=== PATIENT | female | born 1945 | race African-American/Black ===

== ENCOUNTER → 2022-03-19 23:16 | Outpatient (CLI) | payer MEDICARE, BC, SELFPAY | PROVIDERS: PCP Internal Medicine Adolescent Medicine; Visit Provider Internal Medicine Adolescent Medicine | DX: U07.1 COVID-19 (principal) | CPT/HCPCS: C9803; U0003; U0005 ==

== ENCOUNTER 2023-11-22 11:27 | Outpatient (CLI) | payer MEDICARE, BC, SELFPAY ==
--- NOTE | 2023-11-22 11:28 | US_ITS ---
FINAL REPORT CLINICAL HISTORY: EDEMA,CLAUDICATION,REST PAIN,HTN,HLD FINDINGS: ANKLE-BRACHIAL PRESSURE INDICES Pressure indices are as follows: RIGHT LOWER EXTREMITY: Ankle-brachial pressure index: 1.06 Comments: Normal LEFT LOWER EXTREMITY: Ankle-brachial pressure index: 1.07 Comments: Normal IMPRESSION: No evidence of significant obstructive peripheral vascular disease of the lower extremities Reviewed, Interpreted and Dictated by Jacquie Clemente MD Transcribed by Keiry Mckay Authenticated and . [facility]
== END 2023-11-22 23:59 ==
PROVIDERS: PCP Emergency Medicine; Visit Provider Nurse Practitioner
DX: R09.89 Other specified symptoms and signs involving the circulatory and respiratory systems (principal); R20.8 Other disturbances of skin sensation; R60.0 Localized edema; M79.672 Pain in left foot; M79.671 Pain in right foot
CPT/HCPCS: 93923

== ENCOUNTER 2023-12-09 11:20 | Outpatient (RCR) | payer MEDICARE, BC, SELFPAY ==
--- NOTE | 2023-12-09 13:07 | HMH.PTOPWND ---
Rehab Outpt Wound Evaluation Rehab OP Wound Evaluation Start: 12/09/23 12:57 Freq: Status: Active Protocol: Document 12/09/23 12:59 JUAN CARLOS (Rec: 12/09/23 13:07 PHOCAROLANN [id number]) E-signed By Mayito Serrato, PT Subjective/History History History This is the initial PT eval for Sari Solorzano, 78 yowf who presents with c/o B LE edema x ~ 1-2 mos with insidious onset of symptoms. She reports increased pain in B LE also, worse at nigh, and usually severe. She also reports increased numbness and tingling in B hands and feet. She reports hx of Non-Hodgkin 's Lymphoma requiring both chemo and XRT for treatment. She also has hx of HTN. Subjective Subjective Currently pain in B LE is 8/10 , at worst 10/10. 2+ pitting edema noted throughout B LE from mid-calf distally. No erythema noted at this time. She also reports recent hospitalization due to her edema. New diagnosis of cancer in past 12 No months? Lymphedema Eval Classification of Lymphedema Secondary Lymphedema Yes Stemmer's sign Stemmer's Sign yes Stage of Lymphedema Lymphedema stages Stage II (Pitting edema, increased fibrosis w/ decreased pitting) Skin Changes Dry Skin Yes Taut, Shiny Skin Yes Skin Folds Yes Discoloration of Skin Yes Other Changes Yes Pain Scale Pain Scale (0-10) 10 Radiation Therapy Has received radiation therapy yes Chemo Therapy Has received chemo therapy yes Affected Extremities Areas Affected by Lymphedema/Edema Right Lower Extremity,Left Lower Extremity Manual Lymphatic Drainage Treatment Area MLD Treatment Area Right Lower Extremity,Left Lower Extremity Wound Problems/Impairments Impairments Problems/Impairmments Palpation Tenderness,Impaired Range of Motion,Impaired Strength,Impaired Endurance, Impaired Transfers,Impaired Gait Pattern,Impaired Walking, Impaired Standing,Impaired Household Care,Increased Edema ,Lymphedema Present,Subjective C/O Pain,Impaired Self Care/ Self Management Prognosis Rehab Potential Good Clinical Impression Consistent with Diagnosis Yes Short Term Goals Number of Weeks 2 Decreased Palpation Tenderness Yes: 1/4 B lower legs Decrease Edema Yes: 1+ pitting edema B LE Decrease Subjective C/O Pain Yes: 6/10 B LE Patient to Understand Lymphedema Yes Treatment and Exercises Decrease Girth Measurments by (cm) Yes: B LE total by 5 cm ea. Network Project Manager Goals Number of Weeks 4 Decreased Palpation Tenderness Yes: 0/4 B LE Decrease Edema Yes: no pitting edema B LE Decrease Lymphedema Yes Decrease Subjective C/O Pain Yes: 12/07 B LE Patient to be Ind w/ HEP Yes Patient to Adhere Lymphedema Precautions Yes Decrease Girth Measurments by (cm) Yes: B LE total by 20 cm ea Outpatient Therapy Plan of Care Treatment Plan May Include Therapeutic Exercise Including Home Yes Exercise Program Manual Therapy Techniques Yes Neuromuscular Re-education Yes Therapeutic Activities to Return to Yes Previous Functional/Work Level Orthotics/Bracing/Splinting Yes Vasopneumatic Compression Pump Yes Manual Lymphatic Drainage Yes Eval/Re-Eval Yes Frequency Times per week 2 Duration Number of Weeks 4 Addendums This patient is a candidate for social No or vocational rehab? Patient/Guardian verbally acknowledges Yes understanding of treatment program and consents to further treatment? Patient/Guardian verbally acknowledges Yes understanding of diagnosis, prognosis and goals for treatment? Eval Complexity PT Charges 44488 - High Complexity PHYSICIAN CERTIFICATION: I certify the specified therapy services for Sari Solorzano are required, authorized, and reviewed every 30 days.
== END 2023-12-09 11:25 | disposition home or self-care (01) ==
LOC: PT 11:20
PROVIDERS: Visit Provider Nurse Practitioner
DX: R60.0 Localized edema (principal)
CPT/HCPCS: 97163

== ENCOUNTER 2024-01-31 15:00 | Outpatient (RCR) | payer MEDICARE, BC, SELFPAY | END 2024-01-31 15:05 | disposition home or self-care (01) | LOC: PT 15:00 | PROVIDERS: Visit Provider Emergency Medicine | DX: I89.0 Lymphedema, not elsewhere classified (principal) | CPT/HCPCS: 97140; 97163 ==

== ENCOUNTER 2024-08-04 19:15 | Outpatient (CLI) | payer MEDICARE, BC, SELFPAY ==
[2024-08-04 19:52] LABS: Microscopic, Urine URINE MICROSCOPIC (MICROSCOPIC)
[2024-08-04 19:54] LABS: Appearance,Urine CLEAR (Clear); Bilirubin,Urine Negative (Negative); Blood, Urine Negative (Negative); Color,Urine YELLOW (Yellow); Glucose,Urine (UA) Negative (Negative); Ketones,Urine Negative (Negative); Leukocyte Esterase,Urine 1+ (Negative); Nitrate,Urine POSITIVE (Negative); PH,Urine 5.5 (5.0-8.5); Protein,Urine Negative (Negative); Specific Gravity, Urine 1.025 (1.005-1.030); Urobilinogen,Urine 0.2 EU/dl (0.2)
[2024-08-04 20:08] LABS: Bacteria,Urine 4+ /lpf; Squamous Epithelial Cell,Urine 20-50 #/hpf (0-5); WBC,Urine TNTC #/hpf (0-3)
== END 2024-08-04 23:59 | disposition home or self-care (01) ==
LOC: LAB.DROPOF 19:16
PROVIDERS: PCP Family Medicine; Visit Provider Family Medicine
DX: R53.1 Weakness (principal); R30.0 Dysuria
CPT/HCPCS: 81001; 87086; 87088; 87186

== ENCOUNTER 2024-08-17 11:04 | Outpatient (POV) | payer MEDICARE, BC, SELFPAY ==
--- NOTE | 2024-08-17 11:23 | A.OFFVIS_ITS ---
HPI Data of Consult Patient: new to practice Consult date: 08/17/24 Requesting Physician: Bing Triplett APRN Primary Care Provider: Alvaro Mack MD Consult Narrative Reason for consult: Bilateral feet pain, history neck pain History of present illness: Ms. Solorzano is a 78 year old female who presents today as a new patient. She is a referral from Lianna Donnelly's office. Today she rates her pain a 9 out of 10. Patient states that most of her pain is all related to her feet and unrelated to any specific trauma or injury. She describes it as a heavy, throbbing, numbness.Patient states this has been going on for years. She states the pain is constant and does significantly interfere with her walking or activities of daily living such as cooking and cleaning. She denies any history of diabetes. Patient does states she has chronic lymphedema and has been dealing with a wound on her right lower leg since January. Patient states that this has improved that initially it was where you could even see the bone. Patient states she had been seeing Dr. Rico's office prior to being sent to [facility]. Patient states that they had discussed about sending her to a lymphedema clinic here however she never heard anything further on this. Patient does state that she used to go to [facility] and did get neck injections for her neck related issues. She states these were epidurals and they did significantly help. Patient has tried and failed conservative therapy including oral medication, heat and ice, topicals, at home stretching exercise for longer than 12 weeks. Patient is a resident at [facility]. Patient is currently managed with Percocet 5 mg 3 times a day, pregabalin 100 mg 3 times a day and Tylenol as needed. Patient has been prescribed in the past pregabalin, clonazepam and tramadol from outside providers. Her Dev has been reviewed. CC: Bing Triplett APRN [facility] Disclaimer: The information contained in this section may have been updated after the patient was seen, as this information can be updated by other users. Medical History (Updated 08/17/24 @ 12:00 by Bing Triplett APRN) Chronic kidney disease, stage 3 unspecified COPD (chronic obstructive pulmonary disease) History of fall Edema of both lower extremities Age-related physical debility Anxiety Bipolar 1 disorder Body mass index [BMI] 34.0-34.9, adult Chronic venous hypertension (idiopathic) with ulcer of right lower extremity Depression Hypertensive chronic kidney disease Non-Hodgkin lymphoma Macrocytic anemia H/O lymphoma HTN (hypertension), benign Surgical History H/O cataract extraction History of vaginal delivery H/O bilateral breast reduction surgery Family History (Updated 08/17/24 @ 11:33 by Ayanna Ortiz RN) Other Unknown family medical history Social History Smoking Status: Never smoker alcohol intake: never substance use type: denies use current occupational status: retired Travel in the last 8 weeks: None marital status: number of children: 2 Review of Systems Review of Systems Review of systems:: pertinent systems reviewed and negative unless documented below Review of systems (narrative): Review of Systems: General: No recent weight changes, no fever, no sleep disturbances Respiratory: No cough, no shortness of air, no recurring pulmonary infections Cardiovascular/peripheral vascular: No chest pain, no palpitations, no edema, no shortness of breath Gastrointestinal: No new onset incontinence, normal bowel movements reported Genitourinary: No new onset incontinence Musculoskeletal: Bilateral feet pain Psychiatric: [Normal mood/affect] Neurological: [Denies weakness in extremities], [denies balance issues] Meds Home Medications and Allergies Home Medications ?Medication ?Instructions ?Recorded ?Confirmed ?Type ipratropium 20 mcg-albuterol 100 1 puff inhalation Q6H 01/05/23 07/06/24 History mcg/actuation mist for inhalation (Combivent Respimat) divalproex 250 mg tablet,delayed 250 mg PO DAILY 06/23/24 07/06/24 History release fluticasone propionate 50 1 spray intranasal DAILY #16 grams 06/23/24 07/06/24 Rx mcg/actuation nasal spray,suspension furosemide 20 mg tablet 20 mg PO DAILY #30 tabs 06/23/24 07/06/24 Rx loratadine 10 mg tablet 10 mg PO DAILY #90 tabs 06/23/24 07/06/24 Rx melatonin 5 mg tablet 5 mg PO HS PRN sleep #90 tabs 06/23/24 07/06/24 Rx metoprolol tartrate 25 mg tablet 12.5 mg (1/2 x 25 mg) PO BID #30 06/23/24 07/06/24 Rx tabs omeprazole 20 mg capsule,delayed 20 mg PO DAILY #90 caps 06/23/24 07/06/24 Rx release potassium chloride 10 mEq 10 meq PO DAILY #30 tabs 06/23/24 07/06/24 Rx tablet,extended release quetiapine 25 mg tablet 25 mg PO DAILY #90 tabs 06/23/24 07/06/24 Rx ascorbic acid (vitamin C) 500 mg 500 mg PO BID 06/29/24 07/06/24 History capsule pregabalin 100 mg capsule 100 mg PO TID #90 caps 07/17/24 Rx clonazepam 0.5 mg tablet 0.5 mg PO BID #60 tabs 08/08/24 Rx oxycodone-acetaminophen 7.5 mg-325 1 tab PO TID #90 tabs 08/15/24 Rx mg tablet New Prescriptions to Start Prescriptions: Allergies Allergy/AdvReac Type Severity Reaction Status Date / Time codeine Allergy Verified 07/06/24 14:53 naproxen (From Anaprox) Allergy Verified 07/06/24 14:53 latex AdvReac Mild Verified 07/06/24 14:53 Objective Narrative: Physical Exam: General: Alert and oriented x3, no acute distress, pleasant and cooperative Lungs: Respirations even and unlabored, symmetrical chest expansion Eyes: PERRL Musculoskeletal: Flexion and extension of bilateral ankles somewhat guarded secondary to pain, decreased sensation to light touch and decreased reflexes bilaterally, moderate swelling noted to the right leg down to her foot Neurological: Speech clear, no gross sensory deficit Assessment and Plan *Assessment and plan (1) Peripheral neuropathy: Status: Acute Category: Medical Code(s): G62.9 - Polyneuropathy, unspecified (2) Decreased sensation of lower extremity: Status: Acute Category: Medical Code(s): R20.8 - Other disturbances of skin sensation (3) Lymphedema of both lower extremities: Status: Acute Category: Medical Code(s): I89.0 - Lymphedema, not elsewhere classified Plan Patient is experiencing significant pain in her bilateral feet with limited range of motion of her ankles and decreased sensation to light touch with decreased reflexes bilaterally. Patient does have significant swelling to the right lower extremity down to her foot where she does have a active wound. I did discuss with the patient due to the wound being so close to where her injection would be that I would hold off on any injections for the right extremity. Patient acknowledges understanding agrees with plan of care. I did discuss with the patient that I do believe she would benefit from posterior tibial nerve blocks. Risk and benefits were discussed with the patient and she would like to proceed forward with this plan of care. Patient has tried and failed conservative therapy including oral medications, heat and ice, topicals, at home stretching and exercise for longer than 12 weeks. I will order the patient a compounded cream and schedule her for a left posterior tibial nerve block. Patient has been instructed to contact the clinic with any concerns before the next appointment. Dr. Fung has reviewed this note and agrees with this plan of care. This note was dictated using voice recognition software and make contain errors or omissions. All injections are used with Lidocaine, Bupivacaine and Depo Medrol. Occasionally urine drug screen is needed to verify patient's compliance with our office pain contract. This is ordered based off specific treatments related to chronic pain with the potential to abuse certain medications.
[2024-08-17 11:33] VITALS: BP 96/50; PULSE 77; RESP 18; O2SAT 98; BMI 32.8
== END 2024-08-17 23:59 | disposition home or self-care (01) ==
PROVIDERS: PCP Family Medicine; Visit Provider Nurse Practitioner Family
DX: G62.9 Polyneuropathy, unspecified (principal); R20.8 Other disturbances of skin sensation; I89.0 Lymphedema, not elsewhere classified; Z73.89 Other problems related to life management difficulty
CPT/HCPCS: 99202; G0463

== ENCOUNTER 2024-09-12 10:45 | Day surgery (SDC) | payer MEDICARE, BC, SELFPAY ==
[2024-09-12 11:07] VITALS: BP 109/64; PULSE 95; RESP 18; TEMP 36.6; O2SAT 97; BMI 53.5
[2024-09-12 11:27] VITALS: BP 110/70; PULSE 94; RESP 18; O2SAT 93
[2024-09-12] MEDS: BUPIVACAINE 0.25% 10ML INJ 25 MG IJ (11:31)
[2024-09-12] MEDS: methylPREDNISolone ACETATE 80MG/ML VIAL 80 MG (11:31)
[2024-09-12] MEDS: LIDOCAINE 1% 5ML PF VIAL 5 ML (11:32)
--- NOTE | 2024-09-12 11:39 | P.PCN_ITS ---
Procedure Date: 09/12/24 Time: 11:00 Anesthesiologist:: Jasson Patton CRNA Complications:: None Pre-procedure Diagnosis:: Chronic left foot pain. Insulin-dependent diabetic. Diabetic neuropathy. Post-procedure Diagnosis:: Same. Indications for Procedure:: Patient is a very pleasant 78-year-old female who comes our clinic today for a left posterior tibial nerve block. Patient describes left foot pain as constant, dull, aching. She rates the pain 7/10. Patient presents in a wheelchair today. She resides in a group home. She status post amputation of toes bilateral feet. Procedure Details:: Details of procedure explained to the patient. The patient taken procedure room placed in the sitting position. The area over the left lateral malleolus was cleansed using chlorhexidine as a cleansing solution. Using a 25-gauge inch and half needle the left posterior tibial nerve was accessed with ease posterior to the left malleus. After negative aspiration, 8 cc of a solution containing 4 cc of 1% lidocaine 4 cc of 0.25% Marcaine and 40 mg of Depo-Medrol was injected. Patient tolerated procedure without difficulty. No complications. Plan and Disposition:: Patient was discharged without incident.
== END 2024-09-12 11:27 | disposition home or self-care (01) ==
PROVIDERS: PCP Family Medicine; Visit Provider Nurse Anesthetist, Certified Registered
DX: M79.672 Pain in left foot (principal); G89.29 Other chronic pain; E11.40 Type 2 diabetes mellitus with diabetic neuropathy, unspecified; Z79.4 Long term (current) use of insulin
CPT/HCPCS: 64450; J1010

== ENCOUNTER 2024-09-25 09:15 | Outpatient (POV) | payer MEDICARE, BC, SELFPAY ==
--- NOTE | 2024-09-25 10:17 | A.OFFVIS_ITS ---
[facility] Disclaimer: The information contained in this section may have been updated after the patient was seen, as this information can be updated by other users. Medical History (Updated 09/06/24 @ 17:30 by Alvaro Mack MD) Chronic kidney disease, stage 3 unspecified COPD (chronic obstructive pulmonary disease) History of fall Edema of both lower extremities Age-related physical debility Anxiety Bipolar 1 disorder Body mass index [BMI] 34.0-34.9, adult Chronic venous hypertension (idiopathic) with ulcer of right lower extremity Depression Hypertensive chronic kidney disease Non-Hodgkin lymphoma Macrocytic anemia H/O lymphoma HTN (hypertension), benign Surgical History H/O cataract extraction History of vaginal delivery H/O bilateral breast reduction surgery Family History Other Unknown family medical history Social History Smoking Status: Never smoker alcohol intake: never substance use type: denies use current occupational status: retired Travel in the last 8 weeks: None marital status: number of children: 2 PM Subjective & Objective Subjective Subjective:: Patient is a pleasant 78-year-old for male who presents today for follow-up of left posterior tibial nerve block on 09/12/2024. Today she rates her pain a 4 out of 10. Patient states that she has had at least 80% improvement along that left side and that the pain is definitely not as constant and not as severe. She does state that she does have a lot of issues still along the right side and states the wound on that leg is still improving however has not officially healed just yet. Patient is a resident of [facility] and does have wound management coming in daily. Patient states she never did get the compounded cream that we had ordered her. Patient is currently managed with Percocet 5 mg 3 times a day, pregabalin 100 mg 3 times a day and Tylenol as needed. Patient does state that they did have a cream at the facility that she has tried and it does help. Patient still denies any diabetes history. She states she has recently had updated labs. Her Dev has been reviewed and is appropriate. Review of Systems: General: No recent weight changes, no fever, no sleep disturbances Respiratory: No cough, no shortness of air, no recurring pulmonary infections Cardiovascular/peripheral vascular: No chest pain, no palpitations, no edema, no shortness of breath Gastrointestinal: No new onset incontinence, normal bowel movements reported Genitourinary: No new onset incontinence Musculoskeletal: Bilateral feet pain Psychiatric: [Normal mood/affect] Neurological: [Denies weakness in extremities], [denies balance issues] Pain at rest (0-10 scale): 4 Objective Objective:: Physical Exam: General: Alert and oriented x3, no acute distress, pleasant and cooperative Lungs: Respirations even and unlabored, symmetrical chest expansion Eyes: PERRL Musculoskeletal: Altered sensation to light touch to bilateral feet Neurological: Speech clear, no gross sensory deficit Has patient had previous pain injection?: Yes Percent improvement in pain since last injection: 80% Conservative treatment options previously tried: Home exercise plan Length of treatment: Longer than 12 weeks Meds Home Medications and Allergies Home Medications ?Medication ?Instructions ?Recorded ?Confirmed ?Type ipratropium 20 mcg-albuterol 100 1 puff inhalation Q6H 01/05/23 09/06/24 History mcg/actuation mist for inhalation (Combivent Respimat) divalproex 250 mg tablet,delayed 250 mg PO DAILY 06/23/24 09/06/24 History release fluticasone propionate 50 1 spray intranasal DAILY #16 grams 06/23/24 09/06/24 Rx mcg/actuation nasal spray,suspension furosemide 20 mg tablet 20 mg PO DAILY #30 tabs 06/23/24 09/06/24 Rx loratadine 10 mg tablet 10 mg PO DAILY #90 tabs 06/23/24 09/06/24 Rx melatonin 5 mg tablet 5 mg PO HS PRN sleep #90 tabs 06/23/24 09/06/24 Rx metoprolol tartrate 25 mg tablet 12.5 mg (1/2 x 25 mg) PO BID #30 06/23/24 09/06/24 Rx tabs omeprazole 20 mg capsule,delayed 20 mg PO DAILY #90 caps 06/23/24 09/06/24 Rx release potassium chloride 10 mEq 10 meq PO DAILY #30 tabs 06/23/24 09/06/24 Rx tablet,extended release quetiapine 25 mg tablet 25 mg PO DAILY #90 tabs 06/23/24 09/06/24 Rx ascorbic acid (vitamin C) 500 mg 500 mg PO BID 06/29/24 09/06/24 History capsule pregabalin 100 mg capsule 100 mg PO TID #90 caps 07/17/24 09/06/24 Rx clonazepam 0.5 mg tablet 0.5 mg PO BID #60 tabs 09/05/24 09/06/24 Rx oxycodone-acetaminophen 7.5 mg-325 1 tab PO TID #90 tabs 09/19/24 Rx mg tablet New Prescriptions to Start Prescriptions: Allergies Allergy/AdvReac Type Severity Reaction Status Date / Time codeine Allergy Verified 09/06/24 17:25 naproxen (From Anaprox) Allergy Verified 09/06/24 17:25 latex AdvReac Mild Verified 09/06/24 17:25 Assessment and Plan *Assessment and plan (1) Peripheral neuropathy: Status: Acute Category: Medical Code(s): G62.9 - Polyneuropathy, unspecified Plan I did discuss with the patient that I will get a copy of her last labs there at [facility] just to see what her A1c has been. Patient does not have any diabetes medication in her record. Patient was counseled that we can always do the posterior tibial nerve block on the right side once the wound has healed. I will follow-up with her in 6 weeks. I will also reach out to the compound pharmacy and removal and see if they can send this medication. Patient agrees with this plan of care. Patient has been instructed to contact the clinic with any concerns before the next appointment. Dr. Fung has reviewed this note and agrees with this plan of care. This note was dictated using voice recognition software and make contain errors or omissions. All injections are used with Lidocaine, Bupivacaine and Depo Medrol. Occasionally urine drug screen is needed to verify patient's compliance with our office pain contract. This is ordered based off specific treatments related to chronic pain with the potential to abuse certain medications.
[2024-09-25 11:57] VITALS: BP 123/85; PULSE 81; RESP 16; O2SAT 96; BMI 32.8
== END 2024-09-25 23:59 | disposition home or self-care (01) ==
LOC: SC.PAIN 09:16
PROVIDERS: PCP Family Medicine; Visit Provider Nurse Practitioner Family
DX: G62.9 Polyneuropathy, unspecified (principal)
CPT/HCPCS: 99212; G0463

== ENCOUNTER 2024-10-02 19:58 | Observation (INO) | payer MEDICARE, BC, SELFPAY ==
[2024-10-02] VITALS (7 sets, daily range): BP systolic 102–120; BP diastolic 60–69; PULSE 78–97; RESP 10–22; TEMP 36.6–37.5; O2SAT 97–100; BMI 33.7
--- NOTE | 2024-10-02 20:03 | XR_ITS ---
PROCEDURE INFORMATION: Exam: XR Chest Exam date and time: 10/02/2024 9:06 PM Age: 78 years old Clinical indication: Dyspnea TECHNIQUE: Imaging protocol: Radiologic exam of the chest. Views: 1 view. COMPARISON: No relevant prior studies available. FINDINGS: Tubes, catheters and devices: Left subclavian approach central venous catheter tip projected at atrial caval junction. Lungs: Unremarkable. No consolidation. Pleural spaces: Unremarkable. No pleural effusion. No pneumothorax. Heart/Mediastinum: Unremarkable. No cardiomegaly. Bones/joints: Unremarkable. IMPRESSION: No acute findings.
--- NOTE | 2024-10-02 20:03 | CT_ITS ---
PROCEDURE INFORMATION: Exam: CT Head Without Contrast Exam date and time: 10/02/2024 9:14 PM Age: 78 years old Clinical indication: Altered mental status/memory loss; Additional info: AMS TECHNIQUE: Imaging protocol: Computed tomography of the head without contrast. Radiation optimization: All CT scans at this facility use at least one of these dose optimization techniques: automated exposure control; mA and/or kV adjustment per patient size (includes targeted exams where dose is matched to clinical indication); or iterative reconstruction. COMPARISON: No relevant prior studies available. FINDINGS: Brain: No hemorrhage. Underlying periventricular white matter changes and parenchymal cortical volume loss. No mass effect. Cerebral ventricles: No ventriculomegaly. Paranasal sinuses: Visualized sinuses are unremarkable. No fluid levels. Mastoid air cells: Visualized mastoid air cells are well aerated. Bones: Unremarkable. No acute fracture. Soft tissues: Unremarkable. IMPRESSION: No acute intracranial abnormality.
--- NOTE | 2024-10-02 20:09 | HMH.EDGENADL ---
Discharge Plan Disposition Patient Disposition: Admitted Prescriptions Prescriptions: No Action Combivent Respimat 20-100 mcg/actuation mist 1 puff inhalation Q6H ascorbic acid (vitamin C) 500 mg capsule 500 mg PO BID divalproex 250 mg tablet,delayed release (DR/EC) 250 mg PO DAILY Patient Comments: TAKE 1 TABLET BY MOUTH TWICE DAILY fluticasone propionate 50 mcg/actuation spray,suspension 1 spray intranasal DAILY Qty: 16 0RF furosemide 20 mg tablet 20 mg PO DAILY Qty: 30 0RF potassium chloride 10 mEq tablet extended release 10 meq PO DAILY Qty: 30 0RF loratadine 10 mg tablet 10 mg PO DAILY Qty: 90 0RF metoprolol tartrate 25 mg tablet 12.5 mg PO BID Qty: 30 0RF melatonin 5 mg tablet 5 mg PO HS PRN (Reason: sleep) Qty: 90 0RF omeprazole 20 mg capsule,delayed release(DR/EC) 20 mg PO DAILY Qty: 90 0RF quetiapine 25 mg tablet 25 mg PO DAILY Qty: 90 0RF pregabalin 100 mg capsule 100 mg PO TID Qty: 90 2RF clonazepam 0.5 mg tablet 0.5 mg PO BID Qty: 60 2RF oxycodone-acetaminophen 7.5-325 mg tablet 1 tab PO TID Qty: 90 0RF Clinical Impressions Clinical Impression: Acute encephalopathy, Acute UTI Instructions Patient Instructions: DI for Altered Mental Status Print Language Print Language: Moroccan Discharge ED Provider: Christin Farley General Adult HPI General Chief complaint: Altered Mental Status Stated complaint: Altered Mental Status Time Seen by Provider: 10/02/24 19:58 History of Present Illness HPI narrative: Patient is a 78-year-old female brought in by EMS for acute encephalopathy sent in from her [facility], [facility]. Patient is significantly altered and history is unable to be obtained from her. According to the [facility] the patient is normally alert oriented answering questions appropriately. Related Data Home Medications ?Medication ?Instructions ?Recorded ?Confirmed ipratropium 20 mcg-albuterol 100 1 puff inhalation Q6H 01/05/23 09/25/24 mcg/actuation mist for inhalation (Combivent Respimat) divalproex 250 mg tablet,delayed 250 mg PO DAILY 06/23/24 09/25/24 release ascorbic acid (vitamin C) 500 mg 500 mg PO BID 06/29/24 09/25/24 capsule Previous Rx's ?Medication ?Instructions ?Recorded fluticasone propionate 50 1 spray intranasal DAILY #16 grams 06/23/24 mcg/actuation nasal spray,suspension furosemide 20 mg tablet 20 mg PO DAILY #30 tabs 06/23/24 loratadine 10 mg tablet 10 mg PO DAILY #90 tabs 06/23/24 melatonin 5 mg tablet 5 mg PO HS PRN sleep #90 tabs 06/23/24 metoprolol tartrate 25 mg tablet 12.5 mg (1/2 x 25 mg) PO BID #30 06/23/24 tabs omeprazole 20 mg capsule,delayed 20 mg PO DAILY #90 caps 06/23/24 release potassium chloride 10 mEq 10 meq PO DAILY #30 tabs 06/23/24 tablet,extended release quetiapine 25 mg tablet 25 mg PO DAILY #90 tabs 06/23/24 pregabalin 100 mg capsule 100 mg PO TID #90 caps 07/17/24 clonazepam 0.5 mg tablet 0.5 mg PO BID #60 tabs 09/05/24 oxycodone-acetaminophen 7.5 mg-325 1 tab PO TID #90 tabs 09/19/24 mg tablet Allergies Allergy/AdvReac Type Severity Reaction Status Date / Time codeine Allergy Verified 09/06/24 17:25 naproxen (From Anaprox) Allergy Verified 09/06/24 17:25 latex AdvReac Mild Verified 09/06/24 17:25 PFSH PFS Disclaimer: The information contained in this section may have been updated after the patient was seen, as this information can be updated by other users. Medical History (Updated 10/02/24 @ 21:47 by Christin Farley MD) Chronic kidney disease, stage 3 unspecified COPD (chronic obstructive pulmonary disease) History of fall Edema of both lower extremities Age-related physical debility Anxiety Bipolar 1 disorder Body mass index [BMI] 34.0-34.9, adult Chronic venous hypertension (idiopathic) with ulcer of right lower extremity Depression Hypertensive chronic kidney disease Non-Hodgkin lymphoma Macrocytic anemia H/O lymphoma HTN (hypertension), benign Surgical History H/O cataract extraction History of vaginal delivery H/O bilateral breast reduction surgery Family History Other Unknown family medical history Social History Smoking Status: Never smoker alcohol intake: never substance use type: denies use current occupational status: other Travel in the last 8 weeks: None marital status: number of children: 2 Have you lived/traveled outside US in past 30 days?: No Contact w/someone who lives/traveled outside US past 30 days?: No Exposure to someone with infectious disease in past 14 days?: No Do you have a fever (greater than 100.4 F or 38 C)?: No Have you tested positive for COVID-19: No Exposed to someone with COVID-19 in past 14 days?: No Do you have a sore throat?: No Do you have a cough?: No Do you have any weakness?: No Do you have any diarrhea?: No Are you experiencing any unusual bleeding?: No Do you have any muscle aches/pain?: No Do you have any abdominal pain?: No Are you experiencing loss of taste or smell?: No Other Medical History Have you received the Flu Vaccine for this season: Yes Have you received the Pneumonia Vaccine: Yes ROS Obtained: Yes All systems reviewed & no additional complaints except as documented Physical Exam General General appearance: alert and in no apparent distress Respiratory Respiratory exam: Present normal lung sounds bilaterally; Absent respiratory distress Cardiovascular Cardiovascular exam: Present regular rate and normal rhythm Abdominal Exam Abdominal exam: Present soft; Absent distention Neurological Exam Neurological exam: Present alert, CN II-XII intact and other (Patient has nonfocal she is speaking fluently but is confused GCS of 14 otherwise nonfocal); Absent oriented X3 or motor sensory deficit Medical Decision Making Medical Records Screening: Per USPSTF and CDC recommendations, given the prevalence of disease in our region, it is our hospital?s policy to screen for HIV and viral Hepatitis for all patients aged 18 and over and those with ongoing risk factors. Dev Inquiry Pt receiving controlled substance: No Vital Signs: 10/02/24 19:58 10/02/24 20:00 10/02/24 20:51 Temperature 99.5 F Temperature Source Oral Pulse Rate 92 H Pulse Rate [Right] 97 H Respiratory Rate 22 16 Blood Pressure 108/60 L 102/62 L Blood Pressure [Right Arm] 102/63 L Blood Pressure Mean [Right Arm] 76 02 Sat by Pulse Oximetry 97 98 Oxygen Delivery Method Room Air 10/02/24 21:00 Temperature Temperature Source Pulse Rate 85 Pulse Rate [Right] Respiratory Rate 13 Blood Pressure 116/65 Blood Pressure [Right Arm] Blood Pressure Mean [Right Arm] 02 Sat by Pulse Oximetry 99 Oxygen Delivery Method Lab Data Lab results reviewed: Yes I reviewed the patient's lab results. Lab Results 10/02/24 20:07: WBC 8.1, RBC 3.64 L, Hgb 11.6 L, Hct 35.7 L, MCV 98.1, MCH 31.9 H, MCHC 32.5, RDW 12.5, Plt Count 281, MPV 10.0, Neut % (Auto) 46.7, Lymph % (Auto) 34.8, [place] % (Auto) 11.7 H, Eos % (Auto) 5.8, Baso % (Auto) 0.5, Neut # (Auto) 3.8, Lymph # (Auto) 2.8, [place] # (Auto) 1.0, Eos # (Auto) 0.5 H, Baso # (Auto) 0.0, Sodium 139, Potassium 4.4, Chloride 103, Carbon Dioxide 26, Anion Gap 14.4, BUN 56 H, Creatinine 1.80 H, Estimated Creat Clear 42, Estimated GFR 27 L, Est GFR ( Amer) 33 L, Glucose 99, Calcium 8.9, Total Bilirubin 0.6, AST 28, ALT 14, Alkaline Phosphatase 109, Troponin I < 0.01, Total Protein 5.6 L, Albumin 3.7, Globulin 1.9, Albumin/Globulin Ratio 1.9 H 10/02/24 20:21: SARS-CoV-2 (PCR) Not detected, Influenza A Untype (PCR) Not detected, Influenza Type B (PCR) Not detected 10/02/24 20:32: Urine Color Dark yellow, Urine Appearance Cloudy, Urine pH 6.0, Ur Specific [place] 1.025, Urine Protein 2+ A, Urine Glucose (UA) Negative, Urine Ketones Trace, Urine Blood 2+ A, Urine Nitrate Positive A, Urine Bilirubin Negative, Urine Urobilinogen 1.0, Ur Leukocyte Esterase 3+ A 10/02/24 20:33: VBG pH 7.35, VBG pCO2 41.9, VBG pO2 107.0 H, VBG HCO3 22.4 L, VBG Total CO2 23.6, VBG O2 Saturation 97.6 H, VBG Base Excess -3.3 L, VBG Lactic Acid 1.3 10/02/24 20:07 10/02/24 20:07 Orders (Tests/Meds): ED MEDICATIONS Generic Name Dose Route Start Last Admin Trade Name Freq PRN Reason Stop Dose Admin Ceftriaxone Sodium 1 gm/ 50 mls @ 100 mls/hr 10/02/24 21:45 Sodium Chloride IV 10/02/24 22:14 ONCE ONE Discontinued Medications Generic Name Dose Route Start Last Admin Trade Name Freq PRN Reason Stop Dose Admin Lactated Ringer's 1,000 mls @ 999 mls/hr 10/02/24 20:15 10/02/24 20:43 Lactated Ringer's 1000 Ml Bag IV 10/02/24 21:15 999 mls/hr .Q1H1M FREDIS Administration ORDERS Category Date Time Status CT head/brain wo con Stat Cat Scan 10/02/24 20:03 Taken CXR --portable [XR chest portable] Stat Exams 10/02/24 20:03 Taken CBC w/Auto Diff [Complete Blood Count Auto Diff] Stat Lab 10/02/24 20:07 Completed CMP [Comprehensive Metabolic Panel] Stat Lab 10/02/24 20:07 Completed HIV Combo Stat Lab 10/02/24 20:07 Received Hepatitis C Ab Qual. W/ RFX Stat Lab 10/02/24 20:07 Received Lactate Venous Stat Lab 10/02/24 20:33 Ordered Rapid PCR Covid and Flu A/B Stat Lab 10/02/24 20:21 Completed Trop I [Troponin I] Stat Lab 10/02/24 20:07 Completed Troponin I Q3H Lab 10/02/24 23:15 Ordered Troponin I Q3H Lab 10/03/24 02:15 Ordered UA [Urinalysis and Microscopic] Stat Lab 10/02/24 20:32 Results Blood Culture Stat Micro 10/02/24 20:07 Received Urine Culture Stat Micro 10/02/24 20:32 Received Venous Blood Gas Stat RT 10/02/24 20:33 Completed Medical Decision Narrative: Acutely altered 78-year-old female with nonsensical conversations at the moment this does not appear to be an aphasia rather likely acute encephalopathy suspect most likely from a urinary tract infection or other infectious etiology as her noninvasive temperature was near 100. Will get a straight cath urinalysis chest x-ray COVID flu analysis CT scan of the head basic metabolic workup and reassess. CT scans and chest x-ray performed I personally interpreted shows no intracranial abnormality or no cardiopulmonary emergency. Patient's labs demonstrate a significant urinary tract infection. No other significant abnormality she does have a creatinine of 1.8 but no baseline creatinine to compare to. Rocephin was administered in the emergency department patient was admitted to hospital medicine for further evaluation management. Critical Care Critical Care Time Critical Care Time: Yes Attestation: On 10/02/24, the high probability of a clinically significant, sudden or life threatening deterioration of the following system(s) required my full and direct attention, intervention and personal management. The time I documented below is in addition to time spent performing reported procedures but includes the following listed in this critical care notation. Total Time Total Critical Care Time: 35
[2024-10-02 20:28] LABS: Coronavirus 19, PCR Not Detected (NotDetected); Influenza A, PCR Not Detected (NotDetected); Influenza B, PCR Not Detected (NotDetected)
[2024-10-02 20:33] LABS: Lactate Venous 1.3 mmol/L (0.4-2.0); VBG Base Excess -3.3 mmol/L (-2.4-2.3); VBG HCO3 22.4 mmol/L (23-30); VBG Oxygen Saturation 97.6 % (50-70); VBG PCO2 41.9 mmol/L (35-51); VBG PH 7.35 mmol/L (7.31-7.41); VBG Total CO2 23.6 mmol/L (23-27)
[2024-10-02 20:42] LABS: Microscopic, Urine URINE MICROSCOPIC (MICROSCOPIC)
[2024-10-02 20:42] LABS: Albumin Level 3.7 g/dl (3.5-5.0); Chloride 103 mmol/L (98-107); Potassium 4.4 mmoL/L (3.5-5.1); Sodium 139 mmol/L (136-145)
[2024-10-02] MEDS: LACTATED RINGERS 1000ML 1,000 ML 999 ML IV (20:43)
[2024-10-02 20:45] LABS: Alanine Aminotransferase 14 U/L (12-78); Albumin/Globulin Ratio 1.9 (1.1-1.8); Alkaline Phosphatase 109 U/L (38-126); Anion Gap 14.4 mEq/L (5-15); Aspartate Amino Transferase 28 U/L (14-36); Basophils % 0.5 % (0.1-2.0); Bilirubin,Total 0.6 mg/dl (0.2-1.3); Blood Urea Nitrogen 56 mg/dl (7-17); Calcium 8.9 mg/dl (8.4-10.2); Carbon Dioxide 26 mmol/L (22.0-30.0); Creatinine Clearance Estimated 42 mL/min (50-200); Eosinophils # 0.5 K/mm3 (0.0-0.4); Eosinophils % 5.8 % (0.1-12.0); Estimated Glomerular Filt Rate 27 ml/min (>60); GFR (African American) 33 ML/MIN (>60); Globulin 1.9 g/dL (1.3-3.2); Glucose 99 mg/dl (74-100); Hematocrit 35.7 % (37.0-47.0); Hemoglobin 11.6 g/dL (12.2-16.2); Lymphocytes # 2.8 K/mm3 (0.7-4.5); Lymphocytes % 34.8 % (10-50); Mean Corpuscular HGB Conc 32.5 g/dL (31.8-35.4); Mean Corpuscular Hemoglobin 31.9 pg (27.0-31.2); Mean Corpuscular Volume 98.1 fl (81-99); Monocytes % 11.7 % (1.7-9.3); Neutrophils # 3.8 K/mm3 (1.8-7.8); Neutrophils % 46.7 % (37.0-80.0); Platelet Count 281 K/mm3 (142-424); Red Blood Count 3.64 M/mm3 (4.20-5.40); Red Cell Distribution Width 12.5 % (11.5-17.5); Total Protein,Serum 5.6 g/dl (6.3-8.2); White Blood Count 8.1 K/mm3 (4.8-10.8)
[2024-10-02 20:46] LABS: Appearance,Urine CLOUDY (Clear); Bilirubin,Urine Negative (Negative); Blood, Urine 2+ (Negative); Color,Urine DARK YELLOW (Yellow); Glucose,Urine (UA) Negative (Negative); Ketones,Urine TRACE (Negative); Leukocyte Esterase,Urine 3+ (Negative); Nitrate,Urine POSITIVE (Negative); Protein,Urine 2+ (Negative); Specific Gravity, Urine 1.025 (1.005-1.030)
[2024-10-02 21:09] LABS: Troponin I < 0.01 ng/ml (0.00-0.034)
--- NOTE | 2024-10-02 21:47 | PC.NURSE ---
Patient was given a warm blanket.
[2024-10-02 22:24] LABS: HIV Combo NEGATIVE (Negative)
--- NOTE | 2024-10-02 22:24 | PC.NURSE ---
patient received a bed bath on admission. meplex placed on cocyx
[2024-10-02 22:31] LABS: Hepatitis C Ab Qual. W/ RFX NEGATIVE (Negative)
[2024-10-02 22:42] LABS: Bacteria,Urine 3+ /lpf; Squamous Epithelial Cell,Urine Occasional #/hpf (0-5); WBC,Urine 50-100 #/hpf (0-3)
--- NOTE | 2024-10-02 22:52 | PC.NURSE ---
spoke with DUNCAN Gama at [facility] to inform her of admission
[2024-10-02] MEDS: CEFTRIAXONE SODIUM 1 GM in 0.9 % SODIUM CHLORIDE 50 ML IV (23:15)
--- NOTE | 2024-10-02 23:42 | PC.NURSE ---
Attempted to call family for code status confirmation, no answer at this time.
[2024-10-03 00:17] LABS: Troponin I < 0.01 ng/ml (0.00-0.034)
[2024-10-03 03:30] VITALS: BP 109/65; PULSE 81; RESP 18; TEMP 36.3; O2SAT 98; BMI 33.2
--- NOTE | 2024-10-03 03:40 | P.HP_ITS ---
History of Present Illness *Admission Date: 10/02/24 *Reason for visit:: AMS *History of present illness: The patient is a 78-year-old female from [facility], brought in by EMS for acute encephalopathy. Review shows medical history of COPD, morbid obesity, chronic venous hypertension, depressive, hypertensive chronic kidney disease, NHL, chronic edema of bilateral lower extremities. According to retirement staff, she is normally alert and oriented but became significantly confused, speaking nonsensically over the past day. She is unable to provide her own history. Upon arrival, she was afebrile but had a non-invasive temperature near 100?F. Blood pressure and heart rate were stable, and she maintained adequate oxygenation on room air. Examination revealed no focal neurological deficits but showed disorientation and an inability to follow commands. Initial workup was notable for an elevated BUN (56) and creatinine (1.8) without a known baseline, raising concern for acute kidney injury. Urinalysis demonstrated findings consistent with a urinary tract infection (positive nitrites, leukocyte esterase, and 2+ blood). A CT scan of the head and chest X- ray showed no acute intracranial abnormalities or cardiopulmonary pathology. She was started on IV ceftriaxone in the emergency department for suspected urosepsis. Additional findings include a stage II pressure ulcer on her buttock and a chronic venous stasis ulcer on her right lower extremity. Given her altered mental status, infection, and possible renal dysfunction, she was admitted for further management. [facility] Disclaimer: The information contained in this section may have been updated after the patient was seen, as this information can be updated by other users. Medical History Chronic kidney disease, stage 3 unspecified COPD (chronic obstructive pulmonary disease) History of fall Edema of both lower extremities Age-related physical debility Anxiety Bipolar 1 disorder Body mass index [BMI] 34.0-34.9, adult Chronic venous hypertension (idiopathic) with ulcer of right lower extremity Depression Hypertensive chronic kidney disease Non-Hodgkin lymphoma Macrocytic anemia H/O lymphoma HTN (hypertension), benign Surgical History H/O cataract extraction History of vaginal delivery H/O bilateral breast reduction surgery Family History Other Unknown family medical history Social History Smoking Status: Never smoker alcohol intake: never substance use type: denies use current occupational status: other Travel in the last 8 weeks: None marital status: number of children: 2 Have you lived/traveled outside US in past 30 days?: No Contact w/someone who lives/traveled outside US past 30 days?: No Exposure to someone with infectious disease in past 14 days?: No Do you have a fever (greater than 100.4 F or 38 C)?: No Have you tested positive for COVID-19: No Exposed to someone with COVID-19 in past 14 days?: No Do you have a sore throat?: No Do you have a cough?: No Do you have any weakness?: No Do you have any diarrhea?: No Are you experiencing any unusual bleeding?: No Do you have any muscle aches/pain?: No Do you have any abdominal pain?: No Are you experiencing loss of taste or smell?: No Other Medical History Have you received the Flu Vaccine for this season: Yes Have you received the Pneumonia Vaccine: Yes Review of Systems Review of Systems Review of systems (narrative): 13 point review of systems negative outside HPI Meds Home Medications and Allergies Home Medications ?Medication ?Instructions ?Recorded ?Confirmed ?Type divalproex 250 mg tablet,delayed 250 mg PO DAILY 06/23/24 10/02/24 History release fluticasone propionate 50 1 spray intranasal DAILY #16 grams 06/23/24 10/02/24 Rx mcg/actuation nasal spray,suspension loratadine 10 mg tablet 10 mg PO DAILY #90 tabs 06/23/24 10/02/24 Rx metoprolol tartrate 25 mg tablet 12.5 mg (1/2 x 25 mg) PO BID #30 06/23/24 10/02/24 Rx tabs omeprazole 20 mg capsule,delayed 20 mg PO DAILY #90 caps 06/23/24 10/02/24 Rx release potassium chloride 10 mEq 10 meq PO DAILY #30 tabs 06/23/24 10/02/24 Rx tablet,extended release ascorbic acid (vitamin C) 500 mg 500 mg PO BID 06/29/24 10/02/24 History capsule pregabalin 100 mg capsule 100 mg PO TID #90 caps 07/17/24 10/02/24 Rx clonazepam 0.5 mg tablet 0.5 mg PO BID #60 tabs 09/05/24 10/02/24 Rx oxycodone-acetaminophen 7.5 mg-325 1 tab PO TID #90 tabs 09/19/24 10/02/24 Rx mg tablet loperamide 2 mg capsule 2 mg PO Q3HP PRN Diarrhea 10/02/24 10/03/24 History ondansetron 4 mg disintegrating 4 mg PO Q6HP PRN Nausea And 10/02/24 10/03/24 History tablet Vomiting acetaminophen 325 mg tablet 650 mg PO QIDP PRN pain and fever 10/03/24 10/03/24 History (Tylenol) acetaminophen 500 mg tablet 500 mg PO TID 10/03/24 10/03/24 History furosemide 40 mg tablet 40 mg PO DAILY 10/03/24 10/03/24 History melatonin 5 mg tablet 5 mg PO HS 10/03/24 10/02/24 History quetiapine 25 mg tablet 12.5 mg PO HS 10/03/24 10/03/24 History New Prescriptions to Start Prescriptions: Allergies Allergy/AdvReac Type Severity Reaction Status Date / Time codeine Allergy Verified 09/06/24 17:25 naproxen (From Anaprox) Allergy Verified 09/06/24 17:25 latex AdvReac Mild Verified 09/06/24 17:25 Exam Data for Last 24 hours Vital signs and Labs for Last 24 Hours: Temp Pulse Resp BP Pulse Ox O2 Del Method O2 Flow Rate 97.3 F L 81 18 109/65 L 98 Nasal Cannula 2 10/03/24 03:30 10/03/24 03:30 10/03/24 03:30 10/03/24 03:30 10/03/24 03:30 10/03/24 03:30 10/03/24 03:30 Laboratory Results - last 24 hr 10/02/24 20:07: WBC 8.1, RBC 3.64 L, Hgb 11.6 L, Hct 35.7 L, MCV 98.1, MCH 31.9 H, MCHC 32.5, RDW 12.5, Plt Count 281, MPV 10.0, Neut % (Auto) 46.7, Lymph % (Auto) 34.8, [place] % (Auto) 11.7 H, Eos % (Auto) 5.8, Baso % (Auto) 0.5, Neut # (Auto) 3.8, Lymph # (Auto) 2.8, [place] # (Auto) 1.0, Eos # (Auto) 0.5 H, Baso # (Auto) 0.0, Sodium 139, Potassium 4.4, Chloride 103, Carbon Dioxide 26, Anion Gap 14.4, BUN 56 H, Creatinine 1.80 H, Estimated Creat Clear 42, Estimated GFR 27 L, Est GFR ( Amer) 33 L, Glucose 99, Calcium 8.9, Total Bilirubin 0.6, AST 28, ALT 14, Alkaline Phosphatase 109, Troponin I < 0.01, Total Protein 5.6 L, Albumin 3.7, Globulin 1.9, Albumin/Globulin Ratio 1.9 H, HCV Ab NARAYAN w/Rflx PCR Qn Negative, HIV Ag/Ab Combo Qual Negative 10/02/24 20:21: SARS-CoV-2 (PCR) Not detected, Influenza A Untype (PCR) Not detected, Influenza Type B (PCR) Not detected 10/02/24 20:32: Urine Color Dark yellow, Urine Appearance Cloudy, Urine pH 6.0, Ur Specific [place] 1.025, Urine Protein 2+ A, Urine Glucose (UA) Negative, Urine Ketones Trace, Urine Blood 2+ A, Urine Nitrate Positive A, Urine Bilirubin Negative, Urine Urobilinogen 1.0, Ur Leukocyte Esterase 3+ A, Urine RBC 10-20, Urine WBC 50-100, Ur Squamous Epith Cells Occasional, Urine Bacteria 3+ 10/02/24 20:33: VBG pH 7.35, VBG pCO2 41.9, VBG pO2 107.0 H, VBG HCO3 22.4 L, VBG Total CO2 23.6, VBG O2 Saturation 97.6 H, VBG Base Excess -3.3 L, VBG Lactic Acid 1.3 10/02/24 23:40: Troponin I < 0.01 I & O for Last 24 hours: Intake & Output 09/30/24 10/01/24 10/02/24 10/03/24 23:59 23:59 23:59 23:59 Intake Total 230 / 230 Output Total 0 / 0 Balance 230 / 230 Weight 100.698 kg 99.337 kg Constitutional Constitutional: no acute distress *Routine HEENT Exam Head: Present normocephalic Eye: Present EOMI and PERRL ENT: Present mucous membranes moist *Routine Neck Exam Neck: Present supple; Absent lymphadenopathy *Routine Respiratory Exam Respiratory: Present CTA bilaterally *Routine Cardiovascular Exam Cardiovascular: Present RRR *Routine Abdominal Exam Abdominal: Present soft and normoactive bowel sounds; Absent tenderness *Routine Rectal Exam Rectal:: deferred *Routine Genitalia Exam Genitalia:: deferred *Routine Extremities Exam Extremities: Absent cyanosis, clubbing or edema *Routine Skin Exam Skin: Present warm; Absent rash *Routine Neurological Exam Neurological: Present alert and oriented X3 Assessment and Plan *Assessment and plan (1) Acute UTI: Status: Acute Category: Medical Code(s): N39.0 - Urinary tract infection, site not specified (2) Acute encephalopathy: Status: Acute Category: Medical Code(s): G93.40 - Encephalopathy, unspecified (3) Dysuria: Status: Acute Category: Medical Code(s): R30.0 - Dysuria (4) Age-related physical debility: Status: Acute Category: Medical Code(s): R54 - Age-related physical debility (5) Stage II pressure ulcer of buttock: Status: Acute Category: Medical Code(s): L89.302 - Pressure ulcer of unspecified buttock, stage 2 (6) Chronic venous hypertension (idiopathic) with ulcer of right lower extr emity: Status: Acute Category: Medical Code(s): I87.311 - Chronic venous hypertension (idiopathic) with ulcer of right lower extremity; L97.919 - Non-pressure chronic ulcer of unspecified part of right lower leg with unspecified severity Plan MEDICAL DECISION MAKING SUMMARY: This 78-year-old female presents with an acute change in mental status, likely due to an infectious process, most consistently pointing to a urinary tract infection given her abnormal urinalysis and low-grade fever. She also has acute kidney injury of unclear chronicity, which may be worsened by dehydration or infection. Imaging ruled out intracranial pathology. She was started on IV antibiotics and requires continued inpatient monitoring, repeat renal function tests, and supportive care. Her stage II pressure ulcer and venous stasis ulcer will also require wound care management. Acute Encephalopathy * Likely infectious in origin (UTI). * Continue monitoring mental status, reassess orientation and vitals regularly. Urinary Tract Infection * Continue IV ceftriaxone, adjust based on urine culture results. * Ensure adequate hydration with IV fluids and monitor urine output. Acute Kidney Injury (Creatinine 1.8, BUN 56, Unknown Baseline) * History of CKD 3 * Suspect baseline kidney function * Optimize fluid balance, avoiding nephrotoxic medications. * Repeat renal function tests daily. Stage II Pressure Ulcer (Buttock) * Wound care consult, apply barrier protection and reposition regularly. * Monitor for signs of infection or worsening tissue breakdown. Chronic Venous Stasis Ulcer (Right Lower Extremity) * Continue wound care with compression therapy if tolerated. * Monitor for secondary infection or worsening tissue integrity. Admission for Inpatient Care * Monitor vitals, mental status, and renal function. * Follow-up wound healing progress daily. * Consider Infectious Disease consultation if patient does not improve or cultures indicate resistant organisms. * Coordinate with retirement staff for obtaining records. Rounded on patient after nurse practitioner. Personally examined and interviewed patient. Agree with exam findings and care plan as documented.
--- NOTE | 2024-10-03 05:04 | PC.NURSE ---
Alert to self, patient sometimes more oriented than other times. No complaints from patient since arriving. Patient came up on 2L NC, O2 sat >95%. Incontinent using brief. Stage 2 to coccyx. Right lower extremity dressing CDI. Bed alarm on. Call light in reach.
--- NOTE | 2024-10-03 06:51 | PC.NURSE ---
Placed patient on room air, 98%.
[2024-10-03 07:35] LABS: Basophils % 0.4 % (0.1-2.0); Eosinophils # 0.6 K/mm3 (0.0-0.4); Hematocrit 35.8 % (37.0-47.0); Hemoglobin 11.6 g/dL (12.2-16.2); Lymphocytes # 2.7 K/mm3 (0.7-4.5); Lymphocytes % 38.2 % (10-50); Mean Corpuscular HGB Conc 32.4 g/dL (31.8-35.4); Mean Corpuscular Hemoglobin 32.7 pg (27.0-31.2); Mean Corpuscular Volume 100.8 fl (81-99); Mean Platelet Volume 9.8 fl (7.4-10.4); Monocytes # 0.8 K/mm3 (0.1-1.0); Monocytes % 11.5 % (1.7-9.3); Neutrophils # 2.9 K/mm3 (1.8-7.8); Neutrophils % 40.5 % (37.0-80.0); Platelet Count 306 K/mm3 (142-424); Red Blood Count 3.55 M/mm3 (4.20-5.40); Red Cell Distribution Width 12.4 % (11.5-17.5); White Blood Count 7.2 K/mm3 (4.8-10.8)
[2024-10-03 07:52] LABS: Chloride 103 mmol/L (98-107); Sodium 140 mmol/L (136-145)
[2024-10-03 07:53] LABS: Potassium 4.5 mmoL/L (3.5-5.1)
[2024-10-03 07:56] LABS: Anion Gap 13.5 mEq/L (5-15); Blood Urea Nitrogen 55 mg/dl (7-17); Calcium 8.8 mg/dl (8.4-10.2); Carbon Dioxide 28 mmol/L (22.0-30.0); Creatinine Clearance Estimated 54 mL/min (50-200); Estimated Glomerular Filt Rate 37 ml/min (>60); GFR (African American) 44 ML/MIN (>60); Glucose 94 mg/dl (74-100); Magnesium 2.1 mg/dl (1.6-2.3)
[2024-10-03 08:00] VITALS: BP 105/71; PULSE 98; RESP 20; TEMP 36.3; O2SAT 97
--- NOTE | 2024-10-03 08:23 | P.CONPHA_ITS ---
Pharmacy Intervention Comments: HOME MEDICATION LIST VERIFIED USING LIST FROM [facility]
--- NOTE | 2024-10-03 08:23 | HMH.PHAINT1 ---
Pharmacy Intervention Comments: HOME MEDICATION LIST VERIFIED USING LIST FROM [facility]
--- NOTE | 2024-10-03 08:39 | HMH.PTEV ---
Physical Therapy Evaluation Rehab PT IP Evaluation Start: 10/03/24 07:08 Freq: ONCE Status: Active Protocol: Document 10/03/24 08:31 MELLISA (Rec: 10/03/24 08:38 MELLISA [id number]) Subjective/History History History Per H&P: The patient is a 78- year-old female from [facility], brought in by EMS for acute encephalopathy. Review shows medical history of COPD, morbid obesity, chronic venous hypertension, depressive, hypertensive chronic kidney disease, NHL, chronic edema of bilateral lower extremities. According to [facility] staff, she is normally alert and oriented but became significantly confused, speaking nonsensically over the past day. She is unable to provide her own history. Upon arrival, she was afebrile but had a non-invasive temperature near 100?F. Blood pressure and heart rate were stable, and she maintained adequate oxygenation on room air. Examination revealed no focal neurological deficits but showed disorientation and an inability to follow commands. Subjective Subjective Pt reports she has been at [facility] since about April. Pt reports she is normally able to ambulate in the nursing with Min A using RW. Uses a w/c for longer distance (room>dining room). New diagnosis of cancer in past 12 No months? Rehab PT IP Eval Objective Appearance Patient Behavior Appropriate,Cooperative Patient Orientation Person Difficulty following instructions mild Speech Pattern Mumbled,Poor Articulation Ambulation Patient Able to Ambulate No Balance Ability to Arise Unable Sitting Balance Leans or slides in chair Transfers Bed Transfer Ability Maximum x 1 (75% assist) Rehab PT IP prob,goals,plan Problems Date of Evaluation: 10/03/24 PT IP Problems Bed Mobility,Transfers,Gait, Balance,Self care,Safety Rehab Potential Rehab Potential Good Plan PT Intervention Plan Bed Mobility,Transfers,Gait, Balance,Self care,Safety, Therapeutic Exercise Other Intervention Plan 1-2 times PT Plan Frequency Daily Duration LOS Discharge Goals Bed Transfer Ability Moderate x 1 (50% assist) Sit to Stand Chair Transfer Ability Moderate x 2 (50% assist) Discharge Plan PT Discharge Plan Pt presents below her reported PLOF. Pt would benefit from skilled inpatient PT upon returning to [facility]. Pt would benefit from PT while at [facility] to address deficits and prevent further functional decline. Eval Complexity Eval Charge Codes 70725 - Moderate Complexity PHYSICIAN CERTIFICATION: I certify the specified therapy services for Sari Solorzano are required, authorized, and reviewed every 30 days.
[2024-10-03] MEDS: ENOXAPARIN 40MG/0.4ML SYRINGE 40 MG SUBCUT (08:57)
--- NOTE | 2024-10-03 09:57 | HMH.OTEV ---
OT Inpatient Evaluation Rehab OT IP Evaluation Start: 10/03/24 07:08 Freq: ONCE Status: Active Protocol: Document 10/03/24 09:45 [facility] (Rec: 10/03/24 09:57 [facility] [id number]) Rehab OT IP Assessment Subjective History Pt oriented x 2 on arrival. Pt agreeable to engage in therapy evaluation. Pt admitted on 10/02/24 due to AMS. History and physical: Per H&P: The patient is a 78- year-old female from [facility], brought in by EMS for acute encephalopathy. Review shows medical history of COPD, morbid obesity, chronic venous hypertension, depressive, hypertensive chronic kidney disease, NHL, chronic edema of bilateral lower extremities. According to care home staff, she is normally alert and oriented but became significantly confused, speaking nonsensically over the past day. She is unable to provide her own history. Upon arrival, she was afebrile but had a non-invasive temperature near 100?F. Blood pressure and heart rate were stable, and she maintained adequate oxygenation on room air. Examination revealed no focal neurological deficits but showed disorientation and an inability to follow commands. Subjective Pt reports she has been at [facility] since about April. Pt reports she is normally able to transfer in the care home with Min A using RW. Uses a w/ c for longer distance (room> dining room). Pt has also been requiring assistance with ADLS such as lower body dressing and bathing. Pt dependent upon staff for completion of all IADLs. Objective Patient Orientation Person,Birthday Right Upper Extremity Gross ROM Min Limitation <25% Left Upper Extremity Gross ROM Min Limitation <25% Shoulder ROM Limitations Muscle Weakness Elbow ROM Limitations Muscle Weakness Wrist Limitations of Range of Motion Muscle Weakness Bed Mobility bed mobility-scooting,bed mobility - supine/sit,bed mobility - rolling Assist Level Maximum x 1 (75% assist) Rehab OT IP prob,goals,plan Problems Date of Evaluation: 10/03/24 OT IP Problems Bed Mobility,Transfers,Balance ,Self care,Safety Rehab Potential Rehab Potential Good Equipment Needs Assistive Devices Rolling / Wheeled Walker Plan OT intervention Plan Bed Mobility,Transfers,Balance ,Self care,Safety,Therapeutic Exercise OT Plan Frequency Daily Duration LOS Discharge Goals Bed Mobility Ability Assistance x1 Sit to Stand Chair Transfer Ability Moderate x 1 (50% assist) Chair Transfer Ability Moderate x 1 (50% assist) Chair Transfer Technique Sit to/from Ambulatory Chair Transfer Assistive Devices Rolling Walker Lower Body Dressing Ability Moderate Assistance Upper Body Dressing Ability Minimal Assistance Bathing Ability Moderate Assistance Performing Toilet Hygiene Ability Moderate Assistance Overall Commode/Toilet Transfer Ability Moderate Assistance Commode/Toilet Transfer Technique Sit to/from Ambulatory Discharge Plan OT Discharge Plan Pt presents below her reported PLOF. Pt would benefit from skilled inpatient OT upon returning to care home. Pt would benefit from OT while at [facility] to address deficits and prevent further functional decline. Eval Complexity Eval Charge Codes 32304 - Moderate Complexity PHYSICIAN CERTIFICATION: I certify the specified therapy services for Sari Solorzano are required, authorized, and reviewed every 30 days.
--- NOTE | 2024-10-03 10:16 | DIET.NUTRFU ---
RDverified diet at senior living-regular consistency with thin liquids. She is also noted to have a stage II pressure ulcer to buttock, takes prostat at [place] to promote haling will continue during stay. Labs reviewed
[2024-10-03] MEDS: OXYCODONE 7.5MG W/APAP 325MG TABLET 1 EACH PO ×2 (12:12→20:32)
[2024-10-03] MEDS: DIVALPROEX 250MG (Delayed-Release) TABLET 250 MG PO (12:12)
[2024-10-03] MEDS: PREGABALIN 100MG CAPSULE 100 MG PO ×2 (12:12→20:32)
--- NOTE | 2024-10-03 12:58 | SW/DCPLANNER ---
Addendum entered by Tabitha Hardwick 10/04/24 09:08: I have updated Diana hanna/ Nilton Santos that patient return today. Original Note: Patient is from [facility]. PT/OT suggests rehab when discharged. Updates sent to Nilton. DUNCAN Mcknight
[2024-10-03 13:39] VITALS: BMI 33.2
--- NOTE | 2024-10-03 14:01 | HMH.PTWOUND ---
Rehab Inpt Wound Evaluation Rehab IP Wound Evaluation Start: 10/03/24 08:43 Freq: ONCE Status: Active Protocol: Document 10/03/24 13:52 JUAN CARLOS (Rec: 10/03/24 14:00 PHOCAROLANN [id number]) Rehab PT Wound Assessment Subjective Subjective Per H&P: The patient is a 78- year-old female from [facility], brought in by EMS for acute encephalopathy. Review shows medical history of COPD, morbid obesity, chronic venous hypertension, depressive, hypertensive chronic kidney disease, NHL, chronic edema of bilateral lower extremities. According to senior living staff, she is normally alert and oriented but became significantly confused, speaking nonsensically over the past day. She is unable to provide her own history. Upon arrival, she was afebrile but had a non-invasive temperature near 100?F. Blood pressure and heart rate were stable, and she maintained adequate oxygenation on room air. Examination revealed no focal neurological deficits but showed disorientation and an inability to follow commands. Pt presents with pressure injury to the coccyx and R lateral lopez wound upon admission. Wound Right Lateral Lopez Wound Type Stasis Ulcer Is This a Chronic Wound Yes Wound Length (cm) 2.0 Wound Width (cm) 2.0 Wound Depth (cm) 0.1 Wound Bed Appearance Beefy Red Wound Margins Description not fully visualized Primary Dressing Absorbant Pad Wound Secondary Dressing Type Gauze Roll/Wrap,Elastic Bandage Dressing Change Patient Tolerance Tolerated Well Sacrum Wound Type Pressure Ulcer Is This a Chronic Wound Yes Wound Staging Stage II Query Text:Stage I - Unbroken, red skin, no blanching. Stage II - Skin broken, superficial skin loss involving epidermis alone or also dermis. Partial loss of skin layers. Stage III - Pressure area involves epidermis, dermis and subcutaneous tissue, full thickness skin loss. Stage IV - Pressure area involves epidermis, subcutaneous tissue, bone and other supportive tissue. Full thickness skin loss with extensive destruction of underlying tissue and structures. Wound Length (cm) 2.0 Wound Width (cm) 1.0 Wound Depth (cm) 0.1 Wound Bed Appearance [place] Wound Margins Description Well Defined Wound Drainage Description Serous Drainage Amount Small Primary Dressing Composite Dressing Change Patient Tolerance Tolerated Well Plan/Recommendation Comment R lower leg wound has dressing in place from SNF with unknown topical dressing in place and was therefore not well visualized at this time. Dressing is clean, dry and intact and will remain in place for 1-2 more days. If pt remains in hospital past this time, will re-address this wound. Current dressing is appropriate and there is no current need to subject pt to painful cleansing or care of the wound until necessary. [facility] staff dressing sacral wound appropriately at this time. Eval Complexity Eval Charge Codes 90435 - High Complexity PHYSICIAN CERTIFICATION: I certify the specified therapy services for Sari Solorzano are required, authorized, and reviewed every 30 days.
[2024-10-03 16:00] VITALS: BP 118/59; PULSE 82; RESP 20; TEMP 36.6; O2SAT 100
--- NOTE | 2024-10-03 18:41 | EXP.ACUTE.PN ---
Subjective *Date: 10/03/24 *Time: 21:56 Interval history: Patient opens eyes to voice and tactile stimulation. Weak voice on response but said she felt okay this morning. Denied any focal pain. Told me her name but was only oriented to self. Afebrile. No nausea or vomiting. Stable on room air Medical Exam Vital signs and Labs for Last 24 Hours: Vital Signs Temp Pulse Pulse Resp BP BP Pulse Ox 10/03/24 17:00 10/03/24 16:00 97.8 F 82 20 118/59 L 100 10/03/24 15:00 10/03/24 13:00 10/03/24 11:00 10/03/24 09:00 10/03/24 08:57 10/03/24 08:00 97.4 F L 98 H 20 105/71 L 97 10/03/24 06:42 10/03/24 05:00 10/03/24 03:30 97.3 F L 81 18 109/65 L 98 10/03/24 03:00 10/03/24 00:52 10/02/24 23:00 10/02/24 22:20 97.9 F 80 18 116/63 97 10/02/24 21:55 99.5 F 78 10 L 120/69 10/02/24 21:54 10/02/24 21:30 82 10 L 120/69 100 10/02/24 21:00 85 13 116/65 99 10/02/24 20:51 16 102/62 L 10/02/24 20:00 92 H 108/60 L 98 10/02/24 19:58 99.5 F 97 H 22 102/63 L 97 O2 Del Method O2 Flow Rate 10/03/24 17:00 Room Air 10/03/24 16:00 Room Air 10/03/24 15:00 Room Air 10/03/24 13:00 Room Air 10/03/24 11:00 Room Air 10/03/24 09:00 Room Air 10/03/24 08:57 Room Air 10/03/24 08:00 Room Air 10/03/24 06:42 Room Air 10/03/24 05:00 Nasal Cannula 2 10/03/24 03:30 Nasal Cannula 2 10/03/24 03:00 Nasal Cannula 2 10/03/24 00:52 Nasal Cannula 2 10/02/24 23:00 Nasal Cannula 2 10/02/24 22:20 Nasal Cannula 2 10/02/24 21:55 Room Air 10/02/24 21:54 Nasal Cannula 2 10/02/24 21:30 Nasal Cannula 2 10/02/24 21:00 10/02/24 20:51 10/02/24 20:00 10/02/24 19:58 Room Air Intake and Output 10/03/24 10/03/24 10/03/24 07:59 15:59 23:59 Intake Total 230 / 830 600 / 830 Output Total 0 / 0 0 / 0 Balance 230 / 830 600 / 830 Intake: Intake, Oral Amount 180 / 780 600 / 780 Intake, Total IV Amount 50 / 50 Ceftriaxone 1 gm 1 gm In 0.9 % 50 / 50 Sodium Chloride 50 ml @ 100 mls /hr IV Q24H [facility] Rx#:[id number] Output: Output, Urine Amount 0 / 0 0 / 0 Other: Number of Unmeasured Voids 1 1 Number of Bowel Movements 1 1 Weight 99.337 kg 99.33 kg Patient Weight 10/03/24 23:59 Weight 99.33 kg Laboratory Results - last 24 hr 10/02/24 20:07: WBC 8.1, RBC 3.64 L, Hgb 11.6 L, Hct 35.7 L, MCV 98.1, MCH 31.9 H, MCHC 32.5, RDW 12.5, Plt Count 281, MPV 10.0, Neut % (Auto) 46.7, Lymph % (Auto) 34.8, [place] % (Auto) 11.7 H, Eos % (Auto) 5.8, Baso % (Auto) 0.5, Neut # (Auto) 3.8, Lymph # (Auto) 2.8, [place] # (Auto) 1.0, Eos # (Auto) 0.5 H, Baso # (Auto) 0.0, Sodium 139, Potassium 4.4, Chloride 103, Carbon Dioxide 26, Anion Gap 14.4, BUN 56 H, Creatinine 1.80 H, Estimated Creat Clear 42, Estimated GFR 27 L, Est GFR ( Amer) 33 L, Glucose 99, Calcium 8.9, Total Bilirubin 0.6, AST 28, ALT 14, Alkaline Phosphatase 109, Troponin I < 0.01, Total Protein 5.6 L, Albumin 3.7, Globulin 1.9, Albumin/Globulin Ratio 1.9 H, HCV Ab NARAYAN w/Rflx PCR Qn Negative, HIV Ag/Ab Combo Qual Negative 10/02/24 20:21: SARS-CoV-2 (PCR) Not detected, Influenza A Untype (PCR) Not detected, Influenza Type B (PCR) Not detected 10/02/24 20:32: Urine Color Dark yellow, Urine Appearance Cloudy, Urine pH 6.0, Ur Specific [place] 1.025, Urine Protein 2+ A, Urine Glucose (UA) Negative, Urine Ketones Trace, Urine Blood 2+ A, Urine Nitrate Positive A, Urine Bilirubin Negative, Urine Urobilinogen 1.0, Ur Leukocyte Esterase 3+ A, Urine RBC 10-20, Urine WBC 50-100, Ur Squamous Epith Cells Occasional, Urine Bacteria 3+ 10/02/24 20:33: VBG pH 7.35, VBG pCO2 41.9, VBG pO2 107.0 H, VBG HCO3 22.4 L, VBG Total CO2 23.6, VBG O2 Saturation 97.6 H, VBG Base Excess -3.3 L, VBG Lactic Acid 1.3 10/02/24 23:40: Troponin I < 0.01 10/03/24 07:18: WBC 7.2, RBC 3.55 L, Hgb 11.6 L, Hct 35.8 L, MCV 100.8 H, MCH 32.7 H, MCHC 32.4, RDW 12.4, Plt Count 306, MPV 9.8, Neut % (Auto) 40.5, Lymph % (Auto) 38.2, [place] % (Auto) 11.5 H, Eos % (Auto) 9.0, Baso % (Auto) 0.4, Neut # (Auto) 2.9, Lymph # (Auto) 2.7, [place] # (Auto) 0.8, Eos # (Auto) 0.6 H, Baso # (Auto) 0.0, Sodium 140, Potassium 4.5, Chloride 103, Carbon Dioxide 28, Anion Gap 13.5, BUN 55 H, Creatinine 1.40 H D, Estimated Creat Clear 54, Estimated GFR 37 L, Est GFR ( Amer) 44 L D, Glucose 94, Calcium 8.8, Magnesium 2.1 I & O for Labs for Last 24 Hours: Intake & Output 09/30/24 10/01/24 10/02/24 10/03/24 23:59 23:59 23:59 23:59 Intake Total 830 / 830 Output Total 0 / 0 Balance 830 / 830 Weight 100.698 kg 99.33 kg Constitutional: Present no acute distress, obese, chronically ill appearing and somnolent Head: Present atraumatic and normocephalic ENT: Present normal exam Respiratory: Present normal respiratory effort; Absent rhonchi, wheezes or crackles Cardiac: Present Reg Rate and Rhythm GI: Present soft and normal bowel sounds; Absent distention or tenderness Extremities: Present normal inspection, full ROM and edema Comment:: Right leg in bandage Skin: Present intact; Absent erythema Neuro: Present Grossly Intact, alert and moves all extremities Comment:: Oriented to self. Responds to voice. Assessment and Plan *Assessment and plan (1) Acute UTI: Status: Acute Category: Medical Code(s): N39.0 - Urinary tract infection, site not specified (2) Acute encephalopathy: Status: Acute Category: Medical Code(s): G93.40 - Encephalopathy, unspecified (3) Dysuria: Status: Acute Category: Medical Code(s): R30.0 - Dysuria (4) Age-related physical debility: Status: Acute Category: Medical Code(s): R54 - Age-related physical debility (5) Stage II pressure ulcer of buttock: Status: Acute Category: Medical Code(s): L89.302 - Pressure ulcer of unspecified buttock, stage 2 (6) Chronic venous hypertension (idiopathic) with ulcer of right lower extremity: Status: Acute Category: Medical Code(s): I87.311 - Chronic venous hypertension (idiopathic) with ulcer of right lower extremity; L97.919 - Non-pressure chronic ulcer of unspecified part of right lower leg with unspecified severity Plan This 78-year-old female presents with an acute change in mental status, likely due to an infectious process, most consistently pointing to a urinary tract infection given her abnormal urinalysis and low-grade fever. She also has acute kidney injury of unclear chronicity, which may be worsened by dehydration or infection. Imaging ruled out intracranial pathology. She was started on IV antibiotics and requires continued inpatient monitoring, repeat renal function tests, and supportive care. Her stage II pressure ulcer and venous stasis ulcer will also require wound care management. Acute Encephalopathy Urinary tract infection - White count 7.2 this morning. Hemoglobin 11.6. Repeat CBC, CMP, magnesium ordered for the morning. Urinalysis grossly abnormal with positive nitrate, 3+ leuk esterase, 3+ bacteria and 50-100 white cells -Previous urine culture in July with Proteus. Repeat urine culture pending. -Previous culture sensitive to cephalosporins. Resistant to janelle quinolones; continue empiric therapy with ceftriaxone 1 g IV daily. Acute Kidney Injury (Creatinine 1.8, BUN 56, Unknown Baseline) -BUN 55, creatinine 1.4 this morning, improved from admission. Repeat labs ordered for the morning with CMP and magnesium. Magnesium 2.1 today. Potassium 4.5 Stage II Pressure Ulcer (Buttock) Chronic venous stasis ulcer right lower extremity -Wound care evaluated today, nursing performing dressing changes. Depression: Continue medications with Lyrica 100 mg 3 today, melatonin 5 Maribeth nightly divalproex 250 mg daily, and Klonopin 0.5 mg twice daily as needed. Monitor for oversedation given polypharmacy. Hypertension: Blood pressure well-controlled at this time. Continue metoprolol tartrate 12.5mg twice a day Chronic pain: Oxycodone 7-1/2 mg 3 times a day per home regimen, resume as needed for severe pain given her chronic wounds. Full code Cardiac diet
[2024-10-03 20:00] VITALS: BP 121/69; PULSE 91; RESP 17; TEMP 36.6; O2SAT 99
[2024-10-03] MEDS: PRO-STAT AWC 30ML LIQUID PACKET 30 ML PO (20:29)
[2024-10-03] MEDS: CEFTRIAXONE 1 GM 1 GM in 0.9 % SODIUM CHLORIDE 50 ML IV (20:29)
[2024-10-03] MEDS: METOPROLOL TARTRATE 25MG TABLET 12.5 MG PO (20:29)
[2024-10-03] MEDS: MELATONIN 5MG TABLET 5 MG PO (20:30)
[2024-10-03] MEDS: QUETIAPINE 25MG TABLET 12.5 MG PO (20:30)
[2024-10-03] MEDS: PANTOPRAZOLE 40MG TABLET 40 MG PO (20:30)
[2024-10-04] VITALS: BP 107/62; PULSE 77; RESP 16; TEMP 36.3; O2SAT 98
--- NOTE | 2024-10-04 02:58 | PC.NURSE ---
PT IS RESTING IN BED. ALERT AND ORIENTED X3. PT WILL HAVE PERIODS OF CONFUSION. TURNED AND REPOSITIONED IN BED. STAGE 2 NOTED TO COCCYX. DRESSING NOTED TO RLE. LUNG SOUNDS CLEAR. ABDOMEN SOFT/NON TENDER WITH ACTIVE BOWEL SOUNDS. WILL CONTINUE TO MONITOR.
[2024-10-04 04:00] VITALS: BP 125/58; PULSE 77; RESP 16; TEMP 36.9; O2SAT 98; BMI 33.2
[2024-10-04 06:50] LABS: Basophils % 0.5 % (0.1-2.0); Eosinophils # 0.5 K/mm3 (0.0-0.4); Eosinophils % 9.5 % (0.1-12.0); Hemoglobin 10.6 g/dL (12.2-16.2); Lymphocytes # 2.6 K/mm3 (0.7-4.5); Lymphocytes % 47.2 % (10-50); Mean Corpuscular HGB Conc 32.1 g/dL (31.8-35.4); Mean Corpuscular Hemoglobin 32.3 pg (27.0-31.2); Mean Corpuscular Volume 100.6 fl (81-99); Mean Platelet Volume 9.9 fl (7.4-10.4); Monocytes # 0.7 K/mm3 (0.1-1.0); Monocytes % 13.3 % (1.7-9.3); Neutrophils # 1.6 K/mm3 (1.8-7.8); Neutrophils % 29.1 % (37.0-80.0); Platelet Count 221 K/mm3 (142-424); Red Blood Count 3.28 M/mm3 (4.20-5.40); Red Cell Distribution Width 12.4 % (11.5-17.5); White Blood Count 5.6 K/mm3 (4.8-10.8)
[2024-10-04 06:56] LABS: Chloride 105 mmol/L (98-107); Sodium 137 mmol/L (136-145)
[2024-10-04 06:57] LABS: Potassium 4.4 mmoL/L (3.5-5.1)
[2024-10-04 06:59] LABS: Blood Urea Nitrogen 47 mg/dl (7-17); Creatinine Clearance Estimated 75 mL/min (50-200); Estimated Glomerular Filt Rate 61 ml/min (>60); GFR (African American) 74 ML/MIN (>60)
[2024-10-04 07:00] LABS: Anion Gap 11.4 mEq/L (5-15); Calcium 8.4 mg/dl (8.4-10.2); Carbon Dioxide 25 mmol/L (22.0-30.0); Glucose 81 mg/dl (74-100)
[2024-10-04 08:00] VITALS: BP 95/54; PULSE 92; RESP 18; TEMP 36.3; O2SAT 99
--- NOTE | 2024-10-04 08:09 | EXP.DC.SUM ---
General Admission date:: 10/02/24 Discharge date: 10/04/24 HPI HPI HPI: The patient is a 78-year-old female from [facility], brought in by EMS for acute encephalopathy. Review shows medical history of COPD, morbid obesity, chronic venous hypertension, depressive, hypertensive chronic kidney disease, NHL, chronic edema of bilateral lower extremities. According to prison staff, she is normally alert and oriented but became significantly confused, speaking nonsensically over the past day. She is unable to provide her own history. Upon arrival, she was afebrile but had a non-invasive temperature near 100?F. Blood pressure and heart rate were stable, and she maintained adequate oxygenation on room air. Examination revealed no focal neurological deficits but showed disorientation and an inability to follow commands. Initial workup was notable for an elevated BUN (56) and creatinine (1.8) without a known baseline, raising concern for acute kidney injury. Urinalysis demonstrated findings consistent with a urinary tract infection (positive nitrites, leukocyte esterase, and 2+ blood). A CT scan of the head and chest X-ray showed no acute intracranial abnormalities or cardiopulmonary pathology. She was started on IV ceftriaxone in the emergency department for suspected urosepsis. Additional findings include a stage II pressure ulcer on her buttock and a chronic venous stasis ulcer on her right lower extremity. Given her altered mental status, infection, and possible renal dysfunction, she was admitted for further management. Hospital Course Hospital Course Hospital Course: This 78-year-old female presents with an acute change in mental status, likely due to an infectious process, most consistently pointing to a urinary tract infection given her abnormal urinalysis and low-grade fever. She also has acute kidney injury of unclear chronicity, which may be worsened by dehydration or infection. Imaging ruled out intracranial pathology. She was started on IV antibiotics and requires continued inpatient monitoring, repeat renal function tests, and supportive care. Her stage II pressure ulcer and venous stasis ulcers were evaluated by wound care. Continue dressing changes. Urine culture still pending however treatment based on previous culture from July with sensitivities. Transition to oral antibiotics. Mentation improved to baseline. Stable to return back to prison for further management. Problems addressed as follows: Acute Encephalopathy, resolved Urinary tract infection -White count normalized during admission, 5.6 on day of discharge. Hemoglobin stable at 10.6. Urine initially grossly abnormal, was initiated on ceftriaxone. Urinalysis grossly abnormal with positive nitrate, 3+ leuk esterase, 3+ bacteria and 50-100 white cells. Transitioned from ceftriaxone to cefdinir to complete 7-day course given previous culture from July positive for Proteus with FATUMA sensitivity. Still awaiting urine culture and sensitivity from this visit. Will follow after discharge. Given improvement in mentation, back to baseline, stable to discharge to nursing facility for further management as an outpatient. Acute Kidney Injury (Creatinine 1.8, BUN 56, Unknown Baseline) -Kidney function and electrolytes showed improvement. BUN improved to 47, creatinine 0.9. Continue aggressive oral hydration. Would benefit from repeat CBC, CMP, magnesium in 1 week. Stage II Pressure Ulcer (Buttock) Chronic venous stasis ulcer right lower extremity -Wound care evaluated, continue with daily dressing changes. Depression: Continue medications with Lyrica 100 mg 3 today, melatonin 5 Maribeth nightly divalproex 250 mg daily, and Klonopin 0.5 mg twice daily as needed. Monitor for oversedation given polypharmacy. Hypertension: Blood pressure well-controlled at this time. Continue metoprolol tartrate 12.5mg twice a day Chronic pain: Oxycodone 7-1/2 mg 3 times a day per home regimen, resume as needed for severe pain given her chronic wounds. Total time spent on discharge 32 minutes in counseling, documentation, chart review, and direct care with patient. Exam Data for Last 24 hours Vital signs and Labs for Last 24 Hours: Temp Pulse Resp BP Pulse Ox O2 Del Method O2 Flow Rate 98.5 F 77 16 125/58 L 98 Room Air 2 10/04/24 04:00 10/04/24 04:00 10/04/24 04:00 10/04/24 04:00 10/04/24 04:00 10/04/24 06:52 10/03/24 05:00 Laboratory Results - last 24 hr 10/04/24 06:12: WBC 5.6, RBC 3.28 L, Hgb 10.6 L, Hct 33.0 L, MCV 100.6 H, MCH 32.3 H, MCHC 32.1, RDW 12.4, Plt Count 221 D, MPV 9.9, Neut % (Auto) 29.1 L, Lymph % (Auto) 47.2, [place] % (Auto) 13.3 H, Eos % (Auto) 9.5, Baso % (Auto) 0.5, Neut # (Auto) 1.6 L, Lymph # (Auto) 2.6, [place] # (Auto) 0.7, Eos # (Auto) 0.5 H, Baso # (Auto) 0.0, Sodium 137, Potassium 4.4, Chloride 105, Carbon Dioxide 25, Anion Gap 11.4, BUN 47 H, Creatinine 0.90 D, Estimated Creat Clear 75, Estimated GFR 61, Est GFR ( Amer) 74 D, Glucose 81, Calcium 8.4 I & O for Last 24 hours: Intake & Output 10/01/24 10/02/24 10/03/24 10/04/24 23:59 23:59 23:59 23:59 Intake Total 1070 / 1070 290 / 290 Output Total 250 / 250 Balance 820 / 820 290 / 290 Weight 100.698 kg 99.33 kg 99.337 kg Microbiology Reports for the Last 24 Hours: Microbiology 10/02/24 20:07 Blood Blood Culture - Preliminary NO GROWTH AFTER 24 HOURS 10/02/24 20:07 Blood Blood Culture - Preliminary NO GROWTH AFTER 24 HOURS Constitutional Constitutional: no acute distress, obese, chronically ill appearing and cooperative *Routine HEENT Exam Head: Present normocephalic Eye: Present EOMI and PERRL ENT: Present mucous membranes moist *Routine Neck Exam Neck: Present supple; Absent lymphadenopathy *Routine Respiratory Exam Respiratory: Present CTA bilaterally; Absent respiratory distress, rhonchi, wheezes or crackles *Routine Cardiovascular Exam Cardiovascular: Present RRR *Routine Abdominal Exam Abdominal: Present soft and normoactive bowel sounds; Absent tenderness *Routine Rectal Exam Patient deferred: visual exam *Routine Exam Patient deferred: external exam *Routine Extremities Exam Extremities: Absent cyanosis, clubbing or edema Comments: Edema bilateral lower extremities. Stasis ulcer on right leg Routine Back/Spine/Pelvis Exam Comments: Coccygeal decubitus wound *Routine Skin Exam Skin: Present intact and warm; Absent cyanosis, erythema or rash *Routine Neurological Exam Neurological: Present alert and moving all extremities; Absent altered mental status Comments: Baseline mentation Routine Psychiatric Exam Psychiatric: Present normal affect Results Data Completed and Pending Labs on day of discharge: Labs from last 24 hours 10/04/24 06:12 WBC 5.6 RBC 3.28 L Hgb 10.6 L Hct 33.0 L MCV 100.6 H MCH 32.3 H MCHC 32.1 RDW 12.4 Plt Count 221 D MPV 9.9 Neut % (Auto) 29.1 L Lymph % (Auto) 47.2 [place] % (Auto) 13.3 H Eos % (Auto) 9.5 Baso % (Auto) 0.5 Neut # (Auto) 1.6 L Lymph # (Auto) 2.6 [place] # (Auto) 0.7 Eos # (Auto) 0.5 H Baso # (Auto) 0.0 Sodium 137 Potassium 4.4 Chloride 105 Carbon Dioxide 25 Anion Gap 11.4 BUN 47 H Creatinine 0.90 D Estimated Creat Clear 75 Estimated GFR 61 Est GFR ( Amer) 74 D Glucose 81 Calcium 8.4 Preliminary micro results at discharge 10/02/24 20:07 Blood Culture - Preliminary Blood NO GROWTH AFTER 24 HOURS 10/02/24 20:07 Blood Culture - Preliminary Blood NO GROWTH AFTER 24 HOURS DS: Diagnosis Discharge Diagnosis (1) Acute UTI: Status: Acute Code(s): N39.0 - Urinary tract infection, site not specified (2) Acute encephalopathy: Status: Acute Code(s): G93.40 - Encephalopathy, unspecified (3) Dysuria: Status: Acute Code(s): R30.0 - Dysuria (4) Age-related physical debility: Status: Acute Code(s): R54 - Age-related physical debility (5) Stage II pressure ulcer of buttock: Status: Acute Code(s): L89.302 - Pressure ulcer of unspecified buttock, stage 2 (6) Chronic venous hypertension (idiopathic) with ulcer of right lower extremity: Status: Acute Code(s): I87.311 - Chronic venous hypertension (idiopathic) with ulcer of right lower extremity; L97.919 - Non-pressure chronic ulcer of unspecified part of right lower leg with unspecified severity Meds Home Medications and Allergies Home Medications ?Medication ?Instructions ?Recorded ?Confirmed ?Type divalproex 250 mg tablet,delayed 250 mg PO DAILY 06/23/24 10/02/24 History release fluticasone propionate 50 1 spray intranasal DAILY #16 grams 06/23/24 10/02/24 Rx mcg/actuation nasal spray,suspension loratadine 10 mg tablet 10 mg PO DAILY #90 tabs 06/23/24 10/02/24 Rx metoprolol tartrate 25 mg tablet 12.5 mg (1/2 x 25 mg) PO BID #30 06/23/24 10/02/24 Rx tabs omeprazole 20 mg capsule,delayed 20 mg PO DAILY #90 caps 06/23/24 10/02/24 Rx release potassium chloride 10 mEq 10 meq PO DAILY #30 tabs 06/23/24 10/02/24 Rx tablet,extended release ascorbic acid (vitamin C) 500 mg 500 mg PO BID 06/29/24 10/02/24 History capsule pregabalin 100 mg capsule 100 mg PO TID #90 caps 07/17/24 10/02/24 Rx clonazepam 0.5 mg tablet 0.5 mg PO BID #60 tabs 09/05/24 10/02/24 Rx oxycodone-acetaminophen 7.5 mg-325 1 tab PO TID #90 tabs 09/19/24 10/02/24 Rx mg tablet loperamide 2 mg capsule 2 mg PO Q3HP PRN Diarrhea 10/02/24 10/03/24 History ondansetron 4 mg disintegrating 4 mg PO Q6HP PRN Nausea And 10/02/24 10/03/24 History tablet Vomiting acetaminophen 325 mg tablet 650 mg PO QIDP PRN pain and fever 10/03/24 10/03/24 History (Tylenol) acetaminophen 500 mg tablet 500 mg PO TID 10/03/24 10/03/24 History furosemide 40 mg tablet 40 mg PO DAILY 10/03/24 10/03/24 History melatonin 5 mg tablet 5 mg PO HS 10/03/24 10/02/24 History quetiapine 25 mg tablet 12.5 mg PO HS 10/03/24 10/03/24 History cefdinir 300 mg capsule 300 mg PO BID 5 days #10 caps 10/04/24 Rx New Prescriptions to Start Prescriptions: Rui Andrea Allergies Allergy/AdvReac Type Severity Reaction Status Date / Time codeine Allergy Verified 09/06/24 17:25 naproxen (From Anaprox) Allergy Verified 09/06/24 17:25 latex AdvReac Mild Verified 09/06/24 17:25 Discharge Plan Disposition Patient Disposition: [facility] Condition: Fair Discharge Order Discharge Orders: Discharge Order (Routine); Ordered 10/04/24 Ordered By: Rui Finley Follow up Plan Prescriptions/Medication Reconciliation: New cefdinir 300 mg capsule 300 mg PO BID 5 Days Qty: 10 0RF Continued ascorbic acid (vitamin C) 500 mg capsule 500 mg PO BID divalproex 250 mg tablet,delayed release (DR/EC) 250 mg PO DAILY Patient Comments: TAKE 1 TABLET BY MOUTH TWICE DAILY fluticasone propionate 50 mcg/actuation spray,suspension 1 spray intranasal DAILY Qty: 16 0RF potassium chloride 10 mEq tablet extended release 10 meq PO DAILY Qty: 30 0RF loratadine 10 mg tablet 10 mg PO DAILY Qty: 90 0RF metoprolol tartrate 25 mg tablet 12.5 mg PO BID Qty: 30 0RF omeprazole 20 mg capsule,delayed release(DR/EC) 20 mg PO DAILY Qty: 90 0RF pregabalin 100 mg capsule 100 mg PO TID Qty: 90 2RF clonazepam 0.5 mg tablet 0.5 mg PO BID Qty: 60 2RF oxycodone-acetaminophen 7.5-325 mg tablet 1 tab PO TID Qty: 90 0RF loperamide 2 mg capsule 2 mg PO Q3HP PRN (Reason: Diarrhea) ondansetron 4 mg Tablet,Disintegrating 4 mg PO Q6HP PRN (Reason: Nausea And Vomiting) furosemide 40 mg tablet 40 mg PO DAILY acetaminophen [Tylenol] 325 mg Tablet 650 mg PO QIDP PRN (Reason: pain and fever) acetaminophen 500 mg Tablet 500 mg PO TID quetiapine 25 mg tablet 12.5 mg PO HS melatonin 5 mg tablet 5 mg PO HS Problem Reconciliation Problems Reviewed?: Yes Patient Discharge Instructions ACTIVITY: Continue current activity DIET: continue same diet Patient Instructions: How to Prevent Pressure Ulcers, DI for Urinary Tract Infection (UTI), DI for Altered Mental Status Print Language: Vincentian Providers Primary Care Provider: Provider,Referral Admit Provider: Rui Finley Attending Provider: Rui Finley
[2024-10-04] MEDS: PRO-STAT AWC 30ML LIQUID PACKET 30 ML PO (08:38)
[2024-10-04] MEDS: FUROSEMIDE 40 MG TABLET PO (08:38)
[2024-10-04] MEDS: OXYCODONE 7.5MG W/APAP 325MG TABLET 1 EACH PO ×2 (08:38→12:53)
[2024-10-04] MEDS: ENOXAPARIN 40MG/0.4ML SYRINGE 40 MG SUBCUT (08:38)
[2024-10-04] MEDS: DIVALPROEX 250MG (Delayed-Release) TABLET 250 MG PO (08:38)
[2024-10-04] MEDS: PREGABALIN 100MG CAPSULE 100 MG PO ×2 (08:39→12:53)
[2024-10-04] MEDS: METOPROLOL TARTRATE 25MG TABLET 12.5 MG PO (08:39)
[2024-10-04] MEDS: ONDANSETRON 4MG/2ML VIAL 4 MG IV (12:54)
== END 2024-10-04 15:28 ==
LOC: ER 21:47 → 2ND 21:51
PROVIDERS: Nurse Practitioner Family; Admitting Provider Internal Medicine Adolescent Medicine; Emergency Provider Student in an Organized Health Care Education/Training Program; Visit Provider Internal Medicine Adolescent Medicine
DX: G93.40 Encephalopathy, unspecified (principal); N39.0 Urinary tract infection, site not specified; N17.9 Acute kidney failure, unspecified; R54 Age-related physical debility; L89.302 Pressure ulcer of unspecified buttock, stage 2; I87.311 Chronic venous hypertension (idiopathic) with ulcer of right lower extremity; L97.919 Non-pressure chronic ulcer of unspecified part of right lower leg with unspecified severity; B96.20 Unspecified Escherichia coli [E. coli] as the cause of diseases classified elsewhere; F32.A Depression, unspecified; B96.4 Proteus (mirabilis) (morganii) as the cause of diseases classified elsewhere; Z16.11 Resistance to penicillins; Z16.29 Resistance to other single specified antibiotic; Z16.23 Resistance to quinolones and fluoroquinolones; Z79.899 Other long term (current) drug therapy; Z85.72 Personal history of non-Hodgkin lymphomas
CPT/HCPCS: 36415; 70450; 71045; 80048; 80053; 81001; 82803; 83735; 84484; 85025; 86803; 87040; 87086; 87186; 87389; 87636; 97110; 97162; 97166; 97530; 99291; G0378; J0696; J1650; J2405; J7120

== ENCOUNTER 2024-11-01 15:08 | Observation (INO) | payer MEDICARE, BC, SELFPAY ==
[2024-11-01] VITALS (11 sets, daily range): BP systolic 106–156; BP diastolic 63–85; PULSE 80–107; RESP 16–34; TEMP 36.4–37; O2SAT 96–100; BMI 32.5; BMI 32.7
--- NOTE | 2024-11-01 15:33 | CT_ITS ---
FINAL REPORT TECHNIQUE: Noncontrast exam This study was performed with techniques to keep radiation doses as low as reasonably achievable, (ALARA). Individualized dose reduction techniques using automated exposure control or adjustment of mA and/or kV according to the patient''s size were employed. CLINICAL HISTORY: AMS, poor historian, urinary symptoms COMPARISON: None FINDINGS: Abdomen: Peripheral bands at the lung bases are compatible with scarring. Liver, spleen, pancreas and adrenal glands have a normal CT appearance in their limited unenhanced state. The gallbladder is distended without evidence of stone disease. The kidneys show no renal stone disease or hydronephrosis. No obvious renal mass is present. No ureteral stones are present. No evidence of bowel obstruction. Pelvis: There are no changes of appendicitis. The patient is status post hysterectomy. Moderate fecal impaction is noted of the rectosigmoid colon. There is mild bladder wall thickening, although the bladder is poorly distended. No fluid collection or adenopathy is seen. IMPRESSION: No evidence of upper urinary tract stone disease or obstruction. Nonspecific gallbladder distention. Nonspecific bladder wall thickening. Reviewed, Interpreted and Dictated by Panfilo Jean MD Transcribed by Tiera Walton Authenticated and . [facility]
--- NOTE | 2024-11-01 15:33 | XR_ITS ---
FINAL REPORT CLINICAL HISTORY: AMS COMPARISON: 10/02/2024 FINDINGS: There are chronic appearing changes in the bilateral upper lobes. There is no acute infiltrate. There is no evidence of effusion or pneumothorax. Mediastinum is unremarkable. A left-sided chest port is present. Heart size is normal. IMPRESSION: Chronic changes without acute findings. Reviewed, Interpreted and Dictated by Panfilo Jean MD Transcribed by Tiera Walton Authenticated and [facility]
--- NOTE | 2024-11-01 15:33 | CT_ITS ---
FINAL REPORT TECHNIQUE: Noncontrast exam. Coronal and sagittal images were obtained and reviewed. This study was performed with techniques to keep radiation doses as low as reasonably achievable, (ALARA). Individualized dose reduction techniques using automated exposure control or adjustment of mA and/or kV according to the patient's size were employed. CLINICAL HISTORY: AMS, poor historian COMPARISON: 10/02/2024 FINDINGS: Mild generalized atrophy and chronic ischemic white matter changes are noted. No cortical edema is present. There is no mass or hemorrhage. Ventricles are normal. Bone windows show no skull fracture or obvious obstructive lesion. IMPRESSION: 1. No acute intracranial abnormality or obvious mass. 2. Atrophy and chronic ischemic white matter changes as above. Reviewed, Interpreted and Dictated by Panfilo Jean MD Transcribed by Tiera Walton Authenticated and [facility]
--- NOTE | 2024-11-01 15:36 | PC.NURSE ---
RESPIRATORY NOTIFIED OF [facility]
[2024-11-01 15:43] LABS: VBG Base Excess -5.1 mmol/L (-2.4-2.3); VBG HCO3 20.7 mmol/L (23-30); VBG Oxygen Saturation 97.8 % (50-70); VBG PCO2 39.6 mmol/L (35-51); VBG PH 7.34 mmol/L (7.31-7.41); VBG PO2 105.1 mmol/L (28-40); VBG Total CO2 21.9 mmol/L (23-27)
[2024-11-01 15:44] LABS: Basophils % 0.5 % (0.1-2.0); Eosinophils # 0.2 K/mm3 (0.0-0.4); Eosinophils % 2.7 % (0.1-12.0); Hematocrit 34.5 % (37.0-47.0); Hemoglobin 11.1 g/dL (12.2-16.2); Lymphocytes # 3.7 K/mm3 (0.7-4.5); Lymphocytes % 46.9 % (10-50); Mean Corpuscular HGB Conc 32.2 g/dL (31.8-35.4); Mean Corpuscular Hemoglobin 32.6 pg (27.0-31.2); Mean Corpuscular Volume 101.2 fl (81-99); Mean Platelet Volume 9.6 fl (7.4-10.4); Monocytes # 1.2 K/mm3 (0.1-1.0); Monocytes % 14.7 % (1.7-9.3); Neutrophils # 2.7 K/mm3 (1.8-7.8); Neutrophils % 34.9 % (37.0-80.0); Platelet Count 344 K/mm3 (142-424); Red Blood Count 3.41 M/mm3 (4.20-5.40); Red Cell Distribution Width 13.5 % (11.5-17.5); White Blood Count 7.8 K/mm3 (4.8-10.8)
--- NOTE | 2024-11-01 15:46 | ECG_ITS ---
APPROVED REPORT Exam: Resting ECG HR:97 bpm ECG Measurements Heart Rate 97 AXES MA 192 P 56 QRSd 124 QRS -55 QT 359 T 73 QTc 413 Conclusion SINUS RHYTHM LEFT ANTERIOR FASCICULAR BLOCK [QRS AXIS <= -45, QR IN I, RS IN II] POSSIBLE ANTERIOR MYOCARDIAL INFARCTION , PROBABLY OLD [30 ms Q WAVE IN V3/V4, OR R < 0.2 mV IN V4] ABNORMAL ECG UNCONFIRMED REPORT Electronically signed by : DEBORA CUENCA, 11/02/2024 06:51:01
[2024-11-01 15:59] LABS: Albumin Level 3.8 g/dl (3.5-5.0); Chloride 107 mmol/L (98-107); Potassium 4.7 mmoL/L (3.5-5.1); Sodium 140 mmol/L (136-145)
[2024-11-01 16:00] LABS: Coronavirus 19, PCR Not Detected (NotDetected); Influenza A, PCR Not Detected (NotDetected); Influenza B, PCR Not Detected (NotDetected)
[2024-11-01 16:02] LABS: Alanine Aminotransferase 12 U/L (12-78); Albumin/Globulin Ratio 2.1 (1.1-1.8); Alkaline Phosphatase 102 U/L (38-126); Anion Gap 13.7 mEq/L (5-15); Aspartate Amino Transferase 29 U/L (14-36); Bilirubin,Total 0.7 mg/dl (0.2-1.3); Blood Urea Nitrogen 54 mg/dl (7-17); Carbon Dioxide 24 mmol/L (22.0-30.0); Creatinine Clearance Estimated 30 mL/min (50-200); Estimated Glomerular Filt Rate 20 ml/min (>60); GFR (African American) 24 ML/MIN (>60); Globulin 1.8 g/dL (1.3-3.2); Glucose 101 mg/dl (74-100); Total Protein,Serum 5.6 g/dl (6.3-8.2)
[2024-11-01 16:04] LABS: Microscopic, Urine URINE MICROSCOPIC (MICROSCOPIC)
--- NOTE | 2024-11-01 16:13 | PC.NURSE ---
PT ARRIVED BACK TO ROOM FROM CT
[2024-11-01 16:25] LABS: Troponin I < 0.01 ng/ml (0.00-0.034)
[2024-11-01 16:37] LABS: Lactic Acid 0.6 mmol/L (0.7-2.1)
[2024-11-01 16:49] LABS: NT Pro Brain Natriuretic Pep. 1200 pg/mL (0-450)
[2024-11-01] MEDS: LACTATED RINGERS 1000ML 1,000 ML 999 ML IV (17:12)
--- NOTE | 2024-11-01 17:22 | HMH.EDGENADL ---
Discharge Plan Disposition Patient Disposition: Admitted Clinical Impressions Clinical Impression: REBECCA (acute kidney injury), AMS (altered mental status), Recurrent UTI Discharge ED Provider: Bing Kerns General Adult HPI General Chief complaint: Weakness Stated complaint: LETHARGIC/ALTERED MENTAL Time Seen by Provider: 11/01/24 15:14 Mode of Arrival: EMS Source of Information: Patient, EMS and Medical Record Description of Symptoms (Recalled from ER Triage Doc. by RN): c/o lethargic 30 mins after taking her prescribed pain medicine, pt denies any symptoms at this time, pt reports that she takes 2 pain pills, mar shows one tab. Per halfway nurse pt was like this last time they were sepsis. History of Present Illness HPI narrative: This patient is a 79-year-old female with a history of COPD, non-Hodgkin's lymphoma, hypertension, bipolar disorder, CKD 3, bipolar disorder, anxiety presenting to the emergency department for evaluation with concern for altered mental status. According to nursing facility, she is more tired and altered than usual. This was noted 30 minutes after being given her pain medication. On my assessment of the patient, she states that she is been having some urinary issues. She does not further elaborate. Overall otherwise she denies any concerns or complaints. She is alert and oriented to person, time, but not place or why she is here. She denies any pain currently at this time. Related Data Home Medications ?Medication ?Instructions ?Recorded ?Confirmed divalproex 250 mg tablet,delayed 250 mg PO DAILY 06/23/24 11/01/24 release ascorbic acid (vitamin C) 500 mg 500 mg PO BID 06/29/24 11/01/24 capsule loperamide 2 mg capsule 2 mg PO Q3HP PRN Diarrhea 10/02/24 11/01/24 ondansetron 4 mg disintegrating 4 mg PO Q6HP PRN Nausea And 10/02/24 11/01/24 tablet Vomiting acetaminophen 325 mg tablet 650 mg PO QIDP PRN pain and fever 10/03/24 11/01/24 (Tylenol) furosemide 40 mg tablet 40 mg PO DAILY 10/03/24 11/01/24 melatonin 5 mg tablet 5 mg PO HS 10/03/24 11/01/24 quetiapine 25 mg tablet 12.5 mg PO HS 10/03/24 11/01/24 Previous Rx's ?Medication ?Instructions ?Recorded fluticasone propionate 50 1 spray intranasal DAILY #16 grams 06/23/24 mcg/actuation nasal spray,suspension loratadine 10 mg tablet 10 mg PO DAILY #90 tabs 06/23/24 metoprolol tartrate 25 mg tablet 12.5 mg (1/2 x 25 mg) PO BID #30 06/23/24 tabs omeprazole 20 mg capsule,delayed 20 mg PO DAILY #90 caps 06/23/24 release potassium chloride 10 mEq 10 meq PO DAILY #30 tabs 06/23/24 tablet,extended release clonazepam 0.5 mg tablet 0.5 mg PO BID #60 tabs 09/05/24 pregabalin 100 mg capsule 100 mg PO TID #90 caps 10/10/24 oxycodone-acetaminophen 7.5 mg-325 1 tab PO TID #90 tabs 10/24/24 mg tablet Allergies Allergy/AdvReac Type Severity Reaction Status Date / Time codeine Allergy Verified 10/10/24 14:06 naproxen (From Anaprox) Allergy Verified 10/10/24 14:06 latex AdvReac Mild Verified 10/10/24 14:06 PFSH [facility] Disclaimer: The information contained in this section may have been updated after the patient was seen, as this information can be updated by other users. Medical History Altered mental status Decreased sensation of lower extremity Decreased pedal pulses Dysuria Acute UTI Chronic kidney disease, stage 3 unspecified COPD (chronic obstructive pulmonary disease) History of fall Edema of both lower extremities Age-related physical debility Anxiety Bipolar 1 disorder Body mass index [BMI] 34.0-34.9, adult Chronic venous hypertension (idiopathic) with ulcer of right lower extremity Depression Hypertensive chronic kidney disease Non-Hodgkin lymphoma Macrocytic anemia H/O lymphoma HTN (hypertension), benign Surgical History H/O cataract extraction History of vaginal delivery H/O bilateral breast reduction surgery Family History Other Unknown family medical history Social History Smoking Status: Unknown if ever smoked alcohol intake: never substance use type: denies use current occupational status: other Travel in the last 8 weeks: None marital status: number of children: 2 Other Medical History Have you received the Flu Vaccine for this season: No Have you received the Pneumonia Vaccine: Yes ROS Obtained: Yes All systems reviewed & no additional complaints except as documented Physical Exam General General appearance: alert, in no apparent distress and obese Head Head exam: atraumatic and normocephalic Eye Eye exam: Present normal appearance, PERRL and EOMI ENT ENT exam: Present normal exam, normal oropharynx, mucous membranes moist and normal external ear exam Neck Neck exam: Present normal inspection, full ROM and trachea midline; Absent tenderness Chest Chest inspection: Present normal inspection and symmetric chest wall rise; Absent tenderness Respiratory Respiratory exam: Present normal lung sounds bilaterally; Absent respiratory distress, wheezes, stridor or accessory muscle use Cardiovascular Cardiovascular exam: Present regular rate and normal rhythm Abdominal Exam Abdominal exam: Present soft; Absent distention, tenderness or guarding Extremities Exam Extremities exam: Present normal inspection, full ROM and normal capillary refill; Absent tenderness or edema Back Exam Back exam: Present normal inspection and full ROM; Absent tenderness Neurological Exam Neurological exam: Present alert, oriented X3, CN II-XII intact and normal gait; Absent motor sensory deficit Psychiatric Psychiatric exam: Present normal affect and normal mood Skin Skin exam: Present warm and dry Medical Decision Making Medical Records Medical records reviewed: Yes I reviewed the patient's medical records. Screening: Per USPSTF and CDC recommendations, given the prevalence of disease in our region, it is our hospital?s policy to screen for HIV and viral Hepatitis for all patients aged 18 and over and those with ongoing risk factors. Dev Inquiry Pt receiving controlled substance: No Vital Signs: 11/01/24 14:39 11/01/24 15:09 11/01/24 15:31 Temperature 98.6 F Temperature Source Oral Pulse Rate 107 H 102 H Pulse Rate [Left Radial] 103 H Respiratory Rate 16 Blood Pressure 106/63 L 156/85 H Blood Pressure [Right Arm] 106/63 L Blood Pressure Mean [Right Arm] 77 Blood Pressure Source [Right Arm] Blood Pressure Position [Right Arm] 02 Sat by Pulse Oximetry 97 96 97 Oxygen Delivery Method Nasal Cannula Nasal Cannula Nasal Cannula Oxygen Flow Rate (LPM) 3 11/01/24 16:30 11/01/24 17:00 11/01/24 17:30 Temperature Temperature Source Pulse Rate 90 91 H 86 Pulse Rate [Left Radial] Respiratory Rate 34 H 31 H 22 Blood Pressure 142/74 H 126/72 125/74 Blood Pressure [Right Arm] Blood Pressure Mean [Right Arm] Blood Pressure Source [Right Arm] Blood Pressure Position [Right Arm] 02 Sat by Pulse Oximetry 100 99 100 Oxygen Delivery Method Nasal Cannula Oxygen Flow Rate (LPM) 11/01/24 18:00 11/01/24 18:24 11/01/24 18:30 Temperature Temperature Source Pulse Rate 81 83 Pulse Rate [Left Radial] Respiratory Rate 24 34 H Blood Pressure 127/72 127/74 Blood Pressure [Right Arm] Blood Pressure Mean [Right Arm] Blood Pressure Source [Right Arm] Blood Pressure Position [Right Arm] 02 Sat by Pulse Oximetry 100 99 Oxygen Delivery Method Nasal Cannula Nasal Cannula Nasal Cannula Oxygen Flow Rate (LPM) 3 11/01/24 18:47 11/01/24 18:48 11/01/24 19:19 Temperature 97.9 F 97.9 F Temperature Source Oral Pulse Rate 80 Pulse Rate [Left Radial] 80 Respiratory Rate 18 18 Blood Pressure 138/80 Blood Pressure [Right Arm] 138/80 Blood Pressure Mean [Right Arm] 99 Blood Pressure Source [Right Arm] Automatic Cuff Blood Pressure Position [Right Arm] Supine 02 Sat by Pulse Oximetry 100 Oxygen Delivery Method Nasal Cannula Nasal Cannula Nasal Cannula Oxygen Flow Rate (LPM) 3 3 3 Lab Data Lab results reviewed: Yes I reviewed the patient's lab results. Lab Results 11/01/24 15:22: WBC 7.8, RBC 3.41 L, Hgb 11.1 L, Hct 34.5 L, MCV 101.2 H, MCH 32.6 H, MCHC 32.2, RDW 13.5, Plt Count 344, MPV 9.6, Neut % (Auto) 34.9 L, Lymph % (Auto) 46.9, Holmes % (Auto) 14.7 H, Eos % (Auto) 2.7, Baso % (Auto) 0.5, Neut # (Auto) 2.7, Lymph # (Auto) 3.7, Holmes # (Auto) 1.2 H, Eos # (Auto) 0.2, Baso # (Auto) 0.0, Sodium 140, Potassium 4.7, Chloride 107, Carbon Dioxide 24, Anion Gap 13.7, BUN 54 H, Creatinine 2.40 H, Estimated Creat Clear 30, Estimated GFR 20 L, Est GFR ( Amer) 24 L, Glucose 101 H, Lactate 0.6 L, Calcium 9.0, Total Bilirubin 0.7, AST 29, ALT 12, Alkaline Phosphatase 102, Troponin I < 0.01, NT-Pro-B Natriuret Pep 1200 H, Total Protein 5.6 L, Albumin 3.8, Globulin 1.8, Albumin/Globulin Ratio 2.1 H, Urine Color Yellow, Urine Appearance Cloudy, Urine pH 5.5, Ur Specific Severance 1.025, Urine Protein 2+ A, Urine Glucose (UA) Negative, Urine Ketones 1+, Urine Blood 2+ A, Urine Nitrate Negative, Urine Bilirubin Negative, Urine Urobilinogen 1.0, Ur Leukocyte Esterase 2+ A, Urine RBC 5-10, Urine WBC Tntc, Ur Squamous Epith Cells 3-5, Urine Bacteria 4+, HCV Ab NARAYAN w/Rflx PCR Qn Negative, HIV Ag/Ab Combo Qual Negative 11/01/24 15:36: VBG pH 7.34, VBG pCO2 39.6, VBG pO2 105.1 H, VBG HCO3 20.7 L, VBG Total CO2 21.9 L, VBG O2 Saturation 97.8 H, VBG Base Excess -5.1 L, VBG Lactic Acid 1.0 11/01/24 15:55: SARS-CoV-2 (PCR) Not detected, Influenza A Untype (PCR) Not detected, Influenza Type B (PCR) Not detected 11/01/24 15:22 11/01/24 15:22 Orders (Tests/Meds): ED MEDICATIONS Generic Name Dose Route Start Last Admin Trade Name Freq PRN Reason Stop Dose Admin Acetaminophen 650 mg 11/01/24 20:57 Acetaminophen 325mg Tab PO 12/01/24 20:56 Q4HP PRN Fever or Mild Pain (1-3) Heparin Sodium (Porcine) 5,000 unit 11/01/24 21:00 11/01/24 21:51 Heparin Sodium 5,000 Unit/Ml Vial SUBCUT 12/01/24 20:59 5,000 unit BID FREDIS Administration Lactated Ringer's 1,000 mls @ 100 mls/hr 11/01/24 18:15 11/01/24 19:34 Lactated Ringer's 1000 Ml Bag IV 11/02/24 04:14 100 mls/hr .Q10H FREDIS Administration Ceftriaxone Sodium 1 gm/ 50 mls @ 100 mls/hr 11/02/24 18:00 Sodium Chloride IV 11/12/24 17:59 Q24H FREDIS Ondansetron HCl 4 mg 11/01/24 20:57 Ondansetron 4mg/2ml Vial IV 12/01/24 20:56 Q8HP PRN Nausea Discontinued Medications Generic Name Dose Route Start Last Admin Trade Name Freq PRN Reason Stop Dose Admin Lactated Ringer's 1,000 mls @ 999 mls/hr 11/01/24 16:57 11/01/24 17:12 Lactated Ringer's 1000 Ml Bag IV 11/01/24 17:57 999 mls/hr .Q1H1M ONE Administration Ceftriaxone Sodium 1 gm/ 50 mls @ 100 mls/hr 11/01/24 18:08 11/01/24 20:41 Sodium Chloride IV 11/01/24 18:37 100 mls/hr ONCE ONE Administration ORDERS Category Date Time Status CT abdomen pelvis wo con Stat Cat Scan 11/01/24 15:[address] head/brain wo con Stat Cat Scan 11/01/24 15:33 Completed CXR --portable [XR chest portable] Stat Exams 11/01/24 15:33 Completed BNP [NT Pro Brain Natriuretic Pep.] Stat Lab 11/01/24 15:22 Completed Complete Blood Count Auto Diff AMLAB Lab 11/02/24 06:00 Ordered Complete Blood Count Auto Diff Stat Lab 11/01/24 15:22 Completed Comprehensive Metabolic Panel AMLAB Lab 11/02/24 06:00 Ordered Comprehensive Metabolic Panel Stat Lab 11/01/24 15:22 Completed HIV Combo Stat Lab 11/01/24 15:22 Completed Hepatitis C Ab Qual. W/ RFX Stat Lab 11/01/24 15:22 Completed Lactic Acid Stat Lab 11/01/24 15:22 Completed Magnesium AMLAB Lab 11/02/24 06:00 Ordered Rapid PCR Covid and Flu A/B Stat Lab 11/01/24 15:55 Completed Trop I [Troponin I] Stat Lab 11/01/24 15:22 Completed Troponin I Q3H Lab 11/01/24 18:35 Completed Troponin I Q3H Lab 11/01/24 22:05 Completed UA [Urinalysis and Microscopic] Stat Lab 11/01/24 15:22 Completed Blood Culture Stat Micro 11/01/24 15:55 Received Urine Culture Stat Micro 11/01/24 15:22 Received VBG [Venous Blood Gas] Stat RT 11/01/24 15:36 Completed ECG Data Tracing #1: I reviewed this ECG and interpreted as documented below: Normal sinus rhythm with a ventricular rate of 97 bpm. Left anterior fascicular block. No acute ST changes concerning for ischemia. ECG initial impression date: 11/01/24 ECG initial impression time: 16:30 Medical Decision Narrative: In summary, this patient is a 79-year-old female presenting to the Emergency Department for evaluation of reported altered mental status at nursing facility and she complains of urinary symptoms. Differential diagnoses considered include but are not limited to urinary tract infection, pyelonephritis, ureterolithiasis, metabolic derangement, REBECCA. Ruling out the most morbid conditions drove assessment. It should be noted patient's history includes COPD, CKD 3, hypertension, bipolar disorder which may or may not be at goal therapy. She also has chronic sacral wound as well as venous stasis ulcers in her lower extremities. This complicates all aspects of care by increasing patient's risk for morbidity. I reviewed patient's past medical records and noted admission 10/02/2024 for acute UTI. She has prior culture showing Proteus On exam, the patient is lying in bed in no acute distress. Vitals are reassuring on cardiac telemetry, cardiopulmonary exam is benign, abdominal exam is benign. Workup included broad lab evaluation to evaluate for infectious, metabolic, cardiac etiologies of altered mental status. EKG was obtained is reassuring. Given urinary symptoms, obtain CT abdomen and pelvis without IV contrast. For altered mental status workup, also obtained CT head without contrast and chest x-ray. I independently interpreted CT head, chest x-ray, CT abdomen prior to the radiologist read and noted intracranial hemorrhage or space-occupying brain lesion, no large pneumonia, no hydronephrosis. She does have bladder wall thickening. Please see their read for final interpretation. Labs were obtained that demonstrated reassuring CBC with no significant leukocytosis. She has stable chronic anemia. She does have an REBECCA with a creatinine of 2.4 her most recent assessment 0.9 10/04/2024. Troponin negative. BNP is 1200 without prior for comparison. Urine is concerning for infection. On reassessment, patient is resting comfortably. She is given Rocephin and a bolus of IV fluids for UTI and REBECCA. I do not feel that she is septic, send a sepsis bolus given. I had an interactive discussion with the hospitalist who admitted the patient in stable condition. Critical Care Critical Care Time Critical Care Time: No
[2024-11-01 17:37] LABS: HIV Combo NEGATIVE (Negative)
[2024-11-01 17:44] LABS: Hepatitis C Ab Qual. W/ RFX NEGATIVE (Negative)
[2024-11-01 18:04] LABS: Bilirubin,Urine Negative (Negative); Blood, Urine 2+ (Negative); Color,Urine YELLOW (Yellow); Glucose,Urine (UA) Negative (Negative); Ketones,Urine 1+ (Negative); Leukocyte Esterase,Urine 2+ (Negative); Nitrate,Urine Negative (Negative); PH,Urine 5.5 (5.0-8.5); Protein,Urine 2+ (Negative); Specific Gravity, Urine 1.025 (1.005-1.030)
--- NOTE | 2024-11-01 18:09 | PC.NURSE ---
HOUSE IS AWARE OF ADMISSION FOR REBECCA & UTI.
[2024-11-01 18:18] LABS: Appearance,Urine Cloudy (Clear)
--- NOTE | 2024-11-01 18:27 | PC.NURSE ---
report called to silva on second floor
--- NOTE | 2024-11-01 18:47 | PC.NURSE ---
arrived by stretcher from ED
--- NOTE | 2024-11-01 19:16 | PC.NURSE ---
pt arrived to the floor via stretcher at 1850. on 3L NC. purewick in place. abx given per mar. no complaints at this time. call light within reach.
[2024-11-01] MEDS: LACTATED RINGERS 1000ML 1,000 ML 100 ML IV (19:34)
--- NOTE | 2024-11-01 20:00 | P.HP_ITS ---
<Statement entered by Rui Finley MD - 11/02/24 13:10> Rounded on patient after nurse practitioner. Personally examined and interviewed patient. Agree with exam findings and care plan as documented. History of Present Illness *Admission Date: 11/01/24 *Reason for visit:: AMS *History of present illness: The patient is a 79-year-old female with a history of COPD, non-Hodgkin?s lymphoma, hypertension, bipolar disorder, CKD stage 3, anxiety, chronic sacral wound, and venous stasis ulcers, who presented to the emergency department from her nursing facility for evaluation of altered mental status. Per facility staff, she appeared more tired and altered than usual, noted 30 minutes after receiving Percocet (oxycodone/acetaminophen, dose unspecified) for pain. On my exam, she was alert and oriented to person and time but not place or purpose, reporting urine issues without elaboration, and denying pain, fever, chills, or other symptoms. Vitals were stable on telemetry (HR 80s, BP 130/70s , SpO2 94% on room air), with benign cardiopulmonary and abdominal exams. Labs showed Cr 2.40 (eGFR 20, up from 0.9 on 10/04/2024), BUN 54, Hgb 11.1 (stable anemia), BNP 1200 (no prior), troponin <0.01, and UA with 2+ protein, blood, leukocytes, and bacteria (UTI likely). VBG (15:36) revealed pH 7.34, pCO2 39.6, pO2 105.1, HCO3 20.7, base excess -5.1 (mild metabolic acidosis). CT head was negative for ICH or lesion. Chest X-ray showed chronic bilateral upper lobe changes, no acute infiltrate, effusion, or pneumothorax, with a left-sided chest port and normal heart size. CT abdomen/pelvis (no contrast) showed no hydronephrosis, with bladder wall thickening (informal read). Negative COVID/flu PCRs. Differential includes UTI with REBECCA (likely), opioid effect from Percocet (post-dose AMS), encephalopathy (metabolic/lymphoma), or bipolar decompensation (less likely). Chart review notes a 10/02/2024 admission for UTI (Proteus), suggesting recurrence risk. ED workup ruled out acute cardiac/neuro causes, but altered status, REBECCA, and UTI prompted admission. After discussion with Emergency medicine, she was admitted in stable condition for further management. [facility] Disclaimer: The information contained in this section may have been updated after the patient was seen, as this information can be updated by other users. Medical History Altered mental status Decreased sensation of lower extremity Decreased pedal pulses Dysuria Acute UTI Chronic kidney disease, stage 3 unspecified COPD (chronic obstructive pulmonary disease) History of fall Edema of both lower extremities Age-related physical debility Anxiety Bipolar 1 disorder Body mass index [BMI] 34.0-34.9, adult Chronic venous hypertension (idiopathic) with ulcer of right lower extremity Depression Hypertensive chronic kidney disease Non-Hodgkin lymphoma Macrocytic anemia H/O lymphoma HTN (hypertension), benign Surgical History H/O cataract extraction History of vaginal delivery H/O bilateral breast reduction surgery Family History Other Unknown family medical history Social History Smoking Status: Unknown if ever smoked alcohol intake: never substance use type: denies use current occupational status: other Travel in the last 8 weeks: None marital status: number of children: 2 Other Medical History Have you received the Flu Vaccine for this season: No Have you received the Pneumonia Vaccine: No Review of Systems Review of Systems Review of systems (narrative): 13 point review of systems negative except as listed in HPI Meds Home Medications and Allergies Home Medications ?Medication ?Instructions ?Recorded ?Confirmed ?Type divalproex 250 mg tablet,delayed 250 mg PO DAILY 06/23/24 11/01/24 History release fluticasone propionate 50 1 spray intranasal DAILY #16 grams 06/23/24 11/01/24 Rx mcg/actuation nasal spray,suspension loratadine 10 mg tablet 10 mg PO DAILY #90 tabs 06/23/24 11/01/24 Rx metoprolol tartrate 25 mg tablet 12.5 mg (1/2 x 25 mg) PO BID #30 06/23/24 11/01/24 Rx tabs omeprazole 20 mg capsule,delayed 20 mg PO DAILY #90 caps 06/23/24 11/01/24 Rx release potassium chloride 10 mEq 10 meq PO DAILY #30 tabs 06/23/24 11/01/24 Rx tablet,extended release ascorbic acid (vitamin C) 500 mg 500 mg PO BID 06/29/24 11/01/24 History capsule clonazepam 0.5 mg tablet 0.5 mg PO BID #60 tabs 09/05/24 11/01/24 Rx loperamide 2 mg capsule 2 mg PO Q3HP PRN Diarrhea 10/02/24 11/01/24 History ondansetron 4 mg disintegrating 4 mg PO Q6HP PRN Nausea And 10/02/24 11/01/24 History tablet Vomiting acetaminophen 325 mg tablet 325 mg PO QIDP PRN pain and fever 10/03/24 11/02/24 History (Tylenol) furosemide 40 mg tablet 40 mg PO DAILY 10/03/24 11/01/24 History melatonin 5 mg tablet 5 mg PO HS 10/03/24 11/01/24 History quetiapine 25 mg tablet 12.5 mg PO HS 10/03/24 11/01/24 History acetaminophen 500 mg tablet 500 mg PO TID 11/02/24 11/02/24 History oxycodone-acetaminophen 5 mg-325 1 tab PO TID 11/02/24 11/02/24 History mg tablet pregabalin 100 mg capsule 100 mg PO BID 11/02/24 11/02/24 History sennosides 8.6 mg tablet (senna) 17.2 mg PO HS 11/02/24 11/02/24 History New Prescriptions to Start Prescriptions: Allergies Allergy/AdvReac Type Severity Reaction Status Date / Time codeine Allergy Verified 10/10/24 14:06 naproxen (From Anaprox) Allergy Verified 10/10/24 14:06 latex AdvReac Mild Verified 10/10/24 14:06 Exam Data for Last 24 hours Vital signs and Labs for Last 24 Hours: Temp Pulse Resp BP Pulse Ox O2 Del Method O2 Flow Rate 97.9 F 80 18 138/80 100 Nasal Cannula 3 11/01/24 19:19 11/01/24 19:19 11/01/24 19:19 11/01/24 19:19 11/01/24 18:47 11/01/24 19:19 11/01/24 19:19 Laboratory Results - last 24 hr 11/01/24 15:22: WBC 7.8, RBC 3.41 L, Hgb 11.1 L, Hct 34.5 L, MCV 101.2 H, MCH 32.6 H, MCHC 32.2, RDW 13.5, Plt Count 344, MPV 9.6, Neut % (Auto) 34.9 L, Lymph % (Auto) 46.9, [place] % (Auto) 14.7 H, Eos % (Auto) 2.7, Baso % (Auto) 0.5, Neut # (Auto) 2.7, Lymph # (Auto) 3.7, [place] # (Auto) 1.2 H, Eos # (Auto) 0.2, Baso # (Auto) 0.0, Sodium 140, Potassium 4.7, Chloride 107, Carbon Dioxide 24, Anion Gap 13.7, BUN 54 H, Creatinine 2.40 H, Estimated Creat Clear 30, Estimated GFR 20 L, Est GFR ( Amer) 24 L, Glucose 101 H, Lactate 0.6 L, Calcium 9.0, Total Bilirubin 0.7, AST 29, ALT 12, Alkaline Phosphatase 102, Troponin I < 0.01, NT-Pro-B Natriuret Pep 1200 H, Total Protein 5.6 L, Albumin 3.8, Globulin 1.8, Albumin/Globulin Ratio 2.1 H, Urine Color Yellow, Urine Appearance Cloudy, Urine pH 5.5, Ur Specific [place] 1.025, Urine Protein 2+ A, Urine Glucose (UA) Negative, Urine Ketones 1+, Urine Blood 2+ A, Urine Nitrate Negative, Urine Bilirubin Negative, Urine Urobilinogen 1.0, Ur Leukocyte Esterase 2+ A, Urine RBC 5-10, Urine WBC Tntc, Ur Squamous Epith Cells 3-5, Urine Bacteria 4+, HCV Ab NARAYAN w/Rflx PCR Qn Negative, HIV Ag/Ab Combo Qual Negative 11/01/24 15:36: VBG pH 7.34, VBG pCO2 39.6, VBG pO2 105.1 H, VBG HCO3 20.7 L, VBG Total CO2 21.9 L, VBG O2 Saturation 97.8 H, VBG Base Excess -5.1 L, VBG Lactic Acid 1.0 11/01/24 15:55: SARS-CoV-2 (PCR) Not detected, Influenza A Untype (PCR) Not detected, Influenza Type B (PCR) Not detected I & O for Last 24 hours: Intake & Output 10/29/24 10/30/24 10/31/24 11/01/24 23:59 23:59 23:59 23:59 Weight 98.004 kg Constitutional Constitutional: no acute distress *Routine HEENT Exam Head: Present normocephalic Eye: Present EOMI and PERRL ENT: Present mucous membranes moist *Routine Neck Exam Neck: Present supple; Absent lymphadenopathy *Routine Respiratory Exam Respiratory: Present CTA bilaterally *Routine Cardiovascular Exam Cardiovascular: Present RRR *Routine Abdominal Exam Abdominal: Present soft and normoactive bowel sounds; Absent tenderness *Routine Rectal Exam Rectal:: deferred *Routine Genitalia Exam Genitalia:: deferred *Routine Extremities Exam Extremities: Absent cyanosis, clubbing or edema *Routine Skin Exam Skin: Present warm; Absent rash *Routine Neurological Exam Neurological: Present alert and oriented X3 Assessment and Plan *Assessment and plan (1) Recurrent UTI: Status: Acute Category: Medical Code(s): N39.0 - Urinary tract infection, site not specified (2) AMS (altered mental status): Status: Acute Category: Medical Code(s): R41.82 - Altered mental status, unspecified (3) REBECCA (acute kidney injury): Status: Acute Category: Medical Code(s): N17.9 - Acute kidney failure, unspecified (4) Altered mental status: Status: Acute Category: Medical Code(s): R41.82 - Altered mental status, unspecified Plan * Altered mental status (likely UTI and opioid effect) * Pertinent Info: AMS post-Percocet (oxycodone/acetaminophen, dose unspecified), oriented to person/time but not place/purpose. UA with 2+ leukocytes, blood, bacteria (UTI likely); Cr 2.40 (eGFR 20, REBECCA from 0.9 on 10/04/2024). BNP 1200 (mild volume vs. chronic). Negative head CT rules out ICH/mass; VBG pH 7.34, normal CO2/O2. No fever, pain. Home quetiapine/divalproex stable. * Hold Percocet; switch to acetaminophen 650 mg PO q6h PRN pain (CKD safer). * Monitor mental status * Further imaging in 24h to r/o encephalopathy (lymphoma, metabolic). * Telemetry for arrhythmia (BNP 1200, HTN history). * Urinary tract infection (UTI) with REEBCCA * Pertinent Info: Vague urinary issues, UA 2+ leukocytes, blood, bacteria 4+, WBC too numerous to count; prior Proteus UTI (10/02/2024). Cr 2.40 (baseline 0.9), eGFR 20, BUN 54. No fever, flank pain; CT abdomen no hydronephrosis, bladder thickening noted. * Continue IV ceftriaxone for complicated UTI; await urine culture (expect Proteus, MDR risk based on previous culture, may need escalation). * Blood cultures x2 if fever spikes (r/o bacteremia); * IV NS 100 mL/h x 24h to support REBECCA; monitor urine output (hernandez if needed, goal >0.5 mL/kg/h). * Trend Cr/BUN q24 * Duration: 7-10 days antibiotics (adjust per culture). * Chronic kidney disease (CKD 3, worsened to REBECCA) * Pertinent Info: Cr 2.40, eGFR 20 (from 0.9, 10/04/2024); BUN 54. UTI and dehydration likely; furosemide 40 mg PO home. * Hold furosemide until REBECCA resolves (volume needed now); adjust meds for eGFR 20 (e.g., ceftriaxone safe). * Strict I/Os, daily weights; renal US if no Cr improvement in 48h (r/o obstruction). * Monitor K 4.7 (Percocet metabolism risk); replete if <3.5. * Mild anemia (chronic) * Pertinent Info: Hgb 11.1, Hct 34.5, MCV 101.2 (macrocytic), stable per history. Lymphoma-related vs. B12/folate; no bleed signs. * Monitor Hgb q24h; transfuse if <7 or symptomatic (stable now). * COPD (stable) * Pertinent Info: Chest X-ray with chronic upper lobe changes, no acute infiltrate. No dyspnea, wheezes; VBG pO2 105.1 on RA. * Continue home O2 if used (not listed); albuterol MDI 2 puffs q4h PRN. * Monitor SpO2 q4h; O2 PRN if <92% (stable RA now). * Non-Hodgkin?s lymphoma (chronic) * Pertinent Info: Left chest port present; no fever, nodes on CXR/CT. BNP 1200, AMS could tie to paraneoplastic. * Oncology consult if AMS persists or lymphoma relapse suspected (e.g., nodes, systemic signs). * Monitor for infection (port risk); trend CBC q24h. * Sacral wound/venous stasis ulcers * Pertinent Info: Chronic, no fever/purulence noted. UA suggests UTI, not wound source. Chronic venous stasis ulcer right lower extremity * Wound care q shift; assess for cellulitis * Cultures if infected; continue ceftriaxone coverage. * Supportive care * DVT prophylaxis: Heparin 5000 units SC BID (eGFR-adjusted). * Diet: Regular, advance as tolerated; no fluids beyond REBECCA support. * Resume home meds (divalproex, quetiapine, etc.) unless AMS worsens. * Social work to coordinate with facility for med/discharge plan. Disposition: The patient will be admitted to the medical floor under the hospitalist service for AMS (UTI and Percocet effect likely), UTI with REBECCA, and CKD 3 monitoring. She requires antibiotics (ceftriaxone), opioid adjustment, and renal support, with an anticipated stay of 3-7 days, pending AMS resolution and Cr improvement. ICU transfer if AMS progresses (e.g., unresponsive), sepsis develops (e.g., fever, lactate >4), or REBECCA worsens (e.g., Cr >4).
[2024-11-01 20:18] LABS: WBC,Urine TNTC #/hpf (0-3)
[2024-11-01 20:20] LABS: Bacteria,Urine 4+ /lpf
[2024-11-01] MEDS: CEFTRIAXONE SODIUM 1 GM in 0.9 % SODIUM CHLORIDE 50 ML IV (20:41)
[2024-11-01 21:12] LABS: Troponin I < 0.01 ng/ml (0.00-0.034)
[2024-11-01] MEDS: HEPARIN SODIUM 5,000 UNIT/ML VIAL 5000 UNIT SUBCUT (21:51)
[2024-11-02] VITALS: BP 119/66; PULSE 78; RESP 16; TEMP 36.5; O2SAT 96
[2024-11-02 00:53] LABS: Troponin I < 0.01 ng/ml (0.00-0.034)
[2024-11-02 04:00] VITALS: BP 131/95; PULSE 92; RESP 16; TEMP 36.6; O2SAT 94; BMI 33.4
[2024-11-02] MEDS: ACETAMINOPHEN 325MG TAB 650 MG PO (04:17)
--- NOTE | 2024-11-02 04:53 | PC.NURSE ---
patient has rested well this shift. patient is alert and oriented with periods of confusion. patient complained of pain in ankles and was medicated with tylenol per mar with favorable outcome. patient O2 weaned from 3L to RA. call button is in reach
[2024-11-02 08:00] VITALS: BP 112/55; PULSE 73; RESP 17; TEMP 36.6; O2SAT 95
--- NOTE | 2024-11-02 08:58 | HMH.PHAINT1 ---
Pharmacy Intervention Comments: HOME MEDICATION LIST VERIFIED USING LIST [facility]
[2024-11-02 09:23] LABS: Basophils % 0.3 % (0.1-2.0); Eosinophils # 0.3 K/mm3 (0.0-0.4); Eosinophils % 5.2 % (0.1-12.0); Hematocrit 35.6 % (37.0-47.0); Hemoglobin 11.5 g/dL (12.2-16.2); Lymphocytes # 2.2 K/mm3 (0.7-4.5); Lymphocytes % 37.7 % (10-50); Mean Corpuscular HGB Conc 32.3 g/dL (31.8-35.4); Mean Corpuscular Hemoglobin 32.8 pg (27.0-31.2); Mean Corpuscular Volume 101.4 fl (81-99); Mean Platelet Volume 9.4 fl (7.4-10.4); Monocytes # 0.8 K/mm3 (0.1-1.0); Monocytes % 13.4 % (1.7-9.3); Neutrophils # 2.4 K/mm3 (1.8-7.8); Neutrophils % 42.5 % (37.0-80.0); Platelet Count 291 K/mm3 (142-424); Red Blood Count 3.51 M/mm3 (4.20-5.40); Red Cell Distribution Width 13.2 % (11.5-17.5); White Blood Count 5.8 K/mm3 (4.8-10.8)
[2024-11-02] MEDS: FLUTICASONE PROP 50MCG NASAL SPRAY 16GM 1 SPRAY NS (09:26)
[2024-11-02] MEDS: DIVALPROEX 250MG (Delayed-Release) TABLET 250 MG PO (09:27)
[2024-11-02] MEDS: METOPROLOL TARTRATE 25MG TABLET 12.5 MG PO (09:27)
[2024-11-02] MEDS: HEPARIN SODIUM 5,000 UNIT/ML VIAL 5000 UNIT SUBCUT (09:27)
[2024-11-02] MEDS: ASCORBIC ACID 500MG TAB 500 MG PO (09:27)
[2024-11-02] MEDS: LORATADINE 10MG TABLET 10 MG PO (09:27)
[2024-11-02] MEDS: PREGABALIN 100MG CAPSULE 100 MG PO (09:28)
--- NOTE | 2024-11-02 09:34 | SW/DCPLANNER ---
Addendum entered by Tabitha Hardwick 11/02/24 12:49: I have updated Diana hanna/ Nilton Santos that patient will return today [facility] level of care. Original Note: This patient currently resides at [facility] level of care. I will continue to update Diana hanna/ Nilton Santos until patient is medically stable for discharge. Discharge date is unknown at this time.
[2024-11-02 10:57] LABS: Alanine Aminotransferase 12 U/L (12-78); Albumin Level 3.5 g/dl (3.5-5.0); Albumin/Globulin Ratio 2.3 (1.1-1.8); Alkaline Phosphatase 94 U/L (38-126); Anion Gap 12.3 mEq/L (5-15); Aspartate Amino Transferase 23 U/L (14-36); Bilirubin,Total 0.6 mg/dl (0.2-1.3); Blood Urea Nitrogen 42 mg/dl (7-17); Calcium 9.3 mg/dl (8.4-10.2); Carbon Dioxide 26 mmol/L (22.0-30.0); Chloride 106 mmol/L (98-107); Creatinine Clearance Estimated 57 mL/min (50-200); Estimated Glomerular Filt Rate 40 ml/min (>60); GFR (African American) 48 ML/MIN (>60); Globulin 1.5 g/dL (1.3-3.2); Glucose 90 mg/dl (74-100); Magnesium 1.7 mg/dl (1.6-2.3); Potassium 4.3 mmoL/L (3.5-5.1); Sodium 140 mmol/L (136-145)
--- NOTE | 2024-11-02 11:30 | HMH.PTEV ---
Physical Therapy Evaluation Rehab PT IP Evaluation Start: 11/01/24 20:57 Freq: ONCE Status: Active Protocol: Document 11/02/24 11:25 JUAN CARLOS (Rec: 11/02/24 11:30 PHOCAROLANN [id number]) Subjective/History History History 79-year-old female with a history of COPD, non-Hodgkin?s lymphoma, hypertension, bipolar disorder, CKD stage 3, anxiety, chronic sacral wound , and venous stasis ulcers, who presented to the emergency department from her nursing facility for evaluation of altered mental status. Per facility staff, she appeared more tired and altered than usual, noted 30 minutes after receiving Percocet (oxycodone/ acetaminophen, dose unspecified) for pain. She is a SNF resident at baseline and requires assistance with all mobility at baseline. Subjective Subjective Pt c/o pain in the R lower leg at site of a previous wound which has been healed for some time. She reluctantly agrees to mobility assessment this am . [facility] How much help from another person do you currently need... Turning from your back to your side A lot while in a flat bed without using bedrails? Moving from lying on back to sitting on Total the side of a flat bed without using bedrails? Moving to and from a bed to a chair ( Total including a wheelchair)? Standing up from a chair using your arms Total ? (e.g., wheelchair, bedside chair) Walking in hospital room? Total Climbing 3-5 steps with a railing? Total Mobility Score 7 Mobility Level [facility] Mobility Calculator Mobility 2 Bed activities/ dependent transfer Rehab PT IP Eval Objective Appearance Patient Behavior Appropriate Patient Orientation Person,Place,Time Difficulty following instructions none Speech Pattern Clear Ambulation Patient Able to Ambulate No Balance Ability to Arise Able, uses arms to help Sitting Balance Steady, safe Dynamic Sitting Balance Ability Fair Transfers Bed Transfer Ability Maximum x 1 (75% assist) Chair Transfer Ability Total/Dependent (100%) Rehab PT IP prob,goals,plan Problems Date of Evaluation: 11/02/24 Rehab Potential Rehab Potential Innapropriate for Skilled Therapy Discharge Plan PT Discharge Plan Pt requires dependent assistance for any transfer from bed to chair at this time , recommend using lift for transfers. She is most appropriate to return to SNF once medically stable for d/c. Currently not appropriate for skilled inpatient acute therapy services. Eval Complexity Eval Charge Codes 32765 - High Complexity PHYSICIAN CERTIFICATION: I certify the specified therapy services for Sari Solorzano are required, authorized, and reviewed every 30 days.
--- NOTE | 2024-11-02 11:55 | EXP.DC.SUM ---
General Admission date:: 11/01/24 Discharge date: 11/02/24 HPI HPI HPI: The patient is a 79-year-old female with a history of COPD, non-Hodgkin?s lymphoma, hypertension, bipolar disorder, CKD stage 3, anxiety, chronic sacral wound, and venous stasis ulcers, who presented to the emergency department from her nursing facility for evaluation of altered mental status. Per facility staff, she appeared more tired and altered than usual, noted 30 minutes after receiving Percocet (oxycodone/acetaminophen, dose unspecified) for pain. On my exam, she was alert and oriented to person and time but not place or purpose, reporting urine issues without elaboration, and denying pain, fever, chills, or other symptoms. Vitals were stable on telemetry (HR 80s, BP 130/70s , SpO2 94% on room air), with benign cardiopulmonary and abdominal exams. Labs showed Cr 2.40 (eGFR 20, up from 0.9 on 10/04/2024), BUN 54, Hgb 11.1 (stable anemia), BNP 1200 (no prior), troponin <0.01, and UA with 2+ protein, blood, leukocytes, and bacteria (UTI likely). VBG (15:36) revealed pH 7.34, pCO2 39.6, pO2 105.1, HCO3 20.7, base excess -5.1 (mild metabolic acidosis). CT head was negative for ICH or lesion. Chest X-ray showed chronic bilateral upper lobe changes, no acute infiltrate, effusion, or pneumothorax, with a left-sided chest port and normal heart size. CT abdomen/pelvis (no contrast) showed no hydronephrosis, with bladder wall thickening (informal read). Negative COVID/flu PCRs. Differential includes UTI with REBECCA (likely), opioid effect from Percocet (post-dose AMS), encephalopathy (metabolic/lymphoma), or bipolar decompensation (less likely). Chart review notes a 10/02/2024 admission for UTI ([facility]), suggesting recurrence risk. ED workup ruled out acute cardiac/neuro causes, but altered status, REBECCA, and UTI prompted admission. After discussion with Emergency medicine, she was admitted in stable condition for further management. Hospital Course Hospital Course Hospital Course: This 79-year-old female presents with an acute change in mental status, likely due to an infectious process, most consistently pointing to a urinary tract infection given her abnormal urinalysis and low-grade fever. She also has acute kidney injury of unclear chronicity, which may be worsened by dehydration or infection. Imaging ruled out intracranial pathology. She was started on IV antibiotics and requires continued inpatient monitoring, repeat renal function tests, and supportive care. Her stage II pressure ulcer and venous stasis ulcer is stable. Urine culture growing gram-negative rods. Given previous sensitivity, will transition to cefdinir to complete 7 days total of therapy. Mentation back to baseline. Problems addressed as follows: Acute Encephalopathy, resolved Urinary tract infection -White count normalized during admission, 5.8 on day of discharge. Hemoglobin stable at 11.5. Urine initially grossly abnormal, was initiated on ceftriaxone. Urinalysis grossly abnormal with positive nitrate, leuk esterase, bacteria. Urine culture growing gram-negative rods. Based on previous sensitivities will transition to cefdinir to complete 7 days total of therapy. Will continue to follow culture after discharge. Mentation improved. Concern that there is a component of polypharmacy as well causing change in mentation given her chronic pain. Recommend considering decreasing her Klonopin to as needed only and decreasing her oxycodone as well as these likely have a component on her mentation. Acute Kidney Injury: creatinine 2.4 on presentation, improved to 1.2 by morning of discharge. Responded well to IV fluids. Tolerating p.o. intake. Would benefit from repeat CBC, CMP, magnesium in 1 week. Stage II Pressure Ulcer (Buttock) Chronic venous stasis ulcer right lower extremity -Stable, no drainage or purulent. Recommend daily dressing changes. Depression: Continue medications with Lyrica 100 mg 3 today, melatonin 5 Maribeth nightly divalproex 250 mg daily, and Klonopin 0.5 mg twice daily as needed. Monitor for oversedation given polypharmacy. COPD: Stable. Chest x-ray with no acute findings. Continue DuoNebs as needed every 4 hours. Stable on room air Hypertension: Blood pressure well-controlled at this time. Continue metoprolol tartrate 12.5mg twice a day Chronic pain: Oxycodone 7-1/2 mg 3 times a day per home regimen, resume as needed for severe pain given her chronic wounds. Total time spent on discharge 32 minutes in counseling, documentation, chart review, and direct care with patient. Exam Data for Last 24 hours Vital signs and Labs for Last 24 Hours: Temp Pulse Resp BP Pulse Ox O2 Del Method O2 Flow Rate 97.9 F 73 17 112/55 L 95 Room Air 3 11/02/24 08:00 11/02/24 08:00 11/02/24 08:00 11/02/24 08:00 11/02/24 08:00 11/02/24 11:00 11/02/24 03:00 Laboratory Results - last 24 hr 11/01/24 15:22: WBC 7.8, RBC 3.41 L, Hgb 11.1 L, Hct 34.5 L, MCV 101.2 H, MCH 32.6 H, MCHC 32.2, RDW 13.5, Plt Count 344, MPV 9.6, Neut % (Auto) 34.9 L, Lymph % (Auto) 46.9, Martin % (Auto) 14.7 H, Eos % (Auto) 2.7, Baso % (Auto) 0.5, Neut # (Auto) 2.7, Lymph # (Auto) 3.7, Martin # (Auto) 1.2 H, Eos # (Auto) 0.2, Baso # (Auto) 0.0, Sodium 140, Potassium 4.7, Chloride 107, Carbon Dioxide 24, Anion Gap 13.7, BUN 54 H, Creatinine 2.40 H, Estimated Creat Clear 30, Estimated GFR 20 L, Est GFR ( Amer) 24 L, Glucose 101 H, Lactate 0.6 L, Calcium 9.0, Total Bilirubin 0.7, AST 29, ALT 12, Alkaline Phosphatase 102, Troponin I < 0.01, NT-Pro-B Natriuret Pep 1200 H, Total Protein 5.6 L, Albumin 3.8, Globulin 1.8, Albumin/Globulin Ratio 2.1 H, Urine Color Yellow, Urine Appearance Cloudy, Urine pH 5.5, Ur Specific [place] 1.025, Urine Protein 2+ A, Urine Glucose (UA) Negative, Urine Ketones 1+, Urine Blood 2+ A, Urine Nitrate Negative, Urine Bilirubin Negative, Urine Urobilinogen 1.0, Ur Leukocyte Esterase 2+ A, Urine RBC 5-10, Urine WBC Tntc, Ur Squamous Epith Cells 3-5, Urine Bacteria 4+, HCV Ab NARAYAN w/Rflx PCR Qn Negative, HIV Ag/Ab Combo Qual Negative 11/01/24 15:36: VBG pH 7.34, VBG pCO2 39.6, VBG pO2 105.1 H, VBG HCO3 20.7 L, VBG Total CO2 21.9 L, VBG O2 Saturation 97.8 H, VBG Base Excess -5.1 L, VBG Lactic Acid 1.0 11/01/24 15:55: SARS-CoV-2 (PCR) Not detected, Influenza A Untype (PCR) Not detected, Influenza Type B (PCR) Not detected 11/01/24 18:35: Troponin I < 0.01 11/01/24 22:05: Troponin I < 0.01 11/02/24 09:15: WBC 5.8 D, RBC 3.51 L, Hgb 11.5 L, Hct 35.6 L, MCV 101.4 H, MCH 32.8 H, MCHC 32.3, RDW 13.2, Plt Count 291, MPV 9.4, Neut % (Auto) 42.5, Lymph % (Auto) 37.7, Martin % (Auto) 13.4 H, Eos % (Auto) 5.2, Baso % (Auto) 0.3, Neut # (Auto) 2.4, Lymph # (Auto) 2.2, Martin # (Auto) 0.8, Eos # (Auto) 0.3, Baso # (Auto) 0.0, Sodium 140, Potassium 4.3, Chloride 106, Carbon Dioxide 26, Anion Gap 12.3, BUN 42 H, Creatinine 1.30 H D, Estimated Creat Clear 57, Estimated GFR 40 L, Est GFR ( Amer) 48 L D, Glucose 90, Calcium 9.3, Magnesium 1.7, Total Bilirubin 0.6, AST 23, ALT 12, Alkaline Phosphatase 94, Total Protein 5.0 L, Albumin 3.5, Globulin 1.5, Albumin/Globulin Ratio 2.3 H I & O for Last 24 hours: Intake & Output 10/30/24 10/31/24 11/01/24 11/02/24 23:59 23:59 23:59 23:59 Intake Total 470 / 470 Output Total 750 / 750 Balance -280 / -280 Weight 98.004 kg 100.062 kg Microbiology Reports for the Last 24 Hours: Microbiology 11/01/24 15:22 Urine,Clean Catch Urine Culture - Preliminary Gram Negative Rods Constitutional Constitutional: no acute distress, obese, chronically ill appearing and cooperative *Routine HEENT Exam Head: Present normocephalic Eye: Present EOMI and PERRL ENT: Present mucous membranes moist *Routine Neck Exam Neck: Present supple; Absent lymphadenopathy *Routine Respiratory Exam Respiratory: Present CTA bilaterally; Absent respiratory distress, rhonchi, wheezes or crackles *Routine Cardiovascular Exam Cardiovascular: Present RRR *Routine Abdominal Exam Abdominal: Present soft and normoactive bowel sounds; Absent tenderness *Routine Rectal Exam Patient deferred: visual exam *Routine Exam Patient deferred: external exam *Routine Extremities Exam Extremities: Absent cyanosis, clubbing or edema Comments: Edema bilateral lower extremities. Stasis ulcer on right leg Routine Back/Spine/Pelvis Exam Comments: Coccygeal decubitus wound *Routine Skin Exam Skin: Present intact and warm; Absent cyanosis, erythema or rash *Routine Neurological Exam Neurological: Present alert and moving all extremities; Absent altered mental status Comments: Baseline mentation Routine Psychiatric Exam Psychiatric: Present normal affect Results Data Completed and Pending Labs on day of discharge: Labs from last 24 hours 11/02/24 11/01/24 11/01/24 09:15 22:05 18:35 WBC 5.8 D RBC 3.51 L Hgb 11.5 L Hct 35.6 L MCV 101.4 H MCH 32.8 H MCHC 32.3 RDW 13.2 Plt Count 291 MPV 9.4 Neut % (Auto) 42.5 Lymph % (Auto) 37.7 Martin % (Auto) 13.4 H Eos % (Auto) 5.2 Baso % (Auto) 0.3 Neut # (Auto) 2.4 Lymph # (Auto) 2.2 Martin # (Auto) 0.8 Eos # (Auto) 0.3 Baso # (Auto) 0.0 VBG pH VBG pCO2 VBG pO2 VBG HCO3 VBG Total CO2 VBG O2 Saturation VBG Base Excess VBG Lactic Acid Sodium 140 Potassium 4.3 Chloride 106 Carbon Dioxide 26 Anion Gap 12.3 BUN 42 H Creatinine 1.30 H D Estimated Creat Clear 57 Estimated GFR 40 L Est GFR ( Amer) 48 L D Glucose 90 Lactate Calcium 9.3 Magnesium 1.7 Total Bilirubin 0.6 AST 23 ALT 12 Alkaline Phosphatase 94 Troponin I < 0.01 < 0.01 NT-Pro-B Natriuret Pep Total Protein 5.0 L Albumin 3.5 Globulin 1.5 Albumin/Globulin Ratio 2.3 H Urine Color Urine Appearance Urine pH Ur Specific [place] Urine Protein Urine Glucose (UA) Urine Ketones Urine Blood Urine Nitrate Urine Bilirubin Urine Urobilinogen Ur Leukocyte Esterase Urine RBC Urine WBC Ur Squamous Epith Cells Urine Bacteria SARS-CoV-2 (PCR) HCV Ab NARAYAN w/Rflx PCR Qn HIV Ag/Ab Combo Qual Influenza A Untype (PCR) Influenza Type B (PCR) 11/01/24 11/01/24 11/01/24 15:55 15:36 15:22 WBC 7.8 RBC 3.41 L Hgb 11.1 L Hct 34.5 L MCV 101.2 H MCH 32.6 H MCHC 32.2 RDW 13.5 Plt Count 344 MPV 9.6 Neut % (Auto) 34.9 L Lymph % (Auto) 46.9 Martin % (Auto) 14.7 H Eos % (Auto) 2.7 Baso % (Auto) 0.5 Neut # (Auto) 2.7 Lymph # (Auto) 3.7 Martin # (Auto) 1.2 H Eos # (Auto) 0.2 Baso # (Auto) 0.0 VBG pH 7.34 VBG pCO2 39.6 VBG pO2 105.1 H VBG HCO3 20.7 L VBG Total CO2 21.9 L VBG O2 Saturation 97.8 H VBG Base Excess -5.1 L VBG Lactic Acid 1.0 Sodium 140 Potassium 4.7 Chloride 107 Carbon Dioxide 24 Anion Gap 13.7 BUN 54 H Creatinine 2.40 H Estimated Creat Clear 30 Estimated GFR 20 L Est GFR ( Amer) 24 L Glucose 101 H Lactate 0.6 L Calcium 9.0 Magnesium Total Bilirubin 0.7 AST 29 ALT 12 Alkaline Phosphatase 102 Troponin I < 0.01 NT-Pro-B Natriuret Pep 1200 H Total Protein 5.6 L Albumin 3.8 Globulin 1.8 Albumin/Globulin Ratio 2.1 H Urine Color Yellow Urine Appearance Cloudy Urine pH 5.5 Ur Specific [place] 1.025 Urine Protein 2+ A Urine Glucose (UA) Negative Urine Ketones 1+ Urine Blood 2+ A Urine Nitrate Negative Urine Bilirubin Negative Urine Urobilinogen 1.0 Ur Leukocyte Esterase 2+ A Urine RBC 5-10 Urine WBC Tntc Ur Squamous Epith Cells 3-5 Urine Bacteria 4+ SARS-CoV-2 (PCR) Not detected HCV Ab NARAYAN w/Rflx PCR Qn Negative HIV Ag/Ab Combo Qual Negative Influenza A Untype (PCR) Not detected Influenza Type B (PCR) Not detected Preliminary micro results at discharge 11/01/24 15:22 Urine Culture - Preliminary Urine,Clean Catch Gram Negative Rods DS: Diagnosis Discharge Diagnosis (1) Recurrent UTI: Status: Acute Code(s): N39.0 - Urinary tract infection, site not specified (2) AMS (altered mental status): Status: Acute Code(s): R41.82 - Altered mental status, unspecified (3) REBECCA (acute kidney injury): Status: Acute Code(s): N17.9 - Acute kidney failure, unspecified (4) Stage II pressure ulcer of buttock: Status: Acute Code(s): L89.302 - Pressure ulcer of unspecified buttock, stage 2 (5) Peripheral neuropathy: Status: Acute Code(s): G62.9 - Polyneuropathy, unspecified (6) COPD (chronic obstructive pulmonary disease): Status: Acute Code(s): J44.9 - Chronic obstructive pulmonary disease, unspecified (7) Chronic pain: Status: Acute Code(s): G89.29 - Other chronic pain (8) Age-related physical debility: Status: Acute Code(s): R54 - Age-related physical debility (9) Bipolar 1 disorder: Status: Acute Code(s): F31.9 - Bipolar disorder, unspecified (10) Non-Hodgkin lymphoma: Status: Inactive Code(s): C85.90 - Non-Hodgkin lymphoma, unspecified, unspecified site Meds Home Medications and Allergies Home Medications ?Medication ?Instructions ?Recorded ?Confirmed ?Type divalproex 250 mg tablet,delayed 250 mg PO DAILY 06/23/24 11/01/24 History release fluticasone propionate 50 1 spray intranasal DAILY #16 grams 06/23/24 11/01/24 Rx mcg/actuation nasal spray,suspension loratadine 10 mg tablet 10 mg PO DAILY #90 tabs 06/23/24 11/01/24 Rx metoprolol tartrate 25 mg tablet 12.5 mg (1/2 x 25 mg) PO BID #30 06/23/24 11/01/24 Rx tabs omeprazole 20 mg capsule,delayed 20 mg PO DAILY #90 caps 06/23/24 11/01/24 Rx release potassium chloride 10 mEq 10 meq PO DAILY #30 tabs 06/23/24 11/01/24 Rx tablet,extended release ascorbic acid (vitamin C) 500 mg 500 mg PO BID 06/29/24 11/01/24 History capsule clonazepam 0.5 mg tablet 0.5 mg PO BID #60 tabs 09/05/24 11/01/24 Rx loperamide 2 mg capsule 2 mg PO Q3HP PRN Diarrhea 10/02/24 11/01/24 History ondansetron 4 mg disintegrating 4 mg PO Q6HP PRN Nausea And 10/02/24 11/01/24 History tablet Vomiting acetaminophen 325 mg tablet 325 mg PO QIDP PRN pain and fever 10/03/24 11/02/24 History (Tylenol) furosemide 40 mg tablet 40 mg PO DAILY 10/03/24 11/01/24 History melatonin 5 mg tablet 5 mg PO HS 10/03/24 11/01/24 History quetiapine 25 mg tablet 12.5 mg PO HS 10/03/24 11/01/24 History acetaminophen 500 mg tablet 500 mg PO TID 11/02/24 11/02/24 History cefdinir 300 mg capsule 300 mg PO BID 7 days #14 caps 11/02/24 Rx oxycodone-acetaminophen 5 mg-325 1 tab PO TID 11/02/24 11/02/24 History mg tablet pregabalin 100 mg capsule 100 mg PO BID 11/02/24 11/02/24 History sennosides 8.6 mg tablet (senna) 17.2 mg PO HS 11/02/24 11/02/24 History New Prescriptions to Start Prescriptions: Rui Andrea Allergies Allergy/AdvReac Type Severity Reaction Status Date / Time codeine Allergy Verified 10/10/24 14:06 naproxen (From Anaprox) Allergy Verified 10/10/24 14:06 latex AdvReac Mild Verified 10/10/24 14:06 Discharge Plan Disposition Patient Disposition: [facility] Care Fac Condition: Fair Discharge Order Discharge Orders: Discharge Order (Routine); Ordered 11/02/24 Ordered By: Rui Finley Follow up Plan Follow up with: Alvaro Mack MD [Primary Care Provider] - Enter time for follow up (At Shelter) Prescriptions/Medication Reconciliation: New cefdinir 300 mg capsule 300 mg PO BID 7 Days Qty: 14 0RF Continued ascorbic acid (vitamin C) 500 mg capsule 500 mg PO BID divalproex 250 mg tablet,delayed release (DR/EC) 250 mg PO DAILY Patient Comments: TAKE 1 TABLET BY MOUTH TWICE DAILY fluticasone propionate 50 mcg/actuation spray,suspension 1 spray intranasal DAILY Qty: 16 0RF potassium chloride 10 mEq tablet extended release 10 meq PO DAILY Qty: 30 0RF loratadine 10 mg tablet 10 mg PO DAILY Qty: 90 0RF metoprolol tartrate 25 mg tablet 12.5 mg PO BID Qty: 30 0RF omeprazole 20 mg capsule,delayed release(DR/EC) 20 mg PO DAILY Qty: 90 0RF clonazepam 0.5 mg tablet 0.5 mg PO BID Qty: 60 2RF loperamide 2 mg capsule 2 mg PO Q3HP PRN (Reason: Diarrhea) ondansetron 4 mg Tablet,Disintegrating 4 mg PO Q6HP PRN (Reason: Nausea And Vomiting) furosemide 40 mg tablet 40 mg PO DAILY acetaminophen [Tylenol] 325 mg Tablet 325 mg PO QIDP PRN (Reason: pain and fever) quetiapine 25 mg tablet 12.5 mg PO HS melatonin 5 mg tablet 5 mg PO HS sennosides [senna] 8.6 mg tablet 17.2 mg PO HS acetaminophen 500 mg Tablet 500 mg PO TID oxycodone-acetaminophen 5-325 mg tablet 1 tab PO TID pregabalin 100 mg capsule 100 mg PO BID Problem Reconciliation Problems Reviewed?: Yes Patient Discharge Instructions ACTIVITY: Continue current activity DIET: continue same diet Patient Instructions: Urinary Tract Infection, Acute Kidney Injury Print Language: Welsh Providers Primary Care Provider: Alvaro Mack Admit Provider: Rui Finley Attending Provider: Rui Finley
--- NOTE | 2024-11-02 12:45 | PC.NURSE ---
gave report to pio at [facility]
== END 2024-11-02 14:29 ==
LOC: ER 18:09 → 2ND 18:12
PROVIDERS: Admitting Provider Internal Medicine Adolescent Medicine; Emergency Provider Emergency Medicine; PCP Family Medicine; Visit Provider Internal Medicine Adolescent Medicine
DX: N39.0 Urinary tract infection, site not specified (principal); R41.82 Altered mental status, unspecified; N17.9 Acute kidney failure, unspecified; L89.302 Pressure ulcer of unspecified buttock, stage 2; J44.9 Chronic obstructive pulmonary disease, unspecified; G89.29 Other chronic pain; R54 Age-related physical debility; F31.9 Bipolar disorder, unspecified; C85.90 Non-Hodgkin lymphoma, unspecified, unspecified site; I12.9 Hypertensive chronic kidney disease with stage 1 through stage 4 chronic kidney disease, or unspecified chronic kidney disease; I87.311 Chronic venous hypertension (idiopathic) with ulcer of right lower extremity; N18.30 Chronic kidney disease, stage 3 unspecified; B96.89 Other specified bacterial agents as the cause of diseases classified elsewhere; G93.49 Other encephalopathy; D63.0 Anemia in neoplastic disease; Z79.899 Other long term (current) drug therapy; Z79.891 Long term (current) use of opiate analgesic; Z88.6 Allergy status to analgesic agent; Z88.5 Allergy status to narcotic agent; Z91.040 Latex allergy status; Z74.1 Need for assistance with personal care; G62.9 Polyneuropathy, unspecified
CPT/HCPCS: 36415; 70450; 71045; 74176; 80053; 81001; 82803; 83605; 83735; 83880; 84484; 85025; 86803; 87040; 87077; 87086; 87088; 87186; 87389; 87636; 93005; 97163; 99285; G0378; J0696; J1644; J7120

== ENCOUNTER 2024-11-06 09:50 | Outpatient (CLI) | payer MEDICARE, BC, SELFPAY | END 2024-11-06 23:59 | disposition home or self-care (01) | LOC: LAB.DROPOF 09:52 | PROVIDERS: PCP Family Medicine; Visit Provider Family Medicine | DX: Z51.81 Encounter for therapeutic drug level monitoring (principal) | CPT/HCPCS: 80150; 83516 ==

== ENCOUNTER 2024-11-06 13:03 | Outpatient (CLI) | payer MEDICARE, BC, SELFPAY | END 2024-11-06 23:59 | disposition home or self-care (01) | LOC: LAB.DROPOF 13:04 | PROVIDERS: PCP Family Medicine; Visit Provider Family Medicine | DX: Z51.81 Encounter for therapeutic drug level monitoring (principal); Z79.899 Other long term (current) drug therapy ==

== ENCOUNTER 2024-11-08 09:33 | Outpatient (POV) | payer MEDICARE, BC, SELFPAY ==
--- NOTE | 2024-11-08 09:54 | A.OFFVIS_ITS ---
[facility] Disclaimer: The information contained in this section may have been updated after the patient was seen, as this information can be updated by other users. Medical History Altered mental status Decreased sensation of lower extremity Decreased pedal pulses Dysuria Acute UTI Chronic kidney disease, stage 3 unspecified COPD (chronic obstructive pulmonary disease) History of fall Edema of both lower extremities Age-related physical debility Anxiety Bipolar 1 disorder Body mass index [BMI] 34.0-34.9, adult Chronic venous hypertension (idiopathic) with ulcer of right lower extremity Depression Hypertensive chronic kidney disease Non-Hodgkin lymphoma Macrocytic anemia H/O lymphoma HTN (hypertension), benign Surgical History H/O cataract extraction History of vaginal delivery H/O bilateral breast reduction surgery Family History Other Unknown family medical history Social History Smoking Status: Unknown if ever smoked alcohol intake: never substance use type: denies use current occupational status: other Travel in the last 8 weeks: None marital status: number of children: 2 PM Subjective & Objective Subjective Subjective:: Patient is a pleasant 79-year-old female who presents today for follow-up. Today she rates her pain a 7 out of 10. Patient denies any new falls or injuries. She does state that she is still having the constant pain related to her peripheral neuropathy. She states the burning and tingling is constant and does feel like it is going back towards her baseline. Patient did previously have a left posterior tibial nerve block back in August that did provide 80% and has worked up until about the last week. Patient does have a wound on her right lower leg that has not allowed us to do an injection on this side. She does state today that she is still dealing with the same wound area but did also have a new spot that popped up along the right side and that they are thinking that it is going to cause issues as well. Patient is still seeing wound management however she states that they did not wrap it when she saw them yesterday. Patient does also make mention from her last visit she did have to go to the hospital for UTI and is still having some issues related to this. Patient is interested in repeating prior injections as it did really help along the left side and that the pain is now interfering with her ability perform activities of daily living such as cooking and cleaning. Patient is on Percocet, pregabalin and Tylenol at the facility. Her Dev has been reviewed. Review of Systems: General: No recent weight changes, no fever, no sleep disturbances Respiratory: No cough, no shortness of air, no recurring pulmonary infections Cardiovascular/peripheral vascular: No chest pain, no palpitations, no edema, no shortness of breath Gastrointestinal: No new onset incontinence, normal bowel movements reported Genitourinary: No new onset incontinence Musculoskeletal: Bilateral feet numbness tingling burning Psychiatric: [Normal mood/affect] Neurological: [Denies weakness in extremities], [denies balance issues] Pain at rest (0-10 scale): 7 Objective Objective:: Physical Exam: General: Alert and oriented x3, no acute distress, pleasant and cooperative Lungs: Respirations even and unlabored, symmetrical chest expansion Eyes: PERRL Musculoskeletal: Flexion and extension of left ankle somewhat guarded secondary to pain, [antalgic gait noted] Neurological: Speech clear, no gross sensory deficit Skin: Right lower calf does have a bandage on it with moderate swelling present in comparison to the left Has patient had previous pain injection?: No Conservative treatment options previously tried: Home exercise plan Length of treatment: Longer than 12 weeks Meds Home Medications and Allergies Home Medications ?Medication ?Instructions ?Recorded ?Confirmed ?Type divalproex 250 mg tablet,delayed 250 mg PO DAILY 06/23/24 11/01/24 History release fluticasone propionate 50 1 spray intranasal DAILY #16 grams 06/23/24 11/01/24 Rx mcg/actuation nasal spray,suspension loratadine 10 mg tablet 10 mg PO DAILY #90 tabs 06/23/24 11/01/24 Rx metoprolol tartrate 25 mg tablet 12.5 mg (1/2 x 25 mg) PO BID #30 06/23/24 11/01/24 Rx tabs omeprazole 20 mg capsule,delayed 20 mg PO DAILY #90 caps 06/23/24 11/01/24 Rx release potassium chloride 10 mEq 10 meq PO DAILY #30 tabs 06/23/24 11/01/24 Rx tablet,extended release ascorbic acid (vitamin C) 500 mg 500 mg PO BID 06/29/24 11/01/24 History capsule clonazepam 0.5 mg tablet 0.5 mg PO BID #60 tabs 09/05/24 11/01/24 Rx loperamide 2 mg capsule 2 mg PO Q3HP PRN Diarrhea 10/02/24 11/01/24 History ondansetron 4 mg disintegrating 4 mg PO Q6HP PRN Nausea And 10/02/24 11/01/24 History tablet Vomiting acetaminophen 325 mg tablet 325 mg PO QIDP PRN pain and fever 10/03/24 11/02/24 History (Tylenol) furosemide 40 mg tablet 40 mg PO DAILY 10/03/24 11/01/24 History melatonin 5 mg tablet 5 mg PO HS 10/03/24 11/01/24 History quetiapine 25 mg tablet 12.5 mg PO HS 10/03/24 11/01/24 History acetaminophen 500 mg tablet 500 mg PO TID 11/02/24 11/02/24 History cefdinir 300 mg capsule 300 mg PO BID 7 days #14 caps 11/02/24 Rx pregabalin 100 mg capsule 100 mg PO BID 11/02/24 11/02/24 History sennosides 8.6 mg tablet (senna) 17.2 mg PO HS 11/02/24 11/02/24 History oxycodone-acetaminophen 5 mg-325 1 tab PO TID #90 tabs 11/03/24 Rx mg tablet New Prescriptions to Start Prescriptions: Allergies Allergy/AdvReac Type Severity Reaction Status Date / Time codeine Allergy Verified 10/10/24 14:06 naproxen (From Anaprox) Allergy Verified 10/10/24 14:06 latex AdvReac Mild Verified 10/10/24 14:06 Assessment and Plan *Assessment and plan (1) Peripheral neuropathy: Status: Acute Category: Medical Code(s): G62.9 - Polyneuropathy, unspecified (2) Chronic pain: Status: Acute Category: Medical Code(s): G89.29 - Other chronic pain Plan I did discuss with the patient due to her worsening pain that we can always repeat the prior left tibial nerve block. I would not recommend doing anything on the right as of right now due to the still of the nonhealing wound. Patient was reviewed over risk and benefits and she would like to proceed forward with this plan of care. Patient had her last nerve block in August that did provide 80% improvement and lasted longer than a month and a half. Patient has had longstanding peripheral neuropathy for years. Patient will be scheduled for repeat left posterior tibial nerve block. This will be done without fluoroscopic or ultrasound guidance. Patient has been instructed to contact the clinic with any concerns before the next appointment. Dr. Fung has reviewed this note and agrees with this plan of care. This note was dictated using voice recognition software and make contain errors or omissions. All injections are used with Lidocaine, Bupivacaine and Depo Medrol. Occasionally urine drug screen is needed to verify patient's compliance with our office pain contract. This is ordered based off specific treatments related to chronic pain with the potential to abuse certain medications.
[2024-11-08 10:36] VITALS: BP 116/75; PULSE 74; RESP 18; O2SAT 97; BMI 32.6
== END 2024-11-08 23:59 | disposition home or self-care (01) ==
LOC: SC.PAIN 09:36
PROVIDERS: PCP Family Medicine; Visit Provider Nurse Practitioner Family
DX: G62.9 Polyneuropathy, unspecified (principal); G89.29 Other chronic pain; Z73.89 Other problems related to life management difficulty
CPT/HCPCS: 99212; G0463

== ENCOUNTER 2024-12-05 10:24 | Day surgery (SDC) | payer MEDICARE, BC, SELFPAY ==
[2024-12-05 10:36] VITALS: BP 113/73; PULSE 77; RESP 17; O2SAT 100; BMI 34.0
[2024-12-05 10:51] VITALS: BP 111/73; PULSE 78; RESP 17; TEMP 36.8; O2SAT 100
[2024-12-05] MEDS: methylPREDNISolone ACETATE 80MG/ML VIAL 80 MG (10:56)
[2024-12-05] MEDS: BUPIVACAINE 0.25% 10ML INJ 25 MG IJ (10:56)
[2024-12-05 10:57] VITALS: BP 115/64; PULSE 77; RESP 18; O2SAT 97
[2024-12-05] MEDS: LIDOCAINE 1% 5ML PF VIAL 5 ML (10:57)
[2024-12-05 10:58] VITALS: BP 115/64; PULSE 77; RESP 18; O2SAT 97
--- NOTE | 2024-12-05 12:37 | P.PCN_ITS ---
Procedure Date: 12/05/24 Time: 10:30 Anesthesiologist:: Jasson Patton CRNA Complications:: None Pre-procedure Diagnosis:: Left foot peripheral neuropathy. Post-procedure Diagnosis:: Same Indications for Procedure:: Patient very pleasant 79-year-old female comes to clinic today for a left po sterior tibial nerve block. Patient describes left foot pain as constant, dull, aching. She refers to the majority of pain is in her toes. She rates her pain 7/10. Patient reports to responding very well to posterior tibial nerve block in the past. Procedure Details:: ClinicDetails of the procedure explained to the patient. The patient taken [facility] room placed in the sitting position. The area over the left posterior tibial nerve was using chlorhexidine as a cleansing solution. Using a 25-gauge inch and half needle the left tibial nerve was accessed and 20 mg of Depo-Medrol and 4 mL of 1% lidocaine was injected after negative aspiration. Patient tolerated procedure without difficulty. There are no complications. Plan and Disposition:: Patient was discharged without incident.
== END 2024-12-05 10:51 | disposition home or self-care (01) ==
LOC: SC.PAINP 10:27
PROVIDERS: PCP Family Medicine; Visit Provider Nurse Anesthetist, Certified Registered
DX: G62.89 Other specified polyneuropathies (principal)
CPT/HCPCS: 64450; J1010

== ENCOUNTER 2024-12-19 14:14 | Outpatient (POV) | payer MEDICARE, BC, SELFPAY ==
[2024-12-19 14:36] VITALS: BP 136/74; PULSE 75; RESP 14; O2SAT 98; BMI 34.3
--- NOTE | 2024-12-19 14:38 | EXP.PAIN.SOA ---
[facility] Disclaimer: The information contained in this section may have been updated after the patient was seen, as this information can be updated by other users. Medical History Altered mental status Decreased sensation of lower extremity Decreased pedal pulses Dysuria Acute UTI Chronic kidney disease, stage 3 unspecified COPD (chronic obstructive pulmonary disease) History of fall Edema of both lower extremities Age-related physical debility Anxiety Bipolar 1 disorder Body mass index [BMI] 34.0-34.9, adult Chronic venous hypertension (idiopathic) with ulcer of right lower extremity Depression Hypertensive chronic kidney disease Non-Hodgkin lymphoma Macrocytic anemia H/O lymphoma HTN (hypertension), benign Surgical History H/O cataract extraction History of vaginal delivery x 2 H/O bilateral breast reduction surgery Family History Other Unknown family medical history Social History Smoking Status: Unknown if ever smoked alcohol intake: never substance use type: denies use current occupational status: other Travel in the last 8 weeks: None marital status: number of children: 2 PM Subjective & Objective Subjective Subjective:: Patient is a pleasant 79-year-old female who presents today for follow-up of her left posterior tibial nerve block on 12/05/2024. Today she writes improvement of at least 90% and states the pain on the left side is a 0 out of 10. Patient does present today with still a bandage on the right lower leg related to some ulcers that she is seeing wound management for. She does state that she has an appointment later today at this office. Patient denies any new changes. Patient is currently on Percocet, pregabalin and Tylenol at her nursing facility. She denies any side effects. Her Dev has been reviewed and is appropriate. Review of Systems: General: No recent weight changes, no fever, no sleep disturbances Respiratory: No cough, no shortness of air, no recurring pulmonary infections Cardiovascular/peripheral vascular: No chest pain, no palpitations, no edema, no shortness of breath Gastrointestinal: No new onset incontinence, normal bowel movements reported Genitourinary: No new onset incontinence Musculoskeletal: Left ankle/foot pain Psychiatric: [Normal mood/affect] Neurological: [Denies weakness in extremities], [denies balance issues] Pain at rest (0-10 scale): 0 Objective Objective:: Physical Exam: General: Alert and oriented x3, no acute distress, pleasant and cooperative Lungs: Respirations even and unlabored, symmetrical chest expansion Eyes: PERRL Musculoskeletal: Flexion and extension of left ankle within normal limits Neurological: Speech clear, no gross sensory deficit Has patient had previous pain injection?: Yes Percent improvement in pain since last injection: 90% Conservative treatment options previously tried: Home exercise plan Length of treatment: Longer than 12 weeks Meds Home Medications and Allergies Home Medications ?Medication ?Instructions ?Recorded ?Confirmed ?Type divalproex 250 mg tablet,delayed 250 mg PO DAILY 06/23/24 12/19/24 History release fluticasone propionate 50 1 spray intranasal DAILY #16 grams 06/23/24 12/19/24 Rx mcg/actuation nasal spray,suspension loratadine 10 mg tablet 10 mg PO DAILY #90 tabs 06/23/24 12/19/24 Rx metoprolol tartrate 25 mg tablet 12.5 mg (1/2 x 25 mg) PO BID #30 06/23/24 12/19/24 Rx tabs omeprazole 20 mg capsule,delayed 20 mg PO DAILY #90 caps 06/23/24 12/19/24 Rx release potassium chloride 10 mEq 10 meq PO DAILY #30 tabs 06/23/24 12/19/24 Rx tablet,extended release ascorbic acid (vitamin C) 500 mg 500 mg PO BID 06/29/24 12/19/24 History capsule loperamide 2 mg capsule 2 mg PO Q3HP PRN Diarrhea 10/02/24 12/19/24 History ondansetron 4 mg disintegrating 4 mg PO Q6HP PRN Nausea And 10/02/24 12/19/24 History tablet Vomiting furosemide 40 mg tablet 40 mg PO DAILY 10/03/24 12/19/24 History melatonin 5 mg tablet 5 mg PO HS 10/03/24 12/19/24 History quetiapine 25 mg tablet 12.5 mg PO HS 10/03/24 12/19/24 History acetaminophen 500 mg tablet 500 mg PO TID 11/02/24 12/19/24 History sennosides 8.6 mg tablet (senna) 17.2 mg PO HS 11/02/24 12/19/24 History pregabalin 100 mg capsule 100 mg PO BID #60 caps 11/16/24 12/19/24 Rx oxycodone-acetaminophen 5 mg-325 1 tab PO TID #90 tabs 12/04/24 12/19/24 Rx mg tablet clonazepam 0.5 mg tablet 0.5 mg PO BID #60 tabs 12/05/24 12/19/24 Rx New Prescriptions to Start Prescriptions: Allergies Allergy/AdvReac Type Severity Reaction Status Date / Time codeine Allergy Verified 11/15/24 11:34 naproxen (From Anaprox) Allergy Verified 11/15/24 11:34 latex AdvReac Mild Verified 11/15/24 11:34 Assessment and Plan *Assessment and plan (1) Peripheral neuropathy: Status: Acute Category: Medical Code(s): G62.9 - Polyneuropathy, unspecified Plan Patient has again had significant relief following her left posterior tibial nerve block and does not require any additional interventions at this time. Patient does also have significant peripheral neuropathy on the right ankle/foot however due to her ongoing ulcers I have counseled her that we would have to wait until these were healed before we could do additional interventions on that side. Patient acknowledges understanding agrees with this plan of care. Patient will return to clinic in 6 weeks for reevaluation of symptoms and plan of care. Patient has been instructed to contact the clinic with any concerns before the next appointment. Dr. Fung has reviewed this note and agrees with this plan of care. This note was dictated using voice recognition software and make contain errors or omissions. All injections are used with Lidocaine, Bupivacaine and dexamethasone. Occasionally urine drug screen is needed to verify patient's compliance with our office pain contract. This is ordered based off specific treatments related to chronic pain with the potential to abuse certain medications.
== END 2024-12-19 23:59 | disposition home or self-care (01) ==
LOC: SC.PAIN 14:17
PROVIDERS: PCP Family Medicine; Visit Provider Nurse Practitioner Family
DX: G62.9 Polyneuropathy, unspecified (principal)
CPT/HCPCS: 99212; G0463

== ENCOUNTER 2024-12-21 10:33 | Outpatient (CLI) | payer MEDICARE, BC, SELFPAY ==
[2024-12-21 10:39] LABS: Microscopic, Urine URINE MICROSCOPIC (MICROSCOPIC)
[2024-12-21 10:45] LABS: Appearance,Urine CLOUDY (Clear); Bilirubin,Urine Negative (Negative); Blood, Urine 1+ (Negative); Color,Urine YELLOW (Yellow); Glucose,Urine (UA) Negative (Negative); Ketones,Urine Negative (Negative); Leukocyte Esterase,Urine 3+ (Negative); Nitrate,Urine POSITIVE (Negative); Protein,Urine TRACE (Negative); Specific Gravity, Urine 1.015 (1.005-1.030)
[2024-12-21 10:53] LABS: WBC,Urine TNTC #/hpf (0-3)
[2024-12-21 10:54] LABS: Bacteria,Urine 1+ /lpf; Squamous Epithelial Cell,Urine Occasional #/hpf (0-5)
== END 2024-12-21 23:59 | disposition home or self-care (01) ==
LOC: LAB.DROPOF 10:33
PROVIDERS: PCP Family Medicine; Visit Provider Family Medicine
DX: R30.0 Dysuria (principal); B96.20 Unspecified Escherichia coli [E. coli] as the cause of diseases classified elsewhere
CPT/HCPCS: 81001; 87086; 87088; 87186

== ENCOUNTER 2025-01-04 11:51 | Outpatient (CLI) | payer MEDICARE, BC, SELFPAY ==
[2025-01-04 12:00] LABS: Microscopic, Urine URINE MICROSCOPIC (MICROSCOPIC)
[2025-01-04 12:08] LABS: Appearance,Urine CLOUDY (Clear); Bilirubin,Urine Negative (Negative); Blood, Urine 1+ (Negative); Color,Urine YELLOW (Yellow); Glucose,Urine (UA) Negative (Negative); Ketones,Urine Negative (Negative); Leukocyte Esterase,Urine 3+ (Negative); Nitrate,Urine Negative (Negative); PH,Urine 8.5 (5.0-8.5); Protein,Urine 1+ (Negative)
[2025-01-04 12:09] LABS: Bacteria,Urine 4+ /lpf
== END 2025-01-04 23:59 | disposition home or self-care (01) ==
LOC: LAB.DROPOF 11:52
PROVIDERS: PCP Family Medicine; Visit Provider Family Medicine
DX: N39.0 Urinary tract infection, site not specified (principal); R30.0 Dysuria
CPT/HCPCS: 81001; 87086; 87088; 87186

== ENCOUNTER 2025-01-17 07:22 | Outpatient (CLI) | payer MEDICARE, BC, SELFPAY ==
[2025-01-17 07:34] LABS: Basophils % 0.5 % (0.1-2.0); Eosinophils # 0.3 Kmm3 (0.0-0.4); Eosinophils % 4.9 % (0.1-12.0); Hematocrit 30.6 % (37.0-47.0); Hemoglobin 10.2 g/dL (12.2-16.2); Immature Granulocytes # 0.01 10^3uL; Immature Granulocytes % 0.2 %; Lymphocytes # 3.3 K/mm3 (0.7-4.5); Lymphocytes % 59.8 % (10-50); Mean Corpuscular HGB Conc 33.3 g/dL (31.8-35.4); Mean Corpuscular Hemoglobin 33.3 pg (27.0-31.2); Mean Platelet Volume 10.1 fl (7.4-10.4); Monocytes # 0.4 K/mm3 (0.1-1.0); Monocytes % 7.8 % (1.7-9.3); Neutrophils # 1.5 K/mm3 (1.8-7.8); Neutrophils % 26.8 % (37.0-80.0); Nucleated Red Blood Cells # 0 10^3/uL; Nucleated Red Blood Cells % 0 %; Platelet Count 229 K/mm3 (142-424); Red Blood Count 3.06 M/mm3 (4.20-5.40); Red Cell Distribution Width 12.5 % (11.5-17.5); Red Cell Distribution Width-SD 45.9 fL; White Blood Count 5.5 K/mm3 (4.8-10.8)
[2025-01-17 08:03] LABS: Alanine Aminotransferase 9 U/L (12-78); Albumin Level 2.8 g/dl (3.5-5.0); Albumin/Globulin Ratio 1.6 (1.1-1.8); Alkaline Phosphatase 136 U/L (38-126); Anion Gap 6.2 mEq/L (5-15); Aspartate Amino Transferase 16 U/L (14-36); Bilirubin,Total 0.3 mg/dl (0.2-1.3); Blood Urea Nitrogen 22 mg/dl (7-17); Calcium 8.5 mg/dl (8.4-10.2); Carbon Dioxide 30 mmol/L (22.0-30.0); Chloride 104 mmol/L (98-107); Estimated Glomerular Filt Rate 44 ml/min (>60); GFR (African American) 53 ML/MIN (>60); Globulin 1.7 g/dL (1.3-3.2); Glucose 90 mg/dl (74-100); Potassium 4.2 mmoL/L (3.5-5.1); Sodium 136 mmol/L (136-145); Total Protein,Serum 4.5 g/dl (6.3-8.2)
== END 2025-01-17 23:59 | disposition home or self-care (01) ==
PROVIDERS: PCP Nurse Practitioner Family; Visit Provider Nurse Practitioner Family
DX: I95.9 Hypotension, unspecified (principal)
CPT/HCPCS: 36415; 80053; 85025

== ENCOUNTER 2025-01-29 14:21 | Outpatient (POV) | payer MEDICARE, BC, SELFPAY ==
[2025-01-29 14:59] VITALS: BP 120/71; PULSE 67; RESP 18; O2SAT 95; BMI 34.0
--- NOTE | 2025-01-29 16:10 | EXP.PAIN.SOA ---
[facility] Disclaimer: The information contained in this section may have been updated after the patient was seen, as this information can be updated by other users. Medical History Paresthesia of left arm Altered mental status Decreased sensation of lower extremity Decreased pedal pulses Dysuria Acute UTI Chronic kidney disease, stage 3 unspecified COPD (chronic obstructive pulmonary disease) History of fall Edema of both lower extremities Age-related physical debility Anxiety Bipolar 1 disorder Body mass index [BMI] 34.0-34.9, adult Chronic venous hypertension (idiopathic) with ulcer of right lower extremity Depression Hypertensive chronic kidney disease Non-Hodgkin lymphoma Macrocytic anemia H/O lymphoma HTN (hypertension), benign Surgical History H/O cataract extraction History of vaginal delivery x 2 H/O bilateral breast reduction surgery Family History Other Unknown family medical history Social History Smoking Status: Unknown if ever smoked alcohol intake: never substance use type: denies use current occupational status: other Travel in the last 8 weeks?: None marital status: number of children: 2 PM Subjective & Objective Subjective Subjective:: Patient is a pleasant 79-year-old female who presents today for follow-up. Today she rates her pain as 7 out of 10. She denies any new trauma or injury. She does state it is still that same diabetic peripheral neuropathy that she is experiencing. 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 She states the pain is interfering with her ability perform activities of daily living such as cooking and cleaning. Patient is still dealing with her right lower leg for the ulcers and continues to see wound management on this. Patient has been using her compounded cream there at the long term however is asking whether or not how it is written that she was told she can only use it twice a day. Patient does state this really helps however she is having worsening pain that wakes her up in the middle of the night. Patient is prescribed Percocet and pregabalin at the facility however feels like these just are not cutting it. Her Dev has been reviewed and is appropriate. Review of Systems: General: No recent weight changes, no fever, no sleep disturbances Respiratory: No cough, no shortness of air, no recurring pulmonary infections Cardiovascular/peripheral vascular: No chest pain, no palpitations, no edema, no shortness of breath Gastrointestinal: No new onset incontinence, normal bowel movements reported Genitourinary: No new onset incontinence Musculoskeletal: Bilateral feet neuropathy Psychiatric: [Normal mood/affect] Neurological: [Denies weakness in extremities], [denies balance issues] Pain at rest (0-10 scale): 7 Objective Objective:: Physical Exam: General: Alert and oriented x3, no acute distress, pleasant and cooperative Lungs: Respirations even and unlabored, symmetrical chest expansion Eyes: PERRL Musculoskeletal: Flexion and extension of left ankle somewhat guarded secondary to pain, [antalgic gait noted] Neurological: Speech clear, no gross sensory deficit Has patient had previous pain injection?: No Conservative treatment options previously tried: Home exercise plan Length of treatment: Longer than 12 weeks Meds Home Medications and Allergies Home Medications ?Medication ?Instructions ?Recorded ?Confirmed ?Type divalproex 250 mg tablet,delayed 250 mg PO DAILY 06/23/24 01/29/25 History release fluticasone propionate 50 1 spray intranasal DAILY #16 grams 06/23/24 01/29/25 Rx mcg/actuation nasal spray,suspension loratadine 10 mg tablet 10 mg PO DAILY #90 tabs 06/23/24 01/29/25 Rx metoprolol tartrate 25 mg tablet 12.5 mg (1/2 x 25 mg) PO BID #30 06/23/24 01/29/25 Rx tabs omeprazole 20 mg capsule,delayed 20 mg PO DAILY #90 caps 06/23/24 01/29/25 Rx release potassium chloride 10 mEq 10 meq PO DAILY #30 tabs 06/23/24 01/29/25 Rx tablet,extended release ascorbic acid (vitamin C) 500 mg 500 mg PO BID 06/29/24 01/29/25 History capsule loperamide 2 mg capsule 2 mg PO Q3HP PRN Diarrhea 10/02/24 01/29/25 History ondansetron 4 mg disintegrating 4 mg PO Q6HP PRN Nausea And 10/02/24 01/29/25 History tablet Vomiting furosemide 40 mg tablet 40 mg PO DAILY 10/03/24 01/29/25 History melatonin 5 mg tablet 5 mg PO HS 10/03/24 01/29/25 History quetiapine 25 mg tablet 12.5 mg PO HS 10/03/24 01/29/25 History acetaminophen 500 mg tablet 500 mg PO TID 11/02/24 01/29/25 History sennosides 8.6 mg tablet (senna) 17.2 mg PO HS 11/02/24 01/29/25 History clonazepam 0.5 mg tablet 0.5 mg PO BID #60 tabs 12/05/24 01/29/25 Rx pregabalin 100 mg capsule See Rx Instructions PO .COMPLEX 01/18/25 01/29/25 Rx #120 caps oxycodone-acetaminophen 5 mg-325 1 tab PO TID #90 tabs 01/29/25 Rx mg tablet New Prescriptions to Start Prescriptions: Allergies Allergy/AdvReac Type Severity Reaction Status Date / Time codeine Allergy Verified 01/24/25 21:43 naproxen (From Anaprox) Allergy Verified 01/24/25 21:43 latex AdvReac Mild Verified 01/24/25 21:43 Assessment and Plan *Assessment and plan (1) Peripheral neuropathy: Status: Acute Category: Medical Code(s): G62.9 - Polyneuropathy, unspecified (2) Chronic pain: Status: Acute Category: Medical Code(s): G89.29 - Other chronic pain Plan Patient is experiencing worsening pain in her left ankle and foot related to continuing peripheral neuropathy. Patient did have limited sensation and I did discuss with her that I do believe she would benefit from repeat posterior tibial nerve block. Risk and benefits were discussed with patient and she would like to proceed forward with this plan of care. Patient has continued conservative therapy including oral medication, heat and ice, topicals, physical therapy and continued at home stretching exercise for longer than 12 weeks. Patient was also counseled that her compounded cream is written 3-4 times per day as needed and that we will send this over to the facility so they can make sure that it is documented as such. Patient was also counseled that I do believe that it would be beneficial to increase her pregabalin to 300 mg at bedtime where she is currently at 200 mg. We will also send this recommendation over to the long term facility. Patient will be scheduled for a repeat left posterior tibial nerve block. This will be done without fluoroscopic or ultrasound guidance. Patient did get 90% relief with her last nerve blocks that did provide 2 months of ongoing relief. Patient has been instructed to contact the clinic with any concerns before the next appointment. Dr. Fung has reviewed this note and agrees with this plan of care. This note was dictated using voice recognition software and make contain errors or omissions. All injections are used with Lidocaine, Bupivacaine and dexamethasone. Occasionally urine drug screen is needed to verify patient's compliance with our office pain contract. This is ordered based off specific treatments related to chronic pain with the potential to abuse certain medications.
== END 2025-01-29 23:59 | disposition home or self-care (01) ==
LOC: SC.PAIN 14:23
PROVIDERS: PCP Family Medicine; Visit Provider Nurse Practitioner Family
DX: G62.9 Polyneuropathy, unspecified (principal); G89.29 Other chronic pain; Z79.891 Long term (current) use of opiate analgesic; Z79.899 Other long term (current) drug therapy
CPT/HCPCS: 99212; G0463

== ENCOUNTER 2025-02-20 13:10 | Day surgery (SDC) | payer MEDICARE, BC, SELFPAY ==
[2025-02-20 13:21] VITALS: BP 139/68; PULSE 61; RESP 18; O2SAT 96; BMI 33.4
[2025-02-20] MEDS: LIDOCAINE 1% 5ML PF VIAL 5 ML (13:33)
[2025-02-20] MEDS: DEXAMETHASONE 10MG/ML 1ML VIAL 10 MG (13:33)
[2025-02-20] MEDS: BUPIVACAINE 0.25% 10ML INJ 25 MG IJ (13:33)
[2025-02-20 13:34] VITALS: BP 104/52; PULSE 63; RESP 18; O2SAT 93
[2025-02-20 13:35] VITALS: BP 104/52; PULSE 63; RESP 18; O2SAT 93
--- NOTE | 2025-02-20 13:48 | EXP.PAIN.PRO ---
Procedure Date: 02/20/25 Time: 13:15 Anesthesiologist:: Jasson Patton CRNA Complications:: None Pre-procedure Diagnosis:: Chronic left foot pain. Post-procedure Diagnosis:: Same. Indications for Procedure:: Patient is a pleasant 79-year-old female that presents in a wheelchair to our clinic today for for left posterior tibial nerve block. Patient describes left foot pain that is constant, dull, aching. She reports responding very well to previous posterior tibial nerve block. She rates her pain 6/10. Procedure Details:: Details of the procedure explained to the patient. The patient taken procedure and placed in the sitting position. The area over the left lateral malleus was cleansed using chlorhexidine as a cleansing solution. Using a 25-gauge inch and half needle the left lateral posterior aspect of the malleus was accessed with ease. After negative aspiration 3 cc of 1% lidocaine +3 cc 0.25% Marcaine and 10 mg of dexamethasone was injected incrementally. Patient tolerated procedure without difficulty. No complications. Plan and Disposition:: Patient was discharged without incident.
[2025-02-20 13:50] VITALS: BP 101/59; PULSE 61; RESP 18; O2SAT 97
== END 2025-02-20 13:50 | disposition home or self-care (01) ==
PROVIDERS: PCP Family Medicine; Visit Provider Nurse Practitioner Family
DX: G89.29 Other chronic pain (principal); M79.672 Pain in left foot; F41.9 Anxiety disorder, unspecified; F31.9 Bipolar disorder, unspecified; I12.9 Hypertensive chronic kidney disease with stage 1 through stage 4 chronic kidney disease, or unspecified chronic kidney disease; N18.30 Chronic kidney disease, stage 3 unspecified; J44.9 Chronic obstructive pulmonary disease, unspecified; F32.A Depression, unspecified; Z85.72 Personal history of non-Hodgkin lymphomas; Z79.899 Other long term (current) drug therapy; Z88.5 Allergy status to narcotic agent; Z91.040 Latex allergy status
CPT/HCPCS: 64450; J0665; J1100; J2003

== ENCOUNTER 2025-03-08 13:10 | Outpatient (CLI) | payer MEDICARE, BC, SELFPAY ==
--- NOTE | 2025-03-08 13:14 | XR_ITS ---
FINAL REPORT CLINICAL HISTORY: left wrist pain COMPARISON: None FINDINGS: LEFT WRIST Three views demonstrate no acute fracture or dislocation. The visualized joint spaces are normally aligned. The soft tissues are unremarkable. Mild osteopenia is present. IMPRESSION: Osteopenia, with no acute bony abnormality. Reviewed, Interpreted and Dictated by Bryan Melendez MD Transcribed by Dee Koehler Authenticated and [facility]
--- NOTE | 2025-03-08 13:14 | XR_ITS ---
FINAL REPORT CLINICAL HISTORY: left shoulder pain COMPARISON: None FINDINGS: LEFT SHOULDER 3 views of the left shoulder were obtained. There is no acute fracture or dislocation. There is mild acromioclavicular hypertrophic change noted. Soft tissues are unremarkable. Note is made of a port catheter present. IMPRESSION: Mild acromioclavicular hypertrophic change, with no acute bony abnormality. Reviewed, Interpreted and Dictated by Bryan Melendez MD Transcribed by Dee Koehler Authenticated and . [facility]
--- NOTE | 2025-03-08 13:14 | XR_ITS ---
FINAL REPORT TECHNIQUE: Left elbow 3 views CLINICAL HISTORY: left elbow pain COMPARISON: None FINDINGS: LEFT ELBOW: 3 images of the left elbow were obtained. There is no evidence of fracture or dislocation. There is significant narrowing of the medial compartment, along with subchondral sclerosis and osteophytes, consistent with osteoarthritic change. There is no soft tissue abnormality identified. IMPRESSION: Osteoarthritic change of the elbow, with no acute bony abnormality. Reviewed, Interpreted and Dictated by Bryan Melendez MD Transcribed by Dee Koehler Authenticated and [facility]
--- OUTSIDE RECORDS SUMMARY | 2025-03-08 13:14 | XMS_ITS | Encounter Summary ---
Author Organization [employer] ([place], [place], [place], [place]) Address [address] [place] [address] Care Team Providers Care Hand Meat Salter Name Role Phone Unavailable Primary Care Provider Unavailabl e Encounter Details Date Type Department Care Team (Late st Contact Info) Description 06/11/2021 Transcribed Document [facility] [place] [address] [place] [address] ProviderTg MD [address] [place] [address] Social History Tobacco Use Types Packs/Day Years Used Date Smoking Tobacco: Never Assessed Comments Unknown Sex and Gender Information Value Date Recorded Sex Assigned at Not on file Legal Sex Female 2:39 PM CDT Gender Identity Not on file Sexual Orientation Not on file documented as of this encounter Miscellaneous Notes * [employer] Conversion Note - Historical ProviderMD - 06/11/2021 2:36 PM CDT Attempt to Treat, OT Entered On: 06/11/2021 15:23 EDT Performed On: 06/11/2021 14:36 EDT by DUSTIN PINK OTR/Lachelle Attempt to Treat Unable to Treat Due To : Patient on hold Inability to Treat Comment : Hold per DUNCAN Blanca. Due to vitals being unstable. Will check back on 06/12> Notification : DUSTIN Ruggiero OTR/Lachelle - 06/11/2021 15:20 EDT documented in this encounter Plan of Treatment Not on file documented as of this encounter Visit Diagnoses Not on filedocumented in this encounter
--- OUTSIDE RECORDS SUMMARY | 2025-03-08 13:14 | XMS_ITS | Encounter Summary ---
Author Organization [employer] ([place], [place], [place], [place]) Address [address] [place] [address] Care Team Providers Care Corn Sheller Name Role Phone Unavailable Primary Care Provider Unavailabl e Encounter Details Date Type Department Care Team (Late st Contact Info) Description 06/07/2021 Transcribed Document [facility] [place] Family Medicine [address] [place] [address] ProviderTg MD [address] [place] [address] Social History Tobacco Use Types Packs/Day Years Used Date Smoking Tobacco: Never Assessed Comments Unknown Sex and Gender Information Value Date Recorded Sex Assigned at Not on file Legal Sex Female 2:39 PM CDT Gender Identity Not on file Sexual Orientation Not on file documented as of this encounter Miscellaneous Notes * [employer] Conversion Note - Tg Jones MD - 06/07/2021 2:25 PM CDT Jesus Meza Bedside Swallowing Screen Entered On: 06/08/2021 4:00 EDT Performed On: 06/08/2021 0:00 EDT by Magda Dawson Rn Modified Massey Bedside Swallowing 2 Exhibits Slurred or Garbled Speech : No 3 Trouble Speaking/Understanding Words : No 1 Alert (Follows Commands) : Yes 4 Exhibits Drooling : No 5 Wet-sounding Voice : No 6 Coughs After 1 tsp Water : No 7 Voice Sounds Gurgly After 1 tsp Water : No 8 Dribbles From Mouth After 1 tsp Water : No 9 Coughs After 60 mL of Water : No 10 Voice Gurgly After 60 mL Water : No 11 Dribbles from Mouth After 60 mL Water : No Magda Dawson Rn - 06/08/2021 3:59 EDT Electronically signed by Keven [facility] Conversion [employer] Sawyer Seng at 12/18/2022 9:14 AM CDT documented in this encounter Plan of Treatment Not on file documented as of this encounter Visit Diagnoses Not on filedocumented in this encounter
--- OUTSIDE RECORDS SUMMARY | 2025-03-08 13:14 | XMS_ITS | Encounter Summary ---
Author Organization [employer] ([place], [place], [place], [place]) Address [address] [place] [address] Care Team Providers Care Back Sizer Name Role Phone Unavailable Primary Care Provider Unavailabl e Encounter Details Date Type Department Care Team (Late st Contact Info) Description 06/07/2021 Transcribed Document [facility] [place] [address] [place] [address] ProviderTg MD [address] [place] [address] Social History Tobacco Use Types Packs/Day Years Used Date Smoking Tobacco: Never Assessed Comments Unknown Sex and Gender Information Value Date Recorded Sex Assigned at Not on file Legal Sex Female 2:39 PM CDT Gender Identity Not on file Sexual Orientation Not on file documented as of this encounter Miscellaneous Notes * [employer] Conversion Note - Tg Jones MD - 06/07/2021 11:51 PM CDT ED Discharge Entered On: 06/07/2021 23:52 EDT Performed On: 06/07/2021 23:51 EDT by Liz Gilliam RN-PATIENT CARE BEDSIDE NON-EXEMPT Discharge Process Patient Disposition : Admit/Observe Personal Belongings With Patient : Yes Patient Education Completed : Yes IV Discontinued : No Liz Gilliam RN-PATIENT CARE BEDSIDE NON-EXEMPT - 06/07/2021 23:51 EDT Admission, ED Nurse Report Accepted By : DUNCAN Man Nurse Report Acceptance Time : 06/07/2021 23:51 EDT `Nurse Report (Hand Off) : Called Fluids/Drips Continued on Admission : Yes Fluids/Drips Continued on Admission, Comment : Sodium Phosphate Liz Gilliam RN-PATIENT CARE BEDSIDE NON-EXEMPT - 06/07/2021 23:51 EDT documented in this encounter Plan of Treatment Not on file documented as of this encounter Visit Diagnoses Not on filedocumented in this encounter
--- OUTSIDE RECORDS SUMMARY | 2025-03-08 13:14 | XMS_ITS | Encounter Summary ---
Author Organization [employer] ([place], [place], [place], [place]) Address [address] [place] [address] Care Team Providers Care Doughnut Glazier Name Role Phone Unavailable Primary Care Provider Unavailabl e Encounter Details Date Type Department Care Team (Late st Contact Info) Description 06/07/2021 Transcribed Document [facility] [place] Medicine [address] [place] [address] ProviderTg MD [address] [place] [address] Social History Tobacco Use Types Packs/Day Years Used Date Smoking Tobacco: Never Assessed Comments Unknown Sex and Gender Information Value Date Recorded Sex Assigned at Not on file Legal Sex Female 2:39 PM CDT Gender Identity Not on file Sexual Orientation Not on file documented as of this encounter Miscellaneous Notes * [employer]ner Conversion Note - Tg ProviderMD - 06/07/2021 12:35 PM CDT Pain Assessment Entered On: 06/07/2021 16:36 EDT Performed On: 06/07/2021 16:36 EDT by BALDEMAR LOBO RN Intervention Information: acetaminophen Performed by BALDEMAR LOBO RN on 06/07/2021 13:02:00 EDT acetaminophen,975mg Oral Pain Assessment Pain Assessment : Follow-up assessment Pain Scale Used : 0-10 Scale Location : Other: Not for pain, used for fever BALDEMAR LOBO RN - 06/07/2021 16:36 EDT Pain Scale Intensity : 0 BALDEMAR LOBO RN - 06/07/2021 16:36 EDT Image 4 - Images currently included in the form version of this document have not been included in the text rendition version of the form. documented in this encounter Plan of Treatment Not on file documented as of this encounter Visit Diagnoses Not on filedocumented in this encounter
--- OUTSIDE RECORDS SUMMARY | 2025-03-08 13:14 | XMS_ITS | Encounter Summary ---
Author Organization [employer] ([place], [place], [place], [place]) Address [address] [place] [address] Care Team Providers Care Global Product Manager Name Role Phone Unavailable Primary Care Provider Unavailabl e Encounter Details Date Type Department Care Team (Late st Contact Info) Description 06/10/2021 Transcribed Document [facility] [place] [address] [place] [address] ProviderTg MD [address] [place] [address] Social History Tobacco Use Types Packs/Day Years Used Date Smoking Tobacco: Never Assessed Comments Unknown Sex and Gender Information Value Date Recorded Sex Assigned at Not on file Legal Sex Female 2:39 PM CDT Gender Identity Not on file Sexual Orientation Not on file documented as of this encounter Miscellaneous Notes * [employer] Conversion Note - Historical ProviderMD - 06/10/2021 11:57 AM CDT Attempt to Treat, PT Entered On: 06/10/2021 11:58 EDT Performed On: 06/10/2021 11:57 EDT by VINH JASSO PT Student Attempt to Treat Unable to Treat Due To : Acuity of Illness VINH JASSO, PT Student - 06/10/2021 11:57 EDT Inability to Treat Comment : Per Nsg. Rahman, pt is not appropriate for PT today due to having a rough night with tachycardia and unstable SPO2% levels. PT/OT will treat tomorrow if appropriate. PT has reviewed and agrees with note. RENY BLAIR PT - 06/10/2021 12:15 EDT Electronically signed by Keven [facility] Conversion [employer] Specialist Technician Cerner at 12/18/2022 9:11 AM CDT documented in this encounter Plan of Treatment Not on file documented as of this encounter Visit Diagnoses Not on filedocumented in this encounter
--- OUTSIDE RECORDS SUMMARY | 2025-03-08 13:14 | XMS_ITS | Encounter Summary ---
Author Organization [employer] ([place], [place], [place], [place]) Address [address] [place] [address] Care Team Providers Care Dry Transfer Man Name Role Phone Unavailable Primary Care Provider Unavailabl e Encounter Details Date Type Department Care Team (Late st Contact Info) Description 06/07/2021 Transcribed Document [facility] Family Medicine [address] [place] [address] ProviderTg MD [address] [place] [address] Social History Tobacco Use Types Packs/Day Years Used Date Smoking Tobacco: Never Assessed Comments Unknown Sex and Gender Information Value Date Recorded Sex Assigned at Not on file Legal Sex Female 2:39 PM CDT Gender Identity Not on file Sexual Orientation Not on file documented as of this encounter Miscellaneous Notes * Cerner Conversion Note - Tg ProviderMD - 06/07/2021 2:19 PM CDT Evaluation, Occupational Therapy Entered On: 06/08/2021 16:07 EDT Performed On: 06/08/2021 15:55 EDT by ELSA CHILDS, OTR/L General Information, OT Visit Type, OT : Initial evaluation Patient Orders : Order Date Order Ordering 06/07/2021 14:19 OT Evaluation and Treatment Ordered By: CARA DE LA ROSA PA Active Diagnoses : 06/07/2021 12:00 Altered mental status 06/07/2021 12:00 Sepsis, unspecified organism 06/07/2021 12:00 Urinary tract infection, site not specified Therapy Diagnosis, OT : Decreased independence in ADLs and functional mobility Onset of Problem, OT : 06/07/2021 EDT Admission Date : 06/07/2021 12:36 Co-treated by, OT : Physical Therapist Personal Devices : Personal Devices No Devices Recorded Assistive Devices : Assistive Devices No Devices Recorded Isolation Maintained : Airborne General Information Comment, OT : Dx: UTI, sepsis, AMS, COVID+ ELSA CHILDS OTR/Lachelle - 06/08/2021 15:59 EDT General Status Patient Received Status : Supine in bed Treatment Start Time : 06/08/2021 15:39 EDT Patient Left Status : Supine in bed, RN/PCT informed, All needs met and within reach RN/PCT Informed Comment : DUNCAN carpioed tx Treatment End Time : 06/08/2021 15:55 EDT Treatment Time : 16 Minute(s) ELSA CHILDS OTR/Lachelle - 06/08/2021 15:59 EDT History and Environment, OT Living Situation, Therapy : Home Patient Lives With : Adult Child/Children, Parent(s) Persons Providing Information : Patient Home Equipment, Therapy : Commode, Shower Equipment, Walker Commode : Commode, bedside Shower Equipment : Shower Chair, with back Walker : Walker, four wheel Home Setup : One story Bedroom Location : Main level Bathroom #1 Location : Main level Stairs : Yes Stair Location(s) : Outside Outside Stairs, Number of Steps : 3 Railing Outside : Yes Outside Railing Position : Left, going up ELSA CHILDS OTR/Lachelle - 06/08/2021 15:59 EDT Prior LOF Bathing, OT : Assist needed Prior LOF Bed Mobility : Assist needed Prior LOF Upper Body Dressing, OT : Assist needed Prior LOF Lower Body Dressing, OT : Assist needed Prior LOF Toileting : Assist needed Prior LOF Transfer : Assist needed Prior LOF Grooming, OT : Assist needed Prior LOF for IADLs, OT : Assist needed ELSA CHILDS OTR/Lachelle - 06/08/2021 15:59 EDT Prior LOF Assist with ADL Comment : Pt reported assistance required for PLOF, however unsure how accurate this is as pt seemed very fatigued. ELSA CHILDS OTR/Lachelle - 06/08/2021 15:59 EDT Upper Extremity Upper Extremity Dominance : Right Right UE Passive ROM : WFL Right UE Strength : Impaired Left UE Passive ROM : WFL Left UE Strength : Impaired ELSA CHILDS OTR/Lachelle - 06/08/2021 15:59 EDT Right Upper Extremity MMT Shoulder Flexion 0-180 : 2/poor Shoulder Extension 0-60 : 2/poor Shoulder Abduction 0-180 : 2/poor Shoulder Adduction 0-180 : 2/poor Shoulder Internal Rotation 0-90 : 2/poor Shoulder External Rotation 0-90 : 2/poor Elbow Flexion 0-150 : 2/poor Elbow Extension 0-0 : 2/poor Wrist Flexion 0-80 : 2/poor Wrist Extension 0-70 : 2/poor Forearm Pronation 0-70 : 2/poor Forearm Supination 0-85 : 2/poor Ulnar Deviation 0-45 : 2/poor RadialDeviation 0-20 : 2/poor ELSA CHILDS OTR/L - 06/08/2021 15:59 EDT Left Upper Extremity MMT Shoulder Flexion 0-180 : 2/poor Shoulder Extension 0-60 : 2/poor Shoulder Abduction 0-180 : 2/poor Shoulder Adduction 0-180 : 2/poor Shoulder Internal Rotation 0-90 : 2/poor Shoulder External Rotation 0-90 : 2/poor Elbow Flexion 0-150 : 2/poor Elbow Extension 0-0 : 2/poor Wrist Flexion 0-80 : 2/poor Wrist Extension 0-70 : 2/poor Forearm Pronation 0-70 : 2/poor Forearm Supination 0-85 : 2/poor Ulnar Deviation 0-45 : 2/poor RadialDeviation 0-20 : 2/poor ELSA CHILDS OTR/L 06/08/2021 15:59 EDT Self Care/Home Management, OT Self Feeding Assist Level, OT : Assist, minimal Grooming Assist Level, OT : Assist, minimal Bathing Assist Level, OT : Assist, moderate Upper Body Dressing Assist Level, OT : Assist, minimal Lower Body Dressing Assist Level, OT : Assist, minimal Toileting Assist Level : Assist, minimal Toilet Transfer Assist Level : Assist, minimal ELSA CHILDS OTR/L 06/08/2021 15:59 EDT Functional Mobility Mobility Grid Bed Roll Left : Rehab Minimal assistance Supine to Sit : Rehab Minimal assistance (Comment: x2 [ELSA CHILDS OTR/Lachelle 06/08/2021 15:59 EDT] ) Sit to Supine : Rehab Minimal assistance (Comment: x2 [ELSA CHILDS OTR/L 06/08/2021 15:59 EDT] ) CHILDSELSA OTR/Lachelle - 06/08/2021 15:59 EDT Cognition Assessment, OT Orientation : Oriented x 4 AMADEO ZENY WESTFALL/Lachelle - 06/08/2021 15:59 EDT Indication Assessment, OT Occupational Therapy Indicated : Yes Problem List, OT : Impaired, bed mobility, Impaired, activities daily living, Impaired, endurance tolerance, Impaired functional mobility Potential Barriers, OT : Acuity of illness Rehabilitation Potential, OT : Good CHILDSELSA OTR/Lachelle - 06/08/2021 15:59 EDT Plan of Care, OT OT Tx Plan/Goals Established w Patient : Yes OT Frequency Rehab : Five days per week OT Duration Rehab : Fourteen days OT Treatments Planned : Activities of daily living, Functional mobility training, Pain management, Safety education, Therapeutic activities CHILDSELSA OTR/Lachelle - 06/08/2021 15:59 EDT Vineyard Supervisor Goals, OT Grooming LTG Grid Goal #1 Activity : Grooming Assist : Independent, modified Date to Meet : 06/22/2021 EDT Goal Status : Initial goal CHILDSELSA OTR/Lachelle - 06/08/2021 15:59 EDT Dressing, Lower Body LTG Grid Goal #1 Activity : Dressing, Lower Body Assist : Independent, modified Date to Meet : 06/22/2021 EDT Goal Status : Initial goal CHILDSELSA OTR/Lachelle - 06/08/2021 15:59 EDT Toilet Transfer LTG Grid Goal #1 Activity : Toilet Transfer, Ambulatory Assist : Independent, modified Date to Meet : 06/22/2021 EDT Goal Status : Initial goal CHILDSELSA OTR/Lachelle - 06/08/2021 15:59 EDT Bed Mobility/ Bed Transfer LTG Grid Goal #1 Activity : Bed Mobility/Bed Transfer Assist : Independent, modified Date to Meet : 06/22/2021 EDT Goal Status : Initial goal ELSA CHILDS OTR/Lachelle - 06/08/2021 15:59 EDT Treatment Note Subjective Comment : Pt was agreeable, however seemed fatigued. Patient's Response to Treatment : Pt tolerated evaluation well. Additional Objective Information : Pt was found supine upon arrival. Pt participated in formal evaluation quesitoning. Pt demonstrated WFL during PROM testing, but with impaired AROM due to weakness. Pt demonstrated a 2/5 during MMT testing of BUEs. Pt to EOB with Linda x2, sustaining sitting balance for ~3 minutes with CGA. Pt returned to supine with Linda x2 and was left with all needs met and CL in reach. Assessment : Pt will benefit from skilled OT services during increase independence and safety in ADLs and functional mobility. Plan for Treatment : See OT goals. ELSA CHILDS OTR/L - 06/08/2021 15:59 EDT Pain Assessment Pain Scaled Used : 0-10 Pain scale Pain Score Pre-Intervention : 0 ELSA CHILDS OTR/L - 06/08/2021 15:59 EDT Image 1 - Images currently included in the form version of this document have not been included in the text rendition version of the form. Anticipated Discharge Needs, OT/PT Anticipated Discharge to : Home, with home health ELSA CHILDS OTR/L - 06/08/2021 15:[address] [facility] OT Charges OT Eval Low Complexity : 1 ELSA CHILDS OTR/L - 06/08/2021 15:59 EDT documented in this encounter Plan of Treatment Not on file documented as of this encounter Visit Diagnoses Not on filedocumented in this encounter
--- OUTSIDE RECORDS SUMMARY | 2025-03-08 13:14 | XMS_ITS | Encounter Summary ---
Author Organization [employer] ([place], [place], [place], [place]) Address [address] [place] [address] Care Team Providers Care Rn Spine Name Role Phone Unavailable Primary Care Provider Unavailabl e Encounter Details Date Type Department Care Team (Late st Contact Info) Description 06/10/2021 Transcribed Document [facility] Family Medicine [address] [place] [address] ProviderTg MD [address] [place] [address] Social History Tobacco Use Types Packs/Day Years Used Date Smoking Tobacco: Never Assessed Comments Unknown Sex and Gender Information Value Date Recorded Sex Assigned at Not on file Legal Sex Female 2:39 PM CDT Gender Identity Not on file Sexual Orientation Not on file documented as of this encounter Miscellaneous Notes * Cerner Conversion Note - Tg ProviderMD - 06/10/2021 12:21 PM CDT RX Interventions Entered On: 06/10/2021 12:22 EDT Performed On: 06/10/2021 12:21 EDT by Zac Melendez, WendieD/MPH, Pharmacist-Resident Clinical Interventions TERESA Prevention - Minor : Yes Zac Melendez, WendieD/MPH, Pharmacist-Resident - 06/10/2021 12:21 EDT TERESA Prevention - Minor TERESA Prevention - Minor, Order : All possive IV solutions changed to dextrose. Remdesivir can only be administered in [place]. Thank you for this consult. TERESA Prevention - Minor, Value : 220 Dollar TERESA Prevention - Minor, Time : 15 Minute(s) Zac Melendez, PharmD/MPH, Pharmacist-Resident - 06/10/2021 12:21 EDT documented in this encounter Plan of Treatment Not on file documented as of this encounter Visit Diagnoses Not on filedocumented in this encounter
--- OUTSIDE RECORDS SUMMARY | 2025-03-08 13:14 | XMS_ITS | Encounter Summary ---
Author Organization [employer] ([place], [place], [place], [place]) Address [address] [place] [address] Care Team Providers Care Screen Making Technician Name Role Phone Unavailable Primary Care Provider Unavailabl e Encounter Details Date Type Department Care Team (Late st Contact Info) Description 06/07/2021 Transcribed Document [facility] [place] Family Medicine [address] [place] [address] ProviderTg MD [address] [place] [address] Social History Tobacco Use Types Packs/Day Years Used Date Smoking Tobacco: Never Assessed Comments Unknown Sex and Gender Information Value Date Recorded Sex Assigned at Not on file Legal Sex Female 2:39 PM CDT Gender Identity Not on file Sexual Orientation Not on file documented as of this encounter Miscellaneous Notes * Cerner Conversion Note - Tg ProviderMD - 06/07/2021 1:05 PM CDT Admission History, Adult Entered On: 06/08/2021 1:49 EDT Performed On: 06/07/2021 13:05 EDT by Magda Dawson Rn Advance Directive Patient has Advance Directive *Q : Yes, Advance Directive not with the patient Advance Directive Type : Living will Advance Directive Date : 08/12/2018 EST Copy Advance Directive Verified/on Chart : No Magda Dawson Rn - 06/08/2021 1:39 EDT Anesthesia/Transfusion History Family History of Anesthesia Reaction : Prior transfusion without reaction Transfusion History : Prior anesthesia without reaction Family History of Anesthesia Reaction : None Magda Dawson Rn - 06/08/2021 1:39 EDT Functional Assessment Living Situation : Home Patient Lives With : Parent(s) Current Daily Living Assistance : None MORALES Hx Falls Immediate/Within 3 Months : No Current Home Treatments : None Magda Dawson Rn - 06/08/2021 1:39 EDT General Info Unable to Assess Patient History : Patient confused Preferred Name : Rashmi Arrived From : Emergency department Mode of Arrival on Unit : Stretcher Legal Guardian : Unaccompanied Want Family/Rep/Phys Notified of Admit : No Emergency Contact #1 : rome solorzano Emergency Contact #1 Emergency Contact #1 Relationship : son Emergency Contact #2 : n/a Emergency Contact #2 Phone Number : n/a Emergency Contact #2 Relationship : n/a Chief Complaint : Patient livies with 98 yo father who is currently COVID +. Patient's son found patient sitting on couch and incontinent of urine and stool. patient with general weakness and AMS erday Information Obtained From : Patient Primary Language : Venezuelan Communication Barrier : None Ip Paralegal Needed : No Magda Dawson Rn - 06/08/2021 1:39 EDT Fall Risk Scales ABCs Fall Injury Risk Identification : Age, Bones ABC Fall Injury Risk : Moderate to high injury risk Injury Moderate to High Risk Interventions : Bed alarm on, Specialty low bed, Transport methods appropriate to patient MORALES Hx Falls Immediate/Within 3 Months : No Morales Secondary Diagnosis : Yes MORALES Use of Ambulatory Aid : Bed rest/Nurse assist MORALES IV Therapy or IV Access : Yes Morales Gait/Transferring : Weak Morales Mental Status : Oriented to own ability Morales Fall Risk Score : 45 MORALES Fall Scale Risk Level : 25-45 Medium Risk [place] Fall Interventions : Adequate lighting, Assistive devices within reach, Bed in low position, Call device within reach, Frequent orientation to call device, Frequent orientation to surroundings, Hourly comfort/safety rounds, Non-slip footwear, Personal items within reach, Reinforced to call for assistance before getting out of bed, Room free of clutter/spills, Upper side-rails up, Wheels locked, Wires/Cords secured Fall Moderate to High Risk Interventions : Bed alarm on, Transport methods appropriate to patient Fall Risk Scale Calc Temp : 0 Magda Dawson Rn - 06/08/2021 1:39 EDT Health Histories Smoking Status : Never (less than 100 in lifetime; none in last 30 days) Smokeless Tobacco Status : Never Magda Dawson Rn - 06/08/2021 1:39 EDT Social History (As Of: 06/08/2021 01:49:57 EDT) Tobacco: Smoking Status Never smoker. Second Hand Smoke Exposure: Yes. (Last Updated: 06/05/2016 13:52:39 EDT by MANNY CHAVEZ, DUNCAN) Alcohol: Alcohol Use History No. (Last Updated: 06/05/2016 13:52:48 EDT by MANNY CHAVEZ, DUNCAN) Substance Abuse: Drug Use Hx: No. Use in Last 12 Months: No. (Last Updated: 06/05/2016 13:52:55 EDT by MANNY CHAVEZ, DUNCAN) Nutrition/Health: Regular, Caffeine intake amount: Coffee, soda daily. (Last Updated: 06/05/2016 13:53:22 EDT by MANNY CHAVEZ, DUNCAN) Home/Environment: Lives with 94 y/o father. Living situation: Home/Independent. Home equipment: Walker/Cane, shower chair. Alcohol abuse in household: No. Substance abuse in household: No. Smoker in household: No. Injuries/Abuse/Neglect in household: No. Feels unsafe at home: No. Family/Friends available for support: Yes. (Last Updated: 06/05/2016 13:54:27 EDT by MANNY CHAVEZ, DUNCAN) Employment/School: Retired, Previous employment/school: [employer]. (Last Updated: 06/05/2016 13:55:00 EDT by MANNY CHAVEZ, DUNCAN) Height and Weight, Clinical Dosing Height Source : Stated Height Entry Format : [place] Height, Feet : 5 ft(Converted to: 152 cm, 60 Inch) Height, Inches : 2 Inch(Converted to: 0 ft 2 Inch, 5.08 cm) Clinical Height : 157.48 cm Weight Source : Bed scale Weight Entry Format : [place] Clinical Dosing Weight : 113.64 kg Weight, Pounds : 250 lb Body Surface Area (BSA) : 2.1 m2 Body Mass Index : 45.8 kg/m2 (>HHI) [place] Body Weight : 50 kg Magda Dawson Rn - 06/08/2021 1:39 EDT Infectious Disease History Does patient have symptoms of COVID-19? : Yes Has the Patient Been Tested for COVID-19 in the last 14 days? : No, Patient stated Does the Patient state known exposure to a COVID-19 positive case in the last 14 days? : Yes, under quarantine Patient Vaccinated for COVID-19 : Fully vaccinated Magda Dawson Rn - 06/08/2021 1:39 EDT Infectious Disease Risk Screening Grid Cough < 2 wks of unknown origin : Yes Cough > 2 weeks : NO Blood in Sputum : NO Fever or self-reported Fever : NO Rash of unknown origin : NO Headache : NO Stiff neck : NO Night Sweats : NO Unexplained Weight Loss : NO Diarrhea (3 episode per day) : NO Magda Dawson Rn - 06/08/2021 1:39 EDT Physical contact outside [place] in the last 30 days : No Hospitalized in Foreign Country : No Infectious Disease History : Chicken pox/Shingles, Influenza, Measles, Mumps, Scarlet fever, Pertussis (Whooping cough) INF Disease TB Screening Calc : 1 INF Disease Recent Travel Calc : 0 Magda Dawson Rn - 06/08/2021 1:39 EDT Influenza Vaccine Asmt, Adult Previous Vaccines from Immunization Schedule : No qualifying data available. Influenza Immunization, Current Season : No Inactivated Flu Vaccine Contraindications : No contraindications to inactivated influenza vaccine Transplant Workup/Recent Transplant : No Order for Influenza Vaccine : Declined Vaccination Magda Dawson Rn - 06/08/2021 1:39 EDT Pneumococcal Vaccine Previous Vaccines from Immunization Schedule : No qualifying data available. Pneumonia Immunization Received : Yes Magda Dawson Rn - 06/08/2021 1:39 EDT Order Details Order Detail : N/A Patient Needs Meds Crushed/Liquid : No Magda Dawson Rn - 06/08/2021 1:39 EDT Nutrition History Feeding Ability : Independent Eating Poorly Due to Decreased Appetite : No Unplanned Weight Loss in Past 3-6 Months : No Malnutrition Screening Tool Total(mal) : 0 Malnutrition Screening Tool Risk Level : Patient not at risk Magda Dawson Rn - 06/08/2021 1:39 EDT [place] Suicide Severity Rating Scale (C-SSRS) CSSRS Past Month Wish to be : No CSSRS Past Month Suicidal Thoughts : No CSSRS Lifetime Suicide Behavior : No Suicide Severity Rating Score : 0 Suicide Severity Rating : No Additional Care Required at this time Magda Dawson Rn - 06/08/2021 1:39 EDT Psychosocial History Do You Have a History of the Following? : Depression Currently in Unsafe Situation : No Magda Dawson Rn - 06/08/2021 1:39 EDT Sleep Apnea Risk Assmt Hx of Obstructive Sleep Apnea Diagnosis : No Snore Loudly : No Tired, Fatigued, or Sleepy During Day : No Observed Stopping Breathing During Sleep : No Have/Are Being Treated for Hypertension : Yes BMI Greater Than 35 kg/m2 : Yes Age over 50 Years Old : Yes Neck Circumference Greater Than 40 cm : No Gender Male : No STOP-BANG Sleep Apnea Risk Level Score : 3 Magda Dawson Rn - 06/08/2021 1:39 EDT Valuables and Belongings Valuables and Belongings : Clothing, Personal items Clothing : Common streetwear Clothing Disposition : With patient Personal Items : Cell phone Personal Items Disposition : With patient Magda Dawson Rn - 06/08/2021 1:39 EDT documented in this encounter Plan of Treatment Not on file documented as of this encounter Visit Diagnoses Not on filedocumented in this encounter
--- OUTSIDE RECORDS SUMMARY | 2025-03-08 13:14 | XMS_ITS ---
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 Name Role Phone VALERIA WOOD Unavailable Unavailable Ibis Olmedo Unavailable Unavailab Sari Mcdaniel Unavailable Unavailable Allergies and adverse reactions Code CodeSystem Substance Reaction Severity StartDate Concern Status 7258 RXNORM Naproxen Unknown 06/28/2021 active Latex Unknown 06/28/2021 active 2670 RXNORM Codeine Unknown 06/28/2021 active Care Team Name Role Address Phone Organization Dates VALERIA WOOD [facility] [address], [place], [place], [facility], [facility] (Office): : [facility] 07/29/2021 - 10/14/2021 Ibis Olmedo [address], [place] [address], [facility] (Office): : : [facility] 07/29/2021 - 10/14/2021 Sari Carnes [address], [place] [address], [facility] (Office): : : [facility] 07/29/2021 - 10/14/2021 Immunizations Immunization Status Vaccine Details Vaccine Code CodeSystem Date Notes TB 2 Step Mantoux Skin Test completed tuberculin skin test; purified protein derivative solution, intradermal Given 0.1 ml Left Forearm intradermally Step 2 of Multi-step with next step required 96 CVX created date: 07/09/2021 consent date: 07/09/2021 administere d date: 07/09/2021 TB 2 Step Mantoux Skin Test completed tuberculin skin test; purified protein derivative solution, intradermal Given 0.1 ml Left Forearm intradermally Step 1 of Multi-step with next step required 96 CVX created date: 06/29/2021 consent date: 06/29/2021 administere d date: 06/29/2021 Pneumovax completed pneumococcal vaccine, unspecified formulation 109 CVX created date: 06/29/2021 administere d date: 08/31/2017 Influenza-High Dose(Fluzone) completed Influenza, high-dose, split virus, trivalent, injectable, preservative free Given Right Deltoid intramuscularly 135 CVX created date: 06/29/2021 consent date: 06/29/2021 administere d date: 06/30/2021 Moderna COVID-19 Vaccine completed SARS-COV-2 (COVID-19) vaccine, mRNA, spike protein, LNP, preservative free, 100 mcg/0.5mL dose or 50 mcg/0.25mL dose Mfg: MOD-MODERNA Given Right Deltoid intramuscularly 207 CVX created date: 07/18/2021 administere d date: 07/17/2021 Moderna COVID-19 Vaccine completed SARS-COV-2 (COVID-19) vaccine, mRNA, spike protein, LNP, preservative free, 100 mcg/0.5mL dose or 50 mcg/0.25mL dose 207 CVX created date: 06/29/2021 administere d date: 12/27/2020 Moderna COVID-19 Vaccine completed SARS-COV-2 (COVID-19) vaccine, mRNA, spike protein, LNP, preservative free, 100 mcg/0.5mL dose or 50 mcg/0.25mL dose 207 CVX created date: 06/29/2021 administere d date: 11/26/2020 Mental Status Section Date Assessment Total Score Description 10/14/2021 BIMS 12 moderate cognit rojas impairment CAM 0 No delirium ind icated PHQ-9 10 moderate depres bharat 10/05/2021 BIMS 13 cognitively int act CAM 0 No delirium ind icated PHQ-9 00 Problems Problem # Description Date of onset Resolved Date Code CodeSystem Concern Status 1 ANEMIA, UNSPECIFIED 976913147 SNOMED CT active 2 NEED FOR ASSISTANCE WITH PERSONAL CARE 47559024477749382 SNOMED CT active 3 PNEUMONIA DUE TO CORONAVIRUS DISEASE 2019 07/29/[id number] completed 4 POISONING BY OTHER ANTIPSYCHOTICS AND NEUROLEPTICS, ACCIDENTAL (UNINTENTIONAL), SEQUELA 515806804 SNOMED CT active 5 UNSPECIFIED COMBINED SYSTOLIC (CONGESTIVE) AND DIASTOLIC (CONGESTIVE) HEART FAILURE 70570305 SNOMED CT active 6 URINARY TRACT INFECTION, SITE NOT SPECIFIED 92147824 SNOMED CT active 7 DIFFICULTY IN WALKING, NOT ELSEWHERE CLASSIFIED 047912253 SNOMED CT active 8 DYSPHAGIA, UNSPECIFIED 83991287 SNOMED CT active 9 UNSPECIFIED LACK OF COORDINATION 07/21/[address] completed 10 ANXIETY DISORDER, UNSPECIFIED 999997404 SNOMED CT active 11 BIPOLAR DISORDER, UNSPECIFIED 32499433 SNOMED CT active 12 COVID-[address] active 13 ESSENTIAL (PRIMARY) HYPERTENSION 76451653 SNOMED CT active 14 GASTRO-ESOPHAGEAL REFLUX DISEASE WITHOUT ESOPHAGITIS 041932346 SNOMED CT active 15 HYPERLIPIDEMIA, UNSPECIFIED 25742765 SNOMED CT active 16 INSOMNIA, UNSPECIFIED 700101297 SNOMED CT active 17 METABOLIC ENCEPHALOPATHY [address] active 18 MORBID (SEVERE) OBESITY DUE TO EXCESS CALORIES 285096021 SNOMED CT active 19 MUSCLE WEAKNESS (GENERALIZED) 25359998 SNOMED CT active 20 NON-HODGKIN LYMPHOMA, UNSPECIFIED, UNSPECIFIED SITE 687021912 SNOMED CT active 21 OTHER PULMONARY EMBOLISM WITHOUT ACUTE COR [place] 28443644 SNOMED CT active 22 OTHER RECURRENT DEPRESSIVE DISORDERS 412238330 SNOMED CT active 23 PNEUMONIA DUE TO CORONAVIRUS DISEASE 2019 07/21/[address] completed 24 PNEUMONIA, UNSPECIFIED ORGANISM 07/21/[address] completed 25 RESPIRATORY FAILURE, UNSPECIFIED, UNSPECIFIED WHETHER WITH HYPOXIA OR HYPERCAPNIA 517966334 SNOMED CT active 26 SEPSIS, UNSPECIFIED ORGANISM 07/21/[address] completed 27 SLEEP APNEA, UNSPECIFIED 78404384 SNOMED CT active 28 UNSPECIFIED DEMENTIA, UNSPECIFIED SEVERITY, WITHOUT BEHAVIORAL DISTURBANCE, PSYCHOTIC DISTURBANCE, MOOD DISTURBANCE, AND ANXIETY 79988269 SNOMED CT active 29 UNSPECIFIED OSTEOARTHRITIS, UNSPECIFIED SITE 160914877 SNOMED CT active 30 URINARY TRACT INFECTION, SITE NOT SPECIFIED 07/21/[address] completed Reason for Referral No Reasons for Referral Entered Social History Social History Observation Description Start Date End Date Code Code System Current Smoking Status Tobacco smoking consumption unknown 263604463 SNOMED CT Sex Assigned At Female 1945 14756-8 [facility] Gender Identity Vital Signs Code Code System Vitals Name Values and Units Timing Information 8462-4 [facility] Blood Pressure-Diastolic Value=67 Un its=mmHg 10/14/2021 8480-6 [facility] Blood Pressure-Systolic Pzkoe=483 Un its=mmHg 10/14/2021 8867-4 [facility] Heart rate Value=99.0 Units=/min 9279-1 [facility] Respiratory Rate Value=18.0 Units=/m in 10/13/2021 8310-5 [facility] Body Temperature Value=98.6 Units= F 10/13/2021 62159-4 [facility] O2 % BldC Oximetry Value=96.0 Units= % 10/13/2021 63102-4 [facility] Pain Level Value=0.0 10/13/2021 74090-2 [facility] Weight Xuegw=787.4 Units=Lbs 11/2021 8302-2 [facility] Height Value=64.0 Units=Inches 08/01/2021
--- OUTSIDE RECORDS SUMMARY | 2025-03-08 13:14 | XMS_ITS | Encounter Summary ---
Author Organization [employer] ([place], [place], [place], [place]) Address [address] [place] [address] Care Team Providers Care Machine Bobbin Winder Name Role Phone Unavailable Primary Care Provider Unavailabl e Encounter Details Date Type Department Care Team (Late st Contact Info) Description 06/11/2021 Transcribed Document [facility] [place] [facility] [address] [place] [address] ProviderTg MD [address] [place] [address] Social History Tobacco Use Types Packs/Day Years Used Date Smoking Tobacco: Never Assessed Comments Unknown Sex and Gender Information Value Date Recorded Sex Assigned at Not on file Legal Sex Female 2:39 PM CDT Gender Identity Not on file Sexual Orientation Not on file documented as of this encounter Miscellaneous Notes * Cerner Conversion Note - Tg Jones MD - 06/11/2021 11:27 PM CDT Patient: SUDHA TIMMONS Age: 75 years Sex: Female : 1945 Associated Diagnoses: None Author: JUHI VALERIO MD-INF Basic Information CC: respiratory failure HISTORY OF PRESENT ILLNESS 75 year old female with history of Non-Hodgkin's lymphoma, dementia, bipolar disorder and hypertension. History is obtained from the chart and from discussion with her son lethargy and dysuria. He found her to be confused at home and brought her to the ED 06/07. O2 sat 89% on RA and T 102. CXR showed bilateral infiltrates UA showed pyuria Evidently her 98 year old father tested positive for COVID-19 recently. Her COVID-19 test was positive. She was strated on remdesivir and dexamethasone and admitted Initially she did well on 2L O2 but her O2 requirements have increased and she is now on optiflow. CTA today showed bilateral infiltrates and multiple small filling deficits c/w with PE in the RLL pulmonary artery. She is on therapeutic lovenox CRP 12-> 13-> 10 LDH 771. Troponin 2.7 and she has been evaluated by Cardiology. Echo shows 35% EF and akinetic apex She states that she has been vaccinated but is unable to tell me the dates 06/10/21 Afebrile, remains on optiflow 60%, speech more difficult to understand although she does not appear to be in distress, creat 1.0-> 1.5 D dimer 9.2-> 2.95 LFTs improved 06/11 afebrile, remains on optiflow HF, not speaking at the time of my visit bactrim stopped and atovaquone started PAST MEDICAL HISTORY Non-Hodgkin's lymphoma- finished therapy > 1 year ago per son Bipolar Dementia Hypertension Surgical History: Heart cath Bilateral breast reduction Cataract surgery Sciatic nerve surgery Social History: Lives with her 98 year old father. No tobacco, alcohol, or drug use. Family History: Mother in her 70's of unknown illness Review of Systems Unable to obtain Health Status Current medications: (Selected) Inpatient Medications Ordered Combivent Respimat CFC free 100 mcg-20 mcg/inh inhalation aerosol: 2 Puff, Inhalation, RT_QID Core.25 mg, Oral, BID D5W 1,000 mL: 75 mL/Hr, IntraVENous, Stop: 06/12/21 18:55:00 EDT Lopressor: 5 mg, IV Push, Q3H, PRN: Tachycardia Lovenox: 115 mg, SubCutaneous, [id number] Mucinex: 1,200 mg, Oral, BID Protonix: 40 mg, IV Push, Daily SEROquel: 25 mg, Oral, [id number] Zofran: 4 mg, IV Push, Q4H, PRN: Nausea aspirin: 81 mg, Oral, Daily atovaquone: 750 mg, Oral, BID ceFAZolin: 2 Gram, 100 mL, 200 mL/Hr, IV Piggyback, Q8HInt cyanocobalamin: 1,000 mcg, IntraMuscular, Daily dexAMETHasone: 10 mg, IV Push, Daily hydrOXYzine hydrochloride: 25 mg, Oral, At Bedtime, PRN: Sleep labetalol: 10 mg, IV Push, Q3H, PRN: Hypertension lactobacillus acidophilus: 1 Cap, Oral, Daily oxyCODONE: 5 mg, Oral, Q4H, PRN: Pain (Severe 7-10) remdesivir: 250 mL/Hr, IV Piggyback, [id number] rifAXIMin: 550 mg, Oral, BID Documented Medications Documented Aspirin Low Dose 81 mg oral delayed release tablet: 1 Tab, Oral, Daily, 0 Refill(s) Metoprolol Tartrate 50 mg oral tablet: 1 Tab, Oral, BID, 60 Tab, 0 Refill(s) Multiple Vitamins oral tablet: 1 Tab, Oral, Daily, 30 Tab, 0 Refill(s) QUEtiapine 300 mg oral tablet: 1 Tab, Oral, At Bedtime, 30 Tab, 0 Refill(s) Vitamin B12 1000 mcg oral tablet: 1 Tab, Oral, Daily, 30 Tab, 0 Refill(s) acetaminophen-HYDROcodone 325 mg-5 mg oral tablet: 1 Tab, Oral, BID, PRN: for pain, 0 Refill(s) atorvastatin 40 mg oral tablet: 1 Tab, Oral, At Bedtime, 0 Refill(s) furosemide 20 mg oral tablet: 1 Tab, Oral, EveryOtherDay, 0 Refill(s) hydrOXYzine pamoate 25 mg oral capsule: 1 Cap, Oral, At Bedtime, PRN: for anxiety/sleep, 40 Cap, 0 Refill(s) lisinopril 2.5 mg oral tablet: 1 Tab, Oral, Daily, 30 Tab, 0 Refill(s) lithium 300 mg oral capsule: 1 Cap, Oral, BID, 60 Cap, 0 Refill(s) pantoprazole 40 mg oral delayed release tablet: 1 Tab, Oral, Daily, 30 Tab, 0 Refill(s) polyethylene glycol 3350 oral powder for reconstitution: 17 Gram, Oral, Daily, 0 Refill(s) potassium chloride 10 mEq oral capsule, extended release: 1 Cap, Oral, Daily, 30 Cap, 0 Refill(s) Physical Examination VS/Measurements Vitals Signs (last 24 hrs) Last Charted Minimum Maximum Temp 99.0 (JUN 11 22:47) 97.4 (JUN 11 09:00) 99.0 (JUN 11 22:47) Apical HR H 123 (JUN 11 22:45) H 119 (JUN 11 13:08) H 129 (JUN 11 18:13) Mon HR 112 (JUN 11 23:24) 89 (JUN 11 22:32) 126 (JUN 11 22:47) Resp Rate 20 (JUN 11 23:24) 16 (JUN 11 08:48) 20 (JUN 11 22:32) SBP 133 (JUN 11 22:47) 115 (JUN 11 18:17) H 165 (JUN 11 05:00) DBP 70 (JUN 11 22:47) 70 (JUN 11 22:47) H 115 (JUN 11 08:48) MAP 82 (JUN 11 22:47) 82 (JUN 11 22:47) 136 (JUN 11 08:48) SpO2 98 (JUN 11 23:24) L 72 (JUN 11 05:00) 98 (JUN 11:32) General: No acute distress, On Optiflow . Eye: Pupils are equal, round and reactive to light, Normal conjunctiva. HENT: Normocephalic, Oral mucosa is moist. Neck: Supple, Non-tender. Respiratory: Lungs are clear to auscultation, Breath sounds are equal. Cardiovascular: Normal rate, Normal peripheral perfusion, Mild LE edema , tachycardia . Gastrointestinal: Soft, Non-tender, Normal bowel sounds. Musculoskeletal: No deformity. Integumentary: Warm, Dry. Neurologic: Alert, confused. Psychiatric: Cooperative. Review / Management Results review: Labs (Last four charted values) WBC 10.0 (MAY 13) 7.3 (MAY 12) 7.0 (MAY 12) 9.3 (MAY 11) HB L 10.7 (MAY 13) L 10.8 (MAY 12) L 11.0 (MAY 11) L 9.9 (OCT 10) HCT L 32.8 (MAY 13) 34.3 (OCT 12) 34.2 (OCT 11) L 30.3 (OCT 10) Plt 257 (MAY 13) 247 (OCT 12) 267 (OCT 12) 276 (OCT 11) Na H 148 (MAY 13) H 150 (MAY 12) H 149 (MAY 11) H 147 (OCT 10) K 3.8 (OCT 13) 3.7 (OCT 12) 3.8 (OCT 11) 3.6 (OCT 10) Cl H 119 (MAY 13) H 121 (MAY 12) H 120 (MAY 11) H 120 (OCT 10) CO2 L 20 (OCT 13) 21 (OCT 12) 22 (JUN 09) 21 (JUN 08) BUN H 49 (JUN 11) H 32 (MAY 12) 18 (JUN 09) 13 (JUN 08) Cr H 2.00 (MAY 13) H 1.50 (MAY 12) 1.00 (MAY 11) 0.60 (MAY 10) Glu R 100 (MAY 13) H 135 (MAY 12) H 115 (MAY 11) 106 (MAY 10) Ca 9.2 (JUN 11) 8.9 (JUN 10) 9.3 (JUN 09) 8.9 (JUN 08) Lactic 1.0 (JUN 07) PT 11.4 (JUN 08) 11.4 (JUN 07) 11.4 (JUN 07) INR 1.1 (JUN 08) 1.1 (JUN 07) 1.1 (JUN 07) PTT 23.2 (JUN 07) AST H 127 (JUN 11) H 128 (MAY 12) H 210 (JUN 09) H 420 (JUN 08) ALT H 67 (JUN 11) H 98 (JUN 10) H 143 (JUN 09) H 181 (JUN 08) ALK P 80 (JUN 11) 88 (MAY 12) 101 (JUN 09) 99 (JUN 08) T Bili 0.4 (JUN 11) 0.5 (JUN 10) 0.9 (JUN 09) 0.6 (JUN 08) PTN L 5.2 (JUN 11) L 5.4 (JUN 10) L 5.9 (JUN 09) L 5.6 (JUN 08) ALB L 2.1 (JUN 11) L 2.2 (JUN 10) L 2.4 (JUN 09) L 2.3 (JUN 08) Troponin C 2.020 (JUN 10) C 2.700 (JUN 08) C 1.220 (JUN 08) 0.039 (JUN 07) . Impression and Plan IMPRESSION -- Covid pneumonia -- Acute respiratory failure -- Pulmonary emboli -- Hypernatremia -- Ecoli uti -- Non Hodgkins Lymphoma -- Bipolar RECOMMENDATIONS -- Agree with remdesivir and dexamethasone -- Actemra 8mg/kg x 1 given the rapid progression of her respiratory failure -- IL-6 -- Cd4 count -- change ceftriaxone to cefazolin for it's renal excretion -- strongyloides ab -- Low threshold for covering for opportunistic pathogens -- Hypertension Discussed with Renee Monge who states that patient was much more alert on admission and clearly indicated a willingness for mechanical ventilation Reviewed situation at length with son 10/11 including her high risk of mechanical ventilation. We discussed Actemra, it's potential risks and EUA status He wished to proceed, saying that he wanted to do everything he could do to avoid the ventilator. He did not know if she had a living will but he will discuss with his sister. documented in this encounter Plan of Treatment Not on file documented as of this encounter Visit Diagnoses Not on filedocumented in this encounter
--- OUTSIDE RECORDS SUMMARY | 2025-03-08 13:14 | XMS_ITS | Encounter Summary ---
Author Organization [employer] ([place], [place], [place], [place]) Address [address] [place] [address] Care Team Providers Care Research Physiologist Name Role Phone Unavailable Primary Care Provider Unavailabl e Encounter Details Date Type Department Care Team (Late st Contact Info) Description 06/07/2021 Transcribed Document [facility] [place] [address] [place] [address] ProviderTg MD [address] [place] [address] Social History Tobacco Use Types Packs/Day Years Used Date Smoking Tobacco: Never Assessed Comments Unknown Sex and Gender Information Value Date Recorded Sex Assigned at Not on file Legal Sex Female 2:39 PM CDT Gender Identity Not on file Sexual Orientation Not on file documented as of this encounter Miscellaneous Notes * Cerner Conversion Note - Tg ProviderMD - 06/07/2021 10:50 AM CDT ED Triage Entered On: 06/07/2021 10:59 EDT Performed On: 06/07/2021 10:56 EDT by BALEDMAR LOBO RIBBER Triage Across the Room Chief Complaint : patient with general weakness and AMS sitting on couch since yesterday, covid positive person in home, patient incontinent of urine Triage Date/Time : 06/07/2021 10:56 EDT BALDEMAR LOBO RN - 06/07/2021 10:56 EDT DCP GENERIC CODE Tracking Acuity : 2 - Emergent Tracking Group : [facility] ED BALDEMAR LOBO RN - 06/07/2021 10:56 EDT Mode of Arrival : Stretcher Transported to ED by : Ambulance/ALS EMS Service : [facility] To Room Via : Stretcher Accompanied By : Unaccompanied ED Vital Signs : Document Height & Weight : Document ED Allergies : Document ED Reason for Visit : Document Tetanus Immunization : Less than 5 years BALDEMAR LOBO RN - 06/07/2021 10:56 EDT Infectious Disease History Does patient have symptoms of COVID-19? : Yes Has the Patient Been Tested for COVID-19 in the last 14 days? : No, Patient stated Does the Patient state known exposure to a COVID-19 positive case in the last 14 days? : Yes, under quarantine Patient Vaccinated for COVID-19 : Fully vaccinated BALDEMAR LOBO RN - 06/07/2021 10:56 EDT Infectious Disease Risk Screening Grid Cough < 2 wks of unknown origin : Yes Cough > 2 weeks : NO Blood in Sputum : NO Fever or self-reported Fever : NO Rash of unknown origin : NO Headache : NO Stiff neck : NO Night Sweats : NO Unexplained Weight Loss : NO Diarrhea (3 episode per day) : NO BALDEMAR LOBO RN - 06/07/2021 10:56 EDT Physical contact outside [place] in the last 30 days : No Hospitalized in Foreign Country : No Infectious Disease History : Chicken pox/Shingles, Influenza, Measles, Mumps, Scarlet fever, Pertussis (Whooping cough) INF Disease TB Screening Calc : 1 INF Disease Recent Travel Calc : 0 BALDEMAR LOBO RN - 06/07/2021 10:56 EDT Vital Signs ED Temperature Source : Axillary Temperature Mode : Fahrenheit Temperature, Fahrenheit : 99.6 Deg F ED Pain : No Clinical Temperature, C : 37.6 Deg C Oxygen Therapy Mode : Room air Peripheral Pulse Rate : 134 bpm (HI) Respiratory Rate : 22 Breaths/Min (HI) Systolic Blood Pressure : 142 mmHg (HI) Diastolic Blood Pressure : 98 mmHg (HI) Oxygen Saturation : 90 % (LOW) BALDEMAR LOBO RN - 06/07/2021 10:56 EDT Allergy (As Of: 06/07/2021 10:59:21 EDT) Allergies (Active) Anaprox Estimated Onset Date: Unspecified ; Reactions: Rash ; Created By: MANNY CHAVEZ RN; Reaction Status: Active ; Category: Drug ; Substance: Anaprox ; Type: Allergy ; Updated By: MANNY CHAVEZ RN; Reviewed Date: 06/07/2021 10:57 EDT codeine Estimated Onset Date: Unspecified ; Created By: CASEY WOOD RN; Reaction Status: Active ; Category: Drug ; Substance: codeine ; Type: Allergy ; Updated By: CASEY WOOD RN; Reviewed Date: 06/07/2021 10:57 EDT Latex Estimated Onset Date: Unspecified ; Reactions: Itching ; Created By: MANNY CHAVEZ RN; Reaction Status: Active ; Category: Other ; Substance: Latex ; Type: Allergy ; Updated By: MANNY CHAVEZ RN; Reviewed Date: 06/07/2021 10:57 EDT naproxen Estimated Onset Date: Unspecified ; Created By: CASEY WOOD RN; Reaction Status: Active ; Category: Drug ; Substance: naproxen ; Type: Allergy ; Updated By: CASEY WOOD RN; Reviewed Date: 06/07/2021 10:57 EDT Diagnosis Control ED (As Of: 06/07/2021 10:59:21 EDT) Problems(Active) At risk for sleep apnea (IMO :16564738 ) Name of Problem: At risk for sleep apnea ; Recorder: SYSTEM, SYSTEM; Confirmation: Confirmed ; Classification: Medical ; Code: [id number] ; Last Updated: 08/05/2018 12:59 EST ; Life Cycle Date: 08/05/2018 ; Life Cycle Status: Active ; Vocabulary: IMO Bipolar I disorder, current or most recent episode depressed, with psychotic features with catatonia (SNOMED CT :25275079 ) Name of Problem: Bipolar I disorder, current or most recent episode depressed, with psychotic features with catatonia ; Recorder: CASEY WOOD RN; Confirmation: Confirmed ; Classification: Patient Stated ; Code: [id number] ; Contributor System: PowerChart ; Last Updated: 08/12/2018 11:19 EST ; Life Cycle Date: 08/12/2018 ; Life Cycle Status: Active ; Vocabulary: SNOMED CT Concussion (SNOMED CT :3552237042 ) Name of Problem: Concussion ; Onset Date: 02/2016 ; Recorder: MANNY CHAVEZ RN; Confirmation: Confirmed ; Classification: Medical ; Code: 9006846510 ; Contributor System: PowerChart ; Last Updated: 04/05/2019 14:41 EDT ; Life Cycle Status: Active ; Vocabulary: SNOMED CT ; Comments: 04/05/2019 14:41 - Maryam Dacosta-CI concussion with loss of memory+ Depression (SNOMED CT :8920281972 ) Name of Problem: Depression ; Recorder: MANNY CHAVEZ RN; Confirmation: Confirmed ; Classification: Medical ; Code: [id number] ; Contributor System: TranSwitchChart ; Last Updated: 06/05/2016 14:00 EDT ; Life Cycle Date: 06/05/2016 ; Life Cycle Status: Active ; Vocabulary: SNOMED CT Fall (SNOMED CT :0595799 ) Name of Problem: Fall ; Onset Date: 02/2016 ; Recorder: MANNY CHAVEZ RN; Confirmation: Confirmed ; Classification: Medical ; Code: 1914326 ; Contributor System: PowerChart ; Last Updated: 06/05/2016 14:21 EDT ; Life Cycle Date: 06/05/2016 ; Life Cycle Status: Active ; Vocabulary: SNOMED CT H/O non-Hodgkin's lymphoma (SNOMED CT :5574519924 ) Name of Problem: H/O non-Hodgkin's lymphoma ; Recorder: BRENNA PULIDO RN; Confirmation: Confirmed ; Classification: Patient Stated ; Code: [id number] ; Contributor System: PowerChart ; Last Updated: 08/05/2018 12:49 EST ; Life Cycle Date: 08/05/2018 ; Life Cycle Status: Active ; Vocabulary: SNOMED CT Hip pain, right (SNOMED CT :3061790003 ) Name of Problem: Hip pain, right ; Recorder: MANNY CHAVEZ RN; Confirmation: Confirmed ; Classification: Medical ; Code: 3085271728 ; Contributor System: PowerChart ; Last Updated: 06/05/2016 14:01 EDT ; Life Cycle Date: 06/05/2016 ; Life Cycle Status: Active ; Vocabulary: SNOMED CT HTN (hypertension) (SNOMED CT :1702161804 ) Name of Problem: HTN (hypertension) ; Recorder: MANNY CHAVEZ RN; Confirmation: Confirmed ; Classification: Medical ; Code: 1412284184 ; Contributor System: TranSwitchChart ; Last Updated: 06/05/2016 14:00 EDT ; Life Cycle Date: 06/05/2016 ; Life Cycle Status: Active ; Vocabulary: SNOMED CT Insomnia (SNOMED CT :701855409 ) Name of Problem: Insomnia ; Recorder: MANNY CHAVEZ RN; Confirmation: Confirmed ; Classification: Medical ; Code: 789409317 ; Contributor System: PowerChart ; Last Updated: 06/05/2016 14:00 EDT ; Life Cycle Date: 06/05/2016 ; Life Cycle Status: Active ; Vocabulary: SNOMED CT Leg pain, right (SNOMED CT :201705094 ) Name of Problem: Leg pain, right ; Recorder: MANNY CHAVEZ RN; Confirmation: Confirmed ; Classification: Medical ; Code: 982968923 ; Contributor System: PowerChart ; Last Updated: 06/05/2016 14:01 EDT ; Life Cycle Date: 06/05/2016 ; Life Cycle Status: Active ; Vocabulary: SNOMED CT Numbness and tingling (SNOMED CT :2187089107 ) Name of Problem: Numbness and tingling ; Recorder: MANNY CHAVEZ RN; Confirmation: Confirmed ; Classification: Medical ; Code: 6349448225 ; Contributor System: PowerChart ; Last Updated: 04/05/2019 14:41 EDT ; Life Cycle Status: Active ; Vocabulary: SNOMED CT ; Comments: 04/05/2019 14:41 - Dacosta, Maryam-CI numbness and tingling right thigh area to toes Osteoarthritis (SNOMED CT :3701840626 ) Name of Problem: Osteoarthritis ; Recorder: MANNY CHAVEZ RN; Confirmation: Confirmed ; Classification: Medical ; Code: 9511034210 ; Contributor System: PowerChart ; Last Updated: 06/05/2016 14:03 EDT ; Life Cycle Date: 06/05/2016 ; Life Cycle Status: Active ; Vocabulary: SNOMED CT Pain (SNOMED CT :16773373 ) Name of Problem: Pain ; Recorder: MANNY CHAVEZ RN; Confirmation: Confirmed ; Classification: Medical ; Code: 11391438 ; Contributor System: PowerChart ; Last Updated: 04/05/2019 14:42 EDT ; Life Cycle Status: Active ; Vocabulary: SNOMED CT ; Comments: 04/05/2019 14:42 - Dacosta, Maryam-CI right buttocks pain sleep apnea (SNOMED CT :243411803 ) Name of Problem: sleep apnea ; Recorder: Amina Ordonez RN; Confirmation: Confirmed ; Classification: Medical ; Code: 149424334 ; Contributor System: BioStratum ; Last Updated: 05/20/2017 10:23 EDT ; Life Cycle Date: 06/12/2016 ; Life Cycle Status: Active ; Vocabulary: SNOMED CT Tremor (SNOMED CT :69900135 ) Name of Problem: Tremor ; Recorder: MANNY CHAVEZ RN; Confirmation: Confirmed ; Classification: Medical ; Code: 88173260 ; Contributor System: BioStratum ; Last Updated: 06/05/2016 14:17 EDT ; Life Cycle Date: 06/05/2016 ; Life Cycle Status: Active ; Vocabulary: SNOMED CT Diagnoses(Active) Altered mental status Date: 06/07/2021 ; Diagnosis Type: Reason For Visit ; Confirmation: Confirmed ; Clinical Dx: Altered mental status ; Classification: Medical ; Clinical Service: Emergency medicine ; Code: PNED ; Probability: 0 ; Diagnosis Code: [id number] ED Height and Weight Height Source : Stated Height Entry Format : [place] Height, Feet : 5 ft(Converted to: 152 cm, 60 Inch) Height, Inches : 2 Inch(Converted to: 0 ft 2 Inch, 5.08 cm) Clinical Height : 157.48 cm Weight Source, ED : Critical estimated dosing weight Weight Entry Format : [place] Weight, Pounds : 250 lb Clinical Dosing Weight : 113.64 kg Body Surface Area (BSA) : 2.1 m2 Body Mass Index : 45.8 kg/m2 (>HHI) [place] Body Weight (IBW) : 49.73 kg BALDEMAR LOBO RN - 06/07/2021 10:56 EDT documented in this encounter Plan of Treatment Not on file documented as of this encounter Visit Diagnoses Not on filedocumented in this encounter
--- OUTSIDE RECORDS SUMMARY | 2025-03-08 13:14 | XMS_ITS | Encounter Summary ---
Author Organization [facility] Address [address] [place] [address] Care Team Providers Care Architecture Department Chair Name Role Phone Dano Damian MD Primary Care Provider [phone] Trevor Chappell MD Primary Care Provider [phone] Encounter Details Date Type Department Care Team (Late st Contact Info) Description 07/22/2021 Lab Requisition [facility] [address] [place] [address] [place], [place] Toxic effect of other metals, accidental (unintentional), initial encounter Social History Tobacco Use Types Packs/Day Years Used Date Smoking Tobacco: Never Alcohol Use Standard Drinks/Week Comments No 0 (1 standard drink = 0.6 oz pur e alcohol) Comments Unknown Sex and Gender Information Value Date Recorded Sex Assigned at Not on file Legal Sex Female 7:50 PM EDT Gender Identity Not on file Sexual Orientation Not on file documented as of this encounter Plan of Treatment Not on file documented as of this encounter Procedures Procedure Name Priority Date/Time Associated Diagnosis Comments LITHIUM, SERUM Routine 07/22/2021 3:28 AM EST Toxic effect of other metals, accidental (unintentional), initial encounter documented in this encounter Results * (ABNORMAL) Corn[place]opia level (07/22/2021 3:28 AM EST) Cornucopia, Serum 2.8(HH) <0.1 mmol/L 07/22/2021 8:32 AM EST [facility] Blood Venous blood specimen / Unknown 07/22/2021 3:28 AM EST 07/22/2021 8:16 AM EST Narrative [facility] - 07/22/2021 8:32 AM EST Therapeutic Range: 0.6-1.2 mmol/L 12 hours after last dose. Dano Muniz LAB BLOOD ORDERABLES Final Resul t [facility] [address] [place] [address] documented in this encounter Visit Diagnoses Diagnosis Toxic effect of other metals, accidental (unintentional), initial encounter documented in this encounter Care Teams Architecture Department Chair Relationship Specialty Start Date End Date Dano Damian MD [address] [place] [address] PCP - General 01/10/21 06/09/23 Trevor Chappell MD [address] [facility] [place] [address] PCP - General 06/10/23 documented as of this encounter
--- OUTSIDE RECORDS SUMMARY | 2025-03-08 13:14 | XMS_ITS | Encounter Summary ---
Author Organization [employer] ([place], [place], [place], [place]) Address [address] [place] [address] Care Team Providers Care Condominium Property Manager Name Role Phone Unavailable Primary Care Provider Unavailabl e Encounter Details Date Type Department Care Team (Late st Contact Info) Description 06/07/2021 Transcribed Document [facility] [place] Family Medicine [address] [place] [address] ProviderTg MD [address] [place] [address] Social History Tobacco Use Types Packs/Day Years Used Date Smoking Tobacco: Never Assessed Comments Unknown Sex and Gender Information Value Date Recorded Sex Assigned at Not on file Legal Sex Female 2:39 PM CDT Gender Identity Not on file Sexual Orientation Not on file documented as of this encounter Miscellaneous Notes * Cerner Conversion Note - Tg ProviderMD - 06/07/2021 10:59 AM CDT Nutrition Assessment Entered On: 06/10/2021 9:20 EDT Performed On: 06/10/2021 14:45 EDT by Vickie Tan Diet Giving Officer Nutrition Assessment Current Nutrition Regimen Comment : 06/10: Consult for BMI >40. 75yo F admitted for sepsis d/t UTI + COVID pna. Pt has hx of non-Hodgkin's lymphoma, dementia, HTN. Pt on regular diet, no intakes documented. Attempted to call pt via telephone, no answer. Per RN, pt's appetite has declined significantly over the past 2 days. RN states pt was eating fine 2 days ago, only had bites yesterday, and has not had anything to eat today. RN states that she will get her try try supplements, but is not very optimistic, as it has been difficult to get the pt to drink enough water today. LBM 06/09. No UWL or significant skin breakdown reported. Excoriation present on buttocks. (06/10/21) Referral from [facility] d/t declining po intake over the past [address] to send supplements and monitor po intake. Dx: Sepsis d/t UTI and COVID+ PNA, acute resp failure, transaminitis, hypertensive urgency, A/C metabolic encephalopathy, NSTEMI PMH: Non-hodgkins lymphoma, dementia, HTN, depression, bipolar, osteoarthritis Labs: Na 150, Gluc 135, BUN 32, Crea 1.5, Alb 2.2, AST 128, Kirit 30 Meds: dexamethasone, lactobacillus, lithium, remdesivir, abx, D5W @ 50 ml/hr Skin: excoriation of buttocks, anasarca LBM: + (06/09) Diet: Regular PO Intake: minimal intake Ht: 5'2 Admit wt: 250# IBW: 110#/227% IBW BMI: 45.8 Adj wt: 145#/66 kg Estimated needs: 2123-9018 kcals (MSJX1.2-500) and 73+ grams protein (1.1 grams/kg/adjwt) Vickie Tan Diet Giving Officer - 06/10/2021 14:42 EDT Nutrition Assessment Reason : Automatic referral Vickie Tan Diet Giving Officer - 06/10/2021 9:20 EDT Nutrition Diagnoses Oral or Nutrition Support Intake : Inadequate oral intake Oral or Nutr Support Intake Related To : decreased appetite, COVID PNA Oral or Nutr Support Intake Evidenced by : poor intake X 2 days per RN Oral or Nutrition Support Intake Status : Active JACQUELYN CHERY RD, LD - 06/10/2021 14:42 EDT Nutrition Interventions Meals and Snacks : General/Healthful diet Nutrition Supplement Therapy : Commercial beverage JACQUELYN CHERY RD, ADRIENNE - 06/10/2021 14:42 EDT Monitoring/Evaluation Energy Intake : Total energy intake Food Intake : Amount of food Protein Intake : Total protein Weight Status : Weight Maintanence JACQUELYN CHERY RD, ADRIENNE - 06/10/2021 14:42 EDT Nutrition Recommendations Dietitian Recommendations : 1. Encourage po intake. RD to send Ensure Enlive TID. Goal: >50% meals/ONS 2. Monitor wt 1-2x weekly Goal: avoid significant unintended wt loss Nutrition risk: high JACQUELYN CHERY RD, LD - 06/10/2021 14:42 EDT documented in this encounter Plan of Treatment Not on file documented as of this encounter Visit Diagnoses Not on filedocumented in this encounter
--- OUTSIDE RECORDS SUMMARY | 2025-03-08 13:14 | XMS_ITS | Encounter Summary ---
Author Organization [employer] ([place], [place], [place], [place]) Address [address] [place] [address] Care Team Providers Care Sweeper Cleaner Industrial Name Role Phone Unavailable Primary Care Provider Unavailabl e Encounter Details Date Type Department Care Team (Late st Contact Info) Description 06/07/2021 Transcribed Document [facility] [place] Family Medicine [address] [place] [address] ProviderTg MD [address] [place], [place] [id number] Social History Tobacco Use Types Packs/Day Years Used Date Smoking Tobacco: Never Assessed Comments Unknown Sex and Gender Information Value Date Recorded Sex Assigned at Not on file Legal Sex Female 2:39 PM CDT Gender Identity Not on file Sexual Orientation Not on file documented as of this encounter Miscellaneous Notes * Cerner Conversion Note - Tg ProviderMD - 06/07/2021 10:50 AM CDT [place] Suicide Severity Rating Scale (C-SSRS) Entered On: 06/07/2021 11:32 EDT Performed On: 06/07/2021 11:28 EDT by BALDEMAR LOBO RN [place] Suicide Severity Rating Scale (C-SSRS) CSSRS Past Month Wish to be : No CSSRS Past Month Suicidal Thoughts : No CSSRS Lifetime Suicide Behavior : No Suicide Severity Rating Score : 0 Suicide Severity Rating : No Additional Care Required at this time BALDEMAR LOBO RN - 06/07/2021 11:28 EDT documented in this encounter Plan of Treatment Not on file documented as of this encounter Visit Diagnoses Not on filedocumented in this encounter
--- OUTSIDE RECORDS SUMMARY | 2025-03-08 13:14 | XMS_ITS | Encounter Summary ---
Author Organization [employer] ([place], [place], [place], [place]) Address [address] [place] [address] Care Team Providers Care Front Edger Name Role Phone Unavailable Primary Care Provider Unavailabl e Encounter Details Date Type Department Care Team (Late st Contact Info) Description 06/10/2021 Transcribed Document [facility] [place] [address] [place] [address] ProviderTg MD [address] [place] [address] Social History Tobacco Use Types Packs/Day Years Used Date Smoking Tobacco: Never Assessed Comments Unknown Sex and Gender Information Value Date Recorded Sex Assigned at Not on file Legal Sex Female 2:39 PM CDT Gender Identity Not on file Sexual Orientation Not on file documented as of this encounter Miscellaneous Notes * Cerner Conversion Note - Tg ProviderMD - 06/10/2021 6:50 AM CDT Rapid Response Team Documentation Entered On: 06/12/2021 7:27 EDT Performed On: 06/10/2021 6:50 EDT by HOWIE KILLIAN RN Rapid Response Event Time Rapid Response Team Called : 06/12/2021 6:50 EDT Rapid Response Team Event End Time : 06/12/2021 6:55 EDT Rapid Response Event Intiated By : Hospital Staff Rapid Response Team Initiation Reason : Nurse concern Rapid Response Event Location Type : Other: 583 Rapid Response Team Initiation Reason Details : primary nurse called about increased restlessness. Rapid Response Admission Diagnosis : Altered mental status Sepsis, unspecified organism Urinary tract infection, site not specified Urinary tract infection, site not specified Urinary tract infection, site not specified Rapid Response Medical Background : At risk for sleep apnea (Medical) Bipolar I disorder, current or most recent episode depressed, with psychotic features with catatonia (Patient Stated) Concussion (Medical) Depression (Medical) Disease caused by 2019 novel coronavirus (Medical) Fall (Medical) H/O non-Hodgkin's lymphoma (Patient Stated) HTN (hypertension) (Medical) Hip pain, right (Medical) Insomnia (Medical) Leg pain, right (Medical) Numbness and tingling (Medical) Osteoarthritis (Medical) Pain (Medical) Tremor (Medical) sleep apnea (Medical) Rapid Response Allergies : Substance Category Reactions Severity Anaprox Drug Rash codeine Drug Latex Other Itching naproxen Drug Rapid Response Recent Vital Signs : 06/12/2021 05:53 Systolic Blood Pressure 137 06/12/2021 05:53 Diastolic Blood Pressure 97 06/12/2021 05:53 Heart Rate Monitored 121 06/12/2021 05:53 Heart Rate, Apical 125 06/12/2021 05:53 Respiratory Rate 20 06/12/2021 05:53 Temperature, Fahrenheit 97.3 06/12/2021 05:53 Oxygen Saturation 92 Rapid Response Recent Lab Results : 06/12/2021 05:55 Sodium Level 145 (136-146) 06/12/2021 05:55 Potassium Level 3.8 (3.5-5.1) 06/11/2021 02:45 Calcium Ionized 1.17 (1.12-1.32) 06/12/2021 05:55 Calcium Level 8.9 (8.4-10.1) 06/12/2021 05:55 Magnesium Level HI 2.7 (1.5-2.4) 06/07/2021 11:25 eAVG Glucose NA 114 06/11/2021 10:23 Glucose POC2 108 (70-110) 06/12/2021 05:55 Chloride Level HI 114 (102-112) 06/12/2021 05:55 Carbon Dioxide Level LOW 20 (21-32) 06/12/2021 05:55 Blood Urea Nitrogen HI 58 (7-22) 06/12/2021 05:55 Creatinine Level HI 2.00 (0.55-1.02) 06/08/2021 04:00 PT 11.4 (9.2-12.0) 06/08/2021 04:00 INR 1.1 (0.9-1.2) 06/07/2021 11:25 PTT 23.2 (22.0-33.0) 06/07/2021 11:25 Hgb A1C NA 5.6 06/12/2021 05:55 Hgb LOW 11.1 (11.2-15.7) 06/12/2021 05:55 Hct LOW 34.0 (34.1-44.9) 06/12/2021 05:55 RBC LOW 3.35 (3.93-5.22) 06/12/2021 05:55 WBC HI 13.4 (4.5-10.5) 06/12/2021 05:55 Platelet Count 275 (163-369) 06/07/2021 11:25 Lactic Acid Level 1.0 (0.4-2.0) 06/12/2021 05:55 Troponin I Ultra CRIT 0.845 (0.015-0.045) 06/11/2021 07:30 pH Art HI 7.50 (7.35-7.45) 06/11/2021 07:30 pCO2 Art LOW 27.7 (35.0-45.0) 06/11/2021 07:30 pO2 Art LOW 66.1 (80.0-100.0) 06/11/2021 07:30 HCO3 Art 21.6 (20.0-26.0) 06/11/2021 07:30 BE Art -.8 (-2.0-2.0) 06/11/2021 07:30 sO2 Art LOW 93.7 (95.0-100.0) Weight/BMI : Clinical Weight/BMI CLINICALWEIGHT: 113.64 kg (06/07/21 13:05:00) CLINICALWEIGHT: 113.64 kg (06/07/21 10:56:00) Body Mass Index: 45.8 kg/m2 Critical (06/07/21 13:05:00) Body Mass Index: 45.8 kg/m2 Critical (06/07/21 10:56:00) Code Status Pre Event : Full Code Code Status Post Event : Full Code Rapid Response Team Recommendation/Response : Primary nurse called for increased restlessness. patient had slept some during night. Not attempting to pull IVs or oxygen. Only speaks few wounds but said pain or pointed to abd. O2 sats 96%. Vitals stable. patient without pain meds or tylenol ordered. Also suggested to check for incontinence. Otherwise primary nurse noted no other changes. patient with baseline dementia. Advised primary nurse to call provider for tylenol and give her assessment to him for other orders if he deems warranted. If she feels condition changes or requires POULTRY RAISER call activate official call. Also advised to use charge nurse as resource. Patient Disposition Post Event : No change in location/level of care Rapid Response Front Edger #1 : HOWIE KILLIAN V, RN HOWIE KILLIAN V RN - 06/12/2021 7:21 EDT documented in this encounter Plan of Treatment Not on file documented as of this encounter Visit Diagnoses Not on filedocumented in this encounter
--- OUTSIDE RECORDS SUMMARY | 2025-03-08 13:14 | XMS_ITS | Encounter Summary ---
Author Organization [employer] ([place], [place], [place], [place]) Address [address] [place] [address] Care Team Providers Care Seed Collector Name Role Phone Unavailable Primary Care Provider Unavailabl e Encounter Details Date Type Department Care Team (Late st Contact Info) Description 06/07/2021 Transcribed Document [facility] [place] Family Medicine [address] [place] [address] ProviderTg MD [address] [place], [place] [id number] Social History Tobacco Use Types Packs/Day Years Used Date Smoking Tobacco: Never Assessed Comments Unknown Sex and Gender Information Value Date Recorded Sex Assigned at Not on file Legal Sex Female 2:39 PM CDT Gender Identity Not on file Sexual Orientation Not on file documented as of this encounter Miscellaneous Notes * Cerner Conversion Note - Tg ProviderMD - 06/07/2021 10:50 AM CDT Broset Violence Assessment Entered On: 06/07/2021 11:31 EDT Performed On: 06/07/2021 11:28 EDT by BALDEMAR LOBO RN Broset Violence Assessment Broset Violence Checklist of Symptoms : None Broset Violence Symptoms Subtotal : 0 Broset Violence Symptoms Indicator : Low risk (0) Broset Interventions : [place] precautions for safety used BALDEMAR LOBO RN - 06/07/2021 11:28 EDT documented in this encounter Plan of Treatment Not on file documented as of this encounter Visit Diagnoses Not on filedocumented in this encounter
--- OUTSIDE RECORDS SUMMARY | 2025-03-08 13:14 | XMS_ITS | Encounter Summary ---
Author Organization [employer] ([place], [place], [place], [place]) Address [address] [place] [address] Care Team Providers Care Child Care Assistant Name Role Phone Unavailable Primary Care Provider Unavailabl e Encounter Details Date Type Department Care Team (Late st Contact Info) Description 06/10/2021 Transcribed Document [facility] [place] Family Medicine [address] [place] [address] ProviderTg MD [address] [place] [address] Social History Tobacco Use Types Packs/Day Years Used Date Smoking Tobacco: Never Assessed Comments Unknown Sex and Gender Information Value Date Recorded Sex Assigned at Not on file Legal Sex Female 2:39 PM CDT Gender Identity Not on file Sexual Orientation Not on file documented as of this encounter Miscellaneous Notes * Cerner Conversion Note - Tg Jones MD - 06/10/2021 4:33 PM CDT Pain Assessment Entered On: 06/17/2021 6:35 EDT Performed On: 06/16/2021 23:39 EDT by Ran Chew RN-PATIENT CARE BEDSIDE NON-EXEMPT Intervention Information: oxyCODONE Performed by Ran Chew RN-PATIENT CARE BEDSIDE NON-EXEMPT on 06/16/2021 22:39:00 EDT oxyCODONE,5mg Oral,Pain (Severe 7-10) Pain Assessment Pain Assessment : Follow-up assessment Pain Scale Goal : 0 Pain Scale Used : 0-10 Scale Pain Improved by Intervention : Yes Ran Chew RN-PATIENT CARE BEDSIDE NON-EXEMPT - 06/17/2021 6:35 EDT Pain Scale Intensity : 3 Ran Chew RN-PATIENT CARE BEDSIDE NON-EXEMPT - 06/17/2021 6:35 EDT Image 4 - Images currently included in the form version of this document have not been included in the text rendition version of the form. documented in this encounter Plan of Treatment Not on file documented as of this encounter Visit Diagnoses Not on filedocumented in this encounter
--- OUTSIDE RECORDS SUMMARY | 2025-03-08 13:14 | XMS_ITS | Encounter Summary ---
Author Organization [employer] ([place], [place], [place], [place]) Address [address] [place] [address] Care Team Providers Care Coding Consultant Name Role Phone Unavailable Primary Care Provider Unavailabl e Encounter Details Date Type Department Care Team (Late st Contact Info) Description 06/10/2021 Transcribed Document [facility] [place] Family Medicine [address] [place] [address] ProviderTg MD [address] [place] [address] Social History Tobacco Use Types Packs/Day Years Used Date Smoking Tobacco: Never Assessed Comments Unknown Sex and Gender Information Value Date Recorded Sex Assigned at Not on file Legal Sex Female 2:39 PM CDT Gender Identity Not on file Sexual Orientation Not on file documented as of this encounter Miscellaneous Notes * Cerner Conversion Note - Tg ProviderMD - 06/10/2021 10:22 AM CDT On Going Discharge Planning Entered On: 06/10/2021 10:25 EDT Performed On: 06/10/2021 10:22 EDT by Patsy Koehler V Ethnology Teacher Drew Care Management Progress Note Discharge Arrangements : Patient Post-Acute Information Patient Name: SUDHA SOLORZANO Gender: Female : [birth year] Age: 75 Years No Post-Acute Placement(s) Listed No Post-Acute Service(s) Listed No Curaspan Referral(s) Listed Discharge Options Discussed with Patient : DME, Home Health, Short term rehabilitation Barriers to Discharge Identified : Clinical Condition of Patient Patient Discharge Goal : [facility] facility List/Info Provided Pt/Fam/Support Person : Inpatient rehabilitation facility, [facility] facilities Is the Patient Meeting Medical Necessity : Yes Did you Attend Multidisciplinary Rounds? : Yes Patsy Koehler Social Worker Measurement Department Chief Clerk - 06/10/2021 10:22 EDT Narrative Progress Note Narrative Progress Note : HD#3, ELOS-not recorded, RSR-moderate, Boost-4 Per MD, patient is clinical deconditioning from NC to optiflow at 60% Fi02 with increased confusion. ID, Cardiology and Pulm consulted. HIGH RISK FOR INTUBATION. Patient had a abnormal ECHO with PE. On IV cefazolin and IV steroids. CM sent referrals to [facility] and [place] due to being COVID+ for rehab. CM to follow. Historical Progress Note : HD#2, ELOS-not recorded, RSR-moderate, Boost-4 CM sent rehab referrals to [facility] and [place] [facility] since they accept COVID+ patients. Currently patient is on 60% Fi02. PEr MD, patient's respiratory status is worsening. CM to follow pt's progress for dc planning. Patsy Koehler V Ethnology Teacher Measurement Department Chief Clerk - 06/09/21 16:10:00 Patsy Koehler V Ethnology Teacher Measurement Department Chief Clerk - 06/10/2021 10:22 EDT documented in this encounter Plan of Treatment Not on file documented as of this encounter Visit Diagnoses Not on filedocumented in this encounter
--- OUTSIDE RECORDS SUMMARY | 2025-03-08 13:14 | XMS_ITS | Encounter Summary ---
Author Organization [employer] ([place], [place], [place], [place]) Address [address] [place] [address] Care Team Providers Care Pressure Steamer Tender Name Role Phone Unavailable Primary Care Provider Unavailabl e Encounter Details Date Type Department Care Team (Late st Contact Info) Description 06/07/2021 Transcribed Document [facility] [place] [address] [place] [address] ProviderTg MD [address] [place] [address] Social History Tobacco Use Types [...] ProviderMD - 06/07/2021 10:50 AM CDT ED Assessment Entered On: 06/07/2021 11:31 EDT Performed On: 06/07/2021 11:28 EDT by BALDEMAR LOBO RN ED Quick Look Assessment Level of Consciousness : Awake Affect/Behavior : Calm, Cooperative Orientation : Not oriented to situation, Not oriented to time Skin Color : Other: normal Skin Temperature : Warm Skin Description : Dry BALDEMAR LOBO RN - 06/07/2021 11:28 EDT ED General-Functional Assess Information Obtained From : Patient Communication Barrier : None Primary Language : Cambodian Any Spiritual/Cultural Needs or Requests : No Currently in Unsafe Situation : No BALDEMAR LOBO RN - 06/07/2021 11:28 EDT Social Habits Smoking Status : Never (less than 100 in lifetime; none in last 30 days) Smokeless Tobacco Status : Never Desires Tobacco Cessation Calc : 0 BALDEMAR LOBO RN - 06/07/2021 11:28 EDT Social History (As Of: 06/07/2021 11:31:44 EDT) Tobacco: Smoking Status Never smoker. Second Hand Smoke Exposure: Yes. (Last Updated: 06/05/2016 13:52:39 EDT by MANNY CHAVEZ, RN) Alcohol: Alcohol Use History No. (Last Updated: 06/05/2016 13:52:48 EDT by MANNY CHAVEZ, RN) Substance Abuse: Drug Use Hx: No. Use in Last 12 Months: No. (Last Updated: 06/05/2016 13:52:55 EDT by MANNY CHAVEZ, RN) Nutrition/Health: Regular, Caffeine intake amount: Coffee, soda daily. (Last Updated: 06/05/2016 13:53:22 EDT by MANNY CHAVEZ, RN) Home/Environment: Lives with 94 y/o father. Living situation: Home/Independent. Home equipment: Walker/Cane, shower chair. Alcohol abuse in household: No. Substance abuse in household: No. Smoker in household: No. Injuries/Abuse/Neglect in household: No. Feels unsafe at home: No. Family/Friends available for support: Yes. (Last Updated: 06/05/2016 13:54:27 EDT by MANNY CHAVEZ, RN) Employment/School: Retired, Previous employment/school: [employer]. (Last Updated: 06/05/2016 13:55:00 EDT by MANNY CHAVEZ, RN) Cardiovascular ASMT, ED Cardiovascular Assessment WDL : WDL with exceptions (Comment: tachy hr in the 130s [BALDEMAR LOBO RN - 06/07/2021 11:28 EDT] ) BALDEMAR LOBO RN - 06/07/2021 11:28 EDT Respiratory Respiratory Assessment WDL : WDL with exceptions (Comment: person in home has covid, patient is soa with exertion and o2 sat 90% on RA, lungs dim [BALDEMAR LOBO RN - 06/07/2021 11:28 EDT] ) BALDEMAR LOBO RN - 06/07/2021 11:28 EDT Oxygen Therapy Oxygen Therapy Mode : Nasal cannula Oxygen Titrated : Yes Oxygen Flow Rate : 2 Liter/Min BALDEMAR LOBO RN - 06/07/2021 11:28 EDT Genitourinary Assessment, ED Genitourinary Assessment WDL : WDLachelle with exceptions (Comment: incontinent of urine, patient's urine has a foul odor [BALDEMAR LOBO RN - 06/07/2021 11:28 EDT] ) BALDEMAR LOBO RN - 06/07/2021 11:28 EDT Musculoskeletal Musculoskeletal Assessment WDL : WDLachelle with exceptions Musculoskeletal Assessment Comment : general weakness BALDEMAR LOBO RN - 06/07/2021 11:28 EDT Integumentary Assessment Integumentary Assessment WDL : WDL BALDEMAR LOBO RN - 06/07/2021 11:28 EDT Neurologic ASMT, ED Neurologic Assessment WDL : AUGUSTO with exceptions (Comment: family reports AMS, patient a&o to person and place, updated to situation and time [BALDEMAR LOBO RN - 06/07/2021 11:28 EDT] ) BALDEMAR LOBO RN - 06/07/2021 11:28 EDT Pain Assessment Pain Assessment : Initial assessment Pain Scale Used : 0-10 Scale BALDEMAR LOBO RN - 06/07/2021 11:28 EDT Pain Scale Intensity : 0 BALDEMAR LOBO RN - 06/07/2021 11:28 EDT Image 4 - Images currently included in the form version of this document have not been included in the text rendition version of the form. documented in this encounter Plan of Treatment Not on file documented as of this encounter Visit Diagnoses Not on filedocumented in this encounter
--- OUTSIDE RECORDS SUMMARY | 2025-03-08 13:14 | XMS_ITS | Encounter Summary ---
Author Organization [employer] ([place], [place], [place], [place]) Address [address] [place] [address] Care Team Providers Care Fretted Instrument Maker Hand Name Role Phone Unavailable Primary Care Provider Unavailabl e Encounter Details Date Type Department Care Team (Late st Contact Info) Description 06/11/2021 Transcribed Document [facility] [place] [address] [place] [address] ProviderTg MD [address] [place] [address] Social History Tobacco Use Types Packs/Day Years Used Date Smoking Tobacco: Never Assessed Comments Unknown Sex and Gender Information Value Date Recorded Sex Assigned at Not on file Legal Sex Female 2:39 PM CDT Gender Identity Not on file Sexual Orientation Not on file documented as of this encounter Miscellaneous Notes * Cerner Conversion Note - Tg ProviderMD - 06/11/2021 9:57 AM CDT On Going Discharge Planning Entered On: 06/11/2021 10:00 EDT Performed On: 06/11/2021 9:57 EDT by Patsy Koehler Social Worker Drew Care Management Progress Note Discharge Arrangements : Patient Post-Acute Information Patient Name: SUDHA SOLORZANO Gender: Female : 49 Age: 75 Years No Post-Acute Placement(s) Listed No Post-Acute Service(s) Listed No Curaspan Referral(s) Listed Discharge Options Discussed with Patient : DME, Home Health, Short term rehabilitation Barriers to Discharge Identified : Clinical Condition of Patient Patient Discharge Goal : long term facility List/Info Provided Pt/Fam/Support Person : Inpatient rehabilitation facility, long term facilities Is the Patient Meeting Medical Necessity : Yes Did you Attend Multidisciplinary Rounds? : Yes Patsy Koehler Social Worker Military Technology Manager - 06/11/2021 9:57 EDT Narrative Progress Note Narrative Progress Note : HD#4, ELOS-5 RSR-moderate, Boost-5 COVID+. Patient currently on optiflow FiO2 60%, with continued increased confusion and fidgeting in the bed. ID and Pulm consulted and are making med adjustments. Right small PE. On IV abx. Per RN, patient with tachycardia the other night. Now has mittens. Not eating or drinking per RN. DCP-[facility] pending medical progress. Patient lives with her 98 yo father and adult son. Patsy Koehler V Biomass Technician Military Technology Manager - 06/11/2021 12:08 EDT Historical Progress Note : HD#3, ELOS-not recorded, RSR-moderate, Boost-4 Per MD, patient is clinical deconditioning from NC to optiflow at 60% Fi02 with increased confusion. ID, Cardiology and Pulm consulted. HIGH RISK FOR INTUBATION. Patient had a abnormal ECHO with PE. On IV cefazolin and IV steroids. CM sent referrals to [facility] and [place] due to being COVID+ for rehab. CM to follow. Patsy Koehler Social Worker Military Technology Manager - 06/10/21 10:25:43 HD#2, ELOS-not recorded, RSR-moderate, Boost-4 CM sent rehab referrals to [facility] and [place] [facility] since they accept COVID+ patients. Currently patient is on 60% Fi02. PEr MD, patient's respiratory status is worsening. CM to follow pt's progress for dc planning. Patsy Koehler Social Worker Military Technology Manager - 06/09/21 16:10:00 Patsy Koehler V Biomass Technician Military Technology Manager - 06/11/2021 9:57 EDT documented in this encounter Plan of Treatment Not on file documented as of this encounter Visit Diagnoses Not on filedocumented in this encounter
--- OUTSIDE RECORDS SUMMARY | 2025-03-08 13:14 | XMS_ITS | Encounter Summary ---
Author Organization [employer] ([place], [place], [place], [place]) Address [address] [place] [address] Care Team Providers Care Agronomy Location Manager Name Role Phone Unavailable Primary Care Provider Unavailabl e Encounter Details Date Type Department Care Team (Late st Contact Info) Description 06/07/2021 Transcribed Document [facility] [place] Family Medicine [address] [place] [address] ProviderTg MD [address] [place] [address] Social History Tobacco Use Types Packs/Day Years Used Date Smoking Tobacco: Never Assessed Comments Unknown Sex and Gender Information Value Date Recorded Sex Assigned at Not on file Legal Sex Female 2:39 PM CDT Gender Identity Not on file Sexual Orientation Not on file documented as of this encounter Miscellaneous Notes * Cerner Conversion Note - Tg Jones MD - 06/07/2021 1:10 PM CDT Patient: SUDHA TIMMONS Age: 75 Years Sex: Female : 1945 Chief Complaint patient with general weakness and AMS sitting on couch since yesterday, covid positive person in home, patient incontinent of urine Primary Care Provider SAMSON MARTÍNEZ MD-ONC History of Present Illness Ms. Timmons is a pleasant 75 y/o WF with PMH of non-hodkins lymphoma, dementia, HTN who presents with lethargy and dysuria. Patient reports her 98 year old father with whom she lives tested positive for covid and she believes she has it too. She also endorses having dysuria and feeling malaise for the last week. Patient denies having fever/chills, SOA, cough, chest pain, palpitations, n/v/d, and abdominal pain. Upon arrival to our facility patient is hemodynamically stable though tachycardic heart rate in 120s consistent with sinus tachycardia, temperature 102 ??F, BP elevated continue to elevate to 180/100 which improved with IV Lopressor, inc RR in 20's, O2 saturation 89% on room air. Significant labs show transaminitis AST 347, ALT 134, ammonia 33, potassium 3.2, normal WBC and lactic acid, hemoglobin 10.4, UA consistent with UTI with positive leukoesterase and nitrate with urine culture pending, acetaminophen/alcohol/ salicylate levels NEG, UDS neg, COVID POSITIVE. Patient is being admitted for sepsis due to UTI and COVID-19 pneumonia. Review of Systems Constitutional: [+fevers, no chills, sweats] Eye: [No recent visual problems, eye discharge, eye pain, redness] HEENT: [No ear pain, nasal congestion, sore throat, voice changes] Respiratory: [No shortness of breath, cough, pain on breathing, sputum production] Cardiovascular: [No Chest pain, palpitations, syncope, shortness of breath while laying flat] Gastrointestinal: [No nausea, vomiting, diarrhea, constipation] Genitourinary: [No hematuria, + dysuria, +chronic urine incontinence] Keith/Lymph: [Negative for bruising tendency, swollen lymph glands, nosebleeds, history of anticoagulation] Endocrine: [Negative for excessive thirst, excessive hunger, excessive urination, heat or cold intolerance] Musculoskeletal: [No back pain, neck pain, joint pain, muscle pain, decreased range of motion] Integumentary: [No rash, pruritus, abrasions] Neurologic: [No weakness, numbness, frequent headaches, tremors] Psychiatric: [No anxiety, depression, mood changes] Vital Signs T: 38.9 ??C TMIN: 37.6 ??C TMAX: 38.9 ??C HR: 128(Monitored) RR: 32 BP: 177/93 SpO2: 90% HT: 157.48 cm WT: 113.64 kg BMI: 45.8 Oxygen Settings (Last) Oxygen Therapy Mode: Nasal cannula (06/07/21 11:34:00) Oxygen Flow Rate: 2 Liter/Min (06/07/21 11:34:00) Physical Exam General: [Alert and oriented, well nourished, no acute distress]. Neurologic: [Awake, alert, and oriented, no focal neurological deficits moving arms and legs in bed equally]. Eye: [Normal conjunctiva]. HENT: [Normocephalic, normal hearing, moist oral mucosa, no scleral icterus]. Neck: [Supple, no JVD]. Lungs: [Clear to auscultation, non-labored respiration]. Heart: [Normal rate, regular rhythm, no murmur, 2+ pitting LE edema bilaterally]. Abdomen: [Soft, non-tender, non-distended, normal bowel sounds]. Musculoskeletal: [Patient laying in bed without ROM tested]. Skin: [Skin is warm, dry and brown, no rashes]. Psychiatric: [Cooperative, appropriate mood and affect]. Assessment/Plan Sepsis due to UTI and COVID-19 pneumonia, POA -Fever 102, heart rate 120s, increased respiratory rate, source UTI and pneumonia -Received IVF bolus per sepsis protocol -Blood cultures collected -Follow urine culture -Continue Rocephin and doxy, PRN Tylenol Acute hypoxic respiratory failure due to COVID-19 pneumonia, POA -Continuous oxygen monitoring -Precautions in place -Continue dexamethasone, remdesivir, inhaler, empiric antibiotics Rocephin and doxycycline, trend inflammatory markers Transaminitis -Acetaminophen alcohol level negative -Likely due to COVID-19, patient denies alcohol use -RUQ US pending -Will allow low dose PRN Tylenol for temp > 101 degrees F -Hold statin Hypertensive urgency -Resumed home meds Metoprolol 50 bid and Lisinopril -PRN hydralazine and clonidine Acute on chronic metabolic encephalopathy -CT hea neg -Ammonia 33, lactulose started -Alert and oriented upon my evaluation, no focal neurological deficits -Per nursing patient has hx of baseline dementia, 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 Morbid obesity: BMI 45.8, complicates all aspects of care and resp failure with suspected OHS component Hx of non-Hodgkin's lymphoma DVT ppx: Lovenox 40 q12h FULL CODE, son is next of kin DISPO: Follow urine culture. Hope to discharge in 2-3 days pending clinical course and resp status. Time spent: 60 minutes. IDesi PA-C, personally evaluated the patient forming the plan of care above. Dr. Marielle Sommer available to answer patient plan of care questions and evaluate the patient if needed. VTE Prophylaxis - Medical Lovenox 40 q12h Problem List/Past Medical History Ongoing At risk for sleep apnea Bipolar I disorder, current or most recent episode depressed, with psychotic features with catatonia Concussion Depression Fall H/O non-Hodgkin's lymphoma Hip pain, right HTN (hypertension) Insomnia Leg pain, right Numbness and tingling Osteoarthritis sleep apnea Tremor Procedure/Surgical History heart cath (2007), bilateral breast reduction (1992), DAIJA (1983), tubal (1971), cataract ext / IOL OU, Power port placement, sciatic nerve surgery, x 2. Home Medications (14) Active aspirin 81 mg oral delayed release tablet 81 mg = 1 Tab, Oral, Daily atorvastatin 40 mg oral tablet 40 mg = 1 Tab, Oral, At Bedtime Cogentin 1 mg, Oral, At Bedtime diphenhydrAMINE 25 mg oral capsule 25 mg = 1 Cap, PRN, Oral, TID escitalopram 20 mg oral tablet 20 mg = 1 Tab, Oral, Daily furosemide 20 mg oral tablet 20 mg = 1 Tab, Oral, Daily lamoTRIgine 200 mg oral tablet 200 mg = 1 Tab, Oral, Daily lisinopril 5 mg oral tablet 2.5 mg = 0.5 Tab, Oral, Daily Metoprolol Tartrate 50 mg oral tablet 50 mg = 1 Tab, Oral, BID Non Formulary Medication 1 Tab, Oral, Daily potassium chloride 10 mEq oral capsule, extended release 10 mEq = 1 Cap, Oral, BID PriLOSEC 20 mg oral delayed release capsule 20 mg = 1 Cap, Oral, Daily SEROquel 100 mg oral tablet 300 mg = 3 Tab, Oral, At Bedtime Tylenol Extra Strength 500 mg oral tablet 500 mg = 1 Tab, PRN, Oral, Q4H Allergies Anaprox (Rash) Latex (Itching) codeine naproxen Social History Alcohol Alcohol Use History No. Employment/School Retired, Previous employment/school: [employer]. Home/Environment Lives with 94 y/o father. Living situation: Home/Independent. Home equipment: Walker/Cane, shower chair. Alcohol abuse in household: No. Substance abuse in household: No. Smoker in household: No. Injuries/Abuse/Neglect in household: No. Feels unsafe at home: No. Family/Friends available for support: Yes. Nutrition/Health Regular, Caffeine intake amount: Coffee, soda daily. Substance Abuse Drug Use Hx: No. Use in Last 12 Months: No. Tobacco Smoking Status Never smoker. Second Hand Smoke Exposure: Yes. Family History Father: Living, with covid, otherwise healthy. Mother: in 70's of unknown cause to patient. Diagnostic Results Radiology Results (Last 48 hours) [id number] -- 06/07/2021 12:36 CR Chest 1 Vw Portable (06/07/2021 11:38) Result: PORTABLE CHEST 06/07/2021 10:54 AM HISTORY: Altered mental status.COMPARISON: 08/12/2018.FINDINGS: The heart is normal in size . Left-sided chest port isstable. There are bilateral pulmonary opacities concerning forpneumonia. There is no pneumothorax . The osseous structures areunremarkable .IMPRESSION: Bilateral pulmonary opacities concerning for pneumonia.Images reviewed, interpreted, and dictated by Dr. Jacquie Clemente.Transcribed by Aftab Wilson PA-C.I have personally viewed, interpreted and dictated the examination. Ihave read and agree with the above final transcribed report. CT Head WO (06/07/2021 12:09) Result: CT SCAN OF THE HEAD WITHOUT CONTRASTINDICATION: Altered mental status. History of non-Hodgkin's lymphoma.TECHNIQUE: Multiple axial CT images were performed from the foramenmagnum to the vertex without contrast. Coronal reconstruction imageswere obtained from the axial data. This study was performed withtechniques to keep radiation doses as low as reasonably achievable(ALARA). Individualized dose reduction techniques using automatedexposure control or adjustment of mA and/or KV according to the patientsize were employed.COMPARISON: None.FINDINGS: There is no mass effect or midline shift. The ventricles aresymmetric in size and configuration. There is no hydrocephalus. Thereare no extra-axial fluid collections. There is no intraventricular orintraparenchymal hemorrhage. The posterior fossa has a normal CTappearance. No acute soft tissue abnormality is identified. No acuteosseous abnormalities are present.IMPRESSION: No acute intracranial abnormality. Consider MR ifsymptomatology persists.Images reviewed, interpreted, and dictated by Jacquie Clemente MD Lab Results Test Name Test Result Date/Time pH Art 7.48 (High) 06/07/2021 11:05 EDT pCO2 Art 31.1 mmHg (Low) 06/07/2021 11:05 EDT pO2 Art 78.6 mmHg (Low) 06/07/2021 11:05 EDT HCO3 Art 22.9 mmol/L 06/07/2021 11:05 EDT BE Art -0.2 mmol/L 06/07/2021 11:05 EDT sO2 Art 96.3 % 06/07/2021 11:05 EDT tHb Art 11.0 Gram/dL (Low) 06/07/2021 11:05 EDT FHHb 3.6 % 06/07/2021 11:05 EDT ctO2 14.7 mmol/L 06/07/2021 11:05 EDT Delivery Device Type Art Cannula 06/07/2021 11:05 EDT Temperature, F Art 98.6 Deg F 06/07/2021 11:05 EDT Art Blood Gas (ABG) Site Right Radial 06/07/2021 11:05 EDT Acceptable Kevin's Test Art Acceptable 06/07/2021 11:05 EDT Ventilator Mode Art N/A 06/07/2021 11:05 EDT Oxygen Flow Rate Art 2.0 Liter 06/07/2021 11:05 EDT ABG Num of Draw Attempts 1 06/07/2021 11:05 EDT Sodium Level 142 mmol/L 06/07/2021 11:25 EDT Potassium Level 3.2 mmol/L (Low) 06/07/2021 11:25 EDT Chloride Level 111 mmol/L 06/07/2021 11:25 EDT Carbon Dioxide Level 22 mmol/L 06/07/2021 11:25 EDT Anion Gap 12 06/07/2021 11:25 EDT Glucose Level 117 mg/dL (High) 06/07/2021 11:25 EDT Blood Urea Nitrogen 14 mg/dL 06/07/2021 11:25 EDT Creatinine Level 0.80 mg/dL 06/07/2021 11:25 EDT eGFR >60 mL/min/1.73m2 06/07/2021 11:25 EDT eGFR NonAfrican >60 mL/min/1.73m2 06/07/2021 11:25 EDT Bun/Creatinine 17.5 06/07/2021 11:25 EDT Calcium Level 8.8 mg/dL 06/07/2021 11:25 EDT Protein Total 6.2 Gram/dL (Low) 06/07/2021 11:25 EDT Albumin Level 2.7 Gram/dL (Low) 06/07/2021 11:25 EDT Globulin 3.5 Gram/dL 06/07/2021 11:25 EDT A/G Ratio 0.8 (Low) 06/07/2021 11:25 EDT Bilirubin Total 0.9 mg/dL 06/07/2021 11:25 EDT Alk Phos 104 Units/Liter 06/07/2021 11:25 EDT AST 347 Units/Liter (High) 06/07/2021 11:25 EDT ALT 134 Units/Liter (High) 06/07/2021 11:25 EDT Ammonia Level 33.0 uMol/L (High) 06/07/2021 11:25 EDT Lactic Acid Level 1.0 mmol/L 06/07/2021 11:25 EDT CK 405 Units/Liter (High) 06/07/2021 11:25 EDT Troponin I Ultra 0.039 ng/mL 06/07/2021 11:25 EDT WBC 6.3 K/uL 06/07/2021 11:25 EDT RBC 3.12 Million/uL (Low) 06/07/2021 11:25 EDT Hgb 10.4 g/dL (Low) 06/07/2021 11:25 EDT Hct 32.4 % (Low) 06/07/2021 11:25 EDT MCV 103.8 fL (High) 06/07/2021 11:25 EDT MCH 33.3 pg (High) 06/07/2021 11:25 EDT MCHC 32.1 Gram/dL (Low) 06/07/2021 11:25 EDT Platelet Count 207 K/uL 06/07/2021 11:25 EDT MPV 10.6 fL 06/07/2021 11:25 EDT RDW 12.6 % 06/07/2021 11:25 EDT Neut % 84.7 % (High) 06/07/2021 11:25 EDT Neut # 5.31 K/uL 06/07/2021 11:25 EDT Lymph % 8.8 % (Low) 06/07/2021 11:25 EDT Lymph # 0.55 x10(3)/uL (Low) 06/07/2021 11:25 EDT [place]on % 5.7 % 06/07/2021 11:25 EDT [place] # 0.36 K/uL 06/07/2021 11:25 EDT Eos % 0.2 % 06/07/2021 11:25 EDT Eos # .01 x10(3)/uL 06/07/2021 11:25 EDT Baso % 0.0 % 06/07/2021 11:25 EDT Baso # 0.00 x10(3)/uL 06/07/2021 11:25 EDT Slide Review No 06/07/2021 11:25 EDT IG# 0.04 x10(3)/uL 06/07/2021 11:25 EDT IG% 0.60 % 06/07/2021 11:25 EDT PT 11.4 Second(s) 06/07/2021 11:25 EDT INR 1.1 06/07/2021 11:25 EDT PTT 23.2 Second(s) 06/07/2021 11:25 EDT Urine Type. U Cath 06/07/2021 11:25 EDT Urine Color RENEA 06/07/2021 11:25 EDT Urine Appearance TURBID2 (Abnormal) 06/07/2021 11:25 EDT Urine Specific Carmel 1.012 06/07/2021 11:25 EDT Urine pH Dipstick 6.0 06/07/2021 11:25 EDT Urine Leukocyte Esterase LARGE2 (Abnormal) 06/07/2021 11:25 EDT Urine Nitrite POSITIVE2 (Abnormal) 06/07/2021 11:25 EDT Urine Protein Dipstick 100 (Abnormal) 06/07/2021 11:25 EDT Urine Glucose Dipstick NEGATIVE2 06/07/2021 11:25 EDT Urine Ketones Dipstick 15 (Abnormal) 06/07/2021 11:25 EDT Urine Urobilinogen Dipstick 0.2 06/07/2021 11:25 EDT Urine Bilirubin Dipstick NEGATIVE2 06/07/2021 11:25 EDT Urine Blood Dipstick MODERATE2 (Abnormal) 06/07/2021 11:25 EDT Ur RBC 0-2 (Abnormal) 06/07/2021 11:25 EDT Ur WBC To Numerous to Count (Abnormal) 06/07/2021 11:25 EDT Ur WBC Clumps Present (Abnormal) 06/07/2021 11:25 EDT Ur Bacteria 4+ (Abnormal) 06/07/2021 11:25 EDT Ur Squamous Epithelial Cells 2-5 (Abnormal) 06/07/2021 11:25 EDT Urine Culture if Indicated Culture Ordered 06/07/2021 11:25 EDT TSH 0.237 mcInt Units/mL (Low) 06/07/2021 11:25 EDT FT4 1.17 ng/dL 06/07/2021 11:25 EDT Acetaminophen Level <2.0 mcg/mL (Low) 06/07/2021 11:25 EDT Kemp Level 0.3 mmol/L (Low) 06/07/2021 11:25 EDT Salicylate <1.7 mg/dL (Low) 06/07/2021 11:25 EDT UDS pH 6.0 06/07/2021 11:25 EDT UDS Amp NEG3 06/07/2021 11:25 EDT UDS Stephy NEG3 06/07/2021 11:25 EDT UDS Benzo NEG3 06/07/2021 11:25 EDT UDS Javi NEG3 06/07/2021 11:25 EDT UDS Opi NEG3 06/07/2021 11:25 EDT UDS PCP NEG3 06/07/2021 11:25 EDT UDS TCA NEG3 06/07/2021 11:25 EDT UDS THC NEG3 06/07/2021 11:25 EDT Alcohol <3 mg/dL 06/07/2021 11:25 EDT %Alcohol <0.00 06/07/2021 11:25 EDT Additional Documentation Code Status No Code Status Order on Record documented in this encounter Plan of Treatment Not on file documented as of this encounter Visit Diagnoses Not on filedocumented in this encounter
--- OUTSIDE RECORDS SUMMARY | 2025-03-08 13:14 | XMS_ITS | Encounter Summary ---
Author Organization [employer] ([place], [place], [place], [place]) Address [address] [place] [address] Care Team Providers Care Civil Preparedness Coordinator Name Role Phone Unavailable Primary Care Provider Unavailabl e Encounter Details Date Type Department Care Team (Late st Contact Info) Description 06/07/2021 Transcribed Document [facility] [place] [address] [place] [address] ProviderTg MD [address] [place] [address] Social History Tobacco Use Types [...] ProviderMD - 06/07/2021 2:19 PM CDT Evaluation, Physical Therapy Entered On: 06/08/2021 16:10 EDT Performed On: 06/08/2021 15:59 EDT by KUSHAL CYR, PT General Information, PT Visit Type, PT : Initial evaluation Patient Orders : Order Date Order Ordering 06/07/2021 14:19 PT Evaluation and Treatment Ordered By: CARA DE LA ROSA PA Active Diagnoses : 06/07/2021 12:00 Altered mental status 06/07/2021 12:00 Sepsis, unspecified organism 06/07/2021 12:00 Urinary tract infection, site not specified Therapy Diagnosis, PT : Decreased strength Admission Date : 06/07/2021 12:36 Co-treated by, PT : Occupational Therapist Personal Devices : Personal Devices No Devices Recorded Assistive Devices : Assistive Devices No Devices Recorded Isolation Maintained : Airborne, Contact, Containment, Droplet General Information Comment, PT : Admitted with UTI, Sepsis, AMS Lymphoma, HTN KUSHAL CYR, PT - 06/08/2021 15:59 EDT General Status Patient Received Status : Supine in bed Treatment Start Time : 06/08/2021 15:39 EDT Patient Left Status : Supine in bed, RN/PCT informed, Communication board completed, All needs met and within reach RN/PCT Informed Comment : OK to see per RN Treatment End Time : 06/08/2021 15:56 EDT Treatment Time : 17 Minute(s) KUSHAL CYR, PT - 06/08/2021 15:59 EDT History and Environment Living Situation, Therapy : Home Patient Lives With : Parent(s), Other: Son and dad Persons Providing Information : Patient Home Equipment Therapy, PT : Commode, Shower Equipment, Walker Commode : Commode, bedside Shower Equipment : Shower Chair, with back Walker : Walker, four wheel Home Setup : One story Stairs : Yes Stair Location(s) : Outside Outside Stairs, Number of Steps : 3 Railing Outside : Yes Outside Railing Position : Left, going up KUSHAL CYR, PT - 06/08/2021 15:59 EDT Prior Level of Function PT GRID Prior LOF Ambulation, Household : Assist needed Prior LOF Ambulation, Community : Assist needed Prior LOF Bed Mobility : Assist needed Prior LOF Toileting : Assist needed Prior LOF Transfer : Assist needed KUSHAL CYR, PT - 06/08/2021 15:59 EDT History and Environment Comment, PT : Unsure of reliability of assist needed KUSHAL CYR, PT - 06/08/2021 15:59 EDT Upper Extremity Upper Extremity Dominance : Right KUSHAL CYR, PT - 06/08/2021 15:59 EDT Right Upper Extremity Detailed ROM Grid Right Shoulder Flexion Range Active : 10 Passive : 90 KUSHAL CYR, PT - 06/08/2021 15:59 EDT Left Upper Extremity Detailed ROM Grid Left Shoulder Flexion Range Active : 10 Passive : 90 KUSHAL CYR, PT - 06/08/2021 15:59 EDT Right Upper Extremity MMT Shoulder Flexion 0-180 : 2/poor Elbow Flexion 0-150 : 2/poor Elbow Extension 0-0 : 2/poor KUSHAL CYR, 06/08/2021 15:59 EDT Left Upper Extremity MMT Shoulder Flexion 0-180 : 2/poor Elbow Flexion 0-150 : 2/poor Elbow Extension 0-0 : 2/poor CYR, KUSHAL Randi., PT 06/08/2021 15:59 EDT Lower Extremity RLE ROM Grid Knee Flexion (0-140) Ankle Dorsiflexion (0-20) Active Assist : 90 Neutral CYRKUSHAL., 06/08/2021 15:59 EDT CYR KUSHAL K., 06/08/2021 15:59 EDT Left Lower Extremity Range of Motion Knee Flexion (0-140) Ankle Dorsiflexion (0-20) Active Assist : 90 Neutral CYRKUSHAL., 06/08/2021 15:59 EDT KUSHAL CYR K., 06/08/2021 15:59 EDT Right Lower Extremity MMT Hip Flexion (0-125) : 2-/poor Hip Extension (0-10) : 2-/poor Hip Abduction (0-45) : 2-/poor Hip Adduction (0-20) : 2-/poor Knee Flexion (0-140) : 2-/poor Knee Extension (0-0) : 2-/poor Ankle Dorsiflexion (0-20) : 2-/poor Ankle Plantarflexion (0-45) : 2-/poor CYR, KUSHAL Bryan., PT - 06/08/2021 15:59 EDT Left Lower Extremity MMT Hip Flexion (0-125) : 2/poor Hip Extension (0-10) : 2/poor Hip Abduction (0-45) : 2/poor Hip Adduction (0-20) : 2/poor Knee Flexion (0-140) : 2/poor Knee Extension (0-0) : 2/poor Ankle Dorsiflexion (0-20) : 2/poor Ankle Plantarflexion (0-45) : 2/poor KUSHAL CYR., PT 06/08/2021 15:59 EDT Functional Mobility Mobility Grid Bed Roll Left : Rehab Minimal assistance Bed Scooting : Rehab Minimal assistance (Comment: of 2 [KUSHAL CYR., 06/08/2021 15:59 EDT] ) Supine to Sit : Rehab Minimal assistance (Comment: of 2 [KUSHAL CYR, PT - 06/08/2021 15:59 EDT] ) Sit to Supine : Rehab Minimal assistance (Comment: of 2 [KUSHAL CYR, PT - 06/08/2021 15:59 EDT] ) KUSHAL CYR, PT - 06/08/2021 15:59 EDT Bed Mobility Scooting Device : Rails Supine to Sit Device : Rails Sit to Supine Devices : Rails KUSHAL CYR, PT - 06/08/2021 15:59 EDT Gait Training/Assessment, PT Gait Assistance Level : Unable to assess/activity not appropriate Walking Distance : Too weak KUSHAL CYR, PT - 06/08/2021 15:59 EDT Activity Tolerance, PT Activity Tolerance, PT Activity #1 Activity : Sitting supported Minutes : 3 Minute(s) Comment (Comment: with contact to work on sitting balance [KUSHAL CYR, PT - 06/08/2021 15:59 EDT] ) KUSHAL CYR, PT - 06/08/2021 15:59 EDT Cognition Assessment, PT Orientation : Oriented x 4 Cognition Assessment Comment : Lethargic Follows Basic Command Assessment : Slow and inconsistant KUSHAL CYR, PT - 06/08/2021 15:59 EDT Edu Topics Physical Therapy Education Grid Balance Training : Needs further teaching Bed Mobility Training : Needs further teaching Transfer Training : Needs further teaching KUSHAL CYR, PT - 06/08/2021 15:59 EDT Indication Assesessment, PT Physical Therapy Indicated : Yes PT Problem List : Impaired, bed mobility, Impaired, endurance tolerance, Impaired, sitting balance, Impaired, strength, Impaired, transfers Potential Barriers To Therapy : None evident Rehabilitation Potential : Good KUSHAL CYR, PT - 06/08/2021 15:59 EDT Plan of Care, PT PT Tx Plan/Goals Established w Patient : Yes PT Frequency Rehab : Five days per week PT Duration Rehab : Fourteen days PT Treatments Planned : Balance training, Bed mobility training, Gait training, Therapeutic exercises, Transfer training KUSHAL CYR, PT - 06/08/2021 15:59 EDT Short Term Goals Mobility/Bed Mobility STG PT Grid Goal #1 Activity : Supine to sit Assist : Supervision or set-up Date to Meet : 06/15/2021 EDT Goal Status : Initial goal KUSHAL CYR, PT - 06/08/2021 15:59 EDT Other PT STG Grid Goal #1 Goal : Sit EOB 5 min with supervision Date to Meet : 06/15/2021 EDT Goal Status : Initial goal KUSHAL CYR, PT - 06/08/2021 15:59 EDT Railroad Track Mechanic Goals Mobility/Bed Mobility LTG PT Grid Goal #1 Activity : Sit to stand Assist : Supervision or set-up Equipment : Walker, front wheel Date to Meet : 06/22/2021 EDT Goal Status : Intial Goal KUSHAL CYR, PT - 06/08/2021 15:59 EDT Transfer LTG Grid Goal #1 Destination : Chair, with arms Type : Stand Pivot Sit Assist : Supervision or set-up Date to Meet : 06/22/2021 EDT Goal Status : Intial Goal KUSHAL CYR, PT - 06/08/2021 15:59 EDT Ambulation LTG Grid Goal #1 Device : Walker, front wheel Distance : 100' Assist : Assist, minimal Date to Meet : 06/22/2021 EDT Goal Status : Intial Goal KUSHAL CYR, PT - 06/08/2021 15:59 EDT Treatment Note Subjective Comment : Lethargic Patient's Response to Treatment : Very weak Additional Objective Information : Sat EOB 3 min to work on sitting balance with contact for safety Assessment : Needs strengthening Plan for Treatment : Bed Mobility Sitting Balance Transfers Gt KUSHAL CYR, PT - 06/08/2021 15:59 EDT Pain Assessment Pain Scaled Used : 0-10 Pain scale Pain Score Pre-Intervention : 0 KUSHAL CYR, PT - 06/08/2021 15:59 EDT Image 1 - Images currently included in the form version of this document have not been included in the text rendition version of the form. Anticipated Discharge Needs, OT/PT Anticipated Discharge to : Unit, rehabilitation KUSHAL CYR, PT - 06/08/2021 15:59 EDT [facility] PT Charges PT Eval Moderate Complexity : 1 KUSHAL CYR, PT - 06/08/2021 15:59 EDT documented in this encounter Plan of Treatment Not on file documented as of this encounter Visit Diagnoses Not on filedocumented in this encounter
--- OUTSIDE RECORDS SUMMARY | 2025-03-08 13:14 | XMS_ITS | Encounter Summary ---
Author Organization [employer] ([place], [place], [place], [place]) Address [address] [facility] [place] [address] Care Team Providers Care Cobol Engineer Name Role Phone Unavailable Primary Care Provider Unavailabl e Encounter Details Date Type Department Care Team (Late st Contact Info) Description 06/07/2021 Transcribed Document [facility] Family Medicine [address] [place] [address] ProviderTg MD [address] [place] [address] Social History Tobacco Use Types Packs/Day Years Used Date Smoking Tobacco: Never Assessed Comments Unknown Sex and Gender Information Value Date Recorded Sex Assigned at Not on file Legal Sex Female 2:39 PM CDT Gender Identity Not on file Sexual Orientation Not on file documented as of this encounter Miscellaneous Notes * Cerner Conversion Note - Historical ProviderMD - 06/07/2021 2:58 PM CDT ED Event Note Entered On: 06/07/2021 14:59 EDT Performed On: 06/07/2021 14:58 EDT by LUISA SALAZAR ED Event Note ED Description of Event : Walkbase tech spoke to PA surveyor oil well directional alexsander sharma about stat us ordered and stated she would call someone in tomorrow depending on the patients labs LUISA SALAZAR - 06/07/2021 14:58 EDT documented in this encounter Plan of Treatment Not on file documented as of this encounter Visit Diagnoses Not on filedocumented in this encounter
--- OUTSIDE RECORDS SUMMARY | 2025-03-08 13:14 | XMS_ITS | Encounter Summary ---
Author Organization [employer] ([place], [place], [place], [place]) Address [address] [place] [address] Care Team Providers Care Space Systems Operations Superintendent Name Role Phone Unavailable Primary Care Provider Unavailabl e Encounter Details Date Type Department Care Team (Late st Contact Info) Description 06/10/2021 Transcribed Document [facility] Family Medicine [address] [place] [address] ProviderTg MD [address] [place] [address] Social History Tobacco Use Types Packs/Day Years Used Date Smoking Tobacco: Never Assessed Comments Unknown Sex and Gender Information Value Date Recorded Sex Assigned at Not on file Legal Sex Female 2:39 PM CDT Gender Identity Not on file Sexual Orientation Not on file documented as of this encounter Miscellaneous Notes * Cerner Conversion Note - Tg Jones MD - 06/10/2021 1:17 PM CDT Patient: SUDHA TIMMONS Age: 75 [...] 1.5 D dimer 9.2-> 2.95 LFTs improved PAST MEDICAL HISTORY Non-Hodgkin's lymphoma- finished therapy > 1 year ago per son Bipolar Dementia Hypertension Surgical History: Heart cath Bilateral breast reduction Cataract surgery Sciatic nerve surgery Social History: Lives with her 98 year old father. No tobacco, alcohol, or drug use. Family History: Mother in her 70's of unknown illness Review of Systems ROS reviewed as documented in chart Health Status Current medications: (Selected) Inpatient Medications Ordered Bactrim: 1 Tab, Oral, MoWeFr Combivent Respimat CFC free 100 mcg-20 mcg/inh inhalation aerosol: 2 Puff, Inhalation, RT_QID Core.25 mg, Oral, BID D5W 1,000 mL: 50 mL/Hr, IntraVENous, Stop: 06/12/21 4:28:00 EDT Lopressor: 5 mg, IV Push, Q6H, PRN: Tachycardia Lovenox: 115 mg, SubCutaneous, [id number] Mucinex: 1,200 mg, Oral, BID Zofran: 4 mg, IV Push, Q4H, PRN: Nausea aspirin: 81 mg, Oral, Daily ceFAZolin: 2 Gram, 100 mL, 200 mL/Hr, IV Piggyback, Q8HInt cloNIDine: 0.1 mg, Oral, Q4H, PRN: Hypertension dexAMETHasone: 10 mg, IV Push, Daily hydrALAZINE: 10 mg, IV Push, Q6H, PRN: Hypertension hydrOXYzine hydrochloride: 25 mg, Oral, At Bedtime, PRN: Sleep lactobacillus acidophilus: 1 Cap, Oral, Daily lithium: 300 mg, Oral, BID pantoprazole: 40 mg, Oral, Daily remdesivir: 250 mL/Hr, IV Piggyback, [id number] rifAXIMin: 550 mg, Oral, BID Documented Medications [...] 24 hrs) Last Charted Minimum Maximum Temp 98.2 (JUN 10 11:03) 97.3 (JUN 10 01:49) 98.2 (JUN 09 21:30) Mon HR 121 (JUN 10 11:48) 99 (JUN 09 22:30) 127 (JUN 10 01:00) Resp Rate 20 (JUN 10 11:03) 18 (JUN 09 14:00) 20 (JUN 10:03) SBP L 89 (JUN 10:03) L 89 (JUN 10 11:03) 116 (JUN 10 10:03) DBP 68 (JUN 10 11:03) 64 (JUN 09 22:30) H 93 (JUN 10 01:00) MAP 73 (JUN 10 11:03) 73 (JUN 09 22:30) 99 (JUN 10 01:00) SpO2 94 (JUN 10 11:48) L 89 (JUN 10 05:39) 96 (JUN 10 00:10) General: No acute distress, On Optiflow . [...] review: Labs (Last four charted values) WBC 7.0 (JUN 10) 9.3 (JUN 09) 6.5 (JUN 08) 6.3 (MAY 09) HB L 10.8 (MAY 12) L 11.0 (MAY 11) L 9.9 (MAY 10) L 10.4 (MAY 09) HCT 34.3 (MAY 12) 34.2 (MAY 11) L 30.3 (MAY 10) L 32.4 (MAY 09) Plt 247 (MAY 12) 276 (MAY 11) 220 (MAY 10) 207 (OCT 09) Na H 150 (MAY 12) H 149 (MAY 11) H 147 (MAY 10) 142 (MAY 09) K 3.7 (MAY 12) 3.8 (MAY 11) 3.6 (OCT 10) L 3.2 (MAY 09) Cl H 121 (MAY 12) H 120 (MAY 11) H 120 (MAY 10) 111 (MAY 09) CO2 21 (MAY 12) 22 (MAY 11) 21 (MAY 10) 22 (OCT 09) BUN H 32 (MAY 12) 18 (OCT 11) 13 (OCT 10) 14 (OCT 09) Cr H 1.50 (MAY 12) 1.00 (MAY 11) 0.60 (MAY 10) 0.80 (MAY 09) Glu R H 135 (MAY 12) H 115 (OCT 11) 106 (OCT 10) H 117 (JUN 07) Ca 8.9 (JUN 10) 9.3 (JUN 09) 8.9 (JUN 08) 8.8 (JUN 07) Lactic 1.0 (JUN 07) PT 11.4 (JUN 08) 11.4 (JUN 07) 11.4 (JUN 07) INR 1.1 (JUN 08) 1.1 (JUN 07) 1.1 (JUN 07) PTT 23.2 (JUN 07) AST H 128 (JUN 10) H 210 (JUN 09) H 420 (JUN 08) H 347 (JUN 07) ALT H 98 (JUN 10) H 143 (JUN 09) H 181 (JUN 08) H 134 (JUN 07) ALK P 88 (JUN 10) 101 (JUN 09) 99 (JUN 08) 104 (JUN 07) T Bili 0.5 (JUN 10) 0.9 (JUN 09) 0.6 (JUN 08) 0.9 (JUN 07) PTN L 5.4 (JUN 10) L 5.9 (JUN 09) L 5.6 (JUN 08) L 6.2 (JUN 07) ALB L 2.2 (JUN 10) L 2.4 (JUN 09) L 2.3 (JUN 08) L 2.7 (JUN 07) Troponin C 2.020 (JUN 10) C 2.700 [...]
--- OUTSIDE RECORDS SUMMARY | 2025-03-08 13:14 | XMS_ITS | Encounter Summary ---
Author Organization [employer] ([place], [place], [place], [place]) Address [address] [place] [address] Care Team Providers Care Tractor Trailer Driver Name Role Phone Unavailable Primary Care Provider Unavailabl e Encounter Details Date Type Department Care Team (Late st Contact Info) Description 06/10/2021 Transcribed Document [facility] Family Medicine [address] [place] [address] ProviderTg MD [address] [place] [address] Social History Tobacco Use Types Packs/Day Years Used Date Smoking Tobacco: Never Assessed Comments Unknown Sex and Gender Information Value Date Recorded Sex Assigned at Not on file Legal Sex Female 2:39 PM CDT Gender Identity Not on file Sexual Orientation Not on file documented as of this encounter Miscellaneous Notes * Cerner Conversion Note - Historical ProviderMD - 06/10/2021 9:58 PM CDT Patient: SUDHA SOLORZANO Age: 75 Years Sex: Female : 1945 Upon assessment patient is restless and not talking, followed some simple commands but ignored others. Patient not able to drink from a straw. Not able to safely give oral medications at this time. documented in this encounter Plan of Treatment Not on file documented as of this encounter Visit Diagnoses Not on filedocumented in this encounter
--- OUTSIDE RECORDS SUMMARY | 2025-03-08 13:14 | XMS_ITS | Encounter Summary ---
Author Organization [employer] ([place], [place], [place], [place]) Address [address] [place] [address] Care Team Providers Care Director Decision Support Name Role Phone Unavailable Primary Care Provider Unavailabl e Encounter Details Date Type Department Care Team (Late st Contact Info) Description 06/10/2021 Transcribed Document [facility] Family Medicine [address] [place] [address] ProviderTg MD [address] [place] [address] Social History Tobacco Use Types Packs/Day Years Used Date Smoking Tobacco: Never Assessed Comments Unknown Sex and Gender Information Value Date Recorded Sex Assigned at Not on file Legal Sex Female 2:39 PM CDT Gender Identity Not on file Sexual Orientation Not on file documented as of this encounter Miscellaneous Notes * Cerner Conversion Note - Tg ProviderMD - 06/10/2021 5:00 AM CDT Chart Check - Review Order Profile Entered On: 06/10/2021 5:36 EDT Performed On: 06/10/2021 5:00 EDT by Sari Maciel RN-TRAVELER Chart Check Powerplans Initiated/Discontinued as Appropriate : Yes All Active Orders Reviewed : Yes Sari Maciel RN-TRAVELER - 06/10/2021 5:36 EDT documented in this encounter Plan of Treatment Not on file documented as of this encounter Visit Diagnoses Not on filedocumented in this encounter
--- OUTSIDE RECORDS SUMMARY | 2025-03-08 13:14 | XMS_ITS | Encounter Summary ---
Author Organization [employer] ([place], [place], [place], [place]) Address [address] [place] [address] Care Team Providers Care Acid Washer Operator Name Role Phone Unavailable Primary Care Provider Unavailabl e Encounter Details Date Type Department Care Team (Late st Contact Info) Description 06/16/2021 Transcribed Document [facility] Family Medicine [address] [place] [address] ProviderTg MD [address] [place] [address] Social History Tobacco Use Types Packs/Day Years Used Date Smoking Tobacco: Never Assessed Comments Unknown Sex and Gender Information Value Date Recorded Sex Assigned at Not on file Legal Sex Female 2:39 PM CDT Gender Identity Not on file Sexual Orientation Not on file documented as of this encounter Miscellaneous Notes * Cerner Conversion Note - Historical ProviderMD - 06/16/2021 1:29 PM CDT Discharge Summary, PT Entered On: 06/16/2021 13:32 EDT Performed On: 06/16/2021 13:29 EDT by CEDRIC PALMA, PT Discharge Summary Discharge Summary Provider Notified : Nursing, Spiritual care, Occupational Therapy Reason for Discharge : Change in medical status Discharge Summary Comment, PT : pt remains in [facility], she was evaluated for PTx/OTx 06/08 and has been on HOLD for therapy since due to decline in medical status RN again today HOLDING PTx/OTx and after discussion is in agreement to DISCONTINUE therapy as NOT had sessios since eval on 06/08 NO GOALS MET CEDRIC PALMA, PT - 06/16/2021 13:29 EDT Short Term Goals Mobility/Bed Mobility STG PT Grid Goal #1 Activity : Supine to sit Assist : Supervision or set-up Date to Meet : 06/15/2021 EDT Goal Status : Not met Comment : d/c 06/16 CEDRIC SAMANIEGO, PT - 06/16/2021 13:29 EDT Other PT STG Grid Goal #1 Goal : Sit EOB 5 min with supervision Date to Meet : 06/15/2021 EDT Goal Status : Not met Comment : d/c 06/16 CEDRIC SAMANIEGO, PT - 06/16/2021 13:29 EDT Custodial Goals Mobility/Bed Mobility LTG PT Grid Goal #1 Activity : Sit to stand Assist : Supervision or set-up Equipment : Walker, front wheel Date to Meet : 06/22/2021 EDT Goal Status : Not met Comment : d/c 06/16 CEDRIC SAMANIEGO, PT - 06/16/2021 13:29 EDT Transfer LTG Grid Goal #1 Destination : Chair, with arms Type : Stand Pivot Sit Assist : Supervision or set-up Date to Meet : 06/22/2021 EDT Goal Status : Not met Comment : d/c 06/16 CEDRIC SAMANIEGO, PT - 06/16/2021 13:29 EDT Ambulation LTG Grid Goal #1 Device : Walker, front wheel Distance : 100' Assist : Assist, minimal Date to Meet : 06/22/2021 EDT Goal Status : Not met Comment : d/c 06/16 CEDRIC SAMANIEGO, PT - 06/16/2021 13:29 EDT documented in this encounter Plan of Treatment Not on file documented as of this encounter Visit Diagnoses Not on filedocumented in this encounter
--- OUTSIDE RECORDS SUMMARY | 2025-03-08 13:14 | XMS_ITS | Encounter Summary ---
Author Organization [facility] Address [address] [place] [address] Care Team Providers Care Defense Travel Administrator Name Role Phone Dano Damian MD Primary Care Provider [phone] Trevor Chappell MD Primary Care Provider [phone] Encounter Details Date Type Department Care Team (Late st Contact Info) Description 07/21/2021 Lab Requisition [facility] [address] [place] [address] Seth Fuentes MD [facility] [place] [address] Encounter for general adult medical examination without abnormal findings Social History Tobacco Use Types Packs/Day Years [...] Date/Time Associated Diagnosis Comments LITHIUM, SERUM Routine 07/21/2021 2:40 PM EST Encounter for general adult medical examination without abnormal findings documented in this encounter Results * (ABNORMAL) Calio level (07/21/2021 2:40 PM EST) Calio, Serum 3.3(HH) <0.1 mmol/L 07/21/2021 9:33 PM EST [facility] Blood Venous blood specimen / Unknown 07/21/2021 2:40 PM EST 07/21/2021 8:20 PM EST Narrative [facility] - 07/21/2021 9:33 PM EST Therapeutic Range: 0.6-1.2 mmol/L 12 hours after last dose. us Seth Fuentes MD LAB BLOOD ORDERABLES Final Re sult [facility] [address] [place] [address] documented in this encounter Visit Diagnoses Diagnosis Encounter for general adult medical examination without abnormal findings documented in this encounter Care Teams Defense Travel Administrator Relationship Specialty Start Date End Date Dano Damian MD [address] [place] [address] PCP - General 01/10/21 06/09/23 Trevor Chappell MD [address] [place] [address] [place] [address] PCP - General 06/10/23 documented as of this encounter
--- OUTSIDE RECORDS SUMMARY | 2025-03-08 13:14 | XMS_ITS | Encounter Summary ---
Author Organization [employer] ([place], [place], [place], [place]) Address [address] [place] [address] Care Team Providers Care Promotions Director Name Role Phone Unavailable Primary Care Provider Unavailabl e Encounter Details Date Type Department Care Team (Late st Contact Info) Description 06/07/2021 Transcribed Document [facility] Family Medicine [address] [place] [address] ProviderTg MD [address] [place] [address] Social History Tobacco Use Types Packs/Day Years Used Date Smoking Tobacco: Never Assessed Comments Unknown Sex and Gender Information Value Date Recorded Sex Assigned at Not on file Legal Sex Female 2:39 PM CDT Gender Identity Not on file Sexual Orientation Not on file documented as of this encounter Miscellaneous Notes * Cerner Conversion Note - Historical ProviderMD - 06/07/2021 2:50 PM CDT ED Event Note Entered On: 06/07/2021 14:50 EDT Performed On: 06/07/2021 14:50 EDT by LUISA SALAZAR ED Event Note ED Description of Event : US paged @ [phone] LUISA SALAZAR - 06/07/2021 14:50 EDT Electronically signed by Julian Baca Conversion Airborne Operations Superintendent Cerner at 12/18/2022 9:07 AM CDT documented in this encounter Plan of Treatment Not on file documented as of this encounter Visit Diagnoses Not on filedocumented in this encounter
--- OUTSIDE RECORDS SUMMARY | 2025-03-08 13:14 | XMS_ITS | Encounter Summary ---
Author Organization [facility] ([place], [place], [place], [place]) Address [address] [place] [address] Care Team Providers Care Automated Access Systems Technician Name Role Phone Unavailable Primary Care Provider Unavailabl e Encounter Details Date Type Department Care Team (Late st Contact Info) Description 06/11/2021 Transcribed Document [facility] Pulm & Critical Care Medicine [address] [place] [address] Nadiya Montgomery MD [address] [place], [place] [id number] Social History Tobacco Use Types Packs/Day Years Used Date Smoking Tobacco: Never Assessed Comments Unknown Sex and Gender Information Value Date Recorded Sex Assigned at Not on file Legal Sex Female 2:39 PM CDT Gender Identity Not on file Sexual Orientation Not on file documented as of this encounter Miscellaneous Notes * Cerner Conversion Note - Nadiya Montgomery MD - 06/11/2021 4:14 PM EDT Patient: SUDHA TIMMONS Age: 75 years Sex: Female : 1945 Associated Diagnoses: None Author: NADIYA MONTGOMERY MD Basic Information CC: respiratory failure HPI: Patient is a 75 year old female with PMH significant for Non-Hodgkin's lymphoma, dementia, and hypertension. History is taken via chart review as patient is unable to participate. Per chart patient presented with lethargy and dysuria. She stated that her 98 year old father tested positive for COVID-19. Upon arrival patient was tachycardic and hypertensive. She was febrile with a temp of 102.0. O2 saturations were 89% on room air. Lab work showed elevated LFTs, ammonia 33, potassium 3.2, WBC and lactic acid were normal, hemoglobin 10.4. Urine culture is positive for e. coli. She was found to be COVID-19 positive. Patient was admitted for sepsis due to UTI and COVID-19 pneumonia. Pulmonary is consulted for respiratory failure. Patient was placed on Optiflow this AM for worsening respiratory status. CTA is positive for PE in the RLL pulmonary artery. At the time of consult, patient is on Optiflow. She is alert but confused. PMH: Non-Hodgkin's lymphoma Dementia Hypertension Surgical History: Heart cath Bilateral breast reduction Cataract surgery Sciatic nerve surgery Social History: Lives with her 98 year old father. No tobacco, alcohol, or drug use. Family History: Father still living 06/10 Pt remains on 60/60 optiflow +521/24 hours . Cr continues to worsen and now 1.5 from 1. Ongoing HTN. Elevated CKs 1520, hypernatremic Afebrile and no leukocytosis. Post Actemra yesterday. RN reports noted increased confusion particularly nocturnally. 06/11 Remains on Optiflow 60/60 with HTN and tachycardia overnight. Has only 100 ml reported out in last 24 hours, Cr is 2 today off Lisinopril remains on Bactrim, RN to hold this AM. Afebrile and no leukocytosis. CRP and Ferritin trending down. RN reports no new overnight events pt sat was 100% and I spoke with RT to wean Fio2 with a goal 90-94% high risk for apsiration Intake & Output Totals Last 24 Hours (7a-7a) Intake (11 Events) Medications (556 mL) Oral Intake (60 mL) Output (1 Events) acute Hamlin Catheter (100 mL) Input Total: 616 mL Output Total: 100 mL Balance: 516 mL Review of Systems Unable to obtain: Due to clinical condition, Due to altered mental status. limited : isabel abd pain and chest pain, over all , fatigued, moaning , Health Status Allergies: Allergic Reactions (Selected) Severity Not Documented Anaprox- Rash. Codeine- No reactions were documented. Latex- Itching. Naproxen- No reactions were documented., Allergies (4) Active Reaction Anaprox Rash codeine None Documented Latex Itching naproxen None Documented Current medications: (Selected) Inpatient Medications Ordered Combivent Respimat CFC free 100 mcg-20 mcg/inh inhalation aerosol: 2 Puff, Inhalation, RT_QID Core.25 mg, Oral, BID D5W 1,000 mL: 50 mL/Hr, IntraVENous, Stop: 06/12/21 4:28:00 EDT Lopressor: 5 mg, IV Push, Q3H, PRN: Tachycardia Lovenox: 115 mg, SubCutaneous, [id number] Mucinex: 1,200 mg, Oral, BID Protonix: 40 mg, IV Push, Daily SEROquel: 25 mg, Oral, [id number] Zofran: 4 mg, IV Push, Q4H, PRN: [...] (Severe 7-10) remdesivir: 250 mL/Hr, IV Piggyback, [id number] rifAXIMin: 550 mg, Oral, BID Documented Medications [...] 1 Cap, Oral, Daily, 30 Cap, 0 Refill(s), Medications (20) Active Scheduled: (14) albuterol-ipratropium CFC free 4 g inh 2 Puff, Inhalation, RT_QID aspirin EC 81 mg tab 81 mg 1 Tab, Oral, Daily atovaquone 750 mg/5 mL liq 750 mg 5 mL, Oral, BID carvedilol 6.25 mg tab 6.25 mg 1 Tab, Oral, BID ceFAZolin 2 Gram 100 mL, IV Piggyback, Q8HInt cyanocobalamin 1000 mcg/1 mL inj 1,000 mcg 1 mL, IntraMuscular, Daily dexAMETHasone 10 mg/1 mL inj 10 mg 1 mL, IV Push, Daily enoxaparin 150 mg/1 mL inj 115 mg 0.77 mL, SubCutaneous, [id number] guaiFENesin 600 mg ER tab 1,200 mg 2 Tab, Oral, BID lactobacillus acidophilus cap 1 Cap, Oral, Daily pantoprazole 40 mg inj 40 mg, IV Push, Daily QUEtiapine 25 mg tab 25 mg 1 Tab, Oral, [id number] remdesivir , IV Piggyback, [id number] rifaXIMIN 550 mg tab 550 mg 1 Tab, Oral, BID Continuous: (1) Dextrose 5% in Water 1,000 mL 1,000 mL, IntraVENous, 50 mL/Hr PRN: (5) hydrOXYzine hcl 25 mg tab 25 mg 1 Tab, Oral, At Bedtime labetalol 100 mg/20 mL inj 10 mg 2 mL, IV Push, Q3H metoprolol 5 mg/5 mL inj 5 mg 5 mL, IV Push, Q3H ondansetron 4 mg/2 mL inj 4 mg 2 mL, IV Push, Q4H oxyCODONE 5 mg tab 5 mg 1 Tab, Oral, Q4H Problem list: Medical Hip pain, right / SNOMED CT 4215454742 / Confirmed At risk for sleep apnea / IMO 52114971 / Confirmed Concussion / SNOMED CT 1515650739 / Confirmed concussion with loss of memory+ Disease caused by 2019 novel coronavirus / SNOMED CT 5849002955 / Confirmed Problem added by a rule: [id number]. Fall / SNOMED CT 8326866 / Confirmed HTN (hypertension) / SNOMED CT 6410074057 / Confirmed Depression / SNOMED CT 5336544554 / Confirmed Numbness and tingling / SNOMED CT 9826954711 / Confirmed numbness and tingling right thigh area to toes Osteoarthritis / SNOMED CT 1766731683 / Confirmed Pain / SNOMED CT 13020591 / Confirmed right buttocks pain Leg pain, right / SNOMED CT 124838036 / Confirmed sleep apnea / SNOMED CT 942484668 / Confirmed Insomnia / SNOMED CT 777157700 / Confirmed Tremor / SNOMED CT 75650870 / Confirmed, Active Problems (16) At risk for sleep apnea Bipolar I disorder, current or most recent episode depressed, with psychotic features with catatonia Concussion Depression Disease caused by 2019 novel coronavirus Fall H/O non-Hodgkin's lymphoma Hip pain, right HTN (hypertension) Insomnia Leg pain, right Numbness and tingling Osteoarthritis Pain sleep apnea Tremor Physical Examination VS/Measurements Vitals Signs (last 24 hrs) Last Charted Minimum Maximum Temp 97.4 (JUN 11 09:00) 97.4 (JUN 11 09:00) 98.9 (JUN 10 16:58) Apical HR H 119 (JUN 11:08) H 119 (JUN 11:08) H 125 (JUN 11 05:15) Mon HR 113 (JUN 11 08:48) 104 (JUN 11 06:00) 125 (JUN 11 05:00) Resp Rate 16 (JUN 11 08:48) 16 (JUN 10 15:59) H 22 (JUN 10 16:58) SBP H 158 (JUN 11 08:48) 105 (JUN 10 16:58) H 165 (JUN 11 05:00) DBP H 115 (JUN 11 08:48) 71 (JUN 10 15:59) H 115 (JUN 11 08:48) MAP 136 (JUN 11 08:48) 88 (MAY 12 17:32) 136 (JUN 11 08:48) SpO2 L 92 (JUN 11 08:48) L 72 (JUN 11 05:00) 94 (JUN 11 06:00) General: No acute distress, On Optiflow , confused , obese . Eye: Pupils are equal, round and reactive to light, Normal conjunctiva. HENT: Normocephalic, Oral mucosa is moist. Neck: Supple, Non-tender, No lymphadenopathy. Respiratory: Lungs are clear to auscultation, Breath sounds are equal. Cardiovascular: Normal rate, Normal peripheral perfusion, Mild LE edema , tachycardia . Gastrointestinal: Soft, Non-tender, Normal bowel sounds. Musculoskeletal: No deformity. Integumentary: Warm, Dry. Neurologic: Alert, confused. Review / Management Results review: Labs (Last four charted values) WBC 10.0 (JUN 11) 7.0 (JUN 10) 9.3 (MAY 11) 6.5 (MAY 10) HB L 10.7 (MAY 13) L 10.8 (MAY 12) L 11.0 (MAY 11) L 9.9 (MAY 10) HCT L 32.8 (MAY 13) 34.3 (MAY 12) 34.2 (OCT 11) L 30.3 (OCT 10) Plt 257 (MAY 13) 247 (MAY 12) 276 (MAY 11) 220 (OCT 10) Na H 148 (MAY 13) H 150 (MAY 12) H 149 (MAY 11) H 147 (MAY 10) K 3.8 (MAY 13) 3.7 (MAY 12) 3.8 (OCT 11) 3.6 (OCT 10) Cl H 119 (MAY 13) H 121 (MAY 12) H 120 (MAY 11) H 120 (OCT 10) CO2 L 20 (MAY 13) 21 (MAY 12) 22 (OCT 11) 21 (OCT 10) BUN H 49 (MAY 13) H 32 (OCT 12) 18 (OCT 11) 13 (OCT 10) Cr H 2.00 (MAY 13) H 1.50 (MAY 12) 1.00 (MAY 11) 0.60 (OCT 10) Glu R 100 (MAY 13) H 135 (MAY 12) H 115 (OCT 11) 106 (JUN 08) Ca 9.2 (JUN 11) 8.9 (JUN 10) 9.3 (JUN 09) 8.9 (JUN 08) Lactic 1.0 (JUN 07) PT 11.4 (MAY 10) 11.4 (JUN 07) 11.4 (JUN 07) INR 1.1 (MAY 10) 1.1 (JUN 07) 1.1 (JUN 07) PTT 23.2 (JUN 07) AST H 127 (JUN 11) H 128 (MAY 12) H 210 (JUN 09) H 420 (JUN 08) ALT H 67 (JUN 11) H 98 (JUN 10) H 143 (JUN 09) H 181 (JUN 08) ALK P 80 (JUN 11) 88 (JUN 10) 101 (JUN 09) 99 (JUN 08) T [...] 1.220 (JUN 08) 0.039 (JUN 07) . No qualifying data available Radiology Results (Last 48 hours) [id number] -- 06/07/2021 12:36 CR Chest 1 Vw Portable (06/10/2021 11:11) Result: PORTABLE CHEST 06/10/2021 11:01 AM HISTORY: Dyspnea.COMPARISON: June 07, 2021.FINDINGS: The heart is stable in size . The lung gilman demonstrate nosignificant change in the patchy bilateral opacities. There is nopneumothorax . The support devices are in good position. IMPRESSION: There has been no significant interval change. Continued follow-up recommended .Images reviewed, interpreted, and dictated by Dr. Milagros Nathan.Transcribed by Álvaro Cavazos(R).I have personally viewed, interpreted and dictated the examination. Ihave read and agree with the above final transcribed report. CR Chest 1 Vw Portable (06/11/2021 07:54) Result: PORTABLE CHEST 06/11/2021 6:00 AM HISTORY: Dyspnea.COMPARISON: June 10, 2021.FINDINGS: The heart is stable in size . The lung gilman demonstrateno significant change in the patchy bilateral opacities. There is nopneumothorax . The support devices are in good position .IMPRESSION: There has been no significant interval change . Continued follow up recommended .Images reviewed, interpreted, and dictated by Dr. Milagros Nathan.Transcribed by Elia Grimm PA-C, R.TJavid (N), Vicente Cruz T.I have personally viewed, interpreted and dictated the examination. Ihave read and agree with the above final transcribed report. Chest x-ray 06/11/2021 reviewed and visualized and patient has patchy bilateral opacities no pneumothorax Blood Gases (Current Encounter/Past 24 Hours) pH Art 7.50 HI 06/11/2021 08:15 pCO2 Art 27.7 LOW 06/11/2021 08:14 pO2 Art 66.1 LOW 06/11/2021 08:15 HCO3 Art 21.6 06/11/2021 07:35 BE Art -.8 06/11/2021 07:35 sO2 Art 93.7 LOW 06/11/2021 08:15 tHb Art 10.9 LOW 06/11/2021 08:14 FHHb 6.2 NA 06/11/2021 07:35 ctO2 14.3 NA 06/11/2021 07:35 FIO2 Art 60 NA 06/11/2021 07:35 Delivery Device Type Art OptiFlow NA 06/11/2021 07:35 Temperature, F Art 98.6 NA 06/11/2021 07:35 Art Blood Gas (ABG) Site Right Radial 06/11/2021 07:35 Acceptable Kevin's Test Art Acceptable NA 06/11/2021 07:35 Ventilator Mode Art N/A NA 06/11/2021 07:35 Oxygen Flow Rate Art 60.0 NA 06/11/2021 07:35 Comment Art supine NA 06/11/2021 07:35 ABG Num of Draw Attempts 1 NA 06/11/2021 07:35 PaO2/FiO2 calculated 110 NA 06/11/2021 07:35 Patient has respiratory alkalosis with metabolic acidosis and hyperchloremia ECHO Impression: Moderate left ventricular hypertrophy. Akinetic apex and normal basal segments. Visually estimated ejection fraction 35% +/- 5%. No hemodynamically significant valvular heart disease. Measurements Summary: LVEDd: 4.89 cm LVESd: 3.85 cm IVSEd: 1.47 cm AO Root:2.9 cm LVPWd: 1.4 cm Impression and Plan Pulmonary Acute hypoxemic respiratory failure in setting of COVID-19 pneumonia Fully vaccinated per report PEs/ acute CTA chest: multiple small filling defects in RLL pulmonary artery consistent with PE, patchy bilateral groundglass opacities LE Duplex: negative for DVT Cardiac NSTEMI Hypertension and tachycardia ECHO: EF 35% per cardio : Abnormal Echo: findings are new and most c/w stress-induced cardiomyopathy, which should improved with medical therapy and treatment of infectious condition. Renal REBECCA : worsening creatinine ( DEMETRI I, and contrast induced nephropathy and dehydration , CK elevation ) Normal creatinine on adm Hypernatremia ongoing but slightly improved Hypokalemia prior, mild hypomagnesium US RUQ: on Stable mild right hydronephrosis of uncertain etiology or significance Patient has respiratory alkalosis with metabolic acidosis and hyperchloremia Elevated CK ID Sepsis present on adm: due to UTI and pneumonia COVID-19 positive 06/07 Urine culture: e. coli Elevated inflammatory markers Elevated procal GI Transaminitis ? etiology primary team is following Hyperammonemia US RUQ: Stable mild right hydronephrosis of uncertain etiology or significance Heme/Onc Anemia History of Non-Hodgkin's lymphoma Neuro Bipolar disorder Dementia Alert but confused Endocrine Glycemic control Prophylaxis Plan Supplemental O2 to maintain O2 saturations 90-94% discussed with RT Optiflow or NIPPV for increased work of breathing - currently optiflow 60/60 sat 100% : will wean FIO2 conscious proning is ideal however given pt confusion aborted Combivent inhaler Mucinex 1200mg BID IS/FV COVID order set Cardiology is following prior and now signed off cardiology signed off placed pt on Coreg, asa and lisinopril ( however I stopped it due to rising renal fx) needs improved BP control defer to attending Worsening renal function bladder scan hold bactrim dw nursing , ID to be notified prior US with mild hydro +/- nephrology consult defer to attending currently not on IVF ID consulted Abx Rocephin prior doxy Dexamethasone 10mg BID x5 days, then 10mg daily x5 days Remedesivir Actemra IV : given 06/10 Bactrim, stopped , defer to ID for further recs ( started on atovaquone ) check strongyloides pending Lactobacillus Monitor ammonia level if needed start rifaximin Hypernatremia D5W @75mL/hr prior as well as free water, all antibiotics to D5W as able Pt was on lithium/ stopped Nutrition per primary Glycemic control per primary Prophylaxis: Protonix and Lovenox 115mg Q12H adjust dose for worsening renal fx AM labs/CXR check CK in am consider renal consult Full Code prognosis : guarded : high risk for deterioration and need for mechanical vent cele montgomery cct 34 mins documented in this encounter Plan of Treatment Not on file documented as of this encounter Visit Diagnoses Not on filedocumented in this encounter
--- OUTSIDE RECORDS SUMMARY | 2025-03-08 13:14 | XMS_ITS | Encounter Summary ---
Author Organization [employer] ([place], [place], [place], [place]) Address [address] [place] [address] Care Team Providers Care Pv Design And Installation Technician Name Role Phone Unavailable Primary Care Provider Unavailabl e Encounter Details Date Type Department Care Team (Late st Contact Info) Description 06/07/2021 Transcribed Document [facility] [place] [address] [place] [address] ProviderTg MD [address] [place] [address] Social History Tobacco Use Types Packs/Day Years Used Date Smoking Tobacco: Never Assessed Comments Unknown Sex and Gender Information Value Date Recorded Sex Assigned at Not on file Legal Sex Female 2:39 PM CDT Gender Identity Not on file Sexual Orientation Not on file documented as of this encounter Miscellaneous Notes * Cerner Conversion Note - Tg Jones MD - 06/07/2021 10:55 AM CDT Patient: SUDHA TIMMONS Age: 75 years Sex: Female : 1945 Associated Diagnoses: Acute UTI; Sepsis Author: LEW ADKINS MD Basic Information Time seen: Immediately upon arrival. History source: Patient. Arrival mode: Private vehicle. History limitation: None. History of Present Illness The patient presents with altered mental status. The onset was unknown and last seen normal yesterday by her son, found this morning on the cough lethargic and altered. Urinated on herself, no witnessed seizure activity.. The character of symptoms is decreased responsiveness. The degree at onset was moderate. The degree at present is moderate. Baseline status: alert and oriented X 4. Risk factors consist of hypertension and bipolar. Associated symptoms: nausea, fatigue, denies fever, denies chills, denies vomiting, denies shortness of breath, denies abdominal pain, denies chest pain, denies headache, denies dizziness, denies diarrhea, denies rash, denies syncope, denies injury and denies seizure. Review of Systems Constitutional symptoms: Weakness, fatigue, no fever, no chills, no sweats. Skin symptoms: No rash, Eye symptoms: Vision unchanged, no pain, no discharge, no blurred vision. ENMT symptoms: No ear pain, no sore throat, no nasal congestion. Respiratory symptoms: No shortness of breath, no cough. Cardiovascular symptoms: No chest pain, no palpitations, no syncope. Gastrointestinal symptoms: Nausea, no abdominal pain, no vomiting, no diarrhea. Genitourinary symptoms: No dysuria, no hematuria. Musculoskeletal symptoms: No back pain, no Joint pain. Neurologic symptoms: No headache, no dizziness, no numbness, no weakness. Health Status Allergies: Allergic Reactions (Selected) Severity Not Documented Anaprox- Rash. Codeine- No reactions were documented. Latex- Itching. Naproxen- No reactions were documented.. Medications: (Selected) Inpatient Medications Ordered Normal Saline Flush: 10 mL, IV Push, See Comment Prescriptions Prescribed Metoprolol Tartrate 50 mg oral tablet: 1 Tab, Oral, BID, for 30 Day(s), 60 Tab, 0 Refill(s) aspirin 81 mg oral delayed release tablet: 1 Tab, Oral, Daily, for 30 Day(s), 30 Tab, 0 Refill(s) atorvastatin 40 mg oral tablet: 1 Tab, Oral, At Bedtime, for 30 Day(s), 30 Tab, 0 Refill(s) lisinopril 5 mg oral tablet: 0.5 Tab, Oral, Daily, for 30 Day(s), 15 Tab, 0 Refill(s) Documented Medications Documented Cogentin: 1 mg, Oral, At Bedtime, 0 Refill(s) Non Formulary Medication: 1 Tab, Oral, Daily, Alive Women's Energy Multivitamin, 0 Refill(s) PriLOSEC 20 mg oral delayed release capsule: 1 Cap, Oral, Daily, before a meal, 30 Cap, 0 Refill(s) SEROquel 100 mg oral tablet: 3 Tab, Oral, At Bedtime, 0 Refill(s) Tylenol Extra Strength 500 mg oral tablet: 1 Tab, Oral, Q4H, PRN: for pain, 60 Tab, 0 Refill(s) diphenhydrAMINE 25 mg oral capsule: 1 Cap, Oral, TID, PRN: for itching, 30 Cap, 0 Refill(s) escitalopram 20 mg oral tablet: 1 Tab, Oral, Daily, 30 Tab, 0 Refill(s) furosemide 20 mg oral tablet: 1 Tab, Oral, Daily, 0 Refill(s) lamoTRIgine 200 mg oral tablet: 1 Tab, Oral, Daily, 0 Refill(s) potassium chloride 10 mEq oral capsule, extended release: 1 Cap, Oral, BID, 30 Cap, 0 Refill(s). Past Medical/ Family/ Social History Surgical history: heart cath in 2007 at 62 Years. bilateral breast reduction in 1992 at 47 Years. DAIJA in 1983 at 38 Years. tubal in 1971 at 26 Years. x 2. 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 sciatic nerve surgery. Power port placement., Reviewed as documented in chart. Family history: No family history items have been selected or recorded., Reviewed as documented in chart. Social history: Social & Psychosocial Habits Alcohol 06/05/2016 Alcohol Use History, Social Habits No Employment/School 06/05/2016 Status: Retired Previous employment/school: [employer] Home/Environment 06/05/2016 Lives with: 94 y/o father Living situation: Home/Independent Home equipment: Walker/Cane, shower chair Alcohol abuse in household: No Substance abuse in household: No Smoker in household: No Injuries/Abuse/Neglect in household: No Feels unsafe at home: No Family/Friends available to help: Yes Nutrition/Health 06/05/2016 Type of diet: Regular Caffeine intake amount: Coffee, soda daily Substance Abuse 06/05/2016 Recreational Drug Use History No Recreational Drug Use Last 12 Months No Tobacco 06/05/2016 Smoking Status Never smoker Second Hand Smoke Exposure Yes , Reviewed as documented in chart. Problem list: Active Problems (15) At risk for sleep apnea Bipolar I disorder, current or most recent episode depressed, with psychotic features with catatonia Concussion Depression Fall H/O non-Hodgkin's lymphoma Hip pain, right HTN (hypertension) Insomnia Leg pain, right Numbness and tingling Osteoarthritis Pain sleep apnea Tremor , per nurse's notes. Physical Examination Vital Signs Oxygen saturation. General: No acute distress, lethargic. Tori coma scale: Eye response: 4 /4, verbal response: 5 /5, motor response: 6 /6, Total score: Total score: 15. Neurological: Alert and oriented to person, place, time, and situation, No focal neurological deficit observed, CN II-XII intact, generalized weakness. Skin: Warm. Head: Normocephalic, atraumatic. Neck: Supple, no tenderness. Eye: Pupils are equal, round and reactive to light, extraocular movements are intact, Sclera: not icteric. Ears, nose, mouth and throat: Oral mucosa moist. Cardiovascular: Regular rate and rhythm, No murmur, Normal peripheral perfusion, No edema. Respiratory: Lungs are clear to auscultation, respirations are non-labored, breath sounds are equal. Chest wall: No tenderness. Back: Nontender. Gastrointestinal: Soft, Nontender, Non distended, Normal bowel sounds. Lymphatics: No lymphadenopathy. Psychiatric: Cooperative. Medical Decision Making Documents reviewed: Emergency department nurses' notes. Electrocardiogram: Time 06/07/2021 10:56:00, rate 138, No ST changes, no ectopy, normal OR & QRS intervals, EP Interp, sinus tachycardia, LAD, no ischemic changes, no STEMI. Results review: Lab results : Lab Results 06/07/2021 11:25 EDT Ammonia Level 33.0 uMol/L HI Lactic Acid Level 1.0 mmol/L WBC 6.3 K/uL RBC 3.12 Million/uL LOW Hgb 10.4 g/dL LOW Hct 32.4 % LOW MCV 103.8 fL HI MCH 33.3 pg HI MCHC 32.1 Gram/dL LOW Platelet Count 207 K/uL MPV 10.6 fL RDW 12.6 % Neut % 84.7 % HI Neut # 5.31 K/uL Lymph % 8.8 % LOW Lymph # 0.55 x10(3)/uL LOW Forrest % 5.7 % Forrest # 0.36 K/uL Eos % 0.2 % Eos # 0.01 x10(3)/uL Baso % 0.0 % Baso # 0.00 x10(3)/uL Slide Review No IG# 0.04 x10(3)/uL IG% 0.60 % PT 11.4 Second(s) INR 1.1 PTT 23.2 Second(s) Urine Type. U Cath Urine Color Bing Urine Appearance Turbid Urine Specific [place] 1.012 Urine pH Dipstick 6.0 Urine Leukocyte Esterase Large Urine Nitrite Positive Urine Protein Dipstick 100 Urine Glucose Dipstick Negative Urine Ketones Dipstick 15 Urine Urobilinogen Dipstick 0.2 EU/dL Urine Bilirubin Dipstick Negative Urine Blood Dipstick Moderate Ur RBC 0-2 /HPF Ur WBC TNTC /HPF Ur WBC Clumps Present Ur Bacteria 4+ Ur Squamous Epithelial Cells 2-5 /HPF Urine Culture if Indicated Culture Ordered Acetaminophen Level <2.0 mcg/mL LOW Bono Level 0.3 mmol/L LOW Salicylate <1.7 mg/dL LOW UDS pH 6.0 UDS Amp NEGATIVE UDS Stephy NEGATIVE UDS Benzo NEGATIVE UDS Javi NEGATIVE UDS Opi NEGATIVE UDS PCP NEGATIVE UDS TCA NEGATIVE UDS THC NEGATIVE 06/07/2021 11:05 EDT pH Art 7.48 HI pCO2 Art 31.1 mmHg LOW pO2 Art 78.6 mmHg LOW HCO3 Art 22.9 mmol/L BE Art -0.2 mmol/L sO2 Art 96.3 % tHb Art 11.0 Gram/dL LOW FHHb 3.6 % NA ctO2 14.7 mmol/L NA Delivery Device Type Art Cannula Temperature, F Art 98.6 Deg F NA Art Blood Gas (ABG) Site Right Radial Acceptable Kevin's Test Art Acceptable Ventilator Mode Art N/A Oxygen Flow Rate Art 2.0 Liter NA ABG Num of Draw Attempts 1 NA . Radiology results: Radiology Results (Last 48 hours) [id number] -- 06/07/2021 10:50 CT Head WO (06/07/2021 12:09) Result: CT [...] interpreted, and dictated by Jacquie Clemente MD . Impression and Plan Diagnosis Acute UTI - Discharge, Medical Sepsis - Discharge, Medical Plan Condition: Guarded. Disposition: Admit Admit/Transfer/Discharge: Admit to Inpatient (Order): Start: 06/07/2021 12:36 EDT, Admit reason: UTI, sepsis, Estimated length of stay 2 Midnights or LONGER, Level of Care: Med-Surg with telemetry, Admitting: MARY BARRAGAN DO. Counseled: Patient, Regarding diagnosis, Regarding diagnostic results, Regarding treatment plan, Patient indicated understanding of instructions. Notes: Patient presented with generalized weakness and lethargy. Found to be febrile and tachycardic with signs of sepsis. Acute urinary tract infection found on UA. Given IV fluids, Tylenol, and Rocephin. Discussed with hospitalist who accepts admission for further evaluation and care.. documented in this encounter Plan of Treatment Not on file documented as of this encounter Visit Diagnoses Not on filedocumented in this encounter
--- OUTSIDE RECORDS SUMMARY | 2025-03-08 13:15 | XMS_ITS | Clinical Summary ---
Author Organization Healthcare Address [address] [place] [address] Care Team Providers Care Channel Cementer Name Role Phone Trevor Chappell MD Primary Care Provider Allergies Active Allergy Reactions Criticality Noted Date Comments Naproxen Itching Medium 06/07/2023 Latex Rash Low 06/07/2023 Family History Medical History Relation Name Comments Cataracts Father Other cancer Father Hypertension Other Diabetes Sister Relation Name Status Comments Father Other Sister Social History Tobacco Use Types Packs/Day Years Used Date Smoking Tobacco: Never Alcohol Use Standard Drinks/Week Comments No 0 (1 standard drink = 0.6 oz pur e alcohol) Comments Unknown Sex and Gender Information Value Date Recorded Sex Assigned at Not on file Legal Sex Female 7:50 PM EDT Gender Identity Not on file Sexual Orientation Not on file Last Filed Vital Signs Vital Sign Reading Time Taken Comments Blood Pressure 128/79 06/10/2023 3:35 PM EDT Pulse 65 06/10/2023 3:35 PM EDT Temperature - - Respiratory Rate 19 06/10/2023 1:45 PM EDT Oxygen Saturation 98% 06/10/2023 2:05 PM EDT Inhaled Oxygen Concentration - - Weight 86.2 kg (190 lb) 06/10/2023 1:25 PM EDT Height 175.3 cm (5' 9 ) 06/10/2023 1:25 PM EDT Body Mass Index 28.06 06/10/2023 1:25 PM EDT Plan of Treatment Health Maintenance Due Date Last Done Comments [facility]-Bone Density Scan 1945 [facility]-Depression Screening 1945 [facility]-Hepatitis C Screening 1945 [facility]-Medicare Annual Wellness (AWV) 1945 [facility]-/Child/Adol SDOH Screenings 1945 [facility]-Obesity Intervention 1953 [facility]- SDOH Screenings 1965 [facility]-Adult SDOH Screenings 1965 [facility]-DTaP,Tdap,and Td Vaccine s (1 - Tdap) 1966 [facility]-Zoster Vaccines (1 of 2) 1997 [facility]-RSV Vaccine: 60+ Years o r (1 - 1-dose 75+ series) 2022 [facility]-Pneumococcal Vaccine: 50 + Years (2 of 2 - PCV) 07/09/2023 07/09/2022, 08/31/2017, 09/09/2013 [id number] Vaccine (2023- season) 2024 07/17/2021, 12/27/2020, 11/26/2020 [facility]-Influenza Vaccine (#1) 04/30/202506/30, 09/20/2017, 06/09/2015 HPV Vaccines Aged Out No longer eligi ble based on patient's age to complete this topic [facility]-HIB Vaccines Aged Out No longer e ligible based on patient's age to complete this topic [facility]-Hepatitis A Vaccines Aged Out No longer eligible based on patient's age to complete this topic [facility]-IPV Vaccines Aged Out No longer e ligible based on patient's age to complete this topic [facility]-Rotavirus Vaccines Aged Out No lo nger eligible based on patient's age to complete this topic [place] [phone] ANTHEM Care Teams Channel Cementer Relationship Specialty Start Date End Date Trevor Chappell MD [address] [place], [place] [address] PCP - General 06/10/23
--- OUTSIDE RECORDS SUMMARY | 2025-03-08 13:15 | XMS_ITS | Encounter Summary ---
Author Organization [employer] ([place], [place], [place], [place]) Address [address] [place] [address] Care Team Providers Care Acute Care Registered Nurse Name Role Phone Unavailable Primary Care Provider Unavailabl e Encounter Details Date Type Department Care Team (Late st Contact Info) Description 06/19/2021 Transcribed Document [facility] [place] [address] [place] [address] ProviderTg MD [address] [place] [address] Social History Tobacco Use Types Packs/Day Years Used Date Smoking Tobacco: Never Assessed Comments Unknown Sex and Gender Information Value Date Recorded Sex Assigned at Not on file Legal Sex Female 2:39 PM CDT Gender Identity Not on file Sexual Orientation Not on file documented as of this encounter Miscellaneous Notes * Cerner Conversion Note - Tg Jones MD - 06/19/2021 10:09 AM CDT Patient: SUDHA SOLORZANO Age: 75 Years Sex: Female : 1945 Assessment 75-year-old female with a protracted respiratory illness related to Covid, pulmonary embolism, and encephalopathy since admission. She has improved and MRI does not show acute ischemia. She has underlying psych and cognitive issues. I suspect her medical illness has caused a decline in her function. I will initiate continuous EEG monitoring to make sure not dealing with seizures. There are no significant metabolic abnormalities at this time. She has a history of cognitive impairment and psychiatric issues and at baseline. CT head on admission was normal. MRI of the brain is pending. Seroquel is as needed for agitation, she has not received it in the last 24 hours. I discussed her condition with Shawn family member, he says she is improved but not at her baseline. There does not appear to be significant metabolic issues at this time. I would like to be notified of any significant change in Neuro status. Further recommendations will be based on test results, critical care cns communication, and clinical course. Ordered MRI brain Subjective No significant change Presentation: 75-year-old female with a history of lymphoma, hospitalized with Covid. We are asked to see her for encephalopathy. She was confused on admission June 07 and has remained so since. In addition she has a history of psychiatric issues including catatonia. 75 year old female with PMH significant for Non-Hodgkin's lymphoma, dementia, and hypertension. History is taken via chart review as patient is unable to participate. Per chart patient presented with lethargy and dysuria. Her 98 year old father tested positive for COVID-19 before she did. Upon arrival patient was tachycardic and hypertensive. [...] on Optiflow. She is alert but confused. I have spent 36 minutes on this case today. Over half of that time was spent reviewing the chart, discussion with care givers, and counseling, reviewing and discussion with consulting MDs. Review of Systems Unable Physical Exam Mental Status: Paucity of speech, mild to moderate confusion Cranial Nerves: II through XII intact and symmetric Motor: Strength 5/5 bilateral, normal tone and mass Sensory: Responds in all 4 toe touch Reflexes symmetric, toes down Cerebellar: no abnormal movements Gait: not tested due to pt condition Psychiatric: negative Musculoskeletal: negative Lab Lab TSH slightly low, B12 adequate, ammonia normal Studies personally reviewed Imaging MRI brain atrophy without acute ischemia CT head 10???9 no significant abnormality Studies personally reviewed documented in this encounter Plan of Treatment Not on file documented as of this encounter Visit Diagnoses Not on filedocumented in this encounter
--- OUTSIDE RECORDS SUMMARY | 2025-03-08 13:15 | XMS_ITS | Encounter Summary ---
Author Organization [employer] ([place], [place], [place], [place]) Address [address] [place] [address] Care Team Providers Care Copy Cutter Name Role Phone Unavailable Primary Care Provider Unavailabl e Encounter Details Date Type Department Care Team (Late st Contact Info) Description 06/14/2021 Transcribed Document [facility] [place] [address] [place] [address] ProviderTg MD [address] [place] [address] Social History Tobacco Use Types Packs/Day Years Used Date Smoking Tobacco: Never Assessed Comments Unknown Sex and Gender Information Value Date Recorded Sex Assigned at Not on file Legal Sex Female 2:39 PM CDT Gender Identity Not on file Sexual Orientation Not on file documented as of this encounter Miscellaneous Notes * Cerner Conversion Note - Tg ProviderMD - 06/14/2021 2:00 AM CDT Crane Operator Details Entered On: 06/14/2021 3:58 EDT Performed On: 06/14/2021 2:00 EDT by Ran Chew RN-PATIENT CARE BEDSIDE NON-EXEMPT Order Details Transport Mode Order Detail : Bed (including specialty) Isolation Precautions Order Detail : Airborne precautions, Contact precautions, Droplet precautions Order Detail : N/A IV Order Detail : 1 Oxygen Order Detail : 1 Nurse Collect Order Detail : 1 Lift/Transfer : Maximal assist Central Line Order Detail : Yes Room Service : Not Appropriate Arterial Line : No Patient Needs Meds Crushed/Liquid : Yes Meds Administered Via Tube : Yes Ran Chew RN-PATIENT CARE BEDSIDE NON-EXEMPT - 06/14/2021 3:58 EDT documented in this encounter Plan of Treatment Not on file documented as of this encounter Visit Diagnoses Not on filedocumented in this encounter
--- OUTSIDE RECORDS SUMMARY | 2025-03-08 13:15 | XMS_ITS | Encounter Summary ---
Author Organization [employer] ([place], [place], [place], [place]) Address [address] [place] [address] Care Team Providers Care Mutuel Machine Operator Name Role Phone Unavailable Primary Care Provider Unavailabl e Encounter Details Date Type Department Care Team (Late st Contact Info) Description 06/14/2021 Transcribed Document [facility] [place] Family Medicine [address] [place] [address] ProviderTg MD [address] [place] [address] Social History Tobacco Use Types Packs/Day Years Used Date Smoking Tobacco: Never Assessed Comments Unknown Sex and Gender Information Value Date Recorded Sex Assigned at Not on file Legal Sex Female 2:39 PM CDT Gender Identity Not on file Sexual Orientation Not on file documented as of this encounter Miscellaneous Notes * Cerner Conversion Note - Tg Jones MD - 06/14/2021 7:51 AM CDT Patient: SUDHA TIMMONS Age: 75 Years Sex: Female : 1945 Assessment/Plan 1. Multifactorial ATN secondary to infection/contrast-induced nephropathy in setting of being on DEMETRI inhibitors 2. Hypernatremia 3. Mild acidosis, non-anion gap secondary to REBECCA 4. PE 5. 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 time -Thanks for consultation, follow along with you Dr Lee Snyder Cell phone : [phone] [place] [address] phone : [phone] VTE Prophylaxis - Medical Enoxaparin 115 mg, SubCutaneous, Inj, [id number], Routine, Start 06/12/21 9:00:00 EDT, 06/09/21 21:00:00 EDT (SHAKA ZENDEJAS) Sequential Compression Device Start: 06/07/21 14:19:00 EDT, Bilateral, Length: Knee High, While patient is in bed, Continuous Order (CARA DE LA ROSA) Subjective Patient was seen and evaluated by bedside Vital Signs T: 37.1 ??C TMIN: 36.6 ??C TMAX: 37.1 ??C HR: 124(Monitored) RR: 18 BP: 132/76 SpO2: 93% Oxygen Settings (Last) Oxygen Therapy Mode: High humidity, high flow therapy (06/14/21 05:40:00) Oxygen Flow Rate: 50 Liter/Min (06/14/21 05:40:00) Intake & Output Totals Last 24 Hours (7a-7a) Input Total: 361 mL Output Total: 1200 mL Balance: -839 mL Physical Exam GENERAL APPEARANCE: This is an elderly female, who is in no apparent respiratory distress. HEENT: Head and neck; normocephalic, atraumatic. Pupils reactive to light and accommodation. Extraocular muscles intact. Mucous membranes pink and moist. NECK: Supple. There is no JVD. No carotid bruit. No lymphadenopathy. No thyroid masses were palpable in the neck. CHEST: The patient has good respiratory effort. No accessory muscle use. Air entry adequate bilaterally. HEART: First and second heart sounds heard. There is no murmur. ABDOMEN: Soft, nontender. NEUROLOGIC: The patient is awake, communicating. No focal deficits. Medications aspirin, 81 mg= 1 Tab, Oral, Daily atovaquone, 750 mg= 5 mL, Oral, BID cefTRIAXone Combivent Respimat CFC free 100 mcg-20 mcg/inh inhalation aerosol, 2 Puff, Inhalation, RT_QID Coreg, 6.25 mg= 1 Tab, Oral, BID cyanocobalamin, 1000 mcg= 1 mL, IntraMuscular, Daily dexAMETHasone, 10 mg= 1 mL, IV Push, Daily hydrOXYzine hydrochloride, 25 mg= 1 Tab, Oral, At Bedtime, PRN labetalol, 10 mg= 2 mL, IV Push, Q3H, PRN lactobacillus acidophilus, 1 Cap, Oral, Daily Lopressor, 5 mg= 5 mL, IV Push, Q3H, PRN Lovenox, 115 mg= 0.77 mL, 1 mg/kg, SubCutaneous, [id number] micafungin oxyCODONE, 5 mg= 1 Tab, Oral, Q4H, PRN Pepcid, 20 mg= 1 Tab, Oral, Daily rifAXIMin, 550 mg= 1 Tab, Oral, BID Robitussin, 1200 mg= 60 mL, PEG Tube, BID SEROquel, 25 mg= 1 Tab, Oral, [id number] Zofran, 4 mg= 2 mL, IV Push, Q4H, PRN Lab Results Test Name Test Result Date/Time Sodium Level 146 mmol/L 06/14/2021 06:26 EDT Potassium Level 3.9 mmol/L 06/14/2021 06:26 EDT Chloride Level 119 mmol/L (High) 06/14/2021 06:26 EDT Carbon Dioxide Level 22 mmol/L 06/14/2021 06:26 EDT Anion Gap 9 06/14/2021 06:26 EDT Glucose Level 178 mg/dL (High) 06/14/2021 06:26 EDT Blood Urea Nitrogen 49 mg/dL (High) 06/14/2021 06:26 EDT Creatinine Level 1.30 mg/dL (High) 06/14/2021 06:26 EDT eGFR 49 mL/min/1.73m2 (Low) 06/14/2021 06:26 EDT eGFR NonAfrican 40 mL/min/1.73m2 (Low) 06/14/2021 06:26 EDT Bun/Creatinine 37.7 (High) 06/14/2021 06:26 EDT Calcium Level 8.6 mg/dL 06/14/2021 06:26 EDT Magnesium Level 2.5 mg/dL (High) 06/14/2021 06:26 EDT Device Comment 1 Notified Nurse RBV 06/14/2021 05:56 EDT Device Comment 1 Notified Nurse RBV 06/14/2021 00:09 EDT Device Comment 1 Notified Nurse RBV 06/13/2021 17:08 EDT Device Comment 1 Notified Nurse RBV 06/13/2021 10:39 EDT Glucose POC2 175 mg/dL (High) 06/14/2021 05:56 EDT Glucose POC2 163 mg/dL (High) 06/14/2021 00:09 EDT Glucose POC2 203 mg/dL (High) 06/13/2021 17:08 EDT Glucose POC2 155 mg/dL (High) 06/13/2021 10:39 EDT CRP 1.44 mg/dL (High) 06/14/2021 06:26 EDT Lactate Dehydrogenase 698 Units/Liter (High) 06/14/2021 06:26 EDT CK 1039 Units/Liter (High) 06/14/2021 06:26 EDT Troponin I Ultra 0.438 ng/mL (High) 06/14/2021 06:26 EDT WBC 12.3 K/uL (High) 06/14/2021 06:00 EDT RBC 3.14 Million/uL (Low) 06/14/2021 06:00 EDT Hgb 10.4 g/dL (Low) 06/14/2021 06:00 EDT Hct 32.6 % (Low) 06/14/2021 06:00 EDT MCV 103.8 fL (High) 06/14/2021 06:00 EDT MCH 33.1 pg (High) 06/14/2021 06:00 EDT MCHC 31.9 Gram/dL (Low) 06/14/2021 06:00 EDT Platelet Count 212 K/uL 06/14/2021 06:00 EDT MPV 12.4 fL 06/14/2021 06:00 EDT RDW 12.4 % 06/14/2021 06:00 EDT Neut % 88.1 % (High) 06/14/2021 06:00 EDT Neut # 10.80 K/uL (High) 06/14/2021 06:00 EDT Lymph % 5.1 % (Low) 06/14/2021 06:00 EDT Lymph # 0.63 x10(3)/uL (Low) 06/14/2021 06:00 EDT [place] % 3.4 % 06/14/2021 06:00 EDT [place] # 0.42 K/uL 06/14/2021 06:00 EDT Eos % 2.3 % 06/14/2021 06:00 EDT Eos # 0.28 x10(3)/uL 06/14/2021 06:00 EDT Baso % 0.2 % 06/14/2021 06:00 EDT Baso # 0.02 x10(3)/uL 06/14/2021 06:00 EDT nRBC 0.090 (High) 06/14/2021 06:00 EDT Slide Review No 06/14/2021 06:00 EDT IG# 0.11 x10(3)/uL (High) 06/14/2021 06:00 EDT IG% 0.90 % (High) 06/14/2021 06:00 EDT D Dimer Quant 2.36 mg/L FEU (High) 06/14/2021 06:00 EDT Ferritin Level 2033.5 ng/mL (High) 06/14/2021 06:26 EDT Electronically signed by Keven, [facility] Conversion Broommaker Cerner at 12/18/2022 9:09 AM CDT documented in this encounter Plan of Treatment Not on file documented as of this encounter Visit Diagnoses Not on filedocumented in this encounter
--- OUTSIDE RECORDS SUMMARY | 2025-03-08 13:15 | XMS_ITS | Encounter Summary ---
Author Organization [employer] ([place], [place], [place], [place]) Address [address] [place] [address] Care Team Providers Care Chef Concierge Name Role Phone Unavailable Primary Care Provider Unavailabl e Encounter Details Date Type Department Care Team (Late st Contact Info) Description 06/09/2021 Transcribed Document [facility] [place] Family Medicine [address] [place] [address] ProviderTg MD [address] [place] [address] Social History Tobacco Use Types Packs/Day Years Used Date Smoking Tobacco: Never Assessed Comments Unknown Sex and Gender Information Value Date Recorded Sex Assigned at Not on file Legal Sex Female 2:39 PM CDT Gender Identity Not on file Sexual Orientation Not on file documented as of this encounter Miscellaneous Notes * Cerner Conversion Note - Historical ProviderMD - 06/09/2021 2:00 AM CDT Ehr Trainer Details Entered On: 06/09/2021 2:11 EDT Performed On: 06/09/2021 2:00 EDT by Ran Chew RN-PATIENT CARE BEDSIDE NON-EXEMPT Order Details Isolation Precautions Order Detail : Airborne precautions, Contact precautions, Droplet precautions Order Detail : N/A IV Order Detail : 1 Oxygen Order Detail : 1 Nurse Collect Order Detail : 1 Lift/Transfer : Maximal assist Central Line Order Detail : No Room Service : Not Appropriate Arterial Line : No Patient Needs Meds Crushed/Liquid : No Ran Chew RN-PATIENT CARE BEDSIDE NON-EXEMPT - 06/09/2021 2:11 EDT Electronically signed by Julian Baca Conversion [employer] Assistant Football Coach Arlenener at 12/18/2022 9:10 AM CDT documented in this encounter Plan of Treatment Not on file documented as of this encounter Visit Diagnoses Not on filedocumented in this encounter
--- OUTSIDE RECORDS SUMMARY | 2025-03-08 13:15 | XMS_ITS | Encounter Summary ---
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 Name Role Phone Unavailable Primary Care Provider Unavailabl e Encounter Details Date Type Department Care Team (Late st Contact Info) Description 06/09/2021 Transcribed Document [facility] Pulm & Critical Care Medicine [address] [place] [address] Nadiya Montgomery MD [address] [place], [place] [id number] Social History Tobacco Use Types Packs/Day Years Used Date Smoking Tobacco: Never Assessed Comments Unknown Sex and Gender Information Value Date Recorded Sex Assigned at Not on file Legal Sex Female 2:39 PM CDT Gender Identity Not on file Sexual Orientation Not on file documented as of this encounter Miscellaneous Notes * Cerner Conversion Note - Nadiya Montgomery MD - 06/09/2021 2:32 PM EDT Patient: SUDHA TIMMONS Age: 75 years Sex: Female : 1945 Associated Diagnoses: None Author: NADIYA MONTGOMERY MD Date of admission: 06/07/21 Date of consult: 06/09/21 Reason for consult: Respiratory failure Requested by: KAYLAN Dial Basic Information CC: respiratory failure HPI: Patient [...] drug use. Family History: Father still living Review of Systems Unable to obtain: Due to clinical condition, Due to altered mental status. Health Status Allergies: Allergic Reactions (Selected) Severity Not Documented Anaprox- Rash. Codeine- No reactions were documented. Latex- Itching. Naproxen- No reactions were documented., Allergies (4) Active Reaction Anaprox Rash codeine None Documented Latex Itching naproxen None Documented Current medications: (Selected) Inpatient Medications Ordered Core.25 mg, Oral, BID DuoNeb 0.5 mg-2.5 mg/3 mL inhalation solution: 3 mL, Nebulized Inhalation, RT_Q4H Lopressor: 5 mg, IV Push, Q6H, PRN: Tachycardia Lovenox: 115 mg, SubCutaneous, [id number] Zofran: 4 mg, IV Push, Q4H, PRN: Nausea aspirin: 81 mg, Oral, Daily cefTRIAXone: 2 Gram, 100 mL/Hr, IV Piggyback, [id number] cloNIDine: 0.1 mg, Oral, Q4H, PRN: Hypertension dexAMETHasone: 10 mg, IV Push, Daily doxycycline: 100 mg, Oral, BID hydrALAZINE: 10 mg, IV Push, Q6H, PRN: Hypertension hydrOXYzine hydrochloride: 25 mg, Oral, At Bedtime, PRN: Sleep lactulose: 20 Gram, Oral, Q6H lisinopril: 2.5 mg, Oral, Daily lithium: 300 mg, Oral, BID pantoprazole: 40 mg, Oral, Daily potassium bicarbonate 20 mEq oral tablet, effervescent: 20 mEq, 1 Tab, Oral, 1-Time remdesivir: 250 mL/Hr, IV Piggyback, [id number] Documented Medications Documented Aspirin Low Dose 81 [...] Oral, Daily, 30 Cap, 0 Refill(s), Medications (18) Active Scheduled: (13) albuterol-ipratropium inh 3 mL 3 mL, Nebulized Inhalation, RT_Q4H aspirin EC 81 mg tab 81 mg 1 Tab, Oral, Daily carvedilol 6.25 mg tab 6.25 mg 1 Tab, Oral, BID cefTRIAXone 2 Gram, IV Piggyback, [id number] dexAMETHasone 10 mg/1 mL inj 10 mg 1 mL, IV Push, Daily doxycycline hyclate 100 mg cap 100 mg 1 Cap, Oral, BID enoxaparin 150 mg/1 mL inj 115 mg 0.77 mL, SubCutaneous, [id number] lactulose 20 g/30 mL oral liq 20 Gram 30 mL, Oral, Q6H lisinopril 5 mg tab 2.5 mg 0.5 Tab, Oral, Daily lithium carbonate 300 mg cap 300 mg 1 Cap, Oral, BID pantoprazole EC 40 mg tab 40 mg 1 Tab, Oral, Daily potassium bicarb efferves 20 mEq dis tab 20 mEq 1 Tab, Oral, 1-Time remdesivir , IV Piggyback, [id number] Continuous: (0) PRN: (5) cloNIDine 0.1 mg tab 0.1 mg 1 Tab, Oral, Q4H hydrALAZINE 20 mg/1 mL inj 10 mg 0.5 mL, IV Push, Q6H hydrOXYzine hcl 25 mg tab 25 mg 1 Tab, Oral, At Bedtime metoprolol 5 mg/5 mL inj 5 mg 5 mL, IV Push, Q6H ondansetron 4 mg/2 mL inj 4 mg 2 mL, IV Push, Q4H Problem list: All Problems HTN (hypertension) / SNOMED CT 0922110290 / Confirmed Depression / SNOMED CT 4327287510 / Confirmed Insomnia / SNOMED CT 664906884 / Confirmed Hip pain, right / SNOMED CT 7315750194 / Confirmed Pain / SNOMED CT 60608819 / Confirmed right buttocks pain Leg pain, right / SNOMED CT 463605210 / Confirmed Numbness and tingling / SNOMED CT 9041242288 / Confirmed numbness and tingling right thigh area to toes Osteoarthritis / SNOMED CT 3447027655 / Confirmed Concussion / SNOMED CT 9672512993 / Confirmed concussion with loss of memory+ Tremor / SNOMED CT 91890607 / Confirmed Fall / SNOMED CT 1659483 / Confirmed sleep apnea / SNOMED CT 906517259 / Confirmed At risk for sleep apnea / IMO 25288605 / Confirmed Disease caused by 2019 novel coronavirus / SNOMED CT 9514739449 / Confirmed Problem added by a rule: [id number]. H/O non-Hodgkin's lymphoma / SNOMED CT 8455045407 / Confirmed Bipolar I disorder, current or most recent episode depressed, with psychotic features with catatonia / SNOMED CT 83296295 / Confirmed, Active Problems (16) At risk [...] 24 hrs) Last Charted Minimum Maximum Temp 98.7 (JUN 09 09:49) 97.8 (JUN 09 01:28) 98 (JUN 08 15:00) Apical HR H 122 (JUN 09 12:18) H 122 (JUN 09 10:36) H 130 (JUN 09 04:28) Mon HR 101 (JUN 09 11:03) 101 (JUN 09 11:03) 133 (JUN 09 09:02) Resp Rate 16 (JUN 09 09:49) 16 (JUN 09 09:49) 18 (JUN 08 20:57) SBP 134 (JUN 09 09:49) 119 (JUN 09 01:28) H 152 (JUN 08 17:30) DBP 79 (JUN 09 09:49) 74 (JUN 09 09:02) H 126 (JUN 08 17:30) MAP 96 (JUN 09 09:49) 82 (JUN 09 09:02) 135 (JUN 08 17:30) SpO2 L 90 (JUN 09 11:03) L 78 (JUN 08 13:45) 100 (JUN 08 20:13) General: No acute distress, On Optiflow . [...] review: Labs (Last four charted values) WBC 9.3 (JUN 09) 6.5 (JUN 08) 6.3 (JUN 07) HB L 11.0 (JUN 09) L 9.9 (MAY 10) L 10.4 (JUN 07) HCT 34.2 (JUN 09) L 30.3 (MAY 10) L 32.4 (MAY 09) Plt 276 (MAY 11) 220 (MAY 10) 207 (MAY 09) Na H 149 (MAY 11) H 147 (JUN 08) 142 (MAY 09) K 3.8 (JUN 09) 3.6 (JUN 08) L 3.2 (JUN 07) Cl H 120 (MAY 11) H 120 (JUN 08) 111 (JUN 07) CO2 22 (JUN 09) 21 (JUN 08) 22 (JUN 07) BUN 18 (JUN 09) 13 (JUN 08) 14 (JUN 07) Cr 1.00 (JUN 09) 0.60 (JUN 08) 0.80 (JUN 07) Glu R H 115 (JUN 09) 106 (JUN 08) H 117 (JUN 07) Ca 9.3 (JUN 09) 8.9 (JUN 08) 8.8 (JUN 07) Lactic 1.0 (JUN 07) PT 11.4 (JUN 08) 11.4 (JUN 07) 11.4 (JUN 07) INR 1.1 (JUN 08) 1.1 (JUN 07) 1.1 (JUN 07) PTT 23.2 (JUN 07) AST H 210 (JUN 09) H 420 (JUN 08) H 347 (JUN 07) ALT H 143 (JUN 09) H 181 (JUN 08) H 134 (JUN 07) ALK P 101 (JUN 09) 99 (JUN 08) 104 (JUN 07) T Bili 0.9 (JUN 09) 0.6 (JUN 08) 0.9 (JUN 07) PTN L 5.9 (JUN 09) L 5.6 (JUN 08) L 6.2 (JUN 07) ALB L 2.4 (JUN 09) L 2.3 (JUN 08) L 2.7 (JUN 07) Troponin C 2.700 (JUN 08) C 1.220 (JUN 08) 0.039 (JUN 07) . No qualifying data available Radiology Results (Last 48 hours) [id number] -- 06/07/2021 12:36 US Veins LE Duplex BILAT (06/07/2021 19:36) Result: BILATERAL LOWER EXTREMITY VENOUS ULTRASOUNDCLINICAL HISTORY: Swelling, Covid positive.COMPARISON: None.FINDINGS: Hood-scale, color Doppler and pulsed Doppler evaluation revealnormal compressibility, flow, and augmentation. There are normal venouswaveforms.IMPRESSION: No evidence of deep venous thrombosis .Images reviewed, interpreted, and dictated by Dr. Rui Bassett.Transcribed by George Sweet.I have personally viewed, interpreted and dictated the examination. Ihave read and agree with the above final transcribed report. US Abdominal RT Upper Quad (06/07/2021 19:37) Result: RIGHT UPPER QUADRANT ULTRASOUND.HISTORY: Elevated liver function tests..PROCEDURE: Sonographic images of the right upper quadrant were obtained.COMPARISON: CT of the abdomen and pelvis of 03/08/2019.FINDINGS: The gallbladder is normal. The common bile duct is a normal 4mm. The visualized pancreas and liver are normal. There is stable mildright hydronephrosis and a small right renal cyst..IMPRESSION: Stable mild right hydronephrosis of uncertain etiology orsignificance.. Otherwise, unremarkable. CTA Chest (06/09/2021 10:19) Result: CTA/PE PROTOCOL CHEST CT: 06/09/2021 8:45 AM HISTORY: Shortness of breath.COMPARISON: February 2021.TECHNIQUE: The patient was injected with IV contrast. Axial images wereobtained through the chest in a CTA/PE protocol. 3D reconstructionimages were also performed. This study was performed with techniques tokeep radiation doses as low as reasonably achievable, (ALARA).Individualized dose reduction techniques using automated exposurecontrol or adjustment of mA and/or kV according to the patient size wereemployed.FINDINGS: A port overlies the left chest. The heart size is normal.There is no pericardial or pleural effusion. There is no adenopathy.There is no dissection. There are multiple small filling defects in theright lower lobe pulmonary artery. There is no evidence of right heartstrain. Limited images of the upper abdomen are unremarkable. The lungsare mildly hyperinflated. Patchy bilateral groundglass opacities arepresent.IMPRESSION: Covid pneumonia.Multiple small filling defects in the right lower lobe pulmonary arteryconsistent with PE. There is no evidence of right heart strain.The patient's nurse was notified of the findings at the time of thisdictation. Images reviewed, interpreted, and dictated by Milagros Nathan MD CTA: Right Lower PE, and bilateral infiltrates , agree with above Blood Gases (Current Encounter/Past 24 Hours) pH Art 7.52 HI 06/09/2021 12:56 pCO2 Art 28.4 LOW 06/09/2021 12:56 pO2 Art 57.7 LOW 06/09/2021 12:56 HCO3 Art 22.9 06/09/2021 12:25 BE Art .8 06/09/2021 12:25 sO2 Art 91.3 LOW 06/09/2021 12:56 tHb Art 11.3 LOW 06/09/2021 12:56 FHHb 8.6 NA 06/09/2021 12:25 ctO2 14.3 NA 06/09/2021 12:25 Delivery Device Type Art HFNC NA 06/09/2021 12:25 Temperature, F Art 98.6 NA 06/09/2021 12:25 Art Blood Gas (ABG) Site Right Radial 06/09/2021 12:25 Acceptable Kevin's Test Art Acceptable NA 06/09/2021 12:25 Ventilator Mode Art N/A NA 06/09/2021 12:25 Oxygen Flow Rate Art 7.0 NA 06/09/2021 12:25 Comment Art supine NA 06/09/2021 12:25 ABG Num of Draw Attempts 1 NA 06/09/2021 12:25 ECHO Impression: Moderate left ventricular hypertrophy. Akinetic apex and normal basal segments. Visually estimated ejection fraction 35% +/- 5%. No hemodynamically significant valvular heart disease. Measurements Summary: LVEDd: 4.89 cm LVESd: 3.85 cm IVSEd: 1.47 cm AO Root:2.9 cm LVPWd: 1.4 cm Impression and Plan Pulmonary Acute hypoxemic respiratory failure in setting of COVID-19 pneumonia Fully vaccinated per report CTA chest: multiple small filling defects in RLL pulmonary artery consistent with PE, patchy bilateral groundglass opacities LE Duplex: negative for DVT Cardiac NSTEMI Hypertension ECHO: EF 35% Renal Normal creatinine Hypernatremia Hypokalemia US RUQ: Stable mild right hydronephrosis of uncertain etiology or significance ID Sepsis present on adm: due to UTI and pneumonia COVID-19 positive 06/07 Urine culture: e. coli Elevated inflammatory markers Elevated procal GI Transaminitis ? etiology primary team is following Hyperammonemia US RUQ: Stable mild right hydronephrosis of uncertain etiology or significance Heme/Onc Anemia History of Non-Hodgkin's lymphoma Neuro Bipolar disorder Dementia Alert but confused Endocrine Glycemic control Plan Supplemental O2 to maintain O2 saturations 92-96% Ok to use Optiflow or NIPPV for increased work of breathing Encourage conscious proning however she is confused , and I doubt success , thus will abort Combivent inhalers Mucinex 1200mg BID IS/FV COVID order set Encourage conscious proning Cardiology is following ID consult pending recommend: abx doxy and Rocephin Dexamethasone 10mg BID x5 days, then 10mg daily x5 days Remedesivir Actemra IV : ordered Sputum culture Blood culture Respiratory PCR check strongyloides Lactobacillus On lactulose 20g Q6H, monitor ammonia level decrease in am : avoid abd distention hypernatremia Stop NS Given 1L D5W @50mL/hr Give free water 250mL Q6H Change all antibiotics to D5W Check lithium level Nutrition per primary Glycemic control per primary Prophylaxis: Protonix and Lovenox 115mg Q12H AM labs/CXR coreg and lisinoipril and asa Full Code prognosis : guarded : high risk for deterioration and need for mechanical vent I tried to call pt 's son , no answer I spoke with Primary team, KAYLAN Perdomo and discussed pt condition and code status cele montgomery 255 documented in this encounter Plan of Treatment Not on file documented as of this encounter Visit Diagnoses Not on filedocumented in this encounter
--- OUTSIDE RECORDS SUMMARY | 2025-03-08 13:15 | XMS_ITS | Encounter Summary ---
Author Organization [employer] ([place], [place], [place], [place]) Address [address] [place] [address] Care Team Providers Care Online Marketing Specialist Name Role Phone Unavailable Primary Care Provider Unavailabl e Encounter Details Date Type Department Care Team (Late st Contact Info) Description 06/15/2021 Transcribed Document [facility] [place] [address] [place] [address] ProviderTg MD [address] [place] [address] Social History Tobacco Use Types Packs/Day Years Used Date Smoking Tobacco: Never Assessed Comments Unknown Sex and Gender Information Value Date Recorded Sex Assigned at Not on file Legal Sex Female 2:39 PM CDT Gender Identity Not on file Sexual Orientation Not on file documented as of this encounter Miscellaneous Notes * Cerner Conversion Note - Tg Jones MD - 06/15/2021 9:28 AM CDT Patient: SUDHA TIMMONS Age: 75 Years Sex: Female : 1945 Assessment/Plan 1. Multifactorial ATN secondary to infection/contrast-induced nephropathy in setting of being on DEMETRI inhibitors 2. Hypernatremia, free water deficit, sodium 151 3. Mild acidosis, non-anion gap secondary to REBECCA(resolved) 4. PE 5. Covid pneumonitis Plan -Baseline Normal Kidney function with creatinine 1.8-->1.3-->0.96 today -Mild elevation of CK not clinically significant -Non-oliguric -Avoid nephrotoxins, NSAIDs, DEMETRI inhibitor's, ARB yes, please keep MAP above 65, Avoid IV Contrast -Renally dose medications and antibiotics -Daily renal function please, strict intake and output -No need for OCCUPATIONAL THERAPIST'S ASSISTANT at present time -Thanks for consultation, follow along with you Dr Lee Snyder Cell phone : [phone] [place] [address] phone : [phone] VTE Prophylaxis - Medical Enoxaparin 115 mg, SubCutaneous, Inj, [id number], Routine, Start 06/12/21 9:00:00 EDT, 06/09/21 21:00:00 EDT (SHAKA ZENDEJAS) Sequential Compression Device Start: 06/07/21 14:19:00 EDT, Bilateral, Length: Knee High, While patient is in bed, Continuous Order (CARA DE LA ROSA) Subjective Patient was seen and evaluated by bedside Vital Signs T: 36.8 ??C TMIN: 36.8 ??C TMAX: 37.6 ??C HR: 108(Monitored) RR: 18 BP: 116/81 SpO2: 94% Oxygen Settings (Last) Oxygen Therapy Mode: High humidity, high flow therapy (06/15/21 08:26:00) Oxygen Flow Rate: 50 Liter/Min (06/15/21 08:26:00) Intake & Output Totals Last 24 Hours (7a-7a) Input Total: 165 mL Output Total: 300 mL Balance: -135 mL Physical Exam GENERAL APPEARANCE: This is [...] inhalation aerosol, 2 Puff, Inhalation, RT_QID Coreg, 12.5 mg= 1 Tab, Oral, BID dexAMETHasone, 10 mg= 1 mL, IV Push, Daily hydrOXYzine hydrochloride, 25 mg= 1 Tab, Oral, At Bedtime, PRN labetalol, 10 mg= 2 mL, IV Push, Q3H, PRN lactobacillus acidophilus, 1 Cap, Oral, Daily Lopressor, 5 mg= 5 mL, IV Push, Q3H, PRN Lovenox, 115 mg= 0.77 mL, 1 mg/kg, SubCutaneous, [id number] micafungin oxyCODONE, 5 mg= 1 Tab, Oral, Q4H, PRN Pepcid, 20 mg= 1 Tab, Oral, Daily rifAXIMin, 550 mg= 1 Tab, Oral, BID Robitussin, 1200 mg= 60 mL, PEG Tube, BID SEROquel, 25 mg= 1 Tab, Oral, [id number] Zofran, 4 mg= 2 mL, IV Push, Q4H, PRN Lab Results Test Name Test Result Date/Time Sodium Level 151 mmol/L (High) 06/15/2021 06:00 EDT Potassium Level 4.1 mmol/L 06/15/2021 06:00 EDT Chloride Level 122 mmol/L (High) 06/15/2021 06:00 EDT Carbon Dioxide Level 25 mmol/L 06/15/2021 06:00 EDT Anion Gap 8 (Low) 06/15/2021 06:00 EDT Glucose Level 159 mg/dL (High) 06/15/2021 06:00 EDT Blood Urea Nitrogen 31 mg/dL (High) 06/15/2021 06:00 EDT Creatinine Level 0.90 mg/dL 06/15/2021 06:00 EDT eGFR >60 mL/min/1.73m2 06/15/2021 06:00 EDT eGFR NonAfrican >60 mL/min/1.73m2 06/15/2021 06:00 EDT Bun/Creatinine 34.4 (High) 06/15/2021 06:00 EDT Calcium Level 8.4 mg/dL 06/15/2021 06:00 EDT Magnesium Level 2.5 mg/dL (High) 06/15/2021 06:00 EDT Device Comment 1 Notified Nurse RBV 06/15/2021 05:51 EDT Device Comment 1 Notified Nurse RBV 06/14/2021 20:21 EDT Device Comment 1 Notified MD RBV 06/14/2021 15:40 EDT Device Comment 1 Notified MD RBV 06/14/2021 10:24 EDT Glucose POC2 152 mg/dL (High) 06/15/2021 05:51 EDT Glucose POC2 158 mg/dL (High) 06/14/2021 20:21 EDT Glucose POC2 166 mg/dL (High) 06/14/2021 15:40 EDT Glucose POC2 159 mg/dL (High) 06/14/2021 10:24 EDT Troponin I Ultra 0.447 ng/mL (High) 06/14/2021 10:30 EDT Platelet Count 194 K/uL 06/15/2021 06:00 EDT documented in this encounter Plan of Treatment Not on file documented as of this encounter Visit Diagnoses Not on filedocumented in this encounter
--- OUTSIDE RECORDS SUMMARY | 2025-03-08 13:15 | XMS_ITS | Encounter Summary ---
Author Organization [employer] ([place], [place], [place], [place]) Address [address] [place] [address] Care Team Providers Care Mold Closer Helper Name Role Phone Unavailable Primary Care Provider Unavailabl e Encounter Details Date Type Department Care Team (Late st Contact Info) Description 06/10/2021 Transcribed Document [facility] [place] [address] [place] [address] ProviderTg MD [address] [place] [address] Social History Tobacco Use Types Packs/Day Years Used Date Smoking Tobacco: Never Assessed Comments Unknown Sex and Gender Information Value Date Recorded Sex Assigned at Not on file Legal Sex Female 2:39 PM CDT Gender Identity Not on file Sexual Orientation Not on file documented as of this encounter Miscellaneous Notes * Cerner Conversion Note - Tg ProviderMD - 06/10/2021 3:41 PM CDT Patient: SUDHA TIMMONS Age: 75 Years Sex: Female : 1945 Subjective Patient seen and examined date of service 06/10/2021. Patient alert fidgeting in the bed, yells out ouch to touch all over from arms to chest to shins bilaterally. Helped patient get straightened up in the bed with her pillow and she was moving arms and legs equally in the bed though clearly uncomfortable with her fidgeting. Not responding verbally though following some commands. Vital Signs T: 36.4 ??C TMIN: 36.3 ??C TMAX: 37.2 ??C HR: 117(Monitored) RR: 16 BP: 90/69 SpO2: 91% Oxygen Settings (Last) Oxygen Therapy Mode: High humidity, high flow therapy (06/10/21 11:48:00) Oxygen Flow Rate: 60 Liter/Min (06/10/21 11:48:00) Intake & Output Totals Last 24 Hours (7a-7a) Input Total: 1571 mL Output Total: 1050 mL Balance: 521 mL Physical Exam General: [Alert and disoriented, well nourished, no acute distress]. Neurologic: [Awake, alert, and disoriented, follows some commands, did not answer questions, blankly staring, no focal neurological deficits moving arms and legs in bed equally restlessly fidgeting in the bed]. Eye: [Normal conjunctiva]. HENT: [Normocephalic, normal hearing, moist oral mucosa, no scleral icterus]. Neck: [Supple, no JVD]. Lungs: [Clear to auscultation, non-labored respiration]. Heart: [Normal rate, regular rhythm, no murmur, 1+ pitting LE edema bilaterally ant shins ttp bilaterally]. Abdomen: [Soft, non-tender, non-distended, normal bowel sounds]. Musculoskeletal: [Patient laying in bed without ROM tested]. Skin: [Skin is warm, dry and brown, no rashes]. Psychiatric: [Cooperative, appropriate mood and affect]. Assessment/Plan Sepsis due to UTI and COVID-19 pneumonia, POA -On admission Fever 102, heart rate 120s, increased respiratory rate, source UTI and pneumonia -Received IVF bolus per sepsis protocol -Blood cultures No growth so far -Follow urine culture + veliz sensitive e coli -No prn Tylenol with transaminitis -Abx per ID Acute hypoxic respiratory failure due to COVID-19 pneumonia and R Pulmonary embolism, POA, worsening -Vaccinated with Pfizer per son -Abgs noted -Continuous oxygen monitoring, uptitrated to highflow FiO2 60% -Precautions in place -Continue dexamethasone 10 iv bid, remdesivir, s/p actemra /, scheduled inhaler, empiric antibiotics cefdinir and doxycycline, trend inflammatory markers -Pulm CC following -ID consulted, discussed with Dr. Rocha who plans to possibly switch Bactrim to atovaquone and considering adding one time ivermectin, at her discretion R Pulmonary embolism -CTA noted: Multiple small filling defects in the right lower lobe pulmonary artery consistent with PE -ECHO noted, no R heart strain, CTA noted NO R heart strain -Continue Therapeutic Lovenox Transaminitis -Acetaminophen alcohol level negative -Likely due to COVID-19, patient denies alcohol use -RUQ US noted, normal liver and gb -Stopped prn Tylenol -Hold statin Acute systolic HF -2/2 possible NSTEMI? vs covid? vs chronic, last echo normal from 2018 -ECHO noted, EF 35% -Cardiology following making med adjustments Hypertensive urgency, improving -Initially on home meds Metoprolol 50 bid and Lisinopril, then Cardiology making med adjustments -PRN hydralazine and clonidine Sinus tachycardia -Likely from PE, EKG noted, reg rate, continue Coreg per Cards, PRN Lopressor for tachycardia Elevated troponin -Likely reactive from COVID and tachycardia -Patient denies cp -ECHO noted, EF 35% -Cardiology following: defer serial ekg reviews to them, making med adjustments, recommend medical management, follow Acute on chronic metabolic encephalopathy, worsening -CT hea neg -Ammonia 33 to 44 to 33 to normal, Pulm stopped lactulose -Alert and conversational upon my evaluation on admission, no focal neurological deficits, with increased confusion 06/09, not conversational constantly fidgetin gin bed 06/10 wihtout focal neurological deficits other than not conversing -Per nursing patient has hx of baseline dementia, not a reliable medical/medicine historian -Pulm rechecking lithium level, normal 0.6, discussed with Dr. Marielle Sommer, will stop lithium with acute worsening delerium on 06/10, added low dose Seroquel 25, QTc < 500, PRN hydroxyzone Bilateral LE edema -D-dimer elevated 2/2 covid -No hx of CHF, Echo from 2018 with normal EF, no excess IVF at this time -LE US NEG -ECHO EF 35% Hypernatremia -Mild 147 to 149 to 150, IVF adjustments by Pulm with D5W, encouraged nursing to give, monitor Bipolar disorder: Resumed home lithium 30 bid, confirmed dose with pharmacist, lithium level low on admission to normal 0.6 with re-check, discussed with Dr. Marielle Sommer, will stop lithium in setting of acute worsening delerium Morbid obesity: BMI 45.8, complicates all aspects of care and resp failure with suspected OHS component Hx of non-Hodgkin's lymphoma DVT ppx: Lovenox therapeutic dose FULL CODE, confirmed with patient on admission, no living will, two living children son Shawn daughter Harley [phone]. DISPO: Resp status the same as yesterday on optiflow FiO2 60%, with continued increased confusion and fidgeting in the bed. Not medically ready, ID and Pulm consulted making med adjustments. HIGH RISK FOR INTUBATION. Expect patient will need SNF at discharge since she lives with 98 year old father. Time spent: 40 minutes. IDesi PA-C, personally evaluated the patient forming the plan of care above. Dr. Marielle Sommer available to answer patient plan of care questions and evaluate the patient if needed. Patient also discussed with ID. VTE Prophylaxis - Medical Enoxaparin 115 mg, SubCutaneous, Inj, [id number], Routine, Start 06/09/21 21:00:00 EDT, 06/09/21 21:00:00 EDT (DESI DE LA ROSA) Sequential Compression Device Start: 06/07/21 14:19:00 EDT, Bilateral, Length: Knee High, While patient is in bed, Continuous Order (DESI DE LA ROSA) Medications aspirin, 81 mg= 1 Tab, Oral, Daily Bactrim, 1 Tab, Oral, MoWeFr ceFAZolin, 2 Gram= 100 mL, IV Piggyback, Q8HInt cloNIDine, 0.1 mg= 1 Tab, Oral, Q4H, PRN Combivent Respimat CFC free 100 mcg-20 mcg/inh inhalation aerosol, 2 Puff, Inhalation, RT_QID Coreg, 6.25 mg= 1 Tab, Oral, BID D5W 1,000 mL, 1000 mL, IntraVENous dexAMETHasone, 10 mg= 1 mL, IV Push, Daily hydrALAZINE, 10 mg= 0.5 mL, IV Push, Q6H, PRN hydrOXYzine hydrochloride, 25 mg= 1 Tab, Oral, At Bedtime, PRN lactobacillus acidophilus, 1 Cap, Oral, Daily lithium, 300 mg= 1 Cap, Oral, BID Lopressor, 5 mg= 5 mL, IV Push, Q6H, PRN Lovenox, 115 mg= 0.77 mL, 1 mg/kg, SubCutaneous, [id number] Mucinex, 1200 mg= 2 Tab, Oral, BID pantoprazole, 40 mg= 1 Tab, Oral, Daily remdesivir rifAXIMin, 550 mg= 1 Tab, Oral, BID Zofran, 4 mg= 2 mL, IV Push, Q4H, PRN Diagnostic Results Radiology Results (Last 48 hours) [id number] -- 06/07/2021 12:36 CTA Chest (06/09/2021 10:19) Result: CTA/PE PROTOCOL [...] interpreted, and dictated by Milagros Nathan MD CR Chest 1 Vw Portable (06/10/2021 11:11) [...] agree with the above final transcribed report. Lab Results Test Name Test Result Date/Time pH Art 7.50 (High) 06/10/2021 11:19 EDT pCO2 Art 25.1 mmHg (Low) 06/10/2021 11:19 EDT pO2 Art 87.3 mmHg 06/10/2021 11:19 EDT HCO3 Art 19.5 mmol/L (Low) 06/10/2021 11:19 EDT BE Art -2.5 mmol/L (Low) 06/10/2021 11:19 EDT sO2 Art 97.2 % 06/10/2021 11:19 EDT tHb Art 11.2 Gram/dL (Low) 06/10/2021 11:19 EDT FHHb 2.8 % 06/10/2021 11:19 EDT ctO2 15.2 mmol/L 06/10/2021 11:19 EDT FIO2 Art 60 06/10/2021 11:19 EDT Delivery Device Type Art OptiFlow 06/10/2021 11:19 EDT Temperature, F Art 98.6 Deg F 06/10/2021 11:19 EDT Art Blood Gas (ABG) Site Right Radial 06/10/2021 11:19 EDT Acceptable Kevin's Test Art Acceptable 06/10/2021 11:19 EDT Ventilator Mode Art N/A 06/10/2021 11:19 EDT Oxygen Flow Rate Art 60.0 Liter 06/10/2021 11:19 EDT Comment Art supine 06/10/2021 11:19 EDT ABG Num of Draw Attempts 1 06/10/2021 11:19 EDT PaO2/FiO2 calculated 146 06/10/2021 11:19 EDT Sodium Level 150 mmol/L (High) 06/10/2021 06:25 EDT Potassium Level 3.7 mmol/L 06/10/2021 06:25 EDT Chloride Level 121 mmol/L (High) 06/10/2021 06:25 EDT Carbon Dioxide Level 21 mmol/L 06/10/2021 06:25 EDT Anion Gap 12 06/10/2021 06:25 EDT Glucose Level 135 mg/dL (High) 06/10/2021 06:25 EDT Blood Urea Nitrogen 32 mg/dL (High) 06/10/2021 06:25 EDT Creatinine Level 1.50 mg/dL (High) 06/10/2021 06:25 EDT eGFR 41 mL/min/1.73m2 (Low) 06/10/2021 06:25 EDT eGFR NonAfrican 34 mL/min/1.73m2 (Low) 06/10/2021 06:25 EDT Bun/Creatinine 21.3 (High) 06/10/2021 06:25 EDT Calcium Level 8.9 mg/dL 06/10/2021 06:25 EDT Protein Total 5.4 Gram/dL (Low) 06/10/2021 06:25 EDT Albumin Level 2.2 Gram/dL (Low) 06/10/2021 06:25 EDT Globulin 3.2 Gram/dL 06/10/2021 06:25 EDT A/G Ratio 0.7 (Low) 06/10/2021 06:25 EDT Bilirubin Total 0.5 mg/dL 06/10/2021 06:25 EDT Alk Phos 88 Units/Liter 06/10/2021 06:25 EDT AST 128 Units/Liter (High) 06/10/2021 06:25 EDT ALT 98 Units/Liter (High) 06/10/2021 06:25 EDT Magnesium Level 2.0 mg/dL 06/10/2021 06:25 EDT Ammonia Level 30.0 uMol/L 06/10/2021 10:44 EDT Phosphorus 3.3 mg/dL 06/10/2021 06:25 EDT CRP 9.90 mg/dL (High) 06/10/2021 06:25 EDT Lactate Dehydrogenase 813 Units/Liter (High) 06/10/2021 06:25 EDT Calcium Ionized 1.25 mmol/L 06/10/2021 06:25 EDT CK 1520 Units/Liter (High) 06/10/2021 06:25 EDT Troponin I Ultra 2.020 ng/mL (Critical) 06/10/2021 06:25 EDT WBC 7.0 K/uL 06/10/2021 06:25 EDT RBC 3.27 Million/uL (Low) 06/10/2021 06:25 EDT Hgb 10.8 g/dL (Low) 06/10/2021 06:25 EDT Hct 34.3 % 06/10/2021 06:25 EDT MCV 104.9 fL (High) 06/10/2021 06:25 EDT MCH 33.0 pg (High) 06/10/2021 06:25 EDT MCHC 31.5 Gram/dL (Low) 06/10/2021 06:25 EDT Platelet Count 247 K/uL 06/10/2021 06:25 EDT MPV 11.8 fL 06/10/2021 06:25 EDT RDW 12.9 % 06/10/2021 06:25 EDT Neut % 83.6 % (High) 06/10/2021 06:25 EDT Neut # 5.83 K/uL 06/10/2021 06:25 EDT Lymph % 11.3 % (Low) 06/10/2021 06:25 EDT Lymph # 0.79 x10(3)/uL (Low) 06/10/2021 06:25 EDT [place] % 4.2 % 06/10/2021 06:25 EDT [place] # 0.29 K/uL 06/10/2021 06:25 EDT Eos % 0.1 % 06/10/2021 06:25 EDT Eos # .01 x10(3)/uL 06/10/2021 06:25 EDT Baso % 0.1 % 06/10/2021 06:25 EDT Baso # .01 x10(3)/uL 06/10/2021 06:25 EDT nRBC 0.040 (High) 06/10/2021 06:25 EDT Slide Review No 06/10/2021 06:25 EDT IG# 0.05 x10(3)/uL 06/10/2021 06:25 EDT IG% 0.70 % (High) 06/10/2021 06:25 EDT D Dimer Quant 2.95 mg/L FEU (High) 06/10/2021 06:25 EDT Procalcitonin 0.44 ng/mL 06/10/2021 06:25 EDT Ferritin Level 58435.2 ng/mL (High) 06/10/2021 06:25 EDT Electronically signed by Keven, [facility] Conversion Lab Instructor Cerner at 12/18/2022 9:09 AM CDT documented in this encounter Plan of Treatment Not on file documented as of this encounter Visit Diagnoses Not on filedocumented in this encounter
--- OUTSIDE RECORDS SUMMARY | 2025-03-08 13:15 | XMS_ITS | Encounter Summary ---
Author Organization [employer] ([place], [place], [place], [place]) Address [address] [place] [address] Care Team Providers Care Records Specialist Name Role Phone Unavailable Primary Care Provider Unavailabl e Encounter Details Date Type Department Care Team (Late st Contact Info) Description 06/10/[address] [facility] [place] [address] [place] [address] ProviderTg MD [address] [place] [address] Social History Tobacco Use Types Packs/Day Years Used Date Smoking Tobacco: Never Assessed Comments Unknown Sex and Gender Information Value Date Recorded Sex Assigned at Not on file Legal Sex Female 2:39 PM CDT Gender Identity Not on file Sexual Orientation Not on file documented as of this encounter Miscellaneous Notes * Cerner Conversion Note - Tg ProviderMD - 06/10/2021 7:25 AM CDT Event Note Entered On: 06/10/2021 7:29 EDT Performed On: 06/10/2021 7:25 EDT by Sari Maciel RN-TRAVELER Event Note Event Location : Assigned room Event Details : Change in condition Description of Event : Patient was noticed to be having increase restlessness and more confused, vital signs were normal as per chart. Kimberly (INSOLE TACK PULLER HAND nurse) was called unofficially and her expert opinion sought about the patient (possible repeat ABG or analgesic as patient was observed to be touching her right lower abdominal area). She adviced I inform the dr. Doctor Muniz was informed and nothing new added to treatment Sari Maciel RN-TRAVELER - 06/10/2021 7:25 EDT documented in this encounter Plan of Treatment Not on file documented as of this encounter Visit Diagnoses Not on filedocumented in this encounter
--- OUTSIDE RECORDS SUMMARY | 2025-03-08 13:15 | XMS_ITS | Encounter Summary ---
Author Organization [employer] ([place], [place], [place], [place]) Address [address] [place] [address] Care Team Providers Care Lead Technical Writer Name Role Phone Unavailable Primary Care Provider Unavailabl e Encounter Details Date Type Department Care Team (Late st Contact Info) Description 06/09/2021 Transcribed Document [facility] [place] [address] [place] [address] ProviderTg MD [address] [place] [address] Social History Tobacco Use Types Packs/Day Years Used Date Smoking Tobacco: Never Assessed Comments Unknown Sex and Gender Information Value Date Recorded Sex Assigned at Not on file Legal Sex Female 2:39 PM CDT Gender Identity Not on file Sexual Orientation Not on file documented as of this encounter Miscellaneous Notes * Cerner Conversion Note - Tg ProviderMD - 06/09/2021 4:06 PM CDT On Going Discharge Planning Entered On: 06/09/2021 16:10 EDT Performed On: 06/09/2021 16:06 EDT by Patsy Koehler [employer] Technical Director Drew Care Management Progress Note Discharge Arrangements : Patient Post-Acute Information Patient Name: SUDHA SOLORZANO Gender: Female : [birth year] Age: 75 Years No Post-Acute Placement(s) Listed No Post-Acute Service(s) Listed No [place] Referral(s) Listed Discharge Options Discussed with Patient : DME, Home Health, Short term rehabilitation Barriers to Discharge Identified : Clinical Condition of Patient Patient Discharge Goal : intermediate facility List/Info Provided Pt/Fam/Support Person : Inpatient rehabilitation facility, intermediate facilities Is the Patient Meeting Medical Necessity : Yes Did you Attend Multidisciplinary Rounds? : Yes Patsy Koehler Social Worker Park Keeper - 06/09/2021 16:06 EDT Narrative Progress Note Narrative Progress Note : HD#2, ELOS-not recorded, RSR-moderate, Boost-4 CM sent rehab referrals to [facility] and [facility] [place] since they accept COVID+ patients. Currently patient is on 60% Fi02. PEr MD, patient's respiratory status is worsening. CM to follow pt's progress for dc planning. Patsy Koehler V [employer] Television Technical Director [facility] - 06/09/2021 16:06 EDT Electronically signed by Julian Baca Conversion Supervisor Receiving And Processing Cerner at 12/18/2022 9:14 AM CDT documented in this encounter Plan of Treatment Not on file documented as of this encounter Visit Diagnoses Not on filedocumented in this encounter
--- OUTSIDE RECORDS SUMMARY | 2025-03-08 13:15 | XMS_ITS | Encounter Summary ---
Author Organization [employer] ([place], [place], [place], [place]) Address [address] [place] [address] Care Team Providers Care Relief Pharmacist Name Role Phone Unavailable Primary Care Provider Unavailabl e Encounter Details Date Type Department Care Team (Late st Contact Info) Description 08/12/2018 Transcribed Document [facility] [place] [address] [place] [address] ProviderTg MD [address] [place] [address] Social History Tobacco Use Types Packs/Day Years Used Date Smoking Tobacco: Never Assessed Comments Unknown Sex and Gender Information Value Date Recorded Sex Assigned at Not on file Legal Sex Female 2:39 PM CDT Gender Identity Not on file Sexual Orientation Not on file documented as of this encounter Miscellaneous Notes * Cerner Conversion Note - Tg Jones MD - 08/12/2018 7:34 PM RADIOLOGY THERAPIST DATE OF ADMISSION: 08/12/2018 PRIMARY CARE PHYSICIAN: Dr. Lee Damian. CHIEF COMPLAINT: Shortness of breath, difficulty breathing. HISTORY OF PRESENT ILLNESS: This is a 72-year-old female, morbidly obese with history of bipolar disorder, depression, hypertension, obstructive sleep apnea. Patient presented at [facility] because not feeling well. Patient been having shortness of breath, difficulty breathing, headache, weakness, dizziness, coughing. Patient been evaluated there. Had blood work, shows elevated D-dimer with slightly elevated troponin. Patient with history of also non-Hodgkin lymphoma. Patient transferred to [facility]. Came in, had blood work done, shows elevated troponin, elevated BNP. CT angio of the chest done, which was negative for pulmonary embolism. Patient admitted to the hospital for further evaluation. SYSTEMIC REVIEW: GENERAL: No fever or chills. HEAD: Positive for headache and dizziness. EYES: No change of vision. EARS: No earache. NOSE: No epistaxis. THROAT: No sore throat. RESPIRATORY: Positive for shortness of breath and cough. CARDIAC: Positive for chest pain. GI: Positive for nausea. No vomiting. URINARY: No hematuria. MUSCULOSKELETAL: Generalized weakness. NEUROLOGICAL: No focal numbness or weakness. SKIN: No new rashes. ENDOCRINE: No heat or cold intolerance. PAST MEDICAL HISTORY: 1. Non-Hodgkin lymphoma. 2. Morbid obesity. 3. Bipolar disorder. 4. Depression. 5. Hypertension. 6. Osteoarthritis. 7. Sleep apnea. 8. History of tremors. PAST SURGICAL HISTORY: 1. History of heart cath. 2. Bilateral breast reduction. 3. Hysterectomy. 4. Tubal . 5. Cataract surgery. 6. Port placement. SOCIAL HISTORY: Patient is nonsmoker. No alcohol or drug abuse. FAMILY HISTORY: No heart disease. ALLERGIES: 1. ANAPROX. 2. CODEINE. 3. LATEX. 4. NAPROXEN. HOME MEDICATIONS: 1. Tylenol as needed. 2. Cogentin at bedtime. 3. Benadryl as needed. 4. Lexapro 20 mg daily. 5. Lasix 20 mg daily. 6. Lamictal 200 mg daily. 7. Metoprolol 25 mg twice daily. 8. Prilosec 20 mg daily. 9. Potassium chloride 10 mEq daily. 10. Seroquel 100 mg daily. PHYSICAL EXAMINATION: VITAL SIGNS: Blood pressure 152/101, temperature 97.3, heart rate 112, respiratory rate 22. HEAD: Atraumatic, normocephalic. Pupils round and reactive. EYES: No conjunctival injection or discharge. EARS: No discharge. NOSE: No bleeding or discharge. MOUTH: Dry. NECK: Supple. Full range of motion. CHEST: Poor inspiratory effort. Diminished air entry. No crackles, wheezes, or rhonchi. HEART: S1 and S2 heard. Regular rate and rhythm. ABDOMEN: Soft. Audible bowel sounds. No tenderness. No guarding. No rebound tenderness. EXTREMITIES: Positive for edema. No erythema or tenderness. NEUROLOGICAL: No apparent focal motor or sensory deficits. Patient alert, awake, oriented x3. Intact cranial nerves. PSYCHIATRIC: Mild anxiety. SKIN: No apparent rashes or induration. ENDOCRINE: No thyromegaly or tenderness. GENERAL: Patient laying in bed, anxious, son at bedside. LABORATORIES AND STUDIES: ABG: pH 7.43, CO2 of 39.4, O2 of 75.5, bicarb 25.9. Sodium 141, potassium 3.9, chloride 107, CO2 of 28, glucose 96, BUN 9, creatinine 0.6. Calcium 8.8, protein 5.9, albumin 3.4, globulin 2.5. Bilirubin 0.3, alkaline phosphatase 85, AST 16, ALT 18. Magnesium 1.8. Lipase 43. Lactic acid 1.1. Troponin 0.117. BNP 194. White blood cells 3.1, hemoglobin 12.4, hematocrit 37.0, platelets 186. INR 1.0. ASSESSMENT AND PLAN: 1. Chest discomfort. Patient with shortness of breath, chest discomfort, has slightly elevated troponin. Patient admitted to the hospital. Cardiology consulted. Echocardiogram was ordered. Start symptomatic treatment. Patient with history of heart catheterization before. Patient will be on aspirin, statin, angiotensin-converting enzyme inhibitor, and beta joseph. Further recommendation as per Cardiology. 2. Chest discomfort. Patient with elevated D-dimer, with chest discomfort, shortness of breath. CT of the chest done, which was negative for pulmonary embolus. Venous Doppler of lower extremity ordered. 3. Hypertension, uncontrolled. We will resume home medication plus hydralazine as needed. 4. Congestive heart failure. Patient with possible congestive heart failure, elevated troponin, elevated BNP, possible ischemic cardiomyopathy. Echocardiogram was ordered. Cardiology consulted. 5. Non-Hodgkin lymphoma. Recommend to follow up with marble cutter-oncologist. 6. Obesity. Recommend diet and exercise. 7. Anxiety. Will be on Ativan as needed. 8. Weakness. Encouraged . 9. Gastrointestinal prophylaxis, Pepcid. 10. Deep venous thrombosis prophylaxis, heparin. Plan discussed with ER physician at [facility], with patient. Chart was reviewed. TIME SPENT: 55 minutes. Mc Sommer M.D. Dict: 08/12/2018 19:34:46 Trans: 08/13/2018 01:57:38 CC1: Mc Sommer M.D. CC2: Dr. Lee Damian Electronically signed by [facility] Conversion Manager Mail Cerner at 12/15/2022 6:33 PM CDT documented in this encounter Plan of Treatment Not on file documented as of this encounter Visit Diagnoses Not on filedocumented in this encounter
--- OUTSIDE RECORDS SUMMARY | 2025-03-08 13:15 | XMS_ITS | Encounter Summary ---
Author Organization [employer] ([place], [place], [place], [place]) Address [address] [place] [address] Care Team Providers Care Swine Nutritionist Name Role Phone Unavailable Primary Care Provider Unavailabl e Encounter Details Date Type Department Care Team (Late st Contact Info) Description 06/19/2021 Transcribed Document [facility] [place] [address] [place] [address] ProviderTg MD [address] [place] [address] Social History Tobacco Use Types Packs/Day Years Used Date Smoking Tobacco: Never Assessed Comments Unknown Sex and Gender Information Value Date Recorded Sex Assigned at Not on file Legal Sex Female 2:39 PM CDT Gender Identity Not on file Sexual Orientation Not on file documented as of this encounter Miscellaneous Notes * Cerner Conversion Note - Tg Jones MD - 06/19/2021 5:36 PM CDT Patient: SUDHA TIMMONS Age: 75 years Sex: Female : 1945 Associated Diagnoses: None Author: FLORENCE KENNEDY MD Results Review Subjective HISTORY OF PRESENT ILLNESS: The patient is a 75-year-old female with past medical history significant for non-Hodgkin lymphoma, dementia of Alzheimer's type, essential hypertension, who came in for evaluation of lethargy, generalized weakness. Apparently, the patient was exposed to COVID-19 via the father who was also sick. The patient had complained of shortness of breath mainly on exertion and at the time of presentation, the patient denies any associated fever. There was no chills. No palpitation. On presentation, the patient was fairly hemodynamically stable. The heart rate was persistently elevated. The patient was febrile with a temperature reported of 102. The patient's condition continued to deteriorate and was eventually found to have urinary tract infection with COVID-19 pneumonia on presentation initially. The patient's renal function was fairly unremarkable. The creatinine started trending up. Creatinine trended from 1 to 1.5 and eventually 2.0 with a corresponding increase in BUN of 49 by which time, Nephrology was consulted for further evaluation on account of acute kidney injury. REVIEW OF SYSTEMS: CONSTITUTIONAL: The patient had fever and chills. No significant weight loss. HEENT: Eyes negative. Ears, nose, and throat, negative. RESPIRATORY: Negative. CARDIOVASCULAR: Negative. GASTROINTESTINAL: Negative. GENITOURINARY: Negative. INTEGUMENT: Negative. MUSCULOSKELETAL: Negative. HEMATOLOGIC: Negative. ENDOCRINE: Negative. NEUROLOGIC: Negative. PSYCHIATRIC: Negative. ALLERGY/IMMUNOLOGIC: Negative. PAST MEDICAL HISTORY: Significant for obstructive sleep apnea, bipolar disorder, non-Hodgkin lymphoma, hypertension, osteoarthritis, obstructive sleep apnea. PAST SURGICAL HISTORY: Significant for bilateral breast reduction surgery, total abdominal hysterectomy, ectopic , sciatic nerve surgery, cataract extraction surgery, cardiac catheterization, Port-A-Cath placement. ALLERGIES: The patient is allergic to Anaprox, latex, codeine, naproxen. HOME MEDICATIONS: Include: 1. Aspirin 81 mg p.o. daily. 2. Atorvastatin 40 mg p.o. at bedtime. 3. Cogentin 1 mg p.o. at bedtime. 4. Diphenhydramine 25 mg p.o. t.i.d. 5. Escitalopram 20 mg p.o. daily. 6. Lasix 20 mg p.o. daily. 7. Lamotrigine 200 mg p.o. daily. 8. Lisinopril 5 mg p.o. daily. 9. Metoprolol 50 mg p.o. b.i.d. 10. Potassium chloride 10 mEq p.o. b.i.d. 11. Prilosec 20 mg p.o. daily. 12. Seroquel 300 mg p.o. at bedtime. 13. Tylenol Extra Strength 500 mg p.o. q.6 hours p.r.n. SOCIAL HISTORY: The patient is a nonsmoker, but exposed to secondhand smoking. No alcohol use. No illicit drug use. FAMILY HISTORY: Significant for a father who is alive, also had a COVID. Mother , cause unknown. 06/19: Patient was seen and examined, more alert today she is on tube feed, NA is 145 Health Status Allergies: Allergic Reactions (Selected) Severity Not Documented Anaprox- Rash. Codeine- No reactions were documented. Latex- Itching. Naproxen- No reactions were documented., Allergies (4) Active Reaction Anaprox Rash codeine None Documented Latex Itching naproxen None Documented Current medications: (Selected) Inpatient Medications Ordered Ativan: 0.5 mg, IV Push, BID, PRN: Agitation Colace: 100 mg, Oral, BID Core.5 mg, Oral, BID Dextrose 50% injection: 12.5 Gram, IV Push, Q15Min, PRN: Other (See Comment) Dextrose 50% injection: 25 Gram, IV Push, Q15Min, PRN: Other (See Comment) Dextrose 50% injection: 25 Gram, IV Push, Q15Min, PRN: Other (See Comment) Dextrose 50% injection: 25 Gram, IV Push, Q15Min, PRN: Other (See Comment) DuoNeb 0.5 mg-2.5 mg/3 mL inhalation solution: 3 mL, Nebulized Inhalation, Q4H, PRN: Wheezing Lipitor: 40 mg, Oral, At Bedtime Lopressor: 5 mg, IV Push, Q3H, PRN: Tachycardia Lovenox: 115 mg, SubCutaneous, [id number] MiraLax: 17 Gram, Oral, Daily Pepcid: 20 mg, Oral, Daily Robitussin: 400 mg, Oral, Q4HInt SEROquel: 12.5 mg, Oral, BID, PRN: Agitation Zofran: 4 mg, IV Push, Q4H, PRN: Nausea aspirin: 81 mg, Feeding Tube, Daily atovaquone: 750 mg, Oral, BID glucagon: 1 mg, IntraMuscular, Q15Min, PRN: Other (See Comment) glucose 4 g oral tablet, chewable: 16 Gram, 4 Tab, Chew, Q15Min, PRN: Other (See Comment) glucose 40% oral gel: 15 Gram, 37.5 mL, Oral, Q15Min, PRN: Other (See Comment) hydrOXYzine hydrochloride: 25 mg, Oral, At Bedtime, PRN: Sleep insulin regular sliding scale: Scale A, SubCutaneous, Q6H labetalol: 10 mg, IV Push, Q3H, PRN: Hypertension lactobacillus acidophilus: 1 Cap, Oral, Daily micafungin: 100 mg, 100 mL/Hr, IV Piggyback, [id number] oxyCODONE: 5 mg, Oral, Q4H, PRN: Pain (Severe 7-10) predniSONE: 10 mg, Oral, Daily predniSONE: 20 mg, Oral, Daily predniSONE: 30 mg, Oral, Daily predniSONE: 40 mg, Oral, Daily predniSONE: 5 mg, Oral, Daily rifAXIMin: 550 mg, Oral, BID Pending Complete cyanocobalamin: 1,000 mcg, IntraMuscular, Daily Documented Medications Documented Aspirin Low Dose 81 [...] Oral, Daily, 30 Cap, 0 Refill(s), Medications (33) Active Scheduled: (18) aspirin 81 mg chew tab 81 mg 1 Tab, Feeding Tube, Daily atorvastatin 40 mg tab 40 mg 1 Tab, Oral, At Bedtime atovaquone 750 mg/5 mL liq 750 mg 5 mL, Oral, BID carvedilol 12.5 mg tab 12.5 mg 1 Tab, Oral, BID docusate sodium 100 mg cap 100 mg 1 Cap, Oral, BID enoxaparin 60 mg/0.6 mL inj 115 mg 1.15 mL, SubCutaneous, [id number] famotidine 20 mg tab 20 mg 1 Tab, Oral, Daily guaiFENesin 200 mg/10 mL liq 400 mg 20 mL, Oral, Q4HInt insulin regular 1 unit/0.01 mL inj 3mL Scale A, SubCutaneous, Q6H lactobacillus acidophilus cap 1 Cap, Oral, Daily micafungin sodium 100 mg, IV Piggyback, [id number] polyethylene glycol 3350 pwd 17 g pkt 17 Gram 1 Packet, Oral, Daily predniSONE 10 mg tab 30 mg 3 Tab, Oral, Daily predniSONE 10 mg tab 10 mg 1 Tab, Oral, Daily predniSONE 20 mg tab 40 mg 2 Tab, Oral, Daily predniSONE 20 mg tab 20 mg 1 Tab, Oral, Daily predniSONE 5 mg tab 5 mg 1 Tab, Oral, Daily rifaXIMIN 550 mg tab 550 mg 1 Tab, Oral, BID Continuous: (0) PRN: (15) albuterol-ipratropium inh 3 mL 3 mL, Nebulized Inhalation, Q4H dextrose 50% 25 g/50 mL inj syr 25 Gram 50 mL, IV Push, Q15Min dextrose 50% 25 g/50 mL inj syr 25 Gram 50 mL, IV Push, Q15Min dextrose 50% 25 g/50 mL inj syr 25 Gram 50 mL, IV Push, Q15Min dextrose 50% 25 g/50 mL inj syr 12.5 Gram 25 mL, IV Push, Q15Min glucagon 1 mg/1 mL inj 1 mg 1 mL, IntraMuscular, Q15Min glucose 4 g tab 16 Gram 4 Tab, Chew, Q15Min glucose 40% gel 15 g 15 Gram 37.5 mL, Oral, Q15Min hydrOXYzine hcl 25 mg tab 25 mg 1 Tab, Oral, At Bedtime labetalol 100 mg/20 mL inj 10 mg 2 mL, IV Push, Q3H LORazepam 2 mg/mL inj 0.5 mg 0.25 mL, IV Push, BID metoprolol 5 mg/5 mL inj 5 mg 5 mL, IV Push, Q3H ondansetron 4 mg/2 mL inj 4 mg 2 mL, IV Push, Q4H oxyCODONE 5 mg tab 5 mg 1 Tab, Oral, Q4H QUEtiapine 25 mg tab 12.5 mg 0.5 Tab, Oral, BID Problem list: Medical Hip pain, right / SNOMED CT 9686269752 / Confirmed At risk for sleep apnea / IMO 27162058 / Confirmed At risk for violence / IMO 29708701 / Confirmed Concussion / SNOMED CT 2850478824 / Confirmed concussion with loss of memory+ Disease caused by 2019 novel coronavirus / SNOMED CT 0525521134 / Confirmed Problem added by a rule: [id number]. Fall / SNOMED CT 5327098 / Confirmed HTN (hypertension) / SNOMED CT 5862485680 / Confirmed Depression / SNOMED CT 0972488757 / Confirmed Numbness and tingling / SNOMED CT 1181904445 / Confirmed numbness and tingling right thigh area to toes Osteoarthritis / SNOMED CT 5149906290 / Confirmed Pain / SNOMED CT 79844354 / Confirmed right buttocks pain Leg pain, right / SNOMED CT 210790877 / Confirmed sleep apnea / SNOMED CT 481228192 / Confirmed Insomnia / SNOMED CT 094097003 / Confirmed Tremor / SNOMED CT 41945757 / Confirmed, Active Problems (17) At risk for sleep apnea At risk for violence Bipolar I disorder, current or most recent episode depressed, with psychotic features with catatonia Concussion Depression Disease caused by 2018 novel coronavirus Fall H/O non-Hodgkin's lymphoma Hip pain, right HTN (hypertension) Insomnia Leg pain, right Numbness and tingling Osteoarthritis Pain sleep apnea Tremor Objective Intake and Output - VS/Measurements Vitals Signs (last 24 hrs) Last Charted Minimum Maximum Temp 99.6 (JUN 19 15:00) 97.8 (JUN 19 08:00) H 99.8 (JUN 19 11:03) Mon HR 107 (JUN 19 15:00) 61 (JUN 19 11:03) 107 (JUN 19 15:00) Resp Rate 20 (JUN 19 15:00) 18 (JUN 18 18:00) 20 (JUN 19 15:) SBP H 143 (JUN 19 15:00) 126 (JUN 19 08:00) H 143 (JUN 19:00) DBP L 9 (JUN 19:) L 9 (JUN 19:) 81 (JUN 19 11:03) MAP 99 (JUN 19:03) 88 (JUN 19 08:00) 99 (JUN 19 11:03) SpO2 96 (JUN 19:) 96 (JUN 19:) 100 (JUN 18 18:) General: confused, lethargiic , Not alert and oriented. Eye: Pupils are equal, round and reactive to light, Extraocular movements are intact. HENT: Normocephalic. Respiratory: Lungs are clear to auscultation, Respirations are non-labored, Breath sounds are equal, Symmetrical chest wall expansion. Cardiovascular: Normal rate, Regular rhythm, No murmur, No gallop. Gastrointestinal: Soft, Non-tender, Non-distended, No organomegaly. Integumentary: Warm, Dry, Intact, No rash. Neurologic: Not alert, Not oriented. Electrolytes([facility]) Results (Current Encounter/Past 24 Hours) Sodium Level 145 mmol/L 06/19/2021 05:01 Potassium Level 5.1 mmol/L 06/19/2021 05:01 Chloride Level 116 mmol/L NH 06/19/2021 05:01 Carbon Dioxide Level 27 mmol/L 06/19/2021 05:01 Anion Gap 7 LOW 06/19/2021 05:01 Blood Urea Nitrogen 25 mg/dL NH 06/19/2021 05:01 Glucose Level 136 mg/dL NH 06/19/2021 05:01 Calcium Level 8.0 mg/dL LOW 06/19/2021 05:01 Creatinine Level 0.60 mg/dL 06/19/2021 05:01 Blood Gases (Current Encounter/Past 24 Hours) No Blood Gas Results Found (Past 24 Hours) JUN 19 04:47 145 H 116 H 25 / H 136 5.1 27 0.60 \ JUN 19 04:47 \ L 8.1 / 8.5 190 / L 25.1 \ Radiology Results (Last 48 hours) [id number] -- 06/07/2021 12:36 CR Chest 1 Vw Portable (06/18/2021 09:25) Result: PORTABLE CHEST 06/18/2021 6:00 AM HISTORY: Pneumonia.COMPARISON: Previous day .FINDINGS: The heart is stable in size. The lung gilman demonstrate nosignificant change in the perihilar opacities, left greater than right.There is no pneumothorax. The support devices are in good position.IMPRESSION: There has been no significant interval change .Continued follow-up recommended.Images reviewed, interpreted, and dictated by Dr. Milagros Nathan.Transcribed by Álvaro Hoover (R).I have personally viewed, interpreted and dictated the examination. Ihave read and agree with the above final transcribed report. MRI Brain WO (06/18/2021 14:14) Result: MRI OF THE BRAINHISTORY: Dementia, confusion, Covid.PROCEDURE: Multiplanar MR imaging of the brain was performed in multipleMR sequences .FINDINGS: Motion artifact limits many images. Limited images theproximal cord are unremarkable. The ventricles are normal in size. Thereis no extra-axial fluid or midline shift. There is no evidence of acutehemorrhage. Flow-voids are appropriate. Diffusion-weighted imagesdemonstrate no evidence of acute CVA. Limited images of the paranasalsinuses show mucosal thickening of multiple ethmoid air cells.IMPRESSION: No acute intracranial process.Mucosal thickening of multiple ethmoid air cells.Images reviewed, interpreted, and dictated by Dr. Zelalem Linn.Transcribed by Ana Salinas PA-C.I have personally viewed, interpreted and dictated the examination. Ihave read and agree with the above final transcribed report. CR Chest 1 Vw Portable (06/19/2021 08:00) Result: PORTABLE CHEST 06/19/2021 4:00 AM HISTORY: Dyspnea.COMPARISON: 22 hours prior.FINDINGS: The heart is proper size. The mediastinum is unremarkable.There are worsening right lung and stable left lung pulmonary opacitiesconsistent with bilateral pneumonia. There is no pneumothorax. Theosseous structures are unremarkable. A feeding tube remains in place.IMPRESSION: Bilateral pneumonia.Images reviewed, interpreted, and dictated by Dr. Zelalem Linn.Transcribed by Elisabet Dawson.I have personally viewed, interpreted and dictated the examination. Ihave read and agree with the above final transcribed report. Assessment 1. Multifactorial ATN secondary to infection/contrast-induced nephropathy in setting of being on DEMETRI inhibitors 2. Hypernatremia 3. Mild acidosis, non-anion gap secondary to REBECCA 4. PE 5. Covid pneumonitis Plan -improvement in Kidney function with creatinine down to 0.6 -Mild elevation of CK not clinically significant -None oliguric, UOP with goo urine output -Avoid nephrotoxins, please keep MAP above 65, Avoid IV Contrast -strict intake and output -currently on Water to 70 ml/hour with NA:145 -Thanks for consultation, follow along with you Florence Kennedy MD Electronically signed by [facility] Conversion Permanent Mold Supervisor Cerner at 12/18/2022 9:06 AM CDT documented in this encounter Plan of Treatment Not on file documented as of this encounter Visit Diagnoses Not on filedocumented in this encounter
--- OUTSIDE RECORDS SUMMARY | 2025-03-08 13:15 | XMS_ITS | Encounter Summary ---
Author Organization [facility] ([place], [place], [place], [place]) Address [address] [place] [address] Care Team Providers Care Administrative Liaison Name Role Phone Unavailable Primary Care Provider Unavailabl e Encounter Details Date Type Department Care Team (Late st Contact Info) Description 06/09/2021 Transcribed Document [facility] [place] Family Medicine [address] [place] [address] ProviderTg MD [address] [place] [address] Social History Tobacco Use Types Packs/Day Years Used Date Smoking Tobacco: Never Assessed Comments Unknown Sex and Gender Information Value Date Recorded Sex Assigned at Not on file Legal Sex Female 2:39 PM CDT Gender Identity Not on file Sexual Orientation Not on file documented as of this encounter Miscellaneous Notes * Cerner Conversion Note - Tg ProviderMD - 06/09/2021 5:21 PM CDT Patient: SUDHA TIMMONS Age: 75 Years Sex: Female : 1945 Subjective Patient seen and examined date of service 06/09/2021. Patient more confused today unable to carry a conversation. No focal neurological deficits. Increased oxygen requirements, have consulted pulmonary critical care. Patient not a reliable historian and unable to provide review of systems. Vital Signs T: 36.6 ??C TMIN: 36.6 ??C TMAX: 37.1 ??C HR: 110(Monitored) RR: 18 BP: 111/80 SpO2: 92% Oxygen Settings (Last) Oxygen Therapy Mode: High humidity, high flow therapy (06/09/21 16:09:00) Oxygen Flow Rate: 60 Liter/Min (06/09/21 16:09:00) Intake & Output Totals Last 24 Hours (7a-7a) Input Total: 435.5 mL Output Total: 2200 mL Balance: -1764.5 mL Physical Exam General: [Alert and disoriented, well nourished, no acute distress]. Neurologic: [Awake, alert, and disoriented, follows all commands, answers some questions, blankly staring, no focal neurological deficits moving arms and legs in bed equally]. Eye: [Normal conjunctiva]. HENT: [Normocephalic, normal hearing, moist oral mucosa, no scleral icterus]. Neck: [Supple, no JVD]. Lungs: [Clear to auscultation, non-labored respiration]. Heart: [Normal rate, regular rhythm, no murmur, 1+ pitting LE edema bilaterally]. Abdomen: [Soft, non-tender, [...] urine culture + veliz sensitive e coli -Continue Rocephin and doxy, no prn Tylenol with transaminitis Acute hypoxic respiratory failure due to COVID-19 pneumonia and R Pulmonary embolism, POA, worsening -Vaccinated with Pfizer per son -Abgs noted -Continuous oxygen monitoring, uptitrated to highflow FiO2 60% -Precautions in place -Continue dexamethasone increased to 10 iv bid, remdesivir, inhaler, empiric antibiotics Rocephin and doxycycline, trend inflammatory markers -Pulm CC following -ID consulted, ordered Actemra, changed Rocephin to Cefdinir R Pulmonary embolism -CTA noted: Multiple small [...] troponin -Likely reactive from COVID and tachycardia -EKG reviewed with attending, no ischemic changes -Patient denies cp -ECHO noted, EF 35% -Cardiology following: making med adjustments Acute on chronic metabolic encephalopathy, worsening -CT hea neg -Ammonia 33 to 44 to 33, continue lactulose -Alert and conversational upon my evaluation on admission, no focal neurological deficits, with increased confusion 06/09 -Per nursing patient has hx of baseline dementia, not a reliable medical/medicine historian -Pulm rechecking lithium level Bilateral LE edema -D-dimer elevated 10/01 covid -No hx of CHF, Echo from 2018 with normal EF, no excess IVF at this time -LE US NEG -ECHO EF 35% -Giving one time lasix 40 IV Hypernatremia -Mild 147 to 149, IVF adjustments by Pulm with D5W, monitor Bipolar disorder: Resume home lithium 30 bid, confirmed dose with pharmacist, lithium level low on admission Morbid obesity: BMI 45.8, complicates all aspects of care and resp failure with suspected OHS component Hx of non-Hodgkin's lymphoma DVT ppx: Lovenox 40 q12h FULL CODE, confirmed with patient on admission, no living will, two living children son Shawn daughter Harley . DISPO: Clinical deconditioning from NC to optiflow today with increased confusion. Discussed with son Shawn . Also discussed with patient's 98 year old father. ID and Pulm consulted. HIGH RISK FOR INTUBATION. Expect patient will need SNF at discharge since she lives with 98 year old father. Time spent: 50 minutes. IDesi PA-C, personally evaluated the patient forming the plan of care above. Dr. Marielle Sommer available to answer patient plan of care questions and evaluate the patient if needed. Patient also discussed with ID and Pulm CC teams. VTE Prophylaxis - Medical Enoxaparin 115 mg, SubCutaneous, Inj, [id number], Routine, Start 06/09/21 21:00:00 EDT, 06/09/21 21:00:00 EDT ([facility]) Sequential Compression Device Start: 06/07/21 14:19:00 EDT, Bilateral, Length: Knee High, While patient is in bed, Continuous Order ([facility]) Medications Actemra + Sodium Chloride 0.9% intravenous solution 100 mL aspirin, 81 mg= 1 Tab, Oral, Daily [...] PRN lactobacillus acidophilus, 1 Cap, Oral, Daily lactulose, 20 Gram= 30 mL, Oral, Q6H lisinopril, 2.5 mg= 0.5 Tab, Oral, Daily lithium, 300 mg= 1 Cap, Oral, BID Lopressor, 5 mg= 5 mL, IV Push, Q6H, PRN Lovenox, 115 mg= 0.77 mL, 1 mg/kg, SubCutaneous, [id number] Mucinex, 1200 mg= 2 Tab, Oral, BID pantoprazole, 40 mg= 1 Tab, Oral, Daily remdesivir Zofran, 4 mg= 2 mL, IV Push, Q4H, PRN Diagnostic Results Radiology Results (Last 48 hours) [id number] -- 06/07/2021 12:36 US Veins LE Duplex [...] interpreted, and dictated by Milagros Nathan MD Lab Results Test Name Test Result Date/Time pH Art 7.52 (High) 06/09/2021 12:23 EDT pCO2 Art 28.4 mmHg (Low) 06/09/2021 12:23 EDT pO2 Art 57.7 mmHg (Low) 06/09/2021 12:23 EDT HCO3 Art 22.9 mmol/L 06/09/2021 12:23 EDT BE Art 0.8 mmol/L 06/09/2021 12:23 EDT sO2 Art 91.3 % (Low) 06/09/2021 12:23 EDT tHb Art 11.3 Gram/dL (Low) 06/09/2021 12:23 EDT FHHb 8.6 % 06/09/2021 12:23 EDT ctO2 14.3 mmol/L 06/09/2021 12:23 EDT Delivery Device Type Art HFNC 06/09/2021 12:23 EDT Temperature, F Art 98.6 Deg F 06/09/2021 12:23 EDT Art Blood Gas (ABG) Site Right Radial 06/09/2021 12:23 EDT Acceptable Kevin's Test Art Acceptable 06/09/2021 12:23 EDT Ventilator Mode Art N/A 06/09/2021 12:23 EDT Oxygen Flow Rate Art 7.0 Liter 06/09/2021 12:23 EDT Comment Art supine 06/09/2021 12:23 EDT ABG Num of Draw Attempts 1 06/09/2021 12:23 EDT Sodium Level 149 mmol/L (High) 06/09/2021 06:30 EDT Potassium Level 3.8 mmol/L 06/09/2021 06:30 EDT Chloride Level 120 mmol/L (High) 06/09/2021 06:30 EDT Carbon Dioxide Level 22 mmol/L 06/09/2021 06:30 EDT Anion Gap 11 06/09/2021 06:30 EDT Glucose Level 115 mg/dL (High) 06/09/2021 06:30 EDT Blood Urea Nitrogen 18 mg/dL 06/09/2021 06:30 EDT Creatinine Level 1.00 mg/dL 06/09/2021 06:30 EDT eGFR >60 mL/min/1.73m2 06/09/2021 06:30 EDT eGFR NonAfrican 54 mL/min/1.73m2 (Low) 06/09/2021 06:30 EDT Bun/Creatinine 18.0 06/09/2021 06:30 EDT Calcium Level 9.3 mg/dL 06/09/2021 06:30 EDT Protein Total 5.9 Gram/dL (Low) 06/09/2021 06:30 EDT Albumin Level 2.4 Gram/dL (Low) 06/09/2021 06:30 EDT Globulin 3.5 Gram/dL 06/09/2021 06:30 EDT A/G Ratio 0.7 (Low) 06/09/2021 06:30 EDT Bilirubin Total 0.9 mg/dL 06/09/2021 06:30 EDT Alk Phos 101 Units/Liter 06/09/2021 06:30 EDT AST 210 Units/Liter (High) 06/09/2021 06:30 EDT ALT 143 Units/Liter (High) 06/09/2021 06:30 EDT Magnesium Level 2.1 mg/dL 06/09/2021 06:30 EDT Ammonia Level 33.0 uMol/L (High) 06/09/2021 14:57 EDT Phosphorus 2.7 mg/dL 06/09/2021 14:27 EDT Phosphorus 2.4 mg/dL (Low) 06/09/2021 06:30 EDT CRP 10.10 mg/dL (High) 06/09/2021 06:30 EDT Lactate Dehydrogenase 770 Units/Liter (High) 06/09/2021 06:30 EDT Calcium Ionized 1.14 mmol/L 06/09/2021 14:27 EDT Calcium Ionized 1.21 mmol/L 06/09/2021 06:30 EDT WBC 9.3 K/uL 06/09/2021 06:30 EDT RBC 3.34 Million/uL (Low) 06/09/2021 06:30 EDT Hgb 11.0 g/dL (Low) 06/09/2021 06:30 EDT Hct 34.2 % 06/09/2021 06:30 EDT MCV 102.4 fL (High) 06/09/2021 06:30 EDT MCH 32.9 pg (High) 06/09/2021 06:30 EDT MCHC 32.2 Gram/dL 06/09/2021 06:30 EDT Platelet Count 276 K/uL 06/09/2021 06:30 EDT MPV 10.8 fL 06/09/2021 06:30 EDT RDW 12.7 % 06/09/2021 06:30 EDT Neut % 87.0 % (High) 06/09/2021 06:30 EDT Neut # 8.12 K/uL (High) 06/09/2021 06:30 EDT Lymph % 8.6 % (Low) 06/09/2021 06:30 EDT Lymph # 0.80 x10(3)/uL (Low) 06/09/2021 06:30 EDT [place] % 3.9 % 06/09/2021 06:30 EDT [place] # 0.36 K/uL 06/09/2021 06:30 EDT Eos % 0.1 % 06/09/2021 06:30 EDT Eos # .01 x10(3)/uL 06/09/2021 06:30 EDT Baso % 0.1 % 06/09/2021 06:30 EDT Baso # .01 x10(3)/uL 06/09/2021 06:30 EDT nRBC 0.030 (High) 06/09/2021 06:30 EDT Slide Review No 06/09/2021 06:30 EDT IG# 0.03 x10(3)/uL 06/09/2021 06:30 EDT IG% 0.30 % 06/09/2021 06:30 EDT Procalcitonin 0.37 ng/mL 06/09/2021 06:30 EDT Ferritin Level 42501.5 ng/mL (High) 06/09/2021 06:30 EDT Electronically signed by Keven, [facility] Conversion Director Of Sustainability Cerner at 12/18/2022 9:13 AM CDT documented in this encounter Plan of Treatment Not on file documented as of this encounter Visit Diagnoses Not on filedocumented in this encounter
--- OUTSIDE RECORDS SUMMARY | 2025-03-08 13:15 | XMS_ITS | Encounter Summary ---
Author Organization [facility] [employer] ([place], [place], [place], [place]) Address [address] [place] [address] Care Team Providers Care Industrial Boilermaker Name Role Phone Unavailable Primary Care Provider Unavailabl e Encounter Details Date Type Department Care Team (Late st Contact Info) Description 06/19/2021 Transcribed Document [facility] Pulm & Critical Care Medicine [address] [place] [address] [address] [place] [address] Enrique Lindsey MD [address] [facility] [address] [place] [address] Social History Tobacco Use Types Packs/Day Years Used Date Smoking Tobacco: Never Assessed Comments Unknown Sex and Gender Information Value Date Recorded Sex Assigned at Not on file Legal Sex Female 2:39 PM CDT Gender Identity Not on file Sexual Orientation Not on file documented as of this encounter Miscellaneous Notes * Cerner Conversion Note - Enrique Lindsey MD - 06/19/2021 10:34 AM EDT Patient: SUDHA TIMMONS Age: 75 years Sex: Female : 1945 Associated Diagnoses: None Author: ENRIQUE LINDSEY MD Basic Information HPI: Patient is a 75 year old [...] a goal 90-94% high risk for apsiration 06/12 Optiflow has been weaned to 50/50. Cr remains 2 with rising BUN 58. She is negative 576 in last 24 hours. Nephrology now following remains on D5 @ 75. CK rising and now above 2000. Afebrile however WBC rising now 13. Plans for Corpak placement today as pt with poor PO intake and decreased participation. Patient is currently saturation 96% on OptiFlow 50 L/min/50 rate is 117. Temperature T-max 99 T-current 97.3. Current sodium is 145 from 148, potassium 3.8 chloride 114 bicarb 28 BUN 58 creatinine is 2 magnesium 2.7 CRP 4.07 decreased from 6.84 CK is increased 2152 from 1500 white blood cells increased 13.4 from 10 no eosinophils D-dimer increased from 2.95 currently 3.61 ferritin had decreased by 50% from 6002 3600. Patient lithium level was 0.6 06/13 Remains with tenuous status, nursing concerned with pt increased o2 requirement however in review of flow sheet with noted saturations 94-98%. On Flow 60 and 50%. Afebrile, WBC noted 12. Cr 1.8, neg 560 in last 24 hours. 06/16: Resting in bed on 5L HFNC. Awake, but with ongoing confusion and attempting to pull at lines. Patient has baseline dementia. No events overnight per RN. Leukocytosis worsening, Tmax 99.5. Creatinine stable, good UOP and negative I&O balance. LDH and d-dimer trending up, ferritin trending down. Tolerating TF. 06/17: Patient seen and examined at bedside. Patient with COVID-19 pneumonia and pulmonary embolism on significant respiratory support. Worsening hypoxia noted. Now on 8 L/min supplemental oxygen. Hemodynamically stable. Mental status sahu she is alert but confused unable to participate in conversation. Neurology consulted. Head CT scan at the time of admission negative for any acute intracranial pathology. Tolerating tube feeds well via CorPak. Chest x-ray independently interpreted and it showed worsening bilateral infiltrates as compared to prior. 06/18: Patient seen and examined on 4L NC. She is awake, but remains confused and unable to converse appropriately. He is hemodynamically stable and afebrile. WBC trending down today. LDH trending down as well. MRI of brain pending completion. She is tolerating current TF with last BM 06/16. She has had 2.8L of UOP for overall fluid balance of -969ml. 06/19: Resting in bed, on 2.5L NC. No events overnight, per RN. Continues to have ongoing confusion. MRI brain yesterday revealed mucosal thickening of multiple ethmoid air cells, but no other acute intracranial process. Labs stable, afebrile. Good UOP and positive I&O balance. Cleared for PO diet. Intake & Output Totals Last 24 Hours (7a-7a) Intake (25 Events) Medications (260.25 mL) Enteral Feeding Amount (600 mL) Supplement Amount Consumed (200 mL) Output (2 Events) Hamlin Catheter (200 mL) Urine Voided (Volume) (1 mL) Input Total: 1060.25 mL Output Total: 201 mL Balance: 859.25 mL Review of Systems Neurologic: Confusion. Unable to obtain: Due to clinical condition, Due to altered mental status. Health Status Allergies: Allergic Reactions (Selected) Severity Not Documented Anaprox- Rash. Codeine- No reactions were documented. Latex- Itching. Naproxen- No reactions were documented., Allergies (4) Active Reaction Anaprox Rash codeine None Documented Latex Itching naproxen None Documented Current medications: (Selected) Inpatient Medications Ordered Ativan: 0.5 mg, IV Push, BID, PRN: Agitation Core.5 mg, Oral, BID Dextrose 50% injection: [...] Q3H, PRN: Tachycardia Lovenox: 115 mg, SubCutaneous, [id number] MiraLax: 17 Gram, Oral, Daily Pepcid: 20 mg, Oral, Daily Robitussin: 400 mg, Oral, Q4HInt SEROquel: 12.5 mg, Oral, BID, PRN: Agitation Zofran: 4 mg, IV Push, Q4H, PRN: Nausea aspirin: 81 mg, Feeding Tube, Daily atovaquone: 750 mg, Oral, BID cefTRIAXone: 2 Gram, 100 mL/Hr, IV Piggyback, [id number] glucagon: 1 mg, IntraMuscular, Q15Min, PRN: Other [...] micafungin: 100 mg, 100 mL/Hr, IV Piggyback, [id number] oxyCODONE: 5 mg, Oral, Q4H, PRN: Pain [...] tab 12.5 mg 1 Tab, Oral, BID cefTRIAXone 2 Gram, IV Piggyback, [id number] enoxaparin 60 mg/0.6 mL inj 115 mg 1.15 mL, SubCutaneous, [id number] famotidine 20 mg tab 20 mg 1 Tab, Oral, Daily guaiFENesin 200 mg/10 mL liq 400 mg 20 mL, Oral, Q4HInt insulin regular 1 unit/0.01 mL inj 3mL Scale A, SubCutaneous, Q6H lactobacillus acidophilus cap 1 Cap, Oral, Daily micafungin sodium 100 mg, IV Piggyback, [id number] polyethylene glycol 3350 pwd 17 g pkt [...] mg 0.5 Tab, Oral, BID Problem list: All Problems Hip pain, right / SNOMED CT 4015947918 / Confirmed At risk for sleep apnea / IMO 52340220 / Confirmed At risk for violence / IMO 46231585 / Confirmed Bipolar I disorder, current or most recent episode depressed, with psychotic features with catatonia / SNOMED CT 20811133 / Confirmed Concussion / SNOMED CT 4617812059 / Confirmed concussion with loss of memory+ Disease caused by 2019 novel coronavirus / SNOMED CT 4670412945 / Confirmed Problem added by a rule: [id number]. Fall / SNOMED CT 5033362 / Confirmed H/O non-Hodgkin's lymphoma / SNOMED CT 0442648934 / Confirmed HTN (hypertension) / SNOMED CT 6278435341 / Confirmed Depression / SNOMED CT 9580143464 / Confirmed Numbness and tingling / SNOMED CT 8429690163 / Confirmed numbness and tingling right thigh area to toes Osteoarthritis / SNOMED CT 5737414590 / Confirmed Pain / SNOMED CT 59409647 / Confirmed right buttocks pain Leg pain, right / SNOMED CT 905288801 / Confirmed sleep apnea / SNOMED CT 848260089 / Confirmed Insomnia / SNOMED CT 611695805 / Confirmed Tremor / SNOMED CT 47687538 / Confirmed, Active Problems (17) At risk [...] Last Charted Minimum Maximum Temp 98.2 (JUN 18 18:00) 98.2 (JUN 18 18:00) 98.9 (MAY 20 10:38) Mon HR 105 (JUN 18 18:00) 105 (MAY 20 15:39) 111 (MAY 20 10:38) Resp Rate 18 (JUN 18 18:00) 18 (JUN 18 18:00) 20 (MAY 20 10:38) SBP 127 (JUN 18 18:00) 127 (MAY 20 18:00) H 151 (MAY 20 15:39) DBP 78 (JUN 18 18:00) 78 (MAY 20 18:00) H 92 (MAY 20 10:38) MAP 115 (JUN 18 15:39) 109 (MAY 20 10:38) 115 (MAY 20 15:39) SpO2 100 (JUN 18 18:00) 94 (JUN 18 10:38) 100 (JUN 18 18:00) General: Mild distress, on HFNC at 4 LPM, confused , Morbidly obese. Eye: Pupils are equal, round and reactive to light, Normal conjunctiva. HENT: Normocephalic, Oral mucosa is moist. Neck: Supple, Non-tender, No lymphadenopathy. Respiratory: Tachypnea, Increased work of breathing noted. Diminished breath sounds at bases. No rales or rhonchi or wheezes. . Cardiovascular: Normal rate, Normal peripheral perfusion, Mild LE edema , tachycardia . Gastrointestinal: Soft, Non-tender, Normal bowel sounds. Support: Gastric tube ( Nasal ). Genitourinary: Hamlin cath. Musculoskeletal: Normal range of motion, No deformity. Integumentary: Warm, Dry, No rash. Neurologic: Alert, confused. Psychiatric: Unable to assess. . Review / Management Results review: Labs (Last four charted values) WBC 8.5 (JUN 19) 8.2 (JUN 18) H 12.9 (JUN 17) H 14.3 (MAY 18) HB L 8.1 (JUN 19) L 8.9 (MAY 20) L 8.9 (MAY 19) L 9.4 (MAY 18) HCT L 25.1 (JUN 19) L 27.7 (OCT 20) L 27.7 (OCT 19) L 29.5 (OCT 18) Plt 190 (JUN 19) 210 (OCT 20) 206 (OCT 19) 201 (OCT 19) Na 145 (JUN 19) 145 (MAY 20) 143 (OCT 19) 144 (OCT 18) K 5.1 (OCT 21) 5.0 (OCT 20) 4.7 (OCT 19) 5.1 (OCT 18) Cl H 116 (MAY 21) H 116 (OCT 20) H 115 (OCT 19) H 117 (OCT 18) CO2 27 (OCT 21) 26 (OCT 20) 25 (OCT 19) 24 (OCT 18) BUN H 25 (OCT 21) 21 (OCT 20) H 23 (OCT 19) H 26 (OCT 18) Cr 0.60 (MAY 21) 0.60 (OCT 20) 0.70 (OCT 19) 0.80 (OCT 18) Glu R H 136 (MAY 21) H 116 (OCT 20) H 141 (OCT 19) H 214 (MAY 18) Ca L 8.0 (JUN 19) 8.5 (OCT 20) L 8.2 (MAY 19) L 8.3 (MAY 18) Lactic 1.6 (MAY 19) 1.0 (MAY 09) PT 11.4 (JUN 08) 11.4 (JUN 07) 11.4 (JUN 07) INR 1.1 (JUN 08) 1.1 (JUN 07) 1.1 (JUN 07) PTT 23.2 (JUN 07) AST 26 (JUN 19) 29 (OCT 20) 36 (OCT 19) H 87 (MAY 15) ALT 28 (JUN 19) 27 (MAY 20) 22 (OCT 19) 24 (OCT 15) ALK P 106 (JUN 19) 110 (OCT 20) 130 (OCT 19) 88 (OCT 15) T Bili 0.3 (JUN 19) 0.4 (MAY 20) 0.3 (MAY 19) 0.4 (MAY 15) PTN L 4.4 (JUN 19) L 4.5 (OCT 20) L 4.7 (OCT 19) L 5.0 (OCT 15) ALB L 2.1 (JUN 19) L 2.2 (OCT 20) L 2.1 (OCT 19) L 2.3 (MAY 15) Troponin H 0.094 (MAY 20) H 0.147 (MAY 18) H 0.447 (OCT 16) H 0.438 (MAY 16) . MAY 18 14:50 144 H 117 H 26 / H 214 5.1 24 0.80 \ OCT 15 04:00 \ L 10.9 / H 12.0 231 / 34.3 \Blood Gases (Current Encounter/Past 24 Hours) No Blood Gas Results Found (Past 24 Hours) JUN 19 04:47 145 H 116 H 25 / H 136 5.1 27 0.60 \ JUN 19 04:47 \ L 8.1 / 8.5 190 / L 25.1 \ Radiology Results (Last 48 hours) [id number] -- 06/07/2021 12:36 CR Chest 1 Vw [...] dictated by Dr. Zelalem Linn.Transcribed by Elisabet Dawson. Blood Gases (Current Encounter/Past 24 Hours) No Blood Gas Results Found (Past 24 Hours) ECHO Impression: Moderate left ventricular hypertrophy. Akinetic apex and normal basal segments. Visually estimated ejection fraction 35% +/- 5%. No hemodynamically significant valvular heart disease. Measurements Summary: LVEDd: 4.89 cm LVESd: 3.85 cm IVSEd: 1.47 cm AO Root:2.9 cm LVPWd: 1.4 cm Impression and Plan Pulmonary Acute hypoxemic respiratory failure due to COVID 19 pneumonia and ARDS - Ongoing COVID-19 pneumonia with ARDS. Pulmonary vascular congestion : and need for D5w for hypernatremia and rebecca Fully vaccinated per report Acute Right lower lobe PE. CTA chest: multiple small filling defects in RLL pulmonary artery consistent with PE, patchy bilateral groundglass opacities LE Duplex: negative for DVT Cardiac NSTEMI Likely type 2 Hypertension and tachycardia ECHO: EF 35% per cardiology team : Abnormal Echo: findings are new and most c/w stress-induced cardiomyopathy, which should improved with medical therapy and treatment of infectious condition. Renal REBECCA - Improving. Non oliguric. Normalized Creat. Hypernatremia - Improved. US RUQ: on Stable mild right hydronephrosis of uncertain etiology or significance Patient has respiratory alkalosis with metabolic acidosis and hyperchloremia Elevated CK due to viral illness vs rhabdomyolysis - Improving. ID Sepsis present on adm: due to UTI and pneumonia COVID-19 positive 06/07/21 COVID 19 pneumonia with ARDS. Acute E coli UTI. Urine culture: E. coli Elevated inflammatory markers Elevated procal - Improving. GI Transaminitis - Improving. Hyperammonemia - improved US RUQ: Stable mild right hydronephrosis of uncertain etiology or significance Heme/Onc Anemia History of Non-Hodgkin's lymphoma Neuro Bipolar disorder Dementia Alert but confused MRI brain 06/18 - mucosal thickening of multiple ethmoid air cells, but no other acute intracranial process Endocrine Hyperglycemia - Glycemic control Morbid Obesity with BMI of 45.8 PLAN: Supplemental O2 to maintain O2 saturations 90-94% - currently on 2.5LPM. High risk for further decompensation. She is a full code. High risk for intubation. Optiflow or NIPPV as needed for increased work of breathing Unable to perform Conscious self proning due to dementia and confusional state. Combivent inhaler Mucinex 1200mg BID IS/FV COVID order set Neuro following. MRI of brain did not show any acute pathology. Cardiology is following prior and now signed off Renal following ID following: Anbx: Rocephin, Adriana, Atovaquone IV Dexamethasone changed to Prednisone taper over few days. S/p Remedesivir Actemra IV : given 06/10/21 Significantly elevated IL-6 levels. will trend. Strongyloides ab negative Lactobacillus Monitor ammonia level, currently on rifaximin. Normalized ammonia levels. Pt was on lithium/ stopped - pt on Seroquel Speech following - cleared for PO diet Glycemic control - SSI ACHS. Recommend to keep blood sugars less than 180. May add Lantus if needed. Acute PE. On Lovenox 1 mg/kg every 12 hours. Will transition to oral anticoagulant agents if no procedures planned in next few days. Prophylaxis: Protonix and Lovenox 115 mg Q12H. Labs in AM FULL CODE Prognosis : guarded. high risk for deterioration and need for mechanical vent I saw and examined the patient at bedside, obtained medical history, reviewed labs, diagnostics and chest imaging data. I personally and independently visualized and interpreted chest imaging data on PACS. I formulated diagnosis and treatment plans. I made all medical decisions as above. Complex case. documented in this encounter Plan of Treatment Not on file documented as of this encounter Visit Diagnoses Not on filedocumented in this encounter
--- OUTSIDE RECORDS SUMMARY | 2025-03-08 13:15 | XMS_ITS | Encounter Summary ---
Author Organization [employer] ([place], [place], [place], [place]) Address [address] [place] [address] Care Team Providers Care Cleaner Wall Name Role Phone Unavailable Primary Care Provider Unavailabl e Encounter Details Date Type Department Care Team (Late st Contact Info) Description 06/09/2021 Transcribed Document [facility] [place] Family Medicine [address] [place] [address] ProviderTg MD [address] [place] [address] Social History Tobacco Use Types Packs/Day Years Used Date Smoking Tobacco: Never Assessed Comments Unknown Sex and Gender Information Value Date Recorded Sex Assigned at Not on file Legal Sex Female 2:39 PM CDT Gender Identity Not on file Sexual Orientation Not on file documented as of this encounter Miscellaneous Notes * Cerner Conversion Note - Historical ProviderMD - 06/09/2021 8:56 PM CDT RX Interventions Entered On: 06/09/2021 20:57 EDT Performed On: 06/09/2021 20:56 EDT by Nacho Kirk Resident Pharmacist Clinical Interventions Chart Review : Yes Nacho Kirk Resident Pharmacist - 06/09/2021 20:56 EDT Chart Review Chart Review, Order : Consulted to put meds in D5W Chart Review, Notes : Found no meds that can be put into D5W instead of NS Chart Review, Value : 0 Dollar Chart Review, Time : 20 Minute(s) Nacho Kirk Resident Pharmacist - 06/09/2021 20:56 EDT documented in this encounter Plan of Treatment Not on file documented as of this encounter Visit Diagnoses Not on filedocumented in this encounter
--- OUTSIDE RECORDS SUMMARY | 2025-03-08 13:15 | XMS_ITS | Encounter Summary ---
Author Organization [employer] ([place], [place], [place], [place]) Address [address] [place] [address] Care Team Providers Care Entry Level Receptionist Name Role Phone Unavailable Primary Care Provider Unavailabl e Encounter Details Date Type Department Care Team (Late st Contact Info) Description 06/14/2021 Transcribed Document [facility] [place] Family Medicine [address] [place] [address] ProviderTg MD [address], [place] [id number] Social History Tobacco Use Types Packs/Day Years Used Date Smoking Tobacco: Never Assessed Comments Unknown Sex and Gender Information Value Date Recorded Sex Assigned at Not on file Legal Sex Female 2:39 PM CDT Gender Identity Not on file Sexual Orientation Not on file documented as of this encounter Miscellaneous Notes * Cerner Conversion Note - Historical ProviderMD - 06/14/2021 2:03 PM CDT Attempt to Treat, PT Entered On: 06/14/2021 14:03 EDT Performed On: 06/14/2021 14:03 EDT by Darrel Mccollum PHYSICAL THERAPIST Attempt to Treat Unable to Treat Due To : Patient on hold Inability to Treat Comment : Per nursing mitten restrants , overall non responsive. Notification : Nurse Darrel Self PHYSICAL THERAPIST - 06/14/2021 14:03 EDT documented in this encounter Plan of Treatment Not on file documented as of this encounter Visit Diagnoses Not on filedocumented in this encounter
--- OUTSIDE RECORDS SUMMARY | 2025-03-08 13:15 | XMS_ITS | Encounter Summary ---
Author Organization [employer] ([place], [place], [place], [place]) Address [address] [place] [address] Care Team Providers Care Electrician Wiring Name Role Phone Unavailable Primary Care Provider Unavailabl e Encounter Details Date Type Department Care Team (Late st Contact Info) Description 06/15/2021 Transcribed Document [facility] [place] Family Medicine [address] [place] [address] ProviderTg MD [address] [place] [address] Social History Tobacco Use Types Packs/Day Years Used Date Smoking Tobacco: Never Assessed Comments Unknown Sex and Gender Information Value Date Recorded Sex Assigned at Not on file Legal Sex Female 2:39 PM CDT Gender Identity Not on file Sexual Orientation Not on file documented as of this encounter Miscellaneous Notes * Cerner Conversion Note - Tg ProviderMD - 06/15/2021 5:00 AM CDT Chart Check - Review Order Profile Entered On: 06/15/2021 4:16 EDT Performed On: 06/15/2021 5:00 EDT by Ran Chew RN-PATIENT CARE BEDSIDE NON-EXEMPT Chart Check Powerplans Initiated/Discontinued as Appropriate : Yes All Active Orders Reviewed : Yes Ran Chew RN-PATIENT CARE BEDSIDE NON-EXEMPT - 06/15/2021 4:16 EDT documented in this encounter Plan of Treatment Not on file documented as of this encounter Visit Diagnoses Not on filedocumented in this encounter
--- OUTSIDE RECORDS SUMMARY | 2025-03-08 13:15 | XMS_ITS | Encounter Summary ---
Author Organization [employer] ([place], [place], [place], [place]) Address [address] [place] [address] Care Team Providers Care Clinical Office Technician Name Role Phone Unavailable Primary Care Provider Unavailabl e Encounter Details Date Type Department Care Team (Late st Contact Info) Description 06/10/2021 Transcribed Document [facility] Cardiology [address] [place] [address] Rubén Vásquez MD [address] [facility] [address] [place] [address] Social History Tobacco Use Types Packs/Day Years Used Date Smoking Tobacco: Never Assessed Comments Unknown Sex and Gender Information Value Date Recorded Sex Assigned at Not on file Legal Sex Female 2:39 PM CDT Gender Identity Not on file Sexual Orientation Not on file documented as of this encounter Miscellaneous Notes * Cerner Conversion Note - Rubén Vásquez MD - 06/10/2021 7:53 AM EDT Patient: SUDHA TIMMONS Age: 75 years Sex: Female : 1945 Associated Diagnoses: None Author: RUBÉN VÁSQUEZ MD-CAR BASIC Primary Cad Application Support Specialist: None Subjective NAD Health Status Current medications: Home Medications (14) Active acetaminophen-HYDROcodone 325 mg-5 mg oral tablet 1 Tab, PRN, Oral, BID Aspirin Low Dose 81 mg oral delayed release tablet 81 mg = 1 Tab, Oral, Daily atorvastatin 40 mg oral tablet 40 mg = 1 Tab, Oral, At Bedtime furosemide 20 mg oral tablet 20 mg = 1 Tab, Oral, EveryOtherDay hydrOXYzine pamoate 25 mg oral capsule 25 mg = 1 Cap, PRN, Oral, At Bedtime lisinopril 2.5 mg oral tablet 2.5 mg = 1 Tab, Oral, Daily lithium 300 mg oral capsule 300 mg = 1 Cap, Oral, BID Metoprolol Tartrate 50 mg oral tablet 50 mg = 1 Tab, Oral, BID Multiple Vitamins oral tablet 1 Tab, Oral, Daily pantoprazole 40 mg oral delayed release tablet 40 mg = 1 Tab, Oral, Daily polyethylene glycol 3350 oral powder for reconstitution 17 Gram, Oral, Daily potassium chloride 10 mEq oral capsule, extended release 10 mEq = 1 Cap, Oral, Daily QUEtiapine 300 mg oral tablet 300 mg = 1 Tab, Oral, At Bedtime Vitamin B12 1000 mcg oral tablet 1,000 mcg = 1 Tab, Oral, Daily , Medications (20) Active Scheduled: (14) albuterol-ipratropium CFC free 4 g inh 2 Puff, Inhalation, RT_QID aspirin EC 81 mg tab 81 mg 1 Tab, Oral, Daily carvedilol 6.25 mg tab 6.25 mg 1 Tab, Oral, BID ceFAZolin 2 Gram 100 mL, IV Piggyback, Q8HInt dexAMETHasone 10 mg/1 mL inj 10 mg 1 mL, IV Push, Daily enoxaparin 150 mg/1 mL inj 115 mg 0.77 mL, SubCutaneous, [id number] guaiFENesin 600 mg ER tab 1,200 mg 2 Tab, Oral, BID lactobacillus acidophilus cap 1 Cap, Oral, Daily lactulose 20 g/30 mL oral liq 20 Gram 30 mL, Oral, Q6H lisinopril 5 mg tab 2.5 mg 0.5 Tab, Oral, Daily lithium carbonate 300 mg cap 300 mg 1 Cap, Oral, BID pantoprazole EC 40 mg tab 40 mg 1 Tab, Oral, Daily remdesivir , IV Piggyback, [id number] sulfamethox/trimethoprim 400/80 mg tab 1 Tab, Oral, MoWeFr Continuous: (1) Dextrose 5% in Water 1,000 mL 1,000 mL, IntraVENous, 50 mL/Hr PRN: (5) cloNIDine 0.1 mg tab 0.1 mg 1 Tab, Oral, Q4H hydrALAZINE 20 mg/1 mL inj 10 mg 0.5 mL, IV Push, Q6H hydrOXYzine hcl 25 mg tab 25 mg 1 Tab, Oral, At Bedtime metoprolol 5 mg/5 mL inj 5 mg 5 mL, IV Push, Q6H ondansetron 4 mg/2 mL inj 4 mg 2 mL, IV Push, Q4H Problem list: Active Problems (16) At risk for sleep apnea Bipolar I disorder, current or most recent episode depressed, with psychotic features with catatonia Concussion Depression Disease caused by 2019 novel coronavirus Fall H/O non-Hodgkin's lymphoma Hip pain, right HTN (hypertension) Insomnia Leg pain, right Numbness and tingling Osteoarthritis Pain sleep apnea Tremor Objective Intake and Output 24 hour intake: Total 100 ml 24 hour output: Total 250 ml VS/Measurements Vitals Signs (last 24 hrs) Last Charted Minimum Maximum Temp 98.6 (JUN 10 05:00) 97.3 (JUN 10:49) 98.5 (JUN 09 09:02) Apical HR H 122 (JUN 09 12:18) H 122 (JUN 09 10:36) H 122 (JUN 09 10:36) Mon HR 114 (JUN 10:39) 99 (JUN 09 22:30) 133 (JUN 09 09:02) Resp Rate 18 (JUN 10 05:00) 16 (JUN 09:49) 18 (JUN 09 09:02) SBP 106 (JUN 10 05:00) 94 (JUN 09 21:40) 134 (JUN 09 09:49) DBP 64 (JUN 10 05:00) 64 (JUN 09 22:30) H 93 (JUN 10 01:00) MAP 77 (JUN 10 05:00) 73 (JUN 09 22:30) 99 (JUN 10 01:00) SpO2 L 89 (JUN 10:39) L 89 (JUN 10 05:39) 96 (JUN 10 00:10) General: Alert and oriented, No acute distress. Eye: Pupils are equal, round and reactive to light. HENT: Normocephalic. Neck: Supple, Non-tender. Respiratory: Respirations are non-labored, Breath sounds are equal, Symmetrical chest wall expansion. Cardiovascular: Normal rate, Regular rhythm, No edema. Gastrointestinal: Soft, Non-tender, Non-distended, Normal bowel sounds. Genitourinary: No costovertebral angle tenderness. Musculoskeletal: Normal range of motion. Integumentary: Warm, Dry, Intact. Neurologic: Alert, Oriented, No focal deficits. Psychiatric: Cooperative, Appropriate mood & affect. Results Review Radiology Results (Last 48 hours) [id number] -- 06/07/2021 12:36 CTA Chest (06/09/2021 10:19) [...] interpreted, and dictated by Milagros Nathan MD Indications: Chest pain. Impression: Moderate left ventricular hypertrophy. Akinetic apex and normal basal segments. Visually estimated ejection fraction 35% +/- 5%. No hemodynamically significant valvular heart disease. Measurements Summary: LVEDd: 4.89 cm LVESd: 3.85 cm IVSEd: 1.47 cm AO Root:2.9 cm LVPWd: 1.4 cm Impression and Plan IMPRESSION: * Elevated cardiac enzymes in the setting of COVID-19 pneumonia and UTI. * Abnormal Echo: findings are new and most c/w stress-induced cardiomyopathy, which should improved with medical therapy and treatment of infectious condition. * Acute hypoxic respiratory failure A. Sepsis a. COVID-19 pneumonia b. Urinary tract infection c. Pulmonary embolism * Hypertension * Dyslipidemia * Bipolar disorder * Transaminitis * Anemia * History of non-Hodgkin's lymphoma PLAN; 06/10/2021 Continue lovenox for PE for now. Recommend transitioning to Eliquis or Xarelto prior to d/c if no plans for procedural care. Increase lisinopril to 2.5mg bid. CHF education Continue Strict I / O. Sign off and f/u in office. 06/09/2021 Change metoprolol to coreg Otherwise Continue medications. 06/08/21 Echocardiogram: invasive vs. non-invasive coronary workup depending on Echo findings and clinical course. Serial cardiac enzymes and EKG Increase Lovenox to weight-based dosing for non-STEMI Continue aspirin, beta-joseph, DEMETRI We will defer statin for now with plan to initiate once medical issues improved documented in this encounter Plan of Treatment Not on file documented as of this encounter Visit Diagnoses Not on filedocumented in this encounter
--- OUTSIDE RECORDS SUMMARY | 2025-03-08 13:15 | XMS_ITS | Encounter Summary ---
Author Organization [email or web address] ([place], [place], [place], [place]) Address [address] [place] [address] Care Team Providers Care Hostage Negotiator Name Role Phone Unavailable Primary Care Provider Unavailabl e Encounter Details Date Type Department Care Team (Late st Contact Info) Description 06/19/2021 Transcribed Document [facility] [place] Medicine [address] [place] [address] ProviderTg MD [address] [place] [address] Social History Tobacco Use Types Packs/Day Years Used Date Smoking Tobacco: Never Assessed Comments Unknown Sex and Gender Information Value Date Recorded Sex Assigned at Not on file Legal Sex Female 2:39 PM CDT Gender Identity Not on file Sexual Orientation Not on file documented as of this encounter Miscellaneous Notes * Cerner Conversion Note - Tg ProviderMD - 06/19/2021 1:29 PM CDT Consult Phone Call Documentation Entered On: 06/20/2021 9:38 EDT Performed On: 06/19/2021 13:29 EDT by Jcakie Hanson, PATIENT PROCESS SUPERVISOR Phone Call for Consults Consult, Additional Information : Called podiatry on 06/20/2021 Jackie Hanson PATIENT PROCESS SUPERVISOR - 06/20/2021 9:38 EDT documented in this encounter Plan of Treatment Not on file documented as of this encounter Visit Diagnoses Not on filedocumented in this encounter
--- OUTSIDE RECORDS SUMMARY | 2025-03-08 13:15 | XMS_ITS | Encounter Summary ---
Author Organization [employer] ([place], [place], [place], [place]) Address [address] [place] [address] Care Team Providers Care Financial Planning Assistant Name Role Phone Unavailable Primary Care Provider Unavailabl e Encounter Details Date Type Department Care Team (Late st Contact Info) Description 06/15/2021 Transcribed Document [facility] [place] Family Medicine [address] [place] [address] ProviderTg MD [address] [place] [address] Social History Tobacco Use Types Packs/Day Years Used Date Smoking Tobacco: Never Assessed Comments Unknown Sex and Gender Information Value Date Recorded Sex Assigned at Not on file Legal Sex Female 2:39 PM CDT Gender Identity Not on file Sexual Orientation Not on file documented as of this encounter Miscellaneous Notes * Cerner Conversion Note - Tg ProviderMD - 06/15/2021 2:00 AM CDT Toddler Caregiver Details Entered On: 06/15/2021 1:12 EDT Performed On: 06/15/2021 2:00 EDT by Ran Chew RN-PATIENT CARE [...] Chew RN-PATIENT CARE BEDSIDE NON-EXEMPT - 06/15/2021 1:12 EDT documented in this encounter Plan of Treatment Not on file documented as of this encounter Visit Diagnoses Not on filedocumented in this encounter
--- OUTSIDE RECORDS SUMMARY | 2025-03-08 13:15 | XMS_ITS | Encounter Summary ---
Author Organization [employer] ([place], [place], [place], [place]) Address [address] [place] [address] Care Team Providers Care Human Service Specialist Name Role Phone Unavailable Primary Care Provider Unavailabl e Encounter Details Date Type Department Care Team (Late st Contact Info) Description 06/09/2021 Transcribed Document [facility] Cardiology [address] [place] [address] Rubén Vásquez MD [address] [facility] [address] [place] [address] Social History Tobacco Use Types Packs/Day Years Used Date Smoking Tobacco: Never Assessed Comments Unknown Sex and Gender Information Value Date Recorded Sex Assigned at Not on file Legal Sex Female 2:39 PM CDT Gender Identity Not on file Sexual Orientation Not on file documented as of this encounter Miscellaneous Notes * Cerner Conversion Note - Rubén Vásquez MD - 06/09/2021 1:15 AM EDT Patient: SUDHA TIMMONS Age: 75 years Sex: Female : 1945 Associated Diagnoses: None Author: RUBÉN VÁSQUEZ MD-CAR BASIC PCP: Primary Kick Press Setter: None Subjective NAD Health Status Allergies: Allergic Reactions (Selected) Severity Not Documented Anaprox- Rash. Codeine- No reactions were documented. Latex- Itching. Naproxen- No reactions were documented., Allergies (4) Active Reaction Anaprox Rash codeine None Documented Latex Itching naproxen None Documented Current medications: (Selected) Inpatient Medications Ordered Combivent Respimat CFC free 100 mcg-20 mcg/inh inhalation aerosol: 2 Puff, Inhalation, RT_QID Lopressor: 5 mg, IV Push, Q6H, PRN: Tachycardia Lovenox: 110 mg, SubCutaneous, Q12H Zofran: 4 mg, IV Push, Q4H, PRN: Nausea aspirin: 81 mg, Oral, Daily cefTRIAXone: 2 Gram, 100 mL/Hr, IV Piggyback, [id number] cloNIDine: 0.1 mg, Oral, Q4H, PRN: Hypertension dexAMETHasone: 6 mg, IV Push, [id number] doxycycline: 100 mg, Oral, BID hydrALAZINE: 10 mg, IV Push, Q6H, PRN: Hypertension hydrOXYzine hydrochloride: 25 mg, Oral, At Bedtime, PRN: Sleep lactulose: 20 Gram, Oral, Q6H lisinopril: 2.5 mg, Oral, Daily lithium: 300 mg, Oral, BID metoprolol tartrate: 50 mg, Oral, BID pantoprazole: 40 mg, Oral, Daily remdesivir: 250 mL/Hr, IV Piggyback, [id number] Prescriptions Prescribed Metoprolol Tartrate 50 mg oral [...] 1 Cap, Oral, BID, 30 Cap, 0 Refill(s), Home Medications (14) Active aspirin 81 mg [...] mg = 1 Tab, PRN, Oral, Q4H , Medications (17) Active Scheduled: (12) albuterol-ipratropium CFC free 4 g inh 2 Puff, Inhalation, RT_QID aspirin EC 81 mg tab 81 mg 1 Tab, Oral, Daily cefTRIAXone 2 Gram, IV Piggyback, [id number] dexAMETHasone 4 mg/1 mL inj 6 mg 1.5 mL, IV Push, [id number] doxycycline hyclate 100 mg cap 100 mg 1 Cap, Oral, BID enoxaparin 150 mg/1 mL inj 110 mg 0.73 mL, SubCutaneous, Q12H lactulose 20 g/30 mL oral liq 20 Gram 30 mL, Oral, Q6H lisinopril 5 mg tab 2.5 mg 0.5 Tab, Oral, Daily lithium carbonate 300 mg cap 300 mg 1 Cap, Oral, BID metoprolol tartrate 50 mg tab 50 mg 1 Tab, Oral, BID pantoprazole EC 40 mg tab 40 mg 1 Tab, Oral, Daily remdesivir , IV Piggyback, [id number] Continuous: (0) PRN: (5) cloNIDine 0.1 mg [...] IV Push, Q4H Problem list: All Problems Hip pain, right / SNOMED CT 3857638705 / Confirmed At risk for sleep apnea / IMO [id number] / Confirmed Bipolar I disorder, current or most recent episode depressed, with psychotic features with catatonia / SNOMED CT 32033083 / Confirmed Concussion / SNOMED CT 3349227573 / Confirmed concussion with loss of memory+ Disease caused by 2019 novel coronavirus / SNOMED CT 7832434623 / Confirmed Problem added by a rule: [id number]. Fall / SNOMED CT 5370135 / Confirmed H/O non-Hodgkin's lymphoma / SNOMED CT 6331922222 / Confirmed HTN (hypertension) / SNOMED CT 8392608419 / Confirmed Depression / SNOMED CT 1428266725 / Confirmed Numbness and tingling / SNOMED CT 0393276478 / Confirmed numbness and tingling right thigh area to toes Osteoarthritis / SNOMED CT 3301808687 / Confirmed Pain / SNOMED CT 23378547 / Confirmed right buttocks pain Leg pain, right / SNOMED CT 830969881 / Confirmed sleep apnea / SNOMED CT 824591875 / Confirmed Insomnia / SNOMED CT 743569256 / Confirmed Tremor / SNOMED CT 48047158 / Confirmed, Active Problems (16) At risk [...] 24 hrs) Last Charted Minimum Maximum Temp 97.8 (JUN 08 17:30) 97.8 (JUN 08 17:30) 98 (JUN 08 10:10) Apical HR H 123 (JUN 08 17:26) H 103 (JUN 07 21:40) H 123 (JUN 08 17:26) Mon HR 106 (JUN 08 17:30) 74 (JUN 07 22:52) 117 (JUN 08 10:10) Resp Rate 18 (JUN 08 10:10) 18 (JUN 08 10:10) H 86 (JUN 07 21:30) SBP H 152 (JUN 08 17:30) 133 (JUN 08 05:35) H 166 (JUN 07 20:00) DBP H 126 (JUN 08 17:30) 65 (JUN 07 22:52) H 126 (JUN 08 17:30) MAP 135 (JUN 08 17:30) 94 (JUN 07 22:52) 135 (JUN 08 17:30) SpO2 97 (JUN 08 17:30) L 78 (JUN 08 13:45) 100 (JUN 08 10:10) General: Alert and oriented, No acute distress. [...] Results Review Radiology Results (Last 48 hours) [id number] -- 06/07/2021 12:36 CR Chest 1 Vw [...] interpreted, and dictated by Jacquie Clemente MD US Veins LE Duplex BILAT (06/07/2021 19:36) [...] hydronephrosis of uncertain etiology orsignificance.. Otherwise, unremarkable. Indications:Chest pain. Impression: Moderate left ventricular hypertrophy. Akinetic [...] a. COVID-19 pneumonia b. Urinary tract infection * Hypertension * Dyslipidemia * Bipolar disorder * Transaminitis * Anemia * History of non-Hodgkin's lymphoma PLAN; 06/09/2021 Change metoprolol to coreg Otherwise Continue [...]
--- OUTSIDE RECORDS SUMMARY | 2025-03-08 13:15 | XMS_ITS | Encounter Summary ---
Author Organization [employer] ([place], [place], [place], [place]) Address [address] [place] [address] Care Team Providers Care Perinatal Instructor Name Role Phone Unavailable Primary Care Provider Unavailabl e Encounter Details Date Type Department Care Team (Late st Contact Info) Description 06/19/2021 Transcribed Document [facility] [place] Family Medicine [address] [place] [address] ProviderTg MD [address] [place] [address] Social History Tobacco Use Types Packs/Day Years Used Date Smoking Tobacco: Never Assessed Comments Unknown Sex and Gender Information Value Date Recorded Sex Assigned at Not on file Legal Sex Female 2:39 PM CDT Gender Identity Not on file Sexual Orientation Not on file documented as of this encounter Miscellaneous Notes * Cerner Conversion Note - Tg ProviderMD - 06/19/2021 5:00 PM CDT Chart Check - Review Order Profile Entered On: 06/19/2021 16:40 EDT Performed On: 06/19/2021 17:00 EDT by Radha Nunez RN-PATIENT CARE BEDSIDE NON-EXEMPT Chart Check Powerplans Initiated/Discontinued as Appropriate : Yes All Active Orders Reviewed : Yes Radha Nunez RN-PATIENT CARE BEDSIDE NON-EXEMPT - 06/19/2021 16:40 EDT documented in this encounter Plan of Treatment Not on file documented as of this encounter Visit Diagnoses Not on filedocumented in this encounter
--- OUTSIDE RECORDS SUMMARY | 2025-03-08 13:15 | XMS_ITS | Encounter Summary ---
Author Organization [employer] ([place], [place], [place], [place]) Address [address] [place] [address] Care Team Providers Care Help Desk Specialist Name Role Phone Unavailable Primary Care Provider Unavailabl e Encounter Details Date Type Department Care Team (Late st Contact Info) Description 06/15/2021 Transcribed Document [facility] Radiology [address] [place] [address] Margo Alvarez MD [address] [place] [id number] Social History Tobacco Use Types Packs/Day Years Used Date Smoking Tobacco: Never Assessed Comments Unknown Sex and Gender Information Value Date Recorded Sex Assigned at Not on file Legal Sex Female 2:39 PM CDT Gender Identity Not on file Sexual Orientation Not on file documented as of this encounter Miscellaneous Notes * Cerner Conversion Note - Margo Alvarez MD - 06/15/2021 11:00 AM EDT Patient: SUDHA TIMMONS Age: 75 years Sex: Female : 1945 Associated Diagnoses: None Author: MARGO ALVAREZ MD-INT Basic Information Date of encounter 06/15/21 Patient lying with eyes closed Does not follow commands Remains on optiflow Tolerating her tube feeds. Physical Examination VS/Measurements Vitals Signs (last 24 hrs) Last Charted Minimum Maximum Temp 99.4 (JUN 15 10:04) 98.2 (JUN 15 05:25) 99.5 (JUN 15 08:00) Apical HR H 102 (JUN 14 22:25) H 102 (JUN 14 22:25) H 132 (JUN 14 18:09) Mon HR 89 (JUN 15 10:04) 89 (JUN 15 10:04) 132 (JUN 14 15:43) Resp Rate 16 (JUN 15 10:00) 16 (JUN 14 20:56) H 24 (JUN 14 15:43) SBP 121 (JUN 15 10:04) 116 (JUN 15 05:25) H 194 (JUN 14 21:57) DBP H 91 (JUN 15 10:04) L 58 (JUN 15 01:53) H 159 (JUN 14 21:57) MAP 106 (JUN 15 10:04) 70 (JUN 15 01:53) 175 (JUN 14 21:57) SpO2 100 (JUN 15 10:04) L 89 (JUN 14 15:43) 100 (JUN 14 16:33) General: Mild distress, on optiflow, Not alert and oriented. Eye: Normal conjunctiva. Sclera: Not icteric. HENT: Normocephalic. Neck: Supple, Non-tender. Respiratory: Lungs are clear to auscultation, Breath sounds are equal, Symmetrical chest wall expansion, with scattered rhonchi bilateral, hsa a port on left side of chest. Cardiovascular: Regular rhythm, No edema, tachycardic. Gastrointestinal: Soft, Non-tender, Non-distended, Normal bowel sounds, No organomegaly. Musculoskeletal: No tenderness, No swelling. Integumentary: Warm, [place], Moist. Neurologic: keeps eyes closed and does not follow commands and or interact. , Not alert, Not oriented. Psychiatric: cannot check. Review / Management Labs reviewed. Impression and Plan Acute hypoxemic respiratory failure secondary to covid and concomitant PE -Vaccinated with Pfizer per record review. -Continuous oxygen monitoring, uptitrated on optiflow -Continue dexamethasone 10 iv bid, remdesivir, s/p actemra 10/, scheduled inhaler, empiric abx and ID following. On optiflow. Sepsis due to UTI and COVID-19 pneumonia, POA -On admission Fever 102, heart rate 120s, increased respiratory rate, source UTI and pneumonia -Blood cultures No growth so far -Follow urine culture + veliz sensitive e coli R Pulmonary embolism -CTA noted: Multiple small filling defects in the right lower lobe pulmonary artery consistent with PE -ECHO noted, no R heart strain, CTA noted NO R heart strain -Continue Therapeutic Lovenox Acute kidney injury Likely ATN/MYESHA and meds induced Creatinine trending down and doingbetter Transaminitis -Acetaminophen alcohol level negative -Likely due to COVID-19, -RUQ US noted, normal liver and gb -Stopped prn Tylenol -Hold statin Acute systolic HF -2/2 possible NSTEMI? vs covid? vs chronic, last echo normal from 2018 -ECHO noted, EF 35% -Cardiology following making med adjustments Hypertensive urgency, improving -on coreg and advance dosing Sinus tachycardia -Likely from PE, EKG noted, PRN Lopressor for tachycardia Elevated troponin -Likely reactive from COVID and tachycardia -Patient denies cp -ECHO noted, EF 35% Acute on chronic metabolic encephalopathy, worsening -CT head neg -Per nursing patient has hx of baseline dementia, not a reliable medical/medicine historian -Pulm rechecking lithium level, normal 0.6, Bilateral LE edema -D-dimer elevated 2/2 covid -No hx of CHF, Echo from 2018 with normal EF, no excess IVF at this time -LE US NEG -ECHO EF 35% Hypernatremia: Sodium with rising trend again and resume free water Bipolar disorder: Resumed home lithium 30 bid, confirmed dose with pharmacist, lithium level low on admission to normal 0.6 and lithium in setting of acute worsening delerium has been held now Morbid obesity: BMI 45.8, complicates all aspects of care and resp failure with suspected OHS component Hx of non-Hodgkin's lymphoma DVT ppx: Lovenox therapeutic dose FULL CODE, confirmed with patient on admission, no living will, two living children son Shawn daughter Harley . Placed [place]ak for Tube feeding and Meds Continue optiflow/full dose lovenox with PE and eventual OAC and free water at risk for Deterioration and intubation still. DISPOSITSION : Uncertain at this time Patient admitted with covid and acute respiratory failure worsening with potential for intubation. Time spent with above 30 minutes documented in this encounter Plan of Treatment Not on file documented as of this encounter Visit Diagnoses Not on filedocumented in this encounter
--- OUTSIDE RECORDS SUMMARY | 2025-03-08 13:15 | XMS_ITS | Encounter Summary ---
Author Organization [employer] ([place], [place], [place], [place]) Address [address] [place] [address] Care Team Providers Care Bioinformatics Computer Scientist Name Role Phone Unavailable Primary Care Provider Unavailabl e Encounter Details Date Type Department Care Team (Late st Contact Info) Description 06/09/2021 Transcribed Document [facility] [place] [address] [place] [address] ProviderTg MD [address] [place] [address] Social History Tobacco Use Types Packs/Day Years Used Date Smoking Tobacco: Never Assessed Comments Unknown Sex and Gender Information Value Date Recorded Sex Assigned at Not on file Legal Sex Female 2:39 PM CDT Gender Identity Not on file Sexual Orientation Not on file documented as of this encounter Miscellaneous Notes * Cerner Conversion Note - Tg ProviderMD - 06/09/2021 8:57 AM CDT Initial Discharge Planning Entered On: 06/09/2021 9:01 EDT Performed On: 06/09/2021 8:57 EDT by Patsy Koehler Social Worker Msw Initial Assessment I Previously Documented Living Environment : No qualifying data available. Living Situation : Home Patsy Koehler Social Worker Msw - 06/09/2021 8:57 EDT Patient Lives With : Parent(s) Patsy Koehler Social Worker Msw - 06/11/2021 9:55 EDT Is the Patient a Caregiver at Home? : No Emergency Contact #1 : shawn solorzano Emergency Contact #1 Emergency Contact #1 Relationship : son Emergency Contact #2 : Sai Garrett Emergency Contact #2 Emergency Contact #2 Relationship : father Enter Doctors Name : Binh Turner Does Patient have PCP Listed? : Yes Patsy Koehler Social Worker [facility] [place] - 06/09/2021 8:57 EDT Initial Assessment II Sensory and Motor Deficits : Weakness Patsy Koehler Social Worker [facility] [place] - 06/09/2021 8:57 EDT Current Home Treatments and Equipment : Bedside commode, Shower chair, Walker Patsy Koehler Social Worker [facility] [place] - 06/11/2021 9:55 EDT Discharge Needs I Anticipated Discharge Date : 06/17/2021 EDT Patsy Koehler Social Worker [facility] [place] - 06/11/2021 9:55 EDT Anticipated Discharge To, CM : Rehabilitation Unit, long term facility Current Home Treatment/Equipment : Current Home Treatment/Equipment No qualifying data available. Post Acute/Home Treatments : None Documentation Status Complete : Yes Patsy Koehler Social Worker [facility] [place] - 06/09/2021 8:57 EDT Discharge Needs II Professional Skilled Services : Professional Skilled Services No qualifying data available. Patsy Koehler Social Worker [facility] 06/09/2021 8:57 EDT Needs Assistance with Transportation : Yes Patsy Koehler Social Worker [facility] [place] - 06/11/2021 9:55 EDT Discharge Options Discussed with Patient : DME, Home Health, Short term rehabilitation Patient Discharge Goal : long term facility Patsy Koehler Social Worker [facility] [place] - 06/09/2021 8:57 EDT Narrative Note Historical Narrative Note : HD#2, ELOS-not recorded, RRS-moderate, Boost-4 75 yo female admitted for sepsis due to UTI and COVID-19 pneumonia.H/O Bipolar DO, Dementia Patient lives with her 98 yo father and son, Shawn. She has a BSC, walker and shower chair. Patsy Koehler Social Worker [facility] [place] - 06/09/21 09:01:03 HD#2, ELOS-not recorded, RRS-moderate, Boost-4 75 yo female admitted for sepsis due to UTI and COVID-19 pneumonia.H/O Bipolar DO, Dementia. IV abx initiated for COVID treatment. Currently, on 6L . Patient lives with her 98 yo father and son, Shawn [phone]. She has a BSC, walker and shower chair. Needs assistance as needed. Will call pt's son to obtain information regarding any HHS or rehab stays. DCP-Anticipate rehab once medically for dc. Patsy Koehler V, Rotary Dump Operator Tick Inspector - 06/09/21 16:04:07 Narrative Note : HD#2, ELOS-not recorded, RRS-moderate, Boost-4 75 yo female admitted for sepsis due to UTI and COVID-19 pneumonia.H/O Bipolar DO, Dementia. IV abx initiated for COVID treatment. Currently, on 6L . Patient lives with her 98 yo father and son, Shawn [phone]. She has a BSC, walker and shower chair. Needs assistance with ADLS as needed. Will call pt's son to obtain information regarding any HHS or rehab stays. DCP-[facility] vs SNF. Patsy Koehler V, Rotary Dump Operator Tick Inspector - 06/11/2021 9:55 EDT documented in this encounter Plan of Treatment Not on file documented as of this encounter Visit Diagnoses Not on filedocumented in this encounter
--- OUTSIDE RECORDS SUMMARY | 2025-03-08 13:15 | XMS_ITS | Encounter Summary ---
Author Organization [employer] ([place], [place], [place], [place]) Address [address] [place] [address] Care Team Providers Care Solar Sales Advisor Name Role Phone Unavailable Primary Care Provider Unavailabl e Encounter Details Date Type Department Care Team (Late st Contact Info) Description 06/10/2021 Transcribed Document [facility] Pulm & Critical Care Medicine [address] [place] [address] Nadiya Chambers MD [address] [place], [place] [id number] Social History Tobacco Use Types Packs/Day Years Used Date Smoking Tobacco: Never Assessed Comments Unknown Sex and Gender Information Value Date Recorded Sex Assigned at Not on file Legal Sex Female 2:39 PM CDT Gender Identity Not on file Sexual Orientation Not on file documented as of this encounter Miscellaneous Notes * Cerner Conversion Note - Nadiya Chambers MD - 06/10/2021 12:57 PM EDT Patient: SUDHA TIMMONS Age: 75 years Sex: Female : 1945 Associated Diagnoses: None Author: NADIYA CHAMBERS MD Basic Information CC: respiratory failure HPI: [...] RN reports noted increased confusion particularly nocturnally. Intake & Output Totals Last 24 Hours (7a-7a) Intake (29 Events) Continuous Infusions (550 mL) Medications (871 mL) Enteral Additional Water Given (150 mL) Output (2 Events) Hamlin Catheter (1050 mL) Input Total: 1571 mL Output Total: 1050 mL Balance: 521 mL Review of Systems Unable to obtain: Due to clinical condition, Due to altered mental status. Health Status Allergies: Allergic Reactions (Selected) Severity Not Documented Anaprox- Rash. Codeine- No reactions were documented. Latex- Itching. Naproxen- No reactions were documented., Allergies (4) Active Reaction Anaprox Rash codeine None Documented Latex Itching naproxen None Documented Current medications: (Selected) Inpatient Medications Ordered Bactrim: 1 Tab, Oral, MoWeFr Combivent Respimat CFC free 100 mcg-20 mcg/inh inhalation aerosol: 2 Puff, Inhalation, RT_QID Core.25 mg, Oral, BID D5W 1,000 mL: 50 mL/Hr, IntraVENous, Stop: 06/10/21 12:54:00 EDT Lopressor: 5 mg, IV Push, Q6H, PRN: Tachycardia Lovenox: 115 mg, SubCutaneous, [id number] Mucinex: 1,200 mg, Oral, BID Zofran: 4 [...] Sleep lactobacillus acidophilus: 1 Cap, Oral, Daily lactulose: 20 Gram, Oral, Q6H lisinopril: 2.5 mg, Oral, BID lithium: 300 mg, Oral, BID pantoprazole: 40 mg, Oral, Daily remdesivir: 250 mL/Hr, IV Piggyback, [id number] Documented Medications Documented Aspirin Low Dose 81 [...] mL inj 115 mg 0.77 mL, SubCutaneous, [id number] guaiFENesin 600 mg ER tab 1,200 mg 2 Tab, Oral, BID lactobacillus acidophilus cap 1 Cap, Oral, Daily lactulose 20 g/30 mL oral liq 20 Gram 30 mL, Oral, Q6H lisinopril 5 mg tab 2.5 mg 0.5 Tab, Oral, BID lithium carbonate 300 mg cap 300 mg 1 Cap, Oral, BID pantoprazole EC 40 mg tab 40 mg 1 Tab, Oral, Daily remdesivir , IV Piggyback, [id number] sulfamethox/trimethoprim 400/80 mg tab 1 Tab, Oral, [...] 2 mL, IV Push, Q4H Problem list: Medical Hip pain, right / SNOMED CT 2970949328 / Confirmed At risk for sleep apnea / IMO 30881013 / Confirmed Concussion / SNOMED CT 0973210741 / Confirmed concussion with loss of memory+ Disease caused by 2019 novel coronavirus / SNOMED CT 0172425300 / Confirmed Problem added by a rule: [id number]. Fall / SNOMED CT 3453513 / Confirmed HTN (hypertension) / SNOMED CT 2909774422 / Confirmed Depression / SNOMED CT 0102799832 / Confirmed Numbness and tingling / SNOMED CT 6029940162 / Confirmed numbness and tingling right thigh area to toes Osteoarthritis / SNOMED CT 0319865751 / Confirmed Pain / SNOMED CT 25560704 / Confirmed right buttocks pain Leg pain, right / SNOMED CT 125022772 / Confirmed sleep apnea / SNOMED CT 929027534 / Confirmed Insomnia / SNOMED CT 435091816 / Confirmed Tremor / SNOMED CT 52569466 / Confirmed, Active Problems (16) At risk [...] (JUN 10 01:49) 98.2 (JUN 09 21:30) Apical HR H 122 (JUN 09 12:18) H 122 (JUN 09 12:18) H 122 (JUN 09 12:18) Mon HR 121 (JUN 10 11:48) 99 (JUN 09 22:30) 127 (JUN 10 01:00) Resp Rate 20 (JUN 10:) 18 (JUN 09 14:00) 20 (JUN 10 11:03) SBP L 89 (JUN 10 11:03) L 89 (JUN 10 11:03) 116 (JUN [...] (JUN 08) 6.3 (JUN 07) HB L 10.8 (JUN 10) L 11.0 (MAY 11) L 9.9 (MAY 10) L 10.4 (JUN 07) HCT 34.3 (JUN 10) 34.2 (JUN 09) L 30.3 (JUN 08) L 32.4 (JUN 07) Plt 247 (MAY 12) 276 (MAY 11) 220 (MAY 10) 207 (MAY 09) Na H 150 (MAY 12) H 149 (MAY 11) H 147 (MAY 10) 142 (MAY 09) K 3.7 (JUN 10) 3.8 (MAY 11) 3.6 (MAY 10) L 3.2 (MAY 09) Cl H 121 (MAY 12) H 120 (MAY 11) H 120 (MAY 10) 111 (MAY 09) CO2 21 (MAY 12) 22 (MAY 11) 21 (MAY 10) 22 (MAY 09) BUN H 32 (MAY 12) 18 (JUN 09) 13 (MAY 10) 14 (MAY 09) Cr H 1.50 (MAY 12) 1.00 (MAY 11) 0.60 (MAY 10) 0.80 (MAY 09) Glu R H 135 (MAY 12) H 115 (MAY 11) 106 (MAY 10) H 117 (MAY 09) Ca 8.9 (MAY 12) 9.3 (MAY 11) 8.9 (MAY 10) 8.8 (MAY 09) Lactic 1.0 (MAY 09) PT 11.4 (MAY 10) 11.4 (OCT 09) 11.4 (OCT 09) INR 1.1 (MAY 10) 1.1 (MAY 09) 1.1 (MAY 09) PTT 23.2 (MAY 09) AST H 128 (MAY 12) H 210 (MAY 11) H 420 (OCT 10) H 347 (JUN 07) ALT H 98 (JUN 10) H 143 (MAY 11) H 181 (MAY 10) H 134 (MAY 09) ALK P 88 (JUN 10) 101 (MAY 11) 99 (MAY 10) 104 (JUN 07) T Bili 0.5 (JUN [...] data available Radiology Results (Last 48 hours) [id number] -- 06/07/2021 12:36 CTA Chest (06/09/2021 10:19) [...] dictated by Dr. Milagros Nathan.Transcribed by Álvaro Cavazos(R). Blood Gases (Current Encounter/Past 24 Hours) pH Art 7.50 HI 06/10/2021 11:32 pCO2 Art 25.1 LOW 06/10/2021 11:32 pO2 Art 87.3 06/10/2021 11:31 HCO3 Art 19.5 LOW 06/10/2021 11:32 BE Art -2.5 LOW 06/10/2021 11:32 sO2 Art 97.2 06/10/2021 11:31 tHb Art 11.2 LOW 06/10/2021 11:32 FHHb 2.8 NA 06/10/2021 11:31 ctO2 15.2 NA 06/10/2021 11:31 FIO2 Art 60 NA 06/10/2021 11:31 Delivery Device Type Art OptiFlow NA 06/10/2021 11:31 Temperature, F Art 98.6 NA 06/10/2021 11:31 Art Blood Gas (ABG) Site Right Radial 06/10/2021 11:31 Acceptable Kevin's Test Art Acceptable NA 06/10/2021 11:31 Ventilator Mode Art N/A NA 06/10/2021 11:31 Oxygen Flow Rate Art 60.0 NA 06/10/2021 11:31 Comment Art supine NA 06/10/2021 11:31 ABG Num of Draw Attempts 1 NA 06/10/2021 11:31 PaO2/FiO2 calculated 146 NA 06/10/2021 11:31 ECHO Impression: Moderate left ventricular hypertrophy. Akinetic [...] DVT Cardiac NSTEMI Hypertension ECHO: EF 35% per cardio : Abnormal Echo: findings are new and most c/w stress-induced cardiomyopathy, which should improved with medical therapy and treatment of infectious condition. Renal Normal creatinine prior now worsening Hypernatremia ongoing Hypokalemia prior US RUQ: Stable mild right hydronephrosis of [...] work of breathing - currently optiflow 60/60 Encouragement conscious proning is ideal however given pt confusion abort Combivent inhaler Mucinex 1200mg BID IS/FV COVID order set Cardiology is following pt on coreg, lisinopril, asa ((((( stop liniopril with rising crea)))) ID consulted Abx Rocephin prior doxy Dexamethasone 10mg BID x5 days, then 10mg daily x5 days Remedesivir Actemra IV : given 06/10 Bactrim ( consider atovaquone defer to ID felice with rising Crea) check strongyloides pending Lactobacillus On lactulose 20g Q6H, (((( stop)))) felice with giving free water monitor ammonia level if needed start rifaximin decrease in am : avoid abd distention hypernatremia D5W @50mL/hr free water 250mL Q6H all antibiotics to D5W as able Pt on lithium Nutrition per primary Glycemic control per primary Prophylaxis: Protonix and Lovenox 115mg Q12H AM labs/CXR Full Code prognosis : guarded : high risk for deterioration and need for mechanical vent thanks valentina cct 35 mins documented in this encounter Plan of Treatment Not on file documented as of this encounter Visit Diagnoses Not on filedocumented in this encounter
--- OUTSIDE RECORDS SUMMARY | 2025-03-08 13:15 | XMS_ITS | Encounter Summary ---
Author Organization [employer] ([place], [place], [place], [place]) Address [address] [place] [address] Care Team Providers Care Ply Splicer Name Role Phone Unavailable Primary Care Provider Unavailabl e Encounter Details Date Type Department Care Team (Late st Contact Info) Description 06/19/2021 Transcribed Document [facility] Family Medicine [address] [place] [address] ProviderTg MD [address] [place] [address] Social History Tobacco Use Types Packs/Day Years Used Date Smoking Tobacco: Never Assessed Comments Unknown Sex and Gender Information Value Date Recorded Sex Assigned at Not on file Legal Sex Female 2:39 PM CDT Gender Identity Not on file Sexual Orientation Not on file documented as of this encounter Miscellaneous Notes * Cerner Conversion Note - Tg ProviderMD - 06/19/2021 1:01 PM CDT Evaluation, Physical Therapy Entered On: 06/20/2021 14:49 EDT Performed On: 06/20/2021 14:29 EDT by VINH JASSO, PT Student General Information, PT Visit Type, PT : Initial evaluation Patient Orders : Order Date Order Ordering 06/07/2021 14:19 PT Evaluation and Treatment Ordered By: CARA DE LA ROSA PA 06/08/2021 16:11 PT Additional Treatment Ordered By: KUSHAL CYR, PT 06/19/2021 10:48 PT Evaluation and Treatment Ordered By: MARGO AMBRIZ MD-INT 06/19/2021 13:01 Physical Therapy Eval and Treat Ordered By: MARGO AMBRIZ MD-INT Active Diagnoses : 06/07/2021 12:00 Altered mental status 06/07/2021 12:00 Sepsis, unspecified organism 06/07/2021 12:00 Urinary tract infection, site not specified Therapy Diagnosis, PT : Decreased strength, deconditioning, and impaired functional mobility Onset of Problem, PT : 06/07/2021 EDT Admission Date : 06/07/2021 12:36 Co-treated by, PT : Occupational Therapist, Physical Therapist Personal Devices : Personal Devices No Devices Recorded Assistive Devices : Assistive Devices No Devices Recorded Isolation Maintained : Droplet General Information Comment, PT : Dx: Acute hypoxemic respitory fx, acute metabolic encephelopathy, acute tubular necrosis, COVID PNA. PMH: Bipolar, obesity, non-hodgkins lymphoma, cognitive and psych issues at baseline. VINH JASSO PT Student - 06/20/2021 14:29 EDT General Status Patient Received Status : Supine in bed Treatment Start Time : 06/20/2021 13:45 EDT Patient Left Status : Supine in bed, Restraint intact, RN/PCT informed, Sitter at bedside, All needs met and within reach (Comment: Virtual sitter. [VINH JASSO PT Student - 06/20/2021 14:29 EDT] ) RN/PCT Informed Comment : Joseluis Castillo'd. Treatment End Time : 06/20/2021 13:56 EDT Treatment Time : 11 Minute(s) VINH JASSO PT Student - 06/20/2021 14:29 EDT History and Environment Living Situation, Therapy : Home Patient Lives With : Parent(s) Persons Providing Information : Patient Home Equipment Therapy, PT : Commode, Shower Equipment, Walker Home Setup : One story Bedroom Location : Main level Bathroom #1 Location : Main level Stairs : Yes Stair Location(s) : Outside Outside Stairs, Number of Steps : 3 Railing Outside : Yes Outside Railing Position : Left, going up Prior LOF Assist with ADL Comment : Unable to gather complete PLOF, history, and environment due to some confusion, but pt is becoming more alert, communicative, and oriented. VINH JASSO PT Student - 06/20/2021 14:29 EDT Intervention Summary O2 Pre-Intervention : Room Air O2 During Intervention : Room Air O2 Post-Intervention : Room Air Therapist Assessment Post-intervention : Vitals not assessed due to pt not showing s/s of distress. VINH JASSO PT Student - 06/20/2021 14:29 EDT Upper Extremity Right UE Active Assist ROM : Impaired VINH JASSO PT Student - 06/20/2021 14:29 EDT Right Upper Extremity Detailed ROM Grid Right Shoulder Flexion Range Active Assist : Deficit VINH JASSO, PT Student - 06/20/2021 14:29 EDT Left UE Active Assist ROM : Impaired VINH JASSO, PT Student - 06/20/2021 14:29 EDT Left Upper Extremity Detailed ROM Grid Left Shoulder Flexion Range Active Assist : Deficit VINH JASSO PT Student - 06/20/2021 14:29 EDT Upper Extremity Comment : OT assessed UE ROM and strength. VINH JASSO PT Student - 06/20/2021 14:29 EDT Lower Extremity RLE ROM Grid Ankle Dorsiflexion (0-20) Ankle Plantarflexion (0-45) Active : Deficit Deficit VINH JASSO, PT Student - 06/20/2021 14:29 EDT VINH JASSO, PT Student - 06/20/2021 14:29 EDT Left Lower Extremity Range of Motion Ankle Dorsiflexion (0-20) Ankle Plantarflexion (0-45) Active : Deficit Deficit VINH JASSO PT Student - 06/20/2021 14:29 EDT VINH JASSO, PT Student - 06/20/2021 14:29 EDT Lower Extremity Comment : Patient demonstrated significant weakness and disuse of extremities secondary to long hospital stay. VINH JASSO PT Student - 06/20/2021 14:29 EDT Functional Mobility Functional MobilityComment : Unable to assess functional mobility due to acuity of illness. Patient is demonstrating slow improvement in medical condition and will hopefully demonstrate improved tolerance to bed mobility. VINH JASSO PT Student - 06/20/2021 14:29 EDT Gait Training/Assessment, PT Gait Assistance Level : Unable to assess/activity not appropriate VINH JASSO PT Student - 06/20/2021 14:29 EDT Wheelchair Mobility Wheelchair Mobility : Unable to assess/activity not appropriate VINH JASSO PT Student - 06/20/2021 14:29 EDT Cognition Assessment, PT Orientation : Unable to assess Follows Basic Command Assessment : Follows basic commands Attention Assessment : Present, Impaired Attention Assessment Comment : Becoming more oriented. JASSO, VINH, PT Student - 06/20/2021 14:29 EDT Edu Topics Physical Therapy Education Grid Role of Physical Therapy : Verbalizes understanding VINH JASSO PT Student - 06/20/2021 14:29 EDT Indication Assesessment, PT Physical Therapy Indicated : Yes PT Problem List : Impaired, activities daily living, Impaired, bed mobility, Impaired, cognition, Impaired, coordination/proprioception, Impaired, endurance tolerance, Impaired, gait, Impaired, sitting balance, Impaired, standing balance, Impaired, strength, Impaired, transfers Potential Barriers To Therapy : Acuity of Illness, Cognitive deficit Rehabilitation Potential : Unable to assess Unable to Assess Due to : Unable to assess due to pt having long hospital stay causing functional decline. VINH JASSO PT Student - 06/20/2021 14:29 EDT Plan of Care, PT PT Tx Plan/Goals Established w Patient : Yes PT Frequency Rehab : Five days per week PT Duration Rehab : Fourteen days PT Treatments Planned : Balance training, Bed mobility training, Gait training, Safety education, Therapeutic exercises, Transfer training VINH JASSO PT Student - 06/20/2021 14:29 EDT Short Term Goals Mobility/Bed Mobility STG PT Grid Goal #1 Goal #2 Activity : Supine to sit Other: Patient will Roll L and R Assist : Assist, maximal Assist, maximal Date to Meet : 06/27/2021 EDT 06/27/2021 EDT Goal Status : Initial goal Initial goal VINH JASSO PT Student - 06/20/2021 14:29 EDT VINH JASSO PT Student - 06/20/2021 14:29 EDT Other PT STG Grid Goal #1 Date to Meet : 06/15/2021 EDT Goal Status : Not met VINH JASSO PT Student - 06/20/2021 14:29 EDT Glove Printer Goals Mobility/Bed Mobility LTG PT Grid Goal #1 Goal #2 Goal #3 Activity : Supine to sit Other: Patient will Roll L and R Sit to stand Assist : Assist, minimal Assist, minimal Assist, moderate Equipment : Walker, front wheel Date to Meet : 07/04/2021 EDT 07/04/2021 EDT 07/04/2021 EDT Goal Status : Intial Goal Intial Goal Intial Goal VINH JASSO PT Student - 06/20/2021 14:29 EDT VINH JASSO PT Student - 06/20/2021 14:29 EDT VINH JASSO PT Student - 06/20/2021 14:29 EDT Transfer LTG Grid Goal #1 Destination : Chair, with arms Type : Stand Pivot Sit Assist : Assist, moderate Equipment : Walker, front wheel Date to Meet : 07/04/2021 EDT Goal Status : Intial Goal VINH JASSO PT Student - 06/20/2021 14:29 EDT Ambulation LTG Grid Goal #1 Goal Status : Not met VINH JASSO PT Student - 06/20/2021 14:29 EDT Treatment Note Subjective Comment : Unable to gather complete subjective comment, but pt stated she liked to drink cold water. Additional Objective Information : PT assessed B Ankle PF/DF AROM, B Knee flexion, B hip flexion and demonstrated weakness. OT assessed UE B shoulder AAROM flexion, B elbow flex/ext AROM. Assessment : Patient presents today with improved condition, impaired functional mobility, weakness, and deconditioning. She was able to initiate some LE AROM and participated with OT in AAROM of her UEs. Patient is a good candidate for skilled therapy to improve functional mobility, strength, and conditioning to reduced further functional decline. VINH JASSO PT Student - 06/20/2021 14:29 EDT Plan for Treatment : Encourage UE/LE ROM and strengthing exercises. Assess bed mobility as tolerated. Consider giving pt therabands for UE strengthening. PT reviewed and agrees. MARSHA PATEL, PT - 06/20/2021 15:46 EDT Pain Assessment Pain Comment : Patient did not state having any pain or shwo any s/s of discomfort. VINH JASSO PT Student - 06/20/2021 14:29 EDT Image 1 - Images currently included in the form version of this document have not been included in the text rendition version of the form. Anticipated Discharge Needs, OT/PT Anticipated Discharge to : Unit, usp (Comment: Patient would benefit from usp placement due to needing 24 hour assistance to care for herself. [VINH JASSO PT Student - 06/20/2021 14:29 EDT] ) Anticipated Home Equipment : None Anticipated D/C Provider Notified : Physical Therapy Recommend Continued Therapy at Discharge : Yes VINH JASSO, PT Student - 06/20/2021 14:[address] [facility] PT Charges PT Charlotteal Moderate Complexity : 1 VINH JASSO PT Student - 06/20/2021 14:29 EDT documented in this encounter Plan of Treatment Not on file documented as of this encounter Visit Diagnoses Not on filedocumented in this encounter
--- OUTSIDE RECORDS SUMMARY | 2025-03-08 13:15 | XMS_ITS | Encounter Summary ---
Author Organization [facility] ([place], [place], [place], [place]) Address [address] [place] [address] Care Team Providers Care Office Services Assistant Name Role Phone Unavailable Primary Care Provider Unavailabl e Encounter Details Date Type Department Care Team (Late st Contact Info) Description 06/19/2021 Transcribed Document [facility] Family Medicine [address] [place] [address] ProviderTg MD [address] [place] [address] Social History Tobacco Use Types [...] ProviderMD - 06/19/2021 1:01 PM CDT Evaluation, Occupational Therapy Entered On: 06/20/2021 15:22 EDT Performed On: 06/20/2021 15:00 EDT by LINDA COVINGTON OTR/Lachelle General Information, OT Visit Type, OT : Re-Evaluation Patient Orders : Order Date Order Ordering 06/07/2021 14:19 OT Evaluation and Treatment Ordered By: CARA DE LA ROSA PA 06/08/2021 16:07 OT Additional Treatment Ordered By: 06/19/2021 10:48 OT Evaluation and Treatment Ordered By: MARGO AMBRIZ MD-INT 06/19/2021 13:01 Occupational Therapy Evaluation and Treatme Ordered By: MARGO AMBRIZ MD-INT Active Diagnoses : 06/07/2021 12:00 Altered mental status 06/07/2021 12:00 Sepsis, unspecified organism 06/07/2021 12:00 Urinary tract infection, site not specified Therapy Diagnosis, OT : Decreased independence in ADLs and functional mobility Admission Date : 06/07/2021 12:36 Co-treated by, OT : Physical Therapist Personal Devices : Personal Devices No Devices Recorded Assistive Devices : Assistive Devices No Devices Recorded Isolation Maintained : Droplet General Information Comment, OT : COVID hypoxic. on continuous EEG LINDA COVINGTON OTR/L - 06/20/2021 15:15 EDT General Status Patient Received Status : Supine in bed Treatment Start Time : 06/20/2021 13:45 EDT Patient Left Status : Supine in bed, RN/PCT informed, All needs met and within reach RN/PCT Informed Comment : DUNCAN agrawal Treatment End Time : 06/20/2021 14:00 EDT Treatment Time : 15 Minute(s) LINDA COVINGTON OTR/Lachelle 06/20/2021 15:15 EDT History and Environment, OT Living Situation, Therapy : Home Patient Lives With : Parent(s) Persons Providing Information : Patient Home Setup : One story Bedroom Location : Main level Bathroom #1 Location : Main level Stairs : Yes Stair Location(s) : Outside Outside Stairs, Number of Steps : 3 Railing Outside : Yes Outside Railing Position : Left, going up LINDA COVINGTON OTR/Lachelle 06/20/2021 15:15 EDT Prior LOF Bathing, OT : Independent Prior LOF Bed Mobility : Independent Prior LOF Upper Body Dressing, OT : Independent Prior LOF Lower Body Dressing, OT : Independent Prior LOF Toileting : Independent Prior LOF Transfer : Independent Prior LOF Grooming, OT : Independent Prior LOF Wheel Chair Mobility : Independent Prior LOF for IADLs, OT : Assist needed LINDA COVINGTON OTR/Lachelle - 06/20/2021 15:15 EDT Upper Extremity Right UE Active ROM : Impaired Right UE Strength : Impaired Left UE Active ROM : Impaired Left UE Strength : Impaired LINDA COVINGTON OTR/Lachelle 06/20/2021 15:15 EDT Self Care/Home Management, OT Self Feeding Assist Level, OT : Supervision or set-up Grooming Assist Level, OT : Assist, moderate Bathing Assist Level, OT : Assist, maximal Upper Body Dressing Assist Level, OT : Assist, maximal Lower Body Dressing Assist Level, OT : Assist, maximal Toileting Assist Level : Assist, maximal LINDA COVINGTON OTR/L - 06/20/2021 15:15 EDT Functional Mobility Mobility Grid Bed Roll Left : Rehab Maximal assistance Bed Roll Right : Rehab Maximal assistance Bed Scooting : Rehab Maximal assistance Supine to Sit : Rehab Maximal assistance Sit to Supine : Rehab Maximal assistance NADYA LINDA OTR/L - 06/20/2021 15:15 EDT Cognition Assessment, OT Orientation : Oriented x 4 LINDA COVINGTON OTR/L - 06/20/2021 15:15 EDT Indication Assessment, OT Occupational Therapy Indicated : Yes Problem List, OT : Impaired, bed mobility, Impaired, activities daily living, Impaired, endurance tolerance, Impaired functional mobility, Impaired, standing balance, Impaired, strength, Impaired, transfers Potential Barriers, OT : Acuity of illness Rehabilitation Potential, OT : Fair LINDA COVINGTON OTR/L - 06/20/2021 15:15 EDT Plan of Care, OT OT Tx Plan/Goals Established w Patient : Yes OT Frequency Rehab : Five days per week OT Duration Rehab : Fourteen days OT Treatments Planned : Activities of daily living, Balance training, Functional mobility training, Safety education, Therapeutic activities, Therapeutic exercises LINDA COVINGTON OTR/L - 06/20/2021 15:15 EDT Lyft Driver Goals, OT Self Feeding LTG Grid Goal #1 Activity : Self feeding Assist : Supervision or set-up Date to Meet : 07/04/2021 EDT Goal Status : Initial LINDA COVINGTON OTR/Lachelle - 06/20/2021 15:15 EDT Grooming LTG Grid Goal #1 Goal #2 Activity : Grooming Grooming Assist : Independent, modified Supervision or set up Date to Meet : 06/22/2021 EDT 07/04/2021 EDT Goal Status : Not met Initial goal LINDA COVINGTON OTR/L - 06/20/2021 15:15 EDT LINDA COVINGTON OTR/L - 06/20/2021 15:15 EDT Bathing LTG Grid Goal #1 Activity : Bathing, Upper Extremity Assist : Assist, minimal Date to Meet : 07/04/2021 EDT Goal Status : Initial goal LINDA COVINGTON OTR/L - 06/20/2021 15:15 EDT Dressing, Lower Body LTG Grid Goal #1 Activity : Dressing, Lower Body Assist : Independent, modified Date to Meet : 06/22/2021 EDT Goal Status : Not met LINDA COVINGTON OTR/Lachelle - 06/20/2021 15:15 EDT Toilet Transfer LTG Grid Goal #1 Activity : Toilet Transfer, Ambulatory Assist : Independent, modified Date to Meet : 06/22/2021 EDT Goal Status : Not met LINDA COVINGTON OTR/Lachelle - 06/20/2021 15:15 EDT Bed Mobility/ Bed Transfer LTG Grid Goal #1 Goal #2 Activity : Bed Mobility/Bed Transfer Bed Mobility, Supine to Sit Assist : Independent, modified Assist, moderate Date to Meet : 06/22/2021 EDT 07/04/2021 EDT Goal Status : Not met Initial goal LINDA COVINGTON OTR/Lachelle - 06/20/2021 15:15 EDT LINDA COVINGTON OTR/Lachelle - 06/20/2021 15:15 EDT Other LTG Grid Goal #1 Goal #2 Goal : pt to participate in B UE AAROM x10 Pt to sit EOB 5 minutes with min assist during functional task Date to Meet : 07/04/2021 EDT 07/04/2021 EDT Goal Status : Initial goal Initial goal LINDA COVINGTON OTR/Lachelle - 06/20/2021 15:15 EDT LINDA COVINGTON OTR/Lachelle - 06/20/2021 15:15 EDT Treatment Note Subjective Comment : Agreeable Patient's Response to Treatment : pt tolerated fair Additional Objective Information : AAROM B UE. Hand to mouth with R UE. Weakness B UE. Max for bed mobility Assessment : Will attempt to progress toward ADL goals. Plan for Treatment : see poc LINDA COVINGTON OTR/Lachelle - 06/20/2021 15:15 EDT Pain Assessment Pain Scaled Used : 0-10 Pain scale Pain Score During-Intervention : 0 LINDA COVINGTON OTR/aLchelle - 06/20/2021 15:15 EDT Image 1 - Images currently included in the form version of this document have not been included in the text rendition version of the form. Anticipated Discharge Needs, OT/PT Anticipated Discharge to : Unit, long-term LINDA COVINGTON OTR/L - 06/20/2021 15:[address] [facility] OT Charges OT Re-Evaluation : 1 LINDA COVINGTON OTR/Lachelle - 06/20/2021 15:15 EDT Electronically signed by Keven [facility] Conversion Amusement Park Entertainer Cerner at 12/18/2022 9:06 AM CDT documented in this encounter Plan of Treatment Not on file documented as of this encounter Visit Diagnoses Not on filedocumented in this encounter
--- OUTSIDE RECORDS SUMMARY | 2025-03-08 13:15 | XMS_ITS | Encounter Summary ---
Author Organization [employer] ([place], [place], [place], [place]) Address [address] [place] [address] Care Team Providers Care Gallery Host Name Role Phone Unavailable Primary Care Provider Unavailabl e Encounter Details Date Type Department Care Team (Late st Contact Info) Description 06/14/2021 Transcribed Document [facility] [address] [place] [address] Margo Alvarez MD [address] [place] [id number] Social History Tobacco Use Types Packs/Day Years Used Date Smoking Tobacco: Never Assessed Comments Unknown Sex and Gender Information Value Date Recorded Sex Assigned at Not on file Legal Sex Female 2:39 PM CDT Gender Identity Not on file Sexual Orientation Not on file documented as of this encounter Miscellaneous Notes * Cerner Conversion Note - Margo Alvarez MD - 06/14/2021 5:01 PM EDT Patient: SUDHA TIMMONS Age: 75 years Sex: Female : 1945 Associated Diagnoses: None Author: MARGO ALVAREZ MD-INT Basic Information Date of encounter 06/14/21 Patient is on optiflow She is not verbalising No fever Remains tachycardic . Physical Examination VS/Measurements Vitals Signs (last 24 hrs) Last Charted Minimum Maximum Temp 99.7 (JUN 14 10:03) 97.8 (JUN 13 20:00) 99.7 (JUN 14 10:03) Mon HR 111 (JUN 14 15:00) 111 (JUN 13 17:54) 128 (JUN 14 13:15) Resp Rate H 22 (JUN 14 10:03) 18 (JUN 13 20:00) H 22 (JUN 14 10:03) SBP H 142 (JUN 14 10:03) 119 (JUN 14 00:00) H 142 (JUN 14 10:03) DBP 83 (JUN 14 10:03) 69 (JUN 14 00:00) 83 (JUN 14 10:03) MAP 97 (JUN 14 10:) 83 (JUN 14 00:00) 97 (JUN 14 10:) SpO2 L 92 (JUN 14 15:) L 88 (JUN 14 00:00) 100 (JUN 14 10:03) General: Mild distress, on optiflow, Not alert [...] Musculoskeletal: No tenderness, No swelling. Integumentary: Warm, [place], Moist. Neurologic: Alert, Not oriented. Psychiatric: cannot check. Review / Management Labs reviewed. Impression and Plan Acute hypoxic respiratory failure due to COVID-19 pneumonia and R Pulmonary embolism, POA, worsening -Vaccinated with Pfizer per son -Continuous oxygen monitoring, uptitrated on optiflow -Continue dexamethasone 10 iv bid, remdesivir, s/p actemra 06/09, scheduled inhaler, empiric antibiotics cefdinir and doxycycline, trend inflammatory marker -ID consulted, discussed with Dr. Rocha who plans to possibly switch Bactrim to atovaquone Sepsis due to UTI and COVID-19 pneumonia, [...] -LE US NEG -ECHO EF 35% Hypernatremia: Resolved. Bipolar disorder: Resumed home lithium 30 bid, [...] two living children son Shawn daughter Harley [phone]. Placed [place] for Tube feeding and Meds Continue BiPAP/optiflow/full dose lovenox with PE and eventual OAC at risk for Deterioration and intubation DISPOSITSION : Uncertain at this time Patient admitted with covid and acute respiratory failure worsening with potential for intubation. Time spent with above 30 minutes documented in this encounter Plan of Treatment Not on file documented as of this encounter Visit Diagnoses Not on filedocumented in this encounter
--- OUTSIDE RECORDS SUMMARY | 2025-03-08 13:15 | XMS_ITS | Encounter Summary ---
Author Organization [employer] ([place], [place], [place], [place]) Address [address] [place] [address] Care Team Providers Care Photo Retoucher Name Role Phone Unavailable Primary Care Provider Unavailabl e Encounter Details Date Type Department Care Team (Late st Contact Info) Description 06/19/2021 Transcribed Document [facility] Radiology [address] [place] [address] Margo Alvarez MD [address] [place] [id number] Social History Tobacco Use Types Packs/Day Years Used Date Smoking Tobacco: Never Assessed Comments Unknown Sex and Gender Information Value Date Recorded Sex Assigned at Not on file Legal Sex Female 2:39 PM CDT Gender Identity Not on file Sexual Orientation Not on file documented as of this encounter Miscellaneous Notes * Cerner Conversion Note - Margo Alvarez MD - 06/19/2021 1:57 PM EDT Patient: SUDHA TIMMONS Age: 75 years Sex: Female : 1945 Associated Diagnoses: None Author: MARGO ALVAREZ MD-INT Basic Information Date of encounter 06/19/21 Patient is arousable Wants water Denies pain Becomes emotional easily No fever Physical Examination VS/Measurements Vitals Signs (last 24 hrs) Last Charted Minimum Maximum Temp H 99.8 (JUN 19 11:03) 97.8 (JUN 19 08:00) H 99.8 (JUN 19 11:03) Mon HR 61 (JUN 19 11:03) 61 (JUN 19 11:03) 105 (JUN 18 15:39) Resp Rate 18 (JUN 19 11:03) 18 (JUN 18 18:00) 20 (JUN 18 15:39) SBP 129 (JUN 19 11:03) 126 (JUN 19 08:00) H 151 (JUN 18 15:39) DBP 81 (JUN 19 11:03) 72 (JUN 19 08:00) 83 (JUN 18 15:39) MAP 99 (JUN 19 11:03) 88 (JUN 19 08:00) 115 (JUN 18 15:39) SpO2 100 (JUN 19 11:) 98 (JUN 19 08:00) 100 (JUN 18 18:00) General: No acute distress, on HF, alert but cannot check orientation. Mumbles but follows simple commands, Not alert and oriented. Eye: Normal conjunctiva. Sclera: Not icteric. HENT: Normocephalic. Neck: Supple, Non-tender. Respiratory: Lungs are clear to auscultation, Breath sounds are equal, Symmetrical chest wall expansion, with scattered rhonchi bilateral, hsa a port on left side of chest. Cardiovascular: Regular rhythm, No edema. Gastrointestinal: Soft, Non-tender, Non-distended, Normal bowel sounds, No organomegaly. Musculoskeletal: No tenderness, No swelling. Integumentary: Warm, [place], Moist. Neurologic: Alert, not following commands, Not oriented. Psychiatric: cannot check. Review / Management Labs reviewed. Impression and Plan Acute hypoxemic respiratory failure secondary to covid and concomitant PE -Vaccinated with Pfizer per record review. -Continuous oxygen monitoring, and oxygen requirements better now post remdesivir, s/p actemra . On dexa. Inflammatory markers trending down. Acute metabolic encephalopathy with likely chronic underlying memory problems and ? dementia Patient continues to remain poorly responsive despite progress with her oxygen requirements now CT head negative and had normal ammonia level. Off lithium (reportedly had recent problems as outpt and advised to stop lithium as per discussion with her son) and MRI without focal deficits noted. Clinically more alert and follows simple commands though not communicative. Plan for continuous EEG per neuro Sepsis due to UTI and COVID-19 pneumonia, POA -On admission Fever 102, heart rate 120s, increased respiratory rate, source UTI and pneumonia -Blood cultures No growth so far -Had pansensitive E coli R Pulmonary embolism -CTA noted: Multiple small filling defects in the right lower lobe pulmonary artery consistent with PE -ECHO noted, no R heart strain, CTA noted NO R heart strain -Continue Therapeutic Lovenox and anticipate transtion to po eliquis if no interventions required. Acute kidney injury Likely ATN/MYESHA and meds induced Creatinine trending down and doingbetter Transaminitis -Acetaminophen alcohol level negative -Likely due to COVID-19, -RUQ US noted, normal liver and better now and normalised. Statin resumed. Acute systolic HF -2/2 possible NSTEMI? vs covid? vs chronic, last echo normal from 2018 -ECHO noted, EF 35% Hypertensive urgency, improving -on coreg and advanced dosing Sinus tachycardia -Likely from PE, EKG noted, PRN Lopressor for tachycardia Elevated troponin -Likely reactive from COVID and tachycardia/NSTEMI -Patient denies cp -ECHO noted, EF 35% Bilateral LE edema -D-dimer elevated 2/2 covid -No hx of CHF, Echo from 2018 with normal EF, no excess IVF at this time -LE US NEG Hypernatremia: Sodium better again and discontinue D5 and on free water flushes. Bipolar disorder:As per discussion with her son Shawn on 06/16 patient has been off lithium recently prior to admisson with mental status changes Morbid obesity: BMI 45.8, complicates all aspects of care and resp failure with suspected OHS component Hx of non-Hodgkin's lymphoma DVT ppx: Lovenox therapeutic dose FULL CODE, confirmed with patient on admission, no living will, two living children ke Escobar daughter Harley . Dysphagia Placed [place] for Tube feeding and Meds due to her mentation Currently speech has evaluated and on pureed diet though mental status fluctuation might limit adequate po intake. Continue with feeding with assistance and observe and on tube feeds for now DISPOSITSION : Uncertain at this time but if she makes continued steady progress anticipate snf at discharge. Patient admitted with covid and acute respiratory failure though oxygenation is improved . However with altered mentation and poor responsivenss and currently on tube feeds but starting pureed as tolerated with some progress in mentation though not closer to her baseline. Resuming PT/neuro to evaluate with continuous EEG as well. Discussed during MDR. Also called and discussed with son Shawn Timmons and updated him Discussed with nursing and time spent with above 30 minutes documented in this encounter Plan of Treatment Not on file documented as of this encounter Visit Diagnoses Not on filedocumented in this encounter
--- OUTSIDE RECORDS SUMMARY | 2025-03-08 13:15 | XMS_ITS | Encounter Summary ---
Author Organization [employer] ([place], [place], [place], [place]) Address [address] [place] [address] Care Team Providers Care Fleet Salesperson Name Role Phone Unavailable Primary Care Provider Unavailabl e Encounter Details Date Type Department Care Team (Late st Contact Info) Description 06/14/2021 Transcribed Document [facility] [place] [facility] [address] [place] [address] ProviderTg MD [address] [place] [address] Social History Tobacco Use Types Packs/Day Years Used Date Smoking Tobacco: Never Assessed Comments Unknown Sex and Gender Information Value Date Recorded Sex Assigned at Not on file Legal Sex Female 2:39 PM CDT Gender Identity Not on file Sexual Orientation Not on file documented as of this encounter Miscellaneous Notes * Cerner Conversion Note - Historical ProviderMD - 06/14/2021 5:00 AM CDT Chart Check - Review Order Profile Entered On: 06/14/2021 4:03 EDT Performed On: 06/14/2021 5:00 EDT by Ran Chew RN-PATIENT CARE BEDSIDE NON-EXEMPT Chart Check Powerplans Initiated/Discontinued as Appropriate : Yes All Active Orders Reviewed : Yes Ran Chew RN-PATIENT CARE BEDSIDE NON-EXEMPT - 06/14/2021 4:03 EDT documented in this encounter Plan of Treatment Not on file documented as of this encounter Visit Diagnoses Not on filedocumented in this encounter
--- OUTSIDE RECORDS SUMMARY | 2025-03-08 13:15 | XMS_ITS | Encounter Summary ---
Author Organization [employer] ([place], [place], [place], [place]) Address [address] [place] [address] Care Team Providers Care Covering And Lining Supervisor Name Role Phone Unavailable Primary Care Provider Unavailabl e Encounter Details Date Type Department Care Team (Late st Contact Info) Description 06/09/2021 Transcribed Document [facility] [place] [facility] [address] [place] [address] ProviderTg MD [address] [place] [address] Social History Tobacco Use Types Packs/Day Years Used Date Smoking Tobacco: Never Assessed Comments Unknown Sex and Gender Information Value Date Recorded Sex Assigned at Not on file Legal Sex Female 2:39 PM CDT Gender Identity Not on file Sexual Orientation Not on file documented as of this encounter Miscellaneous Notes * Cerner Conversion Note - Tg ProviderMD - 06/09/2021 12:32 PM CDT Consult Phone Call Documentation Entered On: 06/09/2021 13:39 EDT Performed On: 06/09/2021 12:32 EDT by ELYSE UGALDE, [facility] Phone Call for Consults Consult Reason : covid, uti Physician Requested for Consult : DEBBIE COLE MD-INF ELYSE UGALDE, [facility] - 06/09/2021 13:36 EDT documented in this encounter Plan of Treatment Not on file documented as of this encounter Visit Diagnoses Not on filedocumented in this encounter
--- OUTSIDE RECORDS SUMMARY | 2025-03-08 13:16 | XMS_ITS | Encounter Summary ---
Author Organization [employer] ([place], [place], [place], [place]) Address [address] [place] [address] Care Team Providers Care Mowing Machine Operator Name Role Phone Unavailable Primary Care Provider Unavailabl e Encounter Details Date Type Department Care Team (Late st Contact Info) Description 06/17/2021 Transcribed Document [facility] [place] Family Medicine [address] [place] [address] ProviderTg MD [address] [place] [address] Social History Tobacco Use Types Packs/Day Years Used Date Smoking Tobacco: Never Assessed Comments Unknown Sex and Gender Information Value Date Recorded Sex Assigned at Not on file Legal Sex Female 2:39 PM CDT Gender Identity Not on file Sexual Orientation Not on file documented as of this encounter Miscellaneous Notes * Cerner Conversion Note - Tg ProviderMD - 06/17/2021 2:00 AM CDT Pathology Collector Details Entered On: 06/17/2021 6:36 EDT Performed On: 06/17/2021 2:00 EDT by Ran Chew RN-PATIENT CARE [...] Chew RN-PATIENT CARE BEDSIDE NON-EXEMPT - 06/17/2021 6:36 EDT documented in this encounter Plan of Treatment Not on file documented as of this encounter Visit Diagnoses Not on filedocumented in this encounter
--- OUTSIDE RECORDS SUMMARY | 2025-03-08 13:16 | XMS_ITS | Encounter Summary ---
Author Organization [employer] ([place], [place], [place], [place]) Address [address] [place] [address] Care Team Providers Care Programming Internship Name Role Phone Unavailable Primary Care Provider Unavailabl e Encounter Details Date Type Department Care Team (Late st Contact Info) Description 06/17/2021 Transcribed Document [facility] Pulm & Critical Care Medicine [address] [place] [address] [address] [place] [address] Enrique Lindsey MD [address] [facility] [address] [place] [address] Social History Tobacco Use Types Packs/Day Years Used Date Smoking Tobacco: Never Assessed Comments Unknown Sex and Gender Information Value Date Recorded Sex Assigned at Not on file Legal Sex Female 2:39 PM CDT Gender Identity Not on file Sexual Orientation Not on file documented as of this encounter Miscellaneous Notes * Cerner Conversion Note - Enrique Lindsey MD - 06/17/2021 3:28 PM EDT Patient: SUDHA TIMMONS Age: 75 [...] worsening bilateral infiltrates as compared to prior. Intake & Output Totals Last 24 Hours (7a-7a) Intake (31 Events) Medications (161.25 mL) Other Intake (565 mL) Other Intake Prior to Arrival (700 mL) Output (2 Events) Hamlin Catheter (1100 mL) Input Total: 1426.25 mL Output Total: 1100 mL Balance: 326.25 mL Review of Systems Neurologic: Confusion. Unable [...] Q3H, PRN: Tachycardia Lovenox: 115 mg, SubCutaneous, [id number] Pepcid: 20 mg, Oral, Daily Robitussin: 400 mg, Oral, Q4HInt SEROquel: 12.5 mg, Oral, Daily SEROquel: 25 mg, Oral, [id number] Zofran: 4 mg, IV Push, Q4H, PRN: Nausea aspirin: 81 mg, Feeding Tube, Daily atovaquone: 750 mg, Oral, BID cefTRIAXone: 2 Gram, 100 mL/Hr, IV Piggyback, [id number] dexAMETHasone: 10 mg, IV Push, Daily glucagon: 1 mg, IntraMuscular, Q15Min, PRN: Other [...] micafungin: 100 mg, 100 mL/Hr, IV Piggyback, [id number] oxyCODONE: 5 mg, Oral, Q4H, PRN: Pain (Severe 7-10) rifAXIMin: 550 mg, Oral, BID Pending Complete [...] Oral, Daily, 30 Cap, 0 Refill(s), Medications (29) Active Scheduled: (15) aspirin 81 mg chew tab 81 mg 1 Tab, Feeding Tube, Daily atorvastatin 40 mg tab 40 mg 1 Tab, Oral, At Bedtime atovaquone 750 mg/5 mL liq 750 mg 5 mL, Oral, BID carvedilol 12.5 mg tab 12.5 mg 1 Tab, Oral, BID cefTRIAXone 2 Gram, IV Piggyback, [id number] dexAMETHasone 10 mg/1 mL inj 10 mg 1 mL, IV Push, Daily enoxaparin 60 mg/0.6 mL inj 115 mg 1.15 mL, SubCutaneous, [id number] famotidine 20 mg tab 20 mg 1 Tab, Oral, Daily guaiFENesin 200 mg/10 mL liq 400 mg 20 mL, Oral, Q4HInt insulin regular 1 unit/0.01 mL inj 3mL Scale A, SubCutaneous, Q6H lactobacillus acidophilus cap 1 Cap, Oral, Daily micafungin sodium 100 mg, IV Piggyback, [id number] QUEtiapine 25 mg tab 25 mg 1 Tab, Oral, I88OTvy QUEtiapine 25 mg tab 12.5 mg 0.5 Tab, Oral, Daily rifaXIMIN 550 mg tab 550 mg 1 Tab, Oral, BID Continuous: (0) PRN: (14) albuterol-ipratropium inh 3 mL 3 mL, Nebulized [...] Medical Hip pain, right / SNOMED CT 3456182501 / Confirmed At risk for sleep apnea / IMO 14727007 / Confirmed At risk for violence / IMO 04619236 / Confirmed Concussion / SNOMED CT 4084972944 / Confirmed concussion with loss of memory+ Disease caused by 2019 novel coronavirus / SNOMED CT 1980284662 / Confirmed Problem added by a rule: [id number]_[id number]_WNB_WLTP. Fall / SNOMED CT 5211022 / Confirmed HTN (hypertension) / SNOMED CT 1617071995 / Confirmed Depression / SNOMED CT 4330652217 / Confirmed Numbness and tingling / SNOMED CT 6660570159 / Confirmed numbness and tingling right thigh area to toes Osteoarthritis / SNOMED CT 0258608456 / Confirmed Pain / SNOMED CT 42713802 / Confirmed right buttocks pain Leg pain, right / SNOMED CT 792013982 / Confirmed sleep apnea / SNOMED CT 023179562 / Confirmed Insomnia / SNOMED CT 286939919 / Confirmed Tremor / SNOMED CT 72328320 / Confirmed, Active Problems (17) At risk [...] Last Charted Minimum Maximum Temp 98.6 (JUN 17 12:00) 97.4 (JUN 17 00:03) 99 (JUN 16 19:57) Mon HR 102 (JUN 17 12:00) 70 (JUN 16 22:03) 136 (JUN 16 17:18) Resp Rate 20 (JUN 17 06:09) 18 (JUN 16 22:03) H 22 (JUN 16 16:04) SBP H 148 (JUN 17 12:00) 121 (JUN 16 19:57) H 182 (JUN 17 02:00) DBP H 94 (JUN 17 12:00) 73 (JUN 17 08:14) H 148 (JUN 17 02:00) MAP 112 (JUN 17 12:00) 98 (JUN 17 08:14) 164 (JUN 17 02:00) SpO2 L 93 (JUN 17 12:00) L 76 (JUN 16 21:18) 100 (JUN 16 19:55) General: Mild distress, on HFNC at 8 LPM, confused , Morbidly obese. Eye: Pupils [...] . Gastrointestinal: Soft, Non-tender, Normal bowel sounds. Genitourinary: Hamlin cath. Musculoskeletal: Normal range of motion, No deformity. Integumentary: Warm, Dry, No rash. Neurologic: Alert, confused. Psychiatric: Unable to assess. . Review / Management Results review: Labs (Last four charted values) WBC H 12.9 (MAY 19) H 14.3 (OCT 18) H 10.9 (OCT 17) H 12.3 (OCT 16) HB L 8.9 (MAY 19) L 9.4 (OCT 18) L 9.8 (OCT 17) L 10.4 (OCT 16) HCT L 27.7 (OCT 19) L 29.5 (OCT 18) L 31.3 (OCT 17) L 32.6 (OCT 16) Plt 206 (MAY 19) 201 (OCT 19) 200 (OCT 18) 203 (OCT 17) Na 143 (OCT 19) 144 (OCT 18) H 151 (OCT 17) 146 (OCT 16) K 4.7 (OCT 19) 5.1 (OCT 18) 4.1 (OCT 17) 3.9 (OCT 16) Cl H 115 (MAY 19) H 117 (OCT 18) H 122 (OCT 17) H 119 (OCT 16) CO2 25 (OCT 19) 24 (OCT 18) 25 (OCT 17) 22 (OCT 16) BUN H 23 (OCT 19) H 26 (OCT 18) H 31 (OCT 17) H 49 (OCT 16) Cr 0.70 (OCT 19) 0.80 (OCT 18) 0.90 (OCT 17) H 1.30 (OCT 16) Glu R H 141 (OCT 19) H 214 (OCT 18) H 159 (MAY 17) H 178 (OCT 16) Ca L 8.2 (MAY 19) L 8.3 (OCT 18) 8.4 (OCT 17) 8.6 (OCT 16) Lactic 1.6 (OCT 19) 1.0 (MAY 09) PT 11.4 (MAY 10) 11.4 (MAY 09) 11.4 (MAY 09) INR 1.1 (MAY 10) 1.1 (OCT 09) 1.1 (MAY 09) PTT 23.2 (MAY 09) AST 36 (MAY 19) H 87 (OCT 15) H 127 (OCT 13) H 128 (MAY 12) ALT 22 (MAY 19) 24 (MAY 15) H 67 (MAY 13) H 98 (OCT 12) ALK P 130 (JUN 17) 88 (JUN 13) 80 (JUN 11) 88 (JUN 10) T Bili 0.3 (JUN 17) 0.4 (JUN 13) 0.4 (JUN 11) 0.5 (JUN 10) PTN L 4.7 (JUN 17) L 5.0 (JUN 13) L 5.2 (JUN 11) L 5.4 (JUN 10) ALB L 2.1 (JUN 17) L 2.3 (JUN 13) L 2.1 (JUN 11) L 2.2 (JUN 10) Troponin H 0.147 (JUN 16) H 0.447 (JUN 14) H 0.438 (JUN 14) C 0.845 (JUN 12) . JUN 16 14:50 144 H 117 H 26 / H 214 5.1 24 0.80 \ JUN 13 04:00 \ L 10.9 / H 12.0 231 / 34.3 \Blood Gases (Current Encounter/Past 24 Hours) No Blood Gas Results Found (Past 24 Hours) JUN 17 04:00 143 H 115 H 23 / H 141 4.7 25 0.70 \ JUN 17 04:00 \ L 8.9 / H 12.9 206 / L 27.7 \ Radiology Results (Last 48 hours) [id number] -- 06/07/2021 12:36 CR Chest 1 Vw Portable (06/16/2021 10:47) Result: PORTABLE CHEST 06/16/2021 10:38 AM HISTORY: Pneumonia.COMPARISON: June 13, 2021.FINDINGS: The heart is stable in size. There has been interval worseningin the perihilar and bibasilar opacities. There is no pneumothorax. Thesupport devices are in good position.IMPRESSION: Interval worsening as above.Continued follow up recommended.Images reviewed, interpreted, and dictated by Dr. Milagros Nathan.Transcribed by Álvaro Hoover (R).I have personally viewed, interpreted and dictated the examination. Ihave read and agree with the above final transcribed report. Blood Gases (Current Encounter/Past 24 Hours) No [...] Bipolar disorder Dementia Alert but confused Endocrine Hyperglycemia - Glycemic control Morbid Obesity with BMI of 45.8 PLAN: Supplemental O2 to maintain O2 saturations 90-94% - currently on 8 LPM. Worsening hypoxia. Was on 5 L/min before. Now up to 8 L/min. Chest x-ray also worsening. High risk for further decompensation. She is a full code. High risk for intubation. Optiflow or NIPPV as needed for increased work of breathing Conscious proning is ideal however given pt confusion aborted Combivent inhaler Mucinex 1200mg BID IS/FV COVID order set Cardiology is following prior and now signed off Renal following ID following: Anbx: Rocephin, Adriana, Atovaquone Dexamethasone 10mg BID x5 days, then 10mg daily x5 days S/p Remedesivir Actemra IV : given 06/10/21 Significantly elevated IL-6 levels. will trend. Strongyloides ab negative Lactobacillus Monitor ammonia level if needed start rifaximin. Normalized ammonia levels. Pt was on lithium/ stopped - pt on seroquel Nutrition: On tube feeds. Glycemic control - SSI Q6H. Recommend to keep blood sugars less than 180. May add Lantus if needed. Acute PE. On Lovenox 1 mg/kg every 12 hours. Will transition to oral anticoagulant agents if no procedures planned in next few days. Prophylaxis: Protonix and Lovenox 115 mg Q12H. Neuro consulted for mental status issues. MRI of brain ordered by neuro for further evaluation. Labs in AM FULL CODE Prognosis : guarded. high risk for deterioration and need for mechanical vent I saw and examined the patient at bedside, obtained medical history, reviewed labs, diagnostics and chest imaging data. I personally and independently visualized and interpreted chest imaging data on PACS. I formulated diagnosis and treatment plans. I made all medical decisions as above. Complex case and requires high level of medical decision making for management. CCT 33 mins. documented in this encounter Plan of Treatment Not on file documented as of this encounter Visit Diagnoses Not on filedocumented in this encounter
--- OUTSIDE RECORDS SUMMARY | 2025-03-08 13:16 | XMS_ITS | Encounter Summary ---
Author Organization [employer] ([place], [place], [place], [place]) Address [address] [place] [address] Care Team Providers Care Electric Installer Name Role Phone Unavailable Primary Care Provider Unavailabl e Encounter Details Date Type Department Care Team (Late st Contact Info) Description 06/13/2021 Transcribed Document [facility] [place] [address] [place] [address] ProviderTg MD [address] [place] [address] Social History Tobacco Use Types Packs/Day Years Used Date Smoking Tobacco: Never Assessed Comments Unknown Sex and Gender Information Value Date Recorded Sex Assigned at Not on file Legal Sex Female 2:39 PM CDT Gender Identity Not on file Sexual Orientation Not on file documented as of this encounter Miscellaneous Notes * Cerner Conversion Note - Tg Jones MD - 06/13/2021 9:33 PM CDT Patient: SUDHA SOLORZANO Age: 75 years Sex: Female : 1945 [...] my visit bactrim stopped and atovaquone started 06/12 afebrile, HF O2 65-> 50%, not vocalizing but moaning at present, creat remains at 2 06/13 afebrile, HF O2 gradually being decreased, no improvement in mental status, creat down to 1.8 ferritin 10K-> 6K -> 3K PAST MEDICAL HISTORY Non-Hodgkin's lymphoma- finished therapy [...] Puff, Inhalation, RT_QID Core.25 mg, Oral, BID Lopressor: 5 mg, IV Push, Q3H, PRN: Tachycardia Lovenox: 115 mg, SubCutaneous, [id number] Pepcid: 20 mg, Oral, Daily Robitussin: 1,200 mg, PEG Tube, BID SEROquel: 25 mg, Oral, [id number] Zofran: 4 mg, IV Push, Q4H, PRN: [...] (Severe 7-10) rifAXIMin: 550 mg, Oral, BID Documented Medications [...] Last Charted Minimum Maximum Temp 97.8 (JUN 13 20:00) 97.8 (JUN 13 20:00) 98.6 (JUN 13 04:00) Mon HR 119 (JUN 13 20:24) 102 (MAY 15 08:52) 119 (JUN 13 20:24) Resp Rate 18 (JUN 13 20:00) 18 (JUN 13 20:00) 19 (JUN 13 02:00) SBP 137 (JUN 13 20:00) 117 (MAY 15 14:03) H 148 (JUN 13 04:00) DBP 81 (JUN 13 20:00) 69 (JUN 13 14:03) 89 (JUN 13 04:00) MAP 96 (JUN 13 20:00) 83 (JUN 13 14:03) 106 (MAY 14 21:48) SpO2 L 93 (JUN 13 20:24) L 89 (JUN 12 21:48) 100 (JUN 13 12:00) General: No acute distress, On Optiflow . [...] Labs (Last four charted values) WBC H 12.0 (MAY 15) H 13.4 (MAY 14) 10.0 (MAY 13) 7.0 (MAY 12) HB L 10.9 (MAY 15) L 11.1 (MAY 14) L 10.7 (MAY 13) L 10.8 (MAY 12) HCT 34.3 (MAY 15) L 34.0 (MAY 14) L 32.8 (OCT 13) 34.3 (OCT 12) Plt 231 (MAY 15) 275 (OCT 14) 257 (OCT 13) 267 (OCT 12) Na 143 (MAY 15) 145 (MAY 14) H 148 (OCT 13) H 150 (OCT 12) K 3.6 (OCT 15) 3.8 (OCT 14) 3.8 (OCT 13) 3.7 (OCT 12) Cl H 114 (MAY 15) H 114 (MAY 14) H 119 (OCT 13) H 121 (OCT 12) CO2 22 (MAY 15) L 20 (OCT 14) L 20 (MAY 13) 21 (JUN 10) BUN H 60 (MAY 15) H 58 (MAY 14) H 49 (MAY 13) H 32 (JUN 10) Cr H 1.80 (MAY 15) H 2.00 (MAY 14) H 2.00 (MAY 13) H 1.50 (JUN 10) Glu R H 143 (MAY 15) H 124 (MAY 14) 100 (MAY 13) H 135 (JUN 10) Ca 8.4 (JUN 13) 8.9 (JUN 12) 9.2 (JUN 11) 8.9 (JUN 10) Lactic 1.0 (JUN 07) PT 11.4 (JUN 08) 11.4 (JUN 07) 11.4 (JUN 07) INR 1.1 (JUN 08) 1.1 (JUN 07) 1.1 (JUN 07) PTT 23.2 (JUN 07) AST H 87 (JUN 13) H 127 (JUN 11) H 128 (JUN 10) H 210 (JUN 09) ALT 24 (JUN 13) H 67 (JUN 11) H 98 (JUN 10) H 143 (JUN 09) ALK P 88 (JUN 13) 80 (JUN 11) 88 (MAY 12) 101 (JUN 09) T Bili 0.4 (JUN 13) 0.4 (JUN 11) 0.5 (JUN 10) 0.9 (JUN 09) PTN L 5.0 (JUN 13) L 5.2 (JUN 11) L 5.4 (JUN 10) L 5.9 (JUN 09) ALB L 2.3 (JUN 13) L 2.1 (JUN 11) L 2.2 (JUN 10) L 2.4 (JUN 09) Troponin C 0.845 (JUN 12) C 2.020 (JUN 10) C 2.700 (JUN 08) C 1.220 (JUN 08) . 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
--- OUTSIDE RECORDS SUMMARY | 2025-03-08 13:16 | XMS_ITS | Encounter Summary ---
Author Organization [employer] ([place], [place], [place], [place]) Address [address] [place] [address] Care Team Providers Care Television Journalist Name Role Phone Unavailable Primary Care Provider Unavailabl e Encounter Details Date Type Department Care Team (Late st Contact Info) Description 06/17/2021 Transcribed Document [facility] [place] [address] [place] [address] ProviderTg MD [address] [place] [address] Social History Tobacco Use Types Packs/Day Years Used Date Smoking Tobacco: Never Assessed Comments Unknown Sex and Gender Information Value Date Recorded Sex Assigned at Not on file Legal Sex Female 2:39 PM CDT Gender Identity Not on file Sexual Orientation Not on file documented as of this encounter Miscellaneous Notes * Cerner Conversion Note - Tg ProviderMD - 06/17/2021 5:00 AM CDT Chart Check - Review Order Profile Entered On: 06/17/2021 6:36 EDT Performed On: 06/17/2021 5:00 EDT by Ran Chew RN-PATIENT CARE BEDSIDE NON-EXEMPT Chart Check Powerplans Initiated/Discontinued as Appropriate : Yes All Active Orders Reviewed : Yes Ran Chew RN-PATIENT CARE BEDSIDE NON-EXEMPT - 06/17/2021 6:36 EDT Electronically signed by Julian Baca Conversion Industrial Health And Safety Professor Seng at 12/18/2022 9:06 AM CDT documented in this encounter Plan of Treatment Not on file documented as of this encounter Visit Diagnoses Not on filedocumented in this encounter
--- OUTSIDE RECORDS SUMMARY | 2025-03-08 13:16 | XMS_ITS | Encounter Summary ---
Author Organization [employer] ([place], [place], [place], [place]) Address [address] [place] [address] Care Team Providers Care Die Maker Stamping Name Role Phone Unavailable Primary Care Provider Unavailabl e Encounter Details Date Type Department Care Team (Late st Contact Info) Description 06/11/2021 Transcribed Document [facility] [place] [address] [place] [address] ProviderTg MD [address] [place] [address] Social History Tobacco Use Types Packs/Day Years Used Date Smoking Tobacco: Never Assessed Comments Unknown Sex and Gender Information Value Date Recorded Sex Assigned at Not on file Legal Sex Female 2:39 PM CDT Gender Identity Not on file Sexual Orientation Not on file documented as of this encounter Miscellaneous Notes * Cerner Conversion Note - Historical ProviderMD - 06/11/2021 12:01 PM CDT Attempt to Treat, PT Entered On: 06/11/2021 12:02 EDT Performed On: 06/11/2021 12:01 EDT by VINH JASSO, PT Student Attempt to Treat Unable to Treat Due To : Acuity of Illness VINH JASSO, PT Student - 06/11/2021 12:01 EDT Inability to Treat Comment : Per Joseluis Blanca, pt is not appropriate at this time due to unstable vitals and being placed in mittens this morning. PT/OT will return tomorrow as appropriate. PT has reviewed and agrees with note. RENY BLAIR PT - 06/11/2021 12:16 EDT Electronically signed by [facility] Conversion Echocardiograph Technician Cerner at 12/18/2022 9:16 AM CDT documented in this encounter Plan of Treatment Not on file documented as of this encounter Visit Diagnoses Not on filedocumented in this encounter
--- OUTSIDE RECORDS SUMMARY | 2025-03-08 13:16 | XMS_ITS | Encounter Summary ---
Author Organization [employer] ([place], [place], [place], [place]) Address [address] [place] [address] Care Team Providers Care Client Care Coordinator Name Role Phone Unavailable Primary Care Provider Unavailabl e Encounter Details Date Type Department Care Team (Late st Contact Info) Description 06/13/2021 Transcribed Document [facility] [address] [place] [address] ProviderTg MD [address] [place] [address] Social History Tobacco Use Types Packs/Day Years Used Date Smoking Tobacco: Never Assessed Comments Unknown Sex and Gender Information Value Date Recorded Sex Assigned at Not on file Legal Sex Female 2:39 PM CDT Gender Identity Not on file Sexual Orientation Not on file documented as of this encounter Miscellaneous Notes * Cerner Conversion Note - Historical ProviderMD - 06/13/2021 5:00 AM CDT Chart Check - Review Order Profile Entered On: 06/13/2021 3:19 EDT Performed On: 06/13/2021 5:00 EDT by Josee Arnett Non Emp RN Chart Check Powerplans Initiated/Discontinued as Appropriate : Yes All Active Orders Reviewed : Yes Josee Arnett Non Emp RN - 06/13/2021 3:19 EDT documented in this encounter Plan of Treatment Not on file documented as of this encounter Visit Diagnoses Not on filedocumented in this encounter
--- OUTSIDE RECORDS SUMMARY | 2025-03-08 13:16 | XMS_ITS | Encounter Summary ---
Author Organization [employer] ([place], [place], [place], [place]) Address [address] [place] [address] Care Team Providers Care Glove Printer Name Role Phone Unavailable Primary Care Provider Unavailabl e Encounter Details Date Type Department Care Team (Late st Contact Info) Description 06/13/2021 Transcribed Document [facility] [place] [address] [place] [address] ProviderTg MD [address] [place] [address] Social History Tobacco Use Types Packs/Day Years Used Date Smoking Tobacco: Never Assessed Comments Unknown Sex and Gender Information Value Date Recorded Sex Assigned at Not on file Legal Sex Female 2:39 PM CDT Gender Identity Not on file Sexual Orientation Not on file documented as of this encounter Miscellaneous Notes * Cerner Conversion Note - Tg Jones MD - 06/13/2021 10:04 AM CDT Patient: SUDHA TIMMONS Age: 75 Years Sex: Female : 1945 Assessment/Plan 1. Multifactorial ATN secondary to infection/contrast-induced nephropathy in setting of being on DEMETRI inhibitors 2. Hypernatremia 3. Mild acidosis, non-anion gap secondary to REBECCA 4. PE 5. Covid pneumonitis Plan -Baseline Normal Kidney function with creatinine 1.8 today -Mild elevation of CK not clinically significant -Non-oliguric -Avoid nephrotoxins, NSAIDs, DEMETRI inhibitor's, ARB yes, please keep MAP above 65, Avoid IV Contrast -Renally dose medications and antibiotics -Daily renal function please, strict intake and output -No need for LAWYER at present time -Thanks for consultation, follow along with you Dr Lee Snyder Cell phone : [phone] [place] [address] phone : [phone] VTE Prophylaxis - Medical Enoxaparin 115 mg, SubCutaneous, Inj, [id number], Routine, Start 06/12/21 9:00:00 EDT, 06/09/21 21:00:00 EDT (SHAKA ZENDEJAS) Sequential Compression Device Start: 06/07/21 14:19:00 EDT, Bilateral, Length: Knee High, While patient is in bed, Continuous Order (CARA DE LA ROSA) Subjective Seen and evaluated by bedside Vital Signs T: 37 ??C TMIN: 36.9 ??C TMAX: 37.2 ??C HR: 102(Monitored) RR: 19 BP: 148/89 SpO2: 94% Oxygen Settings (Last) Oxygen Therapy Mode: High humidity, high flow therapy (06/13/21 08:56:00) Oxygen Flow Rate: 60 Liter/Min (06/13/21 08:56:00) Intake & Output Totals Last 24 Hours (7a-7a) Input Total: 340 mL Output Total: 900 mL Balance: -560 mL Physical Exam GENERAL APPEARANCE: This is [...] atovaquone, 750 mg= 5 mL, Oral, BID ceFAZolin, 2 Gram= 100 mL, IV Piggyback, Q8HInt Combivent Respimat CFC free 100 mcg-20 mcg/inh [...] 115 mg= 0.77 mL, 1 mg/kg, SubCutaneous, [id number] Mucinex, 1200 mg= 2 Tab, Oral, BID oxyCODONE, 5 mg= 1 Tab, Oral, Q4H, PRN Protonix, 40 mg, IV Push, Daily rifAXIMin, 550 mg= 1 Tab, Oral, BID SEROquel, 25 mg= 1 Tab, Oral, [id number] Zofran, 4 mg= 2 mL, IV Push, Q4H, PRN Lab Results Test Name Test Result Date/Time Sodium Level 143 mmol/L 06/13/2021 04:00 EDT Potassium Level 3.6 mmol/L 06/13/2021 04:00 EDT Chloride Level 114 mmol/L (High) 06/13/2021 04:00 EDT Carbon Dioxide Level 22 mmol/L 06/13/2021 04:00 EDT Anion Gap 11 06/13/2021 04:00 EDT Glucose Level 143 mg/dL (High) 06/13/2021 04:00 EDT Blood Urea Nitrogen 60 mg/dL (High) 06/13/2021 04:00 EDT Creatinine Level 1.80 mg/dL (High) 06/13/2021 04:00 EDT eGFR 33 mL/min/1.73m2 (Low) 06/13/2021 04:00 EDT eGFR NonAfrican 28 mL/min/1.73m2 (Low) 06/13/2021 04:00 EDT Bun/Creatinine 33.3 (High) 06/13/2021 04:00 EDT Calcium Level 8.4 mg/dL 06/13/2021 04:00 EDT Protein Total 5.0 Gram/dL (Low) 06/13/2021 04:00 EDT Albumin Level 2.3 Gram/dL (Low) 06/13/2021 04:00 EDT Globulin 2.7 Gram/dL 06/13/2021 04:00 EDT A/G Ratio 0.9 (Low) 06/13/2021 04:00 EDT Bilirubin Total 0.4 mg/dL 06/13/2021 04:00 EDT Alk Phos 88 Units/Liter 06/13/2021 04:00 EDT AST 87 Units/Liter (High) 06/13/2021 04:00 EDT ALT 24 Units/Liter 06/13/2021 04:00 EDT Magnesium Level 2.6 mg/dL (High) 06/13/2021 04:00 EDT Device Comment 1 Notified Nurse RBV 06/13/2021 06:04 EDT Device Comment 1 Notified Nurse RBV 06/12/2021 20:53 EDT Glucose POC2 141 mg/dL (High) 06/13/2021 06:04 EDT Glucose POC2 128 mg/dL (High) 06/12/2021 20:53 EDT CK 1991 Units/Liter (High) 06/13/2021 04:00 EDT WBC 12.0 K/uL (High) 06/13/2021 04:00 EDT RBC 3.30 Million/uL (Low) 06/13/2021 04:00 EDT Hgb 10.9 g/dL (Low) 06/13/2021 04:00 EDT Hct 34.3 % 06/13/2021 04:00 EDT MCV 103.9 fL (High) 06/13/2021 04:00 EDT MCH 33.0 pg (High) 06/13/2021 04:00 EDT MCHC 31.8 Gram/dL (Low) 06/13/2021 04:00 EDT Platelet Count 231 K/uL 06/13/2021 04:00 EDT MPV 12.1 fL 06/13/2021 04:00 EDT RDW 12.4 % 06/13/2021 04:00 EDT nRBC 0.080 (High) 06/13/2021 04:00 EDT Slide Review No 06/13/2021 04:00 EDT documented in this encounter Plan of Treatment Not on file documented as of this encounter Visit Diagnoses Not on filedocumented in this encounter
--- OUTSIDE RECORDS SUMMARY | 2025-03-08 13:16 | XMS_ITS | Encounter Summary ---
Author Organization [employer] ([place], [place], [place], [place]) Address [address] [place] [address] Care Team Providers Care Ski Binding Fitter And Repairer Name Role Phone Unavailable Primary Care Provider Unavailabl e Encounter Details Date Type Department Care Team (Late st Contact Info) Description 06/12/[address] [facility] [place] [address] [place] [address] ProviderTg MD [address] [place] [address] Social History Tobacco Use Types Packs/Day Years Used Date Smoking Tobacco: Never Assessed Comments Unknown Sex and Gender Information Value Date Recorded Sex Assigned at Not on file Legal Sex Female 2:39 PM CDT Gender Identity Not on file Sexual Orientation Not on file documented as of this encounter Miscellaneous Notes * Cerner Conversion Note - Historical ProviderMD - 06/12/2021 2:59 PM CDT Attempt to Treat, PT Entered On: 06/12/2021 15:00 EDT Performed On: 06/12/2021 14:59 EDT by VINH JASSO PT Student Attempt to Treat Unable to Treat Due To : Acuity of Illness VINH JASSO, PT Student - 06/12/2021 14:59 EDT Inability to Treat Comment : Per Nsg Josephine, pt continues to not be appropriate for PT today due to no change or improvement in condition of unstable vitals, SPO2% levels, and uncooperative. PT/OT will follow up tomorrow as appropriate. PT has reviewed and agrees with note. RENY BLAIR PT - 06/12/2021 15:12 EDT documented in this encounter Plan of Treatment Not on file documented as of this encounter Visit Diagnoses Not on filedocumented in this encounter
--- OUTSIDE RECORDS SUMMARY | 2025-03-08 13:16 | XMS_ITS | Encounter Summary ---
Author Organization [employer] ([place], [place], [place], [place]) Address [address] [place] [address] Care Team Providers Care Zinc Plate Cutter Name Role Phone Unavailable Primary Care Provider Unavailabl e Encounter Details Date Type Department Care Team (Late st Contact Info) Description 06/13/2021 Transcribed Document [facility] [place] Medicine [address] [place] [address] ProviderTg MD [address] [place] [address] Social History Tobacco Use Types Packs/Day Years Used Date Smoking Tobacco: Never Assessed Comments Unknown Sex and Gender Information Value Date Recorded Sex Assigned at Not on file Legal Sex Female 2:39 PM CDT Gender Identity Not on file Sexual Orientation Not on file documented as of this encounter Miscellaneous Notes * Cerner Conversion Note - Tg ProviderMD - 06/13/2021 9:24 AM CDT On Going Discharge Planning Entered On: 06/13/2021 9:26 EDT Performed On: 06/13/2021 9:24 EDT by Patsy Koehler V Oven Baker Drew Care Management Progress Note Discharge Arrangements : Patient Post-Acute Information Patient Name: SUDHA TIMMONS Gender: Female : [birth year] Age: 75 Years No Post-Acute Placement(s) Listed No Post-Acute Service(s) Listed No Curaspan Referral(s) Listed Discharge Options Discussed with Patient : DME, Home Health, Short term rehabilitation Barriers to Discharge Identified : Clinical Condition of Patient Patient Discharge Goal : [facility] facility List/Info Provided Pt/Fam/Support Person : Inpatient rehabilitation facility, [facility] facilities Is the Patient Meeting Medical Necessity : Yes Did you Attend Multidisciplinary Rounds? : Yes Patsy Koehler Social Worker [facility] [place] - 06/13/2021 9:24 EDT Narrative Progress Note Narrative Progress Note : HD#5, ELOS-5 RSR-moderate, Boost-[address] Narda Sommer, patient with further worsening of respiratory failure. Tachycardia. Patient is critically ill and may need intubation. CR chest today showed Slightly worsening bilateral opacities. Pulmonary edema is not excluded. Corpak placed. CM to follow. DCP-pending on patient's medical progress. Patsy Koehler V Oven Baker [facility] [place] - 06/13/2021 9:27 EDT Historical Progress Note : HD#4, ELOS-5 RSR-moderate, Boost-5 Per pulmonary, Optiflow has been weaned to 50/50. Cr remains 2 with rising BUN 58. Nephrology now following. Remains on D5 @ 75. CK rising and now above 2000. WBC rising now 13. Plans for Corpak placement today as pt with poor PO intake and decreased participation. Per Dr. Narda Sommer, patient is at risk to transfer to the ICU. CM to follow. DCP-[facility] vs SNF when medically ready. Patsy Koehler V Oven Baker [facility] [place] - 06/12/21 12:12:00 HD#4, ELOS-5 RSR-moderate, Boost-5 Patient currently on optiflow FiO2 70%, with continued increased confusion and fidgeting in the bed. ID and Pulm consulted and are making med adjustments. Per RN, patient with tachycardia the other night. DCP-[facility]/SNF pending medical progress. Patient lives with her 98 yo father and adult son. Patsy Koehler V Oven Baker [facility] [place] - 06/11/21 10:00:55 HD#4, ELOS-5 RSR-moderate, Boost-5 COVID+. Patient currently on optiflow FiO2 60%, with continued increased confusion and fidgeting in the bed. ID and Pulm consulted and are making med adjustments. Right small PE. On IV abx. Per RN, patient with tachycardia the other night. Now has mittens. Not eating or drinking per RN. DCP-[facility]/SNF pending medical progress. Patient lives with her 98 yo father and adult son. Patsy Koehler V Oven Baker [facility] [place] - 06/11/21 12:10:01 HD#3, ELOS-not recorded, RSR-moderate, Boost-4 Per MD, patient is clinical deconditioning from NC to optiflow at 60% Fi02 with increased confusion. ID, Cardiology and Pulm consulted. HIGH RISK FOR INTUBATION. Patient had a abnormal ECHO with PE. On IV cefazolin and IV steroids. CM sent referrals to [facility] and [facility] due to being COVID+ for rehab. CM to follow. Patsy Koehler V Oven Baker [facility] [place] - 06/10/21 10:25:43 HD#2, ELOS-not recorded, RSR-moderate, Boost-4 CM sent rehab referrals to [facility] and [facility] since they accept COVID+ patients. Currently patient is on 60% Fi02. PEr MD, patient's respiratory status is worsening. CM to follow pt's progress for dc planning. Patsy Koehler V Oven Baker Water Supply Technician - 06/09/21 16:10:00 Patsy Koehler V Oven Baker [facility] [place] - 06/13/2021 9:24 EDT documented in this encounter Plan of Treatment Not on file documented as of this encounter Visit Diagnoses Not on filedocumented in this encounter
--- OUTSIDE RECORDS SUMMARY | 2025-03-08 13:16 | XMS_ITS | Encounter Summary ---
Author Organization [employer] ([place], [place], [place], [place]) Address [address] [place] [address] Care Team Providers Care Health Club Attendant Name Role Phone Unavailable Primary Care Provider Unavailabl e Encounter Details Date Type Department Care Team (Late st Contact Info) Description 06/08/2021 Transcribed Document [facility] [place] Medicine [address] [place] [address] ProviderTg MD [address] [place] [address] Social History Tobacco Use Types Packs/Day Years Used Date Smoking Tobacco: Never Assessed Comments Unknown Sex and Gender Information Value Date Recorded Sex Assigned at Not on file Legal Sex Female 2:39 PM CDT Gender Identity Not on file Sexual Orientation Not on file documented as of this encounter Miscellaneous Notes * Cerner Conversion Note - Tg ProviderMD - 06/08/2021 9:44 AM CDT RX Interventions Entered On: 06/08/2021 9:46 EDT Performed On: 06/08/2021 9:45 EDT by Zac Melendez, PharmD/MPH, Pharmacist-Resident Clinical Interventions DVT Prophylaxis : Yes Zac Melendez, PharmD/MPH, Pharmacist-Resident - 06/08/2021 9:45 EDT DVT Prophylaxis DVT Prophylaxis, Order : Consulted to dose enoxaparin for NSTEMI. Patient weighs 113kg so initiated 110mg BID per protocol and D/C-ed previous order for 40mg BID. Thank you. DVT Prophylaxis, Value : 640 Dollar DVT Prophylaxis, Time : 30 Minute(s) Zac Melendez, PharmD/MPH, Pharmacist-Resident - 06/08/2021 9:45 EDT documented in this encounter Plan of Treatment Not on file documented as of this encounter Visit Diagnoses Not on filedocumented in this encounter
--- OUTSIDE RECORDS SUMMARY | 2025-03-08 13:16 | XMS_ITS | Encounter Summary ---
Author Organization [employer] ([place], [place], [place], [place]) Address [address] [place] [address] Care Team Providers Care Orchid Grower Name Role Phone Unavailable Primary Care Provider Unavailabl e Encounter Details Date Type Department Care Team (Late st Contact Info) Description 06/18/2021 Transcribed Document [facility] [place] Family Medicine [address] [place] [address] ProviderTg MD [address] [place] [address] Social History Tobacco Use Types Packs/Day Years Used Date Smoking Tobacco: Never Assessed Comments Unknown Sex and Gender Information Value Date Recorded Sex Assigned at Not on file Legal Sex Female 2:39 PM CDT Gender Identity Not on file Sexual Orientation Not on file documented as of this encounter Miscellaneous Notes * Cerner Conversion Note - Tg ProviderMD - 06/18/2021 3:16 PM CDT On Going Discharge Planning Entered On: 06/18/2021 15:20 EDT Performed On: 06/18/2021 15:16 EDT by Patsy Koehler V Cabinetmaker Maintenance Drew Care Management Progress Note Discharge Arrangements : Patient Post-Acute Information Patient Name: SUDHA TIMMONS Gender: Female : [birth year] Age: 75 Years No Post-Acute Placement(s) Listed No Post-Acute Service(s) Listed No Curaspan Referral(s) Listed Discharge Options Discussed with Patient : DME, Home Health, Short term rehabilitation Barriers to Discharge Identified : Clinical Condition of Patient Patient Discharge Goal : [facility] facility List/Info Provided Pt/Fam/Support Person : Inpatient rehabilitation facility, jail facilities Is the Patient Meeting Medical Necessity : Yes Did you Attend Multidisciplinary Rounds? : Yes Patsy Koehler Social Worker [facility] [place] - 06/18/2021 15:16 EDT Narrative Progress Note Narrative Progress Note : HD#10, ELOS-5 RSR-moderate, Boost-5 COVID+.Now on 4L NC. Patient awake, but remains confused and unable to converse appropriately per MD. Still in restraints. Patient passed her FEES. Diet advance to puree. Hopefully, her corpak will be discontinued soon. Brain MRI today. Still on IV abx. WBC and LDH trending down. CM sent updated clinical/therapy notes to [facility] and [facility] for possible rehab placement. CM to follow. Historical Progress Note : HD#9, ELOS-5 RSR-moderate, Boost-5 COVID+. On 6L HFNC. Ongoing confusion. Restraints continued. On IV rocephin, micafuntgin and dexamethazone. Tolerating TF via corpak. DCP-SNF/[facility] for rehab pending medical progress. Patsy Koehler V Cabinetmaker Maintenance [facility] [place] - 06/17/21 12:01:09 HD#8, ELOS-5 RSR-moderate, Boost-5 COVID+. On 5L HFNC. Ongoing confusion and attempting to pull at lines. In restraints. Leukocytosis worsening, LDH and d-dimer trending up, ferritin trending down. Tolerating TF via corpak. MD plans to get a neurology consult due to pt's confusion. CM to follow DCP-SNF for rehab pending medical progress. Patsy Koehler V Cabinetmaker Maintenance [facility] [place] - 06/16/21 13:18:40 HD#5, ELOS-5 RSR-moderate, Boost-[address] Narda Sommer, patient with further worsening of respiratory failure. Tachycardia. Patient is criticcally ill and may need intubation. CR chest today. Patsy Koehler V Cabinetmaker Maintenance [facility] [place] - 06/13/21 09:26:38 HD#5, ELOS-5 RSR-moderate, Boost-[address] Nadra Sommer, patient with further worsening of respiratory failure. Tachycardia. Patient is critically ill and may need intubation. CR chest today showed Slightly worsening bilateral opacities. Pulmonary edema is not excluded. Corpak placed. CM to follow. DCP-pending on patient's medical progress. Patsy Koehler V Cabinetmaker Maintenance Turntable Operator - 06/13/21 09:29:02 HD#4, ELOS-5 RSR-moderate, Boost-5 Per pulmonary, Optiflow [...] transfer to the ICU. CM to follow. DCP-[facility] vs SNF when medically ready. Patsy Koehler V Cabinetmaker Maintenance Turntable Operator - 06/12/21 12:12:00 HD#4, ELOS-5 RSR-moderate, Boost-5 Patient currently on optiflow FiO2 70%, with continued increased confusion and fidgeting in the bed. ID and Pulm consulted and are making med adjustments. Per RN, patient with tachycardia the other night. DCP-[facility]/SNF pending medical progress. Patient lives with her 98 yo father and adult son. Patsy Koehler V Cabinetmaker Maintenance [facility] [place] - 06/11/21 10:00:55 HD#4, ELOS-5 RSR-moderate, Boost-5 COVID+. Patient currently on optiflow FiO2 60%, with continued increased confusion and fidgeting in the bed. ID and Pulm consulted and are making med adjustments. Right small PE. On IV abx. Per RN, patient with tachycardia the other night. Now has mittens. Not eating or drinking per RN. DCP-[facility]/SNF pending medical progress. Patient lives with her 98 yo father and adult son. Patsy Koehler V Cabinetmaker Maintenance [facility] [place] - 06/11/21 12:10:01 HD#3, ELOS-not recorded, RSR-moderate, Boost-4 Per MD, patient is clinical deconditioning from NC to optiflow at 60% Fi02 with increased confusion. ID, Cardiology and Pulm consulted. HIGH RISK FOR INTUBATION. Patient had a abnormal ECHO with PE. On IV cefazolin and IV steroids. CM sent referrals to [facility] and [facility] due to being COVID+ for rehab. CM to follow. Patsy Koehler V Cabinetmaker Maintenance Turntable Operator - 06/10/21 10:25:43 HD#2, ELOS-not recorded, RSR-moderate, Boost-4 CM sent rehab referrals to [facility] and [facility] since they accept COVID+ patients. Currently patient is on 60% Fi02. PEr MD, patient's respiratory status is worsening. CM to follow pt's progress for dc planning. Patsy Koehler V, Cabinetmaker Maintenance Turntable Operator - 06/09/21 16:10:00 Patsy Koehler V, Cabinetmaker Maintenance [facility] [place] - 06/18/2021 15:16 EDT documented in this encounter Plan of Treatment Not on file documented as of this encounter Visit Diagnoses Not on filedocumented in this encounter
--- OUTSIDE RECORDS SUMMARY | 2025-03-08 13:16 | XMS_ITS | Encounter Summary ---
Author Organization [employer] ([place], [place], [place], [place]) Address [address] [place] [address] Care Team Providers Care Decker Operator Name Role Phone Unavailable Primary Care Provider Unavailabl e Encounter Details Date Type Department Care Team (Late st Contact Info) Description 06/18/2021 Transcribed Document [facility] [place] [facility] [address] [place] [address] ProviderTg MD [address] [place] [address] Social History Tobacco Use Types Packs/Day Years Used Date Smoking Tobacco: Never Assessed Comments Unknown Sex and Gender Information Value Date Recorded Sex Assigned at Not on file Legal Sex Female 2:39 PM CDT Gender Identity Not on file Sexual Orientation Not on file documented as of this encounter Miscellaneous Notes * Cerner Conversion Note - Tg Jones MD - 06/18/2021 1:31 PM CDT Patient: SUDHA TIMMONS Age: 75 [...] had a COVID. Mother , cause unknown. 06/18: Patient was seen and examined, confused, lethargic, she is on tube feed, NA is [...] Q3H, PRN: Tachycardia Lovenox: 115 mg, SubCutaneous, [id number] MiraLax: 17 Gram, Oral, Daily Pepcid: 20 mg, Oral, Daily Robitussin: 400 mg, Oral, Q4HInt SEROquel: 12.5 mg, Oral, BID, PRN: Agitation Zofran: 4 mg, IV Push, Q4H, PRN: Nausea aspirin: 81 mg, Feeding Tube, Daily atovaquone: 750 mg, Oral, BID cefTRIAXone: 2 Gram, 100 mL/Hr, IV Piggyback, [id number] glucagon: 1 mg, IntraMuscular, Q15Min, PRN: Other [...] micafungin: 100 mg, 100 mL/Hr, IV Piggyback, [id number] oxyCODONE: 5 mg, Oral, Q4H, PRN: Pain [...] Oral, BID cefTRIAXone 2 Gram, IV Piggyback, [id number] enoxaparin 60 mg/0.6 mL inj 115 mg 1.15 mL, SubCutaneous, [id number] famotidine 20 mg tab 20 mg 1 Tab, Oral, Daily guaiFENesin 200 mg/10 mL liq 400 mg 20 mL, Oral, Q4HInt insulin regular 1 unit/0.01 mL inj 3mL Scale A, SubCutaneous, Q6H lactobacillus acidophilus cap 1 Cap, Oral, Daily micafungin sodium 100 mg, IV Piggyback, [id number] polyethylene glycol 3350 pwd 17 g pkt [...] Medical Hip pain, right / SNOMED CT 6316754399 / Confirmed At risk for sleep apnea / IMO 78716561 / Confirmed At risk for violence / IMO 06828734 / Confirmed Concussion / SNOMED CT 4529626145 / Confirmed concussion with loss of memory+ Disease caused by 2019 novel coronavirus / SNOMED CT 3206375834 / Confirmed Problem added by a rule: [id number]. Fall / SNOMED CT 2761583 / Confirmed HTN (hypertension) / SNOMED CT 0994552763 / Confirmed Depression / SNOMED CT 4520394147 / Confirmed Numbness and tingling / SNOMED CT 0075262804 / Confirmed numbness and tingling right thigh area to toes Osteoarthritis / SNOMED CT 0129521682 / Confirmed Pain / SNOMED CT 29941836 / Confirmed right buttocks pain Leg pain, right / SNOMED CT 378295920 / Confirmed sleep apnea / SNOMED CT 278850856 / Confirmed Insomnia / SNOMED CT 504164474 / Confirmed Tremor / SNOMED CT 93544719 / Confirmed, Active Problems (17) At risk [...] 24 hrs) Last Charted Minimum Maximum Temp 98.9 (JUN 18 10:38) 97.7 (JUN 17 20:36) 98.6 (JUN 17 17:33) Mon HR 111 (JUN 18 10:38) 100 (JUN 18 01:00) 111 (JUN 18 10:38) Resp Rate 20 (JUN 18 10:38) 18 (JUN 18 08:00) 20 (JUN 17 17:33) SBP H 144 (JUN 18 10:38) 101 (JUN 18 08:00) H 146 (JUN 18 01:00) DBP H 92 (JUN 18 10:38) 79 (JUN 18 08:00) H 93 (JUN 18 01:00) MAP 109 (JUN 18 10:38) 89 (JUN 17 17:33) 113 (JUN 18 01:00) SpO2 94 (JUN 18 10:38) L 93 (JUN 18 08:00) 98 (JUN 18 07:00) General: confused, lethargiic , Not alert and [...] No rash. Neurologic: Not alert, Not oriented. Electrolytes([facility]) Results (Current Encounter/Past 24 Hours) Sodium Level 145 mmol/L 06/18/2021 05:59 Potassium Level 5.0 mmol/L 06/18/2021 05:59 Chloride Level 116 mmol/L [place] 06/18/2021 05:59 Carbon Dioxide Level 26 mmol/L 06/18/2021 05:59 Anion Gap 8 LOW 06/18/2021 05:59 Blood Urea Nitrogen 21 mg/dL 06/18/2021 05:59 Glucose Level 116 mg/dL [place] 06/18/2021 05:59 Calcium Level 8.5 mg/dL 06/18/2021 05:59 Creatinine Level 0.60 mg/dL 06/18/2021 05:59 Blood Gases (Current Encounter/Past 24 Hours) No Blood Gas Results Found (Past 24 Hours) JUN 18 05:41 145 H 116 21 / H 116 5.0 26 0.60 \ JUN 18 05:41 \ L 8.9 / 8.2 210 / L 27.7 \ Radiology Results (Last 48 hours) [id number] -- 06/07/2021 12:36 CR Chest 1 Vw [...] Kidney function with creatinine down to 0.6 today -Mild elevation of CK not clinically significant -None oliguric, UOP of 2850 ml/hour -Avoid nephrotoxins, please keep MAP above 65, Avoid IV Contrast -strict intake and output -currently on Water to 70 ml/hour with NA:145 -Thanks for consultation, follow along with you Florence Kennedy MD Electronically signed by [facility], [facility] Conversion Tie Worker Cerner at 12/18/2022 9:11 AM CDT documented in this encounter Plan of Treatment Not on file documented as of this encounter Visit Diagnoses Not on filedocumented in this encounter
--- OUTSIDE RECORDS SUMMARY | 2025-03-08 13:16 | XMS_ITS | Encounter Summary ---
Author Organization [employer] ([place], [place], [place], [place]) Address [address] [place] [address] Care Team Providers Care Internal Medicine Veterinary Technician Name Role Phone Unavailable Primary Care Provider Unavailabl e Encounter Details Date Type Department Care Team (Late st Contact Info) Description 06/17/2021 Transcribed Document [facility] [place] Family Medicine [address] [place] [address] ProviderTg MD [address] [place] [address] Social History Tobacco Use Types Packs/Day Years Used Date Smoking Tobacco: Never Assessed Comments Unknown Sex and Gender Information Value Date Recorded Sex Assigned at Not on file Legal Sex Female 2:39 PM CDT Gender Identity Not on file Sexual Orientation Not on file documented as of this encounter Miscellaneous Notes * Cerner Conversion Note - Tg ProviderMD - 06/17/2021 10:01 AM CDT Bronchodilator Assessment Score, RT Entered On: 06/17/2021 10:01 EDT Performed On: 06/17/2021 10:01 EDT by RIGO JIMENEZ CRT Bronchodilator Assessment Score, RT Pulmonary Diagnosis/History : covid Home Respiratory Medications : n/a Home Oxygen Comment : n/a Home CPAP Comment : n/a Pulmonary History, Bronchodilator Assessment Score : No pulmonary history Smoking History, Bronchodilator Assessment Score : No smoking history Chest Xray Results, Bronchodilator Assessment Sc : Clear or none Surgical Status, Bronchodilator Assessment Score : No surgery Respiratory Status, Bronchodilator Assessment Sc : Regular pattern - no dyspnea Breath Sounds, Bronchodilator Assessment Score : Crackles and or rhonchi Oxygen Level, Bronchodilator Assessment Score : 3-6 LPM Cough, Bronchodilator Assessment Score : Weak cough, no rhonchi Bronchodilator Assessment Score Comments : prn Assessment Score, Bronchodilator Assessment Score : 5 RIGO JIMENEZ CRT - 06/17/2021 10:01 EDT documented in this encounter Plan of Treatment Not on file documented as of this encounter Visit Diagnoses Not on filedocumented in this encounter
--- OUTSIDE RECORDS SUMMARY | 2025-03-08 13:16 | XMS_ITS | Encounter Summary ---
Author Organization [employer] ([place], [place], [place], [place]) Address [address] [place] [address] Care Team Providers Care Metal Off Bearer Name Role Phone Unavailable Primary Care Provider Unavailabl e Encounter Details Date Type Department Care Team (Late st Contact Info) Description 06/08/2021 Transcribed Document [facility] Cardiology [address] [place] [address] Rubén Vásquez MD [address] [facility] [address] [place] [address] Social History Tobacco Use Types Packs/Day Years Used Date Smoking Tobacco: Never Assessed Comments Unknown Sex and Gender Information Value Date Recorded Sex Assigned at Not on file Legal Sex Female 2:39 PM CDT Gender Identity Not on file Sexual Orientation Not on file documented as of this encounter Miscellaneous Notes * Cerner Conversion Note - Rubén Vásquez MD - 06/08/2021 8:40 AM EDT Patient: SUDHA TIMMONS Age: 75 years Sex: Female : 1945 Associated Diagnoses: None Author: RUBÉN VÁSQUEZ MD-CAR Basic Information PCP: Chuck Wagon Driver: SAHIL Dang Chief Complaint Consult for elevated troponin History of Present Illness Patient is an unfortunate 75-year-old female with a known history of non-Hodgkin's lymphoma, dementia, hypertension, dyslipidemia, and bipolar disorder who presented to [facility] with complaints of lethargy and general ill feeling. She states her 98-year-old father had tested positive for Covid and she believed that she may have had it to. She was found to have Covid 19 pneumonia on arrival. Cardiology has been asked to see and assist in management of care after she was found to have an elevation in her cardiac enzymes. She was however found to have a urinary tract infection. She has no complaints of chest pain, shortness of air, dizziness, syncope, fevers, or chills. At the time of this assessment the patient is resting comfortably no acute distress and chest pain-free. Review of Systems Constitutional: Negative except as documented in history of present illness. Eye: Negative except as documented in history of present illness. Ear/Nose/Mouth/Throat: Negative except as documented in history of present illness. Respiratory: Negative except as documented in history of present illness. Cardiovascular: Negative except as documented in history of present illness. Gastrointestinal: Negative except as documented in history of present illness. Genitourinary: Negative except as documented in history of present illness. Hematology/Lymphatics: Negative except as documented in history of present illness. Endocrine: Negative except as documented in history of present illness. Immunologic: Negative except as documented in history of present illness. Musculoskeletal: Negative except as documented in history of present illness. Integumentary: Negative except as documented in history of present illness. Neurologic: Negative except as documented in history of present illness. Psychiatric: Negative except as documented in history of present illness. ROS reviewed as documented in chart Health Status Allergies (4) Active Reaction Anaprox Rash codeine None Documented Latex Itching naproxen None Documented Home Medications (14) Active aspirin 81 mg [...] mg = 1 Tab, PRN, Oral, Q4H Allergies: Allergic Reactions (Selected) Severity Not Documented Anaprox- Rash. Codeine- No reactions were documented. Latex- Itching. Naproxen- No reactions were documented., Allergies (4) Active Reaction Anaprox Rash codeine None Documented Latex Itching naproxen None Documented Current medications: (Selected) Inpatient Medications Ordered Combivent Respimat CFC free 100 mcg-20 mcg/inh inhalation aerosol: 2 Puff, Inhalation, RT_QID Lopressor: 5 mg, IV Push, Q6H, PRN: Tachycardia Lovenox: 40 mg, SubCutaneous, Q12H Tylenol: 325 mg, Oral, Q4H, PRN: Temperature Zofran: 4 mg, IV Push, Q4H, PRN: Nausea aspirin: 81 mg, Oral, Daily cefTRIAXone: 2 Gram, 100 mL/Hr, IV Piggyback, [id number] cloNIDine: 0.1 mg, Oral, Q4H, PRN: Hypertension dexAMETHasone: 6 mg, IV Push, [id number] doxycycline: 100 mg, Oral, BID hydrALAZINE: 10 mg, IV Push, Q6H, PRN: Hypertension hydrOXYzine hydrochloride: 25 mg, Oral, At Bedtime, PRN: Sleep lactulose: 20 Gram, Oral, Q6H lisinopril: 2.5 mg, Oral, Daily lithium: 300 mg, Oral, BID metoprolol tartrate: 50 mg, Oral, BID pantoprazole: 40 mg, Oral, Daily remdesivir: 250 mL/Hr, IV Piggyback, [id number] Prescriptions Prescribed Metoprolol Tartrate 50 mg oral [...] Cap, Oral, BID, 30 Cap, 0 Refill(s), Medications (18) Active Scheduled: (12) albuterol-ipratropium CFC free 4 g inh 2 Puff, Inhalation, RT_QID aspirin EC 81 mg tab 81 mg 1 Tab, Oral, Daily cefTRIAXone 2 Gram, IV Piggyback, [id number] dexAMETHasone 4 mg/1 mL inj 6 mg 1.5 mL, IV Push, D60YWmr doxycycline hyclate 100 mg cap 100 mg 1 Cap, Oral, BID enoxaparin 40 mg/0.4 mL inj 40 mg 0.4 mL, SubCutaneous, Q12H lactulose 20 g/30 mL oral liq 20 Gram 30 mL, Oral, Q6H lisinopril 5 mg tab 2.5 mg 0.5 Tab, Oral, Daily lithium carbonate 300 mg cap 300 mg 1 Cap, Oral, BID metoprolol tartrate 50 mg tab 50 mg 1 Tab, Oral, BID pantoprazole EC 40 mg tab 40 mg 1 Tab, Oral, Daily remdesivir , IV Piggyback, [id number] Continuous: (0) PRN: (6) acetaminophen 325 mg tab 325 mg 1 Tab, Oral, Q4H cloNIDine 0.1 mg tab 0.1 mg 1 [...] Problems Hip pain, right / SNOMED CT 3699026502 / Confirmed At risk for sleep apnea / IMO 62845480 / Confirmed Bipolar I disorder, current or most recent episode depressed, with psychotic features with catatonia / SNOMED CT 92500201 / Confirmed Concussion / SNOMED CT 3655155341 / Confirmed concussion with loss of memory+ Disease caused by 2019 novel coronavirus / SNOMED CT 4908796628 / Confirmed Problem added by a rule: [id number]. Fall / SNOMED CT 5774223 / Confirmed H/O non-Hodgkin's lymphoma / SNOMED CT 9369248751 / Confirmed HTN (hypertension) / SNOMED CT 5353625124 / Confirmed Depression / SNOMED CT 4098551073 / Confirmed Numbness and tingling / SNOMED CT 0204128156 / Confirmed numbness and tingling right thigh area to toes Osteoarthritis / SNOMED CT 8123859551 / Confirmed Pain / SNOMED CT 50271619 / Confirmed right buttocks pain Leg pain, right / SNOMED CT 786260490 / Confirmed sleep apnea / SNOMED CT 457295442 / Confirmed Insomnia / SNOMED CT 149633927 / Confirmed Tremor / SNOMED CT 39883595 / Confirmed, Active Problems (16) At risk for sleep apnea Bipolar I disorder, current or most recent episode depressed, with psychotic features with catatonia Concussion Depression Disease caused by 2019 novel coronavirus Fall H/O non-Hodgkin's lymphoma Hip pain, right HTN (hypertension) Insomnia Leg pain, right Numbness and tingling Osteoarthritis Pain sleep apnea Tremor Histories No education data available. Social & Psychosocial Habits Alcohol 06/05/2016 Alcohol Use History, Social Habits No Employment/School 06/05/2016 Status: Retired Previous employment/school: [employer] Home/Environment 06/05/2016 Lives with: 94 y/o father [...] Never smoker Second Hand Smoke Exposure Yes Past Medical History: Bipolar disorder, hypertension, dyslipidemia, Family History: Noncontributory Procedure history: heart cath in 2007 at 62 Years. bilateral breast reduction in 1992 at 47 Years. DAIJA in 1983 at 38 Years. tubal in 1971 at 26 Years. x 2. 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 sciatic nerve surgery. Power port placement. Social History Social & Psychosocial Habits Alcohol 06/05/2016 Alcohol Use History, Social Habits No Employment/School 06/05/2016 Status: Retired Previous employment/school: [employer] Home/Environment 06/05/2016 Lives with: 94 y/o father [...] Never smoker Second Hand Smoke Exposure Yes . Physical Examination VS/Measurements Vitals Signs (last 24 hrs) Last Charted Minimum Maximum Temp 97.6 (JUN 08 05:35) 97.6 (JUN 08 05:35) H 102.0 (JUN 07 11:34) Apical HR H 103 (JUN 07 21:40) 98 (JUN 07 15:51) H 112 (JUN 07 14:38) Mon HR 110 (JUN 08 05:35) 74 (JUN 07 22:52) 132 (JUN 07 11:34) Periph HR 134 (JUN 07 10:56) 134 (JUN 07 10:56) 134 (JUN 07 10:56) Resp Rate 20 (JUN 08 05:00) 18 (JUN 07 14:30) H 86 (JUN 07 21:30) SBP 133 (JUN 08 05:35) 133 (JUN 08 05:35) H 193 (JUN 07 15:40) DBP 83 (JUN 08 05:35) 65 (JUN 07 22:52) H 105 (JUN 07 15:40) MAP 97 (JUN 08 05:35) 94 (JUN 07 22:52) 132 (JUN 07 14:02) SpO2 94 (JUN 08 05:35) L 89 (JUN 07 13:13) 100 (JUN 07 15:00) General: Alert and oriented, No acute distress. Eye: Pupils are equal, round and reactive to light, Extraocular movements are intact. HENT: Normocephalic, Tympanic membranes are clear, Oral mucosa is moist. Neck: Supple, Non-tender. Respiratory: Respirations are non-labored, Symmetrical chest wall expansion. Breath sounds: Bilateral, Anterior, Posterior, Diminished, Rhonchi present. Cardiovascular: Normal rate, Regular rhythm, Normal peripheral perfusion. Arterial pulses: Bilateral, Lower extremity, 1+. Capillary refill: Bilateral, Upper extremity, Prolonged. Gastrointestinal: Soft, Non-tender, Non-distended, Normal bowel sounds. Genitourinary: No costovertebral angle tenderness. Musculoskeletal: Normal range of motion, Normal strength. Integumentary: Warm, Dry, Intact. Neurologic: Alert, Oriented, No focal deficits. Psychiatric: Cooperative, Appropriate mood & affect. Review / Management JUN 08 04:00 H 147 H 120 13 / 106 3.6 21 0.60 \ JUN 08 04:00 \ L 9.9 / 6.5 220 / L 30.3 \ Cardiac Markers (Current Encounter/Past 24 Hours) CK 441 Units/Liter HI 06/08/2021 06:26 ProBNP 142 pg/mL HI 06/07/2021 16:25 Blood Gases (Current Encounter/Past 24 Hours) pH Art 7.48 HI 06/07/2021 11:12 pCO2 Art 31.1 LOW 06/07/2021 11:12 pO2 Art 78.6 LOW 06/07/2021 11:12 HCO3 Art 22.9 06/07/2021 11:12 BE Art -.2 06/07/2021 11:12 sO2 Art 96.3 06/07/2021 11:12 tHb Art 11.0 LOW 06/07/2021 11:12 FHHb 3.6 NA 06/07/2021 11:12 ctO2 14.7 NA 06/07/2021 11:12 Delivery Device Type Art Cannula NA 06/07/2021 11:12 Temperature, F Art 98.6 NA 06/07/2021 11:12 Art Blood Gas (ABG) Site Right Radial 06/07/2021 11:12 Acceptable Kevin's Test Art Acceptable NA 06/07/2021 11:12 Ventilator Mode Art N/A NA 06/07/2021 11:12 Oxygen Flow Rate Art 2.0 NA 06/07/2021 11:12 ABG Num of Draw Attempts 1 NA 06/07/2021 11:12 Radiology Results (Last 48 hours) [id number] -- 06/07/2021 12:36 CR Chest 1 Vw [...] hydronephrosis of uncertain etiology orsignificance.. Otherwise, unremarkable. Results review: Labs (Last four charted values) WBC 6.5 (MAY 10) 6.3 (JUN 07) HB L 9.9 (MAY 10) L 10.4 (JUN 07) HCT L 30.3 (MAY 10) L 32.4 (MAY 09) Plt 220 (MAY 10) 207 (MAY 09) Na H 147 (MAY 10) 142 (MAY 09) K 3.6 (MAY 10) L 3.2 (MAY 09) Cl H 120 (MAY 10) 111 (MAY 09) CO2 21 (MAY 10) 22 (JUN 07) BUN 13 (OCT 10) 14 (JUN 07) Cr 0.60 (JUN 08) 0.80 (JUN 07) Glu R 106 (JUN 08) H 117 (JUN 07) Ca 8.9 (JUN 08) 8.8 (JUN 07) Lactic 1.0 (JUN 07) PT 11.4 (JUN 08) 11.4 (JUN 07) 11.4 (JUN 07) INR 1.1 (JUN 08) 1.1 (JUN 07) 1.1 (JUN 07) PTT 23.2 (JUN 07) AST H 420 (JUN 08) H 347 (JUN 07) ALT H 181 (JUN 08) H 134 (JUN 07) ALK P 99 (JUN 08) 104 (JUN 07) T Bili 0.6 (JUN 08) 0.9 (JUN 07) PTN L 5.6 (JUN 08) L 6.2 (JUN 07) ALB L 2.3 (JUN 08) L 2.7 (JUN 07) Troponin C 1.220 (JUN 08) 0.039 (JUN 07) . Impression and Plan IMPRESSION: * Elevated cardiac enzymes in the setting of COVID-19 pneumonia and UTI. * Acute hypoxic respiratory failure A. Sepsis a. COVID-19 pneumonia b. Urinary tract infection * Hypertension * Dyslipidemia * Bipolar disorder * Transaminitis * Anemia * History of non-Hodgkin's lymphoma PLAN; Echocardiogram: invasive vs. non-invasive coronary workup depending [...]
--- OUTSIDE RECORDS SUMMARY | 2025-03-08 13:16 | XMS_ITS | Encounter Summary ---
Author Organization [email or web address] ([place], [place], [place], [place]) Address [address] [place] [address] Care Team Providers Care Document Management Analyst Name Role Phone Unavailable Primary Care Provider Unavailabl e Encounter Details Date Type Department Care Team (Late st Contact Info) Description 06/12/2021 Transcribed Document [facility] [place] Family Medicine [address] [place] [address] ProviderTg MD [address] [place] [address] Social History Tobacco Use Types Packs/Day Years Used Date Smoking Tobacco: Never Assessed Comments Unknown Sex and Gender Information Value Date Recorded Sex Assigned at Not on file Legal Sex Female 2:39 PM CDT Gender Identity Not on file Sexual Orientation Not on file documented as of this encounter Miscellaneous Notes * Cerner Conversion Note - Historical ProviderMD - 06/12/2021 2:00 AM CDT Deep Submergence Vehicle Operator Details Entered On: 06/12/2021 4:49 EDT Performed On: 06/12/2021 2:00 EDT by Magda Dawson Rn Order Details Transport Mode Order Detail : Bed (including specialty) Isolation Precautions Order Detail : Airborne precautions, Contact precautions, Droplet precautions Order Detail : N/A IV Order Detail : 0 Oxygen Order Detail : 1 Nurse Collect Order Detail : 1 Lift/Transfer : Maximal assist Central Line Order Detail : Yes Room Service : Not Appropriate Arterial Line : No Patient Needs Meds Crushed/Liquid : No Magda Dawson Rn - 06/12/2021 4:49 EDT documented in this encounter Plan of Treatment Not on file documented as of this encounter Visit Diagnoses Not on filedocumented in this encounter
--- OUTSIDE RECORDS SUMMARY | 2025-03-08 13:16 | XMS_ITS | Encounter Summary ---
Author Organization [employer] ([place], [place], [place], [place]) Address [address] [place] [address] Care Team Providers Care Market Basket Maker Name Role Phone Unavailable Primary Care Provider Unavailabl e Encounter Details Date Type Department Care Team (Late st Contact Info) Description 06/18/2021 Transcribed Document [facility] [place] [address] [place] [address] ProviderTg MD [address] [place] [address] Social History Tobacco Use Types Packs/Day Years Used Date Smoking Tobacco: Never Assessed Comments Unknown Sex and Gender Information Value Date Recorded Sex Assigned at Not on file Legal Sex Female 2:39 PM CDT Gender Identity Not on file Sexual Orientation Not on file documented as of this encounter Miscellaneous Notes * Cerner Conversion Note - Tg ProviderMD - 06/18/2021 9:56 AM CDT Swallow Evaluation Entered On: 06/18/2021 9:57 EDT Performed On: 06/18/2021 9:40 EDT by AMY FIGUEROA, TALENT SOLUTIONS MANAGER General Information Therapy Diagnosis, TALENT SOLUTIONS MANAGER : Pt presents with mild oral and functional pharyngeal skills. Recommendations: 1. Puree textures and thin liquids 2. Meds crushed with puree/pudding 3. Feed only when alert/positioned upright Previous Swallow Precautions : None in EMR Diet/Intake Prior to Current Admission : Soft/thin, pt unable to state Diet/Intake During Current Admission : NPO with Corpak Intubation Comment, TALENT SOLUTIONS MANAGER : N/A Respiratory Assessment Comment : nasal cannula AMY FIGUEROA, TALENT SOLUTIONS MANAGER - 06/18/2021 10:00 EDT Visit Type, TALENT SOLUTIONS MANAGER : Initial evaluation Patient Orders : TALENT SOLUTIONS MANAGER Bedside Swallow Evaluation -111 Start: 06/18/21 9:56:00 EDT, Routine, For Swallow Eval and Treat - MARGO AMBRIZ MD-ISABEL Admission Date : Admission Date/Time: 06/07/21 12:36:00 Personal Devices : Personal Devices No Devices Recorded Assistive Devices : Assistive Devices No Devices Recorded Active Diagnoses : 06/07/2021 12:00 Altered mental status 06/07/2021 12:00 Sepsis, unspecified organism 06/07/2021 12:00 Urinary tract infection, site not specified Vital Signs RTF : Vitals Temp BP Pulse RR SpO2 FIO2 Date Wt(kg) Wt(lb) 06/18 05:00 ---- 138/87 --- 20 96 4.0L/m 06/18 01:00 ---- 146/93 --- 20 96 5.0L/m 06/17 20:36 ---- 141/81 --- 20 95 5.0L/m 06/17 20:30 ---- ----- --- -- --- 5.0L/m 06/17 17:33 ---- 125/80 --- 20 97 5.0L/m 24 Hr Tmax: No Data Available 36 Hr Tmax: No Data Available Vital Signs are the last 5 in the past 48 hours. Weights display the last 5 within 7 days. Initial Wt: 06/07 113.6 kg 250 lb AMY FIGUEROA SLP - 06/18/2021 9:57 EDT General Status Patient Received Status, TALENT SOLUTIONS MANAGER : Long sitting in bed Patient Left Status, TALENT SOLUTIONS MANAGER : Long sitting in bed AMY FIGUEROA SLP - 06/18/2021 10:00 EDT Pain Assessment Pain Scaled Used : FLACC FLACC Face : No particular expression or smile FLACC Legs : Normal position or relaxed, usual tone and motiion to limbs FLACC Activity : Lying quietly, normal position, moves easily, regular, rhythmic respirations FLACC Cry : No cry, awake or asleep FLACC Consolability : Content, relaxed FLACC Pain Score : 0 AMY FIGUEROA SLP - 06/18/2021 10:03 EDT Image 1 - Images currently included in the form version of this document have not been included in the text rendition version of the form. Oral Mechanism Resonance Types : Appropriate Facial Appearance: : Symmetrical Labial Appearance : Symmetrical Labial Function : Unable to perform Lingual Appearance : Symmetrical Lingual Function : Unable to perform Mandible Appearance/Structure : Intact AMY FIGUEROA, TALENT SOLUTIONS MANAGER - 06/18/2021 10:03 EDT Bedside Swallow Swallow Outcome BS Swallow : Intact Head Control BS Swallow : Leaning, left Presentation Style BS Swallow : Clinician Swallow Position BS Swallow : Upright 90 degrees Trunk Control BS Swallow : Leaning, left Consistencies Trialed BS Swallow : Ice chips, Thin by spoon, Thin by straw, Pureed, Mechanically altered AMY FIGUEROA, TALENT SOLUTIONS MANAGER - 06/18/2021 10:03 EDT Swallow Impressions Impressions, BS Swallow : Signs/Symptoms of oral phase dysphagia Contributing Factors BS Swallow : Alertness, reduced, Difficulty following directions, Attention, impaired, Weak protective reactions Awareness/Strategies, Swallow : Limited to none Swallowing Outcome Measures : Functional Oral Intake Scale (FOIS) Functional Oral Intake Scale (FOIS) : Level AMY FIGUEROA, TALENT SOLUTIONS MANAGER - 06/18/2021 10:03 EDT Bedside Swallow Overall Impressions : 75 y/o WF with PMH of non-hodkins lymphoma, dementia, HTN who presents with lethargy and dysuria. Patient reports her 98 year old father with whom she lives tested positive for covid and she believes she has it too. She also endorses having dysuria and feeling malaise for the last week. Patient denies having fever/chills, SOA, cough, chest pain, palpitations, n/v/d, and abdominal pain. UA consistent with UTI. COVID POSITIVE. Patient is being admitted for sepsis due to UTI and COVID-19 pneumonia. Neuro consulted due to continued encephalopathy. History of cognitive deficits and mental health issues. Head CT (-); MRI pending. Pt presents with mild oral dysphagia and functional pharyngeal skills. Pt awake and confused - difficulty following simple commands. Occasional mumbling/nonsensical speech. Unable to follow commands for full oral white hospital exam. Good oral acceptance with PO trials. Limited dentition noted with prolonged mastication and bolus holding with soft solids. Mild oral residue noted with thin liquid wash utilized to clear. Timely swallow initiation with puree and thin liquids. Recommend puree textures, thin liquids, meds crushed with puree/pudding, feed only when alert/upright positioned. TALENT SOLUTIONS MANAGER to follow up regarding full neuro note and need for further communication/cognitive eval. AMY FIGUEROA TALENT SOLUTIONS MANAGER - 06/18/2021 10:08 EDT Swallow Recommendations Recommended Diet Type, SwRec : Pureed Recommended Liquid Diet, SwRec : Thin Feeding Presentation Style, SwRec : No restrictions Swallow Position, SwRec : Upright 90 degrees Comp Strategies/Sw Precautions, SwRec : Feed only when alert, Oral care before oral intake Supervision Level w/Meals, SwRec : Assist, total Recommended Med Present, SwRec : Crushed, With puree/pudding AMY FIGUEROA TALENT SOLUTIONS MANAGER - 06/18/2021 10:03 EDT Therapy Indication Assessment TALENT SOLUTIONS MANAGER Indicated : No TALENT SOLUTIONS MANAGER Not Indicated : At prior level of function Potential Barriers to TALENT SOLUTIONS MANAGER : Acuity of illness, Cognitive deficit, Fatigue TALENT SOLUTIONS MANAGER Rehabilitation Potential : At prior level of function AMY FIGUEROA SLP - 06/18/2021 10:03 EDT Education Barriers To Learning : Acuity of Illness, Cognitive deficit Individuals Taught : Patient Readiness to Learn : Other: Unable to participate due to cognition AMY FIGUEROA SLP - 06/18/2021 10:03 EDT TALENT SOLUTIONS MANAGER Education Assessment Grid 1 Aspiration : Needs reinforcement Diet Recommendation : Needs reinforcement Dysphagia : Needs reinforcement Evaluation Results : Needs reinforcement Oral Care : Needs reinforcement AMY FIGUEROA SLP - 06/18/2021 10:03 EDT TALENT SOLUTIONS MANAGER Education Assessment Grid 2 Speech Language Pathology Treatment Plan : Needs reinforcement Swallowing, Anatomy/Physiology Review : Needs reinforcement AMY FIGUEROA SLP - 06/18/2021 10:[address] [facility] TALENT SOLUTIONS MANAGER Charges Evaluation Swallowing Function : 1 AMY FIGUEROA SLP - 06/18/2021 10:03 EDT Anticipated Discharge Needs, TALENT SOLUTIONS MANAGER Anticipated Discharge to : Unit, penitentiary Recommend Continued Therapy at Discharge : No AMY FIGUEROA SLP - 06/18/2021 10:03 EDT documented in this encounter Plan of Treatment Not on file documented as of this encounter Visit Diagnoses Not on filedocumented in this encounter
--- OUTSIDE RECORDS SUMMARY | 2025-03-08 13:16 | XMS_ITS | Encounter Summary ---
Author Organization [employer] ([place], [place], [place], [place]) Address [address] [place] [address] Care Team Providers Care Securities Clerk Name Role Phone Unavailable Primary Care Provider Unavailabl e Encounter Details Date Type Department Care Team (Late st Contact Info) Description 06/08/2021 Transcribed Document [facility] [place] [address] [place] [address] ProviderTg MD [address] [place] [address] Social History Tobacco Use Types Packs/Day Years Used Date Smoking Tobacco: Never Assessed Comments Unknown Sex and Gender Information Value Date Recorded Sex Assigned at Not on file Legal Sex Female 2:39 PM CDT Gender Identity Not on file Sexual Orientation Not on file documented as of this encounter Miscellaneous Notes * Cerner Conversion Note - Tg Jones MD - 06/08/2021 2:05 PM CDT Patient: SUDHA TIMMONS Age: 75 Years Sex: Female : 1945 Subjective Patient seen and examined date of service 06/08/2021. Patient does not have any medical concerns over time of evaluation. She endorses continued dry cough and malaise. Begging for Hamlin catheter to stay in place today. Patient denies having fever/chills, chest pain, palpitations, n/v/d, abdominal pain, and dysuria. Vital Signs T: 36.7 ??C TMIN: 36.4 ??C TMAX: 36.7 ??C HR: 122 RR: 18 BP: 133/102 SpO2: 100% Oxygen Settings (Last) Oxygen Therapy Mode: Nasal cannula (06/08/21 10:10:00) Oxygen Flow Rate: 2 Liter/Min (06/08/21 10:10:00) Intake & Output Totals Last 24 Hours (7a-7a) Input Total: 2616.1 mL Output Total: 2850 mL Balance: -233.9 mL Physical Exam General: [Alert and oriented, well nourished, no acute distress]. Neurologic: [Awake, alert, and oriented though slower to respond, no focal neurological deficits moving arms and [...] protocol -Blood cultures collected -Follow urine culture Prelim + GNR -Continue Rocephin and doxy, stopped prn Tylenol with increasing lfts Acute hypoxic respiratory failure due to COVID-19 pneumonia, POA -Continuous oxygen monitoring -Precautions in place -Continue dexamethasone, remdesivir, inhaler, empiric antibiotics Rocephin and doxycycline, trend inflammatory markers Transaminitis -Acetaminophen alcohol level negative -Likely due to COVID-19, patient denies alcohol use -RUQ US noted, normal liver and gb -Stopped prn Tylenol with increasing lfts -Hold statin Hypertensive urgency, improving -Resumed home meds Metoprolol 50 bid and Lisinopril -PRN hydralazine and clonidine Sinus tachycardia -EKG noted, reg rate, continue home metoprolol, PRN Lopressor for tachycardia Elevated troponin -Likely reactive from COVID and tachycardia -EKG reviewed with attending, no ischemic changes -Patient denies cp -Cardiology following: Trending troponin, ordered echo, increased Lovenox dose Acute on chronic metabolic encephalopathy -CT hea neg -Ammonia 33 to 44, continue lactulose -Alert and conversational upon my evaluation, no focal neurological deficits -Per nursing patient has hx of baseline dementia, not a reliable medical technologist chemistry Bilateral LE edema -D-dimer elevated 2/2 covid -No hx of CHF, Echo from 2018 with normal EF, no excess IVF at this time -LE US NEG -ECHO pending -Giving one time lasix 40 IV Hypernatremia -Mild 147, giving one time Lasix 40 IV will help, monitor Bipolar disorder: Resume home lithium 30 bid, confirmed dose with pharmacist, lithium level low. Morbid obesity: BMI 45.8, complicates all aspects of care and resp failure with suspected OHS component Hx of non-Hodgkin's lymphoma DVT ppx: Lovenox 40 q12h FULL CODE, son is next of kin DISPO: Follow urine culture as prelim +GNR. Hope to discharge in 2-3 days pending clinical course and resp status. Await PT/OT eval as lives with 98 year old father. Time spent: 30 minutes. IDesi PA-C, personally evaluated the patient forming the plan of care above. Dr. Marielle Sommer available to answer patient plan of care questions and evaluate the patient if needed. VTE Prophylaxis - Medical Enoxaparin 110 mg, SubCutaneous, Inj, Q12H, Start 06/08/21 9:44:00 EDT (JOY MCPHERSON) Sequential Compression Device Start: 06/07/21 14:19:00 EDT, Bilateral, Length: Knee High, While patient is in bed, Continuous Order (DESI DE LA ROSA) Medications aspirin, 81 mg= 1 Tab, Oral, Daily cefTRIAXone cloNIDine, 0.1 mg= 1 Tab, Oral, Q4H, PRN Combivent Respimat CFC free 100 mcg-20 mcg/inh inhalation aerosol, 2 Puff, Inhalation, RT_QID dexAMETHasone, 6 mg= 1.5 mL, IV Push, [id number] doxycycline, 100 mg= 1 Cap, Oral, BID hydrALAZINE, 10 mg= 0.5 mL, IV Push, Q6H, PRN hydrOXYzine hydrochloride, 25 mg= 1 Tab, Oral, At Bedtime, PRN lactulose, 20 Gram= 30 mL, Oral, Q6H Lasix, 40 mg= 4 mL, IV Push, 1-Time lisinopril, 2.5 mg= 0.5 Tab, Oral, Daily lithium, 300 mg= 1 Cap, Oral, BID Lopressor, 5 mg= 5 mL, IV Push, Q6H, PRN Lovenox, 110 mg= 0.73 mL, SubCutaneous, Q12H metoprolol tartrate, 50 mg= 1 Tab, Oral, BID pantoprazole, 40 mg= 1 Tab, Oral, Daily remdesivir Zofran, 4 mg= 2 mL, IV Push, Q4H, PRN Diagnostic Results Radiology Results (Last 48 hours) [id number] -- 06/07/2021 12:36 CR Chest 1 Vw [...] hydronephrosis of uncertain etiology orsignificance.. Otherwise, unremarkable. Lab Results Test Name Test Result Date/Time Sodium Level 147 mmol/L (High) 06/08/2021 04:00 EDT Potassium Level 3.6 mmol/L 06/08/2021 04:00 EDT Chloride Level 120 mmol/L (High) 06/08/2021 04:00 EDT Carbon Dioxide Level 21 mmol/L 06/08/2021 04:00 EDT Anion Gap 10 06/08/2021 04:00 EDT Glucose Level 106 mg/dL 06/08/2021 04:00 EDT Blood Urea Nitrogen 13 mg/dL 06/08/2021 04:00 EDT Creatinine Level 0.60 mg/dL 06/08/2021 04:00 EDT eGFR >60 mL/min/1.73m2 06/08/2021 04:00 EDT eGFR NonAfrican >60 mL/min/1.73m2 06/08/2021 04:00 EDT Bun/Creatinine 21.7 (High) 06/08/2021 04:00 EDT Calcium Level 8.9 mg/dL 06/08/2021 04:00 EDT Protein Total 5.6 Gram/dL (Low) 06/08/2021 04:00 EDT Albumin Level 2.3 Gram/dL (Low) 06/08/2021 04:00 EDT Globulin 3.3 Gram/dL 06/08/2021 04:00 EDT A/G Ratio 0.7 (Low) 06/08/2021 04:00 EDT Bilirubin Total 0.6 mg/dL 06/08/2021 04:00 EDT Alk Phos 99 Units/Liter 06/08/2021 04:00 EDT AST 420 Units/Liter (High) 06/08/2021 04:00 EDT ALT 181 Units/Liter (High) 06/08/2021 04:00 EDT Magnesium Level 2.1 mg/dL 06/08/2021 04:00 EDT Magnesium Level 1.9 mg/dL 06/07/2021 15:24 EDT Ammonia Level 44.0 uMol/L (High) 06/08/2021 04:00 EDT Phosphorus 2.6 mg/dL 06/08/2021 04:00 EDT Phosphorus 2.4 mg/dL (Low) 06/07/2021 15:24 EDT CRP 13.10 mg/dL (High) 06/08/2021 04:00 EDT CRP 12.00 mg/dL (High) 06/07/2021 15:24 EDT Lactate Dehydrogenase 959 Units/Liter (High) 06/08/2021 04:00 EDT Lactate Dehydrogenase 771 Units/Liter (High) 06/07/2021 15:24 EDT Calcium Ionized 1.15 mmol/L 06/08/2021 04:00 EDT Calcium Ionized 1.10 mmol/L (Low) 06/07/2021 15:24 EDT CK 441 Units/Liter (High) 06/08/2021 04:00 EDT Troponin I Ultra 2.700 ng/mL (Critical) 06/08/2021 10:00 EDT Troponin I Ultra 1.220 ng/mL (Critical) 06/08/2021 04:00 EDT ProBNP 142 pg/mL (High) 06/07/2021 15:24 EDT WBC 6.5 K/uL 06/08/2021 04:00 EDT RBC 2.94 Million/uL (Low) 06/08/2021 04:00 EDT Hgb 9.9 g/dL (Low) 06/08/2021 04:00 EDT Hct 30.3 % (Low) 06/08/2021 04:00 EDT MCV 103.1 fL (High) 06/08/2021 04:00 EDT MCH 33.7 pg (High) 06/08/2021 04:00 EDT MCHC 32.7 Gram/dL 06/08/2021 04:00 EDT Platelet Count 220 K/uL 06/08/2021 04:00 EDT MPV 10.4 fL 06/08/2021 04:00 EDT RDW 12.5 % 06/08/2021 04:00 EDT Neut % 83.3 % (High) 06/08/2021 04:00 EDT Neut # 5.42 K/uL 06/08/2021 04:00 EDT Lymph % 11.8 % (Low) 06/08/2021 04:00 EDT Lymph # 0.77 x10(3)/uL (Low) 06/08/2021 04:[address] % 4.2 % 06/08/2021 04:[address] # 0.27 K/uL 06/08/2021 04:00 EDT Eos % 0.0 % 06/08/2021 04:00 EDT Eos # 0.00 x10(3)/uL 06/08/2021 04:00 EDT Baso % 0.2 % 06/08/2021 04:00 EDT Baso # .01 x10(3)/uL 06/08/2021 04:00 EDT nRBC 0.020 (High) 06/08/2021 04:00 EDT Slide Review No 06/08/2021 04:00 EDT IG# 0.03 x10(3)/uL 06/08/2021 04:00 EDT IG% 0.50 % 06/08/2021 04:00 EDT PT 11.4 Second(s) 06/08/2021 04:00 EDT PT 11.4 Second(s) 06/07/2021 15:24 EDT INR 1.1 06/08/2021 04:00 EDT INR 1.1 06/07/2021 15:24 EDT D Dimer Quant 6.30 mg/L FEU (High) 06/08/2021 04:00 EDT D Dimer Quant 9.23 mg/L FEU (High) 06/07/2021 15:24 EDT Procalcitonin 0.39 ng/mL 06/08/2021 04:00 EDT Procalcitonin 0.53 ng/mL 06/07/2021 15:24 EDT TSH 0.167 mcInt Units/mL (Low) 06/08/2021 04:00 EDT Ferritin Level 13685.8 ng/mL (High) 06/08/2021 04:00 EDT Ferritin Level 8233.3 ng/mL (High) 06/07/2021 15:24 EDT documented in this encounter Plan of Treatment Not on file documented as of this encounter Visit Diagnoses Not on filedocumented in this encounter
--- OUTSIDE RECORDS SUMMARY | 2025-03-08 13:16 | XMS_ITS | Encounter Summary ---
Author Organization [employer] ([place], [place], [place], [place]) Address [address] [place] [address] Care Team Providers Care Dcs Engineer Name Role Phone Unavailable Primary Care Provider Unavailabl e Encounter Details Date Type Department Care Team (Late st Contact Info) Description 06/17/2021 Transcribed Document [facility] [place] [address] [place] [address] ProviderTg MD [address] [place] [address] Social History Tobacco Use Types Packs/Day Years Used Date Smoking Tobacco: Never Assessed Comments Unknown Sex and Gender Information Value Date Recorded Sex Assigned at Not on file Legal Sex Female 2:39 PM CDT Gender Identity Not on file Sexual Orientation Not on file documented as of this encounter Miscellaneous Notes * Cerner Conversion Note - Tg ProviderMD - 06/17/2021 11:59 AM CDT On Going Discharge Planning Entered On: 06/17/2021 12:01 EDT Performed On: 06/17/2021 11:59 EDT by Patsy Koehler Social Worker Drew [...] Rounds? : Yes Patsy Koehler Social Worker Nitrogen Operator - 06/17/2021 11:59 EDT Narrative Progress Note Narrative Progress Note : HD#9, ELOS-5 RSR-moderate, Boost-5 COVID+. On 6L HFNC. Ongoing confusion. Restraints continued. On IV rocephin, micafuntgin and dexamethazone. Tolerating TF via corpak. DCP-S[facility] for rehab pending medical progress. Historical Progress Note : HD#8, ELOS-5 RSR-moderate, Boost-5 COVID+. On 5L HFNC. Ongoing confusion and attempting to pull at lines. In restraints. Leukocytosis worsening, LDH and d-dimer trending up, ferritin trending down. Tolerating TF via corpak. plans to get a neurology consult due to pt's confusion. CM to follow DCP-SNF for rehab pending medical progress. Patsy Koehler V, Sales Representative [employer] [facility] - 06/16/21 13:18:40 HD#5, ELOS-5 RSR-moderate, Boost-[address] Narda Sommer, patient with further worsening of respiratory failure. Tachycardia. Patient is criticcally ill and may need intubation. CR chest today. Patsy Koehler V Sales Representative [employer] R[employer] Nitrogen Operator - 06/13/21 09:26:38 HD#5, ELOS-5 RSR-moderate, Boost-[address] Narda Sommer, patient with further worsening of respiratory failure. Tachycardia. Patient is critically ill and may need intubation. CR chest today showed Slightly worsening bilateral opacities. Pulmonary edema is not excluded. Corpak placed. CM to follow. DCP-pending on patient's medical progress. Patsy Koehler V, Sales Representative [employer] [facility] - 06/13/21 09:29:02 HD#4, ELOS-5 RSR-moderate, Boost-5 [...] SNF when medically ready. Patsy Koehler V Sales Representative [employer] R[employer] Nitrogen Operator - 06/12/21 12:12:00 HD#4, ELOS-5 RSR-moderate, Boost-5 Patient currently on optiflow FiO2 70%, with continued increased confusion and fidgeting in the bed. ID and Pulm consulted and are making med adjustments. Per RN, patient with tachycardia the other night. DCP-[facility] pending medical progress. Patient lives with her 98 yo father and adult son. Patsy Koehler Social Worker Nitrogen Operator - 06/11/21 10:00:55 HD#4, ELOS-5 RSR-moderate, Boost-5 COVID+. Patient currently on optiflow FiO2 60%, with continued increased confusion and fidgeting in the bed. ID and Pulm consulted and are making med adjustments. Right small PE. On IV abx. Per RN, patient with tachycardia the other night. Now has mittens. Not eating or drinking per RN. DCP-[facility] pending medical progress. Patient lives with her 98 yo father and adult son. Patsy Koehler Social Worker Nitrogen Operator - 06/11/21 12:10:01 HD#3, ELOS-not recorded, RSR-moderate, Boost-4 Per MD, patient is clinical deconditioning from NC to optiflow at 60% Fi02 with increased confusion. ID, Cardiology and Pulm consulted. HIGH RISK FOR INTUBATION. Patient had a abnormal ECHO with PE. On IV cefazolin and IV steroids. CM sent referrals to [facility] and [facility] due to being COVID+ for rehab. CM to follow. Patsy Koehler Social Worker Nitrogen Operator - 06/10/21 10:25:43 HD#2, ELOS-not recorded, RSR-moderate, Boost-4 CM sent rehab referrals to [facility] and [facility] since they accept COVID+ patients. Currently patient is on 60% Fi02. PEr MD, patient's respiratory status is worsening. CM to follow pt's progress for dc planning. Patsy Koehler Social Worker Nitrogen Operator - 06/09/21 16:10:00 Patsy Koehler V Sales Representative [employer] Rope Nitrogen Operator - 06/17/2021 11:59 EDT Electronically signed by [facility] Sjh Conversion Logistics Planning Engineer Cerner at 12/18/2022 9:11 AM CDT documented in this encounter Plan of Treatment Not on file documented as of this encounter Visit Diagnoses Not on filedocumented in this encounter
--- OUTSIDE RECORDS SUMMARY | 2025-03-08 13:16 | XMS_ITS | Encounter Summary ---
Author Organization [employer] ([place], [place], [place], [place]) Address [address] [place] [address] Care Team Providers Care Metal Furnace Operator Name Role Phone Unavailable Primary Care Provider Unavailabl e Encounter Details Date Type Department Care Team (Late st Contact Info) Description 06/12/2021 Transcribed Document [facility] [place] [address] [place] [address] ProviderTg MD [address] [place] [address] Social History Tobacco Use Types Packs/Day Years Used Date Smoking Tobacco: Never Assessed Comments Unknown Sex and Gender Information Value Date Recorded Sex Assigned at Not on file Legal Sex Female 2:39 PM CDT Gender Identity Not on file Sexual Orientation Not on file documented as of this encounter Miscellaneous Notes * Cerner Conversion Note - Tg Jones MD - 06/12/2021 12:20 PM CDT Patient: SUHDA TIMMONS Age: 75 years Sex: Female : [...] moaning at present, creat remains at 2 PAST MEDICAL HISTORY Non-Hodgkin's lymphoma- finished therapy [...] Q3H, PRN: Tachycardia Lovenox: 115 mg, SubCutaneous, [id number] Mucinex: 1,200 mg, Oral, BID Protonix: 40 mg, IV Push, Daily SEROquel: 25 mg, Oral, [id number] Zofran: 4 mg, IV Push, Q4H, PRN: [...] Last Charted Minimum Maximum Temp 98.9 (JUN 12 11:38) 97.3 (JUN 12 05:53) 99.0 (JUN 11 22:47) Apical HR H 125 (JUN 12 05:53) H 119 (JUN 11 13:08) H 129 (JUN 11 18:13) Mon HR 117 (JUN 12 11:38) 89 (JUN 11 22:32) 126 (JUN 11 22:47) Resp Rate H 22 (JUN 12 11:38) 18 (JUN 11 18:17) H 22 (JUN 12 11:38) SBP 126 (JUN 12 11:38) 115 (JUN 11 18:17) 137 (JUN 12 05:53) DBP 81 (JUN 12 11:38) 70 (JUN 11 22:47) H 97 (JUN 12 05:53) MAP 93 (JUN 12 11:38) 82 (JUN 11 22:47) 109 (JUN 12 05:53) SpO2 L 86 (JUN 12 11:38) L 86 (JUN 12 11:38) 98 (JUN 11 22:32) General: No acute distress, On Optiflow . [...] Labs (Last four charted values) WBC H 13.4 (MAY 14) 10.0 (MAY 13) 7.3 (MAY 12) 7.0 (MAY 12) HB L 11.1 (MAY 14) L 10.7 (MAY 13) L 10.8 (OCT 12) L 11.0 (OCT 11) HCT L 34.0 (MAY 14) L 32.8 (OCT 13) 34.3 (OCT 12) 34.2 (OCT 11) Plt 275 (MAY 14) 257 (MAY 13) 247 (MAY 12) 267 (MAY 12) Na 145 (MAY 14) H 148 (OCT 13) H 150 (OCT 12) H 149 (OCT 11) K 3.8 (OCT 14) 3.8 (OCT 13) 3.7 (OCT 12) 3.8 (MAY 11) Cl H 114 (MAY 14) H 119 (MAY 13) H 121 (OCT 12) H 120 (MAY 11) CO2 L 20 (MAY 14) L 20 (MAY 13) 21 (MAY 12) 22 (MAY 11) BUN H 58 (MAY 14) H 49 (MAY 13) H 32 (MAY 12) 18 (MAY 11) Cr H 2.00 (MAY 14) H 2.00 (MAY 13) H 1.50 (MAY 12) 1.00 (MAY 11) Glu R H 124 (MAY 14) 100 (MAY 13) H 135 (MAY 12) H 115 (MAY 11) Ca 8.9 (MAY 14) 9.2 (JUN 11) 8.9 (MAY 12) 9.3 (JUN 09) Lactic 1.0 (JUN 07) PT 11.4 (JUN 08) 11.4 (JUN 07) 11.4 (JUN 07) INR 1.1 (JUN 08) 1.1 (JUN 07) 1.1 (JUN 07) PTT 23.2 (JUN 07) AST H 127 (MAY 13) H 128 (MAY 12) H 210 (JUN 09) H 420 (JUN 08) ALT H 67 (JUN 11) H 98 (MAY 12) H 143 (MAY 11) H 181 (JUN 08) ALK P 80 (JUN 11) 88 (MAY 12) 101 (MAY 11) 99 (JUN 08) T Bili 0.4 (JUN 11) 0.5 (JUN 10) 0.9 (JUN 09) 0.6 (JUN 08) PTN L 5.2 (JUN 11) L 5.4 (JUN 10) L 5.9 (JUN 09) L 5.6 (JUN 08) ALB L 2.1 (JUN 11) L 2.2 (JUN 10) L 2.4 (JUN 09) L 2.3 (JUN 08) Troponin C 0.845 (JUN 12) C 2.020 (MAY 12) C 2.700 (JUN 08) C 1.220 (JUN 08) . Impression and Plan IMPRESSION -- Covid pneumonia (breakthrough after vaccine) Actemra 06/09 CRP 13-> 4; Ferritin 13K-> 3K, IL 6 pending -- Acute respiratory failure -- REBECCA -- Encephalopathy, possibly from covid -- Pulmonary emboli -- Hypernatremia -- Ecoli uti -- Non Hodgkins Lymphoma -- Bipolar RECOMMENDATIONS -- Agree with remdesivir and dexamethasone -- Actemra 8mg/kg x 1 06/09 -- IL-6 -- Cd4 count - 214 -- change ceftriaxone to cefazolin for it's renal excretion -- strongyloides ab -- Low threshold for covering for opportunistic pathogens -- Hypertension Electronically signed by Julian Baca Conversion Ammunition Storage Superintendent Cerner at 12/18/2022 9:17 AM CDT documented in this encounter Plan of Treatment Not on file documented as of this encounter Visit Diagnoses Not on filedocumented in this encounter
--- OUTSIDE RECORDS SUMMARY | 2025-03-08 13:16 | XMS_ITS | Encounter Summary ---
Author Organization [employer] ([place], [place], [place], [place]) Address [address] [place] [address] Care Team Providers Care Marine Design Engineer Name Role Phone Unavailable Primary Care Provider Unavailabl e Encounter Details Date Type Department Care Team (Late st Contact Info) Description 06/12/2021 Transcribed Document [facility] [place] Medicine [address] [place] [address] ProviderTg MD [address] [place] [address] Social History Tobacco Use Types Packs/Day Years Used Date Smoking Tobacco: Never Assessed Comments Unknown Sex and Gender Information Value Date Recorded Sex Assigned at Not on file Legal Sex Female 2:39 PM CDT Gender Identity Not on file Sexual Orientation Not on file documented as of this encounter Miscellaneous Notes * Cerner Conversion Note - Tg ProviderMD - 06/12/2021 12:08 PM CDT On Going Discharge Planning Entered On: 06/12/2021 12:12 EDT Performed On: 06/12/2021 12:08 EDT by Patsy Koehler V Colorist Photography Drew Care Management Progress Note Discharge Arrangements : Patient Post-Acute Information Patient Name: SUDHA TIMMONS Gender: Female : [birth year] Age: 75 Years No Post-Acute Placement(s) Listed No Post-Acute Service(s) Listed No [place] Referral(s) Listed Discharge Options Discussed with Patient : DME, Home Health, Short term rehabilitation Barriers to Discharge Identified : Clinical Condition of Patient Patient Discharge Goal : custodial facility List/Info Provided Pt/Fam/Support Person : Inpatient rehabilitation facility, custodial facilities Is the Patient Meeting Medical Necessity : Yes Did you Attend Multidisciplinary Rounds? : Yes Patsy Koehler Social Worker [facility] [place] - 06/12/2021 12:08 EDT Narrative Progress Note Narrative Progress Note [...] transfer to the ICU. CM to follow. DCP-[facility] vs SNF when medically ready. Historical Progress Note : HD#4, ELOS-5 RSR-moderate, Boost-5 Patient currently on optiflow FiO2 70%, with continued increased confusion and fidgeting in the bed. ID and Pulm consulted and are making med adjustments. Per RN, patient with tachycardia the other night. DCP-[facility]/SNF pending medical progress. Patient lives with her 98 yo father and adult son. Patsy Koehler V Colorist Photography [facility] [place] - 06/11/21 10:00:55 HD#4, ELOS-5 RSR-moderate, Boost-5 COVID+. Patient currently on optiflow FiO2 60%, with continued increased confusion and fidgeting in the bed. ID and Pulm consulted and are making med adjustments. Right small PE. On IV abx. Per RN, patient with tachycardia the other night. Now has mittens. Not eating or drinking per RN. DCP-[facility]/SNF pending medical progress. Patient lives with her 98 yo father and adult son. Patsy Koehler V Colorist Photography [facility] [place] - 06/11/21 12:10:01 HD#3, ELOS-not recorded, RSR-moderate, Boost-4 Per MD, patient is clinical deconditioning from NC to optiflow at 60% Fi02 with increased confusion. ID, Cardiology and Pulm consulted. HIGH RISK FOR INTUBATION. Patient had a abnormal ECHO with PE. On IV cefazolin and IV steroids. CM sent referrals to [facility] due to being COVID+ for rehab. CM to follow. Patsy Koehler V Colorist Photography [facility] [place] - 06/10/21 10:25:43 HD#2, ELOS-not recorded, RSR-moderate, Boost-4 CM sent rehab referrals to [facility] and [facility] since they accept COVID+ patients. Currently patient is on 60% Fi02. PEr MD, patient's respiratory status is worsening. CM to follow pt's progress for dc planning. Patsy Koehler V, Colorist Photography Air Technician - 06/09/21 16:10:00 Patsy Koehler V, Colorist Photography Air Technician - 06/12/2021 12:08 EDT documented in this encounter Plan of Treatment Not on file documented as of this encounter Visit Diagnoses Not on filedocumented in this encounter
--- OUTSIDE RECORDS SUMMARY | 2025-03-08 13:16 | XMS_ITS | Encounter Summary ---
Author Organization [employer] ([place], [place], [place], [place]) Address [address] [place] [address] Care Team Providers Care Meter Repairer Name Role Phone Unavailable Primary Care Provider Unavailabl e Encounter Details Date Type Department Care Team (Late st Contact Info) Description 06/18/2021 Transcribed Document [facility] [place] [address] [place] [address] ProviderTg MD [address] [place] [address] Social History Tobacco Use Types Packs/Day Years Used Date Smoking Tobacco: Never Assessed Comments Unknown Sex and Gender Information Value Date Recorded Sex Assigned at Not on file Legal Sex Female 2:39 PM CDT Gender Identity Not on file Sexual Orientation Not on file documented as of this encounter Miscellaneous Notes * Cerner Conversion Note - Historical ProviderMD - 06/18/2021 2:00 AM CDT Fraud Prevention Analyst Details Entered On: 06/18/2021 4:50 EDT Performed On: 06/18/2021 2:00 EDT by Magda Dawson Rn Order [...] Yes Meds Administered Via Tube : Yes Magda Dawson Rn - 06/18/2021 4:50 EDT documented in this encounter Plan of Treatment Not on file documented as of this encounter Visit Diagnoses Not on filedocumented in this encounter
--- OUTSIDE RECORDS SUMMARY | 2025-03-08 13:16 | XMS_ITS | Encounter Summary ---
Author Organization [employer] ([place], [place], [place], [place]) Address [address] [place] [address] Care Team Providers Care Parts Facilitator Name Role Phone Unavailable Primary Care Provider Unavailabl e Encounter Details Date Type Department Care Team (Late st Contact Info) Description 06/17/2021 Transcribed Document [facility] [place] [address] [place] [address] ProviderTg MD [address] [place] [address] Social History Tobacco Use Types Packs/Day Years Used Date Smoking Tobacco: Never Assessed Comments Unknown Sex and Gender Information Value Date Recorded Sex Assigned at Not on file Legal Sex Female 2:39 PM CDT Gender Identity Not on file Sexual Orientation Not on file documented as of this encounter Miscellaneous Notes * Cerner Conversion Note - Tg Jones MD - 06/17/2021 12:55 PM CDT Patient: SARI TIMMONS Age: 75 Years Sex: Female : 1945 Chief Complaint Patient livies with 98 yo father who is currently COVID +. Patient's son found patient sitting on couch and incontinent of urine and stool. patient with general weakness and AMS erday Reason for Consultation Encephalopathy History of Present Illness 75-year-old female with a history of lymphoma, [...] on Optiflow. She is alert but confused. Review of Systems ROS negative 10 system complete review except for symptoms in HPI Vital Signs T: 37 ??C TMIN: 36.3 ??C TMAX: 37.2 ??C HR: 102(Monitored) RR: 20 BP: 148/94 SpO2: 93% HT: 157.48 cm WT: 113.6 kg BMI: 45.81 Oxygen Settings (Last) Oxygen Therapy Mode: High flow nasal cannula (06/17/21 12:00:00) Oxygen Flow Rate: 6 Liter/Min (06/17/21 12:00:00) Physical Exam Eyes, ENT-negative Pulmonary clear Cardiac without murmur Mental Status: Paucity of speech, mild to moderate confusion Cranial Nerves: II through XII intact and symmetric Motor: Strength 5/5 bilateral, normal tone and mass Sensory: Responds in all 4 toe touch Reflexes symmetric, toes down Cerebellar: no abnormal movements Gait: not tested due to pt condition Psychiatric: negative Musculoskeletal: negative Assessment/Plan This 75-year-old female with a protracted respiratory illness related to Covid, pulmonary embolism, and encephalopathy since admission. There are no significant metabolic abnormalities at this time. She has a history of cognitive impairment and psychiatric issues and at baseline. CT head on admission was normal. I will obtain MRI of the brain. I discussed her condition with Shawn family member, I will ask nursing to get him on the phone with her and update us on her condition relative to cognitive baseline. From what he told me she is nearing a baseline condition. Seroquel recently started. There does not appear to be significant metabolic issues at this time. I would like to be notified of any significant change in Neuro status. Further recommendations will be based on test results, intensive care anaesthetist communication, and clinical course. VTE Prophylaxis - Medical Enoxaparin 115 mg, SubCutaneous, Inj, [id number], Routine, Start 06/16/21 21:00:00 EDT, 06/16/21 21:00:00 EDT (ENRIQUE LINDSEY) Sequential Compression Device Start: 06/07/21 14:19:00 EDT, Bilateral, Length: Knee High, While patient is in bed, Continuous Order (CARA DE LA ROSA) Provider Information Primary Care Physician - SAMSON MARTÍNEZ MD-ONC Attending Physician - MARGO AMBRIZ MD-INT Admitting Physician - MARY BARRAGAN DO Consulting Physician - SHAKA ZENDEJAS MD - resp failure. covid. Consulting Physician - DEBBIE COLE MD-INF - covid, uti Consulting Physician - JUHI VALERIO MD-INF Consulting Physician - RISA LUNDY MD - Renal Failure Consulting Physician - PHYLICIA WESTFALL MD Consulting Physician - LUCI DUMONT MD-NIKI - Patient with encephalopathy (covid/NH lymphoma history) for evaluation and input Consulting Physician - SAROJ MEDEROS MD Referring Physician - PHY, SELF REFERRED Problem List/Past Medical History Ongoing At risk for sleep apnea At risk for violence Bipolar I disorder, current or most recent episode depressed, with psychotic features with catatonia Concussion Depression Disease caused by 2019 novel coronavirus Fall H/O non-Hodgkin's lymphoma Hip pain, right HTN (hypertension) Insomnia Leg pain, right Numbness and tingling Osteoarthritis Pain sleep apnea Tremor Historical No qualifying data Procedure/Surgical History heart cath (2007), bilateral breast reduction (1992), DAIJA (1983), tubal (1971), cataract ext / IOL OU, Power port placement, sciatic nerve surgery, x 2. Medications Inpatient aspirin, 81 mg= 1 Tab, Feeding Tube, Daily Ativan, 0.5 mg= 0.25 mL, IV Push, BID, PRN atovaquone, 750 mg= 5 mL, Oral, BID cefTRIAXone Coreg, 12.5 mg= 1 Tab, Oral, BID dexAMETHasone, 10 mg= 1 mL, IV Push, Daily Dextrose 50% injection, 25 Gram= 50 mL, IV Push, Q15Min, PRN Dextrose 50% injection, 25 Gram= 50 mL, IV Push, Q15Min, PRN Dextrose 50% injection, 25 Gram= 50 mL, IV Push, Q15Min, PRN Dextrose 50% injection, 12.5 Gram= 25 mL, IV Push, Q15Min, PRN DuoNeb 0.5 mg-2.5 mg/3 mL inhalation solution, 3 mL, Nebulized Inhalation , Q4H, PRN glucagon, 1 mg= 1 mL, IntraMuscular, Q15Min, PRN glucose 4 g oral tablet, chewable, 16 Gram= 4 Tab, Chew, Q15Min, PRN glucose 40% oral gel, 15 Gram= 37.5 mL, Oral, Q15Min, PRN hydrOXYzine hydrochloride, 25 mg= 1 Tab, Oral, At Bedtime, PRN insulin regular sliding scale, Scale A, SubCutaneous, Q6H labetalol, 10 mg= 2 mL, IV Push, Q3H, PRN lactobacillus acidophilus, 1 Cap, Oral, Daily Lipitor, 40 mg= 1 Tab, Oral, At Bedtime Lopressor, 5 mg= 5 mL, IV Push, Q3H, PRN Lovenox, 115 mg= 1.15 mL, SubCutaneous, [id number] micafungin oxyCODONE, 5 mg= 1 Tab, Oral, Q4H, PRN Pepcid, 20 mg= 1 Tab, Oral, Daily rifAXIMin, 550 mg= 1 Tab, Oral, BID Robitussin, 1200 mg= 60 mL, PEG Tube, BID SEROquel, 25 mg= 1 Tab, Oral, [id number] SEROquel, 12.5 mg= 0.5 Tab, Oral, Daily Zofran, 4 mg= 2 mL, IV Push, Q4H, PRN Home acetaminophen-HYDROcodone 325 mg-5 mg oral tablet, 1 Tab, Oral, BID, PRN Aspirin Low Dose 81 mg oral delayed release tablet, 81 mg= 1 Tab, Oral, Daily atorvastatin 40 mg oral tablet, 40 mg= 1 Tab, Oral, At Bedtime furosemide 20 mg oral tablet, 20 mg= 1 Tab, Oral, EveryOtherDay hydrOXYzine pamoate 25 mg oral capsule, 25 mg= 1 Cap, Oral, At Bedtime, PRN lisinopril 2.5 mg oral tablet, 2.5 mg= 1 Tab, Oral, Daily lithium 300 mg oral capsule, 300 mg= 1 Cap, Oral, BID Metoprolol Tartrate 50 mg oral tablet, 50 mg= 1 Tab, Oral, BID Multiple Vitamins oral tablet, 1 Tab, Oral, Daily pantoprazole 40 mg oral delayed release tablet, 40 mg= 1 Tab, Oral, Daily polyethylene glycol 3350 oral powder for reconstitution, 17 Gram, Oral, Daily potassium chloride 10 mEq oral capsule, extended release, 10 mEq= 1 Cap, Oral, Daily QUEtiapine 300 mg oral tablet, 300 mg= 1 Tab, Oral, At Bedtime Vitamin B12 1000 mcg oral tablet, 1000 mcg= 1 Tab, Oral, Daily Allergies Anaprox (Rash) Latex (Itching) codeine naproxen Social History Alcohol Alcohol Use History No. Employment/School Retired, Previous employment/school: [employer]. Home/Environment Lives with 94 y/o father. Living [...] Second Hand Smoke Exposure: Yes. Family History No significant Family History Immunizations Non contributory Diagnostic Results CT head 10???9 no significant abnormality Lab TSH slightly low, B12 adequate, ammonia normal, mildly elevated white count The results were personally reviewed by me. Lab Results Test Name Test Result Date/Time Sodium Level 143 mmol/L 06/17/2021 04:00 EDT Sodium Level 144 mmol/L 06/16/2021 14:50 EDT Potassium Level 4.7 mmol/L 06/17/2021 04:00 EDT Potassium Level 5.1 mmol/L 06/16/2021 14:50 EDT Chloride Level 115 mmol/L (High) 06/17/2021 04:00 EDT Chloride Level 117 mmol/L (High) 06/16/2021 14:50 EDT Carbon Dioxide Level 25 mmol/L 06/17/2021 04:00 EDT Carbon Dioxide Level 24 mmol/L 06/16/2021 14:50 EDT Anion Gap 8 (Low) 06/17/2021 04:00 EDT Anion Gap 8 (Low) 06/16/2021 14:50 EDT Glucose Level 141 mg/dL (High) 06/17/2021 04:00 EDT Glucose Level 214 mg/dL (High) 06/16/2021 14:50 EDT Blood Urea Nitrogen 23 mg/dL (High) 06/17/2021 04:00 EDT Blood Urea Nitrogen 26 mg/dL (High) 06/16/2021 14:50 EDT Creatinine Level 0.70 mg/dL 06/17/2021 04:00 EDT Creatinine Level 0.80 mg/dL 06/16/2021 14:50 EDT eGFR >60 mL/min/1.73m2 06/17/2021 04:00 EDT eGFR >60 mL/min/1.73m2 06/16/2021 14:50 EDT eGFR NonAfrican >60 mL/min/1.73m2 06/17/2021 04:00 EDT eGFR NonAfrican >60 mL/min/1.73m2 06/16/2021 14:50 EDT Bun/Creatinine 32.9 (High) 06/17/2021 04:00 EDT Bun/Creatinine 32.5 (High) 06/16/2021 14:50 EDT Calcium Level 8.2 mg/dL (Low) 06/17/2021 04:00 EDT Calcium Level 8.3 mg/dL (Low) 06/16/2021 14:50 EDT Protein Total 4.7 Gram/dL (Low) 06/17/2021 04:00 EDT Albumin Level 2.1 Gram/dL (Low) 06/17/2021 04:00 EDT Globulin 2.6 Gram/dL 06/17/2021 04:00 EDT A/G Ratio 0.8 (Low) 06/17/2021 04:00 EDT Bilirubin Total 0.3 mg/dL 06/17/2021 04:00 EDT Alk Phos 130 Units/Liter 06/17/2021 04:00 EDT AST 36 Units/Liter 06/17/2021 04:00 EDT ALT 22 Units/Liter 06/17/2021 04:00 EDT Magnesium Level 2.1 mg/dL 06/17/2021 04:00 EDT Ammonia Level 31.0 uMol/L 06/17/2021 07:22 EDT Phosphorus 2.4 mg/dL (Low) 06/17/2021 04:00 EDT Device Comment 1 Protocols Followed 06/17/2021 11:40 EDT Device Comment 1 Notified Nurse RBV 06/17/2021 06:25 EDT Device Comment 1 Notified Nurse RBV 06/16/2021 23:55 EDT Glucose POC2 140 mg/dL (High) 06/17/2021 11:40 EDT Glucose POC2 124 mg/dL (High) 06/17/2021 06:25 EDT Glucose POC2 145 mg/dL (High) 06/16/2021 23:55 EDT Glucose POC2 132 mg/dL (High) 06/16/2021 16:41 EDT Glucose POC2 175 mg/dL (High) 06/16/2021 16:32 EDT CRP <0.29 mg/dL 06/17/2021 04:00 EDT Lactate Dehydrogenase 582 Units/Liter (High) 06/17/2021 04:00 EDT Lactic Acid Level 1.6 mmol/L 06/17/2021 04:00 EDT ProBNP 2800 pg/mL (High) 06/17/2021 04:00 EDT WBC 12.9 K/uL (High) 06/17/2021 04:00 EDT RBC 2.65 Million/uL (Low) 06/17/2021 04:00 EDT Hgb 8.9 g/dL (Low) 06/17/2021 04:00 EDT Hct 27.7 % (Low) 06/17/2021 04:00 EDT MCV 104.5 fL (High) 06/17/2021 04:00 EDT MCH 33.6 pg (High) 06/17/2021 04:00 EDT MCHC 32.1 Gram/dL (Low) 06/17/2021 04:00 EDT Platelet Count 206 K/uL 06/17/2021 06:00 EDT Platelet Count 201 K/uL 06/17/2021 04:00 EDT MPV 12.5 fL (High) 06/17/2021 04:00 EDT RDW 12.7 % 06/17/2021 04:00 EDT Neut % 82.7 % (High) 06/17/2021 04:00 EDT Neut # 10.70 K/uL (High) 06/17/2021 04:00 EDT Lymph % 6.8 % (Low) 06/17/2021 04:00 EDT Lymph # 0.88 x10(3)/uL (Low) 06/17/2021 04:00 EDT [place] % 4.3 % 06/17/2021 04:00 EDT [place] # 0.55 K/uL 06/17/2021 04:00 EDT Eos % 3.8 % 06/17/2021 04:00 EDT Eos # 0.49 x10(3)/uL 06/17/2021 04:00 EDT Baso % 0.2 % 06/17/2021 04:00 EDT Baso # 0.02 x10(3)/uL 06/17/2021 04:00 EDT nRBC 0.250 (High) 06/17/2021 04:00 EDT Slide Review No 06/17/2021 04:00 EDT IG# 0.28 x10(3)/uL (High) 06/17/2021 04:00 EDT IG% 2.20 % (High) 06/17/2021 04:00 EDT D Dimer Quant 2.59 mg/L FEU (High) 06/17/2021 04:00 EDT Fibrinogen Level 246 mg/dL 06/17/2021 04:00 EDT Procalcitonin <0.25 ng/mL 06/17/2021 04:00 EDT Ferritin Level 1156.6 ng/mL (High) 06/17/2021 04:00 EDT Electronically signed by Keven, Julian Conversion Electrical Maintenance Technician Cerner at 12/18/2022 9:11 AM CDT documented in this encounter Plan of Treatment Not on file documented as of this encounter Visit Diagnoses Not on filedocumented in this encounter
--- OUTSIDE RECORDS SUMMARY | 2025-03-08 13:16 | XMS_ITS | Encounter Summary ---
Author Organization [employer] ([place], [place], [place], [place]) Address [address] [place] [address] Care Team Providers Care Executive Director Of Marketing Name Role Phone Unavailable Primary Care Provider Unavailabl e Encounter Details Date Type Department Care Team (Late st Contact Info) Description 06/09/2021 Transcribed Document [facility] [place] Family Medicine [address] [place] [address] ProviderTg MD [address] [place] [address] Social History Tobacco Use Types Packs/Day Years Used Date Smoking Tobacco: Never Assessed Comments Unknown Sex and Gender Information Value Date Recorded Sex Assigned at Not on file Legal Sex Female 2:39 PM CDT Gender Identity Not on file Sexual Orientation Not on file documented as of this encounter Miscellaneous Notes * Cerner Conversion Note - Tg Jones MD - 06/09/2021 3:32 PM CDT Patient: SUDHA TIMMONS Age: 75 [...] is unable to tell me the dates PAST MEDICAL HISTORY Non-Hodgkin's lymphoma- finished therapy [...] Oral, BID Lopressor: 5 mg, IV Push, Q6H, PRN: Tachycardia Lovenox: 115 mg, SubCutaneous, [id number] Mucinex: 1,200 mg, Oral, BID Zofran: 4 [...] Oral, 1-Time remdesivir: 250 mL/Hr, IV Piggyback, [id number] Documented Medications Documented Aspirin Low Dose 81 [...] 24 hrs) Last Charted Minimum Maximum Temp 97.9 (JUN 09 14:00) 97.9 (JUN 09 14:00) 98.2 (JUN 08 20:57) Apical HR H 122 (JUN 09 12:18) H 122 (JUN 09 10:36) H 130 (JUN 09 04:28) Mon HR 115 (JUN 09 14:39) 101 (JUN 09 11:03) 133 (JUN 09 09:02) Resp Rate 18 (JUN 09 14:00) 16 (JUN 09 09:49) 18 (JUN 08 20:57) SBP 111 (JUN 09 14:39) 111 (JUN 09 14:39) H 152 (JUN 08 17:30) DBP 80 (JUN 09 14:39) 74 (JUN 09 09:02) H 126 (JUN 08 17:30) MAP 89 (JUN 09 14:39) 82 (JUN 09 09:02) 135 (JUN 08 17:30) SpO2 95 (JUN 09 14:39) L 90 (JUN 09 11:03) 100 (JUN 08 20:13) General: No acute [...] HB L 11.0 (JUN 09) L 9.9 (JUN 08) L 10.4 (JUN 07) HCT 34.2 (JUN 09) L 30.3 (JUN 08) L 32.4 (JUN 07) Plt 276 (JUN 09) 220 (JUN 08) 207 (MAY 09) Na H 149 (JUN 09) H 147 (JUN 08) 142 (MAY 09) K 3.8 (JUN 09) 3.6 (JUN 08) L 3.2 (JUN 07) Cl H 120 (MAY 11) H 120 (MAY 10) 111 (MAY 09) CO2 22 (JUN 09) 21 (JUN 08) 22 (JUN 07) BUN 18 (JUN 09) 13 (MAY 10) 14 (MAY 09) Cr 1.00 (MAY 11) 0.60 (MAY 10) 0.80 (MAY 09) Glu R H 115 (MAY 11) 106 (MAY 10) H 117 (MAY 09) Ca 9.3 (JUN 09) 8.9 (MAY 10) 8.8 (MAY 09) Lactic 1.0 (JUN 07) PT 11.4 (MAY 10) 11.4 (OCT 09) 11.4 (OCT 09) INR 1.1 (MAY 10) 1.1 (MAY 09) 1.1 (MAY 09) PTT 23.2 (JUN 07) AST H 210 (MAY 11) H 420 (MAY 10) H 347 (OCT 09) ALT H 143 (JUN 09) H 181 [...] Acute respiratory failure -- Pulmonary emboli -- Ecoli uti -- Non Hodgkins Lymphoma -- Bipolar RECOMMENDATIONS -- Agree with remdesivir and dexamethasone -- Actemra 8mg/kg x 1 given the rapid progression of her respiratory failure -- IL-6 -- Cd4 count -- change ceftriaxone to cefazolin for it's renal excretion -- strongyloides ab Reviwed situation at length with son including her high risk of mechanical ventilation. We discussed Actemra, it's potential risks and EUA status He wished to proceed, saying that he wanted to do everything he could do to avoid the ventilator. He did not know if she had a living will but he will discuss with his sister. -- Low threshold for covering for opportunistic pathogens -- Hypertension documented in this encounter Plan of Treatment Not on file documented as of this encounter Visit Diagnoses Not on filedocumented in this encounter
--- OUTSIDE RECORDS SUMMARY | 2025-03-08 13:16 | XMS_ITS | Encounter Summary ---
Author Organization [employer] ([place], [place], [place], [place]) Address [address] [place] [address] Care Team Providers Care Yarder Engineer Name Role Phone Unavailable Primary Care Provider Unavailabl e Encounter Details Date Type Department Care Team (Late st Contact Info) Description 06/12/2021 Transcribed Document [facility] [place] Family Medicine [address] [place] [address] ProviderTg MD [address] [place] [address] Social History Tobacco Use [...] Note - Tg Jones MD - 06/12/2021 6:59 AM CDT Rapid Response Team Documentation Entered On: 06/12/2021 7:19 EDT Performed On: 06/12/2021 6:59 EDT by HOWIE KILLIAN RN Rapid Response Event Time Rapid Response Team Called : 06/12/2021 6:59 EDT Rapid Response Team Event End Time : 06/12/2021 7:01 EDT Rapid Response Event Intiated By : Hospital Staff Rapid Response Team Initiation Reason : Positive SIRS screen Rapid Response Event Location Type : Other: 583 Rapid Response Team Initiation Reason Details : severe sepsis alert triggered at 0640 due to HR 121, Creatinine 2.0, and WBC 13.4 Rapid Response Admission Diagnosis : Altered mental [...] Full Code Rapid Response Team Recommendation/Response : HR 121. Refused last night's coreg. Has prn IV metoprolol. Admitted for uti and covid. Continue to monitor vitals. Use meds as ordered. Contact CELLOPHANER/MD as needed. Patient Condition at End of Event : No S/S of Acute Distress Patient Disposition Post Event : No change in location/level of care Rapid Response Yarder Engineer #1 : HOWIE KILLIAN V, RN HOWIE KILLIAN V RN - 06/12/2021 7:13 EDT documented in this encounter Plan of Treatment Not on file documented as of this encounter Visit Diagnoses Not on filedocumented in this encounter
--- OUTSIDE RECORDS SUMMARY | 2025-03-08 13:16 | XMS_ITS | Encounter Summary ---
Author Organization [employer] ([place], [place], [place], [place]) Address [address] [place] [address] Care Team Providers Care Automated Equipment Engineer Technician Name Role Phone Unavailable Primary Care Provider Unavailabl e Encounter Details Date Type Department Care Team (Late st Contact Info) Description 06/11/2021 Transcribed Document [facility] [place] Family Medicine [facility] [place] [address] ProviderTg MD [address] [place] [address] Social History Tobacco Use Types Packs/Day Years Used Date Smoking Tobacco: Never Assessed Comments Unknown Sex and Gender Information Value Date Recorded Sex Assigned at Not on file Legal Sex Female 2:39 PM CDT Gender Identity Not on file Sexual Orientation Not on file documented as of this encounter Miscellaneous Notes * Cerner Conversion Note - Tg Jones MD - 06/11/2021 11:14 AM CDT DATE OF CONSULTATION: 06/11/2021 REASON FOR CONSULTATION: Acute kidney injury. CHIEF COMPLAINT: Brought in for evaluation of generalized weakness and easy fatigability. HISTORY OF PRESENT ILLNESS: The patient is [...] had a COVID. Mother , cause unknown. PHYSICAL EXAMINATION: VITAL SIGNS: Temperature 36.3, respiratory rate is 16, heart rate is 113, blood pressure 158/115. GENERAL APPEARANCE: This is an elderly female, [...] patient is awake, communicating. No focal deficits. DIAGNOSTIC STUDIES: LABORATORY RESULTS: Sodium is 148; potassium is 3.8; chloride 119; bicarb is 20; anion gap is 13; glucose 100; BUN is 49; creatinine is 2.0, initially 1.0, and then increased to 1.5; GFR is 24; calcium is 9.2; total protein is 5.2; albumin 2.1; globulin 3.1; total bilirubin is 0.4; alkaline phosphatase is 80; AST is 127; ALT 67; magnesium is 1.8; phosphorus is 3.5. Hemoglobin A1c is 5.6. C-reactive protein is 6.8. Lactate dehydrogenase is 875. Folate level is 19.6. Vitamin B12 is 3683. CK is 101,520. Troponin is 2.0. Hemoglobin is 10.7, hematocrit is 32.8. Urinalysis shows leukocyte esterase is large, nitrite is positive, protein 100, blood numerous, wbc's too numerous to count, and bacteria present. Ferritin level is 6051. COVID-19 was positive. IMAGING STUDIES: The patient had a CT scan of the head done on presentation. There is no mass effect or midline defect. The ventricles are symmetric in size and configuration. There is no hydrocephalus. There is no extra-axial fluid collection. There is no intraventricular or intraparenchymal hemorrhage. The posterior fossa has a normal CT appearance. No acute soft tissue abnormality is identified. No acute osseous abnormality is seen. No acute intracranial abnormality. Consider MRI if symptomatology persists. The patient had an echocardiogram done, moderate left ventricular hypertrophy, akinetic apex, and normal basal segment, visually estimated ejection fraction of 35% plus or minus 5. No hemodynamically significant valvular disease. The patient had a chest x-ray done. The heart is stable in size. The lung gilman demonstrate no significant change in patchy bilateral opacity. There is no pneumothorax. The support devices are in good position. The patient had abdominal ultrasound done, stable. The gallbladder is normal. Common bile duct is normal. The visualized pancreas is normal. There is a stable mild right hydronephrosis and a small right renal cyst. PROVISIONAL DIAGNOSES: 1. Nonoliguric acute kidney injury secondary to acute tubular necrosis/renal azotemia in the setting of sepsis, urinary tract infection, and COVID pneumonia. The patient came in with a creatinine of 1.0, increased to 1.5, now 2.0. Urinalysis shows possible urinary tract infection. The patient had abdominal ultrasound done. No dedicated renal sonogram. Abdominal ultrasound shows there are stable mild right hydronephrosis and a small right renal cyst. We will start the patient on gentle hydration because of the corresponding increase in BUN and creatinine with evidence of dehydration and hypernatremia. The patient possibly has fluid deficit. Sodium was 149, increased to 150, and today 140. Renally dose medications as appropriate. Avoid NSAID, dehydration, nephrotoxic agent. We will get dedicated renal ultrasound. Renal ultrasound reveals some stable hydronephrosis with a cyst. This is possibly chronic sepsis secondary to pneumonia, transaminitis, hyperalbuminemia. Had a right upper quadrant sonogram done, stable right mild hydronephrosis of uncertain etiology. 2. History of non-Hodgkin's lymphoma. 3. Bipolar disorder, dementia. The patient is on Decadron. We will consider holding back on remdesivir if there is progressive renal deterioration. Thanks for getting [facility] involved in the management of this patient. We will continue to follow up with you closely, should in case there is any need for change in plan or therapy. /[id number] MD MICHAEL Castillo/ROSA / MICHAEL / MODL /[id number] Electronically signed by Keven, [facility] Conversion Analytics Senior Manager Cerner at 12/18/2022 9:16 AM CDT documented in this encounter Plan of Treatment Not on file documented as of this encounter Visit Diagnoses Not on filedocumented in this encounter
--- OUTSIDE RECORDS SUMMARY | 2025-03-08 13:16 | XMS_ITS | Encounter Summary ---
Author Organization [employer] ([place], [place], [place], [place]) Address [address] [place] [address] Care Team Providers Care Senior Site Manager Name Role Phone Unavailable Primary Care Provider Unavailabl e Encounter Details Date Type Department Care Team (Late st Contact Info) Description 06/08/2021 Transcribed Document [facility] [place] Family Medicine [address] [place] [address] ProviderTg MD [address] [place] [address] Social History Tobacco Use Types Packs/Day Years Used Date Smoking Tobacco: Never Assessed Comments Unknown Sex and Gender Information Value Date Recorded Sex Assigned at Not on file Legal Sex Female 2:39 PM CDT Gender Identity Not on file Sexual Orientation Not on file documented as of this encounter Miscellaneous Notes * Cerner Conversion Note - Tg ProviderMD - 06/08/2021 1:19 AM CDT Meds to Bed Enrollment Entered On: 06/09/2021 10:28 EDT Performed On: 06/08/2021 1:19 EDT by Adalberto Cameron Cigarette Paper Tester Cert Lead Meds to Bed Enrollment Patient Enrollment Decision: : Yes/enroll in meds to bed program Adalberto Cameron Cigarette Paper Tester Cert Lead - 06/09/2021 10:28 EDT documented in this encounter Plan of Treatment Not on file documented as of this encounter Visit Diagnoses Not on filedocumented in this encounter
--- OUTSIDE RECORDS SUMMARY | 2025-03-08 13:16 | XMS_ITS | Encounter Summary ---
Author Organization [employer] ([place], [place], [place], [place]) Address [address] [place] [address] Care Team Providers Care Electric Relay Tester Name Role Phone Unavailable Primary Care Provider Unavailabl e Encounter Details Date Type Department Care Team (Late st Contact Info) Description 06/11/2021 Transcribed Document [facility] [place] [address] [place] [address] ProviderTg MD [address] [place] [address] Social History Tobacco Use Types Packs/Day Years Used Date Smoking Tobacco: Never Assessed Comments Unknown Sex and Gender Information Value Date Recorded Sex Assigned at Not on file Legal Sex Female 2:39 PM CDT Gender Identity Not on file Sexual Orientation Not on file documented as of this encounter Miscellaneous Notes * Cerner Conversion Note - Tg Jones MD - 06/11/2021 10:27 AM CDT Rapid Response Team Documentation Entered On: 06/11/2021 10:29 EDT Performed On: 06/11/2021 10:27 EDT by CHANDU LUCAS RN Rapid Response Event Rapid Response Event Location Type : Other: 5B Rapid Response Team Initiation Reason Details : 583 Rapid Response Admission Diagnosis : Altered mental [...] Drug Rapid Response Recent Vital Signs : 06/11/2021 08:48 Systolic Blood Pressure 158 06/11/2021 08:48 Diastolic Blood Pressure 115 06/11/2021 08:48 Heart Rate Monitored 113 06/11/2021 05:15 Heart Rate, Apical 125 06/11/2021 08:48 Respiratory Rate 16 06/11/2021 09:00 Temperature, Fahrenheit 97.4 06/11/2021 08:48 Oxygen Saturation 92 Rapid Response Recent Lab Results : 06/11/2021 03:41 Sodium Level HI 148 (136-146) 06/11/2021 03:41 Potassium Level 3.8 (3.5-5.1) 06/11/2021 02:45 Calcium Ionized 1.17 (1.12-1.32) 06/11/2021 03:41 Calcium Level 9.2 (8.4-10.1) 06/11/2021 03:41 Magnesium Level 1.8 (1.5-2.4) 06/07/2021 11:25 eAVG Glucose NA 114 06/11/2021 10:23 Glucose POC2 108 (70-110) 06/11/2021 03:41 Chloride Level HI 119 (102-112) 06/11/2021 03:41 Carbon Dioxide Level LOW 20 (21-32) 06/11/2021 03:41 Blood Urea Nitrogen HI 49 (7-22) 06/11/2021 03:41 Creatinine Level HI 2.00 (0.55-1.02) 06/08/2021 04:00 PT 11.4 (9.2-12.0) 06/08/2021 04:00 INR 1.1 (0.9-1.2) 06/07/2021 11:25 PTT 23.2 (22.0-33.0) 06/07/2021 11:25 Hgb A1C NA 5.6 06/11/2021 02:45 Hgb LOW 10.7 (11.2-15.7) 06/11/2021 02:45 Hct LOW 32.8 (34.1-44.9) 06/11/2021 02:45 RBC LOW 3.20 (3.93-5.22) 06/11/2021 02:45 WBC 10.0 (4.5-10.5) 06/11/2021 02:45 Platelet Count 257 (163-369) 06/07/2021 11:25 Lactic Acid Level 1.0 (0.4-2.0) 06/10/2021 06:25 Troponin I Ultra CRIT 2.020 (0.015-0.045) 06/11/2021 07:30 pH Art HI 7.50 [...] Mass Index: 45.8 kg/m2 Critical (06/07/21 10:56:00) Rapid Response Team Recommendation/Response : MEWS >3, follow up MEWS this morning was 3. RN noted that the patient is confused and not taking anything PO at this time, will receive IV medications for heart rate. Reminded RN and charge to do MEWS q4h. Patient Condition at End of Event : No S/S of Acute Distress Patient Disposition Post Event : No change in location/level of care Rapid Response Electric Relay Tester #1 : CHANDU LUCAS, RN CHANDU LUCAS, RN - 06/11/2021 10:27 EDT Electronically signed by [facility] Conversion Energy Technician Cerner at 12/18/2022 9:17 AM CDT documented in this encounter Plan of Treatment Not on file documented as of this encounter Visit Diagnoses Not on filedocumented in this encounter
--- OUTSIDE RECORDS SUMMARY | 2025-03-08 13:16 | XMS_ITS | Encounter Summary ---
Author Organization [employer] ([place], [place], [place], [place]) Address [address] [place] [address] Care Team Providers Care Audiovisual Lead Technician Name Role Phone Unavailable Primary Care Provider Unavailabl e Encounter Details Date Type Department Care Team (Late st Contact Info) Description 06/17/2021 Transcribed Document [facility] [place] [address] [place] [address] ProviderTg MD [address] [place] [address] Social History Tobacco Use Types [...] Tg ProviderMD - 06/17/2021 5:00 AM CDT Height and Weight, Routine Entered On: 06/17/2021 6:36 EDT Performed On: 06/17/2021 5:00 EDT by Ran Chew RN-PATIENT CARE BEDSIDE NON-EXEMPT Height and Weight, Routine Routine Weight Source : Bed scale Routine Weight Entry Format : Metric Routine Weight, Kilograms : 113 kg(Converted to: 249 lb 2 oz) Routine Weight, Grams Pediatric : 600 Gram Routine Weight Calculation : 113.6 kg Height Source : Stated Height Entry Format : [place] Height, Feet : 5 ft Height, Inches : 2 Inch Clinical Height : 157.48 cm Body Surface Area (BSA), Routine : 2.1 m2 Body Mass Index (BMI), Routine : 45.81 kg/m2 Ran Chew RN-PATIENT CARE BEDSIDE NON-EXEMPT - 06/17/2021 6:36 EDT documented in this encounter Plan of Treatment Not on file documented as of this encounter Visit Diagnoses Not on filedocumented in this encounter
--- OUTSIDE RECORDS SUMMARY | 2025-03-08 13:16 | XMS_ITS | Encounter Summary ---
Author Organization [employer] ([place], [place], [place], [place]) Address [address] [place] [address] Care Team Providers Care Model And Dye Person Name Role Phone Unavailable Primary Care Provider Unavailabl e Encounter Details Date Type Department Care Team (Late st Contact Info) Description 06/12/2021 Transcribed Document [facility] [address] [place] [address] ProviderTg MD [address] [place] [address] Social History Tobacco Use Types Packs/Day Years Used Date Smoking Tobacco: Never Assessed Comments Unknown Sex and Gender Information Value Date Recorded Sex Assigned at Not on file Legal Sex Female 2:39 PM CDT Gender Identity Not on file Sexual Orientation Not on file documented as of this encounter Miscellaneous Notes * Cerner Conversion Note - Tg ProviderMD - 06/12/2021 5:00 AM CDT Chart Check - Review Order Profile Entered On: 06/12/2021 4:49 EDT Performed On: 06/12/2021 5:00 EDT by Magda Dawson Rn Chart Check Powerplans Initiated/Discontinued as Appropriate : Yes All Active Orders Reviewed : Yes Magda Dawson Rn - 06/12/2021 4:49 EDT documented in this encounter Plan of Treatment Not on file documented as of this encounter Visit Diagnoses Not on filedocumented in this encounter
--- OUTSIDE RECORDS SUMMARY | 2025-03-08 13:16 | XMS_ITS | Encounter Summary ---
Author Organization [employer] ([place], [place], [place], [place]) Address [address] [place] [address] Care Team Providers Care Process Checker Name Role Phone Unavailable Primary Care Provider Unavailabl e Encounter Details Date Type Department Care Team (Late st Contact Info) Description 06/18/2021 Transcribed Document [facility] [place] [address] [place] [address] ProviderTg MD [address] [place] [address] Social History Tobacco Use Types Packs/Day Years Used Date Smoking Tobacco: Never Assessed Comments Unknown Sex and Gender Information Value Date Recorded Sex Assigned at Not on file Legal Sex Female 2:39 PM CDT Gender Identity Not on file Sexual Orientation Not on file documented as of this encounter Miscellaneous Notes * Cerner Conversion Note - Tg ProviderMD - 06/18/2021 5:00 PM CDT Chart Check - Review Order Profile Entered On: 06/18/2021 18:18 EDT Performed On: 06/18/2021 17:00 EDT by Radha Nunez RN-PATIENT CARE BEDSIDE NON-EXEMPT Chart Check Powerplans Initiated/Discontinued as Appropriate : Yes All Active Orders Reviewed : Yes Radha Nunez RN-PATIENT CARE BEDSIDE NON-EXEMPT - 06/18/2021 18:18 EDT Electronically signed by Julian Baca Conversion Remote Control Mirror Installer Cerner at 12/18/2022 9:06 AM CDT documented in this encounter Plan of Treatment Not on file documented as of this encounter Visit Diagnoses Not on filedocumented in this encounter
--- OUTSIDE RECORDS SUMMARY | 2025-03-08 13:16 | XMS_ITS | Encounter Summary ---
Author Organization [employer] ([place], [place], [place], [place]) Address [address] [place] [address] Care Team Providers Care Portfolio Architect Name Role Phone Unavailable Primary Care Provider Unavailabl e Encounter Details Date Type Department Care Team (Late st Contact Info) Description 06/18/2021 Transcribed Document [facility] [address] [place] [address] Margo Alvarez MD [address] [place] [address] Social History Tobacco Use Types Packs/Day Years Used Date Smoking Tobacco: Never Assessed Comments Unknown Sex and Gender Information Value Date Recorded Sex Assigned at Not on file Legal Sex Female 2:39 PM CDT Gender Identity Not on file Sexual Orientation Not on file documented as of this encounter Miscellaneous Notes * Cerner Conversion Note - Margo Alvarez MD - 06/18/2021 9:51 AM EDT Patient: SUDHA SOLORZANO Age: 75 years Sex: Female : 1945 Associated Diagnoses: None Author: MARGO ALVAREZ MD-INT Basic Information Date of encounter 06/18/21 Patient is awake and more alert Denies pain Followed simple commands Tolerating her tube feeds. Physical Examination VS/Measurements Vitals Signs (last 24 hrs) Last Charted Minimum Maximum Temp 98.1 (JUN 18 05:00) 97.7 (JUN 17 20:36) 98.6 (JUN 17 12:00) Mon HR 103 (JUN 18 05:00) 100 (JUN 18 01:00) 109 (JUN 17 20:36) Resp Rate 20 (JUN 18 05:00) 20 (JUN 17 12:00) 20 (JUN 17 12:00) SBP 138 (JUN 18 05:00) 125 (JUN 17 17:33) H 148 (JUN 17 12:00) DBP 87 (JUN 18 05:00) 80 (JUN 17 17:33) H 94 (JUN 17 12:00) MAP 99 (JUN 18 05:) 89 (JUN 17:33) 113 (JUN 18 01:00) SpO2 96 (JUN 18 05:) L 93 (JUN 17 12:00) 97 (JUN 17:33) General: No acute distress, on HF, alert [...] Musculoskeletal: No tenderness, No swelling. Integumentary: Warm, [place], Moist. Neurologic: Alert, not following commands, Not oriented. Psychiatric: cannot check. Review / Management Labs reviewed. Impression and Plan Acute hypoxemic respiratory failure secondary to covid and concomitant PE -Vaccinated with Pfizer per record review. -Continuous oxygen monitoring, uptitrated on optifl post remdesivir, s/p actemra 06/09 and now on highflow but being tapered. On dexa. Inflammatory markers trending down. Acute metabolic encephalopathy with likely chronic underlying memory problems and ? dementia Patient continues to remain poorly responsive despite progress withher oxygen requirements now CT head negative and had normal ammonia level. Off lithium (reportedly had recent problems as outpt and advised to stop lithium as per discussion with her son) Pending MRI brain. Clinically more alert and follows simple commands though not communicative. Sepsis due to UTI and COVID-19 pneumonia, [...] strain -Continue Therapeutic Lovenox and anticipate transtion soon to po eliquis. Acute kidney injury Likely ATN/MYESHA and meds [...] two living children son Shawn daughter Harley [phone]. Dysphagia Placed Corpak for Tube feeding and Meds due to her mentation Currently more alert and will have speech evaluation. DISPOSITSION : Uncertain at this time Patient admitted with covid and acute respiratory failure worsening . However with altered mentation and poor responsivenss and currently with corpak and tube feeds but with some progress in her mentation today. Speech to evaluate swallowing. MRI pending. Start PT as tolerated if doing better. Discussed with son Shawn Solorzano over the phone on 06/16. He indicates patient was able to perform her ADL though would get confused at night but was mobile in the home. Discussed with nursing and time spent with above 30 minutes documented in this encounter Plan of Treatment Not on file documented as of this encounter Visit Diagnoses Not on filedocumented in this encounter
--- OUTSIDE RECORDS SUMMARY | 2025-03-08 13:16 | XMS_ITS | Encounter Summary ---
Author Organization [employer] ([place], [place], [place], [place]) Address [address] [place] [address] Care Team Providers Care Loader Technician Name Role Phone Unavailable Primary Care Provider Unavailabl e Encounter Details Date Type Department Care Team (Late st Contact Info) Description 06/08/2021 Transcribed Document [facility] [place] Family Medicine [address] [place] [address] ProviderTg MD [address] [place], [place] [id number] Social History Tobacco Use Types Packs/Day Years Used Date Smoking Tobacco: Never Assessed Comments Unknown Sex and Gender Information Value Date Recorded Sex Assigned at Not on file Legal Sex Female 2:39 PM CDT Gender Identity Not on file Sexual Orientation Not on file documented as of this encounter Miscellaneous Notes * Cerner Conversion Note - Historical ProviderMD - 06/08/2021 9:45 AM CDT UM Authorization Entered On: 06/08/2021 9:45 EDT Performed On: 06/08/2021 9:45 EDT by Elizabeth Krause Rn-Utilization Review Primary Insurance Authorization Authorization and Policy Numbers : Insurance 1 Health Plan: MEDICARE Policy Number: [id number] Authorization Number: Insurance 2 Health Plan: [employer] [facility] Policy Number: [id number] Authorization Number: Insurance Primary Name : MEDICARE Authorized Service Begin Date-Primary : 06/07/2021 EDT Historical Authorization Comments-Primary : No Authorization Comments Found Elizabeth Krause Rn-Utilization Review - 06/08/2021 9:45 EDT documented in this encounter Plan of Treatment Not on file documented as of this encounter Visit Diagnoses Not on filedocumented in this encounter
--- OUTSIDE RECORDS SUMMARY | 2025-03-08 13:16 | XMS_ITS | Encounter Summary ---
Author Organization [email or web address] ([place], [place], [place], [place]) Address [address] [place] [address] Care Team Providers Care Fan Balancer Name Role Phone Unavailable Primary Care Provider Unavailabl e Encounter Details Date Type Department Care Team (Late st Contact Info) Description 06/11/2021 Transcribed Document [facility] [place] [address] [place] [address] ProviderTg MD [address] [place] [address] Social History Tobacco Use Types Packs/Day Years Used Date Smoking Tobacco: Never Assessed Comments Unknown Sex and Gender Information Value Date Recorded Sex Assigned at Not on file Legal Sex Female 2:39 PM CDT Gender Identity Not on file Sexual Orientation Not on file documented as of this encounter Miscellaneous Notes * Cerner Conversion Note - Tg ProviderMD - 06/11/2021 11:40 AM CDT Patient: SUDHA TIMMONS Age: 75 Years Sex: Female : 1945 date of service 06/11/2021. Subjective Patient seen and examined Patient alert fidgeting in the bed, yells [...] living children son Shawn daughter Harley . Jose Enrique is critically ill at risk for Deterioration and intubation DISPO: Resp status the same as yesterday on optiflow FiO2 60%, with continued increased confusion and fidgeting in the bed. Not medically ready, ID and Pulm consulted making med adjustments. HIGH RISK FOR INTUBATION. Expect patient will need SNF at discharge since she lives with 98 year old father. . Time spent: 37 minutes Critical care time Medications aspirin, 81 mg= 1 Tab, Oral, [...] 115 mg= 0.77 mL, 1 mg/kg, SubCutaneous, [id number] Mucinex, 1200 mg= 2 Tab, Oral, BID pantoprazole, 40 mg= 1 Tab, Oral, Daily remdesivir rifAXIMin, 550 mg= 1 Tab, Oral, BID Zofran, 4 mg= 2 mL, IV Push, Q4H, PRN Diagnostic Results Radiology Results (Last 48 hours) [id number] -- 06/07/2021 12:36 CTA Chest (06/09/2021 10:19) [...] # 0.79 x10(3)/uL (Low) 06/10/2021 06:25 EDT Greer % 4.2 % 06/10/2021 06:25 EDT Greer # 0.29 K/uL 06/10/2021 06:25 EDT Eos [...] 0.44 ng/mL 06/10/2021 06:25 EDT Ferritin Level 05177.2 ng/mL (High) 06/10/2021 06:25 EDT documented in this encounter Plan of Treatment Not on file documented as of this encounter Visit Diagnoses Not on filedocumented in this encounter
--- OUTSIDE RECORDS SUMMARY | 2025-03-08 13:16 | XMS_ITS | Encounter Summary ---
Author Organization [employer] ([place], [place], [place], [place]) Address [address] [place] [address] Care Team Providers Care Organic Preparation Analyst Name Role Phone Unavailable Primary Care Provider Unavailabl e Encounter Details Date Type Department Care Team (Late st Contact Info) Description 06/12/2021 Transcribed Document [facility] Family Medicine [address] [place] [address] ProviderTg MD [address] [place] [address] Social History Tobacco Use Types Packs/Day Years Used Date Smoking Tobacco: Never Assessed Comments Unknown Sex and Gender Information Value Date Recorded Sex Assigned at Not on file Legal Sex Female 2:39 PM CDT Gender Identity Not on file Sexual Orientation Not on file documented as of this encounter Miscellaneous Notes * Cerner Conversion Note - Tg Jones MD - 06/12/2021 6:20 AM CDT Sepsis Screening Tool Entered On: 06/12/2021 6:39 EDT Performed On: 06/12/2021 6:20 EDT by Magda Dawson, Rn Provider Notification Provider Notified of Concerns/Results : Critical value result, SIRS/Sepsis Alert Critical Result Details : 0.845 troponin Critical Result Call Received From : lab Critical Result Read Back and Verified : Yes Provider Response : No new orders Provider Notified Name : LAURE COVINGTON DO-INT Provider Notified Time : 06/12/2021 6:37 EDT Results to Provider Comment : sepsis alert due to WBC, HR & NOTIFIED MD OF CRITICAL TROP Magda Dawson, Rn - 06/12/2021 6:35 EDT Sepsis Screening Tool SIRS Screening Vital Signs/Labs : 06/12/2021 05:54 Clinical Temperature, C 36.3 06/12/2021 06:16 WBC 13.4 (4.5-10.5) 06/12/2021 05:54 Heart Rate Monitored 121 (60-100) 06/12/2021 05:54 Respiratory Rate 20 (14-20) Two or More Signs and Symptoms SIRS Indicators : Yes (Two or more signs and symptoms SIRS Indicators) Organ Dysfunction Vital Signs/Labs : 06/12/2021 06:38 Creatinine Level 2.00 (0.55-1.02) 06/12/2021 06:16 Platelet Count 275 (163-369) 06/12/2021 05:54 Systolic Blood Pressure 137 (90-140) 06/12/2021 05:54 Mean Arterial Pressure (MAP)-BMDI 109 Magda Dawson Rn - 06/12/2021 6:35 EDT Electronically signed by Keven, [facility] Conversion Snow Removal Supervisor Seng at 12/18/2022 9:08 AM CDT documented in this encounter Plan of Treatment Not on file documented as of this encounter Visit Diagnoses Not on filedocumented in this encounter
--- OUTSIDE RECORDS SUMMARY | 2025-03-08 13:16 | XMS_ITS | Encounter Summary ---
Author Organization [employer] ([place], [place], [place], [place]) Address [address] [place] [address] Care Team Providers Care Instrument Operator Name Role Phone Unavailable Primary Care Provider Unavailabl e Encounter Details Date Type Department Care Team (Late st Contact Info) Description 06/17/2021 Transcribed Document [facility] [place] [address] [place] [address] ProviderTg MD [address] [place] [address] Social History Tobacco Use Types Packs/Day Years Used Date Smoking Tobacco: Never Assessed Comments Unknown Sex and Gender Information Value Date Recorded Sex Assigned at Not on file Legal Sex Female 2:39 PM CDT Gender Identity Not on file Sexual Orientation Not on file documented as of this encounter Miscellaneous Notes * Cerner Conversion Note - Tg ProviderMD - 06/17/2021 3:00 AM CDT Nutrition Assessment Entered On: 06/17/2021 11:37 EDT Performed On: 06/17/2021 11:37 EDT by PRABHAKAR RAND RD, LD Nutrition Assessment Nutrition Assessment Reason : Follow Up, Nutrition support PRABHAKAR RAND RD, LD - 06/17/2021 11:37 EDT Current Nutrition Regimen Comment : 06/17: Spoke with pt, reports pt toelrating TF well, no appropriate for po diet, has not brought any trays into pt room. Pt not able to follow commands and makes no attempts to swallow water or medications. Spoek with RN about cancelling diet, reassessing if pt's mental status improves. 06/13: TF f/u. Pt started on TF yesterday d/t minimal po intake. Unable to reach RN. Dx: Sepsis d/t UTI and COVID+ PNA, acute resp failure, transaminitis, hypertensive urgency, A/C metabolic encephalopathy, NSTEMI PMH: Non-hodgkins lymphoma, dementia, HTN, depression, bipolar, osteoarthritis Labs: Gluc 143, BUN 23, Alb 2.1, Phos 2.4 Meds: lactobacillus, steroid, pepcid, SSI, abx, B12 Skin: excoriation of buttocks, anasarca LBM: + (06/16), corpak D2 Diet: Regular + Ensure TID PO Intake: 0% of meals, RN reports pt unsafe to eat currently TF: Jevity 1.5 @ 50 ml/hr Ht: 5'2 Admit wt: 250#, no new wt (06/13), 248# (06/17) IBW: 110#/227% IBW BMI: 45.8 Adj wt: 145#/66 kg Estimated needs: 0012-1000 kcals (MSJX1.2-500) and 73+ grams protein (1.1 grams/kg/adjwt) PRABHAKAR RAND RD, LD - 06/17/2021 14:40 EDT Nutrition Diagnoses Oral or Nutrition Support Intake : Inadequate oral intake Oral or Nutr Support Intake Related To : AMS Oral or Nutr Support Intake Evidenced by : 0% meals; need for TF Oral or Nutrition Support Intake Status : Active PRABHAKAR RAND RD, LD - 06/17/2021 14:40 EDT Nutrition Interventions Enteral/Parenteral Nutrition : Continue current enteral nutrition regimen PRABHAKAR RAND RD, LD - 06/17/2021 14:45 EDT Monitoring/Evaluation Energy Intake : Total energy intake Protein Intake : Total protein Weight Status : Weight Maintanence Gastrointestinal Function : Bowel Function PRABHAKAR RAND RD, LD - 06/17/2021 14:40 EDT Nutrition Recommendations Dietitian Recommendations : 1. Continue Jevity 1.5 @ 50 ml/hr (provides 1650 kcals and 70 grams protein). FW per MD. Goal: Meet est needs 2. Make pt NPO- not appropriate for PO per RN Goal: prevent aspiration, pt unable to follow commands or make attempt to swallow 3. Monitor elytes and replace prn Goal: wnls 4. Monitor wt 1-2x weekly Goal: avoid significant unintended wt loss Nutrition risk: high PRABHAKAR RAND RD, LD - 06/17/2021 14:45 EDT documented in this encounter Plan of Treatment Not on file documented as of this encounter Visit Diagnoses Not on filedocumented in this encounter
--- OUTSIDE RECORDS SUMMARY | 2025-03-08 13:16 | XMS_ITS | Encounter Summary ---
Author Organization [employer] ([place], [place], [place], [place]) Address [address] [place] [address] Care Team Providers Care Motor Lodge Clerk Name Role Phone Unavailable Primary Care Provider Unavailabl e Encounter Details Date Type Department Care Team (Late st Contact Info) Description 06/12/2021 Transcribed Document [facility] Pulm & Critical Care Medicine [address] [place] [address] Nadiya Chambers MD [address] [place], [place] [id number] Social History Tobacco Use Types Packs/Day Years Used Date Smoking Tobacco: Never Assessed Comments Unknown Sex and Gender Information Value Date Recorded Sex Assigned at Not on file Legal Sex Female 2:39 PM CDT Gender Identity Not on file Sexual Orientation Not on file documented as of this encounter Miscellaneous Notes * Cerner Conversion Note - Nadiya Chambers MD - 06/12/2021 12:01 PM EDT Patient: SUDHA TIMMONS Age: 75 years Sex: Female : 1945 Associated Diagnoses: None Author: NADIYA CHAMBERS MD Basic Information HPI: Patient is a [...] [phone]. Patient lithium level was 0.6 Intake & Output Totals Last 24 Hours (7a-7a) Intake (15 Events) Medications (624 mL) Output (3 Events) Hamlin Catheter (1200 mL) Input Total: 624 mL Output Total: 1200 mL Balance: -576 mL Review of Systems Unable to obtain: Due to clinical condition, Due to altered mental status. Confusion however she denies any chest pain or abdominal pain Health Status Allergies: Allergic Reactions (Selected) Severity [...] Q3H, PRN: Tachycardia Lovenox: 115 mg, SubCutaneous, [id number] Mucinex: 1,200 mg, Oral, BID Protonix: 40 mg, IV Push, Daily SEROquel: 25 mg, Oral, [id number] Zofran: 4 mg, IV Push, Q4H, PRN: [...] Oral, Daily, 30 Cap, 0 Refill(s), Medications (19) Active Scheduled: (13) albuterol-ipratropium CFC free 4 g inh 2 [...] mL inj 115 mg 0.77 mL, SubCutaneous, [id number] guaiFENesin 600 mg ER tab 1,200 mg 2 Tab, Oral, BID lactobacillus acidophilus cap 1 Cap, Oral, Daily pantoprazole 40 mg inj 40 mg, IV Push, Daily QUEtiapine 25 mg tab 25 mg 1 Tab, Oral, [id number] rifaXIMIN 550 mg tab 550 mg 1 Tab, Oral, BID Continuous: (1) Dextrose 5% in Water 1,000 mL 1,000 mL, IntraVENous, 75 mL/Hr PRN: (5) hydrOXYzine hcl 25 mg [...] Medical Hip pain, right / SNOMED CT 2513623624 / Confirmed At risk for sleep apnea / IMO [id number] / Confirmed Concussion / SNOMED CT 1155465210 / Confirmed concussion with loss of memory+ Disease caused by 2019 novel coronavirus / SNOMED CT 2277675974 / Confirmed Problem added by a rule: [id number]. Fall / SNOMED CT 5724242 / Confirmed HTN (hypertension) / SNOMED CT 3047392974 / Confirmed Depression / SNOMED CT 7992779558 / Confirmed Numbness and tingling / SNOMED CT 3785457281 / Confirmed numbness and tingling right thigh area to toes Osteoarthritis / SNOMED CT 2666281113 / Confirmed Pain / SNOMED CT 31701829 / Confirmed right buttocks pain Leg pain, right / SNOMED CT 436141607 / Confirmed sleep apnea / SNOMED CT 648960524 / Confirmed Insomnia / SNOMED CT 886394933 / Confirmed Tremor / SNOMED CT 75190418 / Confirmed, Active Problems (16) At risk [...] 24 hrs) Last Charted Minimum Maximum Temp 97.3 (JUN 12 05:53) 97.3 (JUN 12 05:53) 99.0 (JUN 11 22:47) Apical HR H 125 (JUN 12 05:53) H 119 (JUN 11 13:08) H 129 (JUN 11 18:13) Mon HR 117 (JUN 12 08:45) 89 (JUN 11 22:32) 126 (JUN 11 22:47) Resp Rate 18 (JUN 12 08:45) 18 (JUN 11 18:17) 20 (JUN 11 22:32) SBP 137 (JUN 12 05:53) 115 (JUN 11 18:17) 137 (JUN 12 05:53) DBP H 97 (JUN 12 05:53) 70 (JUN 11 22:47) H 97 (JUN 12 05:53) MAP 109 (JUN 12 05:53) 82 (JUN 11 22:47) 109 (JUN 12 05:53) SpO2 96 (JUN 12 08:45) L 92 (JUN 12 05:53) 98 (JUN 11 22:32) General: Mild distress, On Optiflow , confused , Morbidly obese. Eye: Pupils are equal, round and reactive to light, Normal conjunctiva. HENT: Normocephalic, Oral mucosa is moist. Neck: Supple, Non-tender, No lymphadenopathy. Respiratory: Lungs are clear to auscultation, Breath sounds are equal. Cardiovascular: Normal rate, Normal peripheral perfusion, Mild LE edema , tachycardia . Gastrointestinal: Soft, Non-tender, Normal bowel sounds. Musculoskeletal: No deformity. Integumentary: Warm, Dry, No rash. Neurologic: Alert, confused. Psychiatric: Cooperative. Review / Management Results review: Labs (Last four charted values) WBC H 13.4 (JUN 12) 10.0 (MAY 13) 7.3 (MAY 12) 7.0 (MAY 12) HB L 11.1 (MAY 14) L 10.7 (MAY 13) L 10.8 (MAY 12) L 11.0 (MAY 11) HCT L 34.0 (MAY 14) L 32.8 (MAY 13) 34.3 (OCT 12) 34.2 (OCT 11) Plt 275 (MAY 14) 257 (MAY 13) 247 (OCT 12) 267 (MAY 12) Na 145 (MAY 14) H 148 (MAY 13) H 150 (MAY 12) H 149 (OCT 11) K 3.8 (MAY 14) 3.8 (MAY 13) 3.7 (MAY 12) 3.8 (MAY 11) Cl H 114 (MAY 14) H 119 (MAY 13) H 121 (MAY 12) H 120 (MAY 11) CO2 L [...] 13) H 135 (MAY 12) H 115 (JUN 09) Ca 8.9 (JUN 12) 9.2 (JUN 11) 8.9 (JUN 10) 9.3 (JUN 09) Lactic 1.0 (JUN 07) PT 11.4 (JUN 08) 11.4 (JUN 07) 11.4 (JUN 07) INR 1.1 (JUN 08) 1.1 (JUN 07) 1.1 (JUN 07) PTT 23.2 (JUN 07) AST H 127 (MAY 13) H 128 (MAY 12) H 210 (MAY 11) H 420 (JUN 08) ALT H 67 (MAY 13) H 98 (MAY 12) H 143 (MAY 11) H 181 (MAY 10) ALK P 80 (MAY 13) 88 (MAY 12) 101 (MAY 11) 99 (MAY 10) T Bili 0.4 (MAY 13) 0.5 (JUN 10) 0.9 (JUN 09) 0.6 (MAY 10) PTN L 5.2 (MAY 13) L 5.4 (MAY 12) L 5.9 (MAY 11) L 5.6 (MAY 10) ALB L 2.1 (MAY 13) L 2.2 (MAY 12) L 2.4 (MAY 11) L 2.3 (MAY 10) Troponin C 0.845 (JUN 12) C 2.020 (MAY 12) C 2.700 (MAY 10) C 1.220 (JUN 08) . JUN 12 05:55 145 H 114 H 58 / H 124 3.8 L 20 H 2.00 \ Radiology Results (Last 48 hours) [id number] -- 06/07/2021 12:36 CR Chest 1 Vw [...] the above final transcribed report. Chest x-ray 11/11/2020 reviewed and visualized and patient treated with opacities. Pneumothorax reviewed and visualized Blood Gases (Current Encounter/Past 24 Hours) No Blood Gas Results Found (Past 24 Hours) ECHO Impression: Moderate left ventricular hypertrophy. Akinetic apex and normal basal segments. Visually estimated ejection fraction 35% +/- 5%. No hemodynamically significant valvular heart disease. Measurements Summary: LVEDd: 4.89 cm LVESd: 3.85 cm IVSEd: 1.47 cm AO Root:2.9 cm LVPWd: 1.4 cm Microbiology 06/18 sputum culture ordered 03/07 sputum culture ordered 06/18 blood cultures negative 06/07 urine cultures E. coli Current antibiotic atovaquon , rifaximin, cefazolin Impression and Plan Pulmonary Acute hypoxemic respiratory [...] elevation ) Normal creatinine on adm Hypernatremia improving US RUQ: on Stable mild right hydronephrosis [...] but confused Endocrine Glycemic control Prophylaxis Plan Pulm and CCM Attending Note: I have performed personally face to face diagnostic evaluation of this patient, I reviewed Labs as well as Radiology data and Medications, I discussed with allied staff patient???s condition and discussed findings, I formulated above diagnoses/impression and plan . I also discussed my impression and plan for the day with patient???s nurse Patient requires a high complexity of decision making for assessment. Overall my opinion and recommendations are: Patient remained in critical condition due to severe pneumonia with acute hypoxemic respiratory failure decreased requirement of FiO2 however still on OptiFlow 50/50, acute encephalopathy with confusion, urinary tract infection was E. coli Supplemental O2 to maintain O2 saturations 90-94% discussed with RT Optiflow or NIPPV for increased work of breathing - currently optiflow 50/50 wean as above conscious proning is ideal however given pt confusion aborted Combivent inhaler Mucinex 1200mg BID IS/FV COVID order set Cardiology is following prior and now signed off pt on Coreg, asa and lisinopril ( however I stopped it due to rising renal fx) , now attending managing Worsening renal function- nephrology consulted 06/11, I will defer management for acute renal failure/hypernatremia change renal and primary team ID changed Bactrim to atovaquone ( although chart indicates pt has refused) prior US with mild hydro currently not on IVF ID consulted Abx Rocephin prior doxy Dexamethasone 10mg BID x5 days, then 10mg daily x5 days Post Remedesivir Actemra IV : given 06/10 Bactrim, stopped and pt started on atovaquone check strongyloides - remains pending Lactobacillus Monitor ammonia level if needed start rifaximin Pt was on lithium/ stopped - pt on small seroquel dosing however has not received Nutrition per primary Glycemic control per primary Prophylaxis: Protonix and Lovenox 115mg Q12H adjusted dose for worsening renal fx per pharm now to daily dosing AM labs/CXR , check CK Full Code prognosis : guarded : high risk for deterioration and need for mechanical vent Disposition telemetry Thank you valentina cct 32 mins documented in this encounter Plan of Treatment Not on file documented as of this encounter Visit Diagnoses Not on filedocumented in this encounter
--- OUTSIDE RECORDS SUMMARY | 2025-03-08 13:16 | XMS_ITS | Encounter Summary ---
Author Organization [employer] ([place], [place], [place], [place]) Address [address] [place] [address] Care Team Providers Care Basket Patcher Name Role Phone Unavailable Primary Care Provider Unavailabl e Encounter Details Date Type Department Care Team (Late st Contact Info) Description 06/12/2021 Transcribed Document [facility] [address] [place] [address] ProviderTg MD [address] [place] [address] Social History Tobacco Use Types Packs/Day Years Used Date Smoking Tobacco: Never Assessed Comments Unknown Sex and Gender Information Value Date Recorded Sex Assigned at Not on file Legal Sex Female 2:39 PM CDT Gender Identity Not on file Sexual Orientation Not on file documented as of this encounter Miscellaneous Notes * Cerner Conversion Note - Tg ProviderMD - 06/12/2021 4:01 PM CDT Clinical Dietitian Note Entered On: 06/12/2021 16:04 EDT Performed On: 06/12/2021 16:01 EDT by JACQUELYN CHERY, JANET, LD Clinical Dietitian Note Clinical Dietitian Note : (06/12) Consult received for TF assessment; pt with corpak placement. Pt has not eaten in a few days pre RN. D5W is supposed to stop after 2 L has ended per RN. Corpak is in the 3rd portion of duodenum placed in IR. Labs: Na 145, Gluc 124, BUN 58 Estimated needs: 1617-4136 kcals (MSJX1.2-500) and 73+ grams protein (1.1 grams/kg/adjwt) 1. Initiate EN via corpak: Jevity 1.5 @ 20 ml/hr, slowly AAT @ 50 ml/hr (provides 1650 kcals, 70 grams protein, 8[address] to add FW of 35 ml/hr (1676 mL total free water with TF to start after D5 is finished). MD to adjust prn. Goal: meet est needs 2. Encourage po intake. RD to continue Ensure Enlive BID. Goal: >50% meals/ONS 3. Monitor elytes and replace prn Goal: wnls 4. Monitor wt 1-2x weekly Goal: avoid significant unintended wt loss Nutrition risk: high JACQUELYN CHERY, JANET, LD - 06/12/2021 16:08 EDT documented in this encounter Plan of Treatment Not on file documented as of this encounter Visit Diagnoses Not on filedocumented in this encounter
--- OUTSIDE RECORDS SUMMARY | 2025-03-08 13:16 | XMS_ITS | Encounter Summary ---
Author Organization [employer] ([place], [place], [place], [place]) Address [address] [place] [address] Care Team Providers Care Communication Coordinator Name Role Phone Unavailable Primary Care Provider Unavailabl e Encounter Details Date Type Department Care Team (Late st Contact Info) Description 06/09/2021 Transcribed Document [facility] [address] [place] [address] ProviderTg MD [address] [place] [address] Social History Tobacco Use Types Packs/Day Years Used Date Smoking Tobacco: Never Assessed Comments Unknown Sex and Gender Information Value Date Recorded Sex Assigned at Not on file Legal Sex Female 2:39 PM CDT Gender Identity Not on file Sexual Orientation Not on file documented as of this encounter Miscellaneous Notes * Cerner Conversion Note - Historical ProviderMD - 06/09/2021 10:48 AM CDT Attempt to Treat, PT Entered On: 06/09/2021 10:49 EDT Performed On: 06/09/2021 10:48 EDT by VINH JASSO, PT Student Attempt to Treat Unable to Treat Due To : Acuity of Illness VINH JASSO, PT Student - 06/09/2021 10:48 EDT Inability to Treat Comment : Per nsg Lacey, pt underwent CT scan this morning and it took a lot out of her. Advised PT to return this afternoon. PT/OT will return this afternoon as time allows. PT has reviewed and agrees with note. RENY BLAIR PT - 06/09/2021 12:46 EDT Electronically signed by Julian Baca Conversion Body And Fender Mechanic Apprentice Cerner at 12/18/2022 9:09 AM CDT documented in this encounter Plan of Treatment Not on file documented as of this encounter Visit Diagnoses Not on filedocumented in this encounter
--- OUTSIDE RECORDS SUMMARY | 2025-03-08 13:16 | XMS_ITS | Encounter Summary ---
Author Organization [employer] ([place], [place], [place], [place]) Address [address] [place] [address] Care Team Providers Care Advanced Developer Name Role Phone Unavailable Primary Care Provider Unavailabl e Encounter Details Date Type Department Care Team (Late st Contact Info) Description 06/08/2021 Transcribed Document [facility] [place] [address] [place] [address] ProviderTg MD [address] [place] [address] Social History Tobacco Use Types Packs/Day Years Used Date Smoking Tobacco: Never Assessed Comments Unknown Sex and Gender Information Value Date Recorded Sex Assigned at Not on file Legal Sex Female 2:39 PM CDT Gender Identity Not on file Sexual Orientation Not on file documented as of this encounter Miscellaneous Notes * Cerner Conversion Note - Historical ProviderMD - 06/08/2021 7:02 AM CDT Consult Phone Call Documentation Entered On: 06/09/2021 11:06 EDT Performed On: 06/08/2021 7:02 EDT by ELYSE UGALDE, [facility] Phone Call for Consults Consult Reason : ? Physician Requested for Consult : DEBBIE LANGSTON MD-CAR Physician Covering for Consult : JOY MCPHERSON APRN BLEVINS, [place], [facility] - 06/09/2021 11:04 EDT documented in this encounter Plan of Treatment Not on file documented as of this encounter Visit Diagnoses Not on filedocumented in this encounter
--- OUTSIDE RECORDS SUMMARY | 2025-03-08 13:16 | XMS_ITS | Encounter Summary ---
Author Organization [employer] ([place], [place], [place], [place]) Address [address] [place] [address] Care Team Providers Care Powerhouse Electrician Apprentice Name Role Phone Unavailable Primary Care Provider Unavailabl e Encounter Details Date Type Department Care Team (Late st Contact Info) Description 06/09/2021 Transcribed Document [facility] [place] [address] [place] [address] ProviderTg MD [address] [place] [address] Social History Tobacco Use Types Packs/Day Years Used Date Smoking Tobacco: Never Assessed Comments Unknown Sex and Gender Information Value Date Recorded Sex Assigned at Not on file Legal Sex Female 2:39 PM CDT Gender Identity Not on file Sexual Orientation Not on file documented as of this encounter Miscellaneous Notes * Cerner Conversion Note - Tg ProviderMD - 06/09/2021 5:00 AM CDT Chart Check - Review Order Profile Entered On: 06/09/2021 4:08 EDT Performed On: 06/09/2021 5:00 EDT by Ran Chew RN-PATIENT CARE BEDSIDE NON-EXEMPT Chart Check Powerplans Initiated/Discontinued as Appropriate : Yes All Active Orders Reviewed : Yes Ran Chew RN-PATIENT CARE BEDSIDE NON-EXEMPT - 06/09/2021 4:08 EDT documented in this encounter Plan of Treatment Not on file documented as of this encounter Visit Diagnoses Not on filedocumented in this encounter
--- OUTSIDE RECORDS SUMMARY | 2025-03-08 13:16 | XMS_ITS | Encounter Summary ---
Author Organization [employer] ([place], [place], [place], [place]) Address [address] [place] [address] Care Team Providers Care Jig And Fixture Builder Apprentice Name Role Phone Unavailable Primary Care Provider Unavailabl e Encounter Details Date Type Department Care Team (Late st Contact Info) Description 06/13/2021 Transcribed Document [facility] [place] [address] [place] [address] ProviderTg MD [address] [place] [address] Social History Tobacco Use Types Packs/Day Years Used Date Smoking Tobacco: Never Assessed Comments Unknown Sex and Gender Information Value Date Recorded Sex Assigned at Not on file Legal Sex Female 2:39 PM CDT Gender Identity Not on file Sexual Orientation Not on file documented as of this encounter Miscellaneous Notes * Cerner Conversion Note - Tg ProviderMD - 06/13/2021 3:00 AM CDT Nutrition Assessment Entered On: 06/13/2021 9:57 EDT Performed On: 06/13/2021 16:16 EDT by JACQUELYN CHERY, JANET, LD Nutrition Assessment Current Nutrition Regimen Comment : 06/13: TF f/u. Pt started on TF yesterday d/t minimal po intake. Unable to reach RN. 06/10: Consult for BMI >40. 75yo F [...] Excoriation present on buttocks. (06/10/21) Referral from microelectronics technician d/t declining po intake over the past 2 days per RN. GONZALES to send supplements and monitor po intake. Dx: Sepsis d/t UTI and COVID+ PNA, acute resp failure, transaminitis, hypertensive urgency, A/C metabolic encephalopathy, NSTEMI PMH: Non-hodgkins lymphoma, dementia, HTN, depression, bipolar, osteoarthritis Labs: Gluc 143, BUN 60, crea 1.8, Alb 2.3, FSB, 141, 128 Meds: lactobacillus, lithium, abx, B12 Skin: excoriation of buttocks, anasarca LBM: + (06/12), corpak D2 Diet: Regular + Ensure TID PO Intake: minimal intake TF: Jevity 1.5 @ 50 ml/hr Ht: 5'2 Admit wt: 250#, no new wt (06/13) IBW: 110#/227% IBW BMI: 45.8 Adj wt: 145#/66 kg Estimated needs: 0004-0756 kcals (MSJX1.2-500) and 73+ grams protein (1.1 grams/kg/adjwt) JACQUELYN CHERY RD, ADRIENNE - 06/13/2021 16:14 EDT Nutrition Assessment Reason : Follow Up, Nutrition support JACQUELYN CHERY RD, ADRIENNE - 06/13/2021 9:57 EDT Nutrition Diagnoses Oral or Nutrition Support Intake : Inadequate oral intake Oral or Nutr Support Intake Related To : refusing to eat, COVID PNA Oral or Nutr Support Intake Evidenced by : poor intake; pt started on TF Oral or Nutrition Support Intake Status : Active JACQUELYN CHERY RD, ADRIENNE - 06/13/2021 16:14 EDT Nutrition Interventions Meals and Snacks : General/Healthful diet Enteral/Parenteral Nutrition : Continue current enteral nutrition regimen Nutrition Supplement Therapy : Commercial beverage JACQUELYN CHERY RD, ADRIENNE - 06/13/2021 16:14 EDT Monitoring/Evaluation Energy Intake : Total energy intake Food Intake : Amount of food Protein Intake : Total protein Weight Status : Weight Maintanence Gastrointestinal Function : Bowel Function JACQUELYN CHERY RD, ADRIENNE - 06/13/2021 16:14 EDT Nutrition Recommendations Dietitian Recommendations : 1. Continue Jevity 1.5 @ 50 ml/hr (provides 1650 kcals and 70 grams protein). FW of 35 ml/hr (1676 mL total free water with TF). MD to adjust prn. Goal: meet est needs 2. Encourage po intake. RD to continue Ensure Enlive BID. Goal: >50% meals/ONS 3. Monitor elytes and replace prn Goal: wnls 4. Monitor wt 1-2x weekly Goal: avoid significant unintended wt loss Nutrition risk: high JACQUELYN CHERY, RD, LD - 06/13/2021 16:17 EDT Electronically signed by Keven, [facility] Conversion Agricultural Education Instructor Cerner at 12/18/2022 9:07 AM CDT documented in this encounter Plan of Treatment Not on file documented as of this encounter Visit Diagnoses Not on filedocumented in this encounter
--- OUTSIDE RECORDS SUMMARY | 2025-03-08 13:16 | XMS_ITS | Encounter Summary ---
Author Organization [employer] ([place], [place], [place], [place]) Address [address] [place] [address] Care Team Providers Care High School Combination Teacher Name Role Phone Unavailable Primary Care Provider Unavailabl e Encounter Details Date Type Department Care Team (Late st Contact Info) Description 06/16/2021 Transcribed Document [facility] [place] Family Medicine [address] [place] [address] ProviderTg MD [address] [place], [place] [id number] Social History Tobacco Use Types Packs/Day Years Used Date Smoking Tobacco: Never Assessed Comments Unknown Sex and Gender Information Value Date Recorded Sex Assigned at Not on file Legal Sex Female 2:39 PM CDT Gender Identity Not on file Sexual Orientation Not on file documented as of this encounter Miscellaneous Notes * Cerner Conversion Note - Historical ProviderMD - 06/16/2021 10:26 AM CDT Attempt to Treat, OT Entered On: 06/16/2021 15:37 EDT Performed On: 06/16/2021 10:26 EDT by ROCKY VAUGHN OTR/Lachelle Attempt to Treat Unable to Treat Due To : Patient on hold Inability to Treat Comment : RN requested HOLD from therapy again due to pt acuity and decline in pts medical status. Pt has been on hold from therapy for several days. Discussed plan with RN to discontinue OT orders, will require reorder when appropriate. RN in agreement. Notification : ROCKY Laura OTR/Lachelle - 06/16/2021 15:36 EDT documented in this encounter Plan of Treatment Not on file documented as of this encounter Visit Diagnoses Not on filedocumented in this encounter
--- OUTSIDE RECORDS SUMMARY | 2025-03-08 13:16 | XMS_ITS | Encounter Summary ---
Author Organization [employer] ([place], [place], [place], [place]) Address [address] [place] [address] Care Team Providers Care Registered Dietetic Technician Name Role Phone Unavailable Primary Care Provider Unavailabl e Encounter Details Date Type Department Care Team (Late st Contact Info) Description 06/12/2021 Transcribed Document [facility] [place] Family Medicine [address] [place] [address] ProviderTg MD [address] [place] [address] Social History Tobacco Use [...] Note - Tg Jones MD - 06/12/2021 2:06 PM CDT Patient: SUDHA TIMMONS Age: 75 years Sex: Female : 1945 Associated Diagnoses: None Author: DESIRAE NOWAK MD-INT DATE OF SERVCIE: 06/12/2021 Basic Information Patient is seen and evaluated i Patient is lethargic eyes are closed She is in respiratory distress. BiPAP is on Review of Systems UNABLE TO OBTAIN SECONDARY TO CLINICAL CONDITION Health Status Allergies: Allergic Reactions (Selected) Severity [...] Q3H, PRN: Tachycardia Lovenox: 115 mg, SubCutaneous, [id number] Mucinex: 1,200 mg, Oral, BID Protonix: 40 mg, IV Push, Daily SEROquel: 25 mg, Oral, [id number] Zofran: 4 mg, IV Push, Q4H, PRN: [...] Refill(s), Medications (18) Active Scheduled: (13) albuterol-ipratropium CFC free 4 [...] mL inj 115 mg 0.77 mL, SubCutaneous, [id number] guaiFENesin 600 mg ER tab 1,200 mg 2 Tab, Oral, BID lactobacillus acidophilus cap 1 Cap, Oral, Daily pantoprazole 40 mg inj 40 mg, IV Push, Daily QUEtiapine 25 mg tab 25 mg 1 Tab, Oral, [id number] rifaXIMIN 550 mg tab 550 mg 1 Tab, Oral, BID Continuous: (0) PRN: (5) hydrOXYzine hcl 25 mg tab [...] Medical Hip pain, right / SNOMED CT 0785953296 / Confirmed At risk for sleep apnea / IMO 29017328 / Confirmed Concussion / SNOMED CT 3055659876 / Confirmed concussion with loss of memory+ Disease caused by 2019 novel coronavirus / SNOMED CT 4375341143 / Confirmed Problem added by a rule: [id number]. Fall / SNOMED CT 2955326 / Confirmed HTN (hypertension) / SNOMED CT 5789580773 / Confirmed Depression / SNOMED CT 9356438926 / Confirmed Numbness and tingling / SNOMED CT 0406169080 / Confirmed numbness and tingling right thigh area to toes Osteoarthritis / SNOMED CT 4663292903 / Confirmed Pain / SNOMED CT 76504881 / Confirmed right buttocks pain Leg pain, right / SNOMED CT 888422534 / Confirmed sleep apnea / SNOMED CT 027792353 / Confirmed Insomnia / SNOMED CT 103091198 / Confirmed Tremor / SNOMED CT 99582339 / Confirmed, Active Problems (16) At risk for sleep apnea Bipolar I disorder, current or most recent episode depressed, with psychotic features with catatonia Concussion Depression Disease caused by 2019 novel coronavirus Fall H/O non-Hodgkin's lymphoma Hip pain, right HTN (hypertension) Insomnia Leg pain, right Numbness and tingling Osteoarthritis Pain sleep apnea Tremor Physical Examination General: No acute distress, Not alert and oriented. Eye: Normal conjunctiva. Sclera: Not icteric. HENT: Normocephalic, Normal hearing, Oral mucosa is moist. Neck: Supple, Non-tender, No jugular venous distention, No lymphadenopathy. Respiratory: Lungs are clear to auscultation, Respirations are non-labored, Breath sounds are equal, Symmetrical chest wall expansion. Cardiovascular: Normal rate, Regular rhythm, No murmur, No gallop, Good pulses equal in all extremities, No edema. Gastrointestinal: Soft, Non-tender, Non-distended, Normal bowel sounds, No organomegaly. Genitourinary: No costovertebral angle tenderness. Lymphatics: No lymphadenopathy neck, axilla, groin. Musculoskeletal: Normal range of motion, Normal strength, No tenderness, No swelling, No deformity. Integumentary: Warm, [place], Moist, No rash. Neurologic: Not alert, Not oriented. Psychiatric: Not cooperative, Not appropriate mood & affect. Review / Management Results review: Labs (Last four charted values) WBC H 12.0 (JUN 13) H 13.4 (JUN 12) 10.0 (JUN 11) 7.0 (JUN 10) HB L 10.9 (JUN 13) L 11.1 (OCT 14) L 10.7 (MAY 13) L 10.8 (MAY 12) HCT 34.3 (OCT 15) L 34.0 (OCT 14) L 32.8 (MAY 13) 34.3 (OCT 12) Plt 231 (OCT 15) 275 (OCT 14) 257 (OCT 13) 247 (OCT 12) Na 145 (MAY 14) H 148 (OCT 13) H 150 (OCT 12) H 149 (MAY 11) K 3.8 (MAY 14) 3.8 (OCT 13) 3.7 (OCT 12) 3.8 (OCT 11) Cl H 114 (MAY 14) H 119 (OCT 13) H 121 (MAY 12) H 120 (MAY 11) CO2 L 20 (MAY 14) L 20 (MAY 13) 21 (MAY 12) 22 (MAY 11) BUN H 58 (MAY 14) H 49 (MAY 13) H 32 (OCT 12) 18 (MAY 11) Cr H 2.00 (MAY 14) H 2.00 (MAY 13) H 1.50 (MAY 12) 1.00 (MAY 11) Glu R H 124 (MAY 14) 100 (MAY 13) H 135 (MAY 12) H 115 (MAY 11) Ca 8.9 (MAY 14) 9.2 (MAY 13) 8.9 (OCT 12) 9.3 (OCT 11) Lactic 1.0 (MAY 09) PT 11.4 (MAY 10) 11.4 (MAY 09) 11.4 (MAY 09) INR 1.1 (MAY 10) 1.1 (MAY 09) 1.1 (MAY 09) PTT 23.2 (MAY 09) AST H 127 (MAY 13) H 128 (MAY 12) H 210 (MAY 11) H 420 (MAY 10) ALT H 67 (MAY 13) H 98 (OCT 12) H 143 (MAY 11) H 181 (OCT 10) ALK P 80 (MAY 13) 88 (OCT 12) 101 (OCT 11) 99 (OCT 10) T Bili 0.4 (MAY 13) 0.5 (MAY 12) 0.9 (OCT 11) 0.6 (OCT 10) PTN L 5.2 (MAY 13) L 5.4 (OCT 12) L 5.9 (OCT 11) L 5.6 (OCT 10) ALB L 2.1 (MAY 13) L 2.2 (OCT 12) L 2.4 (OCT 11) L 2.3 (JUN 08) Troponin C 0.845 (JUN 12) C 2.020 (JUN 10) C 2.700 (JUN 08) C 1.220 (JUN 08) , JUN 13 04:00 \ L 10.9 / H 12.0 231 / 34.3 \, Radiology Results (Last 48 hours) [id number] -- 06/07/2021 12:36 CR Chest 1 Vw Portable (06/11/2021 07:54) [...] .Images reviewed, interpreted, and dictated by Dr. Milgaros Nathan.Transcribed by Elia Grimm PA-C, R.T. (N), C N M T.I have personally viewed, interpreted and dictated the examination. Ihave read and agree with the above final transcribed report. CR Intro Of Long GI Tube (06/12/2021 13:26) Result: FEEDING TUBE PLACEMENT UNDER FLUOROSCOPYFLUORO TIME: 12.3 minutes.FLUORO Films: 2.HISTORY: Malnutrition.ATTENDING RADIOLOGIST: Dr. Melendez.PHYSICIAN GETTER FILLER: Meg Madrigal PA-C.FINDINGS: The patient was brought to the fluoroscopy suite and placed onthe fluoroscopy table. Patient was advised to tilt their chin to theirchest and swallow while inserting the feeding tube through the nostriland down the nasal cavity. The feeding tube tip was identified underfluoroscopy to be within the body of the stomach. The existing wire wasremoved and an Amplatz stiff guidewire was introduced into the feedingtube. Tube was advanced from the stomach into the duodenum. Amplatz wasremoved and Gastrografin contrast was instilled to confirm tipplacement. Feeding tube tip in the third portion of the duodenum, and isin good position. Feeding tube was then bridled in place.IMPRESSION: Feeding tube advancement under fluoroscopy.Feeding tube tip in the third portion of the duodenum, and in goodposition.Bridled in place.Images reviewed, interpreted, and dictated by Dr. Bryan Melendez.Transcribed by Meg Madrigal PA-C.I have personally viewed, interpreted and dictated the examination. Chris read and agree with the above final transcribed report. . Impression and Plan Acute hypoxic respiratory failure [...] adding one time ivermectin, at her discretion Sepsis due to UTI and COVID-19 pneumonia, POA -On admission Fever 102, heart rate 120s, increased respiratory rate, source UTI and pneumonia -Received IVF bolus per sepsis protocol -Blood cultures No growth so far -Follow urine culture + veliz sensitive e coli -No prn Tylenol with transaminitis -Abx per ID R Pulmonary embolism -CTA noted: Multiple small [...] covid? vs chronic, last echo normal from 2017 -ECHO noted, EF 35% -Cardiology following making [...] level, normal 0.6, discussed with Dr. Marielle Nowak, will stop lithium with acute worsening delerium on 06/10, added low dose Seroquel 25, QTc < 500, PRN hydroxyzone Bilateral LE edema -D-dimer elevated 10/01 covid -No hx of CHF, Echo from 2017 with normal EF, no excess IVF at this time -LE US NEG -ECHO EF 35% Hypernatremia -Mild 147 to 149 to 150, IVF adjustments by Pulm with D5W, encouraged nursing to give, monitor Bipolar disorder: Resumed home lithium 30 bid, confirmed dose with pharmacist, lithium level low on admission to normal 0.6 with re-check, discussed with Dr. Marielle Nowak, will stop lithium in setting of acute worsening delerium Morbid obesity: BMI 45.8, complicates all aspects of care and resp failure with suspected OHS component Hx of non-Hodgkin's lymphoma DVT ppx: Lovenox therapeutic dose FULL CODE, confirmed with patient on admission, no living will, two living children son Shawn daughter Harley [phone]. BiPAP IV heart lowering agent given the tachycardia Pariet is critically ill at risk for Deterioration and intubation DISPOSITSION : Uncertain patient with further worsening of respiratory failure. Tachycardia. She may need intubation Time spent: 36 minutes Critical care time documented in this encounter Plan of Treatment Not on file documented as of this encounter Visit Diagnoses Not on filedocumented in this encounter
--- OUTSIDE RECORDS SUMMARY | 2025-03-08 13:16 | XMS_ITS | Encounter Summary ---
Author Organization [employer] ([place], [place], [place], [place]) Address [address] [place] [address] Care Team Providers Care Skin Piler Name Role Phone Unavailable Primary Care Provider Unavailabl e Encounter Details Date Type Department Care Team (Late st Contact Info) Description 06/18/2021 Transcribed Document [facility] [place] [address] [place] [address] ProviderTg MD [address] [place] [address] Social History Tobacco Use Types Packs/Day Years Used Date Smoking Tobacco: Never Assessed Comments Unknown Sex and Gender Information Value Date Recorded Sex Assigned at Not on file Legal Sex Female 2:39 PM CDT Gender Identity Not on file Sexual Orientation Not on file documented as of this encounter Miscellaneous Notes * Cerner Conversion Note - Tg Jones MD - 06/18/2021 10:22 AM CDT Patient: SUDHA SOLORZANO Age: 75 [...] recommendations will be based on test results, child care director communication, and clinical course. Ordered MRI brain [...] is alert but confused. I have spent 40 minutes on this case today. Over half [...] adequate, ammonia normal, mildly elevated white count Studies personally reviewed Imaging CT head 10???9 no significant abnormality Studies personally reviewed documented in this encounter Plan of Treatment Not on file documented as of this encounter Visit Diagnoses Not on filedocumented in this encounter
--- OUTSIDE RECORDS SUMMARY | 2025-03-08 13:16 | XMS_ITS | Encounter Summary ---
Author Organization [employer] ([place], [place], [place], [place]) Address [address] [place] [address] Care Team Providers Care Vice President Of Compliance Name Role Phone Unavailable Primary Care Provider Unavailabl e Encounter Details Date Type Department Care Team (Late st Contact Info) Description 06/08/2021 Transcribed Document [facility] [place] [address] [place] [address] ProviderTg MD [address] [place] [address] Social History Tobacco Use Types Packs/Day Years Used Date Smoking Tobacco: Never Assessed Comments Unknown Sex and Gender Information Value Date Recorded Sex Assigned at Not on file Legal Sex Female 2:39 PM CDT Gender Identity Not on file Sexual Orientation Not on file documented as of this encounter Miscellaneous Notes * Cerner Conversion Note - Historical ProviderMD - 06/08/2021 2:41 PM CDT Attempt to Treat, PT Entered On: 06/08/2021 14:41 EDT Performed On: 06/08/2021 14:41 EDT by KUSHAL CYR PT Attempt to Treat Unable to Treat Due To : Patient Unavailable Inability to Treat Comment : Pt was getting an ECHO KUSHAL CYR, PT - 06/08/2021 14:41 EDT documented in this encounter Plan of Treatment Not on file documented as of this encounter Visit Diagnoses Not on filedocumented in this encounter
--- OUTSIDE RECORDS SUMMARY | 2025-03-08 13:16 | XMS_ITS | Encounter Summary ---
Author Organization [employer] ([place], [place], [place], [place]) Address [address] [place] [address] Care Team Providers Care Serger Name Role Phone Unavailable Primary Care Provider Unavailabl e Encounter Details Date Type Department Care Team (Late st Contact Info) Description 06/08/2021 Transcribed Document [facility] [place] [address] [place] [address] ProviderTg MD [address] [place] [address] Social History Tobacco Use Types Packs/Day Years Used Date Smoking Tobacco: Never Assessed Comments Unknown Sex and Gender Information Value Date Recorded Sex Assigned at Not on file Legal Sex Female 2:39 PM CDT Gender Identity Not on file Sexual Orientation Not on file documented as of this encounter Miscellaneous Notes * Cerner Conversion Note - Tg ProviderMD - 06/08/2021 5:00 AM CDT Chart Check - Review Order Profile Entered On: 06/08/2021 4:37 EDT Performed On: 06/08/2021 5:00 EDT by Magda Dawson Rn Chart Check Powerplans Initiated/Discontinued as Appropriate : Yes All Active Orders Reviewed : Yes Magda Dawson Rn - 06/08/2021 4:37 EDT documented in this encounter Plan of Treatment Not on file documented as of this encounter Visit Diagnoses Not on filedocumented in this encounter
--- OUTSIDE RECORDS SUMMARY | 2025-03-08 13:16 | XMS_ITS | Encounter Summary ---
Author Organization [email or web address] ([place], [place], [place], [place]) Address [address] [place] [address] Care Team Providers Care Bobbin Painter Name Role Phone Unavailable Primary Care Provider Unavailabl e Encounter Details Date Type Department Care Team (Late st Contact Info) Description 06/18/2021 Transcribed Document [facility] [place] Family Medicine [address] [place] [address] ProviderTg MD [address] [place] [address] Social History Tobacco Use Types Packs/Day Years Used Date Smoking Tobacco: Never Assessed Comments Unknown Sex and Gender Information Value Date Recorded Sex Assigned at Not on file Legal Sex Female 2:39 PM CDT Gender Identity Not on file Sexual Orientation Not on file documented as of this encounter Miscellaneous Notes * Cerner Conversion Note - Historical ProviderMD - 06/18/2021 5:00 AM CDT Chart Check - Review Order Profile Entered On: 06/18/2021 4:50 EDT Performed On: 06/18/2021 5:00 EDT by Magda Dawson Rn Chart Check Powerplans Initiated/Discontinued as Appropriate : Yes All Active Orders Reviewed : Yes Magda Dawson Rn - 06/18/2021 4:50 EDT documented in this encounter Plan of Treatment Not on file documented as of this encounter Visit Diagnoses Not on filedocumented in this encounter
--- OUTSIDE RECORDS SUMMARY | 2025-03-08 13:16 | XMS_ITS | Encounter Summary ---
Author Organization [employer] ([place], [place], [place], [place]) Address [address] [place] [address] Care Team Providers Care Business Development Engineer Name Role Phone Unavailable Primary Care Provider Unavailabl e Encounter Details Date Type Department Care Team (Late st Contact Info) Description 06/09/2021 Transcribed Document [facility] [place] [address] [place] [address] ProviderTg MD [address] [place] [address] Social History Tobacco Use Types Packs/Day Years Used Date Smoking Tobacco: Never Assessed Comments Unknown Sex and Gender Information Value Date Recorded Sex Assigned at Not on file Legal Sex Female 2:39 PM CDT Gender Identity Not on file Sexual Orientation Not on file documented as of this encounter Miscellaneous Notes * Cerner Conversion Note - Historical ProviderMD - 06/09/2021 10:33 AM CDT Attempt to Treat, OT Entered On: 06/09/2021 15:12 EDT Performed On: 06/09/2021 10:33 EDT by DUSTIN PINK OTR/Lachelle Attempt to Treat Unable to Treat Due To : Acuity of Illness Inability to Treat Comment : Per nsg Lacey, pt underwent CT scan this morning and it took a lot out of her. Advised OT to return this afternoon. Will cont to check back as schedule allows. DUSTIN PINK OTR/Lachelle - 06/09/2021 15:11 EDT Electronically signed by Julian Baca Conversion Assembler Dielectric Heater Cerguevara at 12/18/2022 9:14 AM CDT documented in this encounter Plan of Treatment Not on file documented as of this encounter Visit Diagnoses Not on filedocumented in this encounter
--- OUTSIDE RECORDS SUMMARY | 2025-03-08 13:16 | XMS_ITS | Encounter Summary ---
Author Organization [employer] ([place], [place], [place], [place]) Address [address] [place] [address] Care Team Providers Care Product Delivery Specialist Name Role Phone Unavailable Primary Care Provider Unavailabl e Encounter Details Date Type Department Care Team (Late st Contact Info) Description 06/16/2021 Transcribed Document [facility] [place] [address] [place] [address] ProviderTg MD [address] [place] [address] Social History Tobacco Use Types [...] Historical ProviderMD - 06/16/2021 10:26 AM CDT Discharge Summary, OT Entered On: 06/16/2021 15:39 EDT Performed On: 06/16/2021 10:26 EDT by ROCKY VAUGHN OTR/L Discharge Summary, OT Discharge Summary Provider Notified : Nursing Reason for Discharge : Change in medical status Discharged to, Therapy : Other: remains at this hospital Discharge Summary Comment, OT : Pt has had a medical decline and will be discharged from therapy for now due to not medically appropriate. Will require re-order once medically stable. ROCKY VAUGHN OTR/L - 06/16/2021 15:37 EDT Residential Goals, OT Grooming LTG Grid Goal #1 Activity : Grooming Assist : Independent, modified Date to Meet : 06/22/2021 EDT Goal Status : Not met ROCKY VAUGHN OTR/L - 06/16/2021 15:37 EDT Dressing, Lower Body LTG Grid Goal #1 Activity : Dressing, Lower Body Assist : Independent, modified Date to Meet : 06/22/2021 EDT Goal Status : Not met ROCKY VAUGHN OTR/Lachelle - 06/16/2021 15:37 EDT Toilet Transfer LTG Grid Goal #1 Activity : Toilet Transfer, Ambulatory Assist : Independent, modified Date to Meet : 06/22/2021 EDT Goal Status : Not met ROCKY VAUGHN OTR/Lachelle - 06/16/2021 15:37 EDT Bed Mobility/ Bed Transfer LTG Grid Goal #1 Activity : Bed Mobility/Bed Transfer Assist : Independent, modified Date to Meet : 06/22/2021 EDT Goal Status : Not met ROCKY VAUGHN OTR/Lachelle - 06/16/2021 15:37 EDT documented in this encounter Plan of Treatment Not on file documented as of this encounter Visit Diagnoses Not on filedocumented in this encounter
--- OUTSIDE RECORDS SUMMARY | 2025-03-08 13:16 | XMS_ITS | Encounter Summary ---
Author Organization [employer] ([place], [place], [place], [place]) Address [address] [place] [address] Care Team Providers Care Ethylbenzene Converter Helper Name Role Phone Unavailable Primary Care Provider Unavailabl e Encounter Details Date Type Department Care Team (Late st Contact Info) Description 06/12/[address] [facility] [place] [place] Family Medicine [address] [place] [address] ProviderTg MD [address] [place] [address] Social History Tobacco Use [...] Note - Tg Jones MD - 06/12/2021 8:01 PM CDT Patient: SUDHA TIMMONS Age: 75 years Sex: Female : 1945 Associated Diagnoses: None Author: PHYLICIA KENNEDY MD Results Review Subjective HISTORY OF [...] had a COVID. Mother , cause unknown. DIAGNOSTIC STUDIES: LABORATORY RESULTS: Sodium is 148; [...] hydronephrosis and a small right renal cyst. 06/12: Patient was seen and examined, on O2, denies chest pain, shortness of breath, no new issues today Health Status Allergies: Allergic Reactions (Selected) Severity [...] Q3H, PRN: Tachycardia Lovenox: 115 mg, SubCutaneous, [id number] Mucinex: 1,200 mg, Oral, BID Protonix: 40 mg, IV Push, Daily SEROquel: 25 mg, Oral, [id number] Zofran: 4 mg, IV Push, Q4H, PRN: [...] mL inj 115 mg 0.77 mL, SubCutaneous, [id number] guaiFENesin 600 mg ER tab 1,200 mg 2 Tab, Oral, BID lactobacillus acidophilus cap 1 Cap, Oral, Daily pantoprazole 40 mg inj 40 mg, IV Push, Daily QUEtiapine 25 mg tab 25 mg 1 Tab, Oral, [id number] rifaXIMIN 550 mg tab 550 mg 1 [...] Medical Hip pain, right / SNOMED CT 6892537078 / Confirmed At risk for sleep apnea / IMO 11400575 / Confirmed Concussion / SNOMED CT 1045720862 / Confirmed concussion with loss of memory+ Disease caused by 2019 novel coronavirus / SNOMED CT 9357735080 / Confirmed Problem added by a rule: [id number]. Fall / SNOMED CT 8520737 / Confirmed HTN (hypertension) / SNOMED CT 2766848849 / Confirmed Depression / SNOMED CT 5566256211 / Confirmed Numbness and tingling / SNOMED CT 2910377972 / Confirmed numbness and tingling right thigh area to toes Osteoarthritis / SNOMED CT 2074953146 / Confirmed Pain / SNOMED CT 26445282 / Confirmed right buttocks pain Leg pain, right / SNOMED CT 415942485 / Confirmed sleep apnea / SNOMED CT 934961595 / Confirmed Insomnia / SNOMED CT 019940210 / Confirmed Tremor / SNOMED CT 34565497 / Confirmed, Active Problems (16) At risk [...] Last Charted Minimum Maximum Temp 98.7 (JUN 12 17:00) 97.3 (JUN 12 05:53) 99.0 (JUN 11 22:47) Apical HR H 125 (JUN 12 05:53) H 123 (JUN 11 22:45) H 125 (JUN 12 05:53) Mon HR 112 (JUN 12 17:27) 89 (JUN 11 22:32) 126 (JUN 11 22:47) Resp Rate 18 (JUN 12 17:27) 18 (JUN 12 05:21) H 22 (JUN 12 11:38) SBP H 149 (JUN 12 17:00) 123 (JUN 12 01:12) H 149 (JUN 12 17:00) DBP 85 (JUN 12 17:00) 70 (JUN 11 22:47) H 97 (JUN 12 05:53) MAP 93 (JUN 12 11:38) 82 (JUN 11 22:47) 109 (JUN 12 05:53) SpO2 94 (JUN 12 17:27) L 86 (JUN 12 11:38) 98 (JUN 11 22:32) General: Alert and oriented, Mild distress. Eye: Pupils are equal, round and reactive to light, Extraocular movements are intact. HENT: Normocephalic, Normal hearing, No pharyngeal erythema. Respiratory: Lungs are clear to auscultation, Respirations are non-labored, Breath sounds are equal, Symmetrical chest wall expansion. Cardiovascular: Normal rate, Regular rhythm, No murmur, No gallop. Gastrointestinal: Soft, Non-tender, Non-distended, No organomegaly. Integumentary: Warm, Dry, Intact, No rash. Neurologic: Alert, Oriented, No focal deficits, Cranial Nerves II-XII are grossly intact. Electrolytes([facility]) Results (Current Encounter/Past 24 Hours) Sodium Level 145 mmol/L 06/12/2021 06:38 Potassium Level 3.8 mmol/L 06/12/2021 06:38 Chloride Level 114 mmol/L ND 06/12/2021 06:38 Carbon Dioxide Level 20 mmol/L LOW 06/12/2021 06:38 Anion Gap 15 06/12/2021 06:38 Blood Urea Nitrogen 58 mg/dL ND 06/12/2021 06:38 Glucose Level 124 mg/dL ND 06/12/2021 06:38 Calcium Level 8.9 mg/dL 06/12/2021 06:38 Creatinine Level 2.00 mg/dL ND 06/12/2021 06:38 Blood Gases (Current Encounter/Past 24 Hours) No Blood Gas Results Found (Past 24 Hours) JUN 12 05:55 145 H 114 H 58 / H 124 3.8 L 20 H 2.00 \ JUN 12 05:55 \ L 11.1 / H 13.4 275 / L 34.0 \ Radiology Results (Last 48 hours) [id number] -- 06/07/2021 12:36 CR Chest 1 Vw [...] Dr. Milagros Nathan.Transcribed by Elia Grimm PA-C, SrinivasanTJavid (N), Vicente N M T.I have personally viewed, interpreted and dictated the examination. Ihave read and agree with the above final transcribed report. CR Intro Of Long GI Tube (06/12/2021 13:26) Result: FEEDING TUBE PLACEMENT UNDER FLUOROSCOPYFLUORO TIME: 12.3 minutes.FLUORO Films: 2.HISTORY: Malnutrition.ATTENDING RADIOLOGIST: Dr. Melendez.PHYSICIAN EMERGENCY MEDICINE SPECIALIST: Meg Madrigal PA-C.FINDINGS: The patient was brought [...] personally viewed, interpreted and dictated the examination. Ihcecilio read and agree with the above final transcribed report. Assessment 1. Multifactorial ATN secondary to infection/contrast-induced nephropathy in setting of being on DEMETRI inhibitors 2. Hypernatremia 3. Mild acidosis, non-anion gap secondary to REBECCA 4. PE 5. Covid pneumonitis Plan -Normal Kidney function normal with creatinine 2 today -Mild elevation of CK not clinically significant -None oliguric -Avoid nephrotoxins, NSAIDs, DEMETRI inhibitor's, ARB yes, please keep MAP above 65, Avoid IV Contrast -Renally dose medications and antibiotics -Daily renal function please, strict intake and output -No need for MAINTENANCE MECHANIC ENGINE at present time -Thanks for consultation, follow along with you Phylicia Kennedy MD Electronically signed by Keven, [facility] Director Cerner at 12/18/2022 9:14 AM CDT documented in this encounter Plan of Treatment Not on file documented as of this encounter Visit Diagnoses Not on filedocumented in this encounter
--- OUTSIDE RECORDS SUMMARY | 2025-03-08 13:16 | XMS_ITS | Encounter Summary ---
Author Organization [employer] ([place], [place], [place], [place]) Address [address] [place] [address] Care Team Providers Care Support Services Coordinator Name Role Phone Unavailable Primary Care Provider Unavailabl e Encounter Details Date Type Department Care Team (Late st Contact Info) Description 06/13/2021 Transcribed Document [facility] Family Medicine [address] [place] [address] ProviderTg MD [address] [place] [address] Social History Tobacco Use Types Packs/Day Years Used Date Smoking Tobacco: Never Assessed Comments Unknown Sex and Gender Information Value Date Recorded Sex Assigned at Not on file Legal Sex Female 2:39 PM CDT Gender Identity Not on file Sexual Orientation Not on file documented as of this encounter Miscellaneous Notes * [employer] Conversion Note - Historical ProviderMD - 06/13/2021 12:09 PM CDT Attempt to Treat, OT Entered On: 06/13/2021 12:16 EDT Performed On: 06/13/2021 12:09 EDT by DUSTIN PINK OTR/Lachelle Attempt to Treat Unable to Treat Due To : Patient on hold Inability to Treat Comment : Hold per Eliezer Mohr due to pt's o2 saturation levels. Will check for appropriateness tomorrow. Notification : DUSTIN Cheney OTR/Lachelle - 06/13/2021 12:09 EDT documented in this encounter Plan of Treatment Not on file documented as of this encounter Visit Diagnoses Not on filedocumented in this encounter
--- OUTSIDE RECORDS SUMMARY | 2025-03-08 13:16 | XMS_ITS | Encounter Summary ---
Author Organization [employer] ([place], [place], [place], [place]) Address [address] [place] [address] Care Team Providers Care Diesel Technician Mechanic Name Role Phone Unavailable Primary Care Provider Unavailabl e Encounter Details Date Type Department Care Team (Late st Contact Info) Description 06/13/2021 Transcribed Document [facility] Family Medicine [address] [place] [address] ProviderTg MD [address] [place] [address] Social History Tobacco Use Types Packs/Day Years Used Date Smoking Tobacco: Never Assessed Comments Unknown Sex and Gender Information Value Date Recorded Sex Assigned at Not on file Legal Sex Female 2:39 PM CDT Gender Identity Not on file Sexual Orientation Not on file documented as of this encounter Miscellaneous Notes * [employer] Conversion Note - Historical ProviderMD - 06/13/2021 2:00 AM CDT Director Of Food And Nutrition Services Details Entered On: 06/13/2021 1:19 EDT Performed On: 06/13/2021 2:00 EDT by Josee Arnett Non Emp RN Order Details Transport Mode Order Detail : [...] Yes Meds Administered Via Tube : Yes Josee Arnett Non Emp RN - 06/13/2021 1:19 EDT documented in this encounter Plan of Treatment Not on file documented as of this encounter Visit Diagnoses Not on filedocumented in this encounter
--- OUTSIDE RECORDS SUMMARY | 2025-03-08 13:16 | XMS_ITS | Encounter Summary ---
Author Organization [employer] ([place], [place], [place], [place]) Address [address] [place] [address] Care Team Providers Care Sales And Service Advisor Name Role Phone Unavailable Primary Care Provider Unavailabl e Encounter Details Date Type Department Care Team (Late st Contact Info) Description 06/13/2021 Transcribed Document [facility] [place] Family Medicine [address] [place] [address] ProviderTg MD [address] [place] [address] Social History Tobacco Use Types Packs/Day Years Used Date Smoking Tobacco: Never Assessed Comments Unknown Sex and Gender Information Value Date Recorded Sex Assigned at Not on file Legal Sex Female 2:39 PM CDT Gender Identity Not on file Sexual Orientation Not on file documented as of this encounter Miscellaneous Notes * [employer] Conversion Note - Historical ProviderMD - 06/13/2021 1:02 PM CDT Attempt to Treat, PT Entered On: 06/13/2021 13:03 EDT Performed On: 06/13/2021 13:02 EDT by VINH JASSO, PT Student Attempt to Treat Unable to Treat Due To : Acuity of Illness VINH JASSO, PT Student - 06/13/2021 13:02 EDT Inability to Treat Comment : Per OT Fermin, She spoke with Joseluis Mohr that patient is not appropriate today for PT due to worsening condition and having to increase O2. PT has reviewed and agrees with note. RENY BLAIR, PT - 06/13/2021 13:15 EDT documented in this encounter Plan of Treatment Not on file documented as of this encounter Visit Diagnoses Not on filedocumented in this encounter
--- OUTSIDE RECORDS SUMMARY | 2025-03-08 13:16 | XMS_ITS | Encounter Summary ---
Author Organization [employer] ([place], [place], [place], [place]) Address [address] [place] [address] Care Team Providers Care Scrap Drop Operator Name Role Phone Unavailable Primary Care Provider Unavailabl e Encounter Details Date Type Department Care Team (Late st Contact Info) Description 06/17/2021 Transcribed Document [facility] Radiology [address] [place] [address] Margo Alvarez MD [address] [place] [id number] Social History Tobacco Use Types Packs/Day Years Used Date Smoking Tobacco: Never Assessed Comments Unknown Sex and Gender Information Value Date Recorded Sex Assigned at Not on file Legal Sex Female 2:39 PM CDT Gender Identity Not on file Sexual Orientation Not on file documented as of this encounter Miscellaneous Notes * [employer] Conversion Note - Margo Alvarez MD - 06/17/2021 12:00 PM EDT Patient: SUDHA SOLORZANO Age: 75 years Sex: Female : 1945 Associated Diagnoses: None Author: MARGO ALVAREZ MD-INT Basic Information Date of encounter 06/17/21 Patient is more awake today Becomes tearful but does not answer questions No fever Tolerating her tube feeds. Physical Examination VS/Measurements Vitals Signs (last 24 hrs) Last Charted Minimum Maximum Temp 98.6 (JUN 17 12:00) 97.4 (JUN 17 00:03) 99 (JUN 16 19:57) Mon HR 102 (JUN 17 12:00) 70 (JUN 16 22:03) 136 (JUN 16 17:18) Resp Rate 20 (JUN 17 12:00) 18 (JUN 16 22:03) H 22 (JUN 16 17:18) SBP H 148 (JUN 17 12:00) 121 (JUN 16 19:57) H 182 (JUN 17 02:00) DBP H 94 (JUN 17 12:00) 73 (JUN 17 08:14) H 148 (JUN 17 02:00) MAP 112 (JUN 17 12:00) 98 (JUN 17 08:14) 164 (JUN 17 02:00) SpO2 L 93 (JUN 17 12:00) L 76 (JUN 16 21:18) 100 (JUN 16 19:55) General: No acute distress, on HF, alert but not oriented, Not alert and oriented. Eye: Normal conjunctiva. Sclera: Not icteric. HENT: Normocephalic. Neck: Supple, Non-tender. Respiratory: Lungs are clear to auscultation, Breath sounds are equal, Symmetrical chest wall expansion, with scattered rhonchi bilateral, hsa a port on left side of chest. Cardiovascular: Regular rhythm, No edema, tachycardic. Gastrointestinal: Soft, Non-tender, Non-distended, Normal bowel sounds, No organomegaly. Musculoskeletal: No tenderness, No swelling. Integumentary: Warm, [place], Moist. Neurologic: Alert, not following commands, Not oriented. Psychiatric: cannot check. Review / Management Labs reviewed. Impression and Plan Acute hypoxemic respiratory failure secondary to covid and concomitant PE -Vaccinated with Pfizer per record review. -Continuous oxygen monitoring, uptitrated on optiflow -Continue dexamethasone 10 iv bid, remdesivir, s/p actemra 06/09 and now on high flow oxygen. Acute metabolic encephalopathy with likely chronic underlying memory problems and ? dementia Patient continues to remain poorly responsive despite progress withher oxygen requirements now CT head negative and had normal ammonia level. Off lithium (reportedly had recent problems as outpt and advised to stop lithium as per discussion with her son) with continued altered mentation neuro input requested. Plan for MRI brain. Sepsis due to UTI and COVID-19 pneumonia, [...] US NEG -ECHO EF 35% Hypernatremia: Sodium better again and discontinue D5 Bipolar disorder:As per discussion with her son [...] two living children son Shawn daughter Harley [phone]. Placed Corpak for Tube feeding and Meds Neuro input given her continued altered mentation despite some progress with her oxygen needs. Pending MRI brain. DISPOSITSION : Uncertain at this time Patient admitted with covid and acute respiratory failure worsening . However with altered mentation and poor responsivenss and currently with corpak and tube feeds. Unable to participate with therapy etc. Pending MRI brain. Discussed with son Shawn Solorzano over the [...]
--- OUTSIDE RECORDS SUMMARY | 2025-03-08 13:16 | XMS_ITS | Encounter Summary ---
Author Organization [employer] ([place], [place], [place], [place]) Address [address] [place] [address] Care Team Providers Care Map Clerk Name Role Phone Unavailable Primary Care Provider Unavailabl e Encounter Details Date Type Department Care Team (Late st Contact Info) Description 06/13/2021 Transcribed Document [facility] [place] [address] [place] [address] ProviderTg MD [address] [place] [address] Social History Tobacco Use Types Packs/Day Years Used Date Smoking Tobacco: Never Assessed Comments Unknown Sex and Gender Information Value Date Recorded Sex Assigned at Not on file Legal Sex Female 2:39 PM CDT Gender Identity Not on file Sexual Orientation Not on file documented as of this encounter Miscellaneous Notes * [employer] Conversion Note - Tg Jones MD - 06/13/2021 11:49 AM CDT Patient: SUDHA TIMMONS Age: 75 years Sex: Female : 1945 Associated Diagnoses: None Author: DESIRAE NOWAK MD-INT DATE OF SERVCIE: 06/13/2021 Basic Information Patient is seen and evaluated [...] Q3H, PRN: Tachycardia Lovenox: 115 mg, SubCutaneous, [id number] Pepcid: 20 mg, Oral, Daily Robitussin: 1,200 mg, PEG Tube, BID SEROquel: 25 mg, Oral, [id number] Zofran: 4 mg, IV Push, Q4H, PRN: Nausea aspirin: 81 mg, Oral, Daily atovaquone: 750 mg, Oral, BID cefTRIAXone: 2 Gram, 100 mL/Hr, IV Piggyback, C44XSsl cyanocobalamin: 1,000 mcg, IntraMuscular, Daily dexAMETHasone: 10 mg, IV Push, Daily hydrOXYzine hydrochloride: 25 mg, Oral, At Bedtime, PRN: Sleep labetalol: 10 mg, IV Push, Q3H, PRN: Hypertension lactobacillus acidophilus: 1 Cap, Oral, Daily micafungin: 100 mg, 100 mL/Hr, IV Piggyback, [id number] oxyCODONE: 5 mg, Oral, Q4H, PRN: Pain [...] Cap, 0 Refill(s), Medications (19) Active Scheduled: (14) albuterol-ipratropium CFC free 4 g inh 2 Puff, Inhalation, RT_QID aspirin EC 81 mg tab 81 mg 1 Tab, Oral, Daily atovaquone 750 mg/5 mL liq 750 mg 5 mL, Oral, BID carvedilol 6.25 mg tab 6.25 mg 1 Tab, Oral, BID cefTRIAXone 2 Gram, IV Piggyback, [id number] cyanocobalamin 1000 mcg/1 mL inj 1,000 mcg 1 mL, IntraMuscular, Daily dexAMETHasone 10 mg/1 mL inj 10 mg 1 mL, IV Push, Daily enoxaparin 150 mg/1 mL inj 115 mg 0.77 mL, SubCutaneous, K16EKgo famotidine 20 mg tab 20 mg 1 Tab, Oral, Daily guaiFENesin 200 mg/10 mL liq 1,200 mg 60 mL, PEG Tube, BID lactobacillus acidophilus cap 1 Cap, Oral, Daily micafungin sodium 100 mg, IV Piggyback, A29GWze QUEtiapine 25 mg tab 25 mg 1 Tab, Oral, M65TIxt rifaXIMIN 550 mg tab 550 mg 1 [...] Medical Hip pain, right / SNOMED CT 5027812987 / Confirmed At risk for sleep apnea / IMO 08243728 / Confirmed Concussion / SNOMED CT 9594414055 / Confirmed concussion with loss of memory+ Disease caused by 2019 novel coronavirus / SNOMED CT 2783538201 / Confirmed Problem added by a rule: [id number]. Fall / SNOMED CT 6455973 / Confirmed HTN (hypertension) / SNOMED CT 0062667952 / Confirmed Depression / SNOMED CT 0995000556 / Confirmed Numbness and tingling / SNOMED CT 4838325012 / Confirmed numbness and tingling right thigh area to toes Osteoarthritis / SNOMED CT 8887620376 / Confirmed Pain / SNOMED CT 12801461 / Confirmed right buttocks pain Leg pain, right / SNOMED CT 873792313 / Confirmed sleep apnea / SNOMED CT 682161508 / Confirmed Insomnia / SNOMED CT 322912486 / Confirmed Tremor / SNOMED CT 28760281 / Confirmed, Active Problems (16) At risk [...] (JUN 13 04:00) Mon HR 119 (JUN 13:24) 102 (JUN 13 08:52) 119 (JUN 13:24) Resp Rate 18 (JUN 13 20:00) 18 (JUN 13 20:00) 19 (JUN 13 02:00) SBP 137 (JUN 13 20:00) 117 (JUN 13 14:03) H 148 (JUN 13 04:00) DBP 81 (JUN 13 20:00) 69 (JUN 13 14:03) 89 (JUN 13 04:00) MAP 96 (JUN 13 20:00) 83 (JUN 13 14:03) 103 (JUN 13 04:00) SpO2 L 93 (JUN 13 20:24) L 89 (JUN 13 14:03) 100 (JUN 13 12:00) General: No acute distress, Not alert and [...] tenderness, No swelling, No deformity. Integumentary: Warm, [place], Moist, No rash. Neurologic: Not alert, Not [...] 15) L 34.0 (MAY 14) L 32.8 (MAY 13) 34.3 (MAY 12) Plt 231 (MAY 15) 275 (OCT 14) 257 (MAY 13) 267 (MAY 12) Na 143 (MAY 15) 145 (MAY 14) H 148 (MAY 13) H 150 (MAY 12) K 3.6 (MAY 15) 3.8 (MAY 14) 3.8 (OCT 13) 3.7 (OCT 12) Cl H 114 (MAY 15) H 114 (MAY 14) H 119 (MAY 13) H 121 (MAY 12) CO2 22 (MAY 15) L 20 (MAY 14) L 20 (MAY 13) 21 (MAY 12) BUN H 60 (MAY 15) H 58 (OCT 14) H 49 (OCT 13) H 32 (OCT 12) Cr H 1.80 (MAY 15) H 2.00 (MAY 14) H 2.00 (MAY 13) H 1.50 (MAY 12) Glu R H 143 (OCT 15) H 124 (JUN 12) 100 (JUN 11) H 135 (JUN 10) Ca 8.4 (JUN [...] 13) 80 (JUN 11) 88 (JUN 10) 101 (JUN 09) T Bili 0.4 (JUN [...] 1.220 (JUN 08) , JUN 13 04:00 143 H 114 H 60 / H 143 3.6 22 H 1.80 \ JUN 13 04:00 \ L 10.9 / H 12.0 231 / 34.3 \, Radiology Results (Last 48 hours) [id number] -- 06/07/2021 12:36 CR Intro Of Long GI Tube (06/12/2021 13:26) Result: FEEDING TUBE PLACEMENT UNDER FLUOROSCOPYFLUORO TIME: 12.3 minutes.FLUORO Films: 2.HISTORY: Malnutrition.ATTENDING RADIOLOGIST: Dr. Melendez.PHYSICIAN SPRAY GUN REPAIRER: Meg Madrigal PA-C.FINDINGS: The patient was brought [...] by Dr. Bryan Melendez.Transcribed by Meg Madrigal PA-C.Jorge have personally viewed, interpreted and dictated the examination. Chris read and agree with the above final transcribed report. CR Chest 1 Vw Portable (06/13/2021 07:23) Result: PORTABLE CHEST; HISTORY: Dyspnea.COMPARISON: June 11, 2021.FINDINGS: There is a new feeding tube terminating below the diaphragm.There has been no change in the left Port-A-Cath. The heart is normal insize. The mediastinum is unremarkable. There are slightly worseningbilateral opacities favored to represent pneumonia. Pulmonary edema isnot excluded. There is no pneumothorax. IMPRESSION: Slightly worsening bilateral opacities, favor pneumonia.Pulmonary edema is not excluded. Images reviewed, interpreted, and dictated by Dr. Jacquie Clemente.Transcribed by Alyce Acosta PA-C.Jorge have personally viewed, interpreted and dictated the [...] 0.6 with re-check, discussed with Dr. Marielle Nwoak, will stop lithium in setting of acute worsening delerium Morbid obesity: BMI 45.8, complicates all aspects of care and resp failure with suspected OHS component Hx of non-Hodgkin's lymphoma DVT ppx: Lovenox therapeutic dose FULL CODE, confirmed with patient on admission, no living will, two living children son Shawn daughter Harley . Placed Corpak for Tube feeding and Meds Continue BiPAP IV heart lowering agent given the tachycardia Pariet is critically ill at risk for Deterioration and intubation DISPOSITSION : Uncertain patient with further worsening of respiratory failure. Tachycardia. She may need intubation Time spent: 35 minutes Critical care time documented in this encounter Plan of Treatment Not on file documented as of this encounter Visit Diagnoses Not on filedocumented in this encounter
--- OUTSIDE RECORDS SUMMARY | 2025-03-08 13:16 | XMS_ITS | Encounter Summary ---
Author Organization [employer] ([place], [place], [place], [place]) Address [address] [place] [address] Care Team Providers Care Mosquito Sprayer Name Role Phone Unavailable Primary Care Provider Unavailabl e Encounter Details Date Type Department Care Team (Late st Contact Info) Description 06/17/2021 Transcribed Document [facility] [place] Family Medicine [address] [place] [address] ProviderTg MD [address] [place] [address] Social History Tobacco Use Types Packs/Day Years Used Date Smoking Tobacco: Never Assessed Comments Unknown Sex and Gender Information Value Date Recorded Sex Assigned at Not on file Legal Sex Female 2:39 PM CDT Gender Identity Not on file Sexual Orientation Not on file documented as of this encounter Miscellaneous Notes * Cerner Conversion Note - Tg Jones MD - 06/17/2021 4:04 PM CDT Patient: SUDHA TIMMONS Age: 75 [...] had a COVID. Mother , cause unknown. 06/17: Patient was seen and examined, confused, lethargic, she is on tube feed Health Status Allergies: Allergic Reactions (Selected) Severity [...] Q3H, PRN: Tachycardia Lovenox: 115 mg, SubCutaneous, [id number] Pepcid: 20 mg, Oral, Daily Robitussin: 400 mg, Oral, Q4HInt SEROquel: 12.5 mg, Oral, BID, PRN: Agitation Zofran: 4 mg, IV Push, Q4H, PRN: Nausea aspirin: 81 mg, Feeding Tube, Daily atovaquone: 750 mg, Oral, BID cefTRIAXone: 2 Gram, 100 mL/Hr, IV Piggyback, [id number] dexAMETHasone: 10 mg, IV Push, Daily glucagon: [...] micafungin: 100 mg, 100 mL/Hr, IV Piggyback, [id number] oxyCODONE: 5 mg, Oral, Q4H, PRN: Pain [...] Oral, Daily, 30 Cap, 0 Refill(s), Medications (28) Active Scheduled: (13) aspirin 81 mg chew tab 81 mg 1 Tab, Feeding Tube, Daily atorvastatin 40 mg tab 40 mg 1 Tab, Oral, At Bedtime atovaquone 750 mg/5 mL liq 750 mg 5 mL, Oral, BID carvedilol 12.5 mg tab 12.5 mg 1 Tab, Oral, BID cefTRIAXone 2 Gram, IV Piggyback, [id number] dexAMETHasone 10 mg/1 mL inj 10 mg 1 mL, IV Push, Daily enoxaparin 60 mg/0.6 mL inj 115 mg 1.15 mL, SubCutaneous, [id number] famotidine 20 mg tab 20 mg 1 Tab, Oral, Daily guaiFENesin 200 mg/10 mL liq 400 mg 20 mL, Oral, Q4HInt insulin regular 1 unit/0.01 mL inj 3mL Scale A, SubCutaneous, Q6H lactobacillus acidophilus cap 1 Cap, Oral, Daily micafungin sodium 100 mg, IV Piggyback, [id number] rifaXIMIN 550 mg tab 550 mg 1 [...] Medical Hip pain, right / SNOMED CT 9432060607 / Confirmed At risk for sleep apnea / IMO 46153745 / Confirmed At risk for violence / IMO 33975234 / Confirmed Concussion / SNOMED CT 7227197312 / Confirmed concussion with loss of memory+ Disease caused by 2019 novel coronavirus / SNOMED CT 9381225420 / Confirmed Problem added by a rule: [id number]. Fall / SNOMED CT 2755291 / Confirmed HTN (hypertension) / SNOMED CT 0614743179 / Confirmed Depression / SNOMED CT 5488476537 / Confirmed Numbness and tingling / SNOMED CT 2482556690 / Confirmed numbness and tingling right thigh area to toes Osteoarthritis / SNOMED CT 8788616304 / Confirmed Pain / SNOMED CT 96412485 / Confirmed right buttocks pain Leg pain, right / SNOMED CT 218859520 / Confirmed sleep apnea / SNOMED CT 417531932 / Confirmed Insomnia / SNOMED CT 941425490 / Confirmed Tremor / SNOMED CT 35127546 / Confirmed, Active Problems (17) At risk [...] 16 21:18) 100 (JUN 16 19:55) General: confused, lethargiic , Not alert and [...] No rash. Neurologic: Not alert, Not oriented. Electrolytes([facility]) Results (Current Encounter/Past 24 Hours) Sodium Level 143 mmol/L 06/17/2021 08:44 Potassium Level 4.7 mmol/L 06/17/2021 08:44 Chloride Level 115 mmol/L OK 06/17/2021 08:44 Carbon Dioxide Level 25 mmol/L 06/17/2021 08:44 Anion Gap 8 LOW 06/17/2021 08:44 Blood Urea Nitrogen 23 mg/dL OK 06/17/2021 08:44 Glucose Level 141 mg/dL OK 06/17/2021 08:44 Calcium Level 8.2 mg/dL LOW 06/17/2021 08:44 Creatinine Level 0.70 mg/dL 06/17/2021 08:44 Blood Gases (Current Encounter/Past 24 Hours) No Blood Gas Results Found (Past 24 Hours) JUN 17 04:00 143 H 115 H 23 / H 141 4.7 25 0.70 \ JUN 17 04:00 \ L 8.9 / H 12.9 206 / L 27.7 \ Radiology Results (Last 48 hours) [id number] -- 06/07/2021 12:36 CR Chest 1 Vw [...] in Kidney function with creatinine down to 0.7 today -Mild elevation of CK not clinically significant -None oliguric -Avoid nephrotoxins, please keep MAP above 65, Avoid IV Contrast -Daily renal function please, strict intake and output -currently on Water to 70 ml/hour -Thanks for consultation, follow along with you Florence Kennedy MD Electronically signed by Keven, [facility] Conversion [employer] Architect Cerner at 12/18/2022 9:06 AM CDT documented in this encounter Plan of Treatment Not on file documented as of this encounter Visit Diagnoses Not on filedocumented in this encounter
--- OUTSIDE RECORDS SUMMARY | 2025-03-08 13:16 | XMS_ITS | Encounter Summary ---
Author Organization [employer] ([place], [place], [place], [place]) Address [address] [place] [address] Care Team Providers Care Fly Rail Operator Name Role Phone Unavailable Primary Care Provider Unavailabl e Encounter Details Date Type Department Care Team (Late st Contact Info) Description 06/18/2021 Transcribed Document [facility] Pulm & Critical Care Medicine [address] [place] [address] [address] [place] [address] Enrique Lindsey MD [address] [facility] [address] [place] [address] Social History Tobacco Use Types Packs/Day Years Used Date Smoking Tobacco: Never Assessed Comments Unknown Sex and Gender Information Value Date Recorded Sex Assigned at Not on file Legal Sex Female 2:39 PM CDT Gender Identity Not on file Sexual Orientation Not on file documented as of this encounter Miscellaneous Notes * Cerner Conversion Note - Enrique Lindsey MD - 06/18/2021 10:38 AM EDT Patient: SUDHA TIMMONS Age: 75 [...] UOP for overall fluid balance of -969ml. Intake & Output Totals Last 24 Hours (7a-7a) Intake (34 Events) Continuous Infusions (250 mL) Medications (221 mL) Enteral Additional Water Given (500 mL) Enteral Feeding Amount (210 mL) Enteral Feeding Bolus Amount (700 mL) Output (3 Events) Hamlin Catheter (1550 mL) Urine Voided (Volume) (1300 mL) Input Total: 1881 mL Output Total: 2850 mL Balance: -969 mL Review of Systems Neurologic: Confusion. Unable [...] Q3H, PRN: Tachycardia Lovenox: 115 mg, SubCutaneous, [id number] MiraLax: 17 Gram, Oral, Daily Pepcid: 20 mg, Oral, Daily Robitussin: 400 mg, Oral, Q4HInt SEROquel: 12.5 mg, Oral, BID, PRN: Agitation Zofran: 4 mg, IV Push, Q4H, PRN: Nausea aspirin: 81 mg, Feeding Tube, Daily atovaquone: 750 mg, Oral, BID cefTRIAXone: 2 Gram, 100 mL/Hr, IV Piggyback, [id number] glucagon: 1 mg, IntraMuscular, Q15Min, PRN: Other [...] micafungin: 100 mg, 100 mL/Hr, IV Piggyback, [id number] oxyCODONE: 5 mg, Oral, Q4H, PRN: Pain [...] Oral, BID cefTRIAXone 2 Gram, IV Piggyback, [id number] enoxaparin 60 mg/0.6 mL inj 115 mg 1.15 mL, SubCutaneous, I78BPfd famotidine 20 mg tab 20 mg 1 Tab, Oral, Daily guaiFENesin 200 mg/10 mL liq 400 mg 20 mL, Oral, Q4HInt insulin regular 1 unit/0.01 mL inj 3mL Scale A, SubCutaneous, Q6H lactobacillus acidophilus cap 1 Cap, Oral, Daily micafungin sodium 100 mg, IV Piggyback, Q16JBmt polyethylene glycol 3350 pwd 17 g pkt [...] Medical Hip pain, right / SNOMED CT 3588142235 / Confirmed At risk for sleep apnea / IMO 27332747 / Confirmed At risk for violence / IMO 08779451 / Confirmed Concussion / SNOMED CT 4126710905 / Confirmed concussion with loss of memory+ Disease caused by 2019 novel coronavirus / SNOMED CT 2250062613 / Confirmed Problem added by a rule: [id number]. Fall / SNOMED CT 6966496 / Confirmed HTN (hypertension) / SNOMED CT 9937071988 / Confirmed Depression / SNOMED CT 8513110013 / Confirmed Numbness and tingling / SNOMED CT 8171693653 / Confirmed numbness and tingling right thigh area to toes Osteoarthritis / SNOMED CT 7476885822 / Confirmed Pain / SNOMED CT 72517758 / Confirmed right buttocks pain Leg pain, right / SNOMED CT 560269390 / Confirmed sleep apnea / SNOMED CT 241926934 / Confirmed Insomnia / SNOMED CT 608385234 / Confirmed Tremor / SNOMED CT 17834439 / Confirmed, Active Problems (17) At risk [...] (JUN 17 12:00) MAP 99 (JUN 18 05:00) 89 (JUN 17 17:33) 113 (JUN 18 01:00) SpO2 96 (JUN 18 05:00) L 93 (JUN 17 12:00) 97 (JUN 17:33) General: Mild distress, on HFNC at 4 [...] review: Labs (Last four charted values) WBC 8.2 (MAY 20) H 12.9 (MAY 19) H 14.3 (MAY 18) H 10.9 (MAY 17) HB L 8.9 (MAY 20) L 8.9 (OCT 19) L 9.4 (OCT 18) L 9.8 (OCT 17) HCT L 27.7 (MAY 20) L 27.7 (OCT 19) L 29.5 (OCT 18) L 31.3 (OCT 17) Plt 210 (MAY 20) 206 (OCT 19) 201 (OCT 19) 200 (OCT 18) Na 145 (OCT 20) 143 (OCT 19) 144 (OCT 18) H 151 (OCT 17) K 5.0 (OCT 20) 4.7 (OCT 19) 5.1 (OCT 18) 4.1 (OCT 17) Cl H 116 (OCT 20) H 115 (OCT 19) H 117 (OCT 18) H 122 (OCT 17) CO2 26 (OCT 20) 25 (OCT 19) 24 (OCT 18) 25 (OCT 17) BUN 21 (OCT 20) H 23 (OCT 19) H 26 (OCT 18) H 31 (OCT 17) Cr 0.60 (OCT 20) 0.70 (OCT 19) 0.80 (MAY 18) 0.90 (MAY 17) Glu R H 116 (JUN 18) H 141 (JUN 17) H 214 (MAY 18) H 159 (MAY 17) Ca 8.5 (MAY 20) L 8.2 (MAY 19) L 8.3 (MAY 18) 8.4 (MAY 17) Lactic 1.6 (JUN 17) 1.0 (JUN 07) PT 11.4 (JUN 08) 11.4 (JUN 07) 11.4 (JUN 07) INR 1.1 (JUN 08) 1.1 (JUN 07) 1.1 (JUN 07) PTT 23.2 (JUN 07) AST 29 (JUN 18) 36 (JUN 17) H 87 (MAY 15) H 127 (JUN 11) ALT 27 (JUN 18) 22 (JUN 17) 24 (MAY 15) H 67 (MAY 13) ALK P 110 (JUN 18) 130 (JUN 17) 88 (MAY 15) 80 (MAY 13) T Bili 0.4 (JUN 18) 0.3 (JUN 17) 0.4 (MAY 15) 0.4 (MAY 13) PTN L 4.5 (JUN 18) L 4.7 (JUN 17) L 5.0 (MAY 15) L 5.2 (MAY 13) ALB L 2.2 (JUN 18) L 2.1 (JUN 17) L 2.3 (MAY 15) L 2.1 (MAY 13) Troponin H 0.094 (JUN 18) H 0.147 (MAY 18) H 0.447 (MAY 16) H 0.438 (MAY 16) . JUN 16 14:50 144 H 117 [...] 27.7 \ Radiology Results (Last 48 hours) [id number] -- 06/07/2021 12:36 CR Chest 1 Vw [...] Creat. Hypernatremia - Improved. US RUQ: on 9 Stable mild right hydronephrosis of uncertain etiology [...] maintain O2 saturations 90-94% - currently on 4LPM. High risk for further decompensation. She is [...] brain ordered by neuro for further evaluation. Pending completion Labs in AM FULL CODE Prognosis : guarded. high risk for deterioration and need for mechanical vent I saw and examined the patient at bedside, obtained medical history, reviewed labs, diagnostics and chest imaging data. I personally and independently visualized and interpreted chest imaging data on PACS. I formulated diagnosis and treatment plans. I made all medical decisions as above. Complex case and critically ill. Need high level of decision making. Cumulative Critical care time spent on the patient excluding procedures - 32 min. documented in this encounter Plan of Treatment Not on file documented as of this encounter Visit Diagnoses Not on filedocumented in this encounter
--- OUTSIDE RECORDS SUMMARY | 2025-03-08 13:16 | XMS_ITS | Encounter Summary ---
Author Organization [employer] ([place], [place], [place], [place]) Address [address] [place] [address] Care Team Providers Care Licensed Sales Assistant Name Role Phone Unavailable Primary Care Provider Unavailabl e Encounter Details Date Type Department Care Team (Late st Contact Info) Description 06/13/2021 Transcribed Document [facility] Pulm & Critical Care Medicine [address] [place] [address] [address] [place] [address] Nadiya Chambers MD [address] [facility] [address] [place] [address] Social History Tobacco Use Types Packs/Day Years Used Date Smoking Tobacco: Never Assessed Comments Unknown Sex and Gender Information Value Date Recorded Sex Assigned at Not on file Legal Sex Female 2:39 PM CDT Gender Identity Not on file Sexual Orientation Not on file documented as of this encounter Miscellaneous Notes * Cerner Conversion Note - Nadiya Chambers MD - 06/13/2021 11:07 AM EDT Patient: SUDHA TIMMONS Age: 75 [...] 1.8, neg 560 in last 24 hours. Intake & Output Totals Last 24 Hours (7a-7a) Intake (7 Events) Medications (340 mL) Output (3 Events) Hamlin Catheter (900 mL) Input Total: 340 mL Output Total: 900 mL Balance: -560 mL Review of Systems Unable to obtain: [...] Q3H, PRN: Tachycardia Lovenox: 115 mg, SubCutaneous, [id number] Mucinex: 1,200 mg, Oral, BID Protonix: 40 mg, IV Push, Daily SEROquel: 25 mg, Oral, [id number] Zofran: 4 mg, IV Push, Q4H, PRN: [...] mL inj 115 mg 0.77 mL, SubCutaneous, S86MHzu guaiFENesin 600 mg ER tab 1,200 mg 2 Tab, Oral, BID lactobacillus acidophilus cap 1 Cap, Oral, Daily pantoprazole 40 mg inj 40 mg, IV Push, Daily QUEtiapine 25 mg tab 25 mg 1 Tab, Oral, O57GYns rifaXIMIN 550 mg tab 550 mg 1 [...] mg 1 Tab, Oral, Q4H Problem list: All Problems Hip pain, right / SNOMED CT 0200853692 / Confirmed At risk for sleep apnea / IMO 29346100 / Confirmed Bipolar I disorder, current or most recent episode depressed, with psychotic features with catatonia / SNOMED CT 43739392 / Confirmed Concussion / SNOMED CT 1885162868 / Confirmed concussion with loss of memory+ Disease caused by 2019 novel coronavirus / SNOMED CT 6036203502 / Confirmed Problem added by a rule: [id number]. Fall / SNOMED CT 4999286 / Confirmed H/O non-Hodgkin's lymphoma / SNOMED CT 2055010476 / Confirmed HTN (hypertension) / SNOMED CT 1533273548 / Confirmed Depression / SNOMED CT 0381165827 / Confirmed Numbness and tingling / SNOMED CT 1282289439 / Confirmed numbness and tingling right thigh area to toes Osteoarthritis / SNOMED CT 2450021250 / Confirmed Pain / SNOMED CT 85723130 / Confirmed right buttocks pain Leg pain, right / SNOMED CT 319103578 / Confirmed sleep apnea / SNOMED CT 332582891 / Confirmed Insomnia / SNOMED CT 804551534 / Confirmed Tremor / SNOMED CT 78492121 / Confirmed, Active Problems (16) At risk [...] Last Charted Minimum Maximum Temp 98.6 (JUN 13 04:00) 98.6 (JUN 13 04:00) 98.9 (JUN 12 11:38) Mon HR 102 (JUN 13 08:56) 102 (JUN 13 08:52) 117 (JUN 12 11:38) Resp Rate 19 (JUN 13 04:00) 18 (JUN 12 17:27) H 22 (JUN 12 11:38) SBP H 148 (JUN 13 04:00) 101 (JUN 12 19:42) H 149 (JUN 12 17:00) DBP 89 (JUN 13 04:00) 69 (JUN 12 19:42) 89 (JUN 13 04:00) MAP 103 (JUN 13 04:00) 76 (JUN 12 19:42) 106 (JUN 12 21:48) SpO2 94 (JUN 13 08:56) L 86 (JUN 12 11:38) 98 (JUN 12 20:36) General: Mild distress, On Optiflow , confused [...] HB L 10.9 (JUN 13) L 11.1 (MAY 14) L 10.7 (MAY 13) L 10.8 (MAY 12) HCT 34.3 (MAY 15) L 34.0 (MAY 14) L 32.8 (MAY 13) 34.3 (MAY 12) Plt 231 (JUN 13) 275 (MAY 14) 257 (MAY 13) 267 (MAY 12) Na 143 (MAY 15) 145 (MAY 14) H 148 (MAY 13) H 150 (MAY 12) K 3.6 (MAY 15) 3.8 (OCT 14) 3.8 (OCT 13) 3.7 (MAY 12) Cl H 114 (MAY 15) H 114 (MAY 14) H 119 (MAY 13) H 121 (MAY 12) CO2 22 (MAY 15) L 20 (MAY 14) L 20 (MAY 13) 21 (MAY 12) BUN H 60 (MAY 15) H 58 (MAY 14) H 49 (MAY 13) H 32 (MAY 12) Cr H 1.80 (MAY 15) H 2.00 (MAY 14) H 2.00 (MAY 13) H 1.50 (MAY 12) Glu R H 143 (MAY 15) H 124 (MAY 14) 100 (MAY 13) H 135 (MAY 12) Ca 8.4 (MAY 15) 8.9 (MAY 14) 9.2 (MAY 13) 8.9 (MAY 12) Lactic 1.0 (JUN 07) PT 11.4 (MAY 10) 11.4 (JUN 07) 11.4 (JUN 07) INR 1.1 (MAY 10) 1.1 (MAY 09) 1.1 (JUN 07) PTT 23.2 (JUN 07) AST H 87 (MAY 15) H 127 (MAY 13) H 128 (MAY 12) H 210 (MAY 11) ALT 24 (MAY 15) H 67 (MAY 13) H 98 (MAY 12) H 143 (MAY 11) ALK P 88 (MAY 15) 80 (MAY 13) 88 (MAY 12) 101 (MAY 11) T Bili 0.4 (MAY 15) 0.4 (MAY 13) 0.5 (MAY 12) 0.9 (MAY 11) PTN L 5.0 (MAY 15) L 5.2 (MAY 13) L 5.4 (MAY 12) L 5.9 (MAY 11) ALB L 2.3 (MAY 15) L 2.1 (MAY 13) L 2.2 (MAY 12) L 2.4 (MAY 11) Troponin C 0.845 (MAY 14) C 2.020 (MAY 12) C 2.700 (MAY 10) C 1.220 (MAY 10) . Blood Gases (Current Encounter/Past 24 Hours) No Blood Gas Results Found (Past 24 Hours) JUN 13 04:00 143 H 114 H 60 / H 143 3.6 22 H 1.80 \ JUN 13 04:00 \ L 10.9 / H 12.0 231 / 34.3 \ [id number] -- 06/07/2021 12:36 CR Intro Of Long GI Tube (06/12/2021 13:26) Result: FEEDING TUBE PLACEMENT UNDER FLUOROSCOPYFLUORO TIME: 12.3 minutes.FLUORO Films: 2.HISTORY: Malnutrition.ATTENDING RADIOLOGIST: Dr. Melendez.PHYSICIAN ADDICTION THERAPIST: Meg Madrigal PA-C.FINDINGS: The patient was brought [...] by Dr. Jacquie Clemente.Transcribed by Alyce Acosta PA-C.I have personally viewed, interpreted and dictated the examination. Ihave read and agree with the above final transcribed report. Chest x-ray 06/13 slight worsening in bilateral opacities with increased vascular markings consistent with pulmonary edema there is no change in left Port-A-Cath. Blood Gases (Current Encounter/Past 24 Hours) No [...] 06/07 urine cultures E. coli Current antibiotic atovaquone , rifaximin, cefazolin Impression and Plan Pulmonary Acute hypoxemic respiratory failure worse in setting of COVID-19 pneumonia pulm vascular congestion : and need for D5w for hypernatremia and rebecca Fully vaccinated per report PEs/ acute CTA [...] Elevated inflammatory markers Elevated procal GI Transaminitis etiology ( CHF and MS) primary team is following Hyperammonemia improved US RUQ: Stable mild right hydronephrosis [...] requirement of FiO2 however still on OptiFlow 60/50, acute encephalopathy with confusion, urinary tract infection was E. coli pt is slightly worse in reqs today and has lung failure, kidney failure and heart failure, i discussed with son Shawn on phone on 06/13 at 1157 am Supplemental O2 to maintain O2 saturations 90-94% discussed with RT Optiflow or NIPPV for increased work of breathing - currently optiflow 60/50 wean , additional order placed conscious proning is ideal however given pt confusion aborted Combivent inhaler Mucinex 1200mg BID IS/FV COVID order set Cardiology is following prior and now signed off pt on Coreg, asa and lisinopril ( however I stopped it due to rising renal fx) , now attending managing Worsening renal function- nephrology consulted 06/11, I will defer management for acute renal failure/hypernatremia changes to renal and primary team ID consulted Bactrim to atovaquone Abx Rocephin prior doxy Dexamethasone 10mg BID x5 days, then 10mg daily x5 days Post Remedesivir Actemra IV : given 06/10 Bactrim, stopped and pt started on atovaquone check strongyloides - remains pending Lactobacillus Monitor ammonia level if needed start rifaximin Pt was on lithium/ stopped - pt on seroquel Nutrition per primary Glycemic control per primary Prophylaxis: Protonix and Lovenox 115mg Q12H prior adjusted dose for worsening renal fx per pharm now to daily dosing Note if renal fx is improved this weekend then adjust lovenox 1 mg / kg q12 for PEs Full Code prognosis : guarded : high risk for deterioration and need for mechanical vent Disposition telemetry NO additional orders placed upon rounding today will see again wednesday please call if needed over weekend thanks valentina cct 32 mins documented in this encounter Plan of Treatment Not on file documented as of this encounter Visit Diagnoses Not on filedocumented in this encounter
--- OUTSIDE RECORDS SUMMARY | 2025-03-08 13:16 | XMS_ITS | Encounter Summary ---
Author Organization [employer] ([place], [place], [place], [place]) Address [address] [place] [address] Care Team Providers Care Social Human Services Assistants Name Role Phone Unavailable Primary Care Provider Unavailabl e Encounter Details Date Type Department Care Team (Late st Contact Info) Description 06/18/2021 Transcribed Document [facility] [place] [address] [place] [address] ProviderTg MD [address] [place] [address] Social History Tobacco Use Types Packs/Day Years Used Date Smoking Tobacco: Never Assessed Comments Unknown Sex and Gender Information Value Date Recorded Sex Assigned at Not on file Legal Sex Female 2:39 PM CDT Gender Identity Not on file Sexual Orientation Not on file documented as of this encounter Miscellaneous Notes * Cerner Conversion Note - Tg Jones MD - 06/18/2021 7:51 PM CDT Patient: SUDHA TIMMONS Age: 75 years Sex: Female : 1945 Associated Diagnoses: None Author: VALERIA BONE MD-INF Basic Information CC: respiratory failure HISTORY [...] to 1.8 ferritin 10K-> 6K -> 3K 06/18 - no Hx available ROS - not available PAST MEDICAL HISTORY Non-Hodgkin's lymphoma- finished therapy > 1 year ago per son Bipolar Dementia Hypertension Surgical History: Heart cath Bilateral breast reduction Cataract surgery Sciatic nerve surgery Social History: Lives with her 98 year old father. No tobacco, alcohol, or drug use. Family History: Mother in her 70's of unknown illness Review of Systems ROS reviewed as documented in chart Health Status Allergies: Allergic Reactions (Selected) Severity [...] Q3H, PRN: Tachycardia Lovenox: 115 mg, SubCutaneous, [id number] MiraLax: 17 Gram, Oral, Daily Pepcid: 20 mg, Oral, Daily Robitussin: 400 mg, Oral, Q4HInt SEROquel: 12.5 mg, Oral, BID, PRN: Agitation Zofran: 4 mg, IV Push, Q4H, PRN: Nausea aspirin: 81 mg, Feeding Tube, Daily atovaquone: 750 mg, Oral, BID cefTRIAXone: 2 Gram, 100 mL/Hr, IV Piggyback, [id number] glucagon: 1 mg, IntraMuscular, Q15Min, PRN: Other [...] micafungin: 100 mg, 100 mL/Hr, IV Piggyback, [id number] oxyCODONE: 5 mg, Oral, Q4H, PRN: Pain [...] Oral, BID cefTRIAXone 2 Gram, IV Piggyback, [id number] enoxaparin 60 mg/0.6 mL inj 115 mg 1.15 mL, SubCutaneous, S15EGuw famotidine 20 mg tab 20 mg 1 Tab, Oral, Daily guaiFENesin 200 mg/10 mL liq 400 mg 20 mL, Oral, Q4HInt insulin regular 1 unit/0.01 mL inj 3mL Scale A, SubCutaneous, Q6H lactobacillus acidophilus cap 1 Cap, Oral, Daily micafungin sodium 100 mg, IV Piggyback, A65GIts polyethylene glycol 3350 pwd 17 g pkt [...] Medical Hip pain, right / SNOMED CT 6746435507 / Confirmed At risk for sleep apnea / IMO 24018225 / Confirmed At risk for violence / IMO 56694092 / Confirmed Concussion / SNOMED CT 5597102035 / Confirmed concussion with loss of memory+ Disease caused by 2019 novel coronavirus / SNOMED CT 0067719434 / Confirmed Problem added by a rule: [id number]. Fall / SNOMED CT 7962726 / Confirmed HTN (hypertension) / SNOMED CT 4365487658 / Confirmed Depression / SNOMED CT 7468657698 / Confirmed Numbness and tingling / SNOMED CT 8235111051 / Confirmed numbness and tingling right thigh area to toes Osteoarthritis / SNOMED CT 2541246690 / Confirmed Pain / SNOMED CT 99476749 / Confirmed right buttocks pain Leg pain, right / SNOMED CT 526976716 / Confirmed sleep apnea / SNOMED CT 070768977 / Confirmed Insomnia / SNOMED CT 696115703 / Confirmed Tremor / SNOMED CT 47255954 / Confirmed, Active Problems (17) At risk [...] Minimum Maximum Temp 98.2 (JUN 18 18:00) 97.7 (JUN 17 20:36) 98.3 (JUN 18 01:00) Mon HR 105 (JUN 18 18:00) 100 (JUN 18 01:00) 111 (JUN 18 10:38) Resp Rate 18 (JUN 18 18:00) 18 (JUN 18 08:00) 20 (JUN 17 20:36) SBP 127 (JUN 18 18:00) 101 (JUN 18 08:00) H 151 (JUN 18 15:39) DBP 78 (JUN 18 18:00) 78 (JUN 18 18:00) H 93 (JUN 18 01:00) MAP 115 (JUN 18 15:39) 89 (JUN 18 08:00) 115 (JUN 18 15:39) SpO2 100 (JUN 18 18:00) L 93 (JUN 18 08:00) 100 (JUN 18 18:00) General: mild distress, On Optiflow . Eye: Pupils are equal, round and reactive to light, Normal conjunctiva. HENT: Normocephalic, Oral mucosa is moist. Neck: Supple, Non-tender. Respiratory: Lungs are clear to auscultation, Breath sounds are equal. Cardiovascular: Normal rate, Normal peripheral perfusion, Mild LE edema , tachycardia . Gastrointestinal: Soft, Non-tender, Normal bowel sounds. Musculoskeletal: No deformity. Integumentary: Warm, Dry. Neurologic: Alert, confused. Psychiatric: not Cooperative. Review / Management Results review: Labs (Last four charted values) WBC 8.2 (MAY 20) H 12.9 (OCT 19) H 14.3 (OCT 18) H 10.9 (OCT 17) HB L 8.9 (OCT 20) L 8.9 (OCT 19) L 9.4 (OCT 18) L 9.8 (OCT 17) HCT L 27.7 (OCT 20) L 27.7 (OCT 19) L 29.5 (OCT 18) L 31.3 (OCT 17) Plt 210 (MAY 20) 206 (OCT 19) 201 (MAY 19) 200 (MAY 18) Na 145 (OCT 20) 143 (OCT 19) 144 (OCT 18) H 151 (OCT 17) K 5.0 (OCT 20) 4.7 (OCT 19) 5.1 (OCT 18) 4.1 (OCT 17) Cl H 116 (MAY 20) H 115 (OCT 19) H 117 (OCT 18) H 122 (MAY 17) CO2 26 (OCT 20) 25 (OCT 19) 24 (OCT 18) 25 (OCT 17) BUN 21 (OCT 20) H 23 (OCT 19) H 26 (OCT 18) H 31 (OCT 17) Cr 0.60 (OCT 20) 0.70 (OCT 19) 0.80 (OCT 18) 0.90 (OCT 17) Glu R H 116 (MAY 20) H 141 (MAY 19) H 214 (MAY 18) H 159 (MAY 17) Ca 8.5 (MAY 20) L 8.2 (OCT 19) L 8.3 (OCT 18) 8.4 (OCT 17) Lactic 1.6 (OCT 19) 1.0 (OCT 09) PT 11.4 (MAY 10) 11.4 (OCT 09) 11.4 (OCT 09) INR 1.1 (MAY 10) 1.1 (OCT 09) 1.1 (OCT 09) PTT 23.2 (OCT 09) AST 29 (OCT 20) 36 (OCT 19) H 87 (OCT 15) H 127 (OCT 13) ALT 27 (OCT 20) 22 (OCT 19) 24 (OCT 15) H 67 (OCT 13) ALK P 110 (OCT 20) 130 (OCT 19) 88 (OCT 15) 80 (JUN 11) T Bili 0.4 (JUN 18) 0.3 (JUN 17) 0.4 (JUN 13) 0.4 (JUN 11) PTN L 4.5 (JUN 18) L 4.7 (JUN 17) L 5.0 (JUN 13) L 5.2 (JUN 11) ALB L 2.2 (JUN 18) L 2.1 (JUN 17) L 2.3 (JUN 13) L 2.1 (JUN 11) Troponin H 0.094 (JUN 18) H 0.147 (JUN 16) H 0.447 (JUN 14) H 0.438 (JUN 14) . Impression and Plan IMPRESSION -- Covid [...] started rocephin, atovaquone and micafungin -- Hypertension CXR worse to me - recheck in am continue micafungin and Rocephin for now documented in this encounter Plan of Treatment Not on file documented as of this encounter Visit Diagnoses Not on filedocumented in this encounter
--- OUTSIDE RECORDS SUMMARY | 2025-03-08 13:16 | XMS_ITS | Encounter Summary ---
Author Organization [employer] ([place], [place], [place], [place]) Address [address] [place] [address] Care Team Providers Care Experimental Technician Name Role Phone Unavailable Primary Care Provider Unavailabl e Encounter Details Date Type Department Care Team (Late st Contact Info) Description 06/18/2021 Transcribed Document [facility] [place] [address] [place] [address] ProvidergT MD [address] [place] [address] Social History Tobacco Use Types Packs/Day Years Used Date Smoking Tobacco: Never Assessed Comments Unknown Sex and Gender Information Value Date Recorded Sex Assigned at Not on file Legal Sex Female 2:39 PM CDT Gender Identity Not on file Sexual Orientation Not on file documented as of this encounter Miscellaneous Notes * Cerner Conversion Note - Historical ProviderMD - 06/18/2021 10:48 AM CDT Event Note Entered On: 06/18/2021 10:49 EDT Performed On: 06/18/2021 10:48 EDT by Radha Nunez RN-PATIENT CARE BEDSIDE NON-EXEMPT Event Note Event Date/Time : 06/18/2021 10:48 EDT Event Location : Assigned room Event Details : Other: mri Description of Event : Called MRI to f/u on brain MRI.. no answer Radha Nunez RN-PATIENT CARE BEDSIDE NON-EXEMPT - 06/18/2021 10:48 EDT documented in this encounter Plan of Treatment Not on file documented as of this encounter Visit Diagnoses Not on filedocumented in this encounter
--- OUTSIDE RECORDS SUMMARY | 2025-03-08 13:16 | XMS_ITS | Encounter Summary ---
Author Organization [employer] ([place], [place], [place], [place]) Address [address] [place] [address] Care Team Providers Care Locator Specialist Name Role Phone Unavailable Primary Care Provider Unavailabl e Encounter Details Date Type Department Care Team (Late st Contact Info) Description 06/12/2021 Transcribed Document [facility] [place] [address] [place] [address] ProviderTg MD [address] [place], [...] Conversion Note - Historical ProviderMD - 06/12/2021 11:08 AM CDT Attempt to Treat, OT Entered On: 06/12/2021 13:12 EDT Performed On: 06/12/2021 11:08 EDT by DUSTIN PINK OTR/Lachelle Attempt to Treat Unable to Treat Due To : Patient on hold Inability to Treat Comment : Hold Per DUNCAN Burton, pt vitals unstable, not medically appropriate for OT this date. Will continue to check back. Notification : DUSTIN Mckinney, OTR/L - 06/12/2021 13:11 EDT documented in this encounter Plan of Treatment Not on file documented as of this encounter Visit Diagnoses Not on filedocumented in this encounter
--- OUTSIDE RECORDS SUMMARY | 2025-03-08 13:16 | XMS_ITS | Encounter Summary ---
Author Organization [employer] ([place], [place], [place], [place]) Address [address] [place] [address] Care Team Providers Care Fiscal Agent Name Role Phone Unavailable Primary Care Provider Unavailabl e Encounter Details Date Type Department Care Team (Late st Contact Info) Description 06/08/2021 Transcribed Document [facility] [place] [address] [place] [address] ProviderTg MD [address] [place] [address] Social History Tobacco Use Types Packs/Day Years Used Date Smoking Tobacco: Never Assessed Comments Unknown Sex and Gender Information Value Date Recorded Sex Assigned at Not on file Legal Sex Female 2:39 PM CDT Gender Identity Not on file Sexual Orientation Not on file documented as of this encounter Miscellaneous Notes * Cerner Conversion Note - Historical ProviderMD - 06/08/2021 2:28 PM CDT Attempt to Treat, OT Entered On: 06/08/2021 14:38 EDT Performed On: 06/08/2021 14:28 EDT by ELSA CHILDS OTR/Lcahelle Attempt to Treat Unable to Treat Due To : Patient Unavailable Inability to Treat Comment : Pt having an ECHO. OT will follow up when schedule allows. Notification : ELSA Alcantara OTR/Lachelle - 06/08/2021 14:38 EDT documented in this encounter Plan of Treatment Not on file documented as of this encounter Visit Diagnoses Not on filedocumented in this encounter
--- OUTSIDE RECORDS SUMMARY | 2025-03-08 13:17 | XMS_ITS | Encounter Summary ---
Author Organization [employer] ([place], [place], [place], [place]) Address [address] [place] [address] Care Team Providers Care Chemical Processing Laborer Name Role Phone Unavailable Primary Care Provider Unavailabl e Encounter Details Date Type Department Care Team (Late st Contact Info) Description 06/22/2021 Transcribed Document [facility] [place] [address] [place] [address] ProviderTg MD [address] [place] [address] Social History Tobacco Use Types Packs/Day Years Used Date Smoking Tobacco: Never Assessed Comments Unknown Sex and Gender Information Value Date Recorded Sex Assigned at Not on file Legal Sex Female 2:39 PM CDT Gender Identity Not on file Sexual Orientation Not on file documented as of this encounter Miscellaneous Notes * Cerner Conversion Note - Tg ProviderMD - 06/22/2021 5:00 AM CDT Height and Weight, Routine Entered On: 06/22/2021 7:45 EDT Performed On: 06/22/2021 5:00 EDT by Ran Chew RN-PATIENT CARE BEDSIDE NON-EXEMPT Height and Weight, Routine Routine Weight Source : Bed scale Routine Weight Entry Format : Metric Routine Weight, Kilograms : 113 kg(Converted to: 249 lb 2 oz) Routine Weight, Grams Pediatric : 200 Gram Routine Weight Calculation : 113.2 kg Height Source : Stated Height Entry Format : [place] Height, Feet : 5 ft Height, Inches : 2 Inch Clinical Height : 157.48 cm Body Surface Area (BSA), Routine : 2.1 m2 Body Mass Index (BMI), Routine : 45.65 kg/m2 Ran Chew RN-PATIENT CARE BEDSIDE NON-EXEMPT - 06/22/2021 7:45 EDT documented in this encounter Plan of Treatment Not on file documented as of this encounter Visit Diagnoses Not on filedocumented in this encounter
--- OUTSIDE RECORDS SUMMARY | 2025-03-08 13:17 | XMS_ITS | Encounter Summary ---
Author Organization [employer] ([place], [place], [place], [place]) Address [address] [place] [address] Care Team Providers Care Quarantine Officer Name Role Phone Unavailable Primary Care Provider Unavailabl e Encounter Details Date Type Department Care Team (Late st Contact Info) Description 06/23/2021 Transcribed Document [facility] [place] [address] [place] [address] ProviderTg MD [address] [place] [address] Social History Tobacco Use Types Packs/Day Years Used Date Smoking Tobacco: Never Assessed Comments Unknown Sex and Gender Information Value Date Recorded Sex Assigned at Not on file Legal Sex Female 2:39 PM CDT Gender Identity Not on file Sexual Orientation Not on file documented as of this encounter Miscellaneous Notes * Cerner Conversion Note - Historical ProviderMD - 06/23/2021 9:00 AM CDT Attempt to Treat, OT Entered On: 06/23/2021 15:12 EDT Performed On: 06/23/2021 9:00 EDT by ROSALINDA CASAS OTR/Lachelle Attempt to Treat Unable to Treat Due To : Patient on hold Inability to Treat Comment : HOLD. Pt's hemoglobin low. Notification : ROSALINDA Guido OTR/Lachelle - 06/23/2021 15:11 EDT documented in this encounter Plan of Treatment Not on file documented as of this encounter Visit Diagnoses Not on filedocumented in this encounter
--- OUTSIDE RECORDS SUMMARY | 2025-03-08 13:17 | XMS_ITS | Encounter Summary ---
Author Organization [employer] ([place], [place], [place], [place]) Address [address] [place] [address] Care Team Providers Care Golf Professional Name Role Phone Unavailable Primary Care Provider Unavailabl e Encounter Details Date Type Department Care Team (Late st Contact Info) Description 07/21/2021 Transcribed Document [facility] Family Medicine [address] [place] [address] ProviderTg MD [address] [place] [address] Social History Tobacco Use Types Packs/Day Years Used Date Smoking Tobacco: Never Assessed Comments Unknown Sex and Gender Information Value Date Recorded Sex Assigned at Not on file Legal Sex Female 2:39 PM CDT Gender Identity Not on file Sexual Orientation Not on file documented as of this encounter Miscellaneous Notes * Cerner Conversion Note - Tg ProviderMD - 07/21/2021 2:11 PM NEEDLE 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 Pt actively tremoring and confused. Pt has a hx of Anxitey, Bipolar & HTN. Josephine Sepulveda RN-PATIENT CARE BEDSIDE NON-EXEMPT - 07/21/2021 22:48 EST Triage Date/Time : 07/21/2021 14:26 EST Josephine Sepulveda RN-PATIENT CARE BEDSIDE NON-EXEMPT - 07/21/2021 14:26 EST DCP GENERIC CODE Tracking Group : [facility] ED Tracking Acuity : 3 - Urgent Josephine Sepulveda RN-PATIENT CARE BEDSIDE NON-EXEMPT - 07/21/2021 14:26 EST Mode of Arrival : Stretcher Transported to ED by : Ambulance/ALS EMS Service : [facility] To Room Via : Stretcher Accompanied By : knitting machine operator ED Vital Signs : Document Height & Weight : Document ED Allergies : Document ED Reason for Visit : Document Tetanus Immunization : Less than 5 years Josephine Sepulveda RN-PATIENT CARE BEDSIDE NON-EXEMPT - 07/21/2021 14:26 EST Infectious Disease History Does patient have symptoms of COVID-19? : No Has the Patient Been Tested for COVID-19 in the last 14 days? : No, Patient stated Does the Patient state known exposure to a COVID-19 positive case in the last 14 days? : Unable to obtain or unsure Patient Vaccinated for COVID-19 : Unable to obtain or unsure Josephine Sepulveda RN-PATIENT CARE BEDSIDE NON-EXEMPT - 07/21/2021 14:26 EST Infectious Disease Risk Screening Grid Cough < 2 wks of unknown origin : NO Cough > 2 weeks : NO Blood in Sputum : NO Fever or self-reported Fever : NO Rash of unknown origin : NO Headache : NO Stiff neck : NO Night Sweats : NO Unexplained Weight Loss : NO Diarrhea (3 episode per day) : NO Josephine Sepulveda RN-PATIENT CARE BEDSIDE NON-EXEMPT - 07/21/2021 14:26 EST Physical contact outside [place] in the last 30 days : No Hospitalized in Foreign Country : No Infectious Disease History : Chicken pox/Shingles, Influenza, Measles, Mumps, Scarlet fever, Pertussis (Whooping cough) INF Disease TB Screening Calc : 0 INF Disease Recent Travel Calc : 0 Josephine Sepulveda RN-PATIENT CARE BEDSIDE NON-EXEMPT - 07/21/2021 14:26 EST Vital Signs ED Temperature Source : Oral Temperature Mode : Fahrenheit Temperature, Fahrenheit : 98.3 Deg F Clinical Temperature, C : 36.8 Deg C Oxygen Therapy Mode : Room air Peripheral Pulse Rate : 78 bpm Respiratory Rate : 18 Breaths/Min Systolic Blood Pressure : 106 mmHg Diastolic Blood Pressure : 49 mmHg (LOW) Oxygen Saturation : 99 % Josephine Sepulveda RN-PATIENT CARE BEDSIDE NON-EXEMPT - 07/21/2021 14:26 EST Allergy (As Of: 07/21/2021 14:30:24 EST) Allergies (Active) Anaprox Estimated Onset Date: Unspecified ; Reactions: Rash ; Created By: MANNY CHAVEZ RN; Reaction Status: Active ; Category: Drug ; Substance: Anaprox ; Type: Allergy ; Updated By: MANNY CHAVEZ RN; Reviewed Date: 07/21/2021 14:30 EST codeine Estimated Onset Date: Unspecified ; Created By: CASEY WOOD RN; Reaction Status: Active ; Category: Drug ; Substance: codeine ; Type: Allergy ; Updated By: CASEY WOOD RN; Reviewed Date: 07/21/2021 14:30 EST Latex Estimated Onset Date: Unspecified ; Reactions: Itching ; Created By: MANNY CHAVEZ RN; Reaction Status: Active ; Category: Other ; Substance: Latex ; Type: Allergy ; Updated By: MANNY CHAVEZ RN; Reviewed Date: 07/21/2021 14:30 EST naproxen Estimated Onset Date: Unspecified ; Created By: CASEY WOOD RN; Reaction Status: Active ; Category: Drug ; Substance: naproxen ; Type: Allergy ; Updated By: CASEY WOOD RN; Reviewed Date: 07/21/2021 14:30 EST Diagnosis Control ED (As Of: 07/21/2021 14:30:24 EST) Problems(Active) At risk for sleep apnea (IMO :74093199 ) Name of Problem: At risk for sleep apnea ; Recorder: SYSTEM, SYSTEM; Confirmation: Confirmed ; Classification: Medical ; Code: [id number] ; Last Updated: 08/05/2018 12:59 EST ; Life Cycle Date: 08/05/2018 ; Life Cycle Status: Active ; Vocabulary: IMO At risk for violence (IMO :28416010 ) Name of Problem: At risk for violence ; Recorder: SYSTEM, SYSTEM; Confirmation: Confirmed ; Classification: Medical ; Code: [id number] ; Last Updated: 06/15/2021 10:50 EDT ; Life Cycle Date: 06/15/2021 ; Life Cycle Status: Active ; Vocabulary: IMO Bipolar I disorder, current or most recent episode depressed, with psychotic features with catatonia (SNOMED CT :86401194 ) Name of Problem: Bipolar I disorder, current or most recent episode depressed, with psychotic features with catatonia ; Recorder: CASEY WOOD RN; Confirmation: Confirmed ; Classification: Patient Stated ; Code: [id number] ; Contributor System: PowerChart ; Last Updated: 08/12/2018 11:19 EST ; Life Cycle Date: 08/12/2018 ; Life Cycle Status: Active ; Vocabulary: SNOMED CT Concussion (SNOMED CT :3058884832 ) Name of Problem: Concussion ; Onset Date: 02/2016 ; Recorder: MANNY CHAVEZ RN; Confirmation: Confirmed ; Classification: Medical ; Code: [id number] ; Contributor System: PowerChart ; Last Updated: 04/05/2019 14:41 EDT ; Life Cycle Status: Active ; Vocabulary: SNOMED CT ; Comments: 04/05/2019 14:41 - Maryam Dacosta-CI concussion with loss of memory+ Depression (SNOMED CT :4770983363 ) Name of Problem: Depression ; Recorder: MANNY CHAVEZ RN; Confirmation: Confirmed ; Classification: Medical ; Code: [id number] ; Contributor System: Piano MediaChart ; Last Updated: 06/05/2016 14:00 EDT ; Life Cycle Date: 06/05/2016 ; Life Cycle Status: Active ; Vocabulary: SNOMED CT Disease caused by 2019 novel coronavirus (SNOMED CT :8133089721 ) Name of Problem: Disease caused by 2019 novel coronavirus ; Recorder: SYSTEM, SYSTEM; Confirmation: Confirmed ; Classification: Medical ; Code: [id number] ; Last Updated: 06/07/2021 13:36 EDT ; Life Cycle Date: 06/07/2021 ; Life Cycle Status: Active ; Vocabulary: SNOMED CT ; Comments: 06/07/2021 13:36 - SYSTEM, SYSTEM Problem added by a rule: [id number]. Fall (SNOMED CT :0538695 ) Name of Problem: Fall ; Onset Date: 02/2016 ; Recorder: MANNY CHAVEZ RN; Confirmation: Confirmed ; Classification: Medical ; Code: [id number] ; Contributor System: PowerChart ; Last Updated: 06/05/2016 14:21 EDT ; Life Cycle Date: 06/05/2016 ; Life Cycle Status: Active ; Vocabulary: SNOMED CT H/O non-Hodgkin's lymphoma (SNOMED CT :9752732428 ) Name of Problem: H/O non-Hodgkin's lymphoma ; Recorder: BRENNA PULIDO RN; Confirmation: Confirmed ; Classification: Patient Stated ; Code: [id number] ; Contributor System: PowerChart ; Last Updated: 08/05/2018 12:49 EST ; Life Cycle Date: 08/05/2018 ; Life Cycle Status: Active ; Vocabulary: SNOMED CT Hip pain, right (SNOMED CT :2812114278 ) Name of Problem: Hip pain, right ; Recorder: MANNY CHAVEZ RN; Confirmation: Confirmed ; Classification: Medical ; Code: [id number] ; Contributor System: PowerChart ; Last Updated: 06/05/2016 14:01 EDT ; Life Cycle Date: 06/05/2016 ; Life Cycle Status: Active ; Vocabulary: SNOMED CT HTN (hypertension) (SNOMED CT :5666007474 ) Name of Problem: HTN (hypertension) ; Recorder: MANNY CHAVEZ RN; Confirmation: Confirmed ; Classification: Medical ; Code: [id number] ; Contributor System: PowerChart ; Last Updated: 06/05/2016 14:00 EDT ; Life Cycle Date: 06/05/2016 ; Life Cycle Status: Active ; Vocabulary: SNOMED CT Insomnia (SNOMED CT :062498464 ) Name of Problem: Insomnia ; Recorder: MANNY CHAVEZ RN; Confirmation: Confirmed ; Classification: Medical ; Code: [id number] ; Contributor System: Piano MediaChart ; Last Updated: 06/05/2016 14:00 EDT ; Life Cycle Date: 06/05/2016 ; Life Cycle Status: Active ; Vocabulary: SNOMED CT Leg pain, right (SNOMED CT :607032452 ) Name of Problem: Leg pain, right ; Recorder: MANNY CHAVEZ RN; Confirmation: Confirmed ; Classification: Medical ; Code: 916289505 ; Contributor System: PowerChart ; Last Updated: 06/05/2016 14:01 EDT ; Life Cycle Date: 06/05/2016 ; Life Cycle Status: Active ; Vocabulary: SNOMED CT Numbness and tingling (SNOMED CT :8078760464 ) Name of Problem: Numbness and tingling ; Recorder: MANNY CHAVEZ RN; Confirmation: Confirmed ; Classification: Medical ; Code: 7662011381 ; Contributor System: PowerChart ; Last Updated: 04/05/2019 14:41 EDT ; Life Cycle Status: Active ; Vocabulary: SNOMED CT ; Comments: 04/05/2019 14:41 - Salud Dacostaa-CI numbness and tingling right thigh area to toes Osteoarthritis (SNOMED CT :8706117304 ) Name of Problem: Osteoarthritis ; Recorder: MANNY CHAVEZ, DUNCAN; Confirmation: Confirmed ; Classification: Medical ; Code: [id number] ; Contributor System: Piano MediaChart ; Last Updated: 06/05/2016 14:03 EDT ; Life Cycle Date: 06/05/2016 ; Life Cycle Status: Active ; Vocabulary: SNOMED CT Pain (SNOMED CT :07519387 ) Name of Problem: Pain ; Recorder: MANNY CHAVEZ RN; Confirmation: Confirmed ; Classification: Medical ; Code: 68718642 ; Contributor System: PowerChart ; Last Updated: 04/05/2019 14:42 EDT ; Life Cycle Status: Active ; Vocabulary: SNOMED CT ; Comments: 04/05/2019 14:42 - Maryam Dacosta-LUIS FERNANDO right buttocks pain sleep apnea (SNOMED CT :552813756 ) Name of Problem: sleep apnea ; Recorder: Amina Ordonez RN; Confirmation: Confirmed ; Classification: Medical ; Code: 946021956 ; Contributor System: PowerChart ; Last Updated: 05/20/2017 10:23 EDT ; Life Cycle Date: 06/12/2016 ; Life Cycle Status: Active ; Vocabulary: SNOMED CT Tremor (SNOMED CT :17552557 ) Name of Problem: Tremor ; Recorder: MANNY CHAVEZ RN; Confirmation: Confirmed ; Classification: Medical ; Code: 30889738 ; Contributor System: Piano MediaChart ; Last Updated: 06/05/2016 14:17 EDT ; Life Cycle Date: 06/05/2016 ; Life Cycle Status: Active ; Vocabulary: SNOMED CT Diagnoses(Active) [place] ingestion Date: 07/21/2021 ; Diagnosis Type: Reason For Visit ; Confirmation: Complaint of ; Clinical Dx: [place] ingestion ; Classification: Medical ; Clinical Service: Non-Specified ; Code: PNED ; Probability: 0 ; Diagnosis Code: [id number] ED Height and Weight Height Source : Estimated Height Entry Format : [place] Height, Feet : 5 ft(Converted to: 152 cm, 60 Inch) Height, Inches : 8 Inch(Converted to: 0 ft 8 Inch, 20.32 cm) Clinical Height : 172.72 cm Weight Source, ED : Critical estimated dosing weight Weight Entry Format : [place] Weight, Pounds : 249 lb Clinical Dosing Weight : 113.18 kg Body Surface Area (BSA) : 2.25 m2 Body Mass Index : 37.9 kg/m2 (HI) [place] Body Weight (IBW) : 63.45 kg Josephine Sepulveda RN-PATIENT CARE BEDSIDE NON-EXEMPT - 07/21/2021 14:26 EST Electronically signed by [facility] Conversion Dial Screw Assembler Cerner at 12/18/2022 9:10 AM CDT documented in this encounter Plan of Treatment Not on file documented as of this encounter Visit Diagnoses Not on filedocumented in this encounter
--- OUTSIDE RECORDS SUMMARY | 2025-03-08 13:17 | XMS_ITS | Encounter Summary ---
Author Organization [employer] ([place], [place], [place], [place]) Address [address] [place] [address] Care Team Providers Care Dress Finisher Name Role Phone Unavailable Primary Care Provider Unavailabl e Encounter Details Date Type Department Care Team (Late st Contact Info) Description 07/21/2021 Transcribed Document [facility] [address] [place] [address] ProviderTg MD [address] [place], [place] [id number] Social History Tobacco Use Types Packs/Day Years Used Date Smoking Tobacco: Never Assessed Comments Unknown Sex and Gender Information Value Date Recorded Sex Assigned at Not on file Legal Sex Female 2:39 PM CDT Gender Identity Not on file Sexual Orientation Not on file documented as of this encounter Miscellaneous Notes * Cerner Conversion Note - Historical ProviderMD - 07/21/2021 2:11 PM 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 [place] Suicide Severity Rating Scale (C-SSRS) Entered On: 07/21/2021 14:30 EST Performed On: 07/21/2021 14:30 EST by Josephine Sepulveda RN-PATIENT CARE BEDSIDE NON-EXEMPT [place] Suicide Severity Rating Scale (C-SSRS) CSSRS Past Month Wish to be : No CSSRS Past Month Suicidal Thoughts : No CSSRS Lifetime Suicide Behavior : No Suicide Severity Rating Score : 0 Suicide Severity Rating : No Additional Care Required at this time Josephine Sepulveda RN-PATIENT CARE BEDSIDE NON-EXEMPT - 07/21/2021 14:30 EST documented in this encounter Plan of Treatment Not on file documented as of this encounter Visit Diagnoses Not on filedocumented in this encounter
--- OUTSIDE RECORDS SUMMARY | 2025-03-08 13:17 | XMS_ITS | Encounter Summary ---
Author Organization [employer] ([place], [place], [place], [place]) Address [address] [place] [address] Care Team Providers Care Cook Pressure Name Role Phone Unavailable Primary Care Provider Unavailabl e Encounter Details Date Type Department Care Team (Late st Contact Info) Description 07/21/2021 Transcribed Document [facility] [place] Family Medicine [address] [place] [address] ProviderTg MD [address] [place] [address] Social History Tobacco Use Types Packs/Day Years Used Date Smoking Tobacco: Never Assessed Comments Unknown Sex and Gender Information Value Date Recorded Sex Assigned at Not on file Legal Sex Female 2:39 PM CDT Gender Identity Not on file Sexual Orientation Not on file documented as of this encounter Miscellaneous Notes * Cerner Conversion Note - Tg ProviderMD - 07/21/2021 9:[address] MANAGER Patient: SUDHA TIMMONS Age: 75 years Sex: Female : 1945 Associated Diagnoses: None Author: LAURE COVINGTON, DO-INT Basic Information Source of history: Medical record. Chief Complaint 07/21/2021 14:26 EST Srrive via [facility] from [place] with a possible [place] Toxicity. Pt actively tremoring and confused. Pt has a hx of Anxitey, Bipolar & HTN. History of Present Illness Patient is a 75-year-old female with bipolar disorder on lithium, anxiety, depression, hypertension, non-Hodgkin's lymphoma, who presents via EMS from [place] with altered mental status. Information gathered from chart review / altered mental status. Known normal was yesterday. Altered mental status began yesterday and continue to worsen. Patient reportedly began actively tremoring and was confused. Patient had decreased responsiveness. [place] had concern for lithium toxicity. Review of Systems Unable to obtain ROS: due to altered mental status. Unable to obtain: Due to altered mental status. Health Status Allergies: Allergic Reactions (Selected) Severity Not Documented Anaprox- Rash. Codeine- No reactions were documented. Latex- Itching. Naproxen- No reactions were documented., Allergies (4) Active Reaction Anaprox Rash codeine None Documented Latex Itching naproxen None Documented Current medications: (Selected) Inpatient Medications Ordered Dulcolax Laxative: 5 mg, Oral, Daily, PRN: Constipation DuoNeb 0.5 mg-2.5 mg/3 mL inhalation solution: 3 mL, Nebulized Inhalation, RT_Q4H, PRN: Shortness of Breath MiraLax: 17 Gram, Oral, Daily, PRN: Constipation Normal Saline Flush: 10 mL, IV Push, Q12H Normal Saline Flush: 10 mL, IV Push, See Comment, PRN: IV Use Pepcid: 20 mg, Oral, Q12H Phenergan: 6.25 mg, IntraVENous, Q6H, PRN: Nausea Sodium Chloride 0.9% intravenous solution 1,000 mL: 100 mL/Hr, IntraVENous Tylenol: 650 mg, Oral, Q4H, PRN: Fever Tylenol: 650 mg, Oral, Q4H, PRN: Pain (Mild 1-3) Zofran: 4 mg, IV Push, Q4H, PRN: Nausea melatonin: 5 mg, Oral, At Bedtime, PRN: Insomnia Prescriptions Prescribed Colace 100 mg oral capsule: 1 Cap, Oral, BID, PRN: as needed for constipation, 20 Cap, 0 Refill(s) Coreg 12.5 mg oral tablet: 1 Tab, Oral, BID, 60 Tab, 0 Refill(s) Depakote 250 mg oral delayed release tablet: 1 Tab, Oral, BID, 60 Tab, 0 Refill(s) predniSONE 10 mg oral tablet: 1 Tab, Oral, Daily, for 1 Day(s), 1 Tab, 0 Refill(s) predniSONE 5 mg oral tablet: 1 Tab, Oral, Daily, for 5 Day(s), start 06/30, 5 Tab, 0 Refill(s) Documented Medications Documented Aspirin Low Dose 81 mg oral delayed release tablet: 1 Tab, Oral, Daily, 0 Refill(s) Multiple Vitamins oral tablet: 1 Tab, Oral, Daily, 30 Tab, 0 Refill(s) QUEtiapine 300 mg oral tablet: 1 Tab, Oral, At Bedtime, 30 Tab, 0 Refill(s) Vitamin B12 1000 mcg oral tablet: 1 Tab, Oral, Daily, 30 Tab, 0 Refill(s) atorvastatin 40 mg [...] Oral, Daily, 30 Cap, 0 Refill(s), Medications (12) Active Scheduled: (2) #NaCl 0.9% *FLUSH* inj 10 mL 10 mL, IV Push, Q12H famotidine 20 mg tab 20 mg 1 Tab, Oral, Q12H Continuous: (1) NaCl 0.9% 1,000 mL 1,000 mL, IntraVENous, 100 mL/Hr PRN: (9) #NaCl 0.9% *FLUSH* inj 10 mL 10 mL, IV Push, See Comment acetaminophen 325 mg tab 650 mg 2 Tab, Oral, Q4H acetaminophen 325 mg tab 650 mg 2 Tab, Oral, Q4H albuterol-ipratropium inh 3 mL 3 mL, Nebulized Inhalation, RT_Q4H bisacodyl EC 5 mg tab 5 mg 1 Tab, Oral, Daily melatonin 5 mg tab 5 mg 1 Tab, Oral, At Bedtime ondansetron 4 mg/2 mL inj 4 mg 2 mL, IV Push, Q4H polyethylene glycol 3350 pwd 17 g pkt 17 Gram 1 Packet, Oral, Daily promethazine 25 mg/1 mL inj 6.25 mg 0.25 mL, IntraVENous, Q6H , Home Medications (17) Active Aspirin Low Dose 81 mg oral delayed release tablet 81 mg = 1 Tab, Oral, Daily atorvastatin 40 mg oral tablet 40 mg = 1 Tab, Oral, At Bedtime Colace 100 mg oral capsule 100 mg = 1 Cap, PRN, Oral, BID Coreg 12.5 mg oral tablet 12.5 mg = 1 Tab, Oral, BID Depakote 250 mg oral delayed release tablet 250 mg = 1 Tab, Oral, BID furosemide 20 mg oral tablet 20 mg = 1 Tab, Oral, EveryOtherDay hydrOXYzine pamoate 25 mg oral capsule 25 mg = 1 Cap, PRN, Oral, At Bedtime lisinopril 2.5 mg oral tablet 2.5 mg = 1 Tab, Oral, Daily lithium 300 mg oral capsule 300 mg = 1 Cap, Oral, BID Multiple Vitamins oral tablet 1 Tab, Oral, Daily pantoprazole 40 mg oral delayed release tablet 40 mg = 1 Tab, Oral, Daily polyethylene glycol 3350 oral powder for reconstitution 17 Gram, Oral, Daily potassium chloride 10 mEq oral capsule, extended release 10 mEq = 1 Cap, Oral, Daily predniSONE 10 mg oral tablet 10 mg = 1 Tab, Oral, Daily predniSONE 5 mg oral tablet 5 mg = 1 Tab, Oral, Daily QUEtiapine 300 mg oral tablet 300 mg = 1 Tab, Oral, At Bedtime Vitamin B12 1000 mcg oral tablet 1,000 mcg = 1 Tab, Oral, Daily Problem list: Medical HTN (hypertension) / SNOMED CT 0364991023 / Confirmed Depression / SNOMED CT 6105496029 / Confirmed Insomnia / SNOMED CT 901803771 / Confirmed Hip pain, right / SNOMED CT 1583658655 / Confirmed Pain / SNOMED CT 31482947 / Confirmed right buttocks pain Leg pain, right / SNOMED CT 480413347 / Confirmed Numbness and tingling / SNOMED CT 5525140694 / Confirmed numbness and tingling right thigh area to toes Osteoarthritis / SNOMED CT 7735915108 / Confirmed Concussion / SNOMED CT 8640645430 / Confirmed concussion with loss of memory+ Tremor / SNOMED CT 70203796 / Confirmed Fall / SNOMED CT 1639745 / Confirmed sleep apnea / SNOMED CT 442912846 / Confirmed At risk for sleep apnea / IMO 43027358 / Confirmed Disease caused by 2019 novel coronavirus / SNOMED CT 4448485086 / Confirmed Problem added by a rule: [id number]. At risk for violence / IMO 21595846 / Confirmed, Active Problems (17) At risk for sleep apnea At risk for violence Bipolar I disorder, current or most recent episode depressed, with psychotic features with catatonia Concussion Depression Disease caused by 2019 novel coronavirus Fall H/O non-Hodgkin's lymphoma Hip pain, right HTN (hypertension) Insomnia Leg pain, right Numbness and tingling Osteoarthritis Pain sleep apnea Tremor Histories Past Medical History: Past medical history reviewed., As listed above in HPI Family History: Family history reviewed., Unable to obtain, altered mental status Procedure history: heart cath in 2007 at [...] No Employment/School 06/05/2016 Status: Retired Previous employment/school: [employer] Home/Environment 06/05/2016 Lives with: 94 y/o father [...] 24 hrs) Last Charted Minimum Maximum Temp 98.3 (JUL 21 14:26) 98.3 (JUL 21 14:26) 98.3 (JUL 21 14:26) Mon HR 100 (JUL 21 18:00) 100 (JUL 21 18:00) 100 (JUL 21 18:00) Periph HR 78 (JUL 21 14:) 78 (JUL 21:) 78 (JUL 21:) Resp Rate H 21 (JUL 21 18:00) 18 (JUL 21:) H 21 (JUL 21 18:00) SBP 106 (JUL 21 14:) 106 (JUL 21 14:) 106 (JUL 21:) DBP L 49 (JUL 21:) L 49 (JUL 21:) L 49 (JUL 21:) SpO2 95 (JUL 21 18:00) L 79 (JUL 21 15:01) 99 (JUL 21:) General: No acute distress, Alert, confusion. Eye: Pupils are equal, round and reactive to light, Extraocular movements are intact, Normal conjunctiva. HENT: Normocephalic, Normal hearing, Oral mucosa is moist. Neck: Supple, Non-tender, No lymphadenopathy. Respiratory: Lungs are clear to auscultation, Respirations are non-labored, Breath sounds are equal, Symmetrical chest wall expansion, No chest wall tenderness. Cardiovascular: Normal rate, Regular rhythm, No murmur, Good pulses equal in all extremities, No edema. Gastrointestinal: Soft, Non-tender, Non-distended, Normal bowel sounds, No organomegaly. Musculoskeletal: No tenderness, No swelling, No deformity. Integumentary: Warm, Dry, Intact. Neurologic: Alert, Normal motor function, No focal deficits, Not oriented. Psychiatric: Cooperative, Not appropriate mood & affect. Review / Management Results review: Labs (Last four charted values) WBC 9.0 (JUL 21) HB L 9.3 (JUL 21) HCT L 29.2 (JUL 21) Plt 246 (JUL 21) Na 141 (JUL 21) K 4.9 (JUL 21) Cl H 113 (JUL 21) CO2 23 (JUL 21) BUN 16 (JUL 21) Cr 1.00 (JUL 21) Glu R 74 (JUL 21) Ca 8.6 (JUL 21) Lactic 0.5 (JUL 21) AST 19 (JUL 21) ALT 19 (JUL 21) ALK P H 148 (JUL 21) T Bili 0.5 (JUL 21) PTN L 4.7 (JUL 21) ALB L 2.9 (JUL 21) Troponin 0.019 (JUL 21) , JUL 21 14:40 141 H 113 16 / 74 4.9 23 1.00 \ JUL 21 14:40 \ L 9.3 / 9.0 246 / L 29.2 \. Radiology results Radiology Results (Last 48 hours) [id number] -- 07/21/2021 20:00 CT Head WO (07/21/2021 15:00) Result: HEAD CTHISTORY: Altered mental status.COMPARISON: NoneTECHNIQUE: Multiple axial CT images were performed from the foramenmagnum to the vertex without contrast. Coronal reformatted images werealso obtained.This study was performed with techniques to keep radiationdoses as low as reasonably achievable, (ALARA). Individualized dosereduction techniques using automated exposure control or adjustment ofmA and/or kV according to the patient size were employed.FINDINGS: The ventricles are normal in size. There is no evidence ofhemorrhage. No masses are identified. No abnormal extra-axial fluidcollection is seen. There is no evidence of shift of the midlinestructures. Images of the sinuses reveal no evidence of mucosalthickening. No bony abnormality is seen on the bone window images.IMPRESSION: No acute intracranial abnormality.Images reviewed, interpreted, and dictated by Dr. Jacquie Clemente.Transcribed by Álvaro Cavazos(Chris).I have personally viewed, interpreted and dictated the examination. Ihcecilio read and agree with the above final transcribed report. CR Chest 1 Vw Portable (07/21/2021 15:01) Result: PORTABLE CHEST 07/21/2021 2:40 PM HISTORY: Cough.COMPARISON: June 23, 2021.FINDINGS: The feeding tube has been removed. There has been no change inthe right Port-A-Cath. The heart size is normal. Patchy bilateralopacities are not significantly changed. There is no pneumothorax. Theosseous structures are unremarkable.IMPRESSION: Patchy bilateral opacities are not significantly changed.Images reviewed, interpreted, and dictated by Dr. Jacquie Clemente.Transcribed by Álvaro Cavazos(Chris).I have personally viewed, interpreted and dictated the examination. Ihave read and agree with the above final transcribed report. Impression and Plan 07/21/2021 Chart reviewed, SCDs DVT prophylaxis, Pepcid GI prophylaxis, n.p.o. until more alert Full code Altered mental status 2/2 lithium toxicity, opiate use; history of bipolar disorder on lithium, depression, anxiety CT brain without contrast showed no acute intracranial abnormalities CR chest showed patchy bilateral opacities PT/OT/ST ER DR discussed patient with poison control for lithium toxicity, lithium level greater than 3, however poison control needed a precise level for specific recommendations. Labs were sent to for specific lithium level. Recommended IV hydration Central line placed by ER IV fluid resuscitation; already received 2 L, continue UDS positive for opiates; no Narcan given Fall precautions, seizure precautions Ativan prn seizures Neurochecks every 2 hours Monitor renal function closely with lithium toxicity; currently within normal limits May benefit from neuro/psych consult a.m. if no improvement Hypotension with history of hypertension Hold antihypertensive medications Maintain MAP greater than 65 Macrocytic anemia; history of Vitamin B12 deficiency B12/folate levels for eval vs. drug induced Monitor H&H and transfuse PRBCs if hemoglobin less than 7 History of non-Hodgkin's lymphoma GERD Home medications documented in this encounter Plan of Treatment Not on file documented as of this encounter Visit Diagnoses Not on filedocumented in this encounter
--- OUTSIDE RECORDS SUMMARY | 2025-03-08 13:17 | XMS_ITS | Encounter Summary ---
Author Organization [employer] ([place], [place], [place], [place]) Address [address] [place] [address] Care Team Providers Care Dish Carrier Name Role Phone Unavailable Primary Care Provider Unavailabl e Encounter Details Date Type Department Care Team (Late st Contact Info) Description 06/23/2021 Transcribed Document [facility] [place] [address] [place] [address] ProviderTg MD [address] [place] [address] Social History Tobacco Use Types Packs/Day Years Used Date Smoking Tobacco: Never Assessed Comments Unknown Sex and Gender Information Value Date Recorded Sex Assigned at Not on file Legal Sex Female 2:39 PM CDT Gender Identity Not on file Sexual Orientation Not on file documented as of this encounter Miscellaneous Notes * Cerner Conversion Note - Tg ProviderMD - 06/23/2021 12:25 PM CDT On Going Discharge Planning Entered On: 06/23/2021 12:28 EDT Performed On: 06/23/2021 12:25 EDT by Patsy Koehler V, Traditional Maori Health Practitioner [employer] Care Management Progress Note Discharge Arrangements : Patient Post-Acute Information Patient Name: SUDHA TIMMONS Gender: Female : [birth year] Age: 75 Years No Post-Acute Placement(s) Listed No Post-Acute Service(s) Listed No [place] Referral(s) Listed Discharge Options Discussed with Patient : DME, Home Health, Short term rehabilitation Barriers to Discharge Identified : Clinical Condition of Patient Patient Discharge Goal : halfway facility List/Info Provided Pt/Fam/Support Person : Inpatient rehabilitation facility, halfway facilities Is the Patient Meeting Medical Necessity : Yes Physician Agreeable to Move Forward with D/C Plan? : Yes Did you Attend Multidisciplinary Rounds? : Yes Patsy Koehler V, Traditional Maori Health Practitioner [employer] - 06/23/2021 12:25 EDT Narrative Progress Note Narrative Progress Note : HD#15, ELOS-5 RSR-moderate, Boost-5 Per MD, patient having epistaxis around CorPak site. Ongoing acute blood loss anemia requiring blood transfusion yesterday and today due to HGB of 6.3. Speech to re-evaluate to see if CorPak and tube feeding can be stopped and resumed on oral diet. Mentation is significantly improved with Depakote 250 mg twice daily. CM will send updated clinical/therapy notes for rehab placement once Corpak has been discontinued. No restraints or mittens now. CM to follow Historical Progress Note : HD#12, ELOS-5 RSR-moderate, Boost-5 COVID+. On room air per RN. 2L. Patient Still has mittens. Corpak for TF. ST evaluated and recommended pureed diet and TF. On IV zosyn. HGB at 8.9. Barriers to rehab placement: mittens and corpak and no PT/OT evaluations. CM has sent rehab referrals via [facility]. CM to follow. oes not speak or follow any other commands. Current on EEG monitor. She has been hemodynamically stable with Tmax 99.8. Currently tolerating TF via corpak. No output documented for patient. Patsy Koehler V Traditional [employer]ori Health Practitioner [employer] - 06/20/21 11:50:46 HD#12, ELOS-5 RSR-moderate, Boost-5 COVID+. On room air per RN. Not following many commands and doesn't speak. Left wrist restraints and right mitten to prevent pulling of corpak. Neurology following. On continuous EEG monitoring. On IV zosyn. PT/OT evaluations still pending. Restraints, mittens, corpak and pending PT/OT evals are rehab placement barriers. CM to follow. DCP-SNF when medically ready for dc. Patsy Koehler V, Traditional Maori Health Practitioner [employer] - 06/20/21 11:57:36 HD#12, ELOS-5 RSR-moderate, Boost-5 COVID+. On room air per RN. Not following many commands and doesn't speak. Left wrist restraints and right mitten to prevent pulling of corpak. Neurology following. Patient was on continuous EEG monitoring. On IV zosyn. HGB was 8.9. Barriers to rehab placement: mittens, restraints and corpak. and no PT/OT evaluations. CM has sent rehab referrals via [facility]. CM to follow. Patsy Koehler V, Traditional Maori Health Practitioner [employer] - 06/20/21 11:54:35 HD#11, ELOS-5 RSR-moderate, Boost-5 COVID+. On 2L NC. Still has mittens. Corpak for TF. ST evaluated and recommended pureed diet and TF. On IV zosyn. HGB at 8.9. Barriers to rehab placement: mittens and corpak and no PT/OT evaluations. CM has sent rehab referrals via [facility]. CM to follow. Patsy Koehler V, Traditional Maori Health Practitioner [employer] - 06/19/21 15:03:50 HD#10, ELOS-5 RSR-moderate, Boost-5 COVID+.Now on 4L NC. Patient awake, but remains confused and unable to converse appropriately per MD. Still in restraints. Patient passed her FEES. Diet advance to puree. Hopefully, her corpak will be discontinued soon. Brain MRI today. Still on IV abx. WBC and LDH trending down. CM sent updated clinical[facility]therapy notes [facility] for possible rehab placement. CM to follow. Patsy Koehler V, Traditional Maori Health Practitioner [employer] - 06/18/21 15:20:04 HD#9, ELOS-5 RSR-moderate, Boost-5 COVID+. On 6L HFNC. Ongoing confusion. Restraints continued. On IV rocephin, micafuntgin and dexamethazone. Tolerating TF via corpak. [facility] for rehab pending medical progress. Patsy Koehler V, Traditional Maori Health Practitioner [employer] - 06/17/21 12:01:09 HD#8, ELOS-5 RSR-moderate, Boost-5 COVID+. On 5L HFNC. Ongoing confusion and attempting to pull at lines. In restraints. Leukocytosis worsening, LDH and d-dimer trending up, ferritin trending down. Tolerating TF via corpak. MD plans to get a neurology consult due to pt's confusion. CM to follow DCP-SNF for rehab pending medical progress. Patsy Koehler V Traditional Maori Health Practitioner [facility] - 06/16/21 13:18:40 HD#5, ELOS-5 RSR-moderate, Boost-[address] Narda Sommer, patient with further worsening of respiratory failure. Tachycardia. Patient is criticcally ill and may need intubation. CR chest today. Patsy Koehler V Traditional Maori Health Practitioner [facility] - 06/13/21 09:26:38 HD#5, ELOS-5 RSR-moderate, Boost-[address] Narda Sommer, patient with further worsening of respiratory failure. Tachycardia. Patient is critically ill and may need intubation. CR chest today showed Slightly worsening bilateral opacities. Pulmonary edema is not excluded. Corpak placed. CM to follow. DCP-pending on patient's medical progress. Patsy Koehler V Traditional Maori Health Practitioner [facility] - 06/13/21 09:29:02 HD#4, ELOS-5 RSR-moderate, Boost-5 [...] transfer to the ICU. CM to follow. DCP-[facility] vs SNF when medically ready. Patsy Koehler V Traditional Maori Health Practitioner [facility] - 06/12/21 12:12:00 HD#4, ELOS-5 RSR-moderate, Boost-5 COVID+. Patient currently [...] father and adult son. Patsy Koehler V Traditional Maori Health Practitioner [facility] - 06/11/21 12:10:01 HD#4, ELOS-5 RSR-moderate, Boost-5 Patient currently on optiflow FiO2 70%, with continued increased confusion and fidgeting in the bed. ID and Pulm consulted and are making med adjustments. Per RN, patient with tachycardia the other night. DCP-[facility] pending medical progress. Patient lives with her 98 yo father and adult son. Patsy Koehler V Traditional Maori Health Practitioner [employer] - 06/11/21 10:00:55 HD#3, ELOS-not recorded, RSR-moderate, Boost-4 Per MD, patient is clinical deconditioning from NC to optiflow at 60% Fi02 with increased confusion. ID, Cardiology and Pulm consulted. HIGH RISK FOR INTUBATION. Patient had a abnormal ECHO with PE. On IV cefazolin and IV steroids. CM sent referrals to [facility] and [facility] due to being COVID+ for rehab. CM to follow. Patsy Koehler V Traditional Maori Health Practitioner [employer] - 06/10/21 10:25:43 HD#2, ELOS-not recorded, RSR-moderate, Boost-4 CM sent rehab referrals to [facility] and [facility] since they accept COVID+ patients. Currently patient is on 60% Fi02. PEr MD, patient's respiratory status is worsening. CM to follow pt's progress for dc planning. Patsy Koehler Social Worker [employer] - 06/09/21 16:10:00 Patsy Koehler V Traditional Maori Health Practitioner [employer] - 06/23/2021 12:25 EDT documented in this encounter Plan of Treatment Not on file documented as of this encounter Visit Diagnoses Not on filedocumented in this encounter
--- OUTSIDE RECORDS SUMMARY | 2025-03-08 13:17 | XMS_ITS | Encounter Summary ---
Author Organization [employer] ([place], [place], [place], [place]) Address [address] [place] [address] Care Team Providers Care Brazing Machine Operator Name Role Phone Unavailable Primary Care Provider Unavailabl e Encounter Details Date Type Department Care Team (Late st Contact Info) Description 06/23/2021 Transcribed Document [facility] [place] [address] [place] [address] ProviderTg MD [address] [place] [address] Social History Tobacco Use Types Packs/Day Years Used Date Smoking Tobacco: Never Assessed Comments Unknown Sex and Gender Information Value Date Recorded Sex Assigned at Not on file Legal Sex Female 2:39 PM CDT Gender Identity Not on file Sexual Orientation Not on file documented as of this encounter Miscellaneous Notes * Cerner Conversion Note - Tg ProviderMD - 06/23/2021 5:00 AM CDT Chart Check - Review Order Profile Entered On: 06/23/2021 4:12 EDT Performed On: 06/23/2021 5:00 EDT by Ran Chew RN-PATIENT CARE BEDSIDE NON-EXEMPT Chart Check Powerplans Initiated/Discontinued as Appropriate : Yes All Active Orders Reviewed : Yes Ran Chew RN-PATIENT CARE BEDSIDE NON-EXEMPT - 06/23/2021 4:12 EDT documented in this encounter Plan of Treatment Not on file documented as of this encounter Visit Diagnoses Not on filedocumented in this encounter
--- OUTSIDE RECORDS SUMMARY | 2025-03-08 13:17 | XMS_ITS | Encounter Summary ---
Author Organization [employer] ([place], [place], [place], [place]) Address [address] [place] [address] Care Team Providers Care Manager Intelligence Name Role Phone Unavailable Primary Care Provider Unavailabl e Encounter Details Date Type Department Care Team (Late st Contact Info) Description 07/21/2021 Transcribed Document [facility] [place] Family Medicine [address] [place] [address] ProviderTg MD [address] [place] [address] Social History Tobacco Use Types Packs/Day Years Used Date Smoking Tobacco: Never Assessed Comments Unknown Sex and Gender Information Value Date Recorded Sex Assigned at Not on file Legal Sex Female 2:39 PM CDT Gender Identity Not on file Sexual Orientation Not on file documented as of this encounter Miscellaneous Notes * Cerner Conversion Note - Historical ProviderMD - 07/21/2021 9:11 PM SUPERVISOR COLD ROLLING Evaluation, Occupational Therapy Entered On: 07/24/2021 12:41 EST Performed On: 07/24/2021 11:39 EST by SHAWNA PARMAR OTR/Lachelle General Information, OT Patient Orders : Order Date Order Ordering 07/21/2021 21:11 OT Evaluation and Treatment Ordered By: LAURE COVINGTON DO-INT Active Diagnoses : 07/21/2021 12:00 Altered mental status 07/21/2021 12:00 [place] ingestion 07/21/2021 12:00 Toxic effect of other metals, accidental (unintentional), initial encounter Admission Date : 07/21/2021 20:00 Co-treated by, OT : Physical Therapist Personal Devices : Personal Devices No Devices Recorded Assistive Devices : Assistive Devices No Devices Recorded General Information Comment, OT : Diagnosis: lithium toxicity SHAWNA PARMAR OTR/Lachelle - 07/24/2021 12:33 EST General Status Patient Received Status : Supine in bed Treatment Start Time : 07/24/2021 11:29 EST Patient Left Status : Supine in bed, RN/PCT informed, All needs met and within reach Treatment End Time : 07/24/2021 11:39 EST Treatment Time : 10 Minute(s) SHAWNA PARMAR OTR/Lachelle - 07/24/2021 12:33 EST History and Environment, OT Living Situation, Therapy : Correction unit/facility Patient Lives With : Caregiver(s) SHAWNA PARMAR OTR/Lachelle - 07/24/2021 12:33 EST Prior LOF Bathing, OT : Dependent Prior LOF Bed Mobility : Dependent Prior LOF Upper Body Dressing, OT : Dependent Prior LOF Lower Body Dressing, OT : Dependent Prior LOF Toileting : Dependent Prior LOF Transfer : Dependent Prior LOF Grooming, OT : Dependent Prior LOF Wheel Chair Mobility : Dependent Prior LOF for IADLs, OT : Dependent SHAWNA PARMAR OTR/Lachelle - 07/24/2021 12:33 EST Upper Extremity Upper Extremity Comment : pt fighting therapist with attempts at ROM SHAWNA PARMAR OTR/Lachelle - 07/24/2021 12:33 EST Self Care/Home Management, OT Self Feeding Assist Level, OT : Assist, maximal Grooming Assist Level, OT : Assist, maximal Bathing Assist Level, OT : Assist, total Lower Body Dressing Assist Level, OT : Assist, total Toileting Assist Level : Assist, total SHAWNA PARMAR OTR/Lachelle - 07/24/2021 12:33 EST Functional Mobility Mobility Grid Bed Roll Left : Rehab Total assistance Bed Roll Right : Rehab Total assistance Bed Scooting : Rehab Total assistance SHAWNA PARMAR OTR/Lachelle - 07/24/2021 12:33 EST Cognition Assessment, OT Orientation : Not oriented to place, Not oriented to situation, Not oriented to time SHAWNA PARMAR OTR/Lachelle - 07/24/2021 12:33 EST Plan of Care, OT OT Tx Plan/Goals Established w Patient : No SHAWNA PARMAR OTR/Lachelle - 07/24/2021 12:33 EST Treatment Note Subjective Comment : Pt confused, emotionally labile Patient's Response to Treatment : Pt tolerated evaluation fair Additional Objective Information : Pt supine upon arrival. Attempted ROM, pt fighting therapist with movement, but PROM WFL. Pt total assist to position in bed. Pt left with needs met and CL in reach. Assessment : Pt appears to be at functional baseline Plan for Treatment : Eval only SHAWNA PARMAR OTR/Lachelle - 07/24/2021 12:33 EST Pain Assessment Pain Comment : pt unable to rate SHAWNA PARMAR OTR/Lachelle - 07/24/2021 12:33 EST Image 1 - Images currently included in the form version of this document have not been included in the text rendition version of the form. [facility] OT Charges OT Eval Low Complexity : 1 SHAWNA PARMAR OTR/Lachelle - 07/24/2021 12:33 EST Electronically signed by Keven [facility] Conversion Screen Writer Cerner at 12/18/2022 9:14 AM CDT documented in this encounter Plan of Treatment Not on file documented as of this encounter Visit Diagnoses Not on filedocumented in this encounter
--- OUTSIDE RECORDS SUMMARY | 2025-03-08 13:17 | XMS_ITS | Encounter Summary ---
Author Organization [employer] ([place], [place], [place], [place]) Address [address] [place] [address] Care Team Providers Care Casual Shoe Inspector Name Role Phone Unavailable Primary Care Provider Unavailabl e Encounter Details Date Type Department Care Team (Late st Contact Info) Description 06/22/2021 Transcribed Document [facility] [place] Family Medicine [address] [place] [address] ProviderTg MD [address] [place] [address] Social History Tobacco Use Types [...] Tg ProviderMD - 06/22/2021 5:00 AM CDT Chart Check - Review Order Profile Entered On: 06/22/2021 4:14 EDT Performed On: 06/22/2021 5:00 EDT by Ran Chew RN-PATIENT CARE BEDSIDE NON-EXEMPT Chart Check Powerplans Initiated/Discontinued as Appropriate : Yes All Active Orders Reviewed : Yes aRn Chew RN-PATIENT CARE BEDSIDE NON-EXEMPT - 06/22/2021 4:14 EDT documented in this encounter Plan of Treatment Not on file documented as of this encounter Visit Diagnoses Not on filedocumented in this encounter
--- OUTSIDE RECORDS SUMMARY | 2025-03-08 13:17 | XMS_ITS | Encounter Summary ---
Author Organization [employer] ([place], [place], [place], [place]) Address [address] [place] [address] Care Team Providers Care Chip Tester Name Role Phone Unavailable Primary Care Provider Unavailabl e Encounter Details Date Type Department Care Team (Late st Contact Info) Description 07/21/2021 Transcribed Document [facility] [place] Family Medicine [address] [place] [address] ProviderTg MD [address] [place] [address] Social History Tobacco Use Types Packs/Day Years Used Date Smoking Tobacco: Never Assessed Comments Unknown Sex and Gender Information Value Date Recorded Sex Assigned at Not on file Legal Sex Female 2:39 PM CDT Gender Identity Not on file Sexual Orientation Not on file documented as of this encounter Miscellaneous Notes * Cerner Conversion Note - Tg ProviderMD - 07/21/2021 2:50 PM HOME OFFICE CLAIMS EXAMINER Patient: SUDHA TIMMONS Age: 75 years Sex: Female : 1945 Associated Diagnoses: [place] toxicity Author: PAGE MCQUEEN MD-EMR Basic Information Additional information: Chief Complaint from Nursing Triage Note : Chief Complaint 07/21/2021 14:26 EST Chief Complaint Srrive via [facility] from [place] with a possible [place] Toxicity. Pt actively tremoring and confused. Pt has a hx of Anxitey, Bipolar & HTN. . History of Present Illness The patient presents with altered mental status. The onset was 1 days ago. The course/duration of symptoms is constant. The character of symptoms is confused and decreased responsiveness. Baseline status: unknown. Therapy today: see nurses notes. Associated symptoms: none. 75-year-old female with a history of bipolar disorder here from [place] for altered mental status. Reportedly concern for elevated lithium level but they are unable to obtain lab work at [place] to check this. The paperwork patient comes with says her diagnosis is Covid. She is disoriented and not able to provide any sort of history. She is unable to tell me her name. She does appear alert.. Per ems her last normal was 24 hours ago. Review of Systems Additional review of systems information: Unable to obtain due to: Altered mental status. Health Status Allergies: Allergic Reactions (Selected) Severity Not Documented Anaprox- Rash. Codeine- No reactions were documented. Latex- Itching. Naproxen- No reactions were documented. . Medications: (Selected) Prescriptions Prescribed Colace 100 mg oral capsule: [...] Cap, Oral, Daily, 30 Cap, 0 Refill(s) . Past Medical/ Family/ Social History Surgical history: heart cath in 2007 at 62 Years. bilateral breast reduction in 1992 at 47 Years. DAIJA in 1983 at 38 Years. tubal in 1971 at 26 Years. x 2. 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 sciatic nerve surgery. Power port placement. . Family history: No family history items have been selected or recorded. . Social history: Social & Psychosocial Habits Alcohol 06/05/2016 Alcohol Use History, Social Habits No Employment/School 06/05/2016 Status: Retired Previous employment/school: [employer] Home/Environment 06/05/2016 Lives with: 94 y/o father [...] smoker Second Hand Smoke Exposure Yes . 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 Physical Examination Vital Signs Vital Signs/Vital Measures 07/21/2021 18:00 EST Heart Rate Monitored 100 bpm Respiratory Rate 21 Breaths/Min HI Oxygen Saturation 95 % 07/21/2021 17:00 EST Oxygen Saturation 96 % 07/21/2021 16:00 EST Oxygen Saturation 97 % 07/21/2021 15:01 EST Oxygen Saturation 79 % LOW 07/21/2021 14:26 EST Systolic Blood Pressure 106 mmHg Diastolic Blood Pressure 49 mmHg LOW Temperature Source Oral Temperature Mode Fahrenheit Temperature, Fahrenheit 98.3 Deg F Clinical Temperature, C 36.8 Deg C Peripheral Pulse Rate 78 bpm Respiratory Rate 18 Breaths/Min Oxygen Saturation 99 % Oxygen Therapy Mode Room air . Measurements 07/21/2021 14:26 EST Height Source Estimated Height Entry Format [place] Height/Length, ISRAEL[place] (ft) 5 ft Height/Length ISRA[place]I 8 Inch CLINICALHEIGHT 172.72 cm [place] Body Weight 63.45 kg Weight Source, ED Critical estimated dosing weight Weight Entry Format [place] Weight Thai lb 249 lb CLINICALWEIGHT 113.18 kg Body Surface Area (BSA) 2.25 m2 Body Mass Index 37.9 kg/m2 HI . Oxygen Saturation 07/21/2021 18:00 EST Oxygen Saturation 95 % 07/21/2021 17:00 EST Oxygen Saturation 96 % 07/21/2021 16:00 EST Oxygen Saturation 97 % 07/21/2021 15:01 EST Oxygen Saturation 79 % LOW 07/21/2021 14:26 EST Oxygen Saturation 99 % . General: Alert, no acute distress. [place] coma scale: Eye response: 4 /4, verbal response: 3 /5, motor response: 6 /6. Neurological: No focal neurological deficit observed, normal speech observed. Skin: Warm, dry, pink, intact. Head: Normocephalic, atraumatic. Neck: Supple, trachea midline. Eye: Pupils are equal, round and reactive to light, extraocular movements are intact, normal conjunctiva. Cardiovascular: Regular rate and rhythm, No murmur, Normal peripheral perfusion, No edema. Respiratory: Lungs are clear to auscultation, respirations are non-labored, breath sounds are equal, Symmetrical chest wall expansion. Gastrointestinal: Soft, Nontender. Psychiatric: Cooperative. Medical Decision Making Documents reviewed: Emergency department nurses' notes, emergency department records, prior records. personnel monitor: Electrocardiogram: Time 07/21/2021 17:59:00, rate 101, EP Interp, The Rhythm is sinus tachycardia. , ST segments Non specific changes. Results review: Lab results : Lab Results 07/21/2021 18:38 EST Urine Type. U CleanCatch Urine Color Yellow Urine Appearance Clear Urine Specific [place] 1.012 Urine pH Dipstick 7.0 Urine Leukocyte Esterase Small Urine Nitrite Negative Urine Protein Dipstick Negative Urine Glucose Dipstick Negative Urine Ketones Dipstick 15 Urine Urobilinogen Dipstick 1.0 EU/dL Urine Bilirubin Dipstick Negative Urine Blood Dipstick Negative Ur RBC 2-5 /HPF Ur WBC 5-10 /HPF Ur WBC Clumps Present Ur Squamous Epithelial Cells 2-5 /HPF Urine Culture if Indicated Not Indicated UDS pH 7.0 UDS Amp NEGATIVE UDS Stephy NEGATIVE UDS Benzo NEGATIVE UDS Javi NEGATIVE UDS Opi POSITIVE UDS PCP NEGATIVE UDS TCA NEGATIVE UDS THC NEGATIVE 07/21/2021 16:59 EST Acetaminophen Level 3.2 mcg/mL LOW Salicylate <1.7 mg/dL LOW 07/21/2021 14:51 EST Valproic Acid Level 62.0 mcg/mL 07/21/2021 14:40 EST Sodium Level 141 mmol/L Potassium Level 4.9 mmol/L Chloride Level 113 mmol/L HI Carbon Dioxide Level 23 mmol/L Anion Gap 10 Glucose Level 74 mg/dL Blood Urea Nitrogen 16 mg/dL CREATININE 1.00 mg/dL eGFR >60 mL/min/1.73m2 eGFR NonAfrican 54 mL/min/1.73m2 LOW Bun/Creatinine 16.0 Calcium Level 8.6 mg/dL Protein Total 4.7 Gram/dL LOW Albumin Level 2.9 Gram/dL LOW Globulin 1.8 Gram/dL A/G Ratio 1.6 Bilirubin Total 0.5 mg/dL Alk Phos 148 Units/Liter HI AST 19 Units/Liter ALT 19 Units/Liter Magnesium Level 1.6 mg/dL Ammonia Level <10.0 uMol/L LOW Lactic Acid Level 0.5 mmol/L CK 188 Units/Liter Troponin I Ultra 0.019 ng/mL ProBNP 727 pg/mL HI WBC 9.0 K/uL RBC 2.58 Million/uL LOW Hgb 9.3 g/dL LOW Hct 29.2 % LOW MCV 113.2 fL HI MCH 36.0 pg HI MCHC 31.8 Gram/dL LOW Platelet Count 246 K/uL MPV 10.8 fL RDW 21.2 % HI Neut % 77.0 % HI Neut # 6.92 K/uL HI Lymph % 7.8 % LOW Lymph # 0.70 x10(3)/uL LOW [place] % 10.3 % HI [place] # 0.93 K/uL Eos % 4.4 % Eos # 0.40 x10(3)/uL Baso % 0.2 % Baso # 0.02 x10(3)/uL nRBC 0.030 HI RBC Morphology Abnormal Anisocytosis 2+ Poikilocytosis 1+ Anastacia Cells 1+ Acanthocytes 1+ Ovalocytes 1+ Microcytosis 1+ Macrocytosis 1+ Platelet Ct Estimate Adequate Slide Review Technologist IG# 0.03 x10(3)/uL IG% 0.30 % Procalcitonin <0.25 ng/mL TSH 1.320 mcInt Units/mL [place] Level >3.0 mmol/L CRIT Alcohol <3 mg/dL NA %Alcohol <.00 NA Influenza A Negative Influenza B Negative SARS-CoV-2 (COVID19 PCR) Negative . Notes: Patient care transferred to la at 1900. Renal function within normal limits. Still awaiting lithium level from . Discussed this case with Dr. Covington and patient will be admitted for further management.. Reexamination/ Reevaluation Control about lithium level. Poison control needs specific lithium level, not greater than 3, to make recommendations. Lab will have to ruby on rails consultant sample to were specific results can be produced. We will give IV hydration in the meantime. Nurses unable to obtain any more blood in lab is not as well. Will place central line for venous access and lab draw. Procedure Line Placement Time: 07/21/2021 17:43:00 . Confirmed: Patient, procedure, side, and site correct, Time-out taken prior to procedure. Consent: Responsible democrat, son via signature, daughter via phone. Indication: Venous access, Hemodynamically unstable, Hemodynamic monitoring. Monitoring: Cardiac, blood pressure, continuous pulse oximetry, See nurse's notes. Location: Right, Internal jugular vein. Preparation: Sterile field established, landmarks identified, Skin prepped with chlorhexidine, Local anesthesia: 2 ml 1% lidocaine injected locally, x 2. central venous line: 7 [place] citizen triple lumen, Seldinger technique utilized for line placement, 1 attempts, Secured at 15 cm , following procedure. Post-procedure: Adequate blood return observed, Adequate fluid flow observed, Bilateral breath sounds, Circulation, motor, sensory exam intact. Patient tolerated: Well. Complications: None. Performed by: Self. Impression and Plan Diagnosis [place] toxicity - Discharge, Medical Plan Condition: Stable. Disposition: Admit Admit/Transfer/Discharge: Admit to Inpatient (Order): Start: 07/21/2021 20:00 EST, Admit reason: lithium toxicity, Estimated length of stay 2 Midnights or LONGER, Level of Care: Med-Surg with telemetry, Admitting: LAURE COVINGTON DO-INT , Patient care transitioned to: Time: 07/21/2021 19:14:00, DANA WILSON MD. documented in this encounter Plan of Treatment Not on file documented as of this encounter Visit Diagnoses Not on filedocumented in this encounter
--- OUTSIDE RECORDS SUMMARY | 2025-03-08 13:17 | XMS_ITS | Encounter Summary ---
Author Organization [employer] ([place], [place], [place], [place]) Address [address] [place] [address] Care Team Providers Care Attendant Campground Name Role Phone Unavailable Primary Care Provider Unavailabl e Encounter Details Date Type Department Care Team (Late st Contact Info) Description 06/22/2021 Transcribed Document [facility] [place] [address] [place] [address] ProviderTg MD [address], [place] [id number] Social History Tobacco Use Types Packs/Day Years Used Date Smoking Tobacco: Never Assessed Comments Unknown Sex and Gender Information Value Date Recorded Sex Assigned at Not on file Legal Sex Female 2:39 PM CDT Gender Identity Not on file Sexual Orientation Not on file documented as of this encounter Miscellaneous Notes * Cerner Conversion Note - Tg Jones MD - 06/22/2021 8:53 AM CDT DATE OF SERVICE: 06/21/2021 REPORT TYPE: EEG REFERRING PHYSICIAN: Meir Ochoa MD REPORT TITLE: Video Electroencephalogram Report STUDY DURATION: One day. HISTORY: This is a 75-year-old woman, being evaluated for recurrent seizures. EEG VIDEO MONITORING METHODOLOGY: Time-locked EEG-video monitoring was performed using the 32-channel phorus monitoring system. The seizure detection computer was used for detection of ictal discharges (subclinical and clinical), interictal discharges, and to record ictal events that were documented by depression of the event button in the patient's room. Analyses of the monitoring data were performed using the following techniques: Review of the relevant EEG-video data. Review of events detected by the computer system in detail. Review of clinical seizures, with both detailed review of EEG and video and playback using multiple montages. A variety of referential and bipolar montages were used. CLINICAL AND EEG ANALYSIS: There was no event reported during the period of monitoring. TIME SAMPLES: The recording was reviewed. During wakefulness, the background was not well organized as 7 Hz activity was seen posteriorly intermixed with 4 to 5 Hz theta waves and lower amplitude faster activity in the beta range with a wider distribution. 2 to 3 Hz higher amplitude delta waves are seen in both hemispheres at [id number]-T7 and Ln2-C0-Z5-T8. During sleep, sleep spindles are seen in both hemispheres. SPIKE DETECTION: The spike detection program was activated during the period of monitoring. Occasional sharply contoured slow waves are seen at [id number]-J7-M2-T7 and Lx5-Y4-Y8-T8. EEG DIAGNOSES: This is an abnormal video EEG study because of: 1. Disorganization and slowing of the background. 2. Bihemispheric slow waves appearing most prominent at [id number]-C0-R2-T7 and Ft5-N4-Z1-T8. 3. Occasional sharply contoured slow waves noted at Iw1-R5-B6-T7 and Mj1-F5-G0-T8. CLINICAL INTERPRETATION: The patient had no clinical event during the period of monitoring. Continuous EEG recordings showed no electrographic ictal discharge. EEG recording showed disorganization and slowing of the background with bihemispheric slow waves most prominent in the frontotemporal electrodes in both hemispheres. These findings are consistent with mild bihemispheric dysfunction with more focal cerebral dysfunction in the frontotemporal regions. Additionally, occasional sharply contoured slow waves were seen in the frontotemporal electrodes, raising the possibility of potential epileptogenicity in the frontotemporal regions. /[id number] MD SHARLENE Light/AQ / TAF / MODL /[id number] documented in this encounter Plan of Treatment Not on file documented as of this encounter Visit Diagnoses Not on filedocumented in this encounter
--- OUTSIDE RECORDS SUMMARY | 2025-03-08 13:17 | XMS_ITS | Encounter Summary ---
Author Organization [employer] ([place], [place], [place], [place]) Address [address] [place] [address] Care Team Providers Care Car Inspection And Repair Manager Name Role Phone Unavailable Primary Care Provider Unavailabl e Encounter Details Date Type Department Care Team (Late st Contact Info) Description 06/16/2021 Transcribed Document [facility] [place] [address] [place] [address] ProviderTg MD [address] [place] [address] Social History Tobacco Use Types Packs/Day Years Used Date Smoking Tobacco: Never Assessed Comments Unknown Sex and Gender Information Value Date Recorded Sex Assigned at Not on file Legal Sex Female 2:39 PM CDT Gender Identity Not on file Sexual Orientation Not on file documented as of this encounter Miscellaneous Notes * Cerner Conversion Note - Tg ProviderMD - 06/16/2021 1:16 PM CDT On Going Discharge Planning Entered On: 06/16/2021 13:18 EDT Performed On: 06/16/2021 13:16 EDT by Patsy Koehler V Weigher Alloy Drew Care Management Progress Note Discharge Arrangements : Patient Post-Acute Information Patient Name: SUDHA TIMMONS Gender: Female : [birth year] Age: 75 Years No Post-Acute Placement(s) Listed No Post-Acute Service(s) Listed No Curaspan Referral(s) Listed Discharge Options Discussed with Patient : DME, Home Health, Short term rehabilitation Barriers to Discharge Identified : Clinical Condition of Patient Patient Discharge Goal : half-way facility List/Info Provided Pt/Fam/Support Person : Inpatient rehabilitation facility, half-way facilities Is the Patient Meeting Medical Necessity : Yes Did you Attend Multidisciplinary Rounds? : Yes Patsy Koehler Social Worker Quality Inspector - 06/16/2021 13:16 EDT Narrative Progress Note Narrative Progress Note : HD#8, ELOS-5 RSR-moderate, Boost-5 COVID+. On 5L HFNC. Ongoing confusion and attempting to pull at lines. In restraints. Leukocytosis worsening, LDH and d-dimer trending up, ferritin trending down. Tolerating TF via corpak. MD plans to get a neurology consult due to pt's confusion. CM to follow DCP-SNF for rehab pending medical progress. Historical Progress Note : HD#5, ELOS-5 RSR-moderate, Boost-[address] Narda Sommer, patient with further worsening of respiratory failure. Tachycardia. Patient is criticcally ill and may need intubation. CR chest today. Patsy Koehler V, Weigher Alloy Quality Inspector - 06/13/21 09:26:38 HD#5, ELOS-5 RSR-moderate, Boost-[address] Narda Sommer, patient with further worsening of respiratory failure. Tachycardia. Patient is critically ill and may need intubation. CR chest today showed Slightly worsening bilateral opacities. Pulmonary edema is not excluded. Corpak placed. CM to follow. DCP-pending on patient's medical progress. Patsy Koehler V Weigher Alloy Quality Inspector - 06/13/21 09:29:02 HD#4, ELOS-5 RSR-moderate, Boost-5 [...] SNF when medically ready. Patsy Koehler V Weigher Alloy Quality Inspector - 06/12/21 12:12:00 HD#4, ELOS-5 RSR-moderate, Boost-5 Patient currently on optiflow FiO2 70%, with continued increased confusion and fidgeting in the bed. ID and Pulm consulted and are making med adjustments. Per RN, patient with tachycardia the other night. DCP-[facility]/SNF pending medical progress. Patient lives with her 98 yo father and adult son. Patsy Koehler V Weigher Alloy Quality Inspector - 06/11/21 10:00:55 HD#4, ELOS-5 RSR-moderate, Boost-5 COVID+. Patient currently on optiflow FiO2 60%, with continued increased confusion and fidgeting in the bed. ID and Pulm consulted and are making med adjustments. Right small PE. On IV abx. Per RN, patient with tachycardia the other night. Now has mittens. Not eating or drinking per RN. DCP-[facility] pending medical progress. Patient lives with her 98 yo father and adult son. Patsy Koehler V Weigher Alloy Quality Inspector - 06/11/21 12:10:01 HD#3, ELOS-not recorded, RSR-moderate, Boost-4 Per MD, patient is clinical deconditioning from NC to optiflow at 60% Fi02 with increased confusion. ID, Cardiology and Pulm consulted. HIGH RISK FOR INTUBATION. Patient had a abnormal ECHO with PE. On IV cefazolin and IV steroids. CM sent referrals to [facility] and [facility] due to being COVID+ for rehab. CM to follow. Patsy Koehler Social Worker Quality Inspector - 06/10/21 10:25:43 HD#2, ELOS-not recorded, RSR-moderate, Boost-4 CM sent rehab referrals to [facility] and [facility] since they accept COVID+ patients. Currently patient is on 60% Fi02. PEr MD, patient's respiratory status is worsening. CM to follow pt's progress for dc planning. Patsy Koehler Social Worker Quality Inspector - 06/09/21 16:10:00 Patsy Koehler V Weigher Alloy Quality Inspector - 06/16/2021 13:16 EDT documented in this encounter Plan of Treatment Not on file documented as of this encounter Visit Diagnoses Not on filedocumented in this encounter
--- OUTSIDE RECORDS SUMMARY | 2025-03-08 13:17 | XMS_ITS | Encounter Summary ---
Author Organization [employer] ([place], [place], [place], [place]) Address [address] [place] [address] Care Team Providers Care Sales Representative Consultant Name Role Phone Unavailable Primary Care Provider Unavailabl e Encounter Details Date Type Department Care Team (Late st Contact Info) Description 07/21/2021 Transcribed Document [facility] [place] [address] [place] [address] ProviderTg MD [address] [place] [address] Social History Tobacco Use Types Packs/Day Years Used Date Smoking Tobacco: Never Assessed Comments Unknown Sex and Gender Information Value Date Recorded Sex Assigned at Not on file Legal Sex Female 2:39 PM CDT Gender Identity Not on file Sexual Orientation Not on file documented as of this encounter Miscellaneous Notes * Cerner Conversion Note - Historical ProviderMD - 07/21/2021 5:06 PM [facility] Event Note Entered On: 07/21/2021 17:07 EST Performed On: 07/21/2021 17:06 EST by Josephine Sepulveda RN-PATIENT CARE BEDSIDE NON-EXEMPT ED Event Note ED Description of Event : Family Members... Oren (Son) [phone] Elana (Daughter) [phone] Please contact with any changes/updates Josephine Sepulveda RN-PATIENT CARE BEDSIDE NON-EXEMPT - 07/21/2021 17:06 EST documented in this encounter Plan of Treatment Not on file documented as of this encounter Visit Diagnoses Not on filedocumented in this encounter
--- OUTSIDE RECORDS SUMMARY | 2025-03-08 13:17 | XMS_ITS | Encounter Summary ---
Author Organization [employer] ([place], [place], [place], [place]) Address [address] [place] [address] Care Team Providers Care Disciplinary Hearing Officer Name Role Phone Unavailable Primary Care Provider Unavailabl e Encounter Details Date Type Department Care Team (Late st Contact Info) Description 06/22/2021 Transcribed Document [facility] [place] [address] [place] [address] ProviderTg MD [address] [place] [address] Social History Tobacco Use Types Packs/Day Years Used Date Smoking Tobacco: Never Assessed Comments Unknown Sex and Gender Information Value Date Recorded Sex Assigned at Not on file Legal Sex Female 2:39 PM CDT Gender Identity Not on file Sexual Orientation Not on file documented as of this encounter Miscellaneous Notes * Cerner Conversion Note - Tg Jones MD - 06/22/2021 12:24 PM CDT Patient: SUDHA SOLORZANO Age: 75 Years Sex: Female : 1945 Assessment 75-year-old female with a protracted respiratory illness related to Covid, pulmonary embolism, hypernatremia corrected, and encephalopathy since admission. EEG recordings showed epileptiform discharges and slow-wave activity in the frontal-temporal electrodes in both hemispheres, no seizures after 72hours. Due to the epileptogenic findings on EEG it is reasonable to cover her with anticonvulsants. I will initiate Depakote 250 twice daily which can be helpful and mood disorders as well. 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 I would not recommend further neurological work-up, she can be discharged with appropriate placement when medically stable. I will sign off for neurology. She has improved and MRI does not show acute ischemia. She has underlying psych and cognitive issues. I suspect her medical illness has caused a decline in her function. There are no significant metabolic abnormalities at [...] recommendations will be based on test results, body care manager communication, and clinical course. Ordered Depakote 250mg bid Subjective No significant change Presentation: 75-year-old female [...] ischemia CT head 10???9 no significant abnormality EEG The patient had no clinical event during the period of monitoring. recordings showed no electrographic ictal discharge. EEG recordings showed disorganization and slowing of the background with bihemispheric slow waves most prominent in the frontotemporal electrodes in both hemispheres. These findings are consistent with ufwz-ox-ncmiqyoe bihemispheric dysfunction with more focal cerebral dysfunction in the frontotemporal regions. Occasional sharply contoured slow waves and rare sharp waves were seen in the right frontal electrodes and rare sharply contoured slow waves in the left frontal electrodes. This is suggestive of potential epileptogenicity in the right frontal region and possible potential epileptogenicity in the left frontal area. Studies personally reviewed documented in this encounter Plan of Treatment Not on file documented as of this encounter Visit Diagnoses Not on filedocumented in this encounter
--- OUTSIDE RECORDS SUMMARY | 2025-03-08 13:17 | XMS_ITS | Encounter Summary ---
Author Organization [employer] ([place], [place], [place], [place]) Address [address] [place] [address] Care Team Providers Care Server Systems Administrator Name Role Phone Unavailable Primary Care Provider Unavailabl e Encounter Details Date Type Department Care Team (Late st Contact Info) Description 06/16/2021 Transcribed Document [facility] [place] [address] [place] [address] ProviderTg MD [address] [place] [address] Social History Tobacco Use Types Packs/Day Years Used Date Smoking Tobacco: Never Assessed Comments Unknown Sex and Gender Information Value Date Recorded Sex Assigned at Not on file Legal Sex Female 2:39 PM CDT Gender Identity Not on file Sexual Orientation Not on file documented as of this encounter Miscellaneous Notes * Cerner Conversion Note - Tg ProviderMD - 06/16/2021 10:55 AM CDT Consult Phone Call Documentation Entered On: 06/17/2021 12:55 EDT Performed On: 06/16/2021 10:55 EDT by ELYSE UGALDE, [facility] Phone Call for Consults Consult Phone Call/Page Attempt : First call Consult Reason : encephalopathy Physician Requested for Consult : LUCI DUMONT MD-NIKI Physician Covering for Consult : SAROJ MEDEROS MD BLEVINS, [place], [facility] - 06/17/2021 12:54 EDT documented in this encounter Plan of Treatment Not on file documented as of this encounter Visit Diagnoses Not on filedocumented in this encounter
--- OUTSIDE RECORDS SUMMARY | 2025-03-08 13:17 | XMS_ITS | Encounter Summary ---
Author Organization [email or web address] ([place], [place], [place], [place]) Address [address] [place] [address] Care Team Providers Care Antisubmarine Weapons Officer Name Role Phone Unavailable Primary Care Provider Unavailabl e Encounter Details Date Type Department Care Team (Late st Contact Info) Description 07/21/2021 Transcribed Document [facility] [place] Family Medicine [address] [place] [address] ProviderTg MD [address], [place] [...] - Historical ProviderMD - 07/21/2021 9:11 PM INSPECTOR FINAL ASSEMBLY MECHANICAL Evaluation, Physical Therapy Entered On: 07/24/2021 15:49 EST Performed On: 07/24/2021 11:42 EST by YULIYA BALTAZAR PT General Information, PT Visit Type, PT : Initial evaluation Patient Orders : Order Date Order Ordering 07/21/2021 21:11 PT Evaluation and Treatment Ordered By: LAURE COVINGTON DO-INT Active Diagnoses : 07/21/2021 12:00 Altered mental status 07/21/2021 12:00 [place] ingestion 07/21/2021 12:00 Toxic effect of other metals, accidental (unintentional), initial encounter Therapy Diagnosis, PT : decreased functional mobility and activity tolerance Onset of Problem, PT : 07/21/2021 EST Admission Date : 07/21/2021 20:00 Personal Devices : Personal Devices No Devices Recorded Assistive Devices : Assistive Devices No Devices Recorded General Information Comment, PT : Dx: AMS, lithium toxicity PMH: bipolar, lymphoma, HTN YULIYA BALTAZAR, PT - 07/24/2021 15:24 EST General Status Patient Received Status : Supine in bed Treatment Start Time : 07/24/2021 11:29 EST Patient Left Status : Supine in bed, Communication board completed, All needs met and within reach RN/PCT Informed Comment : jose Treatment End Time : 07/24/2021 11:42 EST Treatment Time : 13 Minute(s) YULIYA BALTAZAR, PT - 07/24/2021 15:24 EST History and Environment Living Situation, Therapy : [facility] unit[facility]facility Patient Lives With : Caregiver(s) Persons Providing Information : Patient Prior LOF Assist with ADL Comment : unable to obtain history and patient not oriented and not answering questions YULIYA BALTAZAR, PT - 07/24/2021 15:24 EST Functional Mobility Bed Comment : not following commands YULIYA BALTAZAR, PT - 07/24/2021 15:24 EST Gait Training/Assessment, PT Gait Assistance Level : Unable to assess/activity not appropriate YULIYA BALTAZAR, PT - 07/24/2021 15:24 EST Edu Topics Physical Therapy Education Grid Role of Physical Therapy : Verbalizes understanding YULIYA BALTAZAR, PT - 07/24/2021 15:24 EST Indication Assesessment, PT Physical Therapy Indicated : Yes PT Problem List : Impaired, activities daily living, Impaired, bed mobility, Impaired, coordination/proprioception, Impaired, endurance tolerance, Impaired, gait, Impaired, sitting balance, Impaired, stair mobility, Impaired, standing balance, Impaired, strength, Impaired, transfers, Pain limiting function Potential Barriers To Therapy : Pain Rehabilitation Potential : Good YULIYA BALTAZAR, PT - 07/24/2021 15:24 EST Plan of Care, PT PT Tx Plan/Goals Established w Patient : Yes PT Frequency Rehab : Five days per week PT Duration Rehab : Fourteen days PT Treatments Planned : Balance training, Bed mobility training, Gait training, Safety education, Stair training, Therapeutic exercises, Transfer training, Wheelchair management training YULIYA BALTAZAR, PT - 07/24/2021 15:24 EST Intermediate Goals Mobility/Bed Mobility LTG PT Grid Goal #1 Activity : Supine to sit Assist : Assist, moderate Date to Meet : 08/07/2021 EST Goal Status : Intial Goal YULIYA BALTAZAR, PT - 07/24/2021 15:24 EST Treatment Note Subjective Comment : Patient agreed to PTx. RN ok'd PTx. DELANEY, YULIYA, PT - 07/24/2021 15:24 EST Additional Objective Information : Patient with high emotional lability, crying out throughout PTx. Patient did not answer questions or respond to cues. She responded to only 2 cues, to squeeze hand and to high five with L hand. Patient did not respond to move any other extremity. YULIYA BALTAZAR, PT - 07/24/2021 15:52 EST Assessment : Patient demonstrates decreased independence and safety with functional mobility, transfers. PT unsure of baseline however patient from [place] and likely a dependent transfer based on assessment today. Patient may not be appropriate for skilled PT services at this time due to poor participation however PT will attempt a trial to see if patient able to improve with participation. Patient would benefit from skilled PT services in order to improve in these areas, minimize functional deficits, promote safety and independence, improve quality of life and return to OF. Plan for Treatment : Continue POC YULIYA BALTAZAR, PT - 07/24/2021 15:24 EST Anticipated Discharge Needs, OT/PT Anticipated Discharge to : Unit, group home Recommend Continued Therapy at Discharge : Yes YULIYA BALTAZAR, PT - 07/24/2021 15:[address] [facility] PT Eval Moderate Complexity : 1 YULIYA BALTAZAR, PT - 07/24/2021 15:24 EST Electronically signed by Julian Baca Conversion [employer] Certified Internetwork Expert Cerner at 12/18/2022 9:10 AM CDT documented in this encounter Plan of Treatment Not on file documented as of this encounter Visit Diagnoses Not on filedocumented in this encounter
--- OUTSIDE RECORDS SUMMARY | 2025-03-08 13:17 | XMS_ITS | Encounter Summary ---
Author Organization [employer] ([place], [place], [place], [place]) Address [address] [place] [address] Care Team Providers Care Pathologist Name Role Phone Unavailable Primary Care Provider Unavailabl e Encounter Details Date Type Department Care Team (Late st Contact Info) Description 06/22/2021 Transcribed Document [facility] [place] Family Medicine [address] [place] [address] ProviderTg MD [address] [place] [address] Social History Tobacco Use Types Packs/Day Years Used Date Smoking Tobacco: Never Assessed Comments Unknown Sex and Gender Information Value Date Recorded Sex Assigned at Not on file Legal Sex Female 2:39 PM CDT Gender Identity Not on file Sexual Orientation Not on file documented as of this encounter Miscellaneous Notes * Cerner Conversion Note - Tg Jones MD - 06/22/2021 10:55 AM CDT DATE OF SERVICE: 06/22/2021 REPORT TYPE: EEG REFERRING PHYSICIAN: Meir Ochoa MD REPORT TITLE: Video Electroencephalogram Report STUDY DURATION: 4 hours. HISTORY: This is a 75-year-old woman with altered mentation being evaluated for seizures. EEG VIDEO MONITORING METHODOLOGY: Time-locked EEG-video monitoring was performed using the 32-channel [employer]i Data monitoring system. The seizure detection computer was [...] SAMPLES: The recording was reviewed. During wakefulness, 6.5 to 7 Hz activity is seen posteriorly intermixed with lower amplitude faster activity in the beta range with a wider distribution and higher amplitude 1.5 to 3 Hz delta waves that appear most prominent at Un2-N1-E0-T7 and Bp4-L8-O4-T8. Sleep was recorded with the appearance of sleep spindles in both hemispheres. SPIKE DETECTION: The spike detection program was activated during the period of monitoring. Occasional sharply contoured slow waves and rare sharp waves were seen at Fp2-F4-F8. Rare sharply contoured slow waves are seen at Fp1-F3-F7. EEG DIAGNOSES: This is an abnormal video EEG study because of: 1. Disorganization and slowing of the background. 2. Bihemispheric slow waves appearing most prominent at Pg0-H4-D0-T7 and La0-Q8-V3-T8. 3. Occasional sharply contoured slow waves and rare sharp waves seen at Fp2-F4-F8. 4. Rare sharply contoured slow waves at Fp1-F3-F7. CLINICAL INTERPRETATION: The patient had no clinical event during the period of monitoring. EEG recordings showed no electrographic ictal discharge. EEG recordings showed disorganization and slowing of the background with bihemispheric slow waves most prominent in the frontotemporal electrodes in both hemispheres. These findings are consistent with qnkd-cw-avjxdxkj bihemispheric dysfunction with more focal cerebral dysfunction in the frontotemporal regions. Occasional sharply contoured slow waves and rare sharp waves were seen in the right frontal electrodes and rare sharply contoured slow waves in the left frontal electrodes. This is suggestive of potential epileptogenicity in the right frontal region and possible potential epileptogenicity in the left frontal area. /[id number] MD SHARLENE Light/ROSA / TAF / MODL /[id number] documented in this encounter Plan of Treatment Not on file documented as of this encounter Visit Diagnoses Not on filedocumented in this encounter
--- OUTSIDE RECORDS SUMMARY | 2025-03-08 13:17 | XMS_ITS | Encounter Summary ---
Author Organization [employer] ([place], [place], [place], [place]) Address [address] [place] [address] Care Team Providers Care Help Desk Administrator Name Role Phone Unavailable Primary Care Provider Unavailcabrera e Encounter Details Date Type Department Care Team (Late st Contact Info) Description 06/23/2021 Transcribed Document [facility] [place] [address] [place] [address] ProviderTg MD [address] [place] [address] Social History Tobacco Use Types Packs/Day Years Used Date Smoking Tobacco: Never Assessed Comments Unknown Sex and Gender Information Value Date Recorded Sex Assigned at Not on file Legal Sex Female 2:39 PM CDT Gender Identity Not on file Sexual Orientation Not on file documented as of this encounter Miscellaneous Notes * Cerner Conversion Note - Historical ProviderMD - 06/23/2021 9:40 AM CDT Attempt to Treat, PT Entered On: 06/23/2021 12:21 EDT Performed On: 06/23/2021 9:40 EDT by Paige Cooper Physical Therapist Attempt to Treat Unable to Treat Due To : Patient on hold Inability to Treat Comment : Patient with hemoglobin of 6.3 this date and per nsg requiring transfusion. PT to hold and check back as schedule permits. Notification : Nurse Paige Lock, Physical Therapist - 06/23/2021 12:20 EDT documented in this encounter Plan of Treatment Not on file documented as of this encounter Visit Diagnoses Not on filedocumented in this encounter
--- OUTSIDE RECORDS SUMMARY | 2025-03-08 13:17 | XMS_ITS | Encounter Summary ---
Author Organization [employer] ([place], [place], [place], [place]) Address [address] [place] [address] Care Team Providers Care Cat Scan Technologist Name Role Phone Unavailable Primary Care Provider Unavailabl e Encounter Details Date Type Department Care Team (Late st Contact Info) Description 06/22/2021 Transcribed Document [facility] [place] [address] [place] [address] ProviderTg MD [address] [place] [address] Social History Tobacco Use Types Packs/Day Years Used Date Smoking Tobacco: Never Assessed Comments Unknown Sex and Gender Information Value Date Recorded Sex Assigned at Not on file Legal Sex Female 2:39 PM CDT Gender Identity Not on file Sexual Orientation Not on file documented as of this encounter Miscellaneous Notes * Cerner Conversion Note - Tg ProviderMD - 06/22/2021 2:00 AM CDT Consumer Electronic Retail Specialist Details Entered On: 06/22/2021 1:50 EDT Performed On: 06/22/2021 2:00 EDT by Ran Chew RN-PATIENT CARE BEDSIDE NON-EXEMPT Order Details Transport Mode Order Detail : Bed (including specialty) Isolation Precautions Order Detail : Airborne precautions, Contact precautions, Droplet precautions Order Detail : N/A IV Order Detail : 1 Oxygen Order Detail : 0 Nurse Collect Order Detail : 1 Lift/Transfer : Maximal assist Central Line Order Detail : Yes Room Service : Not Appropriate Arterial Line : Yes Patient Needs Meds Crushed/Liquid : Yes Meds Administered Via Tube : Yes Ran Chew RN-PATIENT CARE BEDSIDE NON-EXEMPT - 06/22/2021 1:47 EDT documented in this encounter Plan of Treatment Not on file documented as of this encounter Visit Diagnoses Not on filedocumented in this encounter
--- OUTSIDE RECORDS SUMMARY | 2025-03-08 13:17 | XMS_ITS | Encounter Summary ---
Author Organization [employer] ([place], [place], [place], [place]) Address [address] [place] [address] Care Team Providers Care Correspondence Review Clerk Name Role Phone Unavailable Primary Care Provider Unavailabl e Encounter Details Date Type Department Care Team (Late st Contact Info) Description 06/22/2021 Transcribed Document [facility] [place] [address] [place] [address] ProviderTg MD [address] [place] [address] Social History Tobacco Use Types Packs/Day Years Used Date Smoking Tobacco: Never Assessed Comments Unknown Sex and Gender Information Value Date Recorded Sex Assigned at Not on file Legal Sex Female 2:39 PM CDT Gender Identity Not on file Sexual Orientation Not on file documented as of this encounter Miscellaneous Notes * Cerner Conversion Note - Tg ProviderMD - 06/22/2021 3:38 PM CDT Patient: SUDHA SOLORZANO Age: 75 Years Sex: Female : 1945 Subjective Patient seems to be more calm today with better mentation. Patient continues to have CorPak with tube feeding and tolerating some liquid intake. No other acute events overnight by nursing staff. Vital Signs T: 36.5 ??C TMIN: 36.2 ??C TMAX: 37 ??C HR: 86(Monitored) RR: 19 BP: 108/67 SpO2: 95% HT: 157.48 cm WT: 113.2 kg BMI: 45.65 Oxygen Settings (Last) Oxygen Therapy Mode: Room air (06/22/21 12:00:00) Oxygen Flow Rate: 1 Liter/Min (06/19/21 15:00:00) Intake & Output Totals Last 24 Hours (7a-7a) Input Total: 2779.96 mL Output Total: 0 mL Balance: 2779.96 mL Physical Exam General: Chronically ill appearing female who is more calm today and in better spirits. HEENT: Moist oral mucosa Cardiac: RRR no m/r/g. 2/4 radial pulses bilaterally. Extremities: Trace LE edema bilaterally Lungs: CTAB with decreased breath sounds in the lower lobes bilaterally. Normal respiratory rate and effort on room air. GI: Abdomen soft, nontender, nondistended. Corpak in place with tube feeds. MSK: 3/5 strength in the UE and LE bilaterally. Very debilitated Neuro: AOx2 speech better today. Baseline mental status. No sensory or focal deficits. Skin: No rashes noted on exam Psych: Improved mood with flat affect Assessment/Plan 1. Acute hypoxemic respiratory failure 2. COVID Pneumonia 3. Pulmonary Embolism 4. Sepsis due to COVID and UTI POA (resolved) - Completed IV dexamethasone, Remdesivir and Actemera - CTA 06/09: Multiple small filling defects in the right lower lobe pulmonary artery consistent with PE - ID following restarted Zosyn on 06/19, stopped Micafungin - Therapeutic Lovenox, plan to transition to PO Eliquis on discharge if she can tolerate oral intake. 5. Acute metabolic encephalopathy with likely chronic underlying memory problems and ? dementia - MRI Brain 06/18 shows no acute infarcts - Neuro completed EEG monitoring some abnormal activity in frontotemporal region with no active seizures - Neurology starting Depakote 250mg BID and will be continued on discharge and also help with underlying psychiatric disorder. - Neurology signed off 06/22 - Persistent encephalopathy after COVID illness and some underlying cognitive and psychiatric disorders. 6. Macrocytic Anemia - Hbg 6.2, giving 1 units of PRBC - Continue to monitor - Check folate and B12 7. Dysphagia - Speech recommended 1. Puree textures and thin liquids 2. Meds crushed with puree/pudding 3. Feed only when alert/positioned upright - Still requiring Tube feedings with Corpak at this time. - Will have speech reevaluate patient tomorrow to see if she can tolerate more PO intake. 8. Acute kidney injury (resolved) Likely ATN/MYESHA and meds induced 9. Transaminitis (resolved) -Acetaminophen alcohol level negative -Likely due to COVID-19, -RUQ US noted, normal liver and better now and normalized. Statin resumed. 10. Acute systolic HF (stable) -2/2 possible NSTEMI? vs covid? vs chronic, last echo normal from 2018 -ECHO noted, EF 35% - On Carvedilol, not requiring diuretics 11. Hypertensive urgency (resolved) 12. Sinus tachycardia -Likely from PE, EKG noted, PRN Lopressor for tachycardia 13. Elevated troponin -Likely reactive from COVID and tachycardia/NSTEMI -Patient denies cp -ECHO noted, EF 35% 14. Bilateral LE edema -D-dimer elevated 2/2 covid -No hx of CHF, Echo from 2018 with normal EF, no excess IVF at this time -LE US NEG 15. Hypernatremia (resolved) 16. Bipolar disorder:As per discussion with her son Shawn on 06/16 patient has been off lithium recently prior to admission with mental status changes 17. Morbid obesity: BMI 45.8, complicates all aspects of care and resp failure with suspected OHS component 18. Hx of non-Hodgkin's lymphoma Disposition: Evaluated patient with EEG starting Depakote to 250 mg twice daily due to abnormal activity and to help with underlying psychiatric illness and mood. Patient had hemoglobin 6.2 requiring blood transfusion today we will continue to monitor. Will have speech reevaluate patient to see if patient needs CorPak and tube feeding tomorrow. Patient will need SNF on discharge Case management working on it. Will need to make sure hemoglobin stable and see if patient can be transitioned to oral intake and off CorPak with tube feeds. VTE Prophylaxis - Medical Enoxaparin 115 mg, SubCutaneous, Inj, [id number], Routine, Start 06/16/21 21:00:00 EDT, 06/16/21 21:00:00 EDT (ENRIQUE LINDSEY) Sequential Compression Device Start: 06/07/21 14:19:00 EDT, Bilateral, Length: Knee High, While patient is in bed, Continuous Order (CARA DE LA ROSA) Medications aspirin, 81 mg= 1 Tab, Feeding Tube, Daily Ativan, 0.5 mg= 0.25 mL, IV Push, BID, PRN atovaquone, 750 mg= 5 mL, Oral, BID Colace, 100 mg= 10 mL, Oral, Daily Coreg, 12.5 mg= 1 Tab, Oral, BID Depakote, 250 mg= 1 Tab, Oral, BID Dextrose 50% injection, 25 Gram= 50 mL, [...] 40 mg= 1 Tab, Oral, At Bedtime loperamide, 2 mg= 1 Cap, Oral, Q4H, PRN Lopressor, 5 mg= 5 mL, IV Push, Q3H, PRN Lovenox, 115 mg= 1.15 mL, SubCutaneous, [id number] minocycline, 100 mg= 2 Cap, Oral, Q12H MiraLax, 17 Gram= 1 Packet, Oral, Daily oxyCODONE, 5 mg= 1 Tab, Oral, Q4H, PRN Pepcid, 20 mg= 1 Tab, Oral, Daily predniSONE, 30 mg= 3 Tab, Oral, Daily predniSONE, 20 mg= 1 Tab, Oral, Daily predniSONE, 10 mg= 1 Tab, Oral, Daily predniSONE, 5 mg= 1 Tab, Oral, Daily rifAXIMin, 550 mg= 1 Tab, Oral, BID Robitussin, 400 mg= 20 mL, Oral, Q4HInt SEROquel, 12.5 mg= 0.5 Tab, Oral, BID, PRN Zofran, 4 mg= 2 mL, IV Push, Q4H, PRN Zosyn + Sodium Chloride 0.9% intravenous solution 100 mL Lab Results Test Name Test Result Date/Time Sodium Level 139 mmol/L 06/22/2021 06:55 EDT Potassium Level 4.6 mmol/L 06/22/2021 06:55 EDT Chloride Level 110 mmol/L 06/22/2021 06:55 EDT Carbon Dioxide Level 23 mmol/L 06/22/2021 06:55 EDT Anion Gap 11 06/22/2021 06:55 EDT Glucose Level 140 mg/dL (High) 06/22/2021 06:55 EDT Blood Urea Nitrogen 28 mg/dL (High) 06/22/2021 06:55 EDT Creatinine Level 0.80 mg/dL 06/22/2021 06:55 EDT eGFR >60 mL/min/1.73m2 06/22/2021 06:55 EDT eGFR NonAfrican >60 mL/min/1.73m2 06/22/2021 06:55 EDT Bun/Creatinine 35.0 (High) 06/22/2021 06:55 EDT Calcium Level 7.9 mg/dL (Low) 06/22/2021 06:55 EDT Magnesium Level 2.1 mg/dL 06/22/2021 06:55 EDT Device Comment 1 Notified Nurse RBV 06/22/2021 11:09 EDT Device Comment 1 Notified Nurse RBV 06/22/2021 05:30 EDT Device Comment 1 Notified Nurse RBV 06/22/2021 00:48 EDT Device Comment 1 Notified Nurse RBV 06/21/2021 18:13 EDT Glucose POC2 125 mg/dL (High) 06/22/2021 11:09 EDT Glucose POC2 133 mg/dL (High) 06/22/2021 05:30 EDT Glucose POC2 110 mg/dL 06/22/2021 00:48 EDT Glucose POC2 173 mg/dL (High) 06/21/2021 18:13 EDT CRP <0.29 mg/dL 06/22/2021 06:55 EDT Lactate Dehydrogenase 557 Units/Liter (High) 06/22/2021 06:55 EDT CK 294 Units/Liter (High) 06/22/2021 06:55 EDT Troponin I Ultra 0.075 ng/mL (High) 06/22/2021 06:55 EDT WBC 10.6 K/uL (High) 06/22/2021 05:30 EDT RBC 1.79 Million/uL (Low) 06/22/2021 05:30 EDT Hgb 6.2 g/dL (Low) 06/22/2021 05:30 EDT Hct 19.5 % (Low) 06/22/2021 05:30 EDT MCV 108.9 fL (High) 06/22/2021 05:30 EDT MCH 34.6 pg (High) 06/22/2021 05:30 EDT MCHC 31.8 Gram/dL (Low) 06/22/2021 05:30 EDT Platelet Count 168 K/uL 06/22/2021 05:30 EDT MPV 11.5 fL 06/22/2021 05:30 EDT RDW 15.8 % (High) 06/22/2021 05:30 EDT Neut % 68.6 % 06/22/2021 05:30 EDT Neut # 7.27 K/uL (High) 06/22/2021 05:30 EDT Lymph % 17.0 % (Low) 06/22/2021 05:30 EDT Lymph # 1.81 x10(3)/uL 06/22/2021 05:30 EDT [place] % 9.3 % (High) 06/22/2021 05:30 EDT [place] # 0.99 K/uL 06/22/2021 05:30 EDT Eos % 4.0 % 06/22/2021 05:30 EDT Eos # 0.43 x10(3)/uL 06/22/2021 05:30 EDT Baso % 0.3 % 06/22/2021 05:30 EDT Baso # 0.03 x10(3)/uL 06/22/2021 05:30 EDT nRBC 0.320 (High) 06/22/2021 05:30 EDT Slide Review No 06/22/2021 05:30 EDT IG# 0.09 x10(3)/uL (High) 06/22/2021 05:30 EDT IG% 0.80 % (High) 06/22/2021 05:30 EDT D Dimer Quant 1.27 mg/L FEU (High) 06/22/2021 05:30 EDT Ferritin Level 700.2 ng/mL (High) 06/22/2021 06:55 EDT ABO/Rh (ECHO) O POS 06/22/2021 07:13 EDT Antibody Screen Negative ABSC 06/22/2021 07:13 EDT RBC Product Ready RBC Ready 06/22/2021 06:56 EDT # of Units: 1 Unit 06/22/2021 06:56 EDT Crossmatch Computer XM OK 06/22/2021 07:13 EDT Electronically signed by Keven, [facility] Conversion Plant Reliability Engineer Cerner at 12/18/2022 9:16 AM CDT documented in this encounter Plan of Treatment Not on file documented as of this encounter Visit Diagnoses Not on filedocumented in this encounter
--- OUTSIDE RECORDS SUMMARY | 2025-03-08 13:17 | XMS_ITS | Encounter Summary ---
Author Organization [employer] ([place], [place], [place], [place]) Address [address] [place] [address] Care Team Providers Care Patient Flow Coordinator Name Role Phone Unavailable Primary Care Provider Unavailabl e Encounter Details Date Type Department Care Team (Late st Contact Info) Description 06/16/2021 Transcribed Document [facility] [place] Family Medicine [address] [place] [address] ProviderTg MD [address] [place] [address] Social History Tobacco Use Types Packs/Day Years Used Date Smoking Tobacco: Never Assessed Comments Unknown Sex and Gender Information Value Date Recorded Sex Assigned at Not on file Legal Sex Female 2:39 PM CDT Gender Identity Not on file Sexual Orientation Not on file documented as of this encounter Miscellaneous Notes * Cerner Conversion Note - Tg Jones MD - 06/16/2021 7:55 PM CDT Rapid Response Team Documentation Entered On: 06/16/2021 20:06 EDT Performed On: 06/16/2021 19:55 EDT by HOWIE KILLIAN RN Rapid Response Event Time Rapid Response Team Called : 06/16/2021 19:55 EDT Rapid Response Team Arrival Time : 06/16/2021 19:55 EDT Rapid Response Team Event End Time : 06/16/2021 20:05 EDT Rapid Response Event Intiated By : Other: MEWS score 7 Rapid Response Team Initiation Reason : Change in MEWS score Rapid Response Event Location Type : Other: 583 Rapid Response Team Initiation Reason Details : MEWS score 7 at 1718. Rapid Response Admission Diagnosis : Altered mental status Sepsis, unspecified organism Urinary tract infection, site not specified Urinary tract infection, site not specified Urinary tract infection, site not specified Rapid Response Medical Background : At risk for sleep apnea (Medical) At risk for violence (Medical) Bipolar I disorder, current or most [...] Drug Rapid Response Recent Vital Signs : 06/16/2021 19:57 Systolic Blood Pressure 121 06/16/2021 19:57 Diastolic Blood Pressure 94 06/16/2021 19:57 Heart Rate Monitored 105 06/16/2021 19:57 Respiratory Rate 20 06/16/2021 19:57 Temperature, Fahrenheit 99 06/16/2021 19:57 Oxygen Saturation 100 Rapid Response Recent Lab Results : 06/16/2021 14:50 Sodium Level 144 (136-146) 06/16/2021 14:50 Potassium Level 5.1 (3.5-5.1) 06/11/2021 02:45 Calcium Ionized 1.17 (1.12-1.32) 06/16/2021 14:50 Calcium Level LOW 8.3 (8.4-10.1) 06/16/2021 06:08 Magnesium Level HI 2.5 (1.5-2.4) 06/07/2021 11:25 eAVG Glucose NA 114 06/16/2021 16:41 Glucose POC2 HI 132 (70-110) 06/16/2021 14:50 Chloride Level HI 117 (102-112) 06/16/2021 14:50 Carbon Dioxide Level 24 (21-32) 06/16/2021 14:50 Blood Urea Nitrogen HI 26 (7-22) 06/16/2021 14:50 Creatinine Level 0.80 (0.55-1.02) 06/08/2021 04:00 PT 11.4 (9.2-12.0) 06/08/2021 04:00 INR 1.1 (0.9-1.2) 06/07/2021 11:25 PTT 23.2 (22.0-33.0) 06/07/2021 11:25 Hgb A1C NA 5.6 06/16/2021 05:40 Hgb LOW 9.4 (11.2-15.7) 06/16/2021 05:40 Hct LOW 29.5 (34.1-44.9) 06/16/2021 05:40 RBC LOW 2.82 (3.93-5.22) 06/16/2021 05:40 WBC HI 14.3 (4.5-10.5) 06/16/2021 05:40 Platelet Count 200 (163-369) 06/07/2021 11:25 Lactic Acid Level 1.0 (0.4-2.0) 06/16/2021 06:08 Troponin I Ultra HI 0.147 (0.015-0.045) 06/11/2021 07:30 pH Art HI 7.50 [...] Full Code Rapid Response Team Recommendation/Response : Called dayshift nurse at 1925 to obtain new vitals and rescore. MEWS high all day. CHAIN BUILDER not alerted. New score 5. Obtained new vitals and rescored to 2. HR was elevated earlier. Has prn metoprolol for heart rate above 120. Reviewed MEWS reporting and rescoring per protocol. Responds to voice. shift superintendent nurse has had patient before and reports no new concerns. Coreg due with night meds. Continue to monitor and call CHAIN BUILDER/MD as needed. Patient Condition at End of Event : No S/S of Acute Distress Patient Disposition Post Event : No change in location/level of care Rapid Response Patient Flow Coordinator #1 : HOWIE KILLIAN V, HOWIE SINGLETON RN - 06/16/2021 20:01 EDT Rapid Response Systems Assessment Oxygen Therapy Mode : Nasal cannula Oxygen Flow Rate : 5 Liter/Min Oxygen Saturation : 100 % Breath Sounds Auscultated : Anterior, Laterally All Lobes Breath Sounds : Diminished Cardiovascular Symptoms : None Heart Sounds : S1/S2 Heart Rhythm : Regular Cardiac Rhythm : Sinus tachycardia Edema Present : Anasarca Tori Best Motor Response : Localizing Tori Best Verbal Response : Confused Tori Eye Opening Response : To sound [place] Coma Score : 12 Level of Consciousness : Drowsy HOWIE KILLIAN RN - 06/16/2021 20:01 EDT documented in this encounter Plan of Treatment Not on file documented as of this encounter Visit Diagnoses Not on filedocumented in this encounter
--- OUTSIDE RECORDS SUMMARY | 2025-03-08 13:17 | XMS_ITS | Encounter Summary ---
Author Organization [employer] ([place], [place], [place], [place]) Address [address] [place] [address] Care Team Providers Care Community Facilitator Name Role Phone Unavailable Primary Care Provider Unavailabl e Encounter Details Date Type Department Care Team (Late st Contact Info) Description 07/21/2021 Transcribed Document [facility] [place] [address] [place] [address] ProvidergT MD [address] [place] [address] Social History Tobacco Use Types Packs/Day Years Used Date Smoking Tobacco: Never Assessed Comments Unknown Sex and Gender Information Value Date Recorded Sex Assigned at Not on file Legal Sex Female 2:39 PM CDT Gender Identity Not on file Sexual Orientation Not on file documented as of this encounter Miscellaneous Notes * Cerner Conversion Note - Tg Jones MD - 07/21/2021 9:41 PM DYE [employer]SE [employer] Pain Assessment Entered On: 07/24/2021 16:53 EST Performed On: 07/24/2021 15:41 EST by RACHEL GERBER RN Intervention Information: acetaminophen Performed by RACHEL GERBER RN on 07/24/2021 14:41:00 EST acetaminophen,650mg Oral,Pain (Mild 1-3) Pain Assessment Pain Assessment : Follow-up assessment Pain Scale Goal : 3 Pain Scale Used : 0-10 Scale Location : Headache, frontal Onset : Acute Quality : Aching Pain Radiation : No Pain Worsened by : Movement Pain Improved by : Medication Pain Intervention, Drug : Medicated Pain Improved by Intervention : Yes RACHEL GERBER RN - 07/24/2021 16:52 EST Pain Scale Intensity : 0 RACHEL GERBER RN - 07/24/2021 16:52 EST Image 4 - Images currently included in the form version of this document have not been included in the text rendition version of the form. documented in this encounter Plan of Treatment Not on file documented as of this encounter Visit Diagnoses Not on filedocumented in this encounter
--- OUTSIDE RECORDS SUMMARY | 2025-03-08 13:17 | XMS_ITS | Encounter Summary ---
Author Organization [employer] ([place], [place], [place], [place]) Address [address] [place] [address] Care Team Providers Care Ambulatory Analyst Name Role Phone Unavailable Primary Care Provider Unavailabl e Encounter Details Date Type Department Care Team (Late st Contact Info) Description 07/21/2021 Transcribed Document [facility] [place] Family Medicine [address] [place] [address] ProviderTg MD [address] [place] [address] Social History Tobacco Use Types Packs/Day Years Used Date Smoking Tobacco: Never Assessed Comments Unknown Sex and Gender Information Value Date Recorded Sex Assigned at Not on file Legal Sex Female 2:39 PM CDT Gender Identity Not on file Sexual Orientation Not on file documented as of this encounter Miscellaneous Notes * Cerner Conversion Note - Historical ProviderMD - 07/21/2021 11:00 PM SENIOR IOS SOFTWARE ENGINEER ED Event Note Entered On: 07/22/2021 0:29 EST Performed On: 07/21/2021 23:00 EST by CATHY OCONNELL RN ED Event Note ED Event Date/Time : 07/21/2021 23:00 EST ED Event Location : Assigned room ED Event Details : Nursing assessment additional narrative ED Description of Event : assumed care of pt. at this time CATHY OCONNELL RN - 07/22/2021 0:29 EST documented in this encounter Plan of Treatment Not on file documented as of this encounter Visit Diagnoses Not on filedocumented in this encounter
--- OUTSIDE RECORDS SUMMARY | 2025-03-08 13:17 | XMS_ITS | Encounter Summary ---
Author Organization [employer] ([place], [place], [place], [place]) Address [address] [place] [address] Care Team Providers Care Senior Trial Attorney Name Role Phone Unavailable Primary Care Provider Unavailabl e Encounter Details Date Type Department Care Team (Late st Contact Info) Description 06/23/2021 Transcribed Document [facility] [place] [address] [place] [address] ProviderTg MD [address] [place] [address] Social History Tobacco Use Types Packs/Day Years Used Date Smoking Tobacco: Never Assessed Comments Unknown Sex and Gender Information Value Date Recorded Sex Assigned at Not on file Legal Sex Female 2:39 PM CDT Gender Identity Not on file Sexual Orientation Not on file documented as of this encounter Miscellaneous Notes * Cerner Conversion Note - gT ProviderMD - 06/23/2021 11:20 AM CDT Patient: SUDHA SOLORZANO Age: 75 Years Sex: Female : 1945 Subjective Patient having bleeding around CorPak site with epistaxis. Patient received blood transfusion today and hemoglobin 6.3 this morning. Will need to receive another unit today. No other acute events overnight by nursing staff. Vital Signs T: 36.9 ??C TMIN: 36.6 ??C TMAX: 36.9 ??C HR: 91(Monitored) RR: 17 BP: 105/59 SpO2: 97% Oxygen Settings (Last) Oxygen Therapy Mode: Room air (06/23/21 09:09:00) Oxygen Flow Rate: 1 Liter/Min (06/19/21 15:00:00) Intake & Output Totals Last 24 Hours (7a-7a) Input Total: 529.98 mL Output Total: 0 mL Balance: 529.98 mL Physical Exam General: Chronically ill appearing female who is more alert today and talking more. HEENT: Moist oral mucosa Cardiac: RRR no m/r/g. 2/4 radial pulses bilaterally. Extremities: Trace LE edema bilaterally Lungs: CTAB with decreased breath sounds in the lower lobes bilaterally. Normal respiratory rate and effort on room air. GI: Abdomen soft, nontender, nondistended. Corpak in place with tube feeds. MSK: 3/5 strength in the UE and LE bilaterally. Very debilitated Neuro: AOx3 speech better today, significant improvement in mentation since Wednesday. No sensory or focal deficits. Skin: No rashes noted on exam Psych: Improved mood with flat affect Assessment/Plan 1. Acute hypoxemic respiratory failure 2. COVID Pneumonia 3. Pulmonary Embolism 4. Sepsis due to COVID and UTI POA (resolved) - Completed IV dexamethasone, Remdesivir and Actemera - CTA 06/09: Multiple small filling defects in the right lower lobe pulmonary artery consistent with PE - Patient on room air, asymptomatic, stopping Zosyn. - Completed antibiotics 06/23 - Holding Therapeutic Lovenox due to ongoing bleeding with blood loss anemia. 5. Acute metabolic encephalopathy with likely chronic underlying memory problems and ? dementia - MRI Brain 06/18 shows no acute infarcts - Neuro completed EEG monitoring some abnormal activity in frontotemporal region with no active seizures - Continue Depakote 250mg BID and will be continued on discharge per Neurology. - Neurology signed off 06/22 - Persistent encephalopathy after COVID illness and some underlying cognitive and psychiatric disorders. 6. Acute Blood Loss Anemia - Received 1 unit PRBC 06/22 - Hbg 6.3 today, ordering 1 unit PRBC - Holding Therapeutic Lovenox - Continue to monitor and transfuse for Hbg <7.0 - Folate and B12 level normal 7. Dysphagia - Speech recommended 06/16 1. Puree textures and thin liquids 2. Meds crushed with puree/pudding 3. Feed only when alert/positioned upright - Speech to reevaluate today and see if Corpak and tube feeds can be stopped and resume oral diet. 8. Acute kidney injury (resolved) Likely ATN/MYESHA [...] component 18. Hx of non-Hodgkin's lymphoma Disposition: Patient having epistaxis around CorPak site and ongoing acute blood loss anemia requiring blood transfusion yesterday and will require another unit today with hemoglobin 6.3 today, holding therapeutic Lovenox due to ongoing bleeding. Speech to reevaluate patient today to see if CorPak and tube feeding can be stopped and resumed on oral diet. Mentation is significantly improved with Depakote 250 mg twice daily. Case management working to find SNF and sending out referrals. Barriers to discharge need to correct anemia and figure out nutrition. VTE Prophylaxis - Medical Sequential Compression Device Start: 06/07/21 14:19:00 EDT, [...] mg= 5 mL, IV Push, Q3H, PRN minocycline, 100 mg= 2 Cap, Oral, Q12H MiraLax, 17 Gram= 1 Packet, Oral, Daily oxyCODONE, 5 mg= 1 Tab, Oral, Q4H, PRN Pepcid, 20 mg= 1 Tab, Oral, Daily predniSONE, 20 mg= 1 [...] Test Name Test Result Date/Time Sodium Level 138 mmol/L 06/23/2021 05:41 EDT Potassium Level 4.7 mmol/L 06/23/2021 05:41 EDT Chloride Level 107 mmol/L 06/23/2021 05:41 EDT Carbon Dioxide Level 25 mmol/L 06/23/2021 05:41 EDT Anion Gap 11 06/23/2021 05:41 EDT Glucose Level 140 mg/dL (High) 06/23/2021 05:41 EDT Blood Urea Nitrogen 26 mg/dL (High) 06/23/2021 05:41 EDT Creatinine Level 0.80 mg/dL 06/23/2021 05:41 EDT eGFR >60 mL/min/1.73m2 06/23/2021 05:41 EDT eGFR NonAfrican >60 mL/min/1.73m2 06/23/2021 05:41 EDT Bun/Creatinine 32.5 (High) 06/23/2021 05:41 EDT Calcium Level 8.1 mg/dL (Low) 06/23/2021 05:41 EDT Magnesium Level 2.0 mg/dL 06/23/2021 05:41 EDT Device Comment 1 Notified Nurse RBV 06/23/2021 05:47 EDT Device Comment 1 Notified Nurse RBV 06/23/2021 00:09 EDT Device Comment 1 Notified Nurse RBV 06/22/2021 17:13 EDT Glucose POC2 132 mg/dL (High) 06/23/2021 05:47 EDT Glucose POC2 119 mg/dL (High) 06/23/2021 00:09 EDT Glucose POC2 109 mg/dL 06/22/2021 17:13 EDT Folate Level 6.60 ng/mL 06/23/2021 05:41 EDT Vitamin B12 Level 2134 pg/mL (High) 06/23/2021 05:41 EDT WBC 10.2 K/uL 06/23/2021 07:41 EDT RBC 1.81 Million/uL (Low) 06/23/2021 07:41 EDT Hgb 6.3 g/dL (Low) 06/23/2021 07:41 EDT Hgb 7.5 g/dL (Low) 06/22/2021 16:55 EDT Hct 19.3 % (Low) 06/23/2021 07:41 EDT MCV 106.6 fL (High) 06/23/2021 07:41 EDT MCH 34.8 pg (High) 06/23/2021 07:41 EDT MCHC 32.6 Gram/dL 06/23/2021 07:41 EDT Platelet Count 152 K/uL (Low) 06/23/2021 07:41 EDT MPV 11.6 fL 06/23/2021 07:41 EDT RDW 18.6 % (High) 06/23/2021 07:41 EDT nRBC 0.590 (High) 06/23/2021 07:41 EDT Slide Review No 06/23/2021 07:41 EDT Electronically signed by Keven, [facility] Conversion Assembler Metal Building Cerner at 12/18/2022 9:13 AM CDT documented in this encounter Plan of Treatment Not on file documented as of this encounter Visit Diagnoses Not on filedocumented in this encounter
--- OUTSIDE RECORDS SUMMARY | 2025-03-08 13:17 | XMS_ITS | Encounter Summary ---
Author Organization [employer] ([place], [place], [place], [place]) Address [address] [place] [address] Care Team Providers Care Section Gang Name Role Phone Unavailable Primary Care Provider Unavailabl e Encounter Details Date Type Department Care Team (Late st Contact Info) Description 06/23/2021 Transcribed Document [facility] [place] [facility] [place] [address] [place] [address] ProviderTg MD [address] [place] [address] Social History Tobacco Use Types Packs/Day Years Used Date Smoking Tobacco: Never Assessed Comments Unknown Sex and Gender Information Value Date Recorded Sex Assigned at Not on file Legal Sex Female 2:39 PM CDT Gender Identity Not on file Sexual Orientation Not on file documented as of this encounter Miscellaneous Notes * Cerner Conversion Note - Tg Jones MD - 06/23/2021 1:54 PM CDT Patient: SUDHA SOLORZANO Age: 75 Years Sex: Female : 1945 Assessment/Plan 1. Multifactorial ATN secondary to infection/contrast-induced nephropathy in setting of being on DEMETRI inhibitors 2. Hypernatremia resolved 3. Mild acidosis, non-anion gap secondary to REBECCA(resolved) 4. PE 5. Covid pneumonitis Plan -improvement in Kidney function with creatinine down to 0.8 -Mild elevation of CK not clinically significant -Non-oliguric, with good urine output -Avoid nephrotoxins, please keep MAP above 65, Avoid IV Contrast -strict intake and output - Sodium trend:145-->143-->143-->139-->138 - Transfuse to keep H/H greater than 7/21 -Thanks for consultation, we will follow along with you periodically VTE Prophylaxis - Medical Sequential Compression Device Start: 06/07/21 14:19:00 EDT, Bilateral, Length: Knee High, While patient is in bed, Continuous Order (CARA DE LA ROSA) Subjective Patient was seen and evaluated by bedside Vital Signs T: 36.8 ??C TMIN: 36.6 ??C TMAX: 36.9 ??C HR: 94(Monitored) RR: 18 BP: 152/88 SpO2: 92% Oxygen Settings (Last) Oxygen Therapy Mode: Room air (06/23/21 09:09:00) Oxygen Flow Rate: 1 Liter/Min (06/19/21 15:00:00) Intake & Output Totals Last 24 Hours (7a-7a) Input Total: 529.98 mL Output Total: 0 mL Balance: 529.98 mL Physical Exam General: confused, lethargic , Not alert and oriented. Eye: Pupils are equal, round and reactive to light, Extraocular movements are intact. HENT: Normocephalic. Respiratory: Lungs are clear to auscultation, Respirations are non-labored, Breath sounds are equal, Symmetrical chest wall expansion. Cardiovascular: Normal rate, Regular rhythm, No murmur, No gallop. Gastrointestinal: Soft, Non-tender, Non-distended, No organomegaly. Integumentary: Warm, Dry, Intact, No rash. Neurologic: Not alert, Not oriented. Medications aspirin, 81 mg= 1 Tab, Feeding [...] 06/23/2021 05:41 EDT Device Comment 1 Notified MD RBV 06/23/2021 11:25 EDT Device Comment 1 Notified Nurse RBV 06/23/2021 05:47 EDT Device Comment 1 Notified Nurse RBV 06/23/2021 00:09 EDT Device Comment 1 Notified Nurse RBV 06/22/2021 17:13 EDT Glucose POC2 157 mg/dL (High) 06/23/2021 11:25 EDT Glucose POC2 132 mg/dL (High) 06/23/2021 [...] EDT Slide Review No 06/23/2021 07:41 EDT RBC Product Ready RBC Ready 06/23/2021 11:19 EDT # of Units: 1 Unit 06/23/2021 11:19 EDT Electronically signed by Keven, [facility] Conversion Miner Assistant Cerner at 12/18/2022 9:08 AM CDT documented in this encounter Plan of Treatment Not on file documented as of this encounter Visit Diagnoses Not on filedocumented in this encounter
--- OUTSIDE RECORDS SUMMARY | 2025-03-08 13:17 | XMS_ITS | Encounter Summary ---
Author Organization [employer] ([place], [place], [place], [place]) Address [address] [place] [address] Care Team Providers Care Mining Analyst Name Role Phone Unavailable Primary Care Provider Unavailabl e Encounter Details Date Type Department Care Team (Late st Contact Info) Description 07/21/2021 Transcribed Document [facility] [place] [address] [place] [address] ProviderTg MD [address] [place] [address] Social History Tobacco Use Types [...] - Tg ProviderMD - 07/21/2021 2:11 PM RETAIL CUSTODIAL ASSOCIATE ED Assessment Entered On: 07/21/2021 15:38 EST Performed On: 07/21/2021 15:35 EST by Josephine Sepulveda RN-PATIENT CARE BEDSIDE NON-EXEMPT ED Quick Look Assessment Level of Consciousness : Awake, Confused Affect/Behavior : Calm, Cooperative Orientation : Not oriented to place, Not oriented to situation, Not oriented to time Skin Temperature : Warm Skin Description : Normal for ethnicity Josephine Sepulveda RN-PATIENT CARE BEDSIDE NON-EXEMPT - 07/21/2021 15:35 EST ED General-Functional Assess Communication Barrier : None Primary Language : Angolan Any Spiritual/Cultural Needs or Requests : No Currently in Unsafe Situation : No Josephine Sepulveda RN-PATIENT CARE BEDSIDE NON-EXEMPT - 07/21/2021 15:35 EST Social Habits Smoking Status : Never (less than 100 in lifetime; none in last 30 days) Smokeless Tobacco Status : Never Desires Tobacco Cessation Calc : 0 Josephine Sepulveda RN-PATIENT CARE BEDSIDE NON-EXEMPT - 07/21/2021 15:35 EST Social History (As Of: 07/21/2021 15:38:21 EST) Tobacco: Smoking Status Never smoker. Second Hand [...] MANNY CHAVEZ, DUNCAN) Employment/School: Retired, Previous employment/school: [employer]. (Last Updated: 06/05/2016 13:55:00 EDT by MANNY CHAVEZ, RN) Neurologic ASMT, ED Neurologic Assessment WDL : WDL with exceptions (Comment: AMS since Wednesday per [place]. Pt has been actively tremoring and nursing facility thinks she may have a lithium toxicity. Pt is Bipolar and has anxiety. [Josephine Sepulveda RN-PATIENT CARE BEDSIDE NON-EXEMPT - 07/21/2021 15:35 EST] ) Neurological Symptoms : Difficulty with speech Level of Consciousness : Awake Affect/Behavior : Calm, Cooperative [place] Coma Scale Link : Open [facility] Josephine Sepulveda RN-PATIENT CARE BEDSIDE NON-EXEMPT - 07/21/2021 15:35 EST Tori Coma Tori Best Motor Response : Obey commands Nipomo Best Verbal Response : Confused N[place]omo Eye Opening Response : Spontaneous Tori Coma Score : 14 Josephine Sepulveda RN-PATIENT CARE BEDSIDE NON-EXEMPT - 07/21/2021 15:35 EST Electronically signed by Keven [facility] Conversion [employer] Systems Programmer Cerner at 12/18/2022 9:12 AM CDT documented in this encounter Plan of Treatment Not on file documented as of this encounter Visit Diagnoses Not on filedocumented in this encounter
--- OUTSIDE RECORDS SUMMARY | 2025-03-08 13:17 | XMS_ITS | Encounter Summary ---
Author Organization [employer] ([place], [place], [place], [place]) Address [address] [place] [address] Care Team Providers Care Driver'S License Reviewing Officer Name Role Phone Unavailable Primary Care Provider Unavailabl e Encounter Details Date Type Department Care Team (Late st Contact Info) Description 06/16/2021 Transcribed Document [facility] [place] [address] [place] [address] ProviderTg MD [address] [place] [address] Social History Tobacco Use Types Packs/Day Years Used Date Smoking Tobacco: Never Assessed Comments Unknown Sex and Gender Information Value Date Recorded Sex Assigned at Not on file Legal Sex Female 2:39 PM CDT Gender Identity Not on file Sexual Orientation Not on file documented as of this encounter Miscellaneous Notes * Cerner Conversion Note - Tg Jones MD - 06/16/2021 3:21 PM CDT Patient: SUDHA TIMMONS Age: 75 [...] had a COVID. Mother , cause unknown. 06/16: Patient was seen and examined, confused, lethargic, [...] BID, PRN: Agitation Core.5 mg, Oral, BID D5W 1,000 mL: 50 mL/Hr, IntraVENous DuoNeb 0.5 mg-2.5 mg/3 mL inhalation solution: 3 mL, Nebulized Inhalation, RT_QID Lopressor: 5 mg, IV Push, Q3H, PRN: Tachycardia Lovenox: 115 mg, SubCutaneous, [id number] Pepcid: 20 mg, Oral, Daily Robitussin: 1,200 mg, PEG Tube, BID SEROquel: 12.5 mg, Oral, Daily SEROquel: 25 mg, Oral, [id number] Zofran: 4 mg, IV Push, Q4H, PRN: Nausea aspirin: 81 mg, Oral, Daily atovaquone: 750 mg, Oral, BID cefTRIAXone: 2 Gram, 100 mL/Hr, IV Piggyback, [id number] dexAMETHasone: 10 mg, IV Push, Daily hydrOXYzine hydrochloride: 25 mg, Oral, At Bedtime, PRN: Sleep labetalol: 10 mg, IV Push, Q3H, PRN: Hypertension lactobacillus acidophilus: 1 Cap, Oral, Daily micafungin: 100 mg, 100 mL/Hr, IV Piggyback, [id number] oxyCODONE: 5 mg, Oral, Q4H, PRN: Pain [...] Oral, Daily, 30 Cap, 0 Refill(s), Medications (21) Active Scheduled: (14) albuterol-ipratropium inh 3 mL 3 mL, Nebulized Inhalation, RT_QID aspirin EC 81 mg tab 81 mg 1 Tab, Oral, Daily atovaquone 750 mg/5 mL liq 750 mg 5 mL, Oral, BID carvedilol 12.5 mg tab 12.5 mg 1 Tab, Oral, BID cefTRIAXone 2 Gram, IV Piggyback, [id number] dexAMETHasone 10 mg/1 mL inj 10 mg 1 mL, IV Push, Daily enoxaparin 60 mg/0.6 mL inj 115 mg 1.15 mL, SubCutaneous, Y39XNlb famotidine 20 mg tab 20 mg 1 Tab, Oral, Daily guaiFENesin 200 mg/10 mL liq 1,200 mg 60 mL, PEG Tube, BID lactobacillus acidophilus cap 1 Cap, Oral, Daily micafungin sodium 100 mg, IV Piggyback, J23MFox QUEtiapine 25 mg tab 25 mg 1 Tab, Oral, I87NIdp QUEtiapine 25 mg tab 12.5 mg 0.5 Tab, Oral, Daily rifaXIMIN 550 mg tab 550 mg 1 Tab, Oral, BID Continuous: (1) Dextrose 5% in Water 1,000 mL 1,000 mL, IntraVENous, 50 mL/Hr PRN: (6) hydrOXYzine hcl 25 mg tab 25 mg [...] Medical Hip pain, right / SNOMED CT 0372696854 / Confirmed At risk for sleep apnea / IMO 07577988 / Confirmed At risk for violence / IMO 16175002 / Confirmed Concussion / SNOMED CT 7478515594 / Confirmed concussion with loss of memory+ Disease caused by 2018 novel coronavirus / SNOMED CT 9885471792 / Confirmed Problem added by a rule: [id number]. Fall / SNOMED CT 9191043 / Confirmed HTN (hypertension) / SNOMED CT 5818717801 / Confirmed Depression / SNOMED CT 2569939791 / Confirmed Numbness and tingling / SNOMED CT 3218461933 / Confirmed numbness and tingling right thigh area to toes Osteoarthritis / SNOMED CT 6161390728 / Confirmed Pain / SNOMED CT 63610627 / Confirmed right buttocks pain Leg pain, right / SNOMED CT 548256059 / Confirmed sleep apnea / SNOMED CT 635893937 / Confirmed Insomnia / SNOMED CT 982764812 / Confirmed Tremor / SNOMED CT 58006112 / Confirmed, Active Problems (17) At risk [...] Last Charted Minimum Maximum Temp 98.1 (JUN 16 11:21) 98.1 (JUN 16 11:21) 98.4 (JUN 15 22:29) Mon HR 126 (MAY 18 11:55) 93 (MAY 17 16:40) 126 (MAY 18 11:55) Resp Rate H 22 (JUN 16 11:21) 16 (MAY 17 16:40) H 22 (JUN 16 11:21) SBP 98 (JUN 16 11:21) 98 (MAY 18 11:21) H 179 (JUN 15 22:29) DBP 77 (MAY 18 11:21) 77 (JUN 16 11:21) H 106 (JUN 16 09:19) MAP 80 (JUN 16 11:21) 80 (JUN 16 11:21) 118 (JUN 16 09:19) SpO2 L 93 (OCT 18 11:55) L 89 (JUN 15 22:29) 100 (JUN 15 20:42) General: confused, lethargiic , Not alert and [...] No rash. Neurologic: Not alert, Not oriented. Electrolytes([facility]) Results (Current Encounter/Past 24 Hours) Sodium Level 151 mmol/L ME 06/15/2021 06:59 Potassium Level 4.1 mmol/L 06/15/2021 06:59 Chloride Level 122 mmol/L ME 06/15/2021 06:59 Carbon Dioxide Level 25 mmol/L 06/15/2021 06:59 Anion Gap 8 LOW 06/15/2021 06:59 Blood Urea Nitrogen 31 mg/dL ME 06/15/2021 06:59 Glucose Level 159 mg/dL ME 06/15/2021 06:59 Calcium Level 8.4 mg/dL 06/15/2021 06:59 Creatinine Level 0.90 mg/dL 06/15/2021 06:59 Blood Gases (Current Encounter/Past 24 Hours) No Blood Gas Results Found (Past 24 Hours) JUN 16 05:40 \ L 9.4 / H 14.3 200 / L 29.5 \ Radiology Results (Last 48 hours) [id number] -- 06/07/2021 12:36 CR Chest 1 Vw [...] in Kidney function with creatinine down to 0.9 today -Mild elevation of CK not clinically significant -None oliguric -Avoid nephrotoxins, please keep MAP above 65, Avoid IV Contrast -Daily renal function please, strict intake and output -will increase free Water to 70 ml/hour ( currently 35 ml/hour ) due to Hypernatremia -Thanks for consultation, follow along with you Florence Kennedy MD documented in this encounter Plan of Treatment Not on file documented as of this encounter Visit Diagnoses Not on filedocumented in this encounter
--- OUTSIDE RECORDS SUMMARY | 2025-03-08 13:17 | XMS_ITS | Encounter Summary ---
Author Organization [employer] ([place], [place], [place], [place]) Address [address] [place] [address] Care Team Providers Care Grease Worker Name Role Phone Unavailable Primary Care Provider Unavailabl e Encounter Details Date Type Department Care Team (Late st Contact Info) Description 06/23/2021 Transcribed Document [facility] [place] [address] [place] [address] ProviderTg MD [address] [place] [address] Social History Tobacco Use Types Packs/Day Years Used Date Smoking Tobacco: Never Assessed Comments Unknown Sex and Gender Information Value Date Recorded Sex Assigned at Not on file Legal Sex Female 2:39 PM CDT Gender Identity Not on file Sexual Orientation Not on file documented as of this encounter Miscellaneous Notes * Cerner Conversion Note - Tg ProviderMD - 06/23/2021 2:00 AM CDT Caseworker Protective Services Details Entered On: 06/23/2021 1:28 EDT Performed On: 06/23/2021 2:00 EDT by Ran Chew RN-PATIENT CARE [...] Chew RN-PATIENT CARE BEDSIDE NON-EXEMPT - 06/23/2021 1:28 EDT documented in this encounter Plan of Treatment Not on file documented as of this encounter Visit Diagnoses Not on filedocumented in this encounter
--- OUTSIDE RECORDS SUMMARY | 2025-03-08 13:17 | XMS_ITS | Encounter Summary ---
Author Organization [employer] ([place], [place], [place], [place]) Address [address] [place] [address] Care Team Providers Care Resident Service Coordinator Name Role Phone Unavailable Primary Care Provider Unavailabl e Encounter Details Date Type Department Care Team (Late st Contact Info) Description 06/23/2021 Transcribed Document [facility] [place] [address] [place] [address] ProviderTg MD [address] [place] [address] Social History Tobacco Use Types Packs/Day Years Used Date Smoking Tobacco: Never Assessed Comments Unknown Sex and Gender Information Value Date Recorded Sex Assigned at Not on file Legal Sex Female 2:39 PM CDT Gender Identity Not on file Sexual Orientation Not on file documented as of this encounter Miscellaneous Notes * Cerner Conversion Note - Tg ProviderMD - 06/23/2021 12:06 PM CDT Swallow Evaluation Entered On: 06/23/2021 12:13 EDT Performed On: 06/23/2021 12:07 EDT by YELENA CHARLES, BLANCHE General Information Visit Type, AGRICULTURAL SCIENCE PROFESSOR : Initial evaluation Patient Orders : Speech Language Pathology Swallow Evaluation and Treatment -111 Start: 06/23/21 12:06:00 EDT, Routine, For Swallow Eval and Treat - MARY BARRAGAN DO Admission Date : Admission Date/Time: 06/07/21 12:36:00 Medical Chart Reviewed, AGRICULTURAL SCIENCE PROFESSOR : Yes Personal Devices : Personal Devices No Devices Recorded Assistive Devices : Assistive Devices No Devices Recorded Active Diagnoses : 06/07/2021 12:00 Altered mental status 06/07/2021 12:00 Sepsis, unspecified organism 06/07/2021 12:00 Urinary tract infection, site not specified Therapy Diagnosis, AGRICULTURAL SCIENCE PROFESSOR : Pt presents with functional oropharyngeal skills. Recommendations: 1. Regular/thin 2. Medication per RN 3. No further evaluation/tx for oropharyngeal dysphagia indicated Isolation Maintained : Droplet, Other: Previous Swallow Precautions : Bedside previously this admission with recommendations for puree/thin Diet/Intake Prior to Current Admission : Soft/thin, pt unable to state Diet/Intake During Current Admission : Puree/thin Intubation Comment, AGRICULTURAL SCIENCE PROFESSOR : N/A Vital Signs RTF : Vitals Temp BP [...] Initial Wt: 06/07 113.6 kg 250 lb Respiratory Assessment Comment : Nasal cannula YELENA CHARLES SLP - 06/23/2021 12:07 EDT General Status Patient Received Status, AGRICULTURAL SCIENCE PROFESSOR : Supine in bed Patient Left Status, AGRICULTURAL SCIENCE PROFESSOR : Long sitting in bed YELENA CHARLES SLP - 06/23/2021 12:07 EDT Pain Assessment Pain Scaled Used : 0-10 Pain scale Pain Score Pre-Intervention : 0 YELENA CHARLES SLP - 06/23/2021 12:07 EDT Image 1 - Images currently included in the form version of this document have not been included in the text rendition version of the form. Oral Mechanism Dysarthria : No Resonance Types : Appropriate Oral Mechanism for Daily Living : Intact AGRICULTURAL SCIENCE PROFESSOR Cough : Strong Facial Appearance: : Symmetrical Labial Appearance : Symmetrical Labial Function : All function intact Dental/Orthodontia : Edentulous Lingual Appearance : Symmetrical Lingual Function : All function intact YELENA CHARLES SLP - 06/23/2021 12:07 EDT Bedside Swallow Swallow Outcome BS Swallow : Intact Head Control BS Swallow : Neutral head position Presentation Style BS Swallow : Self Swallow Position BS Swallow : Upright 90 degrees Trunk Control BS Swallow : Upright centered position Consistencies Trialed BS Swallow : Thin by straw, Pureed, Regular solids YELENA CHARLES SLP - 06/23/2021 12:07 EDT Swallow Impressions Impressions, BS Swallow : No evidence of dysphagia present Contributing Factors BS Swallow : Difficulty following directions Awareness/Strategies, Swallow : Limited to none Swallowing Outcome Measures : Functional Oral Intake Scale (FOIS) Functional Oral Intake Scale (FOIS) : Level VII Bedside Swallow Overall Impressions : 75 y/o [...] to UTI and COVID-19 pneumonia. Neuro consulted earlier this admission due to continued encephalopathy. History of cognitive deficits and mental health issues. Head CT (-); MRI pending (-). AGRICULTURAL SCIENCE PROFESSOR consulted for dysphagia re-evaluation given restricted diet. Today, pt is alert and readily participates in swallow evaluation. Much improved mentation today when compared to previous visits. Oral skills are slow but appear functional for swallowing. No overt pharyngeal patterns appreciated with any trialed consistency. Pt appears safe for a regular diet and thin liquids. Medication per RN. No further evaluation/tx for oropharyngeal dysphagia is indicated. YELENA CHARLES SLP - 06/23/2021 12:07 EDT Swallow Recommendations Recommended Diet Type, SwRec : Regular Recommended Liquid Diet, SwRec : Thin Feeding Presentation Style, SwRec : No restrictions Swallow Position, SwRec : Upright 90 degrees Comp Strategies/Sw Precautions, SwRec : Upright for meals Supervision Level w/Meals, SwRec : Assist, minimal Recommended Med Present, SwRec : As per nursing YELENA CHARLES SLP - 06/23/2021 12:07 EDT Therapy Indication Assessment AGRICULTURAL SCIENCE PROFESSOR Indicated : No AGRICULTURAL SCIENCE PROFESSOR Not Indicated : At prior level of function AGRICULTURAL SCIENCE PROFESSOR Interdisciplinary Consultation Needs : No AGRICULTURAL SCIENCE PROFESSOR Rehabilitation Potential : At prior level of function YELENA CHARLES SLP - 06/23/2021 12:07 EDT Education Barriers To Learning : Acuity of Illness, Cognitive deficit Individuals Taught : Patient Readiness to Learn : Cooperative Readiness to Learn : Explanation YELENA CHARLES SLP - 06/23/2021 12:07 EDT AGRICULTURAL SCIENCE PROFESSOR Education Assessment Grid 1 Diet Recommendation : Verbalizes understanding Evaluation Results : Verbalizes understanding YELENA CHARLES SLP - 06/23/2021 12:[address] [facility] Charges Evaluation Swallowing Function : 1 YELENA CHARLES SLP - 06/23/2021 12:07 EDT Anticipated Discharge Needs, AGRICULTURAL SCIENCE PROFESSOR Anticipated Discharge to : Rehab, high intensity Recommend Continued Therapy at Discharge : No YELENA CHARLES SLP - 06/23/2021 12:07 EDT documented in this encounter Plan of Treatment Not on file documented as of this encounter Visit Diagnoses Not on filedocumented in this encounter
--- OUTSIDE RECORDS SUMMARY | 2025-03-08 13:17 | XMS_ITS | Encounter Summary ---
Author Organization [employer] ([place], [place], [place], [place]) Address [address] [place] [address] Care Team Providers Care Healthcare Sales Representative Name Role Phone Unavailable Primary Care Provider Unavailabl e Encounter Details Date Type Department Care Team (Late st Contact Info) Description 06/22/2021 Transcribed Document [facility] [place] [address] [place] [address] ProviderTg MD [address] [place] [address] Social History Tobacco Use Types Packs/Day Years Used Date Smoking Tobacco: Never Assessed Comments Unknown Sex and Gender Information Value Date Recorded Sex Assigned at Not on file Legal Sex Female 2:39 PM CDT Gender Identity Not on file Sexual Orientation Not on file documented as of this encounter Miscellaneous Notes * Cerner Conversion Note - Tg Jones MD - 06/22/2021 1:00 PM CDT Patient: SUDHA TIMMONS Age: 75 [...] Contrast -strict intake and output - Sodium trend:145-->143-->143-->139 - Transfuse to keep H/H greater than 7/21 -Thanks for consultation, we will follow along with you periodically VTE Prophylaxis - Medical Enoxaparin 115 mg, SubCutaneous, Inj, [id number], Routine, Start 06/16/21 21:00:00 EDT, 06/16/21 21:00:00 EDT (ENRIQUE LINDSEY) Sequential Compression Device Start: 06/07/21 14:19:00 EDT, Bilateral, Length: Knee High, While patient is in bed, Continuous Order (CARA DE LA ROSA) Subjective Patient was seen and evaluated by bedside Vital Signs T: 36.5 ??C TMIN: 36.2 [...] mL Balance: 2779.96 mL Physical Exam General: confused, lethargic , [...] PRN Lovenox, 115 mg= 1.15 mL, SubCutaneous, [id number] minocycline, 100 mg= 2 Cap, Oral, Q12H [...] Lymph # 1.81 x10(3)/uL 06/22/2021 05:30 EDT [place] % 9.3 % (High) 06/22/2021 05:30 EDT [place] # 0.99 K/uL 06/22/2021 05:30 EDT Eos [...] OK 06/22/2021 07:13 EDT Electronically signed by [facility], [facility] Conversion Stuffed Casing Tier Cerner at 12/18/2022 9:12 AM CDT documented in this encounter Plan of Treatment Not on file documented as of this encounter Visit Diagnoses Not on filedocumented in this encounter
--- OUTSIDE RECORDS SUMMARY | 2025-03-08 13:17 | XMS_ITS | Encounter Summary ---
Author Organization [employer] ([place], [place], [place], [place]) Address [address] [place] [address] Care Team Providers Care Industrial Design Engineer Name Role Phone Unavailable Primary Care Provider Unavailabl e Encounter Details Date Type Department Care Team (Late st Contact Info) Description 06/23/2021 Transcribed Document [facility] [place] [address] [place] [address] ProviderTg MD [address] [place] [address] Social History Tobacco Use Types Packs/Day Years Used Date Smoking Tobacco: Never Assessed Comments Unknown Sex and Gender Information Value Date Recorded Sex Assigned at Not on file Legal Sex Female 2:39 PM CDT Gender Identity Not on file Sexual Orientation Not on file documented as of this encounter Miscellaneous Notes * Cerner Conversion Note - Tg Jones MD - 06/23/2021 3:18 PM CDT Patient: SUDHA TIMMONS Age: 75 [...] -> 3K 06/18 - no Hx available 06/19 - no Hx available 06/20 - no hx available 06/21 - no hx available 06/23 afebrile, alert, disoriented but conversant and able to remember to remember dates and other details regarding family members Remains on prednisone 30 mg daily and is on slow taper She has been on RA since 06/20 CRP normal on 06/22 Zosyn stopped today by hospitalist She remains on atovaquone and minocycline ROS - not available - discussed with staff PAST MEDICAL HISTORY Non-Hodgkin's lymphoma- finished therapy [...] Status Current medications: (Selected) Inpatient Medications Ordered Ativan: 0.5 mg, IV Push, BID, PRN: Agitation Colace: 100 mg, Oral, Daily Core.5 mg, Oral, BID Depakote: 250 mg, Oral, BID Dextrose 50% injection: 12.5 [...] 5 mg, IV Push, Q3H, PRN: Tachycardia MiraLax: 17 Gram, Oral, Daily Pepcid: 20 [...] Hypertension lactobacillus acidophilus: 1 Cap, Oral, Daily loperamide: 2 mg, Oral, Q4H, PRN: Diarrhea minocycline: 100 mg, Oral, Q12H oxyCODONE: 5 mg, Oral, Q4H, PRN: Pain (Severe 7-10) predniSONE: 10 mg, Oral, Daily predniSONE: 20 mg, Oral, Daily predniSONE: 5 mg, Oral, [...] Last Charted Minimum Maximum Temp 97.4 (JUN 23:) 97.4 (JUN 23:) 98 (JUN 23 01:12) Mon HR 92 (JUN 23:) 91 (JUN 22 18:00) 95 (JUN 22 20:00) Resp Rate 18 (JUN 23 11:28) 17 (JUN 23 09:00) 18 (JUN 22 20:00) SBP 117 (JUN 23:) 93 (JUN 23 01:12) H 152 (JUN 23 11:28) DBP 70 (JUN 23:) L 56 (JUN 23 01:12) H 101 (JUN 22 18:00) MAP 86 (JUN 23:) 66 (JUN 23 01:12) 114 (JUN 22 18:00) SpO2 98 (JUN 23 14:15) L 92 (JUN 23 11:28) 98 (JUN 22 20:00) General: no distress, On RA Eye: Normal conjunctiva. HENT: Normocephalic, Oral mucosa is moist. Neck: Supple, Non-tender. Respiratory: Lungs are clear to auscultation, Breath sounds are equal. Cardiovascular: Normal rate, Normal peripheral perfusion, Mild LE edema Gastrointestinal: Soft, Non-tender Musculoskeletal: No deformity. Integumentary: Warm, Dry. Neurologic: groggy, confused. Psychiatric: not Cooperative. Review / Management Results review: Labs (Last four charted values) WBC 10.2 (JUN 23) H 10.6 (JUN 22) H 10.8 (JUN 21) 9.8 (JUN 20) HB L 6.3 (JUN 23) L 7.5 (JUN 22) L 6.2 (JUN 22) L 7.1 (JUN 21) HCT L 19.3 (JUN 23) L 19.5 (JUN 22) L 21.9 (JUN 21) L 23.6 (JUN 20) Plt L 152 (JUN 23) 168 (JUN 22) 184 (MAY 23) 189 (JUN 20) Na 138 (JUN 23) 139 (JUN 22) 143 (JUN 21) 143 (JUN 20) K 4.7 (JUN 23) 4.6 (MAY 24) 4.9 (JUN 21) 5.1 (JUN 20) Cl 107 (JUN 23) 110 (MAY 24) 112 (JUN 21) H 114 (JUN 20) CO2 25 (JUN 23) 23 (JUN 22) 24 (JUN 21) 26 (JUN 20) BUN H 26 (JUN 23) H 28 (MAY 24) H 26 (MAY 23) H 27 (JUN 20) Cr 0.80 (JUN 23) 0.80 (OCT 24) 0.80 (OCT 23) 0.70 (MAY 22) Glu R H 140 (JUN 23) H 140 (MAY 24) H 143 (MAY 23) H 152 (JUN 20) Ca L 8.1 (JUN 23) L 7.9 (MAY 24) L 8.3 (MAY 23) L 7.9 (MAY 22) Lactic 1.6 (JUN 17) 1.0 (JUN 07) PT 11.4 (JUN 08) 11.4 (JUN 07) 11.4 (JUN 07) INR 1.1 (JUN 08) 1.1 (JUN 07) 1.1 (JUN 07) PTT 23.2 (JUN 07) AST 27 (JUN 21) 26 (JUN 19) 29 (JUN 18) 36 (JUN 17) ALT 33 (JUN 21) 28 (JUN 19) 27 (JUN 18) 22 (JUN 17) ALK P 105 (JUN 21) 106 (JUN 19) 110 (JUN 18) 130 (JUN 17) T Bili 0.6 (JUN 21) 0.3 (JUN 19) 0.4 (JUN 18) 0.3 (JUN 17) PTN L 4.5 (JUN 21) L 4.4 (JUN 19) L 4.5 (JUN 18) L 4.7 (JUN 17) ALB L 2.3 (JUN 21) L 2.1 (JUN 19) L 2.2 (JUN 18) L 2.1 (JUN 17) Troponin H 0.075 (JUN 22) H 0.096 (JUN 20) H 0.094 (JUN 18) H 0.147 (JUN 16) . Impression and Plan IMPRESSION -- Covid [...] with CD4 214 -- Bipolar RECOMMENDATIONS -- Off remdesivir and dexamethasone -- Actemra 8mg/kg x 1 06/09 -- Cd4 count - 214 -- strongyloides ab - negative She has not been given ivermectin -- Low threshold for covering for opportunistic pathogens in view of NHL history and CD4 214 -- Agree with stopping Zosyn -- continue minocycline for now -- continue atovaquone while on significant doses of prednisone Complex case documented in this encounter Plan of Treatment Not on file documented as of this encounter Visit Diagnoses Not on filedocumented in this encounter
--- OUTSIDE RECORDS SUMMARY | 2025-03-08 13:17 | XMS_ITS | Encounter Summary ---
Author Organization [employer] ([place], [place], [place], [place]) Address [address] [place] [address] Care Team Providers Care Cork Tipper Name Role Phone Unavailable Primary Care Provider Unavailabl e Encounter Details Date Type Department Care Team (Late st Contact Info) Description 06/16/2021 Transcribed Document [facility] [place] [address] [place] [address] ProviderTg MD [address] [place] [address] Social History Tobacco Use Types Packs/Day Years Used Date Smoking Tobacco: Never Assessed Comments Unknown Sex and Gender Information Value Date Recorded Sex Assigned at Not on file Legal Sex Female 2:39 PM CDT Gender Identity Not on file Sexual Orientation Not on file documented as of this encounter Miscellaneous Notes * Cerner Conversion Note - Historical ProviderMD - 06/16/2021 10:25 AM CDT Attempt to Treat, PT Entered On: 06/16/2021 13:29 EDT Performed On: 06/16/2021 10:25 EDT by CEDRIC PALMA PT Attempt to Treat Unable to Treat Due To : Acuity of Illness, Patient on hold Inability to Treat Comment : per discussion with RN HOLD PTx/OTx again today due to pt's acuity, PTx/OTx explained pt was EVAL'd on 06/08 and HELD since, Will DISCONTINUE POC for PTx/OTx at this time Notification : RN(Lacey)/PTx/OTx CEDRIC PALMA, PT - 06/16/2021 13:28 EDT Electronically signed by Julian Baca Conversion Senior Manager Creative Services Cerner at 12/18/2022 9:09 AM CDT documented in this encounter Plan of Treatment Not on file documented as of this encounter Visit Diagnoses Not on filedocumented in this encounter
--- OUTSIDE RECORDS SUMMARY | 2025-03-08 13:17 | XMS_ITS | Encounter Summary ---
Author Organization [employer] ([place], [place], [place], [place]) Address [address] [place] [address] Care Team Providers Care Injection Molding Operator Name Role Phone Unavailable Primary Care Provider Unavailabl e Encounter Details Date Type Department Care Team (Late st Contact Info) Description 06/16/[address] [facility] Radiology [address] [place] [address] Margo Alvarez MD [address] [place] [id number] Social History Tobacco Use Types Packs/Day Years Used Date Smoking Tobacco: Never Assessed Comments Unknown Sex and Gender Information Value Date Recorded Sex Assigned at Not on file Legal Sex Female 2:39 PM CDT Gender Identity Not on file Sexual Orientation Not on file documented as of this encounter Miscellaneous Notes * Cerner Conversion Note - Margo Alvarez MD - 06/16/2021 11:00 AM EDT Patient: SUHDA TIMMONS Age: 75 years Sex: Female : 1945 Associated Diagnoses: None Author: MARGO ALVAREZ MD-INT Basic Information Date of encounter 06/16/21 Patient continues to remain poorly responsive Nurse reports she does become fidgety and tries to pull at lines On highflow oxygen now No fever Tolreating her tube feeds. Physical Examination VS/Measurements Vitals Signs (last 24 hrs) Last Charted Minimum Maximum Temp 98.1 (JUN 16 11:21) 98.1 (JUN 16 11:21) 98.4 (JUN 15 22:29) Mon HR 126 (JUN 16 11:55) 93 (JUN 15 16:40) 126 (JUN 16 11:55) Resp Rate H 22 (JUN 16:21) 16 (JUN 15 16:40) H 22 (JUN 16 11:21) SBP 98 (JUN 16 11:21) 98 (JUN 16 11:21) H 179 (JUN 15 22:29) DBP 77 (JUN 16 11:21) 77 (JUN 16 11:21) H 106 (JUN 16 09:19) MAP 80 (JUN 16 11:21) 80 (JUN 16 11:21) 118 (JUN 16 09:19) SpO2 L 93 (JUN 16 11:55) L 89 (JUN 15 15:20) 100 (JUN 15 20:42) General: No acute distress, on HF, Not alert and oriented. Eye: Normal conjunctiva. Sclera: Not icteric. HENT: Normocephalic. Neck: Supple, Non-tender. Respiratory: Lungs are clear to auscultation, Breath sounds are equal, Symmetrical chest wall expansion, with scattered rhonchi bilateral, hsa a port on left side of chest. Cardiovascular: Regular rhythm, No edema, tachycardic. Gastrointestinal: Soft, Non-tender, Non-distended, Normal bowel sounds, No organomegaly. Musculoskeletal: No tenderness, No swelling. Integumentary: Warm, [place], Moist. Neurologic: keeps eyes closed and does not follow commands and or interact. , Not alert, Not oriented. Psychiatric: cannot check. Review / Management Labs reviewed and BMP pending. Impression and Plan Acute hypoxemic respiratory failure secondary to covid and concomitant PE -Vaccinated with Pfizer per record review. -Continuous oxygen monitoring, uptitrated on optiflow -Continue dexamethasone 10 iv bid, remdesivir, s/p actemra 10/, scheduled inhaler, empiric abx and ID following. On highflow oxygen now. Acute metabolic encephalopathy with likely chronic underlying memory problems and ? dementia Patient continues to remain poorly responsive despite progress withher oxygen requirements now CT head negative and had normal ammonia level. Off lithium (reportedly had recent problems as outpt and advised to stop lithium as per discussion with her son) with continued altered mentation obtain neuro input. Sepsis due to UTI and COVID-19 pneumonia, [...] Hypernatremia: Sodium with rising trend again and resumed free water and obtain repeat BMP Bipolar disorder:As per discussion with her son [...] living children ke Escobar daughter Harley . Placed Corpak for Tube feeding and Meds Continue optiflow/full dose lovenox with PE and eventual OAC and free water at risk for Deterioration and intubation still. Neuro input given her continued altered mentation despite some progress with her oxygen needs. DISPOSITSION : Uncertain at this time Patient admitted with covid and acute respiratory failure worsening . However with altered mentation and poor responsivenss and currently with corpak and tube feeds. Unable to participate with therapy etc. Obtain neuro input Discussed with ke Timmons over the phone on 06/16 and discussed during MDR. Time spent with above 30 minutes documented in this encounter Plan of Treatment Not on file documented as of this encounter Visit Diagnoses Not on filedocumented in this encounter
--- OUTSIDE RECORDS SUMMARY | 2025-03-08 13:17 | XMS_ITS | Encounter Summary ---
Author Organization [email or web address] ([place], [place], [place], [place]) Address [address] [place] [address] Care Team Providers Care Aircraft Part Assembler Name Role Phone Unavailable Primary Care Provider Unavailabl e Encounter Details Date Type Department Care Team (Late st Contact Info) Description 06/16/2021 Transcribed Document [facility] Pulm & Critical Care Medicine [address] [place] [address] [address] [place] [address] Enrique Lindsey MD [address] [facility] [address] [place] [address] Social History Tobacco Use Types Packs/Day Years Used Date Smoking Tobacco: Never Assessed Comments Unknown Sex and Gender Information Value Date Recorded Sex Assigned at Not on file Legal Sex Female 2:39 PM CDT Gender Identity Not on file Sexual Orientation Not on file documented as of this encounter Miscellaneous Notes * Cerner Conversion Note - Enrique Lindsey MD - 06/16/2021 6:00 PM EDT Patient: SUDHA TIMMONS Age: 75 [...] trending up, ferritin trending down. Tolerating TF. Intake & Output Totals Last 24 Hours (7a-7a) Intake (7 Events) Medications (161.25 mL) Output (1 Events) Hamlin Catheter (550 mL) Input Total: 161.25 mL Output Total: 550 mL Balance: -388.75 mL Review of Systems Neurologic: Confusion. Unable [...] BID D5W 1,000 mL: 50 mL/Hr, IntraVENous Dextrose 50% injection: 12.5 Gram, IV Push, [...] Q3H, PRN: Tachycardia Lovenox: 115 mg, SubCutaneous, [id number] Pepcid: 20 mg, Oral, Daily Robitussin: 1,200 mg, PEG Tube, BID SEROquel: 12.5 mg, Oral, Daily SEROquel: 25 mg, Oral, [id number] Zofran: 4 mg, IV Push, Q4H, PRN: Nausea aspirin: 81 mg, Oral, Daily atovaquone: 750 mg, Oral, BID cefTRIAXone: 2 Gram, 100 mL/Hr, IV Piggyback, [id number] dexAMETHasone: 10 mg, IV Push, Daily glucagon: [...] micafungin: 100 mg, 100 mL/Hr, IV Piggyback, [id number] oxyCODONE: 5 mg, Oral, Q4H, PRN: Pain [...] 0 Refill(s), Medications (29) Active Scheduled: (15) albuterol-ipratropium inh 3 mL 3 mL, Nebulized Inhalation, RT_QID aspirin EC 81 mg tab 81 mg 1 Tab, Oral, Daily atovaquone 750 mg/5 mL liq 750 mg 5 mL, Oral, BID carvedilol 12.5 mg tab 12.5 mg 1 Tab, Oral, BID cefTRIAXone 2 Gram, IV Piggyback, [id number] dexAMETHasone 10 mg/1 mL inj 10 mg 1 mL, IV Push, Daily enoxaparin 60 mg/0.6 mL inj 115 mg 1.15 mL, SubCutaneous, [id number] famotidine 20 mg tab 20 mg 1 Tab, Oral, Daily guaiFENesin 200 mg/10 mL liq 1,200 mg 60 mL, PEG Tube, BID insulin regular 1 unit/0.01 mL inj 3mL Scale A, SubCutaneous, Q6H lactobacillus acidophilus cap 1 Cap, Oral, Daily micafungin sodium 100 mg, IV Piggyback, [id number] QUEtiapine 25 mg tab 25 mg 1 Tab, Oral, [id number] QUEtiapine 25 mg tab 12.5 mg 0.5 Tab, Oral, Daily rifaXIMIN 550 mg tab 550 mg 1 Tab, Oral, BID Continuous: (1) Dextrose 5% in Water 1,000 mL 1,000 mL, IntraVENous, 50 mL/Hr PRN: (13) dextrose 50% 25 g/50 mL inj syr [...] Medical Hip pain, right / SNOMED CT 0308305883 / Confirmed At risk for sleep apnea / IMO 67588294 / Confirmed At risk for violence / IMO 82804084 / Confirmed Concussion / SNOMED CT 4462163105 / Confirmed concussion with loss of memory+ Disease caused by 2019 novel coronavirus / SNOMED CT 3710086143 / Confirmed Problem added by a rule: [id number]. Fall / SNOMED CT 7705989 / Confirmed HTN (hypertension) / SNOMED CT 2376372599 / Confirmed Depression / SNOMED CT 6835145800 / Confirmed Numbness and tingling / SNOMED CT 7227816813 / Confirmed numbness and tingling right thigh area to toes Osteoarthritis / SNOMED CT 6583057184 / Confirmed Pain / SNOMED CT 15510740 / Confirmed right buttocks pain Leg pain, right / SNOMED CT 930432222 / Confirmed sleep apnea / SNOMED CT 286483333 / Confirmed Insomnia / SNOMED CT 837121495 / Confirmed Tremor / SNOMED CT 49563089 / Confirmed, Active Problems (17) At risk [...] 11:21) 98.4 (JUN 15 22:29) Mon HR 85 (JUN 16 16:57) 85 (JUN 16 16:57) 126 (JUN 16 11:55) Resp Rate H 22 (JUN 16 11:21) 16 (JUN 15 22:29) H 22 (JUN 16 11:21) SBP 98 (JUN 16 11:21) 98 (JUN 16 11:21) H 179 (JUN 15 22:29) DBP 77 (JUN 16 11:21) 77 (JUN 16 11:21) H 106 (JUN 16 09:19) MAP 80 (JUN 16:21) 80 (JUN 16 11:21) 118 (JUN 16 09:19) SpO2 96 (JUN 16 16:57) L 89 (JUN 15 22:29) 100 (JUN 15 20:42) General: Mild distress, On Optiflow , confused [...] Labs (Last four charted values) WBC H 14.3 (JUN 16) H 10.9 (JUN 15) H 12.3 (MAY 16) H 12.0 (MAY 15) HB L 9.4 (JUN 16) L 9.8 (JUN 15) L 10.4 (MAY 16) L 10.9 (MAY 15) HCT L 29.5 (OCT 18) L 31.3 (OCT 17) L 32.6 (OCT 16) 34.3 (OCT 15) Plt 200 (OCT 18) 203 (OCT 17) See Comment (OCT 17) 212 (OCT 16) Na 144 (OCT 18) H 151 (OCT 17) 146 (OCT 16) 143 (OCT 15) K 5.1 (OCT 18) 4.1 (OCT 17) 3.9 (OCT 16) 3.6 (OCT 15) Cl H 117 (OCT 18) H 122 (OCT 17) H 119 (OCT 16) H 114 (OCT 15) CO2 24 (OCT 18) 25 (OCT 17) 22 (OCT 16) 22 (OCT 15) BUN H 26 (OCT 18) H 31 (OCT 17) H 49 (OCT 16) H 60 (OCT 15) Cr 0.80 (OCT 18) 0.90 (OCT 17) H 1.30 (OCT 16) H 1.80 (OCT 15) Glu R H 214 (MAY 18) H 159 (OCT 17) H 178 (OCT 16) H 143 (OCT 15) Ca L 8.3 (OCT 18) 8.4 (OCT 17) 8.6 (OCT 16) 8.4 (OCT 15) Lactic 1.0 (MAY 09) PT 11.4 (MAY 10) 11.4 (MAY 09) 11.4 (MAY 09) INR 1.1 (MAY 10) 1.1 (MAY 09) 1.1 (MAY 09) PTT 23.2 (MAY 09) AST H 87 (MAY 15) H 127 (MAY 13) H 128 (MAY 12) H 210 (MAY 11) ALT 24 (MAY 15) H 67 (MAY 13) H 98 (MAY 12) H 143 (MAY 11) ALK P 88 (MAY 15) 80 (OCT 13) 88 (OCT 12) 101 (OCT 11) T Bili 0.4 (MAY 15) 0.4 (MAY 13) 0.5 (MAY 12) 0.9 (MAY 11) PTN L 5.0 (MAY 15) L 5.2 (OCT 13) L 5.4 (OCT 12) L 5.9 (OCT 11) ALB L 2.3 (MAY 15) L 2.1 (MAY 13) L 2.2 (OCT 12) L 2.4 (OCT 11) Troponin H 0.147 (JUN 16) H 0.447 (JUN 14) H 0.438 (JUN 14) C 0.845 (JUN 12) . JUN 16 14:50 144 H 117 H 26 / H 214 5.1 24 0.80 \ MAY 15 04:00 \ L 10.9 / H 12.0 231 / 34.3 \Blood Gases (Current Encounter/Past 24 Hours) No Blood Gas Results Found (Past 24 Hours) JUN 16 14:50 144 H 117 H 26 / H 214 5.1 24 0.80 \ JUN 16 14:50 \ L 9.4 / H 14.3 200 / L 29.5 \ Radiology Results (Last 48 hours) [id number] -- 06/07/2021 12:36 CR Chest 1 Vw [...] cultures negative 06/07 urine cultures E. coli Impression and Plan Pulmonary Acute hypoxemic respiratory [...] positive 06/07/21 COVID 19 pneumonia with ARDS. Urine culture: E. coli Elevated inflammatory markers Elevated procal GI Transaminitis - Improving. Hyperammonemia - improved US RUQ: Stable mild right hydronephrosis of uncertain etiology or significance Heme/Onc Anemia History of Non-Hodgkin's lymphoma Neuro Bipolar disorder Dementia Alert but confused Endocrine Hyperglycemia - Glycemic control Morbid Obesity with BMI of 45.8 PLAN: Supplemental O2 to maintain O2 saturations 90-94% - currently on 5L Optiflow or NIPPV as needed for increased [...] than 180. May add Lantus if needed. Prophylaxis: Protonix and Lovenox 115mg daily. Changed to 115 mg Q12H since GFR has improved. Labs in AM FULL CODE Prognosis : [...] of medical decision making for management. CCT 35 mins. documented in this encounter Plan of Treatment Not on file documented as of this encounter Visit Diagnoses Not on filedocumented in this encounter
--- OUTSIDE RECORDS SUMMARY | 2025-03-08 13:18 | XMS_ITS | Encounter Summary ---
Author Organization [employer] ([place], [place], [place], [place]) Address [address] [place] [address] Care Team Providers Care Microfilm Processor Name Role Phone Unavailable Primary Care Provider Unavailabl e Encounter Details Date Type Department Care Team (Late st Contact Info) Description 06/21/2021 Transcribed Document [facility] [place] [address] [place] [address] ProviderTg MD [address] [place] [address] Social History Tobacco Use Types Packs/Day Years Used Date Smoking Tobacco: Never Assessed Comments Unknown Sex and Gender Information Value Date Recorded Sex Assigned at Not on file Legal Sex Female 2:39 PM CDT Gender Identity Not on file Sexual Orientation Not on file documented as of this encounter Miscellaneous Notes * Cerner Conversion Note - Tg ProviderMD - 06/21/2021 4:47 PM CDT Patient: SUDHA TIMMONS Age: 75 Years Sex: Female : 1945 Subjective Patient is tearful this morning and tired of being in the hospital. Neurology continuing to evaluate patient for seizure activity and has EEG on. Vital Signs T: 36.6 ??C TMIN: 36.6 ??C TMAX: 36.9 ??C HR: 109(Monitored) RR: 18 BP: 125/79 SpO2: 96% HT: 157.48 cm WT: 113.4 kg BMI: 45.73 Oxygen Settings (Last) Oxygen Therapy Mode: Room air (06/21/21 09:00:00) Oxygen Flow Rate: 1 Liter/Min (06/19/21 15:00:00) Intake & Output Totals Last 24 Hours (7a-7a) Input Total: 1254.97 mL Output Total: 480 mL Balance: 774.97 mL Physical Exam General: Chronically ill appearing female who is very emotional and upset this morning HEENT: Moist oral mucosa Cardiac: RRR no m/r/g. 2/4 radial pulses bilaterally. Extremities: Trace LE edema bilaterally Lungs: CTAB with decreased breath sounds in the lower lobes bilaterally. Normal respiratory rate and effort on room air. GI: Abdomen soft, nontender, nondistended. MSK: 3/5 strength in the UE and LE bilaterally. Very debilitated Neuro: AOx2 difficult to understand at times and difficulty communicating what she is trying to say, but able to follow commands.. No sensory or focal deficits. Skin: No rashes noted on exam Psych: Tearful mood and abnormal affect Assessment/Plan 1. Acute hypoxemic respiratory failure 2. COVID Pneumonia 3. Pulmonary Embolism 4. Sepsis due to COVID and UTI POA (resolved) - Completed IV dexamethasone, Remdesivir and Actemera - CTA 06/09: Multiple small filling defects in the right lower lobe pulmonary artery consistent with PE - ID restarted Zosyn on 06/19, stopped Micafungin - Therapeutic Lovenox, plan to transition to PO Eliquis on discharge 5. Acute metabolic encephalopathy with likely chronic underlying memory problems and ? dementia - MRI Brain 06/18 shows no acute infarcts - Neuro continuing EEG monitoring some abnormal activity in frontotemporal region. - Persistent encephalopathy after COVID illness and some underlying cognitive and psychiatric disorders. 6. Acute kidney injury (resolved) Likely ATN/MYESHA and meds induced 7. Transaminitis (resolved) -Acetaminophen alcohol level negative -Likely due to COVID-19, -RUQ US noted, normal liver and better now and normalised. Statin resumed. 8. Acute systolic HF (stable) -2/2 possible NSTEMI? vs covid? vs chronic, last echo normal from 2018 -ECHO noted, EF 35% - On Carvedilol, not requiring diuretics 9. Hypertensive urgency (resolved) 10. Sinus tachycardia -Likely from PE, EKG noted, PRN Lopressor for tachycardia 11. Elevated troponin -Likely reactive from COVID and tachycardia/NSTEMI -Patient denies cp -ECHO noted, EF 35% 12. Bilateral LE edema -D-dimer elevated 2/2 covid -No hx of CHF, Echo from 2018 with normal EF, no excess IVF at this time -LE US NEG 13. Hypernatremia (resolved) 14. Bipolar disorder:As per discussion with her son Shawn on 06/16 patient has been off lithium recently prior to admission with mental status changes 15. Morbid obesity: BMI 45.8, complicates all aspects of care and resp failure with suspected OHS component 16. Hx of non-Hodgkin's lymphoma 17. Dysphagia - Speech recommended 1. Puree textures and thin liquids 2. Meds crushed with puree/pudding 3. Feed only when alert/positioned upright - Still requiring Tube feedings with Corpak at this time. DVT ppx: Lovenox therapeutic dose FULL CODE, confirmed with patient on admission, no living will, two living children son Shawn daughter Harley . Disposition: Neurology continuing to do EEG evaluation with some abnormal activity but not on epileptic medications. Patient still on therapeutic Lovenox for anticoagulation due to not been able to tolerate oral intake. Patient told me she was hungry and will need to have speech reevaluate to see if she still needs to feeds with CorPak. PT recommending SNF. Case management following. ID still has patient on IV Zosyn. Will have to continue to monitor patient response will need rehab on discharge. VTE Prophylaxis - Medical Enoxaparin 115 mg, SubCutaneous, Inj, [id number], Routine, Start 06/16/21 21:00:00 EDT, 06/16/21 21:00:00 [...] Coreg, 12.5 mg= 1 Tab, Oral, BID Dextrose 50% [...] PRN Lovenox, 115 mg= 1.15 mL, SubCutaneous, [id number] minocycline, 100 mg= 2 Cap, Oral, Q12H [...] Test Result Date/Time Sodium Level 143 mmol/L 06/21/2021 05:19 EDT Potassium Level 4.9 mmol/L 06/21/2021 05:19 EDT Chloride Level 112 mmol/L 06/21/2021 05:19 EDT Carbon Dioxide Level 24 mmol/L 06/21/2021 05:19 EDT Anion Gap 12 06/21/2021 05:19 EDT Glucose Level 143 mg/dL (High) 06/21/2021 05:19 EDT Blood Urea Nitrogen 26 mg/dL (High) 06/21/2021 05:19 EDT Creatinine Level 0.80 mg/dL 06/21/2021 05:19 EDT eGFR >60 mL/min/1.73m2 06/21/2021 05:19 EDT eGFR NonAfrican >60 mL/min/1.73m2 06/21/2021 05:19 EDT Bun/Creatinine 32.5 (High) 06/21/2021 05:19 EDT Calcium Level 8.3 mg/dL (Low) 06/21/2021 05:19 EDT Protein Total 4.5 Gram/dL (Low) 06/21/2021 05:19 EDT Albumin Level 2.3 Gram/dL (Low) 06/21/2021 05:19 EDT Globulin 2.2 Gram/dL 06/21/2021 05:19 EDT A/G Ratio 1.0 (Low) 06/21/2021 05:19 EDT Bilirubin Total 0.6 mg/dL 06/21/2021 05:19 EDT Alk Phos 105 Units/Liter 06/21/2021 05:19 EDT AST 27 Units/Liter 06/21/2021 05:19 EDT ALT 33 Units/Liter 06/21/2021 05:19 EDT Magnesium Level 2.0 mg/dL 06/21/2021 05:19 EDT Ammonia Level 22.0 uMol/L 06/21/2021 05:10 EDT Device Comment 1 Notified Nurse RBV 06/21/2021 12:08 EDT Device Comment 1 Notified Nurse RBV 06/21/2021 05:41 EDT Device Comment 1 Notified Nurse RBV 06/21/2021 00:40 EDT Device Comment 1 Notified MD RBV 06/20/2021 16:53 EDT Glucose POC2 126 mg/dL (High) 06/21/2021 12:08 EDT Glucose POC2 113 mg/dL (High) 06/21/2021 05:41 EDT Glucose POC2 125 mg/dL (High) 06/21/2021 00:40 EDT Glucose POC2 193 mg/dL (High) 06/20/2021 16:53 EDT WBC 10.8 K/uL (High) 06/21/2021 04:45 EDT RBC 2.05 Million/uL (Low) 06/21/2021 04:45 EDT Hgb 7.1 g/dL (Low) 06/21/2021 04:45 EDT Hct 21.9 % (Low) 06/21/2021 04:45 EDT MCV 106.8 fL (High) 06/21/2021 04:45 EDT MCH 34.6 pg (High) 06/21/2021 04:45 EDT MCHC 32.4 Gram/dL 06/21/2021 04:45 EDT Platelet Count 184 K/uL 06/21/2021 04:45 EDT MPV 11.7 fL 06/21/2021 04:45 EDT RDW 14.6 % 06/21/2021 04:45 EDT Neut % 73.4 % (High) 06/21/2021 04:45 EDT Neut # 7.91 K/uL (High) 06/21/2021 04:45 EDT Lymph % 14.3 % (Low) 06/21/2021 04:45 EDT Lymph # 1.54 x10(3)/uL 06/21/2021 04:45 EDT Emmons % 7.6 % 06/21/2021 04:45 EDT Emmons # 0.82 K/uL 06/21/2021 04:45 EDT Eos % 3.6 % 06/21/2021 04:45 EDT Eos # 0.39 x10(3)/uL 06/21/2021 04:45 EDT Baso % 0.3 % 06/21/2021 04:45 EDT Baso # 0.03 x10(3)/uL 06/21/2021 04:45 EDT nRBC 0.260 (High) 06/21/2021 04:45 EDT Slide Review No 06/21/2021 04:45 EDT IG# 0.09 x10(3)/uL (High) 06/21/2021 04:45 EDT IG% 0.80 % (High) 06/21/2021 04:45 EDT documented in this encounter Plan of Treatment Not on file documented as of this encounter Visit Diagnoses Not on filedocumented in this encounter
--- OUTSIDE RECORDS SUMMARY | 2025-03-08 13:18 | XMS_ITS | Encounter Summary ---
Author Organization [employer] ([place], [place], [place], [place]) Address [address] [place] [address] Care Team Providers Care Sleep Lab Technologist Name Role Phone Unavailable Primary Care Provider Unavailabl e Encounter Details Date Type Department Care Team (Late st Contact Info) Description 07/25/2021 Transcribed Document [facility] [place] [address] [place] [address] ProviderTg MD [address] [place] [address] Social History Tobacco Use Types Packs/Day Years Used Date Smoking Tobacco: Never Assessed Comments Unknown Sex and Gender Information Value Date Recorded Sex Assigned at Not on file Legal Sex Female 2:39 PM CDT Gender Identity Not on file Sexual Orientation Not on file documented as of this encounter Miscellaneous Notes * Cerner Conversion Note - Historical ProviderMD - 07/25/2021 5:00 AM STAFF CLIMATE SCIENTIST Chart Check - Review Order Profile Entered On: 07/25/2021 4:18 EST Performed On: 07/25/2021 5:00 EST by Flaco Monson Lpn Chart Check Powerplans Initiated/Discontinued as Appropriate : Yes All Active Orders Reviewed : Yes Flaco Monson Lpn - 07/25/2021 4:18 EST Electronically signed by [facility] Conversion Atmospheric Physics Professor Cerner at 12/18/2022 9:08 AM CDT documented in this encounter Plan of Treatment Not on file documented as of this encounter Visit Diagnoses Not on filedocumented in this encounter
--- OUTSIDE RECORDS SUMMARY | 2025-03-08 13:18 | XMS_ITS | Encounter Summary ---
Author Organization [employer] ([place], [place], [place], [place]) Address [address] [place] [address] Care Team Providers Care Senior Web Analyst Name Role Phone Unavailable Primary Care Provider Unavailabl e Encounter Details Date Type Department Care Team (Late st Contact Info) Description 06/28/2021 Transcribed Document [facility] [place] Medicine [address] [place] [address] ProviderTg MD [address] [place] [address] Social History Tobacco Use Types Packs/Day Years Used Date Smoking Tobacco: Never Assessed Comments Unknown Sex and Gender Information Value Date Recorded Sex Assigned at Not on file Legal Sex Female 2:39 PM CDT Gender Identity Not on file Sexual Orientation Not on file documented as of this encounter Miscellaneous Notes * Cerner Conversion Note - Tg Jones MD - 06/28/2021 9:45 AM CDT Patient: SUDHA TIMMONS Age: 75 Years Sex: Female : 1945 Assessment/Plan 1. Multifactorial ATN secondary to infection/contrast-induced nephropathy in setting of being on DEMETRI inhibitors 2. Hypernatremia resolved 3. Mild acidosis, non-anion gap secondary to REBECCA(resolved) 4. PE 5. Covid pneumonitis Plan -improvement in Kidney function with creatinine down to 0.7 -Mild elevation of CK not clinically significant -Non-oliguric, with good urine output -Avoid nephrotoxins, please keep MAP above 65, Avoid IV Contrast -strict intake and output - Sodium trend: 139-->138-->136-->135-->138 - Transfuse to keep H/H greater than 7/21 -Thanks for consultation, we will follow along with you periodically VTE Prophylaxis - Medical Sequential Compression Device Start: 10/09/21 14:19:00 EDT, Bilateral, Length: Knee High, While patient is in bed, Continuous Order (CARA DE LA ROSA) Subjective Patient was seen and evaluated by bedside Vital Signs T: 36.8 ??C TMIN: 36.4 ??C TMAX: 37.3 ??C HR: 97(Monitored) RR: 18 BP: 104/55 SpO2: 94% HT: 157.48 cm WT: 115.17 kg BMI: 46.44 Oxygen Settings (Last) Oxygen Therapy Mode: Room air (06/28/21 04:00:00) Oxygen Flow Rate: 1.5 Liter/Min (06/26/21 08:00:00) Intake & Output Totals Last 24 Hours (7a-7a) Input Total: 250 mL Output Total: 0 mL Balance: 250 mL Physical Exam General: more alert and oriented. Eye: Pupils are equal, round and reactive to light, Extraocular movements are intact. HENT: Normocephalic. Respiratory: Lungs are clear to auscultation, Respirations are non-labored, Breath sounds are equal, Symmetrical chest wall expansion. Cardiovascular: Normal rate, Regular rhythm, No murmur, No gallop. Gastrointestinal: Soft, Non-tender, Non-distended, No organomegaly. Integumentary: Warm, Dry, Intact, No rash. Neurologic: awake and more alert and oriented Medications aspirin, 81 mg= 1 Tab, Feeding Tube, Daily Ativan, 0.5 mg= 0.25 mL, IV Push, BID, PRN Colace, 100 mg= 10 mL, Oral, Daily [...] mg= 5 mL, IV Push, Q3H, PRN MiraLax, 17 Gram= 1 Packet, Oral, Daily oxyCODONE, 5 mg= 1 Tab, Oral, Q4H, PRN Pepcid, 20 mg= 1 Tab, Oral, Daily predniSONE, 10 mg= 1 Tab, Oral, Daily predniSONE, 5 mg= 1 Tab, Oral, Daily Robitussin, 400 mg= 20 mL, Oral, Q4HInt SEROquel, 12.5 mg= 0.5 Tab, Oral, BID, PRN Zofran, 4 mg= 2 mL, IV Push, Q4H, PRN Lab Results Test Name Test Result Date/Time Sodium Level 138 mmol/L 06/28/2021 05:32 EDT Potassium Level 4.1 mmol/L 06/28/2021 05:32 EDT Chloride Level 107 mmol/L 06/28/2021 05:32 EDT Carbon Dioxide Level 25 mmol/L 06/28/2021 05:32 EDT Anion Gap 10 06/28/2021 05:32 EDT Glucose Level 77 mg/dL 06/28/2021 05:32 EDT Blood Urea Nitrogen 16 mg/dL 06/28/2021 05:32 EDT Creatinine Level 0.70 mg/dL 06/28/2021 05:32 EDT eGFR >60 mL/min/1.73m2 06/28/2021 05:32 EDT eGFR NonAfrican >60 mL/min/1.73m2 06/28/2021 05:32 EDT Bun/Creatinine 22.9 (High) 06/28/2021 05:32 EDT Calcium Level 8.1 mg/dL (Low) 06/28/2021 05:32 EDT Magnesium Level 2.0 mg/dL 06/28/2021 05:32 EDT Device Comment 1 Notified Nurse RBV 06/28/2021 05:33 EDT Device Comment 1 Notified Nurse RBV 06/27/2021 20:27 EDT Device Comment 1 Notified MD RBV 06/27/2021 10:54 EDT Glucose POC2 90 mg/dL 06/28/2021 05:33 EDT Glucose POC2 97 mg/dL 06/27/2021 20:27 EDT Glucose POC2 109 mg/dL 06/27/2021 15:25 EDT Glucose POC2 126 mg/dL (High) 06/27/2021 10:54 EDT WBC 4.4 K/uL (Low) 06/28/2021 05:00 EDT RBC 2.29 Million/uL (Low) 06/28/2021 05:00 EDT Hgb 7.8 g/dL (Low) 06/28/2021 05:00 EDT Hct 23.9 % (Low) 06/28/2021 05:00 EDT MCV 104.4 fL (High) 06/28/2021 05:00 EDT MCH 34.1 pg (High) 06/28/2021 05:00 EDT MCHC 32.6 Gram/dL 06/28/2021 05:00 EDT Platelet Count 107 K/uL (Low) 06/28/2021 05:00 EDT MPV 10.7 fL 06/28/2021 05:00 EDT RDW >25.0 % (High) 06/28/2021 05:00 EDT nRBC 0.100 (High) 06/28/2021 05:00 EDT Slide Review No 06/28/2021 05:00 EDT documented in this encounter Plan of Treatment Not on file documented as of this encounter Visit Diagnoses Not on filedocumented in this encounter
--- OUTSIDE RECORDS SUMMARY | 2025-03-08 13:18 | XMS_ITS | Encounter Summary ---
Author Organization [employer] ([place], [place], [place], [place]) Address [address] [place] [address] Care Team Providers Care Community Board Member Name Role Phone Unavailable Primary Care Provider Unavailabl e Encounter Details Date Type Department Care Team (Late st Contact Info) Description 06/28/2021 Transcribed Document [facility] [place] [address] [place] [address] ProviderTg MD [address] [place] [address] Social History Tobacco Use Types Packs/Day Years Used Date Smoking Tobacco: Never Assessed Comments Unknown Sex and Gender Information Value Date Recorded Sex Assigned at Not on file Legal Sex Female 2:39 PM CDT Gender Identity Not on file Sexual Orientation Not on file documented as of this encounter Miscellaneous Notes * Cerner Conversion Note - Tg Jones MD - 06/28/2021 10:37 AM CDT Patient: SUDHA TIMMONS Age: 75 Years Sex: Female : 1945 Admit Date 06/07/2021 12:36 Discharge Date 06/28/2021 Primary Care Provider SAMSON MARTÍNEZ MD-ONC Discharge Diagnosis Acute UTI 06/07/2021 N39.0 ICD-10-CM Sepsis 06/07/2021 A41.9 ICD-10-CM Hospital Course Ms. Timmons is a 75 year old female with PMH non-Hodgkin's lymphoma, dementia, hypertension. She was admitted on 06/07 with acute hypoxemic respiratory failure due to COVID pneumonia and PE. CTA 06/09 showed multiple small filling defects in the right lower lobe pulmonary artery consistent with PE. Patient completed courses of IV dexamethasone, remdesivir, and Actemra. Patient was also placed on empiric antibiotic coverage and completed course with Zosyn on 06/23. Patient was initially placed on therapeutic Lovenox for PE on admission. However patient developed acute blood loss anemia requiring multiple transfusions with ongoing epistaxis. Therapeutic Lovenox had to be discontinued on 1024 after patient required transfusion on 2 consecutive days. Will defer starting anticoagulation to PCP on discharge, want to hold anticoagulation at least one week. Hemoglobin has remained stable since discontinuation of anticoagulation. Neurology followed patient for ongoing encephalopathy during hospitalization with suspected underlying psychiatric disorder. Neurology placed patient on Depakote to 250 mg twice daily and patient had significant improvement in mentation and became much more conversive since initiation, this will be continued on discharge. Patient had dysphagia after acute hypoxic respiratory failure with Covid and had to have CorPak placed for tube feeding. Speech reevaluated patient on 06/23 and gave patient regular/thin diet and was okay to take medications by mouth. CorPak was removed and tube feeding discontinued. Patient has tolerated oral diet since that time with no issues. Infectious disease was following patient Patient on prolonged minocycline therapy for inflammation which was discontinued on 06/26. Pulmonary recommended prolonged steroid taper due to serious Covid infection. Patient has two more days of 10 mg prednisone followed by three more days of 5 mg prednisone to complete on discharge. Patient will be [facility] to [facility]. Patient can follow up with PCP on discharge to discuss risks and benefits of starting Eliquis on discharge. Patient may not be a candidate for OAC, kept having bleeding on therapeutic Lovenox. On the day of discharge, the patient was comfortable, had no complaints. The patient is able to eat and drink with no pain, nausea or vomiting. Physical examination showed stable vital signs, cardiovascular showed normal S1,S2, Respirations are clear to auscultation, and no wheezing, abdomen soft not tender with normal bowel sounds. The patient was discharged in stable condition and received explanation about post discharge follow up and care as well as red-flag symptoms/findings that require medical attention. Please refer to discharge medication list and discharge instructions for further details. Time spent on discharge preparation and care coordination was about 35 minutes. Vital Signs T: 36.4 ??C TMIN: 36.4 ??C TMAX: 37.3 ??C HR: 98(Monitored) RR: 18 BP: 109/65 SpO2: 95% HT: 157.48 cm WT: 115.17 kg BMI: 46.44 Oxygen Settings (Last) Oxygen Therapy Mode: Room air (06/28/21 08:00:00) Oxygen Flow Rate: 1.5 Liter/Min (06/26/21 08:00:00) Discharge Disposition Shelter unit/facility Discharge Follow Up Follow up with primary care provider - Within 2 to 3 days SAMSON MARTÍNEZ MD-ONC - Within 2 to 3 days Discharge Medications (17) Active Aspirin Low Dose 81 [...] tablet 10 mg = 1 Tab, Oral, Daily-Take on 06-29 only predniSONE 5 mg oral tablet 5 mg = 1 Tab, Oral, Daily -Start this on 06-30 QUEtiapine 300 mg oral tablet 300 mg = 1 Tab, Oral, At Bedtime Vitamin B12 1000 mcg oral tablet 1,000 mcg = 1 Tab, Oral, Daily Code Status Start: 06/07/21 14:19:00 EDT, Full Code, Continuous Order Consulting Physicians DEBBIE COLE MD-INF - covid, uti JUHI VALERIO MD-INF RISA LUNDY MD - Renal Failure PHYLICIA WESTFALL MD WATSON, LAURA J, MD-NIKI - Patient with encephalopathy (covid/NH lymphoma history) for evaluation and input VALERIA BONE MD-INF SHIV URIOSTEGUI, DERECK Current Diet Order Diet, Adult - Ordered -- Start: 06/27/21 14:57:00 EDT, Regular Diet, Food Consistency: Mechanical soft, Liquid Consistency: Thin Liquid, Modifiers: Gravy with all meats documented in this encounter Plan of Treatment Not on file documented as of this encounter Visit Diagnoses Not on filedocumented in this encounter
--- OUTSIDE RECORDS SUMMARY | 2025-03-08 13:18 | XMS_ITS | Encounter Summary ---
Author Organization [employer] ([place], [place], [place], [place]) Address [address] [place] [address] Care Team Providers Care Metal Storage Worker Name Role Phone Unavailable Primary Care Provider Unavailabl e Encounter Details Date Type Department Care Team (Late st Contact Info) Description 06/21/2021 Transcribed Document [facility] [place] Family Medicine [address] [place] [address] ProviderTg MD [address] [place] [address] Social History Tobacco Use Types Packs/Day Years Used Date Smoking Tobacco: Never Assessed Comments Unknown Sex and Gender Information Value Date Recorded Sex Assigned at Not on file Legal Sex Female 2:39 PM CDT Gender Identity Not on file Sexual Orientation Not on file documented as of this encounter Miscellaneous Notes * Cerner Conversion Note - Tg ProviderMD - 06/21/2021 2:00 AM CDT Personal Caregiver Details Entered On: 06/21/2021 3:28 EDT Performed On: 06/21/2021 2:00 EDT by Ran Chew RN-PATIENT CARE [...] Ran Chew RN-PATIENT CARE BEDSIDE NON-EXEMPT - 06/21/2021 3:27 EDT documented in this encounter Plan of Treatment Not on file documented as of this encounter Visit Diagnoses Not on filedocumented in this encounter
--- OUTSIDE RECORDS SUMMARY | 2025-03-08 13:18 | XMS_ITS | Encounter Summary ---
Author Organization [employer] ([place], [place], [place], [place]) Address [address] [place] [address] Care Team Providers Care Harvesting Supervisor Name Role Phone Unavailable Primary Care Provider Unavailabl e Encounter Details Date Type Department Care Team (Late st Contact Info) Description 06/21/2021 Transcribed Document [facility] [place] Family Medicine [address] [place] [address] ProviderTg MD [address] [place] [address] Social History Tobacco Use Types Packs/Day Years Used Date Smoking Tobacco: Never Assessed Comments Unknown Sex and Gender Information Value Date Recorded Sex Assigned at Not on file Legal Sex Female 2:39 PM CDT Gender Identity Not on file Sexual Orientation Not on file documented as of this encounter Miscellaneous Notes * Cerner Conversion Note - Tg Jones MD - 06/21/2021 2:12 PM CDT Patient: SUDHA SOLORZANO Age: 75 Years Sex: Female : 1945 Assessment 75-year-old female with a protracted respiratory illness related to Covid, pulmonary embolism, hypernatremia corrected, and encephalopathy since admission. EEG recordings showed epileptiform discharges and slow-wave activity in the frontal-temporal electrodes in both hemispheres, no seizures after 48 hours. I will continue recording 24 hours then stop if no seizures. 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 She has improved and MRI does not [...] recommendations will be based on test results, skin care specialist communication, and clinical course. Ordered Continuous EEG monitoring Subjective No significant change Presentation: 75-year-old female [...] no electrographic ictal discharge. EEG recordings showed epileptiform discharges and slow-wave activity in the frontal-temporal electrodes in both hemispheres. These findings are consistent with focal cerebral dysfunction and potential epileptogenicity in the frontal-temporal regions in both hemispheres. Additionally, slowing of the background was noted consistent with mild diffuse cerebral dysfunction Studies personally reviewed documented in this encounter Plan of Treatment Not on file documented as of this encounter Visit Diagnoses Not on filedocumented in this encounter
--- OUTSIDE RECORDS SUMMARY | 2025-03-08 13:18 | XMS_ITS | Clinical Summary ---
Author Organization [facility] Address [address] [place] [address] Phone Care Team Providers Care Flatwork Presser Name Role Phone Unavailable Unavailable Conditions or Problems No information available. Medications No information available. Medications Administered No information available. Allergies, Adverse Reactions, Alerts No information available. Results No information available. Plan of Care No information available. Procedures No information available. Vital Signs No information available. Immunizations No information available. Advance Directives No information available.
--- OUTSIDE RECORDS SUMMARY | 2025-03-08 13:18 | XMS_ITS | Encounter Summary ---
Author Organization [facility] ([place], [place], [place], [place]) Address [address] [place] [address] Care Team Providers Care Clergy Member Name Role Phone Unavailable Primary Care Provider Unavailabl e Encounter Details Date Type Department Care Team (Late st Contact Info) Description 06/27/2021 Transcribed Document [facility] [place] [facility] [address] [place] [address] ProviderTg MD [address] [place] [address] Social History Tobacco Use Types Packs/Day Years Used Date Smoking Tobacco: Never Assessed Comments Unknown Sex and Gender Information Value Date Recorded Sex Assigned at Not on file Legal Sex Female 2:39 PM CDT Gender Identity Not on file Sexual Orientation Not on file documented as of this encounter Miscellaneous Notes * Cerner Conversion Note - Tg ProviderMD - 06/27/2021 5:30 PM CDT Patient: SUHDA SOLORZANO Age: 75 Years Sex: Female : 1945 Subjective Patient was doing well this morning. However she keeps stating she wants to go home, but it is not safe due to her current debilitated state. No other acute events overnight by nursing staff. Vital Signs T: 37.3 ??C TMIN: 36.4 ??C TMAX: 37.3 ??C HR: 96(Monitored) RR: 16 BP: 134/95 SpO2: 95% HT: 157.48 cm WT: 115.09 kg BMI: 46.41 Oxygen Settings (Last) Oxygen Therapy Mode: Room air (06/27/21 16:00:00) Oxygen Flow Rate: 1.5 Liter/Min (06/26/21 08:00:00) Intake & Output Totals Last 24 Hours (7a-7a) Input Total: 290 mL Output Total: 0 mL Balance: 290 mL Physical Exam General: Chronically ill appearing female who is doing well with stable mood and mental status. HEENT: Moist oral mucosa Cardiac: RRR no m/r/g. 2/4 radial pulses bilaterally. Extremities: Trace LE edema bilaterally Lungs: CTAB with decreased breath sounds in the lower lobes bilaterally. Normal respiratory rate and effort on room air. GI: Abdomen soft, nontender, nondistended. MSK: 3/5 strength in the UE and LE bilaterally. Very debilitated Neuro: AOx3 able to communicate and follow commands. No sensory or focal deficits. Skin: No rashes noted on exam Psych: Improved mood and affect Assessment/Plan 1. Acute hypoxemic respiratory failure 2. COVID Pneumonia 3. Pulmonary Embolism 4. Sepsis due to COVID and UTI POA (resolved) - Completed IV dexamethasone, Remdesivir and Actemera - CTA 06/09: Multiple small filling defects in the right lower lobe pulmonary artery consistent with PE - Completed Zosyn 06/23 - Continue holding Therapeutic Lovenox due to ongoing bleeding with blood loss anemia. - Completed Minocycline 06/26 - Still receiving Prednisone taper - Atovaquone while on prednisone taper with >10mg. 5. Acute metabolic encephalopathy with likely chronic [...] - Received 1 unit PRBC 06/22 - Received 1 unit PRBC 06/23 - Hemoglobin has remained stable after discontinuing therapeutic Lovenox - Continue to monitor and transfuse for Hbg <7.0 - Folate and B12 level normal 7. Dysphagia - Speech said okay to remove Corpak and stop tube feeds - Speech recommending Regular/Thin diet and upright with eating. 8. Acute kidney injury (resolved) Likely ATN/MYESHA [...] 18. Hx of non-Hodgkin's lymphoma Disposition: Patient to be transferred to [facility] tomorrow (06/28) at 5PM Hospital Course: Ms. Solorzano is a 75 year old female with [...] on discharge. Patient will be discharged to [facility]. Patient can follow up with PCP on discharge to discuss risks and benefits of starting Eliquis on discharge. Patient may not be a candidate for OAC, kept having bleeding on therapeutic Lovenox. VTE Prophylaxis - Medical Sequential Compression Device [...] Test Name Test Result Date/Time Sodium Level 135 mmol/L (Low) 06/27/2021 05:30 EDT Potassium Level 4.5 mmol/L 06/27/2021 05:30 EDT Chloride Level 104 mmol/L 06/27/2021 05:30 EDT Carbon Dioxide Level 23 mmol/L 06/27/2021 05:30 EDT Anion Gap 12 06/27/2021 05:30 EDT Glucose Level 87 mg/dL 06/27/2021 05:30 EDT Blood Urea Nitrogen 18 mg/dL 06/27/2021 05:30 EDT Creatinine Level 0.70 mg/dL 06/27/2021 05:30 EDT eGFR >60 mL/min/1.73m2 06/27/2021 05:30 EDT eGFR NonAfrican >60 mL/min/1.73m2 06/27/2021 05:30 EDT Bun/Creatinine 25.7 (High) 06/27/2021 05:30 EDT Calcium Level 8.6 mg/dL 06/27/2021 05:30 EDT Magnesium Level 1.9 mg/dL 06/27/2021 05:30 EDT Device Comment 1 Notified MD RBV 06/27/2021 10:54 EDT Device Comment 1 Notified Nurse RBV 06/27/2021 05:41 EDT Device Comment 1 Notified Nurse RBV 06/26/2021 20:27 EDT Glucose POC2 109 mg/dL 06/27/2021 15:25 EDT Glucose POC2 126 mg/dL (High) 06/27/2021 10:54 EDT Glucose POC2 100 mg/dL 06/27/2021 05:41 EDT Glucose POC2 140 mg/dL (High) 06/26/2021 20:27 EDT WBC 6.1 K/uL 06/27/2021 04:30 EDT RBC 2.37 Million/uL (Low) 06/27/2021 04:30 EDT Hgb 7.7 g/dL (Low) 06/27/2021 04:30 EDT Hct 24.1 % (Low) 06/27/2021 04:30 EDT MCV 101.7 fL (High) 06/27/2021 04:30 EDT MCH 32.5 pg (High) 06/27/2021 04:30 EDT MCHC 32.0 Gram/dL (Low) 06/27/2021 04:30 EDT Platelet Count 116 K/uL (Low) 06/27/2021 04:30 EDT MPV 10.9 fL 06/27/2021 04:30 EDT RDW >25.0 % (High) 06/27/2021 04:30 EDT nRBC 0.190 (High) 06/27/2021 04:30 EDT Slide Review No 06/27/2021 04:30 EDT documented in this encounter Plan of Treatment Not on file documented as of this encounter Visit Diagnoses Not on filedocumented in this encounter
--- OUTSIDE RECORDS SUMMARY | 2025-03-08 13:18 | XMS_ITS | Encounter Summary ---
Author Organization [employer] ([place], [place], [place], [place]) Address [address] [place] [address] Care Team Providers Care Set Key Driver Name Role Phone Unavailable Primary Care Provider Unavailabl e Encounter Details Date Type Department Care Team (Late st Contact Info) Description 06/21/2021 Transcribed Document [facility] [place] [address] [place] [address] ProviderTg MD [address] [place] [address] Social History Tobacco Use Types Packs/Day Years Used Date Smoking Tobacco: Never Assessed Comments Unknown Sex and Gender Information Value Date Recorded Sex Assigned at Not on file Legal Sex Female 2:39 PM CDT Gender Identity Not on file Sexual Orientation Not on file documented as of this encounter Miscellaneous Notes * Cerner Conversion Note - Tg Jones MD - 06/21/2021 12:03 PM CDT Patient: SUDHA TIMMONS Age: 75 [...] hx available 06/21 - no hx available ROS - not available - discussed with [...] mg, Oral, Daily Core.5 mg, Oral, BID Dextrose 50% injection: [...] Q3H, PRN: Tachycardia Lovenox: 115 mg, SubCutaneous, [id number] MiraLax: 17 Gram, Oral, Daily Pepcid: 20 mg, Oral, Daily Robitussin: 400 mg, Oral, Q4HInt SEROquel: 12.5 mg, Oral, BID, PRN: Agitation Zofran: 4 mg, IV Push, Q4H, PRN: Nausea Zosyn + Sodium Chloride 0.9% intravenous solution 100 mL: 3.375 Gram, 33.33 mL/Hr, IV Piggyback, Q6HInt aspirin: 81 mg, Feeding Tube, Daily atovaquone: [...] Hypertension lactobacillus acidophilus: 1 Cap, Oral, Daily minocycline: 100 mg, Oral, Q12H oxyCODONE: 5 mg, Oral, Q4H, PRN: Pain (Severe 7-10) predniSONE: 10 mg, Oral, Daily predniSONE: 20 mg, Oral, Daily predniSONE: 30 mg, Oral, Daily predniSONE: 5 mg, Oral, [...] 12.5 mg 1 Tab, Oral, BID docusate sod 100 mg/10 mL liq 100 mg 10 mL, Oral, Daily enoxaparin 60 mg/0.6 mL inj 115 mg 1.15 mL, SubCutaneous, [id number] famotidine 20 mg tab 20 mg 1 Tab, Oral, Daily guaiFENesin 200 mg/10 mL liq 400 mg 20 mL, Oral, Q4HInt insulin regular 1 unit/0.01 mL inj 3mL Scale A, SubCutaneous, Q6H lactobacillus acidophilus cap 1 Cap, Oral, Daily minocycline 50 mg cap 100 mg 2 Cap, Oral, Q12H piperacillin-tazobactam + NaCl 0.9% 100 mL 3.375 Gram, IV Piggyback, Q6HInt polyethylene glycol 3350 pwd 17 g pkt [...] Medical Hip pain, right / SNOMED CT 3928145368 / Confirmed At risk for sleep apnea / IMO [id number] / Confirmed At risk for violence / IMO 71355622 / Confirmed Concussion / SNOMED CT 5857346621 / Confirmed concussion with loss of memory+ Disease caused by 2018 novel coronavirus / SNOMED CT 1918830095 / Confirmed Problem added by a rule: [id number]. Fall / SNOMED CT 2434648 / Confirmed HTN (hypertension) / SNOMED CT 1810884758 / Confirmed Depression / SNOMED CT 7813197852 / Confirmed Numbness and tingling / SNOMED CT 6162456098 / Confirmed numbness and tingling right thigh area to toes Osteoarthritis / SNOMED CT 7752754528 / Confirmed Pain / SNOMED CT 64402488 / Confirmed right buttocks pain Leg pain, right / SNOMED CT 323500035 / Confirmed sleep apnea / SNOMED CT 838834113 / Confirmed Insomnia / SNOMED CT 316620596 / Confirmed Tremor / SNOMED CT 54972759 / Confirmed, Active Problems (17) At risk [...] Last Charted Minimum Maximum Temp 97.8 (JUN 21 09:00) 97.8 (JUN 21 09:00) 98.5 (JUN 20 16:00) Mon HR 109 (JUN 21 09:00) 100 (JUN 21 00:00) 109 (JUN 21 09:00) Resp Rate 18 (JUN 21 09:00) 18 (JUN 20:00) 20 (JUN 20 16:00) SBP 125 (JUN 21 09:00) 117 (JUN 21 05:00) H 150 (JUN 20:00) DBP 79 (JUN 21 09:00) 73 (JUN 21 05:00) H 96 (JUN 20 20:00) MAP 85 (JUN 21 05:00) 85 (JUN 21 05:00) 121 (JUN 21 00:00) SpO2 96 (JUN 21 09:00) 95 (JUN 21 00:00) 97 (JUN 20 16:00) General: no distress, On oxygen Eye: Normal conjunctiva. HENT: Normocephalic, Oral mucosa is moist. Neck: Supple, Non-tender. Respiratory: Lungs are clear to auscultation, Breath sounds are equal. Cardiovascular: Normal rate, Normal peripheral perfusion, Mild LE edema Gastrointestinal: Soft, Non-tender Musculoskeletal: No deformity. Integumentary: Warm, Dry. Neurologic: groggy, confused. Psychiatric: not Cooperative. Review / Management Results review: Labs (Last four charted values) WBC H 10.8 (JUN 21) 9.8 (JUN 20) 8.5 (JUN 19) 8.2 (JUN 18) HB L 7.1 (JUN 21) L 7.8 (JUN 20) L 8.1 (JUN 19) L 8.9 (JUN 18) HCT L 21.9 (JUN 21) L 23.6 (JUN 20) L 25.1 (JUN 19) L 27.7 (JUN 18) Plt 184 (JUN 21) 189 (JUN 20) 190 (JUN 19) 210 (MAY 20) Na 143 (JUN 21) 143 (JUN 20) 145 (JUN 19) 145 (JUN 18) K 4.9 (JUN 21) 5.1 (JUN 20) 5.1 (JUN 19) 5.0 (MAY 20) Cl 112 (JUN 21) H 114 (JUN 20) H 116 (JUN 19) H 116 (MAY 20) CO2 24 (JUN 21) 26 (JUN 20) 27 (JUN 19) 26 (MAY 20) BUN H 26 (JUN 21) H 27 (MAY 22) H 25 (JUN 19) 21 (OCT 20) Cr 0.80 (JUN 21) 0.70 (OCT 22) 0.60 (OCT 21) 0.60 (MAY 20) Glu R H 143 (JUN 21) H 152 (MAY 22) H 136 (MAY 21) H 116 (OCT 20) Ca L 8.3 (JUN 21) L 7.9 (MAY 22) L 8.0 (JUN 19) 8.5 (OCT 20) Lactic 1.6 (MAY 19) 1.0 (JUN 07) PT 11.4 (MAY 10) 11.4 (JUN 07) 11.4 (MAY 09) INR 1.1 (MAY 10) 1.1 (OCT 09) 1.1 (MAY 09) PTT 23.2 (JUN 07) AST 27 (MAY 23) 26 (MAY 21) 29 (MAY 20) 36 (JUN 17) ALT 33 (OCT 23) 28 (JUN 19) 27 (JUN 18) 22 [...] 18) L 2.1 (JUN 17) Troponin H 0.096 (JUN 20) H 0.094 (JUN 18) H 0.147 (JUN 16) H 0.447 (JUN 14) . Impression and Plan IMPRESSION [...] of NHL history and CD4 214 -- Hypertension CXR worse to me - added minocycline stopped micafungin - no positive fungal cultures Changed Rocephin to Zosyn (change made 06/19) Ferritin worse Complex case Watch on current Rx CXR Wednesday Dr Rocha back Wednesday documented in this encounter Plan of Treatment Not on file documented as of this encounter Visit Diagnoses Not on filedocumented in this encounter
--- OUTSIDE RECORDS SUMMARY | 2025-03-08 13:18 | XMS_ITS | Encounter Summary ---
Author Organization [facility] ([place], [place], [place], [place]) Address [address] [place] [address] Care Team Providers Care Branch Services Manager Name Role Phone Unavailable Primary Care Provider Unavailabl e Encounter Details Date Type Department Care Team (Late st Contact Info) Description 06/21/2021 Transcribed Document [facility] [place] [address] [place] [address] ProviderTg MD [address] [place] [address] Social History Tobacco Use Types Packs/Day Years Used Date Smoking Tobacco: Never Assessed Comments Unknown Sex and Gender Information Value Date Recorded Sex Assigned at Not on file Legal Sex Female 2:39 PM CDT Gender Identity Not on file Sexual Orientation Not on file documented as of this encounter Miscellaneous Notes * Cerner Conversion Note - Tg Jones MD - 06/21/2021 8:35 AM CDT DATE OF SERVICE: 06/20/2021 REPORT TYPE: EEG REFERRING PHYSICIAN: Meir Ochoa MD REPORT TITLE: Video Electroencephalogram Report STUDY DURATION: One day. HISTORY: This is a 75-year-old woman with altered mentation, being evaluated for seizures. EEG VIDEO MONITORING METHODOLOGY: Time-locked EEG-video monitoring was performed using the 32-channel [employer] monitoring system. The seizure detection computer was [...] montages were used. CLINICAL AND EEG ANALYSIS: The recording was reviewed. During wakefulness, the background was not well organized and showed 7 Hz activity posteriorly intermixed with 4 to 5 Hz theta waves and lower amplitude faster activity in the beta range with a wider distribution. 4 to 5 Hz theta waves and higher amplitude, 2 to 3 Hz delta waves are seen in both hemispheres at S6-P7-Ui7-F3 and L5-O3-Pg3-F4, at times with a wider field of distribution. During periods of sleep, sleep spindles are seen in both hemispheres. SPIKE DETECTION: The spike detection program was activated during the period of monitoring. Four occasional sharply contoured slow waves and sharp waves are seen at Z3-T9-U7-Fp1 and Q9-V7-W4-Fp2. EEG DIAGNOSES: This is an abnormal video EEG study because of: 1. Occasional sharp waves and sharply contoured slow waves at U4-J1-A5-Fp1 and M0-M0-Wn1-F4. 2. Disorganization and slowing of the background. 3. Slow waves seen in both hemispheres, most prominently at Vr0-Q8-U5-T7 and Tq0-T7-K8-T8. CLINICAL INTERPRETATION: The patient had no clinical event during the period of monitoring. Continuous EEG recordings showed no electrographic ictal discharge. EEG recordings showed occasional sharp waves, sharply contoured slow waves as well as slow wave activity in the frontotemporal electrodes in both hemispheres. These findings are indicative of potential epileptogenicity and focal cerebral dysfunction in the frontotemporal regions. EEG recordings also showed slowing of the background indicative of mild diffuse cerebral dysfunction. /[id number] Nicole Mahmood MD TAF/AQ / TAF / MODL /[id number] documented in this encounter Plan of Treatment Not on file documented as of this encounter Visit Diagnoses Not on filedocumented in this encounter
--- OUTSIDE RECORDS SUMMARY | 2025-03-08 13:18 | XMS_ITS | Encounter Summary ---
Author Organization [employer] ([place], [place], [place], [place]) Address [address] [place] [address] Care Team Providers Care Stock Digger Name Role Phone Unavailable Primary Care Provider Unavailabl e Encounter Details Date Type Department Care Team (Late st Contact Info) Description 07/25/2021 Transcribed Document [facility] Radiology [address] [place] [address] Bandar Orellana MD [address] [place], [place] [id number] Social History Tobacco Use Types Packs/Day Years Used Date Smoking Tobacco: Never Assessed Comments Unknown Sex and Gender Information Value Date Recorded Sex Assigned at Not on file Legal Sex Female 2:39 PM CDT Gender Identity Not on file Sexual Orientation Not on file documented as of this encounter Miscellaneous Notes * Cerner Conversion Note - Bandar Orellana MD - 07/25/2021 8:58 AM EST Patient: SUDHA TIMMONS Age: 75 years Sex: Female : 1945 Associated Diagnoses: None Author: BANDAR ORELLANA MD-INT Subjective Chief complaint. July 23, 2021. Patient returned from hemodialysis. Oriented to name but very poor historian. Denies fevers or chills. No chest pain palpitations. Some tenderness with palpation to the lower extremities really talking. Patient tends to repeat what I say to her. July 24, 2021. Patient is somewhat agitated as she is able to state her name although somewhat difficult to understand. No chest pain palpitations. No nausea vomiting. Very poor historian at baseline is unclear to me. Called phone number of Shawn Timmons [phone] and voicemail had not been set up and they did not answer the phone. Sunday, July 25, 2021. Patient appears comfortable when I stand outside the door however when I going to talk to her she becomes very tearful unfortunately she really cannot provide much of a history or answer my questions other than stated her name. Baseline is rather unclear to me.dc to fords last admssion here Review of Systems Constitutional: Weakness, Decreased activity, No fever, No chills. Respiratory: No shortness of breath, No cough. Cardiovascular: No chest pain, No palpitations. Gastrointestinal: No nausea, No vomiting. Genitourinary: No dysuria. Neurologic: Confusion, Not alert and oriented X4. Psychiatric: Anxiety, Hallucinations, Bipolar history., No depression. Health Status Allergies: Allergic Reactions (Selected) Severity Not Documented Anaprox- Rash. Codeine- No reactions were documented. Latex- Itching. Naproxen- No reactions were documented., Allergies (4) Active Reaction Anaprox Rash codeine None Documented Latex Itching naproxen None Documented Problem list: Medical Hip pain, right / SNOMED CT 3809409384 / Confirmed At risk for sleep apnea / IMO 88940727 / Confirmed At risk for violence / IMO 71169011 / Confirmed Concussion / SNOMED CT 8548378753 / Confirmed concussion with loss of memory+ Disease caused by 2019 novel coronavirus / SNOMED CT 6781588357 / Confirmed Problem added by a rule: [id number]. Fall / SNOMED CT 0268933 / Confirmed HTN (hypertension) / SNOMED CT 0495943989 / Confirmed Depression / SNOMED CT 4493781328 / Confirmed Numbness and tingling / SNOMED CT 3683236677 / Confirmed numbness and tingling right thigh area to toes Osteoarthritis / SNOMED CT 3534274984 / Confirmed Pain / SNOMED CT 96993373 / Confirmed right buttocks pain Leg pain, right / SNOMED CT 134389573 / Confirmed sleep apnea / SNOMED CT 276491985 / Confirmed Insomnia / SNOMED CT 218385062 / Confirmed Tremor / SNOMED CT 83943976 / Confirmed, Active Problems (17) At risk for sleep apnea At risk for violence Bipolar I disorder, current or most recent episode depressed, with psychotic features with catatonia Concussion Depression Disease caused by 2019 novel coronavirus Fall H/O non-Hodgkin's lymphoma Hip pain, right HTN (hypertension) Insomnia Leg pain, right Numbness and tingling Osteoarthritis Pain sleep apnea Tremor Current medications: (Selected) Inpatient Medications Ordered Ativan: 2 mg, IV Push, Q5Min, PRN: Seizures Colace: 100 mg, Oral, BID, PRN: Constipation Core.5 mg, Oral, BID, PRN: Hypertension Depakote: 250 mg, Oral, BID Dextrose 5% with 0.45% NaCl intravenous solution 1,000 mL: 125 mL/Hr, IntraVENous Dextrose 50% injection: 12.5 Gram, IV Push, Q15Min, PRN: Other (See Comment) Dextrose 50% injection: 25 Gram, IV Push, Q15Min, PRN: Other (See Comment) Dextrose 50% injection: 25 Gram, IV Push, Q15Min, PRN: Other (See Comment) Dextrose 50% injection: 25 Gram, IV Push, Q15Min, PRN: Other (See Comment) Dulcolax Laxative: 5 mg, Oral, Daily, PRN: Constipation DuoNeb 0.5 mg-2.5 mg/3 mL inhalation solution: 3 mL, Nebulized Inhalation, RT_Q4H, PRN: Shortness of Breath MiraLax: 17 Gram, Oral, Daily, PRN: Constipation Holley 5 mg-325 mg oral tablet: 1 Tab, Oral, BID, PRN: Pain (Moderate 4-6) Normal Saline Flush: 10 mL, IV Push, Q12H Normal Saline Flush: 10 mL, IV Push, See Comment, PRN: IV Use Phenergan: 6.25 mg, IntraVENous, Q6H, PRN: Nausea QUEtiapine: 300 mg, Oral, At Bedtime Rocephin: 2 Gram, 100 mL/Hr, IV Piggyback, [id number] Tylenol: 650 mg, Oral, Q4H, PRN: Fever Tylenol: 650 mg, Oral, Q4H, PRN: Pain (Mild 1-3) Zofran: 4 mg, IV Push, Q4H, PRN: Nausea aspirin: 81 mg, Oral, Daily atorvastatin: 40 mg, Oral, At Bedtime bisacodyl: 10 mg, Rectal, Daily, PRN: Constipation cyanocobalamin: 1,000 mcg, Oral, Daily furosemide: 20 mg, Oral, EveryOtherDay glucagon: 1 mg, IntraMuscular, Q15Min, PRN: Other (See Comment) glucose 4 g oral tablet, chewable: 16 Gram, 4 Tab, Chew, Q15Min, PRN: Other (See Comment) glucose 40% oral gel: 15 Gram, 37.5 mL, Oral, Q15Min, PRN: Other (See Comment) lisinopril: 2.5 mg, Oral, Daily melatonin: 5 mg, Oral, At Bedtime, PRN: Insomnia pantoprazole: 40 mg, Oral, Daily Documented Medications Documented Aspirin Low Dose 81 mg oral delayed release tablet: 1 Tab, Oral, Daily, 0 Refill(s) Colace 100 mg oral capsule: 1 Cap, Oral, BID, PRN: for constipation, 20 Cap, 0 Refill(s) Coreg 12.5 mg oral tablet: 1 Tab, Oral, BID, 60 Tab, 0 Refill(s) Depakote 250 mg oral delayed release tablet: 1 Tab, Oral, BID, 90 Tab, 0 Refill(s) Multiple Vitamins oral tablet: 1 Tab, Oral, Daily, 30 Tab, 0 Refill(s) Holley 5 mg-325 mg oral tablet: 1 Tab, Oral, BID, PRN: for pain, 0 Refill(s) QUEtiapine 300 mg oral tablet: 1 Tab, Oral, At Bedtime, 30 Tab, 0 Refill(s) Vitamin B12 1000 mcg oral tablet: 1 Tab, Oral, Daily, 30 Tab, 0 Refill(s) Vitamin D2 1.25 mg (50,000 intl units) oral capsule: 1 Cap, Oral, 0 Refill(s) atorvastatin 40 mg oral tablet: 1 Tab, Oral, At Bedtime, 0 Refill(s) bisacodyl 10 mg rectal suppository: 1 Supp, Rectal, Daily, PRN: for constipation, 0 Refill(s) furosemide 20 mg oral tablet: 1 Tab, Oral, EveryOtherDay, takes on even days, 0 Refill(s) lisinopril 2.5 mg oral tablet: [...] Cap, Oral, Daily, 30 Cap, 0 Refill(s), Home Medications (17) Active Aspirin Low Dose 81 mg oral delayed release tablet 81 mg = 1 Tab, Oral, Daily atorvastatin 40 mg oral tablet 40 mg = 1 Tab, Oral, At Bedtime bisacodyl 10 mg rectal suppository 1 Supp, PRN, Rectal, Daily Colace 100 mg oral capsule 100 mg = 1 Cap, PRN, Oral, BID Coreg 12.5 mg oral tablet 12.5 mg = 1 Tab, Oral, BID Depakote 250 mg oral delayed release tablet 250 mg = 1 Tab, Oral, BID furosemide 20 mg oral tablet 20 mg = 1 Tab, Oral, EveryOtherDay lisinopril 2.5 mg oral tablet 2.5 mg = 1 Tab, Oral, Daily lithium 300 mg oral capsule 300 mg = 1 Cap, Oral, BID Multiple Vitamins oral tablet 1 Tab, Oral, Daily Holley 5 mg-325 mg oral tablet 1 Tab, PRN, Oral, BID pantoprazole 40 mg oral delayed release tablet [...] 1,000 mcg = 1 Tab, Oral, Daily Vitamin D2 1.25 mg (50,000 intl units) oral capsule 50,000 Int Units = 1 Cap, Oral , Medications (32) Active Scheduled: (10) #NaCl 0.9% *FLUSH* inj 10 mL 10 mL, IV Push, Q12H aspirin EC 81 mg tab 81 mg 1 Tab, Oral, Daily atorvastatin 40 mg tab 40 mg 1 Tab, Oral, At Bedtime cefTRIAXone 2 Gram, IV Piggyback, [id number] cyanocobalamin 1,000 mcg tab 1,000 mcg 1 Tab, Oral, Daily divalproex 250 mg EC tab 250 mg 1 Tab, Oral, BID furosemide 20 mg tab 20 mg 1 Tab, Oral, EveryOtherDay lisinopril 5 mg tab 2.5 mg 0.5 Tab, Oral, Daily pantoprazole EC 40 mg tab 40 mg 1 Tab, Oral, Daily QUEtiapine 100 mg tab 300 mg 3 Tab, Oral, At Bedtime Continuous: (1) D5w/NaCl 0.45% 1,000 mL 1,000 mL, IntraVENous, 125 mL/Hr PRN: (21) #NaCl 0.9% *FLUSH* inj 10 mL 10 mL, IV Push, See Comment acetaminophen 325 mg tab 650 mg 2 Tab, Oral, Q4H acetaminophen 325 mg tab 650 mg 2 Tab, Oral, Q4H acetaminophen/HYDROcodone 325/5 mg tab 1 Tab, Oral, BID albuterol-ipratropium inh 3 mL 3 mL, Nebulized Inhalation, RT_Q4H bisacodyl 10 mg supp 10 mg 1 Supp, Rectal, Daily bisacodyl EC 5 mg tab 5 mg 1 Tab, Oral, Daily carvedilol 12.5 mg tab 12.5 mg 1 Tab, Oral, BID dextrose 50% 25 g/50 mL inj syr 25 Gram 50 mL, IV Push, Q15Min dextrose 50% 25 g/50 mL inj syr 25 Gram 50 mL, IV Push, Q15Min dextrose 50% 25 g/50 mL inj syr 25 Gram 50 mL, IV Push, Q15Min dextrose 50% 25 g/50 mL inj syr 12.5 Gram 25 mL, IV Push, Q15Min docusate sodium 100 mg cap 100 mg 1 Cap, Oral, BID glucagon 1 mg/1 mL inj 1 mg 1 mL, IntraMuscular, Q15Min glucose 4 g tab 16 Gram 4 Tab, Chew, Q15Min glucose 40% gel 15 g 15 Gram 37.5 mL, Oral, Q15Min LORazepam 2 mg/mL inj 2 mg 1 mL, IV Push, Q5Min melatonin 5 mg tab 5 mg 1 Tab, Oral, At Bedtime ondansetron 4 mg/2 mL inj 4 mg 2 mL, IV Push, Q4H polyethylene glycol 3350 pwd 17 g pkt 17 Gram 1 Packet, Oral, Daily promethazine 25 mg/1 mL inj 6.25 mg 0.25 mL, IntraVENous, Q6H Objective VS/Measurements Vitals Signs (last 24 hrs) Last Charted Minimum Maximum Temp 99.1 (JUL 25 05:24) 99.1 (JUL 25 05:24) 99.5 (JUL 24 13:33) Mon HR 111 (JUL 25 05:24) 109 (JUL 24 20:22) 112 (JUL 24 13:33) Resp Rate 18 (JUL 24 20:22) 18 (JUL 24 13:33) 18 (JUL 24 13:33) SBP 137 (JUL 25 05:24) 123 (JUL 24 18:00) H 150 (JUL 24 20:22) DBP 79 (JUL 25 05:24) 79 (JUL 25 05:24) H 92 (JUL 24 20:22) MAP 92 (JUL 25 05:24) 92 (JUL 25 05:24) 105 (JUL 24 20:22) SpO2 94 (JUL 25 05:24) L 92 (JUL 24 18:00) 94 (JUL 24 20:22) Physical Examination VS/Measurements Vitals Signs (last 24 hrs) Last Charted Minimum Maximum Temp 99.1 (JUL 25 05:24) 99.1 (JUL 25 05:24) 99.5 (JUL 24 13:33) Mon HR 111 (JUL 25 05:24) 109 (JUL 24 20:22) 112 (JUL 24 13:33) Resp Rate 18 (JUL 24 20:22) 18 (JUL 24 13:33) 18 (JUL 24 13:33) SBP 137 (JUL 25 05:24) 123 (JUL 24 18:00) H 150 (JUL 24 20:22) DBP 79 (JUL 25 05:24) 79 (JUL 25 05:24) H 92 (JUL 24 20:22) MAP 92 (JUL 25 05:24) 92 (JUL 25 05:24) 105 (JUL 24 20:22) SpO2 94 (JUL 25 05:24) L 92 (JUL 24 18:00) 94 (JUL 24 20:22) General: Mild distress, Elderly., Agitated able to state her name only jittery, very slow to answer., Not alert and oriented. Eye: Pupils are equal, round and reactive to light, Extraocular movements are intact. HENT: Normocephalic, Normal hearing. Neck: Supple, No jugular venous distention. Respiratory: Lungs are clear to auscultation, Breath sounds are equal. Cardiovascular: Normal rate, Regular rhythm. Gastrointestinal: Soft, Non-tender, Normal bowel sounds. Genitourinary: No costovertebral angle tenderness. Lymphatics: No lymphadenopathy neck, axilla, groin. Musculoskeletal: Normal range of motion. Integumentary: Dry, Intact. Neurologic: Alert, Not oriented. Psychiatric: Anxious agitated. History of bipolar disorder., Not cooperative, Not appropriate mood & affect. Review / Management Results review: Labs (Last four charted values) WBC 6.4 (JUL 25) 7.8 (JUL 24) 8.7 (JUL 23) 6.6 (JUL 22) HB L 8.0 (JUL 25) L 8.7 (JUL 24) L 8.5 (JUL 23) L 7.9 (JUL 22) HCT L 24.9 (JUL 25) L 26.4 (JUL 24) L 27.1 (JUL 23) L 24.6 (JUL 22) Plt L 149 (JUL 25) 177 (JUL 24) 220 (JUL 23) 191 (JUL 22) Na 144 (JUL 25) 145 (JUL 24) H 152 (JUL 23) 144 (NOV ) K 3.8 (JUL 25) 3.9 (NOV ) 4.2 (NOV 24) 4.5 (NOV ) Cl H 116 (JUL 25) H 115 (JUL 24) H 127 (JUL 23) H 118 (JUL 22) CO2 24 (NOV ) 25 (NOV ) 22 (NOV ) 21 (NOV ) BUN L 4 (JUL 25) L 3 (JUL 24) 7 (NOV ) 13 (NOV ) Cr 0.90 (JUL 25) 0.90 (NOV ) 0.70 (NOV 24) 0.80 (NOV ) Glu R H 123 (JUL 25) H 145 (JUL 24) H 126 (NOV 24) L 63 (NOV ) Ca 8.7 (NOV ) 9.4 (NOV ) 8.8 (NOV 24) L 7.6 (NOV ) Lactic 0.5 (NOV ) AST 14 (NOV ) 17 (NOV ) 18 (NOV 23) 19 (NOV 22) ALT 19 (NOV ) 20 (NOV 25) 17 (NOV 23) 19 (NOV ) ALK P 136 (JUL 25) H 150 (NOV ) 123 (NOV 23) H 148 (NOV ) T Bili 0.5 (JUL 25) 0.8 (JUL 24) 0.7 (JUL 22) 0.5 (JUL 21) PTN L 4.5 (JUL 25) L 4.8 (JUL 24) L 4.0 (JUL 22) L 4.7 (JUL 21) ALB L 2.7 (JUL 25) L 2.9 (JUL 24) L 2.3 (JUL 22) L 2.9 (JUL 21) Troponin 0.019 (JUL 21) . Impression and Plan Altered mental status 2/2 lithium toxicity. acute metabolic encephaolpathy -history of bipolar disorder on lithium, depression, anxiety -CT brain without contrast showed no acute intracranial abnormalities -PT/OT/ST -lithium 3.3 to 2.7 to 2.3 to 1.0 -consult neurology -baseline unclear. called shawn kern no answer Bipolar -depakote 250 bid quetipine 300 mg po qhs -hold lithium pyuria -add rocephin -cx, old cx reviewed with veliz sensitive e.coli Hypotension with hx of hypertension, resolved -coreg 12 bid change to prn lisniopril 2.5 qd dyslipidemia -atorv 20 qhs macrocytic anemia -hx of B12 anemia (high this admit 1999) -suspect dilutional and about at baseline. -recent severe bleed on OAC for PE hg 7.9 to 8.5 to 8.7 Hx PE in ocotber but severe bleeding requiring multiple transfusions -risks of bleeding outweigh benefit at this time felice with concerns about ability to stay compliant with meds and persistent anemia Non hodgkins lymphoma GERD -home meds protonix 40 qd recent covid 19 infection 06/19 Gi prop- protonix 40 qd dvt prop- heparin sq q 12 Disposition: Resolution of acute encephalopathy on top of chronic bipolar dementia. Continue antibiotics. Neurology has been consulted and we have also consulted psychiatry given history of bipolar disorder and the fact that she still rather tearful and emotionally labile. Patient likely to need assisted facility. friday, July 23, 2021. 35 minutes spent on the follow-up very unfortunate elderly lady just returned from hemodialysis for lithium toxicity. Recheck a lithium in the morning. Also she is hypernatremic sodium went from [address] Cornelio Anne with nephrology has changed her IV fluids from D5 normal to D5 half-normal hopefully this will improve the sodium. Recheck a CBC CMP in the morning. Patient's anemia also improved from 7.9 up to 8.5. June. 31-minute spent on follow-up of very unfortunate 75-year-old lady she did get hemodialysis yesterday and fortunately lithium is gone from toxic levels 2.3 down to 1.0 at this morning's very encouraging. Hemoglobin stable at 8. She seems more alert to me today compared to yesterday she is able to state her name but she is very jittery kind of shaking anxious very difficult to understand. I had talked to the patient's nurse who states that on checkout she was told that the patient is doing better from their perspective. I called the phone number on the face sheet and it says an invalid number. The nurse gave me a second phone number belonging to Shawn Timmons phone number [phone] I called that phone number it rang and rang no one picked up that then stated that voicemail has not been set up for this phone so I cannot leave a message. Obviously 1 to find out what her baseline level of function is. Have also consulted neurology to see if they had any recommendations. Resume Depakote as well as Seroquel 300 nightly. Coreg have restarted but as as needed as she was hypotensive earlier. Lisinopril is only at 2.5 daily. Lasix 20 every other day. Sunday, July 25, 2021. 25 minutes spent on the follow-up very unfortunate 75-year-old patient with acute metabolic encephalopathy on top of baseline bipolar disorder possible dementia. Lab findings significant for white blood cell count of 6 hemoglobin 8.0, creatinine 0.9. Patient apparently had Covid back in May with PEs but had severe life-threatening anemia and so decision was made to not have her on anticoagulation at discharge. Case management consulted looking for placement options for her she was discharged to [place] when she was here a month ago hopefully she could return there. Anthillzation system used. Computer program makes numerous spelling grammar mistakes. If you have any questions or concerns do not hesitate call Dr. Bandar Pruett at cell phone number [phone]. documented in this encounter Plan of Treatment Not on file documented as of this encounter Visit Diagnoses Not on filedocumented in this encounter
--- OUTSIDE RECORDS SUMMARY | 2025-03-08 13:18 | XMS_ITS | Encounter Summary ---
Author Organization [employer] ([place], [place], [place], [place]) Address [address] [place] [address] Care Team Providers Care Ski Technician Name Role Phone Unavailable Primary Care Provider Unavailabl e Encounter Details Date Type Department Care Team (Late st Contact Info) Description 06/28/2021 Transcribed Document [facility] [place] Family Medicine [address] [place] [address] ProviderTg MD [address] [place] [address] Social History Tobacco Use Types Packs/Day Years Used Date Smoking Tobacco: Never Assessed Comments Unknown Sex and Gender Information Value Date Recorded Sex Assigned at Not on file Legal Sex Female 2:39 PM CDT Gender Identity Not on file Sexual Orientation Not on file documented as of this encounter Miscellaneous Notes * Cerner Conversion Note - Tg ProviderMD - 06/28/2021 5:00 AM CDT Height and Weight, Routine Entered On: 06/28/2021 5:14 EDT Performed On: 06/28/2021 5:00 EDT by Ran Chew RN-PATIENT CARE BEDSIDE NON-EXEMPT Height and Weight, Routine Routine Weight Source : Bed scale Routine Weight Entry Format : White Routine Weight, Pounds : 253 lb Routine Weight, Ounces : 6 oz Routine Weight Calculation : 115.17 kg Height Source : Stated Height Entry Format : White Height, Feet : 5 ft Height, Inches : 2 Inch Clinical Height : 157.48 cm Body Surface Area (BSA), Routine : 2.12 m2 Body Mass Index (BMI), Routine : 46.44 kg/m2 Ran Chew RN-PATIENT CARE BEDSIDE NON-EXEMPT - 06/28/2021 5:14 EDT Electronically signed by Julian Baca Conversion Quality Assurance Qa Lab Analyst Cerner at 12/18/2022 9:12 AM CDT documented in this encounter Plan of Treatment Not on file documented as of this encounter Visit Diagnoses Not on filedocumented in this encounter
--- OUTSIDE RECORDS SUMMARY | 2025-03-08 13:18 | XMS_ITS | Encounter Summary ---
Author Organization [employer] ([place], [place], [place], [place]) Address [address] [place] [address] Care Team Providers Care Academic Affairs Dean Name Role Phone Unavailable Primary Care Provider Unavailabl e Encounter Details Date Type Department Care Team (Late st Contact Info) Description 07/25/2021 Transcribed Document [facility] [place] Family Medicine [address] [place] [address] ProviderTg MD [address] [place] [address] Social History Tobacco Use Types Packs/Day Years Used Date Smoking Tobacco: Never Assessed Comments Unknown Sex and Gender Information Value Date Recorded Sex Assigned at Not on file Legal Sex Female 2:39 PM CDT Gender Identity Not on file Sexual Orientation Not on file documented as of this encounter Miscellaneous Notes * Cerner Conversion Note - Historical ProviderMD - 07/25/2021 2:00 AM MIRROR FINISHING MACHINE OPERATOR Hand Cutter Details Entered On: 07/25/2021 4:18 EST Performed On: 07/25/2021 2:00 EST by Flaco Monson Lpn Order Details Transport Mode Order Detail : Bed (including specialty) Order Detail : N/A Lift/Transfer : Maximal assist Central Line Order Detail : Yes Room Service : Not Appropriate Arterial Line : No Patient Needs Meds Crushed/Liquid : No Flaco Monson Lpn - 07/25/2021 4:18 EST documented in this encounter Plan of Treatment Not on file documented as of this encounter Visit Diagnoses Not on filedocumented in this encounter
--- OUTSIDE RECORDS SUMMARY | 2025-03-08 13:18 | XMS_ITS | Encounter Summary ---
Author Organization [employer] ([place], [place], [place], [place]) Address [address] [place] [address] Care Team Providers Care Data Entry Supervisor Name Role Phone Unavailable Primary Care Provider Unavailabl e Encounter Details Date Type Department Care Team (Late st Contact Info) Description 06/27/2021 Transcribed Document [facility] [place] Family Medicine [address] [place] [address] ProviderTg MD [address] [place] [address] Social History Tobacco Use Types Packs/Day Years Used Date Smoking Tobacco: Never Assessed Comments Unknown Sex and Gender Information Value Date Recorded Sex Assigned at Not on file Legal Sex Female 2:39 PM CDT Gender Identity Not on file Sexual Orientation Not on file documented as of this encounter Miscellaneous Notes * Cerner Conversion Note - Historical ProviderMD - 06/27/2021 2:00 AM CDT [place] Erector Helper Details Entered On: 06/27/2021 4:04 EDT Performed On: 06/27/2021 2:00 EDT by Ran Chew RN-PATIENT CARE BEDSIDE NON-EXEMPT Order Details Transport Mode Order Detail : Bed (including specialty) Isolation Precautions Order Detail : Standard Precautions Order Detail : N/A IV Order Detail : 1 Oxygen Order Detail : 0 Nurse Collect Order Detail : 1 Lift/Transfer : Maximal assist Central Line Order Detail : Yes Room Service : Needs Assistance Arterial Line : Yes Patient Needs Meds Crushed/Liquid : No Ran Chew RN-PATIENT CARE BEDSIDE NON-EXEMPT - 06/27/2021 4:04 EDT documented in this encounter Plan of Treatment Not on file documented as of this encounter Visit Diagnoses Not on filedocumented in this encounter
--- OUTSIDE RECORDS SUMMARY | 2025-03-08 13:18 | XMS_ITS | Encounter Summary ---
Author Organization [employer] ([place], [place], [place], [place]) Address [address] [place] [address] Care Team Providers Care Graduate Teaching Associate Name Role Phone Unavailable Primary Care Provider Unavailabl e Encounter Details Date Type Department Care Team (Late st Contact Info) Description 07/21/2021 Transcribed Document [facility] [place] [address] [place] [address] ProviderTg MD [address] [place] [address] Social History Tobacco Use Types [...] - Historical ProviderMD - 07/21/2021 2:11 PM COMMERCIAL REPORTER Broset Violence Assessment Entered On: 07/21/2021 14:30 EST Performed On: 07/21/2021 14:30 EST by Josephine Sepulveda RN-PATIENT CARE BEDSIDE NON-EXEMPT Broset Violence Assessment Broset Violence Checklist of Symptoms : None Broset Violence Symptoms Subtotal : 0 Broset Violence Symptoms Indicator : Low risk (0) Josephine Sepulveda RN-PATIENT CARE BEDSIDE NON-EXEMPT - 07/21/2021 14:30 EST Electronically signed by [facility] Conversion Solar Consultant Seng at 12/18/2022 9:08 AM CDT documented in this encounter Plan of Treatment Not on file documented as of this encounter Visit Diagnoses Not on filedocumented in this encounter
--- OUTSIDE RECORDS SUMMARY | 2025-03-08 13:18 | XMS_ITS | Encounter Summary ---
Author Organization [employer] ([place], [place], [place], [place]) Address [address] [place] [address] Care Team Providers Care Database Security Administrator Name Role Phone Unavailable Primary Care Provider Unavailabl e Encounter Details Date Type Department Care Team (Late st Contact Info) Description 06/27/2021 Transcribed Document [facility] [place] [address] [place] [address] ProviderTg MD [address] [place] [address] Social History Tobacco Use Types Packs/Day Years Used Date Smoking Tobacco: Never Assessed Comments Unknown Sex and Gender Information Value Date Recorded Sex Assigned at Not on file Legal Sex Female 2:39 PM CDT Gender Identity Not on file Sexual Orientation Not on file documented as of this encounter Miscellaneous Notes * Cerner Conversion Note - Tg ProviderMD - 06/27/2021 5:00 AM CDT Chart Check - Review Order Profile Entered On: 06/27/2021 4:05 EDT Performed On: 06/27/2021 5:00 EDT by Ran Chew RN-PATIENT CARE BEDSIDE NON-EXEMPT Chart Check Powerplans Initiated/Discontinued as Appropriate : Yes All Active Orders Reviewed : Yes Ran Chew RN-PATIENT CARE BEDSIDE NON-EXEMPT - 06/27/2021 4:05 EDT documented in this encounter Plan of Treatment Not on file documented as of this encounter Visit Diagnoses Not on filedocumented in this encounter
--- OUTSIDE RECORDS SUMMARY | 2025-03-08 13:18 | XMS_ITS | Encounter Summary ---
Author Organization [employer] ([place], [place], [place], [place]) Address [address] [place] [address] Care Team Providers Care Hydrogen Plant Operator Name Role Phone Unavailable Primary Care Provider Unavailabl e Encounter Details Date Type Department Care Team (Late st Contact Info) Description 06/27/2021 Transcribed Document [facility] [place] [address] [place] [address] ProviderTg MD [address] [place] [address] Social History Tobacco Use Types Packs/Day Years Used Date Smoking Tobacco: Never Assessed Comments Unknown Sex and Gender Information Value Date Recorded Sex Assigned at Not on file Legal Sex Female 2:39 PM CDT Gender Identity Not on file Sexual Orientation Not on file documented as of this encounter Miscellaneous Notes * Cerner Conversion Note - Tg Jones MD - 06/27/2021 7:39 PM CDT Patient: SUDHA TIMMONS Age: 75 [...] hospitalist She remains on atovaquone and minocycline 06/24 afebrile, conversant, denies pain 06/25 afebrile, alert, initiating conversation, slow progress with PT 06/27 afebrile, O2 sats normal on RA, refused PT, tapered down to 10mg daily prednisone and remains on atovaquone ROS - not available - discussed with [...] loperamide: 2 mg, Oral, Q4H, PRN: Diarrhea oxyCODONE: 5 mg, Oral, Q4H, PRN: Pain (Severe 7-10) predniSONE: 10 mg, Oral, Daily predniSONE: 5 mg, Oral, Daily Pending Complete cyanocobalamin: 1,000 mcg, IntraMuscular, Daily [...] 24 hrs) Last Charted Minimum Maximum Temp 99.2 (JUN 27 14:00) 97.5 (JUN 27 11:00) 99.2 (JUN 27 14:00) Mon HR 96 (JUN 27:00) 70 (JUN 27 08:00) 98 (JUN 26 20:32) Resp Rate 16 (JUN 27 14:00) 16 (JUN 27 14:00) 18 (JUN 26 20:32) SBP 134 (JUN 27 14:00) 99 (JUN 27 08:00) 134 (JUN 27 14:00) DBP H 95 (JUN 27 14:00) L 54 (JUN 27 11:00) H 95 (JUN 27 14:00) MAP 97 (JUN 27 11:00) 70 (JUN 27 05:00) 97 (JUN 27 11:00) SpO2 95 (JUN 27 16:00) L 93 (JUN 27 14:00) 95 (JUN 26 20:32) General: no distress, On RA Eye: Normal conjunctiva. HENT: Normocephalic, Oral mucosa is moist. Neck: Supple, Non-tender. Respiratory: Lungs are clear to auscultation, Breath sounds are equal. Cardiovascular: Normal rate, Normal peripheral perfusion, Mild LE edema Gastrointestinal: Soft, Non-tender Musculoskeletal: No deformity. Integumentary: Warm, Dry. Neurologic: groggy, confused. Psychiatric: not Cooperative. Review / Management Results review: Labs (Last four charted values) WBC 6.1 (JUN 27) 7.5 (JUN 26) 8.5 (JUN 25) H 10.9 (JUN 24) HB L 7.7 (JUN 27) L 8.3 (JUN 26) L 8.1 (JUN 25) L 7.6 (JUN 24) HCT L 24.1 (JUN 27) L 25.3 (JUN 26) L 25.0 (JUN 25) L 23.3 (JUN 24) Plt L 116 (JUN 27) L 131 (JUN 26) L 152 (JUN 25) L 142 (JUN 24) Na L 135 (JUN 27) L 135 (JUN 26) 136 (JUN 25) 136 (JUN 24) K 4.5 (JUN 27) 4.5 (JUN 26) 4.9 (JUN 25) 4.8 (JUN 24) Cl 104 (JUN 27) 104 (JUN 26) 106 (JUN 25) 105 (JUN 24) CO2 23 (JUN 27) 21 (JUN 26) 21 (JUN 25) 24 (JUN 24) BUN 18 (JUN 27) 21 (JUN 26) 21 (JUN 25) H 23 (JUN 24) Cr 0.70 (JUN 27) 0.80 (JUN 26) 0.80 (JUN 25) 0.80 (JUN 24) Glu R 87 (JUN 27) 77 (JUN 26) 80 (JUN 25) 82 (JUN 24) Ca 8.6 (JUN 27) 8.4 (JUN 26) L 8.3 (JUN 25) 8.5 (JUN 24) Lactic 1.6 (JUN 17) 1.0 (JUN 07) [...] CD4 214 -- Agree with stopping Zosyn --s/p minocycline -- continue atovaquone to 06/30 when her prednisone will be reduced Electronically signed by Julian Baca Conversion Dusting And Brushing Machine Operator Arlenener at 12/18/2022 9:10 AM CDT documented in this encounter Plan of Treatment Not on file documented as of this encounter Visit Diagnoses Not on filedocumented in this encounter
--- OUTSIDE RECORDS SUMMARY | 2025-03-08 13:18 | XMS_ITS | Encounter Summary ---
Author Organization [employer] ([place], [place], [place], [place]) Address [address] [place] [address] Care Team Providers Care Lpn Rn Hospice Name Role Phone Unavailable Primary Care Provider Unavailabl e Encounter Details Date Type Department Care Team (Late st Contact Info) Description 07/25/2021 Transcribed Document [facility] [place] [address] [place] [address] ProviderTg MD [address] [place] [address] Social History Tobacco Use Types Packs/Day Years Used Date Smoking Tobacco: Never Assessed Comments Unknown Sex and Gender Information Value Date Recorded Sex Assigned at Not on file Legal Sex Female 2:39 PM CDT Gender Identity Not on file Sexual Orientation Not on file documented as of this encounter Miscellaneous Notes * Cerner Conversion Note - Tg Jones MD - 07/25/2021 10:04 AM PRIZE JACKER Patient: SUDHA SOLORZANO Age: 75 Years Sex: Female : 1945 Assessment/Plan Acute metabolic encephalopathy secondary to lithium toxicity. The patient has a history of bipolar disorder, was on lithium. [place] level was elevated 3.2 to start with. The patient was appropriately started on IV fluid. The patient has a normal renal function. We will continue to monitor the lithium level closely and monitor hypotensive episode, non-Hodgkin's lymphoma, gastroesophageal reflux disease. PLAN: The patient came in with lithium toxicity. The patient has normal renal function. At this time,we will continue with IV fluid and continue to monitor the patient lithium level closely. IV fluid therapy alone was not adequate to reduce lithium level less than 1 Patient has a high risks for fluid overload She had dialysis catheter placed Was dialyzed for 4 hours to remove lithium extracorporeally [place] level is now 1 No further HD require, arrange to remove vascular access. Stop checking lithium level Thank you for getting [facility] involved in the management of this patient. We will continue to follow up with you closely should in case there is any need for change in plan or therapy. Thank you once again. VTE Prophylaxis - Medical Sequential Compression Device Start: 07/21/21 21:11:00 EST, Bilateral, Length: Knee High, While patient is in bed, Continuous Order (LAURE COVINGTON) Subjective Patient was seen and evaluated by bedside Vital Signs T: 37.3 ??C TMIN: 37.3 ??C TMAX: 37.6 ??C HR: 111(Monitored) RR: 18 BP: 137/79 SpO2: 94% Oxygen Settings (Last) Oxygen Therapy Mode: Room air (07/25/21 05:24:00) Intake & Output Totals Last 24 Hours (7a-7a) Input Total: 1570 mL Output Total: 825 mL Balance: 745 mL Physical Exam GENERAL APPEARANCE: This is an elderly female in no acute respiratory distress. Awake, alert, but confused, unable to fully communicate. HEAD AND NECK: Normocephalic, atraumatic. Pupils reactive to light. Extraocular muscles intact. Mucous membranes pink and moist. NECK: Supple. There is no JVD. No carotid bruit. No lymphadenopathy. No thyroid masses were palpable in the neck. CHEST: The patient has good respiratory effort. No accessory muscle use. Air entry is adequate bilaterally. There is no wheezing. No rales. HEART: First and second heart sounds heard. There is no murmur. No gallop. Regular rate and rhythm. ABDOMEN: Soft, nontender, nondistended. Bowel sounds auscultated in all 4 quadrants, normoactive. NEUROLOGIC: The patient is awake and alert, but confused, unable to hold full conversation. EXTREMITIES: Lower extremities, no edema. Medications aspirin, 81 mg= 1 Tab, Oral, Daily Ativan, 2 mg= 1 mL, IV Push, Q5Min, PRN atorvastatin, 40 mg= 1 Tab, Oral, At Bedtime bisacodyl, 10 mg= 1 Supp, Rectal, Daily, PRN Colace, 100 mg= 1 Cap, Oral, BID, PRN Coreg, 12.5 mg= 1 Tab, Oral, BID, PRN cyanocobalamin, 1000 mcg= 1 Tab, Oral, Daily Depakote, 250 mg= 1 Tab, Oral, BID Dextrose 5% with 0.45% NaCl intravenous solution 1,000 mL, 1000 mL, IntraVENous Dextrose 50% injection, 25 Gram= 50 mL, IV Push, Q15Min, PRN Dextrose 50% injection, 25 Gram= 50 mL, IV Push, Q15Min, PRN Dextrose 50% injection, 25 Gram= 50 mL, IV Push, Q15Min, PRN Dextrose 50% injection, 12.5 Gram= 25 mL, IV Push, Q15Min, PRN Dulcolax Laxative, 5 mg= 1 Tab, Oral, Daily, PRN DuoNeb 0.5 mg-2.5 mg/3 mL inhalation solution, 3 mL, Nebulized Inhalation , RT_Q4H, PRN furosemide, 20 mg= 1 Tab, Oral, EveryOtherDay glucagon, 1 mg= 1 mL, IntraMuscular, Q15Min, PRN glucose 4 g oral tablet, chewable, 16 Gram= 4 Tab, Chew, Q15Min, PRN glucose 40% oral gel, 15 Gram= 37.5 mL, Oral, Q15Min, PRN lisinopril, 2.5 mg= 0.5 Tab, Oral, Daily melatonin, 5 mg= 1 Tab, Oral, At Bedtime, PRN MiraLax, 17 Gram= 1 Packet, Oral, Daily, PRN [place] 5 mg-325 mg oral tablet, 1 Tab, Oral, BID, PRN Normal Saline Flush, 10 mL, IV Push, Q12H Normal Saline Flush, 10 mL, IV Push, See Comment, PRN pantoprazole, 40 mg= 1 Tab, Oral, Daily Phenergan, 6.25 mg= 0.25 mL, IntraVENous, Q6H, PRN QUEtiapine, 300 mg= 3 Tab, Oral, At Bedtime Rocephin Tylenol, 650 mg= 2 Tab, Oral, Q4H, PRN Tylenol, 650 mg= 2 Tab, Oral, Q4H, PRN Zofran, 4 mg= 2 mL, IV Push, Q4H, PRN Lab Results Test Name Test Result Date/Time Sodium Level 144 mmol/L 07/25/2021 04:09 EST Potassium Level 3.8 mmol/L 07/25/2021 04:09 EST Chloride Level 116 mmol/L (High) 07/25/2021 04:09 EST Carbon Dioxide Level 24 mmol/L 07/25/2021 04:09 EST Anion Gap 8 (Low) 07/25/2021 04:09 EST Glucose Level 123 mg/dL (High) 07/25/2021 04:09 EST Blood Urea Nitrogen 4 mg/dL (Low) 07/25/2021 04:09 EST Creatinine Level 0.90 mg/dL 07/25/2021 04:09 EST eGFR >60 mL/min/1.73m2 07/25/2021 04:09 EST eGFR NonAfrican >60 mL/min/1.73m2 07/25/2021 04:09 EST Bun/Creatinine 4.4 (Low) 07/25/2021 04:09 EST Calcium Level 8.7 mg/dL 07/25/2021 04:09 EST Protein Total 4.5 Gram/dL (Low) 07/25/2021 04:09 EST Albumin Level 2.7 Gram/dL (Low) 07/25/2021 04:09 EST Globulin 1.8 Gram/dL 07/25/2021 04:09 EST A/G Ratio 1.5 07/25/2021 04:09 EST Bilirubin Total 0.5 mg/dL 07/25/2021 04:09 EST Alk Phos 136 Units/Liter 07/25/2021 04:09 EST AST 14 Units/Liter 07/25/2021 04:09 EST ALT 19 Units/Liter 07/25/2021 04:09 EST Device Comment 1 Protocols Followed 07/25/2021 05:18 EST Device Comment 1 Notified Nurse RBV 07/24/2021 21:06 EST Device Comment 1 Notified Nurse RBV 07/24/2021 15:21 EST Device Comment 1 Notified Nurse RBV 07/24/2021 11:24 EST Glucose POC2 111 mg/dL (High) 07/25/2021 05:18 EST Glucose POC2 133 mg/dL (High) 07/24/2021 21:06 EST Glucose POC2 128 mg/dL (High) 07/24/2021 15:21 EST Glucose POC2 129 mg/dL (High) 07/24/2021 11:24 EST WBC 6.4 K/uL 07/25/2021 04:09 EST RBC 2.26 Million/uL (Low) 07/25/2021 04:09 EST Hgb 8.0 g/dL (Low) 07/25/2021 04:09 EST Hct 24.9 % (Low) 07/25/2021 04:09 EST MCV 110.2 fL (High) 07/25/2021 04:09 EST MCH 35.4 pg (High) 07/25/2021 04:09 EST MCHC 32.1 Gram/dL (Low) 07/25/2021 04:09 EST Platelet Count 149 K/uL (Low) 07/25/2021 04:09 EST MPV 10.8 fL 07/25/2021 04:09 EST RDW 19.9 % (High) 07/25/2021 04:09 EST Neutrophil Percent Man 70 % (High) 07/25/2021 04:09 EST ANC # 4 K/uL 07/25/2021 04:09 EST Lymph Percent Man 10 % (Low) 07/25/2021 04:09 EST ALYC # 1 K/uL 07/25/2021 04:09 EST [place] Percent Man 15 % (High) 07/25/2021 04:09 EST Eos Percent Man 3 % 07/25/2021 04:09 EST Baso Percent Man 2 % (High) 07/25/2021 04:09 EST RBC Morphology Abnormal 07/25/2021 04:09 EST Anisocytosis 1+ (Abnormal) 07/25/2021 04:09 EST Poikilocytosis 1+ (Abnormal) 07/25/2021 04:09 EST Polychromasia 1+ (Abnormal) 07/25/2021 04:09 EST Hypochromia 1+ (Abnormal) 07/25/2021 04:09 EST [place] Cells 1+ (Abnormal) 07/25/2021 04:09 EST Ovalocytes 1+ (Abnormal) 07/25/2021 04:09 EST Macrocytosis 1+ (Abnormal) 07/25/2021 04:09 EST Dohle Bodies Present (Abnormal) 07/25/2021 04:[address] Estimate Decreased (Abnormal) 07/25/2021 04:09 EST Slide Review Add Diff 07/25/2021 04:09 EST [place] Level 0.8 mmol/L 07/25/2021 04:09 EST [place] Level 0.9 mmol/L 07/24/2021 22:04 EST [place] Level 1.0 mmol/L 07/24/2021 16:17 EST [place] Level 1.0 mmol/L 07/24/2021 10:33 EST documented in this encounter Plan of Treatment Not on file documented as of this encounter Visit Diagnoses Not on filedocumented in this encounter
--- OUTSIDE RECORDS SUMMARY | 2025-03-08 13:18 | XMS_ITS | Encounter Summary ---
Author Organization [employer] ([place], [place], [place], [place]) Address [address] [place] [address] Care Team Providers Care Furnace Hand Name Role Phone Unavailable Primary Care Provider Unavailabl e Encounter Details Date Type Department Care Team (Late st Contact Info) Description 07/21/2021 Transcribed Document [facility] [place] [address] [place] [address] ProviderTg MD [address] [place], [place] [id number] Social History Tobacco Use Types Packs/Day Years Used Date Smoking Tobacco: Never Assessed Comments Unknown Sex and Gender Information Value Date Recorded Sex Assigned at Not on file Legal Sex Female 2:39 PM CDT Gender Identity Not on file Sexual Orientation Not on file documented as of this encounter Miscellaneous Notes * Cerner Conversion Note - Historical ProviderMD - 07/21/2021 2:14 PM MOLASSES PREPARER Pre-Arrival Summary Name: ivy, Current Date: 07/21/2021 14:14:53 EST Gender: Age: Pre-Arrival Type: EMS ETA: 07/21/2021 14:33:00 EST Chief Complaint: Pre-Arrival User: [facility] Transit Bus 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
--- OUTSIDE RECORDS SUMMARY | 2025-03-08 13:18 | XMS_ITS | Encounter Summary ---
Author Organization [employer] ([place], [place], [place], [place]) Address [address] [place] [address] Care Team Providers Care Tax Professional Name Role Phone Unavailable Primary Care Provider Unavailabl e Encounter Details Date Type Department Care Team (Late st Contact Info) Description 07/24/2021 Transcribed Document [facility] [place] [address] [place] [address] ProviderTg MD [address] [place] [address] Social History Tobacco Use Types Packs/Day Years Used Date Smoking Tobacco: Never Assessed Comments Unknown Sex and Gender Information Value Date Recorded Sex Assigned at Not on file Legal Sex Female 2:39 PM CDT Gender Identity Not on file Sexual Orientation Not on file documented as of this encounter Miscellaneous Notes * Cerner Conversion Note - Tg Jones MD - 07/24/2021 8:41 AM MIDDLE STITCHER Patient: SUDHA TIMMONS Age: 75 Years Sex: Female : 1945 Assessment/Plan Acute metabolic encephalopathy secondary to lithium toxicity. The patient has a history of bipolar disorder, was on lithium. Lead level was elevated 3.2 to start with. [...] lithium level closely. IV fluid therapy alone at this time not adequate to reduce lithium level less than 1 Patient has a high risks for fluid overload We arranged for dialysis catheter placement Was dialyzed for 4 hours to remove lithium extracorporeally Lead level is now 1 No HD today, keep vascular access in place for now Give Lead time to equalibrate between tissue level and intravascular level Thank you for getting [facility] [...] and evaluated by bedside Vital Signs T: 37.6 ??C TMIN: 36.9 ??C TMAX: 37.6 ??C HR: 116(Monitored) RR: 18 BP: 131/65 SpO2: 98% Oxygen Settings (Last) Oxygen Therapy Mode: Room air (07/24/21 03:34:00) Intake & Output Totals Last 24 Hours (7a-7a) Input Total: 70 mL Output Total: 950 mL Balance: -880 mL Physical Exam GENERAL APPEARANCE: This is [...] conversation. EXTREMITIES: Lower extremities, no edema. Medications Ativan, 2 mg= 1 mL, IV Push, Q5Min, PRN Dextrose 5% with 0.45% NaCl intravenous solution [...] 3 mL, Nebulized Inhalation , RT_Q4H, PRN glucagon, 1 mg= 1 mL, IntraMuscular, Q15Min, PRN glucose 4 g oral tablet, chewable, 16 Gram= 4 Tab, Chew, Q15Min, PRN glucose 40% oral gel, 15 Gram= 37.5 mL, Oral, Q15Min, PRN melatonin, 5 mg= 1 Tab, Oral, At Bedtime, PRN MiraLax, 17 Gram= 1 Packet, Oral, Daily, PRN Normal Saline Flush, 10 mL, IV Push, Q12H Normal Saline Flush, 10 mL, IV Push, See Comment, PRN Pepcid, 20 mg= 1 Tab, Oral, Q12H Phenergan, 6.25 mg= 0.25 mL, IntraVENous, Q6H, PRN Rocephin Tylenol, 650 mg= 2 Tab, Oral, Q4H, PRN Tylenol, 650 mg= 2 Tab, Oral, Q4H, PRN Zofran, 4 mg= 2 mL, IV Push, Q4H, PRN Lab Results Test Name Test Result Date/Time Device Comment 1 Notified Nurse RBV 07/23/2021 20:47 EST Device Comment 1 Notified Nurse RBV 07/23/2021 16:09 EST Glucose POC2 128 mg/dL (High) 07/23/2021 20:47 EST Glucose POC2 119 mg/dL (High) 07/23/2021 16:09 EST Lead Level 1.0 mmol/L 07/24/2021 05:35 EST Lead Level 1.0 mmol/L 07/23/2021 22:26 EST Lead Level 0.9 mmol/L 07/23/2021 16:38 EST documented in this encounter Plan of Treatment Not on file documented as of this encounter Visit Diagnoses Not on filedocumented in this encounter
--- OUTSIDE RECORDS SUMMARY | 2025-03-08 13:18 | XMS_ITS | Encounter Summary ---
Author Organization [employer] ([place], [place], [place], [place]) Address [address] [place] [address] Care Team Providers Care Engineer Booster And Exhauster Name Role Phone Unavailable Primary Care Provider Unavailabl e Encounter Details Date Type Department Care Team (Late st Contact Info) Description 07/25/2021 Transcribed Document [facility] [place] [address] [place] [address] ProviderTg MD [address] [place], [place] [id number] Social History Tobacco Use Types Packs/Day Years Used Date Smoking Tobacco: Never Assessed Comments Unknown Sex and Gender Information Value Date Recorded Sex Assigned at Not on file Legal Sex Female 2:39 PM CDT Gender Identity Not on file Sexual Orientation Not on file documented as of this encounter Miscellaneous Notes * Cerner Conversion Note - Historical ProviderMD - 07/25/2021 10:54 AM VENEER PRESS OPERATOR Consult Phone Call Documentation Entered On: 07/25/2021 11:53 EST Performed On: 07/25/2021 10:54 EST by Antoni Zarate, [facility] Phone Call for Consults Consult Phone Call/Page Attempt : First call Date and Time Call Returned : 07/25/2021 11:53 EST Antoni Zarate, [facility] - 07/25/2021 11:53 EST documented in this encounter Plan of Treatment Not on file documented as of this encounter Visit Diagnoses Not on filedocumented in this encounter
--- OUTSIDE RECORDS SUMMARY | 2025-03-08 13:18 | XMS_ITS | Encounter Summary ---
Author Organization [employer] ([place], [place], [place], [place]) Address [address] [place] [address] Care Team Providers Care Medicare Sales Executive Name Role Phone Unavailable Primary Care Provider Unavailabl e Encounter Details Date Type Department Care Team (Late st Contact Info) Description 06/28/2021 Transcribed Document [facility] [place] [address] [place] [address] ProviderTg MD [address] [place] [address] Social History Tobacco Use Types Packs/Day Years Used Date Smoking Tobacco: Never Assessed Comments Unknown Sex and Gender Information Value Date Recorded Sex Assigned at Not on file Legal Sex Female 2:39 PM CDT Gender Identity Not on file Sexual Orientation Not on file documented as of this encounter Miscellaneous Notes * Cerner Conversion Note - Historical ProviderMD - 06/28/2021 2:00 AM CDT Citizen Participation Specialist Details Entered On: 06/28/2021 1:55 EDT Performed On: 06/28/2021 2:00 EDT by Ran Chew RN-PATIENT CARE [...] Chew RN-PATIENT CARE BEDSIDE NON-EXEMPT - 06/28/2021 1:55 EDT documented in this encounter Plan of Treatment Not on file documented as of this encounter Visit Diagnoses Not on filedocumented in this encounter
--- OUTSIDE RECORDS SUMMARY | 2025-03-08 13:18 | XMS_ITS | Encounter Summary ---
Author Organization [employer] ([place], [place], [place], [place]) Address [address] [place] [address] Care Team Providers Care Gear Setter Name Role Phone Unavailable Primary Care Provider Unavailabl e Encounter Details Date Type Department Care Team (Late st Contact Info) Description 06/21/2021 Transcribed Document [facility] [place] Medicine [address] [place] [address] ProviderTg MD [address] [place] [address] Social History Tobacco Use Types Packs/Day Years Used Date Smoking Tobacco: Never Assessed Comments Unknown Sex and Gender Information Value Date Recorded Sex Assigned at Not on file Legal Sex Female 2:39 PM CDT Gender Identity Not on file Sexual Orientation Not on file documented as of this encounter Miscellaneous Notes * Cerner Conversion Note - Tg Jones MD - 06/21/2021 12:02 PM CDT Patient: SUDHA TIMMONS Age: 75 Years Sex: Female : 1945 Assessment/Plan 1. Multifactorial ATN secondary to infection/contrast-induced nephropathy in setting of being on DEMETRI inhibitors 2. Hypernatremia resolved 3. Mild acidosis, non-anion gap secondary to REBECCA(resolved) 4. PE 5. Covid pneumonitis Plan -improvement in Kidney function with creatinine down to 0.7-->0.8 -Mild elevation of CK not clinically significant -Non-oliguric, with good urine output -Avoid nephrotoxins, please keep MAP above 65, Avoid IV Contrast -strict intake and output - Sodium trend:145-->143-->143 -Thanks for consultation, follow along with you VTE Prophylaxis - Medical Enoxaparin 115 mg, SubCutaneous, Inj, [id number], Routine, Start 06/16/21 21:00:00 EDT, 06/16/21 21:00:00 EDT (ENRIQUE LINDSEY) Sequential Compression Device Start: 06/07/21 14:19:00 EDT, Bilateral, Length: Knee High, While patient is in bed, Continuous Order (CARA DE LA ROSA) Subjective Patient was seen and evaluated by bedside Vital Signs T: 36.6 ??C TMIN: 36.6 [...] mL Balance: 774.97 mL Physical Exam General: confused, lethargiic , Not alert and [...] PRN Lovenox, 115 mg= 1.15 mL, SubCutaneous, [id number] minocycline, 100 mg= 2 Cap, Oral, Q12H [...] MD RBV 06/20/2021 16:53 EDT Glucose POC2 113 mg/dL (High) 06/21/2021 [...] Lymph # 1.54 x10(3)/uL 06/21/2021 04:45 EDT [place] % 7.6 % 06/21/2021 04:45 EDT [place] # 0.82 K/uL 06/21/2021 04:45 EDT Eos [...]
--- OUTSIDE RECORDS SUMMARY | 2025-03-08 13:18 | XMS_ITS | Encounter Summary ---
Author Organization [employer] ([place], [place], [place], [place]) Address [address] [place] [address] Care Team Providers Care Cattle Sticker Name Role Phone Unavailable Primary Care Provider Unavailabl e Encounter Details Date Type Department Care Team (Late st Contact Info) Description 06/28/2021 Transcribed Document [facility] [place] Family Medicine [address] [place] [address] ProviderTg MD [address] [place] [address] Social History Tobacco Use Types Packs/Day Years Used Date Smoking Tobacco: Never Assessed Comments Unknown Sex and Gender Information Value Date Recorded Sex Assigned at Not on file Legal Sex Female 2:39 PM CDT Gender Identity Not on file Sexual Orientation Not on file documented as of this encounter Miscellaneous Notes * Cerner Conversion Note - Historical ProviderMD - 06/28/2021 2:46 PM CDT Discharge Summary, PT Entered On: 06/28/2021 14:48 EDT Performed On: 06/28/2021 14:46 EDT by XIOMY STEWART PT Discharge Summary Discharge Summary Provider Notified : Physical Therapy Reason for Discharge : Discharge order Discharged to, Therapy : Unit, assisted Discharge Summary Comment, PT : Pt met 3/7 goals. Pt required max A x 2 for supine to/from sit and mod A x 2 sit to/from stand last assessment. Not able to ambulate. Needs continued PTx in SNF. XIOMY STEWART PT - 06/28/2021 14:46 EDT Short Term Goals Mobility/Bed Mobility STG PT Grid Goal #1 Goal #2 Activity : Supine to sit Other: Patient will Roll L and R Assist : Assist, maximal Assist, maximal Date to Meet : 06/27/2021 EDT 06/27/2021 EDT Goal Status : Goal met Goal met Date Met : 06/25/2021 EDT 06/24/2021 EDT Comment : of 2 XIOMY STEWART, PT - 06/28/2021 14:46 EDT XIOMY STEWART, PT - 06/28/2021 14:46 EDT Other PT STG Grid Goal #1 Date to Meet : 06/15/2021 EDT Goal Status : Not met XIOMY STEWART, PT - 06/28/2021 14:46 EDT Cooling Machine Operator Goals Mobility/Bed Mobility LTG PT Grid Goal #1 Goal #2 Goal #3 Activity : Supine to sit Other: Patient will Roll L and R Sit to stand Assist : Assist, minimal Assist, minimal Assist, moderate Equipment : Walker, front wheel Date to Meet : 07/04/2021 EDT 07/04/2021 EDT 07/04/2021 EDT Goal Status : Goal met Not met Not met Date Met : 06/25/2021 EDT XIOMY STEWART, PT - 06/28/2021 14:46 EDT XIOMY STEWART, PT - 06/28/2021 14:46 EDT XIOMY STEWART, PT - 06/28/2021 14:46 EDT Transfer LTG Grid Goal #1 Destination : Chair, with arms Type : Stand Pivot Sit Assist : Assist, moderate Equipment : Walker, front wheel Date to Meet : 07/04/2021 EDT Goal Status : Not met XIOMY STEWART, PT - 06/28/2021 14:46 EDT documented in this encounter Plan of Treatment Not on file documented as of this encounter Visit Diagnoses Not on filedocumented in this encounter
--- OUTSIDE RECORDS SUMMARY | 2025-03-08 13:18 | XMS_ITS | Encounter Summary ---
Author Organization [employer] ([place], [place], [place], [place]) Address [address] [place] [address] Care Team Providers Care Pediatrician Managing Partner Name Role Phone Unavailable Primary Care Provider Unavailabl e Encounter Details Date Type Department Care Team (Late st Contact Info) Description 06/21/2021 Transcribed Document [facility] [place] Family Medicine [address] [place] [address] ProviderTg MD [address] [place] [address] Social History Tobacco Use Types Packs/Day Years Used Date Smoking Tobacco: Never Assessed Comments Unknown Sex and Gender Information Value Date Recorded Sex Assigned at Not on file Legal Sex Female 2:39 PM CDT Gender Identity Not on file Sexual Orientation Not on file documented as of this encounter Miscellaneous Notes * Cerner Conversion Note - Tg ProviderMD - 06/21/2021 5:00 AM CDT Chart Check - Review Order Profile Entered On: 06/21/2021 7:25 EDT Performed On: 06/21/2021 5:00 EDT by Ran Chew RN-PATIENT CARE BEDSIDE NON-EXEMPT Chart Check Powerplans Initiated/Discontinued as Appropriate : Yes All Active Orders Reviewed : Yes Ran Chew RN-PATIENT CARE BEDSIDE NON-EXEMPT - 06/21/2021 7:25 EDT documented in this encounter Plan of Treatment Not on file documented as of this encounter Visit Diagnoses Not on filedocumented in this encounter
--- OUTSIDE RECORDS SUMMARY | 2025-03-08 13:18 | XMS_ITS | Encounter Summary ---
Author Organization [employer] ([place], [place], [place], [place]) Address [address] [place] [address] Care Team Providers Care Speech Language Pathologist Name Role Phone Unavailable Primary Care Provider Unavailabl e Encounter Details Date Type Department Care Team (Late st Contact Info) Description 07/25/2021 Transcribed Document [facility] [place] Family Medicine [address] [place] [address] ProviderTg MD [address] [place] [address] Social History Tobacco Use Types Packs/Day Years Used Date Smoking Tobacco: Never Assessed Comments Unknown Sex and Gender Information Value Date Recorded Sex Assigned at Not on file Legal Sex Female 2:39 PM CDT Gender Identity Not on file Sexual Orientation Not on file documented as of this encounter Miscellaneous Notes * Cerner Conversion Note - Tg ProviderMD - 07/25/2021 12:43 PM HOSPICE CARE SALES CONSULTANT On Going Discharge Planning Entered On: 07/25/2021 12:48 EST Performed On: 07/25/2021 12:43 EST by PEDRO MARLOW RN-Capacitor AssemblerSalesperson Burial Needs Progress Note Patient Offered Choice/Affiliations Explained : Yes Is the Patient Meeting Medical Necessity : Yes Physician Agreeable to Move Forward with D/C Plan? : Yes Did you Attend Multidisciplinary Rounds? : Yes PEDRO MARLOW RN-Capacitor Assembler - 07/25/2021 13:05 EST Discharge Arrangements : Patient Post-Acute Information Patient Name: SUDHA TIMMONS Gender: Female : [birth year] Age: 75 Years No Post-Acute Placement(s) Listed No Post-Acute Service(s) Listed No [facility] Referral(s) Listed Discharge Options Discussed with Patient : Discharge transportation, Short term rehabilitation Barriers to Discharge Identified : Clinical Condition of Patient Barriers to Discharge Unresolved : Clinical Condition of Patient Patient Discharge Goal : custodial facility PEDRO MARLOW RN-Capacitor Assembler - 07/25/2021 12:43 EST Narrative Progress Note Narrative Progress Note : RAR Moderate ELOS: 2 days HD# Adm 06/07 - 06/28/2021 Covid PNA PE 75 [place]. 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 Consult: Nephrology 07/23 Hugo Cath Placed 07/23 1st HD Nephrology Plan: Discontinue HD access as [place] level normal at 0.8. Continues to have AMS; acute encephalopathy on top of chronic bipolar dementia. DCP: REGINO spoke with patient's son Shawn [phone] and he is in agreement with her returing to [place] but would like to see her closer to her baseline before she goes. ordered Psych consult also. REGINO spoke with rian Rayo at [place] and patient can return at discharge. PEDRO MARLOW RN-Capacitor Assembler - 07/25/2021 13:05 EST Historical Progress Note : RAR Moderate ELOS: 2 days HD#2 Adm 06/07 - 06/28/2021 Covid PNA PE 75 [place]. 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 Consult: Nephrology 07/23 Hugo Cath Placed 07/23 1st HD DCP: Anticipate patient will discharge back to [place]. PEDRO MARLOW RN-Capacitor Assembler - 07/23/21 17:40:30 RAR Moderate ELOS: 2 days HD#1 Adm 06/07 - 06/28/2021 Covid PNA PE 75 [place]. 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 Consult: Nephrology Patient lives with her 98 year old father Sai [phone] and her son Shawn [phone] in [place]. Her PCP is Dr. Binh Berg. Patient was ADL independent prior to her admission in May. DME as listed. DCP: Anticipate patient will discharge back to [place]. PEDRO MARLOW RN-Capacitor Assembler - 07/22/21 17:42:24 PEDRO MARLOW, RN-Capacitor Assembler - 07/25/2021 12:43 EST Electronically signed by Keven, [facility] Conversion Multimedia Engineer Cerner at 12/18/2022 9:11 AM CDT documented in this encounter Plan of Treatment Not on file documented as of this encounter Visit Diagnoses Not on filedocumented in this encounter
--- OUTSIDE RECORDS SUMMARY | 2025-03-08 13:18 | XMS_ITS | Encounter Summary ---
Author Organization [employer] ([place], [place], [place], [place]) Address [address] [place] [address] Care Team Providers Care Media Director Name Role Phone Unavailable Primary Care Provider Unavailabl e Encounter Details Date Type Department Care Team (Late st Contact Info) Description 06/27/2021 Transcribed Document [facility] [place] Family Medicine [address] [place] [address] ProviderTg MD [address] [place] [address] Social History Tobacco Use Types Packs/Day Years Used Date Smoking Tobacco: Never Assessed Comments Unknown Sex and Gender Information Value Date Recorded Sex Assigned at Not on file Legal Sex Female 2:39 PM CDT Gender Identity Not on file Sexual Orientation Not on file documented as of this encounter Miscellaneous Notes * Cerner Conversion Note - Tg ProviderMD - 06/27/2021 12:24 PM CDT On Going Discharge Planning Entered On: 06/27/2021 12:33 EDT Performed On: 06/27/2021 12:24 EDT by Patsy Koehler V, Trolley Coach Driver Emergency Nurse Care Management Progress Note Discharge Arrangements : [...] Attend Multidisciplinary Rounds? : Yes Patsy Koehler V Trolley Coach Driver Emergency Nurse - 06/27/2021 12:24 EDT Narrative Progress Note Narrative Progress Note : LOS 19, ELOS-5 RSR-moderate DCP-Transfer to [facility] on Wednesday, Jun 28 via [facility] transport #[id number] at 5pm. CM notified MD/pt and her son, Shawn [phone]. RN to call report to: [phone] Fax DC summary to: [phone]. Call Lottie Rayosion with any issues [phone]. Historical Progress Note : LOS 18, ELOS-5 RSR-moderate Per MD, patient is ready for rehab placement. CM has sent out updates for SNF placement. CM spoke to Diana with the [facility] facilities as well as Perri with [facility] to see if any of their facilities can accept patient. CM called pt's son, Shawn [phone] and dtrHarley [phone] but noone answered to discuss pt's dc plan. DCP-transfer to SNF pending bed offer Patsy Koehler V Trolley Coach Driver Emergency Nurse - 06/26/21 14:22:07 LOS 17, ELOS-5 RSR-moderate Per MD, patient is eating well after CorPak removal few days ago. Hemoglobin is remained stable after stopping therapeutic Lovenox. She is medically stable for discharge to rehab. CM sent updated clinical and therapy notes to [facility] and SNF. Out of COVID isolation. DCP-Transfer to rehab/SNF pending bed offer. Patsy Koehler V Trolley Coach Driver Emergency Nurse - 06/25/21 16:53:06 LOS 17, ELOS-5 RSR-moderate Covid + Remains on isolation. [facility] has declined. [facility] is following but no bed offer. ID following, currently not treating. Per attending, corpak was dc'd and mentation has improved and off restraints. DCP: no current bed offers from referrals. [facility] was contacted via [employer] to request bed. DANIELLE PHIPPS, RN-Retention Specialist - 06/24/21 15:53:37 HD#15, ELOS-5 RSR-moderate, Boost-5 Per MD, patient [...] restraints or mittens now. CM to follow Patsy Koehler V Trolley Coach Driver [facility] - 06/23/21 12:29:00 HD#12, ELOS-5 RSR-moderate, Boost-5 COVID+. On room air per RN. 2L. Patient Still has mittens. Corpak for TF. ST evaluated and recommended pureed diet and TF. On IV zosyn. HGB at 8.9. Barriers to rehab placement: mittens and corpak and no PT/OT evaluations. CM has sent rehab referrals via [facility]. CM to follow. oes not speak or follow any other commands. Current on EEG monitor. She has been hemodynamically stable with Tmax 99.8. Currently tolerating TF via corpak. No output documented for patient. Patsy Koehler V Trolley Coach Driver [facility] - 06/20/21 11:50:46 HD#12, ELOS-5 RSR-moderate, Boost-5 [...] when medically ready for dc. Patsy Koehler V Trolley Coach Driver [facility] - 06/20/21 11:57:36 HD#12, ELOS-5 RSR-moderate, Boost-5 COVID+. On room air per RN. Not following many commands and doesn't speak. Left wrist restraints and right mitten to prevent pulling of corpak. Neurology following. Patient was on continuous EEG monitoring. On IV zosyn. HGB was 8.9. Barriers to rehab placement: mittens, restraints and corpak. and no PT/OT evaluations. CM has sent rehab referrals via [facility]. CM to follow. Patsy Koehler V Trolley Coach Driver Emergency Nurse - 06/20/21 11:54:35 HD#11, ELOS-5 RSR-moderate, Boost-5 COVID+. On 2L NC. Still has mittens. Corpak for TF. ST evaluated and recommended pureed diet and TF. On IV zosyn. HGB at 8.9. Barriers to rehab placement: mittens and corpak and no PT/OT evaluations. CM has sent rehab referrals via [facility]. CM to follow. Patsy Koehler V Trolley Coach Driver Emergency Nurse - 06/19/21 15:03:50 HD#10, ELOS-5 RSR-moderate, Boost-5 COVID+.Now on 4L NC. Patient awake, but remains confused and unable to converse appropriately per MD. Still in restraints. Patient passed her FEES. Diet advance to puree. Hopefully, her corpak will be discontinued soon. Brain MRI today. Still on IV abx. WBC and LDH trending down. CM sent updated clinical/therapy notes to [facility] and [facility] for possible rehab placement. CM to follow. Patsy Koehler V Trolley Coach Driver [facility] - 06/18/21 15:20:04 HD#9, ELOS-5 RSR-moderate, Boost-5 COVID+. On 6L HFNC. Ongoing confusion. Restraints continued. On IV rocephin, micafuntgin and dexamethazone. Tolerating TF via corpak. DCP-SNF/[facility] for rehab pending medical progress. Patsy Koehler V Trolley Coach Driver Emergency Nurse - 06/17/21 12:01:09 HD#8, ELOS-5 RSR-moderate, Boost-5 COVID+. On 5L HFNC. Ongoing confusion and attempting to pull at lines. In restraints. Leukocytosis worsening, LDH and d-dimer trending up, ferritin trending down. Tolerating TF via corpak. MD plans to get a neurology consult due to pt's confusion. CM to follow DCP-SNF for rehab pending medical progress. Patsy Koehler V Trolley Coach Driver [facility] - 06/16/21 13:18:40 HD#5, ELOS-5 RSR-moderate, Boost-[address] Narda Sommer, patient with further worsening of respiratory failure. Tachycardia. Patient is criticcally ill and may need intubation. CR chest today. KoehlerPatsy dempsey V Trolley Coach Driver [facility] - 06/13/21 09:26:38 HD#5, ELOS-5 RSR-moderate, Boost-[address] Narda Sommer, patient with further worsening of respiratory failure. Tachycardia. Patient is critically ill and may need intubation. CR chest today showed Slightly worsening bilateral opacities. Pulmonary edema is not excluded. Corpak placed. CM to follow. DCP-pending on patient's medical progress. Patsy Koehler V Trolley Coach Driver [facility] - 06/13/21 09:29:02 HD#4, ELOS-5 RSR-moderate, Boost-5 [...] SNF when medically ready. Patsy Koehler V Trolley Coach Driver [facility] - 06/12/21 12:12:00 HD#4, ELOS-5 RSR-moderate, Boost-5 Patient currently on optiflow FiO2 70%, with continued increased confusion and fidgeting in the bed. ID and Pulm consulted and are making med adjustments. Per RN, patient with tachycardia the other night. DCP-[facility]/SNF pending medical progress. Patient lives with her 98 yo father and adult son. Patsy Koehler V Trolley Coach Driver [facility] - 06/11/21 10:00:55 HD#4, ELOS-5 RSR-moderate, Boost-5 COVID+. Patient currently on optiflow FiO2 60%, with continued increased confusion and fidgeting in the bed. ID and Pulm consulted and are making med adjustments. Right small PE. On IV abx. Per RN, patient with tachycardia the other night. Now has mittens. Not eating or drinking per RN. DCP-[facility] pending medical progress. Patient lives with her 98 yo father and adult son. Patsy Koehler V Trolley Coach Driver Emergency Nurse - 06/11/21 12:10:01 HD#3, ELOS-not recorded, RSR-moderate, Boost-4 Per MD, patient is clinical deconditioning from NC to optiflow at 60% Fi02 with increased confusion. ID, Cardiology and Pulm consulted. HIGH RISK FOR INTUBATION. Patient had a abnormal ECHO with PE. On IV cefazolin and IV steroids. CM sent referrals to [facility] and [facility] due to being COVID+ for rehab. CM to follow. Patsy Koehler V Trolley Coach Driver Emergency Nurse - 06/10/21 10:25:43 HD#2, ELOS-not recorded, RSR-moderate, Boost-4 CM sent rehab referrals to [facility] and [facility] since they accept COVID+ patients. Currently patient is on 60% Fi02. PEr MD, patient's respiratory status is worsening. CM to follow pt's progress for dc planning. Patsy Koehler V Trolley Coach Driver Emergency Nurse - 06/09/21 16:10:00 Patsy Koehler V Trolley Coach Driver Emergency Nurse - 06/27/2021 12:24 EDT documented in this encounter Plan of Treatment Not on file documented as of this encounter Visit Diagnoses Not on filedocumented in this encounter
--- OUTSIDE RECORDS SUMMARY | 2025-03-08 13:18 | XMS_ITS | Encounter Summary ---
Author Organization [employer] ([place], [place], [place], [place]) Address [address] [place] [address] Care Team Providers Care Independent Film Maker Name Role Phone Unavailable Primary Care Provider Unavailabl e Encounter Details Date Type Department Care Team (Late st Contact Info) Description 07/24/2021 Transcribed Document [facility] [place] [address] [place] [address] ProviderTg MD [address] [place] [address] Social History Tobacco Use Types Packs/Day Years Used Date Smoking Tobacco: Never Assessed Comments Unknown Sex and Gender Information Value Date Recorded Sex Assigned at Not on file Legal Sex Female 2:39 PM CDT Gender Identity Not on file Sexual Orientation Not on file documented as of this encounter Miscellaneous Notes * Cerner Conversion Note - Tg ProviderMD - 07/24/2021 10:51 AM GREENSKEEPER HEAD Consult Phone Call Documentation Entered On: 07/24/2021 14:15 EST Performed On: 07/24/2021 10:51 EST by RACHEL GERBER, RN Phone Call for Consults Consult Phone Call/Page Attempt : First call Consult Reason : dr mendez notified RACHEL GERBER, RN - 07/24/2021 14:15 EST Electronically signed by Keven [facility] Conversion Pickling Solution Maker Seng at 12/18/2022 9:13 AM CDT documented in this encounter Plan of Treatment Not on file documented as of this encounter Visit Diagnoses Not on filedocumented in this encounter
--- OUTSIDE RECORDS SUMMARY | 2025-03-08 13:18 | XMS_ITS | Encounter Summary ---
Author Organization [employer] ([place], [place], [place], [place]) Address [address] [place] [address] Care Team Providers Care Geek Squad Agent Name Role Phone Unavailable Primary Care Provider Unavailabl e Encounter Details Date Type Department Care Team (Late st Contact Info) Description 07/24/2021 Transcribed Document [facility] [place] Family Medicine [address] [place] [address] ProviderTg MD [address] [place] [address] Social History Tobacco Use Types Packs/Day Years Used Date Smoking Tobacco: Never Assessed Comments Unknown Sex and Gender Information Value Date Recorded Sex Assigned at Not on file Legal Sex Female 2:39 PM CDT Gender Identity Not on file Sexual Orientation Not on file documented as of this encounter Miscellaneous Notes * Cerner Conversion Note - Tg ProviderMD - 07/24/2021 11:48 AM TSO Swallow Evaluation Entered On: 07/24/2021 11:54 EST Performed On: 07/24/2021 11:49 EST by GIRISH DAVIES, SENIOR FINANCIAL REPORTING ACCOUNTANT General Information Visit Type, SENIOR FINANCIAL REPORTING ACCOUNTANT : Initial evaluation Patient Orders : SENIOR FINANCIAL REPORTING ACCOUNTANT Bedside Swallow Evaluation -111 Start: 07/24/21 11:48:00 EST, Routine, For Swallow Eval and Treat - DIANN ORELLANA MD-INT Speech Language Pathology Additional Tx - Start: 07/24/21 11:48:00 EST, For Dysphagia, Continuous Order -111 Speech Language Pathology Evaluation and Treatment - Start: 07/24/21 11:00:00 EST, Routine, For Speech Language Cognitive Eval and Treat -111 DIANN ORELLANA MD-INT Admission Date : Admission Date/Time: 07/21/21 20:00:00 Medical Chart Reviewed, SENIOR FINANCIAL REPORTING ACCOUNTANT : Yes Personal Devices : Personal Devices No Devices Recorded Assistive Devices : Assistive Devices No Devices Recorded Active Diagnoses : 07/21/2021 12:00 Altered mental status 07/21/2021 12:00 [place] ingestion 07/21/2021 12:00 Toxic effect of other metals, accidental (unintentional), initial encounter Therapy Diagnosis, SENIOR FINANCIAL REPORTING ACCOUNTANT : Oral dysphagia patterns likely related to altered mentation. No overt pharyngeal patterns RECS 1. puree/thin diet 2. Strict reflux precautions 3. PO meds crushed or whole in pudding 4. St will f/u for diet advancement only if/when mentation has improved to baseline Previous Swallow Precautions : several recent bedsides, most recentl 05/2021 which recommended reg/thin Diet/Intake Prior to Current Admission : unsure, pt is unable to state Diet/Intake During Current Admission : NPO Intubation Comment, SENIOR FINANCIAL REPORTING ACCOUNTANT : n/a Vital Signs RTF : Vitals Temp BP Pulse RR SpO2 FIO2 Date Wt(kg) Wt(lb) 07/24 09:30 ---- 147/90 --- 18 --- --- 07/21 113.2 249 07/24 04:00 ---- ----- --- -- 98 --- 07/24 03:34 ---- 131/65 --- 18 97 --- 07/24 02:00 ---- ----- --- -- 98 --- 07/24 00:00 ---- ----- --- -- 97 --- 24 Hr Tmax: No Data Available 36 Hr Tmax: No Data Available Vital Signs are the last 5 in the past 48 hours. Weights display the last 5 within 7 days. Initial Wt: 07/21 113.2 kg 249 lb Respiratory Assessment Comment : room air GIRISH DAVIES, BLANCHE - 07/24/2021 11:49 EST General Status Patient Received Status, SENIOR FINANCIAL REPORTING ACCOUNTANT : Long sitting in bed Patient Left Status, SENIOR FINANCIAL REPORTING ACCOUNTANT : Long sitting in bed GIRISH DAVIES SLP - 07/24/2021 11:49 EST Pain Assessment Pain Score Pre-Intervention : 2 GIRISH DAVIES SLP - 07/24/2021 11:49 EST Image 1 - Images currently included in the form version of this document have not been included in the text rendition version of the form. Oral Mechanism Dysarthria : No Oral Mechanism for Daily Living : Could not complete assessment (Comment: pt unable to follow directions to assess in isolation [GIRISH DAVIES, SENIOR FINANCIAL REPORTING ACCOUNTANT - 07/24/2021 11:49 EST] ) GIRISH DAVIES, SENIOR FINANCIAL REPORTING ACCOUNTANT - 07/24/2021 11:49 EST Bedside Swallow Swallow Outcome BS Swallow : Impaired Head Control BS Swallow : Neutral head position Presentation Style BS Swallow : Clinician Swallow Position BS Swallow : Upright 90 degrees Trunk Control BS Swallow : Upright centered position Consistencies Trialed BS Swallow : Ice chips, Thin by cup, Pudding GIRISH DAVIES, SENIOR FINANCIAL REPORTING ACCOUNTANT - 07/24/2021 11:49 EST Swallow Impressions Impressions, BS Swallow : Signs/Symptoms of oral phase dysphagia Contributing Factors BS Swallow : Difficulty following directions Awareness/Strategies, Swallow : Limited to none Swallowing Outcome Measures : Functional Oral Intake Scale (FOIS) Functional Oral Intake Scale (FOIS) : Level V GIRISH DAVIES, BLANCHE - 07/24/2021 11:49 EST Bedside Swallow Overall Impressions : Per MD notes, pt is a 75 year old a [facility] resident with PMHx significant for non-Hodgkin lymphoma, major depressive disorder, hypertension, generalized anxiety disorder, bipolar disorder, on lithium, who was brought to [facility] for evaluation of altered mental status. MDs have determined that pt has likely lithium toxicity. ST is asked to see for dysphagia. Pt is seen at bedside for dysphagia eval. She is very confused and labile and unable to follow directions. At bedside, pt presents with oral dysphagia patterns which are likely related to mentation. She is unable to remove pudding trials from spoon and boluses are essentially scraped onto upper lip. Pt appears to have little to no awareness of material in oral cavity which certainly places her at higher risk for aspiration and choking. Given impaired awareness, solids were deferred. NO pharyngeal patterns with any tested consistency. Pt will likely need 1:1 assistance for meals, meds in pudding per RN - would likely benefit from crushing. ST will assess for diet upgrade when/if mentation returns to baseline. GIRISH DAVIES, BLANCHE - 07/24/2021 11:54 EST Swallow Recommendations Recommended Diet Type, SwRec : Pureed Recommended Liquid Diet, SwRec : Thin Feeding Presentation Style, SwRec : No restrictions Swallow Position, SwRec : Upright 90 degrees Supervision Level w/Meals, SwRec : Assist, maximal Recommended Med Present, SwRec : Crushed, Whole, With puree/pudding Recommended Exam, Sw Rec : Repeat Bedside Swallow Repeat Swallow Exam Timeframe : 3-6 days GIRISH DAVIES SLP - 07/24/2021 11:49 EST Therapy Indication Assessment SENIOR FINANCIAL REPORTING ACCOUNTANT Indicated : Yes SENIOR FINANCIAL REPORTING ACCOUNTANT Problem List : Impaired, Swallowing Potential Barriers to SENIOR FINANCIAL REPORTING ACCOUNTANT : Cognitive deficit GIRISH DAVIES SLP - 07/24/2021 11:49 EST Swallow Plan/Goals Treatment Frequency, SENIOR FINANCIAL REPORTING ACCOUNTANT : 1 time per wk Treatment Plan Est w/Pt/Caregvr, Swallow : Unable to discuss due to patient condition & no family available GIRISH DAVIES SLP - 07/24/2021 11:49 EST Swallow LTG Grid SENIOR FINANCIAL REPORTING ACCOUNTANT [place] [employer]her Goal #1 SENIOR FINANCIAL REPORTING ACCOUNTANT Usp Goal #2 Swallow LTG : Improve swallowing function for oral intake Other: Pt goal: Unable to state Status : Initial GIRISH DAVIES SLP - 07/24/2021 11:49 EST GIRISH DAVIES SLP - 07/24/2021 11:49 EST Swallow Goals Grid Goal #1 Swallow STG : Tolerate diet advancement (liquid or solids) Related To : Aspiration prevention Date to Meet : 07/29/2021 EST Status : Initial goal GIRISH DAVIES SLP - 07/24/2021 11:49 EST Education Education Comment : pt unable to participate in education GIRISH DAVIES SLP - 07/24/2021 11:[address] [facility] SENIOR FINANCIAL REPORTING ACCOUNTANT Charges Evaluation Swallowing Function : 1 GIRISH DAVIES SLP - 07/24/2021 11:49 EST Anticipated Discharge Needs, SENIOR FINANCIAL REPORTING ACCOUNTANT Anticipated Discharge to : Unit, [facility] Recommend Continued Therapy at Discharge : No GIRISH DAVIES SLP - 07/24/2021 11:49 EST documented in this encounter Plan of Treatment Not on file documented as of this encounter Visit Diagnoses Not on filedocumented in this encounter
--- OUTSIDE RECORDS SUMMARY | 2025-03-08 13:18 | XMS_ITS | Encounter Summary ---
Author Organization [employer] ([place], [place], [place], [place]) Address [address] [place] [address] Care Team Providers Care Dust Box Tender Name Role Phone Unavailable Primary Care Provider Unavailabl e Encounter Details Date Type Department Care Team (Late st Contact Info) Description 06/28/2021 Transcribed Document [facility] [place] Family Medicine [address] [place] [address] ProviderTg MD [address] [place] [address] Social History Tobacco Use Types [...] Tg ProviderMD - 06/28/2021 5:00 AM CDT Chart Check - Review Order Profile Entered On: 06/28/2021 4:39 EDT Performed On: 06/28/2021 5:00 EDT by Ran Chew RN-PATIENT CARE BEDSIDE NON-EXEMPT Chart Check Powerplans Initiated/Discontinued as Appropriate : Yes All Active Orders Reviewed : Yes Ran Chew RN-PATIENT CARE BEDSIDE NON-EXEMPT - 06/28/2021 4:39 EDT documented in this encounter Plan of Treatment Not on file documented as of this encounter Visit Diagnoses Not on filedocumented in this encounter
--- OUTSIDE RECORDS SUMMARY | 2025-03-08 13:18 | XMS_ITS | Encounter Summary ---
Author Organization [employer] ([place], [place], [place], [place]) Address [address] [place] [address] Care Team Providers Care Gis Database Administrator Name Role Phone Unavailable Primary Care Provider Unavailabl e Encounter Details Date Type Department Care Team (Late st Contact Info) Description 06/28/2021 Transcribed Document [facility] [place] Family Medicine [address] [place] [address] ProviderTg MD [address] [place] [address] Social History Tobacco Use Types Packs/Day Years Used Date Smoking Tobacco: Never Assessed Comments Unknown Sex and Gender Information Value Date Recorded Sex Assigned at Not on file Legal Sex Female 2:39 PM CDT Gender Identity Not on file Sexual Orientation Not on file documented as of this encounter Miscellaneous Notes * Cerner Conversion Note - Tg Jones MD - 06/28/2021 9:42 AM CDT Patient: SUDHA TIMMONS Age: 75 [...] 10mg daily prednisone and remains on atovaquone 06/28 afebrile, comfortable, knows that she is to be transferred to [place] ROS - not available - discussed with [...] Nausea aspirin: 81 mg, Feeding Tube, Daily glucagon: 1 mg, IntraMuscular, Q15Min, PRN: [...] Last Charted Minimum Maximum Temp 98.2 (JUN 28 04:00) 97.5 (JUN 27 11:00) 99.2 (JUN 27 14:00) Mon HR 97 (JUN 28 04:00) 89 (JUN 27 11:00) 108 (JUN 27 21:00) Resp Rate 18 (JUN 28 04:00) 16 (JUN 27 14:00) 18 (JUN 27 11:00) SBP 104 (JUN 28 04:00) 104 (JUN 28 04:00) 134 (JUN 27 14:00) DBP L 55 (JUN 28 04:00) L 54 (JUN 27 11:00) H 95 (JUN 27 14:00) MAP 66 (JUN 28 04:00) 66 (JUN 28 04:00) 97 (JUN 27 11:00) SpO2 94 (JUN 28 04:00) L 93 (JUN 27 14:00) 96 (JUN 27 21:00) General: no distress, On RA Eye: Normal conjunctiva. HENT: Normocephalic, Oral mucosa is moist. Neck: Supple, Non-tender. Respiratory: Lungs are clear to auscultation, Breath sounds are equal. Cardiovascular: Normal rate, Normal peripheral perfusion, Mild LE edema Gastrointestinal: Soft, Non-tender Musculoskeletal: No deformity. Integumentary: Warm, Dry. Neurologic: groggy, confused. Psychiatric: not Cooperative. Review / Management Results review: Labs (Last four charted values) WBC L 4.4 (JUN 28) 6.1 (JUN 27) 7.5 (JUN 26) 8.5 (JUN 25) HB L 7.8 (JUN 28) L 7.7 (JUN 27) L 8.3 (JUN 26) L 8.1 (JUN 25) HCT L 23.9 (JUN 28) L 24.1 (JUN 27) L 25.3 (JUN 26) L 25.0 (JUN 25) Plt L 107 (JUN 28) L 116 (JUN 27) L 131 (JUN 26) L 152 (JUN 25) Na 138 (JUN 28) L 135 (JUN 27) L 135 (JUN 26) 136 (JUN 25) K 4.1 (JUN 28) 4.5 (JUN 27) 4.5 (JUN 26) 4.9 (JUN 25) Cl 107 (JUN 28) 104 (JUN 27) 104 (JUN 26) 106 (JUN 25) CO2 25 (JUN 28) 23 (JUN 27) 21 (JUN 26) 21 (JUN 25) BUN 16 (JUN 28) 18 (JUN 27) 21 (JUN 26) 21 (JUN 25) Cr 0.70 (JUN 28) 0.70 (JUN 27) 0.80 (JUN 26) 0.80 (JUN 25) Glu R 77 (JUN 28) 87 (OCT ) 77 (OCT ) 80 (JUN 25) Ca L 8.1 (JUN 28) 8.6 (JUN 27) 8.4 (JUN 26) L 8.3 (JUN 25) Lactic 1.6 (JUN 17) 1.0 (JUN 07) [...] with CD4 214 -- Bipolar RECOMMENDATIONS -- stop atovaquone since planning to stop in 2 days anyway -- Off remdesivir and dexamethasone -- Actemra 8mg/kg x 1 06/09 -- Cd4 count - 214 -- strongyloides ab - negative She has not been given ivermectin -- Low threshold for covering for opportunistic pathogens in view of NHL history and CD4 214 -- Agree with stopping Zosyn --s/p minocycline -- continue atovaquone to 06/30 when her prednisone will be reduced documented in this encounter Plan of Treatment Not on file documented as of this encounter Visit Diagnoses Not on filedocumented in this encounter
--- OUTSIDE RECORDS SUMMARY | 2025-03-08 13:18 | XMS_ITS | Encounter Summary ---
Author Organization [employer] ([place], [place], [place], [place]) Address [address] [place] [address] Care Team Providers Care Mold Puller Name Role Phone Unavailable Primary Care Provider Unavailabl e Encounter Details Date Type Department Care Team (Late st Contact Info) Description 06/28/2021 Transcribed Document [facility] [place] [address] [place] [address] ProviderTg MD [address] [place] [address] Social History Tobacco Use Types [...] Jones MD - 06/28/2021 10:37 AM CDT Patient Education Materials Follows: Prednisone ?? Brand name: Deltasone? What is this medication used for? Inflammatory reactions and immune system suppression ?? Take with food or fluids. ?? DO NOT stop taking medication suddenly. Follow directions from your physician about tapering dose. ?? The medication may increase your appetite. ?? This medication may increase your blood glucose levels. Monitoring of blood glucose levels may be necessary. ?? Contact your physician before receiving vaccinations while taking this medication, as medication can lower your ability to fight infections. Side Effects: Insomnia Heartburn Nervousness/anxiety Abdominal distention Sweating/facial flushing Mood swings Increased appetite Increased susceptibility of infection Diarrhea or constipation Electronically signed by Keven [facility] Conversion Clinical Statistical Programmer Seng at 12/18/2022 9:16 AM CDT documented in this encounter Plan of Treatment Not on file documented as of this encounter Visit Diagnoses Not on filedocumented in this encounter
--- OUTSIDE RECORDS SUMMARY | 2025-03-08 13:18 | XMS_ITS | Encounter Summary ---
Author Organization [employer] ([place], [place], [place], [place]) Address [address] [place] [address] Care Team Providers Care Waist Cutter Name Role Phone Unavailable Primary Care Provider Unavailabl e Encounter Details Date Type Department Care Team (Late st Contact Info) Description 06/21/[address] [facility] [place] Family Medicine [address] [place] [address] ProviderTg MD [address] [place] [address] Social History Tobacco Use Types [...] Tg ProviderMD - 06/21/2021 5:00 AM CDT Height and Weight, Routine Entered On: 06/21/2021 7:25 EDT Performed On: 06/21/2021 5:00 EDT by Ran Chew RN-PATIENT CARE BEDSIDE NON-EXEMPT Height and Weight, Routine Routine Weight Source : Bed scale Routine Weight Entry Format : Metric Routine Weight, Kilograms : 113 kg(Converted to: 249 lb 2 oz) Routine Weight, Grams Pediatric : 400 Gram Routine Weight Calculation : 113.4 kg Height Source : Stated Height Entry Format : [place] Height, Feet : 5 ft Height, Inches : 2 Inch Clinical Height : 157.48 cm Body Surface Area (BSA), Routine : 2.1 m2 Body Mass Index (BMI), Routine : 45.73 kg/m2 Ran Chew RN-PATIENT CARE BEDSIDE NON-EXEMPT - 06/21/2021 7:25 EDT documented in this encounter Plan of Treatment Not on file documented as of this encounter Visit Diagnoses Not on filedocumented in this encounter
--- OUTSIDE RECORDS SUMMARY | 2025-03-08 13:19 | XMS_ITS | Encounter Summary ---
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 Name Role Phone Unavailable Primary Care Provider Unavailabl e Encounter Details Date Type Department Care Team (Late st Contact Info) Description 08/12/2021 Transcribed Document [facility] [place] [facility] [address] [place] [address] ProviderTg MD [address] [place] [address] Social History Tobacco Use Types Packs/Day Years Used Date Smoking Tobacco: Never Assessed Comments Unknown Sex and Gender Information Value Date Recorded Sex Assigned at Not on file Legal Sex Female 2:39 PM CDT Gender Identity Not on file Sexual Orientation Not on file documented as of this encounter Miscellaneous Notes * Cerner Conversion Note - Tg Jones MD - 08/12/2021 9:38 PM 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 If you had special tests, such as EKG???s or X-rays, the interpretation of your tests given to you by the Emergency Department Physician is a preliminary report. Some fractures and illnesses fail to show up on preliminary tests. These will be reviewed again and we will call you if there are any new suggestions. If your symptoms continue notify your physician. After you leave, you should follow the instructions provided. What to do next Follow-Up Appointments Follow Up with Follow-up with counselor within the next week for reevaluation and further discussion of your depression. When Within 1 week Follow Up with Follow up with primary care provider When Within 2 to 3 days Comments Follow-up with your primary care provider in 2-3 days for reevaluation. Return to the emergency department for any acute worsening of symptoms or acute new concerns. Allergies Anaprox (Rash) Latex (Itching) codeine naproxen Immunizations This Visit No Immunizations Found Medications What How Much When Instructions Next Dose aspirin (Aspirin Low Dose 81 mg oral delayed release tablet) 1 Tablet(s) Oral Every Day atorvastatin (atorvastatin 40 mg oral tablet) 1 Tablet(s) Oral At Bedtime bisacodyl (bisacodyl 10 mg rectal suppository) 1 Suppository(ies) Rectal Every Day as needed for for constipation carvedilol (Coreg 3.125 mg oral tablet) 1 Tablet(s) Oral Two Times A Day cyanocobalamin (Vitamin B12 1000 mcg oral tablet) 1 Tablet(s) Oral Every Day divalproex sodium (Depakote 250 mg oral delayed release tablet) 1 Tablet(s) Oral Two Times A Day docusate (Colace 100 mg oral capsule) 1 Capsule(s) Oral Two Times A Day as needed for for constipation furosemide (furosemide 20 mg oral tablet) 1 Tablet(s) Oral Every Other Day takes on even days lisinopril (lisinopril 2.5 mg oral tablet) 1 Tablet(s) Oral Every Day multivitamin (Multiple Vitamins oral tablet) 1 Tablet(s) Oral Every Day pantoprazole (pantoprazole 40 mg oral delayed release tablet) 1 Tablet(s) Oral Every Day polyethylene glycol 3350 (polyethylene glycol 3350 oral powder for reconstitution) 17 Gram(s) Oral Every Day QUEtiapine (QUEtiapine 300 mg oral tablet) 1 Tablet(s) Oral At Bedtime The home medications listed are only as accurate as the information you provided. Please continue taking all of your medications prescribed by your Primary Care Provider unless specifically told to change or discontinue the medication. Please direct any questions regarding your home medications to your Primary Care Provider. Take your medications faithfully. Do NOT skip medication. Do NOT stop taking medications without the direction of a physician. Carry a list of your medications with you at all times, and take this medication list with you to your first follow up visit. Report any side effects. Avoid herbal remedies unless discussed with your physician. As part of your treatment plan, your physician may have prescribed a limited course of a controlled substance. This medication may be given to help people with moderate or severe pain or for other medical conditions, but there are risks involved with treatment. Common side effects may include nausea, constipation, drowsiness, sweating, itching, dry mouth, and rash. More serious side effects may include cognitive and motor impairment, like problems with thinking, concentrating, alertness, and movement (e.g. slowed reflexes), and driving and operating heavy machinery can be dangerous. It is important for you to talk to your physician if you have these side effects or questions. These controlled substances can produce physical dependence and be habit-forming if taken for an extended period of time, which means that the body has gotten used to them and may experience withdrawal symptoms if they are abruptly stopped. Withdrawal symptoms can include runny nose, sweating, goose bumps, diarrhea, abdominal cramping, rapid heartbeat, difficulty sleeping, and nervousness. Please dispose of unused and medications per pharmacy guidance. Test Results Laboratory or Other Results This Visit (last charted value for your 08/12/2021 visit) Hematology 08/12/2021 8:01 PM WBC: 5.7 K/uL -- Normal range between ( 4.5 and 10.5 ) RBC: 2.22 Million/uL -- Normal range between ( 3.93 and 5.22 ) Hct: 24.1 % -- Normal range between ( 34.1 and 44.9 ) Hgb: 7.7 g/dL -- Normal range between ( 11.2 and 15.7 ) Platelet Count: 412 K/uL -- Normal range between ( 163 and 369 ) MCH: 34.7 pg -- Normal range between ( 25.6 and 32.2 ) MCHC: 32.0 Gram/dL -- Normal range between ( 32.2 and 36.5 ) MCV: 108.6 fL -- Normal range between ( 79.0 and 94.8 ) RDW: 17.9 % -- Normal range between ( 11.7 and 14.9 ) MPV: 8.9 fL -- Normal range between ( 9.4 and 12.4 ) Urinalysis 08/12/2021 8:01 PM Urine Nitrite: Negative Urine Leukocyte Esterase: Negative Urine Appearance: Cloudy Urine Glucose Dipstick: Negative Urine Blood Dipstick: Negative Urine Urobilinogen Dipstick: 0.2 EU/dL Urine Protein Dipstick: Trace Ur Bacteria: Trace Urine Color: Yellow Ur WBC: 0-2 /HPF Urine Ketones Dipstick: Negative Ur Mucous: 2+ Urine pH Dipstick: 6.0 -- Normal range between ( 6.0 and 8.0 ) Ur Hyaline Casts: 2-5 /LPF Urine Bilirubin Dipstick: Negative Urine Specific [place]: 1.012 -- Normal range between ( 1.005 and 1.030 ) Urine Type.: U CleanCatch Urine Culture if Indicated: Not Indicated General Chemistry 08/12/2021 8:01 PM Creatinine Level: 0.70 mg/dL -- Normal range between ( 0.55 and 1.02 ) Sodium Level: 140 mmol/L -- Normal range between ( 136 and 146 ) Potassium Level: 4.0 mmol/L -- Normal range between ( 3.5 and 5.1 ) Chloride Level: 107 mmol/L -- Normal range between ( 102 and 112 ) Carbon Dioxide Level: 27 mmol/L -- Normal range between ( 21 and 32 ) Anion Gap: 10 -- Normal range between ( 9 and 20 ) Bun/Creatinine: 5.7 -- Normal range between ( 8.0 and 20.0 ) Calcium Level: 8.6 mg/dL -- Normal range between ( 8.4 and 10.1 ) eGFR : >60 mL/min/1.73m2 eGFR NonAfrican: >60 mL/min/1.73m2 Glucose Level: 114 mg/dL -- Normal range between ( 74 and 106 ) Blood Urea Nitrogen: 4 mg/dL -- Normal range between ( 7 and 22 ) Education [employer] Major Depressive Disorder, Adult Major depressive disorder (MDD) is a mental health condition. It may also be called clinical depression or unipolar depression. MDD causes symptoms of sadness, hopelessness, and loss of interest in things. These symptoms last most of the day, almost every day, for 2 weeks. MDD can also cause physical symptoms. It can interfere with relationships and with everyday activities, such as work, school, and activities that are usually pleasant. MDD may be mild, moderate, or severe. It may be single-episode MDD, which happens once, or recurrent MDD, which may occur multiple times. What are the causes? The exact cause of this condition is not known. MDD is most likely caused by a combination of things, which may include: ??? Your personality traits. ??? [place] or conditioned behaviors or thoughts or feelings that reinforce negativity. ??? Any alcohol or substance misuse. ??? Long-term (chronic) physical or mental health illness. ??? Going through a traumatic experience or major life changes. What increases the risk? The following factors may make someone more likely to develop MDD: ??? A family history of depression. ??? Being a woman. ??? Troubled family relationships. ??? Abnormally low levels of certain brain chemicals. ??? Traumatic or painful events in childhood, especially abuse or loss of a parent. ??? A lot of stress from life experiences, such as poor living conditions or discrimination. ??? Chronic physical illness or other mental health disorders. What are the signs or symptoms? The main symptoms of MDD usually include: ??? Constant depressed or irritable mood. ??? A loss of interest in things and activities. Other symptoms include: ??? Sleeping or eating too much or too little. ??? Unexplained weight gain or weight loss. ??? Tiredness or low energy. ??? Being agitated, restless, or weak. ??? Feeling hopeless, worthless, or guilty. ??? Trouble thinking clearly or making decisions. ??? Thoughts of suicide or thoughts of harming others. ??? Isolating oneself or avoiding other people or activities. ??? Trouble completing tasks, work, or any normal obligations. Severe symptoms of this condition may include: ??? Psychotic depression.This may include false beliefs, or delusions. It may also include seeing, hearing, tasting, smelling, or feeling things that are not real (hallucinations). ??? Chronic depression or persistent depressive disorder. This is low-level depression that lasts for at least 2 years. ??? Melancholic depression, or feeling extremely sad and hopeless. ??? Catatonic depression, which includes trouble speaking and trouble moving. How is this diagnosed? This condition may be diagnosed based on: ??? Your symptoms. ??? Your medical and mental health history. You may be asked questions about your lifestyle, including any drug and alcohol use. ??? A physical exam. ??? Blood tests to rule out other conditions. MDD is confirmed if you have the following symptoms most of the day, nearly every day, in a 2-week period: ??? Either a depressed mood or loss of interest. ??? At least four other MDD symptoms. How is this treated? This condition is usually treated by mental health professionals, such as psychologists, psychiatrists, and clinical social workers. You may need more than one type of treatment. Treatment may include: ??? Psychotherapy, also called talk therapy or counseling. Types of psychotherapy include: ? Cognitive behavioral therapy (CBT). This teaches you to recognize unhealthy feelings, thoughts, and behaviors, and replace them with positive thoughts and actions. ? Interpersonal therapy (IPT). This helps you to improve the way you communicate with others or relate to them. ? Family therapy. This treatment includes members of your family. ??? Medicines to treat anxiety and depression. These medicines help to balance the brain chemicals that affect your emotions. ??? Lifestyle changes. You may be asked to: ? Limit alcohol use and avoid drug use. ? Get regular exercise. ? Get plenty of sleep. ? Make healthy eating choices. ? Spend more time outdoors. ??? Brain stimulation. This may be done if symptoms are very severe and other treatments have not worked. Examples of this treatment are electroconvulsive therapy and transcranial magnetic stimulation. Follow these instructions at home: Activity ??? Exercise regularly and spend time outdoors. ??? Find activities that you enjoy doing, and make time to do them. ??? Find healthy ways to manage stress, such as: ? Meditation or deep breathing. ? Spending time in nature. ? Journaling. ??? Return to your normal activities as told by your health care provider. Ask your health care provider what activities are safe for you. Alcohol and drug use ??? If you drink alcohol: ? Limit how much you use to: ? 0???1 drink a day for women who are not . ? 0???2 drinks a day for men. ? Be aware of how much alcohol is in your drink. In the [place] one drink equals one 12 oz bottle of beer (355 mL), one 5 oz glass of wine (148 mL), or one 1?? oz glass of hard liquor (44 mL). ? Discuss your alcohol use with your health care provider. Alcohol can affect any antidepressant medicines you are taking. ??? Discuss any drug use with your health care provider. General instructions ??? Take [id number] and prescription medicines only as told by your health care provider. ??? Eat a healthy diet and get plenty of sleep. ??? Consider joining a support group. Your health care provider may be able to recommend one. ??? Keep all follow-up visits as told by your health care provider. This is important. Where to find more information ??? National [place] on Mental Illness: www.michael.org ??? [place] National [place] of Mental Health: www.nimh.nih.gov Contact a health care provider if: ??? Your symptoms get worse. ??? You develop new symptoms. Get help right away if: ??? You self-harm. ??? You have serious thoughts about hurting yourself or others. ??? You hallucinate. If you ever feel like you may hurt yourself or others, or have thoughts about taking your own life, get help right away. Go to your nearest emergency department or: ??? Call your local emergency services (911 in the [place] ??? Call a suicide crisis helpline, such as the National Suicide Prevention Lifeline at . This is open 24 hours a day in the [place] ??? Text the Crisis Text Line at 615358 (in the [place] Summary ??? Major depressive disorder (MDD) is a mental health condition. MDD causes symptoms of sadness, hopelessness, and loss of interest in things. These symptoms last most of the day, almost every day, for 2 weeks. ??? The symptoms of MDD can interfere with relationships and with everyday activities. ??? Treatments and support are available for people who develop MDD. You may need more than one type of treatment. ??? Get help right away if you have serious thoughts about hurting yourself or others. This information is not intended to replace advice given to you by your health care provider. Make sure you discuss any questions you have with your health care provider. Document Revised: 07/27/2020 Document Reviewed: 07/27/2020 [employer] Patient Education ?? 2020 [employer] Emergency Awareness and Preventative Care STROKE is an EMERGENCY Every Minute Counts Act FAST and Check for these signs: FACE Does the face look uneven? ARM Does one arm drift down? SPEECH Does their speech sound strange? TIME Call at any sign of stroke Stroke Risk Factors Atrial Fibrillation (irregular heartbeat) Diabetes Family history of stroke Heart Disease Heavy alcohol use High Blood Pressure High Cholesterol Physical inactivity and obesity Smoking Cigarette Smoking The facts are clear, cigarette smoking will shorten your life. Smoking can cause many illnesses along the way. As a healthcare provider, we recommend that you stop smoking. Assistance with quitting is available by contacting 8-206-PTUXNOW. This is a free resource providing counseling, support, and referral. Or you may contact your personal physician. [employer] Suicide Prevention Lifeline: The National Suicide Prevention Lifeline is a national network of local crisis centers that provides free and confidential emotional support to people in suicidal crisis or emotional distress 24 hours a day, 7 days a week. Don't Wait! Stop a Heart Attack Before it Starts What is a heart attack? A heart attack is damage or to a part of the heart from severely decreased or lack of blood flow to the heart. Over time, arteries can become narrow from the buildup of fat and cholesterol, which is called plaque. The plaque can rupture causing a blood clot to form. When the blood clot forms, the artery can become severely narrowed or completely blocked, causing a heart attack. Heart attack is the leading cause of in the [place]. 85% of muscle damage occurs within the first 2 hours. Delay in the recognition of heart attack symptoms increases the chances of . Know the early symptoms of a heart attack: Nausea Feeling of fullness in chest Jaw Pain Pain that travels down one or both arms Fatigue/being tired Anxiety Back Pain Chest pressure, squeezing, or discomfort Shortness of breath Sweating, or a cold sweat Feeling of impending doom There are unusual signs of a heart attack, too! Women, the elderly, and diabetics may present with atypical symptoms: Fainting/dizziness Weakness Confusion Risk Factors for a Heart Attack Some heart disease risk factors, such as age and family history, cannot be changed. Others, like smoking and lack of exercise, can be changed. Smoking High Cholesterol High Blood Pressure Family History Obesity Age Gender (Males are at higher risk) Lack of Exercise Diabetes Diet Stress Excessive Alcohol Intake If you or someone you know is experiencing the signs and symptoms of a heart attack, DON???T DELAY. Call immediately and seek help. If someone collapses, perform CPR! Do not attempt to drive if you are having symptoms of heart attack. Hands-Only CPR Why Hands-Only CPR? Hands-Only CPR has been shown to be as effective as conventional CPR for cardiac arrests that occur outside of a hospital. Survival depends on immediately receiving CPR from someone nearby. How do you perform Hands-Only CPR? There are two easy steps: Call if you see a teen or adult collapse Push hard and fast in the center of the chest at a beat of 100 beats per minute. Save a life! 4 WAYS TO GET AHEAD OF SEPSIS SEPSIS is a MEDICAL EMERGENCY. Time matters! Infections put you and your family at risk for a life-threatening condition called sepsis. Sepsis is the body's extreme response to an infection. It is life-threatening, and without timely treatment, sepsis can rapidly lead to tissue damage, organ failure, and . Sepsis happens when an infection you already have-in your skin, lungs, urinary tract or somewhere else-triggers a chain reaction throughout your body. 1 PREVENT INFECTIONS Take good care of chronic conditions. Talk to your doctor about getting the recommended vaccines. 2 PRACTICE GOOD HYGIENE Wash your hands frequently. Keep cuts or open sores clean and covered until they are healed. 3 KNOW THE SYMPTOMS Confusion or disorientation Shortness of breath High heart rate Fever, shivering, or feeling very cold Extreme pain or discomfort Clammy or sweaty skin 4 ACT FAST Get medical care IMMEDIATELY if you suspect sepsis or if you have an infection that is not getting better or is getting worse. To learn more about sepsis and how to prevent infections, visit www.cdc.gov/sepsis. The examination and treatment you have received in the Emergency Department has been done to provide an appropriate evaluation and stabilizing treatment on an emergency basis only. Given the limited resources, it is not meant to be a substitute for complete medical care. The follow-up doctor you named will receive a copy of your records and all test reports. IT IS IMPORTANT THAT YOU SCHEDULE A FOLLOW-UP APPOINTMENT AND ARE RE-EVALUATED. You should report any new complaints, symptoms, or remaining problems at that time. IT IS IMPOSSIBLE FOR THE EMERGENCY DEPARTMENT TO RECOGNIZE AND TREAT ALL ELEMENTS OF INJURY OR ILLNESS IN A SINGLE VISIT. If you have been referred to a specialist physician, it means that we believe you may have a condition that requires the expertise of a specialist. These physicians work in partnership with the hospital and have agreed to see referred patients in their office for further evaluation. KEEP IN MIND THAT THE SPECIALIST HAS HIS/HER OWN OFFICE POLICIES WHICH MAY REQUIRE PROPER INSURANCE OR PAYMENT UP FRONT BEFORE THE SPECIALIST WILL SEE YOU. It is your responsibility to call the specialist physician to make an appointment. We do not have the ability to refer patients to specialists/physicians that work with specific insurance companies. Please be advised that all financial charges or billing practices are determined by that practice, not the hospital. If your insurance company requires that you see a specialist from their approved list, it is your responsibility to contact your insurance company to make those arrangements. It is also your responsibility to follow any other requirements of your insurance company necessary to obtain coverage for claims submitted. We will bill your insurance; however, you are responsible today for any co-pay amounts. You will receive a separate bill for any services you may have received including: emergency, radiology, or pathology physicians. Patient Name:SUDHA TIMMONS I have received this information and was given the opportunity to ask questions. Patient/Uniform Attendant Name: Patient/Uniform Attendant Signature: Relationship to Patient: Clinician/Hospital Uniform Attendant Signature: Please Provide a Telephone Number Where You Can Be Reached: Is it Permissible To Leave a Message? Date: documented in this encounter Plan of Treatment Not on file documented as of this encounter Visit Diagnoses Not on filedocumented in this encounter
--- OUTSIDE RECORDS SUMMARY | 2025-03-08 13:19 | XMS_ITS | Clinical Summary ---
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
--- OUTSIDE RECORDS SUMMARY | 2025-03-08 13:19 | XMS_ITS | Encounter Summary ---
Author Organization [employer] ([place], [place], [place], [place]) Address [address] [place] [address] Care Team Providers Care Electronic Scale Tester Name Role Phone Unavailable Primary Care Provider Unavailabl e Encounter Details Date Type Department Care Team (Late st Contact Info) Description 06/20/2021 Transcribed Document [facility] [place] [facility] [address] [place] [address] ProviderTg MD [address] [place] [address] Social History Tobacco Use Types Packs/Day Years Used Date Smoking Tobacco: Never Assessed Comments Unknown Sex and Gender Information Value Date Recorded Sex Assigned at Not on file Legal Sex Female 2:39 PM CDT Gender Identity Not on file Sexual Orientation Not on file documented as of this encounter Miscellaneous Notes * Cerner Conversion Note - Tg ProviderMD - 06/20/2021 3:00 AM CDT Nutrition Assessment Entered On: 06/20/2021 14:36 EDT Performed On: 06/20/2021 17:07 EDT by JACQUELYN CHERY, RD, LD Nutrition Assessment Current Nutrition Regimen Comment : 06/20: TF f/u. 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 Pt continues on TF. 06/17: Spoke with pt, reports pt toelrating TF well, no appropriate for po diet, has not brought any trays into pt room. Pt not able to follow commands and makes no attempts to swallow water or medications. Spoek with RN about cancelling diet, reassessing if pt's mental status improves. Dx: Sepsis d/t UTI and COVID+ PNA, acute resp failure, transaminitis, hypertensive urgency, A/C metabolic encephalopathy, NSTEMI PMH: Non-hodgkins lymphoma, dementia, HTN, depression, bipolar, osteoarthritis Labs: K 5.1, Gluc 152 (06/19) Alb 2.1, FSB, 138, 122 Meds: lactobacillus, steroid, pepcid, SSI, abx, B12, miralax, colace Skin: excoriation of buttocks, anasarca LBM: + (06/16), corpak D2 Diet: Regular + Ensure TID PO Intake: 0-15% meals TF: Jevity 1.5 @ 50 ml/hr Ht: 5'2 Admit wt: 250#, no new wt (06/13), 248# (06/17)249# (06/17) IBW: 110#/227% IBW BMI: 45.8 Adj wt: 145#/66 kg Estimated needs: 4255-1132 kcals (MSJX1.2-500) and 73+ grams protein (1.1 grams/kg/adjwt) JACQUELYN CHERY RD, ADRIENNE - 06/20/2021 17:02 EDT Nutrition Assessment Reason : Follow Up, Nutrition support JACQUELYN CHERY RD, ADRIENNE - 06/20/2021 14:36 EDT Nutrition Diagnoses Oral or Nutrition Support Intake : Inadequate oral intake Oral or Nutr Support Intake Related To : AMS Oral or Nutr Support Intake Evidenced by : 0-15% meals; need for TF Oral or Nutrition Support Intake Status : Active JACQUELYN CHERY RD, ADRIENNE - 06/20/2021 17:02 EDT Nutrition Interventions Meals and Snacks : General/Healthful diet Enteral/Parenteral Nutrition : Continue current enteral nutrition regimen Nutrition Supplement Therapy : Commercial beverage JACQUELYN CHERY RD, ADRIENNE - 06/20/2021 17:02 EDT Monitoring/Evaluation Energy Intake : Total energy intake Food Intake : Amount of food Enteral Nutrition Intake : Formula/Solution, Tube Feeding Tolerance Protein Intake : Total protein Weight Status : Weight Maintanence Gastrointestinal Function : Bowel Function JACQUELYN CHERY RD, ADRIENNE - 06/20/2021 17:02 EDT Nutrition Recommendations Dietitian Recommendations : 1. 2. Encourage po intake. RD to continue Ensure TID. Goal: >50 % meals/ONS 2. Continue Jevity 1.5 @ 50 ml/hr (provides 1650 kcals and 70 grams protein). FW per MD. If po intake begins to improve could change TF to nocturnal X 12 hours 6p-6a (provides 825 kcals and 35 grams protein). Goal: Meet est needs 3. Monitor elytes and replace prn Goal: wnls 4. Monitor wt 1-2x weekly Goal: avoid significant unintended wt loss Nutrition risk: high JACQUELYN CHERY, RD, LD - 06/20/2021 17:02 EDT documented in this encounter Plan of Treatment Not on file documented as of this encounter Visit Diagnoses Not on filedocumented in this encounter
--- OUTSIDE RECORDS SUMMARY | 2025-03-08 13:19 | XMS_ITS | Encounter Summary ---
Author Organization [employer] ([place], [place], [place], [place]) Address [address] [place] [address] Care Team Providers Care Professor Of Early Childhood Education Name Role Phone Unavailable Primary Care Provider Unavailabl e Encounter Details Date Type Department Care Team (Late st Contact Info) Description 06/19/2021 Transcribed Document [facility] [place] [facility] [address] [place] [address] ProviderTg MD [address] [place] [address] Social History Tobacco Use Types Packs/Day Years Used Date Smoking Tobacco: Never Assessed Comments Unknown Sex and Gender Information Value Date Recorded Sex Assigned at Not on file Legal Sex Female 2:39 PM CDT Gender Identity Not on file Sexual Orientation Not on file documented as of this encounter Miscellaneous Notes * Cerner Conversion Note - Tg ProviderMD - 06/19/2021 5:00 AM CDT Chart Check - Review Order Profile Entered On: 06/19/2021 16:39 EDT Performed On: 06/19/2021 16:39 EDT by Radha Nunez RN-PATIENT CARE BEDSIDE NON-EXEMPT Chart Check Powerplans Initiated/Discontinued as Appropriate : Yes All Active Orders Reviewed : Yes Radha Nunez RN-PATIENT CARE BEDSIDE NON-EXEMPT - 06/19/2021 16:39 EDT documented in this encounter Plan of Treatment Not on file documented as of this encounter Visit Diagnoses Not on filedocumented in this encounter
--- OUTSIDE RECORDS SUMMARY | 2025-03-08 13:19 | XMS_ITS | Encounter Summary ---
Author Organization [employer] ([place], [place], [place], [place]) Address [address] [place] [address] Care Team Providers Care Managing Jeweler Name Role Phone Unavailable Primary Care Provider Unavailabl e Encounter Details Date Type Department Care Team (Late st Contact Info) Description 07/24/2021 Transcribed Document [facility] Radiology [address] [place] [address] Bandar Orellana MD [address] [place], [place] [id number] Social History Tobacco Use Types Packs/Day Years Used Date Smoking Tobacco: Never Assessed Comments Unknown Sex and Gender Information Value Date Recorded Sex Assigned at Not on file Legal Sex Female 2:39 PM CDT Gender Identity Not on file Sexual Orientation Not on file documented as of this encounter Miscellaneous Notes * Cerner Conversion Note - Bandar Orellana MD - 07/24/2021 8:31 AM EST Patient: SUDHA TIMMONS Age: 75 [...] me. Called phone number of Shawn Timmons [phone] and voicemail had not been set up and they did not answer the phone. Review of Systems Constitutional: Weakness, Decreased activity, [...] Medical Hip pain, right / SNOMED CT 0016025621 / Confirmed At risk for sleep apnea / IMO 38461909 / Confirmed At risk for violence / IMO 04661772 / Confirmed Concussion / SNOMED CT 5620228089 / Confirmed concussion with loss of memory+ Disease caused by 2019 novel coronavirus / SNOMED CT 2210327206 / Confirmed Problem added by a rule: [id number]. Fall / SNOMED CT 2196629 / Confirmed HTN (hypertension) / SNOMED CT 1344068390 / Confirmed Depression / SNOMED CT 2696449892 / Confirmed Numbness and tingling / SNOMED CT 8774955666 / Confirmed numbness and tingling right thigh area to toes Osteoarthritis / SNOMED CT 0340695558 / Confirmed Pain / SNOMED CT 86024919 / Confirmed right buttocks pain Leg pain, right / SNOMED CT 040830669 / Confirmed sleep apnea / SNOMED CT 460359770 / Confirmed Insomnia / SNOMED CT 535581375 / Confirmed Tremor / SNOMED CT 52795567 / Confirmed, Active Problems (17) At risk [...] 2 mg, IV Push, Q5Min, PRN: Seizures Dextrose 5% with 0.45% NaCl intravenous solution [...] Phenergan: 6.25 mg, IntraVENous, Q6H, PRN: Nausea Rocephin: 2 Gram, 100 mL/Hr, IV Piggyback, [id number] Tylenol: 650 mg, Oral, Q4H, PRN: Fever Tylenol: 650 mg, Oral, Q4H, PRN: Pain (Mild 1-3) Zofran: 4 mg, IV Push, Q4H, PRN: Nausea glucagon: 1 mg, IntraMuscular, Q15Min, PRN: Other (See Comment) glucose 4 g oral tablet, chewable: 16 Gram, 4 Tab, Chew, Q15Min, PRN: Other (See Comment) glucose 40% oral gel: 15 Gram, 37.5 mL, Oral, Q15Min, PRN: Other (See Comment) melatonin: 5 mg, Oral, At Bedtime, PRN: Insomnia Documented Medications Documented Aspirin Low Dose 81 [...] Tab, Oral, Daily, 30 Tab, 0 Refill(s) Hilham 5 mg-325 mg oral tablet: 1 Tab, [...] Vitamins oral tablet 1 Tab, Oral, Daily Hilham 5 mg-325 mg oral tablet 1 Tab, [...] Units = 1 Cap, Oral , Medications (21) Active Scheduled: (3) #NaCl 0.9% *FLUSH* inj 10 mL 10 mL, IV Push, Q12H cefTRIAXone 2 Gram, IV Piggyback, B30PKly famotidine 20 mg tab 20 mg 1 Tab, Oral, Q12H Continuous: (1) D5w/NaCl 0.45% 1,000 mL 1,000 mL, IntraVENous, 125 mL/Hr PRN: (17) #NaCl 0.9% *FLUSH* inj 10 mL 10 mL, IV Push, See Comment acetaminophen 325 mg tab 650 mg 2 Tab, Oral, Q4H acetaminophen 325 mg tab 650 mg 2 Tab, Oral, Q4H albuterol-ipratropium inh 3 mL 3 mL, Nebulized Inhalation, RT_Q4H bisacodyl EC 5 mg tab 5 mg 1 Tab, Oral, Daily dextrose 50% 25 g/50 mL inj syr [...] hrs) Last Charted Minimum Maximum Temp 99.7 (JUL 24 09:30) 98.5 (JUL 23 21:58) 99.6 (JUL 24 03:34) Mon HR 112 (JUL 24 09:30) 100 (JUL 23 21:58) 116 (JUL 24 03:34) Resp Rate 18 (JUL 24 09:30) 18 (JUL 24 03:34) 18 (JUL 24 03:34) SBP H 147 (JUL 24 09:30) 120 (JUL 23 14:45) H 159 (JUL 23 21:58) DBP 90 (JUL 24 09:30) 65 (JUL 24 03:34) H 96 (JUL 23 21:58) MAP 104 (JUL 24 09:30) 79 (JUL 24 03:34) 110 (JUL 23 21:58) SpO2 98 (JUL 24 04:00) 97 (JUL 23 23:00) 100 (JUL 23 14:45) Physical Examination VS/Measurements Vitals Signs (last 24 hrs) Last Charted Minimum Maximum Temp 99.7 (JUL 24 09:30) 98.5 (JUL 23:58) 99.6 (JUL 24 03:34) Mon HR 112 (JUL 24 09:30) 100 (JUL 23 21:58) 116 (JUL 24 03:34) Resp Rate 18 (JUL 24 09:30) 18 (JUL 24 03:34) 18 (JUL 24 03:34) SBP H 147 (JUL 24 09:30) 120 (JUL 23 14:45) H 159 (JUL 23 21:58) DBP 90 (JUL 24 09:30) 65 (JUL 24 03:34) H 96 (JUL 23 21:58) MAP 104 (JUL 24 09:30) 79 (JUL 24 03:34) 110 (JUL 23 21:58) SpO2 98 (JUL 24 04:00) 97 (JUL 23 23:00) 100 (JUL 23 14:45) General: Mild distress, Elderly., Agitated able to [...] review: Labs (Last four charted values) WBC 7.8 (JUL 24) 8.7 (JUL 23) 6.6 (JUL 22) 9.0 (JUL 21) HB L 8.7 (JUL 24) L 8.5 (JUL 23) L 7.9 (JUL 22) L 9.3 (JUL 21) HCT L 26.4 (JUL 24) L 27.1 (JUL 23) L 24.6 (JUL 22) L 29.2 (JUL 21) Plt 177 (JUL 24) 220 (JUL 23) 191 (JUL 22) 246 (JUL 21) Na 145 (JUL 24) H 152 (JUL 23) 144 (JUL 22) 141 (JUL 21) K 3.9 (JUL 24) 4.2 (JUL 23) 4.5 (NOV ) 4.9 (NOV ) Cl H 115 (JUL 24) H 127 (JUL 23) H 118 (JUL 22) H 113 (JUL 21) CO2 25 (JUL 24) 22 (NOV ) 21 (NOV ) 23 (NOV ) BUN L 3 (JUL 24) 7 (JUL 23) 13 (NOV ) 16 (NOV ) Cr 0.90 (JUL 24) 0.70 (JUL 23) 0.80 (JUL 22) 1.00 (JUL 21) Glu R H 145 (JUL 24) H 126 (JUL 23) L 63 (JUL 22) 74 (JUL 21) Ca 9.4 (JUL 24) 8.8 (JUL 23) L 7.6 (JUL 22) 8.6 (JUL 21) Lactic 0.5 (JUL 21) AST 17 (JUL 24) 18 (JUL 22) 19 (JUL 21) ALT 20 (JUL 24) 17 (JUL 22) 19 (JUL 21) ALK P H 150 (JUL 24) 123 (JUL 22) H 148 (JUL 21) T Bili 0.8 (JUL 24) 0.7 (JUL 22) 0.5 (JUL 21) PTN L 4.8 (JUL 24) L 4.0 (JUL 22) L 4.7 (JUL 21) ALB L 2.9 (JUL 24) L 2.3 (JUL [...] 1999) -suspect dilutional and about at baseline. hg 7.9 to 8.5 to 8.7 Non hodgkins lymphoma GERD -home meds protonix 40 qd recent covid 19 infection 06/19 Gi prop- protonix 40 qd dvt prop- heparin sq q 12 wednesday, July 23, 2021. 35 minutes spent on [...] also improved from 7.9 up to 8.5. , July 24, 2021. 31-minute spent on follow-up of very unfortunate [...] number belonging to Shawn Timmons phone number [phone] I called that phone number it rang [...] 2.5 daily. Lasix 20 every other day. [employer] dictation system used. Computer program makes numerous spelling grammar mistakes. If you have any questions or concerns do not hesitate call Dr. Bandar Pruett at cell phone number [phone]. documented in this encounter Plan of Treatment Not on file documented as of this encounter Visit Diagnoses Not on filedocumented in this encounter
--- OUTSIDE RECORDS SUMMARY | 2025-03-08 13:19 | XMS_ITS | Encounter Summary ---
Author Organization [employer] ([place], [place], [place], [place]) Address [address] [place] [address] Care Team Providers Care Decorating Consultant Name Role Phone Unavailable Primary Care Provider Unavailabl e Encounter Details Date Type Department Care Team (Late st Contact Info) Description 07/29/2021 Transcribed Document [facility] [place] [facility] [address] [place] [address] ProviderTg MD [address] [place] [address] Social History Tobacco Use Types Packs/Day Years Used Date Smoking Tobacco: Never Assessed Comments Unknown Sex and Gender Information Value Date Recorded Sex Assigned at Not on file Legal Sex Female 2:39 PM CDT Gender Identity Not on file Sexual Orientation Not on file documented as of this encounter Miscellaneous Notes * Cerner Conversion Note - Tg ProviderMD - 07/29/2021 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 [facility] [place] [address] SUDHA TIMMONS :1945 Visit Time:07/21/2021 Your Visit Summary Your Care Team Admitting Physician - LAURE COVINGTON DO-INT Attending Physician - HARPREET STOVER DO Primary Care Physician - SAMSON MARTÍNEZ MD-ONC Referring Physician - VERO, UNKNOWN Your Diagnosis Altered mental status [place] ingestion [place] toxicity, Toxic effect of other metals, accidental (unintentional), initial encounter, Toxic effect of other metals, accidental (unintentional), initial encounter These Are Your Goals Patient Discharge Goal Patient Discharge Goal: group home facility Discharge Vitals Temperature 36.3 ??C Heart Rate (Monitored) 98 Respiratory Rate 18 Blood Pressure 134/69 What to do next Instructions From Your Care Team [place] Report: [phone] Fax: [phone] Transportation: 07/29 at 1500 [employer]retcher/Trip#[id number] Discharge Activity: Discharge Activity: Activity as tolerated Diet: mechanical soft, thin liquid diet, Discharge Diet: Other (see Special Instructions) Follow-Up Appointments Follow Up with SAMSON MARTÍNEZ MD-ONC When Within 5 to 7 days Comments Call for follow up appointment when discharged from Rehab Where: [address] [place] [address]- Follow Up with stop taking lithium When Within 2 to 3 days Medications What How Much When Instructions Next Dose nitrofurantoin (Macrobid 100 mg oral capsule) 1 Capsule(s) Oral Two Times A Day Duration: 5 Day(s) Printed Prescription tonight carvedilol (Coreg 3.125 mg oral tablet) 1 Tablet(s) Oral Two Times A Day Printed Prescription tonight divalproex sodium (Depakote 250 mg oral delayed release tablet) 1 Tablet(s) Oral Two Times A Day tonight docusate (Colace 100 mg oral capsule) 1 Capsule(s) Oral Two Times A Day as needed for for constipation as needed acetaminophen-hydrocodone ([place] 5 mg-325 mg oral tablet) 1 Tablet(s) Oral Two Times A Day as needed for for pain Printed Prescription as needed aspirin (Aspirin Low Dose 81 mg oral delayed release tablet) 1 Tablet(s) Oral Every Day 12-1 atorvastatin (atorvastatin 40 mg oral tablet) 1 Tablet(s) Oral At Bedtime tonight bisacodyl (bisacodyl 10 mg rectal suppository) 1 Suppository(ies) Rectal Every Day as needed for for constipation as needed cyanocobalamin (Vitamin B12 1000 mcg oral tablet) 1 Tablet(s) Oral Every Day 12-1 furosemide (furosemide 20 mg oral tablet) 1 Tablet(s) Oral Every Other Day takes on even days 12-2 lisinopril (lisinopril 2.5 mg oral tablet) 1 Tablet(s) Oral Every Day 12-1 multivitamin (Multiple Vitamins oral tablet) 1 Tablet(s) Oral Every Day 12-1 pantoprazole (pantoprazole 40 mg oral delayed release tablet) 1 Tablet(s) Oral Every Day 12-1 polyethylene glycol 3350 (polyethylene glycol 3350 oral powder for reconstitution) 17 Gram(s) Oral Every Day 12-1 QUEtiapine (QUEtiapine 300 mg oral tablet) 1 Tablet(s) Oral At Bedtime tonight Take your medications faithfully. Do NOT skip [...] Please dispose of unused and medications per your retail pharmacy guidance. Allergies Anaprox (Rash) Latex (Itching) codeine naproxen Immunizations This Visit No Immunizations Found Education Materials [place] Toxicity [place] toxicity, which is also called lithium poisoning, is the condition of having too much lithium in the blood. [place] is a medicine that is used to treat bipolar disorder. [place] toxicity can be life-threatening. What are the causes? This condition is caused by: ??? Ingesting too much lithium, causing levels of lithium to rise in your body. ??? Taking lithium on a regular basis and: ? Having a condition that raises lithium levels in the body. ? Taking another medicine that raises lithium levels in the body. ??? Taking excess amounts of lithium in trying to take one's life (suicide attempt). ??? A decrease in kidney (renal) function because of dehydration, or as a side effect of another medicine. What increases the risk? This condition is more likely to develop in people: ??? Who are young or old. ??? Who have kidney disease. ??? Who have heart disease. ??? Who have dehydration that is caused by sweating or diarrhea. ??? Who have low sodium levels in the body. Certain medicines can increase the risk for this condition. They include: ??? Water pills (diuretics). ??? Certain medicines for high blood pressure. ??? Nonsteroidal anti-inflammatory drugs (NSAIDs). What are the signs or symptoms? Symptoms of mild to moderate lithium toxicity are: ??? Nausea and vomiting. ??? Diarrhea. ??? Drowsiness. ??? Thirst. ??? Muscle weakness. ??? Slurred speech. ??? Lack of coordination. ??? Frequent urination. ??? Being restless (agitation). The symptoms of moderate to severe lithium toxicity are: ??? Blurred vision. ??? Giddiness. ??? Ringing in the ears. ??? Severe muscle spasms. ??? Seizures. ??? Abnormal heart rhythm. ??? Loss of consciousness or coma. How is this diagnosed? This condition may be diagnosed based on: ??? Your signs and symptoms. ??? Your use of lithium. You will be asked about how much lithium you take, how long you have been taking it, and when you took your last dose. ??? Blood tests. These are done to check the level of lithium in your blood. How is this treated? Treatment for this condition depends on how severe it is. It often involves special monitoring and hospitalization. ??? For mild or moderate toxicity, your dosage of lithium may be reduced or stopped. ??? For severe toxicity, lithium may be removed from your body. This is done in a hospital emergency department. It may involve: ? Gastric lavage. A tube is placed through your nose or mouth into your stomach. The tube is used to remove lithium that has not yet been digested. It may also be used to put medicines directly into your stomach to help stop lithium from being absorbed. ? Medicines that increase removal of lithium by your kidneys. ? Use of an artificial kidney to clean your blood (dialysis). This is usually done only in the most severe cases. Follow these instructions at home: ??? Take pqla-slb-uprpkcm and prescription medicines only as told by your health care provider. ??? Drink enough fluid to keep your urine pale yellow. ??? If your toxicity was a result of an intentional overdose, work with a mental health tire care manager (psychiatrist or counselor). How is this prevented? [place] toxicity is preventable. To keep it from recurring: ??? Take medicines only as told by your health care provider. ??? Drink enough fluid to keep your urine pale yellow. ??? Talk with your health care provider before starting a low-salt (low-sodium) diet. ??? Have your blood lithium levels checked regularly. ??? Watch for signs and symptoms of lithium toxicity. If you have signs or symptoms, get treatment early. This can help keep severe symptoms from developing. ??? Always ask about the risk of interactions when starting a new medicine. Contact a health care provider if: ??? You have signs or symptoms of mild or moderate lithium toxicity after you receive treatment, even if your blood lithium level is normal. Get help right away if: ??? Your symptoms get worse. ??? You have signs or symptoms of severe lithium toxicity after you receive treatment. Summary ??? [place] toxicity, which is also called lithium poisoning, is the condition of having too much lithium in your blood. ??? This either results from taking too much lithium or from changes that cause the medicine to be eliminated from your body more slowly. ??? Treatment depends on the severity of the condition but often involves special monitoring and hospitalization. This information is not intended to replace advice given to you by your health care provider. Make sure you discuss any questions you have with your health care provider. Document Revised: 12/08/2019 Document Reviewed: 08/26/2018 [employer] Patient Education ?? 2020 [employer]. Urinary Tract Infection, Adult A urinary tract infection (UTI) is an infection of any part of the urinary tract. The urinary tract includes the kidneys, ureters, bladder, and urethra. These organs make, store, and get rid of urine in the body. Your health care provider may use other names to describe the infection. An upper UTI affects the ureters and kidneys (pyelonephritis). A lower UTI affects the bladder (cystitis) and urethra (urethritis). What are the causes? Most urinary tract infections are caused by bacteria in your genital area, around the entrance to your urinary tract (urethra). These bacteria grow and cause inflammation of your urinary tract. What increases the risk? You are more likely to develop this condition if: ??? You have a urinary catheter that stays in place (indwelling). ??? You are not able to control when you urinate or have a bowel movement (you have incontinence). ??? You are female and you: ? Use a spermicide or diaphragm for control. ? Have low estrogen levels. ? Are . ??? You have certain genes that increase your risk (genetics). ??? You are sexually active. ??? You take antibiotic medicines. ??? You have a condition that causes your flow of urine to slow down, such as: ? An enlarged prostate, if you are male. ? Blockage in your urethra (stricture). ? A kidney stone. ? A nerve condition that affects your bladder control (neurogenic bladder). ? Not getting enough to drink, or not urinating often. ??? You have certain medical conditions, such as: ? Diabetes. ? A weak disease-fighting system (immunesystem). ? Sickle cell disease. ? Gout. ? Spinal cord injury. What are the signs or symptoms? Symptoms of this condition include: ??? Needing to urinate right away (urgently). ??? Frequent urination or passing small amounts of urine frequently. ??? Pain or burning with urination. ??? Blood in the urine. ??? Urine that smells bad or unusual. ??? Trouble urinating. ??? Cloudy urine. ??? Vaginal discharge, if you are female. ??? Pain in the abdomen or the lower back. You may also have: ??? Vomiting or a decreased appetite. ??? Confusion. ??? Irritability or tiredness. ??? A fever. ??? Diarrhea. The first symptom in older adults may be confusion. In some cases, they may not have any symptoms until the infection has worsened. How is this diagnosed? This condition is diagnosed based on your medical history and a physical exam. You may also have other tests, including: ??? Urine tests. ??? Blood tests. ??? Tests for sexually transmitted infections (STIs). If you have had more than one UTI, a cystoscopy or imaging studies may be done to determine the cause of the infections. How is this treated? Treatment for this condition includes: ??? Antibiotic medicine. ??? Igfq-iyc-ercisma medicines to treat discomfort. ??? Drinking enough water to stay hydrated. If you have frequent infections or have other conditions such as a kidney stone, you may need to see a health care provider who specializes in the urinary tract (urologist). In rare cases, urinary tract infections can cause sepsis. Sepsis is a life-threatening condition that occurs when the body responds to an infection. Sepsis is treated in the hospital with IV antibiotics, fluids, and other medicines. Follow these instructions at home: Medicines ??? Take nphl-lfs-znrdgxo and prescription medicines only as told by your health care provider. ??? If you were prescribed an antibiotic medicine, take it as told by your health care provider. Do not stop using the antibiotic even if you start to feel better. General instructions ??? Make sure you: ? Empty your bladder often and completely. Do not hold urine for long periods of time. ? Empty your bladder after sex. ? Wipe from front to back after a bowel movement if you are female. Use each tissue one time when you wipe. ??? Drink enough fluid to keep your urine pale yellow. ??? Keep all follow-up visits as told by your health care provider. This is important. Contact a health care provider if: ??? Your symptoms do not get better after 1???2 days. ??? Your symptoms go away and then return. Get help right away if you have: ??? Severe pain in your back or your lower abdomen. ??? A fever. ??? Nausea or vomiting. Summary ??? A urinary tract infection (UTI) is an infection of any part of the urinary tract, which includes the kidneys, ureters, bladder, and urethra. ??? Most urinary tract infections are caused by bacteria in your genital area, around the entrance to your urinary tract (urethra). ??? Treatment for this condition often includes antibiotic medicines. ??? If you were prescribed an antibiotic medicine, take it as told by your health care provider. Do not stop using the antibiotic even if you start to feel better. ??? Keep all follow-up visits as told by your health care provider. This is important. This information is not intended to replace advice given to you by your health care provider. Make sure you discuss any questions you have with your health care provider. Document Revised: 08/03/2019 Document Reviewed: 02/23/2019 [employer] Patient Education ?? 2020 [employer] Emergency Awareness and Preventative Care STROKE [...] Assistance with quitting is available by contacting 3-230-BCTTNOW. This is a free resource providing counseling, support, and referral. Or you may contact your personal physician. [employer] Suicide Prevention Lifeline: The National Suicide Prevention [...] and how to prevent infections, visit www.cdc.gov/sepsis. Test Results Laboratory or Other Results This Visit (last charted value for your 07/21/2021 visit) Hematology 07/29/2021 8:37 AM WBC: 5.4 K/uL -- Normal range between ( 4.5 and 10.5 ) RBC: 2.15 Million/uL -- Normal range between ( 3.93 and 5.22 ) Hct: 23.6 % -- Normal range between ( 34.1 and 44.9 ) Hgb: 7.5 g/dL -- Normal range between ( 11.2 and 15.7 ) Platelet Count: 174 K/uL -- Normal range between ( 163 and 369 ) MCH: 34.9 pg -- Normal range between ( 25.6 and 32.2 ) MCHC: 31.8 Gram/dL -- Normal range between ( 32.2 and 36.5 ) MCV: 109.8 fL -- Normal range between ( 79.0 and 94.8 ) Slide Review: No RDW: 19.9 % -- Normal range between ( 11.7 and 14.9 ) MPV: 10.7 fL -- Normal range between ( 9.4 and 12.4 ) 07/28/2021 5:07 AM nRBC: 0.020 -- Normal range between ( 0.000 and 0.012 ) 07/27/2021 3:38 AM Hypochromia: 1+ RBC Morphology: Abnormal [place] Percent Man: 9 % -- Normal range between ( 4 and 5 ) Ovalocytes: 1+ Baso Percent Man: 0 % -- Normal range between ( 0 and 1 ) Neutrophil Percent Man: 57 % -- Normal range between ( 50 and 65 ) Eos Percent Man: 9 % -- Normal range between ( 0 and 3 ) Anisocytosis: 2+ Platelet Ct Estimate: Decreased Anastacia Cells: 1+ Poikilocytosis: 1+ Lymph Percent Man: 25 % -- Normal range between ( 24 and 44 ) 07/26/2021 10:46 AM Band Percent Man: 1 % -- Normal range between ( 5 and 11 ) [place] Percent Man: 2 % -- Normal range between ( 0 and 1 ) 07/25/2021 4:09 AM ALYC #: 1 K/uL Polychromasia: 1+ Dohle Bodies: Present Macrocytosis: 1+ ANC #: 4 K/uL 07/22/2021 3:28 AM Acanthocytes: occ Eos %: 5.5 % -- Normal range between ( 0.0 and 7.0 ) [place] #: 0.96 K/uL -- Normal range between ( 0.16 and 1.00 ) Eos #: 0.36 x10(3)/uL -- Normal range between ( 0.00 and 0.80 ) [place] %: 14.6 % -- Normal range between ( 3.0 and 9.0 ) Baso %: 0.3 % -- Normal range between ( 0.0 and 1.5 ) Microcytosis: 1+ Baso #: 0.02 x10(3)/uL -- Normal range between ( 0.00 and 0.20 ) Neut %: 67.0 % -- Normal range between ( 34.0 and 71.0 ) Neut #: 4.41 K/uL -- Normal range between ( 1.56 and 6.13 ) Lymph %: 12.3 % -- Normal range between ( 19.3 and 53.1 ) [place] Cells: 1+ Lymph #: 0.81 x10(3)/uL -- Normal range between ( 1.00 and 3.90 ) IG#: 0.02 x10(3)/uL -- Normal range between ( 0.00 and 0.05 ) IG%: 0.30 % -- Normal range between ( 0.00 and 0.60 ) Urinalysis 07/21/2021 6:38 PM Ur RBC: 2-5 /HPF Urine Nitrite: Negative Urine Leukocyte Esterase: Small Urine Appearance: Clear Urine Glucose Dipstick: Negative Urine Blood Dipstick: Negative Urine Urobilinogen Dipstick: 1.0 EU/dL Urine Protein Dipstick: Negative Ur WBC Clumps: Present Ur Squamous Epithelial Cells: 2-5 /HPF Urine Color: Yellow Ur WBC: 5-10 /HPF Urine Ketones Dipstick: 15 Urine pH Dipstick: 7.0 -- Normal range between ( 6.0 and 8.0 ) Urine Bilirubin Dipstick: Negative Urine Specific [place]: 1.012 -- Normal range between ( 1.005 and 1.030 ) Urine Type.: U CleanCatch Urine Culture if Indicated: Not Indicated Microbiology 07/29/2021 8:37 AM SARS-CoV-2 (COVID19 PCR): Negative 07/21/2021 2:55 PM Blood Culture: See Result 07/21/2021 2:40 PM Urine Culture: POS Influenza A: Negative Influenza B: Negative General Chemistry 07/29/2021 11:52 AM Glucose POC2: 108 mg/dL -- Normal range between ( 70 and 110 ) Device Comment 1: Device Comment 1 07/29/2021 5:38 AM Creatinine Level: 0.60 mg/dL -- Normal range between ( 0.55 and 1.02 ) Sodium Level: 146 mmol/L -- Normal range between ( 136 and 146 ) Potassium Level: 4.9 mmol/L -- Normal range between ( 3.5 and 5.1 ) Chloride Level: 120 mmol/L -- Normal range between ( 102 and 112 ) Carbon Dioxide Level: 20 mmol/L -- Normal range between ( 21 and 32 ) Anion Gap: 11 -- Normal range between ( 9 and 20 ) Bun/Creatinine: 10.0 -- Normal range between ( 8.0 and 20.0 ) Calcium Level: 9.4 mg/dL -- Normal range between ( 8.4 and 10.1 ) eGFR : >60 mL/min/1.73m2 eGFR NonAfrican: >60 mL/min/1.73m2 Glucose Level: 108 mg/dL -- Normal range between ( 74 and 106 ) Blood Urea Nitrogen: 6 mg/dL -- Normal range between ( 7 and 22 ) 07/28/2021 5:07 AM Magnesium Level: 2.0 mg/dL -- Normal range between ( 1.5 and 2.4 ) 07/25/2021 4:09 AM Bilirubin Total: 0.5 mg/dL -- Normal range between ( 0.2 and 1.2 ) A/G Ratio: 1.5 -- Normal range between ( 1.1 and 2.5 ) ALT: 19 Units/Liter -- Normal range between ( 13 and 56 ) AST: 14 Units/Liter -- Normal range between ( 5 and 37 ) Globulin: 1.8 Gram/dL -- Normal range between ( 1.5 and 4.5 ) Alk Phos: 136 Units/Liter -- Normal range between ( 27 and 136 ) Protein Total: 4.5 Gram/dL -- Normal range between ( 6.4 and 8.2 ) Albumin Level: 2.7 Gram/dL -- Normal range between ( 3.4 and 5.0 ) 07/21/2021 2:40 PM Ammonia Level: <10.0 uMol/L -- Normal range between ( 11.0 and 32.0 ) Lactic Acid Level: 0.5 mmol/L -- Normal range between ( 0.4 and 2.0 ) Cardiac Specific Markers 07/21/2021 2:40 PM CK: 188 Units/Liter -- Normal range between ( 26 and 192 ) Troponin I Ultra: 0.019 ng/mL -- Normal range between ( 0.015 and 0.045 ) ProBNP: 727 pg/mL -- Normal range between ( 0 and 125 ) Endocrinology 07/21/2021 2:40 PM TSH: 1.320 mcInt Units/mL -- Normal range between ( 0.358 and 3.740 ) Procalcitonin: <0.25 ng/mL -- Normal range between ( 0.00 and 2.00 ) Therapeutic Drugs 07/29/2021 5:38 AM Valproic Acid Level: 54.0 mcg/mL -- Normal range between ( 50.0 and 100.0 ) 07/26/2021 5:19 AM [place] Level: 0.7 mmol/L -- Normal range between ( 0.6 and 1.2 ) 07/21/2021 4:59 PM Acetaminophen Level: 3.2 mcg/mL -- Normal range between ( 10.0 and 30.0 ) Salicylate: <1.7 mg/dL -- Normal range between ( 2.8 and 20.0 ) Toxicology 07/21/2021 6:38 PM UDS Amp: NEGATIVE UDS Stephy: NEGATIVE UDS Benzo: NEGATIVE UDS Javi: NEGATIVE UDS Opi: POSITIVE UDS PCP: NEGATIVE UDS TCA: NEGATIVE UDS THC: NEGATIVE UDS pH: 7.0 07/21/2021 2:40 PM %Alcohol: <.00 Alcohol: <3 mg/dL Infectious Disease 07/23/2021 4:42 AM Hep B Core: Non Reactive Hep C AB: Non Reactive Hep B Surf AG: Non Reactive Hep A IgM AB: Non Reactive Vitamin Chemistry 07/22/2021 3:28 AM Folate Level: >20 ng/mL -- Normal range between ( 3.10 and 17.50 ) Vitamin B12 Level: >2000 pg/mL -- Normal range between ( 193 and 986 ) Computed Tomography 07/21/2021 3:[address] Head WO: CT Head WO Diagnostic Radiology 07/21/2021 6:14 PM CR Chest 1 Vw Portable: CR Chest 1 Vw Portable Specials/Interventional 07/23/2021 9:59 AM XA CVC Non Tunnel: XA CVC Non Tunnel Patient Name:SUDHA TIMMONS W I have received and understand this information and was given the opportunity to ask questions. Patient/Hiv Nurse Name: Patient/Hiv Nurse Signature: Relationship to Patient: Clinician/Hospital Hiv Nurse Signature: Date: documented in this encounter Plan of Treatment Not on file documented as of this encounter Visit Diagnoses Not on filedocumented in this encounter
--- OUTSIDE RECORDS SUMMARY | 2025-03-08 13:19 | XMS_ITS | Encounter Summary ---
Author Organization [employer] ([place], [place], [place], [place]) Address [address] [place] [address] Care Team Providers Care Interactive Media Specialist Name Role Phone Unavailable Primary Care Provider Unavailabl e Encounter Details Date Type Department Care Team (Late st Contact Info) Description 07/23/2021 Transcribed Document [facility] [place] [facility] [address] [place] [address] ProviderTg MD [address] [id number] Social History Tobacco Use Types Packs/Day Years Used Date Smoking Tobacco: Never Assessed Comments Unknown Sex and Gender Information Value Date Recorded Sex Assigned at Not on file Legal Sex Female 2:39 PM CDT Gender Identity Not on file Sexual Orientation Not on file documented as of this encounter Miscellaneous Notes * Cerner Conversion Note - Historical ProviderMD - 07/23/2021 9:46 AM 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 Procedural MD: Bonnie Workforce Planning Analyst: N/A Sedation: Local only Findings: Patent Right IJ Complications: None. EBL: < 2 ml Specimen(s) Removed: N/A Impression: Successful placement of right IJ temporary dialysis catheter placement, Line is ready to use. Full report to follow. Electronically signed by Keven [facility] Conversion Textile Artist Cerner at 12/18/2022 9:13 AM CDT documented in this encounter Plan of Treatment Not on file documented as of this encounter Visit Diagnoses Not on filedocumented in this encounter
--- OUTSIDE RECORDS SUMMARY | 2025-03-08 13:19 | XMS_ITS | Referral Summary ---
Author Organization [employer] ([place], [place], [place], [place]) Address [address] [place] [address] Care Team Providers Care Dope Mixer Name Role Phone Unavailable Primary Care Provider [...]
--- OUTSIDE RECORDS SUMMARY | 2025-03-08 13:19 | XMS_ITS | Encounter Summary ---
Author Organization [employer] ([place], [place], [place], [place]) Address [address] [place] [address] Care Team Providers Care Microfilm Duplicating Unit Supervisor Name Role Phone Unavailable Primary Care Provider Unavailabl e Encounter Details Date Type Department Care Team (Late st Contact Info) Description 07/24/2021 Transcribed Document [facility] [place] [address] [place] [address] ProviderTg MD [address] [place] [address] Social History Tobacco Use Types Packs/Day Years Used Date Smoking Tobacco: Never Assessed Comments Unknown Sex and Gender Information Value Date Recorded Sex Assigned at Not on file Legal Sex Female 2:39 PM CDT Gender Identity Not on file Sexual Orientation Not on file documented as of this encounter Miscellaneous Notes * Cerner Conversion Note - Historical ProviderMD - 07/24/2021 11:48 AM CALENDER FEEDER SUPPLIER QUALITY Note Entered On: 07/28/2021 11:31 EST Performed On: 07/28/2021 11:28 EST by GIRISH DAVIES, SUPPLIER QUALITY Pain Assessment Pain Scaled Used : FACES Pain Score Pre-Intervention : 2 GIRISH DAVIES SLP - 07/28/2021 11:28 EST Image 1 - Images currently included in the form version of this document have not been included in the text rendition version of the form. Dysphagia Exercise Technique Dysphagia Therapy/Treatment Type #1 : Other: re-assess GIRISH DAVIES SLP - 07/28/2021 11:28 EST PO Trials Dysphagia Exercise Technique PO Trial #1 PO Trial #2 PO Trial #3 Consistency Trialed : Thin Mechanically altered Regular solids Oral Symptoms : None observed Mastication, prolonged, Piecemeal deglutition Mastication, prolonged, Piecemeal deglutition Pharyngeal Signs : None observed None observed None observed GIRISH DAVIES SLP - 07/28/2021 11:28 EST GIRISH DAVIES, SUPPLIER QUALITY - 07/28/2021 11:28 EST GIRISH DAVIES, SUPPLIER QUALITY - 07/28/2021 11:28 EST Swallow Plan/Goals Swallow LTG Grid SUPPLIER QUALITY Hydrotel Operator Goal #1 SUPPLIER QUALITY Hydrotel Operator Goal #2 Swallow LTG : Improve swallowing function for oral intake Other: Pt goal: Unable to state Status : Goal met Date Met : 07/28/2021 GIRISH VILLEGAS SLP - 07/28/2021 11:28 EST GIRISH DAVIES, SUPPLIER QUALITY - 07/28/2021 11:28 EST Swallow Goals Grid Goal #1 Swallow STG : Tolerate diet advancement (liquid or solids) Related To : Aspiration prevention Date to Meet : 07/29/2021 EST Status : Goal met Date Met : 07/28/2021 GIRISH VILLEGAS SLP - 07/28/2021 11:28 EST Subjective/Assessment/Plan SUPPLIER QUALITY Patient Concern : Pt asleep in bed, agreeable to re-assessment SUPPLIER QUALITY Therapy/Treatment Asmt Cmnt : Pt significantly improved. She is able to tell me reason for hospitalization and asks how could I get that sick? Pt's oral skills are slow but may be more related to edentulism. NO pharyngeal patterns observed with any tested consistency. Cognition has improved significantly. Pt verbalizes excitement re: solid foods. SUPPLIER QUALITY Plan : Pt may advance to a [facility] soft diet and continue thin liquids. If family brings teeth she may be advanced to regular solids without ST reconsult. Nothing further for ST to offer and will sign off. GIRISH DAVIES SLP - 07/28/2021 11:28 EST Education Individuals Taught : Patient GIRISH DAVIES SLP - 07/28/2021 11:28 EST SUPPLIER QUALITY Education Assessment Grid 1 Aspiration : Needs further teaching Diet Recommendation : Verbalizes understanding GIRISH DAVIES SLP - 07/28/2021 11:[address] [facility] SUPPLIER QUALITY Charges Treatment-Swallowing : 1 GIRISH DAVIES SLP - 07/28/2021 11:28 EST Anticipated Discharge Needs, SUPPLIER QUALITY Anticipated Discharge to : Unit, retirement Recommend Continued Therapy at Discharge : No GIRISH DAVIES SLP - 07/28/2021 11:28 EST Electronically signed by [facility] Conversion Usability Engineer Cerner at 12/18/2022 9:12 AM CDT documented in this encounter Plan of Treatment Not on file documented as of this encounter Visit Diagnoses Not on filedocumented in this encounter
--- OUTSIDE RECORDS SUMMARY | 2025-03-08 13:19 | XMS_ITS | Encounter Summary ---
Author Organization [employer] (?) ([place], [place], [place], [place]) Address [address] [place] [address] Care Team Providers Care Advertising Rep Name Role Phone Unavailable Primary Care Provider Unavailabl e Encounter Details Date Type Department Care Team (Late st Contact Info) Description 06/19/2021 Transcribed Document [facility] [place] Family Medicine [address] [place] [address] ProviderTg MD [address] [place] [address] Social History Tobacco Use Types Packs/Day Years Used Date Smoking Tobacco: Never Assessed Comments Unknown Sex and Gender Information Value Date Recorded Sex Assigned at Not on file Legal Sex Female 2:39 PM CDT Gender Identity Not on file Sexual Orientation Not on file documented as of this encounter Miscellaneous Notes * Cerner Conversion Note - Historical ProviderMD - 06/19/2021 1:49 PM CDT Neurodiagnostics Event Note Entered On: 06/19/2021 13:50 EDT Performed On: 06/19/2021 13:49 EDT by Dorothea Horn [email or web address] Neurodiagnostics Event Note Neurodiagnostic Event Date/Time : 06/19/2021 13:49 EDT Neurodiagnostic Event Location : Assigned room Neurodiagnostic Event Details : Procedure completed Dorothea Horn R.EEG.T - 06/19/2021 13:49 EDT documented in this encounter Plan of Treatment Not on file documented as of this encounter Visit Diagnoses Not on filedocumented in this encounter
--- OUTSIDE RECORDS SUMMARY | 2025-03-08 13:19 | XMS_ITS | Encounter Summary ---
Author Organization [employer] ([place], [place], [place], [place]) Address [address] [place] [address] Care Team Providers Care Resolution Manager Name Role Phone Unavailable Primary Care Provider Unavailabl e Encounter Details Date Type Department Care Team (Late st Contact Info) Description 06/20/2021 Transcribed Document [facility] [place] [address] [place] [address] ProviderTg MD [address] [place] [address] Social History Tobacco Use Types Packs/Day Years Used Date Smoking Tobacco: Never Assessed Comments Unknown Sex and Gender Information Value Date Recorded Sex Assigned at Not on file Legal Sex Female 2:39 PM CDT Gender Identity Not on file Sexual Orientation Not on file documented as of this encounter Miscellaneous Notes * Cerner Conversion Note - Tg Jones MD - 06/20/2021 10:32 AM CDT Patient: SUDHA SOLORZANO Age: 75 Years Sex: Female : 1945 Assessment 75-year-old female with a protracted respiratory illness related to Covid, pulmonary embolism, hypernatremia corrected, and encephalopathy since admission. EEG recordings showed epileptiform discharges and slow-wave activity in the frontal-temporal electrodes in both hemispheres. I will continue recording. She has improved and MRI does not [...] recommendations will be based on test results, healthcare architect communication, and clinical course. Ordered Continuous EEG [...]
--- OUTSIDE RECORDS SUMMARY | 2025-03-08 13:19 | XMS_ITS | Encounter Summary ---
Author Organization [employer] ([place], [place], [place], [place]) Address [address] [place] [address] Care Team Providers Care Plans Examiner Name Role Phone Unavailable Primary Care Provider Unavailabl e Encounter Details Date Type Department Care Team (Late st Contact Info) Description 06/27/2021 Transcribed Document [facility] [place] [address] [place] [address] ProviderTg MD [address] [place] [address] Social History Tobacco Use Types Packs/Day Years Used Date Smoking Tobacco: Never Assessed Comments Unknown Sex and Gender Information Value Date Recorded Sex Assigned at Not on file Legal Sex Female 2:39 PM CDT Gender Identity Not on file Sexual Orientation Not on file documented as of this encounter Miscellaneous Notes * Cerner Conversion Note - Tg Jones MD - 06/27/2021 10:07 AM CDT Patient: SUDHA SOLORZANO Age: 75 [...] -strict intake and output - Sodium trend: 139-->138-->136-->135 - Transfuse to keep H/H greater than 7/21 -Thanks for consultation, we will follow along with you periodically VTE Prophylaxis - Medical Sequential Compression Device Start: 06/07/21 14:19:00 EDT, Bilateral, Length: Knee High, While patient is in bed, Continuous Order (CARA DE LA ROSA) Subjective Patient was seen and evaluated by bedside Vital Signs T: 36.8 ??C TMIN: 36.5 ??C TMAX: 36.8 ??C HR: 70(Monitored) RR: 18 BP: 99/61 SpO2: 94% HT: 157.48 cm WT: 115.09 kg BMI: 46.41 Oxygen Settings (Last) Oxygen Therapy Mode: Room air (06/27/21 05:00:00) Oxygen Flow Rate: 1.5 Liter/Min (06/26/21 08:00:00) Intake & Output Totals Last 24 Hours (7a-7a) Input Total: 290 mL Output Total: 0 mL Balance: 290 mL Physical Exam General: more alert and [...] 06/27/2021 05:30 EDT Device Comment 1 Notified Nurse RBV 06/27/2021 05:41 EDT Device Comment 1 Notified Nurse RBV 06/26/2021 20:27 EDT Device Comment 1 Notified Nurse RBV 06/26/2021 11:22 EDT Glucose POC2 100 mg/dL 06/27/2021 05:41 EDT Glucose POC2 140 mg/dL (High) 06/26/2021 20:27 EDT Glucose POC2 116 mg/dL (High) 06/26/2021 11:22 EDT WBC 6.1 K/uL 06/27/2021 04:30 EDT [...] EDT Slide Review No 06/27/2021 04:30 EDT Electronically signed by Keven, [facility] Conversion Disability Counselor Cerner at 12/18/2022 9:09 AM CDT documented in this encounter Plan of Treatment Not on file documented as of this encounter Visit Diagnoses Not on filedocumented in this encounter
--- OUTSIDE RECORDS SUMMARY | 2025-03-08 13:19 | XMS_ITS | Encounter Summary ---
Author Organization [employer] ([place], [place], [place], [place]) Address [address] [place] [address] Care Team Providers Care Bisque Cleaner Name Role Phone Unavailable Primary Care Provider Unavailabl e Encounter Details Date Type Department Care Team (Late st Contact Info) Description 06/27/2021 Transcribed Document [facility] [place] [address] [place] [address] ProviderTg MD [address] [place] [address] Social History Tobacco Use Types Packs/Day Years Used Date Smoking Tobacco: Never Assessed Comments Unknown Sex and Gender Information Value Date Recorded Sex Assigned at Not on file Legal Sex Female 2:39 PM CDT Gender Identity Not on file Sexual Orientation Not on file documented as of this encounter Miscellaneous Notes * Cerner Conversion Note - Historical ProviderMD - 06/27/2021 3:00 AM CDT Nutrition Assessment Entered On: 06/27/2021 12:37 EDT Performed On: 06/27/2021 14:56 EDT by JACQUELYN CHERY, JANET, LD Nutrition Assessment Current Nutrition Regimen Comment : 06/27: High f/u. Pt is out of isolation. Corpak has been removed and pt is off TF. Spoke with pt; reports she can't find her dentures and needs softer foods, and says she likes Janessa Ensure only. RD to change diet to [facility] soft with ground meats. 06/24: High f/u. PEANUT GRADER cleared pt for a regular diet with thin liquids yesterday. noted that pt's mentation has greatly improved. She has had bleeding at her corpak site and required a blood transfusion yesterday. Discussed pt with nursing. Pt's corpak has been removed and she consumed 17% of meals x 3. Dx: Sepsis d/t UTI and COVID+ PNA, acute resp failure, transaminitis, hypertensive urgency, A/C metabolic encephalopathy, NSTEMI PMH: Non-hodgkins lymphoma, dementia, HTN, depression, bipolar, osteoarthritis Labs: Na 135 (06/21) Alb 2.3, FSB, 100, 140 Meds: Vit B12, docusate, Pepcid, SSI, probiotic, miralax, steroid Skin: excoriation of buttocks, anasarca LBM: + (06/27), diarrhea Diet: Cardiac + Ensure TID PO Intake: 10-25% X 6 meals Ht: 5'2 Admit wt: 250#, no new wt (06/13), 248# (06/17)249# (06/17), 113kg/249# (06/22), 253# (06/27) IBW: 110#/227% IBW BMI: 45.8 Adj wt: 145#/66 kg Estimated needs: 4664-8134 kcals (MSJX1.2-500) and 73+ grams protein (1.1 grams/kg/adjwt) JACQUELYN CHERY RD, LD - 06/27/2021 14:52 EDT Nutrition Assessment Reason : Follow Up JACQUELYN CHERY RD, LD - 06/27/2021 12:37 EDT Nutrition Diagnoses Oral or Nutrition Support Intake : Inadequate oral intake Oral or Nutr Support Intake Related To : decreased appetite Oral or Nutr Support Intake Evidenced by : 10-25% meals Oral or Nutrition Support Intake Status : Active JACQUELYN CHERY RD, ADRIENNE - 06/27/2021 14:52 EDT Nutrition Interventions Meals and Snacks : Mechanically altered diet Nutrition Supplement Therapy : Commercial beverage JACQUELYN CHERY RD, ADRIENNE - 06/27/2021 14:52 EDT Monitoring/Evaluation Energy Intake : Total energy intake Food Intake : Amount of food Protein Intake : Total protein Weight Status : Weight Maintanence Gastrointestinal Function : Bowel Function JACQUELYN CHERY RD, LD - 06/27/2021 14:52 EDT Nutrition Recommendations Dietitian Recommendations : 1. RD to change diet to mech soft (ground meat with gravy). Continue Ensure shakes TID (janessa). Goal: >50 % meals/ONS 2. Monitor wt 1-2x weekly Goal: avoid significant unintended wt loss Nutrition risk: moderate JACQUELYN CHERY, RD, LD - 06/27/2021 14:52 EDT Electronically signed by Keven, [facility] Conversion Journeyman Mechanic Cerner at 12/18/2022 9:06 AM CDT documented in this encounter Plan of Treatment Not on file documented as of this encounter Visit Diagnoses Not on filedocumented in this encounter
--- OUTSIDE RECORDS SUMMARY | 2025-03-08 13:19 | XMS_ITS | Encounter Summary ---
Author Organization [employer] ([place], [place], [place], [place]) Address [address] [place] [address] Care Team Providers Care Educational Assistant Teacher Name Role Phone Unavailable Primary Care Provider Unavailabl e Encounter Details Date Type Department Care Team (Late st Contact Info) Description 07/24/2021 Transcribed Document [facility] [place] Family Medicine [address] [place] [address] ProviderTg MD [address] [place] [address] Social History Tobacco Use Types Packs/Day Years Used Date Smoking Tobacco: Never Assessed Comments Unknown Sex and Gender Information Value Date Recorded Sex Assigned at Not on file Legal Sex Female 2:39 PM CDT Gender Identity Not on file Sexual Orientation Not on file documented as of this encounter Miscellaneous Notes * Cerner Conversion Note - Historical ProviderMD - 07/24/2021 5:00 PM ICT PROGRAMMER Chart Check - Review Order Profile Entered On: 07/24/2021 18:01 EST Performed On: 07/24/2021 17:00 EST by RACHEL GERBER RN Chart Check Powerplans Initiated/Discontinued as Appropriate : Yes All Active Orders Reviewed : Yes RACHEL GERBER RN - 07/24/2021 18:00 EST Electronically signed by Keven [facility] Conversion Engineering And Scientific Programmer Cerner at 12/18/2022 9:08 AM CDT documented in this encounter Plan of Treatment Not on file documented as of this encounter Visit Diagnoses Not on filedocumented in this encounter
--- OUTSIDE RECORDS SUMMARY | 2025-03-08 13:19 | XMS_ITS | Encounter Summary ---
Author Organization [employer] ([place], [place], [place], [place]) Address [address] [place] [address] Care Team Providers Care Dianeticist Name Role Phone Unavailable Primary Care Provider Unavailabl e Encounter Details Date Type Department Care Team (Late st Contact Info) Description 06/25/2021 Transcribed Document [facility] [place] Family Medicine [address] [place] [address] ProviderTg MD [address] [place] [address] Social History Tobacco Use Types Packs/Day Years Used Date Smoking Tobacco: Never Assessed Comments Unknown Sex and Gender Information Value Date Recorded Sex Assigned at Not on file Legal Sex Female 2:39 PM CDT Gender Identity Not on file Sexual Orientation Not on file documented as of this encounter Miscellaneous Notes * Cerner Conversion Note - Tg ProviderMD - 06/25/2021 4:04 PM CDT Patient: SUDHA SOLORZANO Age: 75 Years Sex: Female : 1945 Subjective Patient continued doing well this morning has no acute complaints. She is still very debilitated and requires a lot of assistance with PT but has made some improvement. Epistaxis has resolved. No other acute events overnight. Vital Signs T: 36.7 ??C TMIN: 36.5 ??C TMAX: 36.9 ??C HR: 98(Monitored) RR: 18 BP: 131/83 SpO2: 97% Oxygen Settings (Last) Oxygen Therapy Mode: Room air (06/25/21 10:36:00) Oxygen Flow Rate: 1 Liter/Min (06/19/21 15:00:00) Intake & Output Totals Last 24 Hours (7a-7a) Input Total: 290 mL Output Total: 0 mL Balance: 290 mL Physical Exam General: Chronically ill appearing female who is doing well with continuing improved mentation. HEENT: Epistaxis has resolved Cardiac: RRR no m/r/g. 2/4 radial pulses [...] ongoing bleeding with blood loss anemia. - ID following recommending Minocycline 100mg q12 hours and Atovaquone while on prednisone taper with >10mg. [...] normal from 2017 -ECHO noted, EF 35% - On Carvedilol, [...] 18. Hx of non-Hodgkin's lymphoma Disposition: Patient is eating well after CorPak removal few days ago. Hemoglobin is remained stable after stopping therapeutic Lovenox. Patient medically stable for discharge once SNF facility found. Case management continue to reach out to facilities. VTE Prophylaxis - Medical Sequential Compression Device [...] Test Name Test Result Date/Time Sodium Level 136 mmol/L 06/25/2021 06:54 EDT Potassium Level 4.9 mmol/L 06/25/2021 06:54 EDT Chloride Level 106 mmol/L 06/25/2021 06:54 EDT Carbon Dioxide Level 21 mmol/L 06/25/2021 06:54 EDT Anion Gap 14 06/25/2021 06:54 EDT Glucose Level 80 mg/dL 06/25/2021 06:54 EDT Blood Urea Nitrogen 21 mg/dL 06/25/2021 06:54 EDT Creatinine Level 0.80 mg/dL 06/25/2021 06:54 EDT eGFR >60 mL/min/1.73m2 06/25/2021 06:54 EDT eGFR NonAfrican >60 mL/min/1.73m2 06/25/2021 06:54 EDT Bun/Creatinine 26.2 (High) 06/25/2021 06:54 EDT Calcium Level 8.3 mg/dL (Low) 06/25/2021 06:54 EDT Magnesium Level 2.0 mg/dL 06/25/2021 06:54 EDT Device Comment 1 Notified Nurse RBV 06/25/2021 06:11 EDT Device Comment 1 Notified Nurse RBV 06/24/2021 23:36 EDT Device Comment 1 Notified MD RBV 06/24/2021 16:56 EDT Glucose POC2 183 mg/dL (High) 06/25/2021 10:29 EDT Glucose POC2 81 mg/dL 06/25/2021 06:11 EDT Glucose POC2 100 mg/dL 06/24/2021 23:36 EDT Glucose POC2 132 mg/dL (High) 06/24/2021 16:56 EDT WBC 8.5 K/uL 06/25/2021 06:54 EDT RBC 2.50 Million/uL (Low) 06/25/2021 06:54 EDT Hgb 8.1 g/dL (Low) 06/25/2021 06:54 EDT Hct 25.0 % (Low) 06/25/2021 06:54 EDT MCV 100.0 fL (High) 06/25/2021 06:54 EDT MCH 32.4 pg (High) 06/25/2021 06:54 EDT MCHC 32.4 Gram/dL 06/25/2021 06:54 EDT Platelet Count 152 K/uL (Low) 06/25/2021 06:54 EDT MPV 11.6 fL 06/25/2021 06:54 EDT RDW >25.0 % (High) 06/25/2021 06:54 EDT nRBC 0.560 (High) 06/25/2021 06:54 EDT Slide Review No 06/25/2021 06:54 EDT documented in this encounter Plan of Treatment Not on file documented as of this encounter Visit Diagnoses Not on filedocumented in this encounter
--- OUTSIDE RECORDS SUMMARY | 2025-03-08 13:19 | XMS_ITS | Encounter Summary ---
Author Organization [employer] ([place], [place], [place], [place]) Address [address] [place] [address] Care Team Providers Care Logging Operations Inspector Name Role Phone Unavailable Primary Care Provider Unavailabl e Encounter Details Date Type Department Care Team (Late st Contact Info) Description 06/20/2021 Transcribed Document [facility] Radiology [address] [place] [address] Margo Alvarez MD [address] [place] [id number] Social History Tobacco Use Types Packs/Day Years Used Date Smoking Tobacco: Never Assessed Comments Unknown Sex and Gender Information Value Date Recorded Sex Assigned at Not on file Legal Sex Female 2:39 PM CDT Gender Identity Not on file Sexual Orientation Not on file documented as of this encounter Miscellaneous Notes * Cerner Conversion Note - Margo Alvarez MD - 06/20/2021 4:09 PM EDT Patient: SUDHA SOLORZANO Age: 75 years Sex: Female : 1945 Associated Diagnoses: None Author: MARGO ALVAREZ MD-INT Basic Information Date of encounter 06/20/21 Patient is more awake and answers simple questions Denies headache No fever No nausea Physical Examination VS/Measurements Vitals Signs (last 24 hrs) Last Charted Minimum Maximum Temp 98.5 (JUN 20 11:00) 97.8 (JUN 19 18:00) 98.5 (JUN 20 11:00) Mon HR 104 (JUN 20 11:00) 71 (JUN 19 18:00) 104 (JUN 20 11:00) Resp Rate 20 (JUN 20 11:00) 18 (JUN 19 18:00) 20 (JUN 20 11:00) SBP 139 (JUN 20 11:00) 139 (JUN 19 18:00) 139 (JUN 19 18:00) DBP 87 (JUN 20 11:00) 67 (JUN 19 18:00) 87 (JUN 20 11:00) SpO2 97 (JUN 20:00) 97 (JUN 20:) 100 (JUN 19:) General: No acute distress, on HF, alert but cannot check orientation. Answers simple questions, Not alert and oriented. Eye: Normal conjunctiva. Sclera: Not icteric. HENT: Normocephalic. Neck: Supple, Non-tender. Respiratory: Lungs are clear to auscultation, Breath sounds are equal, Symmetrical chest wall expansion, with scattered rhonchi bilateral, hsa a port on left side of chest. Cardiovascular: Regular rhythm, No edema. Gastrointestinal: Soft, Non-tender, Non-distended, Normal bowel sounds. Musculoskeletal: No tenderness, No swelling, No deformity. Integumentary: Warm, Rex, Moist. Neurologic: Alert, follows simple commands, Not oriented. Psychiatric: cannot check. Review / Management Labs reviewed. Impression and Plan Acute hypoxemic repsiratory failure secondary to covid and concomitant PE [...] and follows simple commands though not communicative. Continuous EEG in progress (concern for potential epileptiform discharges in fronto temproal area) and neuro following Sepsis due to UTI and COVID-19 pneumonia, [...] living children son Shawn daughter Harley . Dysphagia Placed Corpak for Tube feeding and Meds due to her mentation Currently speech has evaluated and on pureed diet though mental status fluctuation might limit adequate po intake. Continue with feeding with assistance and observe and on tube feeds for now and if doing better cycle tube feeds and advance intake during the day. DISPOSITSION : Uncertain at this time but if she makes continued steady progress anticipate snf at discharge. Patient admitted with covid and acute respiratory failure though oxygenation is improved . However with altered mentation and poor responsivenss (some better now) and currently on tube feeds but starting pureed as tolerated with some progress in mentation though not closer to her baseline. Eventual transition to OAC when po intake adequate and off corpak with no interventions needed. Resumed PT/neuro evaluating with continuous EEG as well due to concern for epileptiiform discharges noted. Also called and discussed with son Shawn Solorzano and updated him on 06/19 Discussed with nursing and time spent with above 30 minutes. Complex case. documented in this encounter Plan of Treatment Not on file documented as of this encounter Visit Diagnoses Not on filedocumented in this encounter
--- OUTSIDE RECORDS SUMMARY | 2025-03-08 13:19 | XMS_ITS | Encounter Summary ---
Author Organization [employer] ([place], [place], [place], [place]) Address [address] [place] [address] Care Team Providers Care Security System Administrator Name Role Phone Unavailable Primary Care Provider Unavailabl e Encounter Details Date Type Department Care Team (Late st Contact Info) Description 06/19/2021 Transcribed Document [facility] [place] Family Medicine [address] [place] [address] ProviderTg MD [address] [place] [address] Social History Tobacco Use Types Packs/Day Years Used Date Smoking Tobacco: Never Assessed Comments Unknown Sex and Gender Information Value Date Recorded Sex Assigned at Not on file Legal Sex Female 2:39 PM CDT Gender Identity Not on file Sexual Orientation Not on file documented as of this encounter Miscellaneous Notes * Cerner Conversion Note - Tg Jones MD - 06/19/2021 1:22 PM CDT Patient: SUDHA TIMMONS Age: 75 [...] Hx available 06/19 - no Hx available ROS - not available - discussed [...] Q3H, PRN: Tachycardia Lovenox: 115 mg, SubCutaneous, [id number] MiraLax: 17 Gram, Oral, Daily Pepcid: 20 [...] micafungin: 100 mg, 100 mL/Hr, IV Piggyback, [id number] oxyCODONE: 5 mg, Oral, Q4H, PRN: Pain [...] mL inj 115 mg 1.15 mL, SubCutaneous, [id number] famotidine 20 mg tab 20 mg 1 Tab, Oral, Daily guaiFENesin 200 mg/10 mL liq 400 mg 20 mL, Oral, Q4HInt insulin regular 1 unit/0.01 mL inj 3mL Scale A, SubCutaneous, Q6H lactobacillus acidophilus cap 1 Cap, Oral, Daily micafungin sodium 100 mg, IV Piggyback, [id number] polyethylene glycol 3350 pwd 17 g pkt [...] Medical Hip pain, right / SNOMED CT 3477375316 / Confirmed At risk for sleep apnea / IMO 08182052 / Confirmed At risk for violence / IMO 50818461 / Confirmed Concussion / SNOMED CT 5669899445 / Confirmed concussion with loss of memory+ Disease caused by 2019 novel coronavirus / SNOMED CT 9810626612 / Confirmed Problem added by a rule: [id number]. Fall / SNOMED CT 4064135 / Confirmed HTN (hypertension) / SNOMED CT 8450737335 / Confirmed Depression / SNOMED CT 7183787032 / Confirmed Numbness and tingling / SNOMED CT 3176003545 / Confirmed numbness and tingling right thigh area to toes Osteoarthritis / SNOMED CT 4438332273 / Confirmed Pain / SNOMED CT 49835053 / Confirmed right buttocks pain Leg pain, right / SNOMED CT 483540104 / Confirmed sleep apnea / SNOMED CT 868479838 / Confirmed Insomnia / SNOMED CT 839846714 / Confirmed Tremor / SNOMED CT 68045954 / Confirmed, Active Problems (17) At risk [...] Charted Minimum Maximum Temp H 99.8 (JUN 19:) 97.8 (JUN 19 08:00) H 99.8 (JUN 19:) Mon HR 61 (JUN 19:) 61 (JUN 19:03) 105 (JUN 18 15:39) Resp Rate 18 (JUN 19:03) 18 (JUN 18 18:00) 20 (JUN 18 15:39) SBP 129 (JUN 19:03) 126 (JUN 19 08:00) H 151 (JUN 18 15:39) DBP 81 (JUN 19:) 72 (JUN 19 08:00) 83 (JUN 18 15:39) MAP 99 (JUN 19 11:03) 88 (JUN 19 08:00) 115 (JUN 18 15:39) SpO2 100 (JUN 19:) 98 (JUN 19 08:00) 100 (JUN 18 18:00) General: mild distress, On oxygen Eye: Pupils are equal, round and reactive [...] charted values) WBC 8.5 (JUN 19) 8.2 (MAY 20) H 12.9 (MAY 19) H 14.3 (MAY 18) HB L 8.1 (MAY 21) L 8.9 (MAY 20) L 8.9 (MAY 19) L 9.4 (MAY 18) HCT L 25.1 (MAY 21) L 27.7 (OCT 20) L 27.7 (MAY 19) L 29.5 (MAY 18) Plt 190 (JUN 19) 210 (MAY 20) 206 (MAY 19) 201 (MAY 19) Na 145 (JUN 19) 145 (MAY 20) 143 (MAY 19) 144 (MAY 18) K 5.1 (JUN 19) 5.0 (MAY 20) 4.7 (MAY 19) 5.1 (MAY 18) Cl H 116 (JUN 19) H 116 (MAY 20) H 115 (MAY 19) H 117 (MAY 18) CO2 27 (MAY 21) 26 (OCT 20) 25 (OCT 19) 24 (MAY 18) BUN H 25 (JUN 19) 21 (OCT 20) H 23 (MAY 19) H 26 (MAY 18) Cr 0.60 (JUN 19) 0.60 (MAY 20) 0.70 (OCT 19) 0.80 (OCT 18) Glu R H 136 (JUN 19) H 116 (MAY 20) H 141 (MAY 19) H 214 (MAY 18) Ca L 8.0 (JUN 19) 8.5 (MAY 20) L 8.2 (MAY 19) L 8.3 (MAY 18) Lactic 1.6 (MAY 19) 1.0 (MAY 09) PT 11.4 (MAY 10) 11.4 (MAY 09) 11.4 (JUN 07) INR 1.1 (MAY 10) 1.1 (MAY 09) 1.1 (MAY 09) PTT 23.2 (MAY 09) AST 26 (MAY 21) 29 (OCT 20) 36 (OCT 19) H 87 (OCT 15) ALT 28 (OCT 21) 27 (OCT 20) 22 (OCT 19) 24 (OCT 15) ALK P 106 (JUN 19) 110 (OCT 20) 130 (OCT 19) 88 (JUN 13) T Bili 0.3 (JUN 19) 0.4 (JUN 18) 0.3 (JUN 17) 0.4 (JUN 13) PTN L 4.4 (JUN 19) L 4.5 (JUN 18) L 4.7 (JUN 17) L 5.0 (JUN 13) ALB L 2.1 (JUN 19) L 2.2 (JUN 18) L 2.1 (JUN 17) L 2.3 (JUN 13) Troponin H 0.094 (JUN 18) H [...] -- Hypertension CXR worse to me - continue micafungin Changed Rocephin to Zosyn (change made 06/19) documented in this encounter Plan of Treatment Not on file documented as of this encounter Visit Diagnoses Not on filedocumented in this encounter
--- OUTSIDE RECORDS SUMMARY | 2025-03-08 13:19 | XMS_ITS | Encounter Summary ---
Author Organization [email or web address] ([place], [place], [place], [place]) Address [address] [place] [address] Care Team Providers Care Trim Setter Helper Name Role Phone Unavailable Primary Care Provider Unavailabl e Encounter Details Date Type Department Care Team (Late st Contact Info) Description 06/24/2021 Transcribed Document [facility] [place] Family Medicine [address] [place] [address] ProviderTg MD [address] [place] [address] Social History Tobacco Use Types Packs/Day Years Used Date Smoking Tobacco: Never Assessed Comments Unknown Sex and Gender Information Value Date Recorded Sex Assigned at Not on file Legal Sex Female 2:39 PM CDT Gender Identity Not on file Sexual Orientation Not on file documented as of this encounter Miscellaneous Notes * Cerner Conversion Note - Tg ProviderMD - 06/24/2021 5:00 AM CDT Chart Check - Review Order Profile Entered On: 06/24/2021 3:46 EDT Performed On: 06/24/2021 5:00 EDT by Magda Dawson Rn Chart Check Powerplans Initiated/Discontinued as Appropriate : Yes All Active Orders Reviewed : Yes Magda Dawson Rn - 06/24/2021 3:46 EDT documented in this encounter Plan of Treatment Not on file documented as of this encounter Visit Diagnoses Not on filedocumented in this encounter
--- OUTSIDE RECORDS SUMMARY | 2025-03-08 13:19 | XMS_ITS | Encounter Summary ---
Author Organization [employer] ([place], [place], [place], [place]) Address [address] [place] [address] Care Team Providers Care Nurse Extern Name Role Phone Unavailable Primary Care Provider Unavailabl e Encounter Details Date Type Department Care Team (Late st Contact Info) Description 07/23/2021 Transcribed Document [facility] [place] Family Medicine [address] [place] [address] ProviderTg MD [address] [place] [address] Social History Tobacco Use Types Packs/Day Years Used Date Smoking Tobacco: Never Assessed Comments Unknown Sex and Gender Information Value Date Recorded Sex Assigned at Not on file Legal Sex Female 2:39 PM CDT Gender Identity Not on file Sexual Orientation Not on file documented as of this encounter Miscellaneous Notes * Cerner Conversion Note - Tg ProviderMD - 07/23/2021 5:38 PM AUTOMATIC OPERATOR On Going Discharge Planning Entered On: 07/23/2021 17:40 EST Performed On: 07/23/2021 17:38 EST by PEDRO MARLOW RN-Fleet Manager/DispatchSolar Development Engineer Progress Note Discharge Arrangements : Patient Post-Acute [...] Condition of Patient Patient Discharge Goal : care home facility Is the Patient Meeting Medical Necessity : Yes Physician Agreeable to Move Forward with D/C Plan? : Yes Did you Attend Multidisciplinary Rounds? : Yes PEDRO MARLOW RN-Fleet Manager/Dispatch - 07/23/2021 17:38 EST Narrative Progress Note Narrative Progress Note : RAR Moderate ELOS: 2 days HD#2 Adm 06/07 - 06/28/2021 Covid PNA [place] 75 [place]. 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 Consult: Nephrology 07/23 Hugo Cath Placed 07/23 1st HD DCP: Anticipate patient will discharge back to [place] [facility]. Historical Progress Note : RAR Moderate ELOS: 2 days HD#1 Adm 06/07 - 06/28/2021 Covid PNA PE 75 [place]. 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 Consult: Nephrology Patient lives with her 98 year old father Sai [phone] and her son Shawn [phone] in [place] Her PCP is Dr. Binh Berg. Patient was ADL independent prior to her admission in May. DME as listed. DCP: Anticipate patient will discharge back to [facility]. PEDRO MARLOW RN-Fleet Manager/Dispatch - 07/22/21 17:42:24 PEDRO MARLOW RN-Fleet Manager/Dispatch - 07/23/2021 17:38 EST documented in this encounter Plan of Treatment Not on file documented as of this encounter Visit Diagnoses Not on filedocumented in this encounter
--- OUTSIDE RECORDS SUMMARY | 2025-03-08 13:19 | XMS_ITS | Encounter Summary ---
Author Organization [employer] ([place], [place], [place], [place]) Address [address] [place] [address] Care Team Providers Care Plant Electrical Engineer Name Role Phone Unavailable Primary Care Provider Unavailabl e Encounter Details Date Type Department Care Team (Late st Contact Info) Description 07/23/2021 Transcribed Document [facility] [place] Family Medicine [address] [place] [address] ProviderTg MD [address] [place] [address] Social History Tobacco Use Types Packs/Day Years Used Date Smoking Tobacco: Never Assessed Comments Unknown Sex and Gender Information Value Date Recorded Sex Assigned at Not on file Legal Sex Female 2:39 PM CDT Gender Identity Not on file Sexual Orientation Not on file documented as of this encounter Miscellaneous Notes * Cerner Conversion Note - Historical ProviderMD - 07/23/2021 4:10 PM MEDICAL COST CONSULTANT Attempt to Treat, PT Entered On: 07/23/2021 16:11 EST Performed On: 07/23/2021 16:10 EST by KERI PAULINO PT Student Attempt to Treat Unable to Treat Due To : Patient Unavailable KERI PAULINO PT Student - 07/23/2021 16:10 EST Inability to Treat Comment : Per DUNCAN Flores pt was off the unit for dialysis. PT will hold on this pt for now and will check back as time allows. PT has reviewed and agrees with note. RENY BLAIR, PT - 07/23/2021 16:13 EST documented in this encounter Plan of Treatment Not on file documented as of this encounter Visit Diagnoses Not on filedocumented in this encounter
--- OUTSIDE RECORDS SUMMARY | 2025-03-08 13:19 | XMS_ITS | Encounter Summary ---
Author Organization [employer] ([place], [place], [place], [place]) Address [address] [place] [address] Care Team Providers Care Development Associate Name Role Phone Unavailable Primary Care Provider Unavailabl e Encounter Details Date Type Department Care Team (Late st Contact Info) Description 08/12/2021 Transcribed Document [facility] [place] Family Medicine [address] [place] [address] ProviderTg MD [address] [place] [address] Social History Tobacco Use Types Packs/Day Years Used Date Smoking Tobacco: Never Assessed Comments Unknown Sex and Gender Information Value Date Recorded Sex Assigned at Not on file Legal Sex Female 2:39 PM CDT Gender Identity Not on file Sexual Orientation Not on file documented as of this encounter Miscellaneous Notes * Cerner Conversion Note - Tg Jones MD - 08/12/2021 8:31 PM PRODUCTION FINISHER Patient: SUDHA TIMMONS Age: 75 years Sex: Female : 1945 Associated Diagnoses: Depression Author: DANA WILSON MD Basic Information History source: Patient, EMS. Arrival mode: Ambulance. History limitation: None. Additional information: Chief Complaint from Nursing Triage Note : Chief Complaint 08/12/2021 19:34 EST Chief Complaint From [facility] with reports of SI. Stated Something is in her mind. and Something is wrong, to nurse at facility. Denies SI, HI. Pleasant/calm during triage. Baseline confusion. . History of Present Illness This is a 75-year-old female with a past medical history significant for depression, bipolar disease, hypertension, hyperlipidemia who presents to the emergency department for depression. Patient denies any suicidal ideation or thoughts of wanting to hurt herself. [facility] were concerned about possible thoughts of self-harm, but patient adamantly denies that she does not want to hurt herself at all and simply wanted to talk to someone today about her depression. She says that she is very worried about money which is the primary source of her depression at this time. She felt anxious earlier today about some of the social stressors in her life, but does not have any suicidal thoughts or homicidal thoughts. She is alert, oriented to self, date of , hospital, holiday, but not year. She has chronic right hip pain, but no other pain including no chest pain, shortness of breath, abdominal pain. She does not have any dysuria, but does note that she has not been urinating much today. Review of Systems Additional review of systems information: 10 point review of systems reviewed and negative except as stated in history of present illness . Health Status Allergies: Allergic Reactions (Selected) Severity Not Documented Anaprox- Rash. Codeine- No reactions were documented. Latex- Itching. Naproxen- No reactions were documented.. Medications: (Selected) Prescriptions Prescribed Coreg 3.125 mg oral tablet: 1 Tab, Oral, BID, 60 Tab, 0 Refill(s) Documented Medications Documented Aspirin Low Dose 81 mg oral delayed release tablet: 1 Tab, Oral, Daily, 0 Refill(s) Colace 100 mg oral capsule: 1 Cap, Oral, BID, PRN: for constipation, 20 Cap, 0 Refill(s) Depakote 250 mg oral delayed [...] Tab, Oral, Daily, 30 Tab, 0 Refill(s) pantoprazole 40 mg oral delayed release tablet: 1 Tab, Oral, Daily, 30 Tab, 0 Refill(s) polyethylene glycol 3350 oral powder for reconstitution: 17 Gram, Oral, Daily, 0 Refill(s), per nurse's notes. Immunizations: Per nurse's notes. Past Medical/ Family/ Social History Medical history Reviewed as documented in chart. Surgical history: Reviewed as documented in chart. Family history: Reviewed as documented in chart. Social history: Reviewed as documented in chart. Problem list: Active Problems (17) At risk [...] per nurse's notes. Physical Examination Vital Signs Vital Measurements 08/12/2021 19:34 EST Systolic Blood Pressure 129 mmHg Diastolic Blood Pressure 63 mmHg Temperature Source Temporal artery scanning Temperature Mode Fahrenheit Temperature, Fahrenheit 98.0 Deg F Clinical Temperature, C 36.7 Deg C Peripheral Pulse Rate 100 bpm Respiratory Rate 19 Breaths/Min Oxygen Saturation 100 % Oxygen Therapy Mode Room air . Per nurse's notes. General: Alert, no acute distress. Skin: Warm, dry. Head: Normocephalic. Neck: Supple. Ears, nose, mouth and throat: Oral mucosa moist. Cardiovascular: Regular rate and rhythm, No murmur. Respiratory: Lungs are clear to auscultation, respirations are non-labored, breath sounds are equal. Gastrointestinal: Soft, Nontender, Non distended. Neurological: Normal speech observed, normal coordination observed, Alert and oriented x3. Psychiatric: Cooperative. Medical Decision Making Documents reviewed: Emergency department nurses' notes, prior records. Results review: Lab results : Lab Results 08/12/2021 20:01 EST Sodium Level 140 mmol/L Potassium Level 4.0 mmol/L Chloride Level 107 mmol/L Carbon Dioxide Level 27 mmol/L Anion Gap 10 Glucose Level 114 mg/dL HI Blood Urea Nitrogen 4 mg/dL LOW Creatinine Level 0.70 mg/dL eGFR >60 mL/min/1.73m2 eGFR NonAfrican >60 mL/min/1.73m2 Bun/Creatinine 5.7 LOW Calcium Level 8.6 mg/dL WBC 5.7 K/uL RBC 2.22 Million/uL LOW Hgb 7.7 g/dL LOW Hct 24.1 % LOW MCV 108.6 fL HI MCH 34.7 pg HI MCHC 32.0 Gram/dL LOW Platelet Count 412 K/uL HI MPV 8.9 fL LOW RDW 17.9 % HI Urine Type. U CleanCatch Urine Color Yellow Urine Appearance Cloudy Urine Specific [place] 1.012 Urine pH Dipstick 6.0 Urine Leukocyte Esterase Negative Urine Nitrite Negative Urine Protein Dipstick Trace Urine Glucose Dipstick Negative Urine Ketones Dipstick Negative Urine Urobilinogen Dipstick 0.2 EU/dL Urine Bilirubin Dipstick Negative Urine Blood Dipstick Negative Ur WBC 0-2 /HPF Ur Bacteria Trace Ur Mucous 2+ Ur Hyaline Casts 2-5 /LPF Urine Culture if Indicated Not Indicated . Notes: Patient denies any homicidal or suicidal thoughts here to multiple different staff including myself. She does not have a UTI and no clinically significant metabolic derangement that would cause increased confusion. She states she wants to go back home. Certainly outpatient psychiatric counseling would be appropriate in this patient with known depression. [facility] Impression and Plan Diagnosis Depression - Discharge, Medical Plan Condition: Stable. Disposition: Discharged Admit/Transfer/Discharge: Discharge (Order): Start: 08/12/2021 21:35 EST, Discharge to: Home. Patient was given the following educational materials: Major Depressive Disorder, Adult. Follow up with: ; Follow up with primary care provider Within 2 to 3 days Follow-up with your primary care provider in 2-3 days for reevaluation. Return to the emergency department for any acute worsening of symptoms or acute new concerns.; Follow-up with counselor within the next week for reevaluation and further discussion of your depression. Within 1 week. Counseled: Patient, Regarding diagnosis, Regarding diagnostic results, Regarding treatment plan, Patient indicated understanding of instructions. documented in this encounter Plan of Treatment Not on file documented as of this encounter Visit Diagnoses Not on filedocumented in this encounter
--- OUTSIDE RECORDS SUMMARY | 2025-03-08 13:19 | XMS_ITS | Encounter Summary ---
Author Organization [employer] ([place], [place], [place], [place]) Address [address] [place] [address] Care Team Providers Care Rehabilitation Counsellor Name Role Phone Unavailable Primary Care Provider Unavailabl e Encounter Details Date Type Department Care Team (Late st Contact Info) Description 07/22/2021 Transcribed Document [facility] [place] [address] [place] [address] ProviderTg MD [address] [place] [address] Social History Tobacco Use Types Packs/Day Years Used Date Smoking Tobacco: Never Assessed Comments Unknown Sex and Gender Information Value Date Recorded Sex Assigned at Not on file Legal Sex Female 2:39 PM CDT Gender Identity Not on file Sexual Orientation Not on file documented as of this encounter Miscellaneous Notes * Cerner Conversion Note - Historical ProviderMD - 07/22/2021 1:20 AM TANNING SALON ATTENDANT Provider Notification Entered On: 07/22/2021 1:21 EST Performed On: 07/22/2021 1:20 EST by CATHY OCONNELL RN Provider Notification Provider Notified, Subsequent Call : 07/22/2021 1:20 EST Provider Notified Name : LAURE COVINGTON DO-INT Provider Notified Time : 07/22/2021 1:15 EST Results to Provider Comment : RN spoke with MD after speaking with poison control. poison control reccomended Q6h lithium levels and consult to nephrology. CATHY OCONNELL RN - 07/22/2021 1:20 EST documented in this encounter Plan of Treatment Not on file documented as of this encounter Visit Diagnoses Not on filedocumented in this encounter
--- OUTSIDE RECORDS SUMMARY | 2025-03-08 13:19 | XMS_ITS | Encounter Summary ---
Author Organization [employer] ([place], [place], [place], [place]) Address [address] [place] [address] Care Team Providers Care Merchandise Manager Name Role Phone Unavailable Primary Care Provider Unavailabl e Encounter Details Date Type Department Care Team (Late st Contact Info) Description 06/19/2021 Transcribed Document [facility] [place] [address] [place] [address] ProviderTg MD [address] [place] [address] Social History Tobacco Use Types Packs/Day Years Used Date Smoking Tobacco: Never Assessed Comments Unknown Sex and Gender Information Value Date Recorded Sex Assigned at Not on file Legal Sex Female 2:39 PM CDT Gender Identity Not on file Sexual Orientation Not on file documented as of this encounter Miscellaneous Notes * Cerner Conversion Note - Tg ProviderMD - 06/19/2021 3:00 PM CDT On Going Discharge Planning Entered On: 06/19/2021 15:03 EDT Performed On: 06/19/2021 15:00 EDT by Patsy Koehler V, Airplane Refueler Steward/Stewardess Tourist Class Care Management Progress Note Discharge Arrangements : Patient Post-Acute Information Patient Name: SUDHA TIMMONS Gender: Female : [birth year] Age: 75 Years No Post-Acute Placement(s) Listed No Post-Acute Service(s) Listed No Cur[place] Referral(s) Listed Discharge Options Discussed with Patient : DME, Home Health, Short term rehabilitation Barriers to Discharge Identified : Clinical Condition of Patient Patient Discharge Goal : longterm facility List/Info Provided Pt/Fam/Support Person : Inpatient rehabilitation facility, longterm facilities Is the Patient Meeting Medical Necessity : Yes Physician Agreeable to Move Forward with D/C Plan? : Yes Did you Attend Multidisciplinary Rounds? : Yes Patsy Koehler V, Airplane Refueler [facility] [place] - 06/19/2021 15:00 EDT Narrative Progress Note Narrative Progress Note : HD#11, ELOS-5 RSR-moderate, Boost-5 COVID+. On 2L NC. Still has mittens. Corpak for TF. ST evaluated and recommended pureed diet and TF. On IV zosyn. HGB at 8.9. Barriers to rehab placement: mittens and corpak and no PT/OT evaluations. CM has sent rehab referrals via [facility]. CM to follow. Historical Progress Note : HD#10, ELOS-5 RSR-moderate, Boost-5 COVID+.Now on 4L NC. Patient awake, but remains confused and unable to converse appropriately per MD. Still in restraints. Patient passed her FEES. Diet advance to puree. Hopefully, her corpak will be discontinued soon. Brain MRI today. Still on IV abx. WBC and LDH trending down. CM sent updated clinical/therapy notes to [facility] and [facility] for possible rehab placement. CM to follow. Patsy Koehler V, Airplane Refueler [facility] - 06/18/21 15:20:04 HD#9, ELOS-5 RSR-moderate, Boost-5 COVID+. On 6L HFNC. Ongoing confusion. Restraints continued. On IV rocephin, micafuntgin and dexamethazone. Tolerating TF via corpak. DCP-SNF/[facility] for rehab pending medical progress. Patsy Koehler V Airplane Refueler [facility] - 06/17/21 12:01:09 HD#8, ELOS-5 RSR-moderate, Boost-5 COVID+. On 5L HFNC. Ongoing confusion and attempting to pull at lines. In restraints. Leukocytosis worsening, LDH and d-dimer trending up, ferritin trending down. Tolerating TF via corpak. MD plans to get a neurology consult due to pt's confusion. CM to follow DCP-SNF for rehab pending medical progress. Patsy Koehler V, Airplane Refueler [facility] - 06/16/21 13:18:40 HD#5, ELOS-5 RSR-moderate, Boost-[address] Narda Sommer, patient with further worsening of respiratory failure. Tachycardia. Patient is criticcally ill and may need intubation. CR chest today. Patsy Koehler V Airplane Refueler Steward/Stewardess Tourist Class - 06/13/21 09:26:38 HD#5, ELOS-5 RSR-moderate, Boost-[address] Narda Sommer, patient with further worsening of respiratory failure. Tachycardia. Patient is critically ill and may need intubation. CR chest today showed Slightly worsening bilateral opacities. Pulmonary edema is not excluded. Corpak placed. CM to follow. DCP-pending on patient's medical progress. Patsy Koehler V Airplane Refueler Steward/Stewardess Tourist Class - 06/13/21 09:29:02 HD#4, ELOS-5 RSR-moderate, Boost-5 [...] SNF when medically ready. Patsy Koehler V Airplane Refueler Steward/Stewardess Tourist Class - 06/12/21 12:12:00 HD#4, ELOS-5 RSR-moderate, Boost-5 Patient currently on optiflow FiO2 70%, with continued increased confusion and fidgeting in the bed. ID and Pulm consulted and are making med adjustments. Per RN, patient with tachycardia the other night. DCP-[facility]/SNF pending medical progress. Patient lives with her 98 yo father and adult son. Patsy Koehler V Airplane Refueler Steward/Stewardess Tourist Class - 06/11/21 10:00:55 HD#4, ELOS-5 RSR-moderate, Boost-5 [...] yo father and adult son. Patsy Koehler V, Airplane Refueler Steward/Stewardess Tourist Class - 06/11/21 12:10:01 HD#3, ELOS-not recorded, RSR-moderate, Boost-4 Per MD, patient is clinical deconditioning from NC to optiflow at 60% Fi02 with increased confusion. ID, Cardiology and Pulm consulted. HIGH RISK FOR INTUBATION. Patient had a abnormal ECHO with PE. On IV cefazolin and IV steroids. CM sent referrals to [facility] and [facility] due to being COVID+ for rehab. CM to follow. Patsy Koehler V Airplane Refueler Steward/Stewardess Tourist Class - 06/10/21 10:25:43 HD#2, ELOS-not recorded, RSR-moderate, Boost-4 CM sent rehab referrals to [facility] and [facility] since they accept COVID+ patients. Currently patient is on 60% Fi02. PEr MD, patient's respiratory status is worsening. CM to follow pt's progress for dc planning. Patsy Koehler Social Worker Steward/Stewardess Tourist Class - 06/09/21 16:10:00 Patsy Koehler V Airplane Refueler Steward/Stewardess Tourist Class - 06/19/2021 15:00 EDT documented in this encounter Plan of Treatment Not on file documented as of this encounter Visit Diagnoses Not on filedocumented in this encounter
--- OUTSIDE RECORDS SUMMARY | 2025-03-08 13:19 | XMS_ITS | Encounter Summary ---
Author Organization [employer] ([place], [place], [place], [place]) Address [address] [place] [address] Care Team Providers Care Signal Maintainer Helper Name Role Phone Unavailable Primary Care Provider Unavailabl e Encounter Details Date Type Department Care Team (Late st Contact Info) Description 06/20/2021 Transcribed Document [facility] [place] [address] [place] [address] ProviderTg MD [address] [place] [address] Social History Tobacco Use Types Packs/Day Years Used Date Smoking Tobacco: Never Assessed Comments Unknown Sex and Gender Information Value Date Recorded Sex Assigned at Not on file Legal Sex Female 2:39 PM CDT Gender Identity Not on file Sexual Orientation Not on file documented as of this encounter Miscellaneous Notes * Cerner Conversion Note - Tg Jones MD - 06/20/2021 10:09 AM CDT DATE OF SERVICE: 06/19/2021 REPORT TYPE: EEG REFERRING PHYSICIAN: Meir Ochoa MD REPORT TITLE: Video Electroencephalogram Report STUDY DURATION: One day. HISTORY: This is a 75-year-old woman with altered mentation, being evaluated for recurrent seizures. EEG VIDEO MONITORING METHODOLOGY: Time-locked EEG-video monitoring was performed using the 32-channel [employer] monitoring system. The seizure detection computer was [...] SAMPLES: The recording was reviewed. During wakefulness, 7 Hz activity is seen posteriorly intermixed with 4 to 5 Hz theta waves and lower amplitude faster activity in the beta range with a wide distribution. Higher amplitude 2 to 3 Hz delta waves are seen in both hemispheres, most prominently at Fp1-F3-F7 and Fp2-F4-F8 with a field intermittently involving T7 and T8 respectively. Slow waves are seen more commonly in both hemispheres during periods of drowsiness. During sleep, sleep spindles are seen in both hemispheres. SPIKE DETECTION: The spike detection program was activated during the period of monitoring. There were occasional sharply contoured slow waves and sharp waves noted in both hemispheres at Fp1-F3-F7 and Fp2-F4-F8. The field of sharp waves was at times wider involving C3 and C4 respectively. At other times, sharp waves appeared more prominent at F7-T7 and F8-T8. EEG DIAGNOSES: This is an abnormal video EEG study because of: 1. Sharply contoured slow waves and sharp waves noted at Fp1-F3-F7 and Fp2-F4-F8, at times with a wider field of distribution. At times, sharp waves appeared more prominent at F8-T8 and F7-T7. 2. Focal slow wave activity noted at Fp1-F3-F7 and Fp2-F4-F8 with a field involving P7 and P8 respectively. 3. Slowing of the background. CLINICAL INTERPRETATION: The patient had no clinical [...] was noted consistent with mild diffuse cerebral dysfunction. /[id number] MD SHARLENE Light/ROSA / SHARLENE / MODL /[id number] documented in this encounter Plan of Treatment Not on file documented as of this encounter Visit Diagnoses Not on filedocumented in this encounter
--- OUTSIDE RECORDS SUMMARY | 2025-03-08 13:19 | XMS_ITS | Encounter Summary ---
Author Organization [employer] ([place], [place], [place], [place]) Address [address] [place] [address] Care Team Providers Care Sole Painter Name Role Phone Unavailable Primary Care Provider Unavailabl e Encounter Details Date Type Department Care Team (Late st Contact Info) Description 08/12/2021 Transcribed Document [facility] [place] Medicine [facility] [place] [address] ProviderTg MD [address] [place] [address] Social History Tobacco Use Types Packs/Day Years Used Date Smoking Tobacco: Never Assessed Comments Unknown Sex and Gender Information Value Date Recorded Sex Assigned at Not on file Legal Sex Female 2:39 PM CDT Gender Identity Not on file Sexual Orientation Not on file documented as of this encounter Miscellaneous Notes * Cerner Conversion Note - Tg ProviderMD - 08/12/2021 7:27 PM CORPORATE COMPLIANCE OFFICER ED Triage Entered On: 08/12/2021 19:36 EST Performed On: 08/12/2021 19:34 EST by Lacey Valle, alteration tailor apprentice Triage Across the Room Chief Complaint : From [facility] with reports of SI. Stated Something is in her mind. and Something is wrong, to nurse at facility. Denies SI, HI. Pleasant/calm during triage. Baseline confusion. Triage Date/Time : 08/12/2021 19:34 EST Lacey Valle Rn - 08/12/2021 19:34 EST DCP GENERIC CODE Tracking Acuity : 1 - Critical Tracking Group : [facility] ED Lacey Valle Rn - 08/12/2021 19:34 EST Mode of Arrival : Stretcher Transported to ED by : Ambulance/ALS EMS Service : [facility] PA To Room Via : Stretcher Accompanied By : Unaccompanied ED Vital Signs : Document Height & Weight : Document ED Allergies : Document ED Reason for Visit : Document Tetanus Immunization : Less than 5 years Lacey Valel Rn - 08/12/2021 19:34 EST Infectious Disease History Does patient have symptoms of COVID-19? : No Has the Patient Been Tested for COVID-19 in the last 14 days? : No, Patient stated Does the Patient state known exposure to a COVID-19 positive case in the last 14 days? : No Patient Vaccinated for COVID-19 : Fully vaccinated Lacey Valle Rn - 08/12/2021 19:34 EST Infectious Disease Risk Screening Grid Cough < 2 wks of unknown origin : NO Cough > 2 weeks : NO Blood in Sputum : NO Fever or self-reported Fever : NO Rash of unknown origin : NO Headache : NO Stiff neck : NO Night Sweats : NO Unexplained Weight Loss : NO Diarrhea (3 episode per day) : NO Lacey Valle Rn - 08/12/2021 19:34 EST Physical contact outside [place] in the last 30 days : No Hospitalized in [place] : No Infectious Disease History : Chicken pox/Shingles, Influenza, Measles, Mumps, Scarlet fever, Pertussis (Whooping cough) INF Disease TB Screening Calc : 0 INF Disease Recent Travel Calc : 0 Lacey Valle Rn - 08/12/2021 19:34 EST Vital Signs ED Temperature Source : Temporal artery scanning Temperature Mode : Fahrenheit Temperature, Fahrenheit : 98.0 Deg F ED Pain : No Clinical Temperature, C : 36.7 Deg C Oxygen Therapy Mode : Room air Peripheral Pulse Rate : 100 bpm Respiratory Rate : 19 Breaths/Min Systolic Blood Pressure : 129 mmHg Diastolic Blood Pressure : 63 mmHg Oxygen Saturation : 100 % Lacey Valle Rn - 08/12/2021 19:34 EST Allergy (As Of: 08/12/2021 19:36:45 EST) Allergies (Active) Anaprox Estimated Onset Date: Unspecified ; Reactions: Rash ; Created By: MANNY CHAEVZ RN; Reaction Status: Active ; Category: Drug ; Substance: Anaprox ; Type: Allergy ; Updated By: MANNY CHAVEZ RN; Reviewed Date: 08/12/2021 19:36 EST codeine Estimated Onset Date: Unspecified ; Created By: CASEY WOOD RN; Reaction Status: Active ; Category: Drug ; Substance: codeine ; Type: Allergy ; Updated By: CASEY WOOD RN; Reviewed Date: 08/12/2021 19:36 EST Latex Estimated Onset Date: Unspecified ; Reactions: Itching ; Created By: MANNY CHAVEZ RN; Reaction Status: Active ; Category: Other ; Substance: Latex ; Type: Allergy ; Updated By: MANNY CHAVEZ RN; Reviewed Date: 08/12/2021 19:36 EST naproxen Estimated Onset Date: Unspecified ; Created By: CASEY WOOD RN; Reaction Status: Active ; Category: Drug ; Substance: naproxen ; Type: Allergy ; Updated By: CASEY WOOD RN; Reviewed Date: 08/12/2021 19:36 EST Diagnosis Control ED (As Of: 08/12/2021 19:36:45 EST) Problems(Active) At risk for sleep apnea (IMO :23877193 ) Name of Problem: At risk for sleep apnea ; Recorder: SYSTEM, SYSTEM; Confirmation: Confirmed ; Classification: Medical ; Code: [id number] ; Last Updated: 08/05/2018 12:59 EST ; Life Cycle Date: 08/05/2018 ; Life Cycle Status: Active ; Vocabulary: IMO At risk for violence (IMO :65088786 ) Name of Problem: At risk for violence ; Recorder: SYSTEM, SYSTEM; Confirmation: Confirmed ; Classification: Medical ; Code: 45839276 ; Last Updated: 06/15/2021 10:50 EDT ; Life Cycle Date: 06/15/2021 ; Life Cycle Status: Active ; Vocabulary: IMO Bipolar I disorder, current or most recent episode depressed, with psychotic features with catatonia (SNOMED CT :05455786 ) Name of Problem: Bipolar I disorder, current or most recent episode depressed, with psychotic features with catatonia ; Recorder: CASEY WOOD RN; Confirmation: Confirmed ; Classification: Patient Stated ; Code: [id number] ; Contributor System: [facility] ; Last Updated: 08/12/2018 11:19 EST ; Life Cycle Date: 08/12/2018 ; Life Cycle Status: Active ; Vocabulary: SNOMED CT Concussion (SNOMED CT :6267409427 ) Name of Problem: Concussion ; Onset Date: 02/2016 ; Recorder: MANNY CHAVEZ RN; Confirmation: Confirmed ; Classification: Medical ; Code: [id number] ; Contributor System: [employer] ; Last Updated: 04/05/2019 14:41 EDT ; Life Cycle Status: Active ; Vocabulary: SNOMED CT ; Comments: 04/05/2019 14:41 - Maryam Dacosta-CI concussion with loss of memory+ Depression (SNOMED CT :4019049914 ) Name of Problem: Depression ; Recorder: MANNY CHAVEZ RN; Confirmation: Confirmed ; Classification: Medical ; Code: [id number] ; Contributor System: [facility] ; Last Updated: 06/05/2016 14:00 EDT ; Life Cycle Date: 06/05/2016 ; Life Cycle Status: Active ; Vocabulary: SNOMED CT Disease caused by 2019 novel coronavirus (SNOMED CT :7657704303 ) Name of Problem: Disease caused by 2019 novel coronavirus ; Recorder: SYSTEM, SYSTEM; Confirmation: Confirmed ; Classification: Medical ; Code: [id number] ; Last Updated: 06/07/2021 13:36 EDT ; Life Cycle Date: 06/07/2021 ; Life Cycle Status: Active ; Vocabulary: SNOMED CT ; Comments: 06/07/2021 13:36 - SYSTEM, SYSTEM Problem added by a rule: [id number]. Fall (SNOMED CT :0797681 ) Name of Problem: Fall ; Onset Date: 02/2016 ; Recorder: MANNY CHAVEZ RN; Confirmation: Confirmed ; Classification: Medical ; Code: 4140749 ; Contributor System: [facility] ; Last Updated: 06/05/2016 14:21 EDT ; Life Cycle Date: 06/05/2016 ; Life Cycle Status: Active ; Vocabulary: SNOMED CT H/O non-Hodgkin's lymphoma (SNOMED CT :7022229560 ) Name of Problem: H/O non-Hodgkin's lymphoma ; Recorder: BRENNA PULIDO RN; Confirmation: Confirmed ; Classification: Patient Stated ; Code: [id number] ; Contributor System: [facility] ; Last Updated: 08/05/2018 12:49 EST ; Life Cycle Date: 08/05/2018 ; Life Cycle Status: Active ; Vocabulary: SNOMED CT Hip pain, right (SNOMED CT :2529298823 ) Name of Problem: Hip pain, right ; Recorder: MANNY CHAVEZ RN; Confirmation: Confirmed ; Classification: Medical ; Code: 9945565935 ; Contributor System: PowerChart ; Last Updated: 06/05/2016 14:01 EDT ; Life Cycle Date: 06/05/2016 ; Life Cycle Status: Active ; Vocabulary: SNOMED CT HTN (hypertension) (SNOMED CT :2816511367 ) Name of Problem: HTN (hypertension) ; Recorder: MANNY CHAVEZ RN; Confirmation: Confirmed ; Classification: Medical ; Code: 3453755018 ; Contributor System: PowerChart ; Last Updated: 06/05/2016 14:00 EDT ; Life Cycle Date: 06/05/2016 ; Life Cycle Status: Active ; Vocabulary: SNOMED CT Insomnia (SNOMED CT :339179771 ) Name of Problem: Insomnia ; Recorder: MANNY CHAVEZ RN; Confirmation: Confirmed ; Classification: Medical ; Code: 172468819 ; Contributor System: PowerChart ; Last Updated: 06/05/2016 14:00 EDT ; Life Cycle Date: 06/05/2016 ; Life Cycle Status: Active ; Vocabulary: SNOMED CT Leg pain, right (SNOMED CT :428369784 ) Name of Problem: Leg pain, right ; Recorder: MANNY CHAVEZ RN; Confirmation: Confirmed ; Classification: Medical ; Code: 735625614 ; Contributor System: PowerChart ; Last Updated: 06/05/2016 14:01 EDT ; Life Cycle Date: 06/05/2016 ; Life Cycle Status: Active ; Vocabulary: SNOMED CT Numbness and tingling (SNOMED CT :8260425313 ) Name of Problem: Numbness and tingling ; Recorder: MANNY CHAVEZ RN; Confirmation: Confirmed ; Classification: Medical ; Code: 4452654651 ; Contributor System: PowerChart ; Last Updated: 04/05/2019 14:41 EDT ; Life Cycle Status: Active ; Vocabulary: SNOMED CT ; Comments: 04/05/2019 14:41 - Maryam Dacosta-LUIS FERNANDO numbness and tingling right thigh area to toes Osteoarthritis (SNOMED CT :7361433862 ) Name of Problem: Osteoarthritis ; Recorder: MANNY CHAVEZ RN; Confirmation: Confirmed ; Classification: Medical ; Code: [id number] ; Contributor System: PowerChart ; Last Updated: 06/05/2016 14:03 EDT ; Life Cycle Date: 06/05/2016 ; Life Cycle Status: Active ; Vocabulary: SNOMED CT Pain (SNOMED CT :75845466 ) Name of Problem: Pain ; Recorder: MANNY CHAVEZ, DUNCAN; Confirmation: Confirmed ; Classification: Medical ; Code: 55747932 ; Contributor System: [facility] ; Last Updated: 04/05/2019 14:42 EDT ; Life Cycle Status: Active ; Vocabulary: SNOMED CT ; Comments: 04/05/2019 14:42 - Maryam Dacosta-CI right buttocks pain sleep apnea (SNOMED CT :574593773 ) Name of Problem: sleep apnea ; Recorder: Amina Ordonez RN; Confirmation: Confirmed ; Classification: Medical ; Code: 086713582 ; Contributor System: [employer] [facility] ; Last Updated: 05/20/2017 10:23 EDT ; Life Cycle Date: 06/12/2016 ; Life Cycle Status: Active ; Vocabulary: SNOMED CT Tremor (SNOMED CT :61563472 ) Name of Problem: Tremor ; Recorder: MANNY CHAVEZ, DUNCAN; Confirmation: Confirmed ; Classification: Medical ; Code: 11002842 ; Contributor System: [facility] ; Last Updated: 06/05/2016 14:17 EDT ; Life Cycle Date: 06/05/2016 ; Life Cycle Status: Active ; Vocabulary: SNOMED CT Diagnoses(Active) Suicidal ideation Date: 08/12/2021 ; Diagnosis Type: Reason For Visit ; Confirmation: Complaint of ; Clinical Dx: Suicidal ideation ; Classification: Medical ; Clinical Service: Non-Specified ; Code: PNED ; Probability: 0 ; Diagnosis Code: [id number] ED Height and Weight Height Source : Stated Height Entry Format : Tree[place] Height, Feet : 5 ft(Converted to: 152 cm, 60 Inch) Height, Inches : 9 Inch(Converted to: 0 ft 9 Inch, 22.86 cm) Clinical Height : 175.26 cm Weight Source, ED : Critical estimated dosing weight Weight Entry Format : [place] Weight, Pounds : 220 lb Clinical Dosing Weight : 100 kg Body Surface Area (BSA) : 2.15 m2 Body Mass Index : 32.6 kg/m2 (HI) [place] Body Weight (IBW) : 65.73 kg Lacey Valle, Rn - 08/12/2021 19:34 EST documented in this encounter Plan of Treatment Not on file documented as of this encounter Visit Diagnoses Not on filedocumented in this encounter
--- OUTSIDE RECORDS SUMMARY | 2025-03-08 13:19 | XMS_ITS | Encounter Summary ---
Author Organization [employer] ([place], [place], [place], [place]) Address [address] [place] [address] Care Team Providers Care Reefer Engineer Name Role Phone Unavailable Primary Care Provider Unavailabl e Encounter Details Date Type Department Care Team (Late st Contact Info) Description 06/20/2021 Transcribed Document [facility] [place] [address] [place] [address] ProviderTg MD [address] [place] [address] Social History Tobacco Use Types Packs/Day Years Used Date Smoking Tobacco: Never Assessed Comments Unknown Sex and Gender Information Value Date Recorded Sex Assigned at Not on file Legal Sex Female 2:39 PM CDT Gender Identity Not on file Sexual Orientation Not on file documented as of this encounter Miscellaneous Notes * Cerner Conversion Note - Historical ProviderMD - 06/20/2021 3:23 PM CDT Treatment Intervention, OT Entered On: 06/26/2021 12:28 EDT Performed On: 06/26/2021 10:08 EDT by ROSALINDA CASAS, OTR/L General Information, OT Visit Type, OT : Treatment Note Patient Orders : Order Date Order Ordering 06/07/2021 14:19 OT Evaluation and Treatment Ordered By: CARA DE LA ROSA PA 06/08/2021 16:07 OT Additional Treatment Ordered By: 06/19/2021 10:48 OT Evaluation and Treatment Ordered By: MARGO AMBRIZ MD-INT 06/19/2021 13:01 Occupational Therapy Evaluation and Treatme Ordered By: MARGO AMBRIZ MD-INT 06/20/2021 15:23 OT Additional Treatment Ordered By: Active Diagnoses : 06/07/2021 12:00 Altered mental status 06/07/2021 12:00 Sepsis, unspecified organism 06/07/2021 12:00 Urinary tract infection, site not specified Therapy Diagnosis, OT : Decreased independence in ADLs and functional mobility Admission Date : 06/07/2021 12:36 Personal Devices : Personal Devices No Devices Recorded Assistive Devices : Assistive Devices No Devices Recorded ROSALINDA CASAS OTR/L - 06/26/2021 12:24 EDT General Status Patient Received Status : Supine in bed Treatment Start Time : 06/26/2021 9:45 EDT Patient Left Status : Supine in bed, RN/PCT informed, Family/Visitors at bedside, All needs met and within reach RN/PCT Informed Comment : RN crys. Treatment End Time : 06/26/2021 10:08 EDT Treatment Time : 23 Minute(s) ROSALINDA CASAS OTR/L - 06/26/2021 12:24 EDT Self Care/Home Management, OT Bathing Assist Level, OT : Assist, total Bathing Device Comment, OT : OT cleaned pt's bottom as chux soaked in urine underneath pt. Chux changed out. TotalA. Bed/Chair/WC Transfer Assist Level : Assist, moderate Bed/Chair/WC Device Comment : ModAx2 supine to sit. ROSALINDA CASAS OTR/L - 06/26/2021 12:24 EDT Functional Mobility Mobility Grid Supine to Sit : Rehab Moderate assistance (Comment: x2 [ROSALINDA CASAS, OTR/L - 06/26/2021 12:24 EDT] ) Sit to Stand : Rehab Moderate assistance (Comment: x2 [ROSALINDA CASAS, OTR/L - 06/26/2021 12:24 EDT] ) Stand to Sit : Rehab Moderate assistance (Comment: x2 [ROSALINDA CASAS, OTR/L - 06/26/2021 12:24 EDT] ) Sit to Supine : Rehab Maximal assistance (Comment: x2 [ROSALINDA CASAS, OTR/L - 06/26/2021 12:24 EDT] ) ROSALINDA CASAS OTR/L - 06/26/2021 12:24 EDT Plan of Care, OT OT Tx Plan/Goals Established w Patient : Yes ROSALINDA CASAS OTR/L - 06/26/2021 12:24 EDT [facility] Goals, OT Self Feeding LTG Grid Goal #1 Activity : Self feeding Assist : Supervision or set-up Date to Meet : 07/04/2021 EDT Goal Status : Initial ROSALINDA CASAS OTR/L - 06/26/2021 12:24 EDT Grooming LTG Grid Goal #1 Goal #2 Activity : Grooming Grooming Assist : Independent, modified Supervision or set up Date to Meet : 06/22/2021 EDT 07/04/2021 EDT Goal Status : Not met Initial goal ROSALINDA CASAS OTR/L - 06/26/2021 12:24 EDT ROSALINDA CASAS OTR/L - 06/26/2021 12:24 EDT Bathing LTG Grid Goal #1 Activity : Bathing, Upper Extremity Assist : Assist, minimal Date to Meet : 07/04/2021 EDT Goal Status : Progressing, continue ROSALINDA CASAS OTR/L - 06/26/2021 12:24 EDT Dressing, Lower Body LTG Grid Goal #1 Activity : Dressing, Lower Body Assist : Independent, modified Date to Meet : 06/22/2021 EDT Goal Status : Not met ROSALINDA CASAS OTR/L - 06/26/2021 12:24 EDT Toilet Transfer LTG Grid Goal #1 Activity : Toilet Transfer, Ambulatory Assist : Independent, modified Date to Meet : 06/22/2021 EDT Goal Status : Not met ROSALINDA CASAS OTR/L - 06/26/2021 12:24 EDT Bed Mobility/ Bed Transfer LTG Grid Goal #1 Goal #2 Activity : Bed Mobility/Bed Transfer Bed Mobility, Supine to Sit Assist : Independent, modified Assist, moderate Date to Meet : 06/22/2021 EDT 07/04/2021 EDT Goal Status : Not met Progressing, continue ROSALINDA CASAS OTR/L - 06/26/2021 12:24 EDT ROSALINDA CASAS OTR/L - 06/26/2021 12:24 EDT Other LTG Grid Goal #1 Goal #2 Goal : pt to participate in B UE AAROM x10 Pt to sit EOB 5 minutes with min assist during functional task Date to Meet : 07/04/2021 EDT 07/04/2021 EDT Goal Status : Initial goal Initial goal ROSALINDA CASAS OTR/L - 06/26/2021 12:24 EDT ROSALINDA CASAS OTR/Lachelle - 06/26/2021 12:24 EDT Treatment Note Subjective Comment : Agreeable. Patient's Response to Treatment : Pt remains motivated. Pt not feeling as well today. 02 sats drop with movement to 80. RN oks to titrate up as needed. Pt placed on 3L of oxygen for therapy session. Additional Objective Information : ModAx2 to EOB. ModAx2 to stand with RW. Pt stood briefly, fatigiuing. Assessment : Progressing. ROSALINDA CASAS OTR/Lachelle - 06/26/2021 12:24 EDT Pain Assessment Pain Score Post-Intervention. : 0 ROSALINDA CASAS OTR/L - 06/26/2021 12:24 EDT Image 1 - Images currently included in the form version of this document have not been included in the text rendition version of the form. Anticipated Discharge Needs, OT/PT Anticipated Discharge to : Unit, rehabilitation ROSALINDA CASAS OTChris/Lachelle - 06/26/2021 12:[address] [facility] OT Charges OT Ther Activities Ea 15 Min : 2 ROSALINDA CASAS OTR/Lachelle - 06/26/2021 12:24 EDT documented in this encounter Plan of Treatment Not on file documented as of this encounter Visit Diagnoses Not on filedocumented in this encounter
--- OUTSIDE RECORDS SUMMARY | 2025-03-08 13:19 | XMS_ITS | Encounter Summary ---
Author Organization [employer] ([place], [place], [place], [place]) Address [address] [place] [address] Care Team Providers Care Metal Technician Name Role Phone Unavailable Primary Care Provider Unavailabl e Encounter Details Date Type Department Care Team (Late st Contact Info) Description 06/20/2021 Transcribed Document [facility] Pulm & Critical Care Medicine [address] [place] [address] [address] [place] [address] Enrique Lindsey MD [address] [facility] [address] [place] [address] Social History Tobacco Use Types Packs/Day Years Used Date Smoking Tobacco: Never Assessed Comments Unknown Sex and Gender Information Value Date Recorded Sex Assigned at Not on file Legal Sex Female 2:39 PM CDT Gender Identity Not on file Sexual Orientation Not on file documented as of this encounter Miscellaneous Notes * Cerner Conversion Note - Enrique Lindsey MD - 06/20/2021 9:56 AM EDT Patient: SUDHA TIMMONS Age: 75 [...] positive I&O balance. Cleared for PO diet. 06/20: Patient seen and examined on room air. She is resting, but does open eyes to command. Does not speak or follow any other commands. Current on EEG monitor. She has been hemodynamically stable with Tmax 99.8. Currently tolerating TF via corpak. No output documented for patient. Intake & Output Totals Last 24 Hours (7a-7a) Intake (27 Events) Medications (429.99 mL) Enteral Additional Water Given (200 mL) Enteral Feeding Amount (600 mL) Output (0 Events) No output events found in the last 24 hours. Input Total: 1229.99 mL Output Total: 0 mL Balance: 1229.99 mL Review of Systems Neurologic: Confusion. Unable [...] Q3H, PRN: Tachycardia Lovenox: 115 mg, SubCutaneous, [id number] MiraLax: 17 Gram, Oral, Daily Pepcid: 20 [...] micafungin: 100 mg, 100 mL/Hr, IV Piggyback, [id number] oxyCODONE: 5 mg, Oral, Q4H, PRN: Pain [...] Oral, Daily, 30 Cap, 0 Refill(s), Medications (34) Active Scheduled: (19) aspirin 81 mg chew tab 81 mg [...] mL inj 115 mg 1.15 mL, SubCutaneous, [id number] famotidine 20 mg tab 20 mg 1 Tab, Oral, Daily guaiFENesin 200 mg/10 mL liq 400 mg 20 mL, Oral, Q4HInt insulin regular 1 unit/0.01 mL inj 3mL Scale A, SubCutaneous, Q6H lactobacillus acidophilus cap 1 Cap, Oral, Daily micafungin sodium 100 mg, IV Piggyback, [id number] piperacillin-tazobactam + NaCl 0.9% 100 mL 3.375 [...] Tab, Oral, BID Problem list: All Problems Tremor / SNOMED CT 85640653 / Confirmed Insomnia / SNOMED CT 956479144 / Confirmed sleep apnea / SNOMED CT 578813768 / Confirmed Leg pain, right / SNOMED CT 229266062 / Confirmed Pain / SNOMED CT 08959881 / Confirmed right buttocks pain Osteoarthritis / SNOMED CT 6132303814 / Confirmed Numbness and tingling / SNOMED CT 5088250722 / Confirmed numbness and tingling right thigh area to toes Depression / SNOMED CT 4441196161 / Confirmed HTN (hypertension) / SNOMED CT 1221485764 / Confirmed H/O non-Hodgkin's lymphoma / SNOMED CT 7583603227 / Confirmed Fall / SNOMED CT 0909043 / Confirmed Disease caused by 2019 novel coronavirus / SNOMED CT 5391753126 / Confirmed Problem added by a rule: [id number]. Concussion / SNOMED CT 8605760386 / Confirmed concussion with loss of memory+ Bipolar I disorder, current or most recent episode depressed, with psychotic features with catatonia / SNOMED CT 64509548 / Confirmed At risk for violence / IMO 68726044 / Confirmed At risk for sleep apnea / IMO 35658596 / Confirmed Hip pain, right / SNOMED CT 3094411648 / Confirmed, Active Problems (17) At risk [...] Last Charted Minimum Maximum Temp 97.8 (JUN 19 18:00) 97.8 (JUN 19 18:00) H 99.8 (JUN 19:03) Mon HR 71 (JUN 19:00) 61 (JUN 19:03) 107 (JUN 19:) Resp Rate 18 (JUN 19:00) 18 (JUN 19:03) 20 (JUN 19:) SBP 139 (JUN 19:) 129 (JUN 19:03) H 143 (JUN 19:) DBP 67 (JUN 19 18:) L 9 (JUN 19:) 81 (JUN 19:03) MAP 99 (JUN 19:03) 99 (JUN 19:03) 99 (JUN 19:03) SpO2 100 (JUN 19 18:00) 96 (JUN 19:00) 100 (JUN 19:03) General: No acute distress, confused, not currently following commands or conversing, Morbidly obese. Eye: Pupils are equal, round and reactive to light, Normal conjunctiva. HENT: Normocephalic, Oral mucosa is moist. Neck: Supple, Non-tender, No lymphadenopathy. Respiratory: Tachypnea, Increased work of breathing noted. Diminished breath sounds at bases. No rales or rhonchi or wheezes. . Cardiovascular: Normal rate, Regular rhythm, Normal peripheral perfusion, Mild LE edema . Gastrointestinal: Soft, Non-tender, Normal bowel sounds. Support: Gastric tube ( Nasal ). Genitourinary: Hamlin cath. Musculoskeletal: Normal range of motion, No deformity. Integumentary: Warm, Dry, No rash. Neurologic: Alert, confused. Psychiatric: Unable to assess. . Review / Management Results review: Labs (Last four charted values) WBC 9.8 (JUN 20) 8.5 (JUN 19) 8.2 (OCT 20) H 12.9 (JUN 17) HB L 7.8 (JUN 20) L 8.1 (MAY 21) L 8.9 (MAY 20) L 8.9 (JUN 17) HCT L 23.6 (MAY 22) L 25.1 (OCT 21) L 27.7 (OCT 20) L 27.7 (MAY 19) Plt 189 (JUN 20) 190 (OCT 21) 210 (OCT 20) 206 (JUN 17) Na 143 (JUN 20) 145 (JUN 19) 145 (MAY 20) 143 (JUN 17) K 5.1 (JUN 20) 5.1 (JUN 19) 5.0 (MAY 20) 4.7 (JUN 17) Cl H 114 (JUN 20) H 116 (JUN 19) H 116 (JUN 18) H 115 (JUN 17) CO2 26 (JUN 20) 27 (JUN 19) 26 (JUN 18) 25 (JUN 17) BUN H 27 (JUN 20) H 25 (JUN 19) 21 (MAY 20) H 23 (JUN 17) Cr 0.70 (JUN 20) 0.60 (JUN 19) 0.60 (MAY 20) 0.70 (JUN 17) Glu R H 152 (JUN 20) H 136 (JUN 19) H 116 (MAY 20) H 141 (JUN 17) Ca L 7.9 (JUN 20) L 8.0 (JUN 19) 8.5 (MAY 20) L 8.2 (JUN 17) Lactic 1.6 (JUN 17) 1.0 (JUN 07) PT 11.4 (JUN 08) 11.4 (JUN 07) 11.4 (JUN 07) INR 1.1 (JUN 08) 1.1 (JUN 07) 1.1 (JUN 07) PTT 23.2 (JUN 07) AST 26 (JUN 19) 29 (OCT 20) 36 (MAY 19) H 87 (MAY 15) ALT 28 (JUN 19) 27 (MAY 20) 22 (MAY 19) 24 (OCT 15) ALK P 106 (JUN 19) 110 (MAY 20) 130 (OCT 19) 88 (OCT 15) T Bili 0.3 (JUN 19) 0.4 (MAY 20) 0.3 (MAY 19) 0.4 (MAY 15) PTN L 4.4 (JUN 19) L 4.5 (MAY 20) L 4.7 (MAY 19) L 5.0 (OCT 15) ALB L 2.1 (JUN 19) L 2.2 (JUN 18) L 2.1 (JUN 17) L 2.3 (JUN 13) Troponin H 0.096 (JUN 20) H 0.094 (JUN 18) H 0.147 (JUN 16) H 0.447 (JUN 14) . JUN 20 05:16 143 H 114 H 27 / H 152 5.1 26 0.70 \ JUN 13 04:00 \ L 10.9 / H 12.0 231 / 34.3 \Blood Gases (Current Encounter/Past 24 Hours) No Blood Gas Results Found (Past 24 Hours) JUN 20 05:16 143 H 114 H 27 / H 152 5.1 26 0.70 \ JUN 20 05:16 \ L 7.8 / 9.8 189 / L 23.6 \ Radiology Results (Last 48 hours) [id number] -- 06/07/2021 12:36 CR Chest 1 Vw [...] and dictated by Dr. Zelalem Linn.Transcribed by lEisabet Dawson.I have personally viewed, interpreted and dictated [...] O2 to maintain O2 saturations 90-94% - on room air. High risk for further decompensation. She is a full code. High risk for intubation. Optiflow or NIPPV as needed for increased work of breathing Unable to perform Conscious self proning due to dementia and confusional state. Combivent inhaler Mucinex 1200mg BID IS/FV COVID order set Neuro following. MRI of brain did not show any acute pathology. Patient currently on EEG Cardiology is following prior and now signed off Renal following ID following: Anbx: Zosyn, Adriana, Atovaquone IV Dexamethasone changed to Prednisone taper over few days. S/p Remedesivir Actemra IV : given 06/10/21 Significantly elevated IL-6 levels. will trend. Strongyloides ab negative Lactobacillus Monitor ammonia level, currently on rifaximin. Normalized ammonia levels. Pt was on lithium/ stopped - pt on Seroquel Speech following - cleared for PO diet with puree consistency when more alert and awake in upright posture as per their notes from 06/18/21 Glycemic control - SSI ACHS. Recommend to keep blood sugars less than 180. May add Lantus if needed. Acute PE. On Lovenox 1 mg/kg every 12 hours. Recommend transition to oral anticoagulant agents if no procedures planned. PO eliquis 10 mg BID for 7 days followed by 5 mg BID for at least 3-6 months or longed depending on Risk-Benefit profile. Prophylaxis: Pepcid and Lovenox 115 mg Q12H. Labs in AM FULL CODE Prognosis : guarded. I saw and examined the patient at bedside, obtained medical history, reviewed labs, diagnostics and chest imaging data. I personally and independently visualized and interpreted chest imaging data on PACS. I formulated diagnosis and treatment plans. I made all medical decisions as above. Complex case and requires high level of medical decision making for management. Noting more to add from inpatient pulmonary/CCM service. Will sign off. Please reconsult if needed. Thank you for allowing us to participate in this patient's care. Please call us with questions. documented in this encounter Plan of Treatment Not on file documented as of this encounter Visit Diagnoses Not on filedocumented in this encounter
--- OUTSIDE RECORDS SUMMARY | 2025-03-08 13:19 | XMS_ITS | Encounter Summary ---
Author Organization [employer] ([place], [place], [place], [place]) Address [address] [place] [address] Care Team Providers Care Information And Data Architect Analyst Name Role Phone Unavailable Primary Care Provider Unavailabl e Encounter Details Date Type Department Care Team (Late st Contact Info) Description 07/23/2021 Transcribed Document [facility] [place] [address] [place] [address] ProviderTg MD [address] [place] [address] Social History Tobacco Use Types Packs/Day Years Used Date Smoking Tobacco: Never Assessed Comments Unknown Sex and Gender Information Value Date Recorded Sex Assigned at Not on file Legal Sex Female 2:39 PM CDT Gender Identity Not on file Sexual Orientation Not on file documented as of this encounter Miscellaneous Notes * Cerner Conversion Note - Tg ProviderMD - 07/23/2021 2:00 AM LAND COMMISSIONER Hall Tender Details Entered On: 07/23/2021 4:05 EST Performed On: 07/23/2021 2:00 EST by Toya Butler RN-PATIENT CARE BEDSIDE NON-EXEMPT Order Details Order Detail : N/A Patient Needs Meds Crushed/Liquid : No Toya Butler RN-PATIENT CARE BEDSIDE NON-EXEMPT - 07/23/2021 4:05 EST documented in this encounter Plan of Treatment Not on file documented as of this encounter Visit Diagnoses Not on filedocumented in this encounter
--- OUTSIDE RECORDS SUMMARY | 2025-03-08 13:19 | XMS_ITS | Encounter Summary ---
Author Organization [employer] ([place], [place], [place], [place]) Address [address] [place] [address] Care Team Providers Care Ground Worker Name Role Phone Unavailable Primary Care Provider Unavailabl e Encounter Details Date Type Department Care Team (Late st Contact Info) Description 06/20/2021 Transcribed Document [facility] [place] [address] [place] [address] ProviderTg MD [address] [place] [address] Social History Tobacco Use Types Packs/Day Years Used Date Smoking Tobacco: Never Assessed Comments Unknown Sex and Gender Information Value Date Recorded Sex Assigned at Not on file Legal Sex Female 2:39 PM CDT Gender Identity Not on file Sexual Orientation Not on file documented as of this encounter Miscellaneous Notes * Cerner Conversion Note - Tg ProviderMD - 06/20/2021 11:49 AM CDT On Going Discharge Planning Entered On: 06/20/2021 11:50 EDT Performed On: 06/20/2021 11:49 EDT by Patsy Koehler Social Worker Drew [...] Rounds? : Yes Patsy Koehler Social Worker Rounder Hand - 06/20/2021 11:49 EDT Narrative Progress Note Narrative Progress Note : HD#12, ELOS-5 RSR-moderate, Boost-5 [...] medically ready for dc. Patsy Koehler V, [facility] - 06/20/2021 11:54 EDT Historical Progress Note : HD#11, ELOS-5 RSR-moderate, Boost-5 COVID+. On 2L NC. Still has mittens. Corpak for TF. ST evaluated and recommended pureed diet and TF. On IV zosyn. HGB at 8.9. Barriers to rehab placement: mittens and corpak and no PT/OT evaluations. CM has sent rehab referrals via [facility]. CM to follow. Patsy Koehler V [facility] - 06/19/21 15:03:50 HD#10, ELOS-5 RSR-moderate, Boost-5 COVID+.Now on 4L NC. Patient awake, but remains confused and unable to converse appropriately per MD. Still in restraints. Patient passed her FEES. Diet advance to puree. Hopefully, her corpak will be discontinued soon. Brain MRI today. Still on IV abx. WBC and LDH trending down. CM sent updated clinical/therapy notes to [facility] for possible rehab placement. CM to follow. Patsy Koehler V [facility] [facility] - 06/18/21 15:20:04 HD#9, ELOS-5 RSR-moderate, Boost-5 COVID+. On 6L HFNC. Ongoing confusion. Restraints continued. On IV rocephin, micafuntgin and dexamethazone. Tolerating TF via corpak. DCP-SNF/ [facility] for rehab pending medical progress. Patsy Koehler V [facility] - 06/17/21 12:01:09 HD#8, ELOS-5 RSR-moderate, Boost-5 COVID+. On 5L HFNC. Ongoing confusion and attempting to pull at lines. In restraints. Leukocytosis worsening, LDH and d-dimer trending up, ferritin trending down. Tolerating TF via corpak. plans to get a neurology consult due to pt's confusion. CM to follow DCP-SNF for rehab pending medical progress. Patsy Koehler V, [facility] - 06/16/21 13:18:40 HD#5, ELOS-5 RSR-moderate, Boost-[address] Narda Sommer, patient with further worsening of respiratory failure. Tachycardia. Patient is criticcally ill and may need intubation. CR chest today. Patsy Koehler V [facility] - 06/13/21 09:26:38 HD#5, ELOS-5 RSR-moderate, Boost-[address] aNrda Sommer, patient with further worsening of respiratory failure. Tachycardia. Patient is critically ill and may need intubation. CR chest today showed Slightly worsening bilateral opacities. Pulmonary edema is not excluded. Corpak placed. CM to follow. DCP-pending on patient's medical progress. Patsy Koehler V [facility] - 06/13/21 09:29:02 HD#4, ELOS-5 RSR-moderate, Boost-5 [...] SNF when medically ready. Patsy Koehler V [facility] - 06/12/21 12:12:00 HD#4, ELOS-5 RSR-moderate, Boost-5 Patient currently on optiflow FiO2 70%, with continued increased confusion and fidgeting in the bed. ID and Pulm consulted and are making med adjustments. Per RN, patient with tachycardia the other night. DCP-[facility]/SNF pending medical progress. Patient lives with her 98 yo father and adult son. Patsy Koehler V [facility] [facility] - 06/11/21 10:00:55 HD#4, ELOS-5 RSR-moderate, Boost-5 COVID+. Patient currently on optiflow FiO2 60%, with continued increased confusion and fidgeting in the bed. ID and Pulm consulted and are making med adjustments. Right small PE. On IV abx. Per RN, patient with tachycardia the other night. Now has mittens. Not eating or drinking per RN. DCP-[facility] pending medical progress. Patient lives with her 98 yo father and adult son. Patsy Koehler [facility] - 06/11/21 12:10:01 HD#3, ELOS-not recorded, RSR-moderate, Boost-4 Per MD, patient is clinical deconditioning from NC to optiflow at 60% Fi02 with increased confusion. ID, Cardiology and Pulm consulted. HIGH RISK FOR INTUBATION. Patient had a abnormal ECHO with PE. On IV cefazolin and IV steroids. CM sent referrals to [facility] and [facility] due to being COVID+ for rehab. CM to follow. Patsy Koehler V [facility] [facility] - 06/10/21 10:25:43 HD#2, ELOS-not recorded, RSR-moderate, Boost-4 CM sent rehab referrals to [facility] and [facility] since they accept COVID+ patients. Currently patient is on 60% Fi02. PEr MD, patient's respiratory status is worsening. CM to follow pt's progress for dc planning. Patsy Koehler [facility] - 06/09/21 16:10:00 Patsy Koehler [facility] - 06/20/2021 11:49 EDT Electronically signed by Roger Baca Conversion Multi Craft Maintenance Technician Cerner at 12/18/2022 9:14 AM CDT documented in this encounter Plan of Treatment Not on file documented as of this encounter Visit Diagnoses Not on filedocumented in this encounter
--- OUTSIDE RECORDS SUMMARY | 2025-03-08 13:19 | XMS_ITS | Encounter Summary ---
Author Organization [employer] ([place], [place], [place], [place]) Address [address] [place] [address] Care Team Providers Care Applications Sales Representative Name Role Phone Unavailable Primary Care Provider Unavailabl e Encounter Details Date Type Department Care Team (Late st Contact Info) Description 06/19/2021 Transcribed Document [facility] [place] Medicine [address] [place] [address] ProviderTg MD [address] [place] [address] Social History Tobacco Use Types Packs/Day Years Used Date Smoking Tobacco: Never Assessed Comments Unknown Sex and Gender Information Value Date Recorded Sex Assigned at Not on file Legal Sex Female 2:39 PM CDT Gender Identity Not on file Sexual Orientation Not on file documented as of this encounter Miscellaneous Notes * Cerner Conversion Note - Historical ProviderMD - 06/19/2021 8:40 AM CDT HAND PAINTER Therapy Screen Entered On: 06/19/2021 8:42 EDT Performed On: 06/19/2021 8:40 EDT by YELENA CHARLES SLP Therapy Screen Medical Chart Reviewed, HAND PAINTER : Yes Information Obtained From, HAND PAINTER : Patient Therapy Screen Completed, HAND PAINTER : Yes Recommendations for Evaluation HAND PAINTER : None Therapy Screen Comment, HAND PAINTER : Per Neuro, pt with likely encephalopathy. No actue intercranial abnormality per chart review. No further communication evaluation indicated at this time. YELENA CHARLES SLP - 06/19/2021 8:40 EDT Electronically signed by Keven [facility] Conversion Retail Attendant Seng at 12/18/2022 9:16 AM CDT documented in this encounter Plan of Treatment Not on file documented as of this encounter Visit Diagnoses Not on filedocumented in this encounter
--- OUTSIDE RECORDS SUMMARY | 2025-03-08 13:19 | XMS_ITS | Encounter Summary ---
Author Organization [employer] ([place], [place], [place], [place]) Address [address] [place] [address] Care Team Providers Care Shipping Lead Person Name Role Phone Unavailable Primary Care Provider Unavailabl e Encounter Details Date Type Department Care Team (Late st Contact Info) Description 06/20/2021 Transcribed Document [facility] [place] [address] [place] [address] ProviderTg MD [address] [place] [address] Social History Tobacco Use Types Packs/Day Years Used Date Smoking Tobacco: Never Assessed Comments Unknown Sex and Gender Information Value Date Recorded Sex Assigned at Not on file Legal Sex Female 2:39 PM CDT Gender Identity Not on file Sexual Orientation Not on file documented as of this encounter Miscellaneous Notes * Cerner Conversion Note - Tg Jones MD - 06/20/2021 2:21 PM CDT Patient: SUDHA TIMMONS Age: 75 [...] Hx available 06/20 - no hx available ROS - not [...] Q3H, PRN: Tachycardia Lovenox: 115 mg, SubCutaneous, [id number] MiraLax: 17 Gram, Oral, Daily Pepcid: 20 [...] micafungin: 100 mg, 100 mL/Hr, IV Piggyback, [id number] oxyCODONE: 5 mg, Oral, Q4H, PRN: Pain [...] mL inj 115 mg 1.15 mL, SubCutaneous, [id number] famotidine 20 mg tab 20 mg 1 Tab, Oral, Daily guaiFENesin 200 mg/10 mL liq 400 mg 20 mL, Oral, Q4HInt insulin regular 1 unit/0.01 mL inj 3mL Scale A, SubCutaneous, Q6H lactobacillus acidophilus cap 1 Cap, Oral, Daily micafungin sodium 100 mg, IV Piggyback, [id number] piperacillin-tazobactam + NaCl 0.9% 100 mL 3.375 [...] Medical Hip pain, right / SNOMED CT 6794395796 / Confirmed At risk for sleep apnea / IMO 78896754 / Confirmed At risk for violence / IMO 42177516 / Confirmed Concussion / SNOMED CT 8278147929 / Confirmed concussion with loss of memory+ Disease caused by 2019 novel coronavirus / SNOMED CT 4893200131 / Confirmed Problem added by a rule: [id number]. Fall / SNOMED CT 4841386 / Confirmed HTN (hypertension) / SNOMED CT 7074496322 / Confirmed Depression / SNOMED CT 9384092190 / Confirmed Numbness and tingling / SNOMED CT 0376953310 / Confirmed numbness and tingling right thigh area to toes Osteoarthritis / SNOMED CT 6031537424 / Confirmed Pain / SNOMED CT 65596317 / Confirmed right buttocks pain Leg pain, right / SNOMED CT 311130143 / Confirmed sleep apnea / SNOMED CT 038290970 / Confirmed Insomnia / SNOMED CT 481684606 / Confirmed Tremor / SNOMED CT 10049172 / Confirmed, Active Problems (17) At risk [...] Last Charted Minimum Maximum Temp 98.5 (JUN 20:00) 97.8 (JUN 19:00) 99.6 (JUN 19:00) Mon HR 104 (JUN 20:00) 71 (JUN 19:00) 107 (JUN 19:00) Resp Rate 20 (JUN 20:00) 18 (JUN 19 18:00) 20 (JUN 19:00) SBP 139 (JUN 20:00) 139 (JUN 19 18:00) H 143 (JUN 19:00) DBP 87 (JUN 20:00) L 9 (JUN 19:00) 87 (JUN 20:00) SpO2 97 (JUN 20:00) 96 (JUN 19:00) 100 (JUN 19:00) General: no distress, On oxygen Eye: Pupils are equal, round and reactive to light, Normal conjunctiva. HENT: Normocephalic, Oral mucosa is moist. Neck: Supple, Non-tender. Respiratory: Lungs are clear to auscultation, Breath sounds are equal. Cardiovascular: Normal rate, Normal peripheral perfusion, Mild LE edema Gastrointestinal: Soft, Non-tender Musculoskeletal: No deformity. Integumentary: Warm, Dry. Neurologic: groggy, confused. Psychiatric: not Cooperative. looks at examiner, seems tearful Review / Management Results review: Labs (Last four charted values) WBC 9.8 (JUN 20) 8.5 (JUN 19) 8.2 (JUN 18) H 12.9 (JUN 17) HB L 7.8 (JUN 20) L 8.1 (JUN 19) L 8.9 (MAY 20) L 8.9 (JUN 17) HCT L 23.6 (JUN 20) L 25.1 (JUN 19) L 27.7 (JUN 18) L 27.7 (JUN 17) Plt 189 (JUN 20) 190 (JUN 19) 210 (MAY 20) 206 (JUN 17) Na 143 (JUN 20) 145 (JUN 19) 145 (JUN 18) 143 (JUN 17) K 5.1 (JUN 20) 5.1 (JUN 19) 5.0 (MAY 20) 4.7 (JUN 17) Cl H 114 (JUN 20) H 116 (JUN 19) H 116 (MAY 20) H 115 (MAY 19) CO2 26 (JUN 20) 27 (JUN 19) 26 (MAY 20) 25 (JUN 17) BUN H 27 (JUN 20) H 25 (JUN 19) 21 (OCT 20) H 23 (MAY 19) Cr 0.70 (JUN 20) 0.60 (JUN 19) 0.60 (OCT 20) 0.70 (JUN 17) Glu R H 152 (JUN 20) H 136 (JUN 19) H 116 (MAY 20) H 141 (MAY 19) Ca L 7.9 (JUN 20) L 8.0 (JUN 19) 8.5 (OCT 20) L 8.2 (MAY 19) Lactic 1.6 (MAY 19) 1.0 (MAY 09) PT 11.4 (MAY 10) 11.4 (JUN 07) 11.4 (MAY 09) INR 1.1 (MAY 10) 1.1 (OCT 09) 1.1 (MAY 09) PTT 23.2 (MAY 09) AST 26 (MAY 21) 29 (OCT 20) 36 (MAY 19) H 87 (MAY 15) ALT 28 (OCT 21) 27 (OCT 20) 22 (JUN 17) 24 (JUN 13) ALK P 106 (JUN 19) 110 (JUN 18) 130 (JUN 17) 88 (JUN 13) T Bili 0.3 (JUN [...] (change made 06/19) Ferritin worse Complex case documented in this encounter Plan of Treatment Not on file documented as of this encounter Visit Diagnoses Not on filedocumented in this encounter
--- OUTSIDE RECORDS SUMMARY | 2025-03-08 13:19 | XMS_ITS | Clinical Summary ---
Author Organization [facility] Address [address] [place] [address] Phone Care Team Providers Care Rigging Foreman Name Role Phone Unavailable Primary Care Provider Unavailabl e Allergies Active Allergy Reactions Criticality Noted Date Comments Codeine Nausea Only Medium 07/04/2024 Latex, Natural Rubber Rash Medium 07/04/2024 Medical History Medical History Date Comments Hypertension Heartburn Seizures (HCC) Other specified types of non-hodgkin lymphoma, u nspecified site (HCC) Renal insufficiency Depression Chronic kidney disease Anemia Social History Tobacco Use Types Packs/Day Years Used Date Smoking Tobacco: Never Smokeless Tobacco: Never Tobacco Cessation:Counseling Given: Not Answered Alcohol Use Standard Drinks/Week Comments Not Currently 0 (1 standard drink = 0.6 oz pur e alcohol) Comments Unknown Sex and Gender Information Value Date Recorded Sex Assigned at Not on file Legal Sex Female 9:00 AM EST Gender Identity Not on file Sexual Orientation Not on file Obstetrics History Plan of Treatment Health Maintenance Due Date Last Done Comments Wellness Exam Medicare 1948 Hepatitis C Screening 1965 DTaP/TDaP/Td (1 - Tdap) 1966 Pneumococcal Vaccine 50+ (1 of 1 - PCV) 1997 Zoster (1 of 2) 1997 Bone Density Screening 2012 RSV or 60+ (1 - 1-d ose 75+ series) 2022 COVID-19 Vaccine ( - 2023-2 5 season) 2024 Influenza Vaccine (#1) 2025 Hepatitis B Vaccine Aged Out No longe r eligible based on patient's age to complete this topic Meningococcal B Vaccine Aged Out No l onger eligible based on patient's age to complete this topic Insurance [facility] [place] [address]
--- OUTSIDE RECORDS SUMMARY | 2025-03-08 13:19 | XMS_ITS | Encounter Summary ---
Author Organization [employer] ([place], [place], [place], [place]) Address [address] [place] [address] Care Team Providers Care Salad Maker Name Role Phone Unavailable Primary Care Provider Unavailabl e Encounter Details Date Type Department Care Team (Late st Contact Info) Description 06/20/2021 Transcribed Document [facility] [place] Medicine [address] [place] [address] ProviderTg MD [address] [place] [address] Social History Tobacco Use Types Packs/Day Years Used Date Smoking Tobacco: Never Assessed Comments Unknown Sex and Gender Information Value Date Recorded Sex Assigned at Not on file Legal Sex Female 2:39 PM CDT Gender Identity Not on file Sexual Orientation Not on file documented as of this encounter Miscellaneous Notes * Cerner Conversion Note - Tg Jones MD - 06/20/2021 8:32 AM CDT Patient: SUDHA SOLORZANO Age: 75 Years Sex: Female : 1945 Assessment/Plan 1. Multifactorial ATN secondary to infection/contrast-induced nephropathy in setting of being on DEMETRI inhibitors 2. Hypernatremia 3. Mild acidosis, non-anion gap secondary to REBECCA 4. PE 5. Covid pneumonitis Plan -improvement in Kidney function with creatinine down to 0.6-->0.7 -Mild elevation of CK not clinically significant -Non-oliguric, with good urine output -Avoid nephrotoxins, please keep MAP above 65, Avoid IV Contrast -strict intake and output -currently on Water to 70 ml/hour with NA:145-->143 -Thanks for consultation, follow along with you VTE Prophylaxis - Medical Enoxaparin 115 mg, SubCutaneous, Inj, Q39GTug, Routine, Start 06/16/21 21:00:00 EDT, 06/16/21 21:00:00 EDT (YAMILGORDON ENRIQUE) Sequential Compression Device Start: 06/07/21 14:19:00 EDT, Bilateral, Length: Knee High, While patient is in bed, Continuous Order (CARA DE LA ROSA) Subjective Patient was seen and evaluated by bedside Vital Signs T: 36.6 ??C TMIN: 36.6 ??C TMAX: 37.7 ??C HR: 71(Monitored) RR: 18 BP: 139/67 SpO2: 100% Oxygen Settings (Last) Oxygen Therapy Mode: Room air (06/19/21 18:00:00) Oxygen Flow Rate: 1 Liter/Min (06/19/21 15:00:00) Intake & Output Totals Last 24 Hours (7a-7a) Input Total: 1229.99 mL Output Total: 0 mL? Balance: 1229.99 mL Physical Exam General: confused, lethargiic , [...] PRN Lovenox, 115 mg= 1.15 mL, SubCutaneous, [id number] micafungin MiraLax, 17 Gram= 1 Packet, Oral, Daily oxyCODONE, 5 mg= 1 Tab, Oral, Q4H, PRN Pepcid, 20 mg= 1 Tab, Oral, Daily predniSONE, 40 mg= 2 Tab, Oral, Daily predniSONE, 30 mg= 3 [...] Test Result Date/Time Sodium Level 143 mmol/L 06/20/2021 05:16 EDT Potassium Level 5.1 mmol/L 06/20/2021 05:16 EDT Chloride Level 114 mmol/L (High) 06/20/2021 05:16 EDT Carbon Dioxide Level 26 mmol/L 06/20/2021 05:16 EDT Anion Gap 8 (Low) 06/20/2021 05:16 EDT Glucose Level 152 mg/dL (High) 06/20/2021 05:16 EDT Blood Urea Nitrogen 27 mg/dL (High) 06/20/2021 05:16 EDT Creatinine Level 0.70 mg/dL 06/20/2021 05:16 EDT eGFR >60 mL/min/1.73m2 06/20/2021 05:16 EDT eGFR NonAfrican >60 mL/min/1.73m2 06/20/2021 05:16 EDT Bun/Creatinine 38.6 (High) 06/20/2021 05:16 EDT Calcium Level 7.9 mg/dL (Low) 06/20/2021 05:16 EDT Magnesium Level 2.0 mg/dL 06/20/2021 05:16 EDT Ammonia Level 20.0 uMol/L 06/19/2021 10:32 EDT Device Comment 1 Notified Nurse RBV 06/20/2021 04:53 EDT Device Comment 1 Notified Nurse RBV 06/20/2021 00:29 EDT Device Comment 1 Notified Nurse RBV 06/19/2021 10:41 EDT Glucose POC2 138 mg/dL (High) 06/20/2021 04:53 EDT Glucose POC2 122 mg/dL (High) 06/20/2021 00:29 EDT Glucose POC2 218 mg/dL (High) 06/19/2021 16:20 EDT Glucose POC2 147 mg/dL (High) 06/19/2021 10:41 EDT CRP <0.29 mg/dL 06/20/2021 05:16 EDT Lactate Dehydrogenase 497 Units/Liter (High) 06/20/2021 05:16 EDT CK 299 Units/Liter (High) 06/20/2021 05:16 EDT Troponin I Ultra 0.096 ng/mL (High) 06/20/2021 05:16 EDT WBC 9.8 K/uL 06/20/2021 04:50 EDT RBC 2.26 Million/uL (Low) 06/20/2021 04:50 EDT Hgb 7.8 g/dL (Low) 06/20/2021 04:50 EDT Hct 23.6 % (Low) 06/20/2021 04:50 EDT MCV 104.4 fL (High) 06/20/2021 04:50 EDT MCH 34.5 pg (High) 06/20/2021 04:50 EDT MCHC 33.1 Gram/dL 06/20/2021 04:50 EDT Platelet Count 189 K/uL 06/20/2021 04:50 EDT MPV 11.5 fL 06/20/2021 04:50 EDT RDW 13.9 % 06/20/2021 04:50 EDT Neut % 72.9 % (High) 06/20/2021 04:50 EDT Neut # 7.18 K/uL (High) 06/20/2021 04:50 EDT Lymph % 12.3 % (Low) 06/20/2021 04:50 EDT Lymph # 1.21 x10(3)/uL 06/20/2021 04:50 EDT Dale % 9.2 % (High) 06/20/2021 04:50 EDT Dale # 0.91 K/uL 06/20/2021 04:50 EDT Eos % 4.6 % 06/20/2021 04:50 EDT Eos # 0.45 x10(3)/uL 06/20/2021 04:50 EDT Baso % 0.2 % 06/20/2021 04:50 EDT Baso # 0.02 x10(3)/uL 06/20/2021 04:50 EDT nRBC 0.350 (High) 06/20/2021 04:50 EDT Slide Review No 06/20/2021 04:50 EDT IG# 0.08 x10(3)/uL (High) 06/20/2021 04:50 EDT IG% 0.80 % (High) 06/20/2021 04:50 EDT D Dimer Quant 1.72 mg/L FEU (High) 06/20/2021 04:50 EDT Ferritin Level 821.7 ng/mL (High) 06/20/2021 05:16 EDT Electronically signed by Keven, Julian Conversion Assembler Dry Cell And Battery Cerner at 12/18/2022 9:16 AM CDT documented in this encounter Plan of Treatment Not on file documented as of this encounter Visit Diagnoses Not on filedocumented in this encounter
--- OUTSIDE RECORDS SUMMARY | 2025-03-08 13:19 | XMS_ITS | Encounter Summary ---
Author Organization [employer] ([place], [place], [place], [place]) Address [address] [place] [address] Care Team Providers Care Envelope Adjuster Name Role Phone Unavailable Primary Care Provider Jocelin e Encounter Details Date Type Department Care Team (Late st Contact Info) Description 06/27/2021 Transcribed Document [facility] [place] Family Medicine [address] [place] [address] ProviderTg MD [address] [place] [address] Social History Tobacco Use Types Packs/Day Years Used Date Smoking Tobacco: Never Assessed Comments Unknown Sex and Gender Information Value Date Recorded Sex Assigned at Not on file Legal Sex Female 2:39 PM CDT Gender Identity Not on file Sexual Orientation Not on file documented as of this encounter Miscellaneous Notes * Cerner Conversion Note - Historical ProviderMD - 06/27/2021 11:49 AM CDT Attempt to Treat, PT Entered On: 06/27/2021 11:50 EDT Performed On: 06/27/2021 11:49 EDT by Paige Cooper Physical Therapist Attempt to Treat Unable to Treat Due To : Patient Refusal Inability to Treat Comment : Patient declined PTx this date stating that she is adamant to return home. PT offered to complete supine ther ex to improve strength and patient declined reporting increased fatigue. PT to check back as schedule permits. Paige Cooper Physical Therapist - 06/27/2021 11:49 EDT documented in this encounter Plan of Treatment Not on file documented as of this encounter Visit Diagnoses Not on filedocumented in this encounter
--- OUTSIDE RECORDS SUMMARY | 2025-03-08 13:19 | XMS_ITS | Encounter Summary ---
Author Organization [employer] ([place], [place], [place], [place]) Address [address] [place] [address] Care Team Providers Care Cistern Room Operator Name Role Phone Unavailable Primary Care Provider Unavailabl e Encounter Details Date Type Department Care Team (Late st Contact Info) Description 08/12/2021 Transcribed Document [facility] [place] [address] [place] [address] ProviderTg MD [address] [place] [address] Social History Tobacco Use Types Packs/Day Years Used Date Smoking Tobacco: Never Assessed Comments Unknown Sex and Gender Information Value Date Recorded Sex Assigned at Not on file Legal Sex Female 2:39 PM CDT Gender Identity Not on file Sexual Orientation Not on file documented as of this encounter Miscellaneous Notes * Cerner Conversion Note - Historical ProviderMD - 08/12/2021 9:36 PM SAP CRM DEVELOPER Electronically signed by Keven, [facility] Conversion Otr Company Driver Cerner at 12/15/2022 6:39 PM CDT documented in this encounter Plan of Treatment Not on file documented as of this encounter Visit Diagnoses Not on filedocumented in this encounter
--- OUTSIDE RECORDS SUMMARY | 2025-03-08 13:19 | XMS_ITS | Encounter Summary ---
Author Organization [employer] ([place], [place], [place], [place]) Address [address] [place] [address] Care Team Providers Care Religious Education Coordinator Name Role Phone Unavailable Primary Care Provider Unavailabl e Encounter Details Date Type Department Care Team (Late st Contact Info) Description 07/23/2021 Transcribed Document [facility] [place] Family Medicine [address] [place] [address] ProviderTg MD [address] [place] [address] Social History Tobacco Use Types Packs/Day Years Used Date Smoking Tobacco: Never Assessed Comments Unknown Sex and Gender Information Value Date Recorded Sex Assigned at Not on file Legal Sex Female 2:39 PM CDT Gender Identity Not on file Sexual Orientation Not on file documented as of this encounter Miscellaneous Notes * Cerner Conversion Note - Historical ProviderMD - 07/23/2021 7:32 AM GENERAL PRODUCTION LABORER Event Note Entered On: 07/23/2021 7:37 EST Performed On: 07/23/2021 7:32 EST by Toya Butler RN-PATIENT CARE BEDSIDE NON-EXEMPT Event Note Description of Event : Lillian Chambers called to follow up patient and lithium levels, orders made to increase fluids. Plans for possible HD, orders made for dialysis port. Toya Butler RN-PATIENT CARE BEDSIDE NON-EXEMPT - 07/23/2021 7:32 EST documented in this encounter Plan of Treatment Not on file documented as of this encounter Visit Diagnoses Not on filedocumented in this encounter
--- OUTSIDE RECORDS SUMMARY | 2025-03-08 13:19 | XMS_ITS | Encounter Summary ---
Author Organization [employer] ([place], [place], [place], [place]) Address [address] [place] [address] Care Team Providers Care Bank Messenger Name Role Phone Unavailable Primary Care Provider Unavailabl e Encounter Details Date Type Department Care Team (Late st Contact Info) Description 06/26/2021 Transcribed Document [facility] [place] [address] [place] [address] ProviderTg MD [address] [place] [address] Social History Tobacco Use Types Packs/Day Years Used Date Smoking Tobacco: Never Assessed Comments Unknown Sex and Gender Information Value Date Recorded Sex Assigned at Not on file Legal Sex Female 2:39 PM CDT Gender Identity Not on file Sexual Orientation Not on file documented as of this encounter Miscellaneous Notes * Cerner Conversion Note - Tg Jones MD - 06/26/2021 1:12 PM CDT Patient: SUDHA TIMMONS Age: 75 [...] Contrast -strict intake and output - Sodium trend:145-->143-->143-->139-->138-->136-->135 - Transfuse to keep H/H greater than 7/21 -Thanks for consultation, we will follow along with you periodically VTE Prophylaxis - Medical Sequential Compression Device Start: 06/07/21 14:19:00 EDT, Bilateral, Length: Knee High, While patient is in bed, Continuous Order (CARA DE LA ROSA) Subjective Patient was seen and evaluated by bedside Vital Signs T: 36.4 ??C TMIN: 36.4 ??C TMAX: 36.9 ??C HR: 99(Monitored) RR: 18 BP: 121/69 SpO2: 92% Oxygen Settings (Last) Oxygen Therapy Mode: Room air (06/26/21 05:37:00) Oxygen Flow Rate: 1.5 Liter/Min (06/26/21 08:00:00) Intake & Output Totals Last 24 Hours (7a-7a) Input Total: 220 mL Output Total: 0 mL Balance: 220 mL Physical Exam General: more alert and [...] Result Date/Time Sodium Level 135 mmol/L (Low) 06/26/2021 05:56 EDT Potassium Level 4.5 mmol/L 06/26/2021 05:56 EDT Chloride Level 104 mmol/L 06/26/2021 05:56 EDT Carbon Dioxide Level 21 mmol/L 06/26/2021 05:56 EDT Anion Gap 14 06/26/2021 05:56 EDT Glucose Level 77 mg/dL 06/26/2021 05:56 EDT Blood Urea Nitrogen 21 mg/dL 06/26/2021 05:56 EDT Creatinine Level 0.80 mg/dL 06/26/2021 05:56 EDT eGFR >60 mL/min/1.73m2 06/26/2021 05:56 EDT eGFR NonAfrican >60 mL/min/1.73m2 06/26/2021 05:56 EDT Bun/Creatinine 26.2 (High) 06/26/2021 05:56 EDT Calcium Level 8.4 mg/dL 06/26/2021 05:56 EDT Magnesium Level 2.0 mg/dL 06/26/2021 05:56 EDT Device Comment 1 Notified Nurse RBV 06/26/2021 11:22 EDT Device Comment 1 Notified Nurse RBV 06/26/2021 05:41 EDT Device Comment 1 Notified Nurse RBV 06/26/2021 01:56 EDT Device Comment 1 Notified MD RBV 06/25/2021 17:06 EDT Glucose POC2 116 mg/dL (High) 06/26/2021 11:22 EDT Glucose POC2 89 mg/dL 06/26/2021 05:41 EDT Glucose POC2 94 mg/dL 06/26/2021 01:56 EDT Glucose POC2 155 mg/dL (High) 06/25/2021 17:06 EDT WBC 7.5 K/uL 06/26/2021 05:56 EDT RBC 2.51 Million/uL (Low) 06/26/2021 05:56 EDT Hgb 8.3 g/dL (Low) 06/26/2021 05:56 EDT Hct 25.3 % (Low) 06/26/2021 05:56 EDT MCV 100.8 fL (High) 06/26/2021 05:56 EDT MCH 33.1 pg (High) 06/26/2021 05:56 EDT MCHC 32.8 Gram/dL 06/26/2021 05:56 EDT Platelet Count 131 K/uL (Low) 06/26/2021 05:56 EDT MPV 11.7 fL 06/26/2021 05:56 EDT RDW >25.0 % (High) 06/26/2021 05:56 EDT nRBC 0.440 (High) 06/26/2021 05:56 EDT Slide Review No 06/26/2021 05:56 EDT documented in this encounter Plan of Treatment Not on file documented as of this encounter Visit Diagnoses Not on filedocumented in this encounter
--- OUTSIDE RECORDS SUMMARY | 2025-03-08 13:19 | XMS_ITS | Encounter Summary ---
Author Organization [employer] ([place], [place], [place], [place]) Address [address] [place] [address] Care Team Providers Care Metal Moulder'S Assistant Name Role Phone Unavailable Primary Care Provider Unavailabl e Encounter Details Date Type Department Care Team (Late st Contact Info) Description 07/23/2021 Transcribed Document [facility] [place] [address] [place] [address] ProviderTg MD [address] [place] [address] Social History Tobacco Use Types Packs/Day Years Used Date Smoking Tobacco: Never Assessed Comments Unknown Sex and Gender Information Value Date Recorded Sex Assigned at Not on file Legal Sex Female 2:39 PM CDT Gender Identity Not on file Sexual Orientation Not on file documented as of this encounter Miscellaneous Notes * Cerner Conversion Note - Historical ProviderMD - 07/23/2021 5:00 AM AGENCY SALES REPRESENTATIVE Chart Check - Review Order Profile Entered On: 07/25/2021 4:18 EST Performed On: 07/23/2021 5:00 EST by Flaco Monson Lpn Chart Check Powerplans Initiated/Discontinued as Appropriate : Yes All Active Orders Reviewed : Yes Flaco Monson Lpn - 07/25/2021 4:18 EST Electronically signed by Keven [facility] Conversion Segment Producer Cerner at 12/18/2022 9:12 AM CDT documented in this encounter Plan of Treatment Not on file documented as of this encounter Visit Diagnoses Not on filedocumented in this encounter
--- OUTSIDE RECORDS SUMMARY | 2025-03-08 13:19 | XMS_ITS | Encounter Summary ---
Author Organization [employer] ([place], [place], [place], [place]) Address [address] [place] [address] Care Team Providers Care Bisque Brusher Name Role Phone Unavailable Primary Care Provider Unavailabl e Encounter Details Date Type Department Care Team (Late st Contact Info) Description 07/29/2021 Transcribed Document [facility] [place] [address] [place] [address] ProviderTg MD [address] [place] [address] Social History Tobacco Use Types Packs/Day Years Used Date Smoking Tobacco: Never Assessed Comments Unknown Sex and Gender Information Value Date Recorded Sex Assigned at Not on file Legal Sex Female 2:39 PM CDT Gender Identity Not on file Sexual Orientation Not on file documented as of this encounter Miscellaneous Notes * Cerner Conversion Note - Tg ProviderMD - 07/29/2021 10:20 AM SYSTEM CONFIGURATION SPECIALIST Final Discharge Planning Entered On: 07/29/2021 10:24 EST Performed On: 07/29/2021 10:20 EST by PEDRO MARLOW RN-Tubing Assembler Final Discharge Planning Discharge Arrangements : Patient Post-Acute Information Patient Name: SUDHA SOLORZANO Gender: Female : [birth year] Age: 75 Years [place] Referral(s): Service: Organization: Business Address: Phone Number: [facility] [address] [place], [address] Patient Offered Choice/Affiliations Explained : Yes Designation of Choice Signed : Yes Important Medicare Message Reviewed With : Patient, Family member Transportation Needs : Non Medical Stretcher Discharge Transportation Arrangement Cmt : [facility]/stretcher at 1500 Follow Up Appointment Scheduled : No (Comment: PCP appointment to be made when patient is discharged from Rehab [PEDRO MARLOW RN-Tubing Assembler - 07/29/2021 10:20 EST] ) Is Patient High/Moderate Readmission Risk? : Yes Patient/Family Notified of Plan : Yes Support Person/Pt Rep Notified of Plan : Yes Patient/Family Notified : Patient/Son Shawn Is Patient Ready for Discharge? : Yes Physician Notified Patient is Ready for Discharge? : Yes Discharge To Care Management : SNF with Medicare Certification-03 PEDRO MARLOW RN-Tubing Assembler - 07/29/2021 10:20 EST Final Narrative Note Final Narrative Note : RAR Moderate ELOS: 2 days HD#8 Adm 06/07 - 06/28/2021 Covid PNA PE 75 [place]. 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 Consult: Nephrology 07/23 Hugo Cath Placed 07/23 1st HD DCP: Back to [place] on Wednesday, 07/29. Transportation by [facility]/stretcher at 1500 Trip#[id number]. Patient's son Shawn in agreement with the plan. PAS formed signed. Covid test negative. PEDRO MARLOW RN-Tubing Assembler - 07/29/2021 10:20 EST Electronically signed by Julian Baca Conversion Plate Glass Installer Helper Arlenener at 12/18/2022 9:17 AM CDT documented in this encounter Plan of Treatment Not on file documented as of this encounter Visit Diagnoses Not on filedocumented in this encounter
--- OUTSIDE RECORDS SUMMARY | 2025-03-08 13:19 | XMS_ITS | Encounter Summary ---
Author Organization [employer] ([place], [place], [place], [place]) Address [address] [place] [address] Care Team Providers Care Cottrell Blower Name Role Phone Unavailable Primary Care Provider Unavailabl e Encounter Details Date Type Department Care Team (Late st Contact Info) Description 07/23/2021 Transcribed Document [facility] [place] Family Medicine [address] [place] [address] ProviderTg MD [address] [place] [address] Social History Tobacco Use Types Packs/Day Years Used Date Smoking Tobacco: Never Assessed Comments Unknown Sex and Gender Information Value Date Recorded Sex Assigned at Not on file Legal Sex Female 2:39 PM CDT Gender Identity Not on file Sexual Orientation Not on file documented as of this encounter Miscellaneous Notes * Cerner Conversion Note - Tg Jones MD - 07/23/2021 9:19 AM ROUTE CDL DRIVER Patient: SUDHA TIMMONS Age: 75 Years Sex: Female : 1945 Assessment/Plan Acute metabolic encephalopathy secondary to lithium toxicity. The patient has a history of bipolar disorder, was on lithium. [place] level was elevated 3.2 to start with. [...] a high risks for fluid overload We will arrange for dialysis catheter placement And dialyze at least 4 hours to remove lithium extracorporeally Thank you for getting [facility] [...] Order (LAURE COVINGTON) Subjective Patient was seen by bedside and evaluated Vital Signs T: 36.8 ??C TMIN: 36.8 ??C TMAX: 37.3 ??C HR: 100(Monitored) RR: 18 BP: 148/62 SpO2: 97% Oxygen Settings (Last) Oxygen Therapy Mode: Room air (07/23/21 05:09:00) Intake & Output Totals Last 24 Hours (7a-7a) Input Total: 60 mL Output Total: 3150 mL Balance: -3090 mL Physical Exam GENERAL APPEARANCE: This is [...] Test Name Test Result Date/Time Sodium Level 152 mmol/L (High) 07/23/2021 04:42 EST Potassium Level 4.2 mmol/L 07/23/2021 04:42 EST Chloride Level 127 mmol/L (High) 07/23/2021 04:42 EST Carbon Dioxide Level 22 mmol/L 07/23/2021 04:42 EST Anion Gap 7 (Low) 07/23/2021 04:42 EST Glucose Level 126 mg/dL (High) 07/23/2021 04:42 EST Blood Urea Nitrogen 7 mg/dL 07/23/2021 04:42 EST Creatinine Level 0.70 mg/dL 07/23/2021 04:42 EST eGFR >60 mL/min/1.73m2 07/23/2021 04:42 EST eGFR NonAfrican >60 mL/min/1.73m2 07/23/2021 04:42 EST Bun/Creatinine 10.0 07/23/2021 04:42 EST Calcium Level 8.8 mg/dL 07/23/2021 04:42 EST Device Comment 1 Notified Nurse RBV 07/23/2021 05:29 EST Device Comment 1 Notified Nurse RBV 07/22/2021 21:17 EST Glucose POC2 119 mg/dL (High) 07/23/2021 05:29 EST Glucose POC2 81 mg/dL 07/22/2021 21:17 EST WBC 8.7 K/uL 07/23/2021 04:42 EST RBC 2.40 Million/uL (Low) 07/23/2021 04:42 EST Hgb 8.5 g/dL (Low) 07/23/2021 04:42 EST Hct 27.1 % (Low) 07/23/2021 04:42 EST MCV 112.9 fL (High) 07/23/2021 04:42 EST MCH 35.4 pg (High) 07/23/2021 04:42 EST MCHC 31.4 Gram/dL (Low) 07/23/2021 04:42 EST Platelet Count 220 K/uL 07/23/2021 04:42 EST MPV 10.9 fL 07/23/2021 04:42 EST RDW 20.6 % (High) 07/23/2021 04:42 EST Slide Review No 07/23/2021 04:42 EST [place] Level 2.3 mmol/L (Critical) 07/23/2021 06:21 EST [place] Level 2.4 mmol/L (Critical) 07/23/2021 00:25 EST [place] Level 2.5 mmol/L (Critical) 07/22/2021 17:13 EST [place] Level 2.7 mmol/L (Critical) 07/22/2021 09:54 EST documented in this encounter Plan of Treatment Not on file documented as of this encounter Visit Diagnoses Not on filedocumented in this encounter
--- OUTSIDE RECORDS SUMMARY | 2025-03-08 13:19 | XMS_ITS | Encounter Summary ---
Author Organization [employer] ([place], [place], [place], [place]) Address [address] [place] [address] Care Team Providers Care Class C Truck Driver Name Role Phone Unavailable Primary Care Provider Unavailabl e Encounter Details Date Type Department Care Team (Late st Contact Info) Description 06/25/[address] [facility] [place] Family Medicine [address] [place] [address] ProviderTg MD [address] [place] [address] Social History Tobacco Use Types Packs/Day Years Used Date Smoking Tobacco: Never Assessed Comments Unknown Sex and Gender Information Value Date Recorded Sex Assigned at Not on file Legal Sex Female 2:39 PM CDT Gender Identity Not on file Sexual Orientation Not on file documented as of this encounter Miscellaneous Notes * Cerner Conversion Note - Tg Jones MD - 06/25/2021 9:16 PM CDT Patient: SUDHA TIMMONS Age: 75 [...] alert, initiating conversation, slow progress with PT ROS - not available - discussed with [...] Last Charted Minimum Maximum Temp 97.8 (JUN 25:26) 97.8 (JUN 25 20:26) 98.2 (JUN 25 00:57) Mon HR 101 (JUN 25 20:26) 90 (JUN 25 05:05) 108 (JUN 25 09:55) Resp Rate 18 (JUN 25 20:26) 18 (JUN 25 00:57) 18 (JUN 25 00:57) SBP 120 (JUN 25 20:26) 120 (JUN 25 20:26) H 142 (JUN 25 05:05) DBP 78 (JUN 25 20:26) 67 (JUN 25 00:57) 83 (JUN 25 10:36) MAP 90 (JUN 25 20:26) 86 (JUN 25 17:20) 104 (JUN 25 10:36) SpO2 96 (JUN 25 20:26) L 91 (JUN 25 05:05) 97 (JUN 25 10:36) General: no distress, On RA Eye: Normal [...] (Last four charted values) WBC 8.5 (JUN 25) H 10.9 (JUN 24) 10.2 (JUN 23) H 10.6 (JUN 22) HB L 8.1 (JUN 25) L 7.6 (JUN 24) L 7.8 (JUN 23) L 6.3 (JUN 23) HCT L 25.0 (JUN 25) L 23.3 (JUN 24) L 19.3 (JUN 23) L 19.5 (MAY 24) Plt L 152 (JUN 25) L 142 (JUN 24) L 152 (JUN 23) 168 (MAY 24) Na 136 (JUN 25) 136 (JUN 24) 138 (MAY 25) 139 (MAY 24) K 4.9 (JUN 25) 4.8 (JUN 24) 4.7 (MAY 25) 4.6 (MAY 24) Cl 106 (JUN 25) 105 (JUN 24) 107 (JUN 23) 110 (MAY 24) CO2 21 (JUN 25) 24 (JUN 24) 25 (OCT 25) 23 (OCT 24) BUN 21 (JUN 25) H 23 (JUN 24) H 26 (MAY 25) H 28 (MAY 24) Cr 0.80 (JUN 25) 0.80 (JUN 24) 0.80 (MAY 25) 0.80 (MAY 24) Glu R 80 (JUN 25) 82 (OCT ) H 140 (OCT 25) H 140 (OCT 24) Ca L 8.3 (JUN 25) 8.5 (JUN 24) L 8.1 (MAY 25) L 7.9 (MAY 24) Lactic 1.6 (MAY 19) 1.0 (OCT 09) PT 11.4 (JUN 08) 11.4 (JUN [...] Agree with stopping Zosyn -- continue minocycline to 06/26 -- continue atovaquone while on significant doses of prednisone ie 10 mg or more Stop covid isolation based on onset of symptoms 06/04 Complex case documented in this encounter Plan of Treatment Not on file documented as of this encounter Visit Diagnoses Not on filedocumented in this encounter
--- OUTSIDE RECORDS SUMMARY | 2025-03-08 13:19 | XMS_ITS | Encounter Summary ---
Author Organization [employer] ([place], [place], [place], [place]) Address [address] [place] [address] Care Team Providers Care Oil Refiner Name Role Phone Unavailable Primary Care Provider Unavailabl e Encounter Details Date Type Department Care Team (Late st Contact Info) Description 06/25/2021 Transcribed Document [facility] [place] [address] [place] [address] ProviderTg MD [address] [place] [address] Social History Tobacco Use Types Packs/Day Years Used Date Smoking Tobacco: Never Assessed Comments Unknown Sex and Gender Information Value Date Recorded Sex Assigned at Not on file Legal Sex Female 2:39 PM CDT Gender Identity Not on file Sexual Orientation Not on file documented as of this encounter Miscellaneous Notes * Cerner Conversion Note - Tg ProviderMD - 06/25/2021 4:51 PM CDT On Going Discharge Planning Entered On: 06/25/2021 16:53 EDT Performed On: 06/25/2021 16:51 EDT by Patsy Koehler V, Personnel Officer Analytical Clerk Care Management Progress Note Discharge Arrangements : [...] Multidisciplinary Rounds? : Yes Patsy Koehler V Personnel Officer Analytical Clerk - 06/25/2021 16:51 EDT Narrative Progress Note Narrative Progress Note : LOS 17, ELOS-5 RSR-moderate Per MD, patient is eating well after CorPak removal few days ago. Hemoglobin is remained stable after stopping therapeutic Lovenox. She is medically stable for discharge to rehab. CM sent updated clinical and therapy notes to [facility] and SNF. Out of COVID isolation. DCP-Transfer to rehab/SNF pending bed offer. Historical Progress Note : LOS 17, ELOS-5 RSR-moderate Covid + Remains on isolation. [facility] has declined. [facility] is following but no bed offer. ID following, currently not treating. Per attending, corpak was dc'd and mentation has improved and off restraints. DCP: no current bed offers from referrals. [facility] was contacted via [employer] to request bed. DANIELLE PHIPPS, RN-Doll Eye Setter - 06/24/21 15:53:37 HD#15, ELOS-5 RSR-moderate, Boost-5 [...] restraints or mittens now. CM to follow Patys Koehler V Personnel Officer Analytical Clerk - 06/23/21 12:29:00 HD#12, ELOS-5 RSR-moderate, Boost-5 COVID+. On room air per RN. 2L. Patient Still has mittens. Corpak for TF. ST evaluated and recommended pureed diet and TF. On IV zosyn. HGB at 8.9. Barriers to rehab placement: mittens and corpak and no PT/OT evaluations. CM has sent rehab referrals via [facility]. CM to follow. oes not speak or follow any other commands. Current on EEG monitor. She has been hemodynamically stable with Tmax 99.8. Currently tolerating TF via corpak. No output documented for patient. Patsy Koehler V, Personnel Officer [facility] - 06/20/21 11:50:46 HD#12, ELOS-5 RSR-moderate, Boost-5 [...] medically ready for dc. Patsy Koehler V, Personnel Officer [facility] - 06/20/21 11:57:36 HD#12, ELOS-5 RSR-moderate, Boost-5 [...] via [employer]. CM to follow. Patsy Koehler V, Personnel Officer [facility] - 06/20/21 11:54:35 HD#11, ELOS-5 RSR-moderate, Boost-5 COVID+. On 2L NC. Still has mittens. Corpak for TF. ST evaluated and recommended pureed diet and TF. On IV zosyn. HGB at 8.9. Barriers to rehab placement: mittens and corpak and no PT/OT evaluations. CM has sent rehab referrals via [employer]. CM to follow. Patsy Koehler V Personnel Officer [facility] - 06/19/21 15:03:50 HD#10, ELOS-5 RSR-moderate, Boost-5 COVID+.Now on 4L NC. Patient awake, but remains confused and unable to converse appropriately per MD. Still in restraints. Patient passed her FEES. Diet advance to puree. Hopefully, her corpak will be discontinued soon. Brain MRI today. Still on IV abx. WBC and LDH trending down. CM sent updated clinical/therapy notes to [facility] for possible rehab placement. CM to follow. Patsy Koehler V Personnel Officer [facility] - 06/18/21 15:20:04 HD#9, ELOS-5 RSR-moderate, Boost-5 COVID+. On 6L HFNC. Ongoing confusion. Restraints continued. On IV rocephin, micafuntgin and dexamethazone. Tolerating TF via corpak. DCP-SNF/ [facility] for rehab pending medical progress. Patsy Koehler V, Personnel Officer [facility] - 06/17/21 12:01:09 HD#8, ELOS-5 RSR-moderate, Boost-5 COVID+. On 5L HFNC. Ongoing confusion and attempting to pull at lines. In restraints. Leukocytosis worsening, LDH and d-dimer trending up, ferritin trending down. Tolerating TF via corpak. MD plans to get a neurology consult due to pt's confusion. CM to follow DCP-SNF for rehab pending medical progress. Patsy Koehler V Personnel Officer [facility] - 06/16/21 13:18:40 HD#5, ELOS-5 RSR-moderate, Boost-[address] Narda Sommer, patient with further worsening of respiratory failure. Tachycardia. Patient is criticcally ill and may need intubation. CR chest today. Patsy Koehler V Personnel Officer [facility] - 06/13/21 09:26:38 HD#5, ELOS-5 RSR-moderate, Boost-[address] Narda Sommer, patient with further worsening of respiratory failure. Tachycardia. Patient is critically ill and may need intubation. CR chest today showed Slightly worsening bilateral opacities. Pulmonary edema is not excluded. Corpak placed. CM to follow. DCP-pending on patient's medical progress. Patsy Koehler V Personnel Officer [facility] - 06/13/21 09:29:02 HD#4, ELOS-5 RSR-moderate, Boost-5 [...] transfer to the ICU. CM to follow. DCP-[facility] vs SNF when medically ready. Patsy Koehler V Personnel Officer Analytical Clerk - 06/12/21 12:12:00 HD#4, ELOS-5 RSR-moderate, Boost-5 COVID+. Patient currently on optiflow FiO2 60%, with continued increased confusion and fidgeting in the bed. ID and Pulm consulted and are making med adjustments. Right small PE. On IV abx. Per RN, patient with tachycardia the other night. Now has mittens. Not eating or drinking per RN. DCP-[facility] pending medical progress. Patient lives with her 98 yo father and adult son. Patsy Koehler V Personnel Officer Analytical Clerk - 06/11/21 12:10:01 HD#4, ELOS-5 RSR-moderate, Boost-5 Patient currently on optiflow FiO2 70%, with continued increased confusion and fidgeting in the bed. ID and Pulm consulted and are making med adjustments. Per RN, patient with tachycardia the other night. DCP-[facility]/SNF pending medical progress. Patient lives with her 98 yo father and adult son. Patsy Koehler V Personnel Officer Analytical Clerk - 06/11/21 10:00:55 HD#3, ELOS-not recorded, RSR-moderate, Boost-4 Per MD, patient is clinical deconditioning from NC to optiflow at 60% Fi02 with increased confusion. ID, Cardiology and Pulm consulted. HIGH RISK FOR INTUBATION. Patient had a abnormal ECHO with PE. On IV cefazolin and IV steroids. CM sent referrals to [facility] and [facility] due to being COVID+ for rehab. CM to follow. Patsy Koehler V Personnel Officer Analytical Clerk - 06/10/21 10:25:43 HD#2, ELOS-not recorded, RSR-moderate, Boost-4 CM sent rehab referrals to [facility] and [facility] since they accept COVID+ patients. Currently patient is on 60% Fi02. PEr MD, patient's respiratory status is worsening. CM to follow pt's progress for dc planning. Patsy Koehler V Personnel Officer Analytical Clerk - 06/09/21 16:10:00 Patsy Koehler V, Personnel Officer Analytical Clerk - 06/25/2021 16:51 EDT documented in this encounter Plan of Treatment Not on file documented as of this encounter Visit Diagnoses Not on filedocumented in this encounter
--- OUTSIDE RECORDS SUMMARY | 2025-03-08 13:19 | XMS_ITS | Encounter Summary ---
Author Organization [employer] ([place], [place], [place], [place]) Address [address] [place] [address] Care Team Providers Care Course Instructor Name Role Phone Unavailable Primary Care Provider Unavailabl e Encounter Details Date Type Department Care Team (Late st Contact Info) Description 08/13/2021 Transcribed Document [facility] [place] [address] [place] [address] ProviderTg MD [address] [place] [address] Social History Tobacco Use Types Packs/Day Years Used Date Smoking Tobacco: Never Assessed Comments Unknown Sex and Gender Information Value Date Recorded Sex Assigned at Not on file Legal Sex Female 2:39 PM CDT Gender Identity Not on file Sexual Orientation Not on file documented as of this encounter Miscellaneous Notes * Cerner Conversion Note - Tg ProviderMD - 08/13/2021 1:41 AM SECOND BALLER ED Discharge Entered On: 08/13/2021 1:42 EST Performed On: 08/13/2021 1:41 EST by Chago Fabian RN-PATIENT CARE BEDSIDE NON-EXEMPT Discharge Process Patient Disposition : Discharge Personal Belongings With Patient : Yes Patient Education Completed : Yes Teaching Evaluation : Verbalizes understanding IV Discontinued : Not applicable Nursing Documentation Completed : Yes Chago Fabian RN-PATIENT CARE BEDSIDE NON-EXEMPT - 08/13/2021 1:41 EST ED Discharge Discharge To : Assisted living Name of Receiving Facility/Provider : [facility] Mode Of Departure : Ambulance/BLS Accompanied By : cabin man Discharge Instructions Reviewed With, Opportunity For Questions Given : Patient Prescriptions Given to Patient : No Chago Fabian RN-PATIENT CARE BEDSIDE NON-EXEMPT - 08/13/2021 1:41 EST documented in this encounter Plan of Treatment Not on file documented as of this encounter Visit Diagnoses Not on filedocumented in this encounter
--- OUTSIDE RECORDS SUMMARY | 2025-03-08 13:19 | XMS_ITS | Encounter Summary ---
Author Organization [employer] ([place], [place], [place], [place]) Address [address] [place] [address] Care Team Providers Care Refuge Manager Name Role Phone Unavailable Primary Care Provider Unavailabl e Encounter Details Date Type Department Care Team (Late st Contact Info) Description 07/24/2021 Transcribed Document [facility] Family Medicine [address] [place] [address] ProviderTg MD [address] [place] [address] Social History Tobacco Use Types Packs/Day Years Used Date Smoking Tobacco: Never Assessed Comments Unknown Sex and Gender Information Value Date Recorded Sex Assigned at Not on file Legal Sex Female 2:39 PM CDT Gender Identity Not on file Sexual Orientation Not on file documented as of this encounter Miscellaneous Notes * Cerner Conversion Note - Historical ProviderMD - 07/24/2021 5:00 AM WOOD LATHER Chart Check - Review Order Profile Entered On: 07/24/2021 4:44 EST Performed On: 07/24/2021 5:00 EST by Clarisa Howard RN Chart Check Powerplans Initiated/Discontinued as Appropriate : Yes All Active Orders Reviewed : Yes Clarisa Howard RN - 07/24/2021 4:44 EST Electronically signed by Keven [facility] Conversion Machine Stonecutter Cerner at 12/18/2022 9:09 AM CDT documented in this encounter Plan of Treatment Not on file documented as of this encounter Visit Diagnoses Not on filedocumented in this encounter
--- OUTSIDE RECORDS SUMMARY | 2025-03-08 13:19 | XMS_ITS | Encounter Summary ---
Author Organization [employer] ([place], [place], [place], [place]) Address [address] [place] [address] Care Team Providers Care Legal Office Administrator Name Role Phone Unavailable Primary Care Provider Unavailabl e Encounter Details Date Type Department Care Team (Late st Contact Info) Description 06/27/2021 Transcribed Document [facility] [place] [address] [place] [address] ProviderTg MD [address] [place] [address] Social History Tobacco Use Types [...] Tg ProviderMD - 06/27/2021 5:00 AM CDT Height and Weight, Routine Entered On: 06/27/2021 4:34 EDT Performed On: 06/27/2021 5:00 EDT by Ran Chew RN-PATIENT CARE BEDSIDE NON-EXEMPT Height and Weight, Routine Routine Weight Source : Bed scale Routine Weight Entry Format : Lyon Routine Weight, Pounds : 253 lb Routine Weight, Ounces : 3 oz Routine Weight Calculation : 115.09 kg Height Source : Stated Height Entry Format : Lyon Height, Feet : 5 ft Height, Inches : 2 Inch Clinical Height : 157.48 cm Body Surface Area (BSA), Routine : 2.11 m2 Body Mass Index (BMI), Routine : 46.41 kg/m2 Ran Chew RN-PATIENT CARE BEDSIDE NON-EXEMPT - 06/27/2021 4:34 EDT documented in this encounter Plan of Treatment Not on file documented as of this encounter Visit Diagnoses Not on filedocumented in this encounter
--- OUTSIDE RECORDS SUMMARY | 2025-03-08 13:19 | XMS_ITS | Encounter Summary ---
Author Organization [employer] ([place], [place], [place], [place]) Address [address] [place] [address] Care Team Providers Care Ticket Printer And Tagger Name Role Phone Unavailable Primary Care Provider Unavailabl e Encounter Details Date Type Department Care Team (Late st Contact Info) Description 07/24/2021 Transcribed Document [facility] [place] Family Medicine [address] [place] [address] ProviderTg MD [address] [place] [address] Social History Tobacco Use Types Packs/Day Years Used Date Smoking Tobacco: Never Assessed Comments Unknown Sex and Gender Information Value Date Recorded Sex Assigned at Not on file Legal Sex Female 2:39 PM CDT Gender Identity Not on file Sexual Orientation Not on file documented as of this encounter Miscellaneous Notes * Cerner Conversion Note - Historical ProviderMD - 07/24/2021 7:27 AM BELLHOP Event Note Entered On: 07/24/2021 7:32 EST Performed On: 07/24/2021 7:27 EST by Clarisa Howard RN Event Note Event Date/Time : 07/24/2021 6:00 EST Description of Event : Patient has order to be NPO and was not alert & oriented enough to answer orientation questions , often mumbled answers & did not show signs of it being safe to administer Po medication so patient's oral medications were withheld. Patient did make more eye contact, answered some yes/no questions appropriately, and tremors and episodes of crying decreased through out the night. Clarisa Howard RN - 07/24/2021 7:27 EST Electronically signed by Keven [facility] Conversion Retort Feeder Ground Bone Cerner at 12/18/2022 9:07 AM CDT documented in this encounter Plan of Treatment Not on file documented as of this encounter Visit Diagnoses Not on filedocumented in this encounter
--- OUTSIDE RECORDS SUMMARY | 2025-03-08 13:19 | XMS_ITS | Encounter Summary ---
Author Organization [employer] ([place], [place], [place], [place]) Address [address] [place] [address] Care Team Providers Care Register Clerk Name Role Phone Unavailable Primary Care Provider Unavailabl e Encounter Details Date Type Department Care Team (Late st Contact Info) Description 06/25/2021 Transcribed Document [facility] [place] [address] [place] [address] ProviderTg MD [address] [place] [address] Social History Tobacco Use [...] Note - Tg Jones MD - 06/25/2021 10:49 AM CDT Patient: SUDHA SOLORZANO Age: 75 [...] Contrast -strict intake and output - Sodium trend:145-->143-->143-->139-->138-->136 - Transfuse to keep H/H greater than 7/21 -Thanks for consultation, we will follow along with you periodically VTE Prophylaxis - Medical Sequential Compression Device Start: 06/07/21 14:19:00 EDT, Bilateral, Length: Knee High, While patient is in bed, Continuous Order ([facility]) Subjective Patient was seen and evaluated by bedside Vital Signs T: 36.7 ??C TMIN: 36.5 [...] 1 Notified MD RBV 06/24/2021 16:56 EDT Device Comment 1 Notified MD RBV 06/24/2021 11:00 EDT Glucose POC2 183 mg/dL (High) 06/25/2021 10:29 EDT Glucose POC2 81 mg/dL 06/25/2021 06:11 EDT Glucose POC2 100 mg/dL 06/24/2021 23:36 EDT Glucose POC2 132 mg/dL (High) 06/24/2021 16:56 EDT Glucose POC2 100 mg/dL 06/24/2021 11:00 EDT WBC 8.5 K/uL 06/25/2021 06:54 EDT [...] EDT Slide Review No 06/25/2021 06:54 EDT Electronically signed by Keven, [facility] Conversion Produce Assistant Cerner at 12/18/2022 9:13 AM CDT documented in this encounter Plan of Treatment Not on file documented as of this encounter Visit Diagnoses Not on filedocumented in this encounter
--- OUTSIDE RECORDS SUMMARY | 2025-03-08 13:19 | XMS_ITS | Encounter Summary ---
Author Organization [email or web address] ([place], [place], [place], [place]) Address [address] [place] [address] Care Team Providers Care Group Fitness Assistant Department Head Name Role Phone Unavailable Primary Care Provider Unavailabl e Encounter Details Date Type Department Care Team (Late st Contact Info) Description 07/23/2021 Transcribed Document [facility] [address] [place] [address] Bandar Orellana MD [address] [place], [place] [id number] Social History Tobacco Use Types Packs/Day Years Used Date Smoking Tobacco: Never Assessed Comments Unknown Sex and Gender Information Value Date Recorded Sex Assigned at Not on file Legal Sex Female 2:39 PM CDT Gender Identity Not on file Sexual Orientation Not on file documented as of this encounter Miscellaneous Notes * Cerner Conversion Note - Bandar Orellana MD - 07/23/2021 9:00 AM EST Patient: SUDHA TIMMONS Age: 75 years Sex: Female : 1945 Associated Diagnoses: None Author: BANDAR ORELLANA MD-INT Subjective Chief complaint. June. Patient returned from hemodialysis. Oriented to name but very poor historian. Denies fevers or chills. No chest pain palpitations. Some tenderness with palpation to the lower extremities really talking. Patient tends to repeat what I say to her. Review of Systems Constitutional: Weakness, Decreased activity, No fever, No chills. Respiratory: No shortness of breath, No cough. Cardiovascular: No chest pain, No palpitations. Gastrointestinal: No nausea, No vomiting. Genitourinary: No dysuria. Neurologic: Confusion, Not alert and oriented X4. Psychiatric: No anxiety, No depression. Health Status Allergies: Allergic Reactions (Selected) Severity Not Documented Anaprox- Rash. Codeine- No reactions were documented. Latex- Itching. Naproxen- No reactions were documented., Allergies (4) Active Reaction Anaprox Rash codeine None Documented Latex Itching naproxen None Documented Problem list: Medical Hip pain, right / SNOMED CT 3471736770 / Confirmed At risk for sleep apnea / IMO 23494701 / Confirmed At risk for violence / IMO 06278324 / Confirmed Concussion / SNOMED CT 0710596142 / Confirmed concussion with loss of memory+ Disease caused by 2019 novel coronavirus / SNOMED CT 1288910534 / Confirmed Problem added by a rule: [id number]. Fall / SNOMED CT 4694157 / Confirmed HTN (hypertension) / SNOMED CT 4730487823 / Confirmed Depression / SNOMED CT 4869450346 / Confirmed Numbness and tingling / SNOMED CT 1113192823 / Confirmed numbness and tingling right thigh area to toes Osteoarthritis / SNOMED CT 9516035105 / Confirmed Pain / SNOMED CT 94813807 / Confirmed right buttocks pain Leg pain, right / SNOMED CT 876075372 / Confirmed sleep apnea / SNOMED CT 290216793 / Confirmed Insomnia / SNOMED CT 874920836 / Confirmed Tremor / SNOMED CT 87881678 / Confirmed, Active Problems (17) At risk [...] Rocephin: 2 Gram, 100 mL/Hr, IV Piggyback, [id number] Tylenol: 650 mg, Oral, Q4H, PRN: Fever [...] Tab, Oral, Daily, 30 Tab, 0 Refill(s) Eva 5 mg-325 mg oral tablet: 1 Tab, [...] Vitamins oral tablet 1 Tab, Oral, Daily Eva 5 mg-325 mg oral tablet 1 Tab, [...] Push, Q12H cefTRIAXone 2 Gram, IV Piggyback, [id number] famotidine 20 mg tab 20 mg 1 [...] hrs) Last Charted Minimum Maximum Temp 98.2 (JUL 23 05:09) 98.2 (JUL 23 05:09) 99.1 (JUL 22 23:12) Mon HR 100 (JUL 23 05:09) 100 (JUL 23 02:00) 104 (JUL 22 20:17) Resp Rate 18 (JUL 23 05:00) 18 (JUL 22 20:00) 18 (JUL 22 20:00) SBP H 148 (JUL 23 05:09) 140 (JUL 22 20:17) H 149 (JUL 22 23:12) DBP 62 (JUL 23 05:09) 62 (JUL 23 05:09) 86 (JUL 22 20:17) MAP 86 (JUL 23 05:09) 86 (JUL 23 05:09) 99 (JUL 22 20:17) SpO2 97 (JUL 23 05:) 95 (JUL 22 23:12) 100 (JUL 22:) Physical Examination VS/Measurements Vitals Signs (last 24 hrs) Last Charted Minimum Maximum Temp 98.2 (JUL 23 05:09) 98.2 (JUL 23 05:09) 99.1 (JUL 22:12) Mon HR 100 (JUL 23 05:09) 100 (JUL 23 02:00) 104 (JUL 22 20:17) Resp Rate 18 (JUL 23 05:00) 18 (JUL 22 20:00) 18 (JUL 22 20:00) SBP H 148 (JUL 23 05:09) 140 (JUL 22 20:17) H 149 (JUL 22 23:12) DBP 62 (JUL 23 05:09) 62 (JUL 23 05:09) 86 (JUL 22 20:17) MAP 86 (JUL 23 05:09) 86 (JUL 23 05:09) 99 (JUL 22 20:17) SpO2 97 (JUL 23 05:09) 95 (JUL 22 23:12) 100 (JUL 22 20:17) General: Alert and oriented, Mild distress, Elderly.. Eye: Pupils are equal, round and reactive [...] Dry, Intact. Neurologic: Alert, Not oriented. Psychiatric: Cooperative, Appropriate mood & affect. Review / Management Results review: Labs (Last four charted values) WBC 8.7 (JUL 23) 6.6 (JUL 22) 9.0 (JUL 21) HB L 8.5 (JUL 23) L 7.9 (JUL 22) L 9.3 (JUL 21) HCT L 27.1 (JUL 23) L 24.6 (JUL 22) L 29.2 (JUL 21) Plt 220 (JUL 23) 191 (JUL 22) 246 (JUL 21) Na H 152 (JUL 23) 144 (JUL 22) 141 (JUL 21) K 4.2 (JUL 23) 4.5 (JUL 22) 4.9 (JUL 21) Cl H 127 (JUL 23) H 118 (JUL 22) H 113 (JUL 21) CO2 22 (JUL 23) 21 (JUL 22) 23 (JUL 21) BUN 7 (JUL 23) 13 (JUL 22) 16 (JUL 21) Cr 0.70 (JUL 23) 0.80 (JUL 22) 1.00 (JUL 21) Glu R H 126 (JUL 23) L 63 (JUL 22) 74 (JUL 21) Ca 8.8 (JUL 23) L 7.6 (JUL 22) 8.6 (JUL 21) Lactic 0.5 (JUL 21) AST 18 (JUL 22) 19 (JUL 21) ALT 17 (JUL 22) 19 (JUL 21) ALK P 123 (JUL 22) H 148 (JUL 21) T Bili 0.7 (JUL 22) 0.5 (JUL 21) PTN L 4.0 (JUL 22) L 4.7 (JUL 21) ALB L 2.3 (JUL 22) L 2.9 (JUL 21) Troponin 0.019 (JUL 21) . Impression and Plan Altered mental status 2/2 lithium toxicity -history of bipolar disorder on lithium, depression, anxiety -CT brain without contrast showed no acute intracranial abnormalities -PT/OT/ST -lithium level trending down, discussed w Dr. Kennedy--IVF, trend, no need for dialysis -May benefit from neuro/psych consult a.m. if no improvement -lithium 3.3 to 2.7 to 2.3 pyuria -add rocephin -cx, old cx reviewed with veliz sensitive e.coli Hypotension with hx of hypertension, resolved macrocytic anemia -hx of B12 anemia (high this admit 1999) -suspect dilutional and about at baseline. hg 7.9 to 8.5 Non hodgkins lymphoma GERD -home meds await pharmacy to reconcile meds discussed w Dr. Kennedy recent covid 19 infection 06/19, July 23, 2021. 35 minutes spent on [...] also improved from 7.9 up to 8.5. [employer] dictation system used. Computer program makes numerous spelling grammar mistakes. If you have any questions or concerns do not hesitate call Dr. Bandar Pruett at cell phone number [phone]. documented in this encounter Plan of Treatment Not on file documented as of this encounter Visit Diagnoses Not on filedocumented in this encounter
--- OUTSIDE RECORDS SUMMARY | 2025-03-08 13:19 | XMS_ITS | Encounter Summary ---
Author Organization [employer] ([place], [place], [place], [place]) Address [address] [place] [address] Care Team Providers Care Healthcare Recruiter Name Role Phone Unavailable Primary Care Provider Unavailcabrera e Encounter Details Date Type Department Care Team (Late st Contact Info) Description 06/20/2021 Transcribed Document [facility] [place] [address] [place] [address] ProviderTg MD [address] [place] [address] Social History Tobacco Use Types Packs/Day Years Used Date Smoking Tobacco: Never Assessed Comments Unknown Sex and Gender Information Value Date Recorded Sex Assigned at Not on file Legal Sex Female 2:39 PM CDT Gender Identity Not on file Sexual Orientation Not on file documented as of this encounter Miscellaneous Notes * Cerner Conversion Note - Tg ProviderMD - 06/20/2021 3:48 PM CDT Treatment Intervention, PT Entered On: 06/25/2021 11:06 EDT Performed On: 06/25/2021 9:26 EDT by Paige Cooper, Physical Therapist General Information, PT Visit Type, PT : Treatment Note Patient Orders : Order Date Order Ordering 06/07/2021 14:19 PT Evaluation and Treatment Ordered By: CARA DE LA ROSA PA 06/08/2021 16:11 PT Additional Treatment Ordered By: KUSHAL CYR PT 06/19/2021 10:48 PT Evaluation and Treatment Ordered By: MARGO AMBRIZ MD-INT 06/19/2021 13:01 Physical Therapy Eval and Treat Ordered By: MARGO AMBRIZ MD-INT 06/20/2021 15:48 PT Additional Treatment Ordered By: MARSHA PATEL, PT Active Diagnoses : 06/07/2021 12:00 Altered mental status 06/07/2021 12:00 Sepsis, unspecified organism 06/07/2021 12:00 Urinary tract infection, site not specified Therapy Diagnosis, PT : Decreased strength, deconditioning, and impaired functional mobility Admission Date : 06/07/2021 12:36 Personal Devices : Personal Devices No Devices Recorded Assistive Devices : Assistive Devices No Devices Recorded General Information Comment, PT : Patient no longer in COVID precautions. Paige Cooper Physical Therapist - 06/25/2021 10:25 EDT General Status Patient Received Status : Supine in bed, Bed alarm activated Treatment Start Time : 06/25/2021 9:03 EDT Patient Left Status : Supine in bed, Bed alarm activated, RN/PCT informed, Communication board completed, All needs met and within reach RN/PCT Informed Comment : Nurse Onur in the room adjusted patient's supplemental oxygen as patient needed throughout PTx session. Treatment End Time : 06/25/2021 9:26 EDT Treatment Time : 23 Minute(s) Paige Cooper Physical Therapist - 06/25/2021 10:25 EDT Intervention Summary O2 Pre-Intervention : room air SpO2 Pre-Intervention : 95 % O2 During Intervention : room air SpO2 During Intervention : 78 % Therapist Assessment During Intervention : Upon sitting EOB initially O2 Post-Intervention : 4LO2NC SpO2 Post-Intervention : 100 % Paige Cooper Physical Therapist - 06/25/2021 10:25 EDT Functional Mobility Mobility Grid Bed Scooting : Rehab Total assistance (Comment: x2; with bed in trendelenberg position [Paige Cooper Physical Therapist - 06/25/2021 10:25 EDT] ) Supine to Sit : Rehab Minimal assistance (Comment: x2 [Paige Cooper Physical Therapist - 06/25/2021 10:25 EDT] ) Sit to Stand : Rehab Maximal assistance (Comment: x2 [Paige Cooper Physical Therapist - 06/25/2021 10:25 EDT] ) Stand to Sit : Rehab Maximal assistance (Comment: x2 [Paige Cooper Physical Therapist - 06/25/2021 10:25 EDT] ) Sit to Supine : Rehab Maximal assistance (Comment: x2 [Paige Cooper Physical Therapist - 06/25/2021 10:25 EDT] ) Paige Cooper Physical Therapist - 06/25/2021 10:25 EDT Bed Mobility Scooting Device : Cloth under pad Supine to Sit Device : Cloth under pad Sit to Stand Device : Belt, gait, Walker, front wheel Stand to Sit Device : Belt, gait, Walker, front wheel Sit to Supine Devices : Cloth under pad Paige Cooper Physical Therapist - 06/25/2021 10:25 EDT Gait Training/Assessment, PT Weight Bearing Status : Full Gait Assistance Level : Unable to assess/activity not appropriate (Comment: Patient unable to complete full sit --> stand transfer this date, gait training not appropriate to attempt. [Paige Cooper Physical Therapist - 06/25/2021 10:25 EDT] ) Paige Cooper Physical Therapist - 06/25/2021 10:25 EDT Cognitive Treatment, PT Orientation : Oriented x 4 Paige Cooper Physical Therapist - 06/25/2021 10:25 EDT Edu Topics Physical Therapy Education Grid Balance Training : Needs reinforcement, Needs further teaching Bed Mobility Training : Needs further teaching, Needs reinforcement Role of Physical Therapy : Verbalizes understanding Use of Assistive Device : Needs further teaching, Needs reinforcement Paige Cooper Physical Therapist - 06/25/2021 10:25 EDT Indication Assesessment, PT Physical Therapy Indicated : Yes Paige Cooper Physical Therapist - 06/25/2021 10:25 EDT Plan of Care, PT PT Tx Plan/Goals Established w Patient : Yes Paige Cooper Physical Therapist - 06/25/2021 10:25 EDT Short Term Goals Mobility/Bed Mobility STG PT Grid Goal #1 Goal #2 Activity : Supine to sit Other: Patient will Roll L and R Assist : Assist, maximal Assist, maximal Date to Meet : 06/27/2021 EDT 06/27/2021 EDT Goal Status : Goal met Goal met Date Met : 06/25/2021 EDT 06/24/2021 EDT Comment : of 2 Paige Cooper Physical Therapist - 06/25/2021 10:25 EDT Paige Cooper Physical Therapist - 06/25/2021 10:25 EDT Other PT STG Grid Goal #1 Date to Meet : 06/15/2021 EDT Goal Status : Not met Paige Cooper Physical Therapist - 06/25/2021 10:25 EDT Real Property Appraiser Goals Mobility/Bed Mobility LTG PT Grid Goal #1 Goal #2 Goal #3 Activity : Supine to sit Other: Patient will Roll L and R Sit to stand Assist : Assist, minimal Assist, minimal Assist, moderate Equipment : Walker, front wheel Date to Meet : 07/04/2021 EDT 07/04/2021 EDT 07/04/2021 EDT Goal Status : Goal met Progressing, continue Intial Goal Date Met : 06/25/2021 EDT Paige Cooper, Physical Therapist - 06/25/2021 10:25 EDT Paige Cooper Physical Therapist - 06/25/2021 10:25 EDT Paige Cooper Physical Therapist - 06/25/2021 10:25 EDT Transfer LTG Grid Goal #1 Destination : Chair, with arms Type : Stand Pivot Sit Assist : Assist, moderate Equipment : Walker, front wheel Date to Meet : 07/04/2021 EDT Goal Status : Intial Goal Paige Cooper Physical Therapist - 06/25/2021 10:25 EDT Ambulation LTG Grid Goal #1 Goal Status : Not met Paige Cooper Physical Therapist - 06/25/2021 10:25 EDT Treatment Note Subjective Comment : Patient agreeable to PTx. Nsg. OK'd PTx. Additional Objective Information : Patient required min A x 2 to sit EOB this date. Once sitting EOB, the patient began to demonstrate increased WOB and SOA. PT educated the patient in pursed lip breathing, however, patient's oxygen saturation dropped to 78% on room air. Nsg called and entered room. Nsg increased patient's supplemental oxygen and the patient improved oxygen saturation to 100%. Patient attempted sit --> stand transfer with max A x 2. She was able to clear bottom off of the bed, however, she was unable to complete a full sit --> stand transfer. Patient then requested to return to supine position and required max A x 2 to complete. Patient required total A x 2 to scoot up and reposition. Assessment : Patient demonstrates improved mobility this date and participation in PTx session. Patient was able to sit EOB for ~5 minutes this date, however, oxygen saturation decreased and nsg increased patient's supplemental oxygen. Plan for Treatment : Con't PTx. Paige Cooper Physical Therapist - 06/25/2021 10:25 EDT Pain Assessment Pain Comment : Patient did not report increased pain this date. Paige Cooper Physical Therapist - 06/25/2021 10:25 EDT Image 1 - Images currently included in the form version of this document have not been included in the text rendition version of the form. Anticipated Discharge Needs, OT/PT Anticipated Discharge to : Unit, jail Recommend Continued Therapy at Discharge : Yes Paige Cooper Physical Therapist - 06/25/2021 10:[address] [facility] PT Charges PT Ther Activities Ea 15 Min : 2 Paige Cooper Physical Therapist - 06/25/2021 10:25 EDT documented in this encounter Plan of Treatment Not on file documented as of this encounter Visit Diagnoses Not on filedocumented in this encounter
--- OUTSIDE RECORDS SUMMARY | 2025-03-08 13:19 | XMS_ITS | Encounter Summary ---
Author Organization [employer] ([place], [place], [place], [place]) Address [address] [place] [address] Care Team Providers Care Pot Firer Name Role Phone Unavailable Primary Care Provider Unavailabl e Encounter Details Date Type Department Care Team (Late st Contact Info) Description 08/12/2021 Transcribed Document [facility] [place] Medicine [address] [place] [address] ProviderTg MD [address] [place] [address] Social History Tobacco Use Types Packs/Day Years Used Date Smoking Tobacco: Never Assessed Comments Unknown Sex and Gender Information Value Date Recorded Sex Assigned at Not on file Legal Sex Female 2:39 PM CDT Gender Identity Not on file Sexual Orientation Not on file documented as of this encounter Miscellaneous Notes * Cerner Conversion Note - Tg Jones MD - 08/12/2021 7:27 PM GASKET SUPERVISOR ED Assessment Entered On: 08/12/2021 21:31 EST Performed On: 08/12/2021 21:29 EST by Chago Fabian RN-PATIENT CARE BEDSIDE NON-EXEMPT ED Quick Look Assessment Level of Consciousness : Alert, Awake Affect/Behavior : Appropriate, Calm, Cooperative Orientation : Oriented x 4 Skin Temperature : Cool Skin Description : Normal for ethnicity Chago Fabian RN-PATIENT CARE BEDSIDE NON-EXEMPT - 08/12/2021 21:29 EST ED General-Functional Assess Information Obtained From : Patient Communication Barrier : None Primary Language : Citizen Of [place] Any Spiritual/Cultural Needs or Requests : No Currently in Unsafe Situation : No Chago Fabian RN-PATIENT CARE BEDSIDE NON-EXEMPT - 08/12/2021 21:29 EST Social Habits Smoking Status : Never (less than 100 in lifetime; none in last 30 days) Smokeless Tobacco Status : Never Desires Tobacco Cessation Calc : 0 Chago Fabian RN-PATIENT CARE BEDSIDE NON-EXEMPT - 08/12/2021 21:29 EST Social History (As Of: 08/12/2021 21:31:29 EST) Tobacco: Smoking Status Never smoker. Second [...] MANNY CHAVEZ, DUNCAN) Employment/School: Retired, Previous employment/school: [employer]. (Last Updated: 06/05/2016 13:55:00 EDT by MANNY CHAVEZ, DUNCAN) Neurologic ASMT, ED Neurologic Assessment WDL : WDL with exceptions (Comment: pt BiB EMS from [place] for SI risk. pt reports not having suicidal intention. pt states I love living too much to want to kill myself . pt reports there being an incident w/ other resident yesterday that made her feel down. pt denies HI risk. [Chago Fabian RN-PATIENT CARE BEDSIDE NON-EXEMPT - 08/12/2021 21:29 EST] ) Chago Fabian RN-PATIENT CARE BEDSIDE NON-EXEMPT - 08/12/2021 21:29 EST Electronically signed by Keven [facility] Conversion Pre Sales Technical Consultant Cerner at 12/15/2022 6:49 PM CDT documented in this encounter Plan of Treatment Not on file documented as of this encounter Visit Diagnoses Not on filedocumented in this encounter
--- OUTSIDE RECORDS SUMMARY | 2025-03-08 13:19 | XMS_ITS | Encounter Summary ---
Author Organization [employer] ([place], [place], [place], [place]) Address [address] [place] [address] Care Team Providers Care Assembly Manager Name Role Phone Unavailable Primary Care Provider Unavailabl e Encounter Details Date Type Department Care Team (Late st Contact Info) Description 06/24/2021 Transcribed Document [facility] [place] Medicine [address] [place] [address] ProviderTg MD [address] [place] [address] Social History Tobacco Use Types Packs/Day Years Used Date Smoking Tobacco: Never Assessed Comments Unknown Sex and Gender Information Value Date Recorded Sex Assigned at Not on file Legal Sex Female 2:39 PM CDT Gender Identity Not on file Sexual Orientation Not on file documented as of this encounter Miscellaneous Notes * Cerner Conversion Note - Tg Jones MD - 06/24/2021 9:23 AM CDT Patient: SUDHA SOLORZANO Age: 75 [...] bedside Vital Signs T: 36.8 ??C TMIN: 36.3 ??C TMAX: 36.8 ??C HR: 105(Monitored) RR: 18 BP: 131/79 SpO2: 90% Oxygen Settings (Last) Oxygen Therapy Mode: Room air (06/24/21 05:48:00) Oxygen Flow Rate: 1 Liter/Min (06/19/21 15:00:00) Intake & Output Totals Last 24 Hours (7a-7a) Input Total: 350 mL Output Total: 0 mL Balance: 350 mL Physical Exam General: confused, lethargic , [...] Intact, No rash. Neurologic: Not alert, Not oriented Medications aspirin, 81 mg= 1 Tab, [...] Test Result Date/Time Sodium Level 136 mmol/L 06/24/2021 04:15 EDT Potassium Level 4.8 mmol/L 06/24/2021 04:15 EDT Chloride Level 105 mmol/L 06/24/2021 04:15 EDT Carbon Dioxide Level 24 mmol/L 06/24/2021 04:15 EDT Anion Gap 12 06/24/2021 04:15 EDT Glucose Level 82 mg/dL 06/24/2021 04:15 EDT Blood Urea Nitrogen 23 mg/dL (High) 06/24/2021 04:15 EDT Creatinine Level 0.80 mg/dL 06/24/2021 04:15 EDT eGFR >60 mL/min/1.73m2 06/24/2021 04:15 EDT eGFR NonAfrican >60 mL/min/1.73m2 06/24/2021 04:15 EDT Bun/Creatinine 28.8 (High) 06/24/2021 04:15 EDT Calcium Level 8.5 mg/dL 06/24/2021 04:15 EDT Magnesium Level 1.9 mg/dL 06/24/2021 04:15 EDT Device Comment 1 Notified Nurse RBV 06/24/2021 06:10 EDT Device Comment 1 Notified Nurse RBV 06/23/2021 23:46 EDT Device Comment 1 Notified MD RBV 06/23/2021 11:25 EDT Glucose POC2 97 mg/dL 06/24/2021 06:10 EDT Glucose POC2 98 mg/dL 06/23/2021 23:46 EDT Glucose POC2 123 mg/dL (High) 06/23/2021 16:05 EDT Glucose POC2 157 mg/dL (High) 06/23/2021 11:25 EDT Lactate Dehydrogenase 389 Units/Liter (High) 06/24/2021 04:45 EDT WBC 10.9 K/uL (High) 06/24/2021 04:15 EDT RBC 2.43 Million/uL (Low) 06/24/2021 04:15 EDT Hgb 7.6 g/dL (Low) 06/24/2021 04:15 EDT Hgb 7.8 g/dL (Low) 06/23/2021 16:47 EDT Hct 23.3 % (Low) 06/24/2021 04:15 EDT MCV 95.9 fL (High) 06/24/2021 04:15 EDT MCH 31.3 pg 06/24/2021 04:15 EDT MCHC 32.6 Gram/dL 06/24/2021 04:15 EDT Platelet Count 142 K/uL (Low) 06/24/2021 04:15 EDT MPV 11.0 fL 06/24/2021 04:15 EDT RDW 24.2 % (High) 06/24/2021 04:15 EDT Neut % 68.9 % 06/24/2021 04:15 EDT Neut # 7.54 K/uL (High) 06/24/2021 04:15 EDT Lymph % 17.1 % (Low) 06/24/2021 04:15 EDT Lymph # 1.87 x10(3)/uL 06/24/2021 04:15 EDT Coffee % 10.2 % (High) 06/24/2021 04:15 EDT Coffee # 1.12 K/uL (High) 06/24/2021 04:15 EDT Eos % 2.2 % 06/24/2021 04:15 EDT Eos # 0.24 x10(3)/uL 06/24/2021 04:15 EDT Baso % 0.3 % 06/24/2021 04:15 EDT Baso # 0.03 x10(3)/uL 06/24/2021 04:15 EDT nRBC 0.680 (High) 06/24/2021 04:15 EDT RBC Morphology Abnormal 06/24/2021 04:15 EDT Anisocytosis 2+ (Abnormal) 06/24/2021 04:15 EDT Poikilocytosis 1+ (Abnormal) 06/24/2021 04:15 EDT Anastacia Cells 1+ (Abnormal) 06/24/2021 04:15 EDT Ovalocytes 1+ (Abnormal) 06/24/2021 04:15 EDT Macrocytosis 1+ (Abnormal) 06/24/2021 04:[address] Estimate Decreased (Abnormal) 06/24/2021 04:15 EDT Slide Review Technologist 06/24/2021 04:15 EDT IG# 0.14 x10(3)/uL (High) 06/24/2021 04:15 EDT IG% 1.30 % (High) 06/24/2021 04:15 EDT RBC Product Ready RBC Ready 06/23/2021 11:19 EDT # of Units: 1 Unit 06/23/2021 11:19 EDT Electronically signed by Keven, [facility] Conversion Oracle Application Architect Cerner at 12/18/2022 9:11 AM CDT documented in this encounter Plan of Treatment Not on file documented as of this encounter Visit Diagnoses Not on filedocumented in this encounter
--- OUTSIDE RECORDS SUMMARY | 2025-03-08 13:19 | XMS_ITS | Encounter Summary ---
Author Organization [employer] ([place], [place], [place], [place]) Address [address] [place] [address] Care Team Providers Care Twist Packer Name Role Phone Unavailable Primary Care Provider Unavailabl e Encounter Details Date Type Department Care Team (Late st Contact Info) Description 06/24/2021 Transcribed Document [facility] [place] [address] [place] [address] ProviderTg MD [address] [place] [address] Social History Tobacco Use Types Packs/Day Years Used Date Smoking Tobacco: Never Assessed Comments Unknown Sex and Gender Information Value Date Recorded Sex Assigned at Not on file Legal Sex Female 2:39 PM CDT Gender Identity Not on file Sexual Orientation Not on file documented as of this encounter Miscellaneous Notes * Cerner Conversion Note - Tg ProviderMD - 06/24/2021 3:00 AM CDT Nutrition Assessment Entered On: 06/24/2021 11:34 EDT Performed On: 06/24/2021 11:34 EDT by Ibis Matt Dietitian Nutrition Assessment Nutrition Assessment Reason : Follow Up Ibis Matt Dietitian - 06/24/2021 11:34 EDT Current Nutrition Regimen Comment : 06/24: High f/u. GROUND SUPPORT EQUIPMENT FITTER cleared pt for a regular diet with thin liquids yesterday. noted that pt's mentation has greatly improved. She has had bleeding at her corpak site and required a blood transfusion yesterday. Discussed pt with nursing. Pt's corpak has been removed and she consumed 17% of meals x 3. 06/20: TF f/u. Pt passed GROUND SUPPORT EQUIPMENT FITTER eval on 06/18, but pt eating poorly. Pt continues on TF. Dx: Sepsis d/t UTI and COVID+ PNA, acute resp failure, transaminitis, hypertensive urgency, A/C metabolic encephalopathy, NSTEMI PMH: Non-hodgkins lymphoma, dementia, HTN, depression, bipolar, osteoarthritis Labs: BUN 23 Meds: Vit B12, docusate, Pepcid, SSI, probiotic, miralax, steroid Skin: excoriation of buttocks, anasarca LBM: + (06/24) Diet: Cardiac + Ensure TID PO Intake: 17% x 3 meals TF: Jevity 1.5 @ 50 ml/hr Ht: 5'2 Admit wt: 250#, no new wt (06/13), 248# (06/17)249# (06/17), 113kg/249# (06/22) IBW: 110#/227% IBW BMI: 45.8 Adj wt: 145#/66 kg Estimated needs: 5918-6415 kcals (MSJX1.2-500) and 73+ grams protein (1.1 grams/kg/adjwt) Ibis Matt Dietitian - 06/24/2021 13:49 EDT Nutrition Diagnoses Oral or Nutrition Support Intake : Inadequate oral intake Oral or Nutr Support Intake Related To : decreased appetite Oral or Nutr Support Intake Evidenced by : consumed 17% of meals x 3 Oral or Nutrition Support Intake Status : Active Ibis Matt Dietitian - 06/24/2021 13:49 EDT Nutrition Interventions Meals and Snacks : Fat-modified diet, Sodium modified diet Nutrition Supplement Therapy : Commercial beverage Ibis Matt Dietitian - 06/24/2021 13:49 EDT Monitoring/Evaluation Food Intake : Amount of food Weight Status : Weight Maintanence Gastrointestinal Function : Bowel Function Ibis Matt Dietitian - 06/24/2021 13:49 EDT Nutrition Recommendations Dietitian Recommendations : 1. Will liberalize cardiac restriction to promote increased PO intakes. Continue Ensure shakes TID. Goal: >50 % meals/ONS 2. Monitor elytes and replace prn Goal: wnls 3. Monitor wt 1-2x weekly Goal: avoid significant unintended wt loss Nutrition risk: high Ibis Matt Dietitian - 06/24/2021 13:49 EDT documented in this encounter Plan of Treatment Not on file documented as of this encounter Visit Diagnoses Not on filedocumented in this encounter
--- OUTSIDE RECORDS SUMMARY | 2025-03-08 13:19 | XMS_ITS | Encounter Summary ---
Author Organization [employer] ([place], [place], [place], [place]) Address [address] [place] [address] Care Team Providers Care Speech And Language Specialist Name Role Phone Unavailable Primary Care Provider Unavailabl e Encounter Details Date Type Department Care Team (Late st Contact Info) Description 06/26/2021 Transcribed Document [facility] [place] [address] [place] [address] ProviderTg MD [address] [place] [address] Social History Tobacco Use Types Packs/Day Years Used Date Smoking Tobacco: Never Assessed Comments Unknown Sex and Gender Information Value Date Recorded Sex Assigned at Not on file Legal Sex Female 2:39 PM CDT Gender Identity Not on file Sexual Orientation Not on file documented as of this encounter Miscellaneous Notes * Cerner Conversion Note - Historical ProviderMD - 06/26/2021 5:00 AM CDT Chart Check - Review Order Profile Entered On: 06/26/2021 4:12 EDT Performed On: 06/26/2021 5:00 EDT by Magda Dawson Rn Chart Check Powerplans Initiated/Discontinued as Appropriate : Yes All Active Orders Reviewed : Yes Magda Dawson Rn - 06/26/2021 4:12 EDT documented in this encounter Plan of Treatment Not on file documented as of this encounter Visit Diagnoses Not on filedocumented in this encounter
--- OUTSIDE RECORDS SUMMARY | 2025-03-08 13:19 | XMS_ITS | Encounter Summary ---
Author Organization [employer] ([place], [place], [place], [place]) Address [address] [place] [address] Care Team Providers Care Car Examiner Name Role Phone Unavailable Primary Care Provider Unavailabl e Encounter Details Date Type Department Care Team (Late st Contact Info) Description 06/19/2021 Transcribed Document [facility] [place] [address] [place] [address] ProviderTg MD [address] [place] [address] Social History Tobacco Use Types Packs/Day Years Used Date Smoking Tobacco: Never Assessed Comments Unknown Sex and Gender Information Value Date Recorded Sex Assigned at Not on file Legal Sex Female 2:39 PM CDT Gender Identity Not on file Sexual Orientation Not on file documented as of this encounter Miscellaneous Notes * Cerner Conversion Note - Tg ProviderMD - 06/19/2021 8:[address] [facility] PATIENT ACCESS ASSOCIATE Charges Entered On: 06/19/2021 8:42 EDT Performed On: 06/19/2021 8:42 EDT by YELENA CHARLES SLP [facility] PATIENT ACCESS ASSOCIATE Charges Screen For Speech Therapy : 1 YELENA CHARLES SLP - 06/19/2021 8:42 EDT documented in this encounter Plan of Treatment Not on file documented as of this encounter Visit Diagnoses Not on filedocumented in this encounter
--- OUTSIDE RECORDS SUMMARY | 2025-03-08 13:19 | XMS_ITS | Encounter Summary ---
Author Organization [employer] ([place], [place], [place], [place]) Address [address] [place] [address] Care Team Providers Care Senior Hardware Design Engineer Name Role Phone Unavailable Primary Care Provider Unavailabl e Encounter Details Date Type Department Care Team (Late st Contact Info) Description 07/23/2021 Transcribed Document [facility] [place] [address] [place] [address] ProviderTg MD [address] [place] [address] Social History Tobacco Use Types Packs/Day Years Used Date Smoking Tobacco: Never Assessed Comments Unknown Sex and Gender Information Value Date Recorded Sex Assigned at Not on file Legal Sex Female 2:39 PM CDT Gender Identity Not on file Sexual Orientation Not on file documented as of this encounter Miscellaneous Notes * Cerner Conversion Note - Historical ProviderMD - 07/23/2021 2:58 PM PRODUCT MANAGENT INTERN Attempt to Treat, OT Entered On: 07/23/2021 14:58 EST Performed On: 07/23/2021 14:58 EST by SHAWNA PARMAR OTR/Lachelle Attempt to Treat Inability to Treat Comment : Pt in dialysis and is not medically appropriate for OT at this time. Will follow up as schedule allows. SHAWNA PARMAR OTR/Lachelle - 07/23/2021 14:58 EST documented in this encounter Plan of Treatment Not on file documented as of this encounter Visit Diagnoses Not on filedocumented in this encounter
--- OUTSIDE RECORDS SUMMARY | 2025-03-08 13:19 | XMS_ITS | Encounter Summary ---
Author Organization [employer] ([place], [place], [place], [place]) Address [address] [place] [address] Care Team Providers Care Cable Tester Name Role Phone Unavailable Primary Care Provider Unavailabl e Encounter Details Date Type Department Care Team (Late st Contact Info) Description 07/24/2021 Transcribed Document [facility] [place] [address] [place] [address] ProviderTg MD [address] [place] [address] Social History Tobacco Use Types Packs/Day Years Used Date Smoking Tobacco: Never Assessed Comments Unknown Sex and Gender Information Value Date Recorded Sex Assigned at Not on file Legal Sex Female 2:39 PM CDT Gender Identity Not on file Sexual Orientation Not on file documented as of this encounter Miscellaneous Notes * Cerner Conversion Note - Tg Jones MD - 07/24/2021 11:29 AM CALL CENTER SUPPORT CONSULTANT DATE OF CONSULTATION: 07/24/2021 REASON FOR CONSULT: Altered mental status. HISTORY OF PRESENT ILLNESS: This is a 75-year-old female with a reported history of baseline dementia, bipolar disorder, non-Hodgkin lymphoma, admitted on July 21 with lithium toxicity. This was from her custodial where I believe she has been since at least May when she was hospitalized here for COVID. It should be noted that the neurologist, Dr. Ochoa saw this patient in May for delirium and encephalopathy as well. She had a fairly extensive neurologic workup at that time including continuous EEG monitoring, and an MRI of the brain, which did not show any significant abnormalities. There were some abnormalities on the EEG, which suggested a possibility of seizure disorder and therefore Dr. Ochoa had started her on Depakote, and I believe she had also recently been started on Seroquel at that time as well. She has been admitted here for the last several days with ongoing confusion in the setting of urinary tract infection and lithium toxicity. Neurology was asked to evaluate her mental status. PAST MEDICAL HISTORY: Bipolar disorder, non-Hodgkin lymphoma, reported dementia per past neurology notes, hypertension, recent COVID infection. HOME MEDICATIONS: 1. Cyanocobalamin. 2. Multivitamin. 3. Howard. 4. Carvedilol. 5. Seroquel. 6. Furosemide. 7. Protonix. 8. Depakote. 9. Aspirin. 10. Lisinopril. 11. Atorvastatin. 12. Bisacodyl. 13. Trion. 14. Colace. 15. Potassium chloride. 16. Ergocalciferol. SOCIAL HISTORY: The patient has recently been residing in a custodial. I am not aware of any use of alcohol, tobacco, or illicit drugs. FAMILY HISTORY: Not obtainable. REVIEW OF SYSTEMS: As per HPI, otherwise, not obtainable from the patient. PHYSICAL EXAMINATION: GENERAL: The patient is awake. She is very emotionally labile and tearful, not able to participate much in exam due to this. She could tell me her name and would follow some simple commands. She is diffusely tremulous. VITAL SIGNS: Blood pressure 147/90, heart rate 112, temperature 99.7. CARDIAC: Showing sinus tachycardia. RESPIRATIONS: Unlabored. EXTREMITIES: Without clubbing, cyanosis, or edema. NEUROLOGIC: Again, she would say her name, but was otherwise very labile and tearful, and speech was poorly evaluated. Cranial nerves that I could assess were intact. She resisted eye opening and pupils are not well evaluated. She is noted to move all extremities equally with no obvious focal deficits. Again, she is diffusely tremulous. She could not participate for detailed strength, sensation, or coordination testing. DIAGNOSTIC STUDIES: IMAGING STUDIES: A head CT without contrast this admission did not show any acute abnormality. She had MRI of her brain on June 18, which did not show any significant abnormalities. She had continuous EEG monitoring over several days in May, which did show bifrontal slowing as well as rare sharply contoured waves in the left frontal region. Blood work has been reviewed. Her initial lithium level was 2.7, and has now come down to a normal range. Other blood work is notable for hemoglobin 8.7. She did have enterococcus species growing from urine. ASSESSMENT AND PLAN: This is a 75-year-old female with reported history of bipolar disorder, dementia, likely poor baseline cognitive status per prior Neurology notes, currently admitted with altered mentation in the setting of lithium toxicity and urinary tract infection. This is most likely a combination of toxic and metabolic encephalopathy with worsening of her underlying dementia and psychiatric disorders. She had a fairly extensive neurologic workup for similar type presentation in May, which was fairly unremarkable, and I will not repeat that. I would recommend not restarting her lithium unless in consultation with a psychiatrist, but she can continue her Seroquel and Depakote. Otherwise, there is no need for further neurologic workup at this time and I will follow as needed. Please call with any questions. /[id number] MD ALAN Campa/ROSA / ALAN / ASHVINL /[id number] Electronically signed by Julian Baca Conversion Assistant Store Manager Sales Arlenener at 12/18/2022 9:12 AM CDT documented in this encounter Plan of Treatment Not on file documented as of this encounter Visit Diagnoses Not on filedocumented in this encounter
--- OUTSIDE RECORDS SUMMARY | 2025-03-08 13:19 | XMS_ITS | Encounter Summary ---
Author Organization [employer] ([place], [place], [place], [place]) Address [address] [place] [address] Care Team Providers Care Investment Advisor Name Role Phone Unavailable Primary Care Provider Unavailabl e Encounter Details Date Type Department Care Team (Late st Contact Info) Description 07/24/2021 Transcribed Document [facility] [place] [address] [place] [address] ProviderTg MD [address] [place] [address] Social History Tobacco Use Types Packs/Day Years Used Date Smoking Tobacco: Never Assessed Comments Unknown Sex and Gender Information Value Date Recorded Sex Assigned at Not on file Legal Sex Female 2:39 PM CDT Gender Identity Not on file Sexual Orientation Not on file documented as of this encounter Miscellaneous Notes * Cerner Conversion Note - Historical ProviderMD - 07/24/2021 2:00 AM WEB SOLUTIONS ARCHITECT Pizza Baker Details Entered On: 07/24/2021 4:35 EST Performed On: 07/24/2021 2:00 EST by Clarisa Howard RN Order Details Transport Mode Order Detail : Bed (including specialty) Order Detail : N/A IV Order Detail : 1 Oxygen Order Detail : 1 Nurse Collect Order Detail : 1 Lift/Transfer : Maximal assist Central Line Order Detail : Yes Room Service : Not Appropriate Arterial Line : No Patient Needs Meds Crushed/Liquid : Yes Meds Administered Via Tube : No Clarisa Howard RN - 07/24/2021 4:34 EST Electronically signed by Julian [employer]caa Conversion Director Of Sustainability Programs Cerner at 12/18/2022 9:09 AM CDT documented in this encounter Plan of Treatment Not on file documented as of this encounter Visit Diagnoses Not on filedocumented in this encounter
--- OUTSIDE RECORDS SUMMARY | 2025-03-08 13:19 | XMS_ITS | Encounter Summary ---
Author Organization [employer] ([place], [place], [place], [place]) Address [address] [place] [address] Care Team Providers Care Clip Loading Machine Feeder Name Role Phone Unavailable Primary Care Provider Unavailabl e Encounter Details Date Type Department Care Team (Late st Contact Info) Description 06/26/2021 Transcribed Document [facility] [place] [address] [place] [address] ProviderTg MD [address] [place] [address] Social History Tobacco Use Types Packs/Day Years Used Date Smoking Tobacco: Never Assessed Comments Unknown Sex and Gender Information Value Date Recorded Sex Assigned at Not on file Legal Sex Female 2:39 PM CDT Gender Identity Not on file Sexual Orientation Not on file documented as of this encounter Miscellaneous Notes * Cerner Conversion Note - Tg ProviderMD - 06/26/2021 2:18 PM CDT On Going Discharge Planning Entered On: 06/26/2021 14:22 EDT Performed On: 06/26/2021 14:18 EDT by Patsy Koehler V, Loading Checker Peoplesoft Crm Developer Care Management Progress Note Discharge Arrangements : [...] Condition of Patient Patient Discharge Goal : snf facility List/Info Provided Pt/Fam/Support Person : Inpatient rehabilitation facility, snf facilities Is the Patient Meeting Medical Necessity : Yes Physician Agreeable to Move Forward with D/C Plan? : Yes Did you Attend Multidisciplinary Rounds? : Yes Patsy Koehler V Loading Checker Peoplesoft Crm Developer - 06/26/2021 14:18 EDT Narrative Progress Note Narrative Progress Note : LOS 18, ELOS-5 RSR-moderate Per MD, patient is ready for rehab placement. CM has sent out updates for SNF placement. CM spoke to Diana with the [facility] facilities as well as Perri with [facility] to see if any of their facilities can accept patient. CM called pt's son, Shawn [phone] and dtr, Harley [phone] but noone answered to discuss pt's dc plan. DCP-transfer to SNF pending bed offer Historical Progress Note : LOS 17, ELOS-5 RSR-moderate Per MD, patient is eating well after CorPak removal few days ago. Hemoglobin is remained stable after stopping therapeutic Lovenox. She is medically stable for discharge to rehab. CM sent updated clinical and therapy notes to [facility] and SNF. Out of COVID isolation. DCP-Transfer to rehab/SNF pending bed offer. Patsy Koehler V Loading Checker Peoplesoft Crm Developer - 06/25/21 16:53:06 LOS 17, ELOS-5 RSR-moderate Covid + Remains on isolation. [facility] has declined. [facility] is following but no bed offer. [facility] following, currently not treating. Per attending, corpak was dc'd and mentation has improved and off restraints. DCP: no current bed offers from referrals. [facility] was contacted via [facility] to request bed. DANIELLE PHIPPS, RN-Elevator Constructor Hydraulic - 06/24/21 15:53:37 HD#15, ELOS-5 RSR-moderate, Boost-5 [...] now. CM to follow Patsy Koehler V Loading Checker Peoples[employer] Crm Developer - 06/23/21 12:29:00 HD#12, ELOS-5 RSR-moderate, Boost-5 COVID+. On room air per RN. 2L. Patient Still has mittens. Corpak for TF. ST evaluated and recommended pureed diet and TF. On IV zosyn. HGB at 8.9. Barriers to rehab placement: mittens and corpak and no PT/OT evaluations. CM has sent rehab referrals via [facility]. CM to follow. oes not speak or follow any other commands. Current on EEG monitor. She has been hemodynamically stable with Tmax 99.8. Currently tolerating TF via corpak. No output documented for patient. Patsy Koehler V Loading Checker [facility] [place] - 06/20/21 11:50:46 HD#12, ELOS-5 RSR-moderate, Boost-5 [...] medically ready for dc. Patsy Koehler V, Loading Checker [facility] [place] - 06/20/21 11:57:36 HD#12, ELOS-5 RSR-moderate, Boost-5 [...] [facility]. CM to follow. Patsy Koehler V Loading Checker [facility] [place] - 06/20/21 11:54:35 HD#11, ELOS-5 RSR-moderate, Boost-5 COVID+. On 2L NC. Still has mittens. Corpak for TF. ST evaluated and recommended pureed diet and TF. On IV zosyn. HGB at 8.9. Barriers to rehab placement: mittens and corpak and no PT/OT evaluations. CM has sent rehab referrals via [facility]. CM to follow. KoehlerPatsy dempsey V Loading Checker [facility] [place] - 06/19/21 15:03:50 HD#10, ELOS-5 RSR-moderate, Boost-5 COVID+.Now on 4L NC. Patient awake, but remains confused and unable to converse appropriately per MD. Still in restraints. Patient passed her FEES. Diet advance to puree. Hopefully, her corpak will be discontinued soon. Brain MRI today. Still on IV abx. WBC and LDH trending down. CM sent updated clinical/therapy notes to [facility] and [facility] for possible rehab placement. CM to follow. Patsy Koehler V Loading Checker [facility] [place] - 06/18/21 15:20:04 HD#9, ELOS-5 RSR-moderate, Boost-5 COVID+. On 6L HFNC. Ongoing confusion. Restraints continued. On IV rocephin, micafuntgin and dexamethazone. Tolerating TF via corpak. DCP-SNF/[facility] for rehab pending medical progress. Patsy Koehler V Loading Checker [facility] [place] - 06/17/21 12:01:09 HD#8, ELOS-5 RSR-moderate, Boost-5 COVID+. On 5L HFNC. Ongoing confusion and attempting to pull at lines. In restraints. Leukocytosis worsening, LDH and d-dimer trending up, ferritin trending down. Tolerating TF via corpak. MD plans to get a neurology consult due to pt's confusion. CM to follow DCP-SNF for rehab pending medical progress. Patsy Koehler V Loading Checker [facility] [place] - 06/16/21 13:18:40 HD#5, ELOS-5 RSR-moderate, Boost-[address] Narda Sommer, patient with further worsening of respiratory failure. Tachycardia. Patient is criticcally ill and may need intubation. CR chest today. Patsy Koehler V Loading Checker [facility] [place] - 06/13/21 09:26:38 HD#5, ELOS-5 RSR-moderate, Boost-[address] Narda Sommer, patient with further worsening of respiratory failure. Tachycardia. Patient is critically ill and may need intubation. CR chest today showed Slightly worsening bilateral opacities. Pulmonary edema is not excluded. Corpak placed. CM to follow. DCP-pending on patient's medical progress. Patsy Koehler V Loading Checker [employer] Crm Developer - 06/13/21 09:29:02 HD#4, ELOS-5 RSR-moderate, Boost-5 [...] transfer to the ICU. CM to follow. DCP-[facility] vs SNF when medically ready. Patsy Koehler V Loading Checker [employer] Crm Developer - 06/12/21 12:12:00 HD#4, ELOS-5 RSR-moderate, Boost-5 COVID+. Patient currently on optiflow FiO2 60%, with continued increased confusion and fidgeting in the bed. ID and Pulm consulted and are making med adjustments. Right small PE. On IV abx. Per RN, patient with tachycardia the other night. Now has mittens. Not eating or drinking per RN. DCP-[facility]/SNF pending medical progress. Patient lives with her 98 yo father and adult son. Patsy Koehler V Loading Checker [employer] Crm Developer - 06/11/21 12:10:01 HD#4, ELOS-5 RSR-moderate, Boost-5 Patient currently on optiflow FiO2 70%, with continued increased confusion and fidgeting in the bed. ID and Pulm consulted and are making med adjustments. Per RN, patient with tachycardia the other night. DCP-[facility]/SNF pending medical progress. Patient lives with her 98 yo father and adult son. Patsy Koehler V Loading Checker [employer] Crm Developer - 06/11/21 10:00:55 HD#3, ELOS-not recorded, RSR-moderate, Boost-4 Per MD, patient is clinical deconditioning from NC to optiflow at 60% Fi02 with increased confusion. ID, Cardiology and Pulm consulted. HIGH RISK FOR INTUBATION. Patient had a abnormal ECHO with PE. On IV cefazolin and IV steroids. CM sent referrals to [facility] and [facility] due to being COVID+ for rehab. CM to follow. Patsy Koehler V Loading Checker Peoples[employer] Crm Developer - 06/10/21 10:25:43 HD#2, ELOS-not recorded, RSR-moderate, Boost-4 CM sent rehab referrals to [facility] and [facility] since they accept COVID+ patients. Currently patient is on 60% Fi02. PEr MD, patient's respiratory status is worsening. CM to follow pt's progress for dc planning. Patsy Koehler V Loading Checker [employer]oples[employer] Crm Developer - 06/09/21 16:10:00 Patsy Koehler V, Loading Checker Peoplesoft Crm Developer - 06/26/2021 14:18 EDT documented in this encounter Plan of Treatment Not on file documented as of this encounter Visit Diagnoses Not on filedocumented in this encounter
--- OUTSIDE RECORDS SUMMARY | 2025-03-08 13:19 | XMS_ITS | Encounter Summary ---
Author Organization [employer] ([place], [place], [place], [place]) Address [address] [place] [address] Care Team Providers Care Delivery Helper Name Role Phone Unavailable Primary Care Provider Unavailabl e Encounter Details Date Type Department Care Team (Late st Contact Info) Description 06/26/2021 Transcribed Document [facility] [place] Family Medicine [address] [place] [address] ProviderTg MD [address] [place] [address] Social History Tobacco Use Types Packs/Day Years Used Date Smoking Tobacco: Never Assessed Comments Unknown Sex and Gender Information Value Date Recorded Sex Assigned at Not on file Legal Sex Female 2:39 PM CDT Gender Identity Not on file Sexual Orientation Not on file documented as of this encounter Miscellaneous Notes * Cerner Conversion Note - Historical ProviderMD - 06/26/2021 2:00 AM CDT Bulk Sausage Casing Tier Off Details Entered On: 06/26/2021 4:12 EDT Performed On: 06/26/2021 2:00 EDT by Magda Dawson Rn Order [...] Yes Patient Needs Meds Crushed/Liquid : No Magda Dawson Rn - 06/26/2021 4:12 EDT documented in this encounter Plan of Treatment Not on file documented as of this encounter Visit Diagnoses Not on filedocumented in this encounter
--- OUTSIDE RECORDS SUMMARY | 2025-03-08 13:19 | XMS_ITS | Encounter Summary ---
Author Organization [employer] ([place], [place], [place], [place]) Address [address] [place] [address] Care Team Providers Care Quarry Supervisor Dimension Stone Name Role Phone Unavailable Primary Care Provider Unavailabl e Encounter Details Date Type Department Care Team (Late st Contact Info) Description 06/24/2021 Transcribed Document [facility] [place] Family Medicine [address] [place] [address] ProviderTg MD [address] [place] [address] Social History Tobacco Use Types Packs/Day Years Used Date Smoking Tobacco: Never Assessed Comments Unknown Sex and Gender Information Value Date Recorded Sex Assigned at Not on file Legal Sex Female 2:39 PM CDT Gender Identity Not on file Sexual Orientation Not on file documented as of this encounter Miscellaneous Notes * Cerner Conversion Note - Tg Jones MD - 06/24/2021 3:53 PM CDT On Going Discharge Planning Entered On: 06/24/2021 15:53 EDT Performed On: 06/24/2021 15:53 EDT by DANIELLE PHIPPS RN-Surgical Clinical ReviewerDrum Sander Progress Note Discharge Arrangements : Patient Post-Acute [...] Condition of Patient Patient Discharge Goal : [facility] facility List/Info Provided Pt/Fam/Support Person : Inpatient rehabilitation facility, [facility] facilities Is the Patient Meeting Medical Necessity : Yes Did you Attend Multidisciplinary Rounds? : Yes DANIELLE PHIPPS, RN-Surgical Clinical Reviewer - 06/24/2021 15:53 EDT Narrative Progress Note Narrative Progress Note : LOS 17, ELOS-5 RSR-moderate Covid + Remains on isolation. [facility] has declined. [facility] is following but no bed offer. ID following, currently not treating. Per attending, corpak was dc'd and mentation has improved and off restraints. DCP: no current bed offers from referrals. [facility] was contacted via [employer] to request bed. Historical Progress Note : HD#15, ELOS-5 RSR-moderate, Boost-5 [...] now. CM to follow Patsy Koehler V Staffing Associate Bindery Cutter Operator - 06/23/21 12:29:00 HD#12, ELOS-5 RSR-moderate, Boost-5 COVID+. On room air per RN. 2L. Patient Still has mittens. Corpak for TF. ST evaluated and recommended pureed diet and TF. On IV zosyn. HGB at 8.9. Barriers to rehab placement: mittens and corpak and no PT/OT evaluations. CM has sent rehab referrals via [facility]. CM to follow. oes not speak or follow any other commands. Current on EEG monitor. She has been hemodynamically stable with Tmax 99.8. Currently tolerating TF via corpak. No output documented for patient. Patsy Koehler V Staffing Associate Bindery Cutter Operator - 06/20/21 11:50:46 HD#12, ELOS-5 RSR-moderate, Boost-5 [...] medically ready for dc. Patsy Koehler V, Staffing Associate [facility] - 06/20/21 11:57:36 HD#12, ELOS-5 RSR-moderate, Boost-5 [...] [facility]. CM to follow. Patsy Koehler V, Staffing Associate [facility] - 06/20/21 11:54:35 HD#11, ELOS-5 RSR-moderate, Boost-5 COVID+. On 2L NC. Still has mittens. Corpak for TF. ST evaluated and recommended pureed diet and TF. On IV zosyn. HGB at 8.9. Barriers to rehab placement: mittens and corpak and no PT/OT evaluations. CM has sent rehab referrals via [facility]. CM to follow. Patsy Koehler V Staffing Associate [facility] - 06/19/21 15:03:50 HD#10, ELOS-5 RSR-moderate, Boost-5 [...] placement. CM to follow. Patsy Koehler V, Staffing Associate [facility] - 06/18/21 15:20:04 HD#9, ELOS-5 RSR-moderate, Boost-5 COVID+. On 6L HFNC. Ongoing confusion. Restraints continued. On IV rocephin, micafuntgin and dexamethazone. Tolerating TF via corpak. DCP-SNF/ [facility] for rehab pending medical progress. Patsy Koehler V Staffing Associate Bindery Cutter Operator - 06/17/21 12:01:09 HD#8, ELOS-5 RSR-moderate, Boost-5 COVID+. On 5L HFNC. Ongoing confusion and attempting to pull at lines. In restraints. Leukocytosis worsening, LDH and d-dimer trending up, ferritin trending down. Tolerating TF via corpak. MD plans to get a neurology consult due to pt's confusion. CM to follow DCP-SNF for rehab pending medical progress. Patsy Koehler V, Staffing Associate Bindery Cutter Operator - 06/16/21 13:18:40 HD#5, ELOS-5 RSR-moderate, Boost-[address] Narda Sommer, patient with further worsening of respiratory failure. Tachycardia. Patient is criticcally ill and may need intubation. CR chest today. Patsy Koehler V Staffing Associate [facility] - 06/13/21 09:26:38 HD#5, ELOS-5 RSR-moderate, Boost-[address] Narda Sommer, patient with further worsening of respiratory failure. Tachycardia. Patient is critically ill and may need intubation. CR chest today showed Slightly worsening bilateral opacities. Pulmonary edema is not excluded. Corpak placed. CM to follow. DCP-pending on patient's medical progress. Patsy Koehler V Staffing Associate [facility] - 06/13/21 09:29:02 HD#4, ELOS-5 RSR-moderate, Boost-5 [...] transfer to the ICU. CM to follow. DCP-[facility] vs SNF when medically ready. Patsy Koehler V Staffing Associate [facility] - 06/12/21 12:12:00 HD#4, ELOS-5 RSR-moderate, Boost-5 Patient currently on optiflow FiO2 70%, with continued increased confusion and fidgeting in the bed. ID and Pulm consulted and are making med adjustments. Per RN, patient with tachycardia the other night. DCP-[facility] pending medical progress. Patient lives with her 98 yo father and adult son. Patsy Koehler V Staffing Associate Bindery Cutter Operator - 06/11/21 10:00:55 HD#4, ELOS-5 RSR-moderate, Boost-5 COVID+. Patient currently on optiflow FiO2 60%, with continued increased confusion and fidgeting in the bed. ID and Pulm consulted and are making med adjustments. Right small PE. On IV abx. Per RN, patient with tachycardia the other night. Now has mittens. Not eating or drinking per RN. DCP-[facility] pending medical progress. Patient lives with her 98 yo father and adult son. Patsy Koehler V Staffing Associate Bindery Cutter Operator - 06/11/21 12:10:01 HD#3, ELOS-not recorded, RSR-moderate, Boost-4 Per MD, patient is clinical deconditioning from NC to optiflow at 60% Fi02 with increased confusion. ID, Cardiology and Pulm consulted. HIGH RISK FOR INTUBATION. Patient had a abnormal ECHO with PE. On IV cefazolin and IV steroids. CM sent referrals to [facility] and [facility] due to being COVID+ for rehab. CM to follow. Patsy Koehler Social Worker Bindery Cutter Operator - 06/10/21 10:25:43 HD#2, ELOS-not recorded, RSR-moderate, Boost-4 CM sent rehab referrals to [facility] and [facility] since they accept COVID+ patients. Currently patient is on 60% Fi02. PEr MD, patient's respiratory status is worsening. CM to follow pt's progress for dc planning. Patsy Koehler V Staffing Associate Bindery Cutter Operator - 06/09/21 16:10:00 DANIELLE PHIPPS, RN-Surgical Clinical Reviewer - 06/24/2021 15:53 EDT documented in this encounter Plan of Treatment Not on file documented as of this encounter Visit Diagnoses Not on filedocumented in this encounter
--- OUTSIDE RECORDS SUMMARY | 2025-03-08 13:19 | XMS_ITS | Encounter Summary ---
Author Organization [employer] ([place], [place], [place], [place]) Address [address] [place] [address] Care Team Providers Care Field Technician Name Role Phone Unavailable Primary Care Provider Unavailabl e Encounter Details Date Type Department Care Team (Late st Contact Info) Description 07/24/2021 Transcribed Document [facility] [place] [address] [place] [address] ProviderTg MD [address] [place] [address] Social History Tobacco Use Types Packs/Day Years Used Date Smoking Tobacco: Never Assessed Comments Unknown Sex and Gender Information Value Date Recorded Sex Assigned at Not on file Legal Sex Female 2:39 PM CDT Gender Identity Not on file Sexual Orientation Not on file documented as of this encounter Miscellaneous Notes * Cerner Conversion Note - Historical ProviderMD - 07/24/2021 3:50 PM PIG MACHINE SUPERVISOR Treatment Intervention, PT Entered On: 07/27/2021 15:11 EST Performed On: 07/27/2021 15:07 EST by JAS LUQUE PTA General Information, PT Visit Type, PT : Treatment Note Patient Orders : Order Date Order Ordering 07/21/2021 21:11 PT Evaluation and Treatment Ordered By: LAURE COVINGTON DO-INT 07/24/2021 15:50 Physical Therapy Additional Tx Ordered By: YULIYA BALTAZAR PT Active Diagnoses : 07/21/2021 12:00 Altered mental status 07/21/2021 12:00 [place] ingestion 07/21/2021 12:00 Toxic effect of other metals, accidental (unintentional), initial encounter Therapy Diagnosis, PT : decreased functional mobility and activity tolerance Admission Date : 07/21/2021 20:00 Personal Devices : Personal Devices No Devices Recorded Assistive Devices : Assistive Devices No Devices Recorded JAS LUQUE PTA - 07/27/2021 15:07 EST General Status Patient Received Status : Supine in bed Treatment Start Time : 07/27/2021 14:00 EST Patient Left Status : Supine in bed RN/PCT Informed Comment : RN ok'd session Treatment End Time : 07/27/2021 14:10 EST Treatment Time : 10 Minute(s) JAS LUQUE ROLL UP OPERATOR - 07/27/2021 15:07 EST Therapeutic Exercises PT Therapeutic Exercise Grid Exercise #1 Exercises : Other: BLE ther ex arom and some aarom x 15 reps ankle pumps/heel cord stretches, heel slides, slr's, hip abd. JAS LUQUE, ROLL UP OPERATOR - 07/27/2021 15:07 EST Edu Topics Physical Therapy Education Grid Safety : Needs further teaching JAS LUQUE, ROLL UP OPERATOR - 07/27/2021 15:07 EST Plan of Care, PT PT Tx Plan/Goals Established w Patient : Yes JAS LUQUE, ROLL UP OPERATOR - 07/27/2021 15:07 EST Nursing Home Goals Mobility/Bed Mobility LTG PT Grid Goal #1 Activity : Supine to sit Assist : Assist, moderate Date to Meet : 08/07/2021 EST Goal Status : Intial Goal JAS LUQUE ROLL UP OPERATOR - 07/27/2021 15:07 EST Treatment Note Subjective Comment : Agreeable to ther ex in bed. No pain reported. Patient's Response to Treatment : Some fatigue. Additional Objective Information : AROM x 15 reps, ankle pumps/heel cord stretches, heel slides, slr's, hip abd. Assessment : Patient seems to be slightly more alert than yesterday. But still needing cues to stay on task with ther ex and cues to perform ther ex. Plan for Treatment : Cont. PT JAS LUQUE, ROLL UP OPERATOR - 07/27/2021 15:07 EST [place] PT Charges ROLL UP OPERATOR PT Therap. Exercise 15 min-ROLL UP OPERATOR : 1 JAS LUQUE ROLL UP OPERATOR - 07/27/2021 15:07 EST documented in this encounter Plan of Treatment Not on file documented as of this encounter Visit Diagnoses Not on filedocumented in this encounter
--- OUTSIDE RECORDS SUMMARY | 2025-03-08 13:19 | XMS_ITS | Encounter Summary ---
Author Organization [employer] ([place], [place], [place], [place]) Address [address] [place] [address] Care Team Providers Care Photography Teacher Name Role Phone Unavailable Primary Care Provider Unavailabl e Encounter Details Date Type Department Care Team (Late st Contact Info) Description 06/26/2021 Transcribed Document [facility] [place] Family Medicine [address] [place] [address] ProviderTg MD [address] [place] [address] Social History Tobacco Use Types Packs/Day Years Used Date Smoking Tobacco: Never Assessed Comments Unknown Sex and Gender Information Value Date Recorded Sex Assigned at Not on file Legal Sex Female 2:39 PM CDT Gender Identity Not on file Sexual Orientation Not on file documented as of this encounter Miscellaneous Notes * Cerner Conversion Note - Tg ProviderMD - 06/26/2021 4:41 PM CDT Patient: SUDHA SOLORZANO Age: 75 Years Sex: Female : 1945 Subjective Patient continued to do well this morning, still very debilitated. No more signs of bleeding. Patient tolerating oral diet well and having bowel movements. No other acute events overnight. Vital Signs T: 36.5 ??C TMIN: 36.4 ??C TMAX: 36.9 ??C HR: 94(Monitored) RR: 16 BP: 105/72 SpO2: 100% Oxygen Settings (Last) Oxygen Therapy Mode: Room air (06/26/21 05:37:00) Oxygen Flow Rate: 1.5 Liter/Min (06/26/21 08:00:00) Intake & Output Totals Last 24 Hours (7a-7a) Input Total: 220 mL Output Total: 0 mL Balance: 220 mL Physical Exam General: Chronically ill appearing [...] component 18. Hx of non-Hodgkin's lymphoma Disposition: No change in status today.Patient eating well on her own and continue to work with physical therapy. Hemoglobin stable with no more signs of bleeding of anticoagulation. Patient continues to be medically stable for discharge once SNF facility found. VTE Prophylaxis - Medical Sequential Compression Device [...]
--- OUTSIDE RECORDS SUMMARY | 2025-03-08 13:19 | XMS_ITS | Encounter Summary ---
Author Organization [employer] ([place], [place], [place], [place]) Address [address] [place] [address] Care Team Providers Care Technician Automated Equipment Name Role Phone Unavailable Primary Care Provider Unavailabl e Encounter Details Date Type Department Care Team (Late st Contact Info) Description 08/12/2021 Transcribed Document [facility] [place] Family Medicine [address] [place] [address] ProviderTg MD [address] [place], [place] [id number] Social History Tobacco Use Types Packs/Day Years Used Date Smoking Tobacco: Never Assessed Comments Unknown Sex and Gender Information Value Date Recorded Sex Assigned at Not on file Legal Sex Female 2:39 PM CDT Gender Identity Not on file Sexual Orientation Not on file documented as of this encounter Miscellaneous Notes * Cerner Conversion Note - Historical ProviderMD - 08/12/2021 7:27 PM ENTRY LEVEL LAB TECHNICIAN [place] Violence Assessment Entered On: 08/12/2021 21:31 EST Performed On: 08/12/2021 21:29 EST by Chago Fabian RN-PATIENT CARE BEDSIDE NON-EXEMPT Broset Violence Assessment Broset Violence Checklist of Symptoms : None Broset Violence Symptoms Subtotal : 0 Broset Violence Symptoms Indicator : Low risk (0) Broset Interventions : [place] precautions for safety used Chago Fabian RN-PATIENT CARE BEDSIDE NON-EXEMPT - 08/12/2021 21:29 EST documented in this encounter Plan of Treatment Not on file documented as of this encounter Visit Diagnoses Not on filedocumented in this encounter
--- OUTSIDE RECORDS SUMMARY | 2025-03-08 13:20 | XMS_ITS | Encounter Summary ---
Author Organization [employer] ([place], [place], [place], [place]) Address [address] [place] [address] Care Team Providers Care Extruder Operator Horizontal Name Role Phone Unavailable Primary Care Provider Unavailabl e Encounter Details Date Type Department Care Team (Late st Contact Info) Description 07/22/2021 Transcribed Document [facility] [place] [address] [place] [address] ProviderTg MD [address] [place] [address] Social History Tobacco Use Types Packs/Day Years Used Date Smoking Tobacco: Never Assessed Comments Unknown Sex and Gender Information Value Date Recorded Sex Assigned at Not on file Legal Sex Female 2:39 PM CDT Gender Identity Not on file Sexual Orientation Not on file documented as of this encounter Miscellaneous Notes * Cerner Conversion Note - Historical ProviderMD - 07/22/2021 9:26 AM STAVE MACHINE TENDER Patient: SUDHA SOLORZANO Age: 75 Years Sex: Female : 1945 I WAS CONSULTED TO SEE THE PATIENT BUT THE PATIENT SEES DR LUNDY OF NEPHROLOGY. PUT A CONSULT IN FOR HIM. Electronically signed by Julian Baca Conversion Television Equipment Operator [place] at 12/18/2022 9:15 AM CDT documented in this encounter Plan of Treatment Not on file documented as of this encounter Visit Diagnoses Not on filedocumented in this encounter
--- OUTSIDE RECORDS SUMMARY | 2025-03-08 13:20 | XMS_ITS | Encounter Summary ---
Author Organization [employer] ([place], [place], [place], [place]) Address [address] [place] [address] Care Team Providers Care Blasting Gang Miner Name Role Phone Unavailable Primary Care Provider Unavailabl e Encounter Details Date Type Department Care Team (Late st Contact Info) Description 06/24/2021 Transcribed Document [facility] [place] Family Medicine [address] [place] [address] ProviderTg MD [address] [place] [address] Social History Tobacco Use Types Packs/Day Years Used Date Smoking Tobacco: Never Assessed Comments Unknown Sex and Gender Information Value Date Recorded Sex Assigned at Not on file Legal Sex Female 2:39 PM CDT Gender Identity Not on file Sexual Orientation Not on file documented as of this encounter Miscellaneous Notes * Cerner Conversion Note - Tg ProviderMD - 06/24/2021 4:21 PM CDT Patient: SUDHA SOLORZANO Age: 75 Years Sex: Female : 1945 Subjective Patient is doing well this morning states her pain is improved. Epistaxis has resolved and CorPak was removed after speech therapy evaluated yesterday. No other acute events overnight. Vital Signs T: 36.8 ??C HR: 86(Monitored) RR: 18 BP: 133/81 SpO2: 97% Oxygen Settings (Last) Oxygen Therapy Mode: Room air (06/24/21 05:48:00) Oxygen Flow Rate: 1 Liter/Min (06/19/21 15:00:00) Intake & Output Totals Last 24 Hours (7a-7a) Input Total: 350 mL Output Total: 0 mL Balance: 350 mL Physical Exam General: Chronically ill appearing female who is more alert today and talking more. HEENT: Epistaxis has resolved. Corpak removed Cardiac: RRR no m/r/g. 2/4 radial pulses bilaterally. Extremities: Trace LE edema bilaterally Lungs: CTAB with decreased breath sounds in the lower lobes bilaterally. Normal respiratory rate and effort on room air. GI: Abdomen soft, nontender, nondistended. Corpak in place with tube feeds. MSK: 3/5 strength in the UE and LE bilaterally. Very debilitated Neuro: AOx3 speech better today, mentation continues to be much improved. No sensory or focal deficits. Skin: No [...] artery consistent with PE - ID following recommending Minocycline 100mg q12 - Completed Zosyn 06/23 - Continue holding [...] - Received 1 unit PRBC 06/23 - Hbg 7.6 today - Stopping Therapeutic Lovenox, will hold OAC for 1 week. Can discuss with PCP on discharge about Eliquis for PE. - Continue to monitor and transfuse for [...] component 18. Hx of non-Hodgkin's lymphoma Disposition: Patient's mentation much improved and stable since starting Depakote. Patient's hemoglobin stable 7.6 today not requiring transfusion. Speech evaluated patient yesterday, CorPak and tube feeding was discontinued. Patient now ordered regular/thin diet and tolerating it well. Case management working to send out referrals to SNF facility. Patient medically stable for discharge once SNF found. VTE Prophylaxis - Medical Sequential Compression [...] 06/24/2021 04:15 EDT Device Comment 1 Notified MD RBV 06/24/2021 11:00 EDT Device Comment 1 Notified Nurse RBV 06/24/2021 06:10 EDT Device Comment 1 Notified Nurse RBV 06/23/2021 23:46 EDT Glucose POC2 100 mg/dL 06/24/2021 11:00 EDT Glucose POC2 97 mg/dL 06/24/2021 06:10 EDT Glucose POC2 98 mg/dL 06/23/2021 23:46 EDT Lactate Dehydrogenase 389 Units/Liter (High) 06/24/2021 [...] Lymph # 1.87 x10(3)/uL 06/24/2021 04:15 EDT [place] % 10.2 % (High) 06/24/2021 04:15 EDT [place] # 1.12 K/uL (High) 06/24/2021 04:15 EDT [...] IG% 1.30 % (High) 06/24/2021 04:15 EDT documented in this encounter Plan of Treatment Not on file documented as of this encounter Visit Diagnoses Not on filedocumented in this encounter
--- OUTSIDE RECORDS SUMMARY | 2025-03-08 13:20 | XMS_ITS | Encounter Summary ---
Author Organization [employer] ([place], [place], [place], [place]) Address [address] [place] [address] Care Team Providers Care Diver Helper Name Role Phone Unavailable Primary Care Provider Unavailabl e Encounter Details Date Type Department Care Team (Late st Contact Info) Description 07/26/2021 Transcribed Document [facility] [place] Family Medicine [address] [place] [address] ProviderTg MD [address] [place] [address] Social History Tobacco Use Types Packs/Day Years Used Date Smoking Tobacco: Never Assessed Comments Unknown Sex and Gender Information Value Date Recorded Sex Assigned at Not on file Legal Sex Female 2:39 PM CDT Gender Identity Not on file Sexual Orientation Not on file documented as of this encounter Miscellaneous Notes * Cerner Conversion Note - Historical ProviderMD - 07/26/2021 2:54 PM SENIOR NETWORK ENGINEER Event Note Entered On: 07/26/2021 14:55 EST Performed On: 07/26/2021 14:54 EST by BRENNA PULIDO RN Event Note Event Date/Time : 07/26/2021 14:20 EST Description of Event : Temporary dialysis catheter removed from right subclavian without difficulty. Noah pressure held for 10 minutes BRENNA PULIDO RN - 07/26/2021 14:54 EST Electronically signed by Keven [facility] Conversion Tube Splicer Cerner at 12/18/2022 9:16 AM CDT documented in this encounter Plan of Treatment Not on file documented as of this encounter Visit Diagnoses Not on filedocumented in this encounter
--- OUTSIDE RECORDS SUMMARY | 2025-03-08 13:20 | XMS_ITS | Encounter Summary ---
Author Organization [employer] ([place], [place], [place], [place]) Address [address] [place] [address] Care Team Providers Care Wildland Fire Fighter Name Role Phone Unavailable Primary Care Provider Unavailabl e Encounter Details Date Type Department Care Team (Late st Contact Info) Description 07/28/2021 Transcribed Document [facility] [place] Family Medicine [address] [place] [address] ProviderTg MD [address] [place] [address] Social History Tobacco Use Types Packs/Day Years Used Date Smoking Tobacco: Never Assessed Comments Unknown Sex and Gender Information Value Date Recorded Sex Assigned at Not on file Legal Sex Female 2:39 PM CDT Gender Identity Not on file Sexual Orientation Not on file documented as of this encounter Miscellaneous Notes * Cerner Conversion Note - Tg Jones MD - 07/28/2021 1:21 PM DOOR FRAMER Patient: SUDHA TIMMONS Age: 75 years Sex: Female : 1945 Associated Diagnoses: None Author: HARPREET STOVER, Subjective pt seen by me this morning, no family present. she tells me that she is a little tired today but otherwise feels good, no coughing or sob, no chest pain or sob. no abd pain. she tells me that it is june of the 11th year, she tells me that she is too old when i ask her age and then later tells me that she is 56yo. Objective Intake and Output Intake & Output Totals Last 24 Hours (7a-7a) Intake (8 Events) Medications (278 mL) Oral Intake (720 mL) Output (2 Events) Hamlin Catheter (1900 mL) Input Total: 998 mL Output Total: 1900 mL Balance: -902 mL VS/Measurements Vitals Signs (last 24 hrs) Last Charted Minimum Maximum Temp 98.2 (JUL 28 10:00) 98.2 (JUL 28 10:) 98.4 (JUL 27 15:00) Mon HR 101 (JUL 28:00) 101 (JUL 28:23) 112 (JUL 27:08) Resp Rate 18 (JUL 28:) 16 (JUL 27:08) 18 (JUL 27 15:) SBP 121 (JUL 28:) 100 (JUL 27:08) 135 (JUL 28:23) DBP 63 (JUL 28:) L 42 (JUL 27:) 75 (JUL 27:) MAP 77 (JUL 28:) 62 (JUL 27:08) 96 (JUL 27:) SpO2 97 (JUL 28:) 97 (JUL 27:) 99 (JUL 27:) General: alert, lying in bed watching tv. . Eye: Pupils are equal, round and reactive to light, Normal conjunctiva. HENT: Normocephalic, Normal hearing. Respiratory: Lungs are clear to auscultation, Respirations are non-labored, Breath sounds are equal. Cardiovascular: Normal rate, Regular rhythm, No murmur, No edema. Gastrointestinal: Soft, Non-tender, Non-distended, Normal bowel sounds. Integumentary: Warm, Dry. Neurologic: Alert, tells me that it is june, tells me that she is old and then later answers 56 yo. . Psychiatric: Cooperative, Appropriate mood & affect. Results Review General results Interpretation: JUL 28 05:07 H 147 H 120 L 4 / 106 3.7 L 19 0.60 \ JUL 28 05:07 \ L 8.6 / 5.5 166 / L 30.0 \ Labs (Last four charted values) WBC 5.5 (JUL 28) 4.8 (JUL 27) 4.6 (JUL 26) 6.4 (JUL 25) HB L 8.6 (JUL 28) L 7.9 (JUL 27) L 7.8 (JUL 26) L 8.0 (JUL 25) HCT L 30.0 (JUL 28) L 24.7 (JUL 27) L 24.5 (JUL 26) L 24.9 (JUL 25) Plt 166 (JUL 28) L 135 (JUL 27) L 145 (JUL 26) L 149 (JUL 25) Na H 147 (JUL 28) 146 (JUL 27) 144 (JUL 26) 144 (JUL 25) K 3.7 (JUL 28) 3.7 (JUL 27) L 3.4 (JUL 26) 3.8 (JUL 25) Cl H 120 (JUL 28) H 119 (JUL 27) H 116 (JUL 26) H 116 (JUL 25) CO2 L 19 (JUL 28) 21 (JUL 27) 22 (JUL 26) 24 (JUL 25) BUN L 4 (JUL 28) L 4 (JUL 27) L 5 (JUL 26) L 4 (JUL 25) Cr 0.60 (JUL 28) 0.60 (JUL 27) 0.70 (JUL 26) 0.90 (JUL 25) Glu R 106 (JUL 28) 106 (JUL 27) H 119 (JUL 26) H 123 (JUL 25) Ca 8.8 (JUL 28) 8.5 (JUL 27) 8.4 (JUL 26) 8.7 (JUL 25) Lactic 0.5 (JUL 21) AST 14 (JUL 25) 17 (JUL 24) 18 (JUL 22) 19 (JUL 21) ALT 19 (JUL 25) 20 (JUL 24) 17 (JUL 22) 19 (JUL 21) ALK P 136 (JUL 25) H 150 (JUL 24) 123 (JUL 22) H 148 (JUL 21) T Bili 0.5 (JUL 25) 0.8 (JUL 24) 0.7 (JUL 22) 0.5 (JUL 21) PTN L 4.5 (JUL 25) L 4.8 (JUL 24) L 4.0 (JUL 22) L 4.7 (JUL 21) ALB L 2.7 (JUL 25) L 2.9 (JUL 24) L 2.3 (JUL 22) L 2.9 (JUL 21) Troponin 0.019 (JUL 21) No Radiology Results Found Impression and Plan acute metabolic and toxic encephalopathy with lithium toxicity - CT head showed no acute process - lithium level now nml - nephro consult appreciated- s/p HD on 07/24 to remove lithium. nephro consult appreciated - neurology consult appreciated- pt had extensive AMS workup in May for delirium bipolar disorder - hold lithium - continue depakote and seroquel - psych consulted hypomag - repleted enterococcus faecalius UTI, poa - stopped rocephin on 07/26, change to macrobid - urine cx from 07/21 noted diarrhea - monitor closely, stop rocephin. hypotension with history of hypertension - coreg scheduled was stopped and blood pressure improved thrombocytopenia, improved - monitor closely. HLD - continue atorvastatin macrocytic anemia - noted - no signs of bleeding - continue b12 replacement recent severe bleed on OAC for pulmonary embolism - hold OAC - monitor - hx of PE in may requiring severe bleeding non hodgkins lymphoma - noted GERD - continue daily protonix d/w rn and CM today spoke with son, rome, via phone on 07/27. he visited her yesterday and thinks that she is much improved. he asks if PT thinks she is strong enough to go home or if she needs snf. pt has not worked with her for a few days- will review todays noted when available and be able to better answer that question. time spent: 26 min discharge goals: mag repleted, david cleary mentation improving. PT note from 07/27 noted- pt still incredibly weak . anticipated discharge disposition: dc to snf on 07/29. Harpreet Dobbins Hospitalist pager- [phone] documented in this encounter Plan of Treatment Not on file documented as of this encounter Visit Diagnoses Not on filedocumented in this encounter
--- OUTSIDE RECORDS SUMMARY | 2025-03-08 13:20 | XMS_ITS | Encounter Summary ---
Author Organization [employer] ([place], [place], [place], [place]) Address [address] [place] [address] Care Team Providers Care Sed Special Education Teacher Name Role Phone Unavailable Primary Care Provider Unavailabl e Encounter Details Date Type Department Care Team (Late st Contact Info) Description 07/22/2021 Transcribed Document [facility] [place] Family Medicine [address] [place] [address] ProviderTg MD [address] [place] [address] Social History Tobacco Use Types Packs/Day Years Used Date Smoking Tobacco: Never Assessed Comments Unknown Sex and Gender Information Value Date Recorded Sex Assigned at Not on file Legal Sex Female 2:39 PM CDT Gender Identity Not on file Sexual Orientation Not on file documented as of this encounter Miscellaneous Notes * Cerner Conversion Note - Tg ProviderMD - 07/22/2021 5:37 AM SEPARATOR OPERATOR [employer] ED Discharge Entered On: 07/22/2021 5:38 EST Performed On: 07/22/2021 5:37 EST by CATHY OCONNELL it infrastructure specialist Process Patient Disposition : Admit/Observe Personal Belongings With Patient : Yes Nursing Documentation Completed : Yes CATHY OCONNELL RN - 07/22/2021 5:37 EST Admission, ED Nurse Report Accepted By : see ad hoc `Nurse Report (Hand Off) : Called Accompanied By, Discharge : Other: audiometric technician, approved by charge Fluids/Drips Continued on Admission : Yes Fluids/Drips Continued on Admission, Comment : see [facility] Mode Of Departure : CATHY Bustillo RN - 07/22/2021 5:37 EST Electronically signed by [facility] Conversion Service Car Operator Cerner at 12/18/2022 9:08 AM CDT documented in this encounter Plan of Treatment Not on file documented as of this encounter Visit Diagnoses Not on filedocumented in this encounter
--- OUTSIDE RECORDS SUMMARY | 2025-03-08 13:20 | XMS_ITS | Encounter Summary ---
Author Organization [employer] ([place], [place], [place], [place]) Address [address] [place] [address] Care Team Providers Care Verifying Machine Operator Name Role Phone Unavailable Primary Care Provider Unavailabl e Encounter Details Date Type Department Care Team (Late st Contact Info) Description 07/28/2021 Transcribed Document [facility] [place] Family Medicine [address] [place] [address] ProviderTg MD [address] [place] [address] Social History Tobacco Use Types Packs/Day Years Used Date Smoking Tobacco: Never Assessed Comments Unknown Sex and Gender Information Value Date Recorded Sex Assigned at Not on file Legal Sex Female 2:39 PM CDT Gender Identity Not on file Sexual Orientation Not on file documented as of this encounter Miscellaneous Notes * Cerner Conversion Note - Historical ProviderMD - 07/28/2021 5:00 AM CUSTOMER ENGAGEMENT REPRESENTATIVE Chart Check - Review Order Profile Entered On: 07/28/2021 3:55 EST Performed On: 07/28/2021 5:00 EST by Flaco Monson Lpn Chart Check Powerplans Initiated/Discontinued as Appropriate : Yes All Active Orders Reviewed : Yes Flaco Monson Lpn - 07/28/2021 3:55 EST Electronically signed by [facility] Conversion Foil Operator Cerner at 12/18/2022 9:06 AM CDT documented in this encounter Plan of Treatment Not on file documented as of this encounter Visit Diagnoses Not on filedocumented in this encounter
--- OUTSIDE RECORDS SUMMARY | 2025-03-08 13:20 | XMS_ITS | Encounter Summary ---
Author Organization [employer] ([place], [place], [place], [place]) Address [address] [place] [address] Care Team Providers Care Supervisor Pressing Department Name Role Phone Unavailable Primary Care Provider Unavailabl e Encounter Details Date Type Department Care Team (Late st Contact Info) Description 07/27/2021 Transcribed Document [facility] [place] Family Medicine [address] [place] [address] ProviderTg MD [address] [place] [address] Social History Tobacco Use Types Packs/Day Years Used Date Smoking Tobacco: Never Assessed Comments Unknown Sex and Gender Information Value Date Recorded Sex Assigned at Not on file Legal Sex Female 2:39 PM CDT Gender Identity Not on file Sexual Orientation Not on file documented as of this encounter Miscellaneous Notes * Cerner Conversion Note - Tg ProviderMD - 07/27/2021 7:37 AM PACKAGE HANDLER Patient: SUDHA TIMMONS Age: 75 years Sex: Female : 1945 Associated Diagnoses: None Author: HARPREET STOVER, Subjective pt seen by me this morning, no family present. she tells me taht she feels much better, her brother visited her this am and she tells me that he was telling her how she was acting and she was shocked. she denies cp or sob, no abd pain or n/v Objective Intake and Output Intake & Output Totals Last 24 Hours (7a-7a) Intake (13 Events) Continuous Infusions (750 mL) Medications (60.5 mL) Oral Intake (480 mL) Output (1 Events) Hernandez Catheter (650 mL) Input Total: 1290.5 mL Output Total: 650 mL Balance: 640.5 mL VS/Measurements Vitals Signs (last 24 hrs) Last Charted Minimum Maximum Temp 98.3 (JUL 27 02:49) 98.3 (JUL 27 02:49) H 99.8 (JUL 26 10:00) Mon HR 93 (JUL 27 02:49) 87 (JUL 26 10:00) 113 (JUL 26 20:39) Resp Rate 18 (JUL 27 02:49) 16 (JUL 26 18:12) 18 (JUL 27 02:49) SBP 123 (JUL 27 02:49) 118 (JUL 26 18:12) 131 (JUL 26 20:39) DBP L 49 (JUL 27 02:49) L 49 (JUL 27 02:49) 89 (JUL 26 18:12) MAP 68 (JUL 27 02:49) 68 (JUL 27 02:49) 97 (JUL 26 18:12) SpO2 97 (JUL 27 02:49) 95 (JUL 26 10:00) 97 (JUL 26 18:12) General: alert, lying in bed watching tv. . Eye: Pupils are equal, round and reactive to light, Normal conjunctiva. HENT: Normocephalic, Normal hearing. Respiratory: Lungs are clear to auscultation, Respirations are non-labored, Breath sounds are equal. Cardiovascular: Normal rate, Regular rhythm, No murmur, No edema. Gastrointestinal: Soft, Non-tender, Non-distended, Normal bowel sounds. Integumentary: Warm, Dry. Neurologic: Alert, tells me that it is june 2021, tells me that she is old and then later answers 47 yo. . Psychiatric: Cooperative, Appropriate mood & affect. Results Review General results Interpretation: JUL 27 03:38 146 H 119 L 4 / 106 3.7 21 0.60 \ JUL 27 03:38 \ L 7.9 / 4.8 L 135 / L 24.7 \ Labs (Last four charted values) WBC 4.8 (JUL 27) 4.6 (JUL 26) 6.4 (JUL 25) 7.8 (JUL 24) HB L 7.9 (JUL 27) L 7.8 (JUL 26) L 8.0 (JUL 25) L 8.7 (JUL 24) HCT L 24.7 (JUL 27) L 24.5 (JUL 26) L 24.9 (JUL 25) L 26.4 (JUL 24) Plt L 135 (JUL 27) L 145 (JUL 26) L 149 (JUL 25) 177 (JUL 24) Na 146 (JUL 27) 144 (JUL 26) 144 (JUL 25) 145 (JUL 24) K 3.7 (JUL 27) L 3.4 (JUL 26) 3.8 (JUL 25) 3.9 (JUL 24) Cl H 119 (JUL 27) H 116 (JUL 26) H 116 (JUL 25) H 115 (JUL 24) CO2 21 (JUL 27) 22 (JUL 26) 24 (JUL 25) 25 (JUL 24) BUN L 4 (JUL 27) L 5 (JUL 26) L 4 (JUL 25) L 3 (JUL 24) Cr 0.60 (JUL 27) 0.70 (JUL 26) 0.90 (JUL 25) 0.90 (JUL 24) Glu R 106 (JUL 27) H 119 (JUL 26) H 123 (JUL 25) H 145 (JUL 24) Ca 8.5 (JUL 27) 8.4 (JUL 26) 8.7 (JUL 25) 9.4 (JUL 24) Lactic 0.5 (JUL 21) AST 14 (JUL [...] continue depakote and seroquel - psych consulted hypomag, new - replete today enterococcus faecalius UTI, poa - stopped rocephin on 07/26, change to macrobid - urine cx from 07/21 noted diarrhea - monitor closely, stop rocephin. hypotension with history of hypertension - coreg scheduled was stopped and blood pressure improved thrombocytopenia, worse - monitor closely. HLD - continue atorvastatin macrocytic anemia - noted - no signs of bleeding - continue b12 replacement recent severe bleed on OAC for pulmonary embolism - hold OAC - monitor - hx of PE in may requiring severe bleeding non hodgkins lymphoma - noted GERd - continue daily protonix d/w rn spoke with son, rome, via phone today. he visited her yesterday and thinks that she is much improved. he asks if PT thinks she is strong enough to go home or if she needs snf. pt has not worked with her for a few days- will review todays noted when available and be able to better answer that question. time spent: 26 min discharge goals: replete mag, dc hernandez and iv fluids. PT to continue to work with patient. anticipated discharge disposition: snf vs. home based on pt notes Harpreet Dobbins Hospitalist pager- [phone] documented in this encounter Plan of Treatment Not on file documented as of this encounter Visit Diagnoses Not on filedocumented in this encounter
--- OUTSIDE RECORDS SUMMARY | 2025-03-08 13:20 | XMS_ITS | Encounter Summary ---
Author Organization [employer] ([place], [place], [place], [place]) Address [address] [place] [address] Care Team Providers Care Inspector Automatic Typewriter Name Role Phone Unavailable Primary Care Provider Unavailabl e Encounter Details Date Type Department Care Team (Late st Contact Info) Description 07/22/2021 Transcribed Document [facility] [place] Family Medicine [address] [place] [address] ProviderTg MD [address] [place] [address] Social History Tobacco Use Types Packs/Day Years Used Date Smoking Tobacco: Never Assessed Comments Unknown Sex and Gender Information Value Date Recorded Sex Assigned at Not on file Legal Sex Female 2:39 PM CDT Gender Identity Not on file Sexual Orientation Not on file documented as of this encounter Miscellaneous Notes * Cerner Conversion Note - Historical ProviderMD - 07/22/2021 3:34 AM MARKING CLERK Provider Notification Entered On: 07/22/2021 3:39 EST Performed On: 07/22/2021 3:34 EST by CATHY OCONNELL RN Provider Notification Provider Notified of : Nurse concerns Provider Notified Name : LAURE COVINGTON DO-INT Provider Notified Time : 07/22/2021 3:00 EST Results to Provider Comment : RN informed MD of pt. current hypotension. MD gave orders. will continue to monitor and complete orders. CATHY OCONNELL RN - 07/22/2021 3:34 EST Electronically signed by Roger Baca Conversion Auto Wheel Alignment Specialist Cerguevara at 12/18/2022 9:13 AM CDT documented in this encounter Plan of Treatment Not on file documented as of this encounter Visit Diagnoses Not on filedocumented in this encounter
--- OUTSIDE RECORDS SUMMARY | 2025-03-08 13:20 | XMS_ITS | Encounter Summary ---
Author Organization [employer] ([place], [place], [place], [place]) Address [address] [place] [address] Care Team Providers Care Paving Block Cutter Name Role Phone Unavailable Primary Care Provider Unavailabl e Encounter Details Date Type Department Care Team (Late st Contact Info) Description 07/29/2021 Transcribed Document [facility] [place] [address] [place] [address] ProviderTg MD [address] [place] [address] Social History Tobacco Use Types Packs/Day Years Used Date Smoking Tobacco: Never Assessed Comments Unknown Sex and Gender Information Value Date Recorded Sex Assigned at Not on file Legal Sex Female 2:39 PM CDT Gender Identity Not on file Sexual Orientation Not on file documented as of this encounter Miscellaneous Notes * Cerner Conversion Note - Tg ProviderMD - 07/29/2021 10:26 AM TIRE MOLD TESTER Patient: SUDHA TIMMONS Age: 75 years Sex: Female : 1945 Associated Diagnoses: None Author: HARPREET STOVER DO Results Review Admission Date: Admit Date 07/21/2021 20:00 Discharge Date: 07/29/2021 Discharge Information discharge to [facility] Physical Examination VS/Measurements Vitals Signs (last 24 hrs) Last Charted Minimum Maximum Temp 97.4 (JUL 29 09:30) 97.4 (JUL 29 09:30) 98.3 (JUL 28 14:00) Mon HR 98 (JUL 29 09:30) 97 (JUL 28 21:44) 116 (JUL 29 01:08) Resp Rate 18 (JUL 29 09:30) 18 (JUL 28 21:44) 18 (JUL 28 21:44) SBP 134 (JUL 29 09:30) 107 (JUL 28 21:44) H 144 (JUL 28 18:00) DBP 69 (JUL 29 09:30) 62 (JUL 29 05:16) 69 (JUL 29 09:30) MAP 85 (JUL 29 09:30) 76 (JUL 28 21:44) 114 (JUL 28 18:00) SpO2 95 (JUL 29 09:30) 95 (JUL 29 09:30) 95 (JUL 29 09:30) Ms. Timmons was seen by me this morning, she is lying in bed watching tv. she denies cp or sob, no abd pain or n/v. she tells me that it is June of 2011. She tells me that she is 47 yo, she knows correct . she tells me that she is currently at her father house because she had a spell . heart RRR, lungs CTA on room air. 1+ bilateral LE edema at ankles. Hospital Course Significant labs/imaging: No Radiology Results Found CBC Results (Current Encounter/Past 24 Hours) WBC 5.4 K/uL 07/29/2021 08:48 Hct 23.6 % LOW 07/29/2021 08:50 Hgb 7.5 g/dL LOW 07/29/2021 08:50 Platelet Count 174 K/uL 07/29/2021 08:48 CMP Results (Current Encounter/Past 24 Hours) eGFR >60 mL/min/1.73m2 07/29/2021 06:59 Bun/Creatinine 10.0 07/29/2021 06:59 Creatinine Level 0.60 mg/dL 07/29/2021 06:59 eGFR NonAfrican >60 mL/min/1.73m2 07/29/2021 06:59 Sodium Level 146 mmol/L 07/29/2021 06:59 Potassium Level 4.9 mmol/L 07/29/2021 06:59 Chloride Level 120 mmol/L GA 07/29/2021 06:59 Carbon Dioxide Level 20 mmol/L LOW 07/29/2021 06:59 Anion Gap 11 07/29/2021 06:59 Blood Urea Nitrogen 6 mg/dL LOW 07/29/2021 06:59 Glucose Level 108 mg/dL GA 07/29/2021 06:59 Calcium Level 9.4 mg/dL 07/29/2021 06:59 Magnesium Level 2.0 mg/dL 07/28/2021 05:34 Consultants: nephrology neurology Psychiatry Procedures: dialysis x 1 on 07/24 for lithium toxicity Problem List: acute metabolic and toxic encephalopathy with lithium toxicity - CT head showed no acute process - lithium level now nml - nephro consult appreciated- s/p HD on 07/24 to remove lithium. nephro consult appreciated - neurology consult appreciated- pt had extensive AMS workup in May for delirium bipolar disorder - STOP lithium - continue depakote and seroquel - depakote level nml on 07/29 - psych consult appreciated, recommend to hold lithium hypomag - repleted enterococcus faecalius UTI, poa - stopped rocephin on 07/26, changed to macrobid, will continue for 5 days on dc - urine cx from 07/21 noted diarrhea - resolved hypotension with history of hypertension - coreg scheduled was stopped and blood pressure improved thrombocytopenia, improved - monitor closely. HLD - continue atorvastatin macrocytic anemia - noted - no signs of bleeding - continue b12 replacement recent severe bleed on OAC for pulmonary embolism - OAC still on hold on admission - monitor - hx of PE in may requiring severe bleeding non hodgkins lymphoma - noted GERD - continue daily protonix hospital course: Ms. Timmons is 75 year old female who had significant hospital stay here in May 2021 for COVID, PE with anemia and severe bleeding and confusion, she was eventually discharged to [place] for rehab on 06/28/2021, she presented to [facility] on 07/21 for evaluation of worsening confusion, she was found to have lithium toxicity here, she was admitted and seen by neurology and nephrology, she actually did require dialysis x 1 on 07/24 as her lithium levels did not improve. They resolved with dialysis and mentation is much improved. Her coreg was decreased here due to normal blood pressure levels. She also had enterococcus faecalius UTI here and will be discharged on 5 more days of macrobid. She was also seen by psychiatry here and they recommend to continue to STOP lithium. She is being discharged back to [place] on 07/29 for continued rehab. Discharge Follow Up Follow up with primary care provider - Within 2 to 3 days stop taking lithium - Within 2 to 3 days Discharge Activity Activity as tolerated Discharge Plan Discharge Summary Plan Discharge Status: stable. Discharge instructions given: to patient. Prescriptions: Home Medications (15) Active Aspirin Low Dose 81 mg oral delayed release tablet 81 mg = 1 Tab, Oral, Daily atorvastatin 40 mg oral tablet 40 mg = 1 Tab, Oral, At Bedtime bisacodyl 10 mg rectal suppository 1 Supp, PRN, Rectal, Daily Colace 100 mg oral capsule 100 mg = 1 Cap, PRN, Oral, BID Coreg 3.125 mg oral tablet 3.125 mg = 1 Tab, Oral, BID (dose decreased here) Depakote 250 mg oral delayed release tablet 250 mg = 1 Tab, Oral, BID furosemide 20 mg oral tablet 20 mg = 1 Tab, Oral, EveryOtherDay lisinopril 2.5 mg oral tablet 2.5 mg = 1 Tab, Oral, Daily Macrobid 100 mg oral capsule 100 mg = 1 Cap, Oral, BID for 5 days Multiple Vitamins oral tablet 1 Tab, Oral, Daily Weston 5 mg-325 mg oral tablet 1 Tab, PRN, Oral, BID pantoprazole 40 mg oral delayed release tablet 40 mg = 1 Tab, Oral, Daily polyethylene glycol 3350 oral powder for reconstitution 17 Gram, Oral, Daily QUEtiapine 300 mg oral tablet 300 mg = 1 Tab, Oral, At Bedtime Vitamin B12 1000 mcg oral tablet 1,000 mcg = 1 Tab, Oral, Daily . Time spent on discharge: 35 min Harpreet Dobbins Hospitalist documented in this encounter Plan of Treatment Not on file documented as of this encounter Visit Diagnoses Not on filedocumented in this encounter
--- OUTSIDE RECORDS SUMMARY | 2025-03-08 13:20 | XMS_ITS | Encounter Summary ---
Author Organization [employer] ([place], [place], [place], [place]) Address [address] [place] [address] Care Team Providers Care Room Manager Name Role Phone Unavailable Primary Care Provider Unavailabl e Encounter Details Date Type Department Care Team (Late st Contact Info) Description 07/22/2021 Transcribed Document [facility] [place] [address] [place] [address] ProviderTg MD [address] [place] [address] Social History Tobacco Use Types Packs/Day Years Used Date Smoking Tobacco: Never Assessed Comments Unknown Sex and Gender Information Value Date Recorded Sex Assigned at Not on file Legal Sex Female 2:39 PM CDT Gender Identity Not on file Sexual Orientation Not on file documented as of this encounter Miscellaneous Notes * [employer] Conversion Note - Historical ProviderMD - 07/22/2021 8:00 AM PAIL BAILER Consult Phone Call Documentation Entered On: 07/22/2021 9:04 EST Performed On: 07/22/2021 8:00 EST by Marcela Agosto COUNT INCLUDES [facility] Phone Call for Consults Consult Phone Call/Page Attempt : First call Consult Reason : [place] overdose Physician Requesting Consult : LAURE COVINGTON DO-INT Physician Requested for Consult : HAL LUCAS MD-[facility] Provider Service Notified Name : Nephrology Date and Time Call Returned : 07/22/2021 9:04 EST Marcela Agosto COUNT INCLUDES [facility] - 07/22/2021 9:03 EST documented in this encounter Plan of Treatment Not on file documented as of this encounter Visit Diagnoses Not on filedocumented in this encounter
--- OUTSIDE RECORDS SUMMARY | 2025-03-08 13:20 | XMS_ITS | Encounter Summary ---
Author Organization [employer] ([place], [place], [place], [place]) Address [address] [place] [address] Care Team Providers Care Coreroom Foundry Laborer Name Role Phone Unavailable Primary Care Provider Unavailabl e Encounter Details Date Type Department Care Team (Late st Contact Info) Description 07/28/2021 Transcribed Document [facility] [place] Family Medicine [address] [place] [address] ProviderTg MD [address] [place] [address] Social History Tobacco Use Types Packs/Day Years Used Date Smoking Tobacco: Never Assessed Comments Unknown Sex and Gender Information Value Date Recorded Sex Assigned at Not on file Legal Sex Female 2:39 PM CDT Gender Identity Not on file Sexual Orientation Not on file documented as of this encounter Miscellaneous Notes * Cerner Conversion Note - Historical ProviderMD - 07/28/2021 11:32 AM ELECTRIC METER TESTER Discharge Summary, LIFE SCIENCE TECHNICAL OFFICER Entered On: 07/28/2021 11:32 EST Performed On: 07/28/2021 11:32 EST by GIRISH DAVIES, LIFE SCIENCE TECHNICAL OFFICER Discharge Notation. LIFE SCIENCE TECHNICAL OFFICER Dysphagia Treatment After Discharge : No Discharge Diet : Mechanical soft Discharge Liquids : Thin Discharge Summary Comment, LIFE SCIENCE TECHNICAL OFFICER : Pt seen for re-assessment today given significant improvement in mentation. Please see ST note for full details. [facility] and continue thin liquids. If family brings teeth she may be advanced to regular solids without ST reconsult. Nothing further for ST to offer and will sign off. GIRISH DAVIES, BLANCHE - 07/28/2021 11:32 EST Swallow Plan/Goals Swallow LTG Grid LIFE SCIENCE TECHNICAL OFFICER Hand Iii Cutter Goal #1 LIFE SCIENCE TECHNICAL OFFICER Residential Goal #2 Swallow LTG : Improve swallowing function for oral intake Other: Pt goal: Unable to state Status : Goal met Date Met : 07/28/2021 EST GIRISH DAVIES, BLANCHE - 07/28/2021 11:32 EST GIRISH DAVIES, LIFE SCIENCE TECHNICAL OFFICER - 07/28/2021 11:32 EST Swallow Goals Grid Goal #1 Swallow STG : Tolerate diet advancement (liquid or solids) Related To : Aspiration prevention Date to Meet : 07/29/2021 EST Status : Goal met Date Met : 07/28/2021 GIRISH VILLEGAS, LIFE SCIENCE TECHNICAL OFFICER - 07/28/2021 11:32 EST Electronically signed by [facility] Conversion Refinery Operator Vapor Recovery Unit Cerner at 12/18/2022 9:13 AM CDT documented in this encounter Plan of Treatment Not on file documented as of this encounter Visit Diagnoses Not on filedocumented in this encounter
--- OUTSIDE RECORDS SUMMARY | 2025-03-08 13:20 | XMS_ITS | Encounter Summary ---
Author Organization [employer] ([place], [place], [place], [place]) Address [address] [place] [address] Care Team Providers Care Drop Tester Name Role Phone Unavailable Primary Care Provider Unavailabl e Encounter Details Date Type Department Care Team (Late st Contact Info) Description 06/24/2021 Transcribed Document [facility] [place] [address] [place] [address] ProviderTg MD [address] [place] [address] Social History Tobacco Use Types Packs/Day Years Used Date Smoking Tobacco: Never Assessed Comments Unknown Sex and Gender Information Value Date Recorded Sex Assigned at Not on file Legal Sex Female 2:39 PM CDT Gender Identity Not on file Sexual Orientation Not on file documented as of this encounter Miscellaneous Notes * Cerner Conversion Note - Tg Jones MD - 06/24/2021 12:08 PM CDT Patient: SUDHA TIMMONS Age: 75 [...] and minocycline 06/24 afebrile, conversant, denies pain ROS - not available - discussed with [...] hrs) Last Charted Minimum Maximum Temp 98.3 (JUN 24 11:07) 97.4 (JUN 23 14:15) 98.2 (JUN 23 17:03) Mon HR 86 (JUN 24 11:07) 86 (JUN 23 17:03) 105 (JUN 24 05:48) Resp Rate 18 (JUN 24 11:07) 18 (JUN 23 17:03) 18 (JUN 23 17:03) SBP 133 (JUN 24 11:07) 117 (JUN 23 14:15) 133 (JUN 24 11:07) DBP 81 (JUN 24 11:07) 70 (JUN 23 14:15) 81 (JUN 24 11:07) MAP 97 (JUN 24 11:07) 86 (JUN 23 14:15) 97 (JUN 24 11:07) SpO2 97 (JUN 24 11:07) L 90 (JUN 24 05:48) 98 (JUN 23 14:15) General: no distress, On RA Eye: Normal conjunctiva. HENT: Normocephalic, Oral mucosa is moist. Neck: Supple, Non-tender. Respiratory: Lungs are clear to auscultation, Breath sounds are equal. Cardiovascular: Normal rate, Normal peripheral perfusion, Mild LE edema Gastrointestinal: Soft, Non-tender Musculoskeletal: No deformity. Integumentary: Warm, Dry. Neurologic: groggy, confused. Psychiatric: not Cooperative. Review / Management Results review: Labs (Last four charted values) WBC H 10.9 (JUN 24) 10.2 (JUN 23) H 10.6 (JUN 22) H 10.8 (JUN 21) HB L 7.6 (JUN 24) L 7.8 (JUN 23) L 6.3 (JUN 23) L 7.5 (JUN 22) HCT L 23.3 (JUN 24) L 19.3 (JUN 23) L 19.5 (JUN 22) L 21.9 (JUN 21) Plt L 142 (JUN 24) L 152 (JUN 23) 168 (MAY 24) 184 (JUN 21) Na 136 (JUN 24) 138 (JUN 23) 139 (JUN 22) 143 (JUN 21) K 4.8 (JUN 24) 4.7 (JUN 23) 4.6 (MAY 24) 4.9 (JUN 21) Cl 105 (JUN 24) 107 (JUN 23) 110 (JUN 22) 112 (JUN 21) CO2 24 (JUN 24) 25 (JUN 23) 23 (JUN 22) 24 (JUN 21) BUN H 23 (JUN 24) H 26 (JUN 23) H 28 (MAY 24) H 26 (JUN 21) Cr 0.80 (JUN 24) 0.80 (OCT 25) 0.80 (OCT 24) 0.80 (OCT ) Glu R 82 (JUN 24) H 140 (JUN 23) H 140 (MAY 24) H 143 (JUN 21) Ca 8.5 (JUN 24) L 8.1 (JUN 23) L 7.9 (MAY 24) L 8.3 (MAY 23) Lactic 1.6 (JUN 17) 1.0 (JUN 07) [...] isolation based on onset of symptoms 06/[address] Burns and RN Complex case documented in this encounter Plan of Treatment Not on file documented as of this encounter Visit Diagnoses Not on filedocumented in this encounter
--- OUTSIDE RECORDS SUMMARY | 2025-03-08 13:20 | XMS_ITS | Encounter Summary ---
Author Organization [employer] ([place], [place], [place], [place]) Address [address] [place] [address] Care Team Providers Care Centrifugal Chiller Technician Name Role Phone Unavailable Primary Care Provider Unavailabl e Encounter Details Date Type Department Care Team (Late st Contact Info) Description 07/22/2021 Transcribed Document [facility] [place] [address] [place] [address] ProviderTg MD [address] [place] [address] Social History Tobacco Use Types Packs/Day Years Used Date Smoking Tobacco: Never Assessed Comments Unknown Sex and Gender Information Value Date Recorded Sex Assigned at Not on file Legal Sex Female 2:39 PM CDT Gender Identity Not on file Sexual Orientation Not on file documented as of this encounter Miscellaneous Notes * Cerner Conversion Note - Tg ProviderMD - 07/22/2021 8:02 AM RUG UNDERLAY MACHINE OPERATOR Education-Wound Care Entered On: 07/22/2021 10:59 EST Performed On: 07/22/2021 8:02 EST by Sandra Martinez RN-PATIENT CARE BEDSIDE NON-EXEMPT Teaching/Learning Assessment Barriers To Learning : Cognitive deficit Individuals Taught : Patient Readiness to Learn : Other: decreased LOC Highest Level of Education : High school Baseline Knowledge of Topic : Other: unable to assess Readiness to Learn : Explanation, Door Slinger, Printed materials, Teach back method, Video/Educational TV System Generated Printed Materials *Q : Yes Learning Style Preferences Patient : Other: unable to articulate Learning Style Preferences Family : Other: unable to articulate Education Comment : cognitive deficit Sandra Martinez RN-PATIENT CARE BEDSIDE NON-EXEMPT - 07/22/2021 10:57 EST documented in this encounter Plan of Treatment Not on file documented as of this encounter Visit Diagnoses Not on filedocumented in this encounter
--- OUTSIDE RECORDS SUMMARY | 2025-03-08 13:20 | XMS_ITS | Encounter Summary ---
Author Organization [employer] ([place], [place], [place], [place]) Address [address] [place] [address] Care Team Providers Care Ship'S Electronic Warfare Officer Name Role Phone Unavailable Primary Care Provider Unavailabl e Encounter Details Date Type Department Care Team (Late st Contact Info) Description 07/22/2021 Transcribed Document [facility] [place] Medicine [facility] [place] [address] ProviderTg MD [address] [place] [address] Social History Tobacco Use Types Packs/Day Years Used Date Smoking Tobacco: Never Assessed Comments Unknown Sex and Gender Information Value Date Recorded Sex Assigned at Not on file Legal Sex Female 2:39 PM CDT Gender Identity Not on file Sexual Orientation Not on file documented as of this encounter Miscellaneous Notes * Cerner Conversion Note - Tg Jones MD - 07/22/2021 3:17 PM SHOVEL HANDLE ASSEMBLER DATE OF CONSULTATION: REASON FOR CONSULTATION: Wyand[place] toxicity, evaluate for possible hemodialysis. CHIEF COMPLAINT: Brought in for evaluation of altered mental status and confusion. HISTORY OF PRESENT ILLNESS: The patient is a 75-year-old female, a half-way resident with past medical history significant for non-Hodgkin lymphoma, major depressive disorder, hypertension, generalized anxiety disorder, bipolar disorder, on lithium, who came in via the emergency room, brought in for evaluation of altered mental status. Apparently on the day of presentation, the patient became confused, was having actively trembling with the suspicion of possible lithium toxicity by which time EMS was activated and the decision was taken to bring the patient in for evaluation. The patient lives in the half-way now, [place]. On the day of presentation, [place] had called EMS. The patient was said to be confused. A day prior to presentation, the patient was in normal state of health, began actively confused. The patient was previously admitted to the hospital for complicated hospital call. At the time patient had acute kidney injury and had required a nephrology evaluation. On presentation to the emergency room, patient's lithium level was elevated at 4.2. The patient has a normal renal function and was started on IV fluid with monitoring of lithium level. REVIEW OF SYSTEMS: Unable to obtain, because of the altered mental status. PAST MEDICAL HISTORY: Significant for bipolar disorder on lithium, generalized anxiety disorder, hypertension, major depressive disorder, non-Hodgkin's lymphoma. PAST SURGICAL HISTORY: Significant for cardiac catheterization, bilateral breast reduction, total abdominal hysterectomy, ectopic , cataract extraction, sciatic nerve surgery, PowerPort placement. ALLERGIES: The patient is allergic to Anaprox, codeine, latex and naproxen. [facility] MEDICATIONS: Include: 1. Aspirin 81 mg p.o. daily. 2. Atorvastatin 40 mg p.o. at bedtime. 3. Colace 100 mg p.o. b.i.d. 4. Coreg 12.5 mg p.o. b.i.d. 5. Depakote 250 mg p.o. b.i.d. 6. Lasix 20 mg p.o. daily. 7. Hydroxyzine 250 mg p.o. daily. 8. Lisinopril 2.5 mg p.o. daily. 9. Wyandanch 300 mg p.o. b.i.d. 10. Multivitamin one tablet p.o. daily. 11. Pantoprazole 40 mg p.o. daily. 12. MiraLAX 17 g p.o. daily. 13. Potassium chloride 10 mEq p.o. daily. 14. . 15. Prednisone 5 mg p.o. daily. 16. Seroquel 300 mg p.o. at bedtime. 17. Vitamin B12 1000 mcg p.o. daily. SOCIAL HISTORY: The patient currently lives in a half-way. Smoking status, never a smoker. Secondhand smoking exposure, yes. SUBSTANCE ABUSE/RECREATIONAL DRUG USE HISTORY: None. Recreational drug use in last 3 months, none. Living situation. Alcohol; no alcohol use. FAMILY HISTORY: Unable to fully obtain, because of altered mental status. PHYSICAL EXAMINATION: VITAL SIGNS: Temperature is 98.7, respiratory rate is 22, heart rate is 106, blood pressure 124/72. GENERAL APPEARANCE: This is an elderly female [...] full conversation. EXTREMITIES: Lower extremities, no edema. LABORATORY INVESTIGATIONS: Done. Sodium is 144, potassium 4.5, chloride is 118, bicarb 21, anion gap is 10, glucose 63, BUN is 13, creatinine is 0.8, GFR is greater than 60, calcium is 7.6, total protein is 4.0, albumin is 2.3, globulin is 1.7, AST is 18, ALT 17, magnesium is 1.6. Lactic acid 0.5. Folate level is greater than 20. Vitamin B12 is greater than 2000. CK is 188. Troponin is 0.017. WBC 6.6, hemoglobin is 7.9, hematocrit is 24.6, platelet is 191. TSH level is 1.32. Procalcitonin is less than 0.25. Wy[place] level was 4.2, decreased to 3.3, and currently 2.7 with normal range of 0.6 to 1.2. Urine drug screen was positive for opioids. Influenza A and B negative. COVID-19 negative. Radiographic studies done. The patient had a CT scan of the head done. The ventricles are normal in size. There is no evidence of hemorrhage. No mass is identified. No abnormal extra fluid collection is seen. There are no evident of shift of the midline structures. Images of the sinuses reveal no evidence of mucosal thickening. No bony abnormality is seen on the bone window images. The patient had a chest x-ray done. The feeding tube has been removed. There is no change in the right Port-A-Cath. The heart size is normal. Patchy bilateral opacity, not significantly changed. There is no pneumothorax. Patchy bilateral opacity, not significantly changed. The patient had chest x-ray, the heart is stable in size. The lung gilman demonstrate no significant change in patchy bilateral airspace opacities. PROVISIONAL DIAGNOSES: Acute metabolic encephalopathy secondary to lithium toxicity. The patient has a history of bipolar disorder, was on lithium. Wy[place] level was elevated 4.2 to start with. The patient was appropriately started on IV fluid. The patient has a normal renal function. No obvious indication for renal replacement therapy. Case was discussed with poison control. No dialysis indicated at this time. We will continue to monitor the lithium level closely and monitor hypotensive episode, non-Hodgkin's lymphoma, gastroesophageal reflux disease. PLAN: The patient came in with radium toxicity. The patient has normal renal function. No obvious indication for renal replacement therapy. At this time, we will continue with IV fluid and continue to monitor the patient lithium level closely. Thank you for getting [facility] involved in the management of this patient. We will continue to follow up with you closely should in case there is any need for change in plan or therapy. Thank you once again. /[id number] MD MICHAEL Castillo/ROSA / MICHAEL / MODL /[id number] Electronically signed by Keven [facility] Conversion Category Specialist Cerner at 12/18/2022 9:14 AM CDT documented in this encounter Plan of Treatment Not on file documented as of this encounter Visit Diagnoses Not on filedocumented in this encounter
--- OUTSIDE RECORDS SUMMARY | 2025-03-08 13:20 | XMS_ITS | Encounter Summary ---
Author Organization [employer] ([place], [place], [place], [place]) Address [address] [place] [address] Care Team Providers Care Healthcare Applications Analyst Name Role Phone Unavailable Primary Care Provider Unavailabl e Encounter Details Date Type Department Care Team (Late st Contact Info) Description 07/26/2021 Transcribed Document [facility] [place] [address] [place] [address] ProviderTg MD [address] [place] [address] Social History Tobacco Use Types Packs/Day Years Used Date Smoking Tobacco: Never Assessed Comments Unknown Sex and Gender Information Value Date Recorded Sex Assigned at Not on file Legal Sex Female 2:39 PM CDT Gender Identity Not on file Sexual Orientation Not on file documented as of this encounter Miscellaneous Notes * Cerner Conversion Note - Historical ProviderMD - 07/26/2021 3:01 PM LOSS PREVENTION GUARD Attempt to Treat, PT Entered On: 07/26/2021 15:02 EST Performed On: 07/26/2021 15:01 EST by JAS LUQUE PTA Attempt to Treat Unable to Treat Due To : Patient Unavailable Inability to Treat Comment : Checked on patient twice and she had a large bm, with nursing needing to clean up. JAS LUQUE PTA - 07/26/2021 15:01 EST documented in this encounter Plan of Treatment Not on file documented as of this encounter Visit Diagnoses Not on filedocumented in this encounter
--- OUTSIDE RECORDS SUMMARY | 2025-03-08 13:20 | XMS_ITS | Encounter Summary ---
Author Organization [employer] ([place], [place], [place], [place]) Address [address] [place] [address] Care Team Providers Care Powder Mill Operator Name Role Phone Unavailable Primary Care Provider Unavailabl e Encounter Details Date Type Department Care Team (Late st Contact Info) Description 06/24/2021 Transcribed Document [facility] [place] [address] [place] [address] ProviderTg MD [address] [place] [address] Social History Tobacco Use Types Packs/Day Years Used Date Smoking Tobacco: Never Assessed Comments Unknown Sex and Gender Information Value Date Recorded Sex Assigned at Not on file Legal Sex Female 2:39 PM CDT Gender Identity Not on file Sexual Orientation Not on file documented as of this encounter Miscellaneous Notes * Cerner Conversion Note - Historical ProviderMD - 06/24/2021 2:00 AM CDT Teletypesetter Operator Details Entered On: 06/24/2021 3:45 EDT Performed On: 06/24/2021 2:00 EDT by Magda Dawson Rn Order Details Transport Mode Order Detail : Bed (including specialty) Isolation Precautions Order Detail : Airborne precautions, Contact precautions, Droplet precautions Order Detail : N/A IV Order Detail : 0 Oxygen Order Detail : 0 Nurse Collect Order Detail : 1 Lift/Transfer : Maximal assist Central Line Order Detail : Yes Room Service : Needs Assistance Arterial Line : Yes Patient Needs Meds Crushed/Liquid : Yes Meds Administered Via Tube : No Magda Dawson Rn - 06/24/2021 3:45 EDT documented in this encounter Plan of Treatment Not on file documented as of this encounter Visit Diagnoses Not on filedocumented in this encounter
--- OUTSIDE RECORDS SUMMARY | 2025-03-08 13:20 | XMS_ITS | Encounter Summary ---
Author Organization [employer] ([place], [place], [place], [place]) Address [address] [place] [address] Care Team Providers Care Fiberglass Tube Molder Name Role Phone Unavailable Primary Care Provider Unavailabl e Encounter Details Date Type Department Care Team (Late st Contact Info) Description 07/22/2021 Transcribed Document [facility] [place] Family Medicine [address] [place] [address] ProviderTg MD [address] [place] [address] Social History Tobacco Use Types Packs/Day Years Used Date Smoking Tobacco: Never Assessed Comments Unknown Sex and Gender Information Value Date Recorded Sex Assigned at Not on file Legal Sex Female 2:39 PM CDT Gender Identity Not on file Sexual Orientation Not on file documented as of this encounter Miscellaneous Notes * Cerner Conversion Note - Tg ProviderMD - 07/22/2021 5:35 AM FINISHING RANGE OPERATOR Meds to Bed Enrollment Entered On: 07/22/2021 9:19 EST Performed On: 07/22/2021 5:35 EST by Adalberto Cameron Stoker Installation Mechanic Cert Lead Meds to Bed Enrollment Patient Enrollment Decision: : Yes/enroll in meds to bed program Adalberto Cameron Stoker Installation Mechanic Cert Lead - 07/22/2021 9:19 EST documented in this encounter Plan of Treatment Not on file documented as of this encounter Visit Diagnoses Not on filedocumented in this encounter
--- OUTSIDE RECORDS SUMMARY | 2025-03-08 13:20 | XMS_ITS | Encounter Summary ---
Author Organization [employer] ([place], [place], [place], [place]) Address [address] [place] [address] Care Team Providers Care Crew Person Name Role Phone Unavailable Primary Care Provider Unavailabl e Encounter Details Date Type Department Care Team (Late st Contact Info) Description 07/22/2021 Transcribed Document [facility] [place] Family Medicine [address] [place] [address] ProviderTg MD [address] [place] [address] Social History Tobacco Use Types Packs/Day Years Used Date Smoking Tobacco: Never Assessed Comments Unknown Sex and Gender Information Value Date Recorded Sex Assigned at Not on file Legal Sex Female 2:39 PM CDT Gender Identity Not on file Sexual Orientation Not on file documented as of this encounter Miscellaneous Notes * Cerner Conversion Note - Tg ProviderMD - 07/22/2021 2:59 PM METAPHYSICIAN Patient: SUDHA SOLORZANO Age: 75 Years Sex: Female : 1945 Assessment/Plan Full consultation dictation to follow #[id number] [place] toxicity Initial level was elevated 3.3 now at 2.7 Normal renal function, no dialysis indicated at this time Continue to monitor lithium level closely on IV fluid VTE Prophylaxis - Medical Sequential Compression Device Start: 07/21/21 21:11:00 EST, Bilateral, Length: Knee High, While patient is in bed, Continuous Order (LAURE COVINGTON) Subjective Patient was seen and evaluated by bedside, admitted on account of lithium toxicity Vital Signs T: 37.1 ??C TMIN: 37 ??C TMAX: 37.1 ??C HR: 76(Monitored) RR: 20 BP: 144/70 SpO2: 97% Oxygen Settings (Last) Oxygen Therapy Mode: Room air (07/22/21 08:38:00) Intake & Output Totals Last 24 Hours (7a-7a) Input Total: 2420.25 mL Output Total: 0 mL Balance: 2420.25 mL Medications Ativan, 2 mg= 1 mL, IV Push, Q5Min, PRN Dextrose 5% with 0.9% NaCl intravenous solution 1,000 mL, 1000 mL, [...] Test Result Date/Time Sodium Level 144 mmol/L 07/22/2021 03:28 EST Potassium Level 4.5 mmol/L 07/22/2021 03:28 EST Chloride Level 118 mmol/L (High) 07/22/2021 03:28 EST Carbon Dioxide Level 21 mmol/L 07/22/2021 03:28 EST Anion Gap 10 07/22/2021 03:28 EST Glucose Level 63 mg/dL (Low) 07/22/2021 03:28 EST Blood Urea Nitrogen 13 mg/dL 07/22/2021 03:28 EST Creatinine Level 0.80 mg/dL 07/22/2021 03:28 EST eGFR >60 mL/min/1.73m2 07/22/2021 03:28 EST eGFR NonAfrican >60 mL/min/1.73m2 07/22/2021 03:28 EST Bun/Creatinine 16.2 07/22/2021 03:28 EST Calcium Level 7.6 mg/dL (Low) 07/22/2021 03:28 EST Protein Total 4.0 Gram/dL (Low) 07/22/2021 03:28 EST Albumin Level 2.3 Gram/dL (Low) 07/22/2021 03:28 EST Globulin 1.7 Gram/dL 07/22/2021 03:28 EST A/G Ratio 1.4 07/22/2021 03:28 EST Bilirubin Total 0.7 mg/dL 07/22/2021 03:28 EST Alk Phos 123 Units/Liter 07/22/2021 03:28 EST AST 18 Units/Liter 07/22/2021 03:28 EST ALT 17 Units/Liter 07/22/2021 03:28 EST Device Comment 1 Protocols Followed 07/22/2021 05:09 EST Glucose POC2 119 mg/dL (High) 07/22/2021 05:09 EST Folate Level >20 ng/mL 07/22/2021 03:28 EST Vitamin B12 Level >2000 pg/mL (High) 07/22/2021 03:28 EST WBC 6.6 K/uL 07/22/2021 03:28 EST RBC 2.21 Million/uL (Low) 07/22/2021 03:28 EST Hgb 7.9 g/dL (Low) 07/22/2021 03:28 EST Hct 24.6 % (Low) 07/22/2021 03:28 EST MCV 111.3 fL (High) 07/22/2021 03:28 EST MCH 35.7 pg (High) 07/22/2021 03:28 EST MCHC 32.1 Gram/dL (Low) 07/22/2021 03:28 EST Platelet Count 191 K/uL 07/22/2021 03:28 EST MPV 10.5 fL 07/22/2021 03:28 EST RDW 20.5 % (High) 07/22/2021 03:28 EST Neut % 67.0 % 07/22/2021 03:28 EST Neut # 4.41 K/uL 07/22/2021 03:28 EST Lymph % 12.3 % (Low) 07/22/2021 03:28 EST Lymph # 0.81 x10(3)/uL (Low) 07/22/2021 03:28 EST [place] % 14.6 % (High) 07/22/2021 03:28 EST [place] # 0.96 K/uL 07/22/2021 03:28 EST Eos % 5.5 % 07/22/2021 03:28 EST Eos # 0.36 x10(3)/uL 07/22/2021 03:28 EST Baso % 0.3 % 07/22/2021 03:28 EST Baso # 0.02 x10(3)/uL 07/22/2021 03:28 EST RBC Morphology Abnormal 07/22/2021 03:28 EST Anisocytosis 2+ (Abnormal) 07/22/2021 03:28 EST Poikilocytosis 1+ (Abnormal) 07/22/2021 03:28 EST Hypochromia 1+ (Abnormal) 07/22/2021 03:28 EST Randolph Cells occ 07/22/2021 03:28 EST Teardrop Cells 1+ (Abnormal) 07/22/2021 03:28 EST Acanthocytes occ 07/22/2021 03:28 EST Ovalocytes 1+ (Abnormal) 07/22/2021 03:28 EST Microcytosis 1+ (Abnormal) 07/22/2021 03:[address] Estimate Adequate 07/22/2021 03:28 EST IG# 0.02 x10(3)/uL 07/22/2021 03:28 EST IG% 0.30 % 07/22/2021 03:28 EST Urine Type. U CleanCatch 07/21/2021 18:38 EST Urine Color YELLOW2 07/21/2021 18:38 EST Urine Appearance CLEAR2 07/21/2021 18:38 EST Urine Specific [place] 1.012 07/21/2021 18:38 EST Urine pH Dipstick 7.0 07/21/2021 18:38 EST Urine Leukocyte Esterase SMALL2 (Abnormal) 07/21/2021 18:38 EST Urine Nitrite NEGATIVE2 07/21/2021 18:38 EST Urine Protein Dipstick NEGATIVE2 07/21/2021 18:38 EST Urine Glucose Dipstick NEGATIVE2 07/21/2021 18:38 EST Urine Ketones Dipstick 15 (Abnormal) 07/21/2021 18:38 EST Urine Urobilinogen Dipstick 1.0 07/21/2021 18:38 EST Urine Bilirubin Dipstick NEGATIVE2 07/21/2021 18:38 EST Urine Blood Dipstick NEGATIVE2 07/21/2021 18:38 EST Ur RBC 2-5 (Abnormal) 07/21/2021 18:38 EST Ur WBC 5-10 (Abnormal) 07/21/2021 18:38 EST Ur WBC Clumps Present (Abnormal) 07/21/2021 18:38 EST Ur Squamous Epithelial Cells 2-5 (Abnormal) 07/21/2021 18:38 EST Urine Culture if Indicated Not Indicated 07/21/2021 18:38 EST Acetaminophen Level 3.2 mcg/mL (Low) 07/21/2021 16:59 EST [place] Level 2.7 mmol/L (Critical) 07/22/2021 09:54 EST [place] Level see image 07/22/2021 03:28 EST Salicylate <1.7 mg/dL (Low) 07/21/2021 16:59 EST UDS pH 7.0 07/21/2021 18:38 EST UDS Amp NEG3 07/21/2021 18:38 EST UDS Stephy NEG3 07/21/2021 18:38 EST UDS Benzo NEG3 07/21/2021 18:38 EST UDS Javi NEG3 07/21/2021 18:38 EST UDS Opi POS2 (Abnormal) 07/21/2021 18:38 EST UDS PCP NEG3 07/21/2021 18:38 EST UDS TCA NEG3 07/21/2021 18:38 EST UDS THC NEG3 07/21/2021 18:38 EST Electronically signed by [facility], [facility] Conversion Seo Assistant Arlenener at 12/18/2022 9:15 AM CDT documented in this encounter Plan of Treatment Not on file documented as of this encounter Visit Diagnoses Not on filedocumented in this encounter
--- OUTSIDE RECORDS SUMMARY | 2025-03-08 13:20 | XMS_ITS | Encounter Summary ---
Author Organization [employer] ([place], [place], [place], [place]) Address [address] [place] [address] Care Team Providers Care Financial Market Dealer Name Role Phone Unavailable Primary Care Provider Unavailabl e Encounter Details Date Type Department Care Team (Late st Contact Info) Description 08/12/2021 Transcribed Document [facility] [place] Family Medicine [address] [place] [address] ProviderTg MD [address] [place], [place] [id number] Social History Tobacco Use Types Packs/Day Years Used Date Smoking Tobacco: Never Assessed Comments Unknown Sex and Gender Information Value Date Recorded Sex Assigned at Not on file Legal Sex Female 2:39 PM CDT Gender Identity Not on file Sexual Orientation Not on file documented as of this encounter Miscellaneous Notes * Cerner Conversion Note - Historical ProviderMD - 08/12/2021 7:27 PM CREDIT CONTROL MANAGER [place] Suicide Severity Rating Scale (C-SSRS) Entered On: 08/12/2021 21:31 EST Performed On: 08/12/2021 21:29 EST by Chago Fabian RN-PATIENT CARE BEDSIDE NON-EXEMPT [place] Suicide Severity Rating Scale (C-SSRS) CSSRS Past Month Wish to be : No CSSRS Past Month Suicidal Thoughts : No CSSRS Lifetime Suicide Behavior : No Suicide Severity Rating Score : 0 Suicide Severity Rating : No Additional Care Required at this time Chago Fabian RN-PATIENT CARE BEDSIDE NON-EXEMPT - 08/12/2021 21:29 EST documented in this encounter Plan of Treatment Not on file documented as of this encounter Visit Diagnoses Not on filedocumented in this encounter
--- OUTSIDE RECORDS SUMMARY | 2025-03-08 13:20 | XMS_ITS | Encounter Summary ---
Author Organization [employer] ([place], [place], [place], [place]) Address [address] [place] [address] Care Team Providers Care Oven Unloader Name Role Phone Unavailable Primary Care Provider Unavailabl e Encounter Details Date Type Department Care Team (Late st Contact Info) Description 07/28/2021 Transcribed Document [facility] [place] Family Medicine [address] [place] [address] ProviderTg MD [address] [place] [address] Social History Tobacco Use Types Packs/Day Years Used Date Smoking Tobacco: Never Assessed Comments Unknown Sex and Gender Information Value Date Recorded Sex Assigned at Not on file Legal Sex Female 2:39 PM CDT Gender Identity Not on file Sexual Orientation Not on file documented as of this encounter Miscellaneous Notes * Cerner Conversion Note - Tg Jones MD - 07/28/2021 5:09 PM SOLAR POOL HEATING INSTALLER Patient: SUDHA TIMMONS Age: 75 Years Sex: Female : 1945 Chief Complaint Arrived via [facility] from [place] with a possible [place] Toxicity. Pt actively tremoring and confused. Pt has a hx of Anxitey, Bipolar & HTN. History of Present Illness Patient was brought in 07/21 with confusion. She reported not remembering how she came to hospital. She is unable to provide a recent history. She initially said she lived alone in [place]. She later told me she lived on [address] with her 98 year old father. When asked if she had been at [facility], she answered yes, in the past. She correctly identified June but believed it to be the 16th. She then became sad when asked about Tgiving and she believed her family cooked without her. She was unable to provide any information about her medical history. She could not recall any of her medical conditions without prompts. She then appeared to confabulate. When asked about lithium she asked whether it was in chocolate she ate. She had a similar presentation last month with neuro workup. She was started on Depakote at that time for possible seizure activity on EEG. During this admission she was lithium toxic with a level of 2.3. Her last check she was at a therapeutic level despite the med being stopped upon arrival to [facility]. Ms. Timmons admitted to a history of depression. She could not identify any history of yeimi. She knew of the bipolar diagnosis but not what symptoms led to it. She denied any h/o SI. Pertinent Medical, Family, Social History Has two children. Worked at [employer] x 32 years. Retired in 2006 Claimed she drives and lives independently. Past Psychiatric History Past Diagnoses: Bipolar Inpatient Treatments: None known Outpatient Treatments: Current Outpatient Provider: Prior Suicide Attempts: none Prior Psychiatric Medications: lithium Substance Abuse History details:(include substance, age at first use, age at problematic use, last use, amount currently being used, amount of most active use, sobriety, severe withdrawal symptoms) None Known Physical Exam Vitals & Measurements T: 36.8 ??C TMIN: 36.8 ??C TMAX: 37.2 ??C HR: 101(Monitored) RR: 18 BP: 125/64 SpO2: 97% Mental Status Exam Speech- fluent Motor- restless Mood- fine Affect- odd TC- no AVH, no delusions, no SI TP- concrete and confused Insight- poor Judgment- impaired Assessment/Plan Resolving Encephalopathy Rule out Underlying Dementia I agree with Dr. Mccollum. No lithium due to toxicity at administered doses and lack of h/o yeimi. She was started on Depakote empirically last month. We should check a VPA level and titrate the dose as necessary. She is not capable of making medical decisions currently. Hold: (X)None (_)MIW (_) [address] (until ) (_)Initiate a 72 Hour Hold if demands to leave or when transferred Plan discussed with Patient: (_)Yes (_)No 1:1 Sitter:(X)None (_)Present (_) Needed (_)No psychiatric sitter needed (_) NA Inpatient psychiatric admission: (_) Needed (X) Not needed (_)Assessing (_) NA Medications Inpatient aspirin, 81 mg= 1 Tab, Oral, Daily Ativan, 2 mg= 1 mL, IV Push, Q5Min, PRN atorvastatin, 40 mg= 1 Tab, Oral, At Bedtime bisacodyl, 10 mg= 1 Supp, Rectal, Daily, PRN Colace, 100 mg= 1 Cap, Oral, BID, PRN cyanocobalamin, 1000 mcg= 1 [...] lisinopril, 2.5 mg= 0.5 Tab, Oral, Daily Macrobid, 100 mg= 1 Cap, Oral, BID melatonin, 5 mg= 1 Tab, Oral, At Bedtime, PRN MiraLax, 17 Gram= 1 Packet, Oral, Daily, PRN [place] 5 mg-325 mg oral tablet, 1 Tab, Oral, BID, PRN Normal Saline Flush, 10 mL, IV Push, Q12H Normal Saline Flush, 10 mL, IV Push, See Comment, PRN pantoprazole, 40 mg= 1 Tab, Oral, Daily Phenergan, 6.25 mg= 0.25 mL, IntraVENous, Q6H, PRN QUEtiapine, 300 mg= 3 Tab, Oral, At Bedtime Tylenol, 650 mg= 2 Tab, Oral, Q4H, PRN Tylenol, 650 mg= 2 Tab, Oral, Q4H, PRN Zofran, 4 mg= 2 mL, IV Push, Q4H, PRN Home Aspirin Low Dose 81 mg oral delayed release tablet, 81 mg= 1 Tab, Oral, Daily atorvastatin 40 mg oral tablet, 40 mg= 1 Tab, Oral, At Bedtime bisacodyl 10 mg rectal suppository, 1 Supp, Rectal, Daily, PRN Colace 100 mg oral capsule, 100 mg= 1 Cap, Oral, BID, PRN Coreg 12.5 mg oral tablet, 12.5 mg= 1 Tab, Oral, BID Depakote 250 mg oral delayed release tablet, 250 mg= 1 Tab, Oral, BID furosemide 20 mg oral tablet, 20 mg= 1 Tab, Oral, EveryOtherDay lisinopril 2.5 mg oral tablet, 2.5 mg= 1 Tab, Oral, Daily lithium 300 mg oral capsule, 300 mg= 1 Cap, Oral, BID Multiple Vitamins oral tablet, 1 Tab, Oral, Daily [place] 5 mg-325 mg oral tablet, 1 Tab, Oral, BID, PRN pantoprazole 40 mg oral delayed release tablet, 40 mg= 1 Tab, Oral, Daily polyethylene glycol 3350 oral powder for reconstitution, 17 Gram, Oral, Daily potassium chloride 10 mEq oral capsule, extended release, 10 mEq= 1 Cap, Oral, Daily QUEtiapine 300 mg oral tablet, 300 mg= 1 Tab, Oral, At Bedtime Vitamin B12 1000 mcg oral tablet, 1000 mcg= 1 Tab, Oral, Daily Vitamin D2 1.25 mg (50,000 intl units) oral capsule, 35281 Int Units= 1 Cap, Oral Medications Confirmed Yes, reviewed (_) / Unable to confirm (_) Allergies Anaprox (Rash) Latex (Itching) codeine naproxen Lab Results JUL 28 05:07 H 147 H 120 L 4 / 106 3.7 L 19 0.60 \ JUL 28 05:07 \ L 8.6 / 5.5 166 / L 30.0 \ documented in this encounter Plan of Treatment Not on file documented as of this encounter Visit Diagnoses Not on filedocumented in this encounter
--- OUTSIDE RECORDS SUMMARY | 2025-03-08 13:20 | XMS_ITS | Encounter Summary ---
Author Organization [employer] ([place], [place], [place], [place]) Address [address] [place] [address] Care Team Providers Care Centrifugal Station Operator Name Role Phone Unavailable Primary Care Provider Unavailabl e Encounter Details Date Type Department Care Team (Late st Contact Info) Description 07/22/2021 Transcribed Document [facility] [place] Family Medicine [address] [place] [address] ProviderTg MD [address] [place] [address] Social History Tobacco Use Types Packs/Day Years Used Date Smoking Tobacco: Never Assessed Comments Unknown Sex and Gender Information Value Date Recorded Sex Assigned at Not on file Legal Sex Female 2:39 PM CDT Gender Identity Not on file Sexual Orientation Not on file documented as of this encounter Miscellaneous Notes * Cerner Conversion Note - Tg ProviderMD - 07/22/2021 5:35 PM PUBLIC HEALTH TEACHER Initial Discharge Planning Entered On: 07/22/2021 17:42 EST Performed On: 07/22/2021 17:35 EST by PEDRO MARLOW RN-Road Mixer Operator Initial Assessment I Is the Patient a Caregiver at Home? : No Employment/Vocation : Disabled Sandra Martinez RN-PATIENT CARE BEDSIDE NON-EXEMPT - 07/23/2021 8:44 EST Previously Documented Living Environment : No qualifying data available. PEDRO MARLOW RN-Road Mixer Operator - 07/22/2021 17:35 EST Living Situation : Extended care facility Patient Lives With : Caregiver(s) Emergency Contact #1 : Shawn Solorzano Emergency Contact #1 Emergency Contact #1 Relationship : Son Emergency Contact #2 : Latonia Huitron Cristine Emergency Contact #2 Emergency Contact #2 Relationship : Daughter Martinez, Sandra, RN-PATIENT CARE BEDSIDE NON-EXEMPT - 07/23/2021 8:44 EST Enter Doctors Name : Binh Berg Does Patient have PCP Listed? : Yes PEDRO MARLOW RN-Road Mixer Operator - 07/22/2021 17:35 EST Initial Assessment II Sensory and Motor Deficits : Weakness Current Home Treatments and Equipment : Bedside commode, Shower chair, Walker PEDRO MARLOW RN-Road Mixer Operator - 07/22/2021 17:35 EST Discharge Needs I Anticipated Discharge Date : 07/28/2021 EST Anticipated Discharge To, CM : snf facility Current Home Treatment/Equipment : Current Home Treatment/Equipment No qualifying data available. Documentation Status Complete : Yes PEDRO MARLOW RN-Road Mixer Operator - 07/22/2021 17:35 EST Discharge Needs II Professional Skilled Services : Professional Skilled Services No qualifying data available. Needs Assistance with Transportation : Yes Discharge Options Discussed with Patient : Discharge transportation, Short term rehabilitation Patient Discharge Goal : snf facility PEDRO MARLOW RN-Road Mixer Operator - 07/22/2021 17:35 EST Narrative Note Narrative Note : RAR Moderate ELOS: 2 days HD#1 Adm 06/07 - 06/28/2021 Covid PNA [place] 75 [place]. 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 Consult: Nephrology Patient lives with her 98 year old father Sai [phone] and her son Shawn [phone] in [place]. Her PCP is Dr. Binh Berg. Patient was ADL independent prior to her admission in May. DME as listed. DCP: Anticipate patient will discharge back to [place]. PEDRO MARLOW RN-Road Mixer Operator - 07/22/2021 17:35 EST Electronically signed by Julian Baca Conversion Mathematics Education Professor Cerner at 12/18/2022 9:06 AM CDT documented in this encounter Plan of Treatment Not on file documented as of this encounter Visit Diagnoses Not on filedocumented in this encounter
--- OUTSIDE RECORDS SUMMARY | 2025-03-08 13:20 | XMS_ITS | Encounter Summary ---
Author Organization [employer] ([place], [place], [place], [place]) Address [address] [place] [address] Care Team Providers Care Territory Sales Professional Name Role Phone Unavailable Primary Care Provider Unavailabl e Encounter Details Date Type Department Care Team (Late st Contact Info) Description 07/28/2021 Transcribed Document [facility] [place] [facility] [place] [address] [place] [address] ProviderTg MD [address] [place] [address] Social History Tobacco Use Types Packs/Day Years Used Date Smoking Tobacco: Never Assessed Comments Unknown Sex and Gender Information Value Date Recorded Sex Assigned at Not on file Legal Sex Female 2:39 PM CDT Gender Identity Not on file Sexual Orientation Not on file documented as of this encounter Miscellaneous Notes * Cerner Conversion Note - Tg ProviderMD - 07/28/2021 3:16 PM INDUSTRIAL PAINTER On Going Discharge Planning Entered On: 07/28/2021 15:23 EST Performed On: 07/28/2021 15:16 EST by PEDRO MARLOW RN-Boiler HelperMechanical Integrity Specialist Progress Note Discharge Arrangements : Patient Post-Acute Information Patient Name: SUDHA TIMMONS Gender: Female : [birth year] Age: 75 Years Joannaaspreji Referral(s): Service: Organization: Business Address: Phone Number: [facility], [facility] [address] [place], [address] Discharge Options Discussed with Patient : Discharge transportation, Short term rehabilitation Barriers to Discharge Identified : Clinical Condition of Patient Barriers to Discharge Unresolved : Clinical Condition of Patient Patient Discharge Goal : FDC facility Patient Offered Choice/Affiliations Explained : Yes Is the Patient Meeting Medical Necessity : Yes Physician Agreeable to Move Forward with D/C Plan? : Yes Did you Attend Multidisciplinary Rounds? : Yes PEDRO MARLOW, RN-Boiler Helper - 07/28/2021 15:16 EST Narrative Progress Note Narrative Progress Note : RAR Moderate ELOS: 2 days HD#7 Adm 06/07 - 06/28/2021 Covid PNA PE 75 [place] toxicity. 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 Consult: Nephrology 07/23 Hugo Cath Placed 07/23 1st HD DCP: Back to [facility] on Wednesday, 07/29. Transportation by [employer]/stretcher at [id number]. Patient's son Shawn in agreement with the plan. Historical Progress Note : RAR Moderate ELOS: 2 days HD# Adm 06/07 - 06/28/2021 Covid PNA PE 75 [place] toxicity. 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 Consult: Nephrology 07/23 Hugo Cath Placed 07/23 1st HD Nephrology Plan: Discontinue HD access as [place] Torres level normal at 0.8. Continues to have AMS; acute encephalopathy on top of chronic bipolar dementia. DCP: CM spoke with patient's son Shawn [phone] and he is in agreement with her returing to [facility] but would like to see her closer to her baseline before she goes. ordered Psych consult also. REGINO spoke with rian Rayo at [facility] and patient can return at discharge. PEDRO MARLOW RN-Boiler Helper - 07/25/21 13:14:58 RAR Moderate ELOS: 2 days HD#2 Adm 06/07 - 06/28/2021 Covid PNA PE 75 [place] toxicity. 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 Consult: Nephrology 07/23 Hugo Cath Placed 07/23 1st HD DCP: Anticipate patient will discharge back to [facility]. PEDRO MARLOW RN-Boiler Helper - 07/23/21 17:40:30 RAR Moderate ELOS: 2 days HD#1 Adm 06/07 - 06/28/2021 Covid PNA PE 75 [place] toxicity. 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 Consult: Nephrology Patient lives with her 98 year old father Sai [phone] and her son Shawn [phone] in [place]. Her PCP is Dr. Binh Berg. Patient was ADL independent prior to her admission in May. DME as listed. DCP: Anticipate patient will discharge back to [facility]. PEDRO MARLOW RN-Boiler Helper - 07/22/21 17:42:24 PEDRO MARLOW RN-Boiler Helper - 07/28/2021 15:16 EST Electronically signed by Julian Baca Conversion Electrical Power Station Technician Cerner at 12/18/2022 9:10 AM CDT documented in this encounter Plan of Treatment Not on file documented as of this encounter Visit Diagnoses Not on filedocumented in this encounter
--- OUTSIDE RECORDS SUMMARY | 2025-03-08 13:20 | XMS_ITS | Encounter Summary ---
Author Organization [employer] ([place], [place], [place], [place]) Address [address] [place] [address] Care Team Providers Care Telegraph Service Rater Name Role Phone Unavailable Primary Care Provider Unavailabl e Encounter Details Date Type Department Care Team (Late st Contact Info) Description 07/22/2021 Transcribed Document [facility] [place] [address] [place] [address] ProviderTg MD [address] [place] [address] Social History Tobacco Use Types Packs/Day Years Used Date Smoking Tobacco: Never Assessed Comments Unknown Sex and Gender Information Value Date Recorded Sex Assigned at Not on file Legal Sex Female 2:39 PM CDT Gender Identity Not on file Sexual Orientation Not on file documented as of this encounter Miscellaneous Notes * Cerner Conversion Note - Historical ProviderMD - 07/22/2021 9:25 AM HOME CARE ASSISTANT Consult Phone Call Documentation Entered On: 07/22/2021 9:58 EST Performed On: 07/22/2021 9:25 EST by Marcela Agosto [facility] Phone Call for Consults Consult Phone Call/Page Attempt : First call Marcela Agosto [facility] - 07/22/2021 9:58 EST documented in this encounter Plan of Treatment Not on file documented as of this encounter Visit Diagnoses Not on filedocumented in this encounter
--- OUTSIDE RECORDS SUMMARY | 2025-03-08 13:20 | XMS_ITS | Encounter Summary ---
Author Organization [employer] ([place], [place], [place], [place]) Address [address] [place] [address] Care Team Providers Care Forest Worker Name Role Phone Unavailable Primary Care Provider Unavailabl e Encounter Details Date Type Department Care Team (Late st Contact Info) Description 07/29/2021 Transcribed Document [facility] [place] Family Medicine [address] [place] [address] ProviderTg MD [address] [place] [address] Social History Tobacco Use Types Packs/Day Years Used Date Smoking Tobacco: Never Assessed Comments Unknown Sex and Gender Information Value Date Recorded Sex Assigned at Not on file Legal Sex Female 2:39 PM CDT Gender Identity Not on file Sexual Orientation Not on file documented as of this encounter Miscellaneous Notes * Cerner Conversion Note - Historical ProviderMD - 07/29/2021 5:00 AM FREIGHT BOOKER Chart Check - Review Order Profile Entered On: 07/29/2021 5:28 EST Performed On: 07/29/2021 5:00 EST by LEONIE MCGUIRE RN Chart Check Powerplans Initiated/Discontinued as Appropriate : Yes All Active Orders Reviewed : Yes LEONIE MCGUIRE RN - 07/29/2021 5:28 EST documented in this encounter Plan of Treatment Not on file documented as of this encounter Visit Diagnoses Not on filedocumented in this encounter
--- OUTSIDE RECORDS SUMMARY | 2025-03-08 13:20 | XMS_ITS | Encounter Summary ---
Author Organization [employer] ([place], [place], [place], [place]) Address [address] [place] [address] Care Team Providers Care Pigment Weigher Name Role Phone Unavailable Primary Care Provider Unavailabl e Encounter Details Date Type Department Care Team (Late st Contact Info) Description 07/29/2021 Transcribed Document [facility] [place] Family Medicine [address] [place] [address] ProviderTg MD [address] [place] [address] Social History Tobacco Use Types Packs/Day Years Used Date Smoking Tobacco: Never Assessed Comments Unknown Sex and Gender Information Value Date Recorded Sex Assigned at Not on file Legal Sex Female 2:39 PM CDT Gender Identity Not on file Sexual Orientation Not on file documented as of this encounter Miscellaneous Notes * Cerner Conversion Note - Historical ProviderMD - 07/29/2021 2:00 AM MERCHANT TAILOR Makeup Sales Consultant Details Entered On: 07/29/2021 3:41 EST Performed On: 07/29/2021 2:00 EST by LEONIE MCGUIRE RN Order Details Transport Mode Order Detail : Stretcher/Gurney Isolation Precautions Order Detail : Standard Precautions Order Detail : N/A IV Order Detail : 1 Oxygen Order Detail : 0 Nurse Collect Order Detail : 0 Lift/Transfer : Maximal assist Central Line Order Detail : Yes Room Service : Not Appropriate Arterial Line : No Patient Needs Meds Crushed/Liquid : Yes Meds Administered Via Tube : No LEONIE MCGUIRE RN - 07/29/2021 3:40 EST documented in this encounter Plan of Treatment Not on file documented as of this encounter Visit Diagnoses Not on filedocumented in this encounter
--- OUTSIDE RECORDS SUMMARY | 2025-03-08 13:20 | XMS_ITS | Encounter Summary ---
Author Organization [employer] ([place], [place], [place], [place]) Address [address] [place] [address] Care Team Providers Care Movie Theater Manager Name Role Phone Unavailable Primary Care Provider Unavailabl e Encounter Details Date Type Department Care Team (Late st Contact Info) Description 07/22/2021 Transcribed Document [facility] [place] Family Medicine [address] [place] [address] ProviderTg MD [address] [place] [address] Social History Tobacco Use Types Packs/Day Years Used Date Smoking Tobacco: Never Assessed Comments Unknown Sex and Gender Information Value Date Recorded Sex Assigned at Not on file Legal Sex Female 2:39 PM CDT Gender Identity Not on file Sexual Orientation Not on file documented as of this encounter Miscellaneous Notes * Cerner Conversion Note - Tg ProviderMD - 07/22/2021 1:48 PM LEAD MAN OVER ALL DIES IN PATTERN SHOP Patient: SUDHA TIMMONS Age: 75 Years Sex: Female : 1945 Subjective Date of Service: 07/22/2021 13:48:17 seen and examined altered, tremors no family bedside lithium level 2.7 this [facility] Vital Signs T: 37.1 ??C TMIN: 36.8 ??C TMAX: 37.1 ??C HR: 76(Monitored) RR: 20 BP: 144/70 SpO2: 97% HT: 172.72 cm WT: 113.18 kg BMI: 37.9 Oxygen Settings (Last) Oxygen Therapy Mode: Room air (07/22/21 08:38:00) Intake & Output Totals Last 24 Hours (7a-7a) Input Total: 2420.25 mL Output Total: 0 mL Balance: 2420.25 mL Physical Exam General: No acute distress, Alert, confusion, tearful. Eye: Normal conjunctiva. HENT: Normocephalic, Normal hearing, Oral mucosa is moist. Neck: no JVD Respiratory: RA, non labored Cardiovascular: Normal rate, Regular rhythm Gastrointestinal: Soft, Non-tender, Non-distended, Normal bowel sounds, obese Musculoskeletal: no deformity Integumentary: Warm, Dry, Intact. Neurologic: Alert, not oriented, confused Psychiatric: tearful Assessment/Plan Altered mental status 2/2 lithium toxicity -history of bipolar disorder on lithium, depression, anxiety -CT brain without contrast showed no acute intracranial abnormalities -PT/OT/ST -lithium level trending down, discussed w Dr. Kennedy--IVF, trend, no need for dialysis -May benefit from neuro/psych consult a.m. if no improvement pyuria -add rocephin -cx, old cx reviewed with veliz sensitive e.coli Hypotension with hx of hypertension, resolved macrocytic anemia -hx of B12 anemia (high this admit 1999) -suspect dilutional and about at baseline. Non hodgkins lymphoma GERD -home meds await pharmacy to reconcile meds discussed w Dr. Kennedy recent covid 19 infection 06/19 dispo: admitted with suspected lithium toxicity. appears lithium was stopped last admission, and Depakote started. I would likely pursue this route again as she had improvement on Depakote and it appears she is not tolerating the lithium. Additionally, she had PE and developed acute blood loss anemia and we recommended PCP decide on restarting anticoagulation. She has borderline anemia at this time which appears chronic, will defer to PCP or partners during this admission based on her clinical course to decide on OAC. At this time, the patient is too confused to restart meds--please do med rec once mentation improves. Further per clinical improvement. VTE Prophylaxis - Medical Sequential Compression Device Start: 07/21/21 21:11:00 EST, Bilateral, Length: Knee High, While patient is in bed, Continuous Order (LAURE COVINGTON) Medications Ativan, 2 mg= 1 mL, IV Push, Q5Min, PRN Dextrose 50% injection, 25 Gram= 50 [...] mg= 0.25 mL, IntraVENous, Q6H, PRN Rocephin Sodium Chloride 0.9% intravenous solution 1,000 mL, 1000 mL, IntraVENous Tylenol, 650 mg= 2 Tab, Oral, Q4H, PRN Tylenol, 650 mg= 2 Tab, Oral, Q4H, PRN Zofran, 4 mg= 2 mL, IV Push, Q4H, PRN Lab Results Test Name Test Result Date/Time Sodium Level 144 mmol/L 07/22/2021 03:28 EST Sodium Level 141 mmol/L 07/21/2021 14:40 EST Potassium Level 4.5 mmol/L 07/22/2021 03:28 EST Potassium Level 4.9 mmol/L 07/21/2021 14:40 EST Chloride Level 118 mmol/L (High) 07/22/2021 03:28 EST Chloride Level 113 mmol/L (High) 07/21/2021 14:40 EST Carbon Dioxide Level 21 mmol/L 07/22/2021 03:28 EST Carbon Dioxide Level 23 mmol/L 07/21/2021 14:40 EST Anion Gap 10 07/22/2021 03:28 EST Anion Gap 10 07/21/2021 14:40 EST Glucose Level 63 mg/dL (Low) 07/22/2021 03:28 EST Glucose Level 74 mg/dL 07/21/2021 14:40 EST Blood Urea Nitrogen 13 mg/dL 07/22/2021 03:28 EST Blood Urea Nitrogen 16 mg/dL 07/21/2021 14:40 EST Creatinine Level 0.80 mg/dL 07/22/2021 03:28 EST Creatinine Level 1.00 mg/dL 07/21/2021 14:40 EST eGFR >60 mL/min/1.73m2 07/22/2021 03:28 EST eGFR >60 mL/min/1.73m2 07/21/2021 14:40 EST eGFR NonAfrican >60 mL/min/1.73m2 07/22/2021 03:28 EST eGFR NonAfrican 54 mL/min/1.73m2 (Low) 07/21/2021 14:40 EST Bun/Creatinine 16.2 07/22/2021 03:28 EST Bun/Creatinine 16.0 07/21/2021 14:40 EST Calcium Level 7.6 mg/dL (Low) 07/22/2021 03:28 EST Calcium Level 8.6 mg/dL 07/21/2021 14:40 EST Protein Total 4.0 Gram/dL (Low) 07/22/2021 03:28 EST Protein Total 4.7 Gram/dL (Low) 07/21/2021 14:40 EST Albumin Level 2.3 Gram/dL (Low) 07/22/2021 03:28 EST Albumin Level 2.9 Gram/dL (Low) 07/21/2021 14:40 EST Globulin 1.7 Gram/dL 07/22/2021 03:28 EST Globulin 1.8 Gram/dL 07/21/2021 14:40 EST A/G Ratio 1.4 07/22/2021 03:28 EST A/G Ratio 1.6 07/21/2021 14:40 EST Bilirubin Total 0.7 mg/dL 07/22/2021 03:28 EST Bilirubin Total 0.5 mg/dL 07/21/2021 14:40 EST Alk Phos 123 Units/Liter 07/22/2021 03:28 EST Alk Phos 148 Units/Liter (High) 07/21/2021 14:40 EST AST 18 Units/Liter 07/22/2021 03:28 EST AST 19 Units/Liter 07/21/2021 14:40 EST ALT 17 Units/Liter 07/22/2021 03:28 EST ALT 19 Units/Liter 07/21/2021 14:40 EST Magnesium Level 1.6 mg/dL 07/21/2021 14:40 EST Ammonia Level <10.0 uMol/L (Low) 07/21/2021 14:40 EST Device Comment 1 Protocols Followed 07/22/2021 05:09 EST Glucose POC2 119 mg/dL (High) 07/22/2021 05:09 EST Lactic Acid Level 0.5 mmol/L 07/21/2021 14:40 EST Folate Level >20 ng/mL 07/22/2021 03:28 EST Vitamin B12 Level >2000 pg/mL (High) 07/22/2021 03:28 EST CK 188 Units/Liter 07/21/2021 14:40 EST Troponin I Ultra 0.019 ng/mL 07/21/2021 14:40 EST ProBNP 727 pg/mL (High) 07/21/2021 14:40 EST WBC 6.6 K/uL 07/22/2021 03:28 EST WBC 9.0 K/uL 07/21/2021 14:40 EST RBC 2.21 Million/uL (Low) 07/22/2021 03:28 EST RBC 2.58 Million/uL (Low) 07/21/2021 14:40 EST Hgb 7.9 g/dL (Low) 07/22/2021 03:28 EST Hgb 9.3 g/dL (Low) 07/21/2021 14:40 EST Hct 24.6 % (Low) 07/22/2021 03:28 EST Hct 29.2 % (Low) 07/21/2021 14:40 EST MCV 111.3 fL (High) 07/22/2021 03:28 EST MCV 113.2 fL (High) 07/21/2021 14:40 EST MCH 35.7 pg (High) 07/22/2021 03:28 EST MCH 36.0 pg (High) 07/21/2021 14:40 EST MCHC 32.1 Gram/dL (Low) 07/22/2021 03:28 EST MCHC 31.8 Gram/dL (Low) 07/21/2021 14:40 EST Platelet Count 191 K/uL 07/22/2021 03:28 EST Platelet Count 246 K/uL 07/21/2021 14:40 EST MPV 10.5 fL 07/22/2021 03:28 EST MPV 10.8 fL 07/21/2021 14:40 EST RDW 20.5 % (High) 07/22/2021 03:28 EST RDW 21.2 % (High) 07/21/2021 14:40 EST Neut % 67.0 % 07/22/2021 03:28 EST Neut % 77.0 % (High) 07/21/2021 14:40 EST Neut # 4.41 K/uL 07/22/2021 03:28 EST Neut # 6.92 K/uL (High) 07/21/2021 14:40 EST Lymph % 12.3 % (Low) 07/22/2021 03:28 EST Lymph % 7.8 % (Low) 07/21/2021 14:40 EST Lymph # 0.81 x10(3)/uL (Low) 07/22/2021 03:28 EST Lymph # 0.70 x10(3)/uL (Low) 07/21/2021 14:40 EST Mclennan % 14.6 % (High) 07/22/2021 03:28 EST Mclennan % 10.3 % (High) 07/21/2021 14:40 EST Mclennan # 0.96 K/uL 07/22/2021 03:28 EST Mclennan # 0.93 K/uL 07/21/2021 14:40 EST Eos % 5.5 % 07/22/2021 03:28 EST Eos % 4.4 % 07/21/2021 14:40 EST Eos # 0.36 x10(3)/uL 07/22/2021 03:28 EST Eos # 0.40 x10(3)/uL 07/21/2021 14:40 EST Baso % 0.3 % 07/22/2021 03:28 EST Baso % 0.2 % 07/21/2021 14:40 EST Baso # 0.02 x10(3)/uL 07/22/2021 03:28 EST Baso # 0.02 x10(3)/uL 07/21/2021 14:40 EST nRBC 0.030 (High) 07/21/2021 14:40 EST RBC Morphology Abnormal 07/22/2021 03:28 EST RBC Morphology Abnormal 07/21/2021 14:40 EST Anisocytosis 2+ (Abnormal) 07/22/2021 03:28 EST Anisocytosis 2+ (Abnormal) 07/21/2021 14:40 EST Poikilocytosis 1+ (Abnormal) 07/22/2021 03:28 EST Poikilocytosis 1+ (Abnormal) 07/21/2021 14:40 EST Hypochromia 1+ (Abnormal) 07/22/2021 03:28 EST Anastacia Cells occ 07/22/2021 03:28 EST Anastacia Cells 1+ (Abnormal) 07/21/2021 14:40 EST Teardrop Cells 1+ (Abnormal) 07/22/2021 03:28 EST Acanthocytes occ 07/22/2021 03:28 EST Acanthocytes 1+ (Abnormal) 07/21/2021 14:40 EST Ovalocytes 1+ (Abnormal) 07/22/2021 03:28 EST Ovalocytes 1+ (Abnormal) 07/21/2021 14:40 EST Microcytosis 1+ (Abnormal) 07/22/2021 03:28 EST Microcytosis 1+ (Abnormal) 07/21/2021 14:40 EST Macrocytosis 1+ (Abnormal) 07/21/2021 14:[address] Estimate Adequate 07/22/2021 03:[address] Estimate Adequate 07/21/2021 14:40 EST Slide Review Technologist 07/21/2021 14:40 EST IG# 0.02 x10(3)/uL 07/22/2021 03:28 EST IG# 0.03 x10(3)/uL 07/21/2021 14:40 EST IG% 0.30 % 07/22/2021 03:28 EST IG% 0.30 % 07/21/2021 14:40 EST Urine Type. U CleanCatch 07/21/2021 18:38 EST Urine Color YELLOW2 07/21/2021 18:38 EST Urine Appearance CLEAR2 07/21/2021 18:38 EST Urine Specific [place] 1.012 07/21/2021 18:38 EST Urine pH Dipstick [...] if Indicated Not Indicated 07/21/2021 18:38 EST Procalcitonin <0.25 ng/mL 07/21/2021 14:40 EST TSH 1.320 mcInt Units/mL 07/21/2021 14:40 EST Acetaminophen Level 3.2 mcg/mL (Low) 07/21/2021 16:59 EST [place] Level 2.7 mmol/L (Critical) 07/22/2021 09:54 EST [place] Level see image 07/22/2021 03:28 EST [place] Level 3.3 mmol/L 07/21/2021 14:40 EST Valproic Acid Level 62.0 mcg/mL 07/21/2021 14:51 EST Salicylate <1.7 mg/dL (Low) 07/21/2021 16:59 EST UDS pH 7.0 07/21/2021 18:38 EST UDS Amp NEG3 07/21/2021 18:38 EST UDS Stephy NEG3 07/21/2021 18:38 EST UDS Benzo NEG3 07/21/2021 18:38 EST UDS Javi NEG3 07/21/2021 18:38 EST UDS Opi POS2 (Abnormal) 07/21/2021 18:38 EST UDS PCP NEG3 07/21/2021 18:38 EST UDS TCA NEG3 07/21/2021 18:38 EST UDS THC NEG3 07/21/2021 18:38 EST Alcohol <3 mg/dL 07/21/2021 14:40 EST %Alcohol <0.00 07/21/2021 14:40 EST Influenza A Negative2 07/21/2021 14:40 EST Influenza B NEGATIVE2 07/21/2021 14:40 EST SARS-CoV-2 (COVID19 PCR) Negative2 07/21/2021 14:40 EST Electronically signed by [facility] Conversion Event Designer Cerner at 12/18/2022 9:10 AM CDT documented in this encounter Plan of Treatment Not on file documented as of this encounter Visit Diagnoses Not on filedocumented in this encounter
--- OUTSIDE RECORDS SUMMARY | 2025-03-08 13:20 | XMS_ITS | Encounter Summary ---
Author Organization [employer] ([place], [place], [place], [place]) Address [address] [place] [address] Care Team Providers Care Service Bar Cashier Name Role Phone Unavailable Primary Care Provider Unavailabl e Encounter Details Date Type Department Care Team (Late st Contact Info) Description 07/29/2021 Transcribed Document [facility] [place] [address] [place] [address] ProviderTg MD [address] [place] [address] Social History Tobacco Use Types Packs/Day Years Used Date Smoking Tobacco: Never Assessed Comments Unknown Sex and Gender Information Value Date Recorded Sex Assigned at Not on file Legal Sex Female 2:39 PM CDT Gender Identity Not on file Sexual Orientation Not on file documented as of this encounter Miscellaneous Notes * Cerner Conversion Note - Historical ProviderMD - 07/29/2021 11:51 AM RELAY REPAIRER Discharge Summary, PT Entered On: 07/29/2021 11:52 EST Performed On: 07/29/2021 11:51 EST by Everardo Martinez PHYSICAL THERAPIST NON-EXEMPT Discharge Summary Discharge Summary Provider Notified : Nursing Reason for Discharge : Discharge order Discharged to, Therapy : Unit, assisted Discharge Summary Comment, PT : As of 07/28: Functional Mobility Mobility Grid Bed Roll Left : Rehab Maximal assistance x2 Bed Roll Right : Rehab Maximal assistance x2 Bed Scooting : Rehab Total assistance x2 Bed Mobility Scooting Device : Cloth under pad, Rails Gait Training/Assessment, PT Weight Bearing Status Maintained : Yes Weight Bearing Status : Full Gait Assistance Level : Unable to assess/activity not appropriate Everardo Martinez PHYSICAL THERAPIST NON-EXEMPT - 07/29/2021 11:51 EST Jail Goals Mobility/Bed Mobility LTG PT Grid Goal #1 Activity : Supine to sit Assist : Assist, moderate Date to Meet : 08/07/2021 EST Goal Status : Not met Everardo Martinez PHYSICAL THERAPIST NON-EXEMPT - 07/29/2021 11:51 EST documented in this encounter Plan of Treatment Not on file documented as of this encounter Visit Diagnoses Not on filedocumented in this encounter
--- OUTSIDE RECORDS SUMMARY | 2025-03-08 13:20 | XMS_ITS | Encounter Summary ---
Author Organization [employer] ([place], [place], [place], [place]) Address [address] [place] [address] Care Team Providers Care Strap Cutter Name Role Phone Unavailable Primary Care Provider Unavailabl e Encounter Details Date Type Department Care Team (Late st Contact Info) Description 07/29/2021 Transcribed Document [facility] [place] Family Medicine [address] [place] [address] ProviderTg MD [address] [place] [address] Social History Tobacco Use Types Packs/Day Years Used Date Smoking Tobacco: Never Assessed Comments Unknown Sex and Gender Information Value Date Recorded Sex Assigned at Not on file Legal Sex Female 2:39 PM CDT Gender Identity Not on file Sexual Orientation Not on file documented as of this encounter Miscellaneous Notes * Cerner Conversion Note - Historical ProviderMD - 07/29/2021 1:10 PM CAFE AIDE Stroke/Warfarin Instructions Entered On: 07/29/2021 13:10 EST Performed On: 07/29/2021 13:10 EST by SHARON MATOS RN Stroke/Warfarin Instructions Stroke/TIA Discharge Ins : N/A Warfarin Discharge Ins : N/A SHARON MATOS RN - 07/29/2021 13:10 EST Electronically signed by [facility] Conversion Central Stores Attendant Cerner at 12/18/2022 9:12 AM CDT documented in this encounter Plan of Treatment Not on file documented as of this encounter Visit Diagnoses Not on filedocumented in this encounter
--- OUTSIDE RECORDS SUMMARY | 2025-03-08 13:20 | XMS_ITS | Encounter Summary ---
Author Organization [employer] ([place], [place], [place], [place]) Address [address] [place] [address] Care Team Providers Care Enrobing Machine Corder Name Role Phone Unavailable Primary Care Provider Unavailabl e Encounter Details Date Type Department Care Team (Late st Contact Info) Description 07/22/2021 Transcribed Document [facility] [place] Family Medicine [address] [place] [address] ProviderTg MD [address] [place] [address] Social History Tobacco Use Types Packs/Day Years Used Date Smoking Tobacco: Never Assessed Comments Unknown Sex and Gender Information Value Date Recorded Sex Assigned at Not on file Legal Sex Female 2:39 PM CDT Gender Identity Not on file Sexual Orientation Not on file documented as of this encounter Miscellaneous Notes * Cerner Conversion Note - Historical ProviderMD - 07/22/2021 4:42 AM REFRIGERATION LEAD ED Event Note Entered On: 07/22/2021 4:42 EST Performed On: 07/22/2021 4:42 EST by CATHY OCONNELL RN ED Event Note ED Event Date/Time : 07/22/2021 4:42 EST ED Event Location : Assigned room ED Event Details : Nursing assessment additional narrative ED Description of Event : report given to DUNCAN Pittman. no questions. CATHY OCONNELL RN - 07/22/2021 4:42 EST documented in this encounter Plan of Treatment Not on file documented as of this encounter Visit Diagnoses Not on filedocumented in this encounter
--- OUTSIDE RECORDS SUMMARY | 2025-03-08 13:20 | XMS_ITS ---
Author Organization [facility] Care Team Providers Care Prototype Technician Name Role Phone Quiana Sanchez (Radha) Unavailable Unavail able Alvaro Coronel Unavailable Unavailable Allergies and adverse reactions Code CodeSystem Substance Reaction Severity StartDate Concern Status natural rubber Moderate 03/10/2022 activ e 7258 RXNORM Naproxen Itching of skin (code- 545116864, SNOMED CT) Moderate 03/10/2022 active latex Skin reaction - finding (code- 107620459, SNOMED CT) Moderate 03/10/2022 active 2670 RXNORM Codeine Systemic vascul itis (code- 27248111, SNOMED CT) Moderate 03/10/2022 active Care Team Name Role Address Phone Organization Dates Alvaro Coronel PCP [address], [place], [address], [place] (Office): [facility] 03/10/2022 - 10/20/2022 Quiana Prabhakar) [place], [address], [place] (Office): : [facility] 03/10/2022 - 10/20/2022 Goals Section Goals Description Status Target Date Goal is slow gradual weight loss, 1-3#/month, closer to IBWR, with average po of 50% or greater. Intact, non-reddened skin. Free from s/s of dehydration. Active 02/07/2023 Sari will increase level of mobility by walking 10ft with 1 assist/ rolling walker - through the next review date. Active 12/08/2022 Sari will remain free from s kin breakdown due to incontinence and brief use - through the review date. Active 12/08/2022 Sari and Family's wishes will be honored Active 12/08/2022 Sari and family will verbali ze/communicate and understand the needed discharge goals to be met for successful discharge. - by the review date. Active 12/08/2022 Sari will be free from s/sx of complications of cardiac problems - through the review date. Active 12/08/2022 Sari will be free of falls - through the review date. Active 12/08/2022 Sari will be free of infecti on, pain or bleeding in the oral cavity - through review date. Active 12/08/2022 Sari will be free of symptom s of dehydration and maintain moist mucous membranes, good skin turgor. - thru next review Active 12/08/2022 Sari will have fewer episode s of threats/manipulation of staff/weekly - by review date. Active 12/08/2022 Sari will improve current le alicja of function in: Dressing, Toilet Use and Personal Hygiene - through the review date. Active 12/08/2022 Sari will maintain lab value s within acceptable parameters per MD - through review date. Active 12/08/2022 Sari will not show a decline in psychosocial well-being or experience adverse effects due to COVID restrictions - through next care review. H Active 12/08/2022 Sari will remain free of jacinta g related complications, including movement disorder, discomfort, hypotension, gait disturbance, constipation/impaction or cognitive/behavioral impairment - through review date. Active 12/08/2022 Sari will show evidence of a djustment to prison by eating adequately at meals, attending facility activities daily- after quarantine - through the review date. Active 12/08/2022 Sari will verbalize adequate relief of pain or ability to cope with incompletely relieved pain - through the review date. Active 12/08/2022 Immunizations Immunization Status Vaccine Details Vaccine Code CodeSystem Date Notes Influenza completed Influenza, high-dose, split virus, quadrivalent, injectable, preservative free lotNumber: [id number] expiry: 02/26/2023 Mfg: sanfoi past unli Given 0.5 ml Right Deltoid intramuscularly 197 CVX created date: 2 consent date: 2 administe red date: 2 Educated by ROSALBA Arias on 05/27/2022 TB 1 Step Mantoux (PPD) completed tuberculin skin test; unspecified formulation lotNumber: [id number] expiry: 12/19/2022 Mfg: sanofi pasteur limited Given 0.1 ml Left Forearm subcutaneously 98 CVX created date: 2 consent date: 2 administe red date: 2 Educated by abbey on 03/10/2022 TB 2 Step Mantoux Skin Test completed tuberculin skin test; unspecified formulation lotNumber: [id number] expiry: 12/19/2022 Mfg: sanofi pasteur limited Given 0.1 ml Left Forearm intradermally Step 1 of Multi-step 98 CVX created date: 2 consent date: 2 administe red date: 2 PNEUMOVAX 23 completed pneumococcal polysaccharide vaccine, 23 valent lotNumber: [id number] expiry: 03/30/2023 Mfg: [employer] Given 0.5 ml Left Deltoid intramuscularly 33 CVX created date: 2 consent date: 2 administe red date: 2 pneumo 20 given 1st dose Moderna COVID-19 Vaccine completed SARS-COV-2 (COVID-19) vaccine, mRNA, spike protein, LNP, preservative free, 100 mcg/0.5mL dose or 50 mcg/0.25mL dose 207 CVX created date: 2 consent date: 2 administe red date: 1 [facility]ie[facility] 2nd dose Moderna COVID-19 Vaccine completed SARS-COV-2 (COVID-19) vaccine, mRNA, spike protein, LNP, preservative free, 100 mcg/0.5mL dose or 50 mcg/0.25mL dose 207 CVX created date: 2 administe red date: 1 [facility] Mental Status Section Date Assessment Total Score Description 10/20/2022 BIMS 15 cognitively int act CAM 0 No delirium ind icated PHQ-9 00 10/14/2022 BIMS 15 cognitively int act CAM 0 No delirium ind icated PHQ-9 00 Problems Problem # Description Date of onset Resolved Date Code CodeSystem Concern Status 1 CHRONIC OBSTRUCTIVE PULMONARY DISEASE WITH (ACUTE) LOWER RESPIRATORY INFECTION 08/30/191959872047572 SNOMED CT active 2 CHRONIC PAIN SYNDROME 06/16/[address] active 3 BODY MASS INDEX [BMI] 26.0-26.9, ADULT 05/09/[address] active 4 CHRONIC OBSTRUCTIVE PULMONARY DISEASE, UNSPECIFIED 05/09/[address] active 5 LYMPHEDEMA, NOT ELSEWHERE CLASSIFIED 05/09/[address] active 6 PARESTHESIA OF SKIN 05/09/[address] active 7 UNSPECIFIED MOOD [AFFECTIVE] DISORDER 05/09/[address] active 8 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 DEBILITY 03/10/[address] active 9 ANEMIA IN NEOPLASTIC DISEASE 03/10/[address] active 10 CANDIDAL CYSTITIS AND URETHRITIS 03/10/20 22 03/10/[address] completed 11 CHRONIC OBSTRUCTIVE PULMONARY DISEASE WITH (ACUTE) LOWER RESPIRATORY INFECTION 03/10/20 22 03/10/[address] completed 12 CYSTITIS, UNSPECIFIED WITHOUT HEMATURIA 03/10/[address] active 13 DEPRESSION, UNSPECIFIED 03/10/[address] active 14 DYSURIA 03/10/[address] active 15 ESSENTIAL (PRIMARY) HYPERTENSION 03/10/[address] active 16 IRON DEFICIENCY ANEMIA SECONDARY TO BLOOD LOSS (CHRONIC) 03/10/20 22 03/10/[address] completed 17 KLEBSIELLA PNEUMONIAE [K. PNEUMONIAE] THE CAUSE OF DISEASES CLASSIFIED ELSEWHERE 03/10/[address] active 18 METHICILLIN RESISTANT STAPHYLOCOCCUS AUREUS INFECTION, UNSPECIFIED SITE 03/10/[address] active 19 NEED FOR ASSISTANCE WITH PERSONAL CARE 03/10/[address] active 20 NON-HODGKIN LYMPHOMA, UNSPECIFIED, LYMPH NODES OF MULTIPLE SITES 03/10/[address] active 21 NONSPECIFIC URETHRITIS 03/10/[address] active 22 OTHER REDUCED MOBILITY 03/10/[address] active 23 OTHER SPECIFIED ANXIETY DISORDERS 03/10/[address] active 24 POST COVID-19 CONDITION, UNSPECIFIED 03/10/20 22 U09.9 ICD-10-CM active 25 PRESSURE ULCER OF [place], STAGE 2 03/10/[address] active 26 PRESSURE ULCER OF [place], UNSPECIFIED STAGE 03/10/20 22 03/10/[address] completed 27 PROTEUS (MIRABILIS) (MORGANII) THE CAUSE OF DISEASES CLASSIFIED ELSEWHERE 03/10/[address] active 28 RESPIRATORY FAILURE, UNSPECIFIED WITH HYPOXIA 03/10/[address] active 29 UNSPECIFIED MOOD [AFFECTIVE] DISORDER 03/10/20 22 03/10/[address] completed Reason for Referral No Reasons for Referral Entered Social History Social History Observation Description Start Date End Date Code Code System Current Smoking Status Tobacco smoking consumption unknown 143081766 SNOMED CT Sex Assigned At Female 1945 28343-1 [facility] Gender Identity Vital Signs Code Code System Vitals Name Values and Units Timing Information 95321-0 [facility] Pain Level Value=0.0 10/20/2022 8462-4 [facility] Blood Pressure-Diastolic Value=76 Un its=mmHg 10/19/2022 8480-6 [facility] Blood Pressure-Systolic Rmowy=541 Un its=mmHg 10/19/2022 9279-1 [facility] Respiratory Rate Value=18.0 Units=/m in 10/16/2022 8310-5 [facility] Body Temperature Value=97.9 Units= F 10/16/2022 8867-4 [facility] Heart rate Vvqwv=291.0 Units=/min 10/16/2022 59191-5 [facility] O2 % BldC Oximetry Value=97.0 Units= % 10/16/2022 68605-0 [facility] Weight Qtlgs=557.2 Units=Lbs 10/2022 8302-2 [facility] Height Value=69.0 Units=Inches 03/11/2022
--- OUTSIDE RECORDS SUMMARY | 2025-03-08 13:20 | XMS_ITS | Encounter Summary ---
Author Organization [email or web address] ([place], [place], [place], [place]) Address [address] [place] [address] Care Team Providers Care Flight Operations Dispatch Clerk Name Role Phone Unavailable Primary Care Provider Unavailabl e Encounter Details Date Type Department Care Team (Late st Contact Info) Description 07/22/2021 Transcribed Document [facility] Family Medicine [address] [place] [address] ProviderTg MD [address] [place] [address] Social History Tobacco Use Types Packs/Day Years Used Date Smoking Tobacco: Never Assessed Comments Unknown Sex and Gender Information Value Date Recorded Sex Assigned at Not on file Legal Sex Female 2:39 PM CDT Gender Identity Not on file Sexual Orientation Not on file documented as of this encounter Miscellaneous Notes * [employer]ner Conversion Note - Tg ProviderMD - 07/22/2021 5:42 PM SENIOR PAYROLL MANAGER On Going Discharge Planning Entered On: 07/22/2021 17:42 EST Performed On: 07/22/2021 17:42 EST by PEDRO MARLOW RN-Recreation Activities CoordinatorMat Sewer Progress Note Discharge Arrangements : Patient Post-Acute [...] Condition of Patient Patient Discharge Goal : [facility]PC facility PEDRO MARLOW RN-Recreation Activities Coordinator - 07/22/2021 17:42 EST Narrative Progress Note Narrative Progress Note : RAR Moderate ELOS: 2 days HD#1 Adm 06/07 - 06/28/2021 Covid PNA PE 75 [facility] [place] [facility] [place] [facility] [place]. 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 Consult: Nephrology Patient lives with her 98 year old father Sai [phone] and her son Shawn [phone] in [place]. Her PCP is Dr. Binh Berg. Patient was ADL independent prior to her admission in May. DME as listed. DCP: Anticipate patient will discharge back to [facility]. PEDRO MARLOW, RN-Recreation Activities Coordinator - 07/22/2021 17:42 EST Electronically signed by Keven [facility] Conversion Track Template Maker Cerner at 12/18/2022 9:07 AM CDT documented in this encounter Plan of Treatment Not on file documented as of this encounter Visit Diagnoses Not on filedocumented in this encounter
--- OUTSIDE RECORDS SUMMARY | 2025-03-08 13:20 | XMS_ITS | Encounter Summary ---
Author Organization [employer] ([place], [place], [place], [place]) Address [address] [place] [address] Care Team Providers Care Director Trade Name Role Phone Unavailable Primary Care Provider Unavailabl e Encounter Details Date Type Department Care Team (Late st Contact Info) Description 07/29/2021 Transcribed Document [facility] [place] [address] [place] [address] ProviderTg MD [address], [place] [id number] Social History Tobacco Use Types Packs/Day Years Used Date Smoking Tobacco: Never Assessed Comments Unknown Sex and Gender Information Value Date Recorded Sex Assigned at Not on file Legal Sex Female 2:39 PM CDT Gender Identity Not on file Sexual Orientation Not on file documented as of this encounter Miscellaneous Notes * Cerner Conversion Note - Historical ProviderMD - 07/29/2021 4:24 PM ADULT MANAGER Nursing Discharge Summary Entered On: 07/29/2021 16:26 EST Performed On: 07/29/2021 16:24 EST by SHARON MATOS gravel machine operator Documentation Discharge Date/Time : 07/29/2021 16:15 EST Patient Disposition, General : Discharge Discharge To : Rehabilitation unit/facility Mode Of Departure, General Discharge : Other: caliber stretcher trasnport IV Discontinued : Yes Personal Belongings With Patient : Yes Prescriptions Given to Patient : Other: in packet Education Comment : pt unable to participate in education Discharge, Comment : Report called to Patricia SONG at [facility] at 1330. SHARON MATOS RN - 07/29/2021 16:24 EST Electronically signed by Keven [facility] Conversion Tractor Sweeper Operator Cerner at 12/18/2022 9:11 AM CDT documented in this encounter Plan of Treatment Not on file documented as of this encounter Visit Diagnoses Not on filedocumented in this encounter
--- OUTSIDE RECORDS SUMMARY | 2025-03-08 13:20 | XMS_ITS | Encounter Summary ---
Author Organization [employer] ([place], [place], [place], [place]) Address [address] [place] [address] Care Team Providers Care Media Developer Name Role Phone Unavailable Primary Care Provider Unavailabl e Encounter Details Date Type Department Care Team (Late st Contact Info) Description 07/26/2021 Transcribed Document [facility] [place] [address] [place] [address] ProviderTg MD [address] [place] [address] Social History Tobacco Use Types Packs/Day Years Used Date Smoking Tobacco: Never Assessed Comments Unknown Sex and Gender Information Value Date Recorded Sex Assigned at Not on file Legal Sex Female 2:39 PM CDT Gender Identity Not on file Sexual Orientation Not on file documented as of this encounter Miscellaneous Notes * [employer]ner Conversion Note - Historical ProviderMD - 07/26/2021 2:00 AM CREDIT CONTROL ADMINISTRATOR Floral Designer Salesperson Details Entered On: 07/26/2021 3:06 EST Performed On: 07/26/2021 2:00 EST by Kimberlyn Kwong RN Order Details Transport Mode Order Detail : Bed (including specialty) Order Detail : N/A IV Order Detail : 0 Oxygen Order Detail : 0 Nurse Collect Order Detail : 1 Lift/Transfer : Maximal assist Central Line Order Detail : Yes Room Service : Not Appropriate Arterial Line : No Patient Needs Meds Crushed/Liquid : No Kimberlyn Kwong RN - 07/26/2021 3:05 EST documented in this encounter Plan of Treatment Not on file documented as of this encounter Visit Diagnoses Not on filedocumented in this encounter
--- OUTSIDE RECORDS SUMMARY | 2025-03-08 13:20 | XMS_ITS | Encounter Summary ---
Author Organization [employer] ([place], [place], [place], [place]) Address [address] [place] [address] Care Team Providers Care Senior Support Analyst Name Role Phone Unavailable Primary Care Provider Unavailabl e Encounter Details Date Type Department Care Team (Late st Contact Info) Description 07/26/[address] [facility] [place] Family Medicine [address] [place] [address] ProviderTg MD [address] [place] [address] Social History Tobacco Use Types Packs/Day Years Used Date Smoking Tobacco: Never Assessed Comments Unknown Sex and Gender Information Value Date Recorded Sex Assigned at Not on file Legal Sex Female 2:39 PM CDT Gender Identity Not on file Sexual Orientation Not on file documented as of this encounter Miscellaneous Notes * Cerner Conversion Note - Historical ProviderMD - 07/26/2021 5:00 AM PRN OCCUPATIONAL THERAPIST Chart Check - Review Order Profile Entered On: 07/26/2021 3:06 EST Performed On: 07/26/2021 5:00 EST by Kimberlyn Kwong RN Chart Check Powerplans Initiated/Discontinued as Appropriate : Yes All Active Orders Reviewed : Yes Kimberlyn Kwong RN - 07/26/2021 3:06 EST Electronically signed by Keven [facility] Conversion Hydrographic Surveyor Cerner at 12/18/2022 9:14 AM CDT documented in this encounter Plan of Treatment Not on file documented as of this encounter Visit Diagnoses Not on filedocumented in this encounter
--- OUTSIDE RECORDS SUMMARY | 2025-03-08 13:20 | XMS_ITS | Encounter Summary ---
Author Organization [email or web address] ([place], [place], [place], [place]) Address [address] [place] [address] Care Team Providers Care Inspector Balance Wheel Motion Name Role Phone Unavailable Primary Care Provider Unavailabl e Encounter Details Date Type Department Care Team (Late st Contact Info) Description 07/26/2021 Transcribed Document [facility] [facility] [place] [address] [place] [address] ProviderTg MD [address] [place] [address] Social History Tobacco Use Types Packs/Day Years Used Date Smoking Tobacco: Never Assessed Comments Unknown Sex and Gender Information Value Date Recorded Sex Assigned at Not on file Legal Sex Female 2:39 PM CDT Gender Identity Not on file Sexual Orientation Not on file documented as of this encounter Miscellaneous Notes * Cerner Conversion Note - Tg ProviderMD - 07/26/2021 12:53 PM SENSOR SPECIALIST Patient: SUDHA TIMMONS Age: 75 years Sex: Female : 1945 Associated Diagnoses: None Author: HARPREET STOVER DO Subjective Ms. Timmons was seen by me around noon today, she denies cp or sob, no abdp ain or n/v. she tells me that it is june of 2011 and that shei s 89 yo. she does know correct . no family present. Health Status Current medications: Medications (32) Active Scheduled: (10) #NaCl 0.9% *FLUSH* inj 10 mL 10 mL, IV Push, Q12H aspirin EC 81 mg tab 81 mg 1 Tab, Oral, Daily atorvastatin 40 mg tab 40 mg 1 Tab, Oral, At Bedtime cefTRIAXone 2 Gram, IV Piggyback, [id number] cyanocobalamin 1,000 mcg tab 1,000 mcg 1 [...] 6.25 mg 0.25 mL, IntraVENous, Q6H Objective Intake and Output Intake & Output Totals Last 24 Hours (7a-7a) Intake (19 Events) Continuous Infusions (1500 mL) Medications (70 mL) Oral Intake (360 mL) Output (3 Events) Hamlin Catheter (1650 mL) Input Total: 1930 mL Output Total: 1650 mL Balance: 280 mL VS/Measurements Vitals Signs (last 24 hrs) Last Charted Minimum Maximum Temp H 99.8 (JUL 26 10:00) 98.4 (JUL 26 05:19) 99.2 (JUL 25 18:13) Mon HR 87 (JUL 26 10:00) 87 (JUL 26 10:00) 105 (JUL 25 22:41) Resp Rate 16 (JUL 26 05:19) 16 (JUL 25 22:41) 18 (JUL 25 14:00) SBP 128 (JUL 26 10:00) 109 (JUL 26 05:19) H 144 (JUL 25 20:11) DBP L 50 (JUL 26 10:00) L 46 (JUL 26 05:19) 82 (JUL 25 20:11) MAP 76 (JUL 26 10:00) 62 (JUL 26 05:19) 111 (JUL 25 20:11) SpO2 95 (JUL 26:) 94 (JUL 25 20:11) 95 (JUL 25 14:00) General: alert, lying in bed watching tv. . Eye: Pupils are equal, round and reactive to light, Normal conjunctiva. HENT: Normocephalic, Normal hearing. Respiratory: Lungs are clear to auscultation, Respirations are non-labored, Breath sounds are equal. Cardiovascular: Normal rate, Regular rhythm, No murmur, No edema. Gastrointestinal: Soft, Non-tender, Non-distended, Normal bowel sounds. Integumentary: Warm, Dry. Neurologic: Alert, tells me that it is june 2011 and that she is 89 yo. she does know correct . . Psychiatric: Cooperative, Appropriate mood & affect. Results Review General results Interpretation: JUL 26 10:46 144 H 116 L 5 / H 119 L 3.4 22 0.70 \ JUL 26 10:46 \ L 7.8 / 4.6 L 145 / L 24.5 \ Labs (Last four charted values) WBC 4.6 (NOV ) 6.4 (NOV ) 7.8 (NOV 25) 8.7 (NOV 24) HB L 7.8 (NOV ) L 8.0 (NOV ) L 8.7 (NOV 25) L 8.5 (NOV 24) HCT L 24.5 (NOV ) L 24.9 (NOV 26) L 26.4 (NOV 25) L 27.1 (NOV 24) Plt L 145 (NOV ) L 149 (NOV ) 177 (NOV 25) 220 (NOV 24) Na 144 (NOV ) 144 (NOV ) 145 (NOV ) H 152 (NOV ) K L 3.4 (NOV ) 3.8 (NOV ) 3.9 (NOV ) 4.2 (NOV 24) Cl H 116 (NOV ) H 116 (NOV ) H 115 (NOV ) H 127 (NOV ) CO2 22 (NOV ) 24 (NOV 26) 25 (NOV 25) 22 (NOV 24) BUN L 5 (NOV ) L 4 (NOV ) L 3 (NOV ) 7 (NOV 24) Cr 0.70 (NOV ) 0.90 (NOV 26) 0.90 (NOV 25) 0.70 (NOV 24) Glu R H 119 (NOV ) H 123 (NOV ) H 145 (NOV ) H 126 (NOV 24) Ca 8.4 (NOV ) 8.7 (NOV ) 9.4 (NOV 25) 8.8 (NOV 24) Lactic 0.5 (NOV 22) AST 14 (NOV 26) 17 (NOV 25) 18 (NOV 23) 19 (NOV 22) ALT 19 (NOV 26) 20 (NOV 25) 17 (NOV 23) 19 (NOV 22) ALK P 136 (NOV ) H 150 (NOV 25) 123 (NOV 23) H 148 (NOV 22) T Bili 0.5 (NOV ) 0.8 (NOV 25) 0.7 (NOV 23) 0.5 (NOV 22) PTN L 4.5 (NOV ) L 4.8 (NOV 25) L 4.0 (NOV 23) L 4.7 (NOV 22) ALB L 2.7 (NOV ) L 2.9 (NOV 25) L 2.3 (JUL 22) L 2.9 (JUL [...] continue depakote and seroquel - psych consulted enterococcus faecalius UTI - stop rocephin, change to macrobid - urine cx from [...] hold OAC - monitor - hx of pe in may requiring severe bleeding non hodgkins lymphoma - noted GERd - contineu daily protonix d/w rn no family present time spent: 26 min discharge goals: stop rocephin, change to macrobid given uti sensitivities. monitor diarrhea. mentation appears slightly improved? no family present. anticipated discharge disposition: back to snf likely wednesday Harpreet Dobbins Hospitalist pager- [phone] documented in this encounter Plan of Treatment Not on file documented as of this encounter Visit Diagnoses Not on filedocumented in this encounter
--- OUTSIDE RECORDS SUMMARY | 2025-03-08 13:20 | XMS_ITS | Encounter Summary ---
Author Organization [employer] ([place], [place], [place], [place]) Address [address] [place] [address] Care Team Providers Care Gift Shop Manager Name Role Phone Unavailable Primary Care Provider Unavailabl e Encounter Details Date Type Department Care Team (Late st Contact Info) Description 07/29/2021 Transcribed Document [facility] [place] Family Medicine [address] [place] [address] ProviderTg MD [address] [place] [address] Social History Tobacco Use Types Packs/Day Years Used Date Smoking Tobacco: Never Assessed Comments Unknown Sex and Gender Information Value Date Recorded Sex Assigned at Not on file Legal Sex Female 2:39 PM CDT Gender Identity Not on file Sexual Orientation Not on file documented as of this encounter Miscellaneous Notes * [employer] Conversion Note - Tg Jones MD - 07/29/2021 1:10 PM ADMINISTRATIVE SUPERVISOR Patient Education Materials Follows:[facility] [place] Toxicity [place] toxicity, which is also called lithium poisoning, is the condition of having too much lithium in the blood. [place] is a medicine that is used to treat bipolar disorder. [place] toxicity can be life-threatening. What are the [...] Follow these instructions at home: ??? Take ppfr-bha-qnpfwhr and prescription medicines only as told by your health care provider. ??? Drink enough fluid to keep your urine pale yellow. ??? If your toxicity was a result of an intentional overdose, work with a mental health senior care manager (psychiatrist or counselor). How is this prevented? [place] toxicity is preventable. To keep it from [...] toxicity after you receive treatment. Summary ??? [place] toxicity, which is also called lithium poisoning, [...] provider. Document Revised: 12/08/2019 Document Reviewed: 08/26/2018 [employer] Patient Education ? 2020 [employer]. Obstetrics and Gynecology Urinary Tract Infection, Adult A urinary tract [...] this condition includes: ??? Antibiotic medicine. ??? Kayo-hoa-xqdqouv medicines to treat discomfort. ??? Drinking enough [...] these instructions at home: Medicines ??? Take fmiz-iuu-nitqshe and prescription medicines only as told by [...] Your symptoms do not get better after 1?2 days. ??? Your symptoms go away and [...] provider. Document Revised: 08/03/2019 Document Reviewed: 02/23/2019 [employer] Patient Education ? 2020 [employer] documented in this encounter Plan of Treatment Not on file documented as of this encounter Visit Diagnoses Not on filedocumented in this encounter
--- OUTSIDE RECORDS SUMMARY | 2025-03-08 13:20 | XMS_ITS | Encounter Summary ---
Author Organization [employer] ([place], [place], [place], [place]) Address [address] [place] [address] Care Team Providers Care Data Report Analyst Name Role Phone Unavailable Primary Care Provider Unavailabl e Encounter Details Date Type Department Care Team (Late st Contact Info) Description 07/22/2021 Transcribed Document [facility] [place] Family Medicine [address] [place] [address] ProviderTg MD [address] [place] [address] Social History Tobacco Use Types Packs/Day Years Used Date Smoking Tobacco: Never Assessed Comments Unknown Sex and Gender Information Value Date Recorded Sex Assigned at Not on file Legal Sex Female 2:39 PM CDT Gender Identity Not on file Sexual Orientation Not on file documented as of this encounter Miscellaneous Notes * Cerner Conversion Note - Historical ProviderMD - 07/22/2021 9:39 AM SHOT HOLE SHOOTER UM Authorization Entered On: 07/22/2021 9:39 EST Performed On: 07/22/2021 9:39 EST by Elizabeth Krause Rn-Utilization Review Primary Insurance Authorization Authorization and Policy Numbers : Insurance 1 Health Plan: MEDICARE Policy Number: [id number] Authorization Number: Insurance 2 Health Plan: [employer] [facility] Policy Number: [id number] Authorization Number: Insurance Primary Name : MEDICARE Authorized Service Begin Date-Primary : 07/21/2021 EST Historical Authorization Comments-Primary : No Authorization Comments Found Elizabeth Krause Rn-Utilization Review - 07/22/2021 9:39 EST Electronically signed by Keven [facility] Conversion Csr Technician Cerner at 12/18/2022 9:08 AM CDT documented in this encounter Plan of Treatment Not on file documented as of this encounter Visit Diagnoses Not on filedocumented in this encounter
--- OUTSIDE RECORDS SUMMARY | 2025-03-08 13:20 | XMS_ITS | Encounter Summary ---
Author Organization [employer] ([place], [place], [place], [place]) Address [address] [place] [address] Care Team Providers Care Workers' Compensation Claims Supervisor Name Role Phone Unavailable Primary Care Provider Unavailabl e Encounter Details Date Type Department Care Team (Late st Contact Info) Description 07/29/[address] [facility] [place] Family Medicine [address] [place] [address] ProviderTg MD [address] [place] [address] Social History Tobacco Use Types Packs/Day Years Used Date Smoking Tobacco: Never Assessed Comments Unknown Sex and Gender Information Value Date Recorded Sex Assigned at Not on file Legal Sex Female 2:39 PM CDT Gender Identity Not on file Sexual Orientation Not on file documented as of this encounter Miscellaneous Notes * Cerner Conversion Note - Tg Jones MD - 07/29/2021 12:46 PM NAPHTHA WASHING SYSTEM OPERATOR Patient: SUDHA TIMMONS Age: 75 years Sex: Female : 1945 Associated Diagnoses: None Author: FLORENCE KENNEDY MD Results Review Subjective 07/29: Patient was seen and examined, resting in bed, kidney function normal Health Status Allergies: Allergic Reactions (Selected) Severity Not Documented Anaprox- Rash. Codeine- No reactions were documented. Latex- Itching. Naproxen- No reactions were documented., Allergies (4) Active Reaction Anaprox Rash codeine None Documented Latex Itching naproxen None Documented Current medications: (Selected) Inpatient Medications Ordered Ativan: 2 mg, IV Push, Q5Min, PRN: Seizures Colace: 100 mg, Oral, BID, PRN: Constipation Core.125 mg, Oral, BID Depakote: 250 mg, Oral, [...] Nebulized Inhalation, RT_Q4H, PRN: Shortness of Breath Macrobid: 100 mg, Oral, BID MiraLax: 17 Gram, Oral, Daily, PRN: Constipation Olmitz 5 mg-325 mg oral tablet: 1 Tab, Oral, BID, PRN: Pain (Moderate 4-6) Normal Saline Flush: 10 mL, IV Push, Q12H Normal Saline Flush: 10 mL, IV Push, See Comment, PRN: IV Use Phenergan: 6.25 mg, IntraVENous, Q6H, PRN: Nausea QUEtiapine: 300 mg, Oral, At Bedtime Tylenol: 650 mg, Oral, Q4H, PRN: Fever Tylenol: 650 mg, Oral, Q4H, PRN: Pain (Mild 1-3) Zofran: 4 mg, IV Push, Q4H, PRN: Nausea aspirin: 81 mg, Oral, Daily atorvastatin: 40 mg, Oral, At Bedtime bisacodyl: 10 mg, Rectal, Daily, PRN: Constipation cyanocobalamin: 1,000 mcg, Oral, Daily glucagon: 1 mg, IntraMuscular, Q15Min, PRN: Other (See Comment) glucose 4 g oral tablet, chewable: 16 Gram, 4 Tab, Chew, Q15Min, PRN: Other (See Comment) glucose 40% oral gel: 15 Gram, 37.5 mL, Oral, Q15Min, PRN: Other (See Comment) lisinopril: 2.5 mg, Oral, Daily melatonin: 5 mg, Oral, At Bedtime, PRN: Insomnia pantoprazole: 40 mg, Oral, Daily Prescriptions Prescribed Coreg 3.125 mg oral tablet: 1 Tab, Oral, BID, 60 Tab, 0 Refill(s) Macrobid 100 mg oral capsule: 1 Cap, Oral, BID, for 5 Day(s), 10 Cap, 0 Refill(s) Olmitz 5 mg-325 mg oral tablet: 1 Tab, Oral, BID, PRN: for pain, 10 Tab, 0 Refill(s) Documented Medications Documented Aspirin [...] reconstitution: 17 Gram, Oral, Daily, 0 Refill(s), Medications (30) Active Scheduled: (10) #NaCl 0.9% *FLUSH* inj 10 mL 10 mL, IV Push, Q12H aspirin EC 81 mg tab 81 mg 1 Tab, Oral, Daily atorvastatin 40 mg tab 40 mg 1 Tab, Oral, At Bedtime carvedilol 3.125 mg tab 3.125 mg 1 Tab, Oral, BID cyanocobalamin 1,000 mcg tab 1,000 mcg 1 Tab, Oral, Daily divalproex 250 mg EC tab 250 mg 1 Tab, Oral, BID lisinopril 5 mg tab 2.5 mg 0.5 Tab, Oral, Daily nitrofurantoin macro-mono 100 mg cap 100 mg 1 Cap, Oral, BID pantoprazole EC 40 mg tab 40 mg 1 Tab, Oral, Daily QUEtiapine 100 mg tab 300 mg 3 Tab, Oral, At Bedtime Continuous: (0) PRN: (20) #NaCl 0.9% *FLUSH* inj 10 mL 10 [...] inj 6.25 mg 0.25 mL, IntraVENous, Q6H Problem list: Medical Hip pain, right / SNOMED CT 0569678311 / Confirmed At risk for sleep apnea / IMO 52159783 / Confirmed At risk for violence / IMO 05761442 / Confirmed Concussion / SNOMED CT 9820225599 / Confirmed concussion with loss of memory+ Disease caused by 2019 novel coronavirus / SNOMED CT 0223175406 / Confirmed Problem added by a rule: [id number]. Fall / SNOMED CT 2563454 / Confirmed HTN (hypertension) / SNOMED CT 6907267306 / Confirmed Depression / SNOMED CT 1169064892 / Confirmed Numbness and tingling / SNOMED CT 5949325736 / Confirmed numbness and tingling right thigh area to toes Osteoarthritis / SNOMED CT 8184821522 / Confirmed Pain / SNOMED CT 95916242 / Confirmed right buttocks pain Leg pain, right / SNOMED CT 665899823 / Confirmed sleep apnea / SNOMED CT 836828037 / Confirmed Insomnia / SNOMED CT 161463563 / Confirmed Tremor / SNOMED CT 09705036 / Confirmed, Active Problems (17) At risk [...] Last Charted Minimum Maximum Temp 97.4 (JUL 29:) 97.4 (JUL 29:) 98.3 (JUL 28 14:00) Mon HR 98 (JUL 29:) 97 (JUL 28 21:44) 116 (JUL 29 01:08) Resp Rate 18 (JUL 29:) 18 (JUL 28 21:44) 18 (JUL 28 21:44) SBP 134 (JUL 29:30) 107 (JUL 28 21:44) H 144 (JUL 28 18:00) DBP 69 (JUL 29:) 62 (JUL 29 05:16) 69 (JUL 29 09:30) MAP 85 (JUL 29 09:) 76 (JUL 28 21:44) 114 (JUL 28 18:00) SpO2 95 (JUL 29 09:) 95 (JUL 29 09:) 95 (JUL 29 09:) General: No acute distress. Eye: Pupils are equal, [...] deficits, Cranial Nerves II-XII are grossly intact. Electrolytes(BMP) Results (Current Encounter/Past 24 Hours) Sodium Level 146 mmol/L 07/29/2021 06:59 Potassium Level 4.9 mmol/L 07/29/2021 06:59 Chloride Level 120 mmol/L MS 07/29/2021 06:59 Carbon Dioxide Level 20 mmol/L LOW 07/29/2021 06:59 Anion Gap 11 07/29/2021 06:59 Blood Urea Nitrogen 6 mg/dL LOW 07/29/2021 06:59 Glucose Level 108 mg/dL MS 07/29/2021 06:59 Calcium Level 9.4 mg/dL 07/29/2021 06:59 Creatinine Level 0.60 mg/dL 07/29/2021 06:59 Blood Gases (Current Encounter/Past 24 Hours) No Blood Gas Results Found (Past 24 Hours) JUL 29 05:38 146 H 120 L 6 / H 108 4.9 L 20 0.60 \ JUL 29 05:38 \ L 7.5 / 5.4 174 / L 23.6 \ No Radiology Results Found Assessment 1-questionable acute lithium toxicity? Responded nicely to IV fluids with levels down to 2.3 but the patient received 1 treatment of HD on 07/23 2-mild hypernatremia , please encourage oral intake, NA is 146 today 3-mild non anion gap metabolic acidosis, resolved 4-multifactorial toxic and metabolic encephalopathy/psychiatric illness ,neurology follows and she had extensive work-up in May Will follow along with you Plan as above Florence Kennedy MD Electronically signed by [facility] Conversion Office Services Clerk Cerner at 12/18/2022 9:14 AM CDT documented in this encounter Plan of Treatment Not on file documented as of this encounter Visit Diagnoses Not on filedocumented in this encounter
--- OUTSIDE RECORDS SUMMARY | 2025-03-08 13:20 | XMS_ITS | Encounter Summary ---
Author Organization [employer] ([place], [place], [place], [place]) Address [address] [place] [address] Care Team Providers Care Inside Sales Professional Name Role Phone Unavailable Primary Care Provider Unavailabl e Encounter Details Date Type Department Care Team (Late st Contact Info) Description 07/22/2021 Transcribed Document [facility] [place] Family Medicine [address] [place] [address] ProviderTg MD [address] [place] [address] Social History Tobacco Use Types Packs/Day Years Used Date Smoking Tobacco: Never Assessed Comments Unknown Sex and Gender Information Value Date Recorded Sex Assigned at Not on file Legal Sex Female 2:39 PM CDT Gender Identity Not on file Sexual Orientation Not on file documented as of this encounter Miscellaneous Notes * Cerner Conversion Note - Historical ProviderMD - 07/22/2021 8:45 AM ELECTRONIC IMAGING SYSTEM OPERATOR Attempt to Treat, PT Entered On: 07/22/2021 10:38 EST Performed On: 07/22/2021 8:45 EST by JACQUELYN LOYD PT Attempt to Treat Unable to Treat Due To : Patient on hold Inability to Treat Comment : pt is too out of it for therapy today per Janay Martins Will check back tomorrow Notification : Discussed with JACQUELYN Schuster RN, PT - 07/22/2021 10:35 EST Electronically signed by Keven [facility] Conversion Corporate Accounting Manager Seng at 12/18/2022 9:10 AM CDT documented in this encounter Plan of Treatment Not on file documented as of this encounter Visit Diagnoses Not on filedocumented in this encounter
--- OUTSIDE RECORDS SUMMARY | 2025-03-08 13:20 | XMS_ITS | Encounter Summary ---
Author Organization [employer] ([place], [place], [place], [place]) Address [address] [place] [address] Care Team Providers Care Gold Charmer Name Role Phone Unavailable Primary Care Provider Unavailabl e Encounter Details Date Type Department Care Team (Late st Contact Info) Description 07/26/2021 Transcribed Document [facility] [place] [address] [place] [address] ProviderTg MD [address] [place] [address] Social History Tobacco Use Types Packs/Day Years Used Date Smoking Tobacco: Never Assessed Comments Unknown Sex and Gender Information Value Date Recorded Sex Assigned at Not on file Legal Sex Female 2:39 PM CDT Gender Identity Not on file Sexual Orientation Not on file documented as of this encounter Miscellaneous Notes * Cerner Conversion Note - Historical ProviderMD - 07/26/2021 1:03 PM ENVIRONMENTAL JOURNALIST Event Note Entered On: 07/26/2021 13:03 EST Performed On: 07/26/2021 13:03 EST by BRENNA PULIDO RN Event Note Event Date/Time : 07/26/2021 13:03 EST Description of Event : Has had 2 extra large loose stools today BRENNA PULIDO RN - 07/26/2021 13:03 EST Electronically signed by Keven [facility] Conversion Finance Advisor Cerguevara at 12/18/2022 9:16 AM CDT documented in this encounter Plan of Treatment Not on file documented as of this encounter Visit Diagnoses Not on filedocumented in this encounter
--- OUTSIDE RECORDS SUMMARY | 2025-03-08 13:20 | XMS_ITS | Encounter Summary ---
Author Organization [employer] ([place], [place], [place], [place]) Address [address] [place] [address] Care Team Providers Care Clinical Assistant Name Role Phone Unavailable Primary Care Provider Unavailabl e Encounter Details Date Type Department Care Team (Late st Contact Info) Description 07/29/2021 Transcribed Document [facility] [place] [address] [place] [address] ProviderTg MD [address] [place] [address] Social History Tobacco Use Types Packs/Day Years Used Date Smoking Tobacco: Never Assessed Comments Unknown Sex and Gender Information Value Date Recorded Sex Assigned at Not on file Legal Sex Female 2:39 PM CDT Gender Identity Not on file Sexual Orientation Not on file documented as of this encounter Miscellaneous Notes * Cerner Conversion Note - Tg ProviderMD - 07/29/2021 10:49 AM SENIOR TREASURY CONSULTANT Meds to Bed Enrollment Entered On: 07/29/2021 10:49 EST Performed On: 07/29/2021 10:49 EST by Kyree Heaton, LASER CUTTER LEAD Meds to Bed Enrollment Patient Enrollment Decision: : No/do not enroll in meds to bed program Reason for Declining Meds to Bed Program: : Discharge to facility Kyree Heaton, LASER CUTTER LEAD - 07/29/2021 10:49 EST documented in this encounter Plan of Treatment Not on file documented as of this encounter Visit Diagnoses Not on filedocumented in this encounter
--- OUTSIDE RECORDS SUMMARY | 2025-03-08 13:20 | XMS_ITS | Encounter Summary ---
Author Organization [employer] ([place], [place], [place], [place]) Address [address] [place] [address] Care Team Providers Care Bundle Cutter Name Role Phone Unavailable Primary Care Provider Unavailabl e Encounter Details Date Type Department Care Team (Late st Contact Info) Description 07/22/2021 Transcribed Document [facility] [place] Family Medicine [address] [place] [address] ProviderTg MD [address] [place] [address] Social History Tobacco Use Types [...] - Historical ProviderMD - 07/22/2021 8:45 AM SOCIAL MEDIA PROJECT MANAGER Attempt to Treat, OT Entered On: 07/22/2021 11:45 EST Performed On: 07/22/2021 8:45 EST by DUSTIN PINK OTR/Lachelle Attempt to Treat Unable to Treat Due To : Patient on hold Inability to Treat Comment : Hold Per DUNCAN Flores due to pt being too out of it to participate in therapy. Notification : DUSTIN Toth OTR/L - 07/22/2021 11:45 EST Electronically signed by Keven [facility] Conversion Quality Associate Seng at 12/18/2022 9:09 AM CDT documented in this encounter Plan of Treatment Not on file documented as of this encounter Visit Diagnoses Not on filedocumented in this encounter
--- OUTSIDE RECORDS SUMMARY | 2025-03-08 13:20 | XMS_ITS | Encounter Summary ---
Author Organization [employer] ([place], [place], [place], [place]) Address [address] [place] [address] Care Team Providers Care Professional Bondsman Name Role Phone Unavailable Primary Care Provider Unavailabl e Encounter Details Date Type Department Care Team (Late st Contact Info) Description 07/28/2021 Transcribed Document [facility] [place] [address] [place] [address] ProviderTg MD [address] [place] [address] Social History Tobacco Use [...] Note - Tg Jones MD - 07/28/2021 12:51 PM CAMERA TECHNICIAN Patient: SUDHA TIMMONS Age: 75 years Sex: Female : 1945 Associated Diagnoses: None Author: FLORENCE KENNEDY MD Results Review Subjective 07/28: Patient was seen and examined, resting in [...] Colace: 100 mg, Oral, BID, PRN: Constipation Depakote: 250 mg, Oral, BID Dextrose 50% [...] MiraLax: 17 Gram, Oral, Daily, PRN: Constipation Orlando 5 mg-325 mg oral tablet: 1 Tab, [...] Tab, Oral, Daily, 30 Tab, 0 Refill(s) Orlando 5 mg-325 mg oral tablet: 1 Tab, [...] Oral, Daily, 30 Cap, 0 Refill(s), Medications (30) Active Scheduled: (10) #NaCl 0.9% *FLUSH* inj 10 mL 10 mL, IV Push, Q12H aspirin EC 81 mg tab 81 mg 1 Tab, Oral, Daily atorvastatin 40 mg tab 40 mg 1 Tab, Oral, At Bedtime cyanocobalamin 1,000 mcg tab 1,000 mcg 1 [...] Medical Hip pain, right / SNOMED CT 9869200958 / Confirmed At risk for sleep apnea / IMO 19300729 / Confirmed At risk for violence / IMO 20192377 / Confirmed Concussion / SNOMED CT 9209508425 / Confirmed concussion with loss of memory+ Disease caused by 2019 novel coronavirus / SNOMED CT 9922446956 / Confirmed Problem added by a rule: [id number]. Fall / SNOMED CT 9584925 / Confirmed HTN (hypertension) / SNOMED CT 5689800581 / Confirmed Depression / SNOMED CT 9687405293 / Confirmed Numbness and tingling / SNOMED CT 9880044354 / Confirmed numbness and tingling right thigh area to toes Osteoarthritis / SNOMED CT 0291998716 / Confirmed Pain / SNOMED CT 48632332 / Confirmed right buttocks pain Leg pain, right / SNOMED CT 512774462 / Confirmed sleep apnea / SNOMED CT 697454241 / Confirmed Insomnia / SNOMED CT 907939369 / Confirmed Tremor / SNOMED CT 47507147 / Confirmed, Active Problems (17) At risk [...] Charted Minimum Maximum Temp 98.2 (JUL 28 10:) 98.2 (JUL 28:) 98.4 (JUL 27:) Mon HR 101 (JUL 28:) 101 (JUL 28:23) 112 (JUL 27:08) Resp Rate 18 (JUL 28:23) 16 (JUL 27 22:08) 18 (JUL 27 15:00) SBP 121 (JUL 28 10:00) 100 (JUL 27 22:08) 135 (JUL 28 05:23) DBP 63 (JUL 28:00) L 42 (JUL 27:08) 75 (JUL 27:23) MAP 77 (JUL 28 10:00) 62 (JUL 27 22:08) 96 (JUL 27:23) SpO2 97 (JUL 28:23) 97 (JUL 27:08) 99 (NOV 28 15:00) General: No acute distress. Eye: Pupils are [...] deficits, Cranial Nerves II-XII are grossly intact. Electrolytes([facility]) Results (Current Encounter/Past 24 Hours) Sodium Level 147 mmol/L FL 07/28/2021 05:34 Potassium Level 3.7 mmol/L 07/28/2021 05:34 Chloride Level 120 mmol/L FL 07/28/2021 05:34 Carbon Dioxide Level 19 mmol/L LOW 07/28/2021 05:34 Anion Gap 12 07/28/2021 05:34 Blood Urea Nitrogen 4 mg/dL LOW 07/28/2021 05:34 Glucose Level 106 mg/dL 07/28/2021 05:34 Calcium Level 8.8 mg/dL 07/28/2021 05:34 Creatinine Level 0.60 mg/dL 07/28/2021 05:34 Blood Gases (Current Encounter/Past 24 Hours) No Blood Gas Results Found (Past 24 Hours) JUL 28 05:07 H 147 H 120 L 4 / 106 3.7 L 19 0.60 \ JUL 28 05:07 \ L 8.6 / 5.5 166 / L 30.0 \ No Radiology Results Found Assessment 1-questionable acute lithium toxicity? Responded nicely to IV fluids with levels down to 2.3 but the patient received 1 treatment of HD on 07/23 2-mild hypernatremia , please encourage oral intake, will need strict intake and output to rule out nephrogenic DI from lithium, according to the chart urine output is 1900/24 hours 3-mild anion gap metabolic acidosis 4-multifactorial toxic and metabolic encephalopathy/psychiatric illness ,neurology follows and she had extensive work-up in May Please monitor electrolytes on daily basis while inpatient Will follow along with you Plan as above Florence Kennedy MD documented in this encounter Plan of Treatment Not on file documented as of this encounter Visit Diagnoses Not on filedocumented in this encounter
--- OUTSIDE RECORDS SUMMARY | 2025-03-08 13:20 | XMS_ITS | Encounter Summary ---
Author Organization [employer] ([place], [place], [place], [place]) Address [address] [place] [address] Care Team Providers Care Grocery Sacker Name Role Phone Unavailable Primary Care Provider Unavailabl e Encounter Details Date Type Department Care Team (Late st Contact Info) Description 07/27/2021 Transcribed Document [facility] [place] Family Medicine [address] [place] [address] ProviderTg MD [address] [place] [address] Social History Tobacco Use Types Packs/Day Years Used Date Smoking Tobacco: Never Assessed Comments Unknown Sex and Gender Information Value Date Recorded Sex Assigned at Not on file Legal Sex Female 2:39 PM CDT Gender Identity Not on file Sexual Orientation Not on file documented as of this encounter Miscellaneous Notes * Cerner Conversion Note - Tg Jones MD - 07/27/2021 3:18 PM IT INFRASTRUCTURE MANAGER Assessment/Plan Acute metabolic encephalopathy secondary to lithium toxicity. The patient has a history of bipolar disorder, was on lithium. Leggett level was elevated 3.2 to start with. [...] for 4 hours to remove lithium extracorporeally Leggett level is now 1 No further HD required, vascular access REMOVED. We Stopped checking lithium level Thank you for getting [facility] involved in the management of this patient. We will continue to follow up with you closely should in case there is any need for change in plan or therapy. Thank you once again. Subjective Patient was seen and evaluated by bedside, AMS much improved Vital Signs T: 36.9 ??C TMIN: 36.8 ??C TMAX: 37.1 ??C HR: 103(Monitored) RR: 18 BP: 115/63 SpO2: 99% Physical Exam GENERAL APPEARANCE: This is an [...] 17 Gram= 1 Packet, Oral, Daily, PRN Baxter 5 mg-325 mg oral tablet, 1 Tab, [...] Test Result Date/Time Sodium Level 146 mmol/L 07/27/2021 03:38 EST Potassium Level 3.7 mmol/L 07/27/2021 03:38 EST Chloride Level 119 mmol/L (High) 07/27/2021 03:38 EST Carbon Dioxide Level 21 mmol/L 07/27/2021 03:38 EST Anion Gap 10 07/27/2021 03:38 EST Glucose Level 106 mg/dL 07/27/2021 03:38 EST Blood Urea Nitrogen 4 mg/dL (Low) 07/27/2021 03:38 EST Creatinine Level 0.60 mg/dL 07/27/2021 03:38 EST eGFR >60 mL/min/1.73m2 07/27/2021 03:38 EST eGFR NonAfrican >60 mL/min/1.73m2 07/27/2021 03:38 EST Bun/Creatinine 6.7 (Low) 07/27/2021 03:38 EST Calcium Level 8.5 mg/dL 07/27/2021 03:38 EST Magnesium Level 1.3 mg/dL (Low) 07/27/2021 03:38 EST Device Comment 1 Notified Nurse RBV 07/27/2021 11:53 EST Device Comment 1 Notified Nurse RBV 07/27/2021 05:26 EST Device Comment 1 Notified Nurse RBV 07/26/2021 20:19 EST Device Comment 1 Notified Nurse RBV 07/26/2021 16:02 EST Glucose POC2 95 mg/dL 07/27/2021 11:53 EST Glucose POC2 107 mg/dL 07/27/2021 05:26 EST Glucose POC2 93 mg/dL 07/26/2021 20:19 EST Glucose POC2 94 mg/dL 07/26/2021 16:02 EST WBC 4.8 K/uL 07/27/2021 03:38 EST RBC 2.21 Million/uL (Low) 07/27/2021 03:38 EST Hgb 7.9 g/dL (Low) 07/27/2021 03:38 EST Hct 24.7 % (Low) 07/27/2021 03:38 EST MCV 111.8 fL (High) 07/27/2021 03:38 EST MCH 35.7 pg (High) 07/27/2021 03:38 EST MCHC 32.0 Gram/dL (Low) 07/27/2021 03:38 EST Platelet Count 135 K/uL (Low) 07/27/2021 03:38 EST MPV 10.9 fL 07/27/2021 03:38 EST RDW 19.5 % (High) 07/27/2021 03:38 EST Neutrophil Percent Man 57 % 07/27/2021 03:38 EST Lymph Percent Man 25 % 07/27/2021 03:[address] [facility] Percent Man 9 % (High) 07/27/2021 03:38 EST Eos Percent Man 9 % (High) 07/27/2021 03:38 EST Baso Percent Man 0 % 07/27/2021 03:38 EST RBC Morphology Abnormal 07/27/2021 03:38 EST Anisocytosis 2+ (Abnormal) 07/27/2021 03:38 EST Poikilocytosis 1+ (Abnormal) 07/27/2021 03:38 EST Hypochromia 1+ (Abnormal) 07/27/2021 03:38 EST Anastacia Cells 1+ (Abnormal) 07/27/2021 03:38 EST Ovalocytes 1+ (Abnormal) 07/27/2021 03:[address] Estimate Decreased (Abnormal) 07/27/2021 03:38 EST Electronically signed by Interface, [facility] Conversion Patrol Supervisor Cerner at 12/18/2022 9:10 AM CDT documented in this encounter Plan of Treatment Not on file documented as of this encounter Visit Diagnoses Not on filedocumented in this encounter
--- OUTSIDE RECORDS SUMMARY | 2025-03-08 13:21 | XMS_ITS | Encounter Summary ---
Author Organization [employer] ([place], [place], [place], [place]) Address [address] [place] [address] Care Team Providers Care Link Machine Operator Name Role Phone Unavailable Primary Care Provider Unavailabl e Encounter Details Date Type Department Care Team (Late st Contact Info) Description 07/26/2021 Transcribed Document [facility] [address] [place] [address] ProviderTg MD [address] [place] [address] Social History Tobacco Use Types Packs/Day Years Used Date Smoking Tobacco: Never Assessed Comments Unknown Sex and Gender Information Value Date Recorded Sex Assigned at Not on file Legal Sex Female 2:39 PM CDT Gender Identity Not on file Sexual Orientation Not on file documented as of this encounter Miscellaneous Notes * Cerner Conversion Note - Tg Jones MD - 07/26/2021 8:40 AM IRRIGATION MANAGER Assessment/Plan Acute metabolic encephalopathy secondary to lithium toxicity. The patient has a history of bipolar disorder, was on lithium. Edmund level was elevated 3.2 to start with. [...] for 4 hours to remove lithium extracorporeally Edmund level is now 1 No further HD [...] and evaluated by bedside Vital Signs T: 36.9 ??C TMIN: 36.9 ??C TMAX: 37.3 ??C HR: 88(Monitored) RR: 16 BP: 109/46 SpO2: 95% Physical Exam GENERAL APPEARANCE: This is an [...] 17 Gram= 1 Packet, Oral, Daily, PRN Clayton 5 mg-325 mg oral tablet, 1 Tab, [...] Date/Time Device Comment 1 Notified Nurse RBV 07/26/2021 05:24 EST Device Comment 1 Notified Nurse RBV 07/25/2021 20:24 EST Device Comment 1 Notified Nurse RBV 07/25/2021 11:24 EST Glucose POC2 95 mg/dL 07/26/2021 05:24 EST Glucose POC2 97 mg/dL 07/25/2021 20:24 EST Glucose POC2 87 mg/dL 07/25/2021 16:11 EST Glucose POC2 113 mg/dL (High) 07/25/2021 11:24 EST Edmund Level 0.7 mmol/L 07/26/2021 05:19 EST Edmund Level 0.8 mmol/L 07/25/2021 21:55 EST Edmund Level 0.8 mmol/L 07/25/2021 15:53 EST Edmund Level 0.8 mmol/L 07/25/2021 09:59 EST Electronically signed by Keven, [facility] Conversion Slot Machine Department Floorperson Cerner at 12/18/2022 9:09 AM CDT documented in this encounter Plan of Treatment Not on file documented as of this encounter Visit Diagnoses Not on filedocumented in this encounter
== END 2025-03-08 23:59 | disposition home or self-care (01) ==
LOC: RAD 13:12
PROVIDERS: PCP Emergency Medicine; Visit Provider Physician Assistant
DX: M85.832 Other specified disorders of bone density and structure, left forearm (principal); M25.812 Other specified joint disorders, left shoulder; M19.022 Primary osteoarthritis, left elbow; G56.02 Carpal tunnel syndrome, left upper limb; G56.22 Lesion of ulnar nerve, left upper limb
CPT/HCPCS: 73030; 73080; 73110

== ENCOUNTER 2025-04-19 03:15 | Outpatient (CLI) | payer MEDICARE, BC, SELFPAY ==
--- OUTSIDE RECORDS SUMMARY | 2025-04-19 03:20 | XMS_ITS | Clinical Summary ---
Author Organization [facility] Address [address] [place] [address] Phone Care Team Providers Care Pcb Designer Name Role Phone Unavailable Unavailable Conditions or Problems No information available. Medications No information available. Medications Administered No information available. Allergies, Adverse Reactions, Alerts No information available. Results No information available. Plan of Care No information available. Procedures No information available. Vital Signs No information available. Immunizations No information available. Advance Directives No information available.
--- OUTSIDE RECORDS SUMMARY | 2025-04-19 03:20 | XMS_ITS | Clinical Summary ---
Author Organization [facility] Address [address] [place] [address] Phone Care Team Providers Care Sephora Operations Consultant Name Role Phone Unavailable Primary Care [...] patient's age to complete this topic Insurance [facility] [place] [address]
[2025-04-19 03:59] LABS: Microscopic, Urine URINE MICROSCOPIC (MICROSCOPIC)
[2025-04-19 04:05] LABS: Bilirubin,Urine Negative (Negative); Color,Urine YELLOW (Yellow); Glucose,Urine (UA) Negative (Negative); Ketones,Urine Negative (Negative); Leukocyte Esterase,Urine 3+ (Negative); PH,Urine 6.0 (5.0-8.5); Protein,Urine TRACE (Negative); Specific Gravity, Urine <= 1.005 (1.005-1.030); Urobilinogen,Urine 1.0 EU/dl (0.2)
[2025-04-19 04:28] LABS: WBC,Urine TNTC #/hpf (0-3)
== END 2025-04-19 23:59 | disposition home or self-care (01) ==
LOC: LAB.DROPOF 03:19
PROVIDERS: PCP Family Medicine; Visit Provider Family Medicine
DX: N30.00 Acute cystitis without hematuria (principal)
CPT/HCPCS: 81001; 87086; 87088

== ENCOUNTER 2025-04-27 07:30 | Outpatient (CLI) | payer MEDICARE, BC, SELFPAY ==
[2025-04-27 07:32] LABS: Microscopic, Urine URINE MICROSCOPIC (MICROSCOPIC)
--- OUTSIDE RECORDS SUMMARY | 2025-04-27 07:33 | XMS_ITS | Clinical Summary ---
Author Organization [facility] Address [address] [place] [address] Phone Care Team Providers Care Cable Engineer Name Role Phone Unavailable Primary Care [...] patient's age to complete this topic Insurance [facility] MEDICARE [place] [address]
--- OUTSIDE RECORDS SUMMARY | 2025-04-27 07:33 | XMS_ITS | Clinical Summary ---
Author Organization [facility] Address [address] [place] [address] Phone Care Team Providers Care Nailing Machine Feeder Name Role Phone Unavailable Unavailable Conditions or Problems No information available. Medications No information available. Medications Administered No information available. Allergies, Adverse Reactions, Alerts No information available. Results No information available. Plan of Care No information available. Procedures No information available. Vital Signs No information available. Immunizations No information available. Advance Directives No information available.
[2025-04-27 07:59] LABS: Bilirubin,Urine Negative (Negative); Color,Urine YELLOW (Yellow); Glucose,Urine (UA) Negative (Negative); Ketones,Urine Negative (Negative); Leukocyte Esterase,Urine 3+ (Negative); PH,Urine 6.0 (5.0-8.5); Protein,Urine 2+ (Negative); Specific Gravity, Urine 1.010 (1.005-1.030); Urobilinogen,Urine 0.2 EU/dl (0.2)
[2025-04-27 08:15] LABS: Bacteria,Urine 4+ /lpf; WBC,Urine TNTC #/hpf (0-3)
== END 2025-04-27 23:59 | disposition home or self-care (01) ==
PROVIDERS: PCP Nurse Practitioner Family; Visit Provider Nurse Practitioner Family
DX: N39.0 Urinary tract infection, site not specified (principal)
CPT/HCPCS: 81001; 87086; 87088; 87186

== ENCOUNTER 2025-07-17 10:37 | Outpatient (CLI) | payer MEDICARE, BC, SELFPAY ==
--- NOTE | 2025-07-17 10:50 | MM_ITS ---
PROCEDURE INFORMATION: Exam: MG Bilateral Screening 3D Mammography Exam date and time: 07/17/2025 10:48 AM Age: 79 years old Clinical indication: Screening examination TECHNIQUE: Imaging protocol: Bilateral Screening tomosynthesis and 2D mammography including computer-aided detection (CAD) when performed. COMPARISON: No relevant prior studies available. FINDINGS: MAMMOGRAPHY: Breast composition: The breasts are almost entirely fatty. Mass: None. Architectural distortion: None. Calcifications: No suspicious calcifications. Asymmetric density: None. Skin thickening: None. Axillary adenopathy: None. IMPRESSION: No mammographic evidence of malignancy. Annual screening is recommended unless otherwise clinically indicated. ASSESSMENT: BI-RADS Category 1: Negative.
== END 2025-07-17 23:59 | disposition home or self-care (01) ==
LOC: RAD 10:39
PROVIDERS: PCP Family Medicine; Visit Provider Family Medicine
DX: Z12.31 Encounter for screening mammogram for malignant neoplasm of breast (principal)
CPT/HCPCS: 77063; 77067

== ENCOUNTER 2025-07-18 07:11 | Outpatient (CLI) | payer MEDICARE, BC, SELFPAY ==
--- OUTSIDE RECORDS SUMMARY | 2025-07-18 07:14 | XMS_ITS | Clinical Summary ---
Author Organization [facility] , [facility] Address [address] [place] [address] Phone Care Team Providers Care Unit Support Representative Name Role Phone KATH ANMARGOT Randi Unavailable [phone] CODY WARREN MD Primary Care Provider [phone] Unavailable [phone] Reason for Visit and Chief Complaint The Chief Complaint is: cervical pain Problems Includes: Problems addressed during this encounter and other active Problems All Visits Onset Date Resolved Date Provider Condition S tatus Joint Pain Hip 09/13/2015 Meliton Tyler Active Last Documented On 6 10:37AM ; [facility] Pain in Lumbar Spine 01/08/2015 Blair Velazquez MD Active Last Documented On 5 2:25PM ; [facility] Plan of Treatment I will see if we can not set up a Left C5-6 6-7 cervical facet injection 4 on the left side. We will see her back in follow up thereafter for reassessment. - Last Documented On 10/22/2023 12:30PM ; [facility] Fall Risk Assessment: This patient has been identified as a fall risk. Balance/gait along with postural blood pressure, vision and home fall hazards have been assessed. Medications have been reviewed, and recommendations made with regard to contributing factors for future falls. Plan of care: Consideration of vitamin D supplementation along with balance and strength training with consideration for formal physical therapy has been discussed with the patient. - Last Documented On 10/22/2023 12:30PM ; [facility] Instructions to patient Lose weight Last Documented On 4 2:26PM ; [facility], [facility] Assessments Includes: Assessments from this encounter Findings - Overweight - Last Documented On 10/22/2023 12:30PM ; [facility], [facility] Cervical disc degeneration with facet joint arthropathy. This is not associated with radiculopathy or nerve root compression. But she will get referred symptoms into the upper back and shoulder area. - Last Documented On 10/22/2023 12:30PM ; [facility] Instructions Includes: Instructions from this encounter Instructions to patient Lose weight Last Documented On 4 2:26PM ; [facility] Medical Equipment - Implanted Devices Includes: Current Devices No Medical Equipment Recorded Medications Includes: Medications discussed during this encounter and other current Medications Current Medications (continue as prescribed) Urea 40% External Cream 10/08/2023 Provider: Diagnosis: Last Documented On 4 12:27PM By Radhames Stockton ; [facility], [facility] clonazePAM 0.5 MG Oral Tablet 10/05/2023 Provider: Trevor Chappell DR Diagnosis: Last Documented On 4 12:27PM By Radhames Stockton ; [facility], [facility] Thiamine HCl 100 MG Oral Tablet 10/04/2023 Provider: Desi Sanchez APRN Diagnosis: Last Documented On 4 12:27PM By Radhames Stockton ; [facility], [facility] Pregabalin 150 MG Oral Capsule 10/02/2023 Provider: Loy Dumont MD Diagnosis: Last Documented On 4 12:27PM By Radhames Stockton ; [facility], [facility] Omeprazole 40 MG Oral Capsule Delayed Release 09/28/19 24 Provider: Desi Jin PA-C Diagnosis: Last Documented On 4 12:27PM By Radhames Stockton ; [facility] Divalproex Sodium 250 MG Ora l Tablet Delayed Release 09/27/2023 Provider: Desi michaud APRN Diagnosis: Last Documented On 4 12:27PM By Radhames Stockton ; [facility], [facility] Carvedilol 3.125 MG Oral Tablet 09/24/2023 Provider: Desi Quiana Laura [employer] Diagnosis: Last Documented On 4 12:27PM By Radhames Stockton ; [facility] Loratadine 10 MG Oral Tablet 09/24/2023 Provider: Desi Sanchez [employer] Diagnosis: Last Documented On 4 12:27PM By Radhames Stockton ; [facility] QUEtiapine Fumarate 25 MG Or al Tablet 09/14/2023 Provider: Desi michaud [employer] Diagnosis: Last Documented On 4 12:27PM By Radhames Stockton ; [facility] Past Medications on file HYDROcodone-Acetaminophen 5- 325 MG Oral Tablet 05/06/2021 - 05/20/2021 Provider: Cody Warren MD Diagnosis: Up to twice a day, must last at least 3 weeks Last Documented On 1 2:51PM By Dr. Warren ; [facility] HYDROcodone-Acetaminophen 5- 325 MG Oral Tablet 03/31/2021 - 04/14/2021 Provider: Cody Warren MD Diagnosis: Up to twice a day, must last at least 3 weeks Last Documented On 1 4:49PM By Dr. Warren ; [facility] HYDROcodone-Acetaminophen 5- 325 MG Oral Tablet 03/24/2021 - 04/07/2021 Provider: Cody Warren MD Diagnosis: Take PO twice a day Last Documented On 1 9:15AM By Dr. Warren ; [facility] HYDROcodone-Acetaminophen 5- 325 MG Oral Tablet 02/28/2021 - 03/14/2021 Provider: Cody Warren MD Diagnosis: Take PO twice a day Last Documented On 1 2:38PM By Dr. Warren ; [facility] HYDROcodone-Acetaminophen 5- 325 MG Oral Tablet 01/22/2021 - 02/05/2021 Provider: Cody Warren MD Diagnosis: Take PO twice a day Last Documented On 1 1:31PM By Dr. Warren ; [facility] HYDROcodone-Acetaminophen 5- 325 MG Oral Tablet 01/22/2021 - 02/05/2021 Provider: Cody Warren MD Diagnosis: twice a day Last Documented On 1 1:27PM By Dr. Warren ; [facility] Neurontin 100MG Oral Capsule , conventional 05/06/2017 - 06/05/2017 Provider: Cody Warren MD Diagnosis: three times a day Last Documented On 7 10:45AM By Dr. Warren ; [facility] Neurontin 100 MG Capsule 03/22/2017 - 04/21/2017 Provi glenda: Cody Warren MD Diagnosis: three times a day Last Documented On 7 3:01PM By Renee Ritchie ; [facility] Buckley 7.5-325 MG Tablet 03/22/2017 - 04/21/2017 Provid er: Cody Warren MD Diagnosis: three times a day-prn Last Documented On 7 3:01PM By Renee Ritchie ; [facility] Buckley 7.5-325 MG Tablet 11/18/2016 - 12/18/2016 Provid er: Cody Warren MD Diagnosis: three times a day-prn Last Documented On 7 3:59PM By Dr. Warren ; [facility] Buckley 7.5-325 MG Tablet 09/10/2016 - 10/10/2016 Provid er: Cody Warren MD Diagnosis: three times a day-prn Last Documented On 7 11:41AM By Lurdes Loya ; [facility] Buckley 7.5-325 MG Tablet 07/30/2016 - 08/29/2016 Provid er: Meliton Castelan MD Diagnosis: three times a day Last Documented On 6 3:26PM By Lurdes Loya ; [facility] Buckley 7.5-325 MG Tablet 07/13/2016 - 08/12/2016 Provid er: Cody Warren MD Diagnosis: Last Documented On 6 11:32AM By Dr. Warren ; [facility] Percocet 7.5-325 MG Tablet 06/25/2016 - 07/10/2016 Pro vider: Saulo Helton MD Diagnosis: four times a day- patient does not want generic meds Last Documented On 6 1:34PM By Lurdes Loya ; [facility] Buckley 7.5-325 MG OR TABS 05/11/2016 - 06/10/2016 Provi glenda: Cody Warren MD Diagnosis: Last Documented On 6 2:12PM By Ana Felder ; [facility] Buckley 5-325 MG Tablet 05/01/2016 - 05/31/2016 Provider : Cody Warren MD Diagnosis: twice a day prn for pain Last Documented On 6 4:10PM By Dr. Warren ; [facility] Buckley 5-325 MG Tablet 03/26/2016 - 04/25/2016 Provider : Cody Warren MD Diagnosis: twice a day prn for pain Last Documented On 6 2:07PM By Dr. Warren ; [facility] Ultram 50 MG Tablet 05/01/2015 - 05/07/2015 Provider: Blair Velazquez MD Diagnosis: 1 tab every 6 hrs prn pain Last Documented On 5 2:00PM By Allie Uribe ; [facility] Medications Administered Includes: Administered Medications from this encounter No Administered Medications Recorded Vital Signs Includes: Vital Signs from this encounter Vital Name 10/21/2023 03:07P Height (in) 69 Weight (lb) 226 Body Mass Index 33.4 Body Surface Area 2.2 Note: pw Last Documented: On 10/21/2023 3:07PM ; [facility], [facility] Results Includes: Results discussed during this encounter No Results Recorded For Specified Dates History of Present Illness Includes: History of Present Illness from this encounter PHYLICIA Solorzano is a 77 year old female. - Allergy list reviewed - Problem list reviewed - Medication reconciliation performed - Medication list reviewed - Previous history of new onset pain Injury is not work related or an automotive accident - Patient pain level from 1-10: 5 - Yes, previous treatment. - History of Physical Therapy - History of Home Exercise - History of Injections 02/05/21-Right Facet/[id number] Medications used for this condition: Patient returns following recent cervical injection. Patient reporting dramatic improvement of her neck and upper back symptoms. Patient started to notice some recurrent symptoms. But overall she had been very pleased with the results. Noticing 80% relief of her symptoms. Patient was unable to get up on the fluoroscopy table for the facet injection. And ended up having an epidural injection instead. This seemed to provide good results for. Social History Description Last Updated Tobacco non-user 10/22/2023 Last Documented On 4 12:30PM ; [facility] No recent change in diet 10/22/2023 Last Documented On 4 12:30PM ; [facility] Not a current smoker. 10/22/2023 Last Documented On 4 12:30PM ; [facility] Not using alcohol 03/24/2021 Last Documented On 4 2:26PM ; [facility] Not using drugs 03/24/2021 Last Documented On 4 2:26PM ; [facility] Caffeine use 09/13/2015 Last Documented On 4 2:26PM ; [facility] Not exercising regularly 09/13/2015 Last Documented On 4 2:26PM ; [facility] Smoking Status Unknown Procedures and Surgical History Includes: Procedures from this encounter Procedures Code Diagnosis Performing Provider Service L ocation Service Date use of tobacco assessment performed 1000F Last Documented On 4 2:26PM ; [facility] patient screened for future fall risk: documentation of any fall with injury in past year 1100F Last Documented On 4 3:07PM ; [facility] review of medications documented 1160F Last Documented On 4 2:26PM ; [facility] an X-ray was performed 2020 [facility] ~09/07/2023 LSpine @ [place] ~09/07/20[place] [id number] Last Documented On 4 12:29PM ; [facility] an MRI was performed 2016 [facility] [id number] Last Documented On 4 12:29PM ; [facility] Surgical History Last Updated Past Surgical History: Breast reduction 10/22/2023 Last Documented On 4 12:30PM ; [facility] History of back surgery 08/11/2017 Last Documented On 4 2:26PM ; [facility] Medical History Includes: Medical History addressed during this encounter Description Last Updated No recent immunization for flu 1 Last Documented On 4 2:26PM ; [facility] No recent immunization for pneumococcal pneumonia 03/24/2021 Last Documented On 4 2:26PM ; [facility] Arthritis 01/16/2021 Last Documented On 4 2:26PM ; [facility] Heartburn / Acid Reflux 01/16/2021 Last Documented On 4 2:26PM ; [facility] History of Cancer 01/16/2021 Last Documented On 4 2:26PM ; [facility] Hypertension 01/16/2021 Last Documented On 4 2:26PM ; [facility] Hysterectomy 01/16/2021 Last Documented On 4 2:26PM ; [facility] History of depression 09/13/2015 Last Documented On 4 2:26PM ; [facility] Family History Includes: Family History addressed during this encounter Description Last Updated Diabetes mellitus 01/16/2021 Last Documented On 4 12:29PM ; [facility] Family history of cancer 01/16/2021 Last Documented On 4 2:26PM ; [facility] Family history of rheumatoid arthritis m other,SISTER 08/11/2017 Last Documented On 4 2:26PM ; [facility] Family history of heart disease sister 0 01/30/2016 Last Documented On 4 2:26PM ; [facility] Family history of hypertension mother/si ster 09/13/2015 Last Documented On 4 2:26PM ; [facility] Review of Systems Includes: Review of Systems from this encounter Systemic: Not feeling tired, no recent weight loss, and no recent weight gain. No edema. Head: Headache. No sinus pain. Eyes: Vision problems glasses and vision problems. No glaucomatous visual field defect. No Cataracts, no Glasses/Contacts, and no Glaucoma. Otolaryngeal: No hearing loss and no tinnitus. No nasal symptoms. Cardiovascular: No chest pain or discomfort and no palpitations. Hypertension. No High Cholesterol. Pulmonary: No daytime asthma symptoms, no cough, and no chronic cough. No wheezing. Gastrointestinal: Heartburn. No abdominal pain. No Indigestion, no Acid Reflux, no Peptic Ulcer, no GI Stomach Bleed, and no Ulcers. Endocrine: Hot flashes. No muscle weakness, no Diabetes, no Hypothyroid, and no Hyperthyroid. Hematologic: No easy bleeding. A tendency for easy bruising. No Anemia. Musculoskeletal: No Arthritis. Lower back pain. No soft tissue swelling. Pain localized to one or more joints. Neurological: No dizziness, no convulsions, and no numbness. Psychological: Anxiety, emotional lability, and depression. No insomnia. Crying for no reason. Skin: No dry skin. No Ulcers and no Scars. Rash: No ulcers. Allergic and Immunologic: Complaint of seasonal allergic reaction. Mental Status Includes: Mental Status from this encounter Description Anxiety Functional Status Includes: Functional Status from this encounter No Functional Status Recorded Physical Exam Includes: Physical Exam from this encounter Allergies Includes: Active Allergies Substance Type Reaction Onset Date Resolved Date Statu s Naproxen Sodium Allergy 01/08/2015 Act rojas Last Documented On 4 2:59PM ; [facility] Latex Allergy 01/08/2015 Active Last Documented On 4 2:59PM ; [facility] Codeine and Related Allergy 01/08/2015 Active Last Documented On 4 2:59PM ; [facility] Encounters Encounter Provider Location Date Check-In Time Check-Out Time Diagnosis Follow Up MARGOT STOCKTON PA-C [facility] 4 2:24PM 3:26PM Overweight Insurance Includes: Active Insurance Policies Plan Name Member ID Group # Subscriber Relationship Effect rojas Dates 1 - Medicare Part B [facility] [id number] Sari Solorzano Self 02/27/2014 - Unknown 2 - [employer] [id number] Sari Solorzano Self 002 - Unknown Clinical Notes Includes: Clinical Notes from this encounter * Progress note Date Encounter Last Documented by 10/21/2023 Follow Up Last documented on 10/22/2023; 12:30 PM, MARGOT Zhang; [facility] Active Problems & Conditions - Joint Pain, Localized in the Hip - Pain in the Lumbar Spine Chief Complaint The Chief Complaint is: Cervical pain. Referred Here Referred by pcp. History of Present Illness Sari Solorzano is a 77 year old female. - Allergy list reviewed - Problem list reviewed - Medication reconciliation performed - Medication list reviewed - Previous history of new onset pain Injury is not work related or an automotive accident - Patient pain level from 1-10: 5 - Yes, previous treatment. - History of Physical Therapy - History of Home Exercise - History of Injections 02/05/21-Right Facet/[id number] Medications used for this condition: Patient returns following recent cervical injection. Patient reporting dramatic improvement of her neck and upper back symptoms. Patient started to notice some recurrent symptoms. But overall she had been very pleased with the results. Noticing 80% relief of her symptoms. Patient was unable to get up on the fluoroscopy table for the facet injection. And ended up having an epidural injection instead. This seemed to provide good results for. Current Medication - Carvedilol 3.125 MG Oral Tablet 30 days, 0 refills - clonazePAM 0.5 MG Oral Tablet 30 days, 0 refills - Divalproex Sodium 250 MG Oral Tablet Delayed Release 30 days, 0 refills - Loratadine 10 MG Oral Tablet 90 days, 0 refills - Omeprazole 40 MG Oral Capsule Delayed Release 30 days, 0 refills - Pregabalin 150 MG Oral Capsule 30 days, 0 refills - QUEtiapine Fumarate 25 MG Oral Tablet 90 days, 0 refills - Thiamine HCl 100 MG Oral Tablet 30 days, 0 refills - Urea 40% External Cream 30 days, 0 refills Past Medical/Surgical History Reported: Immunization History: No recent immunization for flu and not for pneumococcal pneumonia. Diagnoses: History of Cancer Heartburn / Acid Reflux Hypertension. Arthritis. Depression Surgical: - Past Surgical History: Breast reduction - Hysterectomy - Back surgery Social History Not a current smoker. Current diet: No recent change in diet. Caffeine use: Caffeine use. Tobacco use: Tobacco non-user. Alcohol: Not using alcohol. Drug Use: Not using drugs. Habits: Not exercising regularly. Allergies - Codeine and Related - Latex - Naproxen Sodium Family History Cancer Heart disease sister Diabetes mellitus Systemic hypertension mother/sister Rheumatoid arthritis mother,SISTER Review Of Systems Systemic: Not feeling tired, no recent weight loss, and no recent weight gain. No edema. Head: Headache. No sinus pain. Eyes: Vision problems glasses and vision problems. No glaucomatous visual field defect. No Cataracts, no Glasses/Contacts, and no Glaucoma. Otolaryngeal: No hearing loss and no tinnitus. No nasal symptoms. Cardiovascular: No chest pain or discomfort and no palpitations. Hypertension. No High Cholesterol. Pulmonary: No daytime asthma symptoms, no cough, and no chronic cough. No wheezing. Gastrointestinal: Heartburn. No abdominal pain. No Indigestion, no Acid Reflux, no Peptic Ulcer, no GI Stomach Bleed, and no Ulcers. Endocrine: Hot flashes. No muscle weakness, no Diabetes, no Hypothyroid, and no Hyperthyroid. Hematologic: No easy bleeding. A tendency for easy bruising. No Anemia. Musculoskeletal: No Arthritis. Lower back pain. No soft tissue swelling. Pain localized to one or more joints. Neurological: No dizziness, no convulsions, and no numbness. Psychological: Anxiety, emotional lability, and depression. No insomnia. Crying for no reason. Skin: No dry skin. No Ulcers and no Scars. Rash: No ulcers. Allergic and Immunologic: Complaint of seasonal allergic reaction. Physical Findings - Vitals taken 10/21/2023 03:07 pm pw Height 69 in 59 - 78 Weight 226 lbs 95 - 175 Body Mass Index 33.4 kg/m2 Body Surface Area 2.2 m2 Skin is unremarkable. No spasm or scoliosis. Patient has palpable tenderness over the cervical facet joints. Extension rotation and lateral bending with increased pain in the neck and shoulder area of the. Shoulder Elbow and wrist motion are normal. Normal range of motion no spasticity no clonus or hyperreflexia findings. Negative Hoffmans. Assessment - Overweight Cervical disc degeneration with facet joint arthropathy. This is not associated with radiculopathy or nerve root compression. But she will get referred symptoms into the upper back and shoulder area. Previous Tests Imaging: X-Ray: An X-ray was performed 2020 [facility] 09/07/2023 [facility] 09/07/2023 Neck @ [facility]. MRI Scan: An MRI was performed 2016 [facility]. Counseling/Education - Lose weight Plan I will see if we can not set up a Left C5-6 6-7 cervical facet injection 4 on the left side. We will see her back in follow up thereafter for reassessment. Fall Risk Assessment: This patient has been identified as a fall risk. Balance/gait along with postural blood pressure, vision and home fall hazards have been assessed. Medications have been reviewed, and recommendations made with regard to contributing factors for future falls. Plan of care: Consideration of vitamin D supplementation along with balance and strength training with consideration for formal physical therapy has been discussed with the patient. Notes This dictation was done with voice recognition software and may contain errors and omissions. Practice Management Use of tobacco assessment performed and patient screened for future fall risk documentation of any fall with injury in past year Review of medications documented. Care Team - Trevor Chappell DR Health Reminders - Assess BMI satisfied 10/21/2023. - Assess Tobacco Use satisfied 10/22/2023. - Follow Up Plan BMI Management satisfied 10/21/2023.
--- OUTSIDE RECORDS SUMMARY | 2025-07-18 07:14 | XMS_ITS | Clinical Summary ---
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 Name Role Phone KATH AN MARGOT Randi Unavailable [phone] CODY WARREN MD Primary Care Provider [phone] Unavailable [phone] Reason for Visit and Chief Complaint The Chief Complaint is: cervical pain Problems Includes: Problems addressed during this encounter and other active Problems All Visits Onset Date Resolved Date Provider Condition S tatus Joint Pain Hip 09/13/2015 Meliton Tyler Active Last Documented On 6 10:37AM ; [facility] Pain in Lumbar Spine 01/08/2015 Blair Velazquez MD Active Last Documented On 5 2:25PM ; [facility] Plan of Treatment Fall Risk Assessment: This patient has been [...] with the patient. - Last Documented On 03/09/2024 3:58PM ; [facility] Repeat cervical epidural injection. Follow up as needed. Patient is not a surgical candidate due to some other health issues. And therefore treating her with the injections likely best option. - Last Documented On 03/09/2024 3:58PM ; [facility] Instructions to patient Lose weight Last Documented On 4 2:59PM ; [facility], [facility] Assessments Includes: Assessments from this encounter Findings - Overweight - Last Documented On 03/09/2024 3:58PM ; [facility], [facility] Cervical disc degeneration with facet arthritis and stenosis. Patient had excellent response to the epidural injection back in August. Patient is not interested in pursuing any surgical treatment as she finds the injections very effective. - Last Documented On 03/09/2024 3:58PM ; [facility], [facility] Instructions Includes: Instructions from this encounter Instructions to patient Lose weight Last Documented On 4 2:59PM ; [facility], [facility] Medical Equipment - Implanted Devices Includes: Current Devices No Medical Equipment Recorded Medications Includes: Medications discussed during this encounter and other current Medications Current Medications (continue as prescribed) Urea 40% External Cream 10/08/2023 Provider: Diagnosis: Last Documented On 4 12:27PM By Radhames Stockton ; [facility], [facility] clonazePAM 0.5 MG Oral Tablet 10/05/2023 Provider: Trevor Chappell DR Diagnosis: Last Documented On 4 12:27PM By Radhames Stockton ; [facility], [facility] Thiamine HCl 100 MG Oral Tablet 10/04/2023 Provider: Desi Sanchez APRN Diagnosis: Last Documented On 4 12:27PM By Radhames Stockton ; [facility], [facility] Pregabalin 150 MG Oral Capsule 10/02/2023 Provider: oLy Dumont MD Diagnosis: Last Documented On 4 12:27PM By Radhames Stockton ; [facility], [facility] Omeprazole 40 MG Oral Capsule Delayed Release 09/28/19 Provider: Desi Jin PA-C Diagnosis: Last Documented On 4 12:27PM By Radhames Stockton ; [facility], [facility] Divalproex Sodium 250 MG Ora l Tablet Delayed Release 09/27/2023 Provider: Desi michaud APRN Diagnosis: Last Documented On 4 12:27PM By Radhames Stockton ; [facility], [facility] Carvedilol 3.125 MG Oral Tablet 09/24/2023 Provider: Desi Sanchez APRN Diagnosis: Last Documented On 4 12:27PM By Radhames Stockton ; [facility] Loratadine 10 MG Oral Tablet 09/24/2023 Provider: Desi Sanchez APRN Diagnosis: Last Documented On 4 12:27PM By Radhames Stockton ; [facility] QUEtiapine Fumarate 25 MG Or al Tablet 09/14/2023 Provider: Desi michaud APRN Diagnosis: Last Documented On 4 12:27PM By Radhames Stockton ; [facility] Past Medications on file HYDROcodone-Acetaminophen 5- 325 MG Oral Tablet 05/06/2021 - 05/20/2021 Provider: Cody Warren MD Diagnosis: Up to twice a day, must last at least 3 weeks Last Documented On 1 2:51PM By Dr. Warren ; [facility] HYDROcodone-Acetaminophen 5- 325 MG Oral Tablet 03/31/2021 - 04/14/2021 Provider: Cody Warren MD Diagnosis: Up to twice a day, must last at least 3 weeks Last Documented On 1 4:49PM By Dr. Warren ; [facility] HYDROcodone-Acetaminophen 5- 325 MG Oral Tablet 03/24/2021 - 04/07/2021 Provider: Cody Warren MD Diagnosis: Take PO twice a day Last Documented On 1 9:15AM By Dr. Warren ; [facility] HYDROcodone-Acetaminophen 5- 325 MG Oral Tablet 02/28/2021 - 03/14/2021 Provider: Cody Warren MD Diagnosis: Take PO twice a day Last Documented On 1 2:38PM By Dr. Warren ; [facility] HYDROcodone-Acetaminophen 5- 325 MG Oral Tablet 01/22/2021 - 02/05/2021 Provider: Cody Warren MD Diagnosis: Take PO twice a day Last Documented On 1 1:31PM By Dr. Warren ; [facility] HYDROcodone-Acetaminophen 5- 325 MG [...] By Renee Ritchie ; [facility] [place] 7.5-325 MG Tablet 03/22/2017 - 04/21/2017 Provid er: Cody Warren MD Diagnosis: three times a day-prn Last Documented On 7 3:01PM By Renee Ritchie ; [facility] [place] 7.5-325 MG Tablet 11/18/2016 - 12/18/2016 Provid er: Cody Warren MD Diagnosis: three times a day-prn Last Documented On 7 3:59PM By Dr. Warren ; [facility] [place] 7.5-325 MG Tablet 09/10/2016 - 10/10/2016 Provid er: Cody Warren MD Diagnosis: three times a day-prn Last Documented On 7 11:41AM By Lurdes Loya ; [facility] [place] 7.5-325 MG Tablet 07/30/2016 - 08/29/2016 Provid er: Meliton Castelan MD Diagnosis: three times a day Last Documented On 6 3:26PM By Lurdes Loya ; [facility] [place] 7.5-325 MG Tablet 07/13/2016 - 08/12/2016 Provid er: Cody Warren MD Diagnosis: Last Documented On 6 11:32AM By Dr. Warren ; [facility] Percocet 7.5-325 MG Tablet 06/25/2016 - 07/10/2016 Pro vider: Saulo Helton MD Diagnosis: four times a day- patient does not want generic meds Last Documented On 6 1:34PM By Lurdes Loya ; [facility] [place] 7.5-325 MG OR TABS 05/11/2016 - 06/10/2016 Provi glenda: Cody Warren MD Diagnosis: Last Documented On 6 2:12PM By Ana Felder ; [facility] [place] 5-325 MG Tablet 05/01/2016 - 05/31/2016 Provider : Cody Warren MD Diagnosis: twice a day prn for pain Last Documented On 6 4:10PM By Dr. Warren ; [facility] [place] 5-325 MG Tablet 03/26/2016 - 04/25/2016 Provider : Cody Warren MD Diagnosis: twice a day prn for pain Last Documented On 6 2:07PM By Dr. Warren ; [facility] Ultram 50 MG Tablet 05/01/2015 - 05/07/2015 Provider: Blair Velazquez MD Diagnosis: 1 tab every 6 hrs prn pain Last Documented On 5 2:00PM By Allie Uribe ; [facility] Medications Administered Includes: Administered Medications from this encounter No Administered Medications Recorded Results Includes: Results discussed during this encounter No Results Recorded For Specified Dates History of Present Illness Includes: History of Present Illness from this encounter HPI Sari Solorzano is a 78 year old female. - Allergy list reviewed - Problem list reviewed - Medication reconciliation performed - Medication list reviewed - Previous history of new onset pain Injury is not work related or an automotive accident - Patient pain level from 1-10: 5 - Yes, previous treatment. - History of Physical Therapy - History of Home Exercise - History of Injections 02/05/21-Right Facet/[id number] Medications used for this condition: Patient returns regarding in her neck shoulder and arm symptoms. Patient is here for repeat cervical epidural injection. She had a really good response to the injection back in January. Having 85% relief of her neck shoulder and arm symptoms. Patient has returned hopeful to repeat the injection. He is actually already scheduled for another 1 today having increasing neck pain and stiffness with some numbness and tingling affect the arms but not associated with any myelopathic complaints or symptoms. Social History Description Last Updated No recent change in diet 10/22/2023 Last Documented On 4 2:59PM ; [facility] Not a current smoker. 10/22/2023 Last Documented On 4 2:59PM ; [facility] Not using alcohol 03/24/2021 Last Documented On 4 2:59PM ; [facility] Not using drugs 03/24/2021 Last Documented On 4 2:59PM ; [facility], [facility] Caffeine use 09/13/2015 Last Documented On 4 2:59PM ; [facility], [facility] Not exercising regularly 09/13/2015 Last Documented On 4 2:59PM ; [facility], [facility] Smoking status : Never smoker 09/13/2015 Last Documented On 4 2:59PM ; [facility], [facility] Procedures and Surgical History Includes: Procedures from this encounter Procedures Code Diagnosis Performing Provider Service L ocation Service Date use of tobacco assessment performed 1000F Last Documented On 4 2:59PM ; [facility], [facility] patient screened for future fall risk: documentation of any fall with injury in past year 1100F Last Documented On 4 2:59PM ; [facility], [facility] review of medications documented 1160F Last Documented On 4 2:59PM ; [facility], [facility] an X-ray was performed 2020 [facility] ~09/07/2023 LSpine @ O ~09/07/2023 [place] [id number] Last Documented On 4 2:59PM ; [facility], [facility] an MRI was performed 2016 [facility] [id number] Last Documented On 4 2:59PM ; [facility] Surgical History Last Updated Past Surgical History: Breast reduction 10/22/2023 Last Documented On 4 2:59PM ; [facility] History of back surgery 08/11/2017 Last Documented On 4 2:59PM ; [facility], [facility] Medical History Includes: Medical History addressed during this encounter Description Last Updated No recent immunization for flu Last Documented On 4 2:59PM ; [facility] No recent immunization for pneumococcal pneumonia 03/24/2021 Last Documented On 4 2:59PM ; [facility] Arthritis 01/16/2021 Last Documented On 4 2:59PM ; [facility] Heartburn / Acid Reflux 01/16/2021 Last Documented On 4 2:59PM ; [facility] History of Cancer 01/16/2021 Last Documented On 4 2:59PM ; [facility] Hypertension 01/16/2021 Last Documented On 4 2:59PM ; [facility] Hysterectomy 01/16/2021 Last Documented On 4 2:59PM ; [facility] breast reduction ~ACID REFLUX 08/11/2017 Last Documented On 4 2:59PM ; [facility], [facility] Arthritic joint problems 08/11/2017 Last Documented On 4 2:59PM ; [facility] Intermittent hypertension 08/11/2017 Last Documented On 4 2:59PM ; [facility] A recent injection 09/13/2015 Last Documented On 4 2:59PM ; [facility] History of depression 09/13/2015 Last Documented On 4 2:59PM ; [facility] Family History Includes: Family History addressed during this encounter Description Last Updated Diabetes mellitus 01/16/2021 Last Documented On 4 2:59PM ; [facility] Family history of cancer 01/16/2021 Last Documented On 4 2:59PM ; [facility] Family history of rheumatoid arthritis m other,SISTER 08/11/2017 Last Documented On 4 2:59PM ; [facility] Family history of heart disease sister 0 01/30/2016 Last Documented On 4 2:59PM ; [facility] Family history of diabetes mellitus lucinda ter/brother 09/13/2015 Last Documented On 4 2:59PM ; [facility] Family history of hypertension mother/si ster 09/13/2015 Last Documented On 4 2:59PM ; [facility] Review of Systems Includes: Review of [...] Heartburn. No abdominal pain. No Indigestion, no Peptic Ulcer, no GI Stomach Bleed, no Ulcers, and no Acid Reflux. Endocrine: Hot flashes. No muscle weakness, no [...] rojas Last Documented On 4 2:59PM ; [facility] Latex Allergy 01/08/2015 Active Last Documented On 4 2:59PM ; [facility] Codeine and Related Allergy 01/08/2015 Active Last Documented On 4 2:59PM ; [facility], [facility] Encounters Encounter Provider Location Date Check-In Time Check-Out Time Diagnosis Follow Up MARGOT STOCKTON PA-C [facility] 4 2:39PM 3:44PM Overweight Insurance Includes: Active Insurance Policies Plan Name Member ID Group # Subscriber Relationship Effect rojas Dates 1 - Medicare Part B [facility] [id number] Sari Solorzano Self 02/27/2014 - Unknown 2 - [employer] [id number] Sari Solorzano Self 002 - Unknown Clinical Notes Includes: Clinical Notes from this encounter * Progress note Date Encounter Last Documented by 03/09/2024 Follow Up Last documented on 03/09/2024; 3:58 PM, MARGOT Zhang; [facility] Active Problems & Conditions - Joint Pain, Localized in the Hip - Pain in the Lumbar Spine Chief Complaint The Chief Complaint is: Cervical pain. Referred Here Referred by pcp. History of Present Illness Sari Solorzano is a 78 year old female. - Allergy list reviewed - Problem list reviewed - Medication reconciliation performed - Medication list reviewed - Previous history of new onset pain Injury is not work related or an automotive accident - Patient pain level from 1-10: 5 - Yes, previous treatment. - History of Physical Therapy - History of Home Exercise - History of Injections 02/05/21-Right Facet/[id number] Medications used for this condition: Patient returns regarding in her neck shoulder and arm symptoms. Patient is here for repeat cervical epidural injection. She had a really good response to the injection back in January. Having 85% relief of her neck shoulder and arm symptoms. Patient has returned hopeful to repeat the injection. He is actually already scheduled for another 1 today having increasing neck pain and stiffness with some numbness and tingling affect the arms but not associated with any myelopathic complaints or symptoms. Current Medication - Carvedilol 3.125 MG Oral Tablet 30 days, 0 refills - clonazePAM 0.5 MG Oral Tablet 30 days, 0 refills - Divalproex Sodium 250 MG Oral Tablet Delayed Release Tablet, enteric coated 30 days, 0 refills - Loratadine 10 MG Oral Tablet 90 days, 0 refills - Omeprazole 40 MG Oral Capsule Delayed Release Capsule, delayed-release 30 days, 0 refills - Pregabalin 150 MG Oral Capsule Capsule, conventional 30 days, 0 refills - QUEtiapine Fumarate 25 MG Oral Tablet 90 days, 0 refills - Thiamine HCl 100 MG Oral Tablet 30 days, 0 refills - Urea 40% External Cream 30 days, 0 refills Past Medical/Surgical History Reported: Medical: Arthritic joint problems. Intermittent hypertension. Medications: A recent injection. Immunization History: No recent immunization for flu and not for pneumococcal pneumonia. Diagnoses: History of Cancer Heartburn / Acid Reflux Hypertension. Arthritis. Depression Breast reduction ACID REFLUX. Surgical: - Past Surgical History: Breast reduction - Hysterectomy - Back surgery Social History Not a current smoker. Current diet: No recent change in diet. Caffeine use: Caffeine use. Tobacco use: Smoking status: Never smoker. Alcohol: Not using alcohol. Drug Use: Not using drugs. Habits: Not exercising regularly. Allergies - Codeine and Related - Latex - Naproxen Sodium Family History Cancer Heart disease sister Diabetes mellitus Systemic hypertension mother/sister Diabetes mellitus sisiter/brother Rheumatoid arthritis mother,SISTER Review Of Systems Systemic: [...] Heartburn. No abdominal pain. No Indigestion, no Peptic Ulcer, no GI Stomach Bleed, no Ulcers, and no Acid Reflux. Endocrine: Hot flashes. No muscle weakness, no [...] Complaint of seasonal allergic reaction. Physical Findings Skin is unremarkable. Patient has some nonspecific tenderness throughout the posterior lateral cervical spine area. Stiffness with range of motion. Patient has active motion through the shoulders elbows and wrist. No hyperreflexia findings. No spasticity. She will describe some C5 and C6 radicular symptoms that extends down both arms. But she does not have nerve root compression or myelopathic findings associated with this. Just radicular symptoms. Tests Four views of the cervical spine demonstrate cervical disc degeneration with facet arthritis. No evidence of fracture or instability. Assessment - Overweight Cervical disc degeneration with facet arthritis and stenosis. Patient had excellent response to the epidural injection back in August. Patient is not interested in pursuing any surgical treatment as she finds the injections very effective. Previous Tests Imaging: X-Ray: An X-ray was performed 2020 [facility] 09/07/2023 [facility] @ [facility] 09/07/2023 Neck @ [facility]. MRI Scan: An MRI was performed 2016 [facility]. Counseling/Education - Lose weight Plan Fall Risk Assessment: This patient has been [...] therapy has been discussed with the patient. Repeat cervical epidural injection. Follow up as needed. Patient is not a surgical candidate due to some other health issues. And therefore treating her with the injections likely best option. Notes This dictation was done with voice recognition software and may contain errors and omissions. Practice Management Use of tobacco assessment performed and patient screened for future fall risk documentation of any fall with injury in past year Review of medications documented. Care Team - Trevor Chappell DR Health Reminders - Assess Tobacco Use satisfied 09/13/2015. - Follow Up Plan BMI Management satisfied 03/09/2024.
--- OUTSIDE RECORDS SUMMARY | 2025-07-18 07:14 | XMS_ITS | Clinical Summary ---
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 Medications No information available. Medications Administered No information available. Allergies, Adverse Reactions, Alerts No information available. Results No information available. Plan of Care No information available. Procedures No information available. Vital Signs No information available. Immunizations No information available. Advance Directives No information available.
--- OUTSIDE RECORDS SUMMARY | 2025-07-18 07:14 | XMS_ITS | Clinical Summary ---
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 Name Role Phone KATH ANMARGOT Randi Unavailable [phone] CODY WARREN MD Primary Care Provider [phone] Unavailable [phone] Reason for Visit and Chief Complaint The Chief Complaint is: cervical pain Problems Includes: Problems addressed during this encounter and other active Problems All Visits Onset Date Resolved Date Provider Condition S tatus Joint Pain Hip 09/13/2015 Meliton Tyler Active Last Documented On 6 10:37AM ; [facility] Pain in Lumbar Spine 01/08/2015 Blair Velazquez MD Active Last Documented On 5 2:25PM ; [facility] Plan of Treatment Fall Risk Assessment: This [...] with the patient. - Last Documented On 12/15/2023 3:49PM ; [facility] At this time nothing further is needed for spine. She will have the swelling in her legs evaluated him. This does not appear to be coming from orthopedic problem. If she starts having some additional spine complaints she returned back to see us otherwise we will see her back on an as-needed basis. - Last Documented On 12/15/2023 3:49PM ; [facility], [facility] Instructions to patient Lose weight Last Documented On 4 2:45PM ; [facility], [facility] Assessments Includes: Assessments from this encounter Findings - Overweight - Last Documented On 12/15/2023 3:49PM ; [facility], [facility] Cervical lumbar disc degeneration facet arthritis. Symptoms are currently controlled. - Last Documented On 12/15/2023 3:49PM ; [facility], [facility] Instructions Includes: Instructions from this encounter Instructions to patient Lose weight Last Documented On 4 2:45PM ; [facility], [facility] Medical Equipment - Implanted Devices Includes: Current Devices No Medical Equipment Recorded Medications Includes: Medications discussed during this encounter and other current Medications Current Medications (continue as prescribed) Urea 40% External Cream 10/08/2023 Provider: Diagnosis: Last Documented On 4 12:27PM By Radhames Stockton ; [facility], [facility] clonazePAM 0.5 MG Oral Tablet 10/05/2023 Provider: Trevor Chappell DR Diagnosis: Last Documented On 4 12:27PM By Radhames Stockton ; [facility], [facility] Thiamine HCl 100 MG Oral Tablet 10/04/2023 Provider: Desi Sanchez APRN Diagnosis: Last Documented On 4 12:27PM By Radhames Stockton ; [facility], [facility] Pregabalin 150 MG Oral Capsule 10/02/2023 Provider: Loy Dumont MD Diagnosis: Last Documented On 4 12:27PM By Radhames Stockton ; [facility], [facility] Omeprazole 40 MG Oral Capsule Delayed Release 09/28/19 Provider: Desi Jin PA-C Diagnosis: Last Documented On 4 12:27PM By Radhames Stockton ; [facility], [facility] Divalproex Sodium 250 MG Ora l Tablet Delayed Release 09/27/2023 Provider: Desi michaud APRN Diagnosis: Last Documented On 4 12:27PM By Radhames Stockton ; [facility], [facility] Carvedilol 3.125 MG Oral Tablet 09/24/2023 Provider: Desi Sanchez APRN Diagnosis: Last Documented On 4 12:27PM By Radhames Stockton ; [facility] Loratadine 10 MG Oral Tablet 09/24/2023 Provider: Desi Sanchez APRN Diagnosis: Last Documented On 4 12:27PM By Radhames Stockton ; [facility] QUEtiapine Fumarate 25 MG Or al Tablet 09/14/2023 Provider: Desi michaud APRN Diagnosis: Last Documented On 4 12:27PM By Radhames Stockton ; [facility] Past Medications on file HYDROcodone-Acetaminophen 5- 325 MG Oral Tablet 05/06/2021 - 05/20/2021 Provider: Cody Warren MD Diagnosis: Up to twice a day, must last at least 3 weeks Last Documented On 1 2:51PM By Dr. Warren ; [facility] HYDROcodone-Acetaminophen 5- 325 MG Oral Tablet 03/31/2021 - 04/14/2021 Provider: Cody Warren MD Diagnosis: Up to twice a day, must last at least 3 weeks Last Documented On 1 4:49PM By Dr. Warren ; [facility] HYDROcodone-Acetaminophen 5- 325 MG Oral Tablet 03/24/2021 - 04/07/2021 Provider: Cody Warern MD Diagnosis: Take PO twice a day Last Documented On 1 9:15AM By Dr. Warren ; [facility] HYDROcodone-Acetaminophen 5- 325 MG Oral Tablet 02/28/2021 - 03/14/2021 Provider: Cody Warren MD Diagnosis: Take PO twice a day Last Documented On 1 2:38PM By Dr. Warren ; [facility] HYDROcodone-Acetaminophen 5- 325 MG Oral Tablet 01/22/2021 - 02/05/2021 Provider: Cody Warren MD Diagnosis: Take PO twice a day Last Documented On 1 1:31PM By Dr. Warren ; [facility] HYDROcodone-Acetaminophen 5- 325 MG Oral [...] By Renee Ritchie ; [facility] Liberty 7.5-325 MG Tablet 03/22/2017 - 04/21/2017 Provid er: Cody Warren MD Diagnosis: three times a day-prn Last Documented On 7 3:01PM By Renee Ritchie ; [facility] Liberty 7.5-325 MG Tablet 11/18/2016 - 12/18/2016 Provid er: Cody Warren MD Diagnosis: three times a day-prn Last Documented On 7 3:59PM By Dr. Warren ; [facility] [place] 7.5-325 MG Tablet 09/10/2016 - 10/10/2016 Provid er: Cody Warren MD Diagnosis: three times a day-prn Last Documented On 7 11:41AM By Lurdes Loya ; [facility] [place] 7.5-325 MG Tablet 07/30/2016 - 08/29/2016 Provid er: Meliton Castelan MD Diagnosis: three times a day Last Documented On 6 3:26PM By Lurdes Loya ; [facility] Liberty 7.5-325 MG Tablet 07/13/2016 - 08/12/2016 Provid er: Cody Warren MD Diagnosis: Last Documented On 6 11:32AM By Dr. Warren ; [facility] Percocet 7.5-325 MG Tablet 06/25/2016 - 07/10/2016 Pro vider: Saulo Helton MD Diagnosis: four times a day- patient does not want generic meds Last Documented On 6 1:34PM By Lurdes Loya ; [facility] [place] 7.5-325 MG OR TABS 05/11/2016 - 06/10/2016 Provi glenda: Cody Warren MD Diagnosis: Last Documented On 6 2:12PM By Ana Felder ; [facility], [facility] Liberty 5-325 MG Tablet 05/01/2016 - 05/31/2016 Provider : Cody Warren MD Diagnosis: twice a day prn for pain Last Documented On 6 4:10PM By Dr. Warren ; [facility], [facility] Liberty 5-325 MG Tablet 03/26/2016 - 04/25/2016 Provider : Cody Warren MD Diagnosis: twice a day prn for pain Last Documented On 6 2:07PM By Dr. Warren ; [facility], [facility] Ultram 50 MG Tablet 05/01/2015 - 05/07/2015 Provider: Blair Velazquez MD Diagnosis: 1 tab every 6 hrs prn pain Last Documented On 5 2:00PM By Allie Uribe ; [facility], [facility] Medications Administered Includes: Administered Medications from this encounter No Administered Medications Recorded Vital Signs Includes: Vital Signs from this encounter Vital Name 12/15/2023 03:17P Height (in) 68 Weight (lb) 232.6 Body Mass Index 35.4 Body Surface Area 2.2 Note: ct Last Documented: On 12/15/2023 3:18PM ; [facility], [facility] Results Includes: Results discussed during this encounter No Results Recorded For Specified Dates History of Present Illness Includes: History of Present Illness from this encounter PHYLICIA Solorzano is a 78 year old female. [...] Home Exercise - History of Injections 02/05/21-Right Facet/[id number]-C0 Medications used for this condition: Patient returns for routine follow up regarding her neck and lower back pains. She states as far as her spine is concerned she is doing very well. She had not have any symptoms. Does not feel like she requires anything further this point. She has had some facet blocks in the past. This seemed to have controlled her symptoms pretty well. Her biggest complaint for her today is that she has got a lot of swelling in the lower extremities. This is not associated with any chest pain or shortness of breath. Patient does not seem to have any spine issues. She is following up with her family physician regarding the leg swelling. I think it has causing a lot of discomfort in the feet in the lower legs. Social History Description Last Updated No recent change in diet 03/24/2021 Last Documented On 4 2:45PM ; [facility], [facility] Not using alcohol 03/24/2021 Last Documented On 4 2:45PM ; [facility], [facility] Not using drugs 03/24/2021 Last Documented On 4 2:45PM ; [facility], [facility] Not a current smoker. 03/24/2021 Last Documented On 4 2:45PM ; [facility], [facility] Caffeine use 09/13/2015 Last Documented On 4 2:45PM ; [facility] No tobacco use 09/13/2015 Last Documented On 4 2:45PM ; [facility], [facility] Not exercising regularly 09/13/2015 Last Documented On 4 2:45PM ; [facility], [facility] Smoking Status Unknown Procedures and Surgical History Includes: Procedures from this encounter Procedures Code Diagnosis Performing Provider Service L ocation Service Date use of tobacco assessment performed 1000F Last Documented On 4 2:45PM ; [facility], [facility] patient screened for future fall risk: documentation of any fall with injury in past year 1100F Last Documented On 4 2:45PM ; [facility], [facility] review of medications documented 1160F Last Documented On 4 2:45PM ; [facility], [facility] an X-ray was performed 2020 [facility] ~09/07/2023 [facility] @ [facility] ~09/07/2023 Neck @ [facility] [id number] Last Documented On 4 2:45PM ; [facility], [facility] an MRI was performed 2016 [facility] [id number] Last Documented On 4 2:45PM ; [facility], [facility] Surgical History Last Updated Past Surgical History: Breast reduction 10/22/2023 Last Documented On 4 2:45PM ; [facility], [facility] History of back surgery 08/11/2017 Last Documented On 4 2:45PM ; [facility], [facility] History of hysterectomy 09/13/2015 Last Documented On 4 2:45PM ; [facility], [facility] Medical History Includes: Medical History addressed during this encounter Description Last Updated No recent immunization for flu Last Documented On 4 2:45PM ; [facility], [facility] No recent immunization for pneumococcal pneumonia 03/24/2021 Last Documented On 4 2:45PM ; [facility], [facility] Arthritis 01/16/2021 Last Documented On 4 2:45PM ; [facility], [facility] Heartburn / Acid Reflux 01/16/2021 Last Documented On 4 2:45PM ; [facility], [facility] History of Cancer 01/16/2021 Last Documented On 4 2:45PM ; [facility], [facility] Hypertension 01/16/2021 Last Documented On 4 2:45PM ; [facility], [facility] breast reduction ~ACID REFLUX 08/11/2017 Last Documented On 4 2:45PM ; [facility], [facility] Arthritic joint problems 08/11/2017 Last Documented On 4 2:45PM ; [facility], [facility] Intermittent hypertension 08/11/2017 Last Documented On 4 2:45PM ; [facility], [facility] A recent injection 09/13/2015 Last Documented On 4 2:45PM ; [facility], [facility] History of depression 09/13/2015 Last Documented On 4 2:45PM ; [facility], [facility] Family History Includes: Family History addressed during this encounter Description Last Updated Diabetes mellitus 01/16/2021 Last Documented On 4 2:45PM ; [facility], [facility] Family history of cancer 01/16/2021 Last Documented On 4 2:45PM ; [facility], [facility] Family history of rheumatoid arthritis m other,SISTER 08/11/2017 Last Documented On 4 2:45PM ; [facility], [facility] Family history of heart disease sister 0 01/30/2016 Last Documented On 4 2:45PM ; [facility], [facility] Family history of diabetes mellitus lucinda ter/brother 09/13/2015 Last Documented On 4 2:45PM ; [facility], [facility] Family history of hypertension mother/si ster 09/13/2015 Last Documented On 4 2:45PM ; [facility], [facility] Review of Systems Includes: Review of Systems [...] rojas Last Documented On 4 2:59PM ; [facility], [facility] Latex Allergy 01/08/2015 Active Last Documented On 4 2:59PM ; [facility], [facility] Codeine and Related Allergy 01/08/2015 Active Last Documented On 4 2:59PM ; [facility], [facility] Encounters Encounter Provider Location Date Check-In Time Check-Out Time Diagnosis Follow Up MARGOT STOCKTON PA-C [facility] 4 2:37PM 3:27PM Overweight Insurance Includes: Active Insurance Policies Plan Name Member ID Group # Subscriber Relationship Effect rojas Dates 1 - Medicare Part B [facility] [id number] Sari Solorzano Self 02/27/2014 - Unknown 2 - [employer] [id number] Sari Solorzano Self 002 - Unknown Clinical Notes Includes: Clinical Notes from this encounter * Progress note Date Encounter Last Documented by 12/15/2023 Follow Up Last documented on 12/15/2023; 3:49 PM, MARGOT Zhang; [facility], [facility] Active Problems & Conditions - [...] Home Exercise - History of Injections 02/05/21-Right Facet/PESN2-5V0-V9 Medications used for this condition: Patient returns for routine follow up regarding her neck and lower back pains. She states as far as her spine is concerned she is doing very well. She had not have any symptoms. Does not feel like she requires anything further this point. She has had some facet blocks in the past. This seemed to have controlled her symptoms pretty well. Her biggest complaint for her today is that she has got a lot of swelling in the lower extremities. This is not associated with any chest pain or shortness of breath. Patient does not seem to have any spine issues. She is following up with her family physician regarding the leg swelling. I think it has causing a lot of discomfort in the feet in the lower legs. Current Medication - Carvedilol 3.125 MG Oral [...] diet. Caffeine use: Caffeine use. Tobacco use: No tobacco use. Alcohol: Not using alcohol. Drug Use: Not [...] allergic reaction. Physical Findings - Vitals taken 12/15/2023 03:[address] Height 68 in 59 - 78 Weight 232 lbs 9.6 oz 95 - 175 Body Mass Index 35.4 kg/m2 Body Surface Area 2.2 m2 Patient demonstrating decent mobility. She does have a little discomfort getting up and down. Standing or walking causes her some feet and lower leg pain but this is due to the swelling. The pain that she is having in the lumbar and cervical spines is no longer present. She has some stiffness with range of motion but other than that she is doing very well. Assessment - Overweight Cervical lumbar disc degeneration facet arthritis. Symptoms are currently controlled. Previous Tests Imaging: X-Ray: An X-ray was performed 2020 [facility] 09/07/2023 [facility] @ [facility] 09/07/2023 Neck @ [facility]. MRI Scan: An MRI was performed 2016 [facility]. Counseling/Education - Lose weight Plan Fall Risk [...] therapy has been discussed with the patient. At this time nothing further is needed for spine. She will have the swelling in her legs evaluated him. This does not appear to be coming from orthopedic problem. If she starts having some additional spine complaints she returned back to see us otherwise we will see her back on an as-needed basis. Notes This dictation was done with voice recognition software and may contain errors and omissions. Practice Management Use of tobacco assessment performed and patient screened for future fall risk documentation of any fall with injury in past year Review of medications documented. Care Team - Trevor Chappell DR Health Reminders - Assess BMI satisfied 12/15/2023. - Assess Tobacco Use satisfied 09/13/2015. - Follow Up Plan BMI Management satisfied 12/15/2023.
--- OUTSIDE RECORDS SUMMARY | 2025-07-18 07:14 | XMS_ITS | Clinical Summary ---
Author Organization [facility] , [facility] Address [address] [place] [address] Phone Care Team Providers Care Heater Tender Name Role Phone KATH ANMARGOT Randi Unavailable [phone] CODY WARREN MD Primary Care Provider [phone] Unavailable [phone] Reason for Visit and Chief Complaint Epidural Steroid Injection Problems Includes: Problems addressed during this encounter and other active Problems All Visits Onset Date Resolved Date Provider Condition S tatus Joint Pain Hip 09/13/2015 Meliton Tyler Active Last Documented On 6 10:37AM ; [facility] Pain in Lumbar Spine 01/08/2015 Blair Velazquez MD Active Last Documented On 5 2:25PM ; [facility] Plan of Treatment CERVICAL EPIDURAL WITHOUT FLUOROSCOPY Patient is awake alert oriented x3. In no acute distress. Flexion-extension cervical and lumbar spine very guarded secondary to pain. Deep tendon reflexes upper and lower extremities normal. Motor strength upper and lower extremities normal. There is no gross sensory deficit. Gait is antalgic. Patient requires Rollator for balance. Degenerative disc CERVICAL spine, multiple levels. CERVICAL radiculopathy. CERVICAL spondylosis. Multilevel CERVICAL facet arthropathy. We will plan a repeat CERVICAL epidural steroid injection today at the C6-7 level. Patient is unable to get onto the fluoroscopy table secondary to strength and mobility issues. We discussed doing the injection without fluoroscopy guidance. Patient wishes to proceed. I assured the patient have done many blind CERVICAL epidural steroid injections in the past as I have done many for them. Details of the procedure explained to the patient. The patient taken to procedure room placed in sitting position. The area with the posterior CERVICAL spine was cleansed using a chlorhexidine cleansing solution. Using a 25 gauge inch and half needle the skin and subcutaneous tissue was anesthetized at the C6-7 level. Using a 3-1/2 inch 20 gauge Touhy needle and a loss of resistance technique the CERVICAL epidural space at the C6-7 level was accessed with the ease. No blood or spinal fluid was noted coming from the needle. At this time after negative aspiration 1cc sodium chloride and 2cc 40mg of KENALOG was injected. Needle was removed. Band-Aid applied. Patient tolerated the procedure without difficulty. There no complications. Patient was discharged without incident. - Last Documented On 03/17/2024 2:39PM ; [facility] Assessments Includes: Assessments from this encounter No Assessments Recorded Medical Equipment - Implanted Devices Includes: Current Devices No Medical Equipment Recorded Medications Includes: Medications discussed during this encounter and other current Medications Current Medications (continue as prescribed) Urea 40% External Cream 10/08/2023 Provider: Diagnosis: Last Documented On 4 12:27PM By Radhames Castillo ; [facility] clonazePAM 0.5 MG Oral Tablet 10/05/2023 Provider: Trevor Chappell DR Diagnosis: Last Documented On 4 12:27PM By Radhames Castillo ; [facility] Thiamine HCl 100 MG Oral Tablet 10/04/2023 Provider: Desi Sanchez APRN Diagnosis: Last Documented On 4 12:27PM By Radhames Castillo ; [facility] Pregabalin 150 MG Oral Capsule 10/02/2023 Provider: Loy Dumont MD Diagnosis: Last Documented On 4 12:27PM By Radhames Castillo ; [facility] Omeprazole 40 MG Oral Capsule Delayed Release 09/28/19 Provider: Desi Jin PA-C Diagnosis: Last Documented On 4 12:27PM By Radhames Castillo ; [facility] Divalproex Sodium 250 MG Ora l Tablet Delayed Release 09/27/2023 Provider: Desi michaud APRN Diagnosis: Last Documented On 4 12:27PM By Radhames Castillo ; [facility] Carvedilol 3.125 MG Oral Tablet 09/24/2023 Provider: Desi Sanchez APRN Diagnosis: Last Documented On 4 12:27PM By Radhames Castillo ; [facility] Loratadine 10 MG Oral Tablet 09/24/2023 Provider: Desi Sanchez APRN Diagnosis: Last Documented On 4 12:27PM By Radhames Castillo ; [facility] QUEtiapine Fumarate 25 MG Or al Tablet 09/14/2023 Provider: Desi michaud APRN Diagnosis: Last Documented On 4 12:27PM By Radhames Castillo ; [facility] Medications Administered Includes: Administered Medications from this encounter No Administered Medications Recorded Results Includes: Results discussed during this encounter No Results Recorded For Specified Dates History of Present Illness Includes: History of Present Illness from this encounter No History of Present Illness Recorded Social History No Social History Recorded - Smoking Status Unknown Medical History Includes: Medical History addressed during this encounter No Medical History Recorded Family History Includes: Family History addressed during this encounter No Family History Recorded Review of Systems Includes: Review of Systems from this encounter No Review of Systems Recorded Mental Status Includes: Mental Status from this encounter No Mental Status Recorded Functional Status Includes: Functional Status from this encounter No Functional Status Recorded Physical Exam Includes: Physical Exam from this encounter No Physical Exam Recorded Allergies Includes: Active Allergies Substance Type Reaction Onset Date Resolved Date Statu s Naproxen Sodium Allergy 01/08/2015 Act rojas Last Documented On 4 2:59PM ; [facility] Latex Allergy 01/08/2015 Active Last Documented On 4 2:59PM ; [facility] Codeine and Related Allergy 01/08/2015 Active Last Documented On 4 2:59PM ; [facility] Encounters Encounter Provider Location Date Check-In Time Check-Out Time Diagnosis Epidural Steroid Injection Brock Patton [facility] 03/09/20 24 2:56PM 3:43PM Insurance Includes: Active Insurance Policies Plan Name Member ID Group # Subscriber Relationship Effect rojas Dates 1 - Medicare Part B [facility] [id number] Sari Solorzano Self 02/27/2014 - Unknown 2 - [employer] [id number] Sari Solorzano Self 002 - Unknown Clinical Notes Includes: Clinical Notes from this encounter * Progress note Date Encounter Last Documented by 03/09/2024 Epidural Steroid Injection Last documented on 03/17/2024; 2:39 PM, Brock Patton MILIEU COUNSELOR; [facility] Plan CERVICAL EPIDURAL WITHOUT FLUOROSCOPY Patient is awake alert oriented x3. In no acute distress. Flexion-extension cervical and lumbar spine very guarded secondary to pain. Deep tendon reflexes upper and lower extremities normal. Motor strength upper and lower extremities normal. There is no gross sensory deficit. Gait is antalgic. Patient requires Rollator for balance. Degenerative disc CERVICAL spine, multiple levels. CERVICAL radiculopathy. CERVICAL spondylosis. Multilevel CERVICAL facet arthropathy. We will plan a repeat CERVICAL epidural steroid injection today at the C6-7 level. Patient is unable to get onto the fluoroscopy table secondary to strength and mobility issues. We discussed doing the injection without fluoroscopy guidance. Patient wishes to proceed. I assured the patient have done many blind CERVICAL epidural steroid injections in the past as I have done many for them. Details of the procedure explained to the patient. The patient taken to procedure room placed in sitting position. The area with the posterior CERVICAL spine was cleansed using a chlorhexidine cleansing solution. Using a 25 gauge inch and half needle the skin and subcutaneous tissue was anesthetized at the C6-7 level. Using a 3-1/2 inch 20 gauge Touhy needle and a loss of resistance technique the CERVICAL epidural space at the C6-7 level was accessed with the ease. No blood or spinal fluid was noted coming from the needle. At this time after negative aspiration 1cc sodium chloride and 2cc 40mg of KENALOG was injected. Needle was removed. Band-Aid applied. Patient tolerated the procedure without difficulty. There no complications. Patient was discharged without incident. Notes This dictation was done with voice recognition software and may contain errors and omissions.
--- OUTSIDE RECORDS SUMMARY | 2025-07-18 07:15 | XMS_ITS | Clinical Summary ---
Author Organization [facility] Address [address] [place] [address] Phone Care Team Providers Care Financial Services Technician Name Role Phone Unavailable Primary Care [...] Orientation Not on file Plan of Treatment Health Maintenance Due Date Last Done Comments Wellness Exam Medicare 1948 Hepatitis C Screening 1965 DTaP/TDaP/Td (1 - Tdap) 1966 Pneumococcal Vaccine 50+ (1 of 1 - PCV) 1997 Zoster (1 of 2) 1997 Bone Density Screening 2012 RSV or 60+ (1 - 1-d ose 75+ series) 2022 COVID-19 Vaccine ( - 2024-2 6 season) 2025 Influenza Vaccine (#1) 2025 Hepatitis B Vaccine Aged Out No longe r eligible based on patient's age to complete this topic Meningococcal B Vaccine Aged Out No l onger eligible based on patient's age to complete this topic Insurance [facility] MEDIC[place] [address]
--- OUTSIDE RECORDS SUMMARY | 2025-07-18 07:15 | XMS_ITS ---
Author Organization [facility] , [facility] Address [address] [address] Phone Care Team Providers Care Crnp Name Role Phone MARGOT STOCKTON PA-C Unavailable [phone] CODY WARREN MD Primary Care Provider [phone] Unavailable [phone] Reason for Referral Date Encounter Description Provider Reason for Referral 09/07/23 Follow Up MARGOT STOCKTON PA-C Referral To Physician - see pcp for bp 03/24/21 Follow Up Cody Warren MD Referral To Physician - see pcp for bp 01/16/21 Follow Up Cody Warren MD Referral To Physician - see pcp for bp Problems Includes: Active, inactive, and resolved Problems All Visits Onset Date Resolved Date Provider Condition S tatus Joint Pain Hip 09/13/2015 Meliton Tyler Active Last Documented On 6 10:37AM ; [facility] Pain in Lumbar Spine 01/08/2015 Blair Velazquez MD Active Last Documented On 5 2:25PM ; [facility] Plan of Treatment Pending Tests Order Diagnosis Results Due Ordering P rovider Lab Orders - HL Pre-Op PTT Sacroilii tis, not elsewhere classified 05/25/16 Cody Warren MD Last Documented On 6 2:19PM ; [facility] Lab Orders - HL Pre-Op PT INR Sacroilii tis, not elsewhere classified 05/25/16 Cody Warren MD Last Documented On 6 2:19PM ; [facility] Lab Orders - HL Pre-Op CMP Sacroilii tis, not elsewhere classified 05/25/16 Cody Warren MD Last Documented On 6 2:19PM ; [facility] Lab Orders - HL Pre-Op Clean Catch UA Sacroiliitis, not elsewhere classified 05/25/16 Cody Warren MD Last Documented On 6 2:19PM ; [facility] Lab Orders - HL Pre-Op CBC with DIFF Sacroiliitis, not elsewhere classified 05/25/16 Cody Warren MD Last Documented On 6 2:19PM ; [facility] Lab Orders - HL Pre-Op BMP Sacroilii tis, not elsewhere classified 05/25/16 Cody Warren MD Last Documented On 6 2:19PM ; [facility] Instructions to patient Lose weight Last Documented On 4 2:59PM ; [facility] Lose weight Last Documented On 4 2:45PM ; [facility] Lose weight Last Documented On 4 2:26PM ; [facility] Lose weight Last Documented On 4 1:25PM ; [facility] Lose weight Last Documented On 1 8:49AM ; [facility] Lose weight Last Documented On 1 11:25AM ; [facility] Instructions for patient see pcp for weight and bp mgmt Last Documented On 8 8:51AM ; [facility] Lose weight Last Documented On 8 8:51AM ; [facility] Instructions for patient see pcp for weight and bp mgmt Last Documented On 7 8:52AM ; [facility] Lose weight Last Documented On 7 8:52AM ; [facility] Instructions for patient see pcp for weight and bp mgmt Last Documented On 7 2:42PM ; [facility] Lose weight Last Documented On 7 2:42PM ; [facility] Instructions for patient see pcp for weight and bp mgmt Last Documented On 7 2:08PM ; [facility] Lose weight Last Documented On 7 2:08PM ; [facility] Instructions for patient see pcp for weight and bp mgmt Last Documented On 7 12:54PM ; [facility] Lose weight Last Documented On 7 12:54PM ; [facility] Instructions for patient see pcp for weight and bp mgmt Last Documented On 7 11:29AM ; [facility] Lose weight Last Documented On 7 11:29AM ; [facility] Instructions for patient see pcp for weight and bp mgmt Last Documented On 6 2:53PM ; [facility] Lose weight Last Documented On 6 2:53PM ; [facility] Instructions for patient see pcp for weight and bp mgmt Last Documented On 6 1:02PM ; [facility] Lose weight Last Documented On 6 1:02PM ; [facility] Instructions for patient see pcp for weight and bp mgmt Last Documented On 6 1:39PM ; [facility] Lose weight Last Documented On 6 1:39PM ; [facility] Instructions for patient see pcp for weight and bp mgmt Last Documented On 6 1:33PM ; [facility] Lose weight Last Documented On 6 1:51PM ; [facility] Instructions for patient see pcp for weight and bp mgmt Last Documented On 6 2:19PM ; [facility] Instructions for patient see pcp for weight and bp mgmt Last Documented On 6 11:38AM ; [facility] Instructions for patient See PCP for weight management and elevated blood pressure Last Documented On 6 10:41AM ; [facility] Lose weight see pcp for weig ht loss plan Last Documented On 6 10:39AM ; [facility] Instructions for patient Last Documented On 5 1:37PM ; [facility] Weight management Last Documented On 5 1:37PM ; [facility] Lose weight see pcp for weig ht loss plan Last Documented On 5 1:37PM ; [facility] Instructions for patient Last Documented On 5 9:18AM ; [facility] Weight management Last Documented On 5 9:18AM ; [facility] Lose weight see pcp for weig ht loss plan Last Documented On 5 9:18AM ; [facility] Instructions for patient Last Documented On 5 2:39PM ; [facility] Weight management Last Documented On 5 2:39PM ; [facility] Lose weight see pcp for weig ht loss plan Last Documented On 5 2:39PM ; [facility] Assessments Includes: Assessments for all patient encounters Findings Encounter Date Overweight Follow Up with MARGOT STOCKTON PA -C 03/09/2024 Last Documented On 4 3:58PM ; [facility] Overweight Follow Up with MARGOT STOCKTON PA -C 12/15/2023 Last Documented On 4 3:49PM ; [facility] Overweight Follow Up with MARGOT STOCKTON PA -C 10/21/2023 Last Documented On 4 12:30PM ; [facility] Overweight Follow Up with MARGOT STOCKTON PA -C 09/07/2023 Last Documented On 4 7:47AM ; [facility] Instructions Includes: Instructions for all patient encounters Instructions to patient Lose weight Last Documented On 4 2:59PM ; [facility] Lose weight Last Documented On 4 2:45PM ; [facility] Lose weight Last Documented On 4 2:26PM ; [facility] Lose weight Last Documented On 4 1:25PM ; [facility] Lose weight Last Documented On 1 8:49AM ; [facility] Lose weight Last Documented On 1 11:25AM ; [facility] Instructions for patient see pcp for weight and bp mgmt Last Documented On 8 8:51AM ; [facility] Lose weight Last Documented On 8 8:51AM ; [facility] Instructions for patient see pcp for weight and bp mgmt Last Documented On 7 8:52AM ; [facility] Lose weight Last Documented On 7 8:52AM ; [facility] Instructions for patient see pcp for weight and bp mgmt Last Documented On 7 2:42PM ; [facility] Lose weight Last Documented On 7 2:42PM ; [facility] Instructions for patient see pcp for weight and bp mgmt Last Documented On 7 2:08PM ; [facility] Lose weight Last Documented On 7 2:08PM ; [facility] Instructions for patient see pcp for weight and bp mgmt Last Documented On 7 12:54PM ; [facility] Lose weight Last Documented On 7 12:54PM ; [facility] Instructions for patient see pcp for weight and bp mgmt Last Documented On 7 11:29AM ; [facility] Lose weight Last Documented On 7 11:29AM ; [facility] Instructions for patient see pcp for weight and bp mgmt Last Documented On 6 2:53PM ; [facility] Lose weight Last Documented On 6 2:53PM ; [facility] Instructions for patient see pcp for weight and bp mgmt Last Documented On 6 1:02PM ; [facility] Lose weight Last Documented On 6 1:02PM ; [facility] Instructions for patient see pcp for weight and bp mgmt Last Documented On 6 1:39PM ; [facility] Lose weight Last Documented On 6 1:39PM ; [facility] Instructions for patient see pcp for weight and bp mgmt Last Documented On 6 1:33PM ; [facility] Lose weight Last Documented On 6 1:51PM ; [facility] Instructions for patient see pcp for weight and bp mgmt Last Documented On 6 2:19PM ; [facility] Instructions for patient see pcp for weight and bp mgmt Last Documented On 6 11:38AM ; [facility] Instructions for patient See PCP for weight management and elevated blood pressure Last Documented On 6 10:41AM ; [facility] Lose weight see pcp for weig ht loss plan Last Documented On 6 10:39AM ; [facility] Instructions for patient Last Documented On 5 1:37PM ; [facility] Weight management Last Documented On 5 1:37PM ; [facility] Lose weight see pcp for weig ht loss plan Last Documented On 5 1:37PM ; [facility] Instructions for patient Last Documented On 5 9:18AM ; [facility] Weight management Last Documented On 5 9:18AM ; [facility] Lose weight see pcp for weig ht loss plan Last Documented On 5 9:18AM ; [facility] Instructions for patient Last Documented On 5 2:39PM ; [facility] Weight management Last Documented On 5 2:39PM ; [facility] Lose weight see pcp for weig ht loss plan Last Documented On 5 2:39PM ; [facility] Medical Equipment - Implanted Devices Includes: Current and historical Devices No Medical Equipment Recorded Medications Includes: Current and historical Medications Current Medications (continue as prescribed) Urea 40% External Cream 10/08/2023 Provider: Diagnosis: Last Documented On 4 12:27PM By Radhames [facility] clonazePAM 0.5 MG Oral Tablet 10/05/2023 Provider: Trevor Chappell DR Diagnosis: Last Documented On 4 12:27PM By Radhames Stockton ; [facility] Thiamine HCl 100 MG Oral Tablet 10/04/2023 Provider: Desi Sanchez APRN Diagnosis: Last Documented On 4 12:27PM By Radhames Stockton ; [facility] Pregabalin 150 MG Oral Capsule 10/02/2023 Provider: Loy Dumont MD Diagnosis: Last Documented On 4 12:27PM By Radhames Stockton ; [facility] Omeprazole 40 MG Oral Capsule Delayed Release 09/28/19 Provider: Desi Jin PA-C Diagnosis: Last Documented On 4 12:27PM By Radhames Stockton ; [facility] Divalproex Sodium 250 MG Ora l Tablet Delayed Release 09/27/2023 Provider: Desi michaud APRN Diagnosis: Last Documented On 4 12:27PM By Radhames Stockton ; [facility] Carvedilol 3.125 MG Oral Tablet 09/24/2023 Provider: Desi Sanchez APRN Diagnosis: Last Documented On 4 12:27PM By Radhames Stockton ; [facility] Loratadine 10 MG Oral Tablet 09/24/2023 Provider: Desi Sanchez APRN Diagnosis: Last Documented On 4 12:27PM By Radhames Stockton ; [facility] QUEtiapine Fumarate 25 MG Or al Tablet 09/14/2023 Provider: Desi michaud APRN Diagnosis: Last Documented On 4 12:27PM By Radhames Stockton ; [facility] Past Medications on file HYDROcodone-Acetaminophen 5- 325 MG Oral Tablet 05/06/2021 - 05/20/2021 Provider: Cody Warren MD Diagnosis: Up to twice a day, must last at least 3 weeks Last Documented On 1 2:51PM By Dr. Warren ; [facility] HYDROcodone-Acetaminophen 5- 325 MG Oral Tablet 03/31/2021 - 04/14/2021 Provider: Cody Warren MD Diagnosis: Up to twice a day, must last at least 3 weeks Last Documented On 1 4:49PM By Dr. Warren ; [facility] HYDROcodone-Acetaminophen 5- 325 MG Oral Tablet 03/24/2021 - 04/07/2021 Provider: Cody Warren MD Diagnosis: Take PO twice a day Last Documented On 1 9:15AM By Dr. Warren ; [facility] HYDROcodone-Acetaminophen 5- 325 MG Oral Tablet 02/28/2021 - 03/14/2021 Provider: Cody Warren MD Diagnosis: Take PO twice a day Last Documented On 1 2:38PM By Dr. Warren ; [facility] HYDROcodone-Acetaminophen 5- 325 MG Oral Tablet 01/22/2021 - 02/05/2021 Provider: Cody Warren MD Diagnosis: Take PO twice a day Last Documented On 1 1:31PM By Dr. Warren ; [facility] HYDROcodone-Acetaminophen 5- 325 MG Oral Tablet 01/22/2021 - 02/05/2021 Provider: Cody Warren MD Diagnosis: twice a day Last Documented On 1 1:27PM By Dr. Warren ; [facility] Lisinopril 2.5 MG Oral Tablet 01/10/2021 - 02/10/2021 Provider: LAURE CORTES MD Diagnosis: Last Documented On 4 12:24PM By Radhames Stockton ; [facility] Potassium Chloride Marie ER 1 0 MEQ Oral Tablet Extended Release 01/10/2021 - 02/10/2021 Provider: LAURE CORTES MD Diagnosis: Last Documented On 4 12:24PM By Radhames Stockton ; [facility] Aspirin Low Dose 81 MG Oral Tablet Delayed Release 01/10/2021 - 02/10/2021 Provider: LAURE CORTES MD Diagnosis: Last Documented On 4 12:24PM By Radhames Stockton ; [facility] [place] Carbonate 300 MG Oral Capsule 12/16/2020 - Provider: Diagnosis: Last Documented On 4 12:24PM By Radhames Stockton ; [facility] Metoprolol Tartrate 50 MG Or al Tablet 12/05/2020 - 01/04/2021 Provider: LAURE CORTES MD Diagnosis: Last Documented On 4 12:24PM By Radhames Stockton ; [facility] B-12 1000 MCG Oral Tablet Ex tended Release 11/07/2020 - 12/08/2020 Provider: LAURE CORTES MD Diagnosis: Last Documented On 4 12:24PM By Radhames Stockton ; [facility] Furosemide 20MG Oral Tablet 07/10/2018 - 08/09/2018 Pr ovider: LAURE CORTES MD Diagnosis: Last Documented On 4 12:25PM By Radhames Stockton ; [facility] LamoTRIgine 150MG Oral Tablet 07/04/2018 - 08/03/2018 Provider: Diagnosis: Last Documented On 4 12:25PM By Radhames Stockton ; [facility] QUEtiapine Fumarate 25MG Oral Tablet 07/04/2018 - 12/2017 Provider: Diagnosis: Last Documented On 4 12:25PM By Radhames Stockton ; [facility] Ondansetron HCl Powder 06/30/2018 - 07/04/2018 Provide r: SAMSON MARTÍNEZ MD () Diagnosis: Last Documented On 4 12:25PM By Radhames Stockton ; [facility] Amoxicillin-Pot Clavulanate Powder 06/21/2018 - 2017 Provider: LAURE CORTES MD Diagnosis: Last Documented On 4 12:25PM By Radhames Stockton ; [facility] EQ Omeprazole Magnesium 20MG Oral Capsule Delayed Release 06/21/2018 - 07/22/2018 Provider: SAMSON MARTÍNEZ MD () Diagnosis: Last Documented On 4 12:25PM By Radhames Stockton ; [facility] LamoTRIgine 150MG Oral Tablet 06/21/2018 - 07/22/2018 Provider: Diagnosis: Last Documented On 4 12:25PM By Radhames Stockton ; [facility] QUEtiapine Fumarate 50MG Oral Tablet 06/21/2018 - 07/01 Provider: Diagnosis: Last Documented On 4 12:25PM By Radhames Stockton ; [facility] Metoprolol Succinate ER 50MG Oral Tablet Extended Release 24 Hour 06/20/2018 - 07/21/2018 Provider: LAURE CORTES MD Diagnosis: Last Documented On 4 12:25PM By Radhames Stockton ; [facility] PredniSONE 2.5MG Oral Tablet 06/16/2018 - 06/21/2018 Kika pardo: SAMSON MARTÍNEZ MD () Diagnosis: Last Documented On 4 12:25PM By Radhames Stockton ; [facility] [place] 7.5-325MG Oral Tablet 10/18/2017 - 11/15/2017 Pr ovider: Cody Warren MD Diagnosis: twice a day-must last at [address] [facility] 30 days., Cannot keep you on long-term narcotic medication, Last Documented On 4 12:25PM By Radhames Stockton ; [facility] [place] 7.5-325MG Oral Tablet 08/11/2017 - 09/11/2017 Pr ovider: Cody Warren MD Diagnosis: twice a day-must last at [address] [facility] 30 days., Cannot keep you on long-term narcotic medication, Last Documented On 4 12:25PM By Radhames Stockton ; [facility] LamoTRIgine 100MG Oral Tablet 07/27/2017 - 08/16/2017 Provider: Diagnosis: Last Documented On 4 12:25PM By Radhames Stockton ; [facility] Furosemide 20MG Oral Tablet 07/20/2017 - 08/19/2017 Pr ovider: LAURE CORTES MD Diagnosis: Last Documented On 4 12:25PM By Radhames Stockton ; [facility] Nortriptyline HCl 25MG Oral Capsule 05/15/2017 - 06/14 Provider: LAURE CORTES MD Diagnosis: Last Documented On 4 12:26PM By Radhames Stockton ; [facility] Neurontin 100MG Oral Capsule , conventional 05/06/2017 - 06/05/2017 Provider: Cody Warren MD Diagnosis: three times a day Last Documented On 7 10:45AM By Dr. Warren ; [facility] Gabapentin 100MG Oral Capsule 05/06/2017 - 06/05/2017 Provider: CODY WARREN MD Diagnosis: Last Documented On 4 12:26PM By Radhames Stockton ; [facility] [place] 7.5-325MG Oral Tablet 05/06/2017 - 06/05/2017 Pr ovider: Cody Warren MD Diagnosis: twice a day-must last at [address] [facility] 30 days., Cannot keep you on long-term narcotic medication, [place] update Last Documented On 4 12:26PM By Radhames Stockton ; [facility] QUEtiapine Fumarate 100MG Oral Tablet 05/01/2017 - 09/2016 Provider: Diagnosis: Last Documented On 4 12:26PM By Radhames Stockton ; [facility] Triamcinolone Acetonide 0.1% External Cream 05/01/2017 - 05/31/2017 Provider: Diagnosis: Last Documented On 4 12:26PM By Radhames Stockton ; [facility] Omeprazole 20MG Oral Capsule Delayed Release 04/16/2017 - 05/17/2017 Provider: LAURE CORTES MD Diagnosis: Last Documented On 4 12:26PM By Radhames Stockton ; [facility] Neurontin 100 MG Capsule 03/22/2017 - 04/21/2017 Provi glenda: Cody Warren MD Diagnosis: three times a day Last Documented On 7 3:01PM By Renee Ritchie ; [facility] [place] 7.5-325 MG Tablet 03/22/2017 - 04/21/2017 Provid er: Cody Warren MD Diagnosis: three times a day-prn Last Documented On 7 3:01PM By Renee Ritchie ; [facility] [place] 7.5-325 MG Tablet 11/18/2016 - 12/18/2016 Provid er: Cody Warren MD Diagnosis: three times a day-prn Last Documented On 7 3:59PM By Dr. Warren ; [facility] [place] 7.5-325 MG Tablet 09/10/2016 - 10/10/2016 Provid er: Cody Warren MD Diagnosis: three times a day-prn Last Documented On 7 11:41AM By Lurdes Loya ; [facility] [place] 7.5-325 MG Tablet 07/30/2016 - 08/29/2016 Provid er: Meliton Castelan MD Diagnosis: three times a day Last Documented On 6 3:26PM By Lurdes Loya ; [facility] [place] 7.5-325 MG Tablet 07/13/2016 - 08/12/2016 Provid er: Cody Warren MD Diagnosis: Last Documented On 6 11:32AM By Dr. Warren ; [facility] Percocet 7.5-325 MG Tablet 06/25/2016 - 07/10/2016 Pro vider: Saulo Helton MD Diagnosis: four times a day- patient does not want generic meds Last Documented On 6 1:34PM By Lurdes Loya ; [facility] [place] 7.5-325 MG OR TABS 05/11/2016 - 06/10/2016 Provi glenda: Cody Warren MD Diagnosis: Last Documented On 6 2:12PM By Ana Felder ; [facility] [place] 5-325 MG Tablet 05/01/2016 - 05/31/2016 Provider : Cody Warren MD Diagnosis: twice a day prn for pain Last Documented On 6 4:10PM By Dr. Warren ; [facility] [place] 5-325 MG Tablet 03/26/2016 - 04/25/2016 Provider : Cody Warren MD Diagnosis: twice a day prn for pain Last Documented On 6 2:07PM By Dr. Warren ; [facility] Ultram 50 MG Tablet 05/01/2015 - 05/07/2015 Provider: Blair Velazquez MD Diagnosis: 1 tab every 6 hrs prn pain Last Documented On 5 2:00PM By Allie Uribe ; [facility] Atorvastatin Calcium 20 MG Tablet 01/08/2015 - 015 Provider: Diagnosis: Last Documented On 4 12:26PM By Radhames Stockton ; [facility] Isosorbide Mononitrate ER 30 MG Tablet, extended-release 24 hour 01/08/2015 - 02/08/2015 Provider: Diagnosis: Last Documented On 4 12:26PM By Radhames Stockton ; [facility] Gabapentin 800 MG Tablet 01/08/2015 - 02/08/2015 Provi glenda: Diagnosis: Last Documented On 4 12:26PM By Radhames Stockton ; [facility] Desoximetasone 0.25 % Cream 01/08/2015 - 02/08/2015 Pr ovider: Diagnosis: Last Documented On 4 12:26PM By Radhames Stockton ; [facility] PriLOSEC 10 MG Capsule, delayed-release 01/08/2015 - 0 02/08/2015 Provider: Diagnosis: Last Documented On 4 12:26PM By Radhames Stockton ; [facility] Zolpidem Tartrate 10 MG Tablet 01/08/2015 - 02/08/2015 Provider: Diagnosis: Last Documented On 4 12:24PM By Radhames Stockton ; [facility] Escitalopram Oxalate 10 MG Tablet 01/08/2015 - 015 Provider: Diagnosis: Last Documented On 4 12:26PM By Radhames Stockton ; [facility] Glycopyrrolate 2 MG Tablet 01/08/2015 - 02/08/2015 Pro vider: Diagnosis: Last Documented On 4 12:26PM By Radhames Stockton ; [facility] Metoprolol Tartrate 25 MG Tablet 01/08/2015 - 02/09/20 15 Provider: Diagnosis: Last Documented On 4 12:26PM By Radhames Stockton ; [facility] TraMADol HCl 50 MG Tablet 01/08/2015 - 02/08/2015 Prov ider: Diagnosis: Last Documented On 4 12:26PM By Radhames Stockton ; [facility] TraZODone HCl 100 MG Tablet 01/08/2015 - 02/08/2015 Pr ovider: Diagnosis: Last Documented On 4 12:26PM By Radhames Stockton ; [facility] Medications Administered Includes: Administered Medications in patient's chart No Administered Medications Recorded Results Includes: Results from 07/18/2024 through 07/18/2025 No Results Recorded For Specified Dates History of Present Illness History of Present Illness not supported for this document type No History of Present Illness Recorded Social History Description Last Updated Tobacco non-user 10/22/2023 Last Documented On 4 12:30PM ; [facility] No recent change in diet 10/22/2023 Last Documented On 4 12:30PM ; [facility] Not a current smoker. 10/22/2023 Last Documented On 4 12:30PM ; [facility] No recent change in diet 03/24/2021 Last Documented On 1 11:59AM ; [facility] Not using alcohol 03/24/2021 Last Documented On 1 11:59AM ; [facility] Not using drugs 03/24/2021 Last Documented On 1 11:59AM ; [facility] Not a current smoker. 03/24/2021 Last Documented On 1 11:59AM ; [facility] Non-smoker 01/16/2021 Last Documented On 1 10:57AM ; [facility] Caffeine use 09/13/2015 Last Documented On 6 8:26AM ; [facility] [facility] No tobacco use 09/13/2015 Last Documented On 6 8:26AM ; [facility] Not a current smoker 09/13/2015 Last Documented On 6 8:26AM ; [facility] Not exercising regularly 09/13/2015 Last Documented On 6 8:26AM ; [facility] Smoking status : Never smoker 09/13/2015 Last Documented On 6 8:26AM ; [facility], [facility] Procedures and Surgical History Surgical History Last Updated Past Surgical History: Breast reduction 10/22/2023 Last Documented On 4 12:30PM ; [facility] History of back surgery 08/11/2017 Last Documented On 7 8:02AM ; [facility] History of hysterectomy 09/13/2015 Last Documented On 6 8:26AM ; [facility] Medical History Includes: Medical History in patient's chart Description Last Updated No recent immunization for flu 1 Last Documented On 1 11:59AM ; [facility] No recent immunization for pneumococcal pneumonia 03/24/2021 Last Documented On 1 11:59AM ; [facility] Arthritis 01/16/2021 Last Documented On 1 10:57AM ; [facility] Heartburn / Acid Reflux 01/16/2021 Last Documented On 1 10:57AM ; [facility] History of Cancer 01/16/2021 Last Documented On 1 10:57AM ; [facility] Hypertension 01/16/2021 Last Documented On 1 10:57AM ; [facility] Hysterectomy 01/16/2021 Last Documented On 1 10:57AM ; [facility] breast reduction ~ACID REFLUX 08/11/2017 Last Documented On 7 8:02AM ; [facility] Arthritic joint problems 08/11/2017 Last Documented On 7 8:02AM ; [facility] Intermittent hypertension 08/11/2017 Last Documented On 7 8:02AM ; [facility] A recent injection 09/13/2015 Last Documented On 6 8:26AM ; [facility] History of depression 09/13/2015 Last Documented On 6 8:26AM ; [facility] Family History Includes: Family History in patient's chart Description Last Updated Diabetes mellitus 01/16/2021 Last Documented On 1 10:57AM ; [facility] Family history of cancer 01/16/2021 Last Documented On 1 10:57AM ; [facility], [facility] Family history of rheumatoid arthritis m other,SISTER 08/11/2017 Last Documented On 7 8:02AM ; [facility] Family history of heart disease sister 0 01/30/2016 Last Documented On 6 1:22PM ; [facility] Family history of diabetes mellitus lucinda ter/brother 09/13/2015 Last Documented On 6 8:26AM ; [facility] Family history of hypertension mother/si ster 09/13/2015 Last Documented On 6 8:26AM ; [facility] Review of Systems Review of Systems not supported for this document type No Review of Systems Recorded Mental Status Description Anxiety Functional Status No Functional Status Recorded Physical Exam Physical Exam not supported for this document type No Physical Exam Recorded Allergies Includes: Active, inactive, and resolved Allergies Substance Type Reaction Onset Date Resolved Date Statu s Naproxen Sodium Allergy 01/08/2015 Act rojas Last Documented On 4 2:59PM ; [facility] Latex Allergy 01/08/2015 Active Last Documented On 4 2:59PM ; [facility] Codeine and Related Allergy 01/08/2015 Active Last Documented On 4 2:59PM ; [facility] Insurance Includes: Active Insurance Policies Plan Name Member ID Group # Subscriber Relationship Effect rojas Dates 1 - Medicare Part B [facility] [id number] Sari Solorzano Self 02/27/2014 - Unknown 2 - [employer] [id number] Sari Solorzano Self 002 - Unknown Clinical Notes Includes: Signed Clinical Notes starting from 08/13/2022 No Clinical Notes Recorded
--- OUTSIDE RECORDS SUMMARY | 2025-07-18 07:15 | XMS_ITS | Clinical Summary ---
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 Name Role Phone MARGOT STOCKTON PA-C Unavailable [phone] CODY WARREN MD Primary Care Provider [phone] Unavailable [phone] Reason for Visit and Chief Complaint facet Problems Includes: Problems addressed during this encounter and other active Problems All Visits Onset Date Resolved Date Provider Condition S tatus Joint Pain Hip 09/13/2015 Meliton Tyler Active Last Documented On 6 10:37AM ; [facility], [facility] Pain in Lumbar Spine 01/08/2015 Blair Velazquez MD Active Last Documented On 5 2:25PM ; [facility], [facility] Plan of Treatment No Plan of Treatment Recorded Assessments Includes: Assessments from this encounter No Assessments Recorded Medical Equipment - Implanted Devices Includes: Current Devices No Medical Equipment Recorded Medications Includes: Medications discussed during this encounter and other current Medications Current Medications (continue as prescribed) Urea 40% External Cream 10/08/2023 Provider: Diagnosis: Last Documented On 4 12:27PM By Radhames Stockton ; [facility] clonazePAM 0.5 MG Oral Tablet 10/05/2023 Provider: Trevor Chappell DR Diagnosis: Last Documented On 4 12:27PM By Radhames Stockton ; [facility] Thiamine HCl 100 MG Oral Tablet 10/04/2023 Provider: Desi Quiana Laura HUMANITIES TEACHER Diagnosis: Last Documented On 4 12:27PM By Radhames Stockton ; [facility] Pregabalin 150 MG Oral Capsule 10/02/2023 Provider: Loy Dumont MD Diagnosis: Last Documented On 4 12:27PM By Radhames Stockton ; [facility] Omeprazole 40 MG Oral Capsule Delayed Release 09/28/19 Provider: Desi Jin PA-C Diagnosis: Last Documented On 4 12:27PM By Radhames Stockton ; [facility] Divalproex Sodium 250 MG Ora l Tablet Delayed Release 09/27/2023 Provider: Desi michaud HUMANITIES TEACHER Diagnosis: Last Documented On 4 12:27PM By Radhames Stockton ; [facility] Carvedilol 3.125 MG Oral Tablet 09/24/2023 Provider: Desi Sanchez APRN Diagnosis: Last Documented On 4 12:27PM By Radhames Stockton ; [facility] Loratadine 10 MG Oral Tablet 09/24/2023 Provider: Desi Sanchez APRN Diagnosis: Last Documented On 4 12:27PM By Radhames Stockton ; [facility] QUEtiapine Fumarate 25 MG Or al Tablet 09/14/2023 Provider: Desi michaud HUMANITIES TEACHER Diagnosis: Last Documented On 4 12:27PM By Radhames Stockton ; [facility] Medications Administered Includes: Administered Medications [...] rojas Last Documented On 4 2:59PM ; [facility] Latex Allergy 01/08/2015 Active Last Documented On 4 2:59PM ; [facility] Codeine and Related Allergy 01/08/2015 Active Last Documented On 4 2:59PM ; [facility] Encounters Encounter Provider Location Date Check-In Time Check- Out Time Diagnosis facet Brock Patton CRNA [facility] 4 12:44PM 1:26PM Insurance Includes: Active Insurance Policies Plan Name Member ID Group # Subscriber Relationship Effect rojas Dates 1 - Medicare Part B [facility] [id number] Sari Solorzano Self 02/27/2014 - Unknown 2 - [employer] [id number] Sari Solorzano Self 002 - Unknown Clinical Notes Includes: Clinical Notes from this encounter No Clinical Notes Recorded
--- OUTSIDE RECORDS SUMMARY | 2025-07-18 07:15 | XMS_ITS ---
Care Plan - [facility], [facility] Created on: July 18, 2025 Sari Solorzano : 1945 Sex: Female Author Organization [facility] Address [address] [place] [address] Phone Care Team Providers Care Machine Load Clerk Name Role Phone KATH AN, MARGOT Bryan Unavailable [phone] KELVIN CRUZ, CODY Primary Care Provider [phone] Unavailable [phone]
[2025-07-18 07:25] LABS: Hematocrit 34.2 % (37.0-47.0); Hemoglobin 11.0 g/dL (12.2-16.2); Immature Granulocytes % 0 %; Mean Corpuscular HGB Conc 32.2 g/dL (31.8-35.4); Mean Corpuscular Hemoglobin 32.6 pg (27.0-31.2); Mean Corpuscular Volume 101.5 fl (81-99); Nucleated Red Blood Cells % 0 %; Platelet Count 208 K/mm3 (142-424); Red Blood Count 3.37 M/mm3 (4.20-5.40); Red Cell Distribution Width-SD 47.0 fL; White Blood Count 5.5 K/mm3 (4.8-10.8)
[2025-07-18 07:46] LABS: Alanine Aminotransferase 12 U/L (12-78); Albumin Level 3.1 g/dl (3.5-5.0); Albumin/Globulin Ratio 1.9 (1.1-1.8); Alkaline Phosphatase 154 U/L (38-126); Anion Gap 3.3 mEq/L (5-15); Aspartate Amino Transferase 21 U/L (14-36); Bilirubin,Total 0.4 mg/dl (0.2-1.3); Blood Urea Nitrogen 28 mg/dl (7-17); Calcium 9.0 mg/dl (8.4-10.2); Carbon Dioxide 32 mmol/L (22.0-30.0); Chloride 105 mmol/L (98-107); Creatinine,Serum 1.00 mg/dl (0.52-1.04); Estimated Glomerular Filt Rate 54 ml/min (>60); GFR (African American) 65 ML/MIN (>60); Globulin 1.6 g/dL (1.3-3.2); Glucose 90 mg/dl (74-100); Iron 72 ug/dL (37-170); Potassium 4.3 mmoL/L (3.5-5.1); Sodium 136 mmol/L (136-145); Total Protein,Serum 4.7 g/dl (6.3-8.2)
[2025-07-18 07:51] LABS: Valproic Acid, (Depakene) 14.5 ug/ml (50-100)
[2025-07-18 08:11] LABS: Total Iron Binding Capacity 239 ug/dL (265-497)
[2025-07-18 08:20] LABS: Ferritin 196 ng/ml (11.1-264)
== END 2025-07-18 23:59 | disposition home or self-care (01) ==
LOC: LAB.DROPOF 07:12
PROVIDERS: PCP Family Medicine; Visit Provider Nurse Practitioner Family
DX: D64.9 Anemia, unspecified (principal); F31.9 Bipolar disorder, unspecified; G62.9 Polyneuropathy, unspecified; I10 Essential (primary) hypertension
CPT/HCPCS: 36415; 80053; 80164; 82728; 83540; 83550; 84075; 84080; 85025

== ENCOUNTER 2025-08-13 09:20 | Outpatient (CLI) | payer MEDICARE, BC, SELFPAY ==
[2025-08-13 09:24] LABS: Coronavirus 19, PCR Not Detected (NotDetected); Influenza A, PCR Not Detected (NotDetected); Influenza B, PCR Not Detected (NotDetected)
== END 2025-08-13 23:59 | disposition home or self-care (01) ==
LOC: LAB.DROPOF 09:21
PROVIDERS: PCP Family Medicine; Visit Provider Nurse Practitioner Family
DX: J06.9 Acute upper respiratory infection, unspecified (principal)
CPT/HCPCS: 87631